=== PATIENT | female | born 1960 | race Caucasian/White ===

== ENCOUNTER 2024-02-09 10:17 | Outpatient (OUT) | payer MEDICARE, MEDICAID, SELFPAY ==
--- NOTE | 2024-02-09 | XR_ITS ---
The [place] [address] Patient Name: BILLY SEXTON MRN: [id number] date: 1960 Sex: F Assigned Patient Location: Current Patient Location: Accession/Order Number: [id number] Exam Date: 02/09/2024 11:00 Report Date: 02/10/2024 07:03 At the request of: BROOKS GONZALES Procedure: XR ankle FRANCESCO min 3V EXAMINATION: XR ankle FRANCESCO min 3V, XR foot FRANCESCO min 3V HISTORY: BILATERAL ANKLE PAIN COMPARISON: No relevant comparison available. FINDINGS: RIGHT FINDINGS: BONES: Prior ankle fusion utilizing a retrograde intramedullary nail extending through the calcaneus talus and tibia. Lucency surrounding the distal portion suggest loosening. Severe degenerative changes of the midfoot and hindfoot with marked bony remodeling and sclerosis consistent with neuropathic osteoarthropathy. Evidence of now removed hardware with multiple screw fragments throughout the midfoot and hindfoot. Fracture of 2 posterior screws extending through the calcaneus. Plantar plate. Single screw transfixing the first interphalangeal joint. Pes planus with plantar rotation of the hindfoot in relation to the midfoot SOFT TISSUES: Diffuse marked soft tissue swelling OTHER: Joint effusion LEFT FINDINGS: BONES: No acute fracture or dislocation. Moderate to severe degenerative changes of the midfoot with bony remodeling. Pes planus. Plantar rotation of the hindfoot in relation to the midfoot. Foreshortening of the first digit with likely removal of the first proximal phalanx. Resection of the fifth toe at the metatarsal phalangeal joint SOFT TISSUES: Negative. No visible soft tissue swelling. OTHER: Negative. 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
--- NOTE | 2024-02-09 | XR_ITS ---
The [place] [id number] Patient Name: BILLY SEXTON MRN: [id number] date: 1960 Sex: F Assigned Patient Location: Current Patient Location: Accession/Order Number: [id number] Exam Date: 02/09/2024 11:00 Report Date: 02/10/2024 07:03 At the request of: BROOKS GONZALES Procedure: XR foot FRANCESCO min 3V EXAMINATION: XR ankle FRANCESCO min 3V, XR foot FRANCESCO min 3V HISTORY: BILATERAL ANKLE PAIN COMPARISON: No relevant comparison available. FINDINGS: RIGHT FINDINGS: BONES: Prior ankle fusion utilizing a retrograde intramedullary nail extending through the calcaneus talus and tibia. Lucency surrounding the distal portion suggest loosening. Severe degenerative changes of the midfoot and hindfoot with marked bony remodeling and sclerosis consistent with neuropathic osteoarthropathy. Evidence of now removed hardware with multiple screw fragments throughout the midfoot and hindfoot. Fracture of 2 posterior screws extending through the calcaneus. Plantar plate. Single screw transfixing the first interphalangeal joint. Pes planus with plantar rotation of the hindfoot in relation to the midfoot SOFT TISSUES: Diffuse marked soft tissue swelling OTHER: Joint effusion LEFT FINDINGS: BONES: No acute fracture or dislocation. Moderate to severe degenerative changes of the midfoot with bony remodeling. Pes planus. Plantar rotation of the hindfoot in relation to the midfoot. Foreshortening of the first digit with likely removal of the first proximal phalanx. Resection of the fifth toe at the metatarsal phalangeal joint SOFT TISSUES: Negative. No visible soft tissue swelling. OTHER: Negative. 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
== END 2024-02-09 10:18 | disposition home or self-care (01) ==
LOC: EC 10:19
PROVIDERS: Visit Provider Podiatrist Foot & Ankle Surgery
DX: M79.672 Pain in left foot (principal); M25.572 Pain in left ankle and joints of left foot; M79.671 Pain in right foot; M25.571 Pain in right ankle and joints of right foot; Z98.890 Other specified postprocedural states
CPT/HCPCS: 73610; 73630

== ENCOUNTER 2024-03-01 08:32 | Outpatient (OUT) | payer MEDICARE, MEDICAID, SELFPAY ==
--- NOTE | 2024-03-01 08:34 | CT_ITS ---
[address] [address] Patient Name: BILLY SEXTON MRN: [facility]:[id number] date: 1960 Sex: F Assigned Patient Location: CT Current Patient Location: CT Accession/Order Number: [id number] Exam Date: 03/01/2024 08:45 Report Date: 03/01/2024 10:18 At the request of: BROOKS GONZALES Procedure: CT ankle RT wo con EXAMINATION: CT ankle RT wo con HISTORY: Charcot, Ankle Fusion Nonunion COMPARISON: 02/09/2024, CT exams 10/14/2023 TECHNIQUE: Multi-planar CT images were created without IV contrast. Dose reduction techniques were achieved by using automated exposure control and/or adjustment of mA and/or kV according to patient size and/or use of iterative reconstruction technique. FINDINGS: BONES: Stable posterior calcaneal osteotomy with bony fusion. Ankle fusion utilizing a retrograde intramedullary jennifer and proximally and distally. Lucency surrounds the jennifer, grossly stable from the prior exam. There is been interval fracture of 2 posterior fixation screws extending from the posterior calcaneus through the distal intramedullary jennifer. Stable remote resection of the fibula. Bone graft material evidenced by heterotopic calcifications. There remains a stable inferior fixation plate extending from the medial inferior talus along the inferior midfoot. There is been interval resection of the dorsal plate and partial removal of the screws. Marked degenerative changes of the midfoot and hindfoot consistent with known neuropathic osteoarthropathy SOFT TISSUES: Diffuse soft tissue swelling EFFUSION: Large ankle effusion OTHER: Negative. CT/CT ankle RT wo con IMPRESSION: Interval fracture of the 2 distal posterior ankle fusion screws fixing the distal intramedullary jennifer Interval removal of the dorsal fixation plate Stable degenerative changes consistent with known neuropathic osteoarthropathy Electronically authenticated by: MAYELA AGUILAR Date: 03/01/2024 10:18
--- NOTE | 2024-03-01 09:30 | CA_ITS ---
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 (right DAYNA 1.08, left DAYNA 1.04) Electronically Signed On 03-01-2024 23:24:31 EDT by VIVEK CALDERA
== END 2024-03-01 08:33 | disposition home or self-care (01) ==
LOC: CT 08:32
PROVIDERS: Visit Provider Podiatrist Foot & Ankle Surgery
DX: R09.89 Other specified symptoms and signs involving the circulatory and respiratory systems (principal); A52.16 Charcot's arthropathy (tabetic); M24.671 Ankylosis, right ankle
CPT/HCPCS: 73700; 93923

== ENCOUNTER 2024-03-03 12:49 | Outpatient (OUT) | payer MEDICARE, MEDICAID, SELFPAY | END 2024-03-03 12:50 | disposition home or self-care (01) | LOC: PST 12:49 | PROVIDERS: Visit Provider Podiatrist Foot & Ankle Surgery | DX: Z01.818 Encounter for other preprocedural examination (principal); E11.610 Type 2 diabetes mellitus with diabetic neuropathic arthropathy ==

== ENCOUNTER 2024-03-09 07:05 | Day surgery (SDC) | payer MEDICARE, MEDICAID, SELFPAY ==
[2024-03-09] VITALS (12 sets, daily range): BP systolic 124–161; BP diastolic 64–75; PULSE 63–91; TEMP 36.3–36.5; O2SAT 89–98; BMI 26.2
--- NOTE | 2024-03-09 | FL_ITS ---
[address] [address] Patient Name: BILLY SEXTON MRN: [id number] date: 1960 Sex: F Assigned Patient Location: [facility] Current Patient Location: [facility] Accession/Order Number: [id number] Exam Date: 03/09/2024 09:50 Report Date: 03/14/2024 07:55 At the request of: BROOKS GONZALES Procedure: FL fluoroscopy <1hr NON-READ EXAM: FL fluoroscopy <1hr NON-READ HISTORY: TECHNIQUE: FINDINGS: Please see Operative Report. Electronically authenticated by: RADIOLOGIST NO Date: 03/14/2024 07:55
[2024-03-09 07:30] LABS: Anion Gap 13.5; BUN Creatinine Ratio 28.3; Calcium 9.8 mg/dL (8.5-10.1); Carbon Dioxide 29.3 mmol/L (21.0-32.0); Chloride 102 mmol/L (98-107); Estimated GFR (African America 51 (>=60); Estimated GFR (Non-African Ame 42 (>=60); Glucose 143 mg/dL (74-106); Potassium 3.8 mmol/L (3.5-5.1); Sodium 141 mmol/L (136-145)
--- NOTE | 2024-03-09 07:30 | ECG_ITS ---
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
--- NOTE | 2024-03-09 08:16 | PC.NURSE ---
Non-weight bearing
[2024-03-09] MEDS: LACTATED RINGER'S SOLUTION 1,000 ML 50 ML IV ×2 (08:17→11:09)
[2024-03-09] MEDS: CLINDAMYCIN PHOSPHATE/D5W 900 MG/50 ML PIGGYBACK 100 MG IV (09:20)
--- NOTE | 2024-03-09 10:19 | P.ORON_ITS ---
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 [place] [facility] [place] [facility] complicated by infection which required removal of hardware from the midfoot, nonunion and need for operative debridement. She has not been on antibiotics for months and has not had wound, redness, swelling or evidence of infection. She was referred to me for possible revision. I related to the patient that she has a very complicated limb threatening issue in with a history of infection and nonunion is concern for chronic osteomyelitis therefore recommended bone biopsy prior to revision planning. I reviewed risks and benefits and all questions were answered to the patient's satisfaction Intraoperative findings: bone of the tibia was of normal color and cortex somewhat sclerotic. Likewise the talus and calcaneus were also healthy appearing and of normal color and quality but not sclerotic or as hard as the tibia. No purulence or evidence of acute infection PROCEDURES IN DETAIL: Patient was identified in pre op and consent was reviewed. Correct side and site were identified and marked. Pre-op antibiotics were started. Patient was brought to OR suite and place on table in a supine position. General anesthesia was administered. Tourniquet applied. Operative extremity was prepped and draped in usual sterile fashion. Formal time-out was performed and the foot/ankle were exsanguinated and tourniquet inflated. utilizing fluoroscopy a 1 cm incision was placed over the distal tibia and a combination sharp and blunt dissection gained access to the distal tibia and periosteum was reflected. A rongeur was used to remove a small portion of the cortical bone allowing a curet to access the medullary portion of the distal tibia metaphysis. Cancellus bone was obtained with curettes which was passed back table as specimen to be sent to microbiology and pathology. Utilizing fluoroscopy a 1 cm incision was placed over the lateral talus and a combination sharp and blunt dissection gained access to the distal tibia and periosteum was reflected. A rongeur was used to remove a small portion of the cortical bone allowing a curet to access the medullary portion of the distal tibia metaphysis. Cancellus bone was obtained with curettes which was passed back table as specimen to be sent to microbiology and pathology. Utilizing fluoroscopy a 1 cm incision was placed over the lateral calcaneus and a combination sharp and blunt dissection gained access to the distal tibia and periosteum was reflected. A rongeur was used to remove a small portion of the cortical bone allowing a curet to access the medullary portion of the distal tibia metaphysis. Cancellus bone was obtained with curettes which was passed back table as specimen to be sent to microbiology and pathology. all surgical sites were irrigated with copious saline then skin was closed with nonabsorbable suture. Tourniquet was deflated with a prompt hyperemic response A dry sterile dressing consisting of Xeroform on the incisions followed by 4 x 4 gauze, ABDs, Kerlix and Yuan wraps were applied. POSTOPERATIVE PLAN: Discharge home under family's care Post op instructions provided verbally and written prescription(s) were placed in chart WBAT operative foot/ankle in [facility] boot I will call the patient once microbiology and pathology results have returned for further planning Anesthesia: General-LMA Surgeon: Zuhair Grubbs Biochemistry Teacher: Mahesh Lozada Estimated blood loss (mL): 10 Pathology: other (bone from tibia, talus and calcaneus) Condition: stable Disposition: PACU
[2024-03-09] MEDS: MICROFIBRILLAR COLLAGEN 1 GM POWDER TOPICAL (10:57)
[2024-03-09] MEDS: BUPIVACAINE HCL 0.5% PF 50 MG/10 ML VIAL 20 ML INJ (11:07)
--- NOTE | 2024-03-09 11:15 | XR_ITS ---
The [address] [address] Patient Name: BILLY SEXTON MRN: [id number] date: 1960 Sex: F Assigned Patient Location: [facility] Current Patient Location: Accession/Order Number: [id number] Exam Date: 03/09/2024 13:28 Report Date: 03/10/2024 06:35 At the request of: JOJO LARA Procedure: XR foot RT min 3V PROCEDURE: XR ankle RT min 3V, XR foot RT min 3V HISTORY: postop xr pacu COMPARISON: XR bilateral ankle and foot 02/09/2024 FINDINGS: BONES:Mechanical fusion of the ankle joint and hindfoot via intramedullary jennifer and locking screws. Prior fracture of the calcaneal screws and multiple screw fragments within mid foot. Stable plate along the plantar medial aspect of the midfoot with prior fracture of the distal screw. Partially large ossification lung dorsal aspect of mid foot. Prior screw placement for fusion of the first toe interphalangeal joint. SOFT TISSUES:Soft tissue swelling anterior to the ankle and trace amount of subcutaneous air. EFFUSION:None visible. OTHER: Negative. XR/XR foot RT min 3V IMPRESSION: 1. Stable surgical changes and advanced degenerative changes. Multiple points of current and prior hardware failure; no new findings. 2. Anterior soft tissue swelling and trace amount subcutaneous air consistent with recent surgery. Electronically authenticated by: JOHN RAUSCH Date: 03/10/2024 06:35
--- NOTE | 2024-03-09 11:15 | XR_ITS ---
The [address] [address] Patient Name: BILLY SEXTON MRN: [id number] date: 1960 Sex: F Assigned Patient Location: [facility] Current Patient Location: Accession/Order Number: [id number] Exam Date: 03/09/2024 13:28 Report Date: 03/10/2024 06:35 At the request of: JOJO LARA Procedure: XR ankle RT min 3V PROCEDURE: XR ankle RT min 3V, XR foot RT min 3V HISTORY: postop xr pacu COMPARISON: XR bilateral ankle and foot 02/09/2024 FINDINGS: BONES:Mechanical fusion of the ankle joint and hindfoot via intramedullary jennifer and locking screws. Prior fracture of the calcaneal screws and multiple screw fragments within mid foot. Stable plate along the plantar medial aspect of the midfoot with prior fracture of the distal screw. Partially large ossification lung dorsal aspect of mid foot. Prior screw placement for fusion of the first toe interphalangeal joint. SOFT TISSUES:Soft tissue swelling anterior to the ankle and trace amount of subcutaneous air. EFFUSION:None visible. OTHER: Negative. XR/XR ankle RT min 3V IMPRESSION: 1. Stable surgical changes and advanced degenerative changes. Multiple points of current and prior hardware failure; no new findings. 2. Anterior soft tissue swelling and trace amount subcutaneous air consistent with recent surgery. Electronically authenticated by: JOHN RAUSCH Date: 03/10/2024 06:35
== END 2024-03-09 13:30 | disposition home or self-care (01) ==
PROVIDERS: Anesthesiology; Visit Provider Podiatrist Foot & Ankle Surgery
PROC: (CPT 01480; principal; 2024-03-09 08:30)
DX: E11.610 Type 2 diabetes mellitus with diabetic neuropathic arthropathy (principal); Z79.4 Long term (current) use of insulin; Z79.84 Long term (current) use of 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 drugs; Z79.899 Other long term (current) drug therapy; J45.909 Unspecified asthma, uncomplicated; M19.90 Unspecified osteoarthritis, unspecified site; Z87.891 Personal history of nicotine dependence; M21.071 Valgus deformity, not elsewhere classified, right ankle; M96.0 Pseudarthrosis after fusion or arthrodesis; T85.848A Pain due to other internal prosthetic devices, implants and grafts, initial encounter; T84.213A Breakdown (mechanical) of internal fixation device of bones of foot and toes, initial encounter
CPT/HCPCS: 01480; 20240 ×2; 20245; 36415; 73610; 73630; 76000; 80048; 87070; 87075; 87102; 87116; 87205; 87206; 88305; 88311; 93005; 99999; J1094; J2704

== ENCOUNTER 2024-03-29 07:21 | Outpatient (OUT) | payer MEDICARE, MEDICAID, SELFPAY ==
--- OUTSIDE RECORDS SUMMARY | 2024-03-29 07:25 | XMS_ITS | CCD ---
Author Organization [facility] Care Team Providers Care Product Manager Medical Device Name Role Phone Janette Collins Unavailable Unavailable Saridakis, Collins Unavailable Unavailable Kira Bennett Unavailable Unavailable Saridakis, Collins E Unavailable Unavailable Saridakis, Collins E Unavailable Unavailable Saridakis, Collins Unavailable Unavailable Dustin, [place] Unavailable Unavailable Saridakis, Collins Anoop Unavailable Unava ilable Saridaalbers, Collins E Primary Care Provider [phone] Jennifer, Dr. Fang Santos Attending U navailable Razzante, Dr. Fang Santos Referring U navailable Debs, Dr. Collins Orellana Primary Care Unavaila ble Razzantsahara, Dr. Fang Santos Admitting U navailable Razzante, Dr. Fang Santos Attending U navailable Richardzante, Dr. Fang Santos Referring U navailable Debs, Dr. Collins Orellana Primary Care Unavaila ble Razzantsahara, Dr. aFng Santos Admitting U navailable Razzante, Dr. Fang Santos Attending U navailable Debs, Dr. Collins Orellana Primary Care Unavaila ble Razzante, Dr. Fang Santos Attending U navailable Debs, Dr. Collins Orellana Primary Care Unavaila ble Razzantsahara, Dr. Fang Santos Attending U navailable Debs, Dr. Collins Orellana Primary Care Unavaila ble Richardzaalphonse, Dr. Fang Santos Attending U navailable Debs, Dr. Collins Orellana Primary Care Unavaila ble Razzantsahara, Dr. Fang Santos Attending U navailable Richardzante, Dr. Fang Santos Referring U navailable Debs, Dr. Collins Orellana Primary Care Unavaila ble Razzaalphonse, Dr. Fang Santos Admitting U navailable Razzante, Dr. Fang Santos Attending U navailable Razzante, Dr. Fang Santos Referring U navailable Debs, Dr. Collins Orellana Primary Care Unavaila ble Razzante, Dr. Fang Santos Admitting U navailable Razzante, Dr. Fang Santos Attending U navailable Razzante, Dr. Fang Santos Referring U navailable Debs, Dr. Collins Orellana Primary Care Unavaila ble Razzante, Dr. Fang Santos Admitting U navailable Janette El, DO, Collins Fernandez Primary Care Provid er Collins Andrews MD Primary Care Provider Collins Andrews MD Primary Care Provider MACARIO SANTOS Attending Unava ilable COLLINS SAVAGE JR E Primary Care Unavaila ble JENNIFER, FANG SANTOS Referring Unava ilable TOM, MACARIO ZUNIGA Referring Unava ilable COLLINS SAVAGE JR Primary Care Unavaila ble DANA GOYAL Attending Unavailable DEBS, COLLINS E Primary Care Unavailable TOM, MACARIO VENCESR Referring Unava ilable DEBS, COLLINS E Primary Care Unavailable MACARIO SANTOS Referring Unava ilable DEBS, COLLINS E Primary Care Unavailable TOM, MACARIO VENCESR Referring Unava ilable DEBS, COLLINS E Primary Care Unavailable MACARIO SANTOSR Referring Unava ilable COLLINS SAVAGE JR E Primary Care Unavaila ble MACARIO SANTOS Referring Unava ilable DEBS, COLLINS E Primary Care Unavailable WILIAM DANIELS Referring Unavailable DEBS, COLLINS E Primary Care Unavailable CLOCARLY, MACARIO VENCESR Referring Unava ilable DEBS, COLLINS E Primary Care Unavailable MACARIO SANTOSR Referring Unava ilable MACARIO SANTOSR Attending Unava ilable LAURIES, COLLINS E Primary Care Unavailable MACARIO SANTOSR Referring Unava ilable DEBS, COLLINS E Primary Care Unavailable MACARIO SANTOSR Referring Unava ilable MACARIO SANTOSR Attending Unava ilable DEBS, COLLINS E Primary Care Unavailable GOYAL, DANA Referring Unavailable DEBS, COLLINS E Primary Care Unavailable GOYAL, DANA Referring Unavailable DEBS, COLLINS E Primary Care Unavailable CLOUGHERTY, MACARIO VENCESR Attending Unava ilable CLOUGHERTY, MACARIO VENCESR Referring Unava ilable DEBS, COLLINS E Primary Care Unavailable GOYAL, DANA Referring Unavailable DEBS, COLLINS E Primary Care Unavailable GOYAL, DANA Referring Unavailable DEBS, COLLINS E Primary Care Unavailable CLOUGHERTY, WATSON ODELL Attending Unava ilable CLOUGHERTY, WATSON ODELL Referring Unava ilable DEBS, COLLINS E Primary Care Unavailable CLOUGHERTY, WATSON ODELL Referring Unava ilable DEBS, COLLINS E Primary Care Unavailable CLOUGHERTY, WATSON ODELL Referring Unava ilable DEBS, COLLINS E Primary Care Unavailable CLOUGHERTY, WATSON ODELL Attending Unava ilable LAURIES, COLLINS E Primary Care Unavailable Lauries Collins CRUMP Primary Care Provider [phone] MACARIO SANTOS Attending Unava ilable CLOUGHERTY, WATSON ODELL Admitting Unava ilable COLLINS SAVAGE JR Primary Care Unavaila ble [employer] Unavailable DEBS, COLLINS E Primary Care Unavailable CLOUGHERTY, WATSON ODELL Referring Unava ilable CLOUGHERTY, WATSON ODELL Attending Unava ilable LEXY, COLLINS E Primary Care Unavailable DEBS, COLLINS E Primary Care Unavailable CLOUGHERTY, WATSON ODELL Attending Unava ilable RAFIAERTY, WATSON ODELL Referring Unava ilable COLLINS SAVAGE JR Primary Care Unavaila ble CLOUGHERTY, WATSON ODELL Referring Unava ilable CLOUGHERTY, WATSON ODELL Attending Unava ilable DEBS, COLLINS E Primary Care Unavailable DEBS, COLLINS E Primary Care Unavailable CLOUGHERTY, WATSON ODELL Referring Unava ilable CLOUGHERTY, WATSON ODELL Attending Unava ilable LEXY, COLLINS E Primary Care Unavailable CLOUGHERTY, WATSON ODELL Admitting Unava ilable CLOUGHERTY, WATSON ODELL Attending Unava ilFLASH Walters Attending Provider [phone] COLLINS ANDREWS Primary Care Unavailable LEXY, COLLINS E Primary Care Unavailable Zuhair Grubbs Admitting Unavailable Zuhair Grubbs Attending Unavailable Allergies Allergy Classification Reported Allergen(s) Allergy Type Date of Onset Reaction(s) Facility (20 sources) Codeine Drug Allergy 8 GI Upset [facility] 1057 Work Phone: (9 sources) Meperidine Drug Allergy [facility] 1057 Work Phone: (20 sources) Meperidine; Translations: [MEPERIDINE (PF)] Drug Allergy 8 Other: See Comments [facility] (20 sources) Morphine; Translations: [MORPHINE] Drug Allergy 1 Itching [facility] (13 sources) Amoxicillin / Clavulanate; Translations: [AMOXICILLIN-PO T CLAVULANATE] Drug Allergy 3 GI Upset [facility] (13 sources) Doxycycline; Translations: [DOXYCYCLINE] Drug Allergy 3 GI [facility] (2 sources) Codeine; Translations: [CODEINE] Drug Allergy 8 [facility] (1 source) ALLERGIES NOT ON FILE; Translations: [ALLERGIES NOT ON FILE] Propensity to adverse reactions (disorder) [facility] Medications Current Medications Medication Drug Class(es) Dates Sig (Normalized) Sig (Original) acetaminophen 325 mg / oxyCODONE hydrochloride 5 mg oral tablet (20 sources) Opioid Agonist Start: 02-29-2024 End: 03-07-2024 take 1 tablet by mouth four times daily as needed for pain oxyCODONE-acetami nophen (PERCOCET) 5-325 mg tablet Indications: Charcot ankle, right Take 1 tablet by mouth four times a day as needed for pain for up to 7 days. 28 tablet 0 02/29/2024 03/07/2024 Active Start: 01-26-2024 End: 02-02-2024 take 1 tablet by mouth four times daily as needed for pain oxyCODONE-acetaminophen (PERCOCET) 5-325 mg tablet Indications: Charcot ankle, right Take 1 tablet by mouth four times a day as needed for pain for up to 7 days. 28 tablet 0 01/26/2024 02/02/2024 Active Start: 01-11-2024 End: 01-18-2024 take 1 tablet by mouth four times daily as needed for pain oxyCODONE-acetaminophen (PERCOCET) 5-325 mg tablet Indications: Charcot ankle, right Take 1 tablet by mouth four times a day as needed for pain for up to 7 days. 28 tablet 0 01/11/2024 01/18/2024 Active Start: 12-29-2023 End: 01-05-2024 take 1 tablet by mouth four times daily as needed for pain oxyCODONE-acetaminophen (PERCOCET) 5-325 mg tablet Indications: Charcot ankle, right Take 1 tablet by mouth four times a day as needed for pain for up to 7 days. 28 tablet 0 12/29/2023 01/05/2024 Active Start: 12-16-2023 End: 12-23-2023 take 1 tablet by mouth four times daily as needed for pain oxyCODONE-acetaminophen (PERCOCET) 5-325 mg tablet Indications: Charcot ankle, right Take 1 tablet by mouth four times a day as needed for pain for up to 7 days. 28 tablet 0 12/16/2023 12/23/2023 Active Start: 06-21-2023 End: 07-21-2023 take 1 tablet by mouth every six hours as needed for pain oxyCODONE-acetaminophen (PERCOCET) 5-325 mg tablet Indications: Charcot ankle, right Take 1 tablet by mouth every 6 hours as needed for pain. 30 tablet 0 07/07/2023 07/21/2023 Discontinued Start: 06-03-2023 End: 06-17-2023 take 1 tablet by mouth every six hours as needed for pain oxyCODONE-acetaminophen (PERCOCET) 5-325 mg tablet Indications: Charcot ankle, right Take 1 tablet by mouth every 6 hours as needed for pain. 30 tablet 0 06/03/2023 06/17/2023 Discontinued Start: 05-25-2023 End: 06-03-2023 take 1 tablet by mouth every six hours as needed for arthritis and arthritis oxyCODONE-acetaminophen (PERCOCET) 5-325 mg tablet Indications: Arthritis Take 1 tablet by mouth four times daily as needed for pain. 40 tablet 0 05/25/2023 06/03/2023 Discontinued Start: 05-17-2023 take 1 tablet by destiney th every six hours as needed for arthritis and arthritis oxyCODONE-acetaminophen (PERCOCET) 5-325 mg tablet Indications: Arthritis Take 1 tablet by mouth four times daily as needed for pain. 40 tablet 0 05/17/2023 Active Comment on above: Take 1 tablet by destiney th four times daily as needed for pain. Take 1 tablet by destiney every 6 hours as needed for pain. Take 1 tablet by destiney th four times a day as needed for pain for up to 7 days. Completed/Discontinued Medications Medication Drug Class(es) Dates Sig (Normalized) Sig (Original) acetaminophen 300 mg / HYDROcodone bitartrate 7.5 mg oral tablet (10 sources) Opioid Agonist Start: 04-24-2014 HYDROCODONE-ACETA MINOPHEN 7.5-300 mg tab [id number] 200 actuat albuterol 0.09 mg/actuat metered dose inhaler (20 sources) beta2-Adrenergic Agonist Start: 09-13-2023 take 1-2 puff(s) by mouth every four hours as needed albuterol HFA (PROVENTIL HFA, VENTOLIN HFA) 90 mcg/actuation inhaler inhale 1 to 2 puffs by mouth every 4 hours as needed 0 09/13/2023 Active Start: 02-22-2015 take 2 puff(s) by mo [facility] four times daily as needed Ventolin HFA 108 (90 Base) MCG/ACT Inhalation Aerosol Solution INHALE TWO PUFF BY MOUTH FOUR TIMES A DAY NEEDED Quantity: 1 Refills: 6 Collins Savage DO Start : 22-Feb-2015 Active 18 GM Inhaler albuterol HFA (P ROVENTIL HFA, VENTOLIN HFA) 90 mcg/actuation inhaler Inhale 2 Puffs as instructed as needed. 0 Active Comment on above: Inhale 2 Puffs as in structed as needed. inhale 1 to 2 puffs by mouth every 4 hours as needed albuterol HFA (VENTOLIN HFA) 90 mcg/Actuation INHALATION inhaler (1 source) albuterol HFA (VENTOLIN HFA) 90 mcg/Actuation INHALATION inhaler Inhale 2 Puffs as instructed as needed. 0 Active Comment on above: Inhale 2 Puffs as in structed as needed. Ascorbic Acid (5 sources) Vitamin C ascorbic acid (VITAMIN C ORAL) Take by mouth. 0 Active Comment on above: Take by mouth. aspirin 81 mg delayed release oral tablet (15 sources) Platelet Aggregation Inhibitor, Nonsteroidal Anti-inflammatory Drug Start: 05-17-20 End: 06-16-20 23 take 1 tablet by mouth once daily aspirin, enteric coated (ADULT LOW DOSE ASPIRIN) 81 mg EC tablet Take 1 tablet by mouth once daily. 30 tablet 0 05/17/2023 Active Comment on above: Take 1 tablet by destiney once daily. azithromycin 250 mg oral tablet (4 sources) Macrolide Antimicrobial Start: 11-20-19 Azithromycin 250 MG Oral Tablet Take 2 tablets today, then 1 tablet daily for 4 days Quantity: 1 Refills: 0 Collins Savage DO Start : 20-Nov-2019 Active 6 Tablet Pack biotin 10 mg oral capsule (20 sources) Biotin 10,000 mc g cap Take by mouth. 0 Active Biotin CAPS Refi lls: 0 DO Active Biotin CAPS Refi lls: 0 Active Comment on above: Take by mouth. 60 actuat budesonide 0.16 mg/actuat / formoterol fumarate 0.0045 mg/actuat metered dose inhaler (20 sources) Corticosteroid, beta2-Adrenergic Agonist Start: 02-22-2015 take 2 puff(s) by mouth twice daily Symbicort 160-4.5 MCG/ACT Inhalation Aerosol INHALE 2 PUFFS TWICE DAILY. RINSE MOUTH AFTER USE. Quantity: 1 Refills: 3 Collins Savage DO Start : 22-Feb-2015 Active 10.2 GM Inhaler take 2 puff(s) by in halation twice daily as needed budesonide-formoterol (SYMBICORT) 160-4. 5 mcg/actuation inhaler Inhale 2 Puffs as instructed two times a day. Only uses PRN 0 Active budesonide-formo terol (SYMBICORT) 160-4.5 mcg/actuation inhaler Inhale 2 Puffs as instructed as needed. 0 Active budesonide-formo terol (SYMBICORT) 160-4.5 mcg/Actuation INHALATION inhaler Inhale 2 Puffs as instructed as needed. 0 Active Comment on above: Inhale 2 Puffs as in structed as needed. Inhale 2 Puffs as in structed two times a day. Only uses PRN cephalexin 500 mg oral capsule (14 sources) Cephalosporin Antibacterial Start: 04-24-20 End: 05-12-20 take 1 capsule by mouth three times daily cephALEXin 500 mg capsule Take 1 capsule by mouth three times daily. 21 capsule 0 04/24/2014 05/12/2023 Discontinued Comment on above: Take 1 capsule by mo [facility] three times daily. cholecalciferol 0.025 mg oral capsule (20 sources) Vitamin D take 1 capsule by mouth once daily Cholecalciferol, Vitamin D3, 25 mcg (1,000 unit) cap Take 1,000 Units by mouth once daily. 0 Active Cholecalciferol, Vitamin D3, (VITAMIN D) 25 mcg (1,000 unit) cap Take 1,000 Units by mouth once daily. 0 Active Comment on above: Take 1,000 Units by mouth once daily. cinnamon bark 500 mg oral capsule (1 source) take 1 capsule by mouth four times daily Cinnamon 500 MG Oral Capsule TAKE 1 CAPSULE 4 TIMES DAILY Refills: 0 Active CINNAMON BARK-CHROMIUM PICOLIN ORAL (20 sources) take 2000 mg by mouth twice daily CINNAMON BARK-CHROMIUM PICOLIN ORAL Take 2,000 mg by mouth twice daily. 0 Active Comment on above: Take 2,000 mg by [facility] twice daily. cyclobenzaprine hydrochloride 10 mg oral tablet (14 sources) Muscle Relaxant Start: 06-21-20 End: 08-05-20 take 0.5 tablet by mouth three times daily cyclobenzaprine (FLEXERIL) 10 mg tablet Take 0.5 tablets by mouth three times daily. 40 tablet 0 06/21/2023 08/05/2023 Discontinued Start: 05-17-2023 End: 06-17-2023 take 0.5 tablet by mouth three times daily cyclobenzaprine (FLEXERIL) 10 mg tablet Take 0.5 tablets by mouth three times daily. 40 tablet 0 05/17/2023 06/17/2023 Discontinued Comment on above: Take 0.5 tablets by mouth three times daily. Disability Placard (9 sources) Start: 03-21-20 15 Disability Placard Disability Placard 5 year term Quantity: 1 Refills: 0 Collins Savage DO Start : 21-Mar-2015 Active fenofibrate 145 mg oral tablet (5 sources) Peroxisome Proliferator Receptor alpha Agonist Start: 10-26-20 23 take 1 tablet by mouth once fenofibrate nanocrystallized (TRICOR) 145 mg tablet Take 1 tablet by mouth every afternoon. 0 10/26/2023 Active Comment on above: Take 1 tablet by destiney th every afternoon. FLUoxetine 10 mg oral capsule (20 sources) Serotonin Reuptake Inhibitor Start: 07-05-20 17 take 1 capsule by mouth once daily FLUoxetine (PROZAC) 10 mg capsule Take 10 mg by mouth once daily. 0 07/05/2017 Active Start: 07-05-2017 FLUoxetine (SD OZAC) 40 mg capsule Take by mouth. 0 07/05/2017 Active Comment on above: Take by mouth. Take 10 mg by mouth once daily. 30 actuat fluticasone furoate 0.2 mg/actuat / vilanterol 0.025 mg/actuat dry powder inhaler (3 sources) Corticosteroid, beta2-Adrenergic Agonist Start: 0 take 1 puff(s) by inhalation once daily Breo Ellipta 200-25 MCG/INH Inhalation Aerosol Powder Breath Activated INHALE 1 PUFFS Daily Quantity: 1 Refills: 9 Collins Savage DO Start : 12-Mar-2020 Active 60 Each Pack gabapentin 800 mg oral tablet (20 sources) Anti-epileptic Agent Start: 1 take 2 tablets by mouth at bedtime gabapentin (NEURONTIN) 800 mg tablet Indications: neuropathic pain Take 800 mg by mouth. 1 tablet in the morning, 1 tablet in the afternoon, and 2 tablets at bedtime 0 02/24/2021 Active Start: 02-24-2021 gabapentin 300 mg ORAL capsule Indications: neuropathic pain Take 800 mg by mouth once daily. PATIENT STATES SHE TAKES ONE TO FOUR TIMES A DAY 0 02/24/2021 Active Start: 01-31-2016 take 1 tablet by destiney th four times daily Gabapentin 800 MG Oral Tablet TAKE 1 TABLET BY MOUTH 4 TIMES DAILY Quantity: 120 Refills: 1 Collins Savage DO Start : 31-Jan-2016 Active Start: 04-12-2014 take 4 capsules by m outh twice daily in the evening gabapentin 300 mg ORAL capsule Indications: neuropathic pain Take 300 mg by mouth twice daily. PATIENT STATES SHE TAKES TWO IN AM AND FOUR IN THE EVENING Indications: NEUROPATHIC PAIN 0 04/12/2014 Active Comment on above: Take 300 mg by mouth twice daily. PATIENT STATES SHE TAKES TWO IN AM AND FOUR IN THE EVENING Indications: NEUROPATHIC PAIN Take 800 mg by mouth once daily. PATIENT STATES SHE TAKES ONE TO FOUR TIMES A DAY Take 800 mg by mouth . 1 tablet in the morning, 1 tablet in the afternoon, and 2 tablets at bedtime hydroCHLOROthiazide 25 mg oral tablet (20 sources) Thiazide Diuretic Star t: 05-15 14 take 1 tablet by mouth once daily hydroCHLOROthiazide 25 MG Oral Tablet take 1 tablet by mouth once daily Quantity: 30 Refills: 9 Collins Savage DO Start : 01-Jun-2014 Active Comment on above: Take 25 mg by mouth once daily. ibuprofen 200 mg oral tablet (1 source) Nonsteroidal Anti-inflammatory Drug take 2 tablets by mouth every six hours as needed ibuprofen (ADVIL) 200 mg ORAL tablet Take 400 mg by mouth every 6 hours as needed. 0 Active Comment on above: Take 400 mg by mouth every 6 hours as needed. insulin aspart protamine, human 70 unt/ml / insulin aspart, human 30 unt/ml injectable suspension (9 sources) Insulin Analog Star t: 04-16 21 insulin 70-30 aspart protamine-aspart (NOVOLOG MIX 70/30) 100 units/mL injection INJECT 26 UNITS TWICE DAILY SUBCUTANEOUSLY 0 05/08/2021 Active Comment on above: INJECT 26 UNITS TWIC E DAILY SUBCUTANEOUSLY insulin glargine 100 unt/ml injectable solution (20 sources) Insulin Analog Star t: 04-16 14 inject 70 [IU] by subcutaneous injection once daily Lantus 100 UNIT/ML Subcutaneous Solution INJECT 70 UNITS SUBCUTANEOUSLY DAILY Quantity: 3 Refills: 10 Collins Savage DO Start : 10-May-2014 Active 10 ML Vial Start: 11-20-2013 LANTUS 100 uni t/mL injection Indications: diabetes mellitus 55 Units daily at bedtime. 0 11/20/2013 Active Start: 11-20-2013 LANTUS 100 uni t/mL injection Indications: diabetes mellitus 70 Units daily at bedtime. Indications: DIABETES MELLITUS 0 11/20/2013 Active Comment on above: 70 Units daily at be dtime. Indications: DIABETES MELLITUS 55 Units daily at be dtime. insulin lispro protamin/lispro (HUMALOG MIX 75-25,U-100,INSULN SUBCUTANEOUS) (20 sources) insulin lispro protamin/lispro (HUMALOG MIX 75-25,U-100,INSULN SUBCUTANEOUS) Inject 20 Units subcutaneously three times daily with meals. 0 Active Comment on above: Inject 20 Units subc utaneously three times daily with meals. INSULIN REGULAR, HUMAN (HUMULIN R INJECTION) (10 sources) INSULIN REGULAR, HUMAN (HUMULIN R INJECTION) 20 Units by INJECTION(UNSPECIFIE D PARENTERAL ROUTES) route three times daily with meals. 0 Active Comment on above: 20 Units by INJECTIO N(UNSPECIFIED PARENTERAL ROUTES) route three times daily with meals. INSULIN SYRINGE-NEEDLE U-100 1 mL 29 x 1/2 syrg (20 sources) Start: 2012 INSULIN SYRINGE-NEEDLE U-100 1 mL 29 x 1/2 syrg insulin human, isophane 70 unt/ml / regular insulin, human 30 unt/ml injectable suspension (9 sources) Insulin Start: 2013 inject 20 [IU] by subcutaneous injection three times daily, then inject 100 [IU] by subcutaneous injection HumuLIN 70/30 (70-30) 100 UNIT/ML Subcutaneous Suspension Inject 20 units subcutaneously three times daily Quantity: 3 Refills: 10 Collins Savage DO Start : 05-Jul-2014 Active 10 ML Vial levothyroxine sodium 0.1 mg oral tablet (20 sources) l-Thyroxine Start: 2013 LEVOTHYROXINE 100 mcg tablet 100 mcg daily before breakfast. 0 12/11/2013 Active Comment on above: 100 mcg daily before breakfast. meloxicam 15 mg oral tablet (20 sources) Nonsteroidal Anti-inflammatory Drug Start: 2023 take 1 tablet by mouth once daily meloxicam (MOBIC) 15 mg tablet Take 1 tablet by mouth once daily 30 tablet 0 11/22/2023 Active Start: 08-05-2023 End: 10-26-2023 take 1 tablet by mouth once daily meloxicam (MOBIC) 15 mg tablet Take 1 tablet by mouth once daily 30 tablet 0 10/26/2023 Active Start: 05-13-2021 End: 05-07-2023 take 1 tablet by mouth once daily meloxicam (MOBIC) 15 mg tablet Indications: Greater trochanteric bursitis of right hip Take 1 tablet by mouth once daily. 28 tablet 0 05/13/2021 05/07/2023 Discontinued (Course of therapy completed) Start: 12-11-2013 MELOXICAM 15 m g tablet Comment on above: Take 1 tablet by destiney th once daily. Take 1 tablet by destiney th once daily metFORMIN hydrochloride 1000 mg oral tablet (20 sources) Biguanide Start: 03-28-2014 take 1 tablet by mouth every twelve hours metFORMIN HCl - 1000 MG Oral Tablet TAKE 1 TABLET EVERY 12 HOURS. Quantity: 60 Refills: 10 Collins Savage DO Start : 28-Mar-2014 Active take 1 tablet by destiney th twice daily at mealtime metFORMIN 1,000 mg ORAL tablet Take 1,00 0 mg by mouth twice daily with meals. 0 Active Comment on above: Take 1,000 mg by destiney th twice daily with meals. omega-3 acid ethyl esters (fdc) 1000 mg oral capsule (20 sources) omega-3 acid eth yl esters (LOVAZA) 1 gram capsule Take 1 g by mouth twice daily. 0 Active omega-3 acid eth yl esters (LOVAZA) 1 gram capsule Take by mouth. 0 Active Comment on above: Take by mouth. Take 1 g by mouth tw ice daily. QUEtiapine 50 mg oral tablet (9 sources) Atypical Antipsychotic Start: 03-21-20 15 take 2 tablets by mouth once daily QUEtiapine Fumarate 50 MG Oral Tablet TAKE 2 TABLET Daily Quantity: 60 Refills: 10 Collins Savage DO Start : 21-Mar-2015 Active traMADol hydrochloride 50 mg oral tablet (20 sources) Opioid Agonist Start: 09-06-20 End: 12-29-19 24 take 1 tablet by mouth every six hours as needed for pain traMADol (ULTRAM) 50 mg tablet Indications: Post-op pain Take 1 tablet by mouth every 6 hours as needed for pain. for pain. 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 for pain. 28 tablet 0 08/05/2023 09/06/2023 Discontinued Start: 07-21-2023 End: 08-05-2023 take 1 tablet by mouth every six hours as needed for pain traMADol (ULTRAM) 50 mg tablet Indications: Charcot ankle, right Take 1 tablet by mouth every 6 hours as needed for pain. for pain. 28 tablet 0 07/21/2023 08/05/2023 Discontinued Start: 03-21-2015 take 2 tablets by mo uth four times daily traMADol HCl - 50 MG Oral Tablet TAKE 2 TABLETS 4 TIMES DAILY. Quantity: 240 Refills: 1 Collins Savage DO Start : 21-Mar-2015 Active Comment on above: Take 1 tablet by destiney th every 6 hours as needed for pain. for pain. Take 1 tablet by destiney th every 4 hours as needed for pain. for pain. Take 1 tablet by destiney th every 6 hours as needed for pain. traZODone hydrochloride 50 mg oral tablet (10 sources) Serotonin Reuptake Inhibitor Start: take 1 tablet by mouth once daily at bedtime TRAZODONE 50 mg tablet Take 50 mg by mouth daily at bedtime. 0 12/14/2013 Active Comment on above: Take 50 mg by mouth daily at bedtime. turmeric extract 500 mg oral capsule (20 sources) TURMERIC ORAL Ta ke 500 mg by mouth. 0 Active turmeric ([facility]) Comment on above: Take 500 mg by mouth . vit B complex no.12/niacin,B3, (VITAMIN B COMPLEX NO.12-NIACIN ORAL) (20 sources) vit B complex no.12/niacin,B3, (VITAMIN B COMPLEX NO.12-NIACIN ORAL) Take 2,500 mg by mouth. 0 Active Comment on above: Take 2,500 mg by destiney th. VITAMIN A ORAL (5 sources) VITAMIN A ORAL T alberto by mouth. 0 Active Comment on above: Take by mouth. VITAMIN K2 ORAL (5 sources) VITAMIN K2 ORAL Take by mouth. 0 Active Comment on above: Take by mouth. zolpidem tartrate 5 mg oral tablet (20 sources) gamma-Aminobutyric Acid-ergic Agonist Start: 04-24-2014 take 1 tablet by mouth every twenty-four hours as needed zolpidem (AMBIEN) 5 mg tablet Take 1 tablet by mouth at bedtime as needed (for insomnia.). 7 tablet 0 04/24/2014 Active Start: 12-11-2013 take 1 tablet by destiney th once daily at bedtime ZOLPIDEM 10 mg tab Take 10 mg by mouth daily at bedtime. 0 12/11/2013 Active Comment on above: Take 10 mg by mouth daily at bedtime. Take 1 tablet by destiney th at bedtime as needed (for insomnia.). Problems Active Problems Problem Classification Problem Date Documented Da te Episodic/Chronic Acquired foot deformities (1 source) Other hammer toe(s) (acquired), right foot; Translations: [Other hammer toe(s) (acquired), right foot] Onset: 08-21-2022 Chronic Acquired foot deformities (20 sources) Acquired deformity of joint of big toe; Translations: [Valgus deformity, not elsewhere classified, right ankle] Onset: 06-05-2022 12-21-2013 Episodic Acute bronchitis (4 sources) Acute bronchitis; Translations: [Acute bronchitis] Episodic Anxiety disorders (20 sources) Anxiety; Translations: [Mixed anxiety and depressive disorder] Onset: 08-21-2022 05-17-2023 Chronic Asthma (20 sources) Unspecified asthma, uncomplicated; Translations: [Intermittent asthma] Onset: 03-22-2023 Chronic Blindness and vision defects (2 sources) Unspecified visual loss; Translations: [Visual impairment] Onset: 03-22-2023 03-29-2023 Chronic Chronic kidney disease (1 source) Chronic kidney disease, unspecified; Translations: [Chronic kidney disease, unspecified] Onset: 03-17-2023 Chronic Chronic obstructive pulmonary disease and bronchiectasis (3 sources) Chronic bronchitis; Translations: [Chronic bronchitis] Chronic Chronic ulcer of skin (12 sources) Ulcer of foot; Translations: [Non-pressure chronic ulcer of right heel and midfoot with fat layer exposed] Onset: 08-21-2022 Chronic Complication of device; implant or graft (7 sources) Breakdown (mechanical) of other internal orthopedic devices, implants and grafts, initial encounter; Translations: [Breakdown (mechanical) of internal fixation device of bones of foot and toes, initial encounter] Onset: 08-21-2022 Episodic Diabetes mellitus with complications (20 sources) Type II diabetes mellitus uncontrolled; Translations: [Diabetic foot ulcer] Onset: 12-21-2013 12-21-2013 Chronic Diabetes mellitus without complication (15 sources) Type 2 diabetes mellitus; Translations: [Type 2 diabetes mellitus without complications] Onset: 08-10-2022 11-03-2023 Chronic Diabetes or abnormal glucose tolerance complicating ; childbirth; or the puerperium (10 sources) Diabetes mellitus of mother, complicating , childbirth, or the puerperium, unspecified as to episode of care or not applicable; Translations: [Diabetes mellitus of mother, complicating , childbirth, or the puerperium, unspecified as to episode of care(648.00)] 12-21-2013 Chronic Disorders of lipid metabolism (18 sources) Hypercholesterolemia ; Translations: [Hyperlipidemia, unspecified] Onset: 03-22-2023 03-29-2023 Chronic Essential hypertension (20 sources) Hypertensive disorder; Translations: [Essential (primary) hypertension] Onset: 08-21-2022 12-21-2013 Chronic Fracture of lower limb (2 sources) Nondisplaced fracture of body of right calcaneus, sequela; Translations: [Unspecified fracture of right foot, subsequent encounter for fracture with nonunion] Onset: 01-05-2023 Episodic Hypertension with complications and secondary hypertension (1 source) Hypertensive chronic kidney disease with stage 1 through stage 4 chronic kidney disease, or unspecified chronic kidney disease; Translations: [Hypertensive chronic kidney disease w stg 1-4/unsp chr kdny] Onset: 03-17-2023 Chronic Joint disorders and dislocations; trauma-related (11 sources) Subluxation of right ankle joint, initial encounter; Translations: [Subluxation of right ankle joint, subsequent encounter] Onset: 08-10-2022 Episodic Joint disorders and dislocations; trauma-related (3 sources) Subluxation of left ankle joint, subsequent encounter; Translations: [Subluxation of ankle joint] Onset: 03-22-2023 03-29-2023 Episodic Menopausal disorders (9 sources) Atrophy of vagina; Translations: [Vaginal atrophy] Chronic Mood disorders (10 sources) Mood disorder; Translations: [Depressive disorder] 03-29-2023 Chronic Mood disorders (1 source) Mood disorders; Translations: [Depression, unspecified] Onset: 03-22-2023 Nutritional deficiencies (2 sources) Vitamin D deficiency, unspecified; Translations: [Vitamin D deficiency, unspecified] Onset: 11-26-2023 Chronic Osteoarthritis (20 sources) Arthritis; Translations: [Unspecified osteoarthritis, unspecified site] Onset: 05-06-2021 12-21-2013 Chronic Other acquired deformities (3 sources) Contracture, right ankle; Translations: [Contracture, right ankle] Onset: 01-05-2023 Chronic Other acquired deformities (1 source) Ankle joint deformity; Translations: [Unspecified acquired deformity of right lower leg] Episodic Other aftercare (1 source) senior living (current) use of 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 drugs; Translations: [senior living (current) use of 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 drugs] Onset: 03-22-2023 Episodic Other aftercare (2 sources) senior living (current) use of insulin; Translations: [runner out (current) use of insulin] Onset: 03-17-2023 Episodic Other aftercare (1 source) Other alf (current) drug therapy; Translations: [Other alf (current) drug therapy] Onset: 03-17-2023 Episodic Other aftercare (1 source) Long-term current use of 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 medication; Translations: [runner out (current) use of 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 drugs] 03-29-2023 Episodic Other bone disease and musculoskeletal deformities (6 sources) Bone necrosis; Translations: [Osteonecrosis, unspecified] Onset: 11-25-2023 Chronic Other bone disease and musculoskeletal deformities (1 source) Osteonecrosis, unspecified; Translations: [Osteonecrosis (HCC)] Onset: 11-25-2023 Chronic Other bone disease and musculoskeletal deformities (3 sources) Avascular necrosis of bone; Translations: [Osteonecrosis, unspecified] Onset: 11-25-2023 11-25-2023 Chronic Other bone disease and musculoskeletal deformities (2 sources) Disorder of bone; Translations: [Disorder of bone, unspecified] 07-02-2023 Episodic Other circulatory disease (9 sources) H/O: hypertension; Translations: [History of hypertension] Episodic Other connective tissue disease (9 sources) Foot pain; Translations: [Neuropathic pain of both feet] Episodic Other ear and sense organ disorders (1 source) Unspecified hearing loss, unspecified ear; Translations: [Unspecified hearing loss, unspecified ear] Onset: 03-22-2023 Chronic Other ear and sense organ disorders (1 source) Hearing loss; Translations: [Unspecified hearing loss, unspecified ear] 03-29-2023 Chronic Other gastrointestinal disorders (20 sources) Irritable bowel syndrome; Translations: [Irritable bowel syndrome without diarrhea] 12-21-2013 Chronic Other gastrointestinal disorders (1 source) Irritable bowel syndrome without diarrhea; Translations: [Irritable bowel syndrome without diarrhea] Onset: 03-22-2023 Chronic Other nervous system disorders (9 sources) Peripheral nerve disease ; Translations: [Peripheral neuropathy] Chronic Other nervous system disorders (20 sources) Neuropathy; Translations: [Polyneuropathy, unspecified] 12-21-2013 Chronic Other nervous system disorders (1 source) Polyneuropathy, unspecified; Translations: [Polyneuropathy, unspecified] Onset: 08-10-2022 Chronic Other nervous system disorders (9 sources) Difficulty walking; Translations: [Difficulty in walking, not elsewhere classified] Onset: 05-06-2021 05-06-2021 Chronic Other nervous system disorders (3 sources) Postoperative pain ; Translations: [Other acute postprocedural pain] 09-06-2023 Episodic Other non-traumatic joint disorders (6 sources) Charcot's joint, right ankle and foot; Translations: [Charcot's joint, right ankle and foot] Onset: 01-05-2023 Chronic Other non-traumatic joint disorders (20 sources) Charcot's arthropathy; Translations: [Charcot's joint, right ankle and foot] Onset: 05-17-2023 Chronic Other non-traumatic joint disorders (1 source) Osteophyte, right foot; Translations: [Osteophyte, right foot] Onset: 01-08-2023 Episodic Other nutritional; endocrine; and metabolic disorders (9 sources) H/O: diabetes mellitus; Translations: [History of diabetes mellitus] Episodic Other nutritional; endocrine; and metabolic disorders (9 sources) H/O: raised blood lipids; Translations: [History of hyperlipidemia] Episodic Other screening for suspected conditions (not mental disorders or infectious disease) (16 sources) Thyroid function tests abnormal; Translations: [Cancer cervix - screening done] Episodic Other skin disorders (1 source) Hypertrophic scar; Translations: [Hypertrophic scar] Onset: 01-08-2023 Episodic Peripheral and visceral atherosclerosis (8 sources) Peripheral vascular disease, unspecified; Translations: [Peripheral vascular disease, unspecified] Onset: 01-08-2023 Chronic Residual codes; unclassified (2 sources) Orthopedic hardware in situ; Translations: [Presence of functional implant, unspecified] Chronic Residual codes; unclassified (20 sources) Insomnia; Translations: [Other insomnia] Onset: 05-17-2023 05-17-2023 Chronic Residual codes; unclassified (1 source) Presence of functional implant, unspecified; Translations: [Retained orthopedic hardware] Onset: 11-10-2023 Chronic Residual codes; unclassified (9 sources) Reduced libido; Translations: [Decreased libido] Episodic Residual codes; unclassified (18 sources) Insomnia; Translations: [Insomnia] Episodic Residual codes; unclassified (9 sources) Postmenopausal state; Translations: [Post-menopausal] Episodic Residual codes; unclassified (4 sources) Edema of lower extremity; Translations: [Lower extremity edema] Episodic Residual codes; unclassified (1 source) Pain; Translations: [Pain] Episodic Residual codes; unclassified (4 sources) Presence of other specified devices; Translations: [Other postprocedural status] Onset: 03-17-2023 Episodic Superficial injury; contusion (4 sources) Insect bite of lower limb; Translations: [Insect bite of left lower leg, initial encounter] Episodic Thyroid disorders (20 sources) Hypothyroidism; Translations: [Hypothyroidism, unspecified] Onset: 03-22-2023 05-17-2023 Chronic Unclassified (1 source) Established Patient Onset: 05-03-2023 Past or Other Problems Problem Classification Problem Date Documented Da te Episodic/Chronic Allergic reactions (10 sources) Eczema; Translations: [Allergy status to penicillin] Onset: 08-21-2022 Episodic Other acquired deformities (20 sources) Deformity of lower limb; Translations: [Other specified acquired deformities of right lower leg] Onset: 05-06-2021 05-06-2021 Episodic Other acquired deformities (1 source) Unspecified acquired deformity of right lower leg; Translations: [Deformity of metatarsal bone of right foot] Onset: 09-06-2023 Episodic Other bone disease and musculoskeletal deformities (2 sources) Disorder of bone, unspecified; Translations: [Disease of bone] Onset: 07-02-2023 Episodic Other connective tissue disease (2 sources) Spontaneous rupture of extensor tendons, right lower leg; Translations: [Spontaneous rupture of extensor tendons, right lower leg] Onset: 08-21-2022 Episodic Other connective tissue disease (1 source) Posterior tibial tendinitis, right leg; Translations: [Posterior tibial tendinitis, right leg] Onset: 08-13-2022 Episodic Other connective tissue disease (20 sources) Dysfunction of posterior tibial tendon; Translations: [Posterior tibial tendinitis, unspecified leg] Onset: 05-06-2021 05-06-2021 Episodic Other non-traumatic joint disorders (3 sources) Pain in right ankle and joints of right foot; Translations: [Pain in right ankle] Onset: 06-05-2022 Episodic Other upper respiratory infections (14 sources) Acute sinusitis; Translations: [H/O: infectious disease] Onset: 11-03-2023 11-03-2023 Episodic Screening and history of mental health and substance abuse codes (20 sources) Personal history of nicotine dependence; Translations: [Ex-smoker] Onset: 03-22-2023 Episodic Skin and subcutaneous tissue infections (20 sources) Paronychia; Translations: [Cellulitis] Onset: 04-22-2023 Episodic Spondylosis; intervertebral disc disorders; other back problems (10 sources) Lumbosacral neuritis; Translations: [Sciatica, unspecified side] Onset: 08-21-2022 Episodic Sprains and strains (12 sources) Lumbosacral strain; Translations: [Strain of muscle(s) and tendon(s) of anterior muscle group at lower leg level, right leg, initial encounter] Onset: 06-05-2022 Episodic Unclassified (18 sources) Drug therapy finding; Translations: [High risk medication use] Unclassified (20 sources) Patient encounter status; Translations: [Osteoporosis screening] NEGATED: Highlighted row has not occurred!Residual codes; unclassified (20 sources) Disease Episodic Results Test Name Value Interpretation Reference Range Facility Comprehensive metabolic 2000 panelon 03-13-2024 Albumin BCP dye [Mass/Vol] 4.7 g/dL Normal 3.4-5.0 [facility] Comment on above: Performed By: #### 2 4323-8 #### ADAM CALDERON ([id number]) [facility] ([facility]) [place] [address] ALP [Catalytic activity/Vol] 59 U/L Normal 33-136 [facility] Comment on above: Performed By: #### 2 4323-8 #### ADAM CALDERON ([id number]) [facility] ([facility]) [place] [address] ALT With P-5'-P [Catalytic activity/Vol] 23 U/L Normal 7-45 [facility] Comment on above: Result Comment: Shaista ents treated with Sulfasalazine may generate falsely decreased results for ALT. Performed By: #### 2 4323-8 #### ADAM CALDERON ([id number]) [facility] ([facility]) [address] [place] [address] Anion gap [Moles/Vol] 17 mmol/L Normal 10-20 [facility] Comment on above: Performed By: #### 2 4323-8 #### ADAM CALDERON ([id number]) [facility] ([facility]) [address] [place] [address] AST With P-5'-P [Catalytic activity/Vol] 16 U/L Normal 9-39 [facility] Comment on above: Performed By: #### 2 4323-8 #### ADAM CALDERON ([id number]) [facility] ([facility]) [address] [place] [address] Bilirubin [Mass/Vol] 0.3 mg/dL Normal 0.0-1.2 [facility] Comment on above: Performed By: #### 2 4323-8 #### ADAM CALDERON ([id number]) [facility] ([facility]) [address] [place] [address] Calcium [Mass/Vol] 10.8 mg/dL High 8.6-10.3 [facility] Comment on above: Performed By: #### 2 4323-8 #### ADAM CALDERON ([id number]) [facility]) [address] [place] [address] Chloride [Moles/Vol] 101 mmol/L Normal 98-107 [facility] Comment on above: Performed By: #### 2 4323-8 #### ADAM CALDERON ([id number]) [facility]) [address] [place] [address] CO2 [Moles/Vol] 25 mmol/L Normal 21-32 [facility] Comment on above: Performed By: #### 2 4323-8 #### ADAM CALDERON ([id number]) [facility]) [address] [place] [address] Creatinine [Mass/Vol] 1.09 mg/dL High 0.50-1.05 [facility] Comment on above: Performed By: #### 2 4323-8 #### ADAM CALDERON ([id number]) [facility]) [address] [place] [address] Glomerular filtration rate/1.73 sq M.predicted 57 mL/min/1.73m*2 Low >60 [facility] Comment on above: Result Comment: Calc ulations of estimated GFR are performed using the 2020 CKD-EPI Study Refit equation without the race variable for the IDMS-Traceable creatinine methods. https://jasn.asnjournals.org/content/early//ASN.4750374 988 Performed By: #### 2 4323-8 #### ADAM CALDERON ([id number]) [facility]) [address] [place] [address] Glucose [Mass/Vol] 178 mg/dL High 74-99 [facility] Comment on above: Performed By: #### 2 4323-8 #### ADAM CALDERON ([id number]) [facility] [address] [place] [address] Potassium [Moles/Vol] 4.7 mmol/L Normal 3.5-5.3 [facility] Comment on above: Performed By: #### 2 4323-8 #### ADAM CALDERON ([id number]) [facility]) [address] [place] [address] Protein [Mass/Vol] 7.4 g/dL Normal 6.4-8.2 [facility] Comment on above: Performed By: #### 2 4323-8 #### ADAM CALDERON ([id number]) [facility] [address] [place] [address] Sodium [Moles/Vol] 138 mmol/L Normal 136-145 [facility] Comment on above: Performed By: #### 2 4323-8 #### ADAM CALDERON ([id number]) [facility] ([facility]) [address] [place] [address] Urea nitrogen [Mass/Vol] 21 mg/dL Normal 6-23 [facility] Comment on above: Performed By: #### 2 4323-8 #### ADAM CALDERON ([id number]) [facility] ([facility]) [address] [place] [address] HbA1c (Bld) [Mass fraction]o n 03-13-2024 Average glucose Estimated from glycated hemoglobin (Bld) [Mass/Vol] 148 mg/dL Normal Not Established [facility] Comment on above: Order Comment: Diagn osis of Diabetes-Adults Non-Diabetic: < or = 5.6% Increased risk for developing diabetes: 5.7-6.4% Diagnostic of diabetes: > or = 6.5% Monitoring of Diabetes Age (y)....................... Therapeutic Goal (%) Adults: >18.........................<7.0 Pediatrics: 13-18...................<7.5 Pediatrics: 7-12....................<8.0 Pediatrics: 0-6..................... 7.5-8.5 [place] [employer]. Diabetes Care 33(S1), Nov 2009 Performed By: #### 4 548-4 #### ADAM CALDERON ([id number]) [facility] ([facility]) [address] [place] [address] Hemoglobin A1c/Hemoglobin.to milan 03-13-2024 HbA1c (Bld) [Mass fraction] 6.8 % High see below [facility] Comment on above: Order Comment: Diagn osis of Diabetes-Adults Non-Diabetic: < or = 5.6% Increased risk for developing diabetes: 5.7-6.4% Diagnostic of diabetes: > or = 6.5% Monitoring of Diabetes Age (y)....................... Therapeutic Goal (%) Adults: >18.........................<7.0 Pediatrics: 13-18...................<7.5 Pediatrics: 7-12....................<8.0 Pediatrics: 0-6..................... 7.5-8.5 [place] [employer]. Diabetes Care 33(S1), Nov 2009 Performed By: #### 4 548-4 #### ADAM CALDERON ([id number]) [facility] ([facility]) [address] [place] [address] Thyrotropinon 03-13-2024 TSH Qn 0.79 m[IU]/L Normal 0.44-3.98 [facility] Comment on above: Order Comment: TSH t esting is performed using different testing methodology at [facility] than at other [facility]. Direct result comparisons should only be made within the same method. Performed By: #### 3 016-3 #### ADAM CALDERON ([id number]) [facility] ([facility]) [address] [place] [address] Edwin 03-09-2024 L Specimen: [id number] Received: 03/09/24 Status: [facility] Num: [id number] Spec Type: Surgical Subm Dr: Zuhair Grubbs DPM, MS Tissues: A Bone Biopsy/Currettings (BX RT TIBIA BONE) B Bone Biopsy/Currettings (RT TALUS BONE BX) C Bone Biopsy/Currettings (BX RT CALCANEOUS BONE) Procedures: HE/6, Gross/Micro L5/3, Decalcification/3 Age/ Patient Sex Location Account Attending Physician Darshan,April LABELL [id number] Zuhair Grubbs DPM, MS SPEC NUM: [id number] RECD: 03/09/24 STATUS: KADIE LEESaulo NUM: [id number] TATIANNA: 03/09/[address] [facility] [address]: Zuhair Grubbs DPM, MS ENTERED: 03/09/[address] [facility] [address]: Orestes,Lab SPEC TYPE: Surgical DEPT: ATA FISHER ORDERED: HE/6, Gross/Micro L5/3, Decalcification/3 ORDERED: HE/6, Gross/Micro L5/3, Decalcification/3 Pathological Diagnosis A. Right tibial bone, biopsy: - Fragmented pieces of viable?appearing bone with fatty marrow. - Osteomyelitis not identified. B. Right talus bone, biopsy: - Histologically viable cortical and cancellous bone with focal intramedullary fibrosis and bone remodeling. - Accompanying fibrous tissue featuring foci of mild, chronic inflammation with and focal black tattoo pigment deposition. - Osteomyelitis not identified. C. Right calcaneus bone, biopsy: - Histologically viable chondro-osseous tissue with focal periosteal fibrosis and black tattoo pigment deposition. - Osteomyelitis not identified. Gross Description Received are 3 formalin filled containers each labeled with the patient's name and specific specimen site. A. Further labeled biopsy of right tibia bone are multiple minute fragments of bone measuring in aggregate 0.7 x 0.3 x 0.2 cm, entirely submitted in A1 following Specimen: [id number] Received: 03/09/24 Status: KADIE Kiley Num: [id number] Spec Type: Surgical Subm Dr: Zuhair Grubbs DPM, MS Tissues: A Bone Biopsy/Currettings (BX RT TIBIA BONE) B Bone Biopsy/Currettings (RT TALUS BONE BX) C Bone Biopsy/Currettings (BX RT CALCANEOUS BONE) Procedures: HE/6, Gross/Micro L5/3, Decalcification/3 Patient: DarshanMarie [id number] (Continued) Specimen: [id number] Received: 03/09/24 (Continued) Gross Description (Continued) Signed (signature on file) Darci Castro MD 03/13/24 1653 Specimen: [id number] Received: 03/09/24 Status: KADIE Cao Num: [id number] Spec Type: Surgical Subm Dr: Zuhair Grubbs,DPM, MS Tissues: A Bone Biopsy/Currettings (BX RT TIBIA BONE) B Bone Biopsy/Currettings (RT TALUS BONE BX) C Bone Biopsy/Currettings (BX RT CALCANEOUS BONE) Procedures: HE/6, Gross/Micro L5/3, Decalcification/3 Patient: DarshanApril [id number] (Continued) Specimen: [id number] Received: 03/09/24 (Continued) Gross Description (Continued) decalcification. B. Further labeled biopsy of right talus bone is a 0.8 x 0.5 x 0.5 cm irregularly-shaped fragment of bone. The specimen is bisected and entirely submitted in B1 following decalcification. C. Further labeled biopsy of right calcaneus bone are 3 fragments of bone measuring in aggregate 1.1 x 0.3 x 0.2 cm, entirely submitted in C1 following decalcification. Clinical history: Charcot joint right ankle and foot CPT Codes 90852x0, 30955h7 Specimen: [id number] Received: 03/09/24 Status: KADIE Cao Num: [id number] Spec Type: Surgical Subm Dr: Zuhair Grubbs,DPM, MS Tissues: A Bone Biopsy/Currettings (BX RT TIBIA BONE) B Bone Biopsy/Currettings (RT TALUS BONE BX) C Bone Biopsy/Currettings (BX RT CALCANEOUS BONE) Procedures: HE/6, Gross/Micro L5/3, Decalcification/3 Patient: DarshanMarie [id number] (Continued) Signed (signature on file) Darci Castro MD 03/13/24 1653 Normal [facility] Comprehensive metabolic 2000 panelon 11-26-2023 Albumin BCP dye [Mass/Vol] 4.6 g/dL Normal 3.4-5.0 [facility] Comment on above: Performed By: #### 2 4323-8 #### ADAM CALDERON ([id number]) [facility] ([facility]) [address] [place] [address] ALP [Catalytic activity/Vol] 52 U/L Normal 33-136 [facility] Comment on above: Performed By: #### 2 4323-8 #### ADAM CALDERON ([id number]) [facility] ([facility]) [address] [place] [address] ALT With P-5'-P [Catalytic activity/Vol] 17 U/L Normal 7-45 [facility] Comment on above: Result Comment: Shaista ents treated with Sulfasalazine may generate falsely decreased results for ALT. Performed By: #### 2 4323-8 #### ADAM CALDERON ([id number]) [facility]) [address] [place] [address] Anion gap [Moles/Vol] 14 mmol/L Normal 10-20 [facility] Comment on above: Performed By: #### 2 4323-8 #### ADAM CALDERON ([id number]) [facility] [address] [place] [address] AST With P-5'-P [Catalytic activity/Vol] 16 U/L Normal 9-39 [facility] Comment on above: Performed By: #### 2 432-8 #### ADAM CALDERON ([id number]) [facility] ([facility]) [address] [place] [address] Bilirubin [Mass/Vol] 0.6 mg/dL Normal 0.0-1.2 [facility] Comment on above: Performed By: #### 2 4323-8 #### ADAM CALDERON ([id number]) [facility] ([facility]) [address] [place] [address] Calcium [Mass/Vol] 10.0 mg/dL Normal 8.6-10.3 [facility] Comment on above: Performed By: #### 2 4323-8 #### ADAM CALDERON ([id number]) [facility] ([facility]) [address] [place] [address] Chloride [Moles/Vol] 99 mmol/L Normal 98-107 [facility] Comment on above: Performed By: #### 2 4323-8 #### ADAM CALDERON ([id number]) [facility] ([facility]) [address] [place] [address] CO2 [Moles/Vol] 28 mmol/L Normal 21-32 [facility] Comment on above: Performed By: #### 2 4323-8 #### ADAM CALDERON ([id number]) [facility] ([facility]) [address] [place] [address] Creatinine [Mass/Vol] 1.07 mg/dL High 0.50-1.05 [facility] Comment on above: Performed By: #### 2 4323-8 #### ADAM CALDERON ([id number]) [facility] ([facility]) [address] [place] [address] Glomerular filtration rate/1.73 sq M.predicted 59 mL/min/1.73m*2 Low >60 [facility] Comment on above: Result Comment: Calc ulations of estimated GFR are performed using the 2020 CKD-EPI Study Refit equation without the race variable for the IDMS-Traceable creatinine methods. https://jasn.asnjournals.org/content/early//ASN.2702176 988 Performed By: #### 2 4323-8 #### ADAM CALDERON ([id number]) [facility] ([facility]) [address] [place] [address] Glucose [Mass/Vol] 92 mg/dL Normal 74-99 [facility] Comment on above: Performed By: #### 2 4323-8 #### ADAM CALDERON ([id number]) [facility] ([facility]) [address] [place] [address] Potassium [Moles/Vol] 4.2 mmol/L Normal 3.5-5.3 [facility] Comment on above: Performed By: #### 2 4323-8 #### ADAM CALDERON ([id number]) [facility] ([facility]) [address] [place] [address] Protein [Mass/Vol] 7.1 g/dL Normal 6.4-8.2 [facility] Comment on above: Performed By: #### 2 4323-8 #### ADAM CALDERON ([id number]) [facility] ([facility]) [address] [place] [address] Sodium [Moles/Vol] 137 mmol/L Normal 136-145 [facility] Comment on above: Performed By: #### 2 4323-8 #### ADAM CALDERON ([id number]) [facility] ([facility]) [address] [place] [address] Urea nitrogen [Mass/Vol] 20 mg/dL Normal 6-23 [facility] Comment on above: Performed By: #### 2 4323-8 #### ADAM CALDERON ([id number]) [facility] ([facility]) [address] [place] [address] HbA1c (Bld) [Mass fraction]o n 11-26-2023 Average glucose Estimated from glycated hemoglobin (Bld) [Mass/Vol] 163 mg/dL Normal Not Established [facility] Comment on above: Order Comment: Diagn osis of Diabetes-Adults Non-Diabetic: < or = 5.6% Increased risk for developing diabetes: 5.7-6.4% Diagnostic of diabetes: > or = 6.5% Monitoring of Diabetes Age (y)....................... Therapeutic Goal (%) Adults: >18.........................<7.0 Pediatrics: 13-18...................<7.5 Pediatrics: 7-12....................<8.0 Pediatrics: 0-6..................... 7.5-8.5 [place] [employer]. Diabetes Care 33(S1), Nov 2009 Performed By: #### 4 548-4 #### ADAM CALDERON ([id number]) [facility] ([facility]) [address] [place] [address] Hemoglobin A1c/Hemoglobin.to milan 11-26-2023 HbA1c (Bld) [Mass fraction] 7.3 % High see below [facility] Comment on above: Order Comment: Diagn osis of Diabetes-Adults Non-Diabetic: < or = 5.6% Increased risk for developing diabetes: 5.7-6.4% Diagnostic of diabetes: > or = 6.5% Monitoring of Diabetes Age (y)....................... Therapeutic Goal (%) Adults: >18.........................<7.0 Pediatrics: 13-18...................<7.5 Pediatrics: 7-12....................<8.0 Pediatrics: 0-6..................... 7.5-8.5 [place] [employer]. Diabetes Care 33(S1)Nov 2009 Performed By: #### 4 548-4 #### ADAM CALDERON ([id number]) [facility] ([facility]) [place] [address] Lipid 1996 panelon 4 Cholesterol [Mass/Vol] 185 mg/dL Normal 0-199 [facility] Comment on above: Result Comment: Age Desirable Borderline High High 0-19 Y 0 - 169 170 - 199 >/= 200 20-24 Y 0 - 189 190 - 224 >/= 225 >24 Y 0 - 199 200 - 239 >/= 240 All ranges are based on fasting samples. Specific therapeutic targets will vary based on patient-specific cardiac risk. Pediatric guidelines reference:Pediatrics 2011, 128(S5).Adult guidelines reference: NCEP ATPIII Guidelines,EMELI 2001, 258:2486-97 Venipuncture immediately after or during the administration of Metamizole may lead to falsely low results. Testing should be performed immediately prior to Metamizole dosing. Performed By: #### 2 4331-1 #### ADAM CALDERON ([id number]) [facility] ([facility]) [address] [place] [address] Cholesterol in HDL [Mass/Vol] 34.5 mg/dL Normal [facility] Comment on above: Result Comment: Age Very Low Low Normal High 0-19 Y < 35 < 40 40-45 ---- 20-24 Y ---- < 40 >45 ---- >24 Y ---- < 40 40-60 >60 Performed By: #### 2 4331-1 #### ADAM CALDERON ([id number]) [facility] ([facility]) [address] [place] [address] Cholesterol in LDL [Mass/Vol] 95 mg/dL Normal <=99 [facility] Comment on above: Result Comment: Near Borderline AGE Desirable Optimal High High Very High 0-19 Y 0 - 109 --- 110-129 >/= 130 ---- 20-24 Y 0 - 119 --- 120-159 >/= 160 ---- >24 Y 0 - 99 100-129 130-159 160-189 >/=190 Performed By: #### 2 4331-1 #### ADAM CALDERON ([id number]) [facility] ([facility]) [address] [facility] [place] [address] Cholesterol in VLDL [Mass/Vol] 55 mg/dL High 0-40 [facility] Comment on above: Performed By: #### 2 4331-1 #### ADAM CALDERON ([id number]) [facility] ([facility]) [address] [place] [address] CHOLESTEROL/HDL RATIO 5.4 Normal [facility] Comment on above: Result Comment: Ref Values Desirable < 3.4 High Risk > 5.0 Performed By: #### 2 4331-1 #### ADAM CALDERON ([id number]) [facility] ([facility]) [address] [place] [address] NON HDL CHOLESTEROL 151 mg/dL High 0-149 [facility] Comment on above: Result Comment: Age Desirable Borderline High High Very High 0-19 Y 0 - 119 120 - 144 >/= 145 >/= 160 20-24 Y 0 - 149 150 - 189 >/= 190 ---- >24 Y 30 mg/dL above LDL Cholesterol goal Performed By: #### 2 4331-1 #### ADAM CALDERON ([id number]) [facility]) [address] [place] [address] Triglyceride [Mass/Vol] 277 mg/dL High 0-149 [facility] Comment on above: Result Comment: Age Desirable Borderline High High Very High 0 D-90 D 19 - 174 ---- ---- ---- 91 D- 9 Y 0 - 74 75 - 99 >/= 100 ---- 10-19 Y 0 - 89 90 - 129 >/= 130 ---- 20-24 Y 0 - 114 115 - 149 >/= 150 ---- >24 Y 0 - 149 150 - 199 200- 499 >/= 500 Venipuncture immediately after or during the administration of Metamizole may lead to falsely low results. Testing should be performed immediately prior to Metamizole dosing. Performed By: #### 2 4331-1 #### ADAM CALDERON ([id number]) [facility] ([facility]) [address] [place] [address] Thyrotropinon 11-26-2023 TSH Qn 0.72 m[IU]/L Normal 0.44-3.98 [facility] Comment on above: Order Comment: TSH t esting is performed using different testing methodology at [facility] than at [facility]. Direct result comparisons should only be made within the same method. Performed By: #### 3 016-3 #### ADAM CALDERON ([id number]) [facility] ([facility]) [address] [place], [place] [address] Thyroxine.freeon 11-26-2023 Free T4 [Mass/Vol] 1.24 ng/dL High 0.61-1.12 [facility] Comment on above: Order Comment: Thyro xine Free testing is performed using different testing methodology at [facility] than at [facility]. Direct result comparisons should only be made within the same method. Biotin can cause falsely elevated free T4 results. Patients taking a Biotin dose of up to 10 mg/day should refrain from taking Biotin for 24 hours before sample collection. Patient taking a Biotin dose of >10 mg/day should consult with their physician or the laboratory before the blood draw. 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 Patient has been weightbearing without any assistance and she feels clicking in her midfoot. 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 Patient denies any constitutional symptoms. Patient denies any calf or thigh pain. 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 numbness and tingling hands Snores Ulcer bilateral feet/ had for 2 years left foot and right foot for about 4 months / uses ointment to feet once a day. / ulcers are draining blood or no yellow or green draininage. Varicose veins Weakness arms and legs PAST SURGICAL HISTORY Procedure Laterality Date LIG/TRNSXJ FLP TUBE ABDL/VAG APPR UNI/BI Tubal ligation PAST SURGICAL HISTORY OF surgery to left foot x 5 PAST SURGICAL HISTORY OF right foot surgery x4-5 No current facility-administered medications for this visit. ALLERGIES Allergen Reactions Augmentin [Amoxicil* GI Upset Vomiting Codeine GI Upset Demerol [Meperidine* Other: See Comments patient unsure Doxycycline GI Upset Vomiting GI upset Morphine Itching FAMILY HISTORY Problem Relation Age of Onset Anesthesia Problems No Family History Social History Tobacco Use Smoking status: Former Packs/day: 1.50 Years: 10.00 Additional pack years: 0.00 Total pack years: 15.00 Types: Cigarettes Quit date: 04/24/2009 Years since quittin.5 Vaping Use Vaping Use: Never used Substance Use Topics Alcohol use: Yes Comment: not on a weekly basis Drug use: No --------- Current Opioids Analgesic Opioid Agonists Start End traMADol (ULTRAM) 50 mg tablet 10/26/2023 -- Sig - Route: Take 1 tablet by mouth every 6 hours as needed for pain. for pain. - ORAL Analgesic Opioid Oxycodone Combinations Start End oxyCODONE-acetaminophen (PERCOCET) 5-325 mg tablet 11/22/2023 11/29/2023 Sig - Route: Take 1 tablet by mouth four times a day as needed for pain for up to 7 days. - ORAL Earliest Fill Date: 11/22/2023 Analgesic Opioid Oxycodone and Non-Salicylate Combinations Start End oxyCODONE-acetaminophen (PERCOCET) 5-325 mg tablet 11/22/2023 11/29/2023 Sig - Route: Take 1 tablet by mouth four times a day as needed for pain for up to 7 days. - ORAL Earliest Fill Date: 11/22/2023 CHAYITO Modifiable Risk Factors (MoRF) Obesity Unknown Risk High: BMI > 40 Moderate: BMI 30-40 Normal: BMI < 30 Diabetes Moderate Risk High: A1C > 8 Moderate: A1C 7-8 Normal: A1C < 7 Smoking normal High: Current smoker Normal: Non smoker Anemia normal High: Hgb < 11.5 (women) N/A: Hgb >= 11.5 (women) Nutritional Status normal High: Alb<3.4, or prealb<15, or serum transferrin<200, or total lymphocyte count<1500 Normal: normal labs Narcotics Use High Risk High:NarxCare >=300 Moderate: 100-299 Normal: 0-99 Obesity: height and/or weight are out of date (There is no height and/or weight reading in the past 365 days, so the below BMI readings may be inaccurate) BMI Readings from Last 3 Encounters: 11/03/23 : 26.32 kg/m? 05/18/23 : 28.56 kg/m? 05/12/23 : 26.52 kg/m? Diabetes: Well controlled - Marie has been diagnosed with Type 2 Diabetes. Her last Hemoglobin A1C was 6 (11/03/2023). NarxCare score NARX Narcotics: 401 (11/24/2023 1:49 PM) ------- REVIEW OF SYSTEMS: CONSTITUTIONAL: No fevers, chills, nightsweats, unintended weight loss HEENT: Denies frequent or severe headaches, nasal congestion/sinus symptoms, problematic allergy problems. EYES: No di (more content not included)... Normal [facility] ANES POSTPROC EVALon 023 ANES POSTPROC EVAL HNO ID: [id number] Author: Luc Lopez MD Service: Anesthesiology Author Type: Anesthesiologist Type: Anesthesia Postprocedure Evaluation Filed: 11/10/2023 2:34 PM Note Text: POST ANESTHESIA EVALUATION NOTE : 1960 Procedure Summary Date: 11/10/23 Room / Location: OR / OR Anesthesia Start: 1257 Anesthesia Stop: 1432 Procedures: REMOVAL HARDWARE FOOT (Right: Foot) BIOPSY BONE EXTREMITY LOWER (Right) Diagnosis: Retained orthopedic hardware Nonunion of foot fracture, right (Retained orthopedic hardware [Z96.9]) (Nonunion of foot fracture, right [S92.191K]) Surgeons: Macario Santos DPM Responsible Provider: Luc Lopez MD Anesthesia Type: general ASA Status: 3 Anesthesia Type: general Airway Type: ETT Last Vitals Vitals Value Taken Time BP 155/63 11/10/23 1430 Temp 11/10/23 1434 Pulse 79 11/10/23 1433 Resp 17 11/10/23 1433 SpO2 95 % 11/10/23 1433 Vitals shown include unfiled device data. Post Anesthesia Patient Status Patient Evaluation: PACU. PACU/ICU Patient Condition: stable. Anticipated Disposition: phase 2 then home. Neurological Status: aware and responsive. Pulmonary Status: breathing comfortably on supplemental oxygen Airway Control: returned to baseline unsupported. Cardiovascular Status: stable. Pain Management: clinically adequate - multimodal analgesia pain management approach Postoperative Hydration: acceptable. Intraoperative Events: no significant anesthesia events Post Operative Nausea/Vomiting Status: no significant post operative nausea or vomiting Recommendation: continue current plan of care. Anesthesia Observations No Documentation SIGNATURE: Luc Lopez MD PATIENT NAME: Marie Sexton DATE: November 10, 2023 TIME: 2:34 PM CSN: [id number] [facility] ANES PRE-OPon 11-10-2023 ANES PRE-OP HNO ID: [id number] Author: Serafin Partida MD Service: Anesthesiology Author Type: Anesthesiologist Type: Anesthesia Preprocedure Evaluation Filed: 11/10/2023 12:54 PM Note Text: ANESTHESIOLOGY DAY OF SURGERY NOTE : 1960 Procedure Information Date/Time: 11/10/23 1325 Procedures: REMOVAL HARDWARE FOOT (Right: Foot) - POPLITEAL BLOCK Adrian serrano aware of case - kf have available [employer] TV extraction set 1 and 2 ARTHRODESIS MIDTARSAL OR TARSOMETATARSAL, MULTIPLE OR TRANSVERSE (Right: Foot) ARTHRODESIS FOOT (Right: Foot) Location: OR12 / OR Surgeons: Macario Santos DPM Estimated body mass index is 26.32 kg/m? as calculated from the following: Height as of 11/03/23: 183.2 cm (6' 0.13 ). Weight as of 11/03/23: 88.3 kg (194 lb 12.4 oz). Most recent hematocrit and potassium results: Hematocrit 40.9 11/03/2023 Potassium 4.9 11/03/2023 Relevant Problems CARDIO (+) HTN (hypertension) ENDO (+) Acquired hypothyroidism (+) Diabetes mellitus type 2, insulin dependent (HCC) NEURO-PSYCH (+) Recent URI PULMONARY (+) Asthma (+) Recent URI Other (+) Arthritis of right subtalar joint I - PHYSICAL EVALUATION AIRWAY Patient intubated: No. Tracheostomy tube not present Mallampati: II. TM distance: >3 FB. Neck ROM: full ROM without neurological symptoms. Mouth opening: adequate. Short neck: no. Thick neck: no Velez present: no Microretrognathia/Micro nagthia/Recessed Chin: No DENTAL Dentures, upper: complete. Dentures, lower: partial. Additional exam findings: yes. CARDIOVASCULAR Normal cardiovascular observations. Rhythm: regular Rate: normal PULMONARY Normal pulmonary observations. Breath sounds clear to auscultation. II - ANESTHESIA PLAN ASA Score: 3 Anesthetic Plan: general Airway type: ETT The patient is not a current smoker. NPO Status: adequate Anesthetic plan additional comments: Currently denies HTN and is not on meds for this. Previously had fentanyl without problems. Beta Vita Administration of chronic beta vita medication planned. Monitoring Plan Monitoring plan: standard ASA. Post Procedure Analgesic Plan Postoperative analgesic plan: multimodal analgesia and parenteral or oral opioids (block done in holding area by Dr. stanley). Informed Consent Anesthetic risks, benefits, alternatives, personnel and consent discussed: yes. Patient / Responsible Constitution Party agrees to proceed: yes Patient / Surrogate agrees to blood products: Yes DNR status not reviewed with patient and/or family prior to surgery. Significant changes in the patient condition since the History and Physical, not otherwise documented in primary service progress note: no. Potential Anesthesia issues that may suggest increased risk of complications or contraindication to planned procedure: none. Discussed the possibility of lip / dental damage: yes Vitals Value Taken Time BP 139/65 11/10/23 1245 Pulse 68 11/10/23 1251 Resp 12 11/10/23 1251 Temp 36.3 ?C (97.3 ?F) 11/10/23 1214 SpO2 90 % 11/10/23 1252 Vitals shown include unfiled device data. Facility-Administered Medications as of 11/10/2023 Medication Dose Route Frequency - [COMPLETED] midazolam (PF) 1-2 mg injection (VERSED) 1-2 mg INTRAVENOUS ONCE - lactated ringers iv infusion 5-30 mL/hr INTRAVENOUS CONTINUOUS - [COMPLETED] acetaminophen 1,000 mg tab(s) (TYLENOL) 1,000 mg ORAL Pre-Op Once - [COMPLETED] promethazine 12.5 mg tab(s) (PHENERGAN) 12.5 mg ORAL Pre-Op Once Outpatient Medications as of 11/10/2023 Medication Sig - fenofibrate nanocrystallized (TRICOR) 145 mg tablet Take 1 tablet by mouth every afternoon. - traMADol (ULTRAM) 50 mg tablet Take 1 tablet by mouth every 6 hours as needed for pain. for pain. - insulin lispro protamin/lispro (HUMALOG MIX 75-25,U-100,INSULN SUBCUTANEOUS) Inject 20 Units subcutaneously three times daily with meals. - FLUoxetine (PROZAC) 10 mg capsule Take 10 mg by mouth once daily. - omega-3 acid ethyl esters (LOVAZA) 1 gram capsule Take 1 g by mouth twice daily. - vit B complex no.12/niacin,B3, (VITAMIN B COMPLEX NO.12-NIACIN ORAL) Take 2,500 mg by mouth. - Biotin 10,000 mcg cap Take by mouth. - Cholecalciferol, Vitamin D3, 25 mcg (1,000 unit) cap Take 1,000 Units by mouth once daily. - TURMERIC ORAL Take 500 mg by mouth. - CINNAMON BARK-CHROMIUM PICOLIN ORAL Take 2,000 mg by mouth twice daily. - LANTUS 100 unit/mL injection 55 Units daily at bedtime. - LEVOTHYROXINE 100 mcg tablet 100 mcg daily before breakfast. - metFORMIN 1,000 mg ORAL tablet Take 1,000 mg by mouth twice daily with meals. - hydrochlorothiazide 25 mg ORAL tablet Take 25 mg by mouth once daily. - gabapentin (NEURONTIN) 800 mg tablet Take 800 mg by mouth. 1 tablet in the morning, 1 tablet in the afternoon, and 2 tablets at bedtime - albuterol HFA (PROVENTIL HFA, VENTOLIN HFA) 90 mcg/actuation inhaler inhale 1 to 2 puffs by (more content not included)... Normal [facility] BRIEF OP NOTon 11-10-2023 BRIEF OP NOT HNO ID: [id number] Author: Macario Santos DPM Service: Podiatry Author Type: Physician Type: Brief Op Note Filed: 11/10/2023 2:08 PM Note Text: PODIATRIC SURGERY BRIEF OPERATIVE NOTE LOG ID: [id number] Surgery/Procedure Date: 11/10/2023 Incision/Procedure Start Time: 1:25 PM Incision Close/Procedure End Time: Surgeon(s)/Proceduralis t(s) and Career Technical Education Teacher(s): Surgeon(s) and Role: * Macario Santos DPM - Primary * Alek Mclaughlin DPM - Resident - Assisting Physician Career Technical Education Teacher: Rhoda Weston PA-C Procedure(s): Right removal of hardware Biopsy of bone talus right Implant of antibiotic cement right Application of posterior splint right leg Anesthesia: General Findings: Necrotic bone of navicular and talus Estimated Blood Loss: 5 mls Specimens: Talus path and micro Complications: NONE Pre-Op/Pre-Procedure Diagnosis: Right foot painful hardware Right foot AVN talus Post-Op/Post-Procedure Diagnosis: SAME SIGNATURE: Macario Santos DPM PATIENT NAME: Marie Sexton DATE: November 10, 2023 TIME: 2:06 PM PAGER/CONTACT #: [phone] (Pager/Cell) Normal [facility] Bacteria Spec Anaerobe Culto n 11-10-2023 Bacteria identified Anaer cx Nom (Unsp spec) Negative Normal [facility] Comment on above: Performed By: #### 6 35-3, 51161-2, 32099-0 ####[facility] [id number] [place] [address] [place] Bacteria Tiss Culton 023 Bacteria identified Cx Nom (Tiss) CULTURE, TISSUE: No growth GRAM STAIN: No organisms seen No Polymorphonuclear Leukocytes Normal [facility] Comment on above: Performed By: #### 6 35-3, 30305-5, 18799-6 ####[facility] [id number] [place] [address] [place] Microorganism Spec Culton Microorganism identified Cx Nom (Unsp spec) CULTURE, FUNGAL: No Fungus isolated after 28 days FUNGAL SMEAR: No fungus seen [facility] Comment on above: Performed By: #### 6 35-3, 64602-2, 83983-5 ####[facility] [id number] [address] [place] Microorganism identified Cx Nom (Unsp spec) CULTURE, AFB: No Acid Fast Bacilli isolated after 42 days AFB STAIN: No acid fast bacilli seen by flurochrome stain [facility] Comment on above: Performed By: #### 6 35-3, 27649-4, 19279-7 ####[facility] [id number] [place] [address] [place] NURSING PROGon 11-10-2023 NURSING PROG HNO ID: [id number] Author: Blanca Tomas RN Service: ? Author Type: Registered Nurse Type: Nursing Progress Note Filed: 11/10/2023 3:59 PM Note Text: PATIENT EDUCATION TOPIC: PROCEDURE / SURGERY: Post-op Teaching: Med Administration, Symptom Management, and Wound Care PATIENT NAME: Marie Sexton PATIENT LOCATION: [facility] OR POOL/[facility] OR POOL READINESS TO LEARN COGNITIVE ABILITY: Alert and oriented MOTIVATION TO LEARN: Eager Interested FAMILY SUPPORT: None - Unavailable/disinterest ed INSTRUCTION PROVIDED TO: Patient PATIENT LEARNS BEST BY: Written Instruction - Hand-outs FACTORS AFFECTING LEARNING: None PHYSICAL LIMITATIONS AFFECTING LEARNING: None LEARNING RESPONSE DIAGNOSIS: ADULT: Well Adult PATIENT/FAMILY RESPONSE: Verbalizes understanding of: POST-OPERATIVE INSTRUCTIONS-Correct actions to take to reduce postoperative complications METHOD OF INSTRUCTION: Written instruction - handouts FOLLOW-UP PLAN: Patient instructed to call with any further issues INSTRUCTIONAL AIDS USED: NA SUPPLEMENTAL MATERIAL PROVIDED TO PATIENT: None REFERRAL (RECOMMENDATION): None Electronically Signed By: Blanca Tomas [facility] NURSING PROG HNO ID: [id number] Author: Brigette Stallworth RN Service: Pain Management Author Type: Registered Nurse Type: Nursing Progress Note Filed: 11/10/2023 12:39 PM Note Text: RIGHT popliteal single shot nerve block and RIGHT adductor canal single shot nerve block Dr. Stanley and Dr. Rodrigues Patient verbalized understanding of nerve block procedure. Patient tolerated procedure very well; report given to primary nurse. [facility] NURSING PROG HNO ID: [id number] Author: Jenni Zarco RN Service: ? Author Type: Registered Nurse Type: Nursing Progress Note Filed: 11/10/2023 11:53 AM Note Text: PATIENT EDUCATION TOPIC: PROCEDURE / SURGERY: Pre-op Teaching: Surgical Safety Principles PATIENT NAME: Marie Sexton PATIENT LOCATION: [facility] OR POOL/[facility] OR POOL READINESS TO LEARN COGNITIVE ABILITY: Alert and oriented MOTIVATION TO LEARN: Eager FAMILY SUPPORT: Unable to assess - Family not present INSTRUCTION PROVIDED TO: Patient PATIENT LEARNS BEST BY: Individual Instruction Verbal Instruction FACTORS AFFECTING LEARNING: None PHYSICAL LIMITATIONS AFFECTING LEARNING: None LEARNING RESPONSE DIAGNOSIS: ADULT: See HANDP PATIENT/FAMILY RESPONSE: Verbalizes understanding of: PRE-OPERATIVE INSTRUCTIONS-Correct action to take to follow pre-operative instructions PRE-PROCEDURE INSTRUCTIONS-Correct action to take to follow pre-procedure instructions METHOD OF INSTRUCTION: Individual instruction Verbal instruction FOLLOW-UP PLAN: Complete - No need for follow-up INSTRUCTIONAL AIDS USED: NA SUPPLEMENTAL MATERIAL PROVIDED TO PATIENT: None REFERRAL (RECOMMENDATION): None Electronically Signed By: Jenni Zarco [facility] OPERATIVE NOon 11-10-2023 OPERATIVE NO HNO ID: [id number] Author: Macario Santos DPM Service: Podiatry Author Type: Physician Type: Operative Report Filed: 11/12/2023 8:42 AM Note Text: SURGERY OPERATIVE NOTE LOG ID: [id number] Surgery/Procedure Date: 11/10/2023 Incision/Procedure Start Time: 1:25 PM Incision Close/Procedure End Time: 2:17 PM Surgeon(s)/Proceduralis t(s) and Career Technical Education Teacher(s): Surgeon(s) and Role: * Macario Santos DPM - Primary * Alek Mclaughlin DPM - Resident - Assisting Physician Career Technical Education Teacher: Rhoda Weston PA-C PRE-OP/PRE-PROCEDURE DIAGNOSIS: Right foot painful hardware Right foot AVN talus POST-OP/POST-PROCEDURE DIAGNOSIS: Same as Pre-Op SURGERY/PROCEDURE(S): Right removal of hardware Biopsy of bone talus right Implant of antibiotic cement right Application of posterior splint right leg ANESTHESIA: General HEMOSTASIS: Maintained on the field ESTIMATED BLOOD LOSS: 5 mls MATERIALS: None INDICATIONS: This 63 year old female presents to the operating room today for the above said procedures. The nature of their condition, post operative recovery, risks and complications including but not limited to numbness, tingling, burning, over and under correction, problems of healing soft tissue or bone, chronic pain and disability, need for further surgery or revision, amputation, loss of limb or life, have all been discussed with the patient in detail. All questions have been answered to the patient's satisfaction, and no promises or guarantees given. SURGERY/PROCEDURE DETAILS: Under mild sedation the patient was brought into the operating room, placed on the operating room table in the supine position. Anesthesia was induced. The patient's leg was confirmed to be the correct limb, was then scrubbed, prepped, and draped in the usual, aseptic manner. Attention was was directed to the operative leg. Using a 15 blade a linear incision was made overlying the talonavicular joint hardware. The incision was further down using sharp dissection layer of the failing hardware. As much of the hardware was removed as possible, multiple screws were broken but the screw heads and plate were removed in total. After this removal the talus and navicular were examined in detail. When beginning to dissect out for the joint the talus began to crumble as it appeared to be completely necrotic. Once this was identified to the planned procedure was aborted. Next biopsy of the talus for both path and micro were sent. Debridement of all the necrotic bone was performed and removed in total from the talus and navicular which was confirmed on C arm. This bone was extremely soft and the joint completely mobile. There were multiple broken screw fragments within the talar neck and head which were removed as well. Due to the chance of a septic nonunion the cultures were obtained. Next an implant of antibiotic impregnated cement was then prepared per the supervisor bindery's recommended technique and then placed into the large void that was debrided out. This will be evaluated after the cultures and pathology results come back to determine next steps. The incision was then flushed with copious amounts of normal sterile saline and closed in a layered fashion using Vicryl and nylon. The operative area was then dressed with dry, sterile dressings followed by a posterior splint. The patient tolerated the procedure and anesthesia well in apparent satisfactory condition and was transported to the PACU with vital signs stable and vascular status intact to the leg for further monitoring prior to returning the patient to the floor. SPECIMENS: Culture and pathology biopsy of the talus VASCULAR ASSESSMENT: Healthy and controlled bleeding to the surgical site FINDINGS: Necrotic talar head and neck DRAINS: None COMPLICATIONS: None PARTICIPATION IN SURGERY/PROCEDURE: I was present and performed the procedure with assistance. The PA and resident assisted with positioning, retraction; and visualization of the operative field and moreover helped to complete the procedures in a technically safe and efficient manner. - Dr. Macario Santos DPM SIGNATURE: Macario Santos DPM PATIENT NAME: Marie Sexton DATE: November 12, 2023 TIME: 8:37 AM PAGER/CONTACT #: [phone] (Pager/Cell) Normal [facility] SURGICAL PATHOLOGYon 023 CASE REPORT [facility] Comment on above: Order Comment: Speci men Type: SPECIMEN FROM BONEOrdering Facility: [facility] Address: [address] [place] [address] Result Comment: Surg ical Pathology Report Case: [id number] Authorizing Provider: Macario Santos Collected: 11/10/2023 01:43 PM FLASH Zuniga Ordering Location: [facility] Received: 11/10/2023 02:35 PM Operating Room Pathologist: Laina Álvarez MD Specimen: BONE RESECTION, right non union talus Performed By: #### S ####[facility] LABCLIA [id number] [place] [address] [place] [facility] LABORATORYCLIA [id number] [place] [address] [place] CLINICAL HISTORY POPLITEAL BLOCK Normal [facility] Comment on above: Order Comment: Speci men Type: SPECIMEN FROM BONEOrdering Facility: [facility] Address: [address] [place] [address] Result Comment: Pre-op diagnosis: Retained orthopedic hardware [Z96.9] Nonunion of foot fracture, 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 B one and soft tissue, right, nonunion talus bone, resection: - Soft tissue with reactive changes, chronic inflammation and foreign body-type giant cell reaction. - Fragments of necrotic bone. Performed By: #### S ####[facility] LABCLIA [id number] [address] LABORATORYCLIA [id number] [address] FINAL PERFORMING LAB Normal [facility] Comment on above: Order Comment: Speci men Type: SPECIMEN FROM BONEOrdering Facility: [facility] Address: [address] [place] [address] Result Comment: Diag nostic interpretation performed at [facility], [address] [address] CLIA# [id number] Magazine Grinder Loader: Sarwat Enamorado M.D. Performed By: #### S ####[facility] LABCLIA [id number] [address] LABORATORYCLIA [id number] [address] GROSS DESCRIPTION Normal [facility] Comment on above: Order Comment: Speci men Type: SPECIMEN FROM BONEOrdering Facility: [facility] Address: [address] [place] [address] Result Comment: A. 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 Totally submitted in 1 cassette following decalcification. MLG November 11, 2023 9:03 AM Gross examination performed at [facility], [address] [place] [address] Performed By: #### S ####[facility] LABCLIA [id number] [address] LABORATORYCLIA [id number] [address] XR FOOT 2V AP/LAT RTon 11-10 XR FOOT 2V AP/LAT RT * * *Final Report* * * DATE OF EXAM: Nov 10 2023 1:59PM FVO 5609 - XR FOOT 2V AP/LAT RT / PROCEDURE REASON: INTRA OP HARDWARE REMOVAL- RIGHT * * * * Physician Interpretation * * * * EXAMINATION: XR FOOT 2V AP/LAT RT CLINICAL HISTORY: Intraoperative hardware removal, right-sided Technique: Intraoperative fluoroscopic images. Comparison: X-ray 05/17/2023 RESULT: Intraoperative fluoroscopic images. Please see operative note for details. Fluoroscopic Radiation Summary: Plane A, Air Kerma: 0.7 mGy Dose Area Product (DAP): Fluoro time: 0:19 min:sec IMPRESSION: Please see operative note for details First Aid Nurse: PSCB Transcribe Date/Time: Nov 10 2023 3:22P Dictated by : ARLIN CRUZ MD This examination was interpreted and the report reviewed and electronically signed by: ARLIN CRUZ MD on Nov 10 2023 3:24PM EST [id number] Normal [facility] CBC W Auto Differential pane l (Bld)on 11-03-2023 Basophils (Bld) [#/Vol] 0.05 10*3/uL Normal <0.11 [facility] Comment on above: Order Comment: Speci men Type: BLOOD SPECIMENOrdering Facility: [facility] Address: [address] [place] [address] Performed By: #### 5 7021-8 ####[facility] LABCLIA [id number] [place] [address] [place] Basophils/100 WBC (Bld) 0.6 % Normal [facility] Comment on above: Order Comment: Speci men Type: BLOOD SPECIMENOrdering Facility: [facility] Address: [address] [place] [address] Performed By: #### 5 7021-8 ####[facility] LABCLIA [id number] [place] [address] [place] Differential cell count method Nom (Bld) Auto Normal [facility] Comment on above: Order Comment: Speci men Type: BLOOD SPECIMENOrdering Facility: [facility] Address: [address] [place] [address] Performed By: #### 5 7021-8 ####[facility] LABCLIA [id number] [place] [address] [place] Eosinophils (Bld) [#/Vol] 0.41 10*3/uL Normal <0.46 [facility] Comment on above: Order Comment: Speci men Type: BLOOD SPECIMENOrdering Facility: [facility] Address: [address] [place] [address] Performed By: #### 5 7021-8 ####[facility] LABCLIA [id number] [place] [address] [place] Eosinophils/100 WBC (Bld) 4.9 % Normal [facility] Comment on above: Order Comment: Speci men Type: BLOOD SPECIMENOrdering Facility: [facility] Address: [address] [place] [address] Performed By: #### 5 7021-8 ####[facility] LABCLIA [id number] [place] [address] [place] Erythrocyte distribution width (RBC) [Ratio] 12.8 % Normal 11.5-15.0 [facility] Comment on above: Order Comment: Speci men Type: BLOOD SPECIMENOrdering Facility: [facility] Address: [address] [place] [address] Performed By: #### 5 7021-8 ####[facility] LABCLIA [id number] [place] [address] [place] Hematocrit (Bld) [Volume fraction] 40.9 % Normal 36.0-46.0 [facility] Comment on above: Order Comment: Speci men Type: BLOOD SPECIMENOrdering Facility: [facility] Address: [address] [place] [address] Performed By: #### 5 7021-8 ####[facility] LABCLIA [id number] [place] [address] [place] Hemoglobin (Bld) [Mass/Vol] 12.9 g/dL Normal 11.5-15.5 [facility] Comment on above: Order Comment: Speci men Type: BLOOD SPECIMENOrdering Facility: [facility] Address: [address] [place] [address] Performed By: #### 5 7021-8 ####[facility] LABCLIA [id number] [place] [address] [place] Immature granulocytes (Bld) [#/Vol] 0.05 10*3/uL Normal <0.10 [facility] Comment on above: Order Comment: Speci men Type: BLOOD SPECIMENOrdering Facility: [facility] Address: [address] [place] [address] Performed By: #### 5 7021-8 ####[facility] LABCLIA [id number] [place] [address] [place] Immature granulocytes/100 WBC (Bld) 0.6 % Normal [facility] Comment on above: Order Comment: Speci men Type: BLOOD SPECIMENOrdering Facility: [facility] Address: [address] [place] [address] Performed By: #### 5 7021-8 ####[facility] LABCLIA [id number] [place] [address] [place] Lymphocytes (Bld) [#/Vol] 2.95 10*3/uL Normal 1.00-4.00 [facility] Comment on above: Order Comment: Speci men Type: BLOOD SPECIMENOrdering Facility: [facility] Address: [address] [place] [address] Performed By: #### 5 7021-8 ####[facility] LABCLIA [id number] [place] [address] [place] Lymphocytes/100 WBC (Bld) 35.2 % Normal [facility] Comment on above: Order Comment: Speci men Type: BLOOD SPECIMENOrdering Facility: [facility] Address: [address] [place] [address] Performed By: #### 5 7021-8 ####[facility] LABCLIA [id number] [place] [address] [place] MCH (RBC) [Entitic mass] 28.6 pg Normal 26.0-34.0 [facility] Comment on above: Order Comment: Speci men Type: BLOOD SPECIMENOrdering Facility: [facility] Address: [address] [place] [address] Performed By: #### 5 7021-8 ####[facility] LABCLIA [id number] [place] [address] [place] MCHC (RBC) [Mass/Vol] 31.5 g/dL Normal 30.5-36.0 [facility] Comment on above: Order Comment: Speci men Type: BLOOD SPECIMENOrdering Facility: [facility] Address: [address] [place] [address] Performed By: #### 5 7021-8 ####[facility] LABCLIA [id number] [place] [address] [place] MCV (RBC) [Entitic vol] 90.7 fL Normal 80.0-100.0 [facility] Comment on above: Order Comment: Speci men Type: BLOOD SPECIMENOrdering Facility: [facility] Address: [address] [place] [address] Performed By: #### 5 7021-8 ####[facility] LABCLIA [id number] [place] [address] [place] Monocytes (Bld) [#/Vol] 0.63 10*3/uL Normal <0.87 [facility] Comment on above: Order Comment: Speci men Type: BLOOD SPECIMENOrdering Facility: [facility] Address: [address] [place] [address] Performed By: #### 5 7021-8 ####[facility] LABCLIA [id number] [place] [address] [place] Monocytes/100 WBC (Bld) 7.5 % Normal [facility] Comment on above: Order Comment: Speci men Type: BLOOD SPECIMENOrdering Facility: [facility] Address: [address] [place] [address] Performed By: #### 5 7021-8 ####[facility] LABCLIA [id number] [place] [address] [place] Neutrophils (Bld) [#/Vol] 4.30 10*3/uL Normal 1.45-7.50 [facility] Comment on above: Order Comment: Speci men Type: BLOOD SPECIMENOrdering Facility: [facility] Address: [address] [place] [address] Performed By: #### 5 7021-8 ####[facility] LABCLIA [id number] [place] [address] [place] Neutrophils/100 WBC (Bld) 51.2 % Normal [facility] Comment on above: Order Comment: Speci men Type: BLOOD SPECIMENOrdering Facility: [facility] Address: [address] [place] [address] Performed By: #### 5 7021-8 ####[facility] LABCLIA [id number] [place] [address] [place] Nucleated RBC (Bld) [#/Vol] 10*3/uL Normal <0.01 [facility] Comment on above: Order Comment: Speci men Type: BLOOD SPECIMENOrdering Facility: [facility] Address: [address] [place] [address] Performed By: #### 5 7021-8 ####[facility] LABCLIA [id number] [place] [address] [place] Nucleated RBC/100 WBC (Bld) [Ratio] 0.0 /100 WBC Normal [facility] Comment on above: Order Comment: Speci men Type: BLOOD SPECIMENOrdering Facility: [facility] Address: [address] [place] [address] Performed By: #### 5 7021-8 ####[facility] LABCLIA [id number] [place] [address] [place] Platelet mean volume (Bld) [Entitic vol] 10.2 fL Normal 9.0-12.7 [facility] Comment on above: Order Comment: Speci men Type: BLOOD SPECIMENOrdering Facility: [facility] Address: [address] [place] [address] Performed By: #### 5 7021-8 ####[facility] LABCLIA [id number] [place] [address] [place] Platelets (Bld) [#/Vol] 315 10*3/uL Normal 150-400 [facility] Comment on above: Order Comment: Speci men Type: BLOOD SPECIMENOrdering Facility: [facility] Address: [address] [place] [address] Performed By: #### 5 7021-8 ####[facility] LABCLIA [id number] [place] [address] [place] RBC (Bld) [#/Vol] 4.51 10*6/uL Normal 3.90-5.20 [facility] Comment on above: Order Comment: Speci men Type: BLOOD SPECIMENOrdering Facility: [facility] Address: [address] [place] [address] Performed By: #### 5 7021-8 ####[facility] LABCLIA [id number] [address] [address] [place] WBC (Bld) [#/Vol] 8.39 10*3/uL Normal 3.70-11.00 [facility] Comment on above: Order Comment: Speci men Type: BLOOD SPECIMENOrdering Facility: [facility] Address: [address] [place] [address] Performed By: #### 5 7021-8 ####[facility] LABCLIA [id number] [place] [address] [place] Comprehensive metabolic 2000 panelon 11-03-2023 Albumin [Mass/Vol] 4.8 g/dL Normal 3.9-4.9 [facility] Comment on above: Order Comment: Speci men Type: BLOOD SPECIMENOrdering Facility: [facility] Address: [address] [place] [address] Performed By: #### 2 4323-8 ####[facility] LABIA [id number] [place] [address] [place] ALP [Catalytic activity/Vol] 73 U/L Normal 34-123 [facility] Comment on above: Order Comment: Speci men Type: BLOOD SPECIMENOrdering Facility: [facility] Address: [address] [place] [address] Performed By: #### 2 4323-8 ####[facility] LABCLIA [id number] [place] [address] [place] ALT [Catalytic activity/Vol] 14 U/L Normal 7-38 [facility] Comment on above: Order Comment: Speci men Type: BLOOD SPECIMENOrdering Facility: [facility] Address: [address] [place] [address] Performed By: #### 2 4323-8 ####[facility] LABCLIA [id number] [place] [address] [place] Anion gap [Moles/Vol] 13 mmol/L Normal 9-18 [facility] Comment on above: Order Comment: Speci men Type: BLOOD SPECIMENOrdering Facility: [facility] Address: [address] [place] [address] Performed By: #### 2 4323-8 ####[facility] LABCLIA [id number] [place] [address] [place] AST [Catalytic activity/Vol] 17 U/L Normal 13-35 [facility] Comment on above: Order Comment: Speci men Type: BLOOD SPECIMENOrdering Facility: [facility] Address: [address] [place] [address] Performed By: #### 2 4323-8 ####[facility] LABCLIA [id number] [place] [address] [place] Bilirubin [Mass/Vol] 0.2 mg/dL Normal 0.2-1.3 [facility] Comment on above: Order Comment: Speci men Type: BLOOD SPECIMENOrdering Facility: [facility] Address: [address] [place] [address] Performed By: #### 2 4323-8 ####[facility] LABCLIA [id number] [place] [address] [place] Calcium [Mass/Vol] 10.7 mg/dL High 8.5-10.2 [facility] Comment on above: Order Comment: Speci men Type: BLOOD SPECIMENOrdering Facility: [facility] Address: [address] [place] [address] Performed By: #### 2 4323-8 ####[facility] LABCLIA [id number] [place] [id number] [place] Chloride [Moles/Vol] 101 mmol/L Normal 97-105 [facility] Comment on above: Order Comment: Speci men Type: BLOOD SPECIMENOrdering Facility: [facility] Address: [address] [place] [address] Performed By: #### 2 4323-8 ####[facility] LABCLIA [id number] [address] [place] CO2 [Moles/Vol] 28 mmol/L Normal 22-30 [facility] Comment on above: Order Comment: Speci men Type: BLOOD SPECIMENOrdering Facility: [facility] Address: [address] [place] [address] Performed By: #### 2 4323-8 ####[facility] LABCLIA [id number] [address] Creatinine [Mass/Vol] 0.92 mg/dL Normal 0.58-0.96 [facility] Comment on above: Order Comment: Speci men Type: BLOOD SPECIMENOrdering Facility: [facility] Address: [address] [place] [address] Performed By: #### 2 4323-8 ####[facility] LABCLIA [id number] [address] Creatinine and Glomerular filtration rate.predicted panel (S/P/Bld) 71 mL/min/1.73m??? Normal >=60 [facility] Comment on above: Order Comment: Speci men Type: BLOOD SPECIMENOrdering Facility: [facility] Address: [address] [place] [address] Result Comment: Luis mated Glomerular Filtration Rate (eGFR) is calculated using the 2020 CKD-EPI creatinine equation. This equation utilizes serum creatinine, sex, and age as parameters. The creatinine assay has traceable calibration to isotope dilution-mass spectrometry. Refer to KDIGO guidelines for clinical interpretation. In patients with unstable renal function, e.g. those with acute kidney injury, the eGFR may not accurately reflect actual GFR. Performed By: #### 2 4323-8 ####[facility] LABCLIA [id number] [address] [id number] [address] [place] Glucose [Mass/Vol] 125 mg/dL High 74-99 [facility] Comment on above: Order Comment: Speci men Type: BLOOD SPECIMENOrdering Facility: [facility] Address: [address] [place] [address] Result Comment: The [place] Diabetes [employer] (ADA) provides guidance for cutoff values for fasting glucose and random glucose. The ADA defines fasting as no caloric intake for at least 8 hours. Fasting plasma glucose results between 100 to 125 mg/dL indicate increased risk for diabetes (prediabetes). Fasting plasma glucose results greater than or equal to 126 mg/dL meet the criteria for diagnosis of diabetes. In the absence of unequivocal hyperglycemia, results should be confirmed by repeat testing. In a patient with classic symptoms of hyperglycemia or hyperglycemic crisis, random plasma glucose results greater than or equal to 200 mg/dL meet the criteria for diagnosis of diabetes. Reference: Standards of Medical Care in Diabetes 2016, [place] [employer]. Diabetes Care. 2016.39(Suppl 1). Performed By: #### 2 4323-8 ####[facility] LABCLIA [id number] [place] [address] [place] Potassium [Moles/Vol] 4.9 mmol/L Normal 3.7-5.1 [facility] Comment on above: Order Comment: Shlomo ghosh Type: BLOOD SPECIMENOrdering Facility: [facility] Address: [address] [place] [address] Performed By: #### 2 4323-8 ####[facility] LABIA [id number] [place] [address] [place] Protein [Mass/Vol] 7.8 g/dL Normal 6.3-8.0 [facility] Comment on above: Order Comment: Samiri men Type: BLOOD SPECIMENOrdering Facility: [facility] Address: [address] [place] [address] Performed By: #### 2 4323-8 ####[facility] LABCLIA [id number] [place] [address] [place] Sodium [Moles/Vol] 142 mmol/L Normal 136-144 [facility] Comment on above: Order Comment: Speci men Type: BLOOD SPECIMENOrdering Facility: [facility] Address: [address] [place] [address] Performed By: #### 2 4323-8 ####[facility] LABCLIA [id number] [address] [place] Urea nitrogen [Mass/Vol] 25 mg/dL High 7-21 [facility] Comment on above: Order Comment: Speci men Type: BLOOD SPECIMENOrdering Facility: [facility] Address: [place] [address] Performed By: #### 2 4323-8 ####[facility] LABCLIA [id number] [address] [place] [facility] HISTORY PHYSICALon HISTORY PHYSICAL HNO ID: [id number] Author: Wiliam Daniels APRN.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 Service: ? Author Type: Nurse Practitioner Type: HANDP Filed: 11/03/2023 1:01 PM Note Text: HISTORY AND PHYSICAL EXAMINATION SERVICE DATE: 11/03/2023 SERVICE TIME: 11:24 AM PRIMARY CARE PHYSICIAN: Collins Andrews MD Assessment Patient has the following medical conditions which may affect ruby-operative course: Neuropathy Assessment: BLE- treated with gabapentin Recent URI Assessment: Sinus symptoms started 2 weeks ago. Currently on day 3-4 of abx that she had left over from prior illness. Symptoms are overall improving. Symptoms include sinus drainage, green nasal drainage in the morning but clear throughout the day, and coughs a couple times a day. Denies fever, chills, SOB, or CP. Advised to call surgeon on 11/09 (due to holiday) if she has lingering symptoms. 100% on RA and lungs CTA. Anxiety Assessment: Patient denies dx Acquired hypothyroidism Assessment: on rx Asthma Assessment: Last use of albuterol and symbicort in the summer. She only uses inhalers PRN and summer is the worst. HTN (hypertension) Assessment: on rx, denies sob/cp Last 3 Encounter BP Readings: Date: BP: 11/03/2023 133/83 05/17/2023 155/71 05/12/2023 136/79 HLD (hyperlipidemia) Assessment: on rx Diabetes mellitus type 2, insulin dependent (HCC) Assessment: On rx, doesn't check home glucose readings, last A1C 07/27/23 6.1%. Will repeat today. Cardona Activity Status Index: METS: Climb a flight of stairs or walk up a hill (5.50 METs) DASI Score: 5.5 Patient denies any chest pain or undue shortness of breath with the above physical activity. Clinical Frailty Scale: 4. Apparently vulnerable STOP-Bang Score: Has or is being treated for high blood pressure Patient over 50 years old Denies snoring loudly Denies feeling tired, fatigued, or sleepy during the daytime Has not been observed to stop breathing or choking/gasping during sleep BMI less than or equal to 35 kg/m2 Does not have a large neck Non-male patient STOP-Bang Score: 2 [id number] Score: Age: <65 Sex: Female CHF history: No Hypertension history: Yes Stroke/TIA/thromboembol ism history: No Diabetes history: Yes [id number] Score: 3 ANESTHESIA FINDINGS: Intubation History: No history of difficult intubation. No abnormal airway history Significant Anesthesia Considerations: none Airway History: No history of difficult airway No abnormal airway history I - PHYSICAL EVALUATION AIRWAY Patient intubated: No. Tracheostomy tube not present Mallampati: II. TM distance: >3 FB. Neck ROM: full ROM without neurological symptoms. Mouth opening: adequate. Short neck: no. Thick neck: no Velez present: no Lip Bite Test: II Microretrognathia/Micro nagthia/Recessed Chin: No DENTAL Dentures, upper: complete. Additional exam findings: no CARDIOVASCULAR Carotid bruit not present. PULMONARY Normal pulmonary observations. ABDOMINAL Abdomen: soft. II - ANESTHESIA PLAN Anesthetic Plan: other Beta Vita Monitoring Plan Post Procedure Analgesic Plan REASON FOR VISIT: Marie Sexton is a 63 year old female who is scheduled for Procedure(s) with comments: REMOVAL HARDWARE FOOT (Right) - POPLITEAL BLOCK ARTHRODESIS MIDTARSAL OR TARSOMETATARSAL, MULTIPLE OR TRANSVERSE (Right) ARTHRODESIS FOOT (Right) at the request of Dr. Macario Santos for consultation. My final recommendation will be communicated back to the requesting physician by way of shared medical record or letter. 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 CHIEF COMPLAINT: Pre-op evaluation HPI: 63 year old female here for pre-op evaluation. Patient complains of right foot symptoms for years. Treated with 4-5 prior foot surgeries last in May 2023. Symptoms include constant pain, currently rated 7/10, and described as sharp/stabbing/burning. +BLE neuropathy. Hardware has started to work it's way out. Recommended for above surgery. REVIEW OF SYSTEMS: General: No weight loss, malaise or fevers. Neurological: Positive for: peripheral neuropathy. Negative for: headaches, multiple sclerosis, seizures and strokes. Respiratory: Positive for: asthma and current cough. Negative for: COPD, dyspnea, pratik (more content not included)... Normal [facility] HbA1c (Bld)on 11-03-2023 Average glucose Estimated from glycated hemoglobin (Bld) [Mass/Vol] 126 mg/dL Normal [facility] Comment on above: Order Comment: Shlomo ghosh Type: BLOOD SPECIMENOrdering Facility: [facility] Address: [address] [place] [address] Result Comment: eAG: (Estimated average glucose) is a calculated value from HgbA1c and is loss prevention representative of the average blood glucose level in the last 2-3 month period. Performed By: #### 5 5454-3 ####[facility] LABCLIA [id number] [facility] [id number] [place] [address] [place] HbA1c (Bld) [Mass fraction] 6.0 % High 4.3-5.6 [facility] Comment on above: Order Comment: Shlomo ghosh Type: BLOOD SPECIMENOrdering Facility: [facility] Address: [address] [place] [address] Result Comment: Amer [place] Diabetes Association guidelines indicate that patients with HgbA1c in the range 5.7-6.4% are at increased risk for development of diabetes, and intervention by lifestyle modification may be beneficial. HgbA1c greater or equal to 6.5% is considered diagnostic of diabetes. Performed By: #### 5 5454-3 ####[facility] LABCLIA [id number] [address] OF [facility] CT ANKLE WO IVCON RTon 10-14 CT ANKLE WO IVCON RT * * *Final Report* * * DATE OF EXAM: Oct 14 2023 12:19PM [facility] [place]LE [place] IVCON [place] / PROCEDURE REASON: Osteonecrosis (HCC) * * * * Physician Interpretation * * * * History: Osteonecrosis (HCC) Technique: CT ANKLE WO IVCON RT -- CT imaging was performed without administration of contrast: Dose-Length Product (DLP): 152 mGy*cm. CT Dose Reduction Employed: Automated exposure control (AEC) Comparison: Radiographs dated 09/06/2023 Result: Postoperative changes of tibiotalar calcaneal fusion with intramedullary jennifer and additional fixation hardware in the hindfoot and midfoot with dorsal and plantar plate and screws. The superior aspect of the intramedullary jennifer is not completely visualized on this examination. There is fracture of multiple screws at the plate and screw fixations with one of the dorsal screws partially backed out and extending into the soft tissues by approximately 6 mm. These findings are best appreciated on the 3-D reconstructions.. There is fragmentation and fracture of the talus adjacent to the jennifer. There is also fracture of the anterior tibial plafond and medial to the jennifer. There is no significant bony fusion seen across the tibiotalar or subtalar joints. No significant bony fusion is seen at the talonavicular articulation. Partial bony fusion is seen across the navicular cuneiform articulations. Bony fusion is noted across the calcaneal osteotomy. There is collapse of the normal midfoot arch better seen on the radiographs. The forefoot is normal except for mild degenerative changes at the first MTP joint with partially visualized hardware in the first toe proximal phalanx. Impression: 1. POSTOPERATIVE CHANGES WITH FRAGMENTATION AND FRACTURE OF THE TIBIAL PLAFOND AND TALUS DESCRIBED. NO BONY FUSION IS NOTED ACROSS THE TIBIOTALAR OR SUBTALAR JOINTS. COLLAPSE OF THE MIDFOOT ARCH. 2. MIDFOOT FUSION WITH HARDWARE WITH FRACTURE AND DISPLACEMENT OF MULTIPLE SCREWS IN THE MIDFOOT DESCRIBED. First Aid Nurse: SUBHASH Transcribe Date/Time: Oct 14 2023 12:22P Dictated by : LATRICIA LIN MD This examination was interpreted and the report reviewed and electronically signed by: LATRICIA LIN MD on Oct 14 2023 1:12PM EST [id number] Normal [facility] CNOVon 10-11-2023 CNOV Office Visit (ORTHLD ) MARIE SEXTON ([id number]) 1960 F Date Time Provider Department 10/11/23 1:15 PM MACARIO SANTOS During your visit today, we recorded the following information about you: Macario Santos DPM 10/12/2023 1:49 PM Signed PODIATRIC MEDICINE AND SURGERY OFFICE NOTE Complaint: Right Charcot surgical referral HPI: This 63 year old female presents to the clinic today status post right TTC fusion. Patient has been weightbearing without any assistance and she feels clicking in her midfoot. Patient denies any constitutional symptoms. Patient denies any calf or thigh pain. 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 numbness and tingling hands Snores Ulcer bilateral feet/ had for 2 years left foot and right foot for about 4 months / uses ointment to feet once a day. / ulcers are draining blood or no yellow or green draininage. Varicose veins Weakness arms and legs PAST SURGICAL HISTORY Procedure Laterality Date LIG/TRNSXJ FLP TUBE ABDL/VAG APPR UNI/BI Tubal ligation PAST SURGICAL HISTORY OF surgery to left foot x 5 PAST SURGICAL HISTORY OF right foot surgery x2 No current facility-administered medications for this visit. ALLERGIES Allergen Reactions Augmentin [Amoxicil* GI Upset Vomiting Codeine GI Upset Demerol [Meperidine* Other: See Comments patient unsure Doxycycline GI Upset Vomiting GI upset Morphine Itching FAMILY HISTORY Problem Relation Age of Onset Anesthesia Problems No Family History Social History Tobacco Use Smoking status: Former Packs/day: 1.50 Years: 10.00 Additional pack years: 0.00 Total pack years: 15.00 Types: Cigarettes Quit date: 04/24/2009 Years since quittin.4 Substance Use Topics Alcohol use: Yes Comment: occasional Drug use: No --------- Current Opioids Analgesic Opioid Agonists Start End traMADol (ULTRAM) 50 mg tablet 10/11/2023 -- Sig - Route: Take 1 tablet by mouth every 6 hours as needed for pain. for pain. - ORAL CHAYITO Modifiable Risk Factors (MoRF) Obesity Unknown Risk High: BMI > 40 Moderate: BMI 30-40 Normal: BMI < 30 Diabetes Moderate Risk High: A1C > 8 Moderate: A1C 7-8 Normal: A1C < 7 Smoking normal High: Current smoker Normal: Non smoker Anemia normal High: Hgb < 11.5 (women) N/A: Hgb >= 11.5 (women) Nutritional Status normal High: Alb<3.4, or prealb<15, or serum transferrin<200, or total lymphocyte count<1500 Normal: normal labs Narcotics Use High Risk High:NarxCare >=300 Moderate: 100-299 Normal: 0-99 Obesity: height and/or weight are out of date (There is no height and/or weight reading in the past 365 days, so the below BMI readings may be inaccurate) BMI Readings from Last 3 Encounters: 05/18/23 : 28.56 kg/m? 05/12/23 : 26.52 kg/m? 02/24/21 : 29.03 kg/m? Diabetes: Well controlled - Marie has been diagnosed with Type 2 Diabetes. Her last Hemoglobin A1C was 5.7 (04/12/2014). NarxCare score NARX Narcotics: 380 (10/11/2023 12:11 PM) ------- REVIEW OF SYSTEMS: CONSTITUTIONAL: No fevers, chills, nightsweats, unintended weight loss HEENT: Denies frequent or severe headaches, nasal congestion/sinus symptoms, problematic allergy problems. EYES: No diplopia or blurry vision. CARDIOVASCULAR: No chest pain, dyspnea, palpitations, orthopnea, PND. PULM: No dyspnea, unexplained cough. GI: No dysphagia/odynophagia, problematic reflux, constipation, diarrhea, changes in stool habits, hematochezia, melena. : No new urinary complaints, including dysuria, gross hematuria or pyuria. NEURO: No new balance problems, peripheral weakness/paresthesias or numbness of concern. MUSC-SKEL: No new joint pain, swelling, or erythema. PSY: No concerns regarding depression, anxiety or panic. INTEGUMENTARY: Skin changes as noted below. I have confirmed and edited as necessary, the PFSH and ROS obtained by others. OBJECTIVE: Patient (more content not included)... Normal [facility] XR FOOT 3V AP/LAT/OBL BILon 10-11-2023 XR FOOT 3V AP/LAT/OBL FRANCESCO * * *Final Report* * * DATE OF EXAM: Oct 11 2023 12:28PM LFX [id number] - XR FOOT 3V AP/LAT/OBL FRANCESCO / PROCEDURE REASON: multiple diagnoses * * * * Physician Interpretation * * * * EXAMINATION: XR FOOT 3V AP/LAT/OBL FRANCESCO CLINICAL HISTORY: Bilateral foot pain Technique: XR FOOT 3V AP/LAT/OBL FRANCESCO -- BILATERAL with 5 views on 5 images Comparison: X-ray bilateral feet 02/24/2021 and x-ray right ankle 09/06/2023 RESULT: Right foot: Again noted are postoperative changes from tibiotalar, talocalcaneal and medial midfoot arthrodesis. Hardware is intact. Remote fusion of the interphalangeal joint of the right first toe. Hardware is intact. No acute fracture or dislocation. Remote healed fracture of the right fifth metatarsal. Right first metatarsophalangeal joint space narrowing with marginal osteophytes. Flattening of the arch of the right foot. Left foot: Left first metatarsophalangeal arthrodesis with a plate and screws. Amputation of the left fifth toe. Ankylosis of the PIP joint of the left second toe. Flattening of the arch of the left foot. Narrowing of multiple joints of the left midfoot with hypertrophic changes IMPRESSION: 1. No acute fracture or dislocation 2. Postoperative changes as described above 3. Collapse of the arch of the left foot, possibly due to Charcot arthropathy First Aid Nurse: PSCB Transcribe Date/Time: Oct 14 2023 9:07A Dictated by : REGI WOODS MD This examination was interpreted and the report reviewed and electronically signed by: REGI WOODS MD on Oct 14 2023 9:15AM EST [id number] Normal [facility] CNOVon 09-06-2023 CNOV Office Visit (ORTHKRISTEN ) MARIE SEXTON ([id number]) 1960 F Date Time Provider Department 09/06/23 1:45 PM MACARIO SANTOS During your visit today, we recorded the following information about you: Macario Santos FLASH Zuniga 09/07/2023 2:25 PM Addendum PODIATRIC MEDICINE AND SURGERY OFFICE NOTE Complaint: Right Charcot surgical referral HPI: This 63 year old female presents to the clinic today status post right TTC fusion. Patient has been weightbearing without any assistance and she is doing well with this on the right side however states that she feels clicking in her midfoot. Reviewing her x-rays it appears that the plate has loosened that was previously placed by another surgeon. The patient also states that she had a cyst on her left tibia that had a piece of bone come out of it. She brought this to show me. Patient denies any constitutional symptoms. Patient denies any calf or thigh pain. 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 numbness and tingling hands Snores Ulcer bilateral feet/ had for 2 years left foot and right foot for about 4 months / uses ointment to feet once a day. / ulcers are draining blood or no yellow or green draininage. Varicose veins Weakness arms and legs PAST SURGICAL HISTORY Procedure Laterality Date LIG/TRNSXJ FLP TUBE ABDL/VAG APPR UNI/BI Tubal ligation PAST SURGICAL HISTORY OF surgery to left foot x 5 PAST SURGICAL HISTORY OF right foot surgery x2 No current facility-administered medications for this visit. ALLERGIES Allergen Reactions Augmentin [Amoxicil* GI Upset Vomiting Codeine GI Upset Demerol [Meperidine* Other: See Comments patient unsure Doxycycline GI Upset Vomiting GI upset Morphine Itching FAMILY HISTORY Problem Relation Age of Onset Anesthesia Problems No Family History Social History Tobacco Use Smoking status: Former Packs/day: 1.50 Years: 10.00 Additional pack years: 0.00 Total pack years: 15.00 Types: Cigarettes Quit date: 04/24/2009 Years since quittin.3 Substance Use Topics Alcohol use: Yes Comment: occasional Drug use: No --------- Current Opioids Analgesic Opioid Agonists Start End traMADol (ULTRAM) 50 mg tablet 09/06/2023 -- Sig - Route: Take 1 tablet by mouth every 6 hours as needed for pain. - ORAL CHAYITO Modifiable Risk Factors (MoRF) Obesity Unknown Risk High: BMI > 40 Moderate: BMI 30-40 Normal: BMI < 30 Diabetes Moderate Risk High: A1C > 8 Moderate: A1C 7-8 Normal: A1C < 7 Smoking normal High: Current smoker Normal: Non smoker Anemia normal High: Hgb < 11.5 (women) N/A: Hgb >= 11.5 (women) Nutritional Status normal High: Alb<3.4, or prealb<15, or serum transferrin<200, or total lymphocyte count<1500 Normal: normal labs Narcotics Use High Risk High:NarxCare >=300 Moderate: 100-299 Normal: 0-99 Obesity: height and/or weight are out of date (There is no height and/or weight reading in the past 365 days, so the below BMI readings may be inaccurate) BMI Readings from Last 3 Encounters: 05/18/23 : 28.56 kg/m? 05/12/23 : 26.52 kg/m? 02/24/21 : 29.03 kg/m? Diabetes: Well controlled - Marie has been diagnosed with Type 2 Diabetes. Her last Hemoglobin A1C was 5.7 (04/12/2014). NarxCare score NARX Narcotics: 390 (09/06/2023 1:00 PM) ------- REVIEW OF SYSTEMS: CONSTITUTIONAL: No fevers, chills, nightsweats, unintended weight loss HEENT: Denies frequent or severe headaches, nasal congestion/sinus symptoms, problematic allergy problems. EYES: No diplopia or blurry vision. CARDIOVASCULAR: No chest pain, dyspnea, palpitations, orthopnea, PND. PULM: No dyspnea, unexplained cough. GI: No dysphagia/odynophagia, problematic reflux, constipation, diarrhea, changes in stool habits, hematochezia, melena. : No new urinary complaints, including dysuria, gross hematuria or pyuria. NEURO: No new balance problems, peripheral weakness/ (more content not included)... Normal [facility] XR ANKLE 3V AP/LAT/OBL LTon 09-06-2023 XR ANKLE 3V AP/LAT/OBL LT * * *Final Report* * * DATE OF EXAM: Sep 06 2023 1:28PM LFX [id number] - XR ANKLE 3V AP/LAT/OBL LT / PROCEDURE REASON: Deformity of metatarsal bone of right foot * * * * Physician Interpretation * * * * EXAM TITLE: XR ANKLE 3V AP/LAT/OBL RT, XR ANKLE 3V AP/LAT/OBL LT EXAM DATE/TIME: 09/06/2023 1:28 PM COMPARISON: X-ray ankle on 08/05/2023 CLINICAL INDICATION/HISTORY: Diabetes. TECHNIQUE: AP, mortise and lateral views of both ankles are presented. FINDINGS: Right ankle: There are postoperative changes from tibiotalar and talocalcaneal arthrosis, with stable hardware. An intramedullary jennifer in the tibia with multiple surgical screws. There is hardware transfixing multiple joints of the midfoot, with a fractured surgical screw along the anterior aspect of the midfoot. Some degenerative changes noted. There appears be loss of the foot arch. Resection of the distal fibula is again demonstrated. There is no significant soft tissue swelling. Left ankle: No acute fractures or subluxations are noted. Ghost tracts visualized in the distal tibia and calcaneus. There are degenerative changes and probably some debris in the midfoot. There appears to be rocker-bottom foot with collapse of the foot arch, seen on lateral view. Probably small ankle joint effusion. The mineralization of the bones is normal. There is no significant soft tissue swelling. IMPRESSION: Postoperative changes in the right ankle and foot as described above. Appearance of rocker-bottom left foot with collapse of the foot arch and degenerative changes/debris in the midfoot, raising concern for Charcot foot. Please clinically correlate. First Aid Nurse: SUBHASH Transcribe Date/Time: Sep 09 2023 8:54A Dictated by : AGAPITO PINZON MD This examination was interpreted and the report reviewed and electronically signed by: AGAPITO PINZON MD on Sep 09 2023 9:15AM EST [id number] Normal [facility] XR ANKLE 3V AP/LAT/OBL RTon 09-06-2023 XR ANKLE 3V AP/LAT/OBL RT * * *Final Report* * * DATE OF EXAM: Sep 06 2023 1:28PM LFX [id number] - XR ANKLE 3V AP/LAT/OBL RT / PROCEDURE REASON: multiple diagnoses * * * * Physician Interpretation * * * * EXAM TITLE: XR ANKLE 3V AP/LAT/OBL RT, XR ANKLE 3V AP/LAT/OBL LT EXAM DATE/TIME: 09/06/2023 1:28 PM COMPARISON: X-ray ankle on 08/05/2023 CLINICAL INDICATION/HISTORY: Diabetes. TECHNIQUE: AP, mortise and lateral views of both ankles are presented. FINDINGS: Right ankle: There are postoperative changes from tibiotalar and talocalcaneal arthrosis, with stable hardware. An intramedullary jennifer in the tibia with multiple surgical screws. There is hardware transfixing multiple joints of the midfoot, with a fractured surgical screw along the anterior aspect of the midfoot. Some degenerative changes noted. There appears be loss of the foot arch. Resection of the distal fibula is again demonstrated. There is no significant soft tissue swelling. Left ankle: No acute fractures or subluxations are noted. Ghost tracts visualized in the distal tibia and calcaneus. There are degenerative changes and probably some debris in the midfoot. There appears to be rocker-bottom foot with collapse of the foot arch, seen on lateral view. Probably small ankle joint effusion. The mineralization of the bones is normal. There is no significant soft tissue swelling. IMPRESSION: Postoperative changes in the right ankle and foot as described above. Appearance of rocker-bottom left foot with collapse of the foot arch and degenerative changes/debris in the midfoot, raising concern for Charcot foot. Please clinically correlate. First Aid Nurse: SUBHASH Transcribe Date/Time: Sep 09 2023 8:54A Dictated by : AGAPITO PINZON MD This examination was interpreted and the report reviewed and electronically signed by: AGAPTIO PINZON MD on Sep 09 2023 9:15AM EST [id number] Normal [facility] CNOVon 08-05-2023 CNOV Office Visit (ORTHLD ) MARIE SEXTON ([id number]) 1960 F Date Time Provider Department 08/05/23 3:00 PM MACARIO SANTOS During your visit today, we recorded the following information about you: Macario Santos DPM 08/17/2023 11:59 AM Addendum PODIATRIC MEDICINE AND SURGERY OFFICE NOTE Complaint: Right Charcot surgical referral HPI: This 63 year old female presents to the clinic today status post right TTC fusion. The patient has been doing very well and is in a boot. She states she has been compliant with her weightbearing status. Patient is looking to start weightbearing out of the boot. We will get her a brace for this. Patient denies any constitutional symptoms. Patient denies any calf or thigh pain. 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 numbness and tingling hands Snores Ulcer bilateral feet/ had for 2 years left foot and right foot for about 4 months / uses ointment to feet once a day. / ulcers are draining blood or no yellow or green draininage. Varicose veins Weakness arms and legs PAST SURGICAL HISTORY Procedure Laterality Date LIG/TRNSXJ FLP TUBE ABDL/VAG APPR UNI/BI Tubal ligation PAST SURGICAL HISTORY OF surgery to left foot x 5 PAST SURGICAL HISTORY OF right foot surgery x2 No current facility-administered medications for this visit. ALLERGIES Allergen Reactions Codeine GI Upset Demerol [Meperidine* Other: See Comments patient unsure Morphine Itching FAMILY HISTORY Problem Relation Age of Onset Anesthesia Problems No Family History Social History Tobacco Use Smoking status: Former Packs/day: 1.50 Years: 10.00 Additional pack years: 0.00 Total pack years: 15.00 Types: Cigarettes Quit date: 04/24/2009 Years since quittin.3 Substance Use Topics Alcohol use: Yes Comment: occasional Drug use: No --------- Current Opioids Analgesic Opioid Agonists Start End traMADol (ULTRAM) 50 mg tablet 08/05/2023 -- Sig - Route: Take 1 tablet by mouth every 4 hours as needed for pain. for pain. - ORAL CHAYITO Modifiable Risk Factors (MoRF) Obesity Unknown Risk High: BMI > 40 Moderate: BMI 30-40 Normal: BMI < 30 Diabetes Moderate Risk High: A1C > 8 Moderate: A1C 7-8 Normal: A1C < 7 Smoking normal High: Current smoker Normal: Non smoker Anemia normal High: Hgb < 11.5 (women) N/A: Hgb >= 11.5 (women) Nutritional Status normal High: Alb<3.4, or prealb<15, or serum transferrin<200, or total lymphocyte count<1500 Normal: normal labs Narcotics Use High Risk High:NarxCare >=300 Moderate: 100-299 Normal: 0-99 Obesity: height and/or weight are out of date (There is no height and/or weight reading in the past 365 days, so the below BMI readings may be inaccurate) BMI Readings from Last 3 Encounters: 07/04/23 : 28.56 kg/m? 05/12/23 : 26.52 kg/m? 02/24/21 : 29.03 kg/m? Diabetes: Well controlled - Marie has been diagnosed with Type 2 Diabetes. Her last Hemoglobin A1C was 5.7 (04/12/2014). NarxCare score NARX Narcotics: 380 (08/05/2023 1:57 PM) ------- REVIEW OF SYSTEMS: CONSTITUTIONAL: No fevers, chills, nightsweats, unintended weight loss HEENT: Denies frequent or severe headaches, nasal congestion/sinus symptoms, problematic allergy problems. EYES: No diplopia or blurry vision. CARDIOVASCULAR: No chest pain, dyspnea, palpitations, orthopnea, PND. PULM: No dyspnea, unexplained cough. GI: No dysphagia/odynophagia, problematic reflux, constipation, diarrhea, changes in stool habits, hematochezia, melena. : No new urinary complaints, including dysuria, gross hematuria or pyuria. NEURO: No new balance problems, peripheral weakness/paresthesias or numbness of concern. MUSC-SKEL: No new joint pain, swelling, or erythema. PSY: No concerns regarding depression, anxiety or panic. INTEGUMENTARY: Skin changes as noted below. I have confirmed and edited as necessary, the PFSH and ROS obtain (more content not included)... Normal [facility] XR ANKLE 3V AP/LAT/OBL RTon 08-05-2023 XR ANKLE 3V AP/LAT/OBL RT * * *Final Report* * * DATE OF EXAM: Aug 05 2023 2:14PM LFX [id number] - XR ANKLE 3V AP/LAT/OBL RT / PROCEDURE REASON: Disease of bone * * * * Physician Interpretation * * * * EXAMINATION: XR ANKLE 3V AP/LAT/OBL RT CLINICAL HISTORY: Charcot ankle Technique: XR ANKLE 3V AP/LAT/OBL RT -- RIGHT with 3 views on 3 images Comparison: X-ray right ankle 07/02/2023 RESULT: Again noted are postoperative changes from tibiotalar and talocalcaneal arthrodesis. Hardware is intact. Alignment is unchanged. Hardware transfixing multiple joints of the midfoot is visualized in the lateral projection. Screw overlying the tarsometatarsal joints in the lateral projection is broken. There has been resection of the distal fibula. No acute fracture or dislocation. Plantar calcaneal spur. IMPRESSION: Postoperative changes as described above. There is a broken screw overlying the tarsometatarsal joints visible in the lateral projection only. First Aid Nurse: PSCB Transcribe Date/Time: Aug 09 2023 12:30P Dictated by : REGI WOODS MD This examination was interpreted and the report reviewed and electronically signed by: REGI WOODS MD on Aug 09 2023 12:34PM EST [id number] Normal [facility] ALBUMIN, URINE SPOTon 2022 ALBUMIN,URINE <7.0 Normal Not Established [facility] Comment on above: Performed By: #### A LBSP #### [address] [address] ALBUMIN/CREAT RATIO SEE COMMENT Normal 0.0 - 30.0 [facility] Comment on above: Result Comment: One or more analytes used in this calculation is outside of the analytical measurement range. Calculation cannot be performed. Performed By: #### A LBSP #### [address] [address] CREATININE,URINE 147.0 mg/dL Normal 20.0 - 320.0 [facility] Comment on above: Performed By: #### A LBSP #### [address] [address] CBC AND DIFFERENTIALon 07-27 % AUTOMATED IMMATURE GRAN 0.3 % Normal 0.0 - 0.9 [facility] Comment on above: Result Comment: Coni ture Granulocyte Count (IG) includes promyelocytes, myelocytes and metamyelocytes but does not include bands. Percent differential counts (%) should be interpreted in the context of the absolute cell counts (cells/L). Performed By: #### C BCDF #### [address] [address] Basophils (Bld) [#/Vol] 0.06 10*3/uL Normal 0.00 - 0.10 [facility] Comment on above: Performed By: #### C BCDF #### [address] [address] Basophils/100 WBC (Bld) 0.9 % Normal 0.0 - 2.0 [facility] Comment on above: Performed By: #### C BCDF #### [address] [address] Eosinophils (Bld) [#/Vol] 0.28 10*3/uL Normal 0.00 - 0.70 [facility] Comment on above: Performed By: #### C BCDF #### [address] [address] Eosinophils/100 WBC (Bld) 4.1 % Normal 0.0 - 6.0 [facility] Comment on above: Performed By: #### C BCDF #### [address] [address] Erythrocyte distribution width (RBC) [Ratio] 12.6 % Normal 11.5 - 14.5 [facility] Comment on above: Performed By: #### C BCDF #### [address] [address] Hematocrit (Bld) [Volume fraction] 40.3 % Normal 36.0 - 46.0 [facility] Comment on above: Performed By: #### C BCDF #### [address] [address] Hemoglobin (Bld) [Mass/Vol] 13.0 g/dL Normal 12.0 - 16.0 [facility] Comment on above: Performed By: #### C BCDF #### [address] [address] Lymphocytes (Bld) [#/Vol] 2.95 10*3/uL Normal 1.20 - 4.80 [facility] Comment on above: Performed By: #### C BCDF #### [address] [address] Lymphocytes/100 WBC (Bld) 42.8 % Normal 13.0 - 44.0 [facility] Comment on above: Performed By: #### C BCDF #### [address] [address] MCHC (RBC) [Mass/Vol] 32.3 g/dL Normal 32.0 - 36.0 [facility] Comment on above: Performed By: #### C BCDF #### [address] [address] MCV (RBC) [Entitic vol] 91 fL Normal 80 - 100 [facility] Comment on above: Performed By: #### C BCDF #### [address] [address] Monocytes (Bld) [#/Vol] 0.54 10*3/uL Normal 0.10 - 1.00 [facility] Comment on above: Performed By: #### C BCDF #### [address] [address] Monocytes/100 WBC (Bld) 7.8 % Normal 2.0 - 10.0 [facility] Comment on above: Performed By: #### C BCDF #### [address] [address] Neutrophils (Bld) [#/Vol] 3.05 10*3/uL Normal 1.20 - 7.70 [facility] Comment on above: Performed By: #### C BCDF #### [address] [address] Neutrophils/100 WBC (Bld) 44.1 % Normal 40.0 - 80.0 [facility] Comment on above: Performed By: #### C BCDF #### [address] [address] NUCLEATED RBC 0.0 /100 WBC Normal 0.0 - 0.0 [facility] Comment on above: Performed By: #### C BCDF #### [address] [address] Platelets (Bld) [#/Vol] 358 10*3/uL Normal 150 - 450 [facility] Comment on above: Performed By: #### C BCDF #### [facility] [address] [place] [address] RBC 4.42 x10E12/L Normal 4.00 - 5.20 [facility] Comment on above: Performed By: #### C BCDF #### [facility] [address] [place] [address] WBC (Bld) [#/Vol] 6.9 10*3/uL Normal 4.4 - 11.3 [facility] Comment on above: Performed By: #### C BCDF #### [facility] [address] [place] [address] COMPREHENSIVE PANELon 2022 Albumin [Mass/Vol] 4.5 g/dL Normal 3.4 - 5.0 [facility] Comment on above: Performed By: #### C OVSC #### [facility] [address] [place] [address] ALP [Catalytic activity/Vol] 85 U/L Normal 33 - 136 [facility] Comment on above: Performed By: #### C OVSC #### [facility] [address] [place] [address] ALT [Catalytic activity/Vol] 14 U/L Normal 7 - 45 [facility] Comment on above: Result Comment: Shaista ents treated with Sulfasalazine may generate falsely decreased results for ALT. Performed By: #### C OVSC #### [facility] [address] [place] [address] Anion gap [Moles/Vol] 11 mmol/L Normal 10 - 20 [facility] Comment on above: Performed By: #### C OVSC #### [facility] [address] [place] [address] AST [Catalytic activity/Vol] 14 U/L Normal 9 - 39 [facility] Comment on above: Performed By: #### C OVSC #### [facility] [address] [place] [address] Bilirubin [Mass/Vol] 0.4 mg/dL Normal 0.0 - 1.2 [facility] Comment on above: Performed By: #### C OVSC #### [facility] [address] [place] [address] Calcium [Mass/Vol] 9.7 mg/dL Normal 8.6 - 10.3 [facility] Comment on above: Performed By: #### C OVSC #### [facility] [address] [place] [address] Chloride [Moles/Vol] 105 mmol/L Normal 98 - 107 [facility] Comment on above: Performed By: #### C OVSC #### [place] [address] [place] [address] Creatinine [Mass/Vol] 1.06 mg/dL High 0.50 - 1.05 [facility] Comment on above: Performed By: #### C OVSC #### [facility] [address] [place] [address] GFR/1.73 sq M.predicted among non-blacks MDRD (S/P/Bld) [Vol rate/Area] 59 mL/min/{1.73_m2} Abnormal >90 [facility] Comment on above: Result Comment: CALC ULATIONS OF ESTIMATED GFR ARE PERFORMED USING THE 2020 CKD-EPI STUDY REFIT EQUATION WITHOUT THE RACE VARIABLE FOR THE IDMS-TRACEABLE CREATININE METHODS. https://jasn.asnjournals.org/content/early/ASN.9298727 988 Performed By: #### C OVSC #### [facility] [address] [place] [address] Glucose [Mass/Vol] 109 mg/dL High 74 - 99 [facility] Comment on above: Performed By: #### C OVSC #### [facility] [address] [place] [address] HCO3 (Bld) [Moles/Vol] 28 mmol/L Normal 21 - 32 [facility] Comment on above: Performed By: #### C OVSC #### [facility] [address] [place] [address] Potassium [Moles/Vol] 4.2 mmol/L Normal 3.5 - 5.3 [facility] Comment on above: Performed By: #### C OVSC #### [facility] [address] [place] [address] Protein [Mass/Vol] 7.7 g/dL Normal 6.4 - 8.2 [facility] Comment on above: Performed By: #### C OVSC #### [facility] [address] [place] [address] Sodium [Moles/Vol] 140 mmol/L Normal 136 - 145 [facility] Comment on above: Performed By: #### C OVSC #### [facility] [address] [place] [address] Urea nitrogen [Mass/Vol] 23 mg/dL Normal 6 - 23 [facility] Comment on above: Performed By: #### C OVSC #### [facility] [address] [place] [address] HEMOGLOBIN A1Con 07-27-2023 Glucose [Mass/Vol] 128 mg/dL Normal [facility] Comment on above: Performed By: #### A LBSP #### [facility] [address] [place] [address] HbA1c (Bld) [Mass fraction] 6.1 % Abnormal [facility] Comment on above: Result Comment: Diag nosis of Diabetes-Adults Non-Diabetic: < or = 5.6% Increased risk for developing diabetes: 5.7-6.4% Diagnostic of diabetes: > or = 6.5% . Monitoring of Diabetes Age (y) Therapeutic Goal (%) Adults: >18 <7.0 Pediatrics: 13-18 <7.5 7-12 <8.0 0- 6 7.5-8.5 [place] [employer]. Diabetes Care 33(S1), Nov 2009. Performed By: #### A LBSP #### [facility] [address] [place] [address] LDL, DIRECTon 07-27-2023 Cholesterol in LDL [Mass/Vol] 106 mg/dL Normal 0 - 129 [facility] Comment on above: Result Comment: Elev ated levels of LDL cholesterol are recognized as a fisher factor in the development of atherosclerosis and CHD. The direct LDL cholesterol test can be used to assess cardiovascular risk and monitor therapy as a follow up to a lipid profile when triglycerides are significantly elevated. Performed By: #### A LBSP #### [facility] [address] [place] [address] LIPID PANEL (CORONARY RISK 2 )on 07-27-2023 Cholesterol [Mass/Vol] 183 mg/dL Normal 0 - 199 [facility] Comment on above: Result Comment: . AGE DESIRABLE BORDERLINE HIGH HIGH 0-19 Y 0 - 169 170 - 199 >/= 200 20-24 Y 0 - 189 190 - 224 >/= 225 >24 Y 0 - 199 200 - 239 >/= 240 All ranges are based on fasting samples. Specific therapeutic targets will vary based on patient-specific cardiac risk. . Pediatric guidelines reference:Pediatrics 2011, 128(S5). Adult guidelines reference: NCEP ATPIII Guidelines, EMELI 2001, 258:2486-97 . Venipuncture immediately after or during the administration of Metamizole may lead to falsely low results. Testing should be performed immediately prior to Metamizole dosing. Performed By: #### C OVSC #### [facility] [address] [place] [address] Cholesterol in HDL [Mass/Vol] 33.1 mg/dL Abnormal [facility] Comment on above: Result Comment: . AGE VERY LOW LOW NORMAL HIGH 0-19 Y < 35 < 40 40-45 ---- 20-24 Y ---- < 40 >45 ---- >24 Y ---- < 40 40-60 >60 . Performed By: #### C OVSC #### [facility] [address] [place] [address] Cholesterol in LDL [Mass/Vol] 92 mg/dL Normal 0 - 99 [facility] Comment on above: Result Comment: . NEAR BORD AGE DESIRABLE OPTIMAL HIGH HIGH VERY HIGH 0-19 Y 0 - 109 --- 110-129 >/= 130 ---- 20-24 Y 0 - 119 --- 120-159 >/= 160 ---- >24 Y 0 - 99 100-129 130-159 160-189 >/=190 . Performed By: #### C OVSC #### [facility] [address] [place] [address] Cholesterol in VLDL [Mass/Vol] 58 mg/dL High 0 - 40 [facility] Comment on above: Performed By: #### C OVSC #### [facility] [address] [place] [address] Cholesterol.total/Ch olesterol in HDL [Mass ratio] 5.5 {ratio} Abnormal [facility] Comment on above: Result Comment: REF VALUES DESIRABLE < 3.4 HIGH RISK > 5.0 Performed By: #### C OVSC #### [facility] [address] [place] [address] NON-HDL CHOLESTEROL 150 mg/dL Normal [facility] Comment on above: Result Comment: AGE DESIRABLE BORDERLINE HIGH HIGH VERY HIGH 0-19 Y 0 - 119 120 - 144 >/= 145 >/= 160 20-24 Y 0 - 149 150 - 189 >/= 190 ---- >24 Y 30 MG/DL ABOVE LDL CHOLESTEROL GOAL . Performed By: #### C OVSC #### [facility] [address] [place] [address] Triglyceride [Mass/Vol] 288 mg/dL High 0 - 149 [facility] Comment on above: Result Comment: . AGE DESIRABLE BORDERLINE HIGH HIGH VERY HIGH 0 D-90 D 19 - 174 ---- ---- ---- 91 D- 9 Y 0 - 74 75 - 99 >/= 100 ---- 10-19 Y 0 - 89 90 - 129 >/= 130 ---- 20-24 Y 0 - 114 115 - 149 >/= 150 ---- >24 Y 0 - 149 150 - 199 200- 499 >/= 500 . Venipuncture immediately after or during the administration of Metamizole may lead to falsely low results. Testing should be performed immediately prior to Metamizole dosing. Performed By: #### C OVSC #### [facility] [address] [place] [address] TSHon 07-27-2023 TSH Qn 0.61 m[IU]/L Normal 0.44 - 3.98 [facility] Comment on above: Result Comment: TSH testing is performed using different testing methodology at [facility] than at other [facility]. Direct result comparisons should only be made within the same method. Performed By: #### A LBSP #### [facility] [address] [place] [address] VITAMIN B12on 07-27-2023 Cobalamin (Vitamin B12) [Mass/Vol] 1408 pg/mL High 211 - 911 [facility] Comment on above: Performed By: #### V TB12 #### [facility] [address] [place] [address] VITAMIN D, 25-HYDROXYon 07-16 VITAMIN D, 25-HYDROXY 50 ng/mL Normal [facility] Comment on above: Result Comment: . DEFICIENCY: < 20 NG/ML INSUFFICIENCY: 20-29 NG/ML SUFFICIENCY: 30-100 NG/ML THIS ASSAY ACCURATELY QUANTIFIES THE SUM OF VITAMIN D3, 25-HYDROXY AND VIT D2,25-HYDROXY. Performed By: #### V TDOH #### [facility] [address] [place] [address] ALLIED HEALTHon 07-02-2023 [facility] HNO ID: [id number] Author: Francesca Kaur Service: Radiology Author Type: ? Type: Allied Health Filed: 07/02/2023 10:12 AM Note Text: RADIOLOGY SERVICE PROGRESS NOTE DATE OF SERVICE: July 02, 2023 TIME OF SERVICE: 10:03AM EVENT: ARRIVED IN WHEELCHAIR ADDITIONAL EVENT DETAILS: NA SIGNATURE: Francesca Kaur PATIENT NAME: Marie Sexton DATE: July 02, 2023 TIME: 10:12 AM PAGER/CONTACT #: [facility] CNOVon 07-02-2023 CNOV Office Visit (ORFWHP ) MARIE SEXTON ([id number]) 1960 F Date Time Provider Department 07/02/23 10:45 AM MACARIO SANTOS ORFP During your visit today, we recorded the following information about you: Macario Santos DPM 07/05/2023 12:24 PM Signed PODIATRIC MEDICINE AND SURGERY OFFICE NOTE Complaint: Right Charcot surgical referral HPI: This 63 year old female presents to the clinic today status post right TTC fusion. The patient has been doing very well and is in a boot. She states she has been compliant with her nonweightbearing status. Patient denies any constitutional symptoms. Patient denies any calf or thigh pain. 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 numbness and tingling hands Snores Ulcer bilateral feet/ had for 2 years left foot and right foot for about 4 months / uses ointment to feet once a day. / ulcers are draining blood or no yellow or green draininage. Varicose veins Weakness arms and legs PAST SURGICAL HISTORY Procedure Laterality Date LIG/TRNSXJ FLP TUBE ABDL/VAG APPR UNI/BI Tubal ligation PAST SURGICAL HISTORY OF surgery to left foot x 5 PAST SURGICAL HISTORY OF right foot surgery x2 No current facility-administered medications for this visit. ALLERGIES Allergen Reactions Codeine GI Upset Demerol [Meperidine* Other: See Comments patient unsure Morphine Itching FAMILY HISTORY Problem Relation Age of Onset Anesthesia Problems No Family History Social History Tobacco Use Smoking status: Former Packs/day: 1.50 Years: 10.00 Additional pack years: 0.00 Total pack years: 15.00 Types: Cigarettes Quit date: 04/24/2009 Years since quittin.2 Substance Use Topics Alcohol use: Yes Comment: occasional Drug use: No --------- Current Opioids Analgesic Opioid Oxycodone Combinations Start End oxyCODONE-acetaminophen (PERCOCET) 5-325 mg tablet 06/21/2023 Sig - Route: Take 1 tablet by mouth every 6 hours as needed for pain. - ORAL Earliest Fill Date: 06/21/2023 Analgesic Opioid Oxycodone and Non-Salicylate Combinations Start End oxyCODONE-acetaminophen (PERCOCET) 5-325 mg tablet 06/21/2023 Sig - Route: Take 1 tablet by mouth every 6 hours as needed for pain. - ORAL Earliest Fill Date: 06/21/2023 [facility] Modifiable Risk Factors (MoRF) Obesity Unknown Risk High: BMI > 40 Moderate: BMI 30-40 Normal: BMI < 30 Diabetes Moderate Risk High: A1C > 8 Moderate: A1C 7-8 Normal: A1C < 7 Smoking normal High: Current smoker Normal: Non smoker Anemia normal High: Hgb < 11.5 (women) N/A: Hgb >= 11.5 (women) Nutritional Status normal High: Alb<3.4, or prealb<15, or serum transferrin<200, or total lymphocyte count<1500 Normal: normal labs Narcotics Use High Risk High:NarxCare >=300 Moderate: 100-299 Normal: 0-99 Obesity: height and/or weight are out of date (There is no height and/or weight reading in the past 365 days, so the below BMI readings may be inaccurate) BMI Readings from Last 3 Encounters: 05/18/23 : 28.56 kg/m? 05/12/23 : 26.52 kg/m? 02/24/21 : 29.03 kg/m? Diabetes: Well controlled - Marie has been diagnosed with Type 2 Diabetes. Her last Hemoglobin A1C was 5.7 (04/12/2014). NarxCare score NARX Narcotics: 390 (07/02/2023 9:52 AM) ------- REVIEW OF SYSTEMS: CONSTITUTIONAL: No fevers, chills, nightsweats, unintended weight loss HEENT: Denies frequent or severe headaches, nasal congestion/sinus symptoms, problematic allergy problems. EYES: No diplopia or blurry vision. CARDIOVASCULAR: No chest pain, dyspnea, palpitations, orthopnea, PND. PULM: No dyspnea, unexplained cough. GI: No dysphagia/odynophagia, problematic reflux, constipation, diarrhea, changes in stool habits, hematochezia, melena. : No new urinary complaints, including dysuria, gross hematuria or pyuria. NEURO: No new balance problems, peripheral weakness/paresthesias or numbness of concern. MUSC-SKEL: No new joint (more content not included)... [facility] XR ANKLE 3V AP/LAT/OBL RTon 07-02-2023 XR ANKLE 3V AP/LAT/OBL RT * * *Final Report* * * DATE OF EXAM: Jul 02 2023 10:35AM FVX [id number] - XR ANKLE 3V AP/LAT/OBL RT / PROCEDURE REASON: Charcot ankle, right * * * * Physician Interpretation * * * * RIGHT ANKLE RADIOGRAPHS: CLINICAL HISTORY: Charcot ankle, right . TECHNIQUE: Three views of the right ankle were obtained. COMPARISON: 04/22/2023 RESULT: Postsurgical changes of tibial talocalcaneal arthrodesis with resection of the distal fibula. Partially visualized postsurgical changes of hindfoot fusion. Hardware appears intact. Pes planus. IMPRESSION: Postsurgical changes. First Aid Nurse: SUBHASH Transcribe Date/Time: Jul 07 2023 7:59A Dictated by : SREE BUTTS MD This examination was interpreted and the report reviewed and electronically signed by: SREE BUTTS MD on Jul 07 2023 8:02AM EST [id number] [facility] CNOVon 06-07-2023 CNOV Office Visit (ORTHLD ) MARIE SEXTON ([id number]) 1960 F Date Time Provider Department 06/07/23 1:15 PM MACARIO SANTOS During your visit today, we recorded the following information about you: Macario Santos DPM 06/07/2023 1:32 PM Signed Continue Non-weight bearing right leg. Macario Santos DPM 06/07/2023 1:59 PM Signed PODIATRIC MEDICINE AND SURGERY OFFICE NOTE Complaint: Right Charcot surgical referral HPI: This 63 year old female presents to the clinic today status post right TTC fusion. The patient has been doing very well and had a cast change 2 weeks ago due to getting it wet. However beside that she has had no issues. Patient states she has been nonweightbearing to the right lower extremity and continues to be as compliant as possible. Patient denies any constitutional symptoms. Patient denies any calf or thigh pain. 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 numbness and tingling hands Snores Ulcer bilateral feet/ had for 2 years left foot and right foot for about 4 months / uses ointment to feet once a day. / ulcers are draining blood or no yellow or green draininage. Varicose veins Weakness arms and legs PAST SURGICAL HISTORY Procedure Laterality Date LIG/TRNSXJ FLP TUBE ABDL/VAG APPR UNI/BI Tubal ligation PAST SURGICAL HISTORY OF surgery to left foot x 5 PAST SURGICAL HISTORY OF right foot surgery x2 No current facility-administered medications for this visit. ALLERGIES Allergen Reactions Codeine GI Upset Demerol [Meperidine* Other: See Comments patient unsure Morphine Itching FAMILY HISTORY Problem Relation Age of Onset Anesthesia Problems No Family History Social History Tobacco Use Smoking status: Former Packs/day: 1.50 Years: 10.00 Total pack years: 15.00 Types: Cigarettes Quit date: 04/24/2009 Years since quittin.1 Substance Use Topics Alcohol use: Yes Comment: occasional Drug use: No --------- Current Opioids Analgesic Opioid Oxycodone Combinations Start End oxyCODONE-acetaminophen (PERCOCET) 5-325 mg tablet 06/03/2023 Sig - Route: Take 1 tablet by mouth every 6 hours as needed for pain. - ORAL Earliest Fill Date: 06/03/2023 Analgesic Opioid Oxycodone and Non-Salicylate Combinations Start End oxyCODONE-acetaminophen (PERCOCET) 5-325 mg tablet 06/03/2023 Sig - Route: Take 1 tablet by mouth every 6 hours as needed for pain. - ORAL Earliest Fill Date: 06/03/2023 CHAYITO Modifiable Risk Factors (MoRF) Obesity Unknown Risk High: BMI > 40 Moderate: BMI 30-40 Normal: BMI < 30 Diabetes Moderate Risk High: A1C > 8 Moderate: A1C 7-8 Normal: A1C < 7 Smoking normal High: Current smoker Normal: Non smoker Anemia normal High: Hgb < 11.5 (women) N/A: Hgb >= 11.5 (women) Nutritional Status normal High: Alb<3.4, or prealb<15, or serum transferrin<200, or total lymphocyte count<1500 Normal: normal labs Narcotics Use High Risk High:NarxCare >=300 Moderate: 100-299 Normal: 0-99 Obesity: height and/or weight are out of date (There is no height and/or weight reading in the past 365 days, so the below BMI readings may be inaccurate) BMI Readings from Last 3 Encounters: 05/18/23 : 28.56 kg/m? 05/12/23 : 26.52 kg/m? 02/24/21 : 29.03 kg/m? Diabetes: Well controlled - Marie has been diagnosed with Type 2 Diabetes. Her last Hemoglobin A1C was 5.7 (04/12/2014). NarxCare score NARX Narcotics: 401 (06/07/2023 11:38 AM) ------- REVIEW OF SYSTEMS: CONSTITUTIONAL: No fevers, chills, nightsweats, unintended weight loss HEENT: Denies frequent or severe headaches, nasal congestion/sinus symptoms, problematic allergy problems. EYES: No diplopia or blurry vision. CARDIOVASCULAR: No chest pain, dyspnea, palpitations, orthopnea, PND. PULM: No dyspnea, unexplained cough. GI: No dysphagia/odynophagia, problematic reflux, constipation, diarrhea, changes in stool habits, hematoche (more content not included)... [facility] MARIE [facility]EXT[facility] ([id number]) 1960 F Date Time Provider Department 06/07/23 11:30 AM [facility] During your visit today, we recorded the following information about you: Mahendra Prajapati MA 06/07/2023 2:52 PM Signed Marie presents today for splint removal. Marie's splint was removed and skin cleansed. Marie tolerated this procedure well. Directed Marie and daughter to xray prior to appt w/ Dr. Santos. Mahendra Prajapati MA Splint was removed by Lorraine Yancey RN Referring Provider: MACARIO SANTOS [[id number]] Allergies As of Date: 06/07/2023 Noted Allergy Reaction CODEINE 05/01/2008 8 - GI Upset DEMEROL (MEPERIDINE (PF)) 05/01/2008 14 - Other: See Comments Comments: patient unsure MORPHINE 06/11/2011 9 - Itching Date Reviewed: 06/07/2023 Reviewed by: Mahendra Prajapati MA - Fully Assessed Primary Visit Diagnosis:Charcot ankle, right [M14.671] Prescriptions as of 06/07/2023 - oxyCODONE-acetaminophen (PERCOCET) 5-325 mg tablet Take 1 tablet by mouth every 6 hours as needed for pain. - aspirin, enteric coated (ADULT LOW DOSE ASPIRIN) 81 mg EC tablet Take 1 tablet by mouth once daily. - cyclobenzaprine (FLEXERIL) 10 mg tablet Take 0.5 tablets by mouth three times daily. - insulin lispro protamin/lispro (HUMALOG MIX 75-25,U-100,INSULN SUBCUTANEOUS) Inject 20 Units subcutaneously three times daily with meals. - FLUoxetine (PROZAC) 10 mg capsule Take 10 mg by mouth once daily. - omega-3 acid ethyl esters (LOVAZA) 1 gram capsule Take 1 g by mouth twice daily. - vit B complex no.12/niacin,B3, (VITAMIN B COMPLEX NO.12-NIACIN ORAL) Take 2,500 mg by mouth. - Biotin 10,000 mcg cap Take by mouth. - Cholecalciferol, Vitamin D3, 25 mcg (1,000 unit) cap Take 1,000 Units by mouth once daily. - TURMERIC ORAL Take 500 mg by mouth. - zolpidem (AMBIEN) 5 mg tablet Take 1 tablet by mouth at bedtime as needed (for insomnia.). - CINNAMON BARK-CHROMIUM PICOLIN ORAL Take 2,000 mg by mouth twice daily. - LANTUS 100 unit/mL injection 55 Units daily at bedtime. - LEVOTHYROXINE 100 mcg tablet 100 mcg daily before breakfast. - INSULIN SYRINGE-NEEDLE U-100 1 mL 29 x 1/2 syrg - ZOLPIDEM 10 mg tab Take 10 mg by mouth daily at bedtime. - metFORMIN 1,000 mg ORAL tablet Take 1,000 mg by mouth twice daily with meals. - hydrochlorothiazide 25 mg ORAL tablet Take 25 mg by mouth once daily. - gabapentin (NEURONTIN) 800 mg tablet Take 800 mg by mouth. 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] 05/06/2021 PTTD (posterior tibial tendon dysfunction) [M76*05/06/2021 Diabetes mellitus type 2 with neurological shon*05/06/2021 Gastrocnemius equinus of right lower extremity *05/06/2021 Difficulty walking [R26.2] 05/06/2021 05/17/2023 Former smoker [Z87.891] 05/07/2023 Asthma [J45.909] 05/12/2023 Charcot ankle, right [M14.671] 05/17/2023 Acquired hypothyroidism [E03.9] 05/17/2023 Anxiety [F41.9] 05/17/2023 Other insomnia [G47.09] 05/17/2023 Encounter Status:Closed by MAHENDRA PRAJAPATI on 06/07/23 [facility] XR ANKLE 3V AP/LAT/OBL RTon 06-07-2023 XR ANKLE 3V AP/LAT/OBL RT * * *Final Report* * * DATE OF EXAM: Jun 07 2023 12:06PM LFX [id number] - XR ANKLE 3V AP/LAT/OBL RT / PROCEDURE REASON: Charcot ankle, right * * * * Physician Interpretation * * * * Right ankle HISTORY: 63 years old Clinical information: Charcot ankle, right charcot ankle, right post op TECHNIQUE: Images: XR ANKLE 3V AP/LAT/OBL RT Comparison: None. RESULT: Findings: Interval tibiotalar and subtalar arthrodesis with metallic jennifer along the length of the imaged portions of the mid and distal tibia across the talus into the calcaneus. There are proximal and distal fixation screws. Resection distal fibula. Hardware from previous midfoot and hindfoot surgery is unchanged. There is partial healing of calcaneal osteotomy. There is pes planus. Stable sclerosis distal fibular diaphysis. Scattered heterotopic ossification posterior lateral to the tibiotalar joint and along the plantar aspect of calcaneus. IMPRESSION: Postoperative findings as given the results. First Aid Nurse: SUBHASH Transcribe Date/Time: Jun 10 2023 11:03A Dictated by : FANG HOLLOWAY MD This examination was interpreted and the report reviewed and electronically signed by: FANG HOLLOWAY MD on Jun 10 2023 11:06AM EST [id number] Normal [facility] CNOVon 05-27-2023 CNOV Office Visit (ORFWHP ) MARIE SEXTON ([id number]) 1960 F Date Time Provider Department 05/27/23 1:30 PM [facility] During your visit today, we recorded the following information about you: Regi Cherry Ma 05/27/2023 2:49 PM Signed Patient presents to clinic for splint change. Patient had surgery 05/17/2023. Initial post op splint removed. Incisions dressed in xeroform and wrapped in kerlix. Patient placed in a posterior ortho glass splint, applied to the lower right extremity. Patient neurovascularly intact and tolerated application. Patient instructed on cast care and to follow up as scheduled. Patient expressed thanks and understanding. Regi Cherry Ma Allergies As of Date: 05/27/2023 Noted Allergy Reaction CODEINE 05/01/2008 8 - GI Upset DEMEROL (MEPERIDINE (PF)) 05/01/2008 14 - Other: See Comments Comments: patient unsure MORPHINE 06/11/2011 9 - Itching Date Reviewed: 05/18/2023 Reviewed by: Barbara Gil RN - Fully Assessed Reason for Visit: Post Op [174] Cmt: Sx: 05/17/2023 Primary Visit Diagnosis:Charcot ankle, right [M14.671] Prescriptions as of 05/27/2023 - oxyCODONE-acetaminophen (PERCOCET) 5-325 mg tablet Take 1 tablet by mouth four times daily as needed for pain. - aspirin, enteric coated (ADULT LOW DOSE ASPIRIN) 81 mg EC tablet Take 1 tablet by mouth once daily. - cyclobenzaprine (FLEXERIL) 10 mg tablet Take 0.5 tablets by mouth three times daily. - insulin lispro protamin/lispro (HUMALOG MIX 75-25,U-100,INSULN SUBCUTANEOUS) Inject 20 Units subcutaneously three times daily with meals. - oxyCODONE-acetaminophen (PERCOCET) 5-325 mg tablet Take 1 tablet by mouth every 6 hours as needed for pain. - FLUoxetine (PROZAC) 10 mg capsule Take 10 mg by mouth once daily. - omega-3 acid ethyl esters (LOVAZA) 1 gram capsule Take 1 g by mouth twice daily. - vit B complex no.12/niacin,B3, (VITAMIN B COMPLEX NO.12-NIACIN ORAL) Take 2,500 mg by mouth. - Biotin 10,000 mcg cap Take by mouth. - Cholecalciferol, Vitamin D3, 25 mcg (1,000 unit) cap Take 1,000 Units by mouth once daily. - TURMERIC ORAL Take 500 mg by mouth. - zolpidem (AMBIEN) 5 mg tablet Take 1 tablet by mouth at bedtime as needed (for insomnia.). - CINNAMON BARK-CHROMIUM PICOLIN ORAL Take 2,000 mg by mouth twice daily. - LANTUS 100 unit/mL injection 55 Units daily at bedtime. - LEVOTHYROXINE 100 mcg tablet 100 mcg daily before breakfast. - INSULIN SYRINGE-NEEDLE U-100 1 mL 29 x 1/2 syrg - ZOLPIDEM 10 mg tab Take 10 mg by mouth daily at bedtime. - metFORMIN 1,000 mg ORAL tablet Take 1,000 mg by mouth twice daily with meals. - hydrochlorothiazide 25 mg ORAL tablet Take 25 mg by mouth once daily. - gabapentin (NEURONTIN) 800 mg tablet Take 800 mg by mouth. 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*05/06/2021 Gastrocnemius equinus of right lower extremity *05/06/2021 Difficulty walking [R26.2] 05/06/2021 05/17/2023 Former smoker [Z87.891] 05/07/2023 Asthma [J45.909] 05/12/2023 Charcot ankle, right [M14.671] 05/17/2023 Acquired hypothyroidism [E03.9] 05/17/2023 Anxiety [F41.9] 05/17/2023 Other insomnia [G47.09] 05/17/2023 Encounter Status:Closed by REGI CHERRY MA on 05/27/23 [facility] 05-24-2023 CNPN Telephone (FVFOPR) MARIE SEXTON ([id number]) 1960 F Date Time Provider Department 05/24/23 BRIGETTE STALLWORTH During your visit today, we recorded the following information about you: Brigette Stallworth RN 05/24/2023 12:56 PM Signed Patient called regarding home going CADD pumps and PNC. Per patient both catheters have successfully been removed and her daughter is mailing them back to the company. All questions answered. Mara Stallworth RN Acute Pain Management Service [facility] Allergies As of Date: 05/24/2023 Noted Allergy Reaction CODEINE 05/01/2008 8 - GI Upset DEMEROL (MEPERIDINE (PF)) 05/01/2008 14 - Other: See Comments Comments: patient unsure MORPHINE 06/11/2011 9 - Itching Date Reviewed: 05/18/2023 Reviewed by: Barbara Gil RN - Fully Assessed Reason for Visit: Follow Up [171] Prescriptions as of 05/24/2023 - aspirin, enteric coated (ADULT LOW DOSE ASPIRIN) 81 mg EC tablet Take 1 tablet by mouth once daily. - cyclobenzaprine (FLEXERIL) 10 mg tablet Take 0.5 tablets by mouth three times daily. - oxyCODONE-acetaminophen (PERCOCET) 5-325 mg tablet Take 1 tablet by mouth four times daily as needed for pain. - insulin lispro protamin/lispro (HUMALOG MIX 75-25,U-100,INSULN SUBCUTANEOUS) Inject 20 Units subcutaneously three times daily with meals. - oxyCODONE-acetaminophen (PERCOCET) 5-325 mg tablet Take 1 tablet by mouth every 6 hours as needed for pain. - FLUoxetine (PROZAC) 10 mg capsule Take 10 mg by mouth once daily. - omega-3 acid ethyl esters (LOVAZA) 1 gram capsule Take 1 g by mouth twice daily. - vit B complex no.12/niacin,B3, (VITAMIN B COMPLEX NO.12-NIACIN ORAL) Take 2,500 mg by mouth. - Biotin 10,000 mcg cap Take by mouth. - Cholecalciferol, Vitamin D3, 25 mcg (1,000 unit) cap Take 1,000 Units by mouth once daily. - TURMERIC ORAL Take 500 mg by mouth. - zolpidem (AMBIEN) 5 mg tablet Take 1 tablet by mouth at bedtime as needed (for insomnia.). - CINNAMON BARK-CHROMIUM PICOLIN ORAL Take 2,000 mg by mouth twice daily. - LANTUS 100 unit/mL injection 55 Units daily at bedtime. - LEVOTHYROXINE 100 mcg tablet 100 mcg daily before breakfast. - INSULIN SYRINGE-NEEDLE U-100 1 mL 29 x 1/2 syrg - ZOLPIDEM 10 mg tab Take 10 mg by mouth daily at bedtime. - metFORMIN 1,000 mg ORAL tablet Take 1,000 mg by mouth twice daily with meals. - hydrochlorothiazide 25 mg ORAL tablet Take 25 mg by mouth once daily. - gabapentin (NEURONTIN) 800 mg tablet Take 800 mg by mouth. 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*05/06/2021 Gastrocnemius equinus of right lower extremity *05/06/2021 Difficulty walking [R26.2] 05/06/2021 05/17/2023 Former smoker [Z87.891] 05/07/2023 Asthma [J45.909] 05/12/2023 Charcot ankle, right [M14.671] 05/17/2023 Acquired hypothyroidism [E03.9] 05/17/2023 Anxiety [F41.9] 05/17/2023 Other insomnia [G47.09] 05/17/2023 Encounter Status:Closed by BRIGETTE STALLWORTH on 05/24/23 [facility] 05-23-2023 JOSE ALBERTO Telephone (FVPRAD) MARIE SEXTON ([id number]) 1960 F Date Time Provider Department 05/23/23 KAYLYN LONDON During your visit today, we recorded the following information about you: Kaylyn London APRN.[facility] 05/23/2023 9:41 AM Signed Attempted to call pt to check on status of CADD pump. No answer, left detailed VM. Kaylyn London APRN.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 Allergies As of Date: 05/23/2023 Noted Allergy Reaction CODEINE 05/01/2008 8 - GI Upset DEMEROL (MEPERIDINE (PF)) 05/01/2008 14 - Other: See Comments Comments: patient unsure MORPHINE 06/11/2011 9 - Itching Date Reviewed: 05/18/2023 Reviewed by: Barbara Gil RN - Fully Assessed Reason for Visit: Follow Up [171] Prescriptions as of 05/23/2023 - aspirin, enteric coated (ADULT LOW DOSE ASPIRIN) 81 mg EC tablet Take 1 tablet by mouth once daily. - cyclobenzaprine (FLEXERIL) 10 mg tablet Take 0.5 tablets by mouth three times daily. - oxyCODONE-acetaminophen (PERCOCET) 5-325 mg tablet Take 1 tablet by mouth four times daily as needed for pain. - insulin lispro protamin/lispro (HUMALOG MIX 75-25,U-100,INSULN SUBCUTANEOUS) Inject 20 Units subcutaneously three times daily with meals. - oxyCODONE-acetaminophen (PERCOCET) 5-325 mg tablet Take 1 tablet by mouth every 6 hours as needed for pain. - FLUoxetine (PROZAC) 10 mg capsule Take 10 mg by mouth once daily. - omega-3 acid ethyl esters (LOVAZA) 1 gram capsule Take 1 g by mouth twice daily. - vit B complex no.12/niacin,B3, (VITAMIN B COMPLEX NO.12-NIACIN ORAL) Take 2,500 mg by mouth. - Biotin 10,000 mcg cap Take by mouth. - Cholecalciferol, Vitamin D3, 25 mcg (1,000 unit) cap Take 1,000 Units by mouth once daily. - TURMERIC ORAL Take 500 mg by mouth. - zolpidem (AMBIEN) 5 mg tablet Take 1 tablet by mouth at bedtime as needed (for insomnia.). - CINNAMON BARK-CHROMIUM PICOLIN ORAL Take 2,000 mg by mouth twice daily. - LANTUS 100 unit/mL injection 55 Units daily at bedtime. - LEVOTHYROXINE 100 mcg tablet 100 mcg daily before breakfast. - INSULIN SYRINGE-NEEDLE U-100 1 mL 29 x 1/2 syrg - ZOLPIDEM 10 mg tab Take 10 mg by mouth daily at bedtime. - metFORMIN 1,000 mg ORAL tablet Take 1,000 mg by mouth twice daily with meals. - hydrochlorothiazide 25 mg ORAL tablet Take 25 mg by mouth once daily. - gabapentin (NEURONTIN) 800 mg tablet Take 800 mg by mouth. 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*05/06/2021 Gastrocnemius equinus of right lower extremity *05/06/2021 Difficulty walking [R26.2] 05/06/2021 05/17/2023 Former smoker [Z87.891] 05/07/2023 Asthma [J45.909] 05/12/2023 Charcot ankle, right [M14.671] 05/17/2023 Acquired hypothyroidism [E03.9] 05/17/2023 Anxiety [F41.9] 05/17/2023 Other insomnia [G47.09] 05/17/2023 Encounter Status:Closed by KAYLYN LONDON on 05/23/23 [facility] ([id number]) 1960 F Date Time Provider Department 05/19/23 BRIGETTE STALLWORTH FVFOPR During your visit today, we recorded the following information about you: Brigette Stallworth RN 05/19/2023 3:16 PM Signed Pt is POD# 2. S/P Right Leg removal of deep hardware Right Ankle fusion Right subtalar joint fusion Fibular osteotomy right ankle [place] of bone marrow autograft right leg with PNC infusing Ropivacaine 0.2% at 6/4/30/2 ml/hr Called and talked to patient, states pain level is : 2 Patient states the catheter dressing is intact, denies :redness, fever, draining, edema, pain Denies c/o metallic taste in mouth, ringing in ears, dizziness, etc. Patient is able to move Comments: Patient called after multiple missed calls from home going PNC CADD pump company. Patient states pain is tolerable. Patient educated on using the dose (bolus) button. All questions answered. Mara Stallworth RN Acute Pain Management Service [facility] Allergies As of Date: 05/19/2023 Noted Allergy Reaction CODEINE 05/01/2008 8 - GI Upset DEMEROL (MEPERIDINE (PF)) 05/01/2008 14 - Other: See Comments Comments: patient unsure MORPHINE 06/11/2011 9 - Itching Date Reviewed: 05/18/2023 Reviewed by: Barbara Gil RN - Fully Assessed Reason for Visit: Follow Up [171] Prescriptions as of 05/19/2023 - aspirin, enteric coated (ADULT LOW DOSE ASPIRIN) 81 mg EC tablet Take 1 tablet by mouth once daily. - cyclobenzaprine (FLEXERIL) 10 mg tablet Take 0.5 tablets by mouth three times daily. - oxyCODONE-acetaminophen (PERCOCET) 5-325 mg tablet Take 1 tablet by mouth four times daily as needed for pain. - insulin lispro protamin/lispro (HUMALOG MIX 75-25,U-100,INSULN SUBCUTANEOUS) Inject 20 Units subcutaneously three times daily with meals. - oxyCODONE-acetaminophen (PERCOCET) 5-325 mg tablet Take 1 tablet by mouth every 6 hours as needed for pain. - FLUoxetine (PROZAC) 10 mg capsule Take 10 mg by mouth once daily. - omega-3 acid ethyl esters (LOVAZA) 1 gram capsule Take 1 g by mouth twice daily. - vit B complex no.12/niacin,B3, (VITAMIN B COMPLEX NO.12-NIACIN ORAL) Take 2,500 mg by mouth. - Biotin 10,000 mcg cap Take by mouth. - Cholecalciferol, Vitamin D3, 25 mcg (1,000 unit) cap Take 1,000 Units by mouth once daily. - TURMERIC ORAL Take 500 mg by mouth. - zolpidem (AMBIEN) 5 mg tablet Take 1 tablet by mouth at bedtime as needed (for insomnia.). - CINNAMON BARK-CHROMIUM PICOLIN ORAL Take 2,000 mg by mouth twice daily. - LANTUS 100 unit/mL injection 55 Units daily at bedtime. - LEVOTHYROXINE 100 mcg tablet 100 mcg daily before breakfast. - INSULIN SYRINGE-NEEDLE U-100 1 mL 29 x 1/2 syrg - ZOLPIDEM 10 mg tab Take 10 mg by mouth daily at bedtime. - metFORMIN 1,000 mg ORAL tablet Take 1,000 mg by mouth twice daily with meals. - hydrochlorothiazide 25 mg ORAL tablet Take 25 mg by mouth once daily. - gabapentin (NEURONTIN) 800 mg tablet Take 800 mg by mouth. 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*05/06/2021 Gastrocnemius equinus of right lower extremity *05/06/2021 Difficulty walking [R26.2] 05/06/2021 05/17/2023 Former smoker [Z87.891] 05/07/2023 Asthma [J45.909] 05/12/2023 Charcot ankle, right [M14.671] 05/17/2023 Acquired hypothyroidism [E03.9] 05/17/2023 Anxiety [F41.9] 05/17/2023 Other insomnia [G47.09] 05/17/2023 Encounter Status:Closed by BRIGETTE STALLWORTH on 05/19/23 [facility] CONSULT PROGon 05-18-2023 CONSULT PROG HNO ID: [id number] Author: Donell Khoury PA-C Service: Pain Management Author Type: Physician Career Technical Education Teacher Type: Consult Progress Note Filed: 05/18/2023 8:35 AM Note Text: PERIPHERAL NERVE CATHETER PROGRESS NOTE PATIENT NAME: Marie Sexton SERVICE DATE: 05/18/2023 SERVICE TIME: 7:28 AM ASSESSMENT Marie Sexton is a 63 year old female who is POD# 1 Right Leg removal of deep hardware Right Ankle fusion Right subtalar joint fusion Fibular osteotomy right ankle [place] of bone marrow autograft right leg Patient reports good pain control 6/[address]. Adductor canal and Popliteal PNC running per CADD 0.2% @ 04/18/30. Dilaudid PRN and Roxicodone on board minimal usage with PNC in place. PLAN Continue current pain regimen, will follow. Patient with CADD pumps in place patient may go home with PNC in place and [employer] will call patient daily. SUBJECTIVE CHIEF COMPLAINT: Marie Sexton is a 63 year old female who is POD# 1 Right Leg removal of deep hardware Right Ankle fusion Right subtalar joint fusion Fibular osteotomy right ankle [place] of bone marrow autograft right leg PRIMARY SERVICE: Podiatry Pain level is 0 at rest 6 with ambulation on a scale of 0-10. Is the patient tolerating Physical Therapy?: not yet Pain at surgical site? Min to mod Character: ache Duration: intermittent Radiation: No Relieved: Yes Is patient satisfied with pain control: Yes Overnight Events: None Overnight Pain Interventions: no Allergy: ALLERGIES Allergen Reactions Codeine GI Upset Demerol [Meperidine* Other: See Comments patient unsure Morphine Itching MEDICATIONS: I have interrogated the PNC pump for the correct settings and solution: Yes. Adductor canal and Popliteal PNC running per CADD 0.2% @ 04/18/30 Current Facility-Administered Medications Medication Dose Route Frequency ropivacaine 0.2% in 750 mL reservoir 750 mL PERIPHERAL NERVE CATHETER CONTINUOUS ropivacaine 0.2% in 750 mL reservoir 750 mL PERIPHERAL NERVE CATHETER CONTINUOUS metFORMIN 1,000 mg tab(s) (GLUCOPHAGE) 1,000 mg ORAL BID w MEALS hydroCHLOROthiazide 25 mg tab(s) 25 mg ORAL DAILY gabapentin 800 mg tab(s) (NEURONTIN) 800 mg ORAL DAILY levothyroxine 100 mcg tab(s) (SYNTHROID) 100 mcg ORAL DAILY (6 AM) insulin glargine 55 Units pen (long acting) 55 Units SUBCUTANEOUS AT BEDTIME zolpidem 5 mg tab(s) (AMBIEN) 5 mg ORAL AT BEDTIME PRN cholecalciferol 1,000 Units tab(s) (VITAMIN D3) 1,000 Units ORAL DAILY FLUoxetine 10 mg cap(s) (PROzac) 10 mg ORAL DAILY oxyCODONE IR 5-10 mg tab(s) (ROXICODONE) 5-10 mg ORAL q 3 H PRN HYDROmorphone 0.5 mg injection (DILAUDID) 0.5 mg INTRAVENOUS q 2 H PRN ondansetron 4 mg tab(s) (ZOFRAN) 4 mg ORAL q 6 H PRN Or ondansetron (PF) 4 mg injection (ZOFRAN) 4 mg INTRAVENOUS q 6 H PRN metoclopramide HCl 10 mg injection (REGLAN) 10 mg INTRAVENOUS q 6 H PRN dextrose 40 % 15 g 15 g ORAL PRN Or glucagon 1 mg injection 1 mg INTRAMUSCULAR PRN Or dextrose 10% iv bolus 12.5 g INTRAVENOUS PRN gabapentin 800 mg tab(s) (NEURONTIN) 800 mg ORAL DAILY (1 PM) gabapentin 1,600 mg tab(s) (NEURONTIN) 1,600 mg ORAL AT BEDTIME insulin 70/30 NPH-regular units/mL 20 Units injection (mixed intermediate and short acting) 20 Units SUBCUTANEOUS TID w MEALS icosapent ethyl 2 g cap(s) (VASCEPA) 2 g ORAL BID w MEALS OBJECTIVE: PHYSICAL EXAM: No data found. Affect: awake General Impression: appears comfortable Catheter site is clean, non-tender, and dressing intact. Sensory exam: Surgical limb: Right Lower Extremity: diminished at distribution of nerve block Other limb: intact Motor Exam: Surgical limb: Right Lower Extremity: diminished at distribution of nerve block Other limb: intact Respiratory Exam: Respirations: Breathing appears normal Thoracostomy tube?: No Gastrointestinal Exam: Abdomen: Yes NG?: No DATA: Lab Results Hemoglobin 13.7 04/12/2014 Hematocrit 39.6 04/12/2014 Platelet Count 215 04/12/2014 I spent a total of 20 minutes on the date of the service which included preparing to see the patient, [id number] patient care, completing clinical documentation, obtaining and/or reviewing separately obtained history, performing a medically appropriate examination, counseling and educating the patient/family/caregive r, and communicating results to the patient/family/caregive r. SIGNATURE: Donell Khoury PA-C PATIENT NAME: Marie Sexton DATE: May 18, 2023 TIME: 7:28 AM PAGER/CONTACT #: [facility] [phone] [facility] HISTORY PHYSICALon HISTORY PHYSICAL HNO ID: [id number] Author: Alannah Whiteside MD Service: Hospital Medicine Author Type: Physician Type: HANDP Filed: 05/17/2023 10:51 PM Note Text: Hospital Medicine Consult History and Physical PRIMARY SERVICE: HOSPITAL MEDICINE Days: Page hospital medicine team pager Evenings: [facility] hospital medicine pager [phone] PATIENT NAME: Marie Sexton DATE of SERVICE: May 17, 2023 TIME of SERVICE: 10:22 PM PCP: Collins Andrews CODE STATUS: Full code by default ASSESSMENT/PLAN SUMMARY: Marie Sexton is a 63 year old female with PMH asthma, HTN, T2DM, arthritis, neuropathy, right charcot ankle, tendon dysfunctions (peroneal, posterior tibial) who was admitted to the hospital for podiatric surgery. Medicine consulted for management of chronic conditions Hospital Problems: 1-s/p right ankle fusion 2-s/p right subtalar joint fusion 3-s/p right leg removal of deep hardware 4-s/p fibular osteotomy of right ankle 5-s/p harvest of bone marrow autograft right leg -pain and post op management per primary team -patient notes she is feeling well currently, pain is well controlled and she understands plan of care 5-T2DM 6-Neuropathy Controlled, a1c of 6.4 on 02/02/23 () -Continue AC + QHS glucose monitoring -Continue home metformin, humalog substitute 20u with meals. Continue 55u lantus at bedtime -Hypoglycemia protocol -Continue neurontin 7-HTN -continue HCTZ (she states more for swelling than BP) -BP overall stable 8-Asthma(mild, intermittent) -respiratory status stable 9-Hypothyroidism -continue synthroid 10-anxiety 11-insomnia -Continue prozac -Continue home ambien DISPO: pending LINES: pIV DIET: Carb Controlled BOWERS: Not Indicated DVT PROPHYLAXIS: post op TELEMETRY: Continuous SUBJECTIVE CHIEF COMPLAINT: consult for chronic disease management HPI: Marie Sexton is a 63 year old female with PMH asthma, HTN, T2DM, arthritis, neuropathy, right charcot ankle, tendon dysfunctions (peroneal, posterior tibial) who was admitted to the hospital for podiatric surgery. Medicine consulted for management of chronic conditions, pt is expected to be d/c'd tomorrow per primary team. 05/17 surgery included: Right Leg removal of deep hardware Right Ankle fusion Right subtalar joint fusion Fibular osteotomy right ankle [place]field of bone marrow autograft right leg SOCIAL HISTORY: - Smoking: former - 15 pack year smoking history - Alcohol: Occasional, social use - Drugs: No use - Home: lives alone COMPLETE REVIEW OF SYSTEMS: All other ROS reviewed and negative aside from that mentioned in HPI. OBJECTIVE 05/17/23 1600 05/17/23 1700 05/17/23 1758 05/17/23 1920 BP: 140/65 138/68 157/63 (!) 139/49 Pulse: 80 81 84 94 Resp: 12 12 7 Temp: 37.4 ?C (99.3 ?F) 37.2 ?C (99 ?F) 36.8 ?C (98.2 ?F) TempSrc: Temporal Oral SpO2: 98% 97% 100% 96% PHYSICAL EXAM: General appearance: Alert. Cooperative. In no distress. pleasant. Skin: Warm and dry. Post op dressings c/d/i. Head: Normocephalic. Atraumatic. Eyes: EOMI. Sclera anicteric. Ears: External ears normal. Nose: Mucosa without erythema or lesions. Oropharynx: Moist. No oral/pharyngeal lesions or exudate. Neck: Supple. Heart: Regular rate and rhythm. Lungs: normal effort and breathing comfortably on room air. Neuro: Awake, alert, and oriented x3. No involuntary motions. DATA: Previous Labs: Reviewed Previous Imaging: Reviewed SIGNATURE: Alannah Whiteside MD PATIENT NAME: Marie Sexton DATE: May 17, 2023 TIME: 10:50 PM Discussed with: Patient Normal [facility] ANES POSTPROC EVALon 023 ANES POSTPROC EVAL HNO ID: [id number] Author: Amelia Camara MD Service: Critical Care Author Type: Anesthesiologist Type: Anesthesia Postprocedure Evaluation Filed: 05/17/2023 3:32 PM Note Text: POST ANESTHESIA EVALUATION NOTE : 1960 Procedure Summary Date: 05/17/23 Room / Location: OR / [facility] OR Anesthesia Start: 0756 Anesthesia Stop: 1142 Procedures: ARTHRODESIS ANKLE (Right: Ankle) ARTHRODESIS SUBTALAR (Right: Ankle) REMOVAL HARDWARE ANKLE (Right: Ankle) DIAGNOSTIC BONE MARROW ASPIRATION(S) (Right: Ankle) Diagnosis: Osteonecrosis (HCC) Charcot ankle, right Retained orthopedic hardware Deformity of ankle joint, right (Osteonecrosis (HCC) [M87.9]) (Charcot ankle, right [M14.671]) (Retained orthopedic hardware [Z96.9]) (Deformity of ankle joint, right [M21.961]) Surgeons: Macario Santos DPM Responsible Provider: Amelia Camara MD Anesthesia Type: general ASA Status: 3 Anesthesia Type: general Airway Type: LMA Last Vitals Vitals Value Taken Time BP 142/67 05/17/23 1500 Temp 36.2 ?C (97.2 ?F) 05/17/23 1230 Pulse 81 05/17/23 1531 Resp 15 05/17/23 1531 SpO2 98 % 05/17/23 1522 Vitals shown include unvalidated device data. Post Anesthesia Patient Status Patient Evaluation: PACU. PACU/ICU Patient Condition: stable. Anticipated Disposition: inpatient floor planned admission. Neurological Status: aware and responsive. Pulmonary Status: breathing comfortably on room air Airway Control: returned to baseline unsupported. Cardiovascular Status: stable. Pain Management: clinically adequate Postoperative Hydration: acceptable. Intraoperative Events: no significant anesthesia events Post Operative Nausea/Vomiting Status: no significant post operative nausea or vomiting Recommendation: continue current plan of care. Anesthesia Observations No Documentation SIGNATURE: Amelia Camara MD PATIENT NAME: Marie Sexton DATE: May 17, 2023 TIME: 3:32 PM CSN: [id number] [facility] ANES PRE-OPon 05-17-2023 ANES PRE-OP HNO ID: [id number] Author: SÁNCHEZ Junior Service: Critical Care Author Type: Clinical Trial Educator Type: Anesthesia Preprocedure Evaluation Filed: 05/17/2023 8:12 AM Note Text: Attestation signed by Amelia Camara MD at 05/17/2023 8:25 AM I attest the above information is accurate including: Chronic Beta Vita medication administered within 24 hours: N/A Adequate NPO status: Yes Anesthetic risks, benefits, alternatives, personnel and consent discussed. Yes Patient agrees to proceed. Yes Pain Management Plan: Parenteral or Oral and Peripheral Nerve Block ASA Class: 3 Anesthetic Plan: General; Standard ASA Monitors Additional comments: Nerve block for postop pain Amelia Camara MD May 17, 2023 ANESTHESIOLOGY DAY OF SURGERY NOTE : 1960 Procedure Information Anesthesia Start Date/Time: 05/17/23 0756 Procedures: ARTHRODESIS ANKLE (Right: Ankle) - POPLITEAL BLOCK Isto Bone graft; Fayette TTC Nail and headless 6.5 and 5.5 screws; Floyd Large screw removal (5.0, 6.5) Isto confirmed by José Miguel Bridges - kf 05/11 Fayette confirmed with Og Trevino - kf 05/11 Synthes specialty screw removal set ARTHRODESIS SUBTALAR (Right: Ankle) REMOVAL HARDWARE ANKLE (Right: Ankle) DIAGNOSTIC BONE MARROW ASPIRATION(S) (Right: Ankle) REPAIR DISLOCATING PERONEAL TENDONS/FIBULAR OSTEOTOMY (Right: Ankle) Location: [facility] OR08 / [facility] OR Surgeons: Macario Santos DPM Estimated body mass index is 26.52 kg/m? as calculated from the following: Height as of 05/12/23: 185.4 cm (6' 1 ). Weight as of 05/12/23: 91.2 kg (201 lb). Most recent hematocrit and potassium results: Hematocrit 39.6 04/12/2014 Potassium 3.3 04/12/2014 Relevant Problems CARDIO (+) HTN (hypertension) PULMONARY (+) Asthma Other (+) Arthritis (+) Arthritis of right subtalar joint I - PHYSICAL EVALUATION AIRWAY Patient intubated: No. Tracheostomy tube not present Mallampati: III. TM distance: >3 FB. Neck ROM: full ROM without neurological symptoms. Mouth opening: adequate. Short neck: no. Thick neck: no Velez present: no DENTAL Dentures, upper: complete. Additional exam findings: yes. CARDIOVASCULAR Normal cardiovascular observations. PULMONARY Normal pulmonary observations. ABDOMINAL Normal abdominal observations. BACK Normal back observations. II - ANESTHESIA PLAN ASA Score: 3 Anesthetic Plan: general Airway type: LMA The patient is not a current smoker. NPO Status: adequate Beta Vita Monitoring Plan Monitoring plan: standard ASA. Post Procedure Analgesic Plan Postoperative analgesic plan: parenteral or oral opioids, multimodal analgesia and peripheral nerve block. Informed Consent Anesthetic risks, benefits, alternatives, personnel and consent discussed: yes. Patient / Responsible Constitution Party agrees to proceed: yes Patient / Surrogate agrees to blood products: Yes DNR status not reviewed with patient and/or family prior to surgery. Significant changes in the patient condition since the History and Physical, not otherwise documented in primary service progress note: no. Potential Anesthesia issues that may suggest increased risk of complications or contraindication to planned procedure: none. Vitals Value Taken Time BP 158/69 05/17/23 0745 Pulse 60 05/17/23 0752 Resp 13 05/17/23 0752 Temp 36.3 ?C (97.3 ?F) 05/17/23 0706 SpO2 94 % 05/17/23 0752 Vitals shown include unvalidated device data. Facility-Administered Medications as of 05/17/2023 Medication Dose Route Frequency - [COMPLETED] midazolam (PF) 1-2 mg injection (VERSED) 1-2 mg INTRAVENOUS ONCE Outpatient Medications as of 05/17/2023 Medication Sig - FLUoxetine (PROZAC) 40 mg capsule Take by mouth. - insulin 70-30 aspart protamine-aspart (NOVOLOG MIX 70/30) 100 units/mL injection INJECT 26 UNITS TWICE DAILY SUBCUTANEOUSLY - omega-3 acid ethyl esters (LOVAZA) 1 gram capsule Take by mouth. - vit B complex no.12/niacin,B3, (VITAMIN B COMPLEX NO.12-NIACIN ORAL) Take 2,500 mg by mouth. - Biotin 10,000 mcg cap Take by mouth. - Cholecalciferol, Vitamin D3, 25 mcg (1,000 unit) cap Take 1,000 Units by mouth once daily. - TURMERIC ORAL Take 500 mg by mouth. - turmeric (CURCUMIN MISC) - zolpidem (AMBIEN) 5 mg tablet Take 1 tablet by mouth at bedtime as needed (for insomnia.). - CINNAMON BARK-CHROMIUM PICOLIN ORAL Take 2,000 mg by mouth twice daily. - LANTUS 100 unit/mL injection 70 Units daily at bedtime. Indications: DIABETES MELLITUS - LEVOTHYROXINE 100 mcg tablet - INSULIN SYRINGE-NEEDLE U-100 1 mL 29 x 1/2 syrg - TRAZODONE 50 mg tablet Take 50 mg by mouth daily at bedtime. - ZOLPIDEM 10 mg tab Take 10 mg by mouth daily at bedtime. - INSULIN REGULAR, HUMAN (HUMULIN R INJECTION) 20 Units by INJECTION(UNSPECIFI (more content not included)... Normal [facility] BRIEF OP NOTon 05-17-2023 BRIEF OP NOT HNO ID: [id number] Author: Macario Santos DPM Service: Podiatry Author Type: Physician Type: Brief Op Note Filed: 05/17/2023 10:59 AM Note Text: PODIATRIC SURGERY BRIEF OPERATIVE NOTE LOG ID: [id number] Surgery/Procedure Date: 05/17/2023 Incision/Procedure Start Time: 8:25 AM Incision Close/Procedure End Time: Surgeon(s)/Proceduralis t(s) and Career Technical Education Teacher(s): Surgeon(s) and Role: * Macario Santos DPM - Primary Physician Career Technical Education Teacher: Leslie Teresa PA-C Procedure(s): Right Leg removal of deep hardware Right Ankle fusion Right subtalar joint fusion Fibular osteotomy right ankle [place] of bone marrow autograft right leg Anesthesia: General Findings: Well aligned rearfoot Estimated Blood Loss: 100 mls Specimens: None Complications: NONE Pre-Op/Pre-Procedure Diagnosis: Right foot hardware failure Right ankle instability Right rearfoot arthritis Post-Op/Post-Procedure Diagnosis: SAME SIGNATURE: Macario Santos DPM PATIENT NAME: Marie Sexton DATE: May 17, 2023 TIME: 10:57 AM PAGER/CONTACT #: [phone] (Pager/Cell) [facility] NURSING PROGon 05-17-2023 NURSING PROG HNO ID: [id number] Author: Francesca Young RN Service: Nursing Author Type: Registered Nurse Type: Nursing Progress Note Filed: 05/17/2023 3:34 PM Note Text: This nurse helped patient to restroom. Took bed close to the bathroom and with assistance helped her to the bathroom with a walker (2 person assist). [facility] NURSING PROG HNO ID: [id number] Author: Francesca Young RN Service: Nursing Author Type: Registered Nurse Type: Nursing Progress Note Filed: 05/17/2023 1:30 PM Note Text: Patient now is stating that she needs to stay because she lives alone and she is afraid to go home and doesn't think she will be okay or safe at home. Dr. Santos at bedside talking to patient and he would like the patient to stay overnight. He is putting orders in now. [facility] NURSING PROG HNO ID: [id number] Author: Melodie Lorenzo RN Service: Nursing Author Type: Registered Nurse Type: Nursing Progress Note Filed: 05/17/2023 12:58 PM Note Text: Patient expressing concerns about going home since she lives alone. I spoke with her daughter Jennifer and she stated that between her, her sister Brigette and sister they are available to help her. Jennifer also stated that Marie becomes very emotional after anesthesia and she is certain she will be okay at home. [facility] NURSING PROG HNO ID: [id number] Author: Brigette Stallworth RN Service: Pain Management Author Type: Registered Nurse Type: Nursing Progress Note Filed: 05/17/2023 7:24 AM Note Text: RIGHT popliteal nerve block with catheter RIGHT adductor nerve block with catheter Dr. Smith and Dr. Barbour Patient verbalized understanding of nerve block procedure. [facility] NURSING PROG HNO ID: [id number] Author: Gracie Abraham RN Service: Nursing Author Type: Registered Nurse Type: Nursing Progress Note Filed: 05/17/2023 6:24 AM Note Text: PATIENT EDUCATION TOPIC: PROCEDURE / SURGERY: Pre-op Teaching: Logistics Protocols PATIENT NAME: Marie Sexton PATIENT LOCATION: Room/bed info not found READINESS TO LEARN COGNITIVE ABILITY: Alert and oriented MOTIVATION TO LEARN: Eager Interested FAMILY SUPPORT: High - Very involved in pt care INSTRUCTION PROVIDED TO: Patient PATIENT LEARNS BEST BY: Individual Instruction FACTORS AFFECTING LEARNING: None PHYSICAL LIMITATIONS AFFECTING LEARNING: Pain LEARNING RESPONSE DIAGNOSIS: ADULT: Well Adult PATIENT/FAMILY RESPONSE: Verbalizes understanding of: PRE-PROCEDURE INSTRUCTIONS-Correct action to take to follow pre-procedure instructions METHOD OF INSTRUCTION: Individual instruction FOLLOW-UP PLAN: Patient instructed to call with any further issues INSTRUCTIONAL AIDS USED: NA SUPPLEMENTAL MATERIAL PROVIDED TO PATIENT: None REFERRAL (RECOMMENDATION): None Electronically Signed By: Gracie Abraham [facility] OPERATIVE NOon 05-17-2023 OPERATIVE NO HNO ID: [id number] Author: Macario Santos DPM Service: Podiatry Author Type: Physician Type: Operative Report Filed: 05/17/2023 1:58 PM Note Text: SURGERY OPERATIVE NOTE LOG ID: [id number] Surgery/Procedure Date: 05/17/2023 Incision/Procedure Start Time: 8:25 AM Incision Close/Procedure End Time: 11:33 AM Surgeon(s)/Proceduralis t(s) and Career Technical Education Teacher(s): Surgeon(s) and Role: * Macario Santos DPM - Primary Physician Career Technical Education Teacher: Leslie Teresa PA-C PRE-OP/PRE-PROCEDURE DIAGNOSIS: Right foot hardware failure Right ankle instability Right rearfoot arthritis POST-OP/POST-PROCEDURE DIAGNOSIS: Same as Pre-Op SURGERY/PROCEDURE(S): Right Leg removal of deep hardware Right Ankle fusion Right subtalar joint fusion Fibular osteotomy right ankle Whitefield of bone marrow autograft right leg Application of posterior splint right leg ANESTHESIA: General HEMOSTASIS: Thigh tourniquet set at 300 mmHg ESTIMATED BLOOD LOSS: 150 mls MATERIALS: Fayette tibial nail INDICATIONS: This 63 year old female presents to the operating room today for the above said procedures. The nature of their condition, post operative recovery, risks and complications including but not limited to numbness, tingling, burning, over and under correction, problems of healing soft tissue or bone, chronic pain and disability, need for further surgery or revision, amputation, loss of limb or life, have all been discussed with the patient in detail. All questions have been answered to the patient's satisfaction, and no promises or guarantees given. SURGERY/PROCEDURE DETAILS: Under mild sedation the patient was brought into the operating room, placed on the operating room table in the supine position. Anesthesia was induced. The patient's leg was confirmed to be the correct limb, was then scrubbed, prepped, and draped in the usual, aseptic manner. Attention was was directed to the operative leg. Using a #15 blade a stab incision was made to the proximal tibial tuberosity where bone marrow aspirate was done for an autograft for the fusion and passed off the field to be processed by [employer] per their manufactures recommended technique. This marrow was spun down and concentrated and mixed with the autograft bone chips. Next a 15 blade was utilized to make a stab incision to the 3 screws that were identified under C arm on the heel and anterior ankle and the 3 screws were removed in total. These were deep to subcutaneous tissue and buried within the bone. Next using #15 blade a lateral incision was made overlying the fibula and ankle joint and subtalar joint. The incisions were further down using both blunt and sharp dissection to the layer of the bone of the fibula. The fibula was then exposed and a an oscillating saw was utilized to make an osteotomy into the fibula and the distal portion of the fibula was removed in total. This was cut in half and the cancellous bone was harvested and mixed with the marrow autograft for the fusion and placed into the ankle joint once it was prepped. Next using curettes and rongeur the ankle joint and subtalar joint were prepared. All cartilage was removed from the areas. Once the cartilage was removed the joint surfaces were subchondral drilled. The area was then flushed of all debris. Next the intramedullary nail was prepared. The wire was placed as a guidewire from the calcaneus into the talus and into the tibia and checked under multiple views of C arm. Then using the manufactures recommended technique the drilling and reaming was then performed. Once this was completed the Fayette nail was placed into the leg and using the jig the crossing screws were then placed into the leg and confirmed Abhilash C arm to be within the nail itself. The fusion was then complete after the compression screw was removed from the nail. The incisions were then flushed with copious amounts of normal sterile saline and closed in a layered fashion using Vicryl and francine for the skin. The operative area was then dressed with dry, sterile dressings and a posterior splint. The patient tolerated the procedure and anesthesia well in apparent satisfactory condition and was transported to the PACU with vital signs stable and vascular status intact to the leg for further monitoring prior to returning the patient to the floor. SPECIMENS: None VASCULAR ASSESSMENT: Healthy and controlled bleeding to the surgical site FINDINGS: Good alignment of the leg confirmed clinically and radiographically DRAINS: None COMPLICATIONS: None PARTICIPATION IN SURGERY/PROCEDURE: I was present and performed the procedure with assistance. The PA assisted with positioning, retraction; and visualization of the operative field and moreover helped to complete the procedures in a technically safe and efficient manner. There were no qualified residents available to assist. (more content not included)... [facility] XR ANKLE 2V AP/LAT RTon XR ANKLE 2V AP/LAT RT * * *Final Report* * * DATE OF EXAM: May 17 2023 10:49AM [facility] [id number] - XR ANKLE 2V AP/LAT RT / PROCEDURE REASON: ARTHRODESIS ANKLE - Right * * * * Physician Interpretation * * * * EXAMINATION: XR ANKLE 2V AP/LAT RT HISTORY: INTRA OP RIGHT ANKLE ARTHRODESIS ANKLE - Right. TECHNIQUE: XR ANKLE 2V AP/LAT RT Laterality: Number of different views (projections): M: XB_1 COMPARISON: Ankle radiograph 04/22/2023 RESULT: Intraoperative fluoroscopy was provided for right ankle arthrodesis performed by Dr. MACARIO SANTOS. 2:55 minutes:seconds of fluoroscopy time was utilized. 6 images were obtained. Images demonstrate ankle and hindfoot arthrodesis in progress including talocalcaneal screw exchange, distal fibular resection, retrograde tibial-calcaneal locked medullary nail placement Please see procedure report for complete details. First Aid Nurse: SUBHASH Transcribe Date/Time: May 17 2023 2:29P Dictated by : MIGUEL HERNANDEZ MD This examination was interpreted and the report reviewed and electronically signed by: MIGUEL HERNANDEZ MD on May 17 2023 2:33PM EST [id number] [facility] NM CARDIAC PERF STRESS/PHARM on 05-14-2023 NM CARDIAC PERF STRESS/PHARM * * *Final Report* * * DATE OF EXAM: May 14 2023 2:02PM [facility] 0006 - NM CARDIAC PERF STRESS/PHARM / PROCEDURE REASON: Preoperative cardiovascular examination * * * * Physician Interpretation * * * * Stress Senior C Developer Report: [place] [id number] Date of service: 05/14/2023 12:27:48 PM Supervising physician: Patrice Dalton MD PATIENT: Name: MARIE SEXTON Age: 63 years Gender: F The supervising physician was in the department and immediately available. * * * Final * * * ---- PATIENT: Name: MARIE SEXTON Age: 63 years Gender: F CONCLUSIONS: 1. SPECT Perfusion Study: Normal. 2. There is no scintigraphic evidence for inducible ischemia. 3. No evidence of scarred myocardium. 4. Left ventricle is normal in size. The left ventricle systolic function is normal. 5. Right ventricle is normal in size. The right ventricle systolic function is normal. 6. This is a low risk scan. Gated Stress FBP Gated Rest FBP LVEF % 89 81 Prior Study Comparison No prior nuclear cardiology exam available for comparison. Nuclear Med Report:1-Day Gated SPECT Myocardial Perfusion with Regadenoson Stress: Myocardial perfusion imaging was performed at rest 30 minutes following the IV injection of the radiotracer. The patient received 0.4 mg of regadenoson, via rapid IV push, immediately followed by radiotracer IV. Gated post stress tomographic imaging was performed 30 to 60 minutes later. See administered radiotracer and doses below. [facility] [place] Date of service: 05/14/2023 12:27:48 PM Ordering Physician: DANA GOYAL. Requesting Physician: DANA GOYAL Indication: Preop eval for noncard surg with intermediate risk and poor exercise tolerance Fellow: Annabelle Samano MD Interpreting physician: Patrice Dalton MD Height: 185.40 cm BSA: 2.17 m? Weight: 91.17 kg BMI: 26.5 kg/m? Imaging Protocol Limitation Reason Patient motion and G.I. uptake. CT Dose-Length Product(DLP): 17.0 mGy * cm. CT Dose Reduction Employed: Yes. Exam Type: Rest Stress Radiopharm: Tc-99m Tetrofosmin Tc-99m Tetrofosmin Dosage(mCi): 13.1 33.3 Atten Correction: not performed performed Stress Agent: Regadenoson 0.4mg Supply provided from [facility] Resting Blood Press: 128/72 mmHg Image Quality The overall study imaging quality was deemed to be poor. The following technical issues were noted: Patient motion and G.I. uptake. FINDINGS: Left Ventricle Wall Motion: Stress IR:3D - All segments are normal. Rest IR:3D - Gated Stress FBP - Reversibility - Gated Rest FBP - Stress IR:3D Stress IR:3D Gated Stress FBP Gated Rest FBP LVEF: 89 % 81 % ED Volume: 74 ml 67 ml ES Volume: 8 ml 13 ml TID: 1.02 Perfusion Findings Stress IR:3D - Summed Score=0 All segments demonstrate normal perfusion. Rest IR:3D - Summed Score=0 All segments demonstrate normal perfusion. Stress IR:3D Rest IR:3D Summed Score=0 Summed Score=0 LEFT VENTRICLE The left ventricle is normal in size. Left ventricular systolic function is normal. Right Ventricle The right ventricle is normal in size. Right ventricle systolic function is normal. Stress Test Findings: There is no scintigraphic evidence for inducible ischemia. There is no evidence of scarring. The left ventricular cavity size is unchanged with stress. * * * Final * * * ---- NM CTAC Report: [facility] Date of service: 05/14/2023 12:27:48 PM CTAC interpreting physician: Patrice Dalton MD PATIENT: Name: MARIE SEXTON Age: 63 years Gender: F 1. Incidental Findings from limited non-diagnostic CTAC: - Coronary calcifications visualized. * * * Final * * * ---- Stress ECG Report: [facility] Date of service: 05/14/2023 12:27:48 PM Ordering physician: DANA GOYAL retail support specialist: Rosina Gonzalez Career Technical Education Teacher: Prem Shields Fellow: Annabelle Woodard MD and Darci Samano MD Interpreting physician: Patrice Dalton MD Patient name: MARIE SEXTON Age: 63 years Gender: F Height: 185.40 cm BSA: 2.17 m? Weight: 91.17 kg BMI: 26.5 kg/m? Indication: Encounter for pre-procedural cardiovascular examination for non-cardiac surgery Stress ECG Conclusion: Conclusion: Normal Stress ECG Summary: The patient's resting heart rate was 60 bpm and blood pressure was 128/72 mmHg. The test was terminated due to end of protocol. No symptoms provoked during stress. The maximum heart rate was 80 bpm, which is 51% of (more content not included)... Normal [facility] PVR ANK/VILCHIS/TOE FRANCESCO VAS LAB on 05-14-2023 PVR ANK/VILCHIS/TOE FRANCESCO VAS LAB Non-Invasive Vascular Laboratory [facility] F30 Lower Extremity Arterial Physiology Study Bilateral/Complete Date of service/time: 05/14/2023 8:16:31 AM Name: MARIE SEXTON Date of : 1960 Age: 63 years Gender: F Clinical Indication Pre-operative right ankle surgery. TECHNIQUE -------- An arterial physiological examination was performed, including measurement of blood pressures using continuous wave Doppler and recording of plethysmographic with or without Doppler waveforms at the below-mentioned limb segments. FINDINGS -------- RIGHT SIDE AT REST Right Pressures Brachial: 156 mmHg Ankle dorsalis pedis: 150 mmHg DAYNA: 0.96 Ankle posterior tibial: 165 mmHg DAYNA: 1.06 Digit: 102 mmHg Right PVR Waveforms Ankle: Normal. Transmetatarsal: Normal. Digit: Mildly dampened. LEFT SIDE AT REST Left Pressures Brachial: 153 mmHg Ankle dorsalis pedis: 150 mmHg DAYNA: 0.96 Ankle posterior tibial: 166 mmHg DAYNA: 1.06 Digit: 121 mmHg Left PVR Waveforms Ankle: Normal. Transmetatarsal: Normal. Digit: Normal. IMPRESSION Technically difficult exam due to edema. RIGHT SIDE Resting right ankle brachial index: 1.06 Right toe brachial index: 0.65 Normal ankle brachial index at rest in the right leg. Abnormal toe brachial index at rest is evidence of peripheral artery disease. Right ankle: Normal at rest. Right small vessel disease versus vasoconstriction. LEFT SIDE Resting left ankle brachial index: 1.06 Left toe brachial index: 0.78 Normal ankle brachial index at rest in the left leg. Normal toe brachial index at rest in the left leg. Left ankle: Normal at rest. Technologist: Mai Khanna RVT Ordering physician: DANA GOYAL Interpreting physician: Casie Moore MD, CYNTHIA Final CC [employer] [facility] Image : [id number] oDynamicsSISUID See Link below for Image Normal [facility] LEG ARTERIAL PERIPH FRANCESCO V LABon 05-14-2023 LEG ARTERIAL PERIPH FRANCESCO VAS LAB Non-Invasive Vascular Laboratory [facility] F30 Lower Extremity Arterial Duplex Bilateral/Complete Date of service/time: 05/14/2023 8:17:47 AM Name: MARIE SEXTON Date of : 1960 Age: 63 years Gender: F Medical History Diabetes: Yes Clinical Indication Pre-operative right ankle surgery, peripheral artery disease. TECHNIQUE -------- An arterial duplex ultrasound examination was performed, including grayscale imaging and color Doppler and spectral Doppler examination of the below mentioned arteries. FINDINGS -------- RIGHT ARTERIES External iliac distal: PSV: 165 cm/s. EDV: 0 cm/s. Multiphasic waveform. Common femoral proximal: PSV: 131 cm/s. EDV: 0 cm/s. Multiphasic waveform. Common femoral mid: PSV: 132 cm/s. EDV: 0 cm/s. Multiphasic waveform. Common femoral distal: PSV: 94 cm/s. EDV: 0 cm/s. Multiphasic waveform. Profunda femoral proximal: PSV: 70 cm/s. EDV: 0 cm/s. Multiphasic waveform. Superficial femoral origin: PSV: 116 cm/s. EDV: 0 cm/s. Multiphasic waveform. Superficial femoral proximal: PSV: 112 cm/s. EDV: 0 cm/s. Multiphasic waveform. Superficial femoral mid: PSV: 111 cm/s. EDV: 0 cm/s. Multiphasic waveform. Superficial femoral distal: PSV: 144 cm/s. EDV: 0 cm/s. Multiphasic waveform. Popliteal proximal: PSV: 101 cm/s. EDV: 0 cm/s. Multiphasic waveform. Popliteal mid: PSV: 124 cm/s. EDV: 0 cm/s. Multiphasic waveform. Popliteal distal: PSV: 98 cm/s. EDV: 0 cm/s. Multiphasic waveform. Posterior tibial proximal: PSV: 93 cm/s. EDV: 11 cm/s. Monophasic, intermediate resistive waveform. Posterior tibial mid: PSV: 111 cm/s. EDV: 12 cm/s. Monophasic, intermediate resistive waveform. Posterior tibial distal: PSV: 141 cm/s. EDV: 13 cm/s. Monophasic, intermediate resistive waveform. Peroneal proximal: PSV: 43 cm/s. EDV: 0 cm/s. Multiphasic waveform. Peroneal mid: PSV: 41 cm/s. EDV: 0 cm/s. Multiphasic waveform. Anterior tibial proximal: PSV: 81 cm/s. EDV: 0 cm/s. Multiphasic waveform. Anterior tibial mid: PSV: 89 cm/s. EDV: 0 cm/s. Multiphasic waveform. Anterior tibial distal: PSV: 132 cm/s. EDV: 0 cm/s. Multiphasic waveform. LEFT ARTERIES External iliac distal: PSV: 145 cm/s. EDV: 0 cm/s. Multiphasic waveform. Common femoral proximal: PSV: 165 cm/s. EDV: 0 cm/s. Multiphasic waveform. Common femoral mid: PSV: 134 cm/s. EDV: 0 cm/s. Multiphasic waveform. Common femoral distal: PSV: 117 cm/s. EDV: 0 cm/s. Multiphasic waveform. Profunda femoral proximal: PSV: 70 cm/s. EDV: 0 cm/s. Multiphasic waveform. Superficial femoral origin: PSV: 122 cm/s. EDV: 0 cm/s. Multiphasic waveform. Superficial femoral proximal: PSV: 96 cm/s. EDV: 0 cm/s. Multiphasic waveform. Superficial femoral mid: PSV: 95 cm/s. EDV: 0 cm/s. Multiphasic waveform. Superficial femoral distal: PSV: 73 cm/s. EDV: 0 cm/s. Multiphasic waveform. Popliteal proximal: PSV: 106 cm/s. EDV: 0 cm/s. Multiphasic waveform. Popliteal mid: PSV: 83 cm/s. EDV: 0 cm/s. Multiphasic waveform. Popliteal distal: PSV: 92 cm/s. EDV: 0 cm/s. Multiphasic waveform. Posterior tibial proximal: PSV: 80 cm/s. EDV: 0 cm/s. Multiphasic waveform. Posterior tibial mid: PSV: 114 cm/s. EDV: 0 cm/s. Multiphasic waveform. Posterior tibial distal: PSV: 100 cm/s. EDV: 0 cm/s. Multiphasic waveform. Peroneal proximal: PSV: 31 cm/s. EDV: 0 cm/s. Multiphasic waveform. Peroneal mid: PSV: 34 cm/s. EDV: 0 cm/s. Multiphasic waveform. Peroneal distal: PSV: 37 cm/s. EDV: 0 cm/s. Multiphasic waveform. Anterior tibial proximal: PSV: 54 cm/s. EDV: 0 cm/s. Multiphasic waveform. Anterior tibial mid: PSV: 89 cm/s. EDV: 0 cm/s. Multiphasic waveform. Anterior tibial distal: PSV: 72 cm/s. EDV: 0 cm/s. Multiphasic waveform. IMPRESSION Technically difficult exam due to edema. RIGHT SIDE External iliac artery, Common femoral artery, Superficial femoral artery and Popliteal artery distal: plaque noted without evidence of hemodynamically significant stenosis . Profunda femoral artery proximal: patent . Posterior tibial artery and Anterior tibial artery : patent . Peroneal artery proximal to mid: patent . Not visualized at distal. LEFT SIDE External iliac artery and Common femoral artery distal: plaque noted without evidence of hemodynamically significant stenosis . Profunda femoral artery proximal: patent . Superficial femoral artery : patent . Popliteal artery distal: plaque noted without evidence of hemodynamically significant stenosis . Posterior tibial artery, Peroneal artery and Anterior tibial artery : patent . Visualized in segments. Technologist: Mai Khanna T Ordering physician: DANA GOYAL Interpreting physician: Casie Moore MD, RPVI Final CC [employer] [facility] Image : [id number]. (more content not included)... Normal [facility] HISTORY PHYSICALon HISTORY PHYSICAL HNO ID: [id number] Author: Indiana Clemens PA-C Service: ? Author Type: Physician Career Technical Education Teacher Type: HANDP Filed: 05/14/2023 4:12 PM Note Text: HISTORY AND PHYSICAL EXAMINATION SERVICE DATE: 05/12/2023 SERVICE TIME: 9:20 AM PRIMARY CARE PHYSICIAN: Collins Andrews MD REASON FOR VISIT: Marie Sexton is a 63 year old female who is scheduled for ARTHRODESIS ANKLE - Right ARTHRODESIS SUBTALAR - Right REMOVAL HARDWARE ANKLE - Right DIAGNOSTIC BONE MARROW ASPIRATION(S) - Right REPAIR DISLOCATING PERONEAL TENDONS/FIBULAR OSTEOTOMY - Right at the request of Dr. Macario Santos for consultation. My final recommendation will be communicated back to the requesting physician by way of shared medical record or letter. The patient has the following: ACTIVE PROBLEM LIST diabetes Neuropathy Hallux Extensus, Acquired Htn (Hypertension) Ibs (Irritable Bowel Syndrome) Arthritis Diabetic Foot Ulcer (Hcc) Arthritis of Right Subtalar Joint Pttd (Posterior Tibial Tendon Dysfunction) Diabetes Mellitus Type 2 With Neurological Manifestations (Hcc) Gastrocnemius Equinus of Right Lower Extremity Difficulty Walking Former Smoker Asthma Subjective CHIEF COMPLAINT: Charcot Ankle HPI: 63 year old female presents with charcot ankle - right. Hx of diabetic foot ulcer and multiple lower extremity surgeries. Recommended for above surgery and elected to proceed. 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 numbness and tingling hands Snores Ulcer bilateral feet/ had for 2 years left foot and right foot for about 4 months / uses ointment to feet once a day. / ulcers are draining blood or no yellow or green draininage. Varicose veins Weakness arms and legs PAST SURGICAL HISTORY Procedure Laterality Date LIG/TRNSXJ FLP TUBE ABDL/VAG APPR UNI/BI Tubal ligation PAST SURGICAL HISTORY OF surgery to left foot x 5 PAST SURGICAL HISTORY OF right foot surgery x2 FAMILY HISTORY Problem Relation Age of Onset Anesthesia Problems No Family History SOCIAL HISTORY: Social History Tobacco Use Smoking status: Former Packs/day: 1.50 Years: 10.00 Pack years: 15.00 Types: Cigarettes Quit date: 04/24/2009 Years since quittin.0 Substance Use Topics Alcohol use: Yes Comment: occasional Drug use: No Prior to Admission medications as of 05/12/23 0924 Medication Sig Last Dose Taking FLUoxetine (PROZAC) 40 mg capsule Take by mouth. Yes insulin 70-30 aspart protamine-aspart (NOVOLOG MIX 70/30) 100 units/mL injection INJECT 26 UNITS TWICE DAILY SUBCUTANEOUSLY Taking Yes omega-3 acid ethyl esters (LOVAZA) 1 gram capsule Take by mouth. Taking Yes vit B complex no.12/niacin,B3, (VITAMIN B COMPLEX NO.12-NIACIN ORAL) Take 2,500 mg by mouth. Taking Yes Biotin 10,000 mcg cap Take by mouth. Taking Yes Cholecalciferol, Vitamin D3, 25 mcg (1,000 unit) cap Take 1,000 Units by mouth once daily. Taking Yes TURMERIC ORAL Take 500 mg by mouth. Taking Yes turmeric (CURCUMIN MISC) Taking Yes HYDROCODONE-ACETAMINOPH EN 7.5-300 mg tab Taking Yes zolpidem (AMBIEN) 5 mg tablet Take 1 tablet by mouth at bedtime as needed (for insomnia.). Taking Yes CINNAMON BARK-CHROMIUM PICOLIN ORAL Take 2,000 mg by mouth twice daily. Taking Yes LANTUS 100 unit/mL injection 70 Units daily at bedtime. Indications: DIABETES MELLITUS Taking Yes LEVOTHYROXINE 100 mcg tablet Taking Yes INSULIN SYRINGE-NEEDLE U-100 1 mL 29 x 1/2 syrg Taking Yes TRAZODONE 50 mg tablet Take 50 mg by mouth daily at bedtime. Taking Yes ZOLPIDEM 10 mg tab Take 10 mg by mouth daily at bedtime. Taking Yes INSULIN REGULAR, HUMAN (HUMULIN R INJECTION) 20 Units by INJECTION(UNSPECIFIED PARENTERAL ROUTES) route three times daily with meals. Taking Yes metFORMIN 1,000 mg ORAL tablet Take 1,000 mg by mouth twice daily with meals. Taking Yes hydrochlorothiazide 25 mg ORAL tablet Take 25 mg by mouth once daily. Taking Yes gabapentin 300 mg ORAL capsule Take 800 mg by mouth once daily. PATIENT STATES SHE TAKES ONE TO FOUR TIMES A DAY Taking Yes budesonide-formoterol (SYMBICORT) 160-4.5 mcg/actuati (more content not included)... Normal [facility] CNOVon 05-07-2023 CNOV Office Visit (CARINF ) MARIE SEXTON Kasey ([id number]) 1960 F Date Time Provider Department 05/07/23 2:00 PM DANA GOYALINF During your visit today, we recorded the following information about you: Pulse Blood pressure 68/minute 120/66 Dana Goyal MD 05/07/2023 3:11 PM Signed [facility] [place] Natalia Shrestha Department of Cardiovascular Medicine SECTION OF INTERVENTIONAL CARDIOLOGY OUTPATIENT VISIT DATE 05/07/2023 OUTPATIENT VISIT TYPE New PRIMARY CARE PHYSICIAN: Collins Andrews ([facility]) [address] [place] [address] REFERRING PHYSICIAN: No referring provider defined for this encounter. CHIEF COMPLAINT: Patient presents with: New Patient HISTORY OF PRESENT ILLNESS: Ms. Sexton is a 63 year old female who presents today for preoperative cardiovascular examination prior to right ankle surgery. Patient has a history of diabetic foot ulcer and multiple bilateral lower extremity surgeries. She is not able to walk 4 blocks or climb 2 flights of stairs given her multiple surgeries and diabetic foot ulcer. She denies any ongoing chest pain, shortness of breath, dyspnea on exertion, orthopnea, PND, lightheadedness, dizziness, loss of consciousness. Risk factors for coronary artery disease hyperlipidemia, history of smoking, diabetes She denies chest pain, shortness of breath, dyspnea on exertion, orthopnea, PND, palpitations, lightheadedness, syncope, leg swelling, cough, and wheezing. Diet / Nutrition: Is working on her diet to control her diabetes last A1c is 6.2 Weight: no change since last visit Exercise: As above. 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 numbness and tingling hands Snores Ulcer bilateral feet/ had for 2 years left foot and right foot for about 4 months / uses ointment to feet once a day. / ulcers are draining blood or no yellow or green draininage. Varicose veins Weakness arms and legs PAST SURGICAL HISTORY Procedure Laterality Date LIG/TRNSXJ FLP TUBE ABDL/VAG APPR UNI/BI Tubal ligation PAST SURGICAL HISTORY OF surgery to left foot x 5 PAST SURGICAL HISTORY OF right foot surgery x2 SOCIAL HISTORY Social History Tobacco Use Smoking status: Former Packs/day: 1.50 Years: 10.00 Pack years: 15.00 Types: Cigarettes Quit date: 04/24/2009 Years since quittin.0 Substance Use Topics Alcohol use: Yes Comment: occasional Drug use: No No family history on file. ALLERGIES: ALLERGIES Allergen Reactions Codeine GI Upset Demerol [Meperidine* Other: See Comments patient unsure Morphine Itching MEDICATIONS: insulin 70-30 aspart protamine-aspart (NOVOLOG MIX 70/30) 100 units/mL injection INJECT 26 UNITS TWICE DAILY SUBCUTANEOUSLY omega-3 acid ethyl esters (LOVAZA) 1 gram capsule Take by mouth. meloxicam (MOBIC) 15 mg tablet Take 1 tablet by mouth once daily. vit B complex no.12/niacin,B3, (VITAMIN B COMPLEX NO.12-NIACIN ORAL) Take 2,500 mg by mouth. Biotin 10,000 mcg cap Take by mouth. Cholecalciferol, Vitamin D3, 25 mcg (1,000 unit) cap Take 1,000 Units by mouth once daily. TURMERIC ORAL Take 500 mg by mouth. turmeric (CURCUMIN MISC) HYDROCODONE-ACETAMINOPH EN 7.5-300 mg tab cephALEXin 500 mg capsule Take 1 capsule by mouth three times daily. zolpidem (AMBIEN) 5 mg tablet Take 1 tablet by mouth at bedtime as needed (for insomnia.). CINNAMON BARK-CHROMIUM PICOLIN ORAL Take 2,000 mg by mouth twice daily. LANTUS 100 unit/mL injection 70 Units daily at bedtime. Indications: DIABETES MELLITUS LEVOTHYROXINE 100 mcg tablet INSULIN SYRINGE-NEEDLE U-100 1 mL 29 x 1/2 syrg TRAZODONE 50 mg tablet Take 50 mg by mouth daily at bedtime. ZOLPIDEM 10 mg tab Take 10 mg by mouth daily at bedtime. INSULIN REGULAR, HUMAN (HUMULIN R INJECTION) 20 Units by INJECTION(UNSPECIFIED PARENTERAL ROUTES) route three times daily with meals. metFORMIN 1,000 mg ORAL tablet Take 1,000 mg by mouth twice daily with meals. hydrochlorothiazide (more content not included)... Normal [facility] [id number] 05-07-2023 ECG01 Ventricular Rate : 6 8 BPM Atrial Rate : 68 BPM P-R Interval : 156 ms QRS Duration : 74 ms Q-T Interval : 394 ms QTC Calculation(Bazett) : 418 ms Calculated P [place] : 55 degrees Calculated R [place] : 52 degrees Calculated T [place] : 64 degrees NORMAL SINUS RHYTHM NORMAL ECG Confirmed by MOIZ MAHER MD ([id number]) on 05/17/2023 10:36:53 AM NAME : MARIE SEXTON PID : [id number] : 1960 Gender : Female Race : ORD : Procedure Date : May 07 2023 14:19:56 Edit Date : May 17 2023 10:36:56 Diagnosis: NORMAL SINUS RHYTHM NORMAL ECG Confirmed by MOIZ MAHER MD ([id number]) on 05/17/2023 10:36:53 AM Test Reason : Location : 192 : AVCRD Overread By : MOIZ MAHER MD Edited By : MOIZ MAHER MD Referred By : , Acquired by : , Eusebio [facility] Bimal 05-05-2023 CNPN Telephone (ORFWHP) DARSHANMARIE ([id number]) 1960 F Date Time Provider Department 05/05/23 [facility] During your visit today, we recorded the following information about you: Pennie Quezada Pss 05/05/2023 1:47 PM Signed planner scheduler spoke to patient with her daughter(Jennifer) regarding 05/17/23 surgery with . Will also review on MyChart. Allergies As of Date: 05/05/2023 Noted Allergy Reaction CODEINE 05/01/2008 8 - GI Upset DEMEROL (MEPERIDINE (PF)) 05/01/2008 14 - Other: See Comments Comments: patient unsure MORPHINE 06/11/2011 9 - Itching Date Reviewed: 05/03/2023 Reviewed by: Regi Cherry Ma - Fully Assessed Reason for Visit: Surgical Follow Up [176] Prescriptions as of 05/05/2023 - insulin 70-30 aspart protamine-aspart (NOVOLOG MIX 70/30) 100 units/mL injection INJECT 26 UNITS TWICE DAILY SUBCUTANEOUSLY - omega-3 acid ethyl esters (LOVAZA) 1 gram capsule Take by mouth. - meloxicam (MOBIC) 15 mg tablet Take 1 tablet by mouth once daily. - vit B complex no.12/niacin,B3, (VITAMIN B COMPLEX NO.12-NIACIN ORAL) Take 2,500 mg by mouth. - Biotin 10,000 mcg cap Take by mouth. - Cholecalciferol, Vitamin D3, 25 mcg (1,000 unit) cap Take 1,000 Units by mouth once daily. - TURMERIC ORAL Take 500 mg by mouth. - turmeric (CURCUMIN MISC) - HYDROCODONE-ACETAMINOPH EN 7.5-300 mg tab - cephALEXin 500 mg capsule Take 1 capsule by mouth three times daily. - zolpidem (AMBIEN) 5 mg tablet Take 1 tablet by mouth at bedtime as needed (for insomnia.). - CINNAMON BARK-CHROMIUM PICOLIN ORAL Take 2,000 mg by mouth twice daily. - LANTUS 100 unit/mL injection 70 Units daily at bedtime. Indications: DIABETES MELLITUS - LEVOTHYROXINE 100 mcg tablet - INSULIN SYRINGE-NEEDLE U-100 1 mL 29 x 1/2 syrg - TRAZODONE 50 mg tablet Take 50 mg by mouth daily at bedtime. - ZOLPIDEM 10 mg tab Take 10 mg by mouth daily at bedtime. - INSULIN REGULAR, HUMAN (HUMULIN R INJECTION) 20 Units by INJECTION(UNSPECIFIED PARENTERAL ROUTES) route three times daily with meals. - metFORMIN 1,000 mg ORAL tablet Take 1,000 mg by mouth twice daily with meals. - hydrochlorothiazide 25 mg ORAL tablet Take 25 mg by mouth once daily. - gabapentin 300 mg ORAL capsule Take 800 mg by mouth once daily. PATIENT STATES SHE TAKES ONE TO FOUR TIMES A DAY - budesonide-formoterol (SYMBICORT) 160-4.5 mcg/actuation inhaler Inhale 2 Puffs as instructed as needed. - albuterol HFA (PROVENTIL HFA, VENTOLIN HFA) 90 mcg/actuation inhaler Inhale 2 Puffs as instructed as needed. Problem List As Of Date 05/05/2023 Noted Resolved diabetes [GCE8617] Neuropathy [G62.9] Hallux extensus, acquired [M20.5X9] HTN (hypertension) [I10] IBS (irritable bowel syndrome) [K58.9] Arthritis [M19.90] Diabetic foot ulcer [E11.621, L97.509] 12/21/2013 Arthritis of right subtalar joint [M19.071] 05/06/2021 PTTD (posterior tibial tendon dysfunction) [M76*05/06/2021 Diabetes mellitus type 2 with neurological shon*05/06/2021 Gastrocnemius equinus of right lower extremity *05/06/2021 Difficulty walking [R26.2] 05/06/2021 Encounter Status:Closed by PENNIE BOLAND on 05/05/23 [facility] CNOVon 05-03-2023 CNOV Office Visit (ORFWHP ) DARSHANMARIE ([id number]) 1960 F Date Time Provider Department 05/03/23 3:00 PM MACARIO SANTOS ORFWHP During your visit today, we recorded the following information about you: Macario Santos DPM 05/10/2023 2:05 PM Addendum PODIATRIC MEDICINE AND SURGERY OFFICE NOTE Complaint: Right Charcot surgical referral HPI: This 63 year old female presents to the clinic today to discuss the surgical options and to review her CT scan. Patient was reluctant to go forward with a fusion but after a long discussion with the patient and her daughter today, she understands that definitive fixation for her Charcot and collapsing ankle is more appropriate than multiple other surgeries. She is here to discuss her right ankle fusion. 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 numbness and tingling hands Snores Ulcer bilateral feet/ had for 2 years left foot and right foot for about 4 months / uses ointment to feet once a day. / ulcers are draining blood or no yellow or green draininage. Varicose veins Weakness arms and legs PAST SURGICAL HISTORY Procedure Laterality Date LIG/TRNSXJ FLP TUBE ABDL/VAG APPR UNI/BI Tubal ligation PAST SURGICAL HISTORY OF surgery to left foot x 5 PAST SURGICAL HISTORY OF right foot surgery x2 No current facility-administered medications for this visit. ALLERGIES Allergen Reactions Codeine GI Upset Demerol [Meperidine* Other: See Comments patient unsure Morphine Itching No family history on file. Social History Tobacco Use Smoking status: Former Packs/day: 1.50 Years: 10.00 Pack years: 15.00 Types: Cigarettes Quit date: 04/24/2009 Years since quittin.0 Substance Use Topics Alcohol use: Yes Comment: occasional Drug use: No --------- Current Opioids Analgesic Opioid Hydrocodone Combinations Start End HYDROCODONE-ACETAMINOPH EN 7.5-300 mg tab 04/24/2014 Class: Historical Med Analgesic Opioid Hydrocodone and Non-Salicylate Combinations Start End HYDROCODONE-ACETAMINOPH EN 7.5-300 mg tab 04/24/2014 Class: Historical Med CHAYITO Modifiable Risk Factors (MoRF) Obesity Unknown Risk High: BMI > 40 Moderate: BMI 30-40 Normal: BMI < 30 Diabetes Moderate Risk High: A1C > 8 Moderate: A1C 7-8 Normal: A1C < 7 Smoking normal High: Current smoker Normal: Non smoker Anemia normal High: Hgb < 11.5 (women) N/A: Hgb >= 11.5 (women) Nutritional Status normal High: Alb<3.4, or prealb<15, or serum transferrin<200, or total lymphocyte count<1500 Normal: normal labs Narcotics Use High Risk High:NarxCare >=300 Moderate: 100-299 Normal: 0-99 Obesity: height and/or weight are out of date (There is no height and/or weight reading in the past 365 days, so the below BMI readings may be inaccurate) BMI Readings from Last 3 Encounters: 02/24/21 : 29.03 kg/m? 06/27/14 : 28.50 kg/m? 05/30/14 : 28.50 kg/m? Diabetes: Well controlled - Mraie has been diagnosed with Type 2 Diabetes. Her last Hemoglobin A1C was 5.7 (04/12/2014). NarxCare score NARX Narcotics: 390 (05/03/2023 3:15 PM) ------- REVIEW OF SYSTEMS: CONSTITUTIONAL: No fevers, chills, nightsweats, unintended weight loss HEENT: Denies frequent or severe headaches, nasal congestion/sinus symptoms, problematic allergy problems. EYES: No diplopia or blurry vision. CARDIOVASCULAR: No chest pain, dyspnea, palpitations, orthopnea, PND. PULM: No dyspnea, unexplained cough. GI: No dysphagia/odynophagia, problematic reflux, constipation, diarrhea, changes in stool habits, hematochezia, melena. : No new urinary complaints, including dysuria, gross hematuria or pyuria. NEURO: No new balance problems, peripheral weakness/paresthesias or numbness of concern. MUSC-SKEL: No new joint pain, swelling, or erythema. PSY: No concerns regarding depression, anxiety or panic. INTEGUMENTARY: Skin changes as noted below. I have confirmed and edited as nec (more content not included)... [facility] 04-22-2023 [facility] Office Visit (JAE ) MARIE SEXTON ([id number]) 1960 F Date Time Provider Department 04/22/23 2:15 PM MACARIO SANTOS During your visit today, we recorded the following information about you: Macario Santos DPM 05/03/2023 9:00 AM Signed PODIATRIC MEDICINE AND SURGERY OFFICE NOTE Complaint: Right Charcot surgical referral HPI: This 63 year old female presents to the clinic today as a surgical referral from . The patient has had most recent surgery on 03/22/2023 where she had a failed attempt at a deltoid repair. The patient has had 5-6 surgeries on this right lower extremity hoping to avoid a fusion but unfortunately it appears that the failed attempts is now pointing toward an ankle fusion. The patient states her hemoglobin A1c is 6.2% and she is trying her best to control her type 2 diabetes. Patient states that this collapse of her foot started about 5 years ago and has only gotten worse despite multiple surgical interventions. 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 numbness and tingling hands Snores Ulcer (HCC) bilateral feet/ had for 2 years left foot and right foot for about 4 months / uses ointment to feet once a day. / ulcers are draining blood or no yellow or green draininage. Varicose veins Weakness arms and legs PAST SURGICAL HISTORY Procedure Laterality Date LIGATE FALLOPIAN TUBE Tubal ligation PAST SURGICAL HISTORY OF surgery to left foot x 5 PAST SURGICAL HISTORY OF right foot surgery x2 No current facility-administered medications for this visit. ALLERGIES Allergen Reactions Codeine GI Upset Demerol [Meperidine* Other: See Comments patient unsure Morphine Itching No family history on file. Social History Tobacco Use Smoking status: Former Packs/day: 1.50 Years: 10.00 Pack years: 15.00 Types: Cigarettes Quit date: 04/24/2009 Years since quittin.0 Substance Use Topics Alcohol use: Yes Comment: occasional Drug use: No --------- Current Opioids Analgesic Opioid Hydrocodone Combinations Start End HYDROCODONE-ACETAMINOPH EN 7.5-300 mg tab 04/24/2014 Class: Historical Med Analgesic Opioid Hydrocodone and Non-Salicylate Combinations Start End HYDROCODONE-ACETAMINOPH EN 7.5-300 mg tab 04/24/2014 Class: Historical Med CHAYITO Modifiable Risk Factors (MoRF) Obesity Unknown Risk High: BMI > 40 Moderate: BMI 30-40 Normal: BMI < 30 Diabetes Moderate Risk High: A1C > 8 Moderate: A1C 7-8 Normal: A1C < 7 Smoking normal High: Current smoker Normal: Non smoker Anemia normal High: Hgb < 11.5 (women) N/A: Hgb >= 11.5 (women) Nutritional Status normal High: Alb<3.4, or prealb<15, or serum transferrin<200, or total lymphocyte count<1500 Normal: normal labs Narcotics Use High Risk High:NarxCare >=300 Moderate: 100-299 Normal: 0-99 Obesity: height and/or weight are out of date (There is no height and/or weight reading in the past 365 days, so the below BMI readings may be inaccurate) BMI Readings from Last 3 Encounters: 02/24/21 : 29.03 kg/m? 06/27/14 : 28.50 kg/m? 05/30/14 : 28.50 kg/m? Diabetes: Well controlled - Marie has been diagnosed with Type 2 Diabetes. Her last Hemoglobin A1C was 5.7 (04/12/2014). NarxCare score NARX Narcotics: 391 (04/22/2023 1:46 PM) ------- REVIEW OF SYSTEMS: CONSTITUTIONAL: No fevers, chills, nightsweats, unintended weight loss HEENT: Denies frequent or severe headaches, nasal congestion/sinus symptoms, problematic allergy problems. EYES: No diplopia or blurry vision. CARDIOVASCULAR: No chest pain, dyspnea, palpitations, orthopnea, PND. PULM: No dyspnea, unexplained cough. GI: No dysphagia/odynophagia, problematic reflux, constipation, diarrhea, changes in stool habits, hematochezia, melena. : No new urinary complaints, including dysuria, gross hematuria or pyuria. NEURO: No new balance problems, peripheral weakness/paresthesias or numbness o (more content not included)... Normal [facility] CT ANKLE WO IVCON RIGHTon [facility] CT ANKLE WO IVCON RTon 04-22 CT ANKLE WO IVCON RT * * *Final Report* * * DATE OF EXAM: Apr 22 2023 3:55PM [facility] 0061 - CT ANKLE WO IVCON RT / PROCEDURE REASON: Osteonecrosis (HCC) * * * * Physician Interpretation * * * * EXAMINATION: CT ANKLE WO IVCON RT HISTORY: Aseptic necrosis, ankle Osteonecrosis (HCC) . TECHNIQUE: CT ANKLE WO IVCON RT CONTRAST: None CT Radiation dose: Integrated Dose-length product (DLP) for this visit = 199 mGy*cm. CT Dose Reduction Employed: Automated exposure control(AEC) and iterative recon COMPARISON: RESULT: No loculated collection or mass seen within the limitation of noncontrast technique. There is atrophy of the intrinsic musculature of the foot with fatty replacement. Postoperative changes of calcaneal osteotomy with screw fixation and medial midfoot plate and screw arthrodesis. The surgical hardware appears to be intact. Minimal callus formation across the calcaneal osteotomy. Mild callus formation around the midfoot fusion without substantial regions of bony bridging. Mild degenerative change of the ankle. No acute fracture or dislocation. IMPRESSION: Intact postoperative changes of the right foot and ankle as described. First Aid Nurse: PSCB Transcribe Date/Time: Apr 22 2023 4:18P Dictated by : COLLINS BENJAMIN MD This examination was interpreted and the report reviewed and electronically signed by: COLLINS BENJAMIN MD on Apr 22 2023 4:22PM EST [id number] Normal [facility] XR ANKLE 3V AP/LAT/OBL RTon 04-22-2023 XR ANKLE 3V AP/LAT/OBL RT * * *Final Report* * * DATE OF EXAM: Apr 22 2023 2:26PM [facility] [id number] - XR ANKLE 3V AP/LAT/OBL RT / PROCEDURE REASON: Charcot's joint of right ankle * * * * Physician Interpretation * * * * ANKLE RADIOGRAPHS - RIGHT HISTORY: Charcot's joint of right ankle TECHNOLOGIST PROVIDED HISTORY (if applicable): chronic right ankle joint pain; Charcot's foot TECHNIQUE: XR ANKLE 3V AP/LAT/OBL RT COMPARISON: Radiographs 02/24/[address] ankle 04/22/2023 RESULT: Right ankle: Stents of surgical hardware of subtalar are through intercuneiform fusion calcaneal osteotomy. Hardware appears grossly intact. No acute or focal bony abnormality identified. IMPRESSION: 1. Extensive postoperative changes at the hindfoot and midfoot without complication identified. First Aid Nurse: [facility] Transcribe Date/Time: Apr 23 2023 4:47P Dictated by : RAMIRO PAEZ MD This examination was interpreted and the report reviewed and electronically signed by: RAMIRO PAEZ MD on Apr 23 2023 6:26PM EST [id number] Normal [facility] XR TIBIA FIBULA 2V AP/LAT LT on 04-22-2023 XR TIBIA FIBULA 2V AP/LAT LT * * *Final Report* * * DATE OF EXAM: Apr 22 2023 2:26PM [facility] [id number] - XR TIBIA FIBULA 2V AP/LAT LT / PROCEDURE REASON: Leg abscess * * * * Physician Interpretation * * * * TIBIA AND FIBULA RADIOGRAPHS - LEFT HISTORY: Leg abscess TECHNOLOGIST PROVIDED HISTORY (if applicable): left lower leg abscess near distal portion at site of previously removed surgical hardware TECHNIQUE: XR TIBIA FIBULA 2V AP/LAT LT COMPARISON: None available RESULT: Previous hardware tract at the distal medial tibia with chronic appearing cortical thickening with subcortical lucency and mild overlying soft tissue swelling. Remaining bony appearance is within normal limits. IMPRESSION: 1. Mild soft tissue swelling overlying the distal medial tibia in the area of described previous surgical changes. Chronic cortical thickening and nonspecific subcortical/intramedull sedrick lucency persisting. Cross-sectional imaging can be performed for for the characterization as clinically determined. . First Aid Nurse: [facility] Transcribe Date/Time: Apr 23 2023 4:49P Dictated by : RAMIRO PAEZ MD This examination was interpreted and the report reviewed and electronically signed by: RAMIRO PAEZ MD on Apr 23 2023 6:29PM EST [id number] Normal [facility] GLUCOSE-POCTon 03-22-2023 Glucose [Mass/Vol] 100 mg/dL High 74 - 99 [facility] Comment on above: Performed By: #### G JONATHAN #### [facility] [address] [place] [address] Glucose Test strip manual (B ld) [Mass/Vol]on 03-22-2023 Glucose [Mass/Vol] 100 mg/dL High 74 - 99 mg/dL [facility] Interpretation and review of laboratory results [facility] Order Reconciliationon 03-22 Order Reconciliation Page 1 Discharge Reconciliation Document Reconciliation Type: Discharge requested on behalf of Fang Rodriguez (Physician) done by Fang Rodriguez (DPM) Discharge - Partial Reconciliation: 22-Mar-2023 13:12 by: Fang Rodriguez (DPPawan) Discharge - Reconciliation: 22-Mar-2023 13:30 by: Fang Rodriguez (DPPawan) Home Medications EnteredHOME MEDICATIONS AT DISCHARGE DateReconciliation Comment/ Additional Information albuterol 90 mcg/inh inhalation aerosol 1 katie inhalation prn 04-Dec-2021 09:23 albuterol 90 mcg/inh inhalation aerosol 1 katie inhalation prn 04-Dec-2021 09:23 albuterol 90 mcg/inh inhalation aerosol is continued as albuterol 90 mcg/inh inhalation aerosol biotin 5000 mcg oral tablet, disintegrating 1 cap(s) oral twice a day 01-Jun-2022 11:18 biotin 5000 mcg oral tablet, disintegrating 1 cap(s) oral twice a day 01-Jun-2022 11:18 biotin 5000 mcg oral tablet, disintegrating is continued as biotin 5000 mcg oral tablet, disintegrating cinnamon 500 mg oral capsule 2 cap(s) oral twice a day 01-Jun-2022 11:18 cinnamon 500 mg oral capsule 2 cap(s) oral twice a day 01-Jun-2022 11:18 cinnamon 500 mg oral capsule is continued as cinnamon 500 mg oral capsule fenofibrate 48 mg oral tablet 1 cap(s) oral once a day 04-Dec-2021 09:19 fenofibrate 48 mg oral tablet 1 cap(s) oral once a day 04-Dec-2021 09:19 fenofibrate 48 mg oral tablet is continued as fenofibrate 48 mg oral tablet FLUoxetine 10 mg oral capsule 1 tab(s) oral once a day 01-Jun-2022 12:00 FLUoxetine 10 mg oral capsule 1 tab(s) oral once a day 01-Jun-2022 12:00 FLUoxetine 10 mg oral capsule is continued as FLUoxetine 10 mg oral capsule gabapentin 800 mg oral tablet 1 cap(s) oral 4 times a day 04-Dec-2021 09:16 gabapentin 800 mg oral tablet 1 cap(s) oral 4 times a day 04-Dec-2021 09:16 gabapentin 800 mg oral tablet is continued as gabapentin 800 mg oral tablet garlic - oral tablet 1 tab(s) oral once a day 01-Jun-2022 11:22 garlic - oral tablet 1 tab(s) oral once a day 01-Jun-2022 11:22 garlic - oral tablet is continued as garlic - oral tablet HumaLOG 100 units/mL subcutaneous solution 20 intl units subcutaneous 3 times a day (with meals) 01-Jun-2022 11:20 HumaLOG 100 units/mL subcutaneous solution 20 intl units subcutaneous 3 times a day (with meals) 01-Jun-2022 11:20 HumaLOG 100 units/mL subcutaneous solution is continued as HumaLOG 100 units/mL subcutaneous solution hydroCHLOROthiazide 25 mg oral tablet 1 cap(s) oral once a day 04-Dec-2021 09:17 hydroCHLOROthiazide 25 mg oral tablet 1 cap(s) oral once a day 04-Dec-2021 09:17 hydroCHLOROthiazide 25 mg oral tablet is continued as hydroCHLOROthiazide 25 mg oral tablet Lantus Solostar Pen 60 units subcutaneous once a day at bedtime 01-Jun-2022 11:20 Lantus Solostar Pen 60 units subcutaneous once a day at bedtime 01-Jun-2022 11:20 Lantus Solostar Pen is continued as Lantus Solostar Pen levothyroxine 100 mcg (0.1 mg) oral tablet 1 cap(s) oral once a day 04-Dec-2021 09:18 levothyroxine 100 mcg (0.1 mg) oral tablet 1 cap(s) oral once a day 04-Dec-2021 09:18 levothyroxine 100 mcg (0.1 mg) oral tablet is continued as levothyroxine 100 mcg (0.1 mg) oral tablet metFORMIN 1000 mg oral tablet 1 cap(s) oral twice a day 17-Mar-2023 10:53 metFORMIN 1000 mg oral tablet 1 cap(s) oral twice a day 17-Mar-2023 10:53 metFORMIN 1000 mg oral tablet is continued as metFORMIN 1000 mg oral tablet multivitamin Multiple Vitamins oral tablet 1 tab(s) oral once a day 01-Jun-2022 11:22 multivitamin Multiple Vitamins oral tablet 1 tab(s) oral once a day 01-Jun-2022 11:22 multivitamin Multiple Vitamins oral tablet is continued as multivitamin Multiple Vitamins oral tablet Belgrade-3 1000 mg oral capsule 1 cap(s) oral twice a day 01-Jun-2022 11:21 Belgrade-3 1000 mg oral capsule 1 cap(s) oral twice a day 01-Jun-2022 11:21 Belgrade-3 1000 mg oral capsule is continued as Belgrade-3 1000 mg oral capsule turmeric 500 mg oral capsule 1 tab(s) oral twice a day 01-Jun-2022 11:22 turmeric 500 mg oral capsule 1 tab(s) oral twice a day 01-Jun-2022 11:22 turmeric 500 mg oral capsule is continued as turmeric 500 mg oral capsule Vitamin B12 250 mcg oral tablet 1 cap(s) oral once a day 04-Dec-2021 09:20 Vitamin B12 250 mcg oral tablet 1 cap(s) oral once a day 04-Dec-2021 09:20 Vitamin B12 250 mcg oral tablet is continued as Vitamin B12 250 mcg oral tablet Vitamin B6 100 mg oral tablet 1 tab(s) oral once a day 01-Jun-2022 11:23 Vitamin B6 100 mg oral tablet 1 tab(s) oral once a day 01-Jun-2022 11:23 Vitamin B6 100 mg oral tablet is continued as Vitamin B6 100 mg oral tablet zolpidem 10 mg oral tablet 1 cap(s) oral once a day at bedtime 17-Mar-2023 10:53 zolpidem 10 mg oral tablet 1 cap(s) oral once a day at bedtime 17-Mar-2023 10:53 zolpidem 10 mg oral tablet is continued as zolpidem 10 mg oral tablet Current OrdersDateHOME MEDICATIONS AT DISCHARGE DateReconciliation Comment/ Additional Information ceFAZolin 2 gram/ D (more content not included)... Normal [facility] RF Unspecified body region L ess than 1 hour Views during surgeryon 03-22-2023 RIS LEGACY CONVERSIONS Conversion, Ge Radiology - 05/21/2023 [facility] Work Phone: Radiology Study observation (narrative) [facility] Work Phone: RF Unspecified body region L ess than 1 hour Views during surgeryOrdered By: Ge Conversion on 03-22-2023 [facility] Patient Profile - Preop v3on 03-19-2023 Patient Profile - Preop v3 Patient Profile - Preop: Initial Info: Patient DemographicsName: MARIE SEXTON Date: 1960 Address: [address] [place] [address] Date/Time [id number] 13:05 Primary Phone [phone] Instructions Givenappropriate clothing, 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 (procedure may be cancelled if no local owner operator truck driver), center location, remove jewerly/piercings, time to arrive, arrival time of 1130 for 1300 procedure Prep Instructions Reviewedyes Prep Typeper office Instructed to Have No Fluids Aftermidnight How to be AddressedJUNE Spoken Language PreferredEnglish Source of Informationpatient Stated Reason for AdmissionRIGHT ANKLE SUBLUXATION REPAIR/ HARDWARE REMOVAL/ CALCANEAL OSTEOTOMY/ SKIN FLAP CLOSURE WITH C-ARM Primary Contact Name and NumberDAUGHTER JENNIFER Limitations on Visitors/Phone Callsnone Medications Brought to Hospitalno General Health: Patient or Family Member Reaction to Anesthesiano previous reaction Blood Avoidance/Restrictionsn one Previous Transfusion Reactionnot applicable Health Mgmt: [facility] Barriers to Managing Healthnone Relationship/Environ: Lives Withalone Living Arrangementshouse Resource/Environmental Concernsnone Anticipated Transition [place] [facility] Anticipated at Transitionnone Tobacco Use: Tobacco Useno Pre-op Checklist: Arrival [id number] Arrival Time11:24 Procedure TypeRIGHT ANKLE SUBLUXATION REPAIR/ HARDWARE REMOVAL/ CALCANEAL OSTEOTOMY/ SKIN FLAP CLOSURE WITH C-ARM NPOyes Last Food [id number] 21:00 Last Clear Fluid [id number] 10:00 ID Band On Patientpatient ID (name), allergy, falls risk Consent Signedyes H&P Completeyes Anesthesia Assessment Completedyes EKG Performedsee results tab Chest X-Ray Performednot ordered Preop Antibioticssent to OR [facility] CommentN/A COVID 19 Results in Last 7 daysN/A Type and Screen Resultedn/a Chlorhexadine Bath Givennot applicable Nasal Antiseptic Appliednot applicable Hair Washed with Shampooyes Bowel Prepno Surgical Site Infection Preventionyes Pain Scales and Managementyes Additional Information: Information Review: Allergies, Home Meds and Significant Events have been Reviewed and Verified with Patient/Familyyes Allergy, Intolerance, Adverse Event: Allergies: Demerol HCl: Drug, Psychosis (Moderate), Active codeine: Drug, Psychosis (Moderate), Active morphine: Drug, Psychosis, Active Doxycycline Hyclate: Drug, Unknown, Active Augmentin: Drug, Unknown, Active Electronic Signatures: Christopher Caceres (DEMI) (Signed 22-Mar-2023 11:50) Authored: Initial Info, General Health, Health Mgmt, Relationship/Environ, Tobacco Use, Pre-op Checklist, Additional Information Garland Rivas) (Signed 19-Mar-2023 13:07) Authored: Initial Info, Additional Information Last Updated: 22-Mar-2023 11:50 by Christopher Caceres) Normal [facility] CBC AND DIFFERENTIALon 03-17 % AUTOMATED IMMATURE GRAN 0.4 % Normal 0.0 - 0.9 [facility] Comment on above: Result Comment: Coni ture Granulocyte Count (IG) includes promyelocytes, myelocytes and metamyelocytes but does not include bands. Percent differential counts (%) should be interpreted in the context of the absolute cell counts (cells/L). Performed By: #### C BCDF ####[id number] [place] [address] Basophils (Bld) [#/Vol] 0.05 10*3/uL Normal 0.00 - 0.10 [facility] Comment on above: Performed By: #### C BCDF ####[facility] [place] [address] Basophils/100 WBC (Bld) 0.6 % Normal 0.0 - 2.0 [facility] Comment on above: Performed By: #### C BCDF ####[address] [address] Eosinophils (Bld) [#/Vol] 0.23 10*3/uL Normal 0.00 - 0.70 [facility] Comment on above: Performed By: #### C BCDF ####[address] [address] Eosinophils/100 WBC (Bld) 2.9 % Normal 0.0 - 6.0 [facility] Comment on above: Performed By: #### C BCDF ####[address] [address] Erythrocyte distribution width (RBC) [Ratio] 12.3 % Normal 11.5 - 14.5 [facility] Comment on above: Performed By: #### C BCDF ####[address] [address] Hematocrit (Bld) [Volume fraction] 40.1 % Normal 36.0 - 46.0 [facility] Comment on above: Performed By: #### C BCDF ####[address] [address] Hemoglobin (Bld) [Mass/Vol] 13.5 g/dL Normal 12.0 - 16.0 [facility] Comment on above: Performed By: #### C BCDF ####[address] [address] Lymphocytes (Bld) [#/Vol] 3.98 10*3/uL Normal 1.20 - 4.80 [facility] Comment on above: Performed By: #### C BCDF ####[address] [address] Lymphocytes/100 WBC (Bld) 50.5 % Normal 13.0 - 44.0 [facility] Comment on above: Performed By: #### C BCDF ####[address] [address] MCHC (RBC) [Mass/Vol] 33.7 g/dL Normal 32.0 - 36.0 [facility] Comment on above: Performed By: #### C BCDF ####[facility] [place] [address], [place] [address] MCV (RBC) [Entitic vol] 92 fL Normal 80 - 100 [facility] Comment on above: Performed By: #### C BCDF ####[facility] [place], [place] [address], [place] [address] Monocytes (Bld) [#/Vol] 0.53 10*3/uL Normal 0.10 - 1.00 [facility] Comment on above: Performed By: #### C BCDF ####[address] [place] [address] Monocytes/100 WBC (Bld) 6.7 % Normal 2.0 - 10.0 [facility] Comment on above: Performed By: #### C BCDF ####[address] [place] [address] Neutrophils (Bld) [#/Vol] 3.06 10*3/uL Normal 1.20 - 7.70 [facility] Comment on above: Performed By: #### C BCDF ####[address] [place] [address] Neutrophils/100 WBC (Bld) 38.9 % Normal 40.0 - 80.0 [facility] Comment on above: Performed By: #### C BCDF ####[address] [place] [address] NUCLEATED RBC 0.0 /100 WBC Normal 0.0 - 0.0 [facility] Comment on above: Performed By: #### C BCDF ####[address] [place] [address] Platelets (Bld) [#/Vol] 297 10*3/uL Normal 150 - 450 [facility] Comment on above: Performed By: #### C BCDF ####[address] [place] [address] RBC 4.36 x10E12/L Normal 4.00 - 5.20 [facility] Comment on above: Performed By: #### C BCDF ####[address] [place] [address] WBC (Bld) [#/Vol] 7.9 10*3/uL Normal 4.4 - 11.3 [facility] Comment on above: Performed By: #### C BCDF ####[facility] [place] [address] ALBUMIN, URINE SPOTon 2022 ALBUMIN,URINE <7.0 Normal Not Established [facility] Comment on above: Performed By: #### C OVSC #### [facility] [address] [place] [address] ALBUMIN/CREAT RATIO SEE COMMENT Normal 0.0 - 30.0 [facility] Comment on above: Result Comment: One or more analytes used in this calculation is outside of the analytical measurement range. Calculation cannot be performed. Performed By: #### C OVSC #### [facility] [address] [place] [address] CREATININE,URINE 56.3 mg/dL Normal 20.0 - 320.0 [facility] Comment on above: Performed By: #### C OVSC #### [facility] [address] [place] [address] ALBUMIN, URINE SPOTon 2022 ALBUMIN,URINE Canceled Normal [facility] Comment on above: Order Comment: TEST ALBUMIN, URINE SPOT WAS CANCELLED, 02/02/2023 10:27 not collected. Performed By: #### A LBSP #### [facility] [address] [place] [address] ALBUMIN/CREAT RATIO Canceled Normal [facility] Comment on above: Order Comment: TEST ALBUMIN, URINE SPOT WAS CANCELLED, 02/02/2023 10:27 not collected. Performed By: #### A LBSP #### [facility] [address] [place] [address] CREATININE,URINE Canceled Normal [facility] Comment on above: Order Comment: TEST ALBUMIN, URINE SPOT WAS CANCELLED, 02/02/2023 10:27 not collected. Performed By: #### A LBSP #### [facility] [address] [place] [address] COMPREHENSIVE PANELon 2022 Albumin [Mass/Vol] 4.6 g/dL Normal 3.4 - 5.0 [facility] Comment on above: Performed By: #### C MP #### [address] [place] [address] ALP [Catalytic activity/Vol] 42 U/L Normal 33 - 136 [facility] Comment on above: Performed By: #### C MP #### [address] [place] [address] ALT [Catalytic activity/Vol] 28 U/L Normal 7 - 45 [facility] Comment on above: Result Comment: Shaista ents treated with Sulfasalazine may generate falsely decreased results for ALT. Performed By: #### C MP #### [address] [place] [address] Anion gap [Moles/Vol] 13 mmol/L Normal 10 - 20 [facility] Comment on above: Performed By: #### C MP #### [address] [place] [address] AST [Catalytic activity/Vol] 20 U/L Normal 9 - 39 [facility] Comment on above: Performed By: #### C MP #### [address] [place] [address] Bilirubin [Mass/Vol] 0.3 mg/dL Normal 0.0 - 1.2 [facility] Comment on above: Performed By: #### C MP #### [address] [place] [address] Calcium [Mass/Vol] 10.0 mg/dL Normal 8.6 - 10.3 [facility] Comment on above: Performed By: #### C MP #### [address] [place] [address] Chloride [Moles/Vol] 103 mmol/L Normal 98 - 107 [facility] Comment on above: Performed By: #### C MP #### [address] [place] [address] Creatinine [Mass/Vol] 1.25 mg/dL High 0.50 - 1.05 [facility] Comment on above: Performed By: #### C MP #### [address] [address] GFR/1.73 sq M.predicted among non-blacks MDRD (S/P/Bld) [Vol rate/Area] 49 mL/min/{1.73_m2} Abnormal >90 [facility] Comment on above: Result Comment: CALC ULATIONS OF ESTIMATED GFR ARE PERFORMED USING THE 2020 CKD-EPI STUDY REFIT EQUATION WITHOUT THE RACE VARIABLE FOR THE IDMS-TRACEABLE CREATININE METHODS. https://jasn.asnjournals.org/content/early//ASN.3458533 988 Performed By: #### C MP #### [address] [place] [address] Glucose [Mass/Vol] 76 mg/dL Normal 74 - 99 [facility] Comment on above: Performed By: #### C MP #### [address] [place] [address] HCO3 (Bld) [Moles/Vol] 28 mmol/L Normal 21 - 32 [facility] Comment on above: Performed By: #### C MP #### [address] [place] [address] Potassium [Moles/Vol] 3.9 mmol/L Normal 3.5 - 5.3 [facility] Comment on above: Performed By: #### C MP #### [address] [place] [address] Protein [Mass/Vol] 7.4 g/dL Normal 6.4 - 8.2 [facility] Comment on above: Performed By: #### C MP #### [address] [place] [address] Sodium [Moles/Vol] 140 mmol/L Normal 136 - 145 [facility] Comment on above: Performed By: #### C MP #### [address] [place] [address] Urea nitrogen [Mass/Vol] 24 mg/dL High 6 - 23 [facility] Comment on above: Performed By: #### C MP #### [address] [place] [address] HEMOGLOBIN A1Con 02-02-2023 Glucose [Mass/Vol] 137 mg/dL Normal [facility] Comment on above: Performed By: #### H BA1E #### [facility] [address] [place] [address] HbA1c (Bld) [Mass fraction] 6.4 % Abnormal [facility] Comment on above: Result Comment: Diag nosis of Diabetes-Adults Non-Diabetic: < or = 5.6% Increased risk for developing diabetes: 5.7-6.4% Diagnostic of diabetes: > or = 6.5% . Monitoring of Diabetes Age (y) Therapeutic Goal (%) Adults: >18 <7.0 Pediatrics: 13-18 <7.5 7-12 <8.0 0- 6 7.5-8.5 [place] [employer]. Diabetes Care 33(S1), Nov 2009. Performed By: #### H BA1E #### [facility] [address] [place] [address] TSHon 02-02-2023 TSH Qn 1.56 m[IU]/L Normal 0.44 - 3.98 [facility] Comment on above: Result Comment: TSH testing is performed using different testing methodology at [facility] than at other [facility]. Direct result comparisons should only be made within the same method. Performed By: #### T SH2 #### [facility] [address] [place] [address] VITAMIN D, 25-HYDROXYon 01-14 VITAMIN D, 25-HYDROXY 49 ng/mL Normal [facility] Comment on above: Result Comment: . DEFICIENCY: < 20 NG/ML INSUFFICIENCY: 20-29 NG/ML SUFFICIENCY: 30-100 NG/ML THIS ASSAY ACCURATELY QUANTIFIES THE SUM OF VITAMIN D3, 25-HYDROXY AND VIT D2,25-HYDROXY. Performed By: #### C OVSC #### [facility] [address] [place] [address] GLUCOSE-POCTon 01-08-2023 Glucose [Mass/Vol] 92 mg/dL Normal 74 - 99 [facility] Comment on above: Performed By: #### G JONATHAN ####[facility] [place] [address] Operative Reports - Rickreallon 01-08-2023 Operative Reports - Rickreall SURGEON: Fang Rodriguez DPM SURGERY SCHEDULER: Buzz Dexter, PGY-3. PREOPERATIVE DIAGNOSES: 1. Hardware failure, right foot. 2. Equinus, right foot. 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 5. Ankle arthritis with tibial osteophyte. POSTOPERATIVE DIAGNOSES: 1. Hardware failure, right foot. 2. Equinus, right foot. 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 5. Ankle arthritis with tibial osteophyte. PROCEDURES: 1. Hardware removal, right foot in 2 locations. 2. Gastroc recession, right. 3. Subtalar joint arthrodesis. 4. Midfoot arthrodesis. 5. Partial excision of the tibia. ANESTHESIA: General with 20 mL 0.5% Marcaine plain ankle block. HEMOSTASIS: Maintained on field for portion of procedure. TOURNIQUET: Utilized for a total of 2 hours at 250 mmHg. ESTIMATED BLOOD LOSS: Less than 100 mL. MATERIALS USED: [place] Vitoss and BIO4 bone graft substitute augment Floyd dorsal 3.5 locking plate. 7-0 and 5-0 cannulated headless compression screws. TissueMend and Kerecis powder graft, nylon suture. INDICATIONS: This 62-year-old female, who had Charcot of the right foot. She also has nonunions at multiple locations and hardware complications. She is developing ankle stiffness with anterior tibial osteophyte as well. She has failed conservative treatment thus far. Her Charcot has calmed down to the point where she has no more erythema or edema of the foot or ankle. At this time she wished to undergo surgical intervention for the correction of deformities. All the risks and complications associated with the procedure as well as postop course have been explained to the patient in full detail with no further questions or concerns at this time. No guarantees given to the outcome of procedure. PROCEDURE IN DETAIL: The patient was brought into the operating room, placed on table in supine position. The right lower extremity was the scrubbed, prepped, and draped in usual aseptic manner. Procedure #1 hardware removal: The subtalar joint's nail was accessed through a calcaneal incision at the apex as well as laterally to remove the cross screw. After the cross screw was removed, a subtalar incision was made as well to gain access to this nail and it was backed out in its entirety. This bone void was flushed and filled with augment bone graft substitute. For the dorsal midfoot, prior incision was utilized to access the dorsal midfoot locking plate. There were multiple broken screws present. The plate was intact and removed in its entirety. The screws that were hole removed entirely. The broken ones were left in place to the distal aspect was not cored out. There was significant amount of scar tissue with dissection of all areas. Procedure #2 gastroc recession: Medial approach was taken access to the gastroc aponeurosis. Standard incision location was made. A tissue protector was inserted and the blade was utilized to transect the aponeurosis. She had approximately 90 degrees dorsiflexion preop and had approximately 10 degrees past 90 postop. Incision was flushed and closed with nylon suture. Procedure #3 subtalar joint fusion: Lateral approach was taken to access subtalar joint. Utilizing a combination of subchondral drilling and fish scaling, the joint was prepped after dissection through the scar tissue from the prior incision location. There was good healthy bleeding bone noted. The incision was flushed with sterile saline and packed with multiple bone graft substitute as stated above including the augment BIO4 and Vitoss. This was fixated with a 7-0 headless compression screw. From dorsal to plantar approach, a 5.0 headless compression screw was utilized as well. Good place was confirmed clinically and fluoroscopically with multiple views. There was no movement upon stressing. Incision was flushed and closed with nylon suture. Procedure #4 midfoot fusion: Dorsal approach was taken to access the midfoot from prior procedure location. After dissection throughout the scar tissue, the anterior tibial tendon was identified, which was previously graft and this was intact. The talonavicular joint was well fused, but navicular cuneiform joint was not fused. There was motion at this location. Unhealthy bone was excised. The joint was then re-prepped utilizing subchondral drilling and fish scaling. The joint was flushed and packed with bone graft substitute as stated above. It was fixated with a dorsal locking plate and confirmed clinically and fluoroscopically to be stable with adequate alignment. Incision was flushed copiously with normal sterile saline. TissueMend was placed over this to help with the tissue closure as well as Kerecis graft substitute. She had a lot of hypertrophic scar tissue from the surgeries as well as her Charcot neuroarthropat (more content not included)... Normal [facility] Order Reconciliationon 01-08 Order Reconciliation Page 1 Discharge Reconciliation Document Reconciliation Type: Discharge requested on behalf of Fang Rodriguez (Physician) done by Fang Rodriguez (DPM) Discharge - Reconciliation: 08-Jan-2023 12:56 by: Fang Rodriguez (DPPawan) Home Medications EnteredHOME MEDICATIONS AT DISCHARGE DateReconciliation Comment/ Additional Information albuterol 90 mcg/inh inhalation aerosol 1 katie inhalation prn 04-Dec-2021 09:23 albuterol 90 mcg/inh inhalation aerosol 1 katie inhalation prn 04-Dec-2021 09:23 albuterol 90 mcg/inh inhalation aerosol is continued as albuterol 90 mcg/inh inhalation aerosol biotin 5000 mcg oral tablet, disintegrating 1 cap(s) oral twice a day 01-Jun-2022 11:18 biotin 5000 mcg oral tablet, disintegrating 1 cap(s) oral twice a day 01-Jun-2022 11:18 biotin 5000 mcg oral tablet, disintegrating is continued as biotin 5000 mcg oral tablet, disintegrating cinnamon 500 mg oral capsule 2 cap(s) oral twice a day 01-Jun-2022 11:18 cinnamon 500 mg oral capsule 2 cap(s) oral twice a day 01-Jun-2022 11:18 cinnamon 500 mg oral capsule is continued as cinnamon 500 mg oral capsule fenofibrate 48 mg oral tablet 1 cap(s) oral once a day 04-Dec-2021 09:19 fenofibrate 48 mg oral tablet 1 cap(s) oral once a day 04-Dec-2021 09:19 fenofibrate 48 mg oral tablet is continued as fenofibrate 48 mg oral tablet FLUoxetine 10 mg oral capsule 1 tab(s) oral once a day 01-Jun-2022 12:00 FLUoxetine 10 mg oral capsule 1 tab(s) oral once a day 01-Jun-2022 12:00 FLUoxetine 10 mg oral capsule is continued as FLUoxetine 10 mg oral capsule gabapentin 800 mg oral tablet 1 cap(s) oral 4 times a day 04-Dec-2021 09:16 gabapentin 800 mg oral tablet 1 cap(s) oral 4 times a day 04-Dec-2021 09:16 gabapentin 800 mg oral tablet is continued as gabapentin 800 mg oral tablet garlic - oral tablet 1 tab(s) oral once a day 01-Jun-2022 11:22 garlic - oral tablet 1 tab(s) oral once a day 01-Jun-2022 11:22 garlic - oral tablet is continued as garlic - oral tablet HumaLOG 100 units/mL subcutaneous solution 20 intl units subcutaneous 3 times a day (with meals) 01-Jun-2022 11:20 HumaLOG 100 units/mL subcutaneous solution 20 intl units subcutaneous 3 times a day (with meals) 01-Jun-2022 11:20 HumaLOG 100 units/mL subcutaneous solution is continued as HumaLOG 100 units/mL subcutaneous solution hydroCHLOROthiazide 25 mg oral tablet 1 cap(s) oral once a day 04-Dec-2021 09:17 hydroCHLOROthiazide 25 mg oral tablet 1 cap(s) oral once a day 04-Dec-2021 09:17 hydroCHLOROthiazide 25 mg oral tablet is continued as hydroCHLOROthiazide 25 mg oral tablet Lantus Solostar Pen 60 units subcutaneous once a day at bedtime 01-Jun-2022 11:20 Lantus Solostar Pen 60 units subcutaneous once a day at bedtime 01-Jun-2022 11:20 Lantus Solostar Pen is continued as Lantus Solostar Pen levothyroxine 100 mcg (0.1 mg) oral tablet 1 cap(s) oral once a day 04-Dec-2021 09:18 levothyroxine 100 mcg (0.1 mg) oral tablet 1 cap(s) oral once a day 04-Dec-2021 09:18 levothyroxine 100 mcg (0.1 mg) oral tablet is continued as levothyroxine 100 mcg (0.1 mg) oral tablet metFORMIN 1000 mg oral tablet 1 cap(s) oral twice a day 10-Aug-2022 14:21 metFORMIN 1000 mg oral tablet 1 cap(s) oral twice a day 10-Aug-2022 14:21 metFORMIN 1000 mg oral tablet is continued as metFORMIN 1000 mg oral tablet multivitamin Multiple Vitamins oral tablet 1 tab(s) oral once a day 01-Jun-2022 11:22 multivitamin Multiple Vitamins oral tablet 1 tab(s) oral once a day 01-Jun-2022 11:22 multivitamin Multiple Vitamins oral tablet is continued as multivitamin Multiple Vitamins oral tablet Belgrade-3 1000 mg oral capsule 1 cap(s) oral twice a day 01-Jun-2022 11:21 Belgrade-3 1000 mg oral capsule 1 cap(s) oral twice a day 01-Jun-2022 11:21 Belgrade-3 1000 mg oral capsule is continued as Belgrade-3 1000 mg oral capsule turmeric 500 mg oral capsule 1 tab(s) oral twice a day 01-Jun-2022 11:22 turmeric 500 mg oral capsule 1 tab(s) oral twice a day 01-Jun-2022 11:22 turmeric 500 mg oral capsule is continued as turmeric 500 mg oral capsule Ventolin HFA 90 mcg/inh inhalation aerosol 1 katie inhalation prn 04-Dec-2021 09:23 Ventolin HFA 90 mcg/inh inhalation aerosol 1 katie inhalation prn 04-Dec-2021 09:23 Ventolin HFA 90 mcg/inh inhalation aerosol is continued as Ventolin HFA 90 mcg/inh inhalation aerosol Vitamin B12 250 mcg oral tablet 1 cap(s) oral once a day 04-Dec-2021 09:20 Vitamin B12 250 mcg oral tablet 1 cap(s) oral once a day 04-Dec-2021 09:20 Vitamin B12 250 mcg oral tablet is continued as Vitamin B12 250 mcg oral tablet Vitamin B6 100 mg oral tablet 1 tab(s) oral once a day 01-Jun-2022 11:23 Vitamin B6 100 mg oral tablet 1 tab(s) oral once a day 01-Jun-2022 11:23 Vitamin B6 100 mg oral tablet is continued as Vitamin B6 100 mg oral tablet zolpidem 10 mg oral tablet 1 cap(s) oral once a day 04-Dec-2021 09:18 zolpidem 10 mg oral tablet 1 cap(s) oral once a day 04-Dec-2021 09:18 zolpidem 10 mg oral tablet is (more content not included)... Normal [facility] Surgical Pathology Depar tmenton 01-08-2023 [facility] Surgical Pathology Department Name MARIE SEXTON Pathologist: NAKUL CAMILO MD Date of Procedure: 01/08/2023 Date Received: 01/08/2023 Date Reported 01/11/2023 Submitting Physician: FANG RODRIGUEZ DPM Location: [facility] Other External # FINAL DIAGNOSIS A. ORTHOPEDIC HARDWARE, RIGHT FOOT, REMOVAL: --ORTHOPEDIC HARDWARE (METALLIC PLATE, RODS, AND SCREWS; GROSS DIAGNOSIS) Electronically Signed Out By NAKUL CAMILO MD/STS By the signature on this report, the individual or group listed as making the Final Interpretation/Diagnosi s certifies that they have reviewed this case. Diagnostic interpretation performed at [place] [address] Clinical History: Contracture of joint of both ankles; Charcot's joint of right ankle or foot Specimens Submitted As: A: RIGHT FOOT EXPLANTED HARDWARE Gross Description: Received in formalin, labeled with the patient's name and hospital number and removed hardware right foot , are multiple cylindrical canales metal threaded screws ranging in size from 1.0-7.5 cm in greatest dimension. The largest piece is inscribed with popexpertAPE REF [id number] LOT [id number] 07MM X 80M. Additionally received is a blue-canales metal U-shaped piece of hardware with the inscription of [id number]. Soft tissue is not received the specimen. A photograph is been taken. The specimen is for gross examination only. MJR mjr/01/09/2023 [facility] Department of Pathology [address] [place] [address] Normal [facility] Comment on above: Performed By: #### C OVSC #### [address] [place] [address] Patient Profile - Preop v3on 01-07-2023 Patient Profile - Preop v3 Patient Profile - Preop: Initial Info: Patient DemographicsName: DARSHAN April Date: 1960 Address: [address] [place] [address] Date/Time [id number] 12:31 Primary Phone [phone] Call Attemptedattempt 1 Instructions Giventime to arrive Prep Instructions Reviewedyes Pt is instructed to arrive at 8:45 for 10:00 surgery. Encouraged to review pre-op instruction sheet and remain NPO at midnight. Understanding is verbalized. Prep Typepre-op Instructed to Have No Fluids Aftermidnight How to be AddressedJUNE Spoken Language PreferredEnglish Source of Informationpatient Stated Reason for AdmissionRIGHT GASTROCNEMIUS RECESSION/ SUBTALAR JOINT MIDFOOT FUSION/ TIBIA PARTIAL EXCISION RIGHT FOOT DJO HARDWARE REMOVAL Primary Contact Name and NumberDAUGHTER JENNIFER Limitations on Visitors/Phone Callsnone Medications Brought to Hospitalno General Health: Patient or Family Member Reaction to Anesthesiano previous reaction Blood Avoidance/Restrictionsn one Previous Transfusion Reactionnot applicable Health Mgmt: [facility] Barriers to Managing Healthnone Relationship/Environ: Lives Withalone Living Arrangementshouse Resource/Environmental Concernsnone Anticipated Transition [place] [facility] Anticipated at Transitionnone Tobacco Use: Tobacco Useno Pre-op Checklist: Arrival [id number] Arrival Time08:58 Procedure TypeRIGHT GASTROCNEMIUS RECESSION/ SUBTALAR JOINT & MIDFOOT FUSION/ TIBIA PARTIAL EXCISION WITH C-ARM RIGHT FOOT DJO HARDWARE REMOVAL NPOyes Last Food [id number] 20:30 Last Clear Fluid [id number] 07:45 ID Band On Patientpatient ID (name), allergy, falls risk Consent Signedyes Anesthesia Assessment Completedyes EKG Performedsee results tab Chest X-Ray Performednot ordered Preop Antibioticssent to OR Beta-vita CommentN/A COVID 19 Results in Last 7 daysN/A Glucose Svjoyr24 Type and Screen Resultedn/a HCG Urine TestN/A Chlorhexadine Bath Givencompleted at home Nasal Antiseptic Appliednot applicable Soap and Water Bath the Night Before Surgeryyes Hair Washed with Shampooyes Bowel Prepno Surgical Site Infection Preventionyes Pain Scales and Managementyes Additional Information: Information Review: Allergies, Home Meds and Significant Events have been Reviewed and Verified with Patient/Familyyes Allergy, Intolerance, Adverse Event: Allergies: Demerol HCl: Drug, Psychosis (Moderate), Active codeine: Drug, Psychosis (Moderate), Active morphine: Drug, Psychosis, Active Doxycycline Hyclate: Drug, Unknown, Active Augmentin: Drug, Unknown, Active Electronic Signatures: Christopher Caceres) (Signed 08-Jan-2023 09:18) Authored: Initial Info, General Health, Health Mgmt, Relationship/Environ, Tobacco Use, Pre-op Checklist, Additional Information Britt Ryder (RN) (Signed 07-Jan-2023 12:32) Authored: Initial Info, Additional Information Last Updated: 08-Jan-2023 09:18 by Christopher Caceres (RN) Normal [facility] BASIC METABOLIC PANELon 02-2 Anion gap [Moles/Vol] 11 mmol/L Normal 10 - 20 [facility] Comment on above: Performed By: #### B MP #### [facility] [address] [place] [address] Calcium [Mass/Vol] 9.9 mg/dL Normal 8.6 - 10.3 [facility] Comment on above: Performed By: #### B MP #### [address] [address] Chloride [Moles/Vol] 103 mmol/L Normal 98 - 107 [facility] Comment on above: Performed By: #### B MP #### [address] [address] Creatinine [Mass/Vol] 1.01 mg/dL Normal 0.50 - 1.05 [facility] Comment on above: Performed By: #### B MP #### [facility] [address] [place] [address] GFR/1.73 sq M.predicted among non-blacks MDRD (S/P/Bld) [Vol rate/Area] 63 mL/min/{1.73_m2} Normal >90 [facility] Comment on above: Result Comment: CALC ULATIONS OF ESTIMATED GFR ARE PERFORMED USING THE 2020 CKD-EPI STUDY REFIT EQUATION WITHOUT THE RACE VARIABLE FOR THE IDMS-TRACEABLE CREATININE METHODS. https://jasn.asnjournals.org/content/early/ASN.7112601 988 Performed By: #### B MP #### [facility] [address] [facility] [place] [address] Glucose [Mass/Vol] 120 mg/dL High 74 - 99 [facility] Comment on above: Performed By: #### B MP #### [facility] [address] [place] [address] HCO3 (Bld) [Moles/Vol] 30 mmol/L Normal 21 - 32 [facility] Comment on above: Performed By: #### B MP #### [facility] [address] [place] [address] Potassium [Moles/Vol] 4.7 mmol/L Normal 3.5 - 5.3 [facility] Comment on above: Performed By: #### B MP #### [facility] [address] [place] [address] Sodium [Moles/Vol] 139 mmol/L Normal 136 - 145 [facility] Comment on above: Performed By: #### B MP #### [address] [address] Urea nitrogen [Mass/Vol] 23 mg/dL Normal 6 - 23 [facility] Comment on above: Performed By: #### B MP #### [address] [address] CBC AND DIFFERENTIALon 01-05 % AUTOMATED IMMATURE GRAN 0.2 % Normal 0.0 - 0.9 [facility] Comment on above: Result Comment: Coni ture Granulocyte Count (IG) includes promyelocytes, myelocytes and metamyelocytes but does not include bands. Percent differential counts (%) should be interpreted in the context of the absolute cell counts (cells/L). Performed By: #### C BCDF ####[facility] [place] [address] Basophils (Bld) [#/Vol] 0.05 10*3/uL Normal 0.00 - 0.10 [facility] Comment on above: Performed By: #### C BCDF ####[facility] [place] [address] Basophils/100 WBC (Bld) 0.6 % Normal 0.0 - 2.0 [facility] Comment on above: Performed By: #### C BCDF ####[facility] [place] [address] Eosinophils (Bld) [#/Vol] 0.24 10*3/uL Normal 0.00 - 0.70 [facility] Comment on above: Performed By: #### C BCDF ####[address] [address] Eosinophils/100 WBC (Bld) 2.8 % Normal 0.0 - 6.0 [facility] Comment on above: Performed By: #### C BCDF ####[address] [address] Erythrocyte distribution width (RBC) [Ratio] 12.8 % Normal 11.5 - 14.5 [facility] Comment on above: Performed By: #### C BCDF ####[address] [address] Hematocrit (Bld) [Volume fraction] 41.1 % Normal 36.0 - 46.0 [facility] Comment on above: Performed By: #### C BCDF ####[address] [address] Hemoglobin (Bld) [Mass/Vol] 13.8 g/dL Normal 12.0 - 16.0 [facility] Comment on above: Performed By: #### C BCDF ####[address] [address] Lymphocytes (Bld) [#/Vol] 3.56 10*3/uL Normal 1.20 - 4.80 [facility] Comment on above: Performed By: #### C BCDF ####[address] [address] Lymphocytes/100 WBC (Bld) 41.4 % Normal 13.0 - 44.0 [facility] Comment on above: Performed By: #### C BCDF ####[address] [address] MCHC (RBC) [Mass/Vol] 33.6 g/dL Normal 32.0 - 36.0 [facility] Comment on above: Performed By: #### C BCDF ####[address] [address] MCV (RBC) [Entitic vol] 90 fL Normal 80 - 100 [facility] Comment on above: Performed By: #### C BCDF ####[address] [address] Monocytes (Bld) [#/Vol] 0.61 10*3/uL Normal 0.10 - 1.00 [facility] Comment on above: Performed By: #### C BCDF ####[address] [address] Monocytes/100 WBC (Bld) 7.1 % Normal 2.0 - 10.0 [facility] Comment on above: Performed By: #### C BCDF ####[address] [address] Neutrophils (Bld) [#/Vol] 4.11 10*3/uL Normal 1.20 - 7.70 [facility] Comment on above: Performed By: #### C BCDF ####[address] [address] Neutrophils/100 WBC (Bld) 47.9 % Normal 40.0 - 80.0 [facility] Comment on above: Performed By: #### C BCDF ####[address] [address] NUCLEATED RBC 0.0 /100 WBC Normal 0.0 - 0.0 [facility] Comment on above: Performed By: #### C BCDF ####[address] [address] Platelets (Bld) [#/Vol] 287 10*3/uL Normal 150 - 450 [facility] Comment on above: Performed By: #### C BCDF ####[address] [address] RBC 4.58 x10E12/L Normal 4.00 - 5.20 [facility] Comment on above: Performed By: #### C BCDF ####[address] [address] WBC (Bld) [#/Vol] 8.6 10*3/uL Normal 4.4 - 11.3 [facility] Comment on above: Performed By: #### C BCDF ####[address] [address] Electrocardiogram 12 Leadon 01-05-2023 Electrocardiogram 12 Lead Ventricular Rate 69 Atrial Rate 69 P-R Interval 144 QRS Duration 70 Q-T Interval 396 QTC Calculation(Bazett) 424 P [place] 60 R [place] 41 T [place] 64 QRS Count 12 Q Onset 220 P Onset 148 P Offset 201 T Offset 418 QTC Fredericia 415 Diagnosis Class Normal Diagnosis Normal sinus rhythm Normal ECG When compared with ECG of 01-JUN-2022 11:38, No significant change was found Confirmed by Javed Bravo ([id number]) on 01/08/2023 3:39:12 PM Normal [facility] GLUCOSE-POCTon 08-21-2022 Glucose [Mass/Vol] 82 mg/dL Normal 74 - 99 [facility] Comment on above: Performed By: #### G JONATHAN #### [facility] [address] [place] [address] Operative Reports - [facility] 08-21-2022 Operative Reports - [place] SURGEON: Fang Rodriguez DPM SURGERY SCHEDULER: Darin Dawn, PGY-2. SECOND WINK CUTTER OPERATOR: Sirena Oconnor, PGY-3. PREOPERATIVE DIAGNOSES: 1. Anterior tibial tendon rupture from prior repair. 2. Hardware malfunction, right foot. 3. Right 5th hammertoe. 4. Wound, left foot. POSTOPERATIVE DIAGNOSES: 1. Anterior tibial tendon rupture from prior repair. 2. Hardware malfunction, right foot. 3. Right 5th hammertoe. 4. Wound, left foot. PROCEDURE: 1. Hardware removal, right foot. 2. Anterior tibial tendon repair, right foot. 3. Tenotomy and PIPJ capsulotomy, right 5th toe. 4. Wound debridement with graft application, left foot. ANESTHESIA: General with 20 mL 0.5% Marcaine plain and 1% lidocaine plain local field blocks. HEMOSTASIS: A thigh tourniquet was utilized at 300 mmHg for the majority of procedure on the right, none on the left. ESTIMATED BLOOD LOSS: Less than 100 mL. MATERIALS USED: Cadaveric tendon, FiberWire, FiberLoop, prolene suture, Steri Shield and Stravix graft on the left foot. INDICATIONS: This is a 62-year-old female who has had multiple surgeries recently. She fell on Wednesday after her most recent procedure and she pulled the anterior tibial tendon and anchor out of the cuneiform. The tendon ruptured and retracted proximally and she is here for revision. She also wished to have her 5th hammertoe corrected as well as the wound debridement or graft application on her left side at this time. All the risks and complications associated with the procedure as well as postop course have been explained to the patient in full detail with no further questions or concerns at this time. No guarantees have been given to the outcome of procedure. PROCEDURE IN DETAIL: The patient was brought into the operating room, placed on table in supine position. Bilateral lower extremities were then scrubbed, prepped, and draped in usual aseptic manner. 1. Hardware removal: Dorsal approach was taken to access the failed anchor which follow the bone. The anchor was identified and still attached to the Achilles tendon, however, was fully out of the bone with more vacated hole on the bone. This was cut and excised from the field and all the fiber wire was removed from the tendon to that location. 2. Anterior tibial tendon repair: The distal 3-4 cm of the anterior tibial tendon was shredded hypertrophic and diseased was not adequate tissue, suture would not hold. The tendon was followed more proximally and freed from underneath the retinaculum until there was healthy tendon visible. A Krackow type suture was then placed after resecting the diseased distal portion. This suture was then hand tied to Krackow type suture through the cadaveric tendon. The cataract tendon was then whipstitched and carried through the medial cuneiform and anchored with clips tenodesis anchor. There was good stability noted upon stressing the tendon. The foot was held in dorsiflexion, everted position while placed. The incision was flushed with copious amounts of sterile saline. The tendon was wrapped in Steri Shield amniotic graft and the incisions closed with Prolene suture. 3. Fifth toe tenotomy capsulotomy. A 62 blade was utilized for plantar incision. The FDL tendon was tenotomized. There was still contracture of the toe in the joint at this time. Upon stressing the PIPJ capsule was then cut as well and then the toe was stressed now sat more rectus. This incision was dressed with Betadine-soaked gauze. 4. Left foot graft application: There is a full-thickness ulceration of the left foot which has been present over 4 weeks and has failed conservative care with local wound care at this time. The preop measurements were 3 x 4 x 1 mm after excisional debridement down to including the level of subcutaneous tissue. The post debridements were 4 x 6 x 2 mm. The graft was then applied stated above. This was secured with Adaptic and Steri-Strips, covered with gauze, Kerlix, and Yuan wrap. 5. The right foot was dressed with Betadine-soaked Adaptic, gauze, and a slightly compressive short-leg [id number] cast was then applied. The foot was held in dorsiflexed position at this time. The patient was then transferred to the PACU with vital signs stable and vascular status intact. COMPLICATIONS: Significant disease with tendon requiring cadaveric tendon to be used. SPECIMEN: None. Fang Rodriguez DPM EST EST DICTATION NUMBER: [id number] INTERNAL JOB NUMBER: [id number] Electronic Signatures: Fang Rodriguez) (Signed on 28-Aug-2022 08:37) Authored Unsigned, Draft (SYS GENERATED) (Entered on 22-Aug-2022 21:23) Entered Last Updated: 28-Aug-2022 08:37 by Fang Rodriguez) [facility] Order Reconciliationon 08-21 Order Reconciliation Page 1 Discharge Reconciliation Document Reconciliation Type: Discharge requested on behalf of Fang Rodriguez (Physician) done by Fang Rodriguez (FLASH) Discharge - Partial Reconciliation: 21-Aug-2022 11:23 by: Fang Rodriguez (FLASH) Discharge - Reconciliation: 21-Aug-2022 15:13 by: Fang Rodriguez) Home Medications EnteredHOME MEDICATIONS AT DISCHARGE DateReconciliation Comment/ Additional Information albuterol 90 mcg/inh inhalation aerosol 1 katie inhalation prn 04-Dec-2021 09:23 albuterol 90 mcg/inh inhalation aerosol 1 katie inhalation prn 04-Dec-2021 09:23 albuterol 90 mcg/inh inhalation aerosol is continued as albuterol 90 mcg/inh inhalation aerosol biotin 5000 mcg oral tablet, disintegrating 1 cap(s) oral twice a day 01-Jun-2022 11:18 biotin 5000 mcg oral tablet, disintegrating 1 cap(s) oral twice a day 01-Jun-2022 11:18 biotin 5000 mcg oral tablet, disintegrating is continued as biotin 5000 mcg oral tablet, disintegrating cinnamon 500 mg oral capsule 2 cap(s) oral twice a day 01-Jun-2022 11:18 cinnamon 500 mg oral capsule 2 cap(s) oral twice a day 01-Jun-2022 11:18 cinnamon 500 mg oral capsule is continued as cinnamon 500 mg oral capsule fenofibrate 48 mg oral tablet 1 cap(s) oral once a day 04-Dec-2021 09:19 fenofibrate 48 mg oral tablet 1 cap(s) oral once a day 04-Dec-2021 09:19 fenofibrate 48 mg oral tablet is continued as fenofibrate 48 mg oral tablet FLUoxetine 10 mg oral capsule 1 tab(s) oral once a day 01-Jun-2022 12:00 FLUoxetine 10 mg oral capsule 1 tab(s) oral once a day 01-Jun-2022 12:00 FLUoxetine 10 mg oral capsule is continued as FLUoxetine 10 mg oral capsule gabapentin 800 mg oral tablet 1 cap(s) oral 4 times a day 04-Dec-2021 09:16 gabapentin 800 mg oral tablet 1 cap(s) oral 4 times a day 04-Dec-2021 09:16 gabapentin 800 mg oral tablet is continued as gabapentin 800 mg oral tablet garlic - oral tablet 1 tab(s) oral once a day 01-Jun-2022 11:22 garlic - oral tablet 1 tab(s) oral once a day 01-Jun-2022 11:22 garlic - oral tablet is continued as garlic - oral tablet HumaLOG 100 units/mL subcutaneous solution 20 intl units subcutaneous 3 times a day (with meals) 01-Jun-2022 11:20 HumaLOG 100 units/mL subcutaneous solution 20 intl units subcutaneous 3 times a day (with meals) 01-Jun-2022 11:20 HumaLOG 100 units/mL subcutaneous solution is continued as HumaLOG 100 units/mL subcutaneous solution hydroCHLOROthiazide 25 mg oral tablet 1 cap(s) oral once a day 04-Dec-2021 09:17 hydroCHLOROthiazide 25 mg oral tablet 1 cap(s) oral once a day 04-Dec-2021 09:17 hydroCHLOROthiazide 25 mg oral tablet is continued as hydroCHLOROthiazide 25 mg oral tablet Lantus Solostar Pen 60 units subcutaneous once a day at bedtime 01-Jun-2022 11:20 Lantus Solostar Pen 60 units subcutaneous once a day at bedtime 01-Jun-2022 11:20 Lantus Solostar Pen is continued as Lantus Solostar Pen levothyroxine 100 mcg (0.1 mg) oral tablet 1 cap(s) oral once a day 04-Dec-2021 09:18 levothyroxine 100 mcg (0.1 mg) oral tablet 1 cap(s) oral once a day 04-Dec-2021 09:18 levothyroxine 100 mcg (0.1 mg) oral tablet is continued as levothyroxine 100 mcg (0.1 mg) oral tablet metFORMIN 1000 mg oral tablet 1 cap(s) oral twice a day 10-Aug-2022 14:21 metFORMIN 1000 mg oral tablet 1 cap(s) oral twice a day 10-Aug-2022 14:21 metFORMIN 1000 mg oral tablet is continued as metFORMIN 1000 mg oral tablet multivitamin Multiple Vitamins oral tablet 1 tab(s) oral once a day 01-Jun-2022 11:22 multivitamin Multiple Vitamins oral tablet 1 tab(s) oral once a day 01-Jun-2022 11:22 multivitamin Multiple Vitamins oral tablet is continued as multivitamin Multiple Vitamins oral tablet Belgrade-3 1000 mg oral capsule 1 cap(s) oral twice a day 01-Jun-2022 11:21 Belgrade-3 1000 mg oral capsule 1 cap(s) oral twice a day 01-Jun-2022 11:21 Belgrade-3 1000 mg oral capsule is continued as Belgrade-3 1000 mg oral capsule turmeric 500 mg oral capsule 1 tab(s) oral twice a day 01-Jun-2022 11:22 turmeric 500 mg oral capsule 1 tab(s) oral twice a day 01-Jun-2022 11:22 turmeric 500 mg oral capsule is continued as turmeric 500 mg oral capsule Ventolin HFA 90 mcg/inh inhalation aerosol 1 katie inhalation prn 04-Dec-2021 09:23 Ventolin HFA 90 mcg/inh inhalation aerosol 1 katie inhalation prn 04-Dec-2021 09:23 Ventolin HFA 90 mcg/inh inhalation aerosol is continued as Ventolin HFA 90 mcg/inh inhalation aerosol Vitamin B12 250 mcg oral tablet 1 cap(s) oral once a day 04-Dec-2021 09:20 Vitamin B12 250 mcg oral tablet 1 cap(s) oral once a day 04-Dec-2021 09:20 Vitamin B12 250 mcg oral tablet is continued as Vitamin B12 250 mcg oral tablet Vitamin B6 100 mg oral tablet 1 tab(s) oral once a day 01-Jun-2022 11:23 Vitamin B6 100 mg oral tablet 1 tab(s) oral once a day 01-Jun-2022 11:23 Vitamin B6 100 mg oral tablet is continued as Vitamin B6 100 mg oral tablet zolpidem 10 mg oral tablet 1 cap(s) oral once a day 04-Dec-2021 09:18 zolpidem 10 mg oral (more content not included)... Normal [facility] Patient Profile - Preop v3on 08-20-2022 Patient Profile - Preop v3 Patient Profile - Preop: Initial Info: Patient DemographicsName: DARSHAN April Date: 1960 Address: [address] [place] [address] [place] [address] Date/Time [id number] 11:43 Primary Phone [phone] Call Attemptedattempt 1 Instructions Giventime to arrive, insurance information, center location, 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 (procedure may be cancelled if no local owner operator truck driver), remove jewerly/piercings, appropriate clothing Prep Instructions Reviewedyes Pt instructed to arrive at 10:30 for 12:00 surgery. Reviewed medications and pt is aware to remain NPO at midnight except medications discussed. Understanding is verbalized. Prep Typepre-op Instructed to Have No Fluids Aftermidnight How to be AddressedJune Spoken Language PreferredEnglish Source of Informationpatient Stated Reason for Admissionright ankle tendon lengthening Primary Contact Name and Numbersee face sheet Medications Brought to Hospitalno General Health: Weight in kg88 kilogram(s) Weight in xmj286 pound(s) Weight Methodstated Height in feet6 feet Height in inches0.95 inch(es) Height in cm185.2 centimeter(s) Height Methodstated BMI (kg/m2)25.656 square meter Patient or Family Member Reaction to Anesthesiano previous reaction Blood Avoidance/Restrictionsn one Previous Transfusion Reactionnot applicable Health Mgmt: Symptoms/Conditions Managed at [facility] H&P Barriers to Managing Healthnone Relationship/Environ: Lives Withalone Living Arrangementshouse Resource/Environmental Concernsnone Anticipated Transition [place] [facility] Anticipated at Transitionnone Tobacco Use: Tobacco Useno Additional Information: Information Review: Allergies, Home Meds and Significant Events have been Reviewed and Verified with Patient/Familyyes Allergy, Intolerance, Adverse Event: Allergies: Demerol HCl: Drug, Psychosis (Moderate), Active codeine: Drug, Psychosis (Moderate), Active morphine: Drug, Psychosis, Active Doxycycline Hyclate: Drug, Unknown, Active Augmentin: Drug, Unknown, Active Electronic Signatures: Sabrina Hopkins (RN) (Signed 21-Aug-2022 10:45) Authored: Initial Info, Health Mgmt, Relationship/Environ, Additional Information Britt Ryder (DEMI) (Signed 20-Aug-2022 11:52) Authored: Initial Info, General Health, Tobacco Use, Additional Information Last Updated: 21-Aug-2022 10:45 by Sabrina Hopkins (RN) Normal [facility] CORONAVIRUS 2019, SCREEN ASY MPTOMATICon 08-13-2022 SARS-CoV-2 (COVID-19) RNA KING+probe Ql (Unsp spec) Not detected Normal Not Detected [facility] Comment on above: Result Comment: . This assay is designed to detect the N, ORF1ab and/or S genes of SARS-CoV-2 via nucleic acid amplification. A Negative (NOT DETECTED) result does not preclude 2019-nCoV infection since the adequacy of sample collection and/or low viral burden may result in presence of viral nucleic acids below the clinical sensitivity of this test method. Negative (NOT DETECTED) result should not be used as the sole basis for treatment or other patient management decisions. Rather negative results should be combined with clinical observations, patient history, and epidemiological information to make patient management decisions. Fact sheet for providers: https://www.fda.gov/media/486897/download Fact sheet for patients: https://www.fda.gov/media/642117/download This test has received FDA Emergency Use Authorization (EUA) and has been verified by [facility] ([facility]). This test is only authorized for the duration of time that circumstances exist to justify the authorization of the emergency use of in vitro diagnostic tests for the detection of SARS-CoV-2 virus and/or diagnosis of COVID-19 infection under section 564(b)(1) of the Act, 21 U.S.C. 360bbb-3(b)(1), unless the authorization is terminated or revoked sooner. [facility] is certified under CLIA-88 as qualified to perform high complexity testing. Testing is performed in the [facility] laboratories located at [id number] [place] [address]. Performed By: #### C OVSC #### [facility] [address] [place] [address] Covid 19 Resultson 2 SARS-CoV-2 (COVID-19) RNA KING+probe Ql (Unsp spec) NEGATIVE COVID-19 Test Coronaviruses are common world-wide and are the cause of many common colds. SARS-COV2 is a new coronavirus that began circulating worldwide in 2019 so we are calling it COVID-19. It has been estimated that four out of five patients with COVID-19 will recover at home without the need for medical attention. Symptoms of COVID-19 may include cough, fever, shortness of breath, loss of taste or smell and other flu-like symptoms including chills, sore muscles, sore throat, and headache. Severe illness is more common in older people and people with other health problems such as high blood pressure, obesity, and immune system problems. If the test is positive, you have COVID-19. You will be contacted by the ordering physicians office and instructed to remain on home isolation, in accordance with CDC guidelines. You may also be contacted by the [facility] to see if any of your close contacts may have been exposed to the virus and need to quarantine. If the test is negative, you likely do not have COVID-19 at this time, but you still may have a different illness that can spread to other people (like Influenza, or the Flu) and could still be at risk for getting COVID-19. We recommend that you stay away from other people to limit the spread of illness until your symptoms are improving and you are fever-free for 24 hours without the use of fever lowering medications such as acetaminophen or ibuprofen. No test is 100% accurate so if you are still concerned you may have COVID-19, talk to your doctor about the need to continue to stay away from others. Medicines Unless your provider told you not to use the following: Acetaminophen (Tylenol and others) is generally safe. Anti-inflammatory medications, such as Ibuprofen (Advil or Motrin) or Naproxen (Aleve) can also be used. Sgji-ojc-dzkvxjp cough and cold medicines can be used according to the instructions on the package. Some nsyk-ujn-lgudxcl medicines also contain acetaminophen. Make sure you are not taking more than your recommended dose. For those not hospitalized, there is no specific treatment available for this illness. Antibiotics do not treat Coronaviruses. Follow-Up Follow up with your doctor by scheduling a virtual visit or consider follow-up at one of our urgent care fever clinics. If you are having difficulty breathing, or are very weak and having difficulty standing, this is a medical emergency. Call 911 or have someone take you to the nearest emergency room immediately. If possible, wear a facemask. Additional guidance from the CDC for patients who tested POSITIVE for COVID-19 How to isolate: Isolate yourself in a specific room at home and limit your contact with others. Use a separate bathroom from other members of the household, when possible. Leave home only to get essential medical care. Do not go to work, school or public areas. Avoid using public transportation, ride-sharing, or taxis. Restrict contact with pets and other animals. If you must care for your pet or be around animals while you are sick, wash your hands before and after your interaction and wear a facemask. Make sure that shared spaces in the home have good airflow, such as by an air conditioner or an opened window, weather permitting. Personal Hygiene Procedures: Wear a face mask when in the same room as other people or pets. If a face mask interferes with your breathing, others should wear a mask when sharing space with you. Frequent hand-washing: wash your hands with soap and water for at least 20 seconds. If soap and water are not available, use alcohol-based hand waitstaff captain. Avoid touching your eyes, nose, and mouth with unwashed hands. Household Hygiene Procedures: Avoid sharing personal household items such as dishes, glassware, cups, eating utensils, towels or bedding with other people or pets in your home. After use, these items should be washed with soap and hot water. Disinfect all high-touch surfaces every day with antibacterial cleaning solutions such as Lysol wipes, bleach, cleansers, etc. High-touch surfaces include tabletops, doorknobs, bathroom fixtures, toilets, phones, keyboards, tablets and bedside tables. Immediately clean any surfaces that may have blood, poop or body fluids on them, using antibacterial cleaning solutions such as Lysol wipes, bleach, cleansers, etc. If clothing or bedding come into contact with blood, poop or body fluids, they should be washed immediately. Follow the directions on the laundry detergent and clothing labels but hot water is recommended when possible. Stopping home isolation precautions: If possible, consult your doctor before stopping home isolation precautions. According to the CDC, you can discontinue home isolation precautions when you have met both of these criteria: Your fever and respiratory symptoms have been gone for 24 chevy (more content not included)... Normal [facility] GLUCOSE-POCTon 08-13-2022 Glucose [Mass/Vol] 160 mg/dL High 74 - 99 [facility] Comment on above: Performed By: #### G JONATHAN #### [facility] [address] [place] [address] Operative Reports - [facility] 08-13-2022 Operative Reports - [place] SURGEON: Fang Rodriguez DPM WINK CUTTER OPERATOR: Sirena Oconnor, PGY-3 PREOPERATIVE DIAGNOSES: 1. Broken hardware, right foot. 2. Arthritis, right foot. 3. Subluxation, right midfoot. 4. Charcot neuroarthropathy, right foot. POSTOPERATIVE DIAGNOSES: 1. Broken hardware, right foot. 2. Arthritis, right foot. 3. Subluxation, right midfoot. 4. Charcot neuroarthropathy, right foot. 5. Posterior tibial tendinitis. 6. Anterior tibial tendon rupture. PROCEDURE: 1. Hardware removal right foot 2. Midfoot fusion right 3. Repair subluxed TN joint right 4. Posterior tibial tendon repair/transfer 5. Anterior tibial tendon repair/transfer 6. Application posterior splint ANESTHESIA: General with 20 mL of 0.5% Marcaine plain ankle block. HEMOSTASIS: Maintained on field at beginning of procedure and the tourniquet was inflated for 120 minutes, thigh tourniquet at 350 mmHg. ESTIMATED BLOOD LOSS: Less than 200 mL. MATERIALS USED: DJO plantar and dorsal locking plates, Viabahn 5 cc bone graft substitute, cancellous chips and DBM putty, amniotic Steri-Shield graft and TissueMend collagen graft and ReelX anchor, FiberWire, Ethibond, Vicryl, and Prolene suture. INDICATIONS: This is a 62-year-old female, who had previous surgery and after traumatic event at home had broken hardware and increased swelling throughout the foot and ankle as well as developing Charcot neuroarthropathy over the last 2 weeks. She has been much more pain now and at this time, she wished to proceed with surgical intervention for the correction of these deformities. All the risks and complications associated with procedure as well as postoperative course have been explained to the patient in full detail with no further questions or concerns at this time. No guarantees have been given as to the outcome of the procedure. PROCEDURE IN DETAIL: Patient was brought to the operative room, placed on table in supine position. The right lower extremity then scrubbed, prepped, and draped in the usual aseptic manner. Procedure #1: Hardware removal, dorsal approach taken to access the midfoot joints. There were 4 francine and total broken. They were removed in their entirety with the exception of a couple of broken legs that were deep into the bone. Those were left in place and stable. Procedure #2: Tarsal bone fusion: A plantar medial approach was taken to access the medial column. The medial cuneiform navicular joint was identified. Multiple bones in the midfoot were fragmented, sclerotic, and arthritic with the recent Charcot changes. The joints were prepped utilizing a rongeur, curette, and subchondral drilling. They were flushed and packed with bone graft, and fixated with biplanar locking plates after pinning in rectus position. Procedure #3: Repair of subluxation of the talonavicular joint. The navicular was dorsally subluxed on the talus. It was freed from surrounding tissue with curettages, rongeur, subchondral drilling after winding subluxed navicular to the talar head in a more rectus position. A pin was driven from 1st ray down to the talus with an arch established at that point. The plantar aspect of the talonavicular joint was fixated with a locking plate. There was good rectus position noted at this time. Procedure #4: The posterior tibial tendon was identified from medial dissection. It was significantly hypertrophic with significant scarring to tendon. Now the diseased portion of the tendon was excised and the tendon was transferred to the FDL tendon adjacent to it with ethibond due to the poor quality of the tendon. Procedure #5: Anterior tibial tendon repair: The anterior approach taken to access anterior tibial tendon. Upon dissection of the hardware removal it was identified that the tendon had ruptured off the insertion site and was torn with significant hypertrophy and thickening at the distal end. The tendon was debrided, whip stitched and inserted into the tendon was remodeled and whipstitched and then inserted into the medial cuneiform under physiologic tension using a Reel X anchor. There was good attachment noted upon stressing. Before bones were fused, multiple rounds of flushing was performed and joints were packed with bone graft substitute. There was good stability on stressing of all the joints upon completion. All incisions were flushed multiple times throughout the case and upon closure later with Steri-Shield amniotic tissue and the tendon was covered with TissueMend. The tissues were closed with layers of Vicryl and Prolene suture. All wounds were dressed with Betadine-soaked Adaptic, 4 x 4s, and a compressive posterior sugar-tong splint then applied. The patient was then transferred to PACU with vital signs stable and vascular status intact. COMPLICATIONS: Anterior tibial tendon rupture identified and (more content not included)... Normal [facility] Order Reconciliationon 08-13 Order Reconciliation Page 1 Discharge Reconciliation Document Reconciliation Type: Discharge requested on behalf of Fang Rodriguez (Physician) done by Fang Rodriguez (FLASH) Discharge - Partial Reconciliation: 13-Aug-2022 07:45 by: Fang Rodriguez (FLASH) Discharge - Reconciliation: 13-Aug-2022 10:29 by: Fang Rodriguez (FLASH) Home Medications EnteredHOME MEDICATIONS AT DISCHARGE DateReconciliation Comment/ Additional Information albuterol 90 mcg/inh inhalation aerosol 1 katie inhalation prn 04-Dec-2021 09:23 albuterol 90 mcg/inh inhalation aerosol 1 katie inhalation prn 04-Dec-2021 09:23 albuterol 90 mcg/inh inhalation aerosol is continued as albuterol 90 mcg/inh inhalation aerosol biotin 5000 mcg oral tablet, disintegrating 1 cap(s) oral twice a day 01-Jun-2022 11:18 biotin 5000 mcg oral tablet, disintegrating 1 cap(s) oral twice a day 01-Jun-2022 11:18 biotin 5000 mcg oral tablet, disintegrating is continued as biotin 5000 mcg oral tablet, disintegrating cinnamon 500 mg oral capsule 2 cap(s) oral twice a day 01-Jun-2022 11:18 cinnamon 500 mg oral capsule 2 cap(s) oral twice a day 01-Jun-2022 11:18 cinnamon 500 mg oral capsule is continued as cinnamon 500 mg oral capsule fenofibrate 48 mg oral tablet 1 cap(s) oral once a day 04-Dec-2021 09:19 fenofibrate 48 mg oral tablet 1 cap(s) oral once a day 04-Dec-2021 09:19 fenofibrate 48 mg oral tablet is continued as fenofibrate 48 mg oral tablet FLUoxetine 10 mg oral capsule 1 tab(s) oral once a day 01-Jun-2022 12:00 FLUoxetine 10 mg oral capsule 1 tab(s) oral once a day 01-Jun-2022 12:00 FLUoxetine 10 mg oral capsule is continued as FLUoxetine 10 mg oral capsule gabapentin 800 mg oral tablet 1 cap(s) oral 4 times a day 04-Dec-2021 09:16 gabapentin 800 mg oral tablet 1 cap(s) oral 4 times a day 04-Dec-2021 09:16 gabapentin 800 mg oral tablet is continued as gabapentin 800 mg oral tablet garlic - oral tablet 1 tab(s) oral once a day 01-Jun-2022 11:22 garlic - oral tablet 1 tab(s) oral once a day 01-Jun-2022 11:22 garlic - oral tablet is continued as garlic - oral tablet HumaLOG 100 units/mL subcutaneous solution 20 intl units subcutaneous 3 times a day (with meals) 01-Jun-2022 11:20 HumaLOG 100 units/mL subcutaneous solution 20 intl units subcutaneous 3 times a day (with meals) 01-Jun-2022 11:20 HumaLOG 100 units/mL subcutaneous solution is continued as HumaLOG 100 units/mL subcutaneous solution hydroCHLOROthiazide 25 mg oral tablet 1 cap(s) oral once a day 04-Dec-2021 09:17 hydroCHLOROthiazide 25 mg oral tablet 1 cap(s) oral once a day 04-Dec-2021 09:17 hydroCHLOROthiazide 25 mg oral tablet is continued as hydroCHLOROthiazide 25 mg oral tablet Lantus Solostar Pen 60 units subcutaneous once a day at bedtime 01-Jun-2022 11:20 Lantus Solostar Pen 60 units subcutaneous once a day at bedtime 01-Jun-2022 11:20 Lantus Solostar Pen is continued as Lantus Solostar Pen levothyroxine 100 mcg (0.1 mg) oral tablet 1 cap(s) oral once a day 04-Dec-2021 09:18 levothyroxine 100 mcg (0.1 mg) oral tablet 1 cap(s) oral once a day 04-Dec-2021 09:18 levothyroxine 100 mcg (0.1 mg) oral tablet is continued as levothyroxine 100 mcg (0.1 mg) oral tablet metFORMIN 1000 mg oral tablet 1 cap(s) oral twice a day 10-Aug-2022 14:21 metFORMIN 1000 mg oral tablet 1 cap(s) oral twice a day 10-Aug-2022 14:21 metFORMIN 1000 mg oral tablet is continued as metFORMIN 1000 mg oral tablet multivitamin Multiple Vitamins oral tablet 1 tab(s) oral once a day 01-Jun-2022 11:22 multivitamin Multiple Vitamins oral tablet 1 tab(s) oral once a day 01-Jun-2022 11:22 multivitamin Multiple Vitamins oral tablet is continued as multivitamin Multiple Vitamins oral tablet Belgrade-3 1000 mg oral capsule 1 cap(s) oral twice a day 01-Jun-2022 11:21 Belgrade-3 1000 mg oral capsule 1 cap(s) oral twice a day 01-Jun-2022 11:21 Belgrade-3 1000 mg oral capsule is continued as Belgrade-3 1000 mg oral capsule turmeric 500 mg oral capsule 1 tab(s) oral twice a day 01-Jun-2022 11:22 turmeric 500 mg oral capsule 1 tab(s) oral twice a day 01-Jun-2022 11:22 turmeric 500 mg oral capsule is continued as turmeric 500 mg oral capsule Ventolin HFA 90 mcg/inh inhalation aerosol 1 katie inhalation prn 04-Dec-2021 09:23 Ventolin HFA 90 mcg/inh inhalation aerosol 1 katie inhalation prn 04-Dec-2021 09:23 Ventolin HFA 90 mcg/inh inhalation aerosol is continued as Ventolin HFA 90 mcg/inh inhalation aerosol Ventolin HFA 90 mcg/inh inhalation aerosol 1 INHL inhalation prn 10-Aug-2022 14:24 Ventolin HFA 90 mcg/inh inhalation aerosol 1 INHL inhalation prn 10-Aug-2022 14:24 Ventolin HFA 90 mcg/inh inhalation aerosol is continued as Ventolin HFA 90 mcg/inh inhalation aerosol Vitamin B12 250 mcg oral tablet 1 cap(s) oral once a day 04-Dec-2021 09:20 Vitamin B12 250 mcg oral tablet 1 cap(s) oral once a day 04-Dec-2021 09:20 Vitamin B12 250 mcg oral tablet is continued as Vitamin B12 250 mcg oral tablet Vitamin B6 100 mg oral tablet 1 tab(s) oral (more content not included)... Normal [facility] CORONAVIRUS 2019, SCREEN ASY MPTOMATICon 08-12-2022 Lab Specimen Source Nasal, Nasopharyngeal Normal [facility] Comment on above: Performed By: #### C OVSC #### [facility] [address] [place] [id number] Patient Profile - Preop v3on 08-12-2022 Patient Profile - Preop v3 Patient Profile - Preop: Initial Info: Patient DemographicsName: MARIE SEXTON Date: 1960 Address: [address] [place] [address] Date/Time [id number] 11:51 Primary Phone [phone] Call Attemptedattempt 1 Instructions Giventime to arrive Prep Instructions Reviewedyes Pt instructed to arrive at 6:15 for 7:30 surgery. Pt encouraged to review pre-op instruction sheet and remain NPO at midnight. Understanding is verbalized. Prep Typepre-op Instructed to Have No Fluids Aftermidnight How to be AddressedJUNE Spoken Language PreferredEnglish Source of Informationpatient Stated Reason for AdmissionREDO RIGHT FOOT SURGERY Primary Contact Name and NumberDAUGHTER JENNIFER Limitations on Visitors/Phone Callsnone Medications Brought to Hospitalno General Health: Patient or Family Member Reaction to Anesthesiano previous reaction Blood Avoidance/Restrictionsn one Previous Transfusion Reactionnot applicable Health Mgmt: [facility] Barriers to Managing Healthnone Relationship/Environ: Lives Withspouse Living Arrangementshouse Resource/Environmental Concernsnone Anticipated Transition [place] [facility] Anticipated at Transitionnone Tobacco Use: Tobacco Useno Pre-op Checklist: Arrival [id number] Arrival Time06:30 Procedure TypeRIGHT MIDFOOT FUSION/ REPAIR SUBLUXED TARSAL JOINT WITH C-ARM RIGHT FOOT HARDWARE REMOVAL NPOyes Last Food [id number] 22:30 Last Clear Fluid [id number] 22:30 ID Band On Patientpatient ID (name), allergy, falls risk Consent Signedyes H&P Completeyes Anesthesia Assessment Completedyes EKG Performedsee results tab Chest X-Ray Performedsee results tab Preop Antibioticssent to OR Beta-vita CommentN/A COVID 19 Results in Last 7 daysNOT DETECTED Type and Screen Resultedn/a Chlorhexadine Bath Givencompleted at home Nasal Antiseptic Appliednot applicable Soap and Water Bath the Night Before Surgeryyes Hair Washed with Shampooyes Bowel Prepno Surgical Site Infection Preventionyes Pain Scales and Managementyes Additional Information: Information Review: Allergies, Home Meds and Significant Events have been Reviewed and Verified with Patient/Familyyes Allergy, Intolerance, Adverse Event: Allergies: Demerol HCl: Drug, Psychosis (Moderate), Active codeine: Drug, Psychosis (Moderate), Active morphine: Drug, Psychosis, Active Doxycycline Hyclate: Drug, Unknown, Active Augmentin: Drug, Unknown, Active Electronic Signatures: Christopher Caceres (DEMI) (Signed 13-Aug-2022 06:56) Authored: Initial Info, General Health, Health Mgmt, Relationship/Environ, Tobacco Use, Pre-op Checklist, Additional Information Britt Ryder) (Signed 12-Aug-2022 11:51) Authored: Initial Info, Additional Information Last Updated: 13-Aug-2022 06:56 by Christopher Caceres (DEMI) Normal [facility] CBC AND DIFFERENTIALon 08-10 % AUTOMATED IMMATURE GRAN 0.4 % Normal 0.0 - 0.9 [facility] Comment on above: Result Comment: Coni ture Granulocyte Count (IG) includes promyelocytes, myelocytes and metamyelocytes but does not include bands. Percent differential counts (%) should be interpreted in the context of the absolute cell counts (cells/L). Performed By: #### C BCDF #### [facility] [address] [place] [address] Basophils (Bld) [#/Vol] 0.05 10*3/uL Normal 0.00 - 0.10 [facility] Comment on above: Performed By: #### C BCDF #### [address] [address] Basophils/100 WBC (Bld) 0.7 % Normal 0.0 - 2.0 [facility] Comment on above: Performed By: #### C BCDF #### [address] [address] Eosinophils (Bld) [#/Vol] 0.20 10*3/uL Normal 0.00 - 0.70 [facility] Comment on above: Performed By: #### C BCDF #### [address] [address] Eosinophils/100 WBC (Bld) 2.6 % Normal 0.0 - 6.0 [facility] Comment on above: Performed By: #### C BCDF #### [address] [address] Erythrocyte distribution width (RBC) [Ratio] 12.9 % Normal 11.5 - 14.5 [facility] Comment on above: Performed By: #### C BCDF #### [address] [address] Hematocrit (Bld) [Volume fraction] 38.5 % Normal 36.0 - 46.0 [facility] Comment on above: Performed By: #### C BCDF #### [address] [address] Hemoglobin (Bld) [Mass/Vol] 12.6 g/dL Normal 12.0 - 16.0 [facility] Comment on above: Performed By: #### C BCDF #### [address] [address] Lymphocytes (Bld) [#/Vol] 2.69 10*3/uL Normal 1.20 - 4.80 [facility] Comment on above: Performed By: #### C BCDF #### [address] [address] Lymphocytes/100 WBC (Bld) 35.6 % Normal 13.0 - 44.0 [facility] Comment on above: Performed By: #### C BCDF #### [facility] [address] [place] [address], [place] [address] MCHC (RBC) [Mass/Vol] 32.7 g/dL Normal 32.0 - 36.0 [facility] Comment on above: Performed By: #### C BCDF #### [address] [place] [address] MCV (RBC) [Entitic vol] 90 fL Normal 80 - 100 [facility] Comment on above: Performed By: #### C BCDF #### [address] [place] [address] Monocytes (Bld) [#/Vol] 0.56 10*3/uL Normal 0.10 - 1.00 [facility] Comment on above: Performed By: #### C BCDF #### [address] [place] [address] Monocytes/100 WBC (Bld) 7.4 % Normal 2.0 - 10.0 [facility] Comment on above: Performed By: #### C BCDF #### [address] [place] [address] Neutrophils (Bld) [#/Vol] 4.02 10*3/uL Normal 1.20 - 7.70 [facility] Comment on above: Performed By: #### C BCDF #### [address] [place] [address] Neutrophils/100 WBC (Bld) 53.3 % Normal 40.0 - 80.0 [facility] Comment on above: Performed By: #### C BCDF #### [facility] [address] [place] [address], [place] [address] NUCLEATED RBC 0.0 /100 WBC Normal 0.0 - 0.0 [facility] Comment on above: Performed By: #### C BCDF #### [address] [place] [address] Platelets (Bld) [#/Vol] 360 10*3/uL Normal 150 - 450 [facility] Comment on above: Performed By: #### C BCDF #### [facility] [address] [place] [address] RBC 4.27 x10E12/L Normal 4.00 - 5.20 [facility] Comment on above: Performed By: #### C BCDF #### [facility] [address] [place] [address] WBC (Bld) [#/Vol] 7.6 10*3/uL Normal 4.4 - 11.3 [facility] Comment on above: Performed By: #### C BCDF #### [facility] [address] [place] [address] COMPREHENSIVE PANELon 2021 Albumin [Mass/Vol] 4.2 g/dL Normal 3.4 - 5.0 [facility] Comment on above: Performed By: #### C MP #### [facility] [address] [place] [address] ALP [Catalytic activity/Vol] 77 U/L Normal 33 - 136 [facility] Comment on above: Performed By: #### C MP #### [facility] [address] [place] [address] ALT [Catalytic activity/Vol] 14 U/L Normal 7 - 45 [facility] Comment on above: Result Comment: Shaista ents treated with Sulfasalazine may generate falsely decreased results for ALT. Performed By: #### C MP #### [facility] [address] [place] [address] Anion gap [Moles/Vol] 13 mmol/L Normal 10 - 20 [facility] Comment on above: Performed By: #### C MP #### [facility] [address] [place] [address] AST [Catalytic activity/Vol] 18 U/L Normal 9 - 39 [facility] Comment on above: Performed By: #### C MP #### [facility] [address] [place] [address] Bilirubin [Mass/Vol] 0.3 mg/dL Normal 0.0 - 1.2 [facility] Comment on above: Performed By: #### C MP #### [facility] [address] [place] [address] Calcium [Mass/Vol] 10.0 mg/dL Normal 8.6 - 10.6 [facility] Comment on above: Performed By: #### C MP #### [facility] [address] [place] [address] Chloride [Moles/Vol] 105 mmol/L Normal 98 - 107 [facility] Comment on above: Performed By: #### C MP #### [facility] [address] [place] [address] Creatinine [Mass/Vol] 1.14 mg/dL High 0.50 - 1.05 [facility] Comment on above: Performed By: #### C MP #### [facility] [address] [place] [address] GFR/1.73 sq M.predicted among non-blacks MDRD (S/P/Bld) [Vol rate/Area] 55 mL/min/{1.73_m2} Abnormal >90 [facility] Comment on above: Result Comment: CALC ULATIONS OF ESTIMATED GFR ARE PERFORMED USING THE 2020 CKD-EPI STUDY REFIT EQUATION WITHOUT THE RACE VARIABLE FOR THE IDMS-TRACEABLE CREATININE METHODS. https://jasn.asnjournals.org/content//ASN.9351400 988 Performed By: #### C MP #### [facility] [address] [place] [address] Glucose [Mass/Vol] 87 mg/dL Normal 74 - 99 [facility] Comment on above: Performed By: #### C MP #### [facility] [address] [place] [address] HCO3 (Bld) [Moles/Vol] 28 mmol/L Normal 21 - 32 [facility] Comment on above: Performed By: #### C MP #### [facility] [address] [place] [address] Potassium [Moles/Vol] 4.0 mmol/L Normal 3.5 - 5.3 [facility] Comment on above: Performed By: #### C MP #### [facility] [address] [place] [address] Protein [Mass/Vol] 7.5 g/dL Normal 6.4 - 8.2 [facility] Comment on above: Performed By: #### C MP #### [facility] [address] [place] [address] Sodium [Moles/Vol] 142 mmol/L Normal 136 - 145 [facility] Comment on above: Performed By: #### C MP #### [facility] [address] [place] [address] Urea nitrogen [Mass/Vol] 21 mg/dL Normal 6 - 23 [facility] Comment on above: Performed By: #### C MP #### [facility] [address] [place] [address] HEMOGLOBIN A1Con 07-31-2022 Glucose [Mass/Vol] 105 mg/dL Normal [facility] Comment on above: Performed By: #### C OVSC #### [facility] [address] [place] [address] HbA1c (Bld) [Mass fraction] 5.3 % Normal [facility] Comment on above: Result Comment: Diag nosis of Diabetes-Adults Non-Diabetic: < or = 5.6% Increased risk for developing diabetes: 5.7-6.4% Diagnostic of diabetes: > or = 6.5% . Monitoring of Diabetes Age (y) Therapeutic Goal (%) Adults: >18 <7.0 Pediatrics: 13-18 <7.5 7-12 <8.0 0- 6 7.5-8.5 [place] [employer]. Diabetes Care 33(S1), Nov 2009. Performed By: #### C OVSC #### [facility] [address] [place] [address] LDL, DIRECTon 07-31-2022 Cholesterol in LDL [Mass/Vol] 95 mg/dL Normal 0 - 129 [facility] Comment on above: Result Comment: Elev ated levels of LDL cholesterol are recognized as a fisher factor in the development of atherosclerosis and CHD. The direct LDL cholesterol test can be used to assess cardiovascular risk and monitor therapy as a follow up to a lipid profile when triglycerides are significantly elevated. Performed By: #### C OVSC #### [facility] [address] [place] [address] LIPID PANEL (CORONARY RISK 2 )on 07-31-2022 Cholesterol [Mass/Vol] 152 mg/dL Normal 0 - 199 [facility] Comment on above: Result Comment: . AGE DESIRABLE BORDERLINE HIGH HIGH 0-19 Y 0 - 169 170 - 199 >/= 200 20-24 Y 0 - 189 190 - 224 >/= 225 >24 Y 0 - 199 200 - 239 >/= 240 All ranges are based on fasting samples. Specific therapeutic targets will vary based on patient-specific cardiac risk. . Pediatric guidelines reference:Pediatrics 2011, 128(S5). Adult guidelines reference: NCEP ATPIII Guidelines, EMELI 2001, 258:2486-97 . Venipuncture immediately after or during the administration of Metamizole may lead to falsely low results. Testing should be performed immediately prior to Metamizole dosing. Performed By: #### C OVSC #### [facility] [address] [place] [address] Cholesterol in HDL [Mass/Vol] 36.6 mg/dL Abnormal [facility] Comment on above: Result Comment: . AGE VERY LOW LOW NORMAL HIGH 0-19 Y < 35 < 40 40-45 ---- 20-24 Y ---- < 40 >45 ---- >24 Y ---- < 40 40-60 >60 . Performed By: #### C OVSC #### [facility] [address] [place] [address] Cholesterol in LDL [Mass/Vol] 79 mg/dL Normal 0 - 99 [facility] Comment on above: Result Comment: . NEAR BORD AGE DESIRABLE OPTIMAL HIGH HIGH VERY HIGH 0-19 Y 0 - 109 --- 110-129 >/= 130 ---- 20-24 Y 0 - 119 --- 120-159 >/= 160 ---- >24 Y 0 - 99 100-129 130-159 160-189 >/=190 . Performed By: #### C OVSC #### [facility] [address] [place] [address] Cholesterol in VLDL [Mass/Vol] 37 mg/dL Normal 0 - 40 [facility] Comment on above: Performed By: #### C OVSC #### [facility] [address] [place] [address] Cholesterol.total/Ch olesterol in HDL [Mass ratio] 4.2 {ratio} Normal [facility] Comment on above: Result Comment: REF VALUES DESIRABLE < 3.4 HIGH RISK > 5.0 Performed By: #### C OVSC #### [facility] [address] [place] [address] Triglyceride [Mass/Vol] 183 mg/dL High 0 - 149 [facility] Comment on above: Result Comment: . AGE DESIRABLE BORDERLINE HIGH HIGH VERY HIGH 0 D-90 D 19 - 174 ---- ---- ---- 91 D- 9 Y 0 - 74 75 - 99 >/= 100 ---- 10-19 Y 0 - 89 90 - 129 >/= 130 ---- 20-24 Y 0 - 114 115 - 149 >/= 150 ---- >24 Y 0 - 149 150 - 199 200- 499 >/= 500 . Venipuncture immediately after or during the administration of Metamizole may lead to falsely low results. Testing should be performed immediately prior to Metamizole dosing. Performed By: #### C OVSC #### [facility] [address] [place] [address] TSHon 07-31-2022 TSH Qn 1.32 m[IU]/L Normal 0.44 - 3.98 [facility] Comment on above: Result Comment: TSH testing is performed using different testing methodology at [facility] than at other [facility]. Direct result comparisons should only be made within the same method. Performed By: #### A LBSP #### [facility] [address] [place] [address] GLUCOSE-POCTon 06-05-2022 Glucose [Mass/Vol] 128 mg/dL High 74 - 99 [facility] Comment on above: Performed By: #### G JONATHAN #### [address] [address] Operative Reports - Rickreallon 06-05-2022 Operative Reports - Rickreall SURGEON: Fang Rodriguez, DPM 1ST WINK CUTTER OPERATOR: Josias Oliveros, PGY-3. 2ND WINK CUTTER OPERATOR: Ly Sheikh, PGY-2. PREOPERATIVE DIAGNOSES: 1. Right pes planus. 2. Right foot arthritis. 3. Right equinus. 4. Right deltoid sprain. POSTOPERATIVE DIAGNOSES: 1. Right pes planus. 2. Right foot arthritis. 3. Right equinus. 4. Right deltoid sprain. PROCEDURES: 1. Gastroc recession, right. 2. Subtalar joint fusion, right. 3. Midfoot fusion, right. 4. Deltoid repair, right. ANESTHESIA: General with 20 cc of 0.5% Marcaine plain and 2% lidocaine plain ankle block. Hemostasis maintained on field for the beginning portion of procedure and then thigh tourniquet was then inflated for approximately 90 minutes. ESTIMATED BLOOD LOSS: Less than 100 cc. MATERIALS USED: Floyd Iconix and ReelX anchor, [place] TissueMend, DJO SteriShield, DJO subtalar nail, MedShape staple x4, platelet rich and platelet poor plasma and thrombin, InQu bone graft substitute 15 cc, and ViBone bone graft substitute 5 cc, Vicryl and Prolene suture. INDICATIONS: This is a 62-year-old female, who has a significantly deformed right foot and ankle. She has failed bracing shoe gear modifications and she has been ready for surgery for awhile. However, her prior contralateral tendon tear immediately taking care first. The pain and the deformity are getting to the point where she is developing wounds as well. We did discuss having midfoot and forefoot procedures in the future to help further balance her foot into a more rectus position. However, we will attempt to achieve as much correction as possible today. All the risks and complications associated with the procedure as well as postoperative course had been explained to the patient in full detail. No further questions or concerns at this time. No guarantees have been given to the outcome of procedure. PROCEDURE IN DETAIL: The patient was brought to the operating room, placed on table in supine position. The right lower extremity was then scrubbed, prepped, and draped in the usual aseptic manner. 1. Gastroc recession standard medial approach was taken to access the gastroc aponeurosis. After dissection, a tissue protector was inserted and a Belanit saber blade was utilized to transect the aponeurosis of the minimally invasive approach. She led from approximately 0 degrees dorsiflexion past 90 preop to approximately 15 degrees dorsiflexion past 90 after the procedure. Incision was flushed and closed with Prolene suture. 2. Subtalar joint arthrodesis. A standard lateral approach was taken access the sinus tarsi. Soft tissue was then excised from the sinus tarsi. The subtalar joint was then distracted with a lamina car distributor and the joint was prepared utilizing a combination of rongeur, osteotome, curette, subchondral drilling and fish scaling was performed until there was healthy bleeding bone. The incision was flushed. It was packed with bone graft substitute mixed with PRP and the joint was then closed in layers with Vicryl and Prolene suture. The subtalar joint nail was then inserted per supervisor bindery's recommended technique an 80 mm nail along with the lateral stabilizing screw in the calcaneus. There was excellent stability noted, good compression upon placement of the nail. This was confirmed with multiple fluoroscopic views throughout the entire procedure. The foot was held in a more rectus position upon fusion. 3. Midfoot fusion. A dorsal approach taken access the talonavicular and NC joint. The talonavicular joint was prepped utilizing a combination of rongeur, osteotome, curette, subchondral drilling and fish scaling was performed to healthy bleeding bone. The joint was packed with bone graft substitute and fixated with med shaped nails held in a more rectus position. There was excellent compression and stability noted upon final placement and stressing. The remaining midfoot fault was then addressed at this time. A dorsal approach taken to access the NC joint and the medial cuneiform and navicular were then prepped utilizing a combination of rongeur, osteotome, curette, subchondral drilling and fish scaling was performed down to bleeding bone. After flushing of the joint, the incision was packed with bone graft substitute and fixated with 2 wedge-shaped francine, confirmed clinically and fluoroscopically to have good positioning and compression as well as stability. Adding the NC fusion did help elevate that medial columm the foot was held in a more rectus position. These incisions were closed in layers with Vicryl and Prolene suture after wrapping TissueMend around the anterior tibial tendon, which was exposed. DJO SteriShield was added on top of the tendon as well between the tendon and skin for later closure. 4. Deltoid repair. After rearfoot and midfoot fusions were performed, the ankle was stressed under (more content not included)... Normal [facility] Order Reconciliationon 06-05 Order Reconciliation Page 1 Discharge Reconciliation Document Reconciliation Type: Discharge requested on behalf of Fang Rodriguez (Physician) done by Fang Rodriguez (DPM) Discharge - Partial Reconciliation: 05-Jun-2022 09:34 by: Fang Rodriguez (DPM) Discharge - Reconciliation: 05-Jun-2022 13:34 by: Fang Rodriguez (DPM) Home Medications EnteredHOME MEDICATIONS AT DISCHARGE DateReconciliation Comment/ Additional Information albuterol 90 mcg/inh inhalation aerosol 1 katie inhalation prn 04-Dec-2021 09:23 albuterol 90 mcg/inh inhalation aerosol 1 katie inhalation prn 04-Dec-2021 09:23 albuterol 90 mcg/inh inhalation aerosol is continued as albuterol 90 mcg/inh inhalation aerosol biotin 5000 mcg oral tablet, disintegrating 1 cap(s) oral twice a day 01-Jun-2022 11:18 biotin 5000 mcg oral tablet, disintegrating 1 cap(s) oral twice a day 01-Jun-2022 11:18 biotin 5000 mcg oral tablet, disintegrating is continued as biotin 5000 mcg oral tablet, disintegrating cinnamon 500 mg oral capsule 2 cap(s) oral twice a day 01-Jun-2022 11:18 cinnamon 500 mg oral capsule 2 cap(s) oral twice a day 01-Jun-2022 11:18 cinnamon 500 mg oral capsule is continued as cinnamon 500 mg oral capsule fenofibrate 48 mg oral tablet 1 cap(s) oral once a day 04-Dec-2021 09:19 fenofibrate 48 mg oral tablet 1 cap(s) oral once a day 04-Dec-2021 09:19 fenofibrate 48 mg oral tablet is continued as fenofibrate 48 mg oral tablet FLUoxetine 10 mg oral capsule 1 tab(s) oral once a day 01-Jun-2022 12:00 FLUoxetine 10 mg oral capsule 1 tab(s) oral once a day 01-Jun-2022 12:00 FLUoxetine 10 mg oral capsule is continued as FLUoxetine 10 mg oral capsule gabapentin 800 mg oral tablet 1 cap(s) oral 4 times a day 04-Dec-2021 09:16 gabapentin 800 mg oral tablet 1 cap(s) oral 4 times a day 04-Dec-2021 09:16 gabapentin 800 mg oral tablet is continued as gabapentin 800 mg oral tablet garlic - oral tablet 1 tab(s) oral once a day 01-Jun-2022 11:22 garlic - oral tablet 1 tab(s) oral once a day 01-Jun-2022 11:22 garlic - oral tablet is continued as garlic - oral tablet HumaLOG 100 units/mL subcutaneous solution 20 intl units subcutaneous 3 times a day (with meals) 01-Jun-2022 11:20 HumaLOG 100 units/mL subcutaneous solution 20 intl units subcutaneous 3 times a day (with meals) 01-Jun-2022 11:20 HumaLOG 100 units/mL subcutaneous solution is continued as HumaLOG 100 units/mL subcutaneous solution hydroCHLOROthiazide 25 mg oral tablet 1 cap(s) oral once a day 04-Dec-2021 09:17 hydroCHLOROthiazide 25 mg oral tablet 1 cap(s) oral once a day 04-Dec-2021 09:17 hydroCHLOROthiazide 25 mg oral tablet is continued as hydroCHLOROthiazide 25 mg oral tablet Lantus Solostar Pen 60 units subcutaneous once a day at bedtime 01-Jun-2022 11:20 Lantus Solostar Pen 60 units subcutaneous once a day at bedtime 01-Jun-2022 11:20 Lantus Solostar Pen is continued as Lantus Solostar Pen levothyroxine 100 mcg (0.1 mg) oral tablet 1 cap(s) oral once a day 04-Dec-2021 09:18 levothyroxine 100 mcg (0.1 mg) oral tablet 1 cap(s) oral once a day 04-Dec-2021 09:18 levothyroxine 100 mcg (0.1 mg) oral tablet is continued as levothyroxine 100 mcg (0.1 mg) oral tablet metFORMIN 1000 mg oral tablet 1 cap(s) oral twice a day 01-Jun-2022 11:19 metFORMIN 1000 mg oral tablet 1 cap(s) oral twice a day 01-Jun-2022 11:19 metFORMIN 1000 mg oral tablet is continued as metFORMIN 1000 mg oral tablet multivitamin Multiple Vitamins oral tablet 1 tab(s) oral once a day 01-Jun-2022 11:22 multivitamin Multiple Vitamins oral tablet 1 tab(s) oral once a day 01-Jun-2022 11:22 multivitamin Multiple Vitamins oral tablet is continued as multivitamin Multiple Vitamins oral tablet Belgrade-3 1000 mg oral capsule 1 cap(s) oral twice a day 01-Jun-2022 11:21 Belgrade-3 1000 mg oral capsule 1 cap(s) oral twice a day 01-Jun-2022 11:21 Belgrade-3 1000 mg oral capsule is continued as Belgrade-3 1000 mg oral capsule turmeric 500 mg oral capsule 1 tab(s) oral twice a day 01-Jun-2022 11:22 turmeric 500 mg oral capsule 1 tab(s) oral twice a day 01-Jun-2022 11:22 turmeric 500 mg oral capsule is continued as turmeric 500 mg oral capsule Ventolin HFA 90 mcg/inh inhalation aerosol 1 katie inhalation prn 04-Dec-2021 09:23 Ventolin HFA 90 mcg/inh inhalation aerosol 1 katie inhalation prn 04-Dec-2021 09:23 Ventolin HFA 90 mcg/inh inhalation aerosol is continued as Ventolin HFA 90 mcg/inh inhalation aerosol Vitamin B12 250 mcg oral tablet 1 cap(s) oral once a day 04-Dec-2021 09:20 Vitamin B12 250 mcg oral tablet 1 cap(s) oral once a day 04-Dec-2021 09:20 Vitamin B12 250 mcg oral tablet is continued as Vitamin B12 250 mcg oral tablet Vitamin B6 100 mg oral tablet 1 tab(s) oral once a day 01-Jun-2022 11:23 Vitamin B6 100 mg oral tablet 1 tab(s) oral once a day 01-Jun-2022 11:23 Vitamin B6 100 mg oral tablet is continued as Vitamin B6 100 mg oral tablet zolpidem 10 mg oral tablet 1 cap(s) oral once a day 04-Dec-2021 09:18 zolpidem 10 mg oral (more content not included)... 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 (procedure may be cancelled if no local owner operator truck driver), center location, remove jewerly/piercings, time to arrive, arrival time of 0800 for 0930 surgery Prep Instructions Reviewedyes Prep Typeper office Instructed to Have No Fluids Aftermidnight How to be Addresseddtr Spoken Language PreferredEnglish Source of Informationpatient Stated Reason for Admissionright foot Primary Contact Name and Numberfamily Limitations on Visitors/Phone Callsnone Medications Brought to Hospitalno General Health: Weight in kg89.3 kilogram(s) Weight in tvx067.8 pound(s) Weight Methodactual (measured) Scale Typestanding Height in feet6 feet Height in inches0.95 inch(es) Height in cm185.2 centimeter(s) Height Methodheight measured BMI (kg/m2)26.035 square meter Patient or Family Member Reaction to Anesthesiano previous reaction Blood Avoidance/Restrictionsn one Previous Transfusion Reactionno Health Mgmt: Symptoms/Conditions Managed at Homeendocrine Endocrine Symptoms/Conditionsthyr oid disease; diabetes Endocrine Management Strategiesmedication therapy; insulin therapy Barriers to Managing Healthnone Relationship/Environ: Lives Withadult child(mehul) Living Arrangementshouse Resource/Environmental Concernsnone Anticipated Transition [place] Services Anticipated at Transitionnone Tobacco Use: Tobacco Useyes Last Tobacco [id number] Number of Packs per Day1 Pre-op Checklist: Procedure Typeright foot NPOyes Last Food [id number] 19:00 Last Clear Fluid [id number] 07:00 ID Band On Patientpatient ID (name), allergy Consent Signedyes H&P Completeyes Anesthesia Assessment Completedyes EKG Performedsee results tab Chest X-Ray Performednot ordered Preop Antibioticssent to OR Chlorhexadine Bath Givengiven night before surgery Nasal Antiseptic Appliednot applicable Soap and Water Bath the Night Before Surgeryyes Hair Washed with Shampooyes Surgical Site Infection Preventionyes Pain Scales and Managementyes Additional Information: Information Review: Allergies, Home Meds and Significant Events have been Reviewed and Verified with Patient/Familyyes Allergy, Intolerance, Adverse Event: Allergies: Demerol HCl: Drug, Psychosis (Moderate), Active codeine: Drug, Psychosis (Moderate), Active Augmentin: Drug, Unknown, Active morphine: Drug, Unknown, Active Doxycycline Hyclate: Drug, Unknown, Active Electronic Signatures: Torrie Landaverde (RN) (Signed 05-Jun-2022 08:36) Authored: Initial Info, General Health, Health Mgmt, Relationship/Environ, Tobacco Use, Pre-op Checklist, Additional Information Garland Rivas) (Signed 04-Jun-2022 12:23) Authored: Initial Info, Additional Information Last Updated: 05-Jun-2022 08:36 by Torrie Landaverde (RN) Normal [facility] BASIC METABOLIC PANELon 07- Anion gap [Moles/Vol] 12 mmol/L Normal 10 - 20 [facility] Comment on above: Performed By: #### B MP #### [address] [address] Calcium [Mass/Vol] 9.8 mg/dL Normal 8.6 - 10.3 [facility] Comment on above: Performed By: #### B MP #### [address] [address] Chloride [Moles/Vol] 103 mmol/L Normal 98 - 107 [facility] Comment on above: Performed By: #### B MP #### [address] [address] Creatinine [Mass/Vol] 0.94 mg/dL Normal 0.50 - 1.05 [facility] Comment on above: Performed By: #### B MP #### [address] [address] GFR/1.73 sq M.predicted among non-blacks MDRD (S/P/Bld) [Vol rate/Area] 69 mL/min/{1.73_m2} Normal >90 [facility] Comment on above: Result Comment: CALC ULATIONS OF ESTIMATED GFR ARE PERFORMED USING THE 2020 CKD-EPI STUDY REFIT EQUATION WITHOUT THE RACE VARIABLE FOR THE IDMS-TRACEABLE CREATININE METHODS. https://jasn.asnjournals.org/content//ASN.8903409 988 Performed By: #### B MP #### [address] [address] Glucose [Mass/Vol] 129 mg/dL High 74 - 99 [facility] Comment on above: Performed By: #### B MP #### [address] [address] HCO3 (Bld) [Moles/Vol] 28 mmol/L Normal 21 - 32 [facility] Comment on above: Performed By: #### B MP #### [address] [address] Potassium [Moles/Vol] 4.2 mmol/L Normal 3.5 - 5.3 [facility] Comment on above: Performed By: #### B MP #### [address] [address] Sodium [Moles/Vol] 139 mmol/L Normal 136 - 145 [facility] Comment on above: Performed By: #### B MP #### [address] [address] Urea nitrogen [Mass/Vol] 22 mg/dL Normal 6 - 23 [facility] Comment on above: Performed By: #### B MP #### [address] [address] CBC AND DIFFERENTIALon 06-01 % AUTOMATED IMMATURE GRAN 0.4 % Normal 0.0 - 0.9 [facility] Comment on above: Result Comment: Coni ture Granulocyte Count (IG) includes promyelocytes, myelocytes and metamyelocytes but does not include bands. Percent differential counts (%) should be interpreted in the context of the absolute cell counts (cells/L). Performed By: #### C BCDF #### [address] [address] Basophils (Bld) [#/Vol] 0.05 10*3/uL Normal 0.00 - 0.10 [facility] Comment on above: Performed By: #### C BCDF #### [address] [address] Basophils/100 WBC (Bld) 0.7 % Normal 0.0 - 2.0 [facility] Comment on above: Performed By: #### C BCDF #### [address] [address] Eosinophils (Bld) [#/Vol] 0.21 10*3/uL Normal 0.00 - 0.70 [facility] Comment on above: Performed By: #### C BCDF #### [address] [address] Eosinophils/100 WBC (Bld) 2.9 % Normal 0.0 - 6.0 [facility] Comment on above: Performed By: #### C BCDF #### [address] [address] Erythrocyte distribution width (RBC) [Ratio] 12.7 % Normal 11.5 - 14.5 [facility] Comment on above: Performed By: #### C BCDF #### [address] [address] Hematocrit (Bld) [Volume fraction] 39.5 % Normal 36.0 - 46.0 [facility] Comment on above: Performed By: #### C BCDF #### [address] [address] Hemoglobin (Bld) [Mass/Vol] 13.4 g/dL Normal 12.0 - 16.0 [facility] Comment on above: Performed By: #### C BCDF #### [address] [address] Lymphocytes (Bld) [#/Vol] 3.00 10*3/uL Normal 1.20 - 4.80 [facility] Comment on above: Performed By: #### C BCDF #### [address] [address] Lymphocytes/100 WBC (Bld) 41.3 % Normal 13.0 - 44.0 [facility] Comment on above: Performed By: #### C BCDF #### [address] [address] MCHC (RBC) [Mass/Vol] 33.9 g/dL Normal 32.0 - 36.0 [facility] Comment on above: Performed By: #### C BCDF #### [address] [address] MCV (RBC) [Entitic vol] 88 fL Normal 80 - 100 [facility] Comment on above: Performed By: #### C BCDF #### [address] [address] Monocytes (Bld) [#/Vol] 0.52 10*3/uL Normal 0.10 - 1.00 [facility] Comment on above: Performed By: #### C BCDF #### [address] [address] Monocytes/100 WBC (Bld) 7.2 % Normal 2.0 - 10.0 [facility] Comment on above: Performed By: #### C BCDF #### [address] [address] Neutrophils (Bld) [#/Vol] 3.46 10*3/uL Normal 1.20 - 7.70 [facility] Comment on above: Performed By: #### C BCDF #### [address] [address] Neutrophils/100 WBC (Bld) 47.5 % Normal 40.0 - 80.0 [facility] Comment on above: Performed By: #### C BCDF #### [address] [address] NUCLEATED RBC 0.0 /100 WBC Normal 0.0 - 0.0 [facility] Comment on above: Performed By: #### C BCDF #### [address] [address] Platelets (Bld) [#/Vol] 266 10*3/uL Normal 150 - 450 [facility] Comment on above: Performed By: #### C BCDF #### [address] [address] RBC 4.49 x10E12/L Normal 4.00 - 5.20 [facility] Comment on above: Performed By: #### C BCDF #### [address] [place] [address] WBC (Bld) [#/Vol] 7.3 10*3/uL Normal 4.4 - 11.3 [facility] Comment on above: Performed By: #### C BCDF #### [facility] [address] [place] [address] MAMM DIGITAL SCRN BILATERALo n 02-10-2021 MAMM DIGITAL SCRN BILATERAL SCREENING BILATERAL DIGITAL MAMMOGRAM Clinical Data: Screening. Remote left breast benign excisional biopsy. Comparison: None available. Mammographic findings: The breasts are heterogeneously dense, which may obscure small masses. No suspicious masses or suspicious calcifications are identified in either breast. This examination was reviewed with the aid of CAD (computer assisted detection). IMPRESSION AND RECOMMENDATION: No mammographic evidence of malignancy. Recommend annual screening mammography in one year or sooner if clinically indicated. BI-RADS Category 1: Negative YOUR MAMMOGRAM DEMONSTRATES THAT YOU HAVE DENSE BREAST TISSUE, WHICH COULD HIDE ABNORMALITIES. DENSE BREAST TISSUE, IN AND OF ITSELF, IS A RELATIVELY COMMON CONDITION. THEREFORE, THIS INFORMATION IS NOT PROVIDED TO CAUSE UNDUE CONCERN; RATHER, IT IS TO RAISE YOUR AWARENESS AND PROMOTE DISCUSSION WITH YOUR HEALTHCARE PROVIDER REGARDING THE PRESENCE OF DENSE BREAST TISSUE IN ADDITION TO OTHER RISK FACTORS. Electronically signed by: Ashwin Armijo MD 02/10/2021 8:55 AM CDT Technologist: CD Dictated By: ASHWIN ARMIJO MD Signed By: ASHWIN ARMIJO MD Signed Out: 02/10/21 18:21:51 Normal [facility] Hematologyon 03-20-2019 Hematocrit Volume Fraction (Bld) 40.5 % See Below [facility] Work Phone: Comment on above: Reference Range: 36. 0 - 46.0 Hemoglobin mass conc (Bld) 13.3 g/dL See Below [facility] Work Phone: Comment on above: Reference Range: 12. 0 - 16.0 MCV Entitic volume (RBC) 94 fL 80 - 100 [facility] Work Phone: Platelets #/vol (Bld) 252 {x10E9/L} 150 - 450 [facility] Work Phone: RBC #/vol (Bld) 4.33 {x10E12/L} See Below [facility] [employer]St[employer]w Work Phone: Comment on above: Reference Range: 4.0 0 - 5.20 WBC #/vol (Bld) 0.0 {/100_WBC} 0.0-0.0 [facility] [employer] Work Phone: WBC #/vol (Bld) 6.6 {x10E9/L} 4.4 - 11.3 [facility] [employer] Work Phone: IO Hgb A1Con 03-20-2019 HbA1c (Bld) [Mass fraction] 7.1 % 4.4-6.4% [facility] [address] 1056 Work Phone: Lipid Panelon 03-20-2019 Cholesterol in HDL mass conc 35.3 mg/dL Abnormal [facility] [address] Work Phone: Comment on above: . AGE VERY LOW LOW N ORMAL HIGH 0-19 Y < 35 < 40 40-45 ---- 20- 24 Y ---- < 40 >45 ---- >24 Y ---- < 40 40-60 >60. Cholesterol in LDL mass conc 86 mg/dL 0 - 99 [facility] [address] Work Phone: Comment on above: . NEAR BORD AGE JOHNATHON RABLE OPTIMAL HIGH HIGH VERY HIGH 0-19 Y 0 - 109 --- 110-129 >/= 130 ---- 20-24 Y 0 - 119 --- 120-159 >/= 160 ---- >24 Y 0 - 99 100-129 130-159 160-189 >/=190. Cholesterol mass conc 173 mg/dL 0 - 199 [facility] [address] 105 Work Phone: Comment on above: . AGE DESIRABLE BORD ALAYNA HIGH HIGH 0-19 Y 0 - 169 170 - 199 >/= 200 20-24 Y 0 - 189 190 - 224 >/= 225 >24 Y 0 - 199 200 - 239 >/= 240 All ranges are based on fasting samples. Specific therapeutic targets will vary based on patient-specific cardiac risk.. Pediatric guidelines reference:Pediatrics 2011, 128(S5). Adult guidelines reference: NCEP ATPIII Guidelines, EMELI 2001, 258:2486-97. Venipuncture immediately after or during the administration of Metamizole may lead to falsely low results. Testing should be performed immediately prior to Metamizole dosing. Cholesterol non HDL mass conc 138 mg/dL [facility] [address] Work Phone: Comment on above: AGE DESIRABLE BORDER LINE HIGH HIGH VERY HIGH 0-19 Y 0 - 119 120 - 144 >/= 145 >/= 160 20-24 Y 0 - 149 150 - 189 >/= 190 ---- >24 Y 30 MG/DL ABOVE LDL CHOLESTEROL GOAL. Cholesterol.total/Ch olesterol in HDL mass ratio 4.9 {ratio} [facility] [address] Work Phone: Comment on above: REF VALUESDESIRABLE < 3.4HIGH RISK > 5.0 Triglyceride mass conc 261 mg/dL above high threshold 0 - 149 [facility] [address] Work Phone: Comment on above: . AGE DESIRABLE BORD ALAYNA HIGH HIGH VERY HIGH 0 D-90 D 19 - 174 ---- ---- ----91 D- 9 Y 0 - 74 75 - 99 >/= 100 ---- 10-19 Y 0 - 89 90 - 129 >/= 130 ---- 20-24 Y 0 - 114 115 - 149 >/= 150 ---- >24 Y 0 - 149 150 - 199 200- 499 >/= 500. Venipuncture immediately after or during the administration of Metamizole may lead to falsely low results. Testing should be performed immediately prior to Metamizole dosing. Lipid Panel 52 mg/dL above high threshold 0 - 40 [facility] [address] Work Phone: Metabolic Panelon 03-20-2019 ALP enzyme act/vol 63 U/L 33 - 110 [facility] [address] Work Phone: Anion gap molar conc 13 mmol/L 10 - 20 [facility] 1057 Work Phone: Bilirubin mass conc 0.4 mg/dL 0.0 - 1.2 [facility] 10[address] Work Phone: Calcium mass conc 9.8 mg/dL 8.6 - 10.6 [facility] 10[address] Work Phone: Chloride molar conc 99 mmol/L 98 - 107 [facility] [address] Work Phone: CO2 molar conc 34 mmol/L above high threshold 21 - 32 [facility] [address] Work Phone: Creatinine mass conc 0.87 mg/dL See Below -[facility] a 1057 Work Phone: Comment on above: Reference Range: 0.5 0 - 1.05 Glucose mass conc 152 mg/dL above high threshold 74 - 99 [facility] a 1057 Work Phone: Potassium molar conc 3.7 mmol/L 3.5 - 5.3 MP[facility] 1057 Work Phone: Protein mass conc 7.2 g/dL 6.4 - 8.2 [facility] a 1057 Work Phone: Sodium molar conc 142 mmol/L 136 - 145 [facility] a 1057 Work Phone: Urea nitrogen mass conc 18 mg/dL 6 - 23 [facility] a 1057 Work Phone: Otheron 03-20-2019 Albumin Bromocresol purple (BCP) dye binding method mass conc 4.3 g/dL 3.4 - 5.0 [facility] a 1057 Work Phone: ALT With P-5'-P enzyme act/vol 46 U/L above high threshold 7 - 45 [facility] a 1057 Work Phone: Comment on above: Patients treated wit h Sulfasalazine may generate falsely decreased results for ALT. AST With P-5'-P enzyme act/vol 32 U/L 9 - 39 [facility] a 1057 Work Phone: Erythrocyte distribution width Ratio (RBC) 13.2 % See Below [facility] Janette [facility] dview Work Phone: Comment on above: Reference Range: 11. 5 - 14.5 MCHC mass conc (RBC) 32.8 g/dL See Below -[facility] Work Phone: Comment on above: Reference Range: 32. 0 - 36.0 >60 >60 [facility] a 1057 Work Phone: Comment on above: CALCULATIONS OF LUIS MATED GFR ARE PERFORMED USING THE MDRD STUDY EQUATION FOR THE IDMS-TRACEABLE CREATININE METHODS. CLIN CHEM 2007;[id number] T4 - Free Thyroxine, Serumon 03-20-2019 T4 free mass conc 1.08 ng/dL See Below [facility] a 3396 Work Phone: Comment on above: Reference Range: 0.7 8 - 1.48 Thyroxine Free testing is performed using different testing methodology at [facility] than at other [facility]. Direct result comparisons should only be made within the same method.. Patients receiving more than 5 mg/day of biotin may have interference in test results. A sample should be taken no sooner than eight hours after previous dose. Contact [phone] for additional information. TSH - Thyroid Stimulating Ho rmone, Serumon 03-20-2019 Thyrotropin Qn 3.22 {mIU/L} See Below [facility] a 2372 Work Phone: Comment on above: Reference Range: 0.4 4 - 3.98 TSH testing is performed using different testing methodology at [facility] than at other [facility]. Direct result comparisons should only be made within the same method.. Patients receiving more than 5 mg/day of biotin may have interference in test results. A sample should be taken no sooner than eight hours after previous dose. Contact [phone] for additional information. Vital Signs Date Time Vital Sign Value Performing Clinician Jorge duong 05-12-2023 09:24-0400 Body height 185.4 cm Pacc 1 Work Phone: [facility] 05-12-2023 09:24-0400 Body temperature 98.2 [degF] Pacc 1 Work Phone: [facility] 05-12-2023 09:24-0400 Body weight 91.17 kg Pacc 1 Work Phone: [facility] 05-12-2023 09:24-0400 Diastolic blood pressure 79 mm[Hg] Pac 1 Work Phone: [facility] 05-12-2023 09:24-0400 Heart rate 75 /min Pacc 1 Work Phone: [facility] 05-12-2023 09:24-0400 Respiratory rate 18 /min Pacc 1 Work Phone: [facility] 05-12-2023 09:24-0400 SaO2% (BldA) [Mass fraction] 95 % Pacc 1 Work Phone: [facility] 05-12-2023 09:24-0400 Systolic blood pressure 136 mm[Hg] Pacc 1 Work Phone: [facility] 05-07-2023 14:25-0400 Diastolic blood pressure 66 mm[Hg] Dana Goyal MD Work Phone: [facility] 05-07-2023 14:25-0400 Heart rate 68 /min Dana Goyal MD Work Phone: [facility] 05-07-2023 14:25-0400 Systolic blood pressure 120 mm[Hg] Dana Goyal MD Work Phone: [facility] 03-20-2019 11:15-0400 BMI (Body Mass Index) 25.46 kg/m2 Collins Savage [facility] Sa tony & rafaele [facility] 1057 Work Phone: 03-20-2019 11:15-0400 Body Temperature 98.7 [degF] Collins Savage [facility] Ely is [facility] 1057 Work Phone: 03-20-2019 11:15-0400 Body weight 87.54 kg Collins Savage [facility] Sarporsha s [facility] 1057 Work Phone: 03-20-2019 11:15-0400 BP Diastolic 84 mm[Hg] Collins Savage [facility] Bulmaro s & [facility] 1057 Work Phone: 03-20-2019 11:15-0400 BP Systolic 126 mm[Hg] Collins Savage [facility] Saridaki s [facility] 1057 Work Phone: 03-20-2019 11:15-0400 BSA (Body Surface Area) 2.12 m2 Collins Chamberlainlake [facility] Saridakis [facility] 1057 Work Phone: 03-20-2019 11:15-0400 Height 185.42 cm Collins Monaejessicaalberlake [facility] Saridaki s [facility] 1057 Work Phone: 03-20-2019 11:15-0400 Pulse (Heart Rate) 71 /min Collins Monaenavin [facility] Escobar akis [facility] 1057 Work Phone: 03-20-2019 11:15-0400 Pulse Oximetry 96 % Collins Monaenavin [facility] Saridaki s [facility] 1057 Work Phone: 03-20-2019 11:15-0400 Respiratory Rate 14 /min Collisn Chamberlain[place] [facility] Saridak is [facility] 1057 Work Phone: 03-20-2019 11:15-0400 Weight 87.54 kg Collins Chamberlainlake [facility] Saridaki s [facility] 1057 Work Phone: Encounters Encounter Date Encounter Type Care Provider Facility Start: 03-13-2024 End: 03-14-2024 ambulatory COLLINS ANDREWS [facility] Start: 03-09-2024 End: 03-09-2024 ambulatory Zuhair Grubbs Facility:[facility] Start: 03-09-2024 End: 03-09-2024 ambulatory DPM Zhuair Grubbs Work Phone: [facility] Work Phone: Start: 03-09-2024 End: 03-09-2024 Departed Referred DPM Zuhair Grubbs Work Phone: [facility] Start: 02-28-2024 Refill Macario Santos DPM Work Phone: Orthopedics Comment on above: Refill Request Start: 01-25-2024 Refill Macario Armstrongerty DPM Work Phone: Orthopedics Comment on above: Refill Request Start: 01-17-2024 End: 01-17-2024 ambulatory MACARIO SANTOS Facility:[facility] Start: 01-10-2024 Refill Macario Armstrongerty DPM Work Phone: Orthopedics Comment on above: Refill Request Start: 12-29-2023 Refill Macario Armstrongerty DPM Work Phone: Medical Records Comment on above: Refill Request Start: 12-08-2023 Refill Macario Armstrongerty DPM Work Phone: Medical Records Comment on above: Refill Request Start: 11-26-2023 End: 11-27-2023 ambulatory [facility] Start: 11-25-2023 End: 11-25-2023 ambulatory MACARIO SANTOS Facility:[facility] Start: 11-10-2023 End: 11-10-2023 ambulatory [facility] Facility:[facility] Start: 11-03-2023 Encounter for other preprocedural examination [facility]ATSON TOM [facility] Start: 11-03-2023 End: 11-03-2023 ambulatory MACARIO SANTOS Facility:[facility] Start: 10-25-2023 Refill Macario Armstrongerty DPM Work Phone: Orthopedics Comment on above: Refill Request Start: 10-25-2023 Refill Macario Armstrongerty DPM Work Phone: Orthopedics Comment on above: Refill Request Start: 10-18-2023 End: 10-19-2023 ambulatory [facility] Facility:[facility] Start: 10-14-2023 End: 10-14-2023 ambulatory WATSONIRENE SANTOS Facility:[facility] Start: 10-11-2023 End: 10-11-2023 ambulatory Nikki Kearney RT(R) Radiology Comment on above: Radiology XR Start: 10-11-2023 Patient encounter procedure Nikki Christel RT(R) [facility] Start: 09-29-2023 Refill Macario Santos DPM Work Phone: Orthopedics Comment on above: Refill Request Start: 09-27-2023 ambulatory Macario Santos DPM Work Phone: Orthopedics Comment on above: Updated X-rays Start: 09-27-2023 E-mail encounter fro m caregiver Macario Santos DPM Work Phone: [facility] Start: 09-06-2023 End: 09-06-2023 ambulatory Gia Kilgore RT(R) Radiology Comment on above: Radiology XR Start: 09-06-2023 End: 09-06-2023 Patient encounter procedure Gia Kilgore RT(R) [facility] Comment on above: Diabetes mellitus du e to underlying condition with diabetic autonomic neuropathy, with long-term current use of insulin (HCC) (Primary Dx); Post-op pain; Charcot ankle, right; Osteonecrosis (HCC) Start: 08-05-2023 End: 08-05-2023 ambulatory Rosie Elizondo RT(R) Radiology Comment on above: Radiology XR Start: 08-05-2023 Patient encounter procedure Rosie Elizondo RT(R) [facility] Start: 07-28-2023 Orders Only Macario Santos DPM Work Phone: [facility] [place] Comment on above: Disease of bone (Rima teena Dx) Start: 07-21-2023 Refill Macario Santos DPM Work Phone: [facility] Adult Comment on above: Refill Request Start: 07-07-2023 Refill Macario Santos DPM Work Phone: Orthopedics Start: 07-02-2023 End: 07-02-2023 ambulatory MACARIO SANTOS Facility:[facility] Start: 07-02-2023 End: 07-02-2023 Patient encounter procedure Macario Santos DPM Work Phone: [facility] Comment on above: Disorder of bone (Pr imary Dx); Charcot ankle, right Start: 07-02-2023 End: 07-02-2023 Subsequent hospital visit by physician X[facility] Comment on above: Charcot ankle, right [M14.671] Start: 06-17-2023 Refill Macario Santos DPM Work Phone: Medical Records Comment on above: Refill Request Start: 06-07-2023 End: 06-07-2023 ambulatory MACARIO SANTOS Facility:[facility] Start: 06-07-2023 End: 06-07-2023 ambulatory MACARIO SANTOS Facility:[facility] Start: 06-04-2023 Refill Macario Santos DPM Work Phone: Orthopedics Start: 06-02-2023 Refill Macario Santos DPM Work Phone: Medical Records Comment on above: Refill Request Start: 05-27-2023 End: 05-27-2023 ambulatory COLLINS ANDREWS Facility:[facility] Start: 05-27-2023 End: 05-27-2023 Patient encounter procedure Cast Tech Fairivew Work Phone: [facility] Comment on above: Charcot ankle, right (Primary Dx) Start: 05-26-2023 ambulatory Macario Santos DPM Work Phone: [facility] Comment on above: Cast is wet Start: 05-23-2023 Telephone encounter Kaylyn amin CRIMINALIST.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 Work Phone: [facility] Adult Comment on above: Follow Up Start: 05-19-2023 Telephone encounter Brigette mcdaniel RN [facility] Operating Room Comment on above: Follow Up Start: 05-17-2023 End: 05-18-2023 Evaluation and management of inpatient MACARIO SANTOS Facility:[facility] Start: 05-14-2023 Encounter for preprocedural cardiovascular examination MACARIO SANTOS [facility] Start: 05-14-2023 End: 05-14-2023 ambulatory DANATILA GOYAL Facility:[facility] Start: 05-14-2023 End: 05-14-2023 Patient encounter status Card Injection Molecular Imagi ng Start: 05-14-2023 End: 05-14-2023 Subsequent hospital visit by physician Card Injection Molecular Imaging Comment on above: Preoperative cardiov ascular examination [Z01.810] Start: 05-14-2023 End: 05-14-2023 ambulatory DANA JYOTSNA Facility:[facility] Start: 05-12-2023 End: 05-12-2023 Evaluation and management of inpatient MACARIO ODELL SANTOS Facility:[facility] Start: 05-12-2023 End: 05-12-2023 Admission to [facility] Pacc [place] 1 Work Phone: [facility] Start: 05-12-2023 End: 05-12-2023 [facility] Pacc [place] 1 Work Phone: Pre Anesthesia Comment on above: Pre-op exam (Primary Dx); Diabetes mellitus type 2 with neurological manifestations (HCC); Former smoker; Intermittent asthma without complication, unspecified asthma severity Start: 05-12-2023 End: 05-12-2023 Preprocedural examination done Pacc [place] 1 Work Phone: Pre Anesthesia Start: 05-07-2023 End: 05-07-2023 ambulatory DANATILA GOYAL Facility:[facility] Start: 05-07-2023 End: 05-07-2023 Office outpatient new 45 minutes Dana Goyal MD Work Phone: Cardiology Comment on above: PAD (peripheral charity ry disease) (HCC) (Primary Dx); Preoperative cardiovascular examination; Diabetes mellitus type 2 with neurological manifestations (HCC); Former smoker Start: 05-07-2023 End: 05-07-2023 Patient encounter status Dana Goyal MD Work Phone: Cardiology Start: 05-05-2023 Orders Only Macario Zuniga Tom DPM Work Phone: [facility] Comment on above: Osteonecrosis (HCC) (Primary Dx); Charcot ankle, right; Retained orthopedic hardware; Deformity of ankle joint, right Surgical Follow Up Refill Request Start: 05-03-2023 End: 05-03-2023 ambulatory MACARIO SANTOS Facility:[facility] Start: 05-03-2023 End: 05-03-2023 Patient encounter procedure Macario Santos DPM Work Phone: [facility] Comment on above: Osteonecrosis (HCC) (Primary Dx); Charcot ankle, right; Retained orthopedic hardware Start: 04-22-2023 End: 04-22-2023 ambulatory MACARIO SANTOS Facility:[facility] Start: 04-22-2023 End: 04-22-2023 ambulatory MACARIO SANTOS Facility:[facility] Start: 04-22-2023 End: 04-22-2023 Patient encounter procedure Macario Santos DPM Work Phone: Orthopedics Comment on above: Osteonecrosis (HCC) (Primary Dx); Charcot ankle, right Start: 04-20-2023 Orders Only Macario Santos DPM Work Phone: [facility] Comment on above: Charcot's joint of r ight ankle (Primary Dx); Leg abscess Start: 03-22-2023 End: 03-22-[address] Fang Rodriguez Facility:[id number] Start: 03-22-2023 End: 03-22-2023 Subsequent hospital visit by physician Fang Rodriguez DPM Work Phone: [facility] Comment on above: Subluxation of right ankle joint, initial encounter; Presence of other specified devices; Valgus deformity, not elsewhere classified, right ankle; Subluxation of right ankle joint, subsequent encounter; Subluxation of left ankle joint, subsequent encounter; Hyperlipidemia, unspecified; Type 2 diabetes mellitus with diabetic peripheral angiopathy without gangrene (CMS/HCC); Unspecified asthma, uncomplicated; Type 2 diabetes mellitus with diabetic polyneuropathy (CMS/HCC); Depression, unspecified; Irritable bowel syndrome without diarrhea; Hypothyroidism, unspecified; Unspecified osteoarthritis, unspecified site; Unspecified visual loss; Unspecified hearing loss, unspecified ear; Personal history of nicotine dependence; senior living (current) use of 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 drugs Start: 03-17-[address] Fang Rodriguez Facility:[id number] Start: 03-17-2023 Encounter for preprocedural laboratory examination Dr. Fang Rodriguez [facility] Start: 01-08-2023 End: 01-08-[address] Fang Rodriguez Facility:[id number] Start: 01-05-[address] Fang Rodriguez Facility:[id number] Start: 01-05-2023 Encounter for preprocedural cardiovascular examination Dr. Fang Rodriguez [facility] Start: 08-21-2022 End: 08-21-[address] Fang Rodriguez Facility:[id number] Start: 08-13-2022 End: 08-13-[address] Fang Rodriguez Facility:[id number] Start: 08-10-[address] Fang Rodriguez Facility:[id number] Start: 06-05-2022 End: 06-05-[address] Fang Rodriguez Facility:[id number] Start: 06-01-[address] Fang Rodriguez Facility:[id number] Start: 02-04-2021 End: 02-04-2021 Orders Only Fang Fan Work Phone: [facility] [place] Comment on above: Pain (Primary Dx) Start: 02-23-2020 Patient encounter procedure Collins Savage [facility] Janette & [facility] 105 Work Phone: Start: 11-20-2019 Patient encounter procedure Collins Savage [facility] Jan[facility] & [facility] 3887 Work Phone: Start: 08-16-2019 Patient encounter procedure Collins Savage [facility] Work Phone: Start: 06-22-2019 Patient encounter procedure Collins Savage [facility] 1057 Work Phone: Start: 03-20-2019 Patient encounter procedure Collins Savage & [facility] 1057 Work Phone: Start: 01-26-2019 Nursing evaluation o f patient and report Collins Savage [facility] Jan[facility] 1057 Work Phone: Start: 11-04-2018 Patient encounter procedure [facility] 1057 Work Phone: Start: 03-03-2018 Patient encounter procedure Collins Monaenavin [facility] 1057 Work Phone: Start: 03-03-2018 Ambulatory Collins Savage [facility] ity:PCG Start: 07-05-2017 Patient encounter procedure Collins Savage [facility] Jan[facility] 1057 Work Phone: Start: 03-25-2017 Patient encounter procedure Collins Chamber[place]lake [facility] Jan[facility] 1057 Work Phone: Encounter for gynecological examination (general) (routine) without abnormal findings Collins Chamberlainlake [facility] 1057 Work Phone: Procedures Date Procedure Procedure Detail Performing Clinician Start: 03-13-2024 Comprehensive metabo lic 2000 panel - Serum or Plasma COLLINS ANDREWS Start: 03-13-2024 Hemoglobin A1c/Hemoglobin.total in Blood COLLINS ANDREWS Start: 03-13-2024 Thyrotropin [Units/v olume] in Serum or Plasma COLLINS ANDREWS Start: 11-26-2023 Comprehensive metabo lic 2000 panel - Serum or Plasma COLLINS ANDREWS Start: 11-26-2023 Hemoglobin A1c/Hemoglobin.total in Blood COLLINS ANDREWS Start: 11-26-2023 Lipid panel COLLINS ROWELL Start: 11-26-2023 Thyrotropin [Units/v olume] in Serum or Plasma COLLINS ANDREWS Start: 11-26-2023 THYROXINE, FREE COLLINS ANDREWS Start: 07-27-2023 Lipid 1996 panel - [place] or Plasma Fang Jennifer DPM Work Phone: Start: 07-27-2023 Thyrotropin [Units/v olume] in Serum or Plasma Fang Jennifer DPM Work Phone: Start: 05-14-2023 Myocardial spect mul tiple studies Dana Goyal MD Work Phone: Start: 03-22-2023 Fluoroscopy up to 1 hour physician/qhp time Fang Garza Jennifer DPM Work Phone: Start: 03-22-2023 Glucose [Mass/volume ] in Serum or Plasma Fang Garza Jennifer DPM Work Phone: Start: 02-23-2020 Follow-up visit Start: 02-23-2020 CBC W Auto Different ial panel - Blood Collins Savage Start: 02-23-2020 Comprehensive metabo lic 2000 panel Collins Savage Start: 02-23-2020 Lipid panel Collins tony Start: 02-23-2020 TR HGBA1C Collins tony Start: 02-23-2020 TR Micro Albumin, Ur ine Quantitative Collins Savage Start: 02-23-2020 TR UA Collins tony Start: 11-21-2019 Follow-up visit Start: 08-16-2019 Follow-up visit Start: 06-22-2019 Follow-up visit Start: 03-20-2019 Follow-up visit Start: 03-20-2019 Assay of free thyroxine Collins Savage Start: 03-20-2019 Assay of thyroid stimulating hormone tsh Collins Savage Start: 03-20-2019 CBC W Auto Different ial panel - Blood Collins Savage Start: 03-20-2019 Collection venous bl ood venipuncture Collins Savage Start: 03-20-2019 Comprehensive metabo lic 2000 panel Collins Savage Start: 03-20-2019 Hemoglobin glycosylated a1c Collins Savage Start: 03-20-2019 Lipid panel Collins tony Start: 03-20-2019 MG Breast screening Keenan roberta Janette Start: 03-20-2019 Urine albumin quantitative Collins Savage Start: 03-20-2019 Urnls dip stick/tabl et rgnt auto w/o microscopy Collins Savage Start: 03-20-2019 Xray Bone Density, D exa 1 or More Sites Collins Savage Start: 03-25-2017 Microscopic observat ion [Identifier] in Cervix by Cyto stain Fang Rodriguez DPM Work Phone: History of Foot Surgery Khoa Savage Plan of Treatment Date Care Activity Detail Author Start: 03-19-2025 Screening for malignant neoplasm of colon [facility] Start: 11-26-2024 Hepatitis B surface antibody level LDL Cholesterol [facility] Start: 07-27-2024 Hepatitis B surface antibody level LDL Cholesterol [facility] Start: 07-27-2024 Lipid panel Lipid Panel [facility] Start: 07-27-2024 Thyroid stimulating hormone measurement TSH Level [facility] Start: 07-16-2024 Influenza vaccination Influenz a Vaccine (Season Ended) [facility] Start: 05-26-2024 Hemoglobin A1c measurement HbA1C [facility] Start: 05-07-2024 BP CONTROLLED (<130/80) BP CONTROLLED (<130/80) [facility] Start: 05-04-2024 Hemoglobin A1c measurement HbA1C [facility] Start: 01-25-2024 Hemoglobin A1c measurement HbA1C [facility] Start: 11-15-2023 Behavioral Health Screening Behavioral Health Screening [facility] Start: 11-15-2023 Depression Assessment Depression Ass essment [facility] Start: 10-26-2023 Hemoglobin A1c measurement Diabetes: Hemoglobin A1C [facility] Start: 07-16-2023 Covid-19 Vaccine ( season) Covid-19 Vaccine () [facility] Start: 07-16-2023 [facility] Start: 05-07-2023 End: 06-05-2024 NM CARDIAC PERF STRESS/PHARM NM CARDIAC PERF STRESS/PHARM Radiology Routine Preoperative cardiovascular examination Expected: 05/07/2023, Expires: 06/05/2024 [facility] Work Phone: Comment on above: Expected: 05/07/2023 , Expires: 06/05/2024 Start: 05-07-2023 End: 05-07-2024 PVR LEG [facility] PVR LEG [facility] Vascular Lab Routine PAD (peripheral artery disease) (HCC) Expected: 05/07/2023, Expires: 05/07/2024 [facility] Work Phone: Comment on above: Expected: 05/07/2023 , Expires: 05/07/2024 Start: 05-07-2023 End: 05-07-2024 US LEG ARTERIAL PERIPH [facility] US LEG ARTERIAL PERIPH [facility] Vascular Lab Routine PAD (peripheral artery disease) (HCC) Expected: 05/07/2023, Expires: 05/07/2024 [facility] Work Phone: Comment on above: Expected: 05/07/2023 , Expires: 05/07/2024 Start: 11-15-2022 DEPRESSION ASSESSMENT DEPRESSION ASS ESSMENT [facility] Start: 2021 Hepatitis B Vaccine (1 of 3 - Risk 3-dose series) Hepatitis B Vaccine (1 of 3 - Risk 3-dose series) [facility] Start: 2021 RSV Vaccine (1 - 1-dose 60+ series) RSV Vaccine (1 - 1-dose 60+ series) [facility] Start: 07-16-2020 Influenza vaccination INFLUENZA (#1) [facility] Start: 03-25-2020 Screening for malignant neoplasm of [facility] Start: 02-23-2020 [facility] Ilana tavares [facility] 1058 Work Phone: Start: 09-20-2019 Hemoglobin A1c/Hemoglobin.total in Blood HBA1C [facility] Start: 03-20-2019 MG Breast screening Mamm - Scr eening Mammogram w/ Tomosynthesis [facility] 105 Work Phone: Start: 03-20-2019 Xray Bone Dens ity, Dexa 1 or More Sites [facility] 1974 Work Phone: Start: 10-13-2014 HbA1c (Bld) [Mass fraction] HBA1C [facility] Start: 2011 Screening for malignant neoplasm of colon [facility] Start: 2011 SHINGRIX VACCINE (1 of 2) SHINGRIX VACCINE (1 of 2) [facility] Start: 2011 Zoster Vaccines (1 o f 2) Zoster Vaccines (1 of 2) [facility] Start: 2006 COLOGUARD (FIT-DNA) COLOGUARD (FIT-D NA) [facility] Start: 2006 Colonoscopy COLONOSCOPY [facility] Start: 2006 COLORECTAL CANCER SCREENING COLORECTAL CANCER SCREENING [facility] Start: [address] COLONOGRAPHY [facility] Start: 2006 FECAL OCCULT BLOOD FECAL OCCULT BLOO D [facility] Start: 2006 Screening for malignant neoplasm of colon [facility] Start: 2006 SIGMOIDOSCOPY SIGMOIDOSCOPY [facility] Start: 2003 PAP TESTING PAP TESTING [facility] Start: 2001 Mammography [facility] Start: 2001 Screening for malignant neoplasm of breast [facility] Start: 1991 HPV TESTING HPV TESTING [facility] Start: 1991 Screening for malignant neoplasm of cervix HPV Testing [facility] Start: 1983 DTaP/Tdap/Td Vaccine s (1 - Tdap) DTaP/Tdap/Td Vaccines (1 - Tdap) [facility] Start: 1982 PAP TESTING PAP TESTING [facility] Start: 1982 Screening for malignant neoplasm of cervix [facility] Start: 02-08-1980 Urine microalbumin profile [facility] Start: 1979 ANNUAL PCP TEAM CHRONIC DISEASE VISIT ANNUAL PCP TEAM CHRONIC DISEASE VISIT [facility] Start: 1979 BP CONTROLLED (<130/80) BP CONTROLLED (<130/80) [facility] Start: 1979 Hepatitis B surface antibody level LDL CHOLESTEROL [facility] Start: 1979 HEPATITIS C SCREENING HEPATITIS C [facility] Start: 1979 Hepatitis C screening Hepatitis C [facility] Start: 1979 HIV SCREENING HIV SCREENING [facility] Start: 1979 HIV screening HIV Screening [facility] Start: 1979 SPIROMETRY SPIROMETRY [facility] Start: 1977 ONE PNEUMOVAX PRIOR TO AGE 65 ONE PNEUMOVAX PRIOR TO AGE 65 [facility] Start: 1973 Adult depression screening assessment DEPRESSION SCREENING [facility] Start: 1971 [object Object] DIABETIC FOOT EXAM C [facility] Start: 1971 Diabetic foot examination [facility] Start: 1971 Glaucoma screening [facility] Start: 1971 Hepatitis B screening URINE ALBUMIN:CREATININE RATIO [facility] Start: 1971 Hepatitis C antibody , confirmatory test DILATED RETINAL EXAM [facility] Start: 1967 PNEUMOCOCCAL (1 - PCV) PNEUMOCOCCAL (1 - PCV) [facility] Start: 1967 Pneumococcal vaccination [facility] Start: 1967 Pneumococcal Vaccine : Pediatrics (0 to 5 Years) and At-Risk Patients (6 to 64 Years) (1 - PCV) Pneumococcal Vaccine: Pediatrics (0 to 5 Years) and At-Risk Patients (6 to 64 Years) (1 - PCV) [facility] Start: 1962 MMR Vaccines (1 of 1 - Standard series) MMR Vaccines (1 of 1 - Standard series) [facility] Start: 1961 COVID-19 VACCINE (#1) COVID-19 VACCI NE (#1) [facility] Start: 1961 HIV screening HIV Screening [facility] Start: 1961 Screening for malignant neoplasm of colon [facility] Start: 1961 Yearly Adult Physical Yearly Adult P hysical [facility] End: 07-31-2024 MRI ANKLE WO IVCON LEFT MRI ANKLE WO IVCON LEFT Radiology Routine Disorder of bone 1 Occurrences starting 07/02/2023 until 07/31/2024 [facility] Work Phone: Comment on above: 1 Occurrences starti ng 07/02/2023 until 07/31/2024 End: 03-06-2022 Radex ankle complete minimum 3 views XR ANKLE GENERAL 3V AP/LAT/OBL BILAT Radiology Routine Pain 1 Occurrences starting 02/05/2021 until 03/06/2022 [facility] Comment on above: 1 Occurrences starti ng 02/05/2021 until 03/06/2022 End: 03-06-2022 Radex foot complete minimum 3 views XR FOOT GENERAL 3V AP/LAT/OBL RT Radiology Routine Pain 1 Occurrences starting 02/05/2021 until 03/06/2022 [facility] Comment on above: 1 Occurrences starti ng 02/05/2021 until 03/06/2022 End: 07-31-2024 XR ANKLE GENERAL 3V AP/LAT/OBL LEFT XR ANKLE GENERAL 3V AP/LAT/OBL LEFT Radiology Routine Disorder of bone 1 Occurrences starting 07/02/2023 until 07/31/2024 [facility] Work Phone: Comment on above: 1 Occurrences starti ng 07/02/2023 until 07/31/2024 End: 05-19-2024 XR ANKLE GENERAL 3V AP/LAT/OBL RIGHT XR ANKLE GENERAL 3V AP/LAT/OBL RIGHT Radiology Routine Charcot's joint of right ankle 1 Occurrences starting 04/20/2023 until 05/19/2024 [facility] Work Phone: Comment on above: 1 Occurrences starti ng 04/20/2023 until 05/19/2024 End: 07-03-2024 XR ANKLE GENERAL 3V AP/LAT/OBL RIGHT XR ANKLE GENERAL 3V AP/LAT/OBL RIGHT Radiology Routine Charcot ankle, right 1 Occurrences starting 06/04/2023 until 07/03/2024 [facility] Work Phone: Comment on above: 1 Occurrences starti ng 06/04/2023 until 07/03/2024 XR ANKLE GENERAL 3V AP/LAT/OBL RIGHT XR ANKLE GENERAL 3V AP/LAT/OBL RIGHT Radiology Routine Charcot ankle, right 07/02/2023 10:35 AM EDT [facility] Work Phone: End: 08-26-2024 XR ANKLE GENERAL 3V AP/LAT/OBL RIGHT XR ANKLE GENERAL 3V AP/LAT/OBL RIGHT Radiology Routine Disease of bone 1 Occurrences starting 07/28/2023 until 08/26/2024 [facility] Work Phone: Comment on above: 1 Occurrences starti ng 07/28/2023 until 08/26/2024 End: 09-28-2024 XR ANKLE GENERAL 3V AP/LAT/OBL RIGHT XR ANKLE GENERAL 3V AP/LAT/OBL RIGHT Radiology Routine Diabetes mellitus due to underlying condition with diabetic autonomic neuropathy, with long-term current use of insulin (HCC) 1 Occurrences starting 08/30/2023 until 09/28/2024 [facility] Work Phone: Comment on above: 1 Occurrences starti ng 08/30/2023 until 09/28/2024 XR ANKLE GENERAL 3V AP/LAT/OBL RIGHT XR ANKLE GENERAL 3V AP/LAT/OBL RIGHT Radiology Routine Diabetes mellitus due to underlying condition with diabetic autonomic neuropathy, with long-term current use of insulin (HCC) 09/06/2023 1:28 PM EDT [facility] Work Phone: End: 10-05-2024 XR FOOT GENERAL 3V AP/LAT/OBL BILATERAL XR FOOT GENERAL 3V AP/LAT/OBL BILATERAL Radiology Routine Diabetes mellitus due to underlying condition with diabetic autonomic neuropathy, with long-term current use of insulin (HCC) 1 Occurrences starting 09/06/2023 until 10/05/2024 [facility] Work Phone: Comment on above: 1 Occurrences starti ng 09/06/2023 until 10/05/2024 End: 05-19-2024 XR TIBIA FIBULA 2V AP/LAT LEFT XR TIBIA FIBULA 2V AP/LAT LEFT Radiology Routine Leg abscess 1 Occurrences starting 04/20/2023 until 05/19/2024 [facility] Work Phone: Comment on above: 1 Occurrences starti ng 04/20/2023 until 05/19/2024 [facility] Janette Roberto [facility] [address] Work Phone: [facility] NEGATED: Highlighted row has been ruled out! Planned Goals not documented [facility] V[facility] Work Phone: Payers Date Payer Category Payer Self-pay 2021 Unknown 2021 Unknown [id number] 2020 Medicaid MEDICAID [facility] MEDICAID [id number] 2020-Present Medicaid [id number] 2020 Medicaid MEDICAID [facility] MEDICAID [id number] 2020-Present [phone] [address] [place] [address] Medicaid [id number] 2020 Medicaid [id number] 2016 Medicare MEDICARE MEDICAR E A AND B [id number] 2016-Present [place] Medicare [id number] 2016 Medicare MEDICARE MEDICAR E A AND B [id number] 2016-Present [phone] [address] [address] [place] [address] Medicare [id number] 1961 Unknown [id number] 1961 Unknown [id number] 1961 Unknown [id number] 1961 Unknown [id number] 1961 Unknown [id number] 1961 Unknown [id number] 1961 Unknown [id number] 1961 Unknown [id number] 1961 Unknown [id number] 1961 Unknown [id number] 1961 Unknown [id number] Social History Date Type Detail Facility Start: 06-27-2014 End: 05-12-2023 Tobacco smoking status NJIS Former smoker [facility] End: 04-24-2009 History of tobacco use Current smoker [facility] End: 04-24-2009 History of tobacco use Cigarette Smoker [facility] Start: 06-27-2014 End: 05-07-2023 Cigarettes smoked current (pack per day) - Reported [facility] Start: 06-27-2014 End: 11-25-2023 Alcohol intake Current drinker of alcohol (finding) [facility] Start: 1960 Sex Assigned At Not on file [facility] Exposure to SARS-CoV-2 (event) Not sure [facility] Start: 1960 Sex Assigned At Female [facility] Start: 05-07-2023 End: 05-17-2023 Tobacco use panel [facility] National Score (1-100), lower number is lower risk 81 [facility] Start: 04-20-2023 Gender identity Identifies as female gender (finding) [facility] Tobacco smoking status NJIS Tobacco smoking consumption unknown [facility] Work Phone: Start: 12-20-2023 Alcohol Comment not on a weekly basi s [facility] NEGATED: Highlighted row - Former smoker MP- ChristaalberАлександр [facility] Work Phone: Medical Equipment Procedure Code Equipment Code Equipment Origin al Text Equipment Identifier Dates BD Insulin Syrin ge Ultrafine 29G X 1/2 1 ML FOUR TIMES DAILY. Quantity: 3 Refills: Cynthia Collins Savage DO Active 200 Miscellaneous Box FreeStyle Lancet s test 3 times daily as instructed Quantity: 1 Refills: Cynthia Collins Savage DO Start : 20-Mar-2019 Active 100 Unit Box Start: 03-20-2019 FreeStyle Lite T est In Vitro Strip TESTS 3 TIMES PER WEEK. Quantity: 1 Refills: Cynthia Collins Savage DO Start : 20-Mar-2019 Active 100 Strip Box Start: 03-20-2019 ReliOn Insulin Syringe 29G X 1/2 1 ML FOUR TIMES DAILY. Quantity: 2 Refills: Cynthia Collins Savage DO Start : 08-Mar-2014 Active 100 Unit Box Start: 03-08-2014 BD Insulin Syrin ge Ultrafine 29G X 1/2 1 ML FOUR TIMES DAILY. Quantity: 3 Refills: Cynthia Collins Savage DO Active 200 Miscellaneous Box FreeStyle Lancet s test 3 times daily as instructed Quantity: 1 Refills: Cynthia Collins Savage DO Start : 20-Mar-2019 Active 100 Unit Box Start: 03-20-2019 FreeStyle Lite T est In Vitro Strip TESTS 3 TIMES PER WEEK. Quantity: 1 Refills: Cynthia Collins Savage DO Start : 20-Mar-2019 Active 100 Strip Box Start: 03-20-2019 ReliOn Insulin Syringe 29G X 1/2 1 ML FOUR TIMES DAILY. Quantity: 2 Refills: Cynthia Collins Savage DO Start : 08-Mar-2014 Active 100 Unit Box Start: 03-08-2014 BD Insulin Syrin ge Ultrafine 29G X 1/2 1 ML FOUR TIMES DAILY. Quantity: 3 Refills: Collins Ruelas DO Active 200 Miscellaneous Box FreeStyle Lancet s test 3 times daily as instructed Quantity: 1 Refills: Cynthia Collins Savage DO Start : 20-Mar-2019 Active 100 Unit Box Start: 03-20-2019 FreeStyle Lite T est In Vitro Strip TESTS 3 TIMES PER WEEK. Quantity: 1 Refills: Cynthia Collins Savage DO Start : 20-Mar-2019 Active 100 Strip Box Start: 03-20-2019 ReliOn Insulin Syringe 29G X 1/2 1 ML FOUR TIMES DAILY. Quantity: 2 Refills: Cynthia Collins Savage DO Start : 08-Mar-2014 Active 100 Unit Box Start: 03-08-2014 BD Insulin Syrin ge Ultrafine 29G X 1/2 1 ML FOUR TIMES DAILY. Quantity: 3 Refills: Cynthia Collins Savage DO Active 200 Miscellaneous Box FreeStyle Lancet s test 3 times daily as instructed Quantity: 1 Refills: Cynthia Collins Savage DO Start : 20-Mar-2019 Active 100 Unit Box Start: 03-20-2019 FreeStyle Lite T est In Vitro Strip TESTS 3 TIMES PER WEEK. Quantity: 1 Refills: Cynthia Collins Savage DO Start : 20-Mar-2019 Active 100 Strip Box Start: 03-20-2019 ReliOn Insulin Syringe 29G X 1/2 1 ML FOUR TIMES DAILY. Quantity: 2 Refills: Cynthia Collins Savage DO Start : 08-Mar-2014 Active 100 Unit Box Start: 03-08-2014 BD Insulin Syrin ge Ultrafine 29G X 1/2 1 ML FOUR TIMES DAILY. Quantity: 3 Refills: Cynthia Collins Savage DO Active 200 Miscellaneous Box FreeStyle Lancet s test 3 times daily as instructed Quantity: 1 Refills: Cynthia Collins Savage DO Start : 20-Mar-2019 Active 100 Unit Box Start: 03-20-2019 FreeStyle Lite T est In Vitro Strip TESTS 3 TIMES PER WEEK. Quantity: 1 Refills: Cynthia Collins Savage DO Start : 20-Mar-2019 Active 100 Strip Box Start: 03-20-2019 ReliOn Insulin Syringe 29G X 1/2 1 ML FOUR TIMES DAILY. Quantity: 2 Refills: Cynthia Collins Savage DO Start : 08-Mar-2014 Active 100 Unit Box Start: 03-08-2014 BD Insulin Syrin ge Ultrafine 29G X 1/2 1 ML FOUR TIMES DAILY. Quantity: 3 Refills: Cynthia Collins Savage DO Active 200 Miscellaneous Box FreeStyle Lancet s test 3 times daily as instructed Quantity: 1 Refills: Cynthia Collins Savage DO Start : 20-Mar-2019 Active 100 Unit Box Start: 03-20-2019 FreeStyle Lite T est In Vitro Strip TESTS 3 TIMES PER WEEK. Quantity: 1 Refills: Cynthia Collins Savage DO Start : 20-Mar-2019 Active 100 Strip Box Start: 03-20-2019 ReliOn Insulin Syringe 29G X 1/2 1 ML FOUR TIMES DAILY. Quantity: 2 Refills: Cynthia Collins Savage DO Start : 08-Mar-2014 Active 100 Unit Box Start: 03-08-2014 ReliOn Insulin Syringe 31G X 5/16 1 ML use 4 times daily Quantity: 100 Refills: Cynthia Collins Savage DO Start : 20-Jun-2020 Active Start: 06-20-2020 BD Insulin Syrin ge Ultrafine 29G X 1/2 1 ML FOUR TIMES DAILY. Quantity: 3 Refills: Cynthia Collins Savage DO Active 200 Miscellaneous Box OneTouch Ultra B lue In Vitro Strip TEST TWICE DAILY. Refills: 0 Start : 10-Jul-2014 Active Start: 07-10-2014 BD Insulin Syrin ge Ultrafine 29G X 1/2 1 ML FOUR TIMES DAILY. Quantity: 3 Refills: Cynthia Collins Savage DO Active 200 Miscellaneous Box FreeStyle Lancet s test 3 times daily as instructed Quantity: 1 Refills: Cynthia Collins Savage DO Start : 20-Mar-2019 Active 100 Unit Box Start: 03-20-2019 FreeStyle Lite T est In Vitro Strip TESTS 3 TIMES PER WEEK. Quantity: 1 Refills: Cynthia Collins Savage DO Start : 20-Mar-2019 Active 100 Strip Box Start: 03-20-2019 ReliOn Insulin Syringe 29G X 1/2 1 ML FOUR TIMES DAILY. Quantity: 2 Refills: Cynthia Collins Savage DO Start : 08-Mar-2014 Active 100 Unit Box Start: 03-08-2014 BD Insulin Syrin ge Ultrafine 29G X 1/2 1 ML FOUR TIMES DAILY. Quantity: 3 Refills: Cynthia Collins Savage DO Active 200 Miscellaneous Box FreeStyle Lancet s test 3 times daily as instructed Quantity: 1 Refills: Cynthia Collins Savage DO Start : 20-Mar-2019 Active 100 Unit Box Start: 03-20-2019 FreeStyle Lite T est In Vitro Strip TESTS 3 TIMES PER WEEK. Quantity: 1 Refills: Collins Ruelas DO Start : 20-Mar-2019 Active 100 Strip Box Start: 03-20-2019 ReliOn Insulin Syringe 29G X 1/2 1 ML FOUR TIMES DAILY. Quantity: 2 Refills: Collins Ruelas DO Start : 08-Mar-2014 Active 100 Unit Box Start: 03-08-2014 Nxz-Og-J-Kind Implant - [id number] Start: 06-29-2011 Comment on above: Description: K-WIRE Sxu-Mq-L-Kind Implant - [id number] Start: 04-24-2014 Comment on above: Description: THREADE D GUIDE WIRE Screw Bn 2.4mm 3 0mm Ti Cmf Lag - [id number] Start: 06-29-2011 Comment on above: Description: OSTEOME D CANNULATED SCREW Screw Bn 4mm 44m m Lcp Ti St - [id number] Start: 04-24-2014 Phantom 2.0 Acti vcor Nil [id number] Start: 05-17-2023 Phantom Nail Crossing Screw 5.0mm X 26mm Length Headed [id number] Start: 05-17-2023 Graft, Flexigraf t, Hamstring, Smi Tendinosus, Frozen Case [id number] Start: 12-09-2021 Comment on above: Description: Convert ed from [facility]. Please see archived information for full log information. Paste Mix Plus, 5cc Case [id number] Start: 06-05-2022 Comment on above: Description: Convert ed from [facility]. Please see archived information for full log information. Bone, Cancellous , Crushed, .1-4mm 15cc, Freeze Dried Case [id number] Start: 08-13-2022 Comment on above: Description: Convert ed from [facility]. Please see archived information for full log information. Graft, Flexigraf t, Hamstring, Smi Tendinosus, Frozen Case [id number] Start: 08-21-2022 Comment on above: Description: Convert ed from [facility]. Please see archived information for full log information. 22 Mm Concave Re amer Case [id number] Start: 12-09-2021 Comment on above: Description: Convert ed from [facility]. Please see archived information for full log information. Dynaclip Procedu re Pack Case [id number] Start: 06-05-2022 Comment on above: Description: Convert ed from [facility]. Please see archived information for full log information. 2.7 Overdrill Ca se [id number] Start: 08-13-2022 Comment on above: Description: Convert ed from [facility]. Please see archived information for full log information. Quick Whip Stitc h Case [id number] Start: 08-21-2022 Comment on above: Description: Convert ed from [facility]. Please see archived information for full log information. Cement Simplex Gentamicin Bone High Viscosity 20ml Sterile 40gm - [id number] Start: 11-10-2023 Phantom Nail Crossing Screw 5.0mm X 32mm [id number] Start: 05-17-2023 Phantom Nail Calcaneus Screw Headless 7.2mm X 80mm [id number] Start: 05-17-2023 Phantom Nail Calcaneus Screw 7.2mm 85mm [id number] Start: 05-17-2023 Phantom Nail Crossing Screw Headed 5.0mm X 34mm Ns [id number] Start: 05-17-2023 Functional Status Date Assessment Result Facility NEGATED: Highlighted row Functional performance Functional status health issues are not documented [facility] [address] Work Phone: Mental Status Date Assessment Result Facility NEGATED: Highlighted row Cognitive function [Interpretation] Cognitive status health issues are not documented [facility] [address] Work Phone: Clinical Notes 05-06-2021 to 11-25-2023 Nikki Kearney, RT(R) - 10/11/2023 12:28 PM Macario Sykes DPM - 09/06/2023 2:17 PM Gia Pinzon, RT(R) - 09/06/2023 1:31 PM EDAugustineRosie, RT(R) - 08/05/2023 2:15 PM EDT Note Date & Type Note Facility 11-25-2023 Note HNO ID: [id number] Author: MACARIO SANTOS DPM Service: ? Author Type: Physician Type: Progress Notes Filed: 12/06/2023 12:47 Note Text: PODIATRIC MEDICINE AND SURGERY OFFICE NOTE Complaint: Right Charcot surgical referral HPI: This 63 year old female presents to the clinic today status post right TTC fusion. Patient has been weightbearing without any assistance and she feels clicking in her midfoot. 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 Patient denies any constitutional symptoms. Patient denies any calf or thigh pain. 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 numbness and tingling hands Snores Ulcer bilateral feet/ had for 2 years left foot and right foot for about 4 months / uses ointment to feet once a day. / ulcers are draining blood or no yellow or green draininage. Varicose veins Weakness arms and legs PAST SURGICAL HISTORY Procedure Laterality Date LIG/TRNSXJ FLP TUBE ABDL/VAG APPR UNI/BI Tubal ligation PAST SURGICAL HISTORY OF surgery to left foot x 5 PAST SURGICAL HISTORY OF right foot surgery x4-5 No current facility-administered medications for this visit. ALLERGIES Allergen Reactions Augmentin [Amoxicil* GI Upset Vomiting Codeine GI Upset Demerol [Meperidine* Other: See Comments patient unsure Doxycycline GI Upset Vomiting GI upset Morphine Itching FAMILY HISTORY Problem Relation Age of Onset Anesthesia Problems No Family History Social History Tobacco Use Smoking status: Former Packs/day: 1.50 Years: 10.00 Additional pack years: 0.00 Total pack years: 15.00 Types: Cigarettes Quit date: 04/24/2009 Years since quittin.5 Vaping Use Vaping Use: Never used Substance Use Topics Alcohol use: Yes Comment: not on a weekly basis Drug use: No Current Opioids Analgesic Opioid Agonists Start End traMADol (ULTRAM) 50 mg tablet 10/26/2023 -- Sig - Route: Take 1 tablet by mouth every 6 hours as needed for pain. for pain. - ORAL Analgesic Opioid Oxycodone Combinations Start End oxyCODONE-acetaminophen (PERCOCET) 5-325 mg tablet 11/22/2023 11/29/2023 Sig - Route: Take 1 tablet by mouth four times a day as needed for pain for up to 7 days. - ORAL Earliest Fill Date: 11/22/2023 Analgesic Opioid Oxycodone and Non-Salicylate Combinations Start End oxyCODONE-acetaminophen (PERCOCET) 5-325 mg tablet 11/22/2023 11/29/2023 Sig - Route: Take 1 tablet by mouth four times a day as needed for pain for up to 7 days. - ORAL Earliest Fill Date: 11/22/2023 CHAYITO Modifiable Risk Factors (MoRF) Obesity Unknown Risk High: BMI > 40 Moderate: BMI 30-40 Normal: BMI < 30 Diabetes Moderate Risk High: A1C > 8 Moderate: A1C 7-8 Normal: A1C < 7 Smoking normal High: Current smoker Normal: Non smoker Anemia normal High: Hgb < 11.5 (women) N/A: Hgb >= 11.5 (women) Nutritional Status normal High: Alb<3.4, or prealb<15, or serum transferrin<200, or total lymphocyte count<1500 Normal: normal labs Narcotics Use High Risk High:NarxCare >=300 Moderate: 100-299 Normal: 0-99 Obesity: height and/or weight are out of date (There is no height and/or weight reading in the past 365 days, so the below BMI readings may be inaccurate) BMI Readings from Last 3 Encounters: 11/03/23 : 26.32 kg/m? 05/18/23 : 28.56 kg/m? 05/12/23 : 26.52 kg/m? Diabetes: Well controlled - Marie has been diagnosed with Type 2 Diabetes. Her last Hemoglobin A1C was 6 (11/03/2023). NarxCare score NARX Narcotics: 401 (11/24/2023 1:49 PM) ------ REVIEW OF SYSTEMS: CONSTITUTIONAL: No fevers, chills, nightsweats, unintended weight loss HEENT: Denies frequent or severe headaches, nasal congestion/sinus symptoms, problematic allergy problems. EYES: No diplopia or blurry vision. CARDIOVASCULAR: No chest pain, dyspnea, palpitations, orthopnea, PND. PULM: No dyspnea, unexplained cough. GI: No dysphagia/odynophagia, problematic reflux, constipation, diarrhea, (more content not included)... [facility] 11-10-2023 Note HNO ID: [id number] Author: Donell Boateng Service: Pharmacy Author Type: ? Type: Plan of Care Filed: 11/11/2023 10:18 AM Note Text: PHARMACY BEDSIDE DELIVERY SERVICE Patient Name: Marie Sexton The marked outpatient medications were filled at [facility] pharmacy and picked up at the pharmacy by the pt daughter Brigette Medication List START taking these medications oxyCODONE-acetaminophen 5-325 mg tablet Commonly known as: PERCOCET Take 1 tablet by mouth four times a day as needed for pain for up to 7 days. CONTINUE taking these medications albuterol HFA 90 mcg/actuation inhaler Commonly known as: PROVENTIL HFA, VENTOLIN HFA Biotin 10,000 mcg Cap Cholecalciferol (Vitamin D3) 25 mcg (1,000 unit) Cap CINNAMON BARK-CHROMIUM PICOLIN ORAL fenofibrate nanocrystallized 145 mg tablet Commonly known as: TRICOR FLUoxetine 10 mg capsule Commonly known as: PROzac gabapentin 800 mg tablet Commonly known as: NEURONTIN HUMALOG MIX 75-25(U-100)INSULN SUBCUTANEOUS hydroCHLOROthiazide 25 mg tablet Insulin Syringe-Needle U-100 1 mL 29 gauge x 1/2 LANTUS U-100 INSULIN 100 unit/mL injection Generic drug: insulin glargine levothyroxine 100 mcg tablet Commonly known as: SYNTHROID meloxicam 15 mg tablet Commonly known as: MOBIC Take 1 tablet by mouth once daily metFORMIN 1,000 mg tablet Commonly known as: GLUCOPHAGE omega-3 acid ethyl esters 1 gram capsule Commonly known as: LOVAZA SYMBICORT 160-4.5 mcg/actuation inhaler Generic drug: budesonide-formoterol traMADol 50 mg tablet Commonly known as: ULTRAM Take 1 tablet by mouth every 6 hours as needed for pain. for pain. TURMERIC ORAL VITAMIN A ORAL VITAMIN B COMPLEX NO.12-NIACIN ORAL VITAMIN C ORAL VITAMIN K2 ORAL zolpidem 5 mg tablet Commonly known as: AMBIEN Take 1 tablet by mouth at bedtime as needed (for insomnia.). You might also be taking other medications not listed above. If you have questions about any of your other medications, talk to the person who prescribed them or your Primary Care Provider. Donell Boateng PAGER: [phone] November 11, 2023 10:18 AM [facility] 11-10-2023 Note HNO ID: [id number] Author: Olivia Faulkner APRN.MOLDING MACHINE TENDER Service: Anesthesiology Author Type: Nurse Account Financial Manager Type: Anesthesia Procedure Notes Filed: 11/10/2023 1:12 PM Note Text: ANESTHESIOLOGY PROCEDURE NOTE Airway General Information Procedure Start Time/Medication Administration: 11/10/2023 1:06 PM Patient location during procedure: OR Patient identity confirmed: arm band and patient Staffing MOLDING MACHINE TENDER: Olivia Faulkner APRN.MOLDING MACHINE TENDER Performed by: LYDIA Indications and Patient Condition Indications for airway management: anesthesia Preoxygenated: yes anesthesia circuit Patient position: sniffing Method: sleep Cricoid Pressure: No Manual In-Line Stabilization: No Difficult Mask: No Final Airway Details Final airway type: endotracheal airway Final Endotracheal Airway: ETT Cuffed: yes Successful intubation technique: direct laryngoscopy Devices used: intubating stylet Endotracheal tube insertion site: oral Blade: Karla Blade size: #4 ETT size (mm): 7.0 Measured from: gums Measurement (cm): 21 Placement verified by: chest auscultation and capnometry Cormack-Lehane Classification: grade I - full view of glottis Number of attempts at approach: 1 Failed airway: no Unrecognized esophageal intubation: no Airway not difficult SIGNATURE: Olivia Faulkner APRN.CRNA PATIENT NAME: Marie Sexton DATE: November 10, 2023 TIME: 1:11 PM CSN: [id number] [facility] 11-10-2023 Note HNO ID: [id number] Author: Dheeraj Rodrigues DO Service: Pain Management Author Type: Resident Type: Anesthesia Procedure Notes Filed: 11/10/2023 1:01 PM Note Text: Attestation signed by Ramiro Stanley DO at 11/10/2023 1:16 PM Attending Note TEACHING PHYSICIAN NOTE OF PERSONAL INVOLVEMENT IN CARE: I have personally seen and examined the patient and performed the medical decision-making components. I have reviewed the resident's documentation and verified the findings in the note as written. Any additions or changes have been made by myself. Signature: Ramiro Stanley DO Date: 11/10/2023 Time: 1:16 PM ANESTHESIOLOGY PROCEDURE NOTE Peripheral Nerve Block General Information Procedure Start Time/Medication Administration: 11/10/2023 12:34 PM Procedure End time: 11/10/2023 12:38 PM Patient location during procedure: pre-op Timeout Performed Pre-procedure: timeout performed Consent Obtained: Yes Patient identity confirmed: arm band and patient Reason for block: post-op pain management/at surgeon's request Staffing Anesthesiologist: Ramiro Stanley DO Resident: Dheeraj Rodrigues DO Performed by: anesthesiologist and resident Preparation Sterility Preparation: hand hygiene performed prior to procedure, surgical cap used, mask used, sterile drape used during line insertion, skin prep agent completely dried prior to procedure Site Prep: Chloraprep Pre-Procedure Neuro Exam Location: RLE Sensory: intact Motor: intact Procedure Details Patient Position: supine Monitoring: Pulse OX, EKG and NIBP Block Type Lower Extremity: popliteal Laterality: right Injection Technique: single-shot Ultrasound Guided: Yes Image in Chart: yes Local Infiltration: Yes Needle Needle Type: stimulating Needle Gauge: 22 G Needle Length: 100 mm Needle Localization: ultrasound Assessment Injection assessment: negative aspiration, no paresthesia on injection, incremental injection and local visualized surrounding nerve on ultrasound Post-Procedure Neuro Exam Expected Regional Anesthesia: Yes Medications Administered Ropivacaine (PF) 5 mg/mL (0.5 %) injection (NAROPIN), 20 mL Comments 4 mg decadron SIGNATURE: Dheeraj Rodrigues DO PATIENT NAME: April DATE: November 10, 2023 TIME: 1:00 PM CSN: [id number] [facility] 11-10-2023 Note HNO ID: [id number] Author: Dheeraj Rodrigues DO Service: Pain Management Author Type: Resident Type: Anesthesia Procedure Notes Filed: 11/10/2023 1:00 PM Note Text: Attestation signed by Ramiro Stanley DO at 11/10/2023 1:16 PM Attending Note TEACHING PHYSICIAN NOTE OF PERSONAL INVOLVEMENT IN CARE: I have personally seen and examined the patient and performed the medical decision-making components. I have reviewed the resident's documentation and verified the findings in the note as written. Any additions or changes have been made by myself. Signature: Ramiro Stanley DO Date: 11/10/2023 Time: 1:16 PM ANESTHESIOLOGY PROCEDURE NOTE Peripheral Nerve Block General Information Procedure Start Time/Medication Administration: 11/10/2023 12:34 PM Procedure End time: 11/10/2023 12:38 PM Patient location during procedure: OR Timeout Performed Pre-procedure: timeout performed Consent Obtained: Yes Patient identity confirmed: arm band and patient Reason for block: post-op pain management/at surgeon's request Staffing Anesthesiologist: Ramiro Stanley DO Resident: Dheeraj Rodrigues DO Performed by: anesthesiologist and resident Preparation Sterility Preparation: hand hygiene performed prior to procedure, surgical cap used, mask used, sterile drape used during line insertion, skin prep agent completely dried prior to procedure Site Prep: Chloraprep Pre-Procedure Neuro Exam Location: RLE Sensory: intact Motor: intact Procedure Details Patient Position: supine Monitoring: Pulse OX, EKG and NIBP Block Type Lower Extremity: distal femoral (adductor canal) Laterality: right Injection Technique: single-shot Ultrasound Guided: Yes Image in Chart: yes Local Infiltration: Yes Needle Needle Type: stimulating Needle Gauge: 22 G Needle Length: 100 mm Needle Localization: ultrasound Assessment Injection assessment: negative aspiration, no paresthesia on injection, incremental injection and local visualized surrounding nerve on ultrasound Post-Procedure Neuro Exam Expected Regional Anesthesia: Yes Medications Administered Ropivacaine (PF) 5 mg/mL (0.5 %) injection (NAROPIN), 20 mL Comments 4 mg decadron SIGNATURE: Dheeraj Rodrigues DO PATIENT NAME: Marie Sexton DATE: November 10, 2023 TIME: 12:57 PM CSN: [id number] [facility] 10-14-2023 Note HNO ID: [id number] Author: Cleo Aragon RT(R) Service: ? Author Type: Regulatory Affairs Intern Type: Progress Notes Filed: 10/14/2023 11:46 AM Note Text: Radiology Service Progress Note PATIENT NAME: Marie Sexton DATE OF SERVICE: October 14, 2023 TIME: 11:44 AM PATIENT IDENTITY VERIFICATION COMPLETED USING TWO (2) IDENTIFIERS: Name and Date of confirmed by patient verbally. FALL SCREENING: Has the patient had 2 falls in the last year or 1 fall with injury or currently using an Ambulatory Assistive Device (Walker, Cane, Wheelchair, Crutches, etc.)? No PATIENT GENDER DATA: Female. status: : No status: NO. PATIENT RELEVANT IMPLANT DATA REVIEWED: Not Applicable RADIOLOGY DEPARTMENT: CT; Exam(s) Completed: Right Ankle PERIPHERAL IV DATA: Not applicable SIGNED BY: RT Dev(R) October 14, 2023 11:44 AM [facility] 10-11-2023 Note HNO ID: [id number] Author: Macario Santos DPM Service: ? Author Type: Physician Type: Progress Notes Filed: 10/12/2023 1:49 PM Note Text: PODIATRIC MEDICINE AND SURGERY OFFICE NOTE Complaint: Right Charcot surgical referral HPI: This 63 year old female presents to the clinic today status post right TTC fusion. Patient has been weightbearing without any assistance and she feels clicking in her midfoot. Patient denies any constitutional symptoms. Patient denies any calf or thigh pain. 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 numbness and tingling hands Snores Ulcer bilateral feet/ had for 2 years left foot and right foot for about 4 months / uses ointment to feet once a day. / ulcers are draining blood or no yellow or green draininage. Varicose veins Weakness arms and legs PAST SURGICAL HISTORY Procedure Laterality Date LIG/TRNSXJ FLP TUBE ABDL/VAG APPR UNI/BI Tubal ligation PAST SURGICAL HISTORY OF surgery to left foot x 5 PAST SURGICAL HISTORY OF right foot surgery x2 No current facility-administered medications for this visit. ALLERGIES Allergen Reactions Augmentin [Amoxicil* GI Upset Vomiting Codeine GI Upset Demerol [Meperidine* Other: See Comments patient unsure Doxycycline GI Upset Vomiting GI upset Morphine Itching FAMILY HISTORY Problem Relation Age of Onset Anesthesia Problems No Family History Social History Tobacco Use Smoking status: Former Packs/day: 1.50 Years: 10.00 Additional pack years: 0.00 Total pack years: 15.00 Types: Cigarettes Quit date: 04/24/2009 Years since quittin.4 Substance Use Topics Alcohol use: Yes Comment: occasional Drug use: No Current Opioids Analgesic Opioid Agonists Start End traMADol (ULTRAM) 50 mg tablet 10/11/2023 -- Sig - Route: Take 1 tablet by mouth every 6 hours as needed for pain. for pain. - ORAL CHAYITO Modifiable Risk Factors (MoRF) Obesity Unknown Risk High: BMI > 40 Moderate: BMI 30-40 Normal: BMI < 30 Diabetes Moderate Risk High: A1C > 8 Moderate: A1C 7-8 Normal: A1C < 7 Smoking normal High: Current smoker Normal: Non smoker Anemia normal High: Hgb < 11.5 (women) N/A: Hgb >= 11.5 (women) Nutritional Status normal High: Alb<3.4, or prealb<15, or serum transferrin<200, or total lymphocyte count<1500 Normal: normal labs Narcotics Use High Risk High:NarxCare >=300 Moderate: 100-299 Normal: 0-99 Obesity: height and/or weight are out of date (There is no height and/or weight reading in the past 365 days, so the below BMI readings may be inaccurate) BMI Readings from Last 3 Encounters: 05/18/23 : 28.56 kg/m? 05/12/23 : 26.52 kg/m? 02/24/21 : 29.03 kg/m? Diabetes: Well controlled - April has been diagnosed with Type 2 Diabetes. Her last Hemoglobin A1C was 5.7 (04/12/2014). NarxCare score NARX Narcotics: 380 (10/11/2023 12:11 PM) --------- REVIEW OF SYSTEMS: CONSTITUTIONAL: No fevers, chills, nightsweats, unintended weight loss HEENT: Denies frequent or severe headaches, nasal congestion/sinus symptoms, problematic allergy problems. EYES: No diplopia or blurry vision. CARDIOVASCULAR: No chest pain, dyspnea, palpitations, orthopnea, PND. PULM: No dyspnea, unexplained cough. GI: No dysphagia/odynophagia, problematic reflux, constipation, diarrhea, changes in stool habits, hematochezia, melena. : No new urinary complaints, including dysuria, gross hematuria or pyuria. NEURO: No new balance problems, peripheral weakness/paresthesias or numbness of concern. MUSC-SKEL: No new joint pain, swelling, or erythema. PSY: No concerns regarding depression, anxiety or panic. INTEGUMENTARY: Skin changes as noted below. I have confirmed and edited as necessary, the PFSH and ROS obtained by others. OBJECTIVE: Patient is oriented to person, place, and time and is in no acute distress. Vascular Exam: Dorsalis Pedis pulses are palpable bilateral. Posterior Tibial pulses are palpable bilateral. Capillary r (more content not included)... [facility] 10-11-2023 Note HNO ID: [id number] Author: Nikki Kearney RT(R) Service: ? Author Type: Technologist Type: Progress Notes Filed: 10/11/2023 12:28 PM Note Text: Radiology Service Progress Note PATIENT NAME: Marie Sexton DATE OF SERVICE: October 11, 2023 TIME: 12:28 PM PATIENT IDENTITY VERIFICATION COMPLETED USING TWO (2) IDENTIFIERS: Name and Date of confirmed by patient verbally. FALL SCREENING: Has the patient had 2 falls in the last year or 1 fall with injury or currently using an Ambulatory Assistive Device (Walker, Cane, Wheelchair, Crutches, etc.)? No PATIENT GENDER DATA: Female. status: : No status: N/A PATIENT RELEVANT IMPLANT DATA REVIEWED: Not Applicable RADIOLOGY DEPARTMENT: General X-ray: Exam(s) Completed: Lower Extremity X-Ray(s): Feet, Bilateral and Wt. Bearing PERIPHERAL IV DATA: Not applicable SIGNED BY: RT Amelia(R) October 11, 2023 12:28 PM [facility] 10-11-2023 History of Present illness Narrative Radiology Service Progress Note PATIENT NAME: Marie Sexton DATE OF SERVICE: October 11, 2023 TIME: 12:28 PM PATIENT IDENTITY VERIFICATION COMPLETED USING TWO (2) IDENTIFIERS: Name and Date of confirmed by patient verbally. FALL SCREENING: Has the patient had 2 falls in the last year or 1 fall with injury or currently using an Ambulatory Assistive Device (Walker, Cane, Wheelchair, Crutches, etc.)? No PATIENT GENDER DATA: Female. status: : No status: N/A PATIENT RELEVANT IMPLANT DATA REVIEWED: Not Applicable RADIOLOGY DEPARTMENT: General X-ray: Exam(s) Completed: Lower Extremity X-Ray(s): Feet, Bilateral and Wt. Bearing PERIPHERAL IV DATA: Not applicable SIGNED BY: RT Amelia(R) October 11, 2023 12:28 PM documented in this encounter [facility] 09-06-2023 Note HNO ID: [id number] Author: Macario Santos DPM Service: ? Author Type: Physician Type: Progress Notes Filed: 09/07/2023 2:25 PM Note Text: PODIATRIC MEDICINE AND SURGERY OFFICE NOTE Complaint: Right Charcot surgical referral HPI: This 63 year old female presents to the clinic today status post right TTC fusion. Patient has been weightbearing without any assistance and she is doing well with this on the right side however states that she feels clicking in her midfoot. Reviewing her x-rays it appears that the plate has loosened that was previously placed by another surgeon. The patient also states that she had a cyst on her left tibia that had a piece of bone come out of it. She brought this to show me. Patient denies any constitutional symptoms. Patient denies any calf or thigh pain. 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 numbness and tingling hands Snores Ulcer bilateral feet/ had for 2 years left foot and right foot for about 4 months / uses ointment to feet once a day. / ulcers are draining blood or no yellow or green draininage. Varicose veins Weakness arms and legs PAST SURGICAL HISTORY Procedure Laterality Date LIG/TRNSXJ FLP TUBE ABDL/VAG APPR UNI/BI Tubal ligation PAST SURGICAL HISTORY OF surgery to left foot x 5 PAST SURGICAL HISTORY OF right foot surgery x2 No current facility-administered medications for this visit. ALLERGIES Allergen Reactions Augmentin [Amoxicil* GI Upset Vomiting Codeine GI Upset Demerol [Meperidine* Other: See Comments patient unsure Doxycycline GI Upset Vomiting GI upset Morphine Itching FAMILY HISTORY Problem Relation Age of Onset Anesthesia Problems No Family History Social History Tobacco Use Smoking status: Former Packs/day: 1.50 Years: 10.00 Additional pack years: 0.00 Total pack years: 15.00 Types: Cigarettes Quit date: 04/24/2009 Years since quittin.3 Substance Use Topics Alcohol use: Yes Comment: occasional Drug use: No Current Opioids Analgesic Opioid Agonists Start End traMADol (ULTRAM) 50 mg tablet 09/06/2023 -- Sig - Route: Take 1 tablet by mouth every 6 hours as needed for pain. - ORAL CHAYITO Modifiable Risk Factors (MoRF) Obesity Unknown Risk High: BMI > 40 Moderate: BMI 30-40 Normal: BMI < 30 Diabetes Moderate Risk High: A1C > 8 Moderate: A1C 7-8 Normal: A1C < 7 Smoking normal High: Current smoker Normal: Non smoker Anemia normal High: Hgb < 11.5 (women) N/A: Hgb >= 11.5 (women) Nutritional Status normal High: Alb<3.4, or prealb<15, or serum transferrin<200, or total lymphocyte count<1500 Normal: normal labs Narcotics Use High Risk High:NarxCare >=300 Moderate: 100-299 Normal: 0-99 Obesity: height and/or weight are out of date (There is no height and/or weight reading in the past 365 days, so the below BMI readings may be inaccurate) BMI Readings from Last 3 Encounters: 05/18/23 : 28.56 kg/m? 05/12/23 : 26.52 kg/m? 02/24/21 : 29.03 kg/m? Diabetes: Well controlled - Marie has been diagnosed with Type 2 Diabetes. Her last Hemoglobin A1C was 5.7 (04/12/2014). NarxCare score NARX Narcotics: 390 (09/06/2023 1:00 PM) --------- REVIEW OF SYSTEMS: CONSTITUTIONAL: No fevers, chills, nightsweats, unintended weight loss HEENT: Denies frequent or severe headaches, nasal congestion/sinus symptoms, problematic allergy problems. EYES: No diplopia or blurry vision. CARDIOVASCULAR: No chest pain, dyspnea, palpitations, orthopnea, PND. PULM: No dyspnea, unexplained cough. GI: No dysphagia/odynophagia, problematic reflux, constipation, diarrhea, changes in stool habits, hematochezia, melena. : No new urinary complaints, including dysuria, gross hematuria or pyuria. NEURO: No new balance problems, peripheral weakness/paresthesias or numbness of concern. MUSC-SKEL: No new joint pain, swelling, or erythema. PSY: No concerns regarding depression, anxiety or panic. INTEGUMENTARY: Skin changes as noted below. (more content not included)... [facility] 09-06-2023 Note HNO ID: [id number] Author: Gia Kilgore RT(R) Service: ? Author Type: Technologist Type: Progress Notes Filed: 09/06/2023 1:31 PM Note Text: Radiology Service Progress Note PATIENT NAME: Marie Sexton DATE OF SERVICE: September 06, 2023 TIME: 1:31 PM PATIENT IDENTITY VERIFICATION COMPLETED USING TWO (2) IDENTIFIERS: Name and Date of confirmed by patient verbally. FALL SCREENING: Has the patient had 2 falls in the last year or 1 fall with injury or currently using an Ambulatory Assistive Device (Walker, Cane, Wheelchair, Crutches, etc.)? No PATIENT GENDER DATA: Female. status: : No status: NO. PATIENT RELEVANT IMPLANT DATA REVIEWED: Not Applicable RADIOLOGY DEPARTMENT: General X-ray: Exam(s) Completed: Lower Extremity X-Ray(s): Ankle, Bilateral and Wt. Bearing PERIPHERAL IV DATA: Not applicable SIGNED BY: RT Marivel(R) September 06, 2023 1:31 PM [facility] 09-06-2023 History of Present illness Narrative Images from the original note were not included. PODIATRIC MEDICINE & SURGERY OFFICE NOTE Complaint: Right Charcot surgical referral HPI: This 63 year old female presents to the clinic today status post right TTC fusion. Patient has been weightbearing without any assistance and she is doing well with this on the right side however states that she feels clicking in her midfoot. Reviewing her x-rays it appears that the plate has loosened that was previously placed by another surgeon. The patient also states that she had a cyst on her left tibia that had a piece of bone come out of it. She brought this to show me. Patient denies any constitutional symptoms. Patient denies any calf or thigh pain. 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 numbness and tingling hands Snores Ulcer bilateral feet/ had for 2 years left foot and right foot for about 4 months / uses ointment to feet once a day. / ulcers are draining blood or no yellow or green draininage. Varicose veins Weakness arms and legs PAST SURGICAL HISTORY Procedure Laterality Date LIG/TRNSXJ FLP TUBE ABDL/VAG APPR UNI/BI Tubal ligation PAST SURGICAL HISTORY OF surgery to left foot x 5 PAST SURGICAL HISTORY OF right foot surgery x2 No current facility-administered medications for this visit. ALLERGIES Allergen Reactions Augmentin [Amoxicil* GI Upset Vomiting Codeine GI Upset Demerol [Meperidine* Other: See Comments patient unsure Doxycycline GI Upset Vomiting GI upset Morphine Itching FAMILY HISTORY Problem Relation Age of Onset Anesthesia Problems No Family History Social History Tobacco Use Smoking status: Former Packs/day: 1.50 Years: 10.00 Additional pack years: 0.00 Total pack years: 15.00 Types: Cigarettes Quit date: 04/24/2009 Years since quittin.3 Substance Use Topics Alcohol use: Yes Comment: occasional Drug use: No Current Opioids Analgesic Opioid Agonists Start End traMADol (ULTRAM) 50 mg tablet 09/06/2023 -- Sig - Route: Take 1 tablet by mouth every 6 hours as needed for pain. - ORAL CHAYITO Modifiable Risk Factors (MoRF) Obesity Unknown Risk High: BMI > 40 Moderate: BMI 30-40 Normal: BMI < 30 Diabetes Moderate Risk High: A1C > 8 Moderate: A1C 7-8 Normal: A1C < 7 Smoking normal High: Current smoker Normal: Non smoker Anemia normal High: Hgb < 11.5 (women) N/A: Hgb >= 11.5 (women) Nutritional Status normal High: Alb<3.4, or prealb<15, or serum transferrin<200, or total lymphocyte count<1500 Normal: normal labs Narcotics Use High Risk High:NarxCare >=300 Moderate: 100-299 Normal: 0-99 Obesity: height and/or weight are out of date (There is no height and/or weight reading in the past 365 days, so the below BMI readings may be inaccurate) BMI Readings from Last 3 Encounters: 05/18/23 : 28.56 kg/m 05/12/23 : 26.52 kg/m 02/24/21 : 29.03 kg/m Diabetes: Well controlled - Marie has been diagnosed with Type 2 Diabetes. Her last Hemoglobin A1C was 5.7 (04/12/2014). NarxCare score NARX Narcotics: 390 (09/06/2023 1:00 PM) REVIEW OF SYSTEMS: CONSTITUTIONAL: No fevers, chills, nightsweats, unintended weight loss HEENT: Denies frequent or severe headaches, nasal congestion/sinus symptoms, problematic allergy problems. EYES: No diplopia or blurry vision. CARDIOVASCULAR: No chest pain, dyspnea, palpitations, orthopnea, PND. PULM: No dyspnea, unexplained cough. GI: No dysphagia/odynophagia, problematic reflux, constipation, diarrhea, changes in stool habits, hematochezia, melena. : No new urinary complaints, including dysuria, gross hematuria or pyuria. NEURO: No new balance problems, peripheral weakness/paresthesias or numbness of concern. MUSC-SKEL: No new joint pain, swelling, or erythema. PSY: No concerns regarding depression, anxiety or panic. INTEGUMENTARY: Skin changes as noted below. I have confirmed and edited as necessary, the PFSH and ROS obtained by others. OBJECTIVE: Patient is oriented to person, place, and time and is in no acute distress. Vascular Exam: Dorsalis Pedis pulses are palpable bilateral. Posterior Tibial pulses are palpable bilateral. Capillary refill time brisk. Skin temperature of the bilateral lower extremity is warm to cool, proximal to distal. Varicosities are NOT observed bilaterally. Edema NOT noted. No palpable lymph nodes noted. Dermatological: Skin appears well hydrated and is without notable erythema or ecchymosis. Webspaces are clean, dry, and intact bilateral. No open lesions. Incisions to the right lower extremity are healed. No signs of dehiscence or infection. Neurological: Light touch sensation intact bilaterally. Gross sensation intact bilaterally. Protective sensation ABSENT at 5/5 non-callused sites randomly selected and tested bilaterally using a 5.07 SWMF. Musculoskelatal: Right leg rectus Right foot rectus IMAGING: Last XR Foot - Impression Only XR FOOT GENERAL 3V AP/LAT/OBL BILAT Exam End: 02/24/2021 3:05 PM (Final result) Impression: IMPRESSION: Pes planus with mild degenerative change midfoot bilaterally. Remote postsurgical changes bilateral feet. No acute osseous abnormality. Unremarkable exam bilateral ankles. ... Last XR Ankle - Impression Only XR ANKLE GENERAL 3V AP/LAT/OBL LEFT Exam End: 09/06/2023 1:28 PM (In process) Last CT Foot - Impression Only No resulted procedures found. Last CT Ankle - Impression Only CT ANKLE WO IVCON RIGHT Exam End: 04/22/2023 3:55 PM (Final result) Impression: IMPRESSION: Intact postoperative changes of the right foot and ankle as described. First Aid Nurse: SUBHASH Transcribe Date/Time: Apr 22 2023 4:18P... Last MRI Ankle - Impression Only MRI ANKLE WO IVCON RT Exam End: 04/29/2021 11:40 AM (Final result) Impression: IMPRESSION: POSTERIOR TIBIALIS TENOSYNOVITIS. 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 ABNORMAL APPEARANCES OF THE SPRING LIGAMENT AND CALCANEOFIBULAR LIGAMENT. FINDINGS SUGGESTIVE OF MILD PLANTAR FASCIITIS. DIABETIC MUSCLE ATROPHY. First Aid Nurse: SUBHASH ... Last MRI Foot - Impression Only No resulted procedures found. ASSESSMENT & PLAN: Discussion with the patient today including questions and answers regarding the etiology and treatment options for the current problems. Right ankle Charcot with failed deltoid repair attempts -Status post TTC fusion - Patient was written for tramadol. - X-rays were reviewed with the patient and I explained to her that the plate appears to be loosening since I did surgery on her ankle. The midfoot plate needs to be watched carefully as it appears that it is backing out significantly since her initial visit. We will plan on discussion in 4 weeks whether or not we have to remove this and revise it. Diabetes mellitus - Patient being monitored by her primary care physician. All questions answered to the patient's apparent satisfaction. No further questions at this time. Patient to be seen in clinic in 1 month for new x-rays, to return to clinic earlier if any problems arise. Dr. Macario Santos DPM I spent a total of 25 minutes on the date of the service which included preparing to see the patient, [id number] patient care, completing clinical documentation, obtaining and/or reviewing separately obtained history, performing a medically appropriate examination, counseling and educating the patient/family/caregiver, and ordering medications, tests, or procedures. documented in this encounter [facility] 09-06-2023 History of Present illness Narrative Radiology Service Progress Note PATIENT NAME: Marie Sexton DATE OF SERVICE: September 06, 2023 TIME: 1:31 PM PATIENT IDENTITY VERIFICATION COMPLETED USING TWO (2) IDENTIFIERS: Name and Date of confirmed by patient verbally. FALL SCREENING: Has the patient had 2 falls in the last year or 1 fall with injury or currently using an Ambulatory Assistive Device (Walker, Cane, Wheelchair, Crutches, etc.)? No PATIENT GENDER DATA: Female. status: : No status: NO. PATIENT RELEVANT IMPLANT DATA REVIEWED: Not Applicable RADIOLOGY DEPARTMENT: General X-ray: Exam(s) Completed: Lower Extremity X-Ray(s): Ankle, Bilateral and Wt. Bearing PERIPHERAL IV DATA: Not applicable SIGNED BY: RT Marivel(R) September 06, 2023 1:31 PM documented in this encounter [facility] 08-05-2023 Note HNO ID: [id number] Author: Macario Santos DPM Service: ? Author Type: Physician Type: Progress Notes Filed: 08/17/2023 11:59 AM Note Text: PODIATRIC MEDICINE AND SURGERY OFFICE NOTE Complaint: Right Charcot surgical referral HPI: This 63 year old female presents to the clinic today status post right TTC fusion. The patient has been doing very well and is in a boot. She states she has been compliant with her weightbearing status. Patient is looking to start weightbearing out of the boot. We will get her a brace for this. Patient denies any constitutional symptoms. Patient denies any calf or thigh pain. 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 numbness and tingling hands Snores Ulcer bilateral feet/ had for 2 years left foot and right foot for about 4 months / uses ointment to feet once a day. / ulcers are draining blood or no yellow or green draininage. Varicose veins Weakness arms and legs PAST SURGICAL HISTORY Procedure Laterality Date LIG/TRNSXJ FLP TUBE ABDL/VAG APPR UNI/BI Tubal ligation PAST SURGICAL HISTORY OF surgery to left foot x 5 PAST SURGICAL HISTORY OF right foot surgery x2 No current facility-administered medications for this visit. ALLERGIES Allergen Reactions Codeine GI Upset Demerol [Meperidine* Other: See Comments patient unsure Morphine Itching FAMILY HISTORY Problem Relation Age of Onset Anesthesia Problems No Family History Social History Tobacco Use Smoking status: Former Packs/day: 1.50 Years: 10.00 Additional pack years: 0.00 Total pack years: 15.00 Types: Cigarettes Quit date: 04/24/2009 Years since quittin.3 Substance Use Topics Alcohol use: Yes Comment: occasional Drug use: No Current Opioids Analgesic Opioid Agonists Start End traMADol (ULTRAM) 50 mg tablet 08/05/2023 -- Sig - Route: Take 1 tablet by mouth every 4 hours as needed for pain. for pain. - ORAL CHAYITO Modifiable Risk Factors (MoRF) Obesity Unknown Risk High: BMI > 40 Moderate: BMI 30-40 Normal: BMI < 30 Diabetes Moderate Risk High: A1C > 8 Moderate: A1C 7-8 Normal: A1C < 7 Smoking normal High: Current smoker Normal: Non smoker Anemia normal High: Hgb < 11.5 (women) N/A: Hgb >= 11.5 (women) Nutritional Status normal High: Alb<3.4, or prealb<15, or serum transferrin<200, or total lymphocyte count<1500 Normal: normal labs Narcotics Use High Risk High:NarxCare >=300 Moderate: 100-299 Normal: 0-99 Obesity: height and/or weight are out of date (There is no height and/or weight reading in the past 365 days, so the below BMI readings may be inaccurate) BMI Readings from Last 3 Encounters: 05/18/23 : 28.56 kg/m? 05/12/23 : 26.52 kg/m? 02/24/21 : 29.03 kg/m? Diabetes: Well controlled - Marie has been diagnosed with Type 2 Diabetes. Her last Hemoglobin A1C was 5.7 (04/12/2014). NarxCare score NARX Narcotics: 380 (08/05/2023 1:57 PM) --------- REVIEW OF SYSTEMS: CONSTITUTIONAL: No fevers, chills, nightsweats, unintended weight loss HEENT: Denies frequent or severe headaches, nasal congestion/sinus symptoms, problematic allergy problems. EYES: No diplopia or blurry vision. CARDIOVASCULAR: No chest pain, dyspnea, palpitations, orthopnea, PND. PULM: No dyspnea, unexplained cough. GI: No dysphagia/odynophagia, problematic reflux, constipation, diarrhea, changes in stool habits, hematochezia, melena. : No new urinary complaints, including dysuria, gross hematuria or pyuria. NEURO: No new balance problems, peripheral weakness/paresthesias or numbness of concern. MUSC-SKEL: No new joint pain, swelling, or erythema. PSY: No concerns regarding depression, anxiety or panic. INTEGUMENTARY: Skin changes as noted below. I have confirmed and edited as necessary, the PFSH and ROS obtained by others. OBJECTIVE: Patient is oriented to person, place, and time and is in no acute distress. Vascular Exam: Dorsalis Pedis pulses are palpable bilateral. Posterior Tibial pulses ar (more content not included)... [facility] 08-05-2023 Note HNO ID: [id number] Author: Rosie Elizondo RT(R) Service: ? Author Type: Technologist Type: Progress Notes Filed: 08/05/2023 2:16 PM Note Text: Radiology Service Progress Note PATIENT NAME: Marie Sexton DATE OF SERVICE: August 05, 2023 TIME: 2:15 PM PATIENT IDENTITY VERIFICATION COMPLETED USING TWO (2) IDENTIFIERS: Name and Date of confirmed by patient verbally. FALL SCREENING: Has the patient had 2 falls in the last year or 1 fall with injury or currently using an Ambulatory Assistive Device (Walker, Cane, Wheelchair, Crutches, etc.)? No PATIENT GENDER DATA: Female. status: : No status: NO. PATIENT RELEVANT IMPLANT DATA REVIEWED: Yes RADIOLOGY DEPARTMENT: General X-ray: Exam(s) Completed: Lower Extremity X-Ray(s): Ankle, Right and Wt. Bearing PERIPHERAL IV DATA: Not applicable SIGNED BY: RT Anup(R) August 05, 2023 2:15 PM [facility] 08-05-2023 History of Present illness Narrative Radiology Service Progress Note PATIENT NAME: Marie Sexton DATE OF SERVICE: August 05, 2023 TIME: 2:15 PM PATIENT IDENTITY VERIFICATION COMPLETED USING TWO (2) IDENTIFIERS: Name and Date of confirmed by patient verbally. FALL SCREENING: Has the patient had 2 falls in the last year or 1 fall with injury or currently using an Ambulatory Assistive Device (Walker, Cane, Wheelchair, Crutches, etc.)? No PATIENT GENDER DATA: Female. status: : No status: NO. PATIENT RELEVANT IMPLANT DATA REVIEWED: Yes RADIOLOGY DEPARTMENT: General X-ray: Exam(s) Completed: Lower Extremity X-Ray(s): Ankle, Right and Wt. Bearing PERIPHERAL IV DATA: Not applicable SIGNED BY: RT Anup(R) August 05, 2023 2:15 PM documented in this encounter [facility] 07-02-2023 Note HNO ID: [id number] Author: Macario Santos DPM Service: ? Author Type: Physician Type: Progress Notes Filed: 07/05/2023 12:24 PM Note Text: PODIATRIC MEDICINE AND SURGERY OFFICE NOTE Complaint: Right Charcot surgical referral HPI: This 63 year old female presents to the clinic today status post right TTC fusion. The patient has been doing very well and is in a boot. She states she has been compliant with her nonweightbearing status. Patient denies any constitutional symptoms. Patient denies any calf or thigh pain. 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 numbness and tingling hands Snores Ulcer bilateral feet/ had for 2 years left foot and right foot for about 4 months / uses ointment to feet once a day. / ulcers are draining blood or no yellow or green draininage. Varicose veins Weakness arms and legs PAST SURGICAL HISTORY Procedure Laterality Date LIG/TRNSXJ FLP TUBE ABDL/VAG APPR UNI/BI Tubal ligation PAST SURGICAL HISTORY OF surgery to left foot x 5 PAST SURGICAL HISTORY OF right foot surgery x2 No current facility-administered medications for this visit. ALLERGIES Allergen Reactions Codeine GI Upset Demerol [Meperidine* Other: See Comments patient unsure Morphine Itching FAMILY HISTORY Problem Relation Age of Onset Anesthesia Problems No Family History Social History Tobacco Use Smoking status: Former Packs/day: 1.50 Years: 10.00 Additional pack years: 0.00 Total pack years: 15.00 Types: Cigarettes Quit date: 04/24/2009 Years since quittin.2 Substance Use Topics Alcohol use: Yes Comment: occasional Drug use: No Current Opioids Analgesic Opioid Oxycodone Combinations Start End oxyCODONE-acetaminophen (PERCOCET) 5-325 mg tablet 06/21/2023 Sig - Route: Take 1 tablet by mouth every 6 hours as needed for pain. - ORAL Earliest Fill Date: 06/21/2023 Analgesic Opioid Oxycodone and Non-Salicylate Combinations Start End oxyCODONE-acetaminophen (PERCOCET) 5-325 mg tablet 06/21/2023 Sig - Route: Take 1 tablet by mouth every 6 hours as needed for pain. - ORAL Earliest Fill Date: 06/21/2023 CHAYITO Modifiable Risk Factors (MoRF) Obesity Unknown Risk High: BMI > 40 Moderate: BMI 30-40 Normal: BMI < 30 Diabetes Moderate Risk High: A1C > 8 Moderate: A1C 7-8 Normal: A1C < 7 Smoking normal High: Current smoker Normal: Non smoker Anemia normal High: Hgb < 11.5 (women) N/A: Hgb >= 11.5 (women) Nutritional Status normal High: Alb<3.4, or prealb<15, or serum transferrin<200, or total lymphocyte count<1500 Normal: normal labs Narcotics Use High Risk High:NarxCare >=300 Moderate: 100-299 Normal: 0-99 Obesity: height and/or weight are out of date (There is no height and/or weight reading in the past 365 days, so the below BMI readings may be inaccurate) BMI Readings from Last 3 Encounters: 05/18/23 : 28.56 kg/m? 05/12/23 : 26.52 kg/m? 02/24/21 : 29.03 kg/m? Diabetes: Well controlled - April has been diagnosed with Type 2 Diabetes. Her last Hemoglobin A1C was 5.7 (04/12/2014). NarxCare score NARX Narcotics: 390 (07/02/2023 9:52 AM) --------- REVIEW OF SYSTEMS: CONSTITUTIONAL: No fevers, chills, nightsweats, unintended weight loss HEENT: Denies frequent or severe headaches, nasal congestion/sinus symptoms, problematic allergy problems. EYES: No diplopia or blurry vision. CARDIOVASCULAR: No chest pain, dyspnea, palpitations, orthopnea, PND. PULM: No dyspnea, unexplained cough. GI: No dysphagia/odynophagia, problematic reflux, constipation, diarrhea, changes in stool habits, hematochezia, melena. : No new urinary complaints, including dysuria, gross hematuria or pyuria. NEURO: No new balance problems, peripheral weakness/paresthesias or numbness of concern. MUSC-SKEL: No new joint pain, swelling, or erythema. PSY: No concerns regarding depression, anxiety or panic. INTEGUMENTARY: Skin changes as noted below. I have confirmed and edited as necessary, the PFSH and ROS ob (more content not included)... [facility] 07-02-2023 Note HNO ID: [id number] Author: Omayra Padgett RT(R) Service: ? Author Type: Technologist Type: Progress Notes Filed: 07/02/2023 10:42 AM Note Text: Radiology Service Progress Note PATIENT NAME: Marie Sexton DATE OF SERVICE: July 02, 2023 TIME: 10:42 AM PATIENT IDENTITY VERIFICATION COMPLETED USING TWO (2) IDENTIFIERS: Name and Date of confirmed by patient verbally and Name and Date of confirmed by identification band. FALL SCREENING: Has the patient had 2 falls in the last year or 1 fall with injury or currently using an Ambulatory Assistive Device (Walker, Cane, Wheelchair, Crutches, etc.)? No PATIENT GENDER DATA: Female. status: : No status: NO. PATIENT RELEVANT IMPLANT DATA REVIEWED: Not Applicable RADIOLOGY DEPARTMENT: General X-ray: Exam(s) Completed: Lower Extremity X-Ray(s): Ankle, Right PERIPHERAL IV DATA: Not applicable SIGNED BY: RT Radhames(R) July 02, 2023 10:42 AM [facility] 07-02-2023 History of Present illness Narrative Images from the original note were not included. PODIATRIC MEDICINE & SURGERY OFFICE NOTE Complaint: Right Charcot surgical referral HPI: This 63 year old female presents to the clinic today status post right TTC fusion. The patient has been doing very well and is in a boot. She states she has been compliant with her nonweightbearing status. Patient denies any constitutional symptoms. Patient denies any calf or thigh pain. 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 numbness and tingling hands Snores Ulcer bilateral feet/ had for 2 years left foot and right foot for about 4 months / uses ointment to feet once a day. / ulcers are draining blood or no yellow or green draininage. Varicose veins Weakness arms and legs PAST SURGICAL HISTORY Procedure Laterality Date LIG/TRNSXJ FLP TUBE ABDL/VAG APPR UNI/BI Tubal ligation PAST SURGICAL HISTORY OF surgery to left foot x 5 PAST SURGICAL HISTORY OF right foot surgery x2 No current facility-administered medications for this visit. ALLERGIES Allergen Reactions Codeine GI Upset Demerol [Meperidine* Other: See Comments patient unsure Morphine Itching FAMILY HISTORY Problem Relation Age of Onset Anesthesia Problems No Family History Social History Tobacco Use Smoking status: Former Packs/day: 1.50 Years: 10.00 Additional pack years: 0.00 Total pack years: 15.00 Types: Cigarettes Quit date: 04/24/2009 Years since quittin.2 Substance Use Topics Alcohol use: Yes Comment: occasional Drug use: No Current Opioids Analgesic Opioid Oxycodone Combinations Start End oxyCODONE-acetaminophen (PERCOCET) 5-325 mg tablet 06/21/2023 Sig - Route: Take 1 tablet by mouth every 6 hours as needed for pain. - ORAL Earliest Fill Date: 06/21/2023 Analgesic Opioid Oxycodone and Non-Salicylate Combinations Start End oxyCODONE-acetaminophen (PERCOCET) 5-325 mg tablet 06/21/2023 Sig - Route: Take 1 tablet by mouth every 6 hours as needed for pain. - ORAL Earliest Fill Date: 06/21/2023 CHAYITO Modifiable Risk Factors (MoRF) Obesity Unknown Risk High: BMI > 40 Moderate: BMI 30-40 Normal: BMI < 30 Diabetes Moderate Risk High: A1C > 8 Moderate: A1C 7-8 Normal: A1C < 7 Smoking normal High: Current smoker Normal: Non smoker Anemia normal High: Hgb < 11.5 (women) N/A: Hgb >= 11.5 (women) Nutritional Status normal High: Alb<3.4, or prealb<15, or serum transferrin<200, or total lymphocyte count<1500 Normal: normal labs Narcotics Use High Risk High:NarxCare >=300 Moderate: 100-299 Normal: 0-99 Obesity: height and/or weight are out of date (There is no height and/or weight reading in the past 365 days, so the below BMI readings may be inaccurate) BMI Readings from Last 3 Encounters: 05/18/23 : 28.56 kg/m 05/12/23 : 26.52 kg/m 02/24/21 : 29.03 kg/m Diabetes: Well controlled - Marie has been diagnosed with Type 2 Diabetes. Her last Hemoglobin A1C was 5.7 (04/12/2014). NarxCare score NARX Narcotics: 390 (07/02/2023 9:52 AM) REVIEW OF SYSTEMS: CONSTITUTIONAL: No fevers, chills, nightsweats, unintended weight loss HEENT: Denies frequent or severe headaches, nasal congestion/sinus symptoms, problematic allergy problems. EYES: No diplopia or blurry vision. CARDIOVASCULAR: No chest pain, dyspnea, palpitations, orthopnea, PND. PULM: No dyspnea, unexplained cough. GI: No dysphagia/odynophagia, problematic reflux, constipation, diarrhea, changes in stool habits, hematochezia, melena. : No new urinary complaints, including dysuria, gross hematuria or pyuria. NEURO: No new balance problems, peripheral weakness/paresthesias or numbness of concern. MUSC-SKEL: No new joint pain, swelling, or erythema. PSY: No concerns regarding depression, anxiety or panic. INTEGUMENTARY: Skin changes as noted below. I have confirmed and edited as necessary, the PFSH and ROS obtained by others. OBJECTIVE: Patient is oriented to person, place, and time and is in no acute distress. Vascular Exam: Dorsalis Pedis pulses are palpable bilateral. Posterior Tibial pulses are palpable bilateral. Capillary refill time brisk. Skin temperature of the bilateral lower extremity is warm to cool, proximal to distal. Varicosities are NOT observed bilaterally. Edema NOT noted. No palpable lymph nodes noted. Dermatological: Skin appears well hydrated and is without notable erythema or ecchymosis. Webspaces are clean, dry, and intact bilateral. No open lesions. Incisions to the right lower extremity are healed. No signs of dehiscence or infection. Neurological: Light touch sensation intact bilaterally. Gross sensation intact bilaterally. Protective sensation ABSENT at 5/5 non-callused sites randomly selected and tested bilaterally using a 5.07 SWMF. Musculoskelatal: Right leg rectus Right foot rectus IMAGING: Last XR Foot - Impression Only XR FOOT GENERAL 3V AP/LAT/OBL BILAT Exam End: 02/24/2021 3:05 PM (Final result) Impression: IMPRESSION: Pes planus with mild degenerative change midfoot bilaterally. Remote postsurgical changes bilateral feet. No acute osseous abnormality. Unremarkable exam bilateral ankles. ... Last XR Ankle - Impression Only XR ANKLE GENERAL 3V AP/LAT/OBL RIGHT Exam End: 07/02/2023 10:35 AM (In process) Last CT Foot - Impression Only No resulted procedures found. Last CT Ankle - Impression Only CT ANKLE WO IVCON RIGHT Exam End: 04/22/2023 3:55 PM (Final result) Impression: IMPRESSION: Intact postoperative changes of the right foot and ankle as described. First Aid Nurse: SUBHASH Transcribe Date/Time: Apr 22 2023 4:18P... Last MRI Ankle - Impression Only MRI ANKLE WO IVCON RT Exam End: 04/29/2021 11:40 AM (Final result) Impression: IMPRESSION: POSTERIOR TIBIALIS TENOSYNOVITIS. 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 ABNORMAL APPEARANCES OF THE SPRING LIGAMENT AND CALCANEOFIBULAR LIGAMENT. FINDINGS SUGGESTIVE OF MILD PLANTAR FASCIITIS. DIABETIC MUSCLE ATROPHY. First Aid Nurse: SUBHASH ... Last MRI Foot - Impression Only No resulted procedures found. ASSESSMENT & PLAN: Discussion with the patient today including questions and answers regarding the etiology and treatment options for the current problems. Right ankle Charcot with failed deltoid repair attempts -Status post TTC fusion - Patient is continue nonweightbearing to the right lower extremity for the next 2 weeks and then can start putting pressure on it in the boot. - X-rays were reviewed with the patient and we will see the patient back in 4 weeks for new x-rays. All questions answered to the patient's apparent satisfaction. No further questions at this time. Patient to be seen in clinic in 1 month for new x-rays, to return to clinic earlier if any problems arise. Dr. Macario Santos DPM I spent a total of 25 minutes on the date of the service which included preparing to see the patient, [id number] patient care, completing clinical documentation, obtaining and/or reviewing separately obtained history, performing a medically appropriate examination, counseling and educating the patient/family/caregiver, and ordering medications, tests, or procedures. documented in this encounter [facility] 07-02-2023 History of Present illness Narrative Radiology Service Progress Note PATIENT NAME: Marie Sexton DATE OF SERVICE: July 02, 2023 TIME: 10:42 AM PATIENT IDENTITY VERIFICATION COMPLETED USING TWO (2) IDENTIFIERS: Name and Date of confirmed by patient verbally and Name and Date of confirmed by identification band. FALL SCREENING: Has the patient had 2 falls in the last year or 1 fall with injury or currently using an Ambulatory Assistive Device (Walker, Cane, Wheelchair, Crutches, etc.)? No PATIENT GENDER DATA: Female. status: : No status: NO. PATIENT RELEVANT IMPLANT DATA REVIEWED: Not Applicable RADIOLOGY DEPARTMENT: General X-ray: Exam(s) Completed: Lower Extremity X-Ray(s): Ankle, Right PERIPHERAL IV DATA: Not applicable SIGNED BY: RT Radhames(R) July 02, 2023 10:42 AM documented in this encounter [facility] 07-02-2023 Miscellaneous Notes RADIOLOGY SERVICE PROGRESS NOTE DATE OF SERVICE: July 02, 2023 TIME OF SERVICE: 10:03AM EVENT: ARRIVED IN WHEELCHAIR ADDITIONAL EVENT DETAILS: NA SIGNATURE: Francesca Kaur PATIENT NAME: Marie Sexton DATE: July 02, 2023 TIME: 10:12 AM PAGER/CONTACT #: documented in this encounter [facility] 06-07-2023 Note HNO ID: [id number] Author: Mahendra Prajapati MA Service: ? Author Type: Cotton Weigher Type: Progress Notes Filed: 06/07/2023 2:52 PM Note Text: Marie presents today for splint removal. Marie's splint was removed and skin cleansed. Marie tolerated this procedure well. Directed Marie and daughter to xray prior to appt w/ Dr. Santos. Mahendra Prajapati MA Splint was removed by Lorraine Yancey RN [facility] 06-07-2023 Note HNO ID: [id number] Author: Macario Santos DPM Service: ? Author Type: Physician Type: Progress Notes Filed: 06/07/2023 1:59 PM Note Text: PODIATRIC MEDICINE AND SURGERY OFFICE NOTE Complaint: Right Charcot surgical referral HPI: This 63 year old female presents to the clinic today status post right TTC fusion. The patient has been doing very well and had a cast change 2 weeks ago due to getting it wet. However beside that she has had no issues. Patient states she has been nonweightbearing to the right lower extremity and continues to be as compliant as possible. Patient denies any constitutional symptoms. Patient denies any calf or thigh pain. 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 numbness and tingling hands Snores Ulcer bilateral feet/ had for 2 years left foot and right foot for about 4 months / uses ointment to feet once a day. / ulcers are draining blood or no yellow or green draininage. Varicose veins Weakness arms and legs PAST SURGICAL HISTORY Procedure Laterality Date LIG/TRNSXJ FLP TUBE ABDL/VAG APPR UNI/BI Tubal ligation PAST SURGICAL HISTORY OF surgery to left foot x 5 PAST SURGICAL HISTORY OF right foot surgery x2 No current facility-administered medications for this visit. ALLERGIES Allergen Reactions Codeine GI Upset Demerol [Meperidine* Other: See Comments patient unsure Morphine Itching FAMILY HISTORY Problem Relation Age of Onset Anesthesia Problems No Family History Social History Tobacco Use Smoking status: Former Packs/day: 1.50 Years: 10.00 Total pack years: 15.00 Types: Cigarettes Quit date: 04/24/2009 Years since quittin.1 Substance Use Topics Alcohol use: Yes Comment: occasional Drug use: No Current Opioids Analgesic Opioid Oxycodone Combinations Start End oxyCODONE-acetaminophen (PERCOCET) 5-325 mg tablet 06/03/2023 Sig - Route: Take 1 tablet by mouth every 6 hours as needed for pain. - ORAL Earliest Fill Date: 06/03/2023 Analgesic Opioid Oxycodone and Non-Salicylate Combinations Start End oxyCODONE-acetaminophen (PERCOCET) 5-325 mg tablet 06/03/2023 Sig - Route: Take 1 tablet by mouth every 6 hours as needed for pain. - ORAL Earliest Fill Date: 06/03/2023 CHAYITO Modifiable Risk Factors (MoRF) Obesity Unknown Risk High: BMI > 40 Moderate: BMI 30-40 Normal: BMI < 30 Diabetes Moderate Risk High: A1C > 8 Moderate: A1C 7-8 Normal: A1C < 7 Smoking normal High: Current smoker Normal: Non smoker Anemia normal High: Hgb < 11.5 (women) N/A: Hgb >= 11.5 (women) Nutritional Status normal High: Alb<3.4, or prealb<15, or serum transferrin<200, or total lymphocyte count<1500 Normal: normal labs Narcotics Use High Risk High:NarxCare >=300 Moderate: 100-299 Normal: 0-99 Obesity: height and/or weight are out of date (There is no height and/or weight reading in the past 365 days, so the below BMI readings may be inaccurate) BMI Readings from Last 3 Encounters: 05/18/23 : 28.56 kg/m? 05/12/23 : 26.52 kg/m? 02/24/21 : 29.03 kg/m? Diabetes: Well controlled - Marie has been diagnosed with Type 2 Diabetes. Her last Hemoglobin A1C was 5.7 (04/12/2014). NarxCare score NARX Narcotics: 401 (06/07/2023 11:38 AM) --------- REVIEW OF SYSTEMS: CONSTITUTIONAL: No fevers, chills, nightsweats, unintended weight loss HEENT: Denies frequent or severe headaches, nasal congestion/sinus symptoms, problematic allergy problems. EYES: No diplopia or blurry vision. CARDIOVASCULAR: No chest pain, dyspnea, palpitations, orthopnea, PND. PULM: No dyspnea, unexplained cough. GI: No dysphagia/odynophagia, problematic reflux, constipation, diarrhea, changes in stool habits, hematochezia, melena. : No new urinary complaints, including dysuria, gross hematuria or pyuria. NEURO: No new balance problems, peripheral weakness/paresthesias or numbness of concern. MUSC-SKEL: No new joint pain, swelling, or erythema. PSY: No concerns regarding depression, anxiety or eula (more content not included)... [facility] 06-07-2023 Note HNO ID: [id number] Author: Sudha Wadsworth RT(R) Service: ? Author Type: Technologist Type: Progress Notes Filed: 06/07/2023 12:08 PM Note Text: Radiology Service Progress Note PATIENT NAME: Marie Sexton DATE OF SERVICE: June 07, 2023 TIME: 12:07 PM PATIENT IDENTITY VERIFICATION COMPLETED USING TWO (2) IDENTIFIERS: Name and Date of confirmed by patient verbally. FALL SCREENING: Has the patient had 2 falls in the last year or 1 fall with injury or currently using an Ambulatory Assistive Device (Walker, Cane, Wheelchair, Crutches, etc.)? No PATIENT GENDER DATA: Female. status: : No status: NO. PATIENT RELEVANT IMPLANT DATA REVIEWED: Not Applicable RADIOLOGY DEPARTMENT: General X-ray: Exam(s) Completed: Lower Extremity X-Ray(s): Ankle, Right PERIPHERAL IV DATA: Not applicable SIGNED BY: RT Rod(R) June 07, 2023 12:07 PM [facility] 06-03-2023 Miscellaneous Notes Message from [employer]: Refills have been requested for the following medications: oxyCODONE-acetaminophen (PERCOCET) 5-325 mg tablet [Dr. Greg Santos] Preferred pharmacy: [facility] [address] [place], [place] [id number] [id number] Delivery method: Pickup documented in this encounter [facility] 05-27-2023 Note HNO ID: [id number] Author: Regi Cherry Ma Service: ? Author Type: ? Type: Progress Notes Filed: 05/27/2023 2:49 PM Note Text: Patient presents to clinic for splint change. Patient had surgery 05/17/2023. Initial post op splint removed. Incisions dressed in xeroform and wrapped in kerlix. Patient placed in a posterior ortho glass splint, applied to the lower right extremity. Patient neurovascularly intact and tolerated application. Patient instructed on cast care and to follow up as scheduled. Patient expressed thanks and understanding. Regi Cherry Ma [facility] 05-27-2023 History of Present illness Narrative Patient presents to clinic for splint change. Patient had surgery 05/17/2023. Initial post op splint removed. Incisions dressed in xeroform and wrapped in kerlix. Patient placed in a posterior ortho glass splint, applied to the lower right extremity. Patient neurovascularly intact and tolerated application. Patient instructed on cast care and to follow up as scheduled. Patient expressed thanks and understanding. Regi Cherry Ma documented in this encounter [facility] 05-26-2023 Miscellaneous Notes Contacted patient and scheduled a Cast room appointment on 05/27/2023. Patient calling in stating that her cast is wet and she is trying to dry it with a blow mccann. She is asking what should she do? Please call patient can be reached at [phone] Thank you documented in this encounter [facility] 05-23-2023 Miscellaneous Notes Attempted to call pt to check on status of CADD pump. No answer, left detailed VM. Kaylyn London APRN.GERALDO documented in this encounter [facility] 05-19-2023 Miscellaneous Notes Pt is POD# 2. S/P Right Leg removal of deep hardware Right Ankle fusion Right subtalar joint fusion Fibular osteotomy right ankle [place] of bone marrow autograft right leg with PNC infusing Ropivacaine 0.2% at 6/4/30/2 ml/hr Called and talked to patient, states pain level is : 2 Patient states the catheter dressing is intact, denies :redness, fever, draining, edema, pain Denies c/o metallic taste in mouth, ringing in ears, dizziness, etc. Patient is able to move Comments: Patient called after multiple missed calls from home going PNC CADD pump company. Patient states pain is tolerable. Patient educated on using the dose (bolus) button. All questions answered. Mara Stallworth RN Acute Pain Management Service [facility] documented in this encounter [facility] 05-18-2023 Note HNO ID: [id number] Author: Giselle Nguyen RN Service: Care Management Author Type: Registered Nurse Type: Care Mgt Progress Note Filed: 05/18/2023 10:03 AM Note Text: CARE MANAGEMENT DISCHARGE NOTE SERVICE DATE: May 18, 2023 SERVICE TIME: 10:00 AM Admission Date: 05/17/2023 LOS: 1 day Discharge Arrangement Discharge Arrangement: Home with Self Care Services Arranged Medical Services: Other: See Comment (None) Caregiver Assessment Caregiver is ready, willing and able to meet the patient's needs as recommended by the inter-professional team: No Caregiver needed (patient declined) Transportation Arrangements Transportation Arrangements: Car Destination: Home Handoff Communication: Handoff to: Primary Care Physician Primary Care Physician Name/Phone: Collins Andrews MD Additional Information: Met with patient at bedside regarding consult for home care, she is post op with podiatry. Patient states she has had 6 surgeries on ankle and she does not need home care. She is familiar with this. She has follow up already planned with podiatry. She is aware if she decides she needs home care she can call her PCP or Podiatry and request assistance having it set up. Not sure if the current discharge order is intentional or if it is part of he order set, post operative from podiatry. Clinical RN to follow up with medical for final clearance. SIGNATURE: Giselle Nguyen RN PATIENT NAME: Marie Sexton DATE: May 18, 2023 TIME: 10:00 AM CONTACT #: [phone] [facility] 05-17-2023 Note HNO ID: [id number] Author: Simin Cervantes RPh Service: Pharmacy Author Type: Pharmacist Type: Plan of Care Filed: 05/17/2023 6:43 PM Note Text: PHARMACY MEDICATION REVIEW Patient Name: Marie Sexton : 1960 The following medications were updated within the FREIGHT SEPARATOR medication list: Medications ADDED to FREIGHT SEPARATOR medication list Oxycodone-acetaminophen Humalog mix 75-25 Medications CHANGED on FREIGHT SEPARATOR medication list Gabapentin Fluoxetine Lantus Levothyroxine Medications REMOVED from FREIGHT SEPARATOR medication list Trazodone Hydrocodone-acetaminophen Turmeric (duplicate) Symbicort Albuterol inhaler Additional comments: N/A The below information represents the best possible medication history: Yes Medication history completed by: Pharmacist: Simin Cervantes RPh Source of history: Patient: Reliability of source: Appears reliable, clearly identified: Medication name, Medication dose, Medication frequency, Timing of last dose, and Indications and Pharmacy records: [facility] records Medication nonadherence identified: No barriers noted Reconciliation completed: Yes Completed by: Simin Cervantes PharmD All FREIGHT SEPARATOR medications addressed by LIP Patient interested in Bedside Delivery Services or using OP Pharmacy at discharge? Unable to assess Preferred outpatient pharmacy: [facility] [address] [place] [id number] [facility] [phone] Allergies: Codeine GI Upset Demerol [Meperidine* Other: See Comments Comment:patient unsure Morphine Itching Prior to Admission Medications Prescriptions Last Dose Informant Patient Reported? Taking? Biotin 10,000 mcg cap Past Week Yes Yes Sig: Take by mouth. CINNAMON BARK-CHROMIUM PICOLIN ORAL Past Week Yes Yes Sig: Take 2,000 mg by mouth twice daily. Cholecalciferol, Vitamin D3, 25 mcg (1,000 unit) cap Past Week Yes Yes Sig: Take 1,000 Units by mouth once daily. FLUoxetine (PROZAC) 10 mg capsule 05/16/2023 Yes Yes Sig: Take 10 mg by mouth once daily. INSULIN SYRINGE-NEEDLE U-100 1 mL 29 x 1/2 syrg 05/16/2023 Yes Yes LANTUS 100 unit/mL injection 05/16/2023 Yes Yes Si Units daily at bedtime. LEVOTHYROXINE 100 mcg tablet 05/16/2023 Yes Yes TURMERIC ORAL Past Week Yes Yes Sig: Take 500 mg by mouth. ZOLPIDEM 10 mg tab 05/16/2023 Yes Yes Sig: Take 10 mg by mouth daily at bedtime. gabapentin (NEURONTIN) 800 mg tablet 05/17/2023 Patient Yes Yes Sig: Take 800 mg by mouth. 1 tablet in the morning, 1 tablet in the afternoon, and 2 tablets at bedtime hydrochlorothiazide 25 mg ORAL tablet 05/16/2023 Patient Yes Yes Sig: Take 25 mg by mouth once daily. insulin lispro protamin/lispro (HUMALOG MIX 75-25,U-100,INSULN SUBCUTANEOUS) Yes Yes Sig: Inject 20 Units subcutaneously three times daily with meals. metFORMIN 1,000 mg ORAL tablet 05/16/2023 Patient Yes Yes Sig: Take 1,000 mg by mouth twice daily with meals. omega-3 acid ethyl esters (LOVAZA) 1 gram capsule Past Week Yes Yes Sig: Take 1 g by mouth twice daily. oxyCODONE-acetaminophen (PERCOCET) 5-325 mg tablet Yes Yes Sig: Take 1 tablet by mouth every 6 hours as needed for pain. vit B complex no.12/niacin,B3, (VITAMIN B COMPLEX NO.12-NIACIN ORAL) Past Week Yes Yes Sig: Take 2,500 mg by mouth. zolpidem (AMBIEN) 5 mg tablet 05/16/2023 No Yes Sig: Take 1 tablet by mouth at bedtime as needed (for insomnia.). Facility-Administered Medications: None Simin Cervantes RPh 05/17/2023 [facility] 05-17-2023 Note HNO ID: [id number] Author: Francesca Young RN Service: Nursing Author Type: Registered Nurse Type: Nursing Progress Note Filed: 05/17/2023 3:54 PM Note Text: Report to DEMI Jaffe resuming care of patient. [facility] 05-17-2023 Note HNO ID: [id number] Author: Carlos Barbour MD Service: Anesthesiology Author Type: Resident Type: Anesthesia Procedure Notes Filed: 05/17/2023 1:52 PM Note Text: Attestation signed by Ramiro Smith MD at 05/18/2023 11:26 AM Attending Note TEACHING PHYSICIAN NOTE OF PERSONAL INVOLVEMENT IN CARE: I have personally seen and examined the patient and performed the medical decision-making components. I have reviewed the resident's documentation and verified the findings in the note as written. Any additions or changes have been made by myself. Signature: Ramiro Smith MD Date: 05/18/2023 Time: 11:26 AM ANESTHESIOLOGY PROCEDURE NOTE Peripheral Nerve Block General Information Procedure Start Time/Medication Administration: 05/17/2023 7:20 AM Procedure End time: 05/17/2023 7:37 AM Patient location during procedure: induction room Timeout Performed Pre-procedure: timeout performed Consent Obtained: Yes Patient identity confirmed: arm band and patient Reason for block: post-op pain management/at surgeon's request Staffing Anesthesiologist: Ramiro Smith MD Resident: Collins Daniels MD Performed by: resident and anesthesiologist Preparation Sterility Preparation: hand hygiene performed prior to procedure, sterile gloves, drapes, and procedure tray, surgical cap used, mask used, sterile drape used during line insertion, skin prep agent completely dried prior to procedure Sterility Technique Not Completely Performed Due to Extreme Emergency: No Site Prep: Chloraprep Pre-Procedure Neuro Exam Location: RLE Procedure Details Patient Position: supine Monitoring: Pulse OX, EKG and NIBP Block Type Lower Extremity: popliteal Approach: anterior Laterality: right Injection Technique: catheter Ultrasound Guided: Yes Image in Chart: yes Local Infiltration: Yes Needle Needle Type: Tuohy Needle Gauge: 17 G Needle Length: 10 cm Needle Localization: ultrasound and anatomical landmarks Catheter Type: open end Catheter Size: 19 GNo Assessment Injection assessment: negative aspiration, no paresthesia on injection, incremental injection and local visualized surrounding nerve on ultrasound Post-Procedure Neuro Exam Expected Regional Anesthesia: Yes Comments Patient is confirmed by two identifiers, the Risks, benefits and alternatives of the regional anesthesia procedure were explained and confirmed with the patient who agrees to proceed. Standard ASA monitors were applied according to the procedure protocol. Vital signs were stable throughout the procedure, and the patient was communicating. No pain on injection and the procedure was well tolerated. The post- procedure diagnosis is the same as pre- procedure. No significant findings. No Complications unless noted above. No specimen collected. Minimal or no blood loss Discharge/transfer criteria are met upon discharge. SIGNATURE: Carlos Barbour MD PATIENT NAME: Marie Sexton DATE: May 17, 2023 TIME: 1:51 PM CSN: [id number] [facility] 05-17-2023 Note HNO ID: [id number] Author: Carlos Barbour MD Service: Anesthesiology Author Type: Resident Type: Anesthesia Procedure Notes Filed: 05/17/2023 1:51 PM Note Text: Attestation signed by Ramiro Smith MD at 05/18/2023 11:27 AM Attending Note TEACHING PHYSICIAN NOTE OF PERSONAL INVOLVEMENT IN CARE: I have personally seen and examined the patient and performed the medical decision-making components. I have reviewed the resident's documentation and verified the findings in the note as written. Any additions or changes have been made by myself. Signature: Ramiro Smith MD Date: 05/18/2023 Time: 11:27 AM ANESTHESIOLOGY PROCEDURE NOTE Peripheral Nerve Block General Information Procedure Start Time/Medication Administration: 05/17/2023 7:20 AM Procedure End time: 05/17/2023 7:37 AM Patient location during procedure: induction room Timeout Performed Pre-procedure: timeout performed Consent Obtained: Yes Patient identity confirmed: arm band and patient Reason for block: post-op pain management/at surgeon's request Staffing Anesthesiologist: Ramiro Smith MD Resident: Carlos Barbour MD Performed by: anesthesiologist and resident Preparation Sterility Preparation: hand hygiene performed prior to procedure, sterile gloves, drapes, and procedure tray, surgical cap used, mask used, sterile drape used during line insertion, skin prep agent completely dried prior to procedure Sterility Technique Not Completely Performed Due to Extreme Emergency: No Site Prep: Chloraprep Pre-Procedure Neuro Exam Location: RLE Sensory: intact Motor: intact Procedure Details Patient Position: supine Block Type Lower Extremity: distal femoral (adductor canal) Approach: anterior Laterality: right Injection Technique: catheter Ultrasound Guided: Yes Image in Chart: yes Local Infiltration: Yes Needle Needle Type: Tuohy Needle Gauge: 17 G Needle Length: 10 cm Needle Localization: ultrasound and anatomical landmarks Catheter Type: open end Catheter Size: 19 GNo Assessment Injection assessment: negative aspiration, no paresthesia on injection, incremental injection and local visualized surrounding nerve on ultrasound Post-Procedure Neuro Exam Expected Regional Anesthesia: Yes Comments Patient is confirmed by two identifiers, the Risks, benefits and alternatives of the regional anesthesia procedure were explained and confirmed with the patient who agrees to proceed. Standard ASA monitors wee applied according to the procedure protocol. Vital signs were stable throughout the procedure, and the patient was communicating. No pain on injection and the procedure was well tolerated. The post- procedure diagnosis is the same as pre- procedure. No significant findings. No Complications unless noted above. No specimen collected. Minimal or no blood loss Rvsonctc8h/transfer criteria are met upon discharge. SIGNATURE: Carlos Barbour MD PATIENT NAME: Marie Sexton DATE: May 17, 2023 TIME: 1:50 PM CSN: [id number] [facility] 05-17-2023 Note HNO ID: [id number] Author: Ramiro Smith MD Service: Anesthesiology Author Type: Anesthesiologist Type: Anesthesia Procedure Notes Filed: 05/17/2023 8:20 AM Note Text: ANESTHESIOLOGY PROCEDURE NOTE Peripheral Nerve Block General Information Patient location during procedure: pre-op Timeout Performed Pre-procedure: timeout performed Consent Obtained: Yes Patient identity confirmed: arm band and patient Reason for block: post-op pain management/at surgeon's request Staffing Anesthesiologist: Ramiro Smith MD Performed by: anesthesiologist Preparation Sterility Preparation: hand hygiene performed prior to procedure, sterile gloves, drapes, and procedure tray, surgical cap used, mask used, sterile drape used during line insertion, skin prep agent completely dried prior to procedure Sterility Technique Not Completely Performed Due to Extreme Emergency: No Site Prep: Chloraprep Pre-Procedure Neuro Exam Location: RLE Sensory: intact Motor: intact Procedure Details Patient Position: supine Monitoring: Pulse OX, EKG and NIBP Block Type Lower Extremity: distal femoral (adductor canal) Laterality: right Injection Technique: catheter Ultrasound Guided: Yes Image in Chart: yes Local Infiltration: Yes Needle Needle Type: Tuohy Needle Gauge: 18 G Needle Length: 10 cm Needle Localization: anatomical landmarks and ultrasound Needle Insertion Depth: 6 cm Catheter Type: closed end Catheter Size: 20 G Catheter at Skin Depth: 12 cm Test Dose Response: negative test dose Assessment Injection assessment: negative aspiration, no paresthesia on injection and incremental injection Paresthesia: none Post-Procedure Neuro Exam Expected Regional Anesthesia: Yes Medications Administered Ropivacaine (PF) 2 mg/mL (0.2 %) injection (NAROPIN), 20 mL Comments See nursing for vitals. SIGNATURE: Ramiro Smith MD PATIENT NAME: Marie Sexton DATE: May 17, 2023 TIME: 8:19 AM CSN: [id number] [facility] 05-17-2023 Note HNO ID: [id number] Author: Ramiro Smith MD Service: Anesthesiology Author Type: Anesthesiologist Type: Anesthesia Procedure Notes Filed: 05/17/2023 8:19 AM Note Text: ANESTHESIOLOGY PROCEDURE NOTE Peripheral Nerve Block General Information Procedure Start Time/Medication Administration: 05/17/2023 7:19 AM Procedure End time: 05/17/2023 7:37 AM Patient location during procedure: pre-op Timeout Performed Pre-procedure: timeout performed Consent Obtained: Yes Patient identity confirmed: arm band and patient Reason for block: post-op pain management/at surgeon's request Staffing Anesthesiologist: Ramiro Smith MD Performed by: anesthesiologist Preparation Sterility Preparation: hand hygiene performed prior to procedure, sterile gloves, drapes, and procedure tray, surgical cap used, mask used, sterile drape used during line insertion, skin prep agent completely dried prior to procedure Sterility Technique Not Completely Performed Due to Extreme Emergency: No Site Prep: Chloraprep Pre-Procedure Neuro Exam Location: RLE Sensory: intact Motor: intact Procedure Details Patient Position: left lateral decubitus Monitoring: Pulse OX, EKG and NIBP Block Type Lower Extremity: sciatic Approach: popliteal fossa Laterality: right Injection Technique: catheter Ultrasound Guided: Yes Image in Chart: yes Local Infiltration: Yes Needle Needle Type: Tuohy Needle Gauge: 18 G Needle Length: 10 cm Needle Localization: anatomical landmarks and ultrasound Needle Insertion Depth: 5 cm Catheter Type: catheter through needle and closed end Catheter Size: 20 G Catheter at Skin Depth: 10 cm Test Dose Response: negative test dose Assessment Injection assessment: negative aspiration, local visualized surrounding nerve on ultrasound, no paresthesia on injection and incremental injection Paresthesia: none Post-Procedure Neuro Exam Expected Regional Anesthesia: Yes Medications Administered Ropivacaine (PF) 2 mg/mL (0.2 %) injection (NAROPIN), 20 mL Comments See nursing for vitals. SIGNATURE: Ramiro Smith MD PATIENT NAME: April DATE: May 17, 2023 TIME: 8:17 AM CSN: [id number] [facility] 05-17-2023 Note HNO ID: [id number] Author: SÁNCHEZ Junior Service: ? Author Type: Clinical Trial Educator Type: Anesthesia Procedure Notes Filed: 05/17/2023 8:16 AM Note Text: ANESTHESIOLOGY PROCEDURE NOTE Airway General Information Procedure Start Time/Medication Administration: 05/17/2023 8:03 AM Patient location during procedure: OR Staffing Anesthesiologist: Amelia Camara MD CAA: SÁNCHEZ Junior Performed by: NATACHA student Indications and Patient Condition Indications for airway management: anesthesia Preoxygenated: yes anesthesia circuit Patient position: sniffing Method: asleep Difficult Mask: No Final Airway Details Final airway type: supraglottic airway Number of attempts at approach: 1 Final Supraglottic Airway: IGEL Size 5 Seal Adequate: yes Airway not difficult Comments LMA inserted by RITA 2 Chris Foy SIGNATURE: SÁNCHEZ Junior PATIENT NAME: April Darshan DATE: May 17, 2023 TIME: 8:15 AM CSN: [id number] [facility] 05-17-2023 Note HNO ID: [id number] Author: Brigette Stallworth RN Service: Pain Management Author Type: Registered Nurse Type: Nursing Progress Note Filed: 05/17/2023 7:40 AM Note Text: Patient tolerated procedure very well. Report to primary nurse. [facility] 05-14-2023 Note HNO ID: [id number] Author: RT Myesha(R) Service: Nuclear Medicine Author Type: Technologist Type: Progress Notes Filed: 05/14/2023 1:13 PM Note Text: RADIOLOGY SERVICE PROGRESS NOTE SERVICE DATE: 05/14/2023 SERVICE TIME: 11:48 AM PATIENT IDENTITY VERIFICATION COMPLETED USING TWO (2) STANDARD IDENTIFIERS: Name and Date of confirmed by patient verbally FALL SCREENING: Has the patient had 2 falls in the last year or 1 fall with injury or currently using an Ambulatory Assistive Device (Walker, Cane, Wheelchair, Crutches, etc.)? Yes, Patient High Risk for Falls What interventions were put in place to prevent falls during this visit? Wheel chair. We will assist. PATIENT GENDER DATA: .female : No ALLERGIES: Reviewed and unchanged MEDICATIONS REVIEWED: Yes PATIENT RELEVANT IMPLANT DATA REVIEWED: Not Applicable CREATININE: Creatinine Date Value Ref Range Status 04/12/2014 0.79 0.7 - 1.4 mg/dL Final 06/11/2011 0.75 0.7 - 1.4 mg/dL Final 09/04/2009 0.77 0.7 - 1.4 mg/dL Final eGFR-All Other Races Date Value Ref Range Status 04/12/2014 >60 . Final Comment: eGFR (Estimated GFR) Units of measure: mL/min/1.73 meters squared eGFR is derived from the reexpressed MDRD Study equation using the following parameters: serum creatinine, age, gender and race. The creatinine assay has been calibrated to be traceable to IDMS. An eGFR <60 mL/min/1.73m2 for >3 months is consistent with chronic kidney disease. Refer to KDOQI guidelines for clinical interpretation. eGFR- Date Value Ref Range Status 04/12/2014 >60 Final P.O.C.T. RESULTS: N/A May 14, [address] PERFORMED: No IV SITE: Ambulatory: A peripheral IV was started in the Left antecubital site with a Angio cath: 22 gauge. POST EXAM PIV STATUS: Discontinued PROCEDURE TYPE: NM Stress: 13.1mCi [id number] was administered IV for Rest Imaging at 1145 by Juana BUTLERRT(N). 33.3 mCi [id number] was administered IV for Stress Imaging at 1311 by RT Myesha(R). PATIENT DISCHARGED TO: Ambulatory patient, left NM department area. A Diagnostic radioactive procedure has taken place, with no further precautions necessary other than routine body substance precautions. More information regarding radiation safety can be found using this link: [email or web address] rotection %[email or web address]-%20Diagnostic%20Nuclear%20Med icine%20Procedures.pdf SIGNATURE: RT Genet(R) PATIENT NAME: April DATE: May 14, 2023 TIME: 11:48 AM PAGER/CONTACT #: [facility] 05-14-2023 Note HNO ID: [id number] Author: Mai Valencia RN Service: Radiology Author Type: Registered Nurse Type: Progress Notes Filed: 05/14/2023 1:12 PM Note Text: RADIOLOGY SERVICE PROGRESS NOTE SERVICE DATE: 05/14/2023 SERVICE TIME: 1:04 PM PATIENT IDENTITY VERIFICATION COMPLETED USING TWO (2) STANDARD IDENTIFIERS: Name and Date of confirmed by patient verbally and Name and Date of confirmed by identification band PATIENT GENDER DATA: female ALLERGIES: Reviewed and unchanged MEDICATIONS REVIEWED BY: Inker Machine PROCEDURE TYPE: NM STRESS: 0.4 mg of Lexiscan was administered IV at 1311 by Mai Valencia RN. Reversal agent used: None. IV SITE: Ambulatory: A Saline lock was inserted per protocol POST EXAM PIV STATUS: Discontinued PATIENT DISCHARGED TO: Ambulatory patient, left NM department area. A Diagnostic radioactive procedure has taken place, with no further precautions necessary other than routine body substance precautions. More information regarding radiation safety can be found using this link: [email or web address] rotection %[email or web address]-%20Diagnostic%20Nuclear%20Med icine%20Procedures.pdf SIGNATURE: Mai Valencia RN PATIENT NAME: April DATE: May 14, 2023 TIME: 1:04 PM PAGER/CONTACT #:[phone] [facility] 05-14-2023 History of Present illness Narrative RADIOLOGY SERVICE PROGRESS NOTE SERVICE DATE: 05/14/2023 SERVICE TIME: 11:48 AM PATIENT IDENTITY VERIFICATION COMPLETED USING TWO (2) STANDARD IDENTIFIERS: Name and Date of confirmed by patient verbally FALL SCREENING: Has the patient had 2 falls in the last year or 1 fall with injury or currently using an Ambulatory Assistive Device (Walker, Cane, Wheelchair, Crutches, etc.)? Yes, Patient High Risk for Falls What interventions were put in place to prevent falls during this visit? Wheel chair. We will assist. PATIENT GENDER DATA: .female : No ALLERGIES: Reviewed and unchanged MEDICATIONS REVIEWED: Yes PATIENT RELEVANT IMPLANT DATA REVIEWED: Not Applicable CREATININE: Creatinine Date Value Ref Range Status 04/12/2014 0.79 0.7 - 1.4 mg/dL Final 06/11/2011 0.75 0.7 - 1.4 mg/dL Final 09/04/2009 0.77 0.7 - 1.4 mg/dL Final eGFR-All Other Races Date Value Ref Range Status 04/12/2014 >60 . Final Comment: eGFR (Estimated GFR) Units of measure: mL/min/1.73 meters squared eGFR is derived from the reexpressed MDRD Study equation using the following parameters: serum creatinine, age, gender and race. The creatinine assay has been calibrated to be traceable to IDMS. An eGFR <60 mL/min/1.73m2 for >3 months is consistent with chronic kidney disease. Refer to KDOQI guidelines for clinical interpretation. eGFR- Date Value Ref Range Status 04/12/2014 >60 Final P.O.C.T. RESULTS: N/A May 14, [address] PERFORMED: No IV SITE: Ambulatory: A peripheral IV was started in the Left antecubital site with a Angio cath: 22 gauge. POST EXAM PIV STATUS: Discontinued PROCEDURE TYPE: NM Stress: 13.1mCi [id number]-[id number] was administered IV for Rest Imaging at 1145 by Juana BUTLER,RT(N). 33.3 mCi [id number]-[id number] was administered IV for Stress Imaging at 1311 by RT Myesha(R). PATIENT DISCHARGED TO: Ambulatory patient, left NM department area. A Diagnostic radioactive procedure has taken place, with no further precautions necessary other than routine body substance precautions. More information regarding radiation safety can be found using this link: [email or web address] [email or web address]-%20Diagnostic%20Nucl ear%20Medicine%20Procedures.pdf SIGNATURE: Lucero RT Nancy(R) PATIENT NAME: Marie Kasey Sexton DATE: May 14, 2023 TIME: 11:48 AM PAGER/CONTACT #: RADIOLOGY SERVICE PROGRESS NOTE SERVICE DATE: 05/14/2023 SERVICE TIME: 1:04 PM PATIENT IDENTITY VERIFICATION COMPLETED USING TWO (2) STANDARD IDENTIFIERS: Name and Date of confirmed by patient verbally and Name and Date of confirmed by identification band PATIENT GENDER DATA: female ALLERGIES: Reviewed and unchanged MEDICATIONS REVIEWED BY: Inker Machine PROCEDURE TYPE: NM STRESS: 0.4 mg of Lexiscan was administered IV at 1311 by Mai Valencia RN. Reversal agent used: None. IV SITE: Ambulatory: A Saline lock was inserted per protocol POST EXAM PIV STATUS: Discontinued PATIENT DISCHARGED TO: Ambulatory patient, left NM department area. A Diagnostic radioactive procedure has taken place, with no further precautions necessary other than routine body substance precautions. More information regarding radiation safety can be found using this link: [email or web address] [email or web address]-%20Diagnostic%20Nucl ear%20Medicine%20Procedures.pdf SIGNATURE: Mai Valencia RN PATIENT NAME: Marie Kasey Sexton DATE: May 14, 2023 TIME: 1:04 PM PAGER/CONTACT #:[phone] documented in this encounter [facility] 05-12-2023 Instructions Indiana Clemens PA-C - 05/12/2023 9:32 AM EDT PATIENT PREOPERATIVE INSTRUCTIONS Macario Santos* has scheduled you for your procedure at this surgery center: [facility]: [phone] --[id number] [address]. Please check in on the 1st floor at registration desk 6. Please read below carefully for your personalized instructions. Dietary Restrictions: - No solid food after midnight. - You may have 12 ounces of clear liquids (water, clear juices such as apple juice or gatorade, carbonated beverages, clear tea, black coffee, jello) until 2 hours before scheduled arrival at facility. - NO milk / coffee creamer - NO pulp juices (ex. [place] juice) Is Patient Diabetic:Yes Preoperative Instructions for Patient's with Diabetes Mellitus Diabetic Medication Instructions: Please take the following meds (Metformin) at your usual dose the day before surgery. DO NOT TAKE THE MORNING OF SURGERY; Trajenta, Metformin, Actos/Pioglitazone and Amaryl/Glimepiride. Insulin Medication Instructions: Please take the following medications at your usual dose the day before surgery (Humalog or Novolog). DO NOT TAKE THE MORNING OF SURGERY: Afrezza, Novolog, Regular Insulin, Apidra and Humalog For the following medication (LANTUS), take 75% of your usual dose the evening before surgery. If not possible to take 75% of your usual dose then take your full dose. DO NOT TAKE ON THE MORNING OF SURGERY: Basaglar, Lantus, Levemir, Rougeo and Tresiba Medications: Unless instructed differently below, stay on all of your medications until your surgery. Approved medications to take the morning of surgery with a sip of water: Synthroid, Inhalers, Gabapentin, and Fluoxetine (Prozac) Do NOT take Hydrochlorothiazide the morning of surgery If you take any medications for erectile dysfunction-Cialis (Tadalafil), Levitra, Staxyn (Vardenafil) Viagra (Sildenenafil please do not take these for 48 hours before surgery. If you start any new medications after today's visit, please contact the surgeon's office. Blood Thinning Medications: - Stop NSAIDS (Ibuprofen, Advil, Aleve, Motrin, Celebrex, Mobic, etc.) 7 days before surgery, as directed by your surgeon. - Stop Aspirin 7 days before surgery, as directed by your surgeon. - Stop Vitamin E, ALL multi-vitamins, herbals and dietary supplements 7 days before surgery. - You may take Tylenol (Acetaminophen) or any of your pain medications that do not contain aspirin or NSAIDS as needed. Important Reminders: - If you use CPAP/BIPAP, bring the machine with you to the surgery center. - If you are prescribed inhalers for breathing, continue using them. - Candy, mints, and tobacco products are NOT permitted the morning of surgery. - Hearing aids, dentures and glasses may be worn the morning of surgery. - NO jewelry, body piercings, makeup, hairpins or contacts are to be worn the day of surgery. If you develop symptoms such as a fever, cold, or flu, or have other changes to your health within TWO DAYS of scheduled surgery or the morning of surgery, please contact the surgery center above. Personal Belongings: -Please have photo ID and insurance cards. -If you do not have a copy of advance directives on file with us, please bring a copy with you on the day of surgery. - Leave ALL valuables and money at home or with family members. For Outpatient Procedures: - YOU MUST HAVE A RESPONSIBLE SDE TAKE YOU HOME. A DIESEL LOCOMOTIVE ENGINEER OR PHARMACY AIDE CANNOT BE MADE A RESPONSIBLE SDE. - We recommend that a responsible person stays with you overnight to take care of you. - You cannot stay in a hotel alone after outpatient surgery. You will not be permitted to have your surgery, if you do not have someone to take care of you. Arrival Time for Surgery: - The Surgery Center or hospital where you are having surgery will call the afternoon before surgery (or Wednesday for Wednesday surgery) with a scheduled arrival time. - If you have not heard by 4 pm, please contact the surgery center above. Please be aware that emergency situations arise, which may delay or change your surgical time. If this happens, we will notify you as soon as possible and regret any inconvenience. If you already have an Advance Directive, please fax a copy to [phone] or email to for it to be added to your chart. If you do not have an Advance Directive, you can find the appropriate form and more information at [email or web address]. We recommend that you complete the Advance Directive form found on the website and bring it with you the day of your surgery. It can be witnessed and scanned into your chart that day. Indiana Clemens PA-C documented in this encounter [facility] 05-12-2023 History and physical note HISTORY AND PHYSICAL EXAMINATION SERVICE DATE: 05/12/2023 SERVICE TIME: 9:20 AM PRIMARY CARE PHYSICIAN: Collins Andrews MD REASON FOR VISIT: Marie Sexton is a 63 year old female who is scheduled for ARTHRODESIS ANKLE - Right ARTHRODESIS SUBTALAR - Right REMOVAL HARDWARE ANKLE - Right DIAGNOSTIC BONE MARROW ASPIRATION(S) - Right REPAIR DISLOCATING PERONEAL TENDONS/FIBULAR OSTEOTOMY - Right at the request of Dr. Macario Santos for consultation. My final recommendation will be communicated back to the requesting physician by way of shared medical record or letter. 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 Hx of diabetic foot ulcer and multiple lower extremity surgeries. Recommended for above surgery and elected to proceed. 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 numbness and tingling hands Snores Ulcer bilateral feet/ had for 2 years left foot and right foot for about 4 months / uses ointment to feet once a day. / ulcers are draining blood or no yellow or green draininage. Varicose veins Weakness arms and legs PAST SURGICAL HISTORY Procedure Laterality Date LIG/TRNSXJ FLP TUBE ABDL/VAG APPR UNI/BI Tubal ligation PAST SURGICAL HISTORY OF surgery to left foot x 5 PAST SURGICAL HISTORY OF right foot surgery x2 FAMILY HISTORY Problem Relation Age of Onset Anesthesia Problems No Family History SOCIAL HISTORY: Social History Tobacco Use Smoking status: Former Packs/day: 1.50 Years: 10.00 Pack years: 15.00 Types: Cigarettes Quit date: 04/24/2009 Years since quittin.0 Substance Use Topics Alcohol use: Yes Comment: occasional Drug use: No Prior to Admission medications as of 05/12/23 09 Medication Sig Last Dose Taking FLUoxetine (PROZAC) 40 mg capsule Take by mouth. Yes insulin 70-30 aspart protamine-aspart (NOVOLOG MIX 70/30) 100 units/mL injection INJECT 26 UNITS TWICE DAILY SUBCUTANEOUSLY Taking Yes omega-3 acid ethyl esters (LOVAZA) 1 gram capsule Take by mouth. Taking Yes vit B complex no.12/niacin,B3, (VITAMIN B COMPLEX NO.12-NIACIN ORAL) Take 2,500 mg by mouth. Taking Yes Biotin 10,000 mcg cap Take by mouth. Taking Yes Cholecalciferol, Vitamin D3, 25 mcg (1,000 unit) cap Take 1,000 Units by mouth once daily. Taking Yes TURMERIC ORAL Take 500 mg by mouth. Taking Yes turmeric (CURCUMIN MISC) Taking Yes HYDROCODONE-ACETAMINOPHEN 7.5-300 mg tab Taking Yes zolpidem (AMBIEN) 5 mg tablet Take 1 tablet by mouth at bedtime as needed (for insomnia.). Taking Yes CINNAMON BARK-CHROMIUM PICOLIN ORAL Take 2,000 mg by mouth twice daily. Taking Yes LANTUS 100 unit/mL injection 70 Units daily at bedtime. Indications: DIABETES MELLITUS Taking Yes LEVOTHYROXINE 100 mcg tablet Taking Yes INSULIN SYRINGE-NEEDLE U-100 1 mL 29 x 1/2 syrg Taking Yes TRAZODONE 50 mg tablet Take 50 mg by mouth daily at bedtime. Taking Yes ZOLPIDEM 10 mg tab Take 10 mg by mouth daily at bedtime. Taking Yes INSULIN REGULAR, HUMAN (HUMULIN R INJECTION) 20 Units by INJECTION(UNSPECIFIED PARENTERAL ROUTES) route three times daily with meals. Taking Yes metFORMIN 1,000 mg ORAL tablet Take 1,000 mg by mouth twice daily with meals. Taking Yes hydrochlorothiazide 25 mg ORAL tablet Take 25 mg by mouth once daily. Taking Yes gabapentin 300 mg ORAL capsule Take 800 mg by mouth once daily. PATIENT STATES SHE TAKES ONE TO FOUR TIMES A DAY Taking Yes budesonide-formoterol (SYMBICORT) 160-4.5 mcg/actuation inhaler Inhale 2 Puffs as instructed as needed. Taking Yes albuterol HFA (PROVENTIL HFA, VENTOLIN HFA) 90 mcg/actuation inhaler Inhale 2 Puffs as instructed as needed. Taking Yes No medication comments found. ALLERGIES Allergen Reactions Codeine GI Upset Demerol [Meperidine* Other: See Comments patient unsure Morphine Itching COVID VACCINATION STATUS: Fully vaccinated REVIEW OF SYSTEMS: PAIN ASSESSMENT: Pain Pain Level: 7 Pain Location: Ankle-Right Description: Burning, Shooting, Throbbing Duration Units: Years Frequency: Continuous General: No weight loss, malaise or fevers. Neuro: No history of TIA's, stroke, TRANSIT DEPARTMENT CLERK tumor, impaired sensorium, hemiplegia, paraplegia or quadraplegia. No neurological symptoms or problems. + peripheral neuropathy Respiratory: No history of current cough or dyspnea, or pneumonia in the past 6 weeks. No history of respiratory/pulmonary symptoms or problems. + former smoker + asthma uses inhalers PRN Cardiovascular: No history of HTN requiring medication, no history of angina, CHF, DE, cardiac surgery or stents. Denies rest pain, gangrene or revascularization/amputation for PVD. No history of cardiovascular symptoms or problems. + swelling foot on HCTZ GI: No history of GI symptoms or problems. No history of esophageal varices, recent ascites, or ETOH greater than 2 drinks per day. 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 : Denies, No LMP recorded. Endocrine: Diabetes Mellitus on insulin, Diabetes Mellitus on oral agent + DM II on insulin and Metformin last A1C 6.4 Hematology: No history of bleeding or clotting disorder. Pt is not taking anti-coagulation or platelet medications. No history of hematological symptoms or problems. Oncology: No history of CA metastasis, chemo within 30 days, or radiotherapy within 90 days. Has not lost 10% of body wt in 6 months. No history of oncological symptoms or problems. Psych: No history of psychiatric symptoms or problems. Musculoskeletal: Joint pain Skin: Negative for lesions, rash and itching. Objective PHYSICAL EXAM: VITALS: BP 136/79 Pulse 75 Temp (Src) 98.2 (Oral) Resp 18 Ht 6' 1 (1.85m) Wt 201 lb (91.2kg) SpO2 95% BMI 26.52 kg/(m^2). General: Alert and oriented, No acute distress, Healthy appearance Skin: Normal color, no rash, no lesions. HEENT: EOM, pupils equal, round and reactive. Cardiovascular: Normal S1 & S2, no rubs, murmurs or gallops. No JVD. Pulse regular. Lungs: Normal breath sounds, no wheezes or crackles. Extremities: boot to RLE Neurological: Normal cognition and motor skills. Pulses: Carotid and radial pulses normal +2. Diagnostic tests reviewed for today's visit: Lab Value Units Date High Low HB No results within date range. HCT No results within date range. WBC No results within date range. PLT No results within date range. NA No results within date range. K No results within date range. GLUC No results within date range. BUN No results within date range. CREAT No results within date range. PTSEC No results within date range. INR No results within date range. APTT No results within date range. ALT No results within date range. AST No results within date range. TBILI No results within date range. TSH No results within date range. Lab Value Units Date High Low HCGQT No results within date range. UHCG No results within date range. HCG, BODY* No results within date range. Lab Value Units Date High Low ABORHD No results within date range. ABSCREEN No results within date range. Hemoglobin A1C (%) Date Value 04/12/2014 5.7 All in Epic Assessment/Plan Diabetes mellitus type 2 with neurological manifestations (HCC) Assessment: DM II with neuropathy. On insulin and metformin. Last A1C 6.4. Follows w/ PCP and compliant with medications. Does not check fasting glucose often. HTN (hypertension) Assessment: BP 136/79 - reports that she is taking HCTZ for foot swelling not hypertension Former smoker Assessment: former smoker, 15 pack years Asthma Assessment: uses inhalers PRN typically when it is hot outside METS: Patient denies any chest pain or undue shortness of breath with the above physical activity. Limited most or all of the time (uses scooter, mobility device) Uses crutches and wheelchair - completely nonweightbearing on the right ASA Class: 3 ANESTHESIA FINDINGS: Intubation History: No history of difficult intubation Significant Anesthesia Considerations: None Airway Exam: General: Normal appearance Mallampati Score is CLASS III ULBT: Class I - Lower incisors can bite the upper lip above the herrera line Neck: Normal appearance and function, Distance from hyoid to mentum during neck extension is at least 3 finger breaths Mouth: Normal tongue size and Mouth opening greater than 2 finger breaths Dentition: Upper denture Airway History: No abnormal airway history Sleep Apnea Probability Snores loudly: No Tired, fatigued or sleepy in daytime: No Stops breathing or choking/gasping during sleep: No High blood pressure: No Sleep Apnea Probability Score 05/05/2023 Sleep Apnea Screen V2 18 (Sleep study not recommended) PLAN This patient is optimally prepared for surgery PENDING stress test / cardiac work up scheduled 05/14 CONSULTS: The following consults have been initiated at this time: seen by Cardiology 05/07 The Following Tests/Procedures Have Been Initiated: Labs not indicated per [facility] protocol, EKG not indicated per [facility] protocol Planned Anesthetic: General Instructions Given to Patient: Instructions located in the after visit summary. Patient given verbal and written preop instructions and voices comprehension and compliance. SIGNATURE: Indiana Clemens PA-C PATIENT NAME: Marie Sexton DATE: May 12, 2023 TIME: 9:19 AM documented in this encounter [facility] 05-07-2023 Note HNO ID: [id number] Author: Dana Goyal MD Service: ? Author Type: Physician Type: Progress Notes Filed: 05/07/2023 3:11 PM Note Text: [facility] [place] Natalia Shrestha Department of Cardiovascular Medicine SECTION OF INTERVENTIONAL CARDIOLOGY OUTPATIENT VISIT DATE 05/07/2023 OUTPATIENT VISIT TYPE New PRIMARY CARE PHYSICIAN: Collins Andrews ([facility]) [address] [place], [place] [id number] REFERRING PHYSICIAN: No referring provider defined for this encounter. CHIEF COMPLAINT: Patient presents with: New Patient HISTORY OF PRESENT ILLNESS: Ms. Sexton is a 63 year old female who presents today for preoperative cardiovascular examination prior to right ankle surgery. Patient has a history of diabetic foot ulcer and multiple bilateral lower extremity surgeries. She is not able to walk 4 blocks or climb 2 flights of stairs given her multiple surgeries and diabetic foot ulcer. She denies any ongoing chest pain, shortness of breath, dyspnea on exertion, orthopnea, PND, lightheadedness, dizziness, loss of consciousness. Risk factors for coronary artery disease hyperlipidemia, history of smoking, diabetes She denies chest pain, shortness of breath, dyspnea on exertion, orthopnea, PND, palpitations, lightheadedness, syncope, leg swelling, cough, and wheezing. Diet / Nutrition: Is working on her diet to control her diabetes last A1c is 6.2 Weight: no change since last visit Exercise: As above. 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 numbness and tingling hands Snores Ulcer bilateral feet/ had for 2 years left foot and right foot for about 4 months / uses ointment to feet once a day. / ulcers are draining blood or no yellow or green draininage. Varicose veins Weakness arms and legs PAST SURGICAL HISTORY Procedure Laterality Date LIG/TRNSXJ FLP TUBE ABDL/VAG APPR UNI/BI Tubal ligation PAST SURGICAL HISTORY OF surgery to left foot x 5 PAST SURGICAL HISTORY OF right foot surgery x2 SOCIAL HISTORY Social History Tobacco Use Smoking status: Former Packs/day: 1.50 Years: 10.00 Pack years: 15.00 Types: Cigarettes Quit date: 04/24/2009 Years since quittin.0 Substance Use Topics Alcohol use: Yes Comment: occasional Drug use: No No family history on file. ALLERGIES: ALLERGIES Allergen Reactions Codeine GI Upset Demerol [Meperidine* Other: See Comments patient unsure Morphine Itching MEDICATIONS: insulin 70-30 aspart protamine-aspart (NOVOLOG MIX 70/30) 100 units/mL injection INJECT 26 UNITS TWICE DAILY SUBCUTANEOUSLY omega-3 acid ethyl esters (LOVAZA) 1 gram capsule Take by mouth. meloxicam (MOBIC) 15 mg tablet Take 1 tablet by mouth once daily. vit B complex no.12/niacin,B3, (VITAMIN B COMPLEX NO.12-NIACIN ORAL) Take 2,500 mg by mouth. Biotin 10,000 mcg cap Take by mouth. Cholecalciferol, Vitamin D3, 25 mcg (1,000 unit) cap Take 1,000 Units by mouth once daily. TURMERIC ORAL Take 500 mg by mouth. turmeric (CURCUMIN MISC) HYDROCODONE-ACETAMINOPHEN 7.5-300 mg tab cephALEXin 500 mg capsule Take 1 capsule by mouth three times daily. zolpidem (AMBIEN) 5 mg tablet Take 1 tablet by mouth at bedtime as needed (for insomnia.). CINNAMON BARK-CHROMIUM PICOLIN ORAL Take 2,000 mg by mouth twice daily. LANTUS 100 unit/mL injection 70 Units daily at bedtime. Indications: DIABETES MELLITUS LEVOTHYROXINE 100 mcg tablet INSULIN SYRINGE-NEEDLE U-100 1 mL 29 x 1/2 syrg TRAZODONE 50 mg tablet Take 50 mg by mouth daily at bedtime. ZOLPIDEM 10 mg tab Take 10 mg by mouth daily at bedtime. INSULIN REGULAR, HUMAN (HUMULIN R INJECTION) 20 Units by INJECTION(UNSPECIFIED PARENTERAL ROUTES) route three times daily with meals. metFORMIN 1,000 mg ORAL tablet Take 1,000 mg by mouth twice daily with meals. hydrochlorothiazide 25 mg ORAL tablet Take 25 mg by mouth once daily. gabapentin 300 mg ORAL capsule Take 800 mg by mouth once daily. PATIENT STATES SHE TAKES ONE TO FOUR TIMES A DAY budesonide-formoterol (SYMBICORT) 160-4.5 mcg/actuatio (more content not included)... [facility] 05-07-2023 History of Present illness Narrative Images from the original note were not included. [facility] [place] Natalia Shrestha Department of Cardiovascular Medicine SECTION OF INTERVENTIONAL CARDIOLOGY OUTPATIENT VISIT DATE 05/07/2023 OUTPATIENT VISIT TYPE New PRIMARY CARE PHYSICIAN: Collins Andrews ([facility]) [id number] [phone] REFERRING PHYSICIAN: No referring provider defined for this encounter. CHIEF COMPLAINT: Patient presents with: New Patient HISTORY OF PRESENT ILLNESS: Ms. Sexton is a 63 year old female who presents today for preoperative cardiovascular examination prior to right ankle surgery. Patient has a history of diabetic foot ulcer and multiple bilateral lower extremity surgeries. She is not able to walk 4 blocks or climb 2 flights of stairs given her multiple surgeries and diabetic foot ulcer. She denies any ongoing chest pain, shortness of breath, dyspnea on exertion, orthopnea, PND, lightheadedness, dizziness, loss of consciousness. Risk factors for coronary artery disease hyperlipidemia, history of smoking, diabetes She denies chest pain, shortness of breath, dyspnea on exertion, orthopnea, PND, palpitations, lightheadedness, syncope, leg swelling, cough, and wheezing. Diet / Nutrition: Is working on her diet to control her diabetes last A1c is 6.2 Weight: no change since last visit Exercise: As above. 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 numbness and tingling hands Snores Ulcer bilateral feet/ had for 2 years left foot and right foot for about 4 months / uses ointment to feet once a day. / ulcers are draining blood or no yellow or green draininage. Varicose veins Weakness arms and legs PAST SURGICAL HISTORY Procedure Laterality Date LIG/TRNSXJ FLP TUBE ABDL/VAG APPR UNI/BI Tubal ligation PAST SURGICAL HISTORY OF surgery to left foot x 5 PAST SURGICAL HISTORY OF right foot surgery x2 SOCIAL HISTORY Social History Tobacco Use Smoking status: Former Packs/day: 1.50 Years: 10.00 Pack years: 15.00 Types: Cigarettes Quit date: 04/24/2009 Years since quittin.0 Substance Use Topics Alcohol use: Yes Comment: occasional Drug use: No No family history on file. ALLERGIES: ALLERGIES Allergen Reactions Codeine GI Upset Demerol [Meperidine* Other: See Comments patient unsure Morphine Itching MEDICATIONS: insulin 70-30 aspart protamine-aspart (NOVOLOG MIX 70/30) 100 units/mL injection INJECT 26 UNITS TWICE DAILY SUBCUTANEOUSLY omega-3 acid ethyl esters (LOVAZA) 1 gram capsule Take by mouth. meloxicam (MOBIC) 15 mg tablet Take 1 tablet by mouth once daily. vit B complex no.12/niacin,B3, (VITAMIN B COMPLEX NO.12-NIACIN ORAL) Take 2,500 mg by mouth. Biotin 10,000 mcg cap Take by mouth. Cholecalciferol, Vitamin D3, 25 mcg (1,000 unit) cap Take 1,000 Units by mouth once daily. TURMERIC ORAL Take 500 mg by mouth. turmeric (CURCUMIN MISC) HYDROCODONE-ACETAMINOPHEN 7.5-300 mg tab cephALEXin 500 mg capsule Take 1 capsule by mouth three times daily. zolpidem (AMBIEN) 5 mg tablet Take 1 tablet by mouth at bedtime as needed (for insomnia.). CINNAMON BARK-CHROMIUM PICOLIN ORAL Take 2,000 mg by mouth twice daily. LANTUS 100 unit/mL injection 70 Units daily at bedtime. Indications: DIABETES MELLITUS LEVOTHYROXINE 100 mcg tablet INSULIN SYRINGE-NEEDLE U-100 1 mL 29 x 1/2 syrg TRAZODONE 50 mg tablet Take 50 mg by mouth daily at bedtime. ZOLPIDEM 10 mg tab Take 10 mg by mouth daily at bedtime. INSULIN REGULAR, HUMAN (HUMULIN R INJECTION) 20 Units by INJECTION(UNSPECIFIED PARENTERAL ROUTES) route three times daily with meals. metFORMIN 1,000 mg ORAL tablet Take 1,000 mg by mouth twice daily with meals. hydrochlorothiazide 25 mg ORAL tablet Take 25 mg by mouth once daily. gabapentin 300 mg ORAL capsule Take 800 mg by mouth once daily. PATIENT STATES SHE TAKES ONE TO FOUR TIMES A DAY budesonide-formoterol (SYMBICORT) 160-4.5 mcg/actuation inhaler Inhale 2 Puffs as instructed as needed. albuterol HFA (PROVENTIL HFA, VENTOLIN HFA) 90 mcg/actuation inhaler Inhale 2 Puffs as instructed as needed. REVIEW OF SYSTEMS: GENERAL: negative for: fevers, chills, and change in weight HEENT: negative for: headaches, hearing loss, difficulty swallowing, visual changes, nose bleeds, dentures, own teeth SKIN: rashes, lesions, and ulcers RESPIRATORY: SEE HPI CARDIOVASCULAR: See HPI GASTROINTESTINAL: negative for: abdominal pain, nausea, vomiting, difficulty or painful swallowing, and melanotic stools GENITOURINARY: negative for: dysuria, frequency, nocturia, and male potency MUSCULOSKELETAL: negative for: joint pain, joint swelling, muscle pain or myalgias, and pain with walking NEUROLOGIC: negative for: numbness, tingling, and sensation of pins and needles HEMATOLOGY: negative for: bruising easily, prolonged bleeding, anemia, and cancer ENDOCRINE: negative for: cold or heat intolerance, polyuria, polydipsia, goiter, diabetes, and thyroid disease PSYCH: negative for: sleep disturbance, mood disorders, and recent psychosocial stressors PHYSICAL EXAMINATION: BP 120/66 Pulse 68 General: Well appearing, in no acute distress, speaking in complete sentences. Skin: No clubbing, no cyanosis. Head/Eyes: Extra ocular movements intact Mouth: Teeth in good repair. Neck: No jugular venous distention, no carotid bruits, carotids have a normal upstroke, no palpable thyromegaly. Lungs: Clear to auscultation and no rales Heart: Regular rhythm, PMI not displaced, S1, S2 normal, no S3, no S4, no heaves, no rub and no murmur. PV Pulses:Pulses intact Abdomen: Soft, nontender, bowel sounds normal, no palpable organomegaly, no bruits. Extremities: No peripheral edema . Grade 2/4 distal pulses bilaterally. Edema Scale: No Musculoskeletal: Normal gait and ambulation Neuro: Oriented to time, place and person CARDIOVASCULAR MEDICINE TESTING: Electrocardiogram: Normal sinus rhythm without any acute signs of ischemia I have personally reviewed the Electrocardiogram. IMPRESSION: Ms. Sexton is a 63 year old female who presents for preoperative cardiovascular examination prior to repeat right ankle surgery for fixation of the joint given her Charcot joint. She is not able to perform 4 METS of exercise and therefore should be evaluated for ischemia given her risk factors prior to proceeding with surgery. We will obtain a nuclear stress test and lower extremity noninvasive testing to assess for peripheral arterial disease as well given the history of amputations. Pad (peripheral artery disease) (hcc) (primary encounter diagnosis) Preoperative cardiovascular examination Diabetes mellitus type 2 with neurological manifestations (hcc) PLAN AND RECOMMENDATIONS: -Nuclear stress test - DAYNA/PVR and lower extremity ultrasounds -Heart healthy diet counseling performed -age and risk appropriate malignancy screening per PCP -smoking abstinence reinforced 3-10 minutes -if patient has recurrent or worsening symptoms, patient is instructed to come to the ED or call 911 -patient understands and agrees with the plan - Return to clinic in 3 months CONTACT INFORMATION: Dana Goyal M.D. Section of Interventional Cardiology & Endovascular Interventions Natalia Shrestha Department of Cardiovascular Medicine Heart, [facility] [place] [facility] Office Office Pager [phone] documented in this encounter [facility] 05-05-2023 Miscellaneous Notes planner scheduler spoke to patient with her daughter(Jennifer) regarding 05/17/23 surgery with . [facility] documented in this encounter [facility] 05-03-2023 Note HNO ID: [id number] Author: Macario Santos DPM Service: ? Author Type: Physician Type: Progress Notes Filed: 05/10/2023 2:05 PM Note Text: PODIATRIC MEDICINE AND SURGERY OFFICE NOTE Complaint: Right Charcot surgical referral HPI: This 63 year old female presents to the clinic today to discuss the surgical options and to review her CT scan. Patient was reluctant to go forward with a fusion but after a long discussion with the patient and her daughter today, she understands that definitive fixation for her Charcot and collapsing ankle is more appropriate than multiple other surgeries. She is here to discuss her right ankle fusion. 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 numbness and tingling hands Snores Ulcer bilateral feet/ had for 2 years left foot and right foot for about 4 months / uses ointment to feet once a day. / ulcers are draining blood or no yellow or green draininage. Varicose veins Weakness arms and legs PAST SURGICAL HISTORY Procedure Laterality Date LIG/TRNSXJ FLP TUBE ABDL/VAG APPR UNI/BI Tubal ligation PAST SURGICAL HISTORY OF surgery to left foot x 5 PAST SURGICAL HISTORY OF right foot surgery x2 No current facility-administered medications for this visit. ALLERGIES Allergen Reactions Codeine GI Upset Demerol [Meperidine* Other: See Comments patient unsure Morphine Itching No family history on file. Social History Tobacco Use Smoking status: Former Packs/day: 1.50 Years: 10.00 Pack years: 15.00 Types: Cigarettes Quit date: 04/24/2009 Years since quittin.0 Substance Use Topics Alcohol use: Yes Comment: occasional Drug use: No Current Opioids Analgesic Opioid Hydrocodone Combinations Start End HYDROCODONE-ACETAMINOPHEN 7.5-300 mg tab 04/24/2014 Class: Historical Med Analgesic Opioid Hydrocodone and Non-Salicylate Combinations Start End HYDROCODONE-ACETAMINOPHEN 7.5-300 mg tab 04/24/2014 Class: Historical Med CHAYITO Modifiable Risk Factors (MoRF) Obesity Unknown Risk High: BMI > 40 Moderate: BMI 30-40 Normal: BMI < 30 Diabetes Moderate Risk High: A1C > 8 Moderate: A1C 7-8 Normal: A1C < 7 Smoking normal High: Current smoker Normal: Non smoker Anemia normal High: Hgb < 11.5 (women) N/A: Hgb >= 11.5 (women) Nutritional Status normal High: Alb<3.4, or prealb<15, or serum transferrin<200, or total lymphocyte count<1500 Normal: normal labs Narcotics Use High Risk High:NarxCare >=300 Moderate: 100-299 Normal: 0-99 Obesity: height and/or weight are out of date (There is no height and/or weight reading in the past 365 days, so the below BMI readings may be inaccurate) BMI Readings from Last 3 Encounters: 02/24/21 : 29.03 kg/m? 06/27/14 : 28.50 kg/m? 05/30/14 : 28.50 kg/m? Diabetes: Well controlled - Marie has been diagnosed with Type 2 Diabetes. Her last Hemoglobin A1C was 5.7 (04/12/2014). NarxCare score NARX Narcotics: 390 (05/03/2023 3:15 PM) --------- REVIEW OF SYSTEMS: CONSTITUTIONAL: No fevers, chills, nightsweats, unintended weight loss HEENT: Denies frequent or severe headaches, nasal congestion/sinus symptoms, problematic allergy problems. EYES: No diplopia or blurry vision. CARDIOVASCULAR: No chest pain, dyspnea, palpitations, orthopnea, PND. PULM: No dyspnea, unexplained cough. GI: No dysphagia/odynophagia, problematic reflux, constipation, diarrhea, changes in stool habits, hematochezia, melena. : No new urinary complaints, including dysuria, gross hematuria or pyuria. NEURO: No new balance problems, peripheral weakness/paresthesias or numbness of concern. MUSC-SKEL: No new joint pain, swelling, or erythema. PSY: No concerns regarding depression, anxiety or panic. INTEGUMENTARY: Skin changes as noted below. I have confirmed and edited as necessary, the PFSH and ROS obtained by others. OBJECTIVE: Patient is oriented to person, place, and time and is in no acute distress. Vascular Exam: Dorsalis Pedis pulses are palpable b (more content not included)... [facility] 05-03-2023 History of Present illness Narrative Images from the original note were not included. PODIATRIC MEDICINE & SURGERY OFFICE NOTE Complaint: Right Charcot surgical referral HPI: This 63 year old female presents to the clinic today to discuss the surgical options and to review her CT scan. Patient was reluctant to go forward with a fusion but after a long discussion with the patient and her daughter today, she understands that definitive fixation for her Charcot and collapsing ankle is more appropriate than multiple other surgeries. She is here to discuss her right ankle fusion. 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 numbness and tingling hands Snores Ulcer bilateral feet/ had for 2 years left foot and right foot for about 4 months / uses ointment to feet once a day. / ulcers are draining blood or no yellow or green draininage. Varicose veins Weakness arms and legs PAST SURGICAL HISTORY Procedure Laterality Date LIG/TRNSXJ FLP TUBE ABDL/VAG APPR UNI/BI Tubal ligation PAST SURGICAL HISTORY OF surgery to left foot x 5 PAST SURGICAL HISTORY OF right foot surgery x2 No current facility-administered medications for this visit. ALLERGIES Allergen Reactions Codeine GI Upset Demerol [Meperidine* Other: See Comments patient unsure Morphine Itching No family history on file. Social History Tobacco Use Smoking status: Former Packs/day: 1.50 Years: 10.00 Pack years: 15.00 Types: Cigarettes Quit date: 04/24/2009 Years since quittin.0 Substance Use Topics Alcohol use: Yes Comment: occasional Drug use: No Current Opioids Analgesic Opioid Hydrocodone Combinations Start End HYDROCODONE-ACETAMINOPHEN 7.5-300 mg tab 04/24/2014 Class: Historical Med Analgesic Opioid Hydrocodone and Non-Salicylate Combinations Start End HYDROCODONE-ACETAMINOPHEN 7.5-300 mg tab 04/24/2014 Class: Historical Med CHAYITO Modifiable Risk Factors (MoRF) Obesity Unknown Risk High: BMI > 40 Moderate: BMI 30-40 Normal: BMI < 30 Diabetes Moderate Risk High: A1C > 8 Moderate: A1C 7-8 Normal: A1C < 7 Smoking normal High: Current smoker Normal: Non smoker Anemia normal High: Hgb < 11.5 (women) N/A: Hgb >= 11.5 (women) Nutritional Status normal High: Alb<3.4, or prealb<15, or serum transferrin<200, or total lymphocyte count<1500 Normal: normal labs Narcotics Use High Risk High:NarxCare >=300 Moderate: 100-299 Normal: 0-99 Obesity: height and/or weight are out of date (There is no height and/or weight reading in the past 365 days, so the below BMI readings may be inaccurate) BMI Readings from Last 3 Encounters: 02/24/21 : 29.03 kg/m 06/27/14 : 28.50 kg/m 05/30/14 : 28.50 kg/m Diabetes: Well controlled - April has been diagnosed with Type 2 Diabetes. Her last Hemoglobin A1C was 5.7 (04/12/2014). NarxCare score NARX Narcotics: 390 (05/03/2023 3:15 PM) REVIEW OF SYSTEMS: CONSTITUTIONAL: No fevers, chills, nightsweats, unintended weight loss HEENT: Denies frequent or severe headaches, nasal congestion/sinus symptoms, problematic allergy problems. EYES: No diplopia or blurry vision. CARDIOVASCULAR: No chest pain, dyspnea, palpitations, orthopnea, PND. PULM: No dyspnea, unexplained cough. GI: No dysphagia/odynophagia, problematic reflux, constipation, diarrhea, changes in stool habits, hematochezia, melena. : No new urinary complaints, including dysuria, gross hematuria or pyuria. NEURO: No new balance problems, peripheral weakness/paresthesias or numbness of concern. MUSC-SKEL: No new joint pain, swelling, or erythema. PSY: No concerns regarding depression, anxiety or panic. INTEGUMENTARY: Skin changes as noted below. I have confirmed and edited as necessary, the PFSH and ROS obtained by others. OBJECTIVE: Patient is oriented to person, place, and time and is in no acute distress. Vascular Exam: Dorsalis Pedis pulses are palpable bilateral. Posterior Tibial pulses are palpable bilateral. Capillary refill time brisk. Skin temperature of the bilateral lower extremity is warm to cool, proximal to distal. Varicosities are NOT observed bilaterally. Edema NOT noted. No palpable lymph nodes noted. Dermatological: Skin appears well hydrated and is without notable erythema or ecchymosis. Webspaces are clean, dry, and intact bilateral. No open lesions Neurological: Light touch sensation intact bilaterally. Gross sensation intact bilaterally. Protective sensation ABSENT at 5/5 non-callused sites randomly selected and tested bilaterally using a 5.07 SWMF. Musculoskelatal: Muscle strength +5/5 for all pedal muscle groups bilaterally. Right ankle unstable and mobile medial ankle joint in the coronal plane. Medial collapse of the right foot noted IMAGING: Last XR Foot - Impression Only XR FOOT GENERAL 3V AP/LAT/OBL BILAT Exam End: 02/24/2021 3:05 PM (Final result) Impression: IMPRESSION: Pes planus with mild degenerative change midfoot bilaterally. Remote postsurgical changes bilateral feet. No acute osseous abnormality. Unremarkable exam bilateral ankles. ... Last XR Ankle - Impression Only XR ANKLE GENERAL 3V AP/LAT/OBL RIGHT Exam End: 04/22/2023 2:26 PM (Final result) Impression: IMPRESSION: 1. Extensive postoperative changes at the hindfoot and midfoot without complication identified. First Aid Nurse: SUBHASH Transcribe Date/Time: Apr 23 2023 4:47P... Last CT Foot - Impression Only No resulted procedures found. Last CT Ankle - Impression Only CT ANKLE WO IVCON RIGHT Exam End: 04/22/2023 3:55 PM (Final result) Impression: IMPRESSION: Intact postoperative changes of the right foot and ankle as described. First Aid Nurse: SUBHASH Transcribe Date/Time: Apr 22 2023 4:18P... Last MRI Ankle - Impression Only MRI ANKLE WO IVCON RT Exam End: 04/29/2021 11:40 AM (Final result) Impression: IMPRESSION: POSTERIOR TIBIALIS TENOSYNOVITIS. 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 ABNORMAL APPEARANCES OF THE SPRING LIGAMENT AND CALCANEOFIBULAR LIGAMENT. FINDINGS SUGGESTIVE OF MILD PLANTAR FASCIITIS. DIABETIC MUSCLE ATROPHY. First Aid Nurse: SUBHASH ... Last MRI Foot - Impression Only No resulted procedures found. ASSESSMENT & PLAN: Discussion with the patient today including questions and answers regarding the etiology and treatment options for the current problems. Right ankle Charcot with failed deltoid repair attempts -CT scan reviewed with the patient and her daughter today. - Had a long discussion with the patient today regarding the previously discussed ankle fusion and she is now amenable to this. She wants to have this done as soon as possible. - All risks, benefits, complications and alternatives have been explained in detail to the patient, including but not limited to numbness, tingling, burning, over or under correction, problems or healing soft tissue or bone, nonunion, malunion, delayed union, chronic pain or disability, need for further surgery, infection, need for removal of hardware, loss of limb or life, and given these complications, the patient wishes to continue with surgical correction. All questions answered to the patient's satisfaction. No promises or guarantees given as to the outcome of the procedure. The patient was consented for the proposed procedure. Postoperative pain medications were discussed with the patient today. If they need further prescriptions, they will receive a pain management referral at that time. We will plan on a right foot hardware removal and a TTC fusion. All questions answered to the patient's apparent satisfaction. No further questions at this time. Patient to be seen in clinic postoperatively, to return to clinic earlier if any problems arise. Dr. Macario Santos DPM I spent a total of 40 minutes on the date of the service which included preparing to see the patient, [id number] patient care, completing clinical documentation, obtaining and/or reviewing separately obtained history, performing a medically appropriate examination, counseling and educating the patient/family/caregiver, and ordering medications, tests, or procedures. documented in this encounter [facility] 04-22-2023 Note HNO ID: [id number] Author: RT Moisés(Aristides) Service: ? Author Type: Technologist Type: Progress Notes Filed: 04/22/2023 3:56 PM Note Text: Radiology Service Progress Note PATIENT NAME: Marie Sexton DATE OF SERVICE: April 22, 2023 TIME: 3:56 PM PATIENT IDENTITY VERIFICATION COMPLETED USING TWO (2) IDENTIFIERS: Name and Date of confirmed by patient verbally. FALL SCREENING: Has the patient had 2 falls in the last year or 1 fall with injury or currently using an Ambulatory Assistive Device (Walker, Cane, Wheelchair, Crutches, etc.)? No PATIENT GENDER DATA: Female. status: : No status: NO. PATIENT RELEVANT IMPLANT DATA REVIEWED: Yes RADIOLOGY DEPARTMENT: CT; Exam(s) Completed: rt ankle PERIPHERAL IV DATA: Not applicable SIGNED BY: BARRIE Curiel) April 22, 2023 3:56 PM [facility] 04-22-2023 Note HNO ID: [id number] Author: ERIBERTO HebertR) Service: ? Author Type: Technologist Type: Progress Notes Filed: 04/22/2023 2:28 PM Note Text: Radiology Service Progress Note PATIENT NAME: Marie Sexton DATE OF SERVICE: April 22, 2023 TIME: 2:27 PM PATIENT IDENTITY VERIFICATION COMPLETED USING TWO (2) IDENTIFIERS: Name and Date of confirmed by patient verbally. FALL SCREENING: Has the patient had 2 falls in the last year or 1 fall with injury or currently using an Ambulatory Assistive Device (Walker, Cane, Wheelchair, Crutches, etc.)? Yes, Patient High Risk for Falls What interventions were put in place to prevent falls during this visit? Offered Assistance with Transfers/Clothing and Increased Observations by Caregivers PATIENT GENDER DATA: Female. status: : No status: NO. PATIENT RELEVANT IMPLANT DATA REVIEWED: Yes RADIOLOGY DEPARTMENT: General X-ray: Exam(s) Completed: Lower Extremity X-Ray(s): Tibia Fibula, Left and Ankle, Right PERIPHERAL IV DATA: Not applicable SIGNED BY: RT Anup(R) April 22, 2023 2:27 PM [facility] 04-22-2023 Note HNO ID: [id number] Author: Macario Santos DPM Service: ? Author Type: Physician Type: Progress Notes Filed: 05/03/2023 9:00 AM Note Text: PODIATRIC MEDICINE AND SURGERY OFFICE NOTE Complaint: Right Charcot surgical referral HPI: This 63 year old female presents to the clinic today as a surgical referral from . The patient has had most recent surgery on 03/22/2023 where she had a failed attempt at a deltoid repair. The patient has had 5-6 surgeries on this right lower extremity hoping to avoid a fusion but unfortunately it appears that the failed attempts is now pointing toward an ankle fusion. The patient states her hemoglobin A1c is 6.2% and she is trying her best to control her type 2 diabetes. Patient states that this collapse of her foot started about 5 years ago and has only gotten worse despite multiple surgical interventions. 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 numbness and tingling hands Snores Ulcer (HCC) bilateral feet/ had for 2 years left foot and right foot for about 4 months / uses ointment to feet once a day. / ulcers are draining blood or no yellow or green draininage. Varicose veins Weakness arms and legs PAST SURGICAL HISTORY Procedure Laterality Date LIGATE FALLOPIAN TUBE Tubal ligation PAST SURGICAL HISTORY OF surgery to left foot x 5 PAST SURGICAL HISTORY OF right foot surgery x2 No current facility-administered medications for this visit. ALLERGIES Allergen Reactions Codeine GI Upset Demerol [Meperidine* Other: See Comments patient unsure Morphine Itching No family history on file. Social History Tobacco Use Smoking status: Former Packs/day: 1.50 Years: 10.00 Pack years: 15.00 Types: Cigarettes Quit date: 04/24/2009 Years since quittin.0 Substance Use Topics Alcohol use: Yes Comment: occasional Drug use: No Current Opioids Analgesic Opioid Hydrocodone Combinations Start End HYDROCODONE-ACETAMINOPHEN 7.5-300 mg tab 04/24/2014 Class: Historical Med Analgesic Opioid Hydrocodone and Non-Salicylate Combinations Start End HYDROCODONE-ACETAMINOPHEN 7.5-300 mg tab 04/24/2014 Class: Historical Med CHAYITO Modifiable Risk Factors (MoRF) Obesity Unknown Risk High: BMI > 40 Moderate: BMI 30-40 Normal: BMI < 30 Diabetes Moderate Risk High: A1C > 8 Moderate: A1C 7-8 Normal: A1C < 7 Smoking normal High: Current smoker Normal: Non smoker Anemia normal High: Hgb < 11.5 (women) N/A: Hgb >= 11.5 (women) Nutritional Status normal High: Alb<3.4, or prealb<15, or serum transferrin<200, or total lymphocyte count<1500 Normal: normal labs Narcotics Use High Risk High:NarxCare >=300 Moderate: 100-299 Normal: 0-99 Obesity: height and/or weight are out of date (There is no height and/or weight reading in the past 365 days, so the below BMI readings may be inaccurate) BMI Readings from Last 3 Encounters: 02/24/21 : 29.03 kg/m? 06/27/14 : 28.50 kg/m? 05/30/14 : 28.50 kg/m? Diabetes: Well controlled - Marie has been diagnosed with Type 2 Diabetes. Her last Hemoglobin A1C was 5.7 (04/12/2014). NarxCare score NARX Narcotics: 391 (04/22/2023 1:46 PM) --------- REVIEW OF SYSTEMS: CONSTITUTIONAL: No fevers, chills, nightsweats, unintended weight loss HEENT: Denies frequent or severe headaches, nasal congestion/sinus symptoms, problematic allergy problems. EYES: No diplopia or blurry vision. CARDIOVASCULAR: No chest pain, dyspnea, palpitations, orthopnea, PND. PULM: No dyspnea, unexplained cough. GI: No dysphagia/odynophagia, problematic reflux, constipation, diarrhea, changes in stool habits, hematochezia, melena. : No new urinary complaints, including dysuria, gross hematuria or pyuria. NEURO: No new balance problems, peripheral weakness/paresthesias or numbness of concern. MUSC-SKEL: No new joint pain, swelling, or erythema. PSY: No concerns regarding depression, anxiety or panic. INTEGUMENTARY: Skin changes as noted below. I have confirmed an (more content not included)... [facility] 04-22-2023 History of Present illness Narrative Images from the original note were not included. PODIATRIC MEDICINE & SURGERY OFFICE NOTE Complaint: Right Charcot surgical referral HPI: This 63 year old female presents to the clinic today as a surgical referral from . The patient has had most recent surgery on 03/22/2023 where she had a failed attempt at a deltoid repair. The patient has had 5-6 surgeries on this right lower extremity hoping to avoid a fusion but unfortunately it appears that the failed attempts is now pointing toward an ankle fusion. The patient states her hemoglobin A1c is 6.2% and she is trying her best to control her type 2 diabetes. Patient states that this collapse of her foot started about 5 years ago and has only gotten worse despite multiple surgical interventions. 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 numbness and tingling hands Snores Ulcer (HCC) bilateral feet/ had for 2 years left foot and right foot for about 4 months / uses ointment to feet once a day. / ulcers are draining blood or no yellow or green draininage. Varicose veins Weakness arms and legs PAST SURGICAL HISTORY Procedure Laterality Date LIGATE FALLOPIAN TUBE Tubal ligation PAST SURGICAL HISTORY OF surgery to left foot x 5 PAST SURGICAL HISTORY OF right foot surgery x2 No current facility-administered medications for this visit. ALLERGIES Allergen Reactions Codeine GI Upset Demerol [Meperidine* Other: See Comments patient unsure Morphine Itching No family history on file. Social History Tobacco Use Smoking status: Former Packs/day: 1.50 Years: 10.00 Pack years: 15.00 Types: Cigarettes Quit date: 04/24/2009 Years since quittin.0 Substance Use Topics Alcohol use: Yes Comment: occasional Drug use: No Current Opioids Analgesic Opioid Hydrocodone Combinations Start End HYDROCODONE-ACETAMINOPHEN 7.5-300 mg tab 04/24/2014 Class: Historical Med Analgesic Opioid Hydrocodone and Non-Salicylate Combinations Start End HYDROCODONE-ACETAMINOPHEN 7.5-300 mg tab 04/24/2014 Class: Historical Med CHAYITO Modifiable Risk Factors (MoRF) Obesity Unknown Risk High: BMI > 40 Moderate: BMI 30-40 Normal: BMI < 30 Diabetes Moderate Risk High: A1C > 8 Moderate: A1C 7-8 Normal: A1C < 7 Smoking normal High: Current smoker Normal: Non smoker Anemia normal High: Hgb < 11.5 (women) N/A: Hgb >= 11.5 (women) Nutritional Status normal High: Alb<3.4, or prealb<15, or serum transferrin<200, or total lymphocyte count<1500 Normal: normal labs Narcotics Use High Risk High:NarxCare >=300 Moderate: 100-299 Normal: 0-99 Obesity: height and/or weight are out of date (There is no height and/or weight reading in the past 365 days, so the below BMI readings may be inaccurate) BMI Readings from Last 3 Encounters: 02/24/21 : 29.03 kg/m 06/27/14 : 28.50 kg/m 05/30/14 : 28.50 kg/m Diabetes: Well controlled - Marie has been diagnosed with Type 2 Diabetes. Her last Hemoglobin A1C was 5.7 (04/12/2014). NarxCare score NARX Narcotics: 391 (04/22/2023 1:46 PM) REVIEW OF SYSTEMS: CONSTITUTIONAL: No fevers, chills, nightsweats, unintended weight loss HEENT: Denies frequent or severe headaches, nasal congestion/sinus symptoms, problematic allergy problems. EYES: No diplopia or blurry vision. CARDIOVASCULAR: No chest pain, dyspnea, palpitations, orthopnea, PND. PULM: No dyspnea, unexplained cough. GI: No dysphagia/odynophagia, problematic reflux, constipation, diarrhea, changes in stool habits, hematochezia, melena. : No new urinary complaints, including dysuria, gross hematuria or pyuria. NEURO: No new balance problems, peripheral weakness/paresthesias or numbness of concern. MUSC-SKEL: No new joint pain, swelling, or erythema. PSY: No concerns regarding depression, anxiety or panic. INTEGUMENTARY: Skin changes as noted below. I have confirmed and edited as necessary, the PFSH and ROS obtained by others. OBJECTIVE: Patient is oriented to person, place, and time and is in no acute distress. Vascular Exam: Dorsalis Pedis pulses are palpable bilateral. Posterior Tibial pulses are palpable bilateral. Capillary refill time brisk. Skin temperature of the bilateral lower extremity is warm to cool, proximal to distal. Varicosities are NOT observed bilaterally. Edema NOT noted. No palpable lymph nodes noted. Dermatological: Skin appears well hydrated and is without notable erythema or ecchymosis. Webspaces are clean, dry, and intact bilateral. No open lesions Neurological: Light touch sensation intact bilaterally. Gross sensation intact bilaterally. Protective sensation ABSENT at 5/5 non-callused sites randomly selected and tested bilaterally using a 5.07 SWMF. Musculoskelatal: Muscle strength +5/5 for all pedal muscle groups bilaterally. Right ankle unstable and mobile medial ankle joint in the coronal plane. Medial collapse of the right foot noted IMAGING: Last XR Foot - Impression Only XR FOOT GENERAL 3V AP/LAT/OBL BILAT Exam End: 02/24/2021 3:05 PM (Final result) Impression: IMPRESSION: Pes planus with mild degenerative change midfoot bilaterally. Remote postsurgical changes bilateral feet. No acute osseous abnormality. Unremarkable exam bilateral ankles. ... Last XR Ankle - Impression Only XR ANKLE GENERAL 3V AP/LAT/OBL RIGHT Exam End: 04/22/2023 2:26 PM (Final result) Impression: IMPRESSION: 1. Extensive postoperative changes at the hindfoot and midfoot without complication identified. First Aid Nurse: SUBHASH Transcribe Date/Time: Apr 23 2023 4:47P... Last CT Foot - Impression Only No resulted procedures found. Last CT Ankle - Impression Only CT ANKLE WO IVCON RIGHT Exam End: 04/22/2023 3:55 PM (Final result) Impression: IMPRESSION: Intact postoperative changes of the right foot and ankle as described. First Aid Nurse: PSCB Transcribe Date/Time: Apr 22 2023 4:18P... Last MRI Ankle - Impression Only MRI ANKLE WO IVCON RT Exam End: 04/29/2021 11:40 AM (Final result) Impression: IMPRESSION: POSTERIOR TIBIALIS TENOSYNOVITIS. 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 ABNORMAL APPEARANCES OF THE SPRING LIGAMENT AND CALCANEOFIBULAR LIGAMENT. FINDINGS SUGGESTIVE OF MILD PLANTAR FASCIITIS. DIABETIC MUSCLE ATROPHY. First Aid Nurse: SUBHASH ... Last MRI Foot - Impression Only No resulted procedures found. ASSESSMENT & PLAN: Discussion with the patient today including questions and answers regarding the etiology and treatment options for the current problems. Right ankle Charcot with failed deltoid repair attempts - Had a long discussion with the patient today regarding the likelihood of an ankle fusion which she was told by her previous surgeon that this was a possibility. - The patient is not thrilled about the chances of having a fusion but understands that. - The patient will get her CT scan performed so we at her next visit we can have an informed discussion about what is most appropriate for her moving forward long-term. All questions answered to the patient's apparent satisfaction. No further questions at this time. Patient to be seen in clinic after her CT scan to discuss surgery, to return to clinic earlier if any problems arise. Dr. Macario Santos DPM I spent a total of 30 minutes on the date of the service which included preparing to see the patient, [id number] patient care, completing clinical documentation, obtaining and/or reviewing separately obtained history, performing a medically appropriate examination, counseling and educating the patient/family/caregiver, and ordering medications, tests, or procedures. documented in this encounter [facility] 03-22-2023 Note History & Physical R eviewed: I have reviewed the History and Physical dated: 17-Mar-2023 History and Physical reviewed and relevant findings noted. Patient examined to review pertinent physical findings.: No significant changes Home Medications Reviewed: no changes noted Allergies Reviewed: no changes noted ERAS (Enhanced Recovery After Surgery): ERAS Patient: no Consent: COVID-19 Consent: COVID-19 Risk ConsentSurgeon has reviewed fisher risks related to the risk of justa COVID-19 and if they contract COVID-19 what the risks are. Attestation: Note Completion: I am a: Resident/Fellow Attending AttestationI saw and evaluated the patient. I personally obtained the fisher and critical portions of the history and physical exam or was physically present for fisher and critical portions performed by the resident/fellow. I reviewed the resident/fellows documentation and discussed the patient with the resident/fellow. I agree with the resident/fellows medical decision making as documented in the note. I personally evaluated the patient [id number] Electronic Signatures: Sirena Oconnor (DPM (Resident)) (Signed 22-Mar-2023 12:37) Authored: History & Physical Reviewed, ERAS, Consent, Note Completion Fang Rodriguez (DPPawan) (Signed 22-Mar-2023 13:06) Authored: Note Completion Co-Signer: History & Physical Reviewed, ERAS, Consent, Note Completion Last Updated: 22-Mar-2023 13:06 by Fang Rodriguez (FLASH) [facility] 03-22-2023 History and physical note History & Physical Reviewed: I have reviewed the History and Physical dated: 17-Mar-2023 History and Physical reviewed and relevant findings noted. Patient examined to review pertinent physical findings.: No significant changes Home Medications Reviewed: no changes noted Allergies Reviewed: no changes noted ERAS (Enhanced Recovery After Surgery): ERAS Patient: no Consent: COVID-19 Consent: COVID-19 Risk Consent Surgeon has reviewed fisher risks related to the risk of justa COVID-19 and if they contract COVID-19 what the risks are. Attestation: Note Completion: I am a: Resident/Fellow Attending Attestation I saw and evaluated the patient. I personally obtained the fisher and critical portions of the history and physical exam or was physically present for fisher and critical portions performed by the resident/fellow. I reviewed the resident/fellow?s documentation and discussed the patient with the resident/fellow. I agree with the resident/fellow?s medical decision making as documented in the note. I personally evaluated the patient on 22-Mar-2023 Electronic Signatures: Sirena Oconnor (DPM (Resident)) (Signed 22-Mar-2023 12:37) Authored: History & Physical Reviewed, ERAS, Consent, Note Completion Fang Rodriguez) (Signed 22-Mar-2023 13:06) Authored: Note Completion Co-Signer: History & Physical Reviewed, ERAS, Consent, Note Completion Last Updated: 22-Mar-2023 13:06 by Fang Rodriguez) [facility] 03-22-2023 History and physical note History & Physical Reviewed: I have reviewed the History and Physical dated: 17-Mar-2023 History and Physical reviewed and relevant findings noted. Patient examined to review pertinent physical findings.: No significant changes Home Medications Reviewed: no changes noted Allergies Reviewed: no changes noted ERAS (Enhanced Recovery After Surgery): ERAS Patient: no Consent: COVID-19 Consent: COVID-19 Risk Consent Surgeon has reviewed fisher risks related to the risk of justa COVID-19 and if they contract COVID-19 what the risks are. Attestation: Note Completion: I am a: Resident/Fellow Attending Attestation I saw and evaluated the patient. I personally obtained the fisher and critical portions of the history and physical exam or was physically present for fisher and critical portions performed by the resident/fellow. I reviewed the resident/fellow?s documentation and discussed the patient with the resident/fellow. I agree with the resident/fellow?s medical decision making as documented in the note. I personally evaluated the patient on 22-Mar-2023 Electronic Signatures: Sirena Oconnor (DPM (Resident)) (Signed 22-Mar-2023 12:37) Authored: History & Physical Reviewed, ERAS, Consent, Note Completion Fang Rodriguez) (Signed 22-Mar-2023 13:06) Authored: Note Completion Co-Signer: History & Physical Reviewed, ERAS, Consent, Note Completion Last Updated: 22-Mar-2023 13:06 by Fang Rodriguez) documented in this encounter [facility] Work Phone: 08-21-2022 Note History & Physical R eviewed: I have reviewed the History and Physical dated: 10-Aug-2022 History and Physical reviewed and relevant findings noted. Patient examined to review pertinent physical findings.: No significant changes Home Medications Reviewed: no changes noted Allergies Reviewed: no changes noted ERAS (Enhanced Recovery After Surgery): ERAS Patient: no Consent: COVID-19 Consent: COVID-19 Risk ConsentSurgeon has reviewed fisher risks related to the risk of justa COVID-19 and if they contract COVID-19 what the risks are. Attestation: Note Completion: I am a: Resident/Fellow Attending AttestationI saw and evaluated the patient. I personally obtained the fisher and critical portions of the history and physical exam or was physically present for fisher and critical portions performed by the resident/fellow. I reviewed the resident/fellows documentation and discussed the patient with the resident/fellow. I agree with the resident/fellows medical decision making as documented in the note. I personally evaluated the patient [id number] Electronic Signatures: Darin Myers (FLASH (Resident)) (Signed 21-Aug-2022 11:22) Authored: History & Physical Reviewed, ERAS, Consent, Note Completion Fang Rodriguez) (Signed 21-Aug-2022 12:39) Authored: Note Completion Co-Signer: History & Physical Reviewed, ERAS, Consent, Note Completion Last Updated: 21-Aug-2022 12:39 by Fang Rodriguez) [facility] 08-13-2022 Note History & Physical R eviewed: I have reviewed the History and Physical dated: 10-Aug-2022 History and Physical reviewed and relevant findings noted. Patient examined to review pertinent physical findings.: No significant changes Home Medications Reviewed: no changes noted Allergies Reviewed: no changes noted ERAS (Enhanced Recovery After Surgery): ERAS Patient: no Consent: COVID-19 Consent: COVID-19 Risk ConsentSurgeon has reviewed fisher risks related to the risk of justa COVID-19 and if they contract COVID-19 what the risks are. Attestation: Note Completion: I am a: Resident/Fellow Attending AttestationI saw and evaluated the patient. I personally obtained the fisher and critical portions of the history and physical exam or was physically present for fisher and critical portions performed by the resident/fellow. I reviewed the resident/fellows documentation and discussed the patient with the resident/fellow. I agree with the resident/fellows medical decision making as documented in the note. I personally evaluated the patient [id number] Electronic Signatures: Sirena Oconnor (DPM (Resident)) (Signed 13-Aug-2022 06:59) Authored: History & Physical Reviewed, ERAS, Consent, Note Completion Fang Rodriguez (FLASH) (Signed 13-Aug-2022 07:41) Authored: Note Completion Co-Signer: History & Physical Reviewed, ERAS, Consent, Note Completion Last Updated: 13-Aug-2022 07:41 by Fang Rodriguez (ALYSA) [facility] 06-05-2022 Note History & Physical R eviewed: I have reviewed the History and Physical dated: 01-Jun-2022 History and Physical reviewed and relevant findings noted. Patient examined to review pertinent physical findings.: No significant changes Home Medications Reviewed: no changes noted Allergies Reviewed: no changes noted ERAS (Enhanced Recovery After Surgery): ERAS Patient: no Consent: COVID-19 Consent: COVID-19 Risk ConsentSurgeon has reviewed fisher risks related to the risk of justa COVID-19 and if they contract COVID-19 what the risks are. Attestation: Note Completion: I am a: Resident/Fellow Attending AttestationI saw and evaluated the patient. I personally obtained the fisher and critical portions of the history and physical exam or was physically present for fisher and critical portions performed by the resident/fellow. I reviewed the resident/fellows documentation and discussed the patient with the resident/fellow. I agree with the resident/fellows medical decision making as documented in the note. I personally evaluated the patient [id number] Electronic Signatures: Ly Sheikh (DPM (Resident)) (Signed 05-Jun-2022 06:50) Authored: History & Physical Reviewed, ERAS, Consent, Note Completion Fang Rodriguez (FLASH) (Signed 05-Jun-2022 09:32) Authored: Note Completion Co-Signer: History & Physical Reviewed, ERAS, Consent, Note Completion Last Updated: 05-Jun-2022 09:32 by Fang Rodriguez (FLASH) [facility] 05-06-2021 History of Past i llness Narrative Problem Noted Date Resolved Date Difficulty walking 05/06/2021 05/17/2023 diabetes 05/17/2023 Arthritis 05/17/2023 documented as of this encounter (statuses as of 05/20/2023) [facility]2021 History of Past illness Narrative* Problem Noted Date Diagnosed Date Resolved Date Difficulty walking 05/06/2021 3 diabetes 05/17/2023 Arthritis 05/17/2023 documented as of this encounter (statuses as of 05/23/2023) [facility] History of Past illness Narrative* Problem Noted Date Diagnosed Date Resolved Date Difficulty walking 05/06/2021 3 diabetes 05/17/2023 Arthritis 05/17/2023 documented as of this encounter (statuses as of 05/27/2023) [facility] History of Past illness Narrative* Problem Noted Date Diagnosed Date Resolved Date Difficulty walking 05/06/2021 3 diabetes 05/17/2023 Arthritis 05/17/2023 documented as of this encounter (statuses as of 05/28/2023) [facility] History of Past illness Narrative* Problem Noted Date Diagnosed Date Resolved Date Difficulty walking 05/06/2021 3 diabetes 05/17/2023 Arthritis 05/17/2023 documented as of this encounter (statuses as of 06/03/2023) [facility] History of Past illness Narrative* Problem Noted Date Diagnosed Date Resolved Date Difficulty walking 05/06/2021 3 diabetes 05/17/2023 Arthritis 05/17/2023 documented as of this encounter (statuses as of 06/04/2023) [facility] History of Past illness Narrative* Problem Noted Date Diagnosed Date Resolved Date Difficulty walking 05/06/2021 3 diabetes 05/17/2023 Arthritis 05/17/2023 documented as of this encounter (statuses as of 06/21/2023) [facility] History of Past illness Narrative* Problem Noted Date Diagnosed Date Resolved Date Difficulty walking 05/06/2021 3 diabetes 05/17/2023 Arthritis 05/17/2023 documented as of this encounter (statuses as of 07/03/2023) [facility] History of Past illness Narrative* Problem Noted Date Diagnosed Date Resolved Date Difficulty walking 05/06/2021 3 diabetes 05/17/2023 Arthritis 05/17/2023 documented as of this encounter (statuses as of 07/05/2023) [facility] History of Past illness Narrative* Problem Noted Date Diagnosed Date Resolved Date Difficulty walking 05/06/2021 3 diabetes 05/17/2023 Arthritis 05/17/2023 documented as of this encounter (statuses as of 07/08/2023) [facility] History of Past illness Narrative* Problem Noted Date Diagnosed Date Resolved Date Difficulty walking 05/06/2021 3 diabetes 05/17/2023 Arthritis 05/17/2023 documented as of this encounter (statuses as of 07/21/2023) [facility] History of Past illness Narrative* Problem Noted Date Diagnosed Date Resolved Date Difficulty walking 05/06/2021 3 diabetes 05/17/2023 Arthritis 05/17/2023 documented as of this encounter (statuses as of 07/28/2023) [facility] History of Past illness Narrative* Problem Noted Date Diagnosed Date Resolved Date Difficulty walking 05/06/2021 3 diabetes 05/17/2023 Arthritis 05/17/2023 documented as of this encounter (statuses as of 08/06/2023) [facility] History of Past illness Narrative* Problem Noted Date Diagnosed Date Resolved Date Difficulty walking 05/06/2021 3 diabetes 05/17/2023 Arthritis 05/17/2023 documented as of this encounter (statuses as of 09/06/2023) [facility] History of Past illness Narrative* Problem Noted Date Diagnosed Date Resolved Date Difficulty walking 05/06/2021 3 diabetes 05/17/2023 Arthritis 05/17/2023 documented as of this encounter (statuses as of 09/07/2023) [facility] History of Past illness Narrative* Problem Noted Date Diagnosed Date Resolved Date Difficulty walking 05/06/2021 3 diabetes 05/17/2023 Arthritis 05/17/2023 documented as of this encounter (statuses as of 09/28/2023) [facility] History of Past illness Narrative* Problem Noted Date Diagnosed Date Resolved Date Difficulty walking 05/06/2021 3 diabetes 05/17/2023 Arthritis 05/17/2023 documented as of this encounter (statuses as of 09/30/2023) [facility] History of Past illness Narrative* Problem Noted Date Diagnosed Date Resolved Date Difficulty walking 05/06/2021 3 diabetes 05/17/2023 Arthritis 05/17/2023 documented as of this encounter (statuses as of 10/11/2023) [facility] History of Past illness Narrative* Problem Noted Date Diagnosed Date Resolved Date Difficulty walking 05/06/2021 3 diabetes 05/17/2023 Arthritis 05/17/2023 documented as of this encounter (statuses as of 10/27/2023) [facility] History of Past illness Narrative* Problem Noted Date Diagnosed Date Resolved Date Difficulty walking 05/06/2021 3 diabetes 05/17/2023 Arthritis 05/17/2023 documented as of this encounter (statuses as of 10/27/2023) [facility] History of Past illness Narrative* Problem Noted Date Diagnosed Date Resolved Date Difficulty walking 05/06/2021 3 Diabetic foot ulcer 12/21/2013 11/03/20 23 diabetes 05/17/2023 Arthritis 05/17/2023 documented as of this encounter (statuses as of 12/17/2023) [facility] History of Past illness Narrative* Problem Noted Date Diagnosed Date Resolved Date Difficulty walking 05/06/2021 3 Diabetic foot ulcer 12/21/2013 11/03/20 23 diabetes 05/17/2023 Arthritis 05/17/2023 documented as of this encounter (statuses as of 12/29/2023) [facility] History of Past illness Narrative* Problem Noted Date Diagnosed Date Resolved Date Difficulty walking 05/06/2021 3 Diabetic foot ulcer 12/21/2013 11/03/20 23 diabetes 05/17/2023 Arthritis 05/17/2023 documented as of this encounter (statuses as of 01/11/2024) [facility] History of Past illness Narrative* Problem Noted Date Diagnosed Date Resolved Date Difficulty walking 05/06/2021 3 Diabetic foot ulcer 12/21/2013 11/03/20 23 diabetes 05/17/2023 Arthritis 05/17/2023 documented as of this encounter (statuses as of 01/27/2024) [facility] History of Past illness Narrative* Problem Noted Date Diagnosed Date Resolved Date Difficulty walking 05/06/2021 3 Diabetic foot ulcer 12/21/2013 11/03/20 23 diabetes 05/17/2023 Arthritis 05/17/2023 documented as of this encounter (statuses as of 03/01/2024) [facility] Charcot's joint of right ankle- Primary Leg abscess Cellulitis and abscess of leg, except foot [facility] Diagnosis Osteonecrosis (HCC)- Primary Aseptic necrosis of bone, site unspecified Charcot ankle, right [facility] Diagnosis Osteonecrosis (HCC)- Primary Aseptic necrosis of bone, site unspecified Charcot ankle, right Retained orthopedic hardware Other postprocedural status [facility]* Diagnosis Osteonecrosis (HCC)- Primary Aseptic necrosis of bone, site unspecified Charcot ankle, right Retained orthopedic hardware Other postprocedural status Deformity of ankle joint, right Osteonecrosis (HCC) Aseptic necrosis of bone, site unspecified Charcot ankle, right Retained orthopedic hardware Other postprocedural status Deformity of ankle joint, right [facility]* Diagnosis Charcot ankle, right- Primary Osteonecrosis (HCC) Aseptic necrosis of bone, site unspecified Charcot ankle, right Retained orthopedic hardware Other postprocedural status Deformity of ankle joint, right [facility]* Diagnosis PAD (peripheral artery disease) (HCC)- Primary Peripheral vascular disease, unspecified Preoperative cardiovascular examination Pre-operative cardiovascular examination Diabetes mellitus type 2 with neurological manifestations (HCC) Type II or unspecified type diabetes mellitus with neurological manifestations, not stated as uncontrolled Former smoker Personal history of tobacco use, presenting hazards to health Osteonecrosis (HCC) Aseptic necrosis of bone, site unspecified Charcot ankle, right Retained orthopedic hardware Other postprocedural status Deformity of ankle joint, right [facility]* Diagnosis Pre-op exam- Primary Preoperative examination, unspecified Diabetes mellitus type 2 with neurological manifestations (HCC) Type II or unspecified type diabetes mellitus with neurological manifestations, not stated as uncontrolled Former smoker Personal history of tobacco use, presenting hazards to health Intermittent asthma without complication, unspecified asthma severity Osteonecrosis (HCC) Aseptic necrosis of bone, site unspecified Charcot ankle, right Retained orthopedic hardware Other postprocedural status Deformity of ankle joint, right [facility]* Diagnosis Preoperative cardiovascular examination Pre-operative cardiovascular examination Osteonecrosis (HCC) Aseptic necrosis of bone, site unspecified Charcot ankle, right Retained orthopedic hardware Other postprocedural status Deformity of ankle joint, right [facility]* Diagnosis Charcot ankle, right- Primary [facility]* Diagnosis Charcot ankle, right- Primary Arthritis Arthropathy, unspecified, site unspecified [facility]* Diagnosis Charcot ankle, right- Primary [facility]* Diagnosis Charcot ankle, right [facility] Diagnosis Charcot ankle, right [facility]* Diagnosis Disorder of bone- Primary Disorder of bone and cartilage, unspecified Charcot ankle, right [facility] Diagnosis Charcot ankle, right documented in this encounter [facility] note* Diagnosis Disease of bone- Primary Disorder of bone and cartilage, unspecified documented in this encounter [facility] note* Diagnosis Diabetes mellitus due to underlying condition with diabetic autonomic neuropathy, with long-term current use of insulin ([facility])- Primary Post-op pain Other acute postoperative pain Charcot ankle, right Osteonecrosis ([facility]) Aseptic necrosis of bone, site unspecified documented in this encounter [facility] note* Diagnosis Post-op pain Other acute postoperative pain documented in this encounter [facility] note* Diagnosis Subluxation of right ankle joint, initial encounter Presence of other specified devices Valgus deformity, not elsewhere classified, right ankle Subluxation of right ankle joint, subsequent encounter Subluxation of left ankle joint, subsequent encounter Hyperlipidemia, unspecified Type 2 diabetes mellitus with diabetic peripheral angiopathy without gangrene ([facility]) Unspecified asthma, uncomplicated Type 2 diabetes mellitus with diabetic polyneuropathy ([facility]) Depression, unspecified Irritable bowel syndrome without diarrhea Hypothyroidism, unspecified Unspecified osteoarthritis, unspecified site Unspecified visual loss Unspecified hearing loss, unspecified ear Personal history of nicotine dependence senior living (current) use of 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 drugs documented in this encounter [facility] Work Phone: Evaluation note* Diagnosis Post-op pain Other acute postoperative pain documented in this encounter [facility] note* Diagnosis Charcot ankle, right documented in this encounter [facility] note* Diagnosis Charcot ankle, right documented in this encounter [facility] note* Diagnosis Charcot ankle, right documented in this encounter [facility] noteNo assessment information [facility] Work Phone: Reason for referral (narrative)* Diagnostic Procedure Only (Routine) - Authorized Specialty Diagnoses / Procedures Referred By Perla lyon Referred To Contact XR IMAGING Diagnoses Leg abscess Procedures XR TIBIA FIBULA 2V AP/LAT LEFT RADIOLOGIC EXAMINATION TIBIA & FIBULA 2 VIEWS Macario Santos DPM [address] [place] [address] Xr Imaging Referral ID Status Reason Start Date Expiration Date Visits Requested Visits Authorized [id number] Authorized Auto-Generat ed Referral 04/20/2023 05/19/2024 1 1 * Diagnostic Procedure Only (Routine) - Authorized Specialty Diagnoses / Procedures Referred By Contac t Referred To Contact XR IMAGING Diagnoses Charcot's joint of right ankle Procedures XR ANKLE GENERAL 3V AP/LAT/OBL RIGHT RADEX ANKLE COMPLETE MINIMUM 3 VIEWS Macario Santos DPM [address] [place] [address] Xr Imaging Referral ID Status Reason Start Date Expiration Date Visits Requested Visits Authorized [id number] Authorized Auto-Generat ed Referral 04/20/2023 05/19/2024 1 1 [facility] for referral (narrative)* Diagnostic Procedure Only (Routine) - Authorized Specialty Diagnoses / Procedures Referred By Contac t Referred To Contact MOLECULAR & FUNCTIONAL IMAGING Diagnoses Preoperative cardiovascular examination Procedures NM CARDIAC PERF STRESS/PHARM MYOCARDIAL SPECT MULTIPLE STUDIES Dana Goyal [place] [id number] [place] [address] [facility] [address] [place] [address] Referral ID Status Reason Start Date Expiration Date Visits Requested Visits Authorized [id number] Authorized Auto-Generat ed Referral 05/07/2023 06/05/2024 1 1 * Outpatient Procedure (Routine) - Authorized Specialty Diagnoses / Procedures Referred By Contac t Referred To Contact [facility] Diagnoses PAD (peripheral artery disease) (HCC) Procedures US LEG ARTERIAL PERIPH [facility] DUP-SCAN LXTR ART/ARTL [place] [address] [place] [address] [facility] [address] [place] [address] Referral ID Status Reason Start Date Expiration Date Visits Requested Visits Authorized [id number] Authorized Auto-Generat ed Referral 05/07/2023 05/06/2024 1 1 * Outpatient Procedure (Routine) - Authorized Specialty Diagnoses / Procedures Referred By Contac t Referred To Contact [facility] [place] Diagnoses PAD (peripheral artery disease) (HCC) Procedures PVR LEG [facility] NON-INVASIVE PHYSIOLOGIC STUDY EXTREMITY [address] [place] [id number] [place] [address] [facility] [place] [address] [place] [address] Referral ID Status Reason Start Date Expiration Date Visits Requested Visits Authorized [id number] Authorized Auto-Generat ed Referral 05/07/2023 05/06/2024 1 1 [facility] for referral (narrative)* Diagnostic Procedure Only (Routine) - Closed Specialty Diagnoses / Procedures Referred By Contac t Referred To Contact MOLECULAR & FUNCTIONAL IMAGING Diagnoses Preoperative cardiovascular examination Procedures NM CARDIAC PERF STRESS/PHARM MYOCARDIAL [place] [id number] [place] [address] Molecular [facility] [address] [place] [address] Referral ID Status Reason Start Date Expiration Date V isits Requested Visits Authorized [id number] Closed Auto-Generate d Referral 05/07/2023 06/05/2024 1 1 [facility] for referral (narrative)* Diagnostic Procedure Only (Routine) - Authorized Specialty Diagnoses / Procedures Referred By Contac t Referred To Contact XR IMAGING Diagnoses Charcot ankle, right Procedures XR ANKLE GENERAL 3V AP/LAT/OBL RIGHT RADEX ANKLE COMPLETE MINIMUM 3 VIEWS Macario Santos DPM [address] [place] [address] Xr Imaging Referral ID Status Reason Start Date Expiration Date Visits Requested Visits Authorized [id number] Authorized Auto-Generat ed Referral 06/04/2023 07/03/2024 1 1 [facility] for referral (narrative)* Diagnostic Procedure Only (Routine) - Authorized Specialty Diagnoses / Procedures Referred By Contac t Referred To Contact XR IMAGING Diagnoses Disease of bone Procedures XR ANKLE GENERAL 3V AP/LAT/OBL RIGHT RADEX ANKLE COMPLETE MINIMUM 3 VIEWS Macario Santos DPM [address] [place] [address] [place] [address] Referral ID Status Reason Start Date Expiration Date Visits Requested Visits Authorized [id number] Authorized Auto-Generat ed Referral 07/28/2023 08/26/2024 1 1 [facility] for referral (narrative)* Diagnostic Procedure Only (Routine) - Pending Review Specialty Diagnoses / Procedures Referred By Contac t Referred To Contact XR IMAGING Diagnoses Diabetes mellitus due to underlying condition with diabetic autonomic neuropathy, with long-term current use of insulin (HCC) Procedures XR FOOT GENERAL 3V AP/LAT/OBL BILATERAL RADEX FOOT COMPLETE MINIMUM 3 VIEWS Macario Santos DPM [address] [place] [address] [place] [address] Referral ID Status Reason Start Date Expiration Date Visits Requested Visits Authorized [id number] Pending Review Auto-Generat ed Referral 10/05/2024 1 1 * Diagnostic Procedure Only (Routine) - Closed Specialty Diagnoses / Procedures Referred By Contac t Referred To Contact XR IMAGING Diagnoses Diabetes mellitus due to underlying condition with diabetic autonomic neuropathy, with long-term current use of insulin (HCC) Procedures XR ANKLE GENERAL 3V AP/LAT/OBL RIGHT RADEX ANKLE COMPLETE MINIMUM 3 VIEWS Macario Santos DPM [address] [place] [address] [place] [address] Referral ID Status Reason Start Date Expiration Date V isits Requested Visits Authorized [id number] Closed Auto-Generate d Referral 08/30/2023 09/28/2024 1 1 [facility] for visit Narrative* Diagnostic Procedure Only (Routine) - Closed Specialty Diagnoses / Procedures Referred By Perla lyon Referred To Contact XR IMAGING Diagnoses Charcot ankle, right Procedures XR ANKLE GENERAL 3V AP/LAT/OBL RIGHT RADEX ANKLE COMPLETE MINIMUM 3 VIEWS Macario Santos DPM [address] [place] [id number] [facility] [place] [address] Referral ID Status Reason Start Date Expiration Date V isits Requested Visits Authorized [id number] Closed Auto-Generate d Referral 07/08/2023 07/06/2024 1 1 [facility] Summary Purpose Family History No Family History Records Found Mother Name Dates Details Family history of malignant neoplasm(V16.9, Z80.9) Status:Active Family history of hypertensi on(V17.49, Z82.49) Status:Active Family history of arthritis( V17.7, Z82.61) Status:Active Father Name Dates Details Family history of hypertensi on(V17.49, Z82.49) Status:Active Family history of diabetes m ellitus(V18.0, Z83.3) Status:Active Mother Name Dates Details Family history of malignant neoplasm(V16.9, Z80.9) Status:Active Family history of hypertensi on(V17.49, Z82.49) Status:Active Family history of arthritis( V17.7, Z82.61) Status:Active Father Name Dates Details Family history of hypertensi on(V17.49, Z82.49) Status:Active Family history of diabetes m ellitus(V18.0, Z83.3) Status:Active Mother Name Dates Details Family history of malignant neoplasm(V16.9, Z80.9) Status:Active Family history of hypertensi on(V17.49, Z82.49) Status:Active Family history of arthritis( V17.7, Z82.61) Status:Active Father Name Dates Details Family history of hypertensi on(V17.49, Z82.49) Status:Active Family history of diabetes m ellitus(V18.0, Z83.3) Status:Active Mother Name Dates Details Family history of malignant neoplasm(V16.9, Z80.9) Status:Active Family history of hypertensi on(V17.49, Z82.49) Status:Active Family history of arthritis( V17.7, Z82.61) Status:Active Father Name Dates Details Family history of hypertensi on(V17.49, Z82.49) Status:Active Family history of diabetes m ellitus(V18.0, Z83.3) Status:Active Mother Name Dates Details Family history of malignant neoplasm(V16.9, Z80.9) Status:Active Family history of hypertensi on(V17.49, Z82.49) Status:Active Family history of arthritis( V17.7, Z82.61) Status:Active Father Name Dates Details Family history of hypertensi on(V17.49, Z82.49) Status:Active Family history of diabetes m ellitus(V18.0, Z83.3) Status:Active Mother Name Dates Details Family history of malignant neoplasm(V16.9, Z80.9) Status:Active Family history of hypertensi on(V17.49, Z82.49) Status:Active Family history of arthritis( V17.7, Z82.61) Status:Active Father Name Dates Details Family history of hypertensi on(V17.49, Z82.49) Status:Active Family history of diabetes m ellitus(V18.0, Z83.3) Status:Active Mother Name Dates Details Family history of malignant neoplasm(V16.9, Z80.9) Status:Active Family history of hypertensi on(V17.49, Z82.49) Status:Active Family history of arthritis( V17.7, Z82.61) Status:Active Father Name Dates Details Family history of hypertensi on(V17.49, Z82.49) Status:Active Family history of diabetes m ellitus(V18.0, Z83.3) Status:Active Mother Name Dates Details Family history of malignant neoplasm(V16.9, Z80.9) Status:Active Family history of hypertensi on(V17.49, Z82.49) Status:Active Family history of arthritis( V17.7, Z82.61) Status:Active Father Name Dates Details Family history of hypertensi on(V17.49, Z82.49) Status:Active Family history of diabetes m amado(V18.0, Z83.3) Status:Active Mother Name Dates Details Family history of malignant neoplasm(V16.9, Z80.9) Status:Active Family history of hypertensi on(V17.49, Z82.49) Status:Active Family history of arthritis( V17.7, Z82.61) Status:Active Father Name Dates Details Family history of hypertensi on(V17.49, Z82.49) Status:Active Family history of diabetes pawan fischer(V18.0, Z83.3) Status:Active Advance Directives No Advanced Directives Records FoundNo Advanced Directives Records FoundNo Advanced Directives Records FoundNo Advanced Directives Records FoundNo Advanced Directives Records FoundNo Advanced Directives Records FoundNo Advanced Directives Records FoundNo Advanced Directives Records FoundNo Advanced Directives Records Found Assessments Diagnosis Pain- Primary Generalized pain Reason for Referral Specialty Diagnoses / Procedures Referred By Perla lyon Referred To Contact CT IMAGING Diagnoses Osteonecrosis (HCC) Procedures CT ANKLE WO IVCON RIGHT CT LOWER EXTREMITY W/O CONTRAST MATERIAL Macario Santos DPM [phone] Imaging Referral ID Status Reason Start Date Expiration Date V isits Requested Visits Authorized [id number] Closed Auto-Generate d Referral 04/22/2023 05/21/2024 1 1 Specialty Diagnoses / Procedures Referred By Perla lyon Referred To Contact Cardiology Diagnoses Charcot ankle, right Procedures CONSULT TO CARDIOLOGY Macario Santos DPM [address] [place] [address] [place] [address] [place] [address] Referral ID Status Reason Start Date Expiration Date Visits Requested Visits Authorized [id number] Ref Not Required PCP Requested Referral 05/05/2023 05/04/2024 1 1 Specialty Diagnoses / Procedures Referred By Contac t Referred To Contact MR IMAGING Diagnoses Disorder of bone Procedures MRI ANKLE WO IVCON LEFT MRI ANY JT LOWER EXTREM W/O CONTRAST MATRL Macario Santos DPM [phone] Mr Imaging [place] [address] Referral ID Status Reason Start Date Expiration Date Visits Requested Visits Authorized [id number] Authorized Auto-Generat ed Referral 07/02/2023 07/31/2024 1 1 Specialty Diagnoses / Procedures Referred By Contac t Referred To Contact XR IMAGING Diagnoses Disorder of bone Procedures XR ANKLE GENERAL 3V AP/LAT/OBL LEFT RADEX ANKLE COMPLETE MINIMUM 3 VIEWS Macario Santos DPM [address] [place] [address] Xr Imaging [place] [address] Referral ID Status Reason Start Date Expiration Date Visits Requested Visits Authorized [id number] Pending Review Auto-Generat ed Referral 07/02/2023 07/31/2024 1 1 Additional Source Comments INFORMATION SOURCE (unrecogn ized section and content) DATE CREATED AUTHOR 05/05/2018 [facility] DATE CREATED AUTHOR AUTHOR'S ORGANIZ ATION 02/23/2020 [employer] DATE CREATED AUTHOR AUTHOR'S ORGANIZ ATION 02/11/2021 [facility] DATE CREATED AUTHOR AUTHOR'S ORGANIZ ATION 03/29/2023 [facility] DATE CREATED AUTHOR AUTHOR'S ORGANIZ ATION 07/28/2023 [facility] DATE CREATED AUTHOR AUTHOR'S ORGANIZ ATION 12/07/2023 [facility] DATE CREATED AUTHOR AUTHOR'S ORGANIZ ATION 01/18/2024 [facility] DATE CREATED AUTHOR AUTHOR'S ORGANIZ ATION 03/18/2024 [facility] DATE CREATED AUTHOR AUTHOR'S ORGANIZ ATION 03/18/[address] [facility] Source Comments (unrecognize d section and content) In the event this informatio n is protected by the Federal Confidentiality of Alcohol and Drug Abuse Patient Records regulations: The Federal rules restrict any use of the information to criminally investigate or prosecute any alcohol or drug abuse patient.[facility] the event this information is protected by the Federal Confidentiality of Alcohol and Drug Abuse Patient Records regulations: The Federal rules restrict any use of the information to criminally investigate or prosecute any alcohol or drug abuse patient.[facility] DaytonIn the event this information is protected by the Federal Confidentiality of Alcohol and Drug Abuse Patient Records regulations: The Federal rules restrict any use of the information to criminally investigate or prosecute any alcohol or drug abuse patient.[facility] DaytonIn the event this information is protected by the Federal Confidentiality of Alcohol and Drug Abuse Patient Records regulations: The Federal rules restrict any use of the information to criminally investigate or prosecute any alcohol or drug abuse patient.[facility] DaytonIn the event this information is protected by the Federal Confidentiality of Alcohol and Drug Abuse Patient Records regulations: The Federal rules restrict any use of the information to criminally investigate or prosecute any alcohol or drug abuse patient.[facility] DaytonIn the event this information is protected by the Federal Confidentiality of Alcohol and Drug Abuse Patient Records regulations: The Federal rules restrict any use of the information to criminally investigate or prosecute any alcohol or drug abuse patient.[facility] DaytonIn the event this information is protected by the Federal Confidentiality of Alcohol and Drug Abuse Patient Records regulations: The Federal rules restrict any use of the information to criminally investigate or prosecute any alcohol or drug abuse patient.[facility] DaytonIn the event this information is protected by the Federal Confidentiality of Alcohol and Drug Abuse Patient Records regulations: The Federal rules restrict any use of the information to criminally investigate or prosecute any alcohol or drug abuse patient.[facility] DaytonIn the event this information is protected by the Federal Confidentiality of Alcohol and Drug Abuse Patient Records regulations: The Federal rules restrict any use of the information to criminally investigate or prosecute any alcohol or drug abuse patient.[facility] DaytonIn the event this information is protected by the Federal Confidentiality of Alcohol and Drug Abuse Patient Records regulations: The Federal rules restrict any use of the information to criminally investigate or prosecute any alcohol or drug abuse patient.[facility] DaytonIn the event this information is protected by the Federal Confidentiality of Alcohol and Drug Abuse Patient Records regulations: The Federal rules restrict any use of the information to criminally investigate or prosecute any alcohol or drug abuse patient.[facility] DaytonIn the event this information is protected by the Federal Confidentiality of Alcohol and Drug Abuse Patient Records regulations: The Federal rules restrict any use of the information to criminally investigate or prosecute any alcohol or drug abuse patient.[facility] DaytonIn the event this information is protected by the Federal Confidentiality of Alcohol and Drug Abuse Patient Records regulations: The Federal rules restrict any use of the information to criminally investigate or prosecute any alcohol or drug abuse patient.[facility] DaytonIn the event this information is protected by the Federal Confidentiality of Alcohol and Drug Abuse Patient Records regulations: The Federal rules restrict any use of the information to criminally investigate or prosecute any alcohol or drug abuse patient.[facility] DaytonIn the event this information is protected by the Federal Confidentiality of Alcohol and Drug Abuse Patient Records regulations: The Federal rules restrict any use of the information to criminally investigate or prosecute any alcohol or drug abuse patient.[facility] DaytonIn the event this information is protected by the Federal Confidentiality of Alcohol and Drug Abuse Patient Records regulations: The Federal rules restrict any use of the information to criminally investigate or prosecute any alcohol or drug abuse patient.[facility] DaytonIn the event this information is protected by the Federal Confidentiality of Alcohol and Drug Abuse Patient Records regulations: The Federal rules restrict any use of the information to criminally investigate or prosecute any alcohol or drug abuse patient.[facility] DaytonIn the event this information is protected by the Federal Confidentiality of Alcohol and Drug Abuse Patient Records regulations: The Federal rules restrict any use of the information to criminally investigate or prosecute any alcohol or drug abuse patient.[facility] DaytonIn the event this information is protected by the Federal Confidentiality of Alcohol and Drug Abuse Patient Records regulations: The Federal rules restrict any use of the information to criminally investigate or prosecute any alcohol or drug abuse patient.[facility] DaytonIn the event this information is protected by the Federal Confidentiality of Alcohol and Drug Abuse Patient Records regulations: The Federal rules restrict any use of the information to criminally investigate or prosecute any alcohol or drug abuse patient.[facility] DaytonIn the event this information is protected by the Federal Confidentiality of Alcohol and Drug Abuse Patient Records regulations: The Federal rules restrict any use of the information to criminally investigate or prosecute any alcohol or drug abuse patient.[facility] DaytonIn the event this information is protected by the Federal Confidentiality of Alcohol and Drug Abuse Patient Records regulations: The Federal rules restrict any use of the information to criminally investigate or prosecute any alcohol or drug abuse patient.[facility] DaytonIn the event this information is protected by the Federal Confidentiality of Alcohol and Drug Abuse Patient Records regulations: The Federal rules restrict any use of the information to criminally investigate or prosecute any alcohol or drug abuse patient.[facility] DaytonIn the event this information is protected by the Federal Confidentiality of Alcohol and Drug Abuse Patient Records regulations: The Federal rules restrict any use of the information to criminally investigate or prosecute any alcohol or drug abuse patient.[facility] DaytonIn the event this information is protected by the Federal Confidentiality of Alcohol and Drug Abuse Patient Records regulations: The Federal rules restrict any use of the information to criminally investigate or prosecute any alcohol or drug abuse patient.[facility] DaytonIn the event this information is protected by the Federal Confidentiality of Alcohol and Drug Abuse Patient Records regulations: The Federal rules restrict any use of the information to criminally investigate or prosecute any alcohol or drug abuse patient.[facility] DaytonIn the event this information is protected by the Federal Confidentiality of Alcohol and Drug Abuse Patient Records regulations: The Federal rules restrict any use of the information to criminally investigate or prosecute any alcohol or drug abuse patient.[facility] DaytonIn the event this information is protected by the Federal Confidentiality of Alcohol and Drug Abuse Patient Records regulations: The Federal rules restrict any use of the information to criminally investigate or prosecute any alcohol or drug abuse patient.[facility] DaytonIn the event this information is protected by the Federal Confidentiality of Alcohol and Drug Abuse Patient Records regulations: The Federal rules restrict any use of the information to criminally investigate or prosecute any alcohol or drug abuse patient.[facility] DaytonIn the event this information is protected by the Federal Confidentiality of Alcohol and Drug Abuse Patient Records regulations: The Federal rules restrict any use of the information to criminally investigate or prosecute any alcohol or drug abuse patient.[facility] DaytonIn the event this information is protected by the Federal Confidentiality of Alcohol and Drug Abuse Patient Records regulations: The Federal rules restrict any use of the information to criminally investigate or prosecute any alcohol or drug abuse patient.[facility] DaytonIn the event this information is protected by the Federal Confidentiality of Alcohol and Drug Abuse Patient Records regulations: The Federal rules restrict any use of the information to criminally investigate or prosecute any alcohol or drug abuse patient.[facility] DaytonIn the event this information is protected by the Federal Confidentiality of Alcohol and Drug Abuse Patient Records regulations: The Federal rules restrict any use of the information to criminally investigate or prosecute any alcohol or drug abuse patient.[facility] DaytonIn the event this information is protected by the Federal Confidentiality of Alcohol and Drug Abuse Patient Records regulations: The Federal rules restrict any use of the information to criminally investigate or prosecute any alcohol or drug abuse patient.[facility] DaytonIn the event this information is protected by the Federal Confidentiality of Alcohol and Drug Abuse Patient Records regulations: The Federal rules restrict any use of the information to criminally investigate or prosecute any alcohol or drug abuse patient.[facility] Care Teams (unrecognized sec tion and content) Product Manager Medical Device Relationship Specialty Start Date End Date Collins Savage Jr., DO PCP - General Family Medicine 12/21/13 Product Manager Medical Device Relationship Specialty Start Date End Date Collins Savage Jr., DO PCP - General Family Medicine 12/21/13 Product Manager Medical Device Relationship Specialty Start Date End Date Collins Savage Jr., DO PCP - General Family Medicine 12/21/13 Product Manager Medical Device Relationship Specialty Start Date End Date Collins Savage Jr., DO PCP - General Family Medicine 12/21/13 Product Manager Medical Device Relationship Specialty Start Date End Date Collins Savage Jr., DO PCP - General Family Medicine 12/21/13 Product Manager Medical Device Relationship Specialty Start Date End Date Collins Savage Jr., DO PCP - General Family Medicine 12/21/13 Product Manager Medical Device Relationship Specialty Start Date End Date Collins Andrews MD [address] [place] [phone] PCP - General Internal Medicine 05/06/23 Product Manager Medical Device Relationship Specialty Start Date End Date Collins Andrews MD [address] [place] [id number] PCP - General Internal Medicine 05/06/23 Product Manager Medical Device Relationship Specialty Start Date End Date Collins Andrews MD [address] [place] [phone] PCP - General Internal Medicine 05/06/23 Product Manager Medical Device Relationship Specialty Start Date End Date Collins Andrews MD [address] [place] [address] PCP - General Internal Medicine 05/06/23 Product Manager Medical Device Relationship Specialty Start Date End Date Collins Andrews MD [address] [place] [id number] PCP - General Internal Medicine 05/06/23 Product Manager Medical Device Relationship Specialty Start Date End Date Collins Andrews MD [address] [place] [address] PCP - General Internal Medicine 05/06/23 Product Manager Medical Device Relationship Specialty Start Date End Date Collins Andrews MD [address] [place] [phone] PCP - General Internal Medicine 05/06/23 Product Manager Medical Device Relationship Specialty Start Date End Date Collins Andrews MD [address] [place] [phone] PCP - General Internal Medicine 05/06/23 Product Manager Medical Device Relationship Specialty Start Date End Date Collins Andrews MD [address] [place] [address] [phone] PCP - General Internal Medicine 05/06/23 Product Manager Medical Device Relationship Specialty Start Date End Date Collins Andrews MD [address] [place] [address] [phone] PCP - General Internal Medicine 05/06/23 Product Manager Medical Device Relationship Specialty Start Date End Date Collins Andrews MD [address] [place] [address] [phone] PCP - General Internal Medicine 05/06/23 Product Manager Medical Device Relationship Specialty Start Date End Date Collins Andrews MD [address] [place] [address] [phone] PCP - General Internal Medicine 05/06/23 Product Manager Medical Device Relationship Specialty Start Date End Date Collins Andrews MD [id number] [place] [id number] PCP - General Internal Medicine 05/06/23 Product Manager Medical Device Relationship Specialty Start Date End Date Collins Andrews MD [id number] [place] [id number] PCP - General Internal Medicine 05/06/23 Product Manager Medical Device Relationship Specialty Start Date End Date Collins Andrews MD [address] [place] [address] PCP - General 02/13/21 Product Manager Medical Device Relationship Specialty Start Date End Date Collins Andrews MD PCP - General Internal Medicine 05/06/23 Product Manager Medical Device Relationship Specialty Start Date End Date Collins Andrews MD PCP - General Internal Medicine 05/06/23 Product Manager Medical Device Relationship Specialty Start Date End Date Collins Andrews MD PCP - General Internal Medicine 05/06/23 Team Status: Inactive Member Role Status Dates Zuhair Grubbs DPM [place] Attending Provider Active Start: March 09, 2024 End: March 09, 2024 Reason for Visit (unrecogniz ed section and content) Reason Comments Pain New Reason Comments Established Patient Follow Up Reason Comments Surgical Follow Up Reason Onset Date Comments Refill Request 05/05/2023 Reason Comments New Patient Reason Comments Anesthesia Consult Reason Comments Radiology NM Specialty Diagnoses / Procedures Referred By Contnaheed t Referred To Contact MOLECULAR & FUNCTIONAL IMAGING Diagnoses Preoperative cardiovascular examination Procedures NM CARDIAC PERF STRESS/PHARM MYOCARDIAL [place] [address] [facility] [address] Molecular & Functional Imaging [address] [phone] Referral ID Status Reason Start Date Expiration Date V isits Requested Visits Authorized [id number] Closed Auto-Generate d Referral 05/07/2023 06/05/2024 1 1 Reason Comments Follow Up Reason Onset Date Comments Follow Up 05/23/2023 Reason Comments Post Op Sx: 05/17/2023 Reason Onset Date Comments Refill Request 06/02/2023 Reason Onset Date Comments Refill Request 06/17/2023 Reason Comments Established Patient Follow Up Reason Onset Date Comments Refill Request 07/21/2023 Reason Comments Radiology XR Reason Comments Follow Up Pain Reason Onset Date Comments Refill Request 09/29/2023 Reason Comments Other S93.01, Z97.8, M21.0 71 Reason Comments Refill Request Reason Onset Date Comments Refill Request 10/25/2023 Reason Onset Date Comments Refill Request 12/08/2023 Reason Onset Date Comments Refill Request 12/29/2023 Reason Onset Date Comments Refill Request 01/10/2024 Reason Onset Date Comments Refill Request 01/25/2024 Reason Onset Date Comments Refill Request 02/28/2024 Goals (unrecognized section and content) Goals may be documented in a n alternate section FOR RECORDS PERTAINING TO PATIENTS WHO ARE OR HAVE BEEN ENROLLED IN A CHEMICAL DEPENDENCY/SUBSTANCEABUSE PROGRAM, SOME INFORMATION MAY BE OMITTED. This clinical summary was aggregated from multiple sources. Caution should be exercised in using it in the provision of clinical care. This summary normalizes information from multiple sources, and as a consequence, information in this document may materially change the coding, format and clinical context of patient data. In addition, data may be omitted in some cases. CLINICAL DECISIONS SHOULD BE BASED ON THE PRIMARY CLINICAL RECORDS. [facility]. provides no warranty or guarantee of the accuracy or completeness of information in this document.
== END 2024-03-29 07:22 | disposition home or self-care (01) ==
LOC: PST 07:21
PROVIDERS: Visit Provider Podiatrist Foot & Ankle Surgery
DX: Z01.818 Encounter for other preprocedural examination (principal); M96.0 Pseudarthrosis after fusion or arthrodesis; E11.610 Type 2 diabetes mellitus with diabetic neuropathic arthropathy

== ENCOUNTER 2024-04-03 13:22 | Observation (INO) | payer MEDICARE, MEDICAID, SELFPAY ==
[2024-04-03] VITALS (19 sets, daily range): BP systolic 99–153; BP diastolic 46–76; PULSE 65–93; TEMP 36.3–37.1; O2SAT 91–98; BMI 27.3; BMI 28.4
--- NOTE | 2024-04-03 | FL_ITS ---
[address] [address] Patient Name: BILLY SEXTON MRN: [id number] date: 1960 Sex: F Assigned Patient Location: [facility] Current Patient Location: [place] Accession/Order Number: [id number] Exam Date: 04/03/2024 07:40 Report Date: 04/04/2024 11:37 At the request of: BROOKS GONZALES Procedure: FL fluoroscopy <1hr NON-READ EXAM: FL fluoroscopy <1hr NON-READ HISTORY: TECHNIQUE: FINDINGS: Please see Operative Report. Electronically authenticated by: RADIOLOGIST NO Date: 04/04/2024 11:37
--- OUTSIDE RECORDS SUMMARY | 2024-04-03 06:27 | XMS_ITS | CCD ---
Author Organization [facility] Care Team Providers Care Facilities Engineer Name Role Phone Janette Collins Unavailable Unavailable Saridakis, Collins Unavailable Unavailable Kira Bennett Unavailable Unavailable Saridakis, Collins E Unavailable Unavailable Saridakis, Collins E Unavailable Unavailable Saridakis, Collins Unavailable Unavailable Dustin, [place] Unavailable Unavailable Saridakis, Collins Anoop Unavailable Unava ilable Saridaalbers, Collins E Primary Care Provider Jennifer, Dr. Fang Santos Attending U navailable Razzante, Dr. Fang Santos Referring U navailable Debs, Dr. Collins Orellana Primary Care Unavaila ble Razzantsahara, Dr. Fang Santos Admitting U navailable Razzante, Dr. Fang Santos Attending U navailable Richardzantsahara, Dr. Fang Santos Referring U navailable Debs, [...] CLOCARLY, MACARIO VENCESR Referring Unava ilable DEBS, COLLISN E Primary Care Unavailable MACARIO SANTOSR Referring [...] Unavailable Lauries Collins CRUMP Primary Care Provider MACARIO SANTOS Attending Unava ilable CLOUGHERTY, WATSON ODELL Admitting Unava ilable COLLINS SAVAGE JR Primary Care Unavaila ble MANAS RINCON Consulting Unavailable DEBS, COLLINS E Primary Care Unavailable CLOUGHERTY, WATSON ODELL Referring Unava ilable CLOUGHERTY, WATSON ODELL Attending Unava ilable ELXY, COLLINS E Primary Care Unavailable DEBS, COLLINS [...] ODELL Attending Unava ilFLASH Walters Attending Provider COLLINS ANDREWS Primary Care Unavailable LEXY, COLLINS E Primary Care Unavailable Zuhair Grubbs Admitting Unavailable Zuhair Grubbs Attending Unavailable Allergies Allergy Classification Reported Allergen(s) Allergy Type Date of Onset Reaction(s) Facility (20 sources) Codeine Drug Allergy 8 GI Upset [facility] 1057 Work Phone: (9 sources) Meperidine Drug Allergy [facility] 1057 Work Phone: (20 sources) Meperidine; Translations: [MEPERIDINE (PF)] Drug Allergy 8 Other: See Comments [facility] (20 sources) Morphine; Translations: [MORPHINE] Drug Allergy 1 Itching [facility] (13 sources) Amoxicillin / Clavulanate; Translations: [AMOXICILLIN-PO T CLAVULANATE] Drug Allergy 3 GI Upset [facility] (13 sources) Doxycycline; Translations: [DOXYCYCLINE] Drug Allergy 3 GI [facility] (2 sources) Codeine; Translations: [CODEINE] Drug Allergy 8 [facility] (1 source) ALLERGIES NOT ON FILE; Translations: [ALLERGIES NOT ON FILE] Propensity to adverse reactions (disorder) [facility] Medications Current Medications Medication Drug Class(es) [...] Start: 04-24-2014 HYDROCODONE-ACETA MINOPHEN 7.5-300 mg tab [id number] 200 actuat albuterol 0.09 mg/actuat metered dose inhaler (20 sources) beta2-Adrenergic Agonist Start: 09-13-2023 take 1-2 puff(s) by mouth every four hours as needed albuterol HFA (PROVENTIL HFA, VENTOLIN HFA) 90 mcg/actuation inhaler inhale 1 to 2 puffs by mouth every 4 hours as needed 0 09/13/2023 Active Start: 02-22-2015 take 2 puff(s) by mo [facility] four times daily as needed Ventolin HFA [...] on above: Take 1 capsule by mo [facility] three times daily. cholecalciferol 0.025 mg oral [...] Comment on above: Take 2,000 mg by [facility] twice daily. cyclobenzaprine hydrochloride 10 mg [...] daily. 0 07/05/2017 Active Start: 07-05-2017 FLUoxetine (ME OZAC) 40 mg capsule Take by mouth. [...] daily with meals. omega-3 acid ethyl esters ([facility]) 1000 mg oral capsule (20 sources) omega-3 [...] by mouth. 0 Active turmeric ([place] [facility] Comment on above: Take 500 mg by [...] lower leg] Episodic Other aftercare (1 source) skilled nursing (current) use of 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 drugs; Translations: [skilled nursing (current) use of 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 drugs] Onset: 03-22-2023 Episodic Other aftercare (2 sources) skilled nursing (current) use of insulin; Translations: [long term care social worker (current) use of insulin] Onset: 03-17-2023 Episodic Other aftercare (1 source) Other fci (current) drug therapy; Translations: [Other fci (current) drug therapy] Onset: 03-17-2023 Episodic Other aftercare (1 source) Long-term current use of 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 medication; Translations: [long term care social worker (current) use of 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 drugs] 03-29-2023 [...] BCP dye [Mass/Vol] 4.7 g/dL Normal 3.4-5.0 [facility] Comment on above: Performed By: #### 2 4323-8 #### ADAM CALDERON ([id number]) [facility] ([facility]) [place] [address] ALP [Catalytic activity/Vol] 59 U/L Normal 33-136 [facility] Comment on above: Performed By: #### 2 4323-8 #### ADAM CALDERON ([id number]) [facility] ([facility]) [place] [address] ALT With P-5'-P [Catalytic activity/Vol] 23 U/L Normal 7-45 [facility] Comment on above: Result Comment: Shaista ents treated with Sulfasalazine may generate falsely decreased results for ALT. Performed By: #### 2 4323-8 #### ADAM CALDERON ([id number]) [facility] ([facility]) [address] [place] [address] Anion gap [Moles/Vol] 17 mmol/L Normal 10-20 [facility] Comment on above: Performed By: #### 2 4323-8 #### ADAM CALDERON ([id number]) [facility] ([facility]) [address] [place] [address] AST With P-5'-P [Catalytic activity/Vol] 16 U/L Normal 9-39 [facility] Comment on above: Performed By: #### 2 4323-8 #### ADAM CALDERON ([id number]) [facility] ([facility]) [address] [place] [address] Bilirubin [Mass/Vol] 0.3 mg/dL Normal 0.0-1.2 [facility] Comment on above: Performed By: #### 2 4323-8 #### ADAM CALDERON ([id number]) [facility] ([facility]) [address] [place] [address] Calcium [Mass/Vol] 10.8 mg/dL High 8.6-10.3 [facility] Comment on above: Performed By: #### 2 4323-8 #### ADAM CALDERON ([id number]) [facility] ([facility]) [address] [place] [address] Chloride [Moles/Vol] 101 mmol/L Normal 98-107 [facility] Comment on above: Performed By: #### 2 4323-8 #### ADAM CALDERON ([id number]) [facility] ([facility]) [address] [place] [address] CO2 [Moles/Vol] 25 mmol/L Normal 21-32 [facility] Comment on above: Performed By: #### 2 4323-8 #### ADAM CALDERON ([id number]) [facility] ([facility]) [address] [place] [address] Creatinine [Mass/Vol] 1.09 mg/dL High 0.50-1.05 [facility] Comment on above: Performed By: #### 2 4323-8 #### ADAM CALDERON ([id number]) [facility] ([facility]) [address] [place] [address] Glomerular filtration rate/1.73 sq M.predicted 57 mL/min/1.73m*2 Low >60 [facility] Comment on above: Result Comment: Calc ulations of estimated GFR are performed using the 2020 CKD-EPI Study Refit equation without the race variable for the IDMS-Traceable creatinine methods. https://jasn.asnjournals.org/content/early//ASN.8093943 988 Performed By: #### 2 4323-8 #### ADAM CALDERON ([id number]) [facility] ([facility]) [address] [place] [address] Glucose [Mass/Vol] 178 mg/dL High 74-99 [facility] Comment on above: Performed By: #### 2 4323-8 #### ADAM CALDERON ([id number]) [facility] ([facility]) [address] [place] [address] Potassium [Moles/Vol] 4.7 mmol/L Normal 3.5-5.3 [facility] Comment on above: Performed By: #### 2 4323-8 #### ADAM CALDERON ([id number]) [facility] ([facility]) [address] [place] [address] Protein [Mass/Vol] 7.4 g/dL Normal 6.4-8.2 [facility] Comment on above: Performed By: #### 2 4323-8 #### ADAM CALDERON ([id number]) [facility] ([facility]) [address] [place] [address] Sodium [Moles/Vol] 138 mmol/L Normal 136-145 [facility] Comment on above: Performed By: #### 2 4323-8 #### ADAM CALDERON ([id number]) [facility] ([facility]) [address] [place] [address] Urea nitrogen [Mass/Vol] 21 mg/dL Normal 6-23 [facility] Comment on above: Performed By: #### 2 4323-8 #### ADAM CALDERON ([id number]) [facility] ([facility]) [address] [place] [address] HbA1c (Bld) [Mass fraction]o n 03-13-2024 Average glucose Estimated from glycated hemoglobin (Bld) [Mass/Vol] 148 mg/dL Normal Not Established [facility] Comment on above: Order Comment: Diagn osis of Diabetes-Adults Non-Diabetic: < or = 5.6% Increased risk for developing diabetes: 5.7-6.4% Diagnostic of diabetes: > or = 6.5% Monitoring of Diabetes Age (y)....................... Therapeutic Goal (%) Adults: >18.........................<7.0 Pediatrics: 13-18...................<7.5 Pediatrics: 7-12....................<8.0 Pediatrics: 0-6..................... 7.5-8.5 [employer]. Diabetes Care 33(S1), Nov 2009 Performed By: #### 4 548-4 #### ADAM CALDERON ([id number]) [facility] ([facility]) [address] [place] [address] Hemoglobin A1c/Hemoglobin.to milan 03-13-2024 HbA1c (Bld) [Mass fraction] 6.8 % High see below [facility] Comment on above: Order Comment: Diagn osis of Diabetes-Adults Non-Diabetic: < or = 5.6% Increased risk for developing diabetes: 5.7-6.4% Diagnostic of diabetes: > or = 6.5% Monitoring of Diabetes Age (y)....................... Therapeutic Goal (%) Adults: >18.........................<7.0 Pediatrics: 13-18...................<7.5 Pediatrics: 7-12....................<8.0 Pediatrics: 0-6..................... 7.5-8.5 [employer]. Diabetes Care 33(S1), Nov 2009 Performed By: #### 4 548-4 #### ADAM CALDERON ([id number]) [facility] ([facility]) [address] [place] [address] Thyrotropinon 03-13-2024 TSH Qn 0.79 m[IU]/L Normal 0.44-3.98 [facility] Comment on above: Order Comment: TSH t esting is performed using different testing methodology at [facility] than at other [facility]. Direct result comparisons should only be made within the same method. Performed By: #### 3 016-3 #### ADAM CALDERON ([id number]) [facility] ([facility]) [address] [place] [address] Edwin 03-09-2024 L Specimen: [id number] Received: 03/09/24 Status: [facility] Num: [id number] Spec Type: Surgical Subm Dr: Zuhair Grubbs DPM, MS Tissues: A Bone Biopsy/Currettings (BX RT TIBIA BONE) B Bone Biopsy/Currettings (RT TALUS BONE BX) C Bone Biopsy/Currettings (BX RT CALCANEOUS BONE) Procedures: HE/6, Gross/Micro L5/3, Decalcification/3 Age/ Patient Sex Location Account Attending Physician Darshan,April LABELL [id number] Zuhair Grubbs DPM, MS SPEC NUM: [id number] RECD: 03/09/24 STATUS: KADIE LEESaulo NUM: [id number] TATIANNA: 03/09/24 [facility] DR: Zuhair Grubbs DPM, MS ENTERED: 03/09/[address] [facility] [address]: Orestes,Lab SPEC TYPE: Surgical DEPT: ATA [...] cm, entirely submitted in A1 following Specimen: [id number] Received: 03/09/24 Status: KADIE Kiley Num: [id number] Spec Type: Surgical Subm Dr: Zuhair Grubbs DPM, MS Tissues: A Bone Biopsy/Currettings (BX RT TIBIA BONE) B Bone Biopsy/Currettings (RT TALUS BONE BX) C Bone Biopsy/Currettings (BX RT CALCANEOUS BONE) Procedures: HE/6, Gross/Micro L5/3, Decalcification/3 Patient: DarshanMarie [id number] (Continued) Specimen: [id number] Received: 03/09/24 (Continued) Gross Description (Continued) Signed (signature on file) Darci Castro MD 03/13/24 1653 Specimen: [id number] Received: 03/09/24 Status: KADIE Cao Num: [id number] Spec Type: Surgical Subm Dr: Zuhair Grubbs,DPM, MS Tissues: A Bone Biopsy/Currettings (BX RT TIBIA BONE) B Bone Biopsy/Currettings (RT TALUS BONE BX) C Bone Biopsy/Currettings (BX RT CALCANEOUS BONE) Procedures: HE/6, Gross/Micro L5/3, Decalcification/3 Patient: DarshanApril [id number] (Continued) Specimen: [id number] Received: 03/09/24 (Continued) Gross Description (Continued) decalcification. [...] joint right ankle and foot CPT Codes 86879p4, 79039r3 Specimen: [id number] Received: 03/09/24 Status: KADIE Cao Num: [id number] Spec Type: Surgical Subm Dr: Zuhair Grubbs,DPM, MS Tissues: A Bone Biopsy/Currettings (BX RT TIBIA BONE) B Bone Biopsy/Currettings (RT TALUS BONE BX) C Bone Biopsy/Currettings (BX RT CALCANEOUS BONE) Procedures: HE/6, Gross/Micro L5/3, Decalcification/3 Patient: DarshanMarie [id number] (Continued) Signed (signature on file) Darci Castro MD 03/13/24 1653 Normal [facility] Comprehensive metabolic 2000 panelon 11-26-2023 Albumin BCP dye [Mass/Vol] 4.6 g/dL Normal 3.4-5.0 [facility] Comment on above: Performed By: #### 2 4323-8 #### ADAM CALDERON ([id number]) [facility] ([facility]) [address] [place] [address] ALP [Catalytic activity/Vol] 52 U/L Normal 33-136 [facility] Comment on above: Performed By: #### 2 4323-8 #### ADAM CALDERON ([id number]) [facility] ([facility]) [address] [place] [address] ALT With P-5'-P [Catalytic activity/Vol] 17 U/L Normal 7-45 [facility] Comment on above: Result Comment: Shaista ents treated with Sulfasalazine may generate falsely decreased results for ALT. Performed By: #### 2 4323-8 #### ADAM CALDERON ([id number]) [facility] ([facility]) [address] [place] [address] Anion gap [Moles/Vol] 14 mmol/L Normal 10-20 [facility] Comment on above: Performed By: #### 2 4323-8 #### ADAM CALDERON ([id number]) [facility] ([facility]) [address] [place] [address] AST With P-5'-P [Catalytic activity/Vol] 16 U/L Normal 9-39 [facility] Comment on above: Performed By: #### 2 432-8 #### ADAM CALDERON ([id number]) [facility] ([facility]) [address] [place] [address] Bilirubin [Mass/Vol] 0.6 mg/dL Normal 0.0-1.2 [facility] Comment on above: Performed By: #### 2 4323-8 #### ADAM CALDERON ([id number]) [facility] ([facility]) [address] [place] [address] Calcium [Mass/Vol] 10.0 mg/dL Normal 8.6-10.3 [facility] Comment on above: Performed By: #### 2 4323-8 #### ADAM CALDERON ([id number]) [facility] ([facility]) [address] [place] [address] Chloride [Moles/Vol] 99 mmol/L Normal 98-107 [facility] Comment on above: Performed By: #### 2 4323-8 #### ADAM CALDERON ([id number]) [facility] ([facility]) [address] [place] [address] CO2 [Moles/Vol] 28 mmol/L Normal 21-32 [facility] Comment on above: Performed By: #### 2 4323-8 #### ADAM CALDERON ([id number]) [facility] ([facility]) [address] [place] [address] Creatinine [Mass/Vol] 1.07 mg/dL High 0.50-1.05 [facility] Comment on above: Performed By: #### 2 4323-8 #### ADAM CALDERON ([id number]) [facility] ([facility]) [address] [place] [address] Glomerular filtration rate/1.73 sq M.predicted 59 mL/min/1.73m*2 Low >60 [facility] Comment on above: Result Comment: Calc ulations of estimated GFR are performed using the 2020 CKD-EPI Study Refit equation without the race variable for the IDMS-Traceable creatinine methods. https://jasn.asnjournals.org/content/early//ASN.6963874 988 Performed By: #### 2 4323-8 #### ADAM CALDERON ([id number]) [facility] ([facility]) [address] [place] [address] Glucose [Mass/Vol] 92 mg/dL Normal 74-99 [facility] Comment on above: Performed By: #### 2 4323-8 #### ADAM CALDERON ([id number]) [facility] ([facility]) [address] [place] [address] Potassium [Moles/Vol] 4.2 mmol/L Normal 3.5-5.3 [facility] Comment on above: Performed By: #### 2 4323-8 #### ADAM CALDERON ([id number]) [facility] ([facility]) [address] [place] [address] Protein [Mass/Vol] 7.1 g/dL Normal 6.4-8.2 [facility] Comment on above: Performed By: #### 2 4323-8 #### ADAM CALDERON ([id number]) [facility] ([facility]) [address] [place] [address] Sodium [Moles/Vol] 137 mmol/L Normal 136-145 [facility] Comment on above: Performed By: #### 2 4323-8 #### ADAM CALDERON ([id number]) [facility] ([facility]) [address] [place] [address] Urea nitrogen [Mass/Vol] 20 mg/dL Normal 6-23 [facility] Comment on above: Performed By: #### 2 4323-8 #### ADAM CALDERON ([id number]) [facility] ([facility]) [address] [place] [address] HbA1c (Bld) [Mass fraction]o n 11-26-2023 Average glucose Estimated from glycated hemoglobin (Bld) [Mass/Vol] 163 mg/dL Normal Not Established [facility] Comment on above: Order Comment: Diagn osis of Diabetes-Adults Non-Diabetic: < or = 5.6% Increased risk for developing diabetes: 5.7-6.4% Diagnostic of diabetes: > or = 6.5% Monitoring of Diabetes Age (y)....................... Therapeutic Goal (%) Adults: >18.........................<7.0 Pediatrics: 13-18...................<7.5 Pediatrics: 7-12....................<8.0 Pediatrics: 0-6..................... 7.5-8.5 [employer]. Diabetes Care 33(S1), Nov 2009 Performed By: #### 4 548-4 #### ADAM CALDERON ([id number]) [facility] ([facility]) [address] [place] [address] Hemoglobin A1c/Hemoglobin.to milan 11-26-2023 HbA1c (Bld) [Mass fraction] 7.3 % High see below [facility] Comment on above: Order Comment: Diagn osis of Diabetes-Adults Non-Diabetic: < or = 5.6% Increased risk for developing diabetes: 5.7-6.4% Diagnostic of diabetes: > or = 6.5% Monitoring of Diabetes Age (y)....................... Therapeutic Goal (%) Adults: >18.........................<7.0 Pediatrics: 13-18...................<7.5 Pediatrics: 7-12....................<8.0 Pediatrics: 0-6..................... 7.5-8.5 [employer]. Diabetes Care 33(S1)Nov 2009 Performed By: #### 4 548-4 #### ADAM CALDERON ([id number]) [facility] ([facility]) [place] [address] Lipid 1996 panelon 4 Cholesterol [Mass/Vol] 185 mg/dL Normal 0-199 [facility] Comment on above: Result Comment: Age [...] By: #### 2 4331-1 #### ADAM CALDERON ([id number]) [facility] ([facility]) [address] [place] [address] Cholesterol in HDL [Mass/Vol] 34.5 mg/dL Normal [facility] Comment on above: Result Comment: Age Very Low Low Normal High 0-19 Y < 35 < 40 40-45 ---- 20-24 Y ---- < 40 >45 ---- >24 Y ---- < 40 40-60 >60 Performed By: #### 2 4331-1 #### ADAM CALDERON ([id number]) [facility] ([facility]) [address] [place] [address] Cholesterol in LDL [Mass/Vol] 95 mg/dL Normal <=99 [facility] Comment on above: Result Comment: Near Borderline AGE Desirable Optimal High High Very High 0-19 Y 0 - 109 --- 110-129 >/= 130 ---- 20-24 Y 0 - 119 --- 120-159 >/= 160 ---- >24 Y 0 - 99 100-129 130-159 160-189 >/=190 Performed By: #### 2 4331-1 #### ADAM CALDERON ([id number]) [facility] ([facility]) [address] [place] [address] Cholesterol in VLDL [Mass/Vol] 55 mg/dL High 0-40 [facility] Comment on above: Performed By: #### 2 4331-1 #### ADAM CALDERON ([id number]) [facility] ([facility]) [address] [place] [address] CHOLESTEROL/HDL RATIO 5.4 Normal [facility] Comment on above: Result Comment: Ref Values Desirable < 3.4 High Risk > 5.0 Performed By: #### 2 4331-1 #### ADAM CALDERON ([id number]) [facility] ([facility]) [address] [place] [address] NON HDL CHOLESTEROL 151 mg/dL High 0-149 [facility] Comment on above: Result Comment: Age Desirable Borderline High High Very High 0-19 Y 0 - 119 120 - 144 >/= 145 >/= 160 20-24 Y 0 - 149 150 - 189 >/= 190 ---- >24 Y 30 mg/dL above LDL Cholesterol goal Performed By: #### 2 4331-1 #### ADAM CALDERON ([id number]) [facility] ([facility]) [address] [place] [address] Triglyceride [Mass/Vol] 277 mg/dL High 0-149 [facility] Comment on above: Result Comment: Age [...] By: #### 2 4331-1 #### ADAM CALDERON ([id number]) [facility] ([facility]) [address] [place] [address] Thyrotropinon 11-26-2023 TSH Qn 0.72 m[IU]/L Normal 0.44-3.98 [facility] Comment on above: Order Comment: TSH t esting is performed using different testing methodology at [facility] than at [facility]. Direct result comparisons should only be made within the same method. Performed By: #### 3 016-3 #### ADAM CALDERON ([id number]) [facility] ([facility]) [address] [place], [place] [address] Thyroxine.freeon 11-26-2023 Free T4 [Mass/Vol] 1.24 ng/dL High 0.61-1.12 [facility] Comment on above: Order Comment: Thyro xine Free testing is performed using different testing methodology at [facility] than at [facility]. Direct result comparisons should only [...] By: #### 3 024-7 #### ADAM CALDERON ([id number]) [facility] ([facility]) [address] [place] [address] CNOVon 11-25-2023 CNOV Office Visit (ORTHLD ) DARSHANMARIE TRINIDAD ([id number]) 1960 F Date Time Provider Department 11/25/23 [...] No di (more content not included)... 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]) Surgeons: Macario Santos DPM Responsible Provider: Luc [...] November 10, 2023 TIME: 2:34 PM CSN: [id number] [facility] ANES PRE-OPon 11-10-2023 ANES PRE-OP HNO ID: [id number] Author: Serafin Partida MD Service: Anesthesiology Author Type: Anesthesiologist Type: Anesthesia Preprocedure Evaluation Filed: 11/10/2023 12:54 PM Note Text: ANESTHESIOLOGY DAY OF SURGERY NOTE : 1960 Procedure Information Date/Time: 11/10/23 1325 Procedures: REMOVAL HARDWARE FOOT (Right: Foot) - POPLITEAL BLOCK Adrian serrano aware of case - kf have available [employer] Math extraction set 1 and 2 ARTHRODESIS MIDTARSAL [...] and consent discussed: yes. Patient / Responsible Republican agrees to proceed: yes Patient / Surrogate [...] puffs by (more content not included)... Normal [facility] BRIEF OP NOTon 11-10-2023 BRIEF OP NOT HNO ID: [id number] Author: Macario Santos DPM Service: Podiatry Author Type: Physician Type: Brief Op Note Filed: 11/10/2023 2:08 PM Note Text: PODIATRIC SURGERY BRIEF OPERATIVE NOTE LOG ID: [id number] Surgery/Procedure Date: 11/10/2023 Incision/Procedure Start Time: 1:25 PM Incision Close/Procedure End Time: Surgeon(s)/Proceduralis t(s) and Fish Protector(s): Surgeon(s) and Role: * Macario Santos DPM - Primary * Alek Mclaughlin DPM - Resident - Assisting Physician Fish Protector: Rhoda Weston PA-C Procedure(s): Right removal of [...] 10, 2023 TIME: 2:06 PM PAGER/CONTACT #: [phone] (Pager/Cell) Normal [facility] Bacteria Spec Anaerobe Culto n 11-10-2023 Bacteria identified Anaer cx Nom (Unsp spec) Negative Normal [facility] Comment on above: Performed By: #### 6 35-3, 75145-1, 47209-3 ####[facility] LABCLIA [id number] [place] [address] [place] Bacteria Tiss Culton 023 Bacteria identified Cx Nom (Tiss) CULTURE, TISSUE: No growth GRAM STAIN: No organisms seen No Polymorphonuclear Leukocytes Normal [facility] Comment on above: Performed By: #### 6 35-3, 77795-2, 02149-2 ####[facility] LABCLIA [id number] [place] [address] [place] Microorganism Spec Culton Microorganism identified Cx Nom (Unsp spec) CULTURE, FUNGAL: No Fungus isolated after 28 days FUNGAL SMEAR: No fungus seen [facility] Comment on above: Performed By: #### 6 35-3, 50864-0, 47606-6 ####[facility] LABCLIA [id number] [address] [place] Microorganism identified Cx Nom (Unsp spec) CULTURE, AFB: No Acid Fast Bacilli isolated after 42 days AFB STAIN: No acid fast bacilli seen by flurochrome stain [facility] Comment on above: Performed By: #### 6 35-3, 94778-4, 05888-6 ####[facility] LABCLIA [id number] [place] [address] [place] NURSING PROGon 11-10-2023 NURSING PROG HNO ID: [id number] Author: Blanca Tomas RN Service: ? Author [...] (RECOMMENDATION): None Electronically Signed By: Blanca Tomas [facility] NURSING PROG HNO ID: [id number] Author: Brigette Stallworth RN Service: Pain Management Author Type: Registered Nurse Type: Nursing Progress Note Filed: 11/10/2023 12:39 PM Note Text: RIGHT popliteal single shot nerve block and RIGHT adductor canal single shot nerve block Dr. Stanley and Dr. Rodrigues Patient verbalized understanding of nerve block procedure. Patient tolerated procedure very well; report given to primary nurse. [facility] NURSING PROG HNO ID: [id number] Author: Jenni Zarco RN Service: ? Author [...] (RECOMMENDATION): None Electronically Signed By: Jenni Zarco [facility] OPERATIVE NOon 11-10-2023 OPERATIVE NO HNO ID: [id number] Author: Macario Santos DPM Service: Podiatry Author Type: Physician Type: Operative Report Filed: 11/12/2023 8:42 AM Note Text: SURGERY OPERATIVE NOTE LOG ID: [id number] Surgery/Procedure Date: 11/10/2023 Incision/Procedure Start Time: 1:25 PM Incision Close/Procedure End Time: 2:17 PM Surgeon(s)/Proceduralis t(s) and Fish Protector(s): Surgeon(s) and Role: * Macario Santos DPM - Primary * Alek Mclaughlin DPM - Resident - Assisting Physician Fish Protector: Rhoda Weston PA-C PRE-OP/PRE-PROCEDURE DIAGNOSIS: Right foot [...] impregnated cement was then prepared per the life scientist's recommended technique and then placed into the [...] 12, 2023 TIME: 8:37 AM PAGER/CONTACT #: [phone] (Pager/Cell) Normal [facility] SURGICAL PATHOLOGYon 023 CASE REPORT [facility] Comment on above: Order Comment: Speci men Type: SPECIMEN FROM BONEOrdering Facility: [facility] Address: [address] [place] [address] Result Comment: Surg ical Pathology Report Case: [id number] Authorizing Provider: Macario Santos Collected: 11/10/2023 01:43 PM FLASH Zuniga Ordering Location: [facility] Received: 11/10/2023 02:35 PM Operating Room Pathologist: Laina Álvarez MD Specimen: BONE RESECTION, right non union talus Performed By: #### S ####[facility] LABCLIA [id number] [place] [address] [place] [facility] LABORATORYCLIA [id number] [place] [address] [place] CLINICAL HISTORY POPLITEAL BLOCK Normal [facility] Comment on above: Order Comment: Speci men Type: SPECIMEN FROM BONEOrdering Facility: 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 Address: [address] [place] [address] Result Comment: A. B one and soft tissue, right, nonunion talus bone, resection: - Soft tissue with reactive changes, chronic inflammation and foreign body-type giant cell reaction. - Fragments of necrotic bone. Performed By: #### S ####[facility] LABCLIA [id number] [address] LABORATORYCLIA [id number] [address] FINAL PERFORMING LAB Normal [facility] Comment on above: Order Comment: Speci men Type: SPECIMEN FROM BONEOrdering Facility: [facility] Address: [address] [place] [address] Result Comment: Diag nostic interpretation performed at [facility], [address] [address] CLIA# [id number] Freezer Assistant: Sarwat Enamorado M.D. Performed By: #### S ####[facility] LABCLIA [id number] [address] LABORATORYCLIA [id number] [address] GROSS DESCRIPTION Normal [facility] Comment on above: Order Comment: Speci men Type: SPECIMEN FROM BONEOrdering Facility: [facility] Address: [address] [place] [address] Result Comment: A. 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 Totally submitted in 1 cassette following decalcification. MLG November 11, 2023 9:03 AM Gross examination performed at [facility], [address] [place] [address] Performed By: #### S ####[facility] LABCLIA [id number] [address] LABORATORYCLIA [id number] [address] XR FOOT 2V AP/LAT RTon 11-10 [...] IMPRESSION: Please see operative note for details Supervisor Chassis Assembly: PSCB Transcribe Date/Time: Nov 10 2023 3:22P Dictated by : ARLIN CRUZ MD This examination was interpreted and the report reviewed and electronically signed by: ARLIN CRUZ MD on Nov 10 2023 3:24PM EST [id number] Normal [facility] CBC W Auto Differential pane l (Bld)on 11-03-2023 Basophils (Bld) [#/Vol] 0.05 10*3/uL Normal <0.11 [facility] Comment on above: Order Comment: Speci men Type: BLOOD SPECIMENOrdering Facility: [facility] Address: [address] [place] [address] Performed By: #### 5 7021-8 ####[facility] LABCLIA [id number] [place] [address] [place] Basophils/100 WBC (Bld) 0.6 % Normal [facility] Comment on above: Order Comment: Speci men Type: BLOOD SPECIMENOrdering Facility: [facility] Address: [address] [place] [address] Performed By: #### 5 7021-8 ####[facility] LABCLIA [id number] [place] [address] [place] Differential cell count method Nom (Bld) Auto Normal [facility] Comment on above: Order Comment: Speci men Type: BLOOD SPECIMENOrdering Facility: [facility] Address: [address] [place] [address] Performed By: #### 5 7021-8 ####[facility] LABCLIA [id number] [place] [address] [place] Eosinophils (Bld) [#/Vol] 0.41 10*3/uL Normal <0.46 [facility] Comment on above: Order Comment: Speci men Type: BLOOD SPECIMENOrdering Facility: [facility] Address: [address] [place] [address] Performed By: #### 5 7021-8 ####[facility] LABCLIA [id number] [place] [address] [place] Eosinophils/100 WBC (Bld) 4.9 % Normal [facility] Comment on above: Order Comment: Speci men Type: BLOOD SPECIMENOrdering Facility: [facility] Address: [address] [place] [address] Performed By: #### 5 7021-8 ####[facility] LABCLIA [id number] [place] [address] [place] Erythrocyte distribution width (RBC) [Ratio] 12.8 % Normal 11.5-15.0 [facility] Comment on above: Order Comment: Speci men Type: BLOOD SPECIMENOrdering Facility: [facility] Address: [address] [place] [address] Performed By: #### 5 7021-8 ####[facility] LABCLIA [id number] [place] [address] [place] Hematocrit (Bld) [Volume fraction] 40.9 % Normal 36.0-46.0 [facility] Comment on above: Order Comment: Speci men Type: BLOOD SPECIMENOrdering Facility: [facility] Address: [address] [place] [address] Performed By: #### 5 7021-8 ####[facility] LABCLIA [id number] [place] [address] [place] Hemoglobin (Bld) [Mass/Vol] 12.9 g/dL Normal 11.5-15.5 [facility] Comment on above: Order Comment: Speci men Type: BLOOD SPECIMENOrdering Facility: [facility] Address: [address] [place] [address] Performed By: #### 5 7021-8 ####[facility] LABCLIA [id number] [place] [address] [place] Immature granulocytes (Bld) [#/Vol] 0.05 10*3/uL Normal <0.10 [facility] Comment on above: Order Comment: Speci men Type: BLOOD SPECIMENOrdering Facility: [facility] Address: [address] [place] [address] Performed By: #### 5 7021-8 ####[facility] LABCLIA [id number] [place] [address] [place] Immature granulocytes/100 WBC (Bld) 0.6 % Normal [facility] Comment on above: Order Comment: Speci men Type: BLOOD SPECIMENOrdering Facility: [facility] Address: [address] [place] [address] Performed By: #### 5 7021-8 ####[facility] LABCLIA [id number] [place] [address] [place] Lymphocytes (Bld) [#/Vol] 2.95 10*3/uL Normal 1.00-4.00 [facility] Comment on above: Order Comment: Speci men Type: BLOOD SPECIMENOrdering Facility: [facility] Address: [address] [place] [address] Performed By: #### 5 7021-8 ####[facility] LABCLIA [id number] [place] [address] [place] Lymphocytes/100 WBC (Bld) 35.2 % Normal [facility] Comment on above: Order Comment: Speci men Type: BLOOD SPECIMENOrdering Facility: [facility] Address: [address] [place] [address] Performed By: #### 5 7021-8 ####[facility] LABCLIA [id number] [place] [address] [place] MCH (RBC) [Entitic mass] 28.6 pg Normal 26.0-34.0 [facility] Comment on above: Order Comment: Speci men Type: BLOOD SPECIMENOrdering Facility: [facility] Address: [address] [place] [address] Performed By: #### 5 7021-8 ####[facility] LABCLIA [id number] [place] [address] [place] MCHC (RBC) [Mass/Vol] 31.5 g/dL Normal 30.5-36.0 [facility] Comment on above: Order Comment: Speci men Type: BLOOD SPECIMENOrdering Facility: [facility] Address: [address] [place] [address] Performed By: #### 5 7021-8 ####[facility] LABCLIA [id number] [place] [address] [place] MCV (RBC) [Entitic vol] 90.7 fL Normal 80.0-100.0 [facility] Comment on above: Order Comment: Speci men Type: BLOOD SPECIMENOrdering Facility: [facility] Address: [address] [place] [address] Performed By: #### 5 7021-8 ####[facility] LABCLIA [id number] [place] [address] [place] Monocytes (Bld) [#/Vol] 0.63 10*3/uL Normal <0.87 [facility] Comment on above: Order Comment: Speci men Type: BLOOD SPECIMENOrdering Facility: [facility] Address: [address] [place] [address] Performed By: #### 5 7021-8 ####[facility] LABCLIA [id number] [place] [address] [place] Monocytes/100 WBC (Bld) 7.5 % Normal [facility] Comment on above: Order Comment: Speci men Type: BLOOD SPECIMENOrdering Facility: [facility] Address: [address] [place] [address] Performed By: #### 5 7021-8 ####[facility] LABCLIA [id number] [place] [address] [place] Neutrophils (Bld) [#/Vol] 4.30 10*3/uL Normal 1.45-7.50 [facility] Comment on above: Order Comment: Speci men Type: BLOOD SPECIMENOrdering Facility: [facility] Address: [address] [place] [address] Performed By: #### 5 7021-8 ####[facility] LABCLIA [id number] [place] [address] [place] Neutrophils/100 WBC (Bld) 51.2 % Normal [facility] Comment on above: Order Comment: Speci men Type: BLOOD SPECIMENOrdering Facility: [facility] Address: [address] [place] [address] Performed By: #### 5 7021-8 ####[facility] LABCLIA [id number] [place] [address] [place] Nucleated RBC (Bld) [#/Vol] 10*3/uL Normal <0.01 [facility] Comment on above: Order Comment: Speci men Type: BLOOD SPECIMENOrdering Facility: [facility] Address: [address] [place] [address] Performed By: #### 5 7021-8 ####[facility] LABCLIA [id number] [place] [address] [place] Nucleated RBC/100 WBC (Bld) [Ratio] 0.0 /100 WBC Normal [facility] Comment on above: Order Comment: Speci men Type: BLOOD SPECIMENOrdering Facility: [facility] Address: [address] [place] [address] Performed By: #### 5 7021-8 ####[facility] LABCLIA [id number] [place] [address] [place] Platelet mean volume (Bld) [Entitic vol] 10.2 fL Normal 9.0-12.7 [facility] Comment on above: Order Comment: Speci men Type: BLOOD SPECIMENOrdering Facility: [facility] Address: [address] [place] [address] Performed By: #### 5 7021-8 ####[facility] LABCLIA [id number] [place] [address] [place] Platelets (Bld) [#/Vol] 315 10*3/uL Normal 150-400 [facility] Comment on above: Order Comment: Speci men Type: BLOOD SPECIMENOrdering Facility: [facility] Address: [address] [place] [address] Performed By: #### 5 7021-8 ####[facility] LABCLIA [id number] [place] [address] [place] RBC (Bld) [#/Vol] 4.51 10*6/uL Normal 3.90-5.20 [facility] Comment on above: Order Comment: Speci men Type: BLOOD SPECIMENOrdering Facility: [facility] Address: [address] [place] [address] Performed By: #### 5 7021-8 ####[facility] LABCLIA [id number] [address] [address] [place] WBC (Bld) [#/Vol] 8.39 10*3/uL Normal 3.70-11.00 [facility] Comment on above: Order Comment: Speci men Type: BLOOD SPECIMENOrdering Facility: [facility] Address: [address] [place] [address] Performed By: #### 5 7021-8 ####[facility] LABCLIA [id number] [place] [address] [place] Comprehensive metabolic 2000 panelon 11-03-2023 Albumin [Mass/Vol] 4.8 g/dL Normal 3.9-4.9 [facility] Comment on above: Order Comment: Speci men Type: BLOOD SPECIMENOrdering Facility: [facility] Address: [address] [place] [address] Performed By: #### 2 4323-8 ####[facility] LABIA [id number] [place] [address] [place] ALP [Catalytic activity/Vol] 73 U/L Normal 34-123 [facility] Comment on above: Order Comment: Speci men Type: BLOOD SPECIMENOrdering Facility: [facility] Address: [address] [place] [address] Performed By: #### 2 4323-8 ####[facility] LABCLIA [id number] [place] [address] [place] ALT [Catalytic activity/Vol] 14 U/L Normal 7-38 [facility] Comment on above: Order Comment: Speci men Type: BLOOD SPECIMENOrdering Facility: [facility] Address: [address] [place] [address] Performed By: #### 2 4323-8 ####[facility] LABCLIA [id number] [place] [address] [place] Anion gap [Moles/Vol] 13 mmol/L Normal 9-18 [facility] Comment on above: Order Comment: Speci men Type: BLOOD SPECIMENOrdering Facility: [facility] Address: [address] [place] [address] Performed By: #### 2 4323-8 ####[facility] LABCLIA [id number] [place] [address] [place] AST [Catalytic activity/Vol] 17 U/L Normal 13-35 [facility] Comment on above: Order Comment: Speci men Type: BLOOD SPECIMENOrdering Facility: [facility] Address: [address] [place] [address] Performed By: #### 2 4323-8 ####[facility] LABCLIA [id number] [place] [address] [place] Bilirubin [Mass/Vol] 0.2 mg/dL Normal 0.2-1.3 [facility] Comment on above: Order Comment: Speci men Type: BLOOD SPECIMENOrdering Facility: [facility] Address: [address] [place] [address] Performed By: #### 2 4323-8 ####[facility] LABCLIA [id number] [place] [address] [place] Calcium [Mass/Vol] 10.7 mg/dL High 8.5-10.2 [facility] Comment on above: Order Comment: Speci men Type: BLOOD SPECIMENOrdering Facility: [facility] Address: [address] [place] [address] Performed By: #### 2 4323-8 ####[facility] LABCLIA [id number] [place] [address] [place] Chloride [Moles/Vol] 101 mmol/L Normal 97-105 [facility] Comment on above: Order Comment: Speci men Type: BLOOD SPECIMENOrdering Facility: [facility] Address: [address] [place] [address] Performed By: #### 2 4323-8 ####[facility] LABCLIA [id number] [address] [place] CO2 [Moles/Vol] 28 mmol/L Normal 22-30 [facility] Comment on above: Order Comment: Speci men Type: BLOOD SPECIMENOrdering Facility: [facility] Address: [address] [place] [address] Performed By: #### 2 4323-8 ####[facility] LABCLIA [id number] [address] Creatinine [Mass/Vol] 0.92 mg/dL Normal 0.58-0.96 [facility] Comment on above: Order Comment: Speci men Type: BLOOD SPECIMENOrdering Facility: [facility] Address: [address] [place] [address] Performed By: #### 2 4323-8 ####[facility] LABCLIA [id number] [address] Creatinine and Glomerular filtration rate.predicted panel (S/P/Bld) 71 mL/min/1.73m??? Normal >=60 [facility] Comment on above: Order Comment: Speci men Type: BLOOD SPECIMENOrdering Facility: [facility] Address: [address] [place] [address] Result Comment: Luis mated Glomerular Filtration Rate [...] actual GFR. Performed By: #### 2 4323-8 ####[facility] LABCLIA [id number] [id number] [address] [place] Glucose [Mass/Vol] 125 mg/dL High 74-99 [facility] Comment on above: Order Comment: Speci men Type: BLOOD SPECIMENOrdering Facility: [facility] Address: [address] [place] [address] Result Comment: The [place] [employer] (ADA) provides guidance for cutoff [...] Standards of Medical Care in Diabetes 2016, [place] [employer]. Diabetes Care. 2016.39(Suppl 1). Performed By: #### 2 4323-8 ####[facility] LABCLIA [id number] [place] [address] [place] Potassium [Moles/Vol] 4.9 mmol/L Normal 3.7-5.1 [facility] Comment on above: Order Comment: Shlomo ghosh Type: BLOOD SPECIMENOrdering Facility: [facility] Address: [address] [place] [address] Performed By: #### 2 4323-8 ####[facility] LABIA [id number] [place] [address] [place] Protein [Mass/Vol] 7.8 g/dL Normal 6.3-8.0 [facility] Comment on above: Order Comment: Samiri men Type: BLOOD SPECIMENOrdering Facility: [facility] Address: [address] [place] [address] Performed By: #### 2 4323-8 ####[facility] LABCLIA [id number] [place] [address] [place] Sodium [Moles/Vol] 142 mmol/L Normal 136-144 [facility] Comment on above: Order Comment: Speci men Type: BLOOD SPECIMENOrdering Facility: [facility] Address: [address] [facility] [address] Performed By: #### 2 4323-8 ####[facility] LABCLIA [id number] [address] [place] Urea nitrogen [Mass/Vol] 25 mg/dL High 7-21 [facility] Comment on above: Order Comment: Speci men Type: BLOOD SPECIMENOrdering Facility: [facility] Address: [place] [address] Performed By: #### 2 4323-8 ####[facility] LABCLIA [id number] [address] [place] HISTORY PHYSICALon HISTORY PHYSICAL HNO ID: [id number] Author: Wiliam Daniels APRN.TOUR DIRECTOR Service: ? Author Type: Nurse Practitioner Type: [...] large neck Non-male patient STOP-Bang Score: 2 [id number] Score: Age: <65 Sex: Female CHF history: No Hypertension history: Yes Stroke/TIA/thromboembol ism history: No Diabetes history: Yes [id number] Score: 3 ANESTHESIA FINDINGS: Intubation History: No [...] dyspnea, pratik (more content not included)... Normal [facility] HbA1c (Bld)on 11-03-2023 Average glucose Estimated from glycated hemoglobin (Bld) [Mass/Vol] 126 mg/dL Normal [facility] Comment on above: Order Comment: Shlomo ghosh Type: BLOOD SPECIMENOrdering Facility: [facility] Address: [address] [place] [address] Result Comment: eAG: (Estimated average glucose) is a calculated value from HgbA1c and is account executive sales representative of the average blood glucose level in the last 2-3 month period. Performed By: #### 5 5454-3 ####[facility] LABCLIA [id number] [facility] [id number] [place] [address] [place] HbA1c (Bld) [Mass fraction] 6.0 % High 4.3-5.6 [facility] Comment on above: Order Comment: Shlomo ghosh Type: BLOOD SPECIMENOrdering Facility: [facility] Address: [address] [place] [address] Result Comment: Amer [place] Diabetes Association guidelines indicate that patients with HgbA1c in the range 5.7-6.4% are at increased risk for development of diabetes, and intervention by lifestyle modification may be beneficial. HgbA1c greater or equal to 6.5% is considered diagnostic of diabetes. Performed By: #### 5 5454-3 ####[facility] LABCLIA [id number] [address] [facility] CT ANKLE WO IVCON RTon 10-14 CT ANKLE WO IVCON RT * * *Final Report* * * DATE OF EXAM: Oct 14 2023 12:19PM [facility] [place] [address] [place] ANKLE WO IVCON RT [...] OF MULTIPLE SCREWS IN THE MIDFOOT DESCRIBED. Supervisor Chassis Assembly: SUBHASH Transcribe Date/Time: Oct 14 2023 12:22P Dictated by : LATRICIA LIN MD This examination was interpreted and the report reviewed and electronically signed by: LATRICIA LIN MD on Oct 14 2023 1:12PM EST [id number] Normal [facility] CNOVon 10-11-2023 CNOV Office Visit (ORTHLD ) MARIE SEXTON ([id number]) 1960 F Date Time Provider Department 10/11/23 [...] OBJECTIVE: Patient (more content not included)... Normal [facility] XR FOOT 3V AP/LAT/OBL BILon 10-11-2023 XR [...] left foot, possibly due to Charcot arthropathy Supervisor Chassis Assembly: PSCB Transcribe Date/Time: Oct 14 2023 9:07A Dictated by : REGI WOODS MD This examination was interpreted and the report reviewed and electronically signed by: REGI WOODS MD on Oct 14 2023 9:15AM EST [id number] Normal [facility] CNOVon 09-06-2023 CNOV Office Visit (ORTHKRISTEN ) MARIE SEXTON ([id number]) 1960 F Date Time Provider Department 09/06/23 [...] peripheral weakness/ (more content not included)... Normal [facility] XR ANKLE 3V AP/LAT/OBL LTon 09-06-2023 XR [...] concern for Charcot foot. Please clinically correlate. Supervisor Chassis Assembly: SUBHASH Transcribe Date/Time: Sep 09 2023 8:54A Dictated by : AGAPITO PINZON MD This examination was interpreted and the report reviewed and electronically signed by: AGAPITO PINZON MD on Sep 09 2023 9:15AM EST [id number] Normal [facility] XR ANKLE 3V AP/LAT/OBL RTon 09-06-2023 XR [...] concern for Charcot foot. Please clinically correlate. Supervisor Chassis Assembly: SUBHASH Transcribe Date/Time: Sep 09 2023 8:54A Dictated by : AGAPITO PINZON MD This examination was interpreted and the report reviewed and electronically signed by: AGAPITO PINZON MD on Sep 09 2023 9:15AM EST [id number] Normal [facility] CNOVon 08-05-2023 CNOV Office Visit (ORTHLD ) MARIE SEXTON ([id number]) 1960 F Date Time Provider Department 08/05/23 [...] ROS obtain (more content not included)... Normal [facility] XR ANKLE 3V AP/LAT/OBL RTon 08-05-2023 XR [...] joints visible in the lateral projection only. Supervisor Chassis Assembly: PSCB Transcribe Date/Time: Aug 09 2023 12:30P Dictated by : REGI WOODS MD This examination was interpreted and the report reviewed and electronically signed by: REGI WOODS MD on Aug 09 2023 12:34PM EST [id number] Normal [facility] ALBUMIN, URINE SPOTon 2022 ALBUMIN,URINE <7.0 Normal Not Established [facility] Comment on above: Performed By: #### A LBSP #### [address] [address] ALBUMIN/CREAT RATIO SEE COMMENT Normal 0.0 - 30.0 [facility] Comment on above: Result Comment: One or more analytes used in this calculation is outside of the analytical measurement range. Calculation cannot be performed. Performed By: #### A LBSP #### [address] [address] CREATININE,URINE 147.0 mg/dL Normal 20.0 - 320.0 [facility] Comment on above: Performed By: #### A LBSP #### [address] [address] CBC AND DIFFERENTIALon 07-27 % AUTOMATED IMMATURE GRAN 0.3 % Normal 0.0 - 0.9 [facility] Comment on above: Result Comment: Coni ture Granulocyte Count (IG) includes promyelocytes, myelocytes and metamyelocytes but does not include bands. Percent differential counts (%) should be interpreted in the context of the absolute cell counts (cells/L). Performed By: #### C BCDF #### [address] [address] Basophils (Bld) [#/Vol] 0.06 10*3/uL Normal 0.00 - 0.10 [facility] Comment on above: Performed By: #### C BCDF #### [address] [address] Basophils/100 WBC (Bld) 0.9 % Normal 0.0 - 2.0 [facility] Comment on above: Performed By: #### C BCDF #### [address] [address] Eosinophils (Bld) [#/Vol] 0.28 10*3/uL Normal 0.00 - 0.70 [facility] Comment on above: Performed By: #### C BCDF #### [address] [address] Eosinophils/100 WBC (Bld) 4.1 % Normal 0.0 - 6.0 [facility] Comment on above: Performed By: #### C BCDF #### [address] [address] Erythrocyte distribution width (RBC) [Ratio] 12.6 % Normal 11.5 - 14.5 [facility] Comment on above: Performed By: #### C BCDF #### [address] [address] Hematocrit (Bld) [Volume fraction] 40.3 % Normal 36.0 - 46.0 [facility] Comment on above: Performed By: #### C BCDF #### [address] [address] Hemoglobin (Bld) [Mass/Vol] 13.0 g/dL Normal 12.0 - 16.0 [facility] Comment on above: Performed By: #### C BCDF #### [address] [address] Lymphocytes (Bld) [#/Vol] 2.95 10*3/uL Normal 1.20 - 4.80 [facility] Comment on above: Performed By: #### C BCDF #### [address] [address] Lymphocytes/100 WBC (Bld) 42.8 % Normal 13.0 - 44.0 [facility] Comment on above: Performed By: #### C BCDF #### [address] [address] MCHC (RBC) [Mass/Vol] 32.3 g/dL Normal 32.0 - 36.0 [facility] Comment on above: Performed By: #### C BCDF #### [address] [address] MCV (RBC) [Entitic vol] 91 fL Normal 80 - 100 [facility] Comment on above: Performed By: #### C BCDF #### [address] [address] Monocytes (Bld) [#/Vol] 0.54 10*3/uL Normal 0.10 - 1.00 [facility] Comment on above: Performed By: #### C BCDF #### [address] [address] Monocytes/100 WBC (Bld) 7.8 % Normal 2.0 - 10.0 [facility] Comment on above: Performed By: #### C BCDF #### [address] [address] Neutrophils (Bld) [#/Vol] 3.05 10*3/uL Normal 1.20 - 7.70 [facility] Comment on above: Performed By: #### C BCDF #### [address] [address] Neutrophils/100 WBC (Bld) 44.1 % Normal 40.0 - 80.0 [facility] Comment on above: Performed By: #### C BCDF #### [address] [address] NUCLEATED RBC 0.0 /100 WBC Normal 0.0 - 0.0 [facility] Comment on above: Performed By: #### C BCDF #### [address] [address] Platelets (Bld) [#/Vol] 358 10*3/uL Normal 150 - 450 [facility] Comment on above: Performed By: #### C BCDF #### [facility] [address] [place] [address] RBC 4.42 x10E12/L Normal 4.00 - 5.20 [facility] Comment on above: Performed By: #### C BCDF #### [facility] [address] [place] [address] WBC (Bld) [#/Vol] 6.9 10*3/uL Normal 4.4 - 11.3 [facility] Comment on above: Performed By: #### C BCDF #### [facility] [address] [place] [address] COMPREHENSIVE PANELon 2022 Albumin [Mass/Vol] 4.5 g/dL Normal 3.4 - 5.0 [facility] Comment on above: Performed By: #### C OVSC #### [facility] [address] [place] [address] ALP [Catalytic activity/Vol] 85 U/L Normal 33 - 136 [facility] Comment on above: Performed By: #### C OVSC #### [facility] [address] [place] [address] ALT [Catalytic activity/Vol] 14 U/L Normal 7 - 45 [facility] Comment on above: Result Comment: Shaista ents treated with Sulfasalazine may generate falsely decreased results for ALT. Performed By: #### C OVSC #### [facility] [address] [place] [address] Anion gap [Moles/Vol] 11 mmol/L Normal 10 - 20 [facility] Comment on above: Performed By: #### C OVSC #### [facility] [address] [place] [address] AST [Catalytic activity/Vol] 14 U/L Normal 9 - 39 [facility] Comment on above: Performed By: #### C OVSC #### [facility] [address] [place] [address] Bilirubin [Mass/Vol] 0.4 mg/dL Normal 0.0 - 1.2 [facility] Comment on above: Performed By: #### C OVSC #### [facility] [address] [place] [address] Calcium [Mass/Vol] 9.7 mg/dL Normal 8.6 - 10.3 [facility] Comment on above: Performed By: #### C OVSC #### [facility] [address] [place] [address] Chloride [Moles/Vol] 105 mmol/L Normal 98 - 107 [facility] Comment on above: Performed By: #### C OVSC #### [place] [address] [place] [address] Creatinine [Mass/Vol] 1.06 mg/dL High 0.50 - 1.05 [facility] Comment on above: Performed By: #### C OVSC #### [facility] [address] [place] [address] GFR/1.73 sq M.predicted among non-blacks MDRD (S/P/Bld) [Vol rate/Area] 59 mL/min/{1.73_m2} Abnormal >90 [facility] Comment on above: Result Comment: CALC ULATIONS OF ESTIMATED GFR ARE PERFORMED USING THE 2020 CKD-EPI STUDY REFIT EQUATION WITHOUT THE RACE VARIABLE FOR THE IDMS-TRACEABLE CREATININE METHODS. https://jasn.asnjournals.org/content/early/ASN.7969961 988 Performed By: #### C OVSC #### [facility] [address] [place] [address] Glucose [Mass/Vol] 109 mg/dL High 74 - 99 [facility] Comment on above: Performed By: #### C OVSC #### [facility] [address] [place] [address] HCO3 (Bld) [Moles/Vol] 28 mmol/L Normal 21 - 32 [facility] Comment on above: Performed By: #### C OVSC #### [facility] [address] [place] [address] Potassium [Moles/Vol] 4.2 mmol/L Normal 3.5 - 5.3 [facility] Comment on above: Performed By: #### C OVSC #### [facility] [address] [place] [address] Protein [Mass/Vol] 7.7 g/dL Normal 6.4 - 8.2 [facility] Comment on above: Performed By: #### C OVSC #### [facility] [address] [place] [address] Sodium [Moles/Vol] 140 mmol/L Normal 136 - 145 [facility] Comment on above: Performed By: #### C OVSC #### [facility] [address] [place] [address] Urea nitrogen [Mass/Vol] 23 mg/dL Normal 6 - 23 [facility] Comment on above: Performed By: #### C OVSC #### [facility] [address] [place] [address] HEMOGLOBIN A1Con 07-27-2023 Glucose [Mass/Vol] 128 mg/dL Normal [facility] Comment on above: Performed By: #### A LBSP #### [facility] [address] [place] [address] HbA1c (Bld) [Mass fraction] 6.1 % Abnormal [facility] Comment on above: Result Comment: Diag nosis of Diabetes-Adults Non-Diabetic: < or = 5.6% Increased risk for developing diabetes: 5.7-6.4% Diagnostic of diabetes: > or = 6.5% . Monitoring of Diabetes Age (y) Therapeutic Goal (%) Adults: >18 <7.0 Pediatrics: 13-18 <7.5 7-12 <8.0 0- 6 7.5-8.5 [place] [employer]. Diabetes Care 33(S1), Nov 2009. Performed By: #### A LBSP #### [facility] [address] [place] [address] LDL, DIRECTon 07-27-2023 Cholesterol in LDL [Mass/Vol] 106 mg/dL Normal 0 - 129 [facility] Comment on above: Result Comment: Elev ated levels of LDL cholesterol are recognized as a fisher factor in the development of atherosclerosis and CHD. The direct LDL cholesterol test can be used to assess cardiovascular risk and monitor therapy as a follow up to a lipid profile when triglycerides are significantly elevated. Performed By: #### A LBSP #### [facility] [address] [place] [address] LIPID PANEL (CORONARY RISK 2 )on 07-27-2023 Cholesterol [Mass/Vol] 183 mg/dL Normal 0 - 199 [facility] Comment on above: Result Comment: . AGE [...] dosing. Performed By: #### C OVSC #### [facility] [address] [place] [address] Cholesterol in HDL [Mass/Vol] 33.1 mg/dL Abnormal [facility] Comment on above: Result Comment: . AGE VERY LOW LOW NORMAL HIGH 0-19 Y < 35 < 40 40-45 ---- 20-24 Y ---- < 40 >45 ---- >24 Y ---- < 40 40-60 >60 . Performed By: #### C OVSC #### [facility] [address] [place] [address] Cholesterol in LDL [Mass/Vol] 92 mg/dL Normal 0 - 99 [facility] Comment on above: Result Comment: . NEAR BORD AGE DESIRABLE OPTIMAL HIGH HIGH VERY HIGH 0-19 Y 0 - 109 --- 110-129 >/= 130 ---- 20-24 Y 0 - 119 --- 120-159 >/= 160 ---- >24 Y 0 - 99 100-129 130-159 160-189 >/=190 . Performed By: #### C OVSC #### [facility] [address] [place] [address] Cholesterol in VLDL [Mass/Vol] 58 mg/dL High 0 - 40 [facility] Comment on above: Performed By: #### C OVSC #### [facility] [address] [place] [address] Cholesterol.total/Ch olesterol in HDL [Mass ratio] 5.5 {ratio} Abnormal [facility] Comment on above: Result Comment: REF VALUES DESIRABLE < 3.4 HIGH RISK > 5.0 Performed By: #### C OVSC #### [facility] [address] [place] [address] NON-HDL CHOLESTEROL 150 mg/dL Normal [facility] Comment on above: Result Comment: AGE DESIRABLE BORDERLINE HIGH HIGH VERY HIGH 0-19 Y 0 - 119 120 - 144 >/= 145 >/= 160 20-24 Y 0 - 149 150 - 189 >/= 190 ---- >24 Y 30 MG/DL ABOVE LDL CHOLESTEROL GOAL . Performed By: #### C OVSC #### [facility] [address] [place] [address] Triglyceride [Mass/Vol] 288 mg/dL High 0 - 149 [facility] Comment on above: Result Comment: . AGE [...] dosing. Performed By: #### C OVSC #### [facility] [address] [place] [address] TSHon 07-27-2023 TSH Qn 0.61 m[IU]/L Normal 0.44 - 3.98 [facility] Comment on above: Result Comment: TSH testing is performed using different testing methodology at [facility] than at other [facility]. Direct result comparisons should only be made within the same method. Performed By: #### A LBSP #### [facility] [address] [place] [address] VITAMIN B12on 07-27-2023 Cobalamin (Vitamin B12) [Mass/Vol] 1408 pg/mL High 211 - 911 [facility] Comment on above: Performed By: #### V TB12 #### [facility] [address] [place] [address] VITAMIN D, 25-HYDROXYon 07-16 VITAMIN D, 25-HYDROXY 50 ng/mL Normal [facility] Comment on above: Result Comment: . DEFICIENCY: < 20 NG/ML INSUFFICIENCY: 20-29 NG/ML SUFFICIENCY: 30-100 NG/ML THIS ASSAY ACCURATELY QUANTIFIES THE SUM OF VITAMIN D3, 25-HYDROXY AND VIT D2,25-HYDROXY. Performed By: #### V TDOH #### [facility] [address] [place] [address] ALLIED HEALTHon 07-02-2023 ALLIED [facility] HNO ID: [id number] Author: Francesca Kaur Service: Radiology Author Type: ? Type: Allied Health Filed: 07/02/2023 10:12 AM Note Text: RADIOLOGY SERVICE PROGRESS NOTE DATE OF SERVICE: July 02, 2023 TIME OF SERVICE: 10:03AM EVENT: ARRIVED IN WHEELCHAIR ADDITIONAL EVENT DETAILS: NA SIGNATURE: Francesca Kaur PATIENT NAME: Marie Sexton DATE: July 02, 2023 TIME: 10:12 AM PAGER/CONTACT #: [facility] CNOVon 07-02-2023 CNOV Office Visit (ORFWHP ) MARIE SEXTON ([id number]) 1960 F Date Time Provider Department 07/02/23 [...] pain. - ORAL Earliest Fill Date: 06/21/2023 [facility] Modifiable Risk Factors (MoRF) Obesity Unknown [...] No new joint (more content not included)... [facility] XR ANKLE 3V AP/LAT/OBL RTon 07-02-2023 XR [...] appears intact. Pes planus. IMPRESSION: Postsurgical changes. Supervisor Chassis Assembly: SUBHASH Transcribe Date/Time: Jul 07 2023 7:59A Dictated by : SREE BUTTS MD This examination was interpreted and the report reviewed and electronically signed by: SREE BUTTS MD on Jul 07 2023 8:02AM EST [id number] [facility] CNOVon 06-07-2023 CNOV Office Visit (ORTHLD ) MARIE SEXTON ([id number]) 1960 F Date Time Provider Department 06/07/23 [...] habits, hematoche (more content not included)... [facility] MAR[facility] SEXT[facility] ([id number]) 1960 F Date Time Provider Department 06/07/23 11:30 AM [email or web address] [facility] ORTHLD During your visit today, we [...] Lorraine Yancey RN Referring Provider: MACARIO SANTOS [[id number]] Allergies As of Date: 06/07/2023 Noted Allergy [...] As Of Date 06/07/2023 Noted Resolved diabetes [[id number]] 05/17/2023 Neuropathy [G62.9] Hallux extensus, acquired [M20.5X9] [...] Encounter Status:Closed by MAHENDRA PRAJAPATI on 06/07/23 [facility] XR ANKLE 3V AP/LAT/OBL RTon 06-07-2023 XR [...] IMPRESSION: Postoperative findings as given the results. Supervisor Chassis Assembly: SUBHASH Transcribe Date/Time: Jun 10 2023 11:03A Dictated by : FANG HOLLOWAY MD This examination was interpreted and the report reviewed and electronically signed by: FANG HOLLOWAY MD on Jun 10 2023 11:06AM EST [id number] Normal [facility] CNOVon 05-27-2023 CNOV Office Visit (ORFWHP ) MARIE SEXTON ([id number]) 1960 F Date Time Provider Department 05/27/23 [...] As Of Date 05/27/2023 Noted Resolved diabetes [[id number]] 05/17/2023 Neuropathy [G62.9] Hallux extensus, acquired [M20.5X9] [...] Status:Closed by REGI CHERRY MA on 05/27/23 [facility] Bimal 05-24-2023 CNPN Telephone (FVFOPR) MARIE SEXTON ([id number]) 1960 F Date Time Provider Department 05/24/23 [...] Mara Stallworth RN Acute Pain Management Service [facility] Allergies As of Date: 05/24/2023 Noted Allergy [...] As Of Date 05/24/2023 Noted Resolved diabetes [[id number]] 05/17/2023 Neuropathy [G62.9] Hallux extensus, acquired [M20.5X9] [...] Encounter Status:Closed by BRIGETTE STALLWORTH on 05/24/23 [facility] 05-23-2023 JOSE ALBERTO Telephone (FVPRAD) MARIE SEXTON ([id number]) 1960 F Date Time Provider Department 05/23/23 KAYLYN LONDON During your visit today, we recorded the following information about you: Kaylyn London APRN.[facility] 05/23/2023 9:41 AM Signed Attempted to call pt to check on status of CADD pump. No answer, left detailed VM. Kaylyn London APRN.[employer] Allergies As of Date: 05/23/2023 Noted Allergy [...] As Of Date 05/23/2023 Noted Resolved diabetes [[id number]] 05/17/2023 Neuropathy [G62.9] Hallux extensus, acquired [M20.5X9] [...] Encounter Status:Closed by KAYLYN LONDON on 05/23/23 [facility] ([id number]) 1960 F Date Time Provider Department 05/19/23 BRIGETTE STALLWORTH FVFOPR During your visit today, we recorded the following information about you: Brigette Stallworth RN 05/19/2023 3:16 PM Signed Pt is POD# 2. S/P Right Leg removal of deep hardware Right Ankle fusion Right subtalar joint fusion Fibular osteotomy right ankle [place] of bone marrow autograft right leg with [...] Mara Stallworth RN Acute Pain Management Service [facility] Allergies As of Date: 05/19/2023 Noted Allergy [...] As Of Date 05/19/2023 Noted Resolved diabetes [[id number]] 05/17/2023 Neuropathy [G62.9] Hallux extensus, acquired [M20.5X9] [...] Encounter Status:Closed by BRIGETTE STALLWORTH on 05/19/23 [facility] CONSULT PROGon 05-18-2023 CONSULT PROG HNO ID: [id number] Author: Donell Khoury PA-C Service: Pain Management Author Type: Physician Fish Protector Type: Consult Progress Note Filed: 05/18/2023 8:35 AM Note Text: PERIPHERAL NERVE CATHETER PROGRESS NOTE PATIENT NAME: Marie Sexton SERVICE DATE: 05/18/2023 SERVICE TIME: 7:28 AM ASSESSMENT Marie Sexton is a 63 year old female who is POD# 1 Right Leg removal of deep hardware Right Ankle fusion Right subtalar joint fusion Fibular osteotomy right ankle [place] of bone marrow autograft right leg Patient reports good pain control 6/[address]. Adductor canal and Popliteal PNC running per CADD 0.2% @ 04/18/30. Dilaudid PRN and Roxicodone on board minimal usage with PNC in place. PLAN Continue current pain regimen, will follow. Patient with CADD pumps in place patient may go home with PNC in place and [employer] will call patient daily. SUBJECTIVE CHIEF COMPLAINT: Marie Sexton is a 63 year old female who is POD# 1 Right Leg removal of deep hardware Right Ankle fusion Right subtalar joint fusion Fibular osteotomy right ankle [place] of bone marrow autograft right leg PRIMARY [...] which included preparing to see the patient, [id number] patient care, completing clinical documentation, obtaining and/or reviewing separately obtained history, performing a medically appropriate examination, counseling and educating the patient/family/caregive r, and communicating results to the patient/family/caregive r. SIGNATURE: Donell Khoury PA-C PATIENT NAME: Marie Sexton DATE: May 18, 2023 TIME: 7:28 AM PAGER/CONTACT #: [facility] [phone] [facility] HISTORY PHYSICALon HISTORY PHYSICAL HNO ID: [id number] Author: Alannah Whiteside MD Service: Hospital Medicine Author Type: Physician Type: HANDP Filed: 05/17/2023 10:51 PM Note Text: Hospital Medicine Consult History and Physical PRIMARY SERVICE: HOSPITAL MEDICINE Days: [facility] hospital medicine team pager Evenings: [facility] hospital medicine pager [phone] PATIENT NAME: Marie Sexton DATE of SERVICE: [...] subtalar joint fusion Fibular osteotomy right ankle [place] of bone marrow autograft right leg SOCIAL [...] TIME: 10:50 PM Discussed with: Patient Normal [facility] ANES POSTPROC EVALon 023 ANES POSTPROC EVAL HNO ID: [id number] Author: Amelia Camara MD Service: Critical Care [...] May 17, 2023 TIME: 3:32 PM CSN: [id number] [facility] ANES PRE-OPon 05-17-2023 ANES PRE-OP HNO ID: [id number] Author: SÁNCHEZ Junior Service: Critical Care Author Type: Commissary Steward Type: Anesthesia Preprocedure Evaluation Filed: 05/17/2023 8:12 [...] Ankle) - POPLITEAL BLOCK Isto Bone graft; [place] TTC Nail and headless 6.5 and 5.5 screws; Floyd Large screw removal (5.0, 6.5) Isto confirmed by José Miguel Bridges - kf 05/11 [place] confirmed with Og Trevino - kf 05/11 [...] and consent discussed: yes. Patient / Responsible Republican agrees to proceed: yes Patient / Surrogate [...] by INJECTION(UNSPECIFI (more content not included)... Normal [facility] BRIEF OP NOTon 05-17-2023 BRIEF OP NOT HNO ID: [id number] Author: Macario Santos DPM Service: Podiatry Author Type: Physician Type: Brief Op Note Filed: 05/17/2023 10:59 AM Note Text: PODIATRIC SURGERY BRIEF OPERATIVE NOTE LOG ID: [id number] Surgery/Procedure Date: 05/17/2023 Incision/Procedure Start Time: 8:25 AM Incision Close/Procedure End Time: Surgeon(s)/Proceduralis t(s) and Fish Protector(s): Surgeon(s) and Role: * Macario Santos DPM - Primary Physician Fish Protector: Leslie Teresa PA-C Procedure(s): Right Leg removal of deep hardware Right Ankle fusion Right subtalar joint fusion Fibular osteotomy right ankle [place] of bone marrow autograft right leg Anesthesia: General Findings: Well aligned rearfoot Estimated Blood Loss: 100 mls Specimens: None Complications: NONE Pre-Op/Pre-Procedure Diagnosis: 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 Took bed close to the bathroom and with assistance helped her to the bathroom with a walker (2 person assist). [facility] NURSING PROG HNO ID: [id number] Author: Francesca Young RN Service: Nursing Author [...] overnight. He is putting orders in now. [facility] NURSING PROG HNO ID: [id number] Author: Melodie Lorenzo RN Service: Nursing Author [...] certain she will be okay at home. [facility] NURSING PROG HNO ID: [id number] Author: Brigette Stallworth RN Service: Pain Management Author Type: Registered Nurse Type: Nursing Progress Note Filed: 05/17/2023 7:24 AM Note Text: RIGHT popliteal nerve block with catheter RIGHT adductor nerve block with catheter Dr. Smith and Dr. Barbour Patient verbalized understanding of nerve block procedure. [facility] NURSING PROG HNO ID: [id number] Author: Gracie Abraham RN Service: Nursing Author [...] (RECOMMENDATION): None Electronically Signed By: Gracie Abraham [facility] OPERATIVE NOon 05-17-2023 OPERATIVE NO HNO ID: [id number] Author: Macario Santos DPM Service: Podiatry Author Type: Physician Type: Operative Report Filed: 05/17/2023 1:58 PM Note Text: SURGERY OPERATIVE NOTE LOG ID: [id number] Surgery/Procedure Date: 05/17/2023 Incision/Procedure Start Time: 8:25 AM Incision Close/Procedure End Time: 11:33 AM Surgeon(s)/Proceduralis t(s) and Fish Protector(s): Surgeon(s) and Role: * Macario Santos DPM - Primary Physician Fish Protector: Leslie Teresa PA-C PRE-OP/PRE-PROCEDURE DIAGNOSIS: 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 Once this was completed the [place] nail was placed into the leg and [...] available to assist. (more content not included)... [facility] XR ANKLE 2V AP/LAT RTon XR ANKLE 2V AP/LAT RT * * *Final Report* * * DATE OF EXAM: May 17 2023 10:49AM [facility] 5576 - XR ANKLE 2V AP/LAT [...] Please see procedure report for complete details. Supervisor Chassis Assembly: SUBHASH Transcribe Date/Time: May 17 2023 2:29P Dictated by : MIGUEL HERNANDEZ MD This examination was interpreted and the report reviewed and electronically signed by: MIGUEL HERNANDEZ MD on May 17 2023 2:33PM EST [id number] [facility] NM CARDIAC PERF STRESS/PHARM on 05-14-2023 NM CARDIAC PERF STRESS/PHARM * * *Final Report* * * DATE OF EXAM: May 14 2023 2:02PM [facility] 0006 - NM CARDIAC PERF STRESS/PHARM / PROCEDURE REASON: Preoperative cardiovascular examination * * * * Physician Interpretation * * * * Stress Field Naturalist Report: [place] [address] Date of service: 05/14/2023 12:27:48 PM Supervising [...] See administered radiotracer and doses below. Main [place] Date of service: 05/14/2023 12:27:48 PM Ordering [...] * * * ---- NM CTAC Report: [facility] Date of service: 05/14/2023 12:27:48 PM CTAC interpreting physician: Patrice Dalton MD PATIENT: Name: MARIE SEXTON Age: 63 years Gender: F 1. Incidental Findings from limited non-diagnostic CTAC: - Coronary calcifications visualized. * * * Final * * * ---- Stress ECG Report: [facility] Date of service: 05/14/2023 12:27:48 PM Ordering physician: DANA GOYAL exercise specialist: Rosina Gonzalez Fish Protector: Prem Shields Fellow: Annabelle Woodard MD and [...] 51% of (more content not included)... Normal [facility] PVR ANK/VILCHIS/TOE [place]ANCES[place] VAS LAB on 05-14-2023 PVR ANK/VILCHIS/TOE FRANCESCO VAS LAB Non-Invasive Vascular Laboratory [facility] F30 Lower Extremity Arterial Physiology Study [...] physician: Casie Moore MD, CYNTHIA Final [employer] [facility] : [id number] oDynamicsSISUID See Link below for Image Normal [facility] LEG ARTERIAL PERIPH FRANCESCO V LABon 05-14-2023 LEG ARTERIAL PERIPH FRANCESCO VAS LAB Non-Invasive Vascular Laboratory [facility] F30 Lower Extremity Arterial Duplex Bilateral/Complete [...] physician: Casie Moore MD, RPVI Final [employer] [facility] : [id number]. (more content not included)... Normal [facility] HISTORY PHYSICALon HISTORY PHYSICAL HNO ID: [id number] Author: Indiana Clemens PA-C Service: ? Author Type: Physician Fish Protector Type: HANDP Filed: 05/14/2023 4:12 PM Note [...] 160-4.5 mcg/actuati (more content not included)... Normal [facility] CNOVon 05-07-2023 CNOV Office Visit (CARINF ) MARIE SEXTON Kasey ([id number]) 1960 F Date Time Provider Department 05/07/23 2:00 PM DANA GOYALINF During your visit today, we recorded the following information about you: Pulse Blood pressure 68/minute 120/66 Dana Goyal MD 05/07/2023 3:11 PM Signed Heart[facility] V[facility] Thoracic [facility] Natalia Shrestha Department of Cardiovascular Medicine SECTION OF INTERVENTIONAL CARDIOLOGY OUTPATIENT VISIT DATE 05/07/2023 OUTPATIENT VISIT TYPE New PRIMARY CARE PHYSICIAN: Collins Andrews ([facility]) [address] [place] [address] REFERRING PHYSICIAN: No referring provider defined for [...] meals. hydrochlorothiazide (more content not included)... Normal [facility] COH99ht 05-07-2023 ECG01 Ventricular Rate : 6 8 BPM Atrial Rate : 68 BPM P-R Interval : 156 ms QRS Duration : 74 ms Q-T Interval : 394 ms QTC Calculation(Bazett) : 418 ms Calculated P Evarts : 55 degrees Calculated R Evarts : 52 degrees Calculated T Evarts : 64 degrees NORMAL SINUS RHYTHM NORMAL ECG Confirmed by MOIZ MAHER MD ([id number]) on 05/17/2023 10:36:53 AM NAME : MARIE SEXTON PID : [id number] : 1960 Gender : Female Race : [...] : , Acquired by : , Eusebio [facility] Bimal 05-05-2023 CNPN Telephone (ORFWHP) DARSHANMARIE ([id number]) 1960 F Date Time Provider Department 05/05/23 MACARIO SANTOS [facility] During your visit today, we recorded the following information about you: Pennie Quezada Pss 05/05/2023 1:47 PM Signed jewelry drill 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 spoke to patient with her daughter(Jennifer) regarding [...] As Of Date 05/05/2023 Noted Resolved diabetes [YOG6659] Neuropathy [G62.9] Hallux extensus, acquired [M20.5X9] HTN (hypertension) [I10] IBS (irritable bowel syndrome) [K58.9] Arthritis [M19.90] Diabetic foot ulcer [E11.621, L97.509] 12/21/2013 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 [facility] 04-22-2023 [facility] Office Visit (JAE ) MARIE SEXTON ([id number]) 1960 F Date Time Provider Department 04/22/23 [...] numbness o (more content not included)... Normal [facility] CT ANKLE WO IVCON RIGHTon [facility] CT ANKLE WO IVCON RTon 04-22 CT ANKLE WO IVCON RT * * *Final Report* * * DATE OF EXAM: Apr 22 2023 3:55PM [facility] 0061 - CT ANKLE WO IVCON RT [...] the right foot and ankle as described. Supervisor Chassis Assembly: PSCB Transcribe Date/Time: Apr 22 2023 4:18P Dictated by : COLLINS BENJAMIN MD This examination was interpreted and the report reviewed and electronically signed by: COLLINS BENJAMIN MD on Apr 22 2023 4:22PM EST [id number] Normal [facility] XR ANKLE 3V AP/LAT/OBL RTon 04-22-2023 XR [...] the hindfoot and midfoot without complication identified. Supervisor Chassis Assembly: [facility] Transcribe Date/Time: Apr 23 2023 4:47P Dictated by : RAMIRO PAEZ MD This examination was interpreted and the report reviewed and electronically signed by: RAMIRO PAEZ MD on Apr 23 2023 6:26PM EST [id number] Normal [facility] XR TIBIA FIBULA 2V AP/LAT LT on [...] for the characterization as clinically determined. . Supervisor Chassis Assembly: [facility] Transcribe Date/Time: Apr 23 2023 4:49P Dictated by : RAMIRO PAEZ MD This examination was interpreted and the report reviewed and electronically signed by: RAMIRO PAEZ MD on Apr 23 2023 6:29PM EST [id number] Normal [facility] GLUCOSE-POCTon 03-22-2023 Glucose [Mass/Vol] 100 mg/dL High 74 - 99 [facility] Comment on above: Performed By: #### G JONATHAN #### [facility] [address] [place] [address] Glucose Test strip manual (B ld) [Mass/Vol]on 03-22-2023 Glucose [Mass/Vol] 100 mg/dL High 74 - 99 mg/dL [facility] Interpretation and review of laboratory results [facility] Order Reconciliationon 03-22 Order Reconciliation Page 1 [...] continued as multivitamin Multiple Vitamins oral tablet Hancock-3 1000 mg oral capsule 1 cap(s) oral twice a day 01-Jun-2022 11:21 Hancock-3 1000 mg oral capsule 1 cap(s) oral twice a day 01-Jun-2022 11:21 Hancock-3 1000 mg oral capsule is continued as Hancock-3 1000 mg oral capsule turmeric 500 mg [...] gram/ D (more content not included)... Normal [facility] RF Unspecified body region L ess than 1 hour Views during surgeryon 03-22-2023 RIS LEGACY CONVERSIONS Conversion, Ge Radiology - 05/21/2023 [facility] Work Phone: Radiology Study observation (narrative) [facility] Work Phone: RF Unspecified body region L ess than 1 hour Views during surgeryOrdered By: Ge Conversion on 03-22-2023 [facility] Patient Profile - Preop v3on 03-19-2023 Patient Profile - Preop v3 Patient Profile - Preop: Initial Info: Patient DemographicsName: MARIE SEXTON Date: 1960 [address]: [address] [place] [address] Date/Time [id number]-7139 13:05 Primary Phone [phone] Instructions Givenappropriate clothing, bring responsible adult as the local city driver (procedure may be cancelled if no local city driver), center location, remove jewerly/piercings, time to [...] Reactionnot applicable Health Mgmt: [facility] Barriers to Managing Healthnone Relationship/Environ: Lives Withalone Living Arrangementshouse Resource/Environmental Concernsnone Anticipated Transition Toporter Services Anticipated at Transitionnone Tobacco Use: Tobacco Useno Pre-op Checklist: Arrival [id number] Arrival Time11:24 Procedure TypeRIGHT ANKLE SUBLUXATION REPAIR/ HARDWARE REMOVAL/ CALCANEAL OSTEOTOMY/ SKIN FLAP CLOSURE WITH C-ARM NPOyes Last Food [id number]-7052 21:00 Last Clear Fluid Ytzpis23-Sgj-3130 10:00 ID Band On Patientpatient ID (name), [...] Updated: 22-Mar-2023 11:50 by Christopher Caceres) Normal [facility] CBC AND DIFFERENTIALon 03-17 % AUTOMATED IMMATURE GRAN 0.4 % Normal 0.0 - 0.9 [facility] Comment on above: Result Comment: Coni ture Granulocyte Count (IG) includes promyelocytes, myelocytes and metamyelocytes but does not include bands. Percent differential counts (%) should be interpreted in the context of the absolute cell counts (cells/L). Performed By: #### C BCDF ####[facility] [place] [address] Basophils (Bld) [#/Vol] 0.05 10*3/uL Normal 0.00 - 0.10 [facility] Comment on above: Performed By: #### C BCDF ####[facility] [place] [address] Basophils/100 WBC (Bld) 0.6 % Normal 0.0 - 2.0 [facility] Comment on above: Performed By: #### C BCDF ####[address] [address] Eosinophils (Bld) [#/Vol] 0.23 10*3/uL Normal 0.00 - 0.70 [facility] Comment on above: Performed By: #### C BCDF ####[address] [address] Eosinophils/100 WBC (Bld) 2.9 % Normal 0.0 - 6.0 [facility] Comment on above: Performed By: #### C BCDF ####[address] [address] Erythrocyte distribution width (RBC) [Ratio] 12.3 % Normal 11.5 - 14.5 [facility] Comment on above: Performed By: #### C BCDF ####[address] [address] Hematocrit (Bld) [Volume fraction] 40.1 % Normal 36.0 - 46.0 [facility] Comment on above: Performed By: #### C BCDF ####[address] [address] Hemoglobin (Bld) [Mass/Vol] 13.5 g/dL Normal 12.0 - 16.0 [facility] Comment on above: Performed By: #### C BCDF ####[address] [address] Lymphocytes (Bld) [#/Vol] 3.98 10*3/uL Normal 1.20 - 4.80 [facility] Comment on above: Performed By: #### C BCDF ####[address] [address] Lymphocytes/100 WBC (Bld) 50.5 % Normal 13.0 - 44.0 [facility] Comment on above: Performed By: #### C BCDF ####[address] [address] MCHC (RBC) [Mass/Vol] 33.7 g/dL Normal 32.0 - 36.0 [facility] Comment on above: Performed By: #### C BCDF ####[facility] [place] [address], [place] [address] MCV (RBC) [Entitic vol] 92 fL Normal 80 - 100 [facility] Comment on above: Performed By: #### C BCDF ####[facility] [place] [address], [place] [address] Monocytes (Bld) [#/Vol] 0.53 10*3/uL Normal 0.10 - 1.00 [facility] Comment on above: Performed By: #### C BCDF ####[address] [place] [address] Monocytes/100 WBC (Bld) 6.7 % Normal 2.0 - 10.0 [facility] Comment on above: Performed By: #### C BCDF ####[address] [place] [address] Neutrophils (Bld) [#/Vol] 3.06 10*3/uL Normal 1.20 - 7.70 [facility] Comment on above: Performed By: #### C BCDF ####[address] [place] [address] Neutrophils/100 WBC (Bld) 38.9 % Normal 40.0 - 80.0 [facility] Comment on above: Performed By: #### C BCDF ####[address] [place] [address] NUCLEATED RBC 0.0 /100 WBC Normal 0.0 - 0.0 [facility] Comment on above: Performed By: #### C BCDF ####[address] [place] [address] Platelets (Bld) [#/Vol] 297 10*3/uL Normal 150 - 450 [facility] Comment on above: Performed By: #### C BCDF ####[address] [place] [address] RBC 4.36 x10E12/L Normal 4.00 - 5.20 [facility] Comment on above: Performed By: #### C BCDF ####[address] [place] [address] WBC (Bld) [#/Vol] 7.9 10*3/uL Normal 4.4 - 11.3 [facility] Comment on above: Performed By: #### C BCDF ####[facility] [place] [address] ALBUMIN, URINE SPOTon 2022 ALBUMIN,URINE <7.0 Normal Not Established [facility] Comment on above: Performed By: #### C OVSC #### [facility] [address] [place] [address] ALBUMIN/CREAT RATIO SEE COMMENT Normal 0.0 - 30.0 [facility] Comment on above: Result Comment: One or more analytes used in this calculation is outside of the analytical measurement range. Calculation cannot be performed. Performed By: #### C OVSC #### [facility] [address] [place] [address] CREATININE,URINE 56.3 mg/dL Normal 20.0 - 320.0 [facility] Comment on above: Performed By: #### C OVSC #### [facility] [address] [place] [address] ALBUMIN, URINE SPOTon 2022 ALBUMIN,URINE Canceled Normal [facility] Comment on above: Order Comment: TEST ALBUMIN, URINE SPOT WAS CANCELLED, 02/02/2023 10:27 not collected. Performed By: #### A LBSP #### [facility] [address] [place] [address] ALBUMIN/CREAT RATIO Canceled Normal [facility] Comment on above: Order Comment: TEST ALBUMIN, URINE SPOT WAS CANCELLED, 02/02/2023 10:27 not collected. Performed By: #### A LBSP #### [facility] [address] [place] [address] CREATININE,URINE Canceled Normal [facility] Comment on above: Order Comment: TEST ALBUMIN, URINE SPOT WAS CANCELLED, 02/02/2023 10:27 not collected. Performed By: #### A LBSP #### [facility] [address] [place] [address] COMPREHENSIVE PANELon 2022 Albumin [Mass/Vol] 4.6 g/dL Normal 3.4 - 5.0 [facility] Comment on above: Performed By: #### C MP #### [address] [place] [address] ALP [Catalytic activity/Vol] 42 U/L Normal 33 - 136 [facility] Comment on above: Performed By: #### C MP #### [address] [place] [address] ALT [Catalytic activity/Vol] 28 U/L Normal 7 - 45 [facility] Comment on above: Result Comment: Shaista ents treated with Sulfasalazine may generate falsely decreased results for ALT. Performed By: #### C MP #### [address] [place] [address] Anion gap [Moles/Vol] 13 mmol/L Normal 10 - 20 [facility] Comment on above: Performed By: #### C MP #### [address] [place] [address] AST [Catalytic activity/Vol] 20 U/L Normal 9 - 39 [facility] Comment on above: Performed By: #### C MP #### [address] [place] [address] Bilirubin [Mass/Vol] 0.3 mg/dL Normal 0.0 - 1.2 [facility] Comment on above: Performed By: #### C MP #### [address] [place] [address] Calcium [Mass/Vol] 10.0 mg/dL Normal 8.6 - 10.3 [facility] Comment on above: Performed By: #### C MP #### [address] [place] [address] Chloride [Moles/Vol] 103 mmol/L Normal 98 - 107 [facility] Comment on above: Performed By: #### C MP #### [address] [place] [address] Creatinine [Mass/Vol] 1.25 mg/dL High 0.50 - 1.05 [facility] Comment on above: Performed By: #### C MP #### [address] [address] GFR/1.73 sq M.predicted among non-blacks MDRD (S/P/Bld) [Vol rate/Area] 49 mL/min/{1.73_m2} Abnormal >90 [facility] Comment on above: Result Comment: CALC ULATIONS OF ESTIMATED GFR ARE PERFORMED USING THE 2020 CKD-EPI STUDY REFIT EQUATION WITHOUT THE RACE VARIABLE FOR THE IDMS-TRACEABLE CREATININE METHODS. https://jasn.asnjournals.org/content/early//ASN.1623474 988 Performed By: #### C MP #### [address] [place] [address] Glucose [Mass/Vol] 76 mg/dL Normal 74 - 99 [facility] Comment on above: Performed By: #### C MP #### [address] [place] [address] HCO3 (Bld) [Moles/Vol] 28 mmol/L Normal 21 - 32 [facility] Comment on above: Performed By: #### C MP #### [address] [place] [address] Potassium [Moles/Vol] 3.9 mmol/L Normal 3.5 - 5.3 [facility] Comment on above: Performed By: #### C MP #### [address] [place] [address] Protein [Mass/Vol] 7.4 g/dL Normal 6.4 - 8.2 [facility] Comment on above: Performed By: #### C MP #### [address] [place] [address] Sodium [Moles/Vol] 140 mmol/L Normal 136 - 145 [facility] Comment on above: Performed By: #### C MP #### [address] [place] [address] Urea nitrogen [Mass/Vol] 24 mg/dL High 6 - 23 [facility] Comment on above: Performed By: #### C MP #### [address] [place] [address] HEMOGLOBIN A1Con 02-02-2023 Glucose [Mass/Vol] 137 mg/dL Normal [facility] Comment on above: Performed By: #### H BA1E #### [facility] [address] [place] [address] HbA1c (Bld) [Mass fraction] 6.4 % Abnormal [facility] Comment on above: Result Comment: Diag nosis of Diabetes-Adults Non-Diabetic: < or = 5.6% Increased risk for developing diabetes: 5.7-6.4% Diagnostic of diabetes: > or = 6.5% . Monitoring of Diabetes Age (y) Therapeutic Goal (%) Adults: >18 <7.0 Pediatrics: 13-18 <7.5 7-12 <8.0 0- 6 7.5-8.5 [employer]. Diabetes Care 33(S1), Nov 2009. Performed By: #### H BA1E #### [facility] [address] [place] [address] TSHon 02-02-2023 TSH Qn 1.56 m[IU]/L Normal 0.44 - 3.98 [facility] Comment on above: Result Comment: TSH testing is performed using different testing methodology at [facility] than at other [facility]. Direct result comparisons should only be made within the same method. Performed By: #### T SH2 #### [facility] [address] [place] [address] VITAMIN D, 25-HYDROXYon 01-14 VITAMIN D, 25-HYDROXY 49 ng/mL Normal [facility] Comment on above: Result Comment: . DEFICIENCY: < 20 NG/ML INSUFFICIENCY: 20-29 NG/ML SUFFICIENCY: 30-100 NG/ML THIS ASSAY ACCURATELY QUANTIFIES THE SUM OF VITAMIN D3, 25-HYDROXY AND VIT D2,25-HYDROXY. Performed By: #### C OVSC #### [facility] [address] [place] [address] GLUCOSE-POCTon 01-08-2023 Glucose [Mass/Vol] 92 mg/dL Normal 74 - 99 [facility] Comment on above: Performed By: #### G JONATHAN ####[facility] [place] [address] Operative Reports - Nacheson 01-08-2023 Operative Reports - Naches SURGEON: Fang Rodriguez DPM DIGITAL ACCOUNT COORDINATOR: Buzz Dexter, PGY-3. PREOPERATIVE DIAGNOSES: 1. Hardware [...] LOSS: Less than 100 mL. MATERIALS USED: [place] Vitoss and BIO4 bone graft substitute augment [...] Charcot neuroarthropat (more content not included)... Normal [facility] Order Reconciliationon 01-08 Order Reconciliation Page 1 [...] continued as multivitamin Multiple Vitamins oral tablet Hancock-3 1000 mg oral capsule 1 cap(s) oral twice a day 01-Jun-2022 11:21 Hancock-3 1000 mg oral capsule 1 cap(s) oral twice a day 01-Jun-2022 11:21 Hancock-3 1000 mg oral capsule is continued as Hancock-3 1000 mg oral capsule turmeric 500 mg [...] tablet is (more content not included)... Normal [facility] Surgical Pathology Depar tmenton 01-08-2023 [facility] Surgical Pathology Department Name MARIE SEXTON Pathologist: [...] reviewed this case. Diagnostic interpretation performed at [place] [address] Clinical History: Contracture of joint of both [...] dimension. The largest piece is inscribed with Cross MediaworksAPE REF [id number] LOT [id number] 07MM X 80M. Additionally received is a blue-canales metal U-shaped piece of hardware with the inscription of [id number]. Soft tissue is not received the specimen. A photograph is been taken. The specimen is for gross examination only. MJR mjr/01/09/2023 [facility] Department of Pathology [address] [place] [address] Normal [facility] Comment on above: Performed By: #### C OVSC #### [address] [place] [address] Patient Profile - Preop v3on 01-07-2023 Patient Profile - Preop v3 Patient Profile - Preop: Initial Info: Patient DemographicsName: DARSHAN April Date: 1960 Address: [address] [place] [address] Date/Time Amswov09-Lcw-2096 12:31 Primary Phone [phone] Call Attemptedattempt 1 Instructions Giventime to arrive [...] Reactionnot applicable Health Mgmt: [facility] P Barriers to Managing Healthnone Relationship/Environ: Lives Withalone Living Arrangementshouse Resource/Environmental Concernsnone Anticipated Transition Toporter Services Anticipated at Transitionnone Tobacco Use: Tobacco Useno Pre-op Checklist: Arrival [id number] Arrival Time08:58 Procedure TypeRIGHT GASTROCNEMIUS RECESSION/ SUBTALAR JOINT & MIDFOOT FUSION/ TIBIA PARTIAL EXCISION WITH C-ARM RIGHT FOOT DJO HARDWARE REMOVAL NPOyes Last Food Wuvfmu69-Bnh-6628 20:30 Last Clear Fluid Wwrrrr55-Ovp-3202 07:45 ID Band On Patientpatient ID (name), allergy, falls risk Consent Signedyes Anesthesia Assessment Completedyes EKG Performedsee results tab Chest X-Ray Performednot ordered Preop Antibioticssent to OR Beta-vita CommentN/A COVID 19 Results in Last 7 daysN/A Glucose Yydyqd22 Type and Screen Resultedn/a HCG Urine TestN/A [...] 08-Jan-2023 09:18 by Christopher Caceres (RN) Normal [facility] BASIC METABOLIC PANELon 02-2 Anion gap [Moles/Vol] 11 mmol/L Normal 10 - 20 [facility] Comment on above: Performed By: #### B MP #### [facility] [address] [place] [address] Calcium [Mass/Vol] 9.9 mg/dL Normal 8.6 - 10.3 [facility] Comment on above: Performed By: #### B MP #### [address] [address] Chloride [Moles/Vol] 103 mmol/L Normal 98 - 107 [facility] Comment on above: Performed By: #### B MP #### [address] [address] Creatinine [Mass/Vol] 1.01 mg/dL Normal 0.50 - 1.05 [facility] Comment on above: Performed By: #### B MP #### [facility] [address] [place] [address] GFR/1.73 sq M.predicted among non-blacks MDRD (S/P/Bld) [Vol rate/Area] 63 mL/min/{1.73_m2} Normal >90 [facility] Comment on above: Result Comment: CALC ULATIONS OF ESTIMATED GFR ARE PERFORMED USING THE 2020 CKD-EPI STUDY REFIT EQUATION WITHOUT THE RACE VARIABLE FOR THE IDMS-TRACEABLE CREATININE METHODS. https://jasn.asnjournals.org/content/early/ASN.8848670 988 Performed By: #### B MP #### [facility] [address] [facility] [place] [address] Glucose [Mass/Vol] 120 mg/dL High 74 - 99 [facility] Comment on above: Performed By: #### B MP #### [facility] [address] [place] [address] HCO3 (Bld) [Moles/Vol] 30 mmol/L Normal 21 - 32 [facility] [facility] Comment on above: Performed By: #### B MP #### [facility] [address] [place] [address] Potassium [Moles/Vol] 4.7 mmol/L Normal 3.5 - 5.3 [facility] Comment on above: Performed By: #### B MP #### [facility] [address] [place] [address] Sodium [Moles/Vol] 139 mmol/L Normal 136 - 145 [facility] Comment on above: Performed By: #### B MP #### [address] [address] Urea nitrogen [Mass/Vol] 23 mg/dL Normal 6 - 23 [facility] Comment on above: Performed By: #### B MP #### [address] [address] CBC AND DIFFERENTIALon 01-05 % AUTOMATED IMMATURE GRAN 0.2 % Normal 0.0 - 0.9 [facility] Comment on above: Result Comment: Coni ture Granulocyte Count (IG) includes promyelocytes, myelocytes and metamyelocytes but does not include bands. Percent differential counts (%) should be interpreted in the context of the absolute cell counts (cells/L). Performed By: #### C BCDF ####[facility] [place] [address] Basophils (Bld) [#/Vol] 0.05 10*3/uL Normal 0.00 - 0.10 [facility] Comment on above: Performed By: #### C BCDF ####[facility] [place] [address] Basophils/100 WBC (Bld) 0.6 % Normal 0.0 - 2.0 [facility] Comment on above: Performed By: #### C BCDF ####[facility] [place] [address] Eosinophils (Bld) [#/Vol] 0.24 10*3/uL Normal 0.00 - 0.70 [facility] Comment on above: Performed By: #### C BCDF ####[address] [address] Eosinophils/100 WBC (Bld) 2.8 % Normal 0.0 - 6.0 [facility] Comment on above: Performed By: #### C BCDF ####[address] [address] Erythrocyte distribution width (RBC) [Ratio] 12.8 % Normal 11.5 - 14.5 [facility] Comment on above: Performed By: #### C BCDF ####[address] [address] Hematocrit (Bld) [Volume fraction] 41.1 % Normal 36.0 - 46.0 [facility] Comment on above: Performed By: #### C BCDF ####[address] [address] Hemoglobin (Bld) [Mass/Vol] 13.8 g/dL Normal 12.0 - 16.0 [facility] Comment on above: Performed By: #### C BCDF ####[address] [address] Lymphocytes (Bld) [#/Vol] 3.56 10*3/uL Normal 1.20 - 4.80 [facility] Comment on above: Performed By: #### C BCDF ####[address] [address] Lymphocytes/100 WBC (Bld) 41.4 % Normal 13.0 - 44.0 [facility] Comment on above: Performed By: #### C BCDF ####[address] [address] MCHC (RBC) [Mass/Vol] 33.6 g/dL Normal 32.0 - 36.0 [facility] Comment on above: Performed By: #### C BCDF ####[address] [address] MCV (RBC) [Entitic vol] 90 fL Normal 80 - 100 [facility] Comment on above: Performed By: #### C BCDF ####[address] [address] Monocytes (Bld) [#/Vol] 0.61 10*3/uL Normal 0.10 - 1.00 [facility] Comment on above: Performed By: #### C BCDF ####[address] [address] Monocytes/100 WBC (Bld) 7.1 % Normal 2.0 - 10.0 [facility] Comment on above: Performed By: #### C BCDF ####[address] [address] Neutrophils (Bld) [#/Vol] 4.11 10*3/uL Normal 1.20 - 7.70 [facility] Comment on above: Performed By: #### C BCDF ####[address] [address] Neutrophils/100 WBC (Bld) 47.9 % Normal 40.0 - 80.0 [facility] Comment on above: Performed By: #### C BCDF ####[address] [address] NUCLEATED RBC 0.0 /100 WBC Normal 0.0 - 0.0 [facility] Comment on above: Performed By: #### C BCDF ####[address] [address] Platelets (Bld) [#/Vol] 287 10*3/uL Normal 150 - 450 [facility] Comment on above: Performed By: #### C BCDF ####[address] [address] RBC 4.58 x10E12/L Normal 4.00 - 5.20 [facility] Comment on above: Performed By: #### C BCDF ####[address] [address] WBC (Bld) [#/Vol] 8.6 10*3/uL Normal 4.4 - 11.3 [facility] Comment on above: Performed By: #### C BCDF ####[address] [address] Electrocardiogram 12 Leadon 01-05-2023 Electrocardiogram 12 Lead Ventricular Rate 69 Atrial Rate 69 P-R Interval 144 QRS Duration 70 Q-T Interval 396 QTC Calculation(Bazett) 424 P Evarts 60 R Evarts 41 T Evarts 64 QRS Count 12 Q Onset 220 P Onset 148 P Offset 201 T Offset 418 QTC Fredericia 415 Diagnosis Class Normal Diagnosis Normal sinus rhythm Normal ECG When compared with ECG of 01-JUN-2022 11:38, No significant change was found Confirmed by Javed Bravo ([id number]) on 01/08/2023 3:39:12 PM Normal [facility] GLUCOSE-POCTon 08-21-2022 Glucose [Mass/Vol] 82 mg/dL Normal 74 - 99 [facility] Comment on above: Performed By: #### G JONATHAN #### [facility] [address] [place] [address] Operative Reports - Nachesmarcial 08-21-2022 Operative Reports - [place] SURGEON: Fang Rodriguez DPM DIGITAL ACCOUNT COORDINATOR: Darin Dawn, PGY-2. SECOND ENGINEERING AIDE: Sirena Oconnor, PGY-3. PREOPERATIVE DIAGNOSES: 1. Anterior [...] Adaptic, gauze, and a slightly compressive short-leg dibfk-otr-tjxs cast was then applied. The foot was held in dorsiflexed position at this time. The patient was then transferred to the PACU with vital signs stable and vascular status intact. COMPLICATIONS: Significant disease with tendon requiring cadaveric tendon to be used. SPECIMEN: None. Fang Rodriguez DPM EST EST DICTATION NUMBER: [id number] INTERNAL JOB NUMBER: [id number] Electronic Signatures: Fang Rodriguez) (Signed on 28-Aug-2022 08:37) Authored Unsigned, Draft (SYS GENERATED) (Entered on 22-Aug-2022 21:23) Entered Last Updated: 28-Aug-2022 08:37 by Fang Rodriguez) [facility] Order Reconciliationon 08-21 Order Reconciliation Page 1 [...] continued as multivitamin Multiple Vitamins oral tablet Hancock-3 1000 mg oral capsule 1 cap(s) oral twice a day 01-Jun-2022 11:21 Hancock-3 1000 mg oral capsule 1 cap(s) oral twice a day 01-Jun-2022 11:21 Hancock-3 1000 mg oral capsule is continued as Hancock-3 1000 mg oral capsule turmeric 500 mg [...] mg oral (more content not included)... Normal [facility] Patient Profile - Preop v3on 08-20-2022 Patient Profile - Preop v3 Patient Profile - Preop: Initial Info: Patient DemographicsName: DARSHAN April Date: 1960 Address: [address] [place] [address] [place] [address] Date/Time [id number] 11:43 Primary Phone [phone] Call Attemptedattempt 1 Instructions Giventime to arrive, insurance information, center location, bring responsible adult as the local city driver (procedure may be cancelled if no local city driver), remove jewerly/piercings, appropriate clothing Prep Instructions [...] Health: Weight in kg88 kilogram(s) Weight in tyk974 pound(s) Weight Methodstated Height in feet6 feet Height in inches0.95 inch(es) Height in cm185.2 centimeter(s) Height Methodstated BMI (kg/m2)25.656 square meter Patient or Family Member Reaction to Anesthesiano previous reaction Blood Avoidance/Restrictionsn one Previous Transfusion Reactionnot applicable Health Mgmt: [facility] H&P Barriers to Managing Healthnone Relationship/Environ: Lives Withalone Living Arrangementshouse Resource/Environmental Concernsnone Anticipated Transition Toporter Services Anticipated at Transitionnone Tobacco Use: Tobacco [...] 21-Aug-2022 10:45 by Sabrina Hopkins (RN) Normal [facility] CORONAVIRUS 2019, SCREEN ASY MPTOMATICon 08-13-2022 SARS-CoV-2 (COVID-19) RNA KING+probe Ql (Unsp spec) Not detected Normal Not Detected [facility] Comment on above: Result Comment: . This [...] patient management decisions. Fact sheet for providers: https://www.fda.gov/media/646992/download Fact sheet for patients: https://www.fda.gov/media/010907/download This test has received FDA Emergency Use Authorization (EUA) and has been verified by [facility] ([facility]). This test is only authorized for the duration of time that circumstances exist to justify the authorization of the emergency use of in vitro diagnostic tests for the detection of SARS-CoV-2 virus and/or diagnosis of COVID-19 infection under section 564(b)(1) of the Act, 21 U.S.C. 360bbb-3(b)(1), unless the authorization is terminated or revoked sooner. [facility] is certified under CLIA-88 as qualified to perform high complexity testing. Testing is performed in the [facility] laboratories located at [id number] [place] [address]. Performed By: #### C OVSC #### [facility] [address] [place] [address] Covid 19 Resultson 2 SARS-CoV-2 (COVID-19) RNA [...] You may also be contacted by the [facility] of Health to see if any of [...] or Naproxen (Aleve) can also be used. Lpnj-wqu-wukvlgg cough and cold medicines can be used according to the instructions on the package. Some mzwc-ssf-vxvfigk medicines also contain acetaminophen. Make sure you [...] water are not available, use alcohol-based hand bicycle fitter. Avoid touching your eyes, nose, and mouth [...] 24 chevy (more content not included)... Normal [facility] GLUCOSE-POCTon 08-13-2022 Glucose [Mass/Vol] 160 mg/dL High 74 - 99 [facility] Comment on above: Performed By: #### G JONATHAN #### [facility] [address] [place] [address] Operative Reports - [facility] [place] 08-13-2022 Operative Reports - [place] SURGEON: Fang Rodriguez DPM ENGINEERING AIDE: Sirena Oconnor, PGY-3 PREOPERATIVE DIAGNOSES: 1. Broken [...] identified and (more content not included)... Normal [facility] Order Reconciliationon 08-13 Order Reconciliation Page 1 [...] continued as multivitamin Multiple Vitamins oral tablet Hancock-3 1000 mg oral capsule 1 cap(s) oral twice a day 01-Jun-2022 11:21 Hancock-3 1000 mg oral capsule 1 cap(s) oral twice a day 01-Jun-2022 11:21 Hancock-3 1000 mg oral capsule is continued as Hancock-3 1000 mg oral capsule turmeric 500 mg [...] tab(s) oral (more content not included)... Normal [facility] CORONAVIRUS 2019, SCREEN ASY MPTOMATICon 08-12-2022 Lab Specimen Source Nasal, Nasopharyngeal Normal [facility] Comment on above: Performed By: #### C OVSC #### [facility] [address] [place] [id number] Patient Profile - Preop v3on 08-12-2022 Patient Profile - Preop v3 Patient Profile - Preop: Initial Info: Patient DemographicsName: MARIE SEXTON Date: 1960 Address: [address] [place] [address] Date/Time [id number] 11:51 Primary Phone [phone] Call Attemptedattempt 1 Instructions Giventime to arrive [...] Reactionnot applicable Health Mgmt: [facility] H+P Barriers to Managing Healthnone Relationship/Environ: Lives Withspouse Living Arrangementshouse Resource/Environmental Concernsnone Anticipated Transition Toporter Services Anticipated at Transitionnone Tobacco Use: Tobacco Useno Pre-op Checklist: Arrival [id number] Arrival Time06:30 Procedure TypeRIGHT MIDFOOT FUSION/ REPAIR SUBLUXED TARSAL JOINT WITH C-ARM RIGHT FOOT HARDWARE REMOVAL NPOyes Last Food [id number]-7243 22:30 Last Clear Fluid [id number]-2817 22:30 ID Band On Patientpatient ID (name), [...] 13-Aug-2022 06:56 by Christopher Caceres (DEMI) Normal [facility] CBC AND DIFFERENTIALon 08-10 % AUTOMATED IMMATURE GRAN 0.4 % Normal 0.0 - 0.9 [facility] Comment on above: Result Comment: Coni ture Granulocyte Count (IG) includes promyelocytes, myelocytes and metamyelocytes but does not include bands. Percent differential counts (%) should be interpreted in the context of the absolute cell counts (cells/L). Performed By: #### C BCDF #### [facility] [address] [place] [address] Basophils (Bld) [#/Vol] 0.05 10*3/uL Normal 0.00 - 0.10 [facility] Comment on above: Performed By: #### C BCDF #### [address] [address] Basophils/100 WBC (Bld) 0.7 % Normal 0.0 - 2.0 [facility] Comment on above: Performed By: #### C BCDF #### [address] [address] Eosinophils (Bld) [#/Vol] 0.20 10*3/uL Normal 0.00 - 0.70 [facility] Comment on above: Performed By: #### C BCDF #### [address] [address] Eosinophils/100 WBC (Bld) 2.6 % Normal 0.0 - 6.0 [facility] Comment on above: Performed By: #### C BCDF #### [address] [address] Erythrocyte distribution width (RBC) [Ratio] 12.9 % Normal 11.5 - 14.5 [facility] Comment on above: Performed By: #### C BCDF #### [address] [address] Hematocrit (Bld) [Volume fraction] 38.5 % Normal 36.0 - 46.0 [facility] Comment on above: Performed By: #### C BCDF #### [address] [address] Hemoglobin (Bld) [Mass/Vol] 12.6 g/dL Normal 12.0 - 16.0 [facility] Comment on above: Performed By: #### C BCDF #### [address] [address] Lymphocytes (Bld) [#/Vol] 2.69 10*3/uL Normal 1.20 - 4.80 [facility] Comment on above: Performed By: #### C BCDF #### [address] [address] Lymphocytes/100 WBC (Bld) 35.6 % Normal 13.0 - 44.0 [facility] Comment on above: Performed By: #### C BCDF #### [facility] [address] [place] [address], [place] [address] MCHC (RBC) [Mass/Vol] 32.7 g/dL Normal 32.0 - 36.0 [facility] Comment on above: Performed By: #### C BCDF #### [address] [place] [address] MCV (RBC) [Entitic vol] 90 fL Normal 80 - 100 [facility] Comment on above: Performed By: #### C BCDF #### [address] [place] [address] Monocytes (Bld) [#/Vol] 0.56 10*3/uL Normal 0.10 - 1.00 [facility] Comment on above: Performed By: #### C BCDF #### [address] [place] [address] Monocytes/100 WBC (Bld) 7.4 % Normal 2.0 - 10.0 [facility] Comment on above: Performed By: #### C BCDF #### [address] [place] [address] Neutrophils (Bld) [#/Vol] 4.02 10*3/uL Normal 1.20 - 7.70 [facility] Comment on above: Performed By: #### C BCDF #### [address] [place] [address] Neutrophils/100 WBC (Bld) 53.3 % Normal 40.0 - 80.0 [facility] Comment on above: Performed By: #### C BCDF #### [facility] [address] [place] [address], [place] [address] NUCLEATED RBC 0.0 /100 WBC Normal 0.0 - 0.0 [facility] Comment on above: Performed By: #### C BCDF #### [address] [place] [address] Platelets (Bld) [#/Vol] 360 10*3/uL Normal 150 - 450 [facility] Comment on above: Performed By: #### C BCDF #### [facility] [address] [place] [address] RBC 4.27 x10E12/L Normal 4.00 - 5.20 [facility] Comment on above: Performed By: #### C BCDF #### [facility] [address] [place] [address] WBC (Bld) [#/Vol] 7.6 10*3/uL Normal 4.4 - 11.3 [facility] Comment on above: Performed By: #### C BCDF #### [facility] [address] [place] [address] COMPREHENSIVE PANELon 2021 Albumin [Mass/Vol] 4.2 g/dL Normal 3.4 - 5.0 [facility] Comment on above: Performed By: #### C MP #### [facility] [address] [place] [address] ALP [Catalytic activity/Vol] 77 U/L Normal 33 - 136 [facility] Comment on above: Performed By: #### C MP #### [facility] [address] [place] [address] ALT [Catalytic activity/Vol] 14 U/L Normal 7 - 45 [facility] Comment on above: Result Comment: Shaista ents treated with Sulfasalazine may generate falsely decreased results for ALT. Performed By: #### C MP #### [facility] [address] [place] [address] Anion gap [Moles/Vol] 13 mmol/L Normal 10 - 20 [facility] Comment on above: Performed By: #### C MP #### [facility] [address] [place] [address] AST [Catalytic activity/Vol] 18 U/L Normal 9 - 39 [facility] Comment on above: Performed By: #### C MP #### [facility] [address] [place] [address] Bilirubin [Mass/Vol] 0.3 mg/dL Normal 0.0 - 1.2 [facility] Comment on above: Performed By: #### C MP #### [facility] [address] [place] [address] Calcium [Mass/Vol] 10.0 mg/dL Normal 8.6 - 10.6 [facility] Comment on above: Performed By: #### C MP #### [facility] [address] [place] [address] Chloride [Moles/Vol] 105 mmol/L Normal 98 - 107 [facility] Comment on above: Performed By: #### C MP #### [facility] [address] [place] [address] Creatinine [Mass/Vol] 1.14 mg/dL High 0.50 - 1.05 [facility] Comment on above: Performed By: #### C MP #### [facility] [address] [place] [address] GFR/1.73 sq M.predicted among non-blacks MDRD (S/P/Bld) [Vol rate/Area] 55 mL/min/{1.73_m2} Abnormal >90 [facility] Comment on above: Result Comment: CALC ULATIONS OF ESTIMATED GFR ARE PERFORMED USING THE 2020 CKD-EPI STUDY REFIT EQUATION WITHOUT THE RACE VARIABLE FOR THE IDMS-TRACEABLE CREATININE METHODS. https://jasn.asnjournals.org/content//ASN.8286195 988 Performed By: #### C MP #### [facility] [address] [place] [address] Glucose [Mass/Vol] 87 mg/dL Normal 74 - 99 [facility] Comment on above: Performed By: #### C MP #### [facility] [address] [place] [address] HCO3 (Bld) [Moles/Vol] 28 mmol/L Normal 21 - 32 [facility] Comment on above: Performed By: #### C MP #### [facility] [address] [place] [address] Potassium [Moles/Vol] 4.0 mmol/L Normal 3.5 - 5.3 [facility] Comment on above: Performed By: #### C MP #### [facility] [address] [place] [address] Protein [Mass/Vol] 7.5 g/dL Normal 6.4 - 8.2 [facility] Comment on above: Performed By: #### C MP #### [facility] [address] [place] [address] Sodium [Moles/Vol] 142 mmol/L Normal 136 - 145 [facility] Comment on above: Performed By: #### C MP #### [facility] [address] [place] [address] Urea nitrogen [Mass/Vol] 21 mg/dL Normal 6 - 23 [facility] Comment on above: Performed By: #### C MP #### [facility] [address] [place] [address] HEMOGLOBIN A1Con 07-31-2022 Glucose [Mass/Vol] 105 mg/dL Normal [facility] Comment on above: Performed By: #### C OVSC #### [facility] [address] [place] [address] HbA1c (Bld) [Mass fraction] 5.3 % Normal [facility] Comment on above: Result Comment: Diag nosis of Diabetes-Adults Non-Diabetic: < or = 5.6% Increased risk for developing diabetes: 5.7-6.4% Diagnostic of diabetes: > or = 6.5% . Monitoring of Diabetes Age (y) Therapeutic Goal (%) Adults: >18 <7.0 Pediatrics: 13-18 <7.5 7-12 <8.0 0- 6 7.5-8.5 [employer]. Diabetes Care 33(S1), Nov 2009. Performed By: #### C OVSC #### [facility] [address] [place] [address] LDL, DIRECTon 07-31-2022 Cholesterol in LDL [Mass/Vol] 95 mg/dL Normal 0 - 129 [facility] Comment on above: Result Comment: Elev ated levels of LDL cholesterol are recognized as a fisher factor in the development of atherosclerosis and CHD. The direct LDL cholesterol test can be used to assess cardiovascular risk and monitor therapy as a follow up to a lipid profile when triglycerides are significantly elevated. Performed By: #### C OVSC #### [facility] [address] [place] [address] LIPID PANEL (CORONARY RISK 2 )on 07-31-2022 Cholesterol [Mass/Vol] 152 mg/dL Normal 0 - 199 [facility] Comment on above: Result Comment: . AGE [...] dosing. Performed By: #### C OVSC #### [facility] [address] [place] [address] Cholesterol in HDL [Mass/Vol] 36.6 mg/dL Abnormal [facility] Comment on above: Result Comment: . AGE VERY LOW LOW NORMAL HIGH 0-19 Y < 35 < 40 40-45 ---- 20-24 Y ---- < 40 >45 ---- >24 Y ---- < 40 40-60 >60 . Performed By: #### C OVSC #### [facility] [address] [place] [address] Cholesterol in LDL [Mass/Vol] 79 mg/dL Normal 0 - 99 [facility] Comment on above: Result Comment: . NEAR BORD AGE DESIRABLE OPTIMAL HIGH HIGH VERY HIGH 0-19 Y 0 - 109 --- 110-129 >/= 130 ---- 20-24 Y 0 - 119 --- 120-159 >/= 160 ---- >24 Y 0 - 99 100-129 130-159 160-189 >/=190 . Performed By: #### C OVSC #### [facility] [address] [place] [address] Cholesterol in VLDL [Mass/Vol] 37 mg/dL Normal 0 - 40 [facility] Comment on above: Performed By: #### C OVSC #### [facility] [address] [place] [address] Cholesterol.total/Ch olesterol in HDL [Mass ratio] 4.2 {ratio} Normal [facility] Comment on above: Result Comment: REF VALUES DESIRABLE < 3.4 HIGH RISK > 5.0 Performed By: #### C OVSC #### [facility] [address] [place] [address] Triglyceride [Mass/Vol] 183 mg/dL High 0 - 149 [facility] Comment on above: Result Comment: . AGE [...] dosing. Performed By: #### C OVSC #### [facility] [address] [place] [address] TSHon 07-31-2022 TSH Qn 1.32 m[IU]/L Normal 0.44 - 3.98 [facility] Comment on above: Result Comment: TSH testing is performed using different testing methodology at [facility] than at other [facility]. Direct result comparisons should only be made within the same method. Performed By: #### A LBSP #### [facility] [address] [place] [address] GLUCOSE-POCTon 06-05-2022 Glucose [Mass/Vol] 128 mg/dL High 74 - 99 [facility] Comment on above: Performed By: #### G JONATHAN #### [address] [address] Operative Reports - Nacheson 06-05-2022 Operative Reports - [place] SURGEON: Fang Rodriguez, DPM 1ST ENGINEERING AIDE: Josias Oliveros, PGY-3. 2ND ENGINEERING AIDE: Ly Sheikh, PGY-2. PREOPERATIVE DIAGNOSES: 1. Right [...] MATERIALS USED: Floyd Iconix and ReelX anchor, [place] TissueMend, DJO SteriShield, DJO subtalar nail, MedShape [...] a tissue protector was inserted and a Zurff saber blade was utilized to transect the [...] joint was then distracted with a lamina corporate tax preparer and the joint was prepared utilizing a combination of rongeur, osteotome, curette, subchondral drilling and fish scaling was performed until there was healthy bleeding bone. The incision was flushed. It was packed with bone graft substitute mixed with PRP and the joint was then closed in layers with Vicryl and Prolene suture. The subtalar joint nail was then inserted per life scientist's recommended technique an 80 mm nail along [...] stressed under (more content not included)... Normal [facility] Order Reconciliationon 06-05 Order Reconciliation Page 1 [...] continued as multivitamin Multiple Vitamins oral tablet Hancock-3 1000 mg oral capsule 1 cap(s) oral twice a day 01-Jun-2022 11:21 Hancock-3 1000 mg oral capsule 1 cap(s) oral twice a day 01-Jun-2022 11:21 Hancock-3 1000 mg oral capsule is continued as Hancock-3 1000 mg oral capsule turmeric 500 mg [...] mg oral (more content not included)... Normal [facility] Patient Profile - Preop v3on 06-04-2022 Patient Profile - Preop v3 Patient Profile - Preop: Initial Info: Patient DemographicsName: MARIE SEXTON Date: 1960 Address: [address] [place] [address] Date/Time [id number] 12:21 Primary Phone [phone] Instructions Givenappropriate clothing, bring responsible adult as the local city driver (procedure may be cancelled if no local city driver), center location, remove jewerly/piercings, time to arrive, arrival time of 0800 for 0930 surgery Prep Instructions Reviewedyes Prep Typeper office Instructed to Have No Fluids Aftermidnight How to be Addresseddtr Spoken Language PreferredEnglish Source of Informationpatient Stated Reason for Admissionright foot Primary Contact Name and Numberfamily Limitations on Visitors/Phone Callsnone Medications Brought to Hospitalno General Health: Weight in kg89.3 kilogram(s) Weight in lez214.8 pound(s) Weight Methodactual (measured) Scale Typestanding Height [...] child(mehul) Living Arrangementshouse Resource/Environmental Concernsnone Anticipated Transition Toporter Services Anticipated at Transitionnone Tobacco Use: Tobacco Useyes Last Tobacco [id number] Number of Packs per Day1 Pre-op Checklist: Procedure Typeright foot NPOyes Last Food [id number]-[id number] 19:00 Last Clear Fluid Aujxre51-Gan-3471 07:00 ID Band On Patientpatient ID (name), [...] 05-Jun-2022 08:36 by Torrie Landaverde (RN) Normal [facility] BASIC METABOLIC PANELon 07- Anion gap [Moles/Vol] 12 mmol/L Normal 10 - 20 [facility] Comment on above: Performed By: #### B MP #### [address] [address] Calcium [Mass/Vol] 9.8 mg/dL Normal 8.6 - 10.3 [facility] [facility] Comment on above: Performed By: #### B MP #### [address] [address] Chloride [Moles/Vol] 103 mmol/L Normal 98 - 107 [facility] Comment on above: Performed By: #### B MP #### [address] [address] Creatinine [Mass/Vol] 0.94 mg/dL Normal 0.50 - 1.05 [facility] Comment on above: Performed By: #### B MP #### [address] [address] GFR/1.73 sq M.predicted among non-blacks MDRD (S/P/Bld) [Vol rate/Area] 69 mL/min/{1.73_m2} Normal >90 [facility] Comment on above: Result Comment: CALC ULATIONS OF ESTIMATED GFR ARE PERFORMED USING THE 2020 CKD-EPI STUDY REFIT EQUATION WITHOUT THE RACE VARIABLE FOR THE IDMS-TRACEABLE CREATININE METHODS. https://jasn.asnjournals.org/content//ASN.3882838 988 Performed By: #### B MP #### [address] [address] Glucose [Mass/Vol] 129 mg/dL High 74 - 99 [facility] Comment on above: Performed By: #### B MP #### [address] [address] HCO3 (Bld) [Moles/Vol] 28 mmol/L Normal 21 - 32 [facility] Comment on above: Performed By: #### B MP #### [address] [address] Potassium [Moles/Vol] 4.2 mmol/L Normal 3.5 - 5.3 [facility] Comment on above: Performed By: #### B MP #### [address] [address] Sodium [Moles/Vol] 139 mmol/L Normal 136 - 145 [facility] Comment on above: Performed By: #### B MP #### [address] [address] Urea nitrogen [Mass/Vol] 22 mg/dL Normal 6 - 23 [facility] Comment on above: Performed By: #### B MP #### [address] [address] CBC AND DIFFERENTIALon 06-01 % AUTOMATED IMMATURE GRAN 0.4 % Normal 0.0 - 0.9 [facility] Comment on above: Result Comment: Coni ture Granulocyte Count (IG) includes promyelocytes, myelocytes and metamyelocytes but does not include bands. Percent differential counts (%) should be interpreted in the context of the absolute cell counts (cells/L). Performed By: #### C BCDF #### [address] [address] Basophils (Bld) [#/Vol] 0.05 10*3/uL Normal 0.00 - 0.10 [facility] Comment on above: Performed By: #### C BCDF #### [address] [address] Basophils/100 WBC (Bld) 0.7 % Normal 0.0 - 2.0 [facility] Comment on above: Performed By: #### C BCDF #### [address] [address] Eosinophils (Bld) [#/Vol] 0.21 10*3/uL Normal 0.00 - 0.70 [facility] Comment on above: Performed By: #### C BCDF #### [address] [address] Eosinophils/100 WBC (Bld) 2.9 % Normal 0.0 - 6.0 [facility] Comment on above: Performed By: #### C BCDF #### [address] [address] Erythrocyte distribution width (RBC) [Ratio] 12.7 % Normal 11.5 - 14.5 [facility] Comment on above: Performed By: #### C BCDF #### [address] [address] Hematocrit (Bld) [Volume fraction] 39.5 % Normal 36.0 - 46.0 [facility] Comment on above: Performed By: #### C BCDF #### [address] [address] Hemoglobin (Bld) [Mass/Vol] 13.4 g/dL Normal 12.0 - 16.0 [facility] Comment on above: Performed By: #### C BCDF #### [address] [address] Lymphocytes (Bld) [#/Vol] 3.00 10*3/uL Normal 1.20 - 4.80 [facility] Comment on above: Performed By: #### C BCDF #### [address] [address] Lymphocytes/100 WBC (Bld) 41.3 % Normal 13.0 - 44.0 [facility] Comment on above: Performed By: #### C BCDF #### [address] [address] MCHC (RBC) [Mass/Vol] 33.9 g/dL Normal 32.0 - 36.0 [facility] Comment on above: Performed By: #### C BCDF #### [address] [address] MCV (RBC) [Entitic vol] 88 fL Normal 80 - 100 [facility] Comment on above: Performed By: #### C BCDF #### [address] [address] Monocytes (Bld) [#/Vol] 0.52 10*3/uL Normal 0.10 - 1.00 [facility] Comment on above: Performed By: #### C BCDF #### [address] [address] Monocytes/100 WBC (Bld) 7.2 % Normal 2.0 - 10.0 [facility] Comment on above: Performed By: #### C BCDF #### [address] [address] Neutrophils (Bld) [#/Vol] 3.46 10*3/uL Normal 1.20 - 7.70 [facility] Comment on above: Performed By: #### C BCDF #### [address] [address] Neutrophils/100 WBC (Bld) 47.5 % Normal 40.0 - 80.0 [facility] Comment on above: Performed By: #### C BCDF #### [address] [address] NUCLEATED RBC 0.0 /100 WBC Normal 0.0 - 0.0 [facility] Comment on above: Performed By: #### C BCDF #### [address] [address] Platelets (Bld) [#/Vol] 266 10*3/uL Normal 150 - 450 [facility] Comment on above: Performed By: #### C BCDF #### [address] [address] RBC 4.49 x10E12/L Normal 4.00 - 5.20 [facility] Comment on above: Performed By: #### C BCDF #### [address] [place] [address] WBC (Bld) [#/Vol] 7.3 10*3/uL Normal 4.4 - 11.3 [facility] Comment on above: Performed By: #### C BCDF #### [facility] [address] [place] [address] MAMM DIGITAL SCRN BILATERALo n 02-10-2021 MAMM [...] ARMIJO MD Signed Out: 02/10/21 18:21:51 Normal [facility] Hematologyon 03-20-2019 Hematocrit Volume Fraction (Bld) 40.5 % See Below [facility] HospitalGdeSlonB[facility] dview Work Phone: Comment on above: Reference Range: 36. 0 - 46.0 Hemoglobin mass conc (Bld) 13.3 g/dL See Below [facility]Figo Pet InsuranceB[facility] dview Work Phone: Comment on above: Reference Range: 12. 0 - 16.0 MCV Entitic volume (RBC) 94 fL 80 - 100 [facility]Fig[facility] Pet InsuranceB[facility] dview Work Phone: Platelets #/vol (Bld) 252 {x10E9/L} 150 - 450 [facility] HospitalGdeSlonB[facility] dview Work Phone: RBC #/vol (Bld) 4.33 {x10E12/L} See Below [facility] Laura [facility] CenterporshaBaylor Scott [facility] dvTimeshare Broker Salesw Work Phone: Comment on above: Reference Range: 4.0 0 - 5.20 WBC #/vol (Bld) 0.0 {/100_WBC} 0.0-0.0 [facility] dview Work Phone: WBC #/vol (Bld) 6.6 {x10E9/L} 4.4 - 11.3 [facility] PAYMILLw Work Phone: IO Hgb A1Con 03-20-2019 HbA1c (Bld) [Mass fraction] 7.1 % 4.4-6.4% [facility] a 1056 Work Phone: Lipid Panelon 03-20-2019 Cholesterol in HDL mass conc 35.3 mg/dL Abnormal [facility] a 1057 Work Phone: Comment on above: . AGE VERY LOW LOW N ORMAL HIGH 0-19 Y < 35 < 40 40-45 ---- 20- 24 Y ---- < 40 >45 ---- >24 Y ---- < 40 40-60 >60. Cholesterol in LDL mass conc 86 mg/dL 0 - 99 [facility] a 1057 Work Phone: Comment on above: . NEAR BORD AGE JOHNATHON RABLE OPTIMAL HIGH HIGH VERY HIGH 0-19 Y 0 - 109 --- 110-129 >/= 130 ---- 20-24 Y 0 - 119 --- 120-159 >/= 160 ---- >24 Y 0 - 99 100-129 130-159 160-189 >/=190. Cholesterol mass conc 173 mg/dL 0 - 199 [facility] a 105 Work Phone: Comment on above: [...] Cholesterol non HDL mass conc 138 mg/dL [facility] a 1059 Work Phone: Comment on above: AGE DESIRABLE BORDER LINE HIGH HIGH VERY HIGH 0-19 Y 0 - 119 120 - 144 >/= 145 >/= 160 20-24 Y 0 - 149 150 - 189 >/= 190 ---- >24 Y 30 MG/DL ABOVE LDL CHOLESTEROL GOAL. Cholesterol.total/Ch olesterol in HDL mass ratio 4.9 {ratio} [facility] a 1050 Work Phone: Comment on above: REF VALUESDESIRABLE < 3.4HIGH RISK > 5.0 Triglyceride mass conc 261 mg/dL above high threshold 0 - 149 [facility] a 1056 Work Phone: Comment on above: . AGE [...] mg/dL above high threshold 0 - 40 [facility] a 1057 Work Phone: Metabolic Panelon 03-20-2019 ALP enzyme act/vol 63 U/L 33 - 110 [facility] a 1057 Work Phone: Anion gap molar conc 13 mmol/L 10 - 20 MP-U [facility] a 1057 Work Phone: Bilirubin mass conc 0.4 mg/dL 0.0 - 1.2 [facility] a 1057 Work Phone: Calcium mass conc 9.8 mg/dL 8.6 - 10.6 [facility] a 1057 Work Phone: Chloride molar conc 99 mmol/L 98 - 107 [facility] a 1057 Work Phone: CO2 molar conc 34 mmol/L above high threshold 21 - 32 [facility] a 1057 Work Phone: Creatinine mass conc 0.87 mg/dL See Below -[facility] a 1057 Work Phone: Comment on above: Reference Range: 0.5 0 - 1.05 Glucose mass conc 152 mg/dL above high threshold 74 - 99 [facility] a 1057 Work Phone: Potassium molar conc 3.7 mmol/L 3.5 - 5.3 MP-U [facility]ida[facility] a 1057 Work Phone: Protein mass conc 7.2 g/dL 6.4 - 8.2 [facility] a 1057 Work Phone: Sodium molar conc 142 mmol/L 136 - 145 [facility] a 1057 Work Phone: Urea nitrogen mass conc 18 mg/dL 6 - 23 [facility] a 1057 Work Phone: Otheron 03-20-2019 Albumin Bromocresol purple (BCP) dye binding method mass conc 4.3 g/dL 3.4 - 5.0 [facility] a 1057 Work Phone: ALT With P-5'-P enzyme act/vol 46 U/L above high threshold 7 - 45 [facility] a 1057 Work Phone: Comment on above: Patients treated wit h Sulfasalazine may generate falsely decreased results for ALT. AST With P-5'-P enzyme act/vol 32 U/L 9 - 39 [facility] HospitaljessicaP[facility] a 1057 Work Phone: Erythrocyte distribution width Ratio (RBC) 13.2 % See Below [facility] Janette [facility] dview Work Phone: Comment on above: Reference Range: 11. 5 - 14.5 MCHC mass conc (RBC) 32.8 g/dL See Below -[facility] BulmaroB[facility] dview Work Phone: Comment on above: Reference Range: 32. 0 - 36.0 >60 >60 [facility] a 1057 Work Phone: Comment on above: CALCULATIONS OF LUIS MATED GFR ARE PERFORMED USING THE MDRD STUDY EQUATION FOR THE IDMS-TRACEABLE CREATININE METHODS. CLIN CHEM 2007;53:766-72 T4 - Free Thyroxine, Serumon 03-20-2019 T4 free mass conc 1.08 ng/dL See Below [facility] HospitalalberH[facility] a 7564 Work Phone: Comment on above: Reference Range: 0.7 8 - 1.48 Thyroxine Free testing is performed using different testing methodology at [facility] than at other [facility]. Direct result comparisons should only be made within the same method.. Patients receiving more than 5 mg/day of biotin may have interference in test results. A sample should be taken no sooner than eight hours after previous dose. Contact [phone] for additional information. TSH - Thyroid Stimulating Ho rmone, Serumon 03-20-2019 Thyrotropin Qn 3.22 {mIU/L} See Below [facility] a 7964 Work Phone: Comment on above: Reference Range: 0.4 4 - 3.98 TSH testing is performed using different testing methodology at [facility] than at other [facility]. Direct result comparisons should only be made within the same method.. Patients receiving more than 5 mg/day of biotin may have interference in test results. A sample should be taken no sooner than eight hours after previous dose. Contact [phone] for additional information. Vital Signs Date Time Vital Sign Value Performing Clinician Jorge duong 05-12-2023 09:24-0400 Body height 185.4 cm Pacc 1 Work Phone: [facility] 05-12-2023 09:24-0400 Body temperature 98.2 [degF] Pacc 1 Work Phone: [facility] 05-12-2023 09:24-0400 Body weight 91.17 kg Pacc 1 Work Phone: [facility] 05-12-2023 09:24-0400 Diastolic blood pressure 79 mm[Hg] Pac 1 Work Phone: [facility] 05-12-2023 09:24-0400 Heart rate 75 /min Pacc 1 Work Phone: [facility] 05-12-2023 09:24-0400 Respiratory rate 18 /min Pacc 1 Work Phone: [facility] 05-12-2023 09:24-0400 SaO2% (BldA) [Mass fraction] 95 % Pacc 1 Work Phone: [facility] 05-12-2023 09:24-0400 Systolic blood pressure 136 mm[Hg] Pacc 1 Work Phone: [facility] 05-07-2023 14:25-0400 Diastolic blood pressure 66 mm[Hg] Dana Goyal MD Work Phone: [facility] 05-07-2023 14:25-0400 Heart rate 68 /min Dana Goyal MD Work Phone: [facility] 05-07-2023 14:25-0400 Systolic blood pressure 120 mm[Hg] Dana Goyal MD Work Phone: [facility] 03-20-2019 11:15-0400 BMI (Body Mass Index) 25.46 kg/m2 Collins Savage [facility] Sa tony & rafaele [facility] 1057 Work Phone: 03-20-2019 11:15-0400 Body Temperature 98.7 [degF] Collins Savage [facility] Ely is [facility] 1057 Work Phone: 03-20-2019 11:15-0400 Body weight 87.54 kg Collins Savage [facility] Sarporsha s [facility] 1057 Work Phone: 03-20-2019 11:15-0400 BP Diastolic 84 mm[Hg] Collins Savage [facility] Bulmaro s [facility] Lov[facility] 1057 Work Phone: 03-20-2019 11:15-0400 BP Systolic 126 mm[Hg] Collins Savage [facility] Saridaki s [facility] 1057 Work Phone: 03-20-2019 11:15-0400 BSA (Body Surface Area) 2.12 m2 Collins Chamberlainlake [facility] Saridakis [facility] 1057 Work Phone: 03-20-2019 11:15-0400 Height 185.42 cm Collins Monaejessicaalberlake [facility] Saridaki s [facility] 1057 Work Phone: 03-20-2019 11:15-0400 Pulse (Heart Rate) 71 /min Collins Monaenavin [facility] Escobar akis [facility] 1057 Work Phone: 03-20-2019 11:15-0400 Pulse Oximetry 96 % Collins Monaenavin [facility] Saridaki s [facility] 1057 Work Phone: 03-20-2019 11:15-0400 Respiratory Rate 14 /min Collins Chamberlainlake [facility] Saridak is [facility] 1057 Work Phone: 03-20-2019 11:15-0400 Weight 87.54 kg Collins Chamberlainlake [facility] Saridaki s [facility] 1057 Work Phone: Encounters Encounter Date Encounter Type Care Provider Facility Start: 03-13-2024 End: 03-14-2024 ambulatory COLLINS ANDREWS [facility] Start: 03-09-2024 End: 03-09-2024 ambulatory Zuhair Grubbs Facility:[facility] Start: 03-09-2024 End: 03-09-2024 ambulatory DPM Zuhair Grubbs Work Phone: [facility] Work Phone: Start: 03-09-2024 End: 03-09-2024 Departed Referred DPM Zuhair Grubbs Work Phone: [facility] Start: 02-28-2024 Refill Macario Santos DPM Work Phone: Orthopedics Comment on above: Refill Request Start: 01-25-2024 Refill Macario Armstrongerty DPM Work Phone: Orthopedics Comment on above: Refill Request Start: 01-17-2024 End: 01-17-2024 ambulatory MACARIO SANTOS Facility:[facility] Start: 01-10-2024 Refill Macario Armstrongerty DPM Work Phone: Orthopedics Comment on above: Refill Request Start: 12-29-2023 Refill Macario Armstrongerty DPM Work Phone: Medical Records Comment on above: Refill Request Start: 12-08-2023 Refill Macario Armstrongerty DPM Work Phone: Medical Records Comment on above: Refill Request Start: 11-26-2023 End: 11-27-2023 ambulatory [facility] Start: 11-25-2023 End: 11-25-2023 ambulatory MACARIO SANTOS Facility:[facility] Start: 11-10-2023 End: 11-10-2023 ambulatory [facility] Facility:[facility] Start: 11-03-2023 Encounter for other preprocedural examination WATSON TOM [facility] Start: 11-03-2023 End: 11-03-2023 ambulatory MACARIO SANTOS Facility:[facility] Start: 10-25-2023 Refill Macario Armstrongerty DPM Work Phone: Orthopedics Comment on above: Refill Request Start: 10-25-2023 Refill Macario Armstrongerty DPM Work Phone: Orthopedics Comment on above: Refill Request Start: 10-18-2023 End: 10-19-2023 ambulatory [facility] Facility:[facility] Start: 10-14-2023 End: 10-14-2023 ambulatory WATSONIRENE SANTOS Facility:[facility] Start: 10-11-2023 End: 10-11-2023 ambulatory Nikki Kearney RT(R) Radiology Comment on above: Radiology XR Start: 10-11-2023 Patient encounter procedure Nikki Christel RT(R) [facility] Start: 09-29-2023 Refill Macario Santos DPM Work Phone: Orthopedics Comment on above: Refill Request Start: 09-27-2023 ambulatory Macario Santos DPM Work Phone: Orthopedics Comment on above: Updated X-rays Start: 09-27-2023 E-mail encounter fro m caregiver Macario Santos DPM Work Phone: [facility] Start: 09-06-2023 End: 09-06-2023 ambulatory Gia Kilgore RT(R) Radiology Comment on above: Radiology XR Start: 09-06-2023 End: 09-06-2023 Patient encounter procedure Gia Kilgore RT(R) [facility] Comment on above: Diabetes mellitus du e to underlying condition with diabetic autonomic neuropathy, with long-term current use of insulin (HCC) (Primary Dx); Post-op pain; Charcot ankle, right; Osteonecrosis (HCC) Start: 08-05-2023 End: 08-05-2023 ambulatory Rosie Elizondo RT(R) Radiology Comment on above: Radiology XR Start: 08-05-2023 Patient encounter procedure Rosie Elizondo RT(R) [facility] Start: 07-28-2023 Orders Only Macario Santos DPM Work Phone: [facility] [place] Comment on above: Disease of bone (Rima teena Dx) Start: 07-21-2023 Refill Macario Santos DPM Work Phone: [facility] Adult Comment on above: Refill Request Start: 07-07-2023 Refill Macario Santos DPM Work Phone: Orthopedics Start: 07-02-2023 End: 07-02-2023 ambulatory MACARIO SANTOS Facility:[facility] Start: 07-02-2023 End: 07-02-2023 Patient encounter procedure Macario Santos DPM Work Phone: [facility] Comment on above: Disorder of bone (Pr imary Dx); Charcot ankle, right Start: 07-02-2023 End: 07-02-2023 Subsequent hospital visit by physician Xr [facility] Radiology Comment on above: Charcot ankle, right [M14.671] Start: 06-17-2023 Refill Macario Santos DPM Work Phone: Medical Records Comment on above: Refill Request Start: 06-07-2023 End: 06-07-2023 ambulatory MACARIO SANTOS Facility:[facility] Start: 06-07-2023 End: 06-07-2023 ambulatory MACARIO SANTOS Facility:[facility] Start: 06-04-2023 Refill Macario Santos DPM Work Phone: Orthopedics Start: 06-02-2023 Refill Macario Santos DPM Work Phone: Medical Records Comment on above: Refill Request Start: 05-27-2023 End: 05-27-2023 ambulatory COLLINS ANDREWS Facility:[facility] Start: 05-27-2023 End: 05-27-2023 Patient encounter procedure Cast Tech Fairivew Work Phone: [facility] Comment on above: Charcot ankle, right (Primary Dx) Start: 05-26-2023 ambulatory Macario Santos DPM Work Phone: [facility] Comment on above: Cast is wet Start: 05-23-2023 Telephone encounter Kaylyn amin PRESENTATION TEAM MEMBER.TOUR DIRECTOR Work Phone: [facility] Adult Comment on above: Follow Up Start: 05-19-2023 Telephone encounter Brigette mcdaniel RN [facility] Operating Room Comment on above: Follow Up Start: 05-17-2023 End: 05-18-2023 Evaluation and management of inpatient MACARIO SANTOS Facility:[facility] Start: 05-14-2023 Encounter for preprocedural cardiovascular examination MACARIO SANTOS [facility] Start: 05-14-2023 End: 05-14-2023 ambulatory DANATILA GOYAL Facility:[facility] Start: 05-14-2023 End: 05-14-2023 Patient encounter status Card Injection Molecular Imagi ng Start: 05-14-2023 End: 05-14-2023 Subsequent hospital visit by physician Card Injection Molecular Imaging Comment on above: Preoperative cardiov ascular examination [Z01.810] Start: 05-14-2023 End: 05-14-2023 ambulatory DANA JYOTSNA Facility:[facility] Start: 05-12-2023 End: 05-12-2023 Evaluation and management of inpatient MACARIO ODELL SANTOS Facility:[facility] Start: 05-12-2023 End: 05-12-2023 Admission to [facility] Pacc Harvey 1 Work Phone: [facility] Start: 05-12-2023 End: 05-12-2023 [facility][1] Pacc Harvey 1 Work Phone: Pre Anesthesia Comment on above: Pre-op exam (Primary Dx); Diabetes mellitus type 2 with neurological manifestations (HCC); Former smoker; Intermittent asthma without complication, unspecified asthma severity Start: 05-12-2023 End: 05-12-2023 Preprocedural examination done Pacc Harvey 1 Work Phone: Pre Anesthesia Start: 05-07-2023 End: 05-07-2023 ambulatory DANATILA GOYAL Facility:[facility] Start: 05-07-2023 End: 05-07-2023 Office outpatient new 45 minutes Dana Goyal MD Work Phone: Cardiology Comment on above: PAD (peripheral charity ry disease) (HCC) (Primary Dx); Preoperative cardiovascular examination; Diabetes mellitus type 2 with neurological manifestations (HCC); Former smoker Start: 05-07-2023 End: 05-07-2023 Patient encounter status Dana Goyal MD Work Phone: Cardiology Start: 05-05-2023 Orders Only Macario Zuniga Tom DPM Work Phone: [facility] Comment on above: Osteonecrosis (HCC) (Primary Dx); Charcot ankle, right; Retained orthopedic hardware; Deformity of ankle joint, right Surgical Follow Up Refill Request Start: 05-03-2023 End: 05-03-2023 ambulatory MACARIO SANTOS Facility:[facility] Start: 05-03-2023 End: 05-03-2023 Patient encounter procedure Macario Santos DPM Work Phone: [facility] Comment on above: Osteonecrosis (HCC) (Primary Dx); Charcot ankle, right; Retained orthopedic hardware Start: 04-22-2023 End: 04-22-2023 ambulatory MACARIO SANTOS Facility:[facility] Start: 04-22-2023 End: 04-22-2023 ambulatory MACARIO SANTOS Facility:[facility] Start: 04-22-2023 End: 04-22-2023 Patient encounter procedure Macario Santos DPM Work Phone: Orthopedics Comment on above: Osteonecrosis (HCC) (Primary Dx); Charcot ankle, right Start: 04-20-2023 Orders Only Macario Santos DPM Work Phone: [facility] Comment on above: Charcot's joint of r [...] unspecified ear; Personal history of nicotine dependence; skilled nursing (current) use of 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 drugs Start: 03-17-[address] Fang Rodriguez Facility:[id number] Start: 03-17-2023 Encounter for preprocedural laboratory examination Dr. Fang Rodriguez [facility] Start: 01-08-2023 End: 01-08-[address] Fang Rodriguez Facility:[id number] Start: 01-05-[address] Fang Rodriguez Facility:[id number] Start: 01-05-2023 Encounter for preprocedural cardiovascular examination Dr. Fang Rodriguez [facility] Start: 08-21-2022 End: 08-21-[address] Fang Rodriguez Facility:[id number] Start: 08-13-2022 End: 08-13-[address] Fang Rodriguez Facility:[id number] Start: 08-10-[address] Fang Rodriguez Facility:[id number] Start: 06-05-2022 End: 06-05-[address] Fang Rodriguez Facility:[id number] Start: 06-01-[address] Fang Rodriguez Facility:[id number] Start: 02-04-2021 End: 02-04-2021 Orders Only Fang Fan Work Phone: [facility] [place] Comment on above: Pain (Primary Dx) Start: 02-23-2020 Patient encounter procedure Collins Savage [facility] Janette & [facility] 1059 Work Phone: Start: 11-20-2019 Patient encounter procedure Collins Savage [facility] Janette & [facility] 9154 Work Phone: Start: 08-16-2019 Patient encounter procedure Collins Savage [facility] Work Phone: Start: 06-22-2019 Patient encounter procedure Collins Savage [facility] 1057 Work Phone: Start: 03-20-2019 Patient encounter procedure Collins Savage & [facility] 1057 Work Phone: Start: 01-26-2019 Nursing evaluation o f patient and report Collins Savage [facility] C[facility] 1057 Work Phone: Start: 11-04-2018 Patient encounter procedure [facility] 10[facility] Work Phone: Start: 03-03-2018 Patient encounter procedure Collins [place] [facility] 10[facility] Work Phone: Start: 03-03-2018 Ambulatory Collins Savage [facility] ity:PCG Start: 07-05-2017 Patient encounter procedure Collins Savage [facility] 10[facility] Work Phone: Start: 03-25-2017 Patient encounter procedure [place] [facility] 1057 Work Phone: Encounter for gynecological examination (general) (routine) without abnormal findings Collins [place] [facility] 10[facility] Work [...] Start: 02-23-2020 Comprehensive metabo lic 2000 panel Collnis Savage Start: 02-23-2020 Lipid panel Collins tony [...] 03-19-2025 Screening for malignant neoplasm of colon [facility] Start: 11-26-2024 Hepatitis B surface antibody level LDL Cholesterol [facility] Start: 07-27-2024 Hepatitis B surface antibody level LDL Cholesterol [facility] Start: 07-27-2024 Lipid panel Lipid Panel [facility] Start: 07-27-2024 Thyroid stimulating hormone measurement TSH Level [facility] Start: 07-16-2024 Influenza vaccination Influenz a Vaccine (Season Ended) [facility] Start: 05-26-2024 Hemoglobin A1c measurement HbA1C [facility] Start: 05-07-2024 BP CONTROLLED (<130/80) BP CONTROLLED (<130/80) [facility] Start: 05-04-2024 Hemoglobin A1c measurement HbA1C [facility] Start: 01-25-2024 Hemoglobin A1c measurement HbA1C [facility] Start: 11-15-2023 Behavioral Health Screening Behavioral Health Screening [facility] Start: 11-15-2023 Depression Assessment Depression Ass essment [facility] Start: 10-26-2023 Hemoglobin A1c measurement Diabetes: Hemoglobin A1C [facility] Start: 07-16-2023 Covid-19 Vaccine ( season) Covid-19 Vaccine () [facility] Start: 07-16-2023 [facility] Start: 05-07-2023 End: 06-05-2024 NM CARDIAC PERF STRESS/PHARM NM CARDIAC PERF STRESS/PHARM Radiology Routine Preoperative cardiovascular examination Expected: 05/07/2023, Expires: 06/05/2024 [facility] Work Phone: Comment on above: Expected: 05/07/2023 , Expires: 06/05/2024 Start: 05-07-2023 End: 05-07-2024 [facility] Vascular Lab Routine PAD (peripheral artery disease) (HCC) Expected: 05/07/2023, Expires: 05/07/2024 [facility] Work Phone: Comment on above: Expected: 05/07/2023 , Expires: 05/07/2024 Start: 05-07-2023 End: 05-07-2024 US LEG ARTERIAL PERIPH [facility] US LEG ARTERIAL PERIPH [facility] Vascular Lab Routine PAD (peripheral artery disease) (HCC) Expected: 05/07/2023, Expires: 05/07/2024 [facility] Work Phone: Comment on above: Expected: 05/07/2023 , Expires: 05/07/2024 Start: 11-15-2022 DEPRESSION ASSESSMENT DEPRESSION ASS ESSMENT [facility] Start: 2021 Hepatitis B Vaccine (1 of 3 - Risk 3-dose series) Hepatitis B Vaccine (1 of 3 - Risk 3-dose series) [facility] Start: 2021 RSV Vaccine (1 - 1-dose 60+ series) RSV Vaccine (1 - 1-dose 60+ series) [facility] Start: 07-16-2020 Influenza vaccination INFLUENZA (#1) [facility] Start: 03-25-2020 Screening for malignant neoplasm of [facility] Start: 02-23-2020 [facility] Ilana tavares [facility] 1052 Work Phone: Start: 09-20-2019 Hemoglobin A1c/Hemoglobin.total in Blood HBA1C [facility] Start: 03-20-2019 MG Breast screening Mamm - Scr eening Mammogram w/ Tomosynthesis [facility] 105 Work Phone: Start: 03-20-2019 Xray Bone Dens ity, Dexa 1 or More Sites [facility] 0782 Work Phone: Start: 10-13-2014 HbA1c (Bld) [Mass fraction] HBA1C [facility] Start: 2011 Screening for malignant neoplasm of colon [facility] Start: 2011 SHINGRIX VACCINE (1 of 2) SHINGRIX VACCINE (1 of 2) [facility] Start: 2011 Zoster Vaccines (1 o f 2) Zoster Vaccines (1 of 2) [facility] Start: 2006 COLOGUARD (FIT-DNA) COLOGUARD (FIT-D NA) [facility] Start: 2006 Colonoscopy COLONOSCOPY [facility] Start: 2006 COLORECTAL CANCER SCREENING COLORECTAL CANCER SCREENING [facility] Start: [address] COLONOGRAPHY [facility] Start: 2006 FECAL OCCULT BLOOD FECAL OCCULT BLOO D [facility] Start: 2006 Screening for malignant neoplasm of colon [facility] Start: 2006 SIGMOIDOSCOPY SIGMOIDOSCOPY [facility] Start: 2003 PAP TESTING PAP TESTING [facility] Start: 2001 Mammography [facility] Start: 2001 Screening for malignant neoplasm of breast [facility] Start: 1991 HPV TESTING HPV TESTING [facility] Start: 1991 Screening for malignant neoplasm of cervix HPV Testing [facility] Start: 1983 DTaP/Tdap/Td Vaccine s (1 - Tdap) DTaP/Tdap/Td Vaccines (1 - Tdap) [facility] Start: 1982 PAP TESTING PAP TESTING [facility] Start: 1982 Screening for malignant neoplasm of cervix [facility] Start: 02-08-1980 Urine microalbumin profile [facility] Start: 1979 ANNUAL PCP TEAM CHRONIC DISEASE VISIT ANNUAL PCP TEAM CHRONIC DISEASE VISIT [facility] Start: 1979 BP CONTROLLED (<130/80) BP CONTROLLED (<130/80) [facility] Start: 1979 Hepatitis B surface antibody level LDL CHOLESTEROL [facility] Start: 1979 HEPATITIS C SCREENING HEPATITIS C [facility] Start: 1979 Hepatitis C screening Hepatitis C [facility] Start: 1979 HIV SCREENING HIV SCREENING [facility] Start: 1979 HIV screening HIV Screening [facility] Start: 1979 SPIROMETRY SPIROMETRY [facility] Start: 1977 ONE PNEUMOVAX PRIOR TO AGE 65 ONE PNEUMOVAX PRIOR TO AGE 65 [facility] Start: 1973 Adult depression screening assessment DEPRESSION SCREENING [facility] Start: 1971 [object Object] DIABETIC FOOT EXAM C [facility] Start: 1971 Diabetic foot examination [facility] Start: 1971 Glaucoma screening [facility] Start: 1971 Hepatitis B screening URINE ALBUMIN:CREATININE RATIO [facility] Start: 1971 Hepatitis C antibody , confirmatory test DILATED RETINAL EXAM [facility] Start: 1967 PNEUMOCOCCAL (1 - PCV) PNEUMOCOCCAL (1 - PCV) [facility] Start: 1967 Pneumococcal vaccination [facility] Start: 1967 Pneumococcal Vaccine : Pediatrics (0 to 5 Years) and At-Risk Patients (6 to 64 Years) (1 - PCV) Pneumococcal Vaccine: Pediatrics (0 to 5 Years) and At-Risk Patients (6 to 64 Years) (1 - PCV) [facility] Start: 1962 MMR Vaccines (1 of 1 - Standard series) MMR Vaccines (1 of 1 - Standard series) [facility] Start: 1961 COVID-19 VACCINE (#1) COVID-19 VACCI NE (#1) [facility] Start: 1961 HIV screening HIV Screening [facility] Start: 1961 Screening for malignant neoplasm of colon [facility] Start: 1961 Yearly Adult Physical Yearly Adult P hysical [facility] End: 07-31-2024 MRI ANKLE WO IVCON LEFT MRI ANKLE WO IVCON LEFT Radiology Routine Disorder of bone 1 Occurrences starting 07/02/2023 until 07/31/2024 [facility] Work Phone: Comment on above: 1 Occurrences starti ng 07/02/2023 until 07/31/2024 End: 03-06-2022 Radex ankle complete minimum 3 views XR ANKLE GENERAL 3V AP/LAT/OBL BILAT Radiology Routine Pain 1 Occurrences starting 02/05/2021 until 03/06/2022 [facility] Comment on above: 1 Occurrences starti ng 02/05/2021 until 03/06/2022 End: 03-06-2022 Radex foot complete minimum 3 views XR FOOT GENERAL 3V AP/LAT/OBL RT Radiology Routine Pain 1 Occurrences starting 02/05/2021 until 03/06/2022 [facility] Comment on above: 1 Occurrences starti ng 02/05/2021 until 03/06/2022 End: 07-31-2024 XR ANKLE GENERAL 3V AP/LAT/OBL LEFT XR ANKLE GENERAL 3V AP/LAT/OBL LEFT Radiology Routine Disorder of bone 1 Occurrences starting 07/02/2023 until 07/31/2024 [facility] Work Phone: Comment on above: 1 Occurrences starti ng 07/02/2023 until 07/31/2024 End: 05-19-2024 XR ANKLE GENERAL 3V AP/LAT/OBL RIGHT XR ANKLE GENERAL 3V AP/LAT/OBL RIGHT Radiology Routine Charcot's joint of right ankle 1 Occurrences starting 04/20/2023 until 05/19/2024 [facility] Work Phone: Comment on above: 1 Occurrences starti ng 04/20/2023 until 05/19/2024 End: 07-03-2024 XR ANKLE GENERAL 3V AP/LAT/OBL RIGHT XR ANKLE GENERAL 3V AP/LAT/OBL RIGHT Radiology Routine Charcot ankle, right 1 Occurrences starting 06/04/2023 until 07/03/2024 [facility] Work Phone: Comment on above: 1 Occurrences starti ng 06/04/2023 until 07/03/2024 XR ANKLE GENERAL 3V AP/LAT/OBL RIGHT XR ANKLE GENERAL 3V AP/LAT/OBL RIGHT Radiology Routine Charcot ankle, right 07/02/2023 10:35 AM EDT [facility] Work Phone: End: 08-26-2024 XR ANKLE GENERAL 3V AP/LAT/OBL RIGHT XR ANKLE GENERAL 3V AP/LAT/OBL RIGHT Radiology Routine Disease of bone 1 Occurrences starting 07/28/2023 until 08/26/2024 [facility] Work Phone: Comment on above: 1 Occurrences starti ng 07/28/2023 until 08/26/2024 End: 09-28-2024 XR ANKLE GENERAL 3V AP/LAT/OBL RIGHT XR ANKLE GENERAL 3V AP/LAT/OBL RIGHT Radiology Routine Diabetes mellitus due to underlying condition with diabetic autonomic neuropathy, with long-term current use of insulin (HCC) 1 Occurrences starting 08/30/2023 until 09/28/2024 [facility] Work Phone: Comment on above: 1 Occurrences starti ng 08/30/2023 until 09/28/2024 XR ANKLE GENERAL 3V AP/LAT/OBL RIGHT XR ANKLE GENERAL 3V AP/LAT/OBL RIGHT Radiology Routine Diabetes mellitus due to underlying condition with diabetic autonomic neuropathy, with long-term current use of insulin (HCC) 09/06/2023 1:28 PM EDT [facility] Work Phone: End: 10-05-2024 XR FOOT GENERAL 3V AP/LAT/OBL BILATERAL XR FOOT GENERAL 3V AP/LAT/OBL BILATERAL Radiology Routine Diabetes mellitus due to underlying condition with diabetic autonomic neuropathy, with long-term current use of insulin (HCC) 1 Occurrences starting 09/06/2023 until 10/05/2024 [facility] Work Phone: Comment on above: 1 Occurrences starti ng 09/06/2023 until 10/05/2024 End: 05-19-2024 XR TIBIA FIBULA 2V AP/LAT LEFT XR TIBIA FIBULA 2V AP/LAT LEFT Radiology Routine Leg abscess 1 Occurrences starting 04/20/2023 until 05/19/2024 [facility] Work Phone: Comment on above: 1 Occurrences starti ng 04/20/2023 until 05/19/2024 [facility] Janette [facility] 1057 Work Phone: [facility] NEGATED: Highlighted row has been ruled out! Planned Goals not documented [facility] Vip[facility] 1057 Work Phone: Payers Date Payer Category Payer Self-pay 2021 Unknown 2021 Unknown [id number] 2020 Medicaid MEDICAID [facility] MEDICAID [id number] 2020-Present Medicaid [id number] 2020 Medicaid MEDICAID [facility] MEDICAID [id number] 2020-Present [phone] [address] [place] [address] Medicaid [id number] 2020 Medicaid [id number] 2016 Medicare MEDICARE MEDICAR E A AND B [id number] 2016-Present [place], [place] Medicare [id number] 2016 Medicare MEDICARE MEDICAR E A AND B [id number] 2016-Present [phone] [address] [address] [place] [address] Medicare [id number] 1961 Unknown [id number] 1961 Unknown [id number] 1961 Unknown [id number] 1961 Unknown [id number] 1961 Unknown [id number] 1961 Unknown [id number] 1961 Unknown [id number] 1961 Unknown [id number] 1961 Unknown [id number] 1961 Unknown [id number] 1961 Unknown [id number] Social History Date Type Detail Facility Start: 06-27-2014 End: 05-12-2023 Tobacco smoking status TXIS Former smoker [facility] End: 04-24-2009 History of tobacco use Current smoker [facility] End: 04-24-2009 History of tobacco use Cigarette Smoker [facility] Start: 06-27-2014 End: 05-07-2023 Cigarettes smoked current (pack per day) - Reported [facility] Start: 06-27-2014 End: 11-25-2023 Alcohol intake Current drinker of alcohol (finding) [facility] Start: 1960 Sex Assigned At Not [facility] file [facility] Exposure to SARS-CoV-2 (event) Not sure [facility] Start: 1960 [facility] Assigned At [facility] Start: 05-07-2023 End: 05-17-2023 Tobacco use panel [facility] National Score (1-100), lower number is lower risk 81 [facility] Start: 04-20-2023 Gender identity Identifies as female gender (finding) [facility] Tobacco smoking status TXIS Tobacco smoking consumption unknown [facility] Work Phone: Start: 12-20-2023 Alcohol Comment not on a weekly basi s [facility] NEGATED: Highlighted row - Former smoker MP- ChristaalberАлександр [facility] 1057 Work Phone: Medical Equipment Procedure Code [...] 08-Mar-2014 Active 100 [address] Box Start: 03-08-2014 Pzg-Dn-O-Kind Implant - [id number] Start: 06-29-2011 Comment on above: Description: K-WIRE Mhy-Mq-G-Kind Implant - [id number] Start: 04-24-2014 Comment on above: Description: THREADE D GUIDE WIRE Screw Bn 2.4mm 3 0mm Ti Cmf Lag - [id number] Start: 06-29-2011 Comment on above: Description: OSTEOME D CANNULATED SCREW Screw Bn 4mm 44m m Lcp Ti St - [id number] Start: 04-24-2014 Phantom 2.0 Acti vcor Nil [id number] Start: 05-17-2023 Phantom Nail Crossing Screw 5.0mm X 26mm Length Headed [id number] Start: 05-17-2023 Graft, Flexigraf t, Hamstring, Smi Tendinosus, Frozen Case [id number] Start: 12-09-2021 Comment on above: Description: Convert ed from [facility]. Please see archived information for full log information. Paste Mix Plus, 5cc Case [id number] Start: 06-05-2022 Comment on above: Description: Convert ed from [facility]. Please see archived information for full log information. Bone, Cancellous , Crushed, .1-4mm 15cc, Freeze Dried Case [id number]_[facility] Start: 08-13-2022 Comment on above: Description: Convert ed from [facility]. Please see archived information for full log information. Graft, Flexigraf t, Hamstring, Smi Tendinosus, Frozen Case [id number]_[facility] Start: 08-21-2022 Comment on above: Description: Convert ed from [facility]. Please see archived information for full log information. 22 Mm Concave Re amer Case [id number] Start: 12-09-2021 Comment on above: Description: Convert ed from [facility]. Please see archived information for full log information. Dynaclip Procedu re Pack Case [id number] Start: 06-05-2022 Comment on above: Description: Convert ed from [facility]. Please see archived information for full log information. 2.7 Overdrill Ca se [id number] Start: 08-13-2022 Comment on above: Description: Convert ed from [facility]. Please see archived information for full log information. Quick Whip Stitc h Case [id number] Start: 08-21-2022 Comment on above: Description: Convert ed from [facility]. Please see archived information for full log information. Cement Simplex Gentamicin Bone High Viscosity 20ml Sterile 40gm - [id number] Start: 11-10-2023 Phantom Nail Crossing Screw [...] status health issues are not documented Disease [facility] 105 Work Phone: Mental Status Date Assessment Result Facility NEGATED: Highlighted row Cognitive function [Interpretation] Cognitive status health issues are not documented Disease [facility] 1057 Work Phone: Clinical Notes 05-06-2021 to 11-25-2023 Nikki Kearney, RT(R) - 10/11/2023 12:28 PM Macario Sykes DPM - 09/06/2023 2:17 PM Gia Pinzon, RT(R) - 09/06/2023 1:31 PM EDAugustineRosie, RT(R) - 08/05/2023 2:15 PM EDT Note Date & Type Note Facility 11-25-2023 Note HNO ID: [id number] Author: MACARIO SANTOS DPM Service: ? Author [...] reflux, constipation, diarrhea, (more content not included)... [facility] 11-10-2023 Note HNO ID: [id number] Author: Donell Boateng Service: Pharmacy Author Type: ? Type: Plan of Care Filed: 11/11/2023 10:18 AM Note Text: PHARMACY BEDSIDE DELIVERY SERVICE Patient Name: Marie Sexton The marked outpatient medications were filled at [facility] pharmacy and picked up at the [...] your Primary Care Provider. Donell Boateng PAGER: [phone] November 11, 2023 10:18 AM [facility] 11-10-2023 Note HNO ID: [id number] Author: Olivia Faulkner APRN.FLOOR MECHANIC Service: Anesthesiology Author Type: Nurse Senior Mortgage Loan Processor Type: Anesthesia Procedure Notes Filed: 11/10/2023 1:12 PM Note Text: ANESTHESIOLOGY PROCEDURE NOTE Airway General Information Procedure Start Time/Medication Administration: 11/10/2023 1:06 PM Patient location during procedure: OR Patient identity confirmed: arm band and patient Staffing FLOOR MECHANIC: Olivia Faulkner APRN.FLOOR MECHANIC Performed by: LYDIA Indications and Patient Condition [...] November 10, 2023 TIME: 1:11 PM CSN: [id number] [facility] 11-10-2023 Note HNO ID: [id number] Author: Dheeraj Rodrigues DO Service: Pain Management [...] November 10, 2023 TIME: 1:00 PM CSN: [id number] [facility] 11-10-2023 Note HNO ID: [id number] Author: Dheeraj Rodrigues DO Service: Pain Management [...] November 10, 2023 TIME: 12:57 PM CSN: [id number] [facility] 10-14-2023 Note HNO ID: [id number] Author: Cleo Aragon RT(R) Service: ? Author Type: Cracker Sprayer Type: Progress Notes Filed: 10/14/2023 11:46 AM [...] RT Dev(R) October 14, 2023 11:44 AM [facility] 10-11-2023 Note HNO ID: [id number] Author: Macario Santso DPM Service: ? Author Type: Physician Type: [...] bilateral. Capillary r (more content not included)... [facility] 10-11-2023 Note HNO ID: [id number] Author: Nikki Kearney RT(R) Service: ? Author [...] RT Amelia(R) October 11, 2023 12:28 PM [facility] 10-11-2023 History of Present illness Narrative Radiology [...] 2023 12:28 PM documented in this encounter [facility] 09-06-2023 Note HNO ID: [id number] Author: Macario Santos DPM Service: ? Author [...] as noted below. (more content not included)... [facility] 09-06-2023 Note HNO ID: [id number] Author: Gia Kilgore RT(R) Service: ? Author [...] RT Marivel(R) September 06, 2023 1:31 PM [facility] 09-06-2023 History of Present illness Narrative Images [...] the right foot and ankle as described. Supervisor Chassis Assembly: SUBHASH Transcribe Date/Time: Apr 22 2023 4:18P... Last MRI Ankle - Impression Only MRI ANKLE WO IVCON RT Exam End: 04/29/2021 11:40 AM (Final result) Impression: IMPRESSION: POSTERIOR TIBIALIS TENOSYNOVITIS. 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 ABNORMAL APPEARANCES OF THE SPRING LIGAMENT AND CALCANEOFIBULAR LIGAMENT. FINDINGS SUGGESTIVE OF MILD PLANTAR FASCIITIS. DIABETIC MUSCLE ATROPHY. Supervisor Chassis Assembly: SUBHASH ... Last MRI Foot - Impression [...] which included preparing to see the patient, [id number] patient care, completing clinical documentation, obtaining and/or reviewing separately obtained history, performing a medically appropriate examination, counseling and educating the patient/family/caregiver, and ordering medications, tests, or procedures. documented in this encounter [facility] 09-06-2023 History of Present illness Narrative Radiology [...] 2023 1:31 PM documented in this encounter [facility] 08-05-2023 Note HNO ID: [id number] Author: Macario Santos DPM Service: ? Author [...] Tibial pulses ar (more content not included)... [facility] 08-05-2023 Note HNO ID: [id number] Author: Rosie Elizondo RT(R) Service: ? Author [...] RT Anup(R) August 05, 2023 2:15 PM [facility] 08-05-2023 History of Present illness Narrative Radiology [...] 2023 2:15 PM documented in this encounter [facility] 07-02-2023 Note HNO ID: [id number] Author: Macario Santos DPM Service: ? Author [...] and ROS ob (more content not included)... [facility] 07-02-2023 Note HNO ID: [id number] Author: Omayra Padgett RT(R) Service: ? Author [...] RT Radhames(R) July 02, 2023 10:42 AM [facility] 07-02-2023 History of Present illness Narrative Images [...] the right foot and ankle as described. Supervisor Chassis Assembly: SUBHASH Transcribe Date/Time: Apr 22 2023 4:18P... Last MRI Ankle - Impression Only MRI ANKLE WO IVCON RT Exam End: 04/29/2021 11:40 AM (Final result) Impression: IMPRESSION: POSTERIOR TIBIALIS TENOSYNOVITIS. 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 ABNORMAL APPEARANCES OF THE SPRING LIGAMENT AND CALCANEOFIBULAR LIGAMENT. FINDINGS SUGGESTIVE OF MILD PLANTAR FASCIITIS. DIABETIC MUSCLE ATROPHY. Supervisor Chassis Assembly: SUBHASH ... Last MRI Foot - Impression [...] which included preparing to see the patient, [id number] patient care, completing clinical documentation, obtaining and/or reviewing separately obtained history, performing a medically appropriate examination, counseling and educating the patient/family/caregiver, and ordering medications, tests, or procedures. documented in this encounter [facility] 07-02-2023 History of Present illness Narrative Radiology [...] 2023 10:42 AM documented in this encounter [facility] 07-02-2023 Miscellaneous Notes RADIOLOGY SERVICE PROGRESS NOTE DATE OF SERVICE: July 02, 2023 TIME OF SERVICE: 10:03AM EVENT: ARRIVED IN WHEELCHAIR ADDITIONAL EVENT DETAILS: NA SIGNATURE: Francesca Kaur PATIENT NAME: Marie Sexton DATE: July 02, 2023 TIME: 10:12 AM PAGER/CONTACT #: documented in this encounter [facility] 06-07-2023 Note HNO ID: [id number] Author: Mahendra Prajapati MA Service: ? Author Type: Hospitality Recruiter Type: Progress Notes Filed: 06/07/2023 2:52 PM Note Text: Marie presents today for splint removal. Marie's splint was removed and skin cleansed. Marie tolerated this procedure well. Directed Marie and daughter to xray prior to appt w/ Dr. Santos. Mahendra Prajapati MA Splint was removed by Lorraine Yancey RN [facility] 06-07-2023 Note HNO ID: [id number] Author: Macario Santos DPM Service: ? Author [...] anxiety or eula (more content not included)... [facility] 06-07-2023 Note HNO ID: [id number] Author: Sudha Wadsworth RT(R) Service: ? Author [...] RT Rod(R) June 07, 2023 12:07 PM [facility] 06-03-2023 Miscellaneous Notes Message from [employer]: Refills have been requested for the following medications: oxyCODONE-acetaminophen (PERCOCET) 5-325 mg tablet [Dr. Greg Santos] Preferred pharmacy: [facility] [address] [place], [place] [id number] [id number] Delivery method: Pickup documented in this encounter [facility] 05-27-2023 Note HNO ID: [id number] Author: Regi Cherry Ma Service: ? Author [...] expressed thanks and understanding. Regi Cherry Ma [facility] 05-27-2023 History of Present illness Narrative Patient [...] Regi Cherry Ma documented in this encounter [facility] 05-26-2023 Miscellaneous Notes Contacted patient and scheduled a Cast room appointment on 05/27/2023. Patient calling in stating that her cast is wet and she is trying to dry it with a blow mccann. She is asking what should she do? Please call patient can be reached at [phone] Thank you documented in this encounter [facility] 05-23-2023 Miscellaneous Notes Attempted to call pt to check on status of CADD pump. No answer, left detailed VM. Kaylyn London APRN.GERALDO documented in this encounter [facility] 05-19-2023 Miscellaneous Notes Pt is POD# 2. S/P Right Leg removal of deep hardware Right Ankle fusion Right subtalar joint fusion Fibular osteotomy right ankle [place] of bone marrow autograft right leg with [...] Mara Stallworth RN Acute Pain Management Service [facility] documented in this encounter [facility] 05-18-2023 Note HNO ID: [id number] Author: Giselle Nguyen RN Service: Care Management [...] 18, 2023 TIME: 10:00 AM CONTACT #: [phone] [facility] 05-17-2023 Note HNO ID: [id number] Author: Simin Cervantes RPh Service: Pharmacy Author Type: Pharmacist Type: Plan of Care Filed: 05/17/2023 6:43 PM Note Text: PHARMACY MEDICATION REVIEW Patient Name: Marie Sexton : 1960 The following medications were updated within the FINAL CANOE INSPECTOR medication list: Medications ADDED to FINAL CANOE INSPECTOR medication list Oxycodone-acetaminophen Humalog mix 75-25 Medications CHANGED on FINAL CANOE INSPECTOR medication list Gabapentin Fluoxetine Lantus Levothyroxine Medications REMOVED from FINAL CANOE INSPECTOR medication list Trazodone Hydrocodone-acetaminophen Turmeric (duplicate) Symbicort [...] Yes Completed by: Simin Cervantes PharmD All FINAL CANOE INSPECTOR medications addressed by LIP Patient interested in Bedside Delivery Services or using OP Pharmacy at discharge? Unable to assess Preferred outpatient pharmacy: [facility] [address] [place] [phone] [facility] [phone] Allergies: Codeine GI Upset Demerol [Meperidine* [...] Facility-Administered Medications: None Simin Cervantes RPh 05/17/2023 [facility] 05-17-2023 Note HNO ID: [id number] Author: Francesca Young RN Service: Nursing Author Type: Registered Nurse Type: Nursing Progress Note Filed: 05/17/2023 3:54 PM Note Text: Report to DEMI Jaffe resuming care of patient. [facility] 05-17-2023 Note HNO ID: [id number] Author: Carlos Barbour MD Service: Anesthesiology Author [...] May 17, 2023 TIME: 1:51 PM CSN: [id number] [facility] 05-17-2023 Note HNO ID: [id number] Author: Carlos Barbour MD Service: Anesthesiology Author [...] specimen collected. Minimal or no blood loss Cschtjnu3m/transfer criteria are met upon discharge. SIGNATURE: Carlos Barbour MD PATIENT NAME: Marie Sexton DATE: May 17, 2023 TIME: 1:50 PM CSN: [id number] [facility] 05-17-2023 Note HNO ID: [id number] Author: Ramiro Smith MD Service: Anesthesiology Author [...] May 17, 2023 TIME: 8:19 AM CSN: [id number] [facility] 05-17-2023 Note HNO ID: [id number] Author: Ramiro Smith MD Service: Anesthesiology Author [...] May 17, 2023 TIME: 8:17 AM CSN: [id number] [facility] 05-17-2023 Note HNO ID: [id number] Author: SÁNCHEZ Junior Service: ? Author Type: Commissary Steward Type: Anesthesia Procedure Notes Filed: 05/17/2023 8:16 [...] May 17, 2023 TIME: 8:15 AM CSN: [id number] [facility] 05-17-2023 Note HNO ID: [id number] Author: Brigette Stallworth RN Service: Pain Management Author Type: Registered Nurse Type: Nursing Progress Note Filed: 05/17/2023 7:40 AM Note Text: Patient tolerated procedure very well. Report to primary nurse. [facility] 05-14-2023 Note HNO ID: [id number] Author: RT Myesha(R) Service: Nuclear Medicine Author [...] STATUS: Discontinued PROCEDURE TYPE: NM Stress: 13.1mCi Kj97v-Uctxlin was administered IV for Rest Imaging at 1145 by Juana BUTLERRT(N). 33.3 mCi Ub63v-Tqrxbsd was administered IV for Stress Imaging at 1311 by RT Myesha(R). PATIENT DISCHARGED TO: Ambulatory patient, left NM department area. A Diagnostic radioactive procedure has taken place, with no further precautions necessary other than routine body substance precautions. More information regarding radiation safety can be found using this link: [email or web address] rotection %20-%20Diagnostic%20Nuclear%20Med icine%20Procedures.pdf SIGNATURE: RT Genet(R) PATIENT NAME: April DATE: May 14, 2023 TIME: 11:48 AM PAGER/CONTACT #: [facility] 05-14-2023 Note HNO ID: [id number] Author: Mai Valencia RN Service: Radiology Author [...] ALLERGIES: Reviewed and unchanged MEDICATIONS REVIEWED BY: Product Development Manager PROCEDURE TYPE: NM STRESS: 0.4 mg of [...] safety can be found using this link: [email or web address] rotection %[email or web address]-%20Diagnostic%20Nuclear%20Med icine%20Procedures.pdf SIGNATURE: Mai Valencia RN PATIENT NAME: April DATE: May 14, 2023 TIME: 1:04 PM PAGER/CONTACT #:[phone] [facility] 05-14-2023 History of Present illness Narrative RADIOLOGY [...] STATUS: Discontinued PROCEDURE TYPE: NM Stress: 13.1mCi Yt10q-Crxvgyw was administered IV for Rest Imaging at 1145 by Juana BUTLER,RT(N). 33.3 mCi Aj01s-Emqtcez was administered IV for Stress Imaging at 1311 by RT Myesha(R). PATIENT DISCHARGED TO: Ambulatory patient, left NM department area. A Diagnostic radioactive procedure has taken place, with no further precautions necessary other than routine body substance precautions. More information regarding radiation safety can be found using this link: [email or web address]%20P rotection%20-%20Diagnostic%20Nucl ear%20Medicine%20Procedures.pdf SIGNATURE: Lucero RT Nancy(R) [...] ALLERGIES: Reviewed and unchanged MEDICATIONS REVIEWED BY: Product Development Manager PROCEDURE TYPE: NM STRESS: 0.4 mg of [...] safety can be found using this link: [email or web address]%20P rotection%20-%20Diagnostic%20Nucl ear%20Medicine%20Procedures.pdf SIGNATURE: Mai Valencia RN PATIENT NAME: Marie Kasey Sexton DATE: May 14, 2023 TIME: 1:04 PM PAGER/CONTACT #:[phone] documented in this encounter [facility] 05-12-2023 Instructions Indiana Clemens PA-C - 05/12/2023 9:32 AM EDT PATIENT PREOPERATIVE INSTRUCTIONS Macario Santos* has scheduled you for your procedure at this surgery center: [facility]: [phone] --[address] [address]. Please check in on the 1st floor [...] coffee creamer - NO pulp juices (ex. [place] juice) Is Patient Diabetic:Yes Preoperative Instructions for [...] Procedures: - YOU MUST HAVE A RESPONSIBLE PHARMACISTS TAKE YOU HOME. A VICE PRESIDENT FIXED INCOME OR CHIEF CUSTOMER OFFICER CANNOT BE MADE A RESPONSIBLE PHARMACISTS. - We recommend that a responsible person [...] Advance Directive, please fax a copy to [phone] or email to for it to be [...] Indiana Clemens PA-C documented in this encounter [facility] 05-12-2023 History and physical note HISTORY AND [...] fevers. Neuro: No history of TIA's, stroke, TECHNICAL PUBLICATIONS WRITER tumor, impaired sensorium, hemiplegia, paraplegia or quadraplegia. No neurological symptoms or problems. + peripheral neuropathy Respiratory: No history of current cough or dyspnea, or pneumonia in the past 6 weeks. No history of respiratory/pulmonary symptoms or problems. + former smoker + asthma uses inhalers PRN Cardiovascular: No history of HTN requiring medication, no history of angina, CHF, GA, cardiac surgery or stents. Denies rest pain, gangrene or revascularization/amputation for PVD. No history of cardiovascular symptoms or problems. + swelling foot on HCTZ GI: No history of GI symptoms or problems. No history of esophageal varices, recent ascites, or ETOH greater than 2 drinks per day. : No difficulty urinating, nocturia > 1 time per night or hematuria DISPLAY COORDINATOR: Negative for abnormal vaginal bleeding, abnormal vaginal [...] TIME: 9:19 AM documented in this encounter [facility] 05-07-2023 Note HNO ID: [id number] Author: Dana oGyal MD Service: ? Author Type: Physician Type: Progress Notes Filed: 05/07/2023 3:11 PM Note Text: Heart, Vascular and Thoracic [facility] Natalia Shrestha Department of Cardiovascular Medicine SECTION OF INTERVENTIONAL CARDIOLOGY OUTPATIENT VISIT DATE 05/07/2023 OUTPATIENT VISIT TYPE New PRIMARY CARE PHYSICIAN: Collins Andrews ([facility]) [address] [place], [place] [id number] REFERRING PHYSICIAN: No referring provider defined for [...] (SYMBICORT) 160-4.5 mcg/actuatio (more content not included)... [facility] 05-07-2023 History of Present illness Narrative Images from the original note were not included. Heart, Vascular and Thoracic [facility] Shrestha Department of Cardiovascular Medicine SECTION OF INTERVENTIONAL CARDIOLOGY OUTPATIENT VISIT DATE 05/07/2023 OUTPATIENT VISIT TYPE New PRIMARY CARE PHYSICIAN: Collins Andrews ([facility]) [address] [id number] REFERRING PHYSICIAN: No referring provider defined for [...] of Cardiovascular Medicine Heart, Vascular and Thoracic [facility] Office Office Pager [phone] documented in this encounter [facility] 05-05-2023 Miscellaneous Notes jewelry drill operator spoke to patient with her daughter(Jennifer) regarding 05/17/23 surgery with . [facility] documented in this encounter [facility] 05-03-2023 Note HNO ID: [id number] Author: Macario Santos DPM Service: ? Author [...] are palpable b (more content not included)... [facility] 05-03-2023 History of Present illness Narrative Images [...] the hindfoot and midfoot without complication identified. Supervisor Chassis Assembly: SUBHASH Transcribe Date/Time: Apr 23 2023 4:47P... Last CT Foot - Impression Only No resulted procedures found. Last CT Ankle - Impression Only CT ANKLE WO IVCON RIGHT Exam End: 04/22/2023 3:55 PM (Final result) Impression: IMPRESSION: Intact postoperative changes of the right foot and ankle as described. Supervisor Chassis Assembly: SUBHASH Transcribe Date/Time: Apr 22 2023 4:18P... Last MRI Ankle - Impression Only MRI ANKLE WO IVCON RT Exam End: 04/29/2021 11:40 AM (Final result) Impression: IMPRESSION: POSTERIOR TIBIALIS TENOSYNOVITIS. 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 ABNORMAL APPEARANCES OF THE SPRING LIGAMENT AND CALCANEOFIBULAR LIGAMENT. FINDINGS SUGGESTIVE OF MILD PLANTAR FASCIITIS. DIABETIC MUSCLE ATROPHY. Supervisor Chassis Assembly: SUBHASH ... Last MRI Foot - Impression [...] which included preparing to see the patient, [id number] patient care, completing clinical documentation, obtaining and/or reviewing separately obtained history, performing a medically appropriate examination, counseling and educating the patient/family/caregiver, and ordering medications, tests, or procedures. documented in this encounter [facility] 04-22-2023 Note HNO ID: [id number] Author: RT Moisés(Aristides) Service: ? Author Type: [...] BARRIE Curiel) April 22, 2023 3:56 PM [facility] 04-22-2023 Note HNO ID: [id number] Author: ERIBERTO HebertR) Service: ? Author Type: [...] RT Anup(R) April 22, 2023 2:27 PM [facility] 04-22-2023 Note HNO ID: [id number] Author: Macario Santos DPM Service: ? Author [...] have confirmed an (more content not included)... [facility] 04-22-2023 History of Present illness Narrative Images [...] the hindfoot and midfoot without complication identified. Supervisor Chassis Assembly: SUBHASH Transcribe Date/Time: Apr 23 2023 4:47P... Last CT Foot - Impression Only No resulted procedures found. Last CT Ankle - Impression Only CT ANKLE WO IVCON RIGHT Exam End: 04/22/2023 3:55 PM (Final result) Impression: IMPRESSION: Intact postoperative changes of the right foot and ankle as described. Supervisor Chassis Assembly: PSCB Transcribe Date/Time: Apr 22 2023 4:18P... Last MRI Ankle - Impression Only MRI ANKLE WO IVCON RT Exam End: 04/29/2021 11:40 AM (Final result) Impression: IMPRESSION: POSTERIOR TIBIALIS TENOSYNOVITIS. 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 ABNORMAL APPEARANCES OF THE SPRING LIGAMENT AND CALCANEOFIBULAR LIGAMENT. FINDINGS SUGGESTIVE OF MILD PLANTAR FASCIITIS. DIABETIC MUSCLE ATROPHY. Supervisor Chassis Assembly: SUBHASH ... Last MRI Foot - Impression [...] which included preparing to see the patient, [id number] patient care, completing clinical documentation, obtaining and/or reviewing separately obtained history, performing a medically appropriate examination, counseling and educating the patient/family/caregiver, and ordering medications, tests, or procedures. documented in this encounter [facility] 03-22-2023 Note History & Physical R eviewed: [...] evaluated the patient. I personally obtained the fishre and critical portions of the history and physical exam or was physically present for fisher and critical portions performed by the resident/fellow. I reviewed the resident/fellows documentation and discussed the patient with the resident/fellow. I agree with the resident/fellows medical decision making as documented in the note. I personally evaluated the patient [id number] Electronic Signatures: Sirena Oconnor (DPM (Resident)) (Signed 22-Mar-2023 12:37) Authored: History & Physical Reviewed, ERAS, Consent, Note Completion Fang Rodriguez (DPPawan) (Signed 22-Mar-2023 13:06) Authored: Note Completion Co-Signer: History & Physical Reviewed, ERAS, Consent, Note Completion Last Updated: 22-Mar-2023 13:06 by Fang Rodriguez (FLASH) [facility] 03-22-2023 History and physical note History & [...] Last Updated: 22-Mar-2023 13:06 by Fang Rodriguez) [facility] 03-22-2023 History and physical note History & [...] by Fang Rodriguez) documented in this encounter [facility] Work Phone: 08-21-2022 Note History & Physical [...] the note. I personally evaluated the patient [id number] Electronic Signatures: Darin Myers (FLASH (Resident)) (Signed 21-Aug-2022 11:22) Authored: History & Physical Reviewed, ERAS, Consent, Note Completion Fang Rodriguez) (Signed 21-Aug-2022 12:39) Authored: Note Completion Co-Signer: History & Physical Reviewed, ERAS, Consent, Note Completion Last Updated: 21-Aug-2022 12:39 by Fang Rodriguez) [facility] 08-13-2022 Note History & Physical R eviewed: [...] physical exam or was physically present for ifsher and critical portions performed by the resident/fellow. I reviewed the resident/fellows documentation and discussed the patient with the resident/fellow. I agree with the resident/fellows medical decision making as documented in the note. I personally evaluated the patient [id number] Electronic Signatures: Sirena Oconnor (DPM (Resident)) (Signed 13-Aug-2022 06:59) Authored: History & Physical Reviewed, ERAS, Consent, Note Completion Fang Rodriguez (FLASH) (Signed 13-Aug-2022 07:41) Authored: Note Completion Co-Signer: History & Physical Reviewed, ERAS, Consent, Note Completion Last Updated: 13-Aug-2022 07:41 by Fang Rodriguez (ALYSA) [facility] 06-05-2022 Note History & Physical R eviewed: [...] the note. I personally evaluated the patient [id number] Electronic Signatures: Ly Sheikh (DPM (Resident)) (Signed 05-Jun-2022 06:50) Authored: History & Physical Reviewed, ERAS, Consent, Note Completion Fang Rodriguez (FLASH) (Signed 05-Jun-2022 09:32) Authored: Note Completion Co-Signer: History & Physical Reviewed, ERAS, Consent, Note Completion Last Updated: 05-Jun-2022 09:32 by Fang Rodriguez (FLASH) [facility] 05-06-2021 History of Past i llness Narrative Problem Noted Date Resolved Date Difficulty walking 05/06/2021 05/17/2023 diabetes 05/17/2023 Arthritis 05/17/2023 documented as of this encounter (statuses as of 05/20/2023) [facility] History of Past illness Narrative* Problem Noted Date Diagnosed Date Resolved Date Difficulty walking 05/06/2021 3 diabetes 05/17/2023 Arthritis 05/17/2023 documented as of this encounter (statuses as of 05/23/2023) [facility] of Past illness Narrative* Problem Noted Date Diagnosed Date Resolved Date Difficulty walking 05/06/2021 3 diabetes 05/17/2023 Arthritis 05/17/2023 documented as of this encounter (statuses as of 05/27/2023) [facility] of Past illness Narrative* Problem Noted Date Diagnosed Date Resolved Date Difficulty walking 05/06/2021 3 diabetes 05/17/2023 Arthritis 05/17/2023 documented as of this encounter (statuses as of 05/28/2023) [facility] of Past illness Narrative* Problem Noted Date Diagnosed Date Resolved Date Difficulty walking 05/06/2021 3 diabetes 05/17/2023 Arthritis 05/17/2023 documented as of this encounter (statuses as of 06/03/2023) [facility] of Past illness Narrative* Problem Noted Date Diagnosed Date Resolved Date Difficulty walking 05/06/2021 3 diabetes 05/17/2023 Arthritis 05/17/2023 documented as of this encounter (statuses as of 06/04/2023) [facility] of Past illness Narrative* Problem Noted Date Diagnosed Date Resolved Date Difficulty walking 05/06/2021 3 diabetes 05/17/2023 Arthritis 05/17/2023 documented as of this encounter (statuses as of 06/21/2023) [facility] of [facility] Narrative* Problem Noted Date Diagnosed Date Resolved Date Difficulty walking 05/06/2021 3 diabetes 05/17/2023 Arthritis 05/17/2023 documented as of this encounter (statuses as of 07/03/2023) [facility] of [facility] Narrative* Problem Noted Date Diagnosed Date Resolved Date Difficulty walking 05/06/2021 3 diabetes 05/17/2023 Arthritis 05/17/2023 documented as of this encounter (statuses as of 07/05/2023) [facility] of [facility] Narrative* Problem Noted Date Diagnosed Date Resolved Date Difficulty walking 05/06/2021 3 diabetes 05/17/2023 Arthritis 05/17/2023 documented as of this encounter (statuses as of 07/08/2023) [facility] Narrative* Problem Noted Date Diagnosed Date Resolved Date Difficulty walking 05/06/2021 3 diabetes 05/17/2023 Arthritis 05/17/2023 documented as of this encounter (statuses as of 07/21/2023) [facility] Narrative* Problem Noted Date Diagnosed Date Resolved Date Difficulty walking 05/06/2021 3 diabetes 05/17/2023 Arthritis 05/17/2023 documented as of this encounter (statuses as of 07/28/2023) [facility] Narrative* Problem Noted Date Diagnosed Date Resolved Date Difficulty walking 05/06/2021 3 diabetes 05/17/2023 Arthritis 05/17/2023 documented as of this encounter (statuses as of 08/06/2023) [facility] Narrative* Problem Noted Date Diagnosed Date Resolved Date Difficulty walking 05/06/2021 3 diabetes 05/17/2023 Arthritis 05/17/2023 documented as of this encounter (statuses as of 09/06/2023) [facility] Narrative* Problem Noted Date Diagnosed Date Resolved Date Difficulty walking 05/06/2021 3 diabetes 05/17/2023 Arthritis 05/17/2023 documented as of this encounter (statuses as of 09/07/2023) [facility] Narrative* Problem Noted Date Diagnosed Date Resolved Date Difficulty walking 05/06/2021 3 diabetes 05/17/2023 Arthritis 05/17/2023 documented as of this encounter (statuses as of 09/28/2023) [facility] Narrative* Problem Noted Date Diagnosed Date Resolved Date Difficulty walking 05/06/2021 3 diabetes 05/17/2023 Arthritis 05/17/2023 documented as of this encounter (statuses as of 09/30/2023) [facility] Narrative* Problem Noted Date Diagnosed Date Resolved Date Difficulty walking 05/06/2021 3 diabetes 05/17/2023 Arthritis 05/17/2023 documented as of this encounter (statuses as of 10/11/2023) [facility]* Problem Noted Date Diagnosed Date Resolved Date Difficulty walking 05/06/2021 3 diabetes 05/17/2023 Arthritis 05/17/2023 documented as of this encounter (statuses as of 10/27/2023) [facility]* Problem Noted Date Diagnosed Date Resolved Date Difficulty walking 05/06/2021 3 diabetes 05/17/2023 Arthritis 05/17/2023 documented as of this encounter (statuses as of 10/27/2023) [facility]* Problem Noted Date Diagnosed Date Resolved Date Difficulty walking 05/06/2021 3 Diabetic foot ulcer 12/21/2013 11/03/20 23 diabetes 05/17/2023 Arthritis 05/17/2023 documented as of this encounter (statuses as of 12/17/2023) [facility] Narrative* Problem Noted Date Diagnosed Date Resolved Date Difficulty walking 05/06/2021 3 Diabetic foot ulcer 12/21/2013 11/03/20 23 diabetes 05/17/2023 Arthritis 05/17/2023 documented as of this encounter (statuses as of 12/29/2023) [facility] Narrative* Problem Noted Date Diagnosed Date Resolved Date Difficulty walking 05/06/2021 3 Diabetic foot ulcer 12/21/2013 11/03/20 23 diabetes 05/17/2023 Arthritis 05/17/2023 documented as of this encounter (statuses as of 01/11/2024) [facility] Narrative* Problem Noted Date Diagnosed Date Resolved Date Difficulty walking 05/06/2021 3 Diabetic foot ulcer 12/21/2013 11/03/20 23 diabetes 05/17/2023 Arthritis 05/17/2023 documented as of this encounter (statuses as of 01/27/2024) [facility] Narrative* Problem Noted Date Diagnosed Date Resolved Date Difficulty walking 05/06/2021 3 Diabetic foot ulcer 12/21/2013 11/03/20 23 diabetes 05/17/2023 Arthritis 05/17/2023 documented as of this encounter (statuses as of 03/01/2024) [facility] Charcot's joint of right ankle- [...] ankle joint, right [facility]* Diagnosis Charcot ankle, right- Primary Osteonecrosis (HCC) Aseptic necrosis of bone, site unspecified Charcot ankle, right Retained orthopedic hardware Other postprocedural status Deformity of ankle joint, right [facility]* Diagnosis PAD (peripheral artery disease) (HCC)- [...] ankle joint, right [facility]* Diagnosis Pre-op exam- Primary Preoperative examination, [...] ankle joint, right [facility]* Diagnosis Preoperative cardiovascular examination Pre-operative cardiovascular examination Osteonecrosis (HCC) Aseptic necrosis of bone, site unspecified Charcot ankle, right Retained orthopedic hardware Other postprocedural status Deformity of ankle joint, right [facility]* Diagnosis Charcot ankle, right- Primary [facility] Diagnosis Charcot ankle, right- Primary Arthritis Arthropathy, unspecified, site unspecified [facility]* Diagnosis Charcot ankle, right- Primary [facility]* Diagnosis Charcot ankle, right [facility] Diagnosis Charcot ankle, right [facility]* Diagnosis Disorder of bone- Primary Disorder of bone and cartilage, unspecified Charcot ankle, right [facility] Diagnosis Charcot ankle, right documented in this encounter [facility]* Diagnosis Disease of bone- Primary Disorder of bone and cartilage, unspecified documented in this encounter [facility] note* Diagnosis Diabetes mellitus due to underlying condition with diabetic autonomic neuropathy, with long-term current use of insulin ([facility])- Primary Post-op pain Other acute postoperative pain Charcot ankle, right Osteonecrosis ([facility]) Aseptic necrosis of bone, site unspecified documented in this encounter [facility] note* Diagnosis Post-op pain Other acute postoperative pain documented in this encounter [facility] note* Diagnosis Subluxation of right ankle joint, initial encounter Presence of other specified devices Valgus deformity, not elsewhere classified, right ankle Subluxation of right ankle joint, subsequent encounter Subluxation of left ankle joint, subsequent encounter Hyperlipidemia, unspecified Type 2 diabetes mellitus with diabetic peripheral angiopathy without gangrene ([facility]) Unspecified asthma, uncomplicated Type 2 diabetes mellitus with diabetic polyneuropathy ([facility]) Depression, unspecified Irritable bowel syndrome without diarrhea Hypothyroidism, unspecified Unspecified osteoarthritis, unspecified site Unspecified visual loss Unspecified hearing loss, unspecified ear Personal history of nicotine dependence skilled 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 (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) use of 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 drugs documented in this encounter [facility] Work Phone: Evaluation note* Diagnosis Post-op pain Other acute postoperative pain documented in this encounter [facility] note* Diagnosis Charcot ankle, right documented in this encounter [facility] note* Diagnosis Charcot ankle, right documented in this encounter [facility] note* Diagnosis Charcot ankle, right documented in this encounter [facility] noteNo assessment information [facility] Work Phone: Reason for referral (narrative)* Diagnostic Procedure Only (Routine) - Authorized Specialty Diagnoses / Procedures Referred By Perla lyon Referred To Contact XR IMAGING Diagnoses Leg abscess Procedures XR TIBIA FIBULA 2V AP/LAT LEFT RADIOLOGIC EXAMINATION TIBIA & FIBULA 2 VIEWS Macario Santos DPM [address] [place] [address] Xr Imaging Referral ID Status Reason Start Date Expiration Date Visits Requested Visits Authorized [id number] Authorized Auto-Generat ed Referral 04/20/2023 05/19/2024 1 1 * Diagnostic Procedure Only (Routine) - Authorized Specialty Diagnoses / Procedures Referred By Contac t Referred To Contact XR IMAGING Diagnoses Charcot's joint of right ankle Procedures XR ANKLE GENERAL 3V AP/LAT/OBL RIGHT RADEX ANKLE COMPLETE MINIMUM 3 VIEWS Macario Santos DPM [address] [place] [address] Xr Imaging Referral ID Status Reason Start Date Expiration Date Visits Requested Visits Authorized [id number] Authorized Auto-Generat ed Referral 04/20/2023 05/19/2024 1 1 [place] for referral (narrative)* Diagnostic Procedure Only (Routine) - Authorized Specialty Diagnoses / Procedures Referred By Contac t Referred To Contact MOLECULAR & FUNCTIONAL IMAGING Diagnoses Preoperative cardiovascular examination Procedures NM CARDIAC PERF STRESS/PHARM MYOCARDIAL SPECT MULTIPLE STUDIES Dana Goyal [place] [id number] [place] [id number] [facility] [address] [place] [address] Referral ID Status Reason Start Date Expiration Date Visits Requested Visits Authorized [id number] Authorized Auto-Generat ed Referral 05/07/2023 06/05/2024 1 1 * Outpatient Procedure (Routine) - Authorized Specialty Diagnoses / Procedures Referred By Contac t Referred To Contact [facility] Diagnoses PAD (peripheral artery disease) (HCC) Procedures US LEG ARTERIAL PERIPH [facility] DUP-SCAN LXTR ART/ARTL [place] [address] [place] [address] [facility] [place] [address] [place] [address] Referral ID Status Reason Start Date Expiration Date Visits Requested Visits Authorized [id number] Authorized Auto-Generat ed Referral 05/07/2023 05/06/2024 1 1 * Outpatient Procedure (Routine) - Authorized Specialty Diagnoses / Procedures Referred By Contac t Referred To Contact [facility]ART [facility] [place] Diagnoses PAD (peripheral artery disease) (HCC) Procedures PVR LEG [facility] NON-INVASIVE PHYSIOLOGIC STUDY EXTREMITY 3 [place] [address] [place] [address] [facility] [place] [id number] [place] [address] Referral ID Status Reason Start Date Expiration Date Visits Requested Visits Authorized [id number] Authorized Auto-Generat ed Referral 05/07/2023 05/06/2024 1 1 [place] for referral (narrative)* Diagnostic Procedure Only (Routine) - Closed Specialty Diagnoses / Procedures Referred By Contac t Referred To Contact MOLECULAR & FUNCTIONAL IMAGING Diagnoses Preoperative cardiovascular examination Procedures NM CARDIAC PERF STRESS/PHARM MYOCARDIAL [place] [address] [place] [address] [facility] [address] [place] [address] Referral ID Status Reason Start Date Expiration Date V isits Requested Visits Authorized [id number] Closed Auto-Generate d Referral 05/07/2023 06/05/2024 1 1 [place] for referral (narrative)* Diagnostic Procedure Only (Routine) - Authorized Specialty Diagnoses / Procedures Referred By Contac t Referred To Contact XR IMAGING Diagnoses Charcot ankle, right Procedures XR ANKLE GENERAL 3V AP/LAT/OBL RIGHT RADEX ANKLE COMPLETE MINIMUM 3 VIEWS Macario Santos DPM [address] [place] [address] Xr Imaging Referral ID Status Reason Start Date Expiration Date Visits Requested Visits Authorized [id number] Authorized Auto-Generat ed Referral 06/04/2023 07/03/2024 1 1 [place] for referral (narrative)* Diagnostic Procedure Only (Routine) - Authorized Specialty Diagnoses / Procedures Referred By Contac t Referred To Contact XR IMAGING Diagnoses Disease of bone Procedures XR ANKLE GENERAL 3V AP/LAT/OBL RIGHT RADEX ANKLE COMPLETE MINIMUM 3 VIEWS Macario Santos DPM [address] [place] [address] [place] [address] Referral ID Status Reason Start Date Expiration Date Visits Requested Visits Authorized [id number] Authorized Auto-Generat ed Referral 07/28/2023 08/26/2024 1 1 [place] for referral (narrative)* Diagnostic Procedure Only (Routine) - Pending Review Specialty Diagnoses / Procedures Referred By Contac t Referred To Contact XR IMAGING Diagnoses Diabetes mellitus due to underlying condition with diabetic autonomic neuropathy, with long-term current use of insulin (HCC) Procedures XR FOOT GENERAL 3V AP/LAT/OBL BILATERAL RADEX FOOT COMPLETE MINIMUM 3 VIEWS Macario Santos DPM [address] [place] [address] [place] [address] Referral ID Status Reason Start Date Expiration Date Visits Requested Visits Authorized [id number] Pending Review Auto-Generat ed Referral 10/05/2024 1 1 * Diagnostic Procedure Only (Routine) - Closed Specialty Diagnoses / Procedures Referred By Contac t Referred To Contact XR IMAGING Diagnoses Diabetes mellitus due to underlying condition with diabetic autonomic neuropathy, with long-term current use of insulin (HCC) Procedures XR ANKLE GENERAL 3V AP/LAT/OBL RIGHT RADEX ANKLE COMPLETE MINIMUM 3 VIEWS Macario Santos DPM [address] [place] [address] [place] [address] Referral ID Status Reason Start Date Expiration Date V isits Requested Visits Authorized [id number] Closed Auto-Generate d Referral 08/30/2023 09/28/2024 1 1 [place] for visit Narrative* Diagnostic Procedure Only (Routine) - Closed Specialty Diagnoses / Procedures Referred By Perla lyon Referred To Contact XR IMAGING Diagnoses Charcot ankle, right Procedures XR ANKLE GENERAL 3V AP/LAT/OBL RIGHT RADEX ANKLE COMPLETE MINIMUM 3 VIEWS Macario Santos DPM [address] [place] [id number] Xr Imaging [place] [address] Referral ID Status Reason Start Date Expiration Date V isits Requested Visits Authorized [id number] Closed Auto-Generate d Referral 07/08/2023 07/06/2024 1 1 [facility] Summary Purpose Family History No Family History [...] EXTREMITY W/O CONTRAST MATERIAL Macario Santos DPM [phone] Referral ID Status Reason Start Date Expiration Date V isits Requested Visits Authorized [id number] Closed Auto-Generate d Referral 04/22/2023 05/21/2024 1 1 Specialty Diagnoses / Procedures Referred By Perla lyon Referred To Contact Cardiology Diagnoses Charcot ankle, right Procedures CONSULT TO CARDIOLOGY Macario Santos DPM [address] [place] [address] [place] [address] [place] [address] Referral ID Status Reason Start Date Expiration Date Visits Requested Visits Authorized [id number] Ref Not Required PCP Requested Referral 05/05/2023 05/04/2024 1 1 Specialty Diagnoses / Procedures Referred By Contac t Referred To Contact MR IMAGING Diagnoses Disorder of bone Procedures MRI ANKLE WO IVCON LEFT MRI ANY JT LOWER EXTREM W/O CONTRAST MATRL Macario Santos DPM [address] [place] [phone] Mr Imaging [place] [address] Referral ID Status Reason Start Date Expiration Date Visits Requested Visits Authorized [id number] Authorized Auto-Generat ed Referral 07/02/2023 07/31/2024 1 1 Specialty Diagnoses / Procedures Referred By Contac t Referred To Contact XR IMAGING Diagnoses Disorder of bone Procedures XR ANKLE GENERAL 3V AP/LAT/OBL LEFT RADEX ANKLE COMPLETE MINIMUM 3 VIEWS Macario Santos DPM [address] [place] [address] Xr Imaging [place] [address] Referral ID Status Reason Start Date Expiration Date Visits Requested Visits Authorized [id number] Pending Review Auto-Generat ed Referral 07/02/2023 07/31/2024 1 1 Additional Source Comments INFORMATION SOURCE (unrecogn ized section and content) DATE CREATED AUTHOR 05/05/2018 [facility] DATE CREATED AUTHOR AUTHOR'S ORGANIZ ATION 02/23/2020 [facility] DATE CREATED AUTHOR AUTHOR'S ORGANIZ ATION 02/11/2021 [facility] DATE CREATED AUTHOR AUTHOR'S ORGANIZ ATION 03/29/2023 [facility] DATE CREATED AUTHOR AUTHOR'S ORGANIZ ATION 07/28/2023 [facility] DATE CREATED AUTHOR AUTHOR'S ORGANIZ ATION 12/07/2023 [facility] DATE CREATED AUTHOR AUTHOR'S ORGANIZ ATION 01/18/2024 [facility] DATE CREATED AUTHOR AUTHOR'S ORGANIZ ATION 03/18/2024 [facility] DATE CREATED AUTHOR AUTHOR'S ORGANIZ ATION 03/18/2024 [facility] Source Comments (unrecognize d section and content) In the event this informatio n is protected by the Federal Confidentiality of Alcohol and Drug Abuse Patient Records regulations: The Federal rules restrict any use of the information to criminally investigate or prosecute any alcohol or drug abuse patient.[facility] the event this information is protected by the Federal Confidentiality of Alcohol and Drug Abuse Patient Records regulations: The Federal rules restrict any use of the information to criminally investigate or prosecute any alcohol or drug abuse patient.[facility] the event this information is protected by the Federal Confidentiality of Alcohol and Drug Abuse Patient Records regulations: The Federal rules restrict any use of the information to criminally investigate or prosecute any alcohol or drug abuse patient.[facility] the event this information is protected by the Federal Confidentiality of Alcohol and Drug Abuse Patient Records regulations: The Federal rules restrict any use of the information to criminally investigate or prosecute any alcohol or drug abuse patient.[facility] the event this information is protected by the Federal Confidentiality of Alcohol and Drug Abuse Patient Records regulations: The Federal rules restrict any use of the information to criminally investigate or prosecute any alcohol or drug abuse patient.[facility] the event this information is protected by the Federal Confidentiality of Alcohol and Drug Abuse Patient Records regulations: The Federal rules restrict any use of the information to criminally investigate or prosecute any alcohol or drug abuse patient.[facility] the event this information is protected by the Federal Confidentiality of Alcohol and Drug Abuse Patient Records regulations: The Federal rules restrict any use of the information to criminally investigate or prosecute any alcohol or drug abuse patient.[facility] the event this information is protected by the Federal Confidentiality of Alcohol and Drug Abuse Patient Records regulations: The Federal rules restrict any use of the information to criminally investigate or prosecute any alcohol or drug abuse patient.[facility] the event this information is protected by the Federal Confidentiality of Alcohol and Drug Abuse Patient Records regulations: The Federal rules restrict any use of the information to criminally investigate or prosecute any alcohol or drug abuse patient.[facility] the event this information is protected by the Federal Confidentiality of Alcohol and Drug Abuse Patient Records regulations: The Federal rules restrict any use of the information to criminally investigate or prosecute any alcohol or drug abuse patient.[facility] the event this information is protected by the Federal Confidentiality of Alcohol and Drug Abuse Patient Records regulations: The Federal rules restrict any use of the information to criminally investigate or prosecute any alcohol or drug abuse patient.[facility] the event this information is protected by the Federal Confidentiality of Alcohol and Drug Abuse Patient Records regulations: The Federal rules restrict any use of the information to criminally investigate or prosecute any alcohol or drug abuse patient.[facility] the event this information is protected by the Federal Confidentiality of Alcohol and Drug Abuse Patient Records regulations: The Federal rules restrict any use of the information to criminally investigate or prosecute any alcohol or drug abuse patient.[facility] the event this information is protected by the Federal Confidentiality of Alcohol and Drug Abuse Patient Records regulations: The Federal rules restrict any use of the information to criminally investigate or prosecute any alcohol or drug abuse patient.[facility] Hospital[facility] the event this information is protected by the Federal Confidentiality of Alcohol and Drug Abuse Patient Records regulations: The Federal rules restrict any use of the information to criminally investigate or prosecute any alcohol or drug abuse patient.[facility] the event this information is protected by the Federal Confidentiality of Alcohol and Drug Abuse Patient Records regulations: The Federal rules restrict any use of the information to criminally investigate or prosecute any alcohol or drug abuse patient.[facility] HospitalIn the event this information is protected by the Federal Confidentiality of Alcohol and Drug Abuse Patient Records regulations: The Federal rules restrict any use of the information to criminally investigate or prosecute any alcohol or drug abuse patient.[facility] HospitalIn the event this information is protected by the Federal Confidentiality of Alcohol and Drug Abuse Patient Records regulations: The Federal rules restrict any use of the information to criminally investigate or prosecute any alcohol or drug abuse patient.[facility] HospitalIn the event this information is protected by the Federal Confidentiality of Alcohol and Drug Abuse Patient Records regulations: The Federal rules restrict any use of the information to criminally investigate or prosecute any alcohol or drug abuse patient.[facility] HospitalIn the event this information is protected by the Federal Confidentiality of Alcohol and Drug Abuse Patient Records regulations: The Federal rules restrict any use of the information to criminally investigate or prosecute any alcohol or drug abuse patient.[facility] HospitalIn the event this information is protected by the Federal Confidentiality of Alcohol and Drug Abuse Patient Records regulations: The Federal rules restrict any use of the information to criminally investigate or prosecute any alcohol or drug abuse patient.[facility] HospitalIn the event this information is protected by the Federal Confidentiality of Alcohol and Drug Abuse Patient Records regulations: The Federal rules restrict any use of the information to criminally investigate or prosecute any alcohol or drug abuse patient.[facility] HospitalIn the event this information is protected by the Federal Confidentiality of Alcohol and Drug Abuse Patient Records regulations: The Federal rules restrict any use of the information to criminally investigate or prosecute any alcohol or drug abuse patient.[facility] the event this information is protected by the Federal Confidentiality of Alcohol and Drug Abuse Patient Records regulations: The Federal rules restrict any use of the information to criminally investigate or prosecute any alcohol or drug abuse patient.[facility] HospitalIn the event this information is protected by the Federal Confidentiality of Alcohol and Drug Abuse Patient Records regulations: The Federal rules restrict any use of the information to criminally investigate or prosecute any alcohol or drug abuse patient.[facility] HospitalIn the event this information is protected by the Federal Confidentiality of Alcohol and Drug Abuse Patient Records regulations: The Federal rules restrict any use of the information to criminally investigate or prosecute any alcohol or drug abuse patient.[facility] HospitalIn the event this information is protected by the Federal Confidentiality of Alcohol and Drug Abuse Patient Records regulations: The Federal rules restrict any use of the information to criminally investigate or prosecute any alcohol or drug abuse patient.[facility] HospitalIn the event this information is protected by the Federal Confidentiality of Alcohol and Drug Abuse Patient Records regulations: The Federal rules restrict any use of the information to criminally investigate or prosecute any alcohol or drug abuse patient.[facility] HospitalIn the event this information is protected by the Federal Confidentiality of Alcohol and Drug Abuse Patient Records regulations: The Federal rules restrict any use of the information to criminally investigate or prosecute any alcohol or drug abuse patient.[facility] HospitalIn the event this information is protected by the Federal Confidentiality of Alcohol and Drug Abuse Patient Records regulations: The Federal rules restrict any use of the information to criminally investigate or prosecute any alcohol or drug abuse patient.[facility] HospitalIn the event this information is protected by the Federal Confidentiality of Alcohol and Drug Abuse Patient Records regulations: The Federal rules restrict any use of the information to criminally investigate or prosecute any alcohol or drug abuse patient.[facility] HospitalIn the event this information is protected by the Federal Confidentiality of Alcohol and Drug Abuse Patient Records regulations: The Federal rules restrict any use of the information to criminally investigate or prosecute any alcohol or drug abuse patient.[facility] HospitalIn the event this information is protected by the Federal Confidentiality of Alcohol and Drug Abuse Patient Records regulations: The Federal rules restrict any use of the information to criminally investigate or prosecute any alcohol or drug abuse patient.[facility] HospitalIn the event this information is protected by the Federal Confidentiality of Alcohol and Drug Abuse Patient Records regulations: The Federal rules restrict any use of the information to criminally investigate or prosecute any alcohol or drug abuse patient.[facility] HospitalIn the event this information is protected by the Federal Confidentiality of Alcohol and Drug Abuse Patient Records regulations: The Federal rules restrict any use of the information to criminally investigate or prosecute any alcohol or drug abuse patient.[facility] Care Teams (unrecognized sec tion and content) Facilities Engineer Relationship Specialty Start Date End Date Collins Savage Jr., DO PCP - General Family Medicine 12/21/13 Facilities Engineer Relationship Specialty Start Date End Date Collins Savage Jr., DO PCP - General Family Medicine 12/21/13 Facilities Engineer Relationship Specialty Start Date End Date Collins Savage Jr., DO PCP - General Family Medicine 12/21/13 Facilities Engineer Relationship Specialty Start Date End Date Collins Savage Jr., DO PCP - General Family Medicine 12/21/13 Facilities Engineer Relationship Specialty Start Date End Date Collins Savage Jr., DO PCP - General Family Medicine 12/21/13 Facilities Engineer Relationship Specialty Start Date End Date Collins Savage Jr., DO PCP - General Family Medicine 12/21/13 Facilities Engineer Relationship Specialty Start Date End Date Collins Andrews MD [address] [place] [id number] PCP - General Internal Medicine 05/06/23 Facilities Engineer Relationship Specialty Start Date End Date Collins Andrews MD [address] [place] [id number] PCP - General Internal Medicine 05/06/23 Facilities Engineer Relationship Specialty Start Date End Date Collins Andrews MD [address] [place] [id number] PCP - General Internal Medicine 05/06/23 Facilities Engineer Relationship Specialty Start Date End Date Collins Andrews MD [address] [place] [id number] PCP - General Internal Medicine 05/06/23 Facilities Engineer Relationship Specialty Start Date End Date Collins Andrews MD [address] [place] [address] [id number] PCP - General Internal Medicine 05/06/23 Facilities Engineer Relationship Specialty Start Date End Date Collins Andrews MD [address] [place] [id number] PCP - General Internal Medicine 05/06/23 Facilities Engineer Relationship Specialty Start Date End Date Collins Andrews MD [address] [place] [id number] PCP - General Internal Medicine 05/06/23 Facilities Engineer Relationship Specialty Start Date End Date Collins Andrews MD [address] [place] [address] [id number] PCP - General Internal Medicine 05/06/23 Facilities Engineer Relationship Specialty Start Date End Date Collins Andrews MD [address] [place] [address] [id number] PCP - General Internal Medicine 05/06/23 Facilities Engineer Relationship Specialty Start Date End Date Collins Andrews MD [address] [place] [id number] PCP - General Internal Medicine 05/06/23 Facilities Engineer Relationship Specialty Start Date End Date Collins Andrews MD [address] [place] [id number] PCP - General Internal Medicine 05/06/23 Facilities Engineer Relationship Specialty Start Date End Date Collins Andrews MD [address] [place] [id number] PCP - General Internal Medicine 05/06/23 Facilities Engineer Relationship Specialty Start Date End Date Collins Andrews MD [id number] [place] [id number] PCP - General Internal Medicine 05/06/23 Facilities Engineer Relationship Specialty Start Date End Date Collins Andrews MD [id number] [place] [id number] PCP - General Internal Medicine 05/06/23 Facilities Engineer Relationship Specialty Start Date End Date Collins Andrews MD [address] [place] [id number] PCP - General 02/13/21 Facilities Engineer Relationship Specialty Start Date End Date Collins Andrews MD PCP - General Internal Medicine 05/06/23 Facilities Engineer Relationship Specialty Start Date End Date Collins Andrews MD PCP - General Internal Medicine 05/06/23 Facilities Engineer Relationship Specialty Start Date End Date Collins [...] MYOCARDIAL [place]PECT [place] [id number] [place] [address] Molecular & Functional Imaging [phone] [id number] Referral ID Status Reason Start Date Expiration Date V isits Requested Visits Authorized [id number] Closed Auto-Generate d Referral 05/07/2023 06/05/2024 1 [...] BE BASED ON THE PRIMARY CLINICAL RECORDS. [facility]. provides no warranty or guarantee of the accuracy or completeness of information in this document.
[2024-04-03 06:33] LABS: Basophils Absolute Auto 0.1 10^3/uL (0.0-0.1); Basophils Percent Auto 0.7 % (0.2-2.0); Eosinophils Absolute Auto 0.3 10^3/uL (0.0-0.7); Eosinophils Percent Auto 3.5 % (0.9-7.0); Hemoglobin 13.1 g/dL (12.0-16.0); Immature Granulocytes Abs Auto 0.05 10^3/uL (0.00-0.03); Immature Granulocytes Pct Auto 0.6 % (0.0-0.5); Lymphocytes Absolute Auto 3.2 10^3/uL (1.2-3.8); Lymphocytes Percent Auto 39.6 % (20.5-60.0); Mean Corpuscular HGB Conc 33.6 g/dL (29.9-35.2); Mean Corpuscular Hemoglobin 29.8 pg (26.7-34.0); Mean Corpuscular Volume 88.6 fL (81.0-99.0); Mean Platelet Volume 9.6 fL (9.5-13.5); Monocytes Absolute Auto 0.7 10^3/uL (0.3-0.8); Monocytes Percent Auto 8.5 % (1.7-12.0); Neutrophils Absolute Auto 3.8 10^3/uL (1.4-6.5); Neutrophils Percent Auto 47.1 % (43.0-75.0); Platelet Count 260 10^3/uL (150-450); Red Cell Distribution Width 12.9 % (11.0-15.0)
[2024-04-03] MEDS: LACTATED RINGER'S SOLUTION 1,000 ML 50 ML IV (07:13)
--- NOTE | 2024-04-03 07:37 | PC.NURSE ---
7:18 TIME OUT PERFORMED 722 LOOKING WITH ULTRASOUND AND PICTURE TAKEN, 724 COMLETED POPLITEAL BLOCK 2ND BLOCK WAS STARTED 728 2ND BLOCK PICTURE TAKEN PROCEDURE COMPLETED AT 729
[2024-04-03] MEDS: CEFAZOLIN SODIUM/DEXTROSE,ISO 2 GM/50 ML PIGGYBACK IV ×3 (07:39→23:29)
--- NOTE | 2024-04-03 07:48 | PC.NURSE ---
PRE BLOCK VITALS 146/66, POST BLOCK 134/68 PULSE OX ON 2 LITERS WAS 98%
[2024-04-03] MEDS: CEFAZOLIN SODIUM 1,000 MG VIAL 2000 MG IV (11:28)
--- NOTE | 2024-04-03 11:49 | P.ORON_ITS ---
Brief Operative Note Date of procedure: 04/03/24 Pre-op diagnosis general: Right ankle Charcot, nonunion ankle, retained orthop edic hardware Post-op diagnosis: same as pre-op Procedure: Procedure performed: Excision of right ankle joint nonunion, revision of ankle j oint fusion and removal of retained orthopedic hardware Indications for procedure: Patient underwent ankle and subtalar joint fusion for nonunion at an outside facility which resulted in nonunion and broken hardware. Patient was referred to me for surgical consultation and potential revision. Recent CT scan confirmed nonunion of her ankle joint and Charcot changes of her ankle, hindfoot and midfoot. Clinically she had a rigid valgus deformity. Due to the nonunion I recommended bone biopsy as initial stage which was performed on 03/09/24 which resulted in no evidence of osteomyelitis. I explained to the patient that the biggest concern I have with revision is being able to remove the intramedullary device due to cortical bone growing over the coil on the proximal aspect of the nail as well as the broken calcaneal screws. If we could successfully remove the nail then an alternative nail would replace it however if I am unable to remove the existing nail then we would bone graft the nonunion and place supplemental fixation. I explained that the patient has a limb threatening deformity but fortunately she does not have an existing wound. The goals of the above surgery is to obtain fusion thereby reducing pain and improving function thus salvaging her limb. I explained that even with surgical revision she remains at a high risk for needing additional surgery including major amputation. I explained that due to her medical history including diabetes with peripheral neuropathy as well as history of numerous previous surgery on her feet that she is at high risk for perioperative complication including but not limited to infection, wound healing issues, pain and bleeding, nonunion, delayed union or malunion. I discussed all of these things both in the office as well as in the preoperative holding area. Patient requested that she be discharged home today so she could take care of her 3 dogs however I do not recommend this given the complexity of surgery and that the procedure will likely be lengthy therefore I recommended that she be admitted to the hospitalist after surgery. In addition I would like her to be evaluated by physical therapy for gait training in hopes of preventing a fall postoperatively. She reluctantly agreed and I explained that on average patient's with this sort of procedure required 2-3 nights of hospital stay however we would reevaluate her tomorrow and consider discharge depending on how she does medically as well as with physical therapy and that her pain is controlled prior to discharge. Intraoperative findings: Screws transfixing the intramedullary device and the tibia were well-seated without loosening however the 2 calcaneal screws which were broken or somewhat loose. The nail was unable to be removed due to the retained hardware and likely bone formation around the proximal coil of the nail. Removing the retained calcaneal hardware would require extensive bone removal of the calcaneus which could prevent ability to achieve stable fixation once removed. 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 Clinically there was bony fusion of the subtalar joint and was stable therefore this bone was not debrided. There was also collapse of the talus likely secondary to Charcot. Bone quality was adequate and bled appropriately. Hindfoot valgus did remain as I was unable to correct this due to inability to remove the nail. Procedure in detail: Patient was identified in preoperative holding and correct side and site were marked and consent was obtained. Regional anesthesia was performed by the anesthesia team and once completed the patient was brought back to the operating theater placed on table in supine position and general anesthesia was administered. The operative lower extremity was prepped and draped in the usual sterile fashion. Formal timeout was performed. Utilizing intraoperative fluoroscopy the screws in the calcaneus and tibia were marked as well as the distal aspect of the nail on the plantar heel. Incision was placed on the plantar aspect of the heel and a combination of sharp and blunt dissection gained access to the distal aspect of the nail. There is no end cap on the nail and curettes and osteotomes were used to remove any bony overgrowth from the distal aspect of the nail to allow the nail extraction device to be threaded into the distal aspect of the nail. Then attention was drawn to the tibial cross lock screws and incisions were placed over the heads of the screws. Combination of sharp and blunt dissection gained access to each of the tibial prosthetic screws which were removed with appropriate screwdriver. The screw holes were then curetted until healthy bleeding bone was noted. Then utilizing nail extraction instrumentation the nail was attempted to be removed but was unsuccessful therefore decision was made to remove the calcaneal screws prior to aggressively attempting to remove the nail. A linear posterior heel incision was made sharply and a combination of sharp and blunt dissection gained access to the anterior to posterior calcaneal screws. The distal aspects of the screws remained as noted on intraoperative fluoroscopy. Osteotomes and rongeurs were used to remove a portion of the plantar calcaneus and attempt to retrieve the distal calcaneal sutures which was ultimately unsuccessful. Further attempt to remove the nail was performed for over an hour and was ultimately unsuccessful. Therefore decision was made to leave the intramedullary nail in place, excised the nonunion followed by grafting and supplement existing fixation. The operative foot and ankle were exsanguinated and the tourniquet was then inflated. Incision was placed over the lateral ankle from the distal tib ia/fibula and coursing anteriorly to the calcaneocuboid joint. Combination of sharp and blunt dissection gained access to the ankle joint. Fibrous nonunion was encountered which was excised using osteotomes, curettes and a paddled joint preparation high-speed bur while using copious irrigation to prevent overheating. Fluoroscopy was used to ensure all aspects of the ankle joint were prepared including the posterior and medial aspects. The joint was then aggressively curetted until healthy bleeding bone was noted. Inspection of the field on the subtalar joint demonstrated osseous fusion of the subtalar joint therefore this joint was not debrided. The surgical site was then irrigated with 3 L normal saline on pulse lavage then further joint preparation with osteotomes and mallet were performed using a fish scaling technique. The joint was irrigated again. Due to the retained intramedullary nail I was unable to reduce the patient's valgus however patient did demonstrate a braceable foot & ankle. All surgical sites were irrigated with copious sterile saline then cerament bone void filler was placed into the screw holes left by the previously removed hardware as well as on the plantar calcaneus where a portion of the plantar calcaneus was excised in attempt to remove the distal calcaneal screw. While this was being performed a bone graft mixture was being prepared on the back table which included 5 cc of concelltrate, 5 cc of sparc and Proteios. Once the bone graft mixture was prepared it was packed into the ankle joint and around the visible intramedullary device then additional cerament bone void filler was placed and allowed to harden. Then multiple attempts were made in attempt to place guidewires across the ankle joint which was difficult given the existing/retained hardware. Ultimately, a stab incision was placed over the distal anterior?medial tibia under fluoroscopic guidance and a guidewire was placed under fluoroscopic guidance from the tibia and into the talus and calcaneus. An additional guidewire was placed from the posterior medial tibia utilizing the previously placed incision to remove the tibial cross lock screws. This guidewire also spanned the ankle joint and was placed divergent to the previously placed guidewire. Appropriate length was determined and the guidewires were advanced distally and brought through the skin distally through a percutaneous incision which prevented the guidewires from being removed during the drilling process. While holding the guidewire with a hemostat a cannulated drill was used over each of the guidewires and 6.5 mm partially-threaded Vilex Redemption beams were placed accordingly. A portion of cerament in the plantar heal was removed to prevent any prominence. Surgical sites were irrigated with copious saline then incisions were closed in layers and the tourniquet was deflated with a prompt hyperemic response. A dry sterile dressing consisting of Xeroform, 4 x 4's, ABDs, Kerlix were then applied over the incisions. Cast padding was placed from the forefoot to the popliteal fossa followed by a layer of Yuan wrap's then additional layers of cast padding and a posterior plaster spl int was held in place with Yuan wraps. The foot and ankle were held in a neutral position until splint was dry. Capillary refill was brisk to the toes. Patient tolerated the procedure and anesthesia well was transported to the recovery room with vital signs stable and brisk capillary refill to all digits. Postoperative plan: Patient will be admitted under the hospitalist care Estimated length of stay 1-3 nights Consultation to physical therapy and social work Multimodal pain management, DVT prophylaxis and perioperative antibiotics were ordered Strict nonweightbearing to right lower extremity Elevation above the level of the heart Will follow Implants: Vilex 6.5 mm redemption beams x2 Cerament bone void filler 15 cc in total Bone allograft Sparc, Proteios & ConCelltrate Anesthesia: regional and General-ET Surgeon: Zuhair Grubbs Product Support Specialist: Mahesh Lozada Estimated blood loss (mL): 25 Condition: stable Disposition: PACU
[2024-04-03 12:46] LABS: Glucometer 248 mg/dL (74-106)
--- NOTE | 2024-04-03 12:50 | PC.NURSE ---
1237: toes pink and warm,pt unable to move them had block prior to OR.
--- NOTE | 2024-04-03 12:54 | PC.NURSE ---
1252: pts toes pink and warm.unable to wiggle,had block preop.
--- NOTE | 2024-04-03 12:58 | XR_ITS ---
The [address] [address] Patient Name: BILLY SEXTON MRN: [id number] date: 1960 Sex: F Assigned Patient Location: [facility] Current Patient Location: Accession/Order Number: [id number] Exam Date: 04/03/2024 13:15 Report Date: 04/04/2024 07:58 At the request of: JOJO LARA Procedure: XR ankle RT min 3V PROCEDURE: XR ankle RT min 3V, XR foot RT min 3V HISTORY: Postop x-ray COMPARISON: XR right foot and ankle 03/09/2024 FINDINGS: BONES:Interval removal of 2 calcaneal screws except for the fractured tips. Interval placement of 2 screws fixing the tfavax-flstr-jsbzkaxgm joints. Prior medullary jennifer placement for fusion of the ankle joint and hindfoot; no appreciable fracture or change in alignment. Plate and screws along the plantar surface of arch with chronic fracture of the most distal screw. Prior single screw fusion of the interphalangeal joint of the first toe. Degenerative changes the first metatarsophalangeal joints and suspected prior bunionectomy. Remote fracture and healing of 5th metatarsal. Chronic advanced degenerative changes the midfoot and stable large separate ossification along dorsal margin of the midfoot likely fractured navicular bone. SOFT TISSUES:Mild soft tissue swelling surrounding the foot and ankle. Images were obtained to cast material. EFFUSION:None visible. OTHER: Negative. XR/XR ankle RT min 3V IMPRESSION: 1. Interval surgical changes as detailed above. Electronically authenticated by: JOHN RAUSCH Date: 04/04/2024 07:58
--- NOTE | 2024-04-03 12:58 | XR_ITS ---
The [address] [address] Patient Name: BILLY SEXTON MRN: [id number] date: 1960 Sex: F Assigned Patient Location: [facility] Current Patient Location: Accession/Order Number: [id number] Exam Date: 04/03/2024 13:15 Report Date: 04/04/2024 07:58 At the request of: JOJO LARA Procedure: XR foot RT min 3V PROCEDURE: XR ankle RT min 3V, XR foot RT min 3V HISTORY: Postop x-ray COMPARISON: XR right foot and ankle 03/09/2024 FINDINGS: BONES:Interval removal of 2 calcaneal screws except for the fractured tips. Interval placement of 2 screws fixing the wgwmmg-gtbqa-qgrjahoei joints. Prior medullary jennifer placement for fusion of the ankle joint and hindfoot; no appreciable fracture or change in alignment. Plate and screws along the plantar surface of arch with chronic fracture of the most distal screw. Prior single screw fusion of the interphalangeal joint of the first toe. Degenerative changes the first metatarsophalangeal joints and suspected prior bunionectomy. Remote fracture and healing of 5th metatarsal. Chronic advanced degenerative changes the midfoot and stable large separate ossification along dorsal margin of the midfoot likely fractured navicular bone. SOFT TISSUES:Mild soft tissue swelling surrounding the foot and ankle. Images were obtained to cast material. EFFUSION:None visible. OTHER: Negative. XR/XR foot RT min 3V IMPRESSION: 1. Interval surgical changes as detailed above. Electronically authenticated by: JOHN RAUSCH Date: 04/04/2024 07:58
--- NOTE | 2024-04-03 14:33 | SWNOTE1 ---
SW spoke with physical therapy prior to going in to see pt. Pt did well with crutches for therapy, has had several surgeries and had to be NWB in past. SW met with pt to discuss dc needs. Pt lives at home alone. She has a few steps to get in. Pt has her own crutches and she plans on using them to maintain NWB status. Pt's daughter and grandson live around the corner. They check on her often and assist as needed. Her grandson is 11. Pt has everything on the first floor that she needs. At this time pt has no concerns or needs at discharge. SW to follow as needed. Medicare Outpatient Observation Notice reviewed and discussed with patient. Pt. verbalized understanding and signed the form. Original given to patient and copy placed in patient?s chart.
--- NOTE | 2024-04-03 14:56 | P.PN_ITS ---
Progress Note: Subjective Subjective Interval history: Patient status postsurgical intervention for her podiatric elements. Admitted overnight for hospitalization for pain control I saw patient up on the medical surgical floor, she was resting in bed comfortably, does have some numbness to her thigh which she had not had in the past but otherwise she has no pain currently. Discussed her home sugars and they have been well-controlled with a recent glycohemoglobin of 6.5 Exam Constitutional Vital Signs, click to edit/add: Last Vital Signs Temp 97.7 F 04/03/24 14:33 Pulse 93 H 04/03/24 14:33 Resp 18 04/03/24 14:33 BP 113/67 04/03/24 14:33 Pulse Ox 94 L 04/03/24 14:33 O2 Del Method Nasal Cannula 04/03/24 14:33 O2 Flow Rate 2 04/03/24 14:33 Documenting provider has reviewed patient's vital signs: yes Common normals: no apparent distress Chest Common normals: inspection of chest normal Respiratory Common normals: normal respiratory effort and no retractions Cardio Common normals: regular rate and regular rhythm GI Common normals: Normal to inspection, nondistended, normoactive bowel sounds pre sent Extremity Common normals: abnormal to inspection (large Padded splint on foot) Progress Note: Objective Labs Labs: Short CBC 04/03/24 Range/Units 06:31 WBC 8.0 (4.0-11.0) 10^3/uL Hgb 13.1 (12.0-16.0) g/dL Hct 39.0 (36.0-48.0) % Plt Count 260 (150-450) 10^3/uL Progress Note: A&P Assessment and Plan (1) 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 This is been surgery #8 according to the patient. Patient admitted overnight for pain control. Currently nerve block in place. Likely to be worn off in AM. NIDDM-continue with home medications. She has excellent sugar control at home. Accu-Cheks with insulin sliding scale while here. Admission status: Patient completed surgery today. She is highly motivated for returning home tomorrow. Medically necessary treatment will only span [address] patient in observation bed. If her medically necessary treatment requires a 2 midnight stay, we will change her to inpatient status Urinary Catheter Management Urinary Catheter Management Urethral: Cath placed during this visit: no : Cath placed during this visit: no
[2024-04-03] MEDS: 0.9 % SODIUM CHLORIDE 250 ML 10 ML IV (15:48)
[2024-04-03] MEDS: INSULIN ASPART 300 UNIT/3 ML PEN SUBQ ×2 (15:57→22:31)
[2024-04-03] MEDS: ENOXAPARIN SODIUM 40 MG/0.4 ML SYRINGE SUBQ (16:28)
[2024-04-03] MEDS: OXYCODONE HCL/ACETAMINOPHEN 5MG/325MG 1 TAB PO (22:31)
[2024-04-03] MEDS: PREGABALIN 75 MG CAPSULE PO (22:31)
[2024-04-03] MEDS: KETOROLAC TROMETHAMINE 30 MG/ML VIAL 15 MG IVP (23:47)
[2024-04-04] VITALS (10 sets, daily range): BP systolic 128–145; BP diastolic 57–85; PULSE 63–89; TEMP 36.6–37; O2SAT 93–97
[2024-04-04] MEDS: HYDROMORPHONE HCL 0.5 MG/0.5 ML SYRINGE IV (02:14)
[2024-04-04 05:00] LABS: Basophils Percent Auto 0.2 % (0.2-2.0); Eosinophils Percent Auto 0.1 % (0.9-7.0); Hematocrit 33.9 % (36.0-48.0); Hemoglobin 11.7 g/dL (12.0-16.0); Immature Granulocytes Abs Auto 0.07 10^3/uL (0.00-0.03); Immature Granulocytes Pct Auto 0.7 % (0.0-0.5); Lymphocytes Absolute Auto 1.3 10^3/uL (1.2-3.8); Lymphocytes Percent Auto 12.1 % (20.5-60.0); Mean Corpuscular HGB Conc 34.5 g/dL (29.9-35.2); Mean Corpuscular Hemoglobin 30.2 pg (26.7-34.0); Mean Corpuscular Volume 87.4 fL (81.0-99.0); Mean Platelet Volume 10.2 fL (9.5-13.5); Monocytes Absolute Auto 1.1 10^3/uL (0.3-0.8); Monocytes Percent Auto 10.4 % (1.7-12.0); Neutrophils Percent Auto 76.5 % (43.0-75.0); Platelet Count 240 10^3/uL (150-450); Red Blood Count 3.88 10^6/uL (4.20-5.40); Red Cell Distribution Width 12.8 % (11.0-15.0); White Blood Count 10.4 10^3/uL (4.0-11.0)
[2024-04-04 05:07] LABS: Anion Gap 11.4; BUN Creatinine Ratio 25.5; Calcium 9.5 mg/dL (8.5-10.1); Carbon Dioxide 27.6 mmol/L (21.0-32.0); Chloride 103 mmol/L (98-107); Estimated GFR (African America >60 (>=60); Estimated GFR (Non-African Ame 55 (>=60); Glucose 194 mg/dL (74-106); Sodium 138 mmol/L (136-145)
--- OUTSIDE RECORDS SUMMARY | 2024-04-04 06:22 | XMS_ITS | CCD ---
Author Organization [facility] CliniSyin Care Team Providers Care Boss Miner Name Role Phone Collins Savage Unavailable Unavailable Janette, Collins Unavailable Unavailable Kira Bennett Unavailable Unavailable SarCollins holden Unavailable Unavailable SarCollins holden E Unavailable Unavailable Janette, Collins Unavailable Unavailable Aron Chan Unavailable Unavailable SarCollins holdenuel Unavailable Unava ilable Janette Collins E Primary Care Provider Jennifer, Dr. Fang Santos Attending U navailable Razzante, Dr. Fang Santos Referring U navailable Debs, Dr. Collins Orellana Primary Care Unavaila ble Razzante, Dr. Fang Santos Admitting U navailable Razzante, Dr. Fang Santos Attending U navailable Jennifer, Dr. Fang Santos Referring U navailable Debs, [...] Razzantsahara, Dr. Fang Santos Attending U navailable Jennifer, Dr. Fang Snatos Referring U navailable Debs, Dr. Collins Orellana [...] DO, Collins Fernandez Primary Care Provid er Juliana CRUMP, Collins Fernandez Primary Care Provider Juliana CRUMP, Collins Fernandez Primary Care Provider MACARIO SANTOS Attending Unava ilCOLLINS Strong JR E Primary Care Unavaila ble RAZZARUDY, FANG SANTOS Referring Unava ilable CLODONG, MACARIO ZUNIGA Referring Unava ilable COLLINS SAVAGE JR Primary Care Unavaila ble DANA GOYAL Attending Unavailable DEBS, COLLINS E Primary Care Unavailable CLOJEANNAERTY, MACARIO MARIAR Referring Unava ilable DEBS, COLLINS E Primary Care Unavailable CLOJEANNAERTY, MACARIO ZUNIGA Referring Unava ilable DEBS, COLLINS E Primary Care Unavailable ANA LILIA, MACARIO MARIAR Referring Unava ilable DEBS, COLLINS E Primary Care Unavailable CLOEJANNAERTY, MACARIO ZUNIGA Referring Unava ilable COLLINS SAVAGE JR E Primary Care Unavaila ble MACARIO SANTOSR Referring Unava ilable DEBS, COLLINS E Primary Care Unavailable WILIAM DANIELS Referring Unavailable DEBS, COLLINS E Primary Care Unavailable CLOUGHERTY, MACARIO MARIAR Referring Unava ilable DEBS, COLLINS E Primary Care Unavailable ANA LILIA, MACARIO MARIAR Referring Unava ilable CLOUGHERTY, MACARIO MARIAR Attending Unava ilable LAURIES, COLLINS E Primary Care Unavailable CLOMACARIO CARROLLR Referring Unava ilable DEBS, COLLINS E Primary Care Unavailable CLODONG, MACARIO MARIAR Referring Unava ilable CLOMACARIO CARROLL Attending Unava ilable DEBS, COLLINS E Primary Care Unavailable GYOAL, DANA Referring Unavailable DEBS, COLLINS E Primary Care Unavailable GOYAL, DANA Referring Unavailable DEBS, COLLINS E Primary Care Unavailable CLOUGHERTYMACARIOR Attending Unava ilable CLOMACARIO CARROLLR Referring Unava ilable DEBS, COLLINS E Primary Care Unavailable GOYAL, DANA Referring Unavailable DEBS, COLLINS E Primary Care Unavailable GOYAL, DANA Referring Unavailable DEBS, COLLINS E Primary Care Unavailable CLOJEANNAERTY, MACARIO MARIAR Attending Unava ilable MACARIO SANTOSR Referring Unava ilable DEBS, COLLINS E Primary Care Unavailable CLOUGHERTY, MACARIO MARIAR Referring Unava ilable DEBS, COLLINS E Primary Care Unavailable CLOUGHERTY, MACARIO MARIAR Referring Unava ilable DEBS, COLLINS E Primary Care Unavailable CLOJEANNAERTY, MACARIO MARIAR Attending Unava ilable DEBLake, COLLINS E Primary Care Unavailable Lauries Collins CRUMP Primary Care Provider [phone] MACARIO SANTOS Attending Unava ilable CLOJEANNAERTYMACARIOR Admitting Unava ilable COLLINS SAVAGE JR Primary Care Unavaila ble MANAS [employer] Unavailable DEBS, COLLINS E Primary Care Unavailable CLOUGHERTY, MACARIO MARIAR Referring Unava ilable CLOUGHERTY, MACARIO MARIAR Attending Unava ilable JULIANA, COLLINS E Primary Care Unavailable DEBS, COLLINS E Primary Care Unavailable CLOMACARIO CARROLL Attending Unava ilable MACARIO SANTOSR Referring Unava ilable COLLINS SAVAGE JR E Primary Care Unavaila ble CLOMACARIO CARROLLR Referring Unava ilable CLOUGHERTY, MACARIO MARIAR Attending Unava ilable JULIANA, COLLINS E Primary Care Unavailable DEBS, COLLINS E Primary Care Unavailable CLOUGHERTY, MACARIO MARIAR Referring Unava ilable ANA LILIA, MACARIO MAIRAR Attending Unava ilable LAURIES, COLLINS E Primary Care Unavailable CLOUGHERTY, MACARIO MARIAR Admitting Unava ilable SAFIAUGHERTY, SORTO EFRAIN Attending Unava ilFLASH Walters Attending Provider COLLINS ANDREWS E Primary Care Unavailable LAURIES, COLLINS E Primary Care Unavailable Zuhair Grubbs Admitting Unavailable Zuhair Grubbs Attending Unavailable Allergies Allergy Classification Reported Allergen(s) Allergy Type Date of Onset Reaction(s) Facility (20 sources) Codeine Drug Allergy 8 GI Upset [facility] 1057 Work Phone: (9 sources) Meperidine Drug Allergy [facility] 1057 Work Phone: (20 sources) Meperidine; Translations: [MEPERIDINE (PF)] Drug Allergy 8 Other: See Comments [facility] (20 sources) Morphine; Translations: [MORPHINE] Drug Allergy 1 Itching [facility] (13 sources) Amoxicillin / Clavulanate; Translations: [AMOXICILLIN-PO T CLAVULANATE] Drug Allergy 3 GI Upset [facility] (13 sources) Doxycycline; Translations: [DOXYCYCLINE] Drug Allergy 3 GI Upset [facility] (2 sources) Codeine; Translations: [CODEINE] Drug Allergy 8 [facility] Repository (1 source) ALLERGIES NOT ON FILE; Translations: [ALLERGIES NOT ON FILE] Propensity to adverse reactions (disorder) [facility] Medications Current Medications Medication Drug Class(es) [...] Start: 04-24-2014 HYDROCODONE-ACETA MINOPHEN 7.5-300 mg tab [id number] 200 actuat albuterol 0.09 mg/actuat metered dose inhaler (20 sources) beta2-Adrenergic Agonist Start: 09-13-2023 take 1-2 puff(s) by mouth every four hours as needed albuterol HFA (PROVENTIL HFA, VENTOLIN HFA) 90 mcg/actuation inhaler inhale 1 to 2 puffs by mouth every 4 hours as needed 0 09/13/2023 Active Start: 02-22-2015 take 2 puff(s) by mo [facility] four times daily as needed Ventolin HFA [...] capsule (14 sources) Cephalosporin Antibacterial Start: 04-24-20 14 End: 05-12-20 take 1 capsule by mouth three times daily cephALEXin 500 mg capsule Take 1 capsule by mouth three times daily. 21 capsule 0 04/24/2014 05/12/2023 Discontinued Comment on above: Take 1 capsule by mo [facility] three times daily. cholecalciferol 0.025 mg oral [...] Comment on above: Take 2,000 mg by [facility] twice daily. cyclobenzaprine hydrochloride 10 mg [...] daily. 0 07/05/2017 Active Start: 07-05-2017 FLUoxetine (NC OZAC) 40 mg capsule Take by mouth. [...] 05/07/2023 Discontinued (Course of therapy completed) Start: 10-25-2013 MELOXICAM 15 m g tablet Comment on [...] daily with meals. omega-3 acid ethyl esters (alf) 1000 mg oral capsule (20 sources) omega-3 [...] tablet (10 sources) Serotonin Reuptake Inhibitor Start: 4 take 1 tablet by mouth once daily at bedtime TRAZODONE 50 mg tablet Take 50 mg by mouth daily at bedtime. 0 12/14/2013 Active Comment on above: Take 50 mg by mouth daily at bedtime. turmeric extract 500 mg oral capsule (20 sources) TURMERIC ORAL Ta ke 500 mg by mouth. 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 drugs; Translations: [[facility] (current) use of 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 drugs] Onset: 03-22-2023 Episodic Other aftercare (2 sources) [facility] (current) use of insulin; Translations: [[facility] (current) use of insulin] Onset: 03-17-2023 Episodic Other aftercare (1 source) Other [facility] (current) drug therapy; Translations: [Other director long term care (current) drug therapy] Onset: 03-17-2023 Episodic Other aftercare (1 source) Long-term current use of 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 medication; Translations: [[facility] (current) use of 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 drugs] 03-29-2023 [...] BCP dye [Mass/Vol] 4.7 g/dL Normal 3.4-5.0 [facility] Comment on above: Performed By: #### 2 4323-8 #### ADAM CALDERON ([id number]) [facility] ([facility]) [employer] [place] [address] ALP [Catalytic activity/Vol] 59 U/L Normal 33-136 [facility] Comment on above: Performed By: #### 2 4323-8 #### ADAM CALDERON ([id number]) [facility] ([facility]) [address] [place] [address] ALT With P-5'-P [Catalytic activity/Vol] 23 U/L Normal 7-45 [facility] Comment on above: Result Comment: Shaista ents treated with Sulfasalazine may generate falsely decreased results for ALT. Performed By: #### 2 4323-8 #### ADAM CALDERON ([id number]) [facility] ([facility]) [address] [place] [address] Anion gap [Moles/Vol] 17 mmol/L Normal 10-20 [facility] Comment on above: Performed By: #### 2 4323-8 #### ADAM CALDERON ([id number]) [facility] ([facility]) [address] [place] [address] AST With P-5'-P [Catalytic activity/Vol] 16 U/L Normal 9-39 [facility] Comment on above: Performed By: #### 2 4323-8 #### ADAM CALDERON ([id number]) [facility] ([facility]) [address] [place] [address] Bilirubin [Mass/Vol] 0.3 mg/dL Normal 0.0-1.2 [facility] Comment on above: Performed By: #### 2 4323-8 #### ADAM CALDERON ([id number]) [facility] ([facility]) [address] [place] [address] Calcium [Mass/Vol] 10.8 mg/dL High 8.6-10.3 [facility] Comment on above: Performed By: #### 2 4323-8 #### ADAM CALDERON ([id number]) [facility]) [address] [place] [address] Chloride [Moles/Vol] 101 mmol/L Normal 98-107 [facility] Comment on above: Performed By: #### 2 4323-8 #### ADAM CALDERON ([id number]) [facility]) [address] [place] [address] CO2 [Moles/Vol] 25 mmol/L Normal 21-32 [facility] Comment on above: Performed By: #### 2 4323-8 #### ADAM CALDERON ([id number]) [facility] ([facility]) [address] [place] [address] Creatinine [Mass/Vol] 1.09 mg/dL High 0.50-1.05 [facility] Comment on above: Performed By: #### 2 4323-8 #### ADAM CALDERON ([id number]) [facility]) [address] [place] [address] Glomerular filtration rate/1.73 sq M.predicted 57 mL/min/1.73m*2 Low >60 [facility] Comment on above: Result Comment: Calc ulations of estimated GFR are performed using the 2020 CKD-EPI Study Refit equation without the race variable for the IDMS-Traceable creatinine methods. https://jasn.asnjournals.org/content/early/ASN.1531040 988 Performed By: #### 2 4323-8 #### ADAM CALDERON ([id number]) [facility] ([facility]) [address] [place] [address] Glucose [Mass/Vol] 178 mg/dL High 74-99 [facility] Comment on above: Performed By: #### 2 4323-8 #### ADAM CALDERON ([id number]) [facility] ([facility]) [address] [place] [address] Potassium [Moles/Vol] 4.7 mmol/L Normal 3.5-5.3 [facility] Comment on above: Performed By: #### 2 4323-8 #### ADAM CALDERON ([id number]) [facility]) [address] [place] [address] Protein [Mass/Vol] 7.4 g/dL Normal 6.4-8.2 [facility] Comment on above: Performed By: #### 2 4323-8 #### ADAM CALDERON ([id number]) [facility] ([facility]) [address] [place] [address] Sodium [Moles/Vol] 138 mmol/L Normal 136-145 [facility] Comment on above: Performed By: #### 2 4323-8 #### ADAM CALDERON ([id number]) [facility] ([facility]) [address] [place] [address] Urea nitrogen [Mass/Vol] 21 mg/dL Normal 6-23 [facility] Comment on above: Performed By: #### 2 4323-8 #### ADAM CALDERON ([id number]) [facility] ([facility]) [address] [place] [address] HbA1c (Bld) [Mass fraction]o n 03-13-2024 Average glucose Estimated from glycated hemoglobin (Bld) [Mass/Vol] 148 mg/dL Normal Not Established [facility] Comment on above: Order Comment: Diagn osis of Diabetes-Adults Non-Diabetic: < or = 5.6% Increased risk for developing diabetes: 5.7-6.4% Diagnostic of diabetes: > or = 6.5% Monitoring of Diabetes Age (y)....................... Therapeutic Goal (%) Adults: >18.........................<7.0 Pediatrics: 13-18...................<7.5 Pediatrics: 7-12....................<8.0 Pediatrics: 0-6..................... 7.5-8.5 [employer]. Diabetes Care 33(S1)Nov 2009 Performed By: #### 4 548-4 #### ADAM CALDERON ([id number]) [facility] ([facility]) [address] [place] [address] Hemoglobin A1c/Hemoglobin.to milan 03-13-2024 HbA1c (Bld) [Mass fraction] 6.8 % High see below [facility] Comment on above: Order Comment: Diagn osis of Diabetes-Adults Non-Diabetic: < or = 5.6% Increased risk for developing diabetes: 5.7-6.4% Diagnostic of diabetes: > or = 6.5% Monitoring of Diabetes Age (y)....................... Therapeutic Goal (%) Adults: >18.........................<7.0 Pediatrics: 13-18...................<7.5 Pediatrics: 7-12....................<8.0 Pediatrics: 0-6..................... 7.5-8.5 [employer]. Diabetes Care 33(S1), Nov 2009 Performed By: #### 4 548-4 #### ADAM CALDERON ([id number]) [facility] ([facility]) [address] [place] [address] Thyrotropinon 03-13-2024 TSH Qn 0.79 m[IU]/L Normal 0.44-3.98 [facility] Comment on above: Order Comment: TSH t esting is performed using different testing methodology at [facility] than at other [facility]. Direct result comparisons should only be made within the same method. Performed By: #### 3 016-3 #### ADAM CALDERON ([id number]) [facility] ([facility]) [address] [place] [address] Edwin 03-09-2024 L Specimen: [id number] Received: 03/09/24 Status: [facility] Num: [id number] Spec Type: Surgical Subm Dr: Zuhair Grubbs,DPM, MS Tissues: A Bone Biopsy/Currettings (BX RT TIBIA BONE) B Bone Biopsy/Currettings (RT TALUS BONE BX) C Bone Biopsy/Currettings (BX RT CALCANEOUS BONE) Procedures: HE/6, Gross/Micro L5/3, Decalcification/3 Age/ Patient Sex Location Account Attending Physician Darshan LABELL [id number] Zuhair Grubbs DPM, MS SPEC NUM: [id number] RECD: 03/09/24 STATUS: KADIE LEESaulo NUM: [id number] TATIANNA: 03/09/[address] [facility] [address]: Zuhair Grubbs DPM, MS ENTERED: 03/09/24 [facility] DR: Orestes,Lab SPEC TYPE: Surgical DEPT: ATA [...] cm, entirely submitted in A1 following Specimen: [id number] Received: 03/09/24 Status: KADIE Leesaulo Num: [id number] Spec Type: Surgical Subm Dr: Zuhair Grubbs DPM, MS Tissues: A Bone Biopsy/Currettings (BX RT TIBIA BONE) B Bone Biopsy/Currettings (RT TALUS BONE BX) C Bone Biopsy/Currettings (BX RT CALCANEOUS BONE) Procedures: HE/6, Gross/Micro L5/3, Decalcification/3 Patient: Darshan,Marie [id number] (Continued) Specimen: [id number] Received: 03/09/24 (Continued) Gross Description (Continued) Signed (signature on file) Darci Castro MD 03/13/24 1653 Specimen: [id number] Received: 03/09/24 Status: KADIE Cao Num: [id number] Spec Type: Surgical Subm Dr: Zuhair Grubbs,FLASH, MS Tissues: A Bone Biopsy/Currettings (BX RT TIBIA BONE) B Bone Biopsy/Currettings (RT TALUS BONE BX) C Bone Biopsy/Currettings (BX RT CALCANEOUS BONE) Procedures: HE/6, Gross/Micro L5/3, Decalcification/3 Patient: DarshanMarie [id number] (Continued) Specimen: [id number] Received: 03/09/24 (Continued) Gross Description (Continued) decalcification. [...] joint right ankle and foot CPT Codes 41480b4, 40548b2 Specimen: [id number] Received: 03/09/24 Status: SOUT Req Num: [id number] Spec Type: Surgical Subm Dr: Zuhair Grubbs,FLASH, MS Tissues: A Bone Biopsy/Currettings (BX RT TIBIA BONE) B Bone Biopsy/Currettings (RT TALUS BONE BX) C Bone Biopsy/Currettings (BX RT CALCANEOUS BONE) Procedures: HE/6, Gross/Micro L5/3, Decalcification/3 Patient: Darshan,April [id number] (Continued) Signed (signature on file) Darci Castro MD 03/13/24 1653 Normal [facility] Comprehensive metabolic 2000 panelon 11-26-2023 Albumin BCP dye [Mass/Vol] 4.6 g/dL Normal 3.4-5.0 [facility] Comment on above: Performed By: #### 2 4323-8 #### ADAM CALDERON ([id number]) [facility] ([facility]) [address] [place] [address] ALP [Catalytic activity/Vol] 52 U/L Normal 33-136 [facility] Comment on above: Performed By: #### 2 4323-8 #### ADAM CALDERON ([id number]) [facility] ([facility]) [address] [place] [address] ALT With P-5'-P [Catalytic activity/Vol] 17 U/L Normal 7-45 [facility] Comment on above: Result Comment: Shaista ents treated with Sulfasalazine may generate falsely decreased results for ALT. Performed By: #### 2 4323-8 #### ADAM CALDERON ([id number]) [facility] ([facility]) [address] [place] [address] Anion gap [Moles/Vol] 14 mmol/L Normal 10-20 [facility] Comment on above: Performed By: #### 2 4323-8 #### ADAM CALDERON ([id number]) [facility] ([facility]) [address] [place] [address] AST With P-5'-P [Catalytic activity/Vol] 16 U/L Normal 9-39 [facility] Comment on above: Performed By: #### 2 4323-8 #### ADAM CALDERON ([id number]) [facility] ([facility]) [address] [place] [address] Bilirubin [Mass/Vol] 0.6 mg/dL Normal 0.0-1.2 [facility] Comment on above: Performed By: #### 2 4323-8 #### ADAM CALDERON ([id number]) [facility] ([facility]) [address] [place] [address] Calcium [Mass/Vol] 10.0 mg/dL Normal 8.6-10.3 [facility] Comment on above: Performed By: #### 2 4323-8 #### ADAM CALDERON ([id number]) [facility]) [address] [place] [address] Chloride [Moles/Vol] 99 mmol/L Normal 98-107 [facility] Comment on above: Performed By: #### 2 4323-8 #### ADAM CALDERON ([id number]) [facility]) [address] [place] [address] CO2 [Moles/Vol] 28 mmol/L Normal 21-32 [facility] Comment on above: Performed By: #### 2 4323-8 #### ADAM CALDERON ([id number]) [facility] [address] [place] [address] Creatinine [Mass/Vol] 1.07 mg/dL High 0.50-1.05 [facility] Comment on above: Performed By: #### 2 4323-8 #### ADAM CALDERON ([id number]) [facility] [address] [place] [address] Glomerular filtration rate/1.73 sq M.predicted 59 mL/min/1.73m*2 Low >60 [facility] Comment on above: Result Comment: Calc ulations of estimated GFR are performed using the 2020 CKD-EPI Study Refit equation without the race variable for the IDMS-Traceable creatinine methods. https://jasn.asnjournals.org/content/early//ASN.1953380 988 Performed By: #### 2 4323-8 #### ADAM CALDERON ([id number]) [facility]) [address] [place] [address] Glucose [Mass/Vol] 92 mg/dL Normal 74-99 [facility] Comment on above: Performed By: #### 2 4323-8 #### ADAM CALDERON ([id number]) [facility] [address] [place] [address] Potassium [Moles/Vol] 4.2 mmol/L Normal 3.5-5.3 [facility] Comment on above: Performed By: #### 2 4323-8 #### ADMA CALDERON ([id number]) [facility]) [address] [place] [address] Protein [Mass/Vol] 7.1 g/dL Normal 6.4-8.2 [facility] Comment on above: Performed By: #### 2 4323-8 #### ADAM CALDERON ([id number]) [facility]) [address] [place] [address] Sodium [Moles/Vol] 137 mmol/L Normal 136-145 [facility] Comment on above: Performed By: #### 2 4323-8 #### ADAM CALDERON ([id number]) [facility] ([facility]) [address] [place] [address] Urea nitrogen [Mass/Vol] 20 mg/dL Normal 6-23 [facility] Comment on above: Performed By: #### 2 4323-8 #### ADAM CALDERON ([id number]) [facility]) [address] [place] [address] HbA1c (Bld) [Mass fraction]o n 11-26-2023 Average glucose Estimated from glycated hemoglobin (Bld) [Mass/Vol] 163 mg/dL Normal Not Established [facility] Comment on above: Order Comment: Diagn osis of Diabetes-Adults Non-Diabetic: < or = 5.6% Increased risk for developing diabetes: 5.7-6.4% Diagnostic of diabetes: > or = 6.5% Monitoring of Diabetes Age (y)....................... Therapeutic Goal (%) Adults: >18.........................<7.0 Pediatrics: 13-18...................<7.5 Pediatrics: 7-12....................<8.0 Pediatrics: 0-6..................... 7.5-8.5 [employer]. Diabetes Care 33(S1), Nov 2009 Performed By: #### 4 548-4 #### ADAM CALDERON ([id number]) [facility]) [address] [place] [address] Hemoglobin A1c/Hemoglobin.to milan 11-26-2023 HbA1c (Bld) [Mass fraction] 7.3 % High see below [facility] Comment on above: Order Comment: Diagn osis of Diabetes-Adults Non-Diabetic: < or = 5.6% Increased risk for developing diabetes: 5.7-6.4% Diagnostic of diabetes: > or = 6.5% Monitoring of Diabetes Age (y)....................... Therapeutic Goal (%) Adults: >18.........................<7.0 Pediatrics: 13-18...................<7.5 Pediatrics: 7-12....................<8.0 Pediatrics: 0-6..................... 7.5-8.5 [employer]. Diabetes Care 33(S1), Nov 2009 Performed By: #### 4 548-4 #### ADAM CALDERON ([id number]) [facility]) [address] [place] [address] Lipid 1996 panelon 4 Cholesterol [Mass/Vol] 185 mg/dL Normal 0-199 [facility] Comment on above: Result Comment: Age [...] By: #### 2 4331-1 #### ADAM CALDERON ([id number]) [facility] [address] [place] [address] Cholesterol in HDL [Mass/Vol] 34.5 mg/dL Normal [facility] Comment on above: Result Comment: Age Very Low Low Normal High 0-19 Y < 35 < 40 40-45 ---- 20-24 Y ---- < 40 >45 ---- >24 Y ---- < 40 40-60 >60 Performed By: #### 2 4331-1 #### ADAM CALDERON ([id number]) [facility]) [address] [place] [address] Cholesterol in LDL [Mass/Vol] 95 mg/dL Normal <=99 [facility] Comment on above: Result Comment: Near Borderline AGE Desirable Optimal High High Very High 0-19 Y 0 - 109 --- 110-129 >/= 130 ---- 20-24 Y 0 - 119 --- 120-159 >/= 160 ---- >24 Y 0 - 99 100-129 130-159 160-189 >/=190 Performed By: #### 2 4331-1 #### ADAM CALDERON ([id number]) [facility]) [address] [place] [address] Cholesterol in VLDL [Mass/Vol] 55 mg/dL High 0-40 [facility] Comment on above: Performed By: #### 2 4331-1 #### ADAM CALDERON ([id number]) [facility]) [address] [place] [address] CHOLESTEROL/HDL RATIO 5.4 Normal [facility] Comment on above: Result Comment: Ref Values Desirable < 3.4 High Risk > 5.0 Performed By: #### 2 4331-1 #### ADAM CALDERON ([id number]) [facility] [address] [place] [address] NON HDL CHOLESTEROL 151 mg/dL High 0-149 [facility] Comment on above: Result Comment: Age Desirable Borderline High High Very High 0-19 Y 0 - 119 120 - 144 >/= 145 >/= 160 20-24 Y 0 - 149 150 - 189 >/= 190 ---- >24 Y 30 mg/dL above LDL Cholesterol goal Performed By: #### 2 4331-1 #### ADAM CALDERON ([id number]) [facility]) [address] [place] [address] Triglyceride [Mass/Vol] 277 mg/dL High 0-149 [facility] Comment on above: Result Comment: Age [...] By: #### 2 4331-1 #### ADAM CALDERON ([id number]) [facility] ([facility]) [address] [place] [address] Thyrotropinon 11-26-2023 TSH Qn 0.72 m[IU]/L Normal 0.44-3.98 [facility] Comment on above: Order Comment: TSH t esting is performed using different testing methodology at [facility] than at other [facility]. Direct result comparisons should only be made within the same method. Performed By: #### 3 016-3 #### ADAM CALDERON ([id number]) [facility] ([facility]) [address] [place] [address] Thyroxine.freeon 11-26-2023 Free T4 [Mass/Vol] 1.24 ng/dL High 0.61-1.12 [facility] Comment on above: Order Comment: Thyro xine Free testing is performed using different testing methodology at [facility] than at other [facility]. Direct result comparisons should only be made [...] By: #### 3 024-7 #### ADAM CALDERON ([id number]) [facility] ([facility]) [address] [place], [place] [id number] Shanon 11-25-2023 CNOV Office Visit (ORTHLD ) DARSHANMARIE TRINIDAD ([id number]) 1960 F Date Time Provider Department 11/25/23 [...] : 26.52 kg/m? Diabetes: Well controlled - April has been diagnosed with Type 2 Diabetes. Her last Hemoglobin A1C was 6 (11/03/2023). [facility] score NARX Narcotics: 401 (11/24/2023 1:49 PM) ------- REVIEW OF SYSTEMS: CONSTITUTIONAL: No fevers, chills, nightsweats, unintended weight loss HEENT: Denies frequent or severe headaches, nasal congestion/sinus symptoms, problematic allergy problems. EYES: No di (more content not included)... 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, 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]) Surgeons: Macario Santos DPM Responsible Provider: Luc [...] November 10, 2023 TIME: 2:34 PM CSN: [id number] [facility] ANES PRE-OPon 11-10-2023 ANES PRE-OP HNO ID: [id number] Author: Serafin Partida MD Service: Anesthesiology Author Type: Anesthesiologist Type: Anesthesia Preprocedure Evaluation Filed: 11/10/2023 12:54 PM Note Text: ANESTHESIOLOGY DAY OF SURGERY NOTE : 1960 Procedure Information Date/Time: 11/10/23 1325 Procedures: REMOVAL HARDWARE FOOT (Right: Foot) - POPLITEAL BLOCK Adrian serrano aware of case - kf have available [employer] extraction set 1 and 2 ARTHRODESIS MIDTARSAL OR TARSOMETATARSAL, MULTIPLE OR TRANSVERSE (Right: Foot) ARTHRODESIS FOOT (Right: Foot) Location: OR12 / [facility] OR Surgeons: Macario Santos DPM [...] and consent discussed: yes. Patient / Responsible Libertarian agrees to proceed: yes Patient / Surrogate [...] puffs by (more content not included)... Normal [facility] BRIEF OP NOTon 11-10-2023 BRIEF OP NOT HNO ID: [id number] Author: Macario Santos DPM Service: Podiatry Author Type: Physician Type: Brief Op Note Filed: 11/10/2023 2:08 PM Note Text: PODIATRIC SURGERY BRIEF OPERATIVE NOTE LOG ID: [id number] Surgery/Procedure Date: 11/10/2023 Incision/Procedure Start Time: 1:25 PM Incision Close/Procedure End Time: Surgeon(s)/Proceduralis t(s) and Procurement Services Manager(s): Surgeon(s) and Role: * Macario Santos DPM - Primary * Alek Mclaughlin DPM - Resident - Assisting Physician Procurement Services Manager: Rhoda Weston PA-C Procedure(s): Right removal of [...] 10, 2023 TIME: 2:06 PM PAGER/CONTACT #: [phone] (Pager/Cell) Normal [facility] Bacteria Spec Anaerobe Culto n 11-10-2023 Bacteria identified Anaer cx Nom (Unsp spec) Negative Normal [facility] Comment on above: Performed By: #### 6 35-3, 43679-8, 61953-2 ####[facility] LABCLIA [id number] [place] [address] [place] Bacteria Tiss Culton 023 Bacteria identified Cx Nom (Tiss) CULTURE, TISSUE: No growth GRAM STAIN: No organisms seen No Polymorphonuclear Leukocytes Normal [facility] Comment on above: Performed By: #### 6 35-3, 57893-0, 85618-3 ####[facility] LABCLIA [id number] [place] [address] [place] Microorganism Spec Culton Microorganism identified Cx Nom (Unsp spec) CULTURE, FUNGAL: No Fungus isolated after 28 days FUNGAL SMEAR: No fungus seen [facility] Comment on above: Performed By: #### 6 35-3, 70068-8, 37683-0 ####[facility] LABCLIA [id number] [address] [address] [place] Microorganism identified Cx Nom (Unsp spec) CULTURE, AFB: No Acid Fast Bacilli isolated after 42 days AFB STAIN: No acid fast bacilli seen by flurochrome stain [facility] Comment on above: Performed By: #### 6 35-3, 20354-2, 08696-8 ####[facility] LABCLIA [id number] [place] [address] [place] NURSING PROGon 11-10-2023 NURSING PROG HNO ID: [id number] Author: Blanca Tomas RN Service: ? Author [...] (RECOMMENDATION): None Electronically Signed By: Blanca Tomas [facility] NURSING PROG HNO ID: [id number] Author: Brigette Stallworth RN Service: Pain Management Author Type: Registered Nurse Type: Nursing Progress Note Filed: 11/10/2023 12:39 PM Note Text: RIGHT popliteal single shot nerve block and RIGHT adductor canal single shot nerve block Dr. Stanley and Dr. Rodrigues Patient verbalized understanding of nerve block procedure. Patient tolerated procedure very well; report given to primary nurse. [facility] NURSING PROG HNO ID: [id number] Author: Jenni Zarco RN Service: ? Author [...] (RECOMMENDATION): None Electronically Signed By: Jenni Zarco [facility] OPERATIVE NOon 11-10-2023 OPERATIVE NO HNO ID: [id number] Author: Macario Santos DPM Service: Podiatry Author Type: Physician Type: Operative Report Filed: 11/12/2023 8:42 AM Note Text: SURGERY OPERATIVE NOTE LOG ID: [id number] Surgery/Procedure Date: 11/10/2023 Incision/Procedure Start Time: 1:25 PM Incision Close/Procedure End Time: 2:17 PM Surgeon(s)/Proceduralis t(s) and Procurement Services Manager(s): Surgeon(s) and Role: * Macario Santos DPM - Primary * Alek Mclaughlin DPM - Resident - Assisting Physician Procurement Services Manager: Rhoda Weston PA-C PRE-OP/PRE-PROCEDURE DIAGNOSIS: Right foot [...] impregnated cement was then prepared per the assessment expert's recommended technique and then placed into the [...] 12, 2023 TIME: 8:37 AM PAGER/CONTACT #: [phone] (Pager/Cell) Normal [facility] SURGICAL PATHOLOGYon 023 CASE REPORT Normal [facility] Comment on above: Order Comment: Speci men Type: SPECIMEN FROM BONEOrdering Facility: [facility] Address: [address] [place] [address] Result Comment: Surg ical Pathology Report Case: [id number] Authorizing Provider: Macario Santos Collected: 11/10/2023 01:43 PM FLASH Zuniga Ordering Location: [facility] Received: 11/10/2023 02:35 PM Operating Room Pathologist: Laina Álvarez MD Specimen: BONE RESECTION, right non union talus Performed By: #### S ####[facility] LABCLIA [id number] [place] [id number] [place] [facility] LABORATORYCLIA [id number] [place] [address] [place] CLINICAL HISTORY POPLITEAL BLOCK Normal [facility] Comment on above: Order Comment: Speci men Type: SPECIMEN FROM BONEOrdering Facility: [facility] Address: [address] [place] [address] Result Comment: Pre-op diagnosis: Retained orthopedic hardware [Z96.9] Nonunion of foot fracture, 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 B one and soft tissue, right, nonunion talus bone, resection: - Soft tissue with reactive changes, chronic inflammation and foreign body-type giant cell reaction. - Fragments of necrotic bone. Performed By: #### S ####[facility] LABCLIA [id number] [address] LABORATORYCLIA [id number] [address] OF [facility] FINAL PERFORMING LAB Normal [facility] Comment on above: Order Comment: Speci men Type: SPECIMEN FROM BONEOrdering Facility: [facility] Address: [address] [place] [address] Result Comment: Diag nostic interpretation performed at [facility], [address] [address] CLIA# [id number] Certified Ophthalmic Technician: Sarwat Enamorado M.D. Performed By: #### S ####[facility] LABCLIA [id number] [address] LABORATORYCLIA [id number] [address] OF [facility] GROSS DESCRIPTION Normal [facility] Comment on above: Order Comment: Speci men Type: SPECIMEN FROM BONEOrdering Facility: [facility] Address: [address] [place] [address] Result Comment: A. 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 Totally submitted in 1 cassette following decalcification. MLG November 11, 2023 9:03 AM Gross examination performed at [facility], [address] [place] [address] Performed By: #### S ####[facility] LABCLIA [id number] [address] LABORATORYCLIA [id number] [address] XR FOOT 2V AP/LAT RTon 11-10 [...] IMPRESSION: Please see operative note for details Milk Receiver: PSCB Transcribe Date/Time: Nov 10 2023 3:22P Dictated by : ARLIN CRUZ MD This examination was interpreted and the report reviewed and electronically signed by: ARLIN CRUZ MD on Nov 10 2023 3:24PM EST [id number] Normal [facility] CBC W Auto Differential pane l (Bld)on 11-03-2023 Basophils (Bld) [#/Vol] 0.05 10*3/uL Normal <0.11 [facility] Comment on above: Order Comment: Speci men Type: BLOOD SPECIMENOrdering Facility: [facility] Address: [address] [place] [address] Performed By: #### 5 7021-8 ####[facility] LABCLIA [id number] [place] [address] [place] Basophils/100 WBC (Bld) 0.6 % Normal [facility] Comment on above: Order Comment: Speci men Type: BLOOD SPECIMENOrdering Facility: [facility] Address: [address] [place] [address] Performed By: #### 5 7021-8 ####[facility] LABCLIA [id number] [place] [address] [place] Differential cell count method Nom (Bld) Auto Normal [facility] Comment on above: Order Comment: Speci men Type: BLOOD SPECIMENOrdering Facility: [facility] Address: [address] [place] [address] Performed By: #### 5 7021-8 ####[facility] LABCLIA [id number] [place] [address] [place] Eosinophils (Bld) [#/Vol] 0.41 10*3/uL Normal <0.46 [facility] Comment on above: Order Comment: Speci men Type: BLOOD SPECIMENOrdering Facility: [facility] Address: [address] [place] [address] Performed By: #### 5 7021-8 ####[facility] LABCLIA [id number] [place] [address] [place] Eosinophils/100 WBC (Bld) 4.9 % Normal [facility] Comment on above: Order Comment: Speci men Type: BLOOD SPECIMENOrdering Facility: [facility] Address: [address] [place] [address] Performed By: #### 5 7021-8 ####[facility] LABCLIA [id number] [place] [address] [place] Erythrocyte distribution width (RBC) [Ratio] 12.8 % Normal 11.5-15.0 [facility] Comment on above: Order Comment: Speci men Type: BLOOD SPECIMENOrdering Facility: [facility] Address: [address] [place] [address] Performed By: #### 5 7021-8 ####[facility] LABCLIA [id number] [place] [address] [place] Hematocrit (Bld) [Volume fraction] 40.9 % Normal 36.0-46.0 [facility] Comment on above: Order Comment: Speci men Type: BLOOD SPECIMENOrdering Facility: [facility] Address: [address] [place] [address] Performed By: #### 5 7021-8 ####[facility] LABIA [id number] [place] [address] [place] Hemoglobin (Bld) [Mass/Vol] 12.9 g/dL Normal 11.5-15.5 [facility] Comment on above: Order Comment: Speci men Type: BLOOD SPECIMENOrdering Facility: [facility] Address: [address] [place] [address] Performed By: #### 5 7021-8 ####[facility] LABCLIA [id number] [place] [address] [place] Immature granulocytes (Bld) [#/Vol] 0.05 10*3/uL Normal <0.10 [facility] Comment on above: Order Comment: Speci men Type: BLOOD SPECIMENOrdering Facility: [facility] Address: [address] [place] [address] Performed By: #### 5 7021-8 ####[facility] LABCLIA [id number] [place] [address] [place] Immature granulocytes/100 WBC (Bld) 0.6 % Normal [facility] Comment on above: Order Comment: Speci men Type: BLOOD SPECIMENOrdering Facility: [facility] Address: [address] [place] [address] Performed By: #### 5 7021-8 ####[facility] LABCLIA [id number] [place] [address] [place] Lymphocytes (Bld) [#/Vol] 2.95 10*3/uL Normal 1.00-4.00 [facility] Comment on above: Order Comment: Speci men Type: BLOOD SPECIMENOrdering Facility: [facility] Address: [address] [place] [address] Performed By: #### 5 7021-8 ####[facility] LABCLIA [id number] [place] [address] [place] Lymphocytes/100 WBC (Bld) 35.2 % Normal [facility] Comment on above: Order Comment: Speci men Type: BLOOD SPECIMENOrdering Facility: [facility] Address: [address] [place] [address] Performed By: #### 5 7021-8 ####[facility] LABIA [id number] [place] [address] [place] MCH (RBC) [Entitic mass] 28.6 pg Normal 26.0-34.0 [facility] Comment on above: Order Comment: Speci men Type: BLOOD SPECIMENOrdering Facility: [facility] Address: [address] [place] [address] Performed By: #### 5 7021-8 ####[facility] LABIA [id number] [place] [address] [place] MCHC (RBC) [Mass/Vol] 31.5 g/dL Normal 30.5-36.0 [facility] Comment on above: Order Comment: Speci men Type: BLOOD SPECIMENOrdering Facility: [facility] Address: [address] [place] [address] Performed By: #### 5 7021-8 ####[facility] LABCLIA [id number] [place] [address] [place] MCV (RBC) [Entitic vol] 90.7 fL Normal 80.0-100.0 [facility] Comment on above: Order Comment: Speci men Type: BLOOD SPECIMENOrdering Facility: [facility] Address: [address] [place] [address] Performed By: #### 5 7021-8 ####[facility] LABCLIA [id number] [place] [address] [place] Monocytes (Bld) [#/Vol] 0.63 10*3/uL Normal <0.87 [facility] Comment on above: Order Comment: Speci men Type: BLOOD SPECIMENOrdering Facility: [facility] Address: [address] [place] [address] Performed By: #### 5 7021-8 ####[facility] LABCLIA [id number] [place] [address] [place] Monocytes/100 WBC (Bld) 7.5 % Normal [facility] Comment on above: Order Comment: Speci men Type: BLOOD SPECIMENOrdering Facility: [facility] Address: [address] [place] [address] Performed By: #### 5 7021-8 ####[facility] LABCLIA [id number] [place] [address] [place] Neutrophils (Bld) [#/Vol] 4.30 10*3/uL Normal 1.45-7.50 [facility] Comment on above: Order Comment: Speci men Type: BLOOD SPECIMENOrdering Facility: [facility] Address: [address] [place] [address] Performed By: #### 5 7021-8 ####[facility] LABCLIA [id number] [place] [address] [place] Neutrophils/100 WBC (Bld) 51.2 % Normal [facility] Comment on above: Order Comment: Speci men Type: BLOOD SPECIMENOrdering Facility: [facility] Address: [address] [place] [address] Performed By: #### 5 7021-8 ####[facility] LABCLIA [id number] [place] [address] [place] Nucleated RBC (Bld) [#/Vol] 10*3/uL Normal <0.01 [facility] Comment on above: Order Comment: Speci men Type: BLOOD SPECIMENOrdering Facility: [facility] Address: [address] [place] [address] Performed By: #### 5 7021-8 ####[facility] LABCLIA [id number] [place] [address] [place] Nucleated RBC/100 WBC (Bld) [Ratio] 0.0 /100 WBC Normal [facility] Comment on above: Order Comment: Speci men Type: BLOOD SPECIMENOrdering Facility: [facility] Address: [address] [place] [address] Performed By: #### 5 7021-8 ####[facility] LABIA [id number] [place] [address] [place] Platelet mean volume (Bld) [Entitic vol] 10.2 fL Normal 9.0-12.7 [facility] Comment on above: Order Comment: Speci men Type: BLOOD SPECIMENOrdering Facility: [facility] Address: [address] [place] [address] Performed By: #### 5 7021-8 ####[facility] LABIA [id number] [place] [address] [place] Platelets (Bld) [#/Vol] 315 10*3/uL Normal 150-400 [facility] Comment on above: Order Comment: Speci men Type: BLOOD SPECIMENOrdering Facility: [facility] Address: [address] [place] [address] Performed By: #### 5 7021-8 ####[facility] LABCLIA [id number] [place] [address] [place] RBC (Bld) [#/Vol] 4.51 10*6/uL Normal 3.90-5.20 [facility] Comment on above: Order Comment: Speci men Type: BLOOD SPECIMENOrdering Facility: [facility] Address: [address] [place] [address] Performed By: #### 5 7021-8 ####[facility] LABCLIA [id number] [address] [address] [place] WBC (Bld) [#/Vol] 8.39 10*3/uL Normal 3.70-11.00 [facility] Comment on above: Order Comment: Speci men Type: BLOOD SPECIMENOrdering Facility: [facility] Address: [address] [place] [address] Performed By: #### 5 7021-8 ####[facility] LABCLIA [id number] [place] [address] [place] Comprehensive metabolic 2000 panelon 11-03-2023 Albumin [Mass/Vol] 4.8 g/dL Normal 3.9-4.9 [facility] Comment on above: Order Comment: Speci men Type: BLOOD SPECIMENOrdering Facility: [facility] Address: [address] [place] [address] Performed By: #### 2 4323-8 ####[facility] LABCLIA [id number] [place] [address] [place] ALP [Catalytic activity/Vol] 73 U/L Normal 34-123 [facility] Comment on above: Order Comment: Speci men Type: BLOOD SPECIMENOrdering Facility: [facility] Address: [address] [place] [address] Performed By: #### 2 4323-8 ####[facility] LABCLIA [id number] [place] [address] [place] ALT [Catalytic activity/Vol] 14 U/L Normal 7-38 [facility] Comment on above: Order Comment: Speci men Type: BLOOD SPECIMENOrdering Facility: [facility] Address: [address] [place] [address] Performed By: #### 2 4323-8 ####[facility] LABCLIA [id number] [place] [address] [place] Anion gap [Moles/Vol] 13 mmol/L Normal 9-18 [facility] Comment on above: Order Comment: Speci men Type: BLOOD SPECIMENOrdering Facility: [facility] Address: [address] [place] [address] Performed By: #### 2 4323-8 ####[facility] LABCLIA [id number] [place] [address] [place] AST [Catalytic activity/Vol] 17 U/L Normal 13-35 [facility] Comment on above: Order Comment: Speci men Type: BLOOD SPECIMENOrdering Facility: [facility] Address: [address] [place] [address] Performed By: #### 2 4323-8 ####[facility] LABCLIA [id number] [place] [address] [place] Bilirubin [Mass/Vol] 0.2 mg/dL Normal 0.2-1.3 [facility] Comment on above: Order Comment: Speci men Type: BLOOD SPECIMENOrdering Facility: [facility] Address: [address] [place] [address] Performed By: #### 2 4323-8 ####[facility] LABCLIA [id number] [place] [address] [place] Calcium [Mass/Vol] 10.7 mg/dL High 8.5-10.2 [facility] Comment on above: Order Comment: Speci men Type: BLOOD SPECIMENOrdering Facility: [facility] Address: [address] [place] [address] Performed By: #### 2 4323-8 ####[facility] LABCLIA [id number] [place] [address] [place] Chloride [Moles/Vol] 101 mmol/L Normal 97-105 [facility] Comment on above: Order Comment: Speci men Type: BLOOD SPECIMENOrdering Facility: [facility] Address: [address] [place] [address] Performed By: #### 2 4323-8 ####[facility] LABCLIA [id number] [place] [address] [place] CO2 [Moles/Vol] 28 mmol/L Normal 22-30 [facility] Comment on above: Order Comment: Speci men Type: BLOOD SPECIMENOrdering Facility: [facility] Address: [address] [place] [address] Performed By: #### 2 4323-8 ####[facility] LABIA [id number] [address] [place] Creatinine [Mass/Vol] 0.92 mg/dL Normal 0.58-0.96 [facility] Comment on above: Order Comment: Speci men Type: BLOOD SPECIMENOrdering Facility: [facility] Address: [address] [place] [address] Performed By: #### 2 4323-8 ####[facility] LABIA [id number] [address] OF [facility] Creatinine and Glomerular filtration rate.predicted panel (S/P/Bld) 71 mL/min/1.73m??? Normal >=60 [facility] Comment on above: Order Comment: Speci men Type: BLOOD SPECIMENOrdering Facility: [facility] Address: [address] [place] [address] Result Comment: Luis mated Glomerular Filtration Rate [...] actual GFR. Performed By: #### 2 4323-8 ####[facility] LABCLIA [id number] [place] [address] [place] Glucose [Mass/Vol] 125 mg/dL High 74-99 [facility] Comment on above: Order Comment: Speci men Type: BLOOD SPECIMENOrdering Facility: [facility] Address: [address] [place] [address] Result Comment: The [place] [employer] (ADA) provides guidance for cutoff [...] Standards of Medical Care in Diabetes 2016, [place] [employer]. Diabetes Care. 2016.39(Suppl 1). Performed By: #### 2 4323-8 ####[facility] LABCLIA [id number] [place] [address] [place] Potassium [Moles/Vol] 4.9 mmol/L Normal 3.7-5.1 [facility] Comment on above: Order Comment: Samiri men Type: BLOOD SPECIMENOrdering Facility: [facility] Address: [address] [place] [address] Performed By: #### 2 4323-8 ####[facility] LABCLIA [id number] [place] [address] [place] Protein [Mass/Vol] 7.8 g/dL Normal 6.3-8.0 [facility] Comment on above: Order Comment: Speci men Type: BLOOD SPECIMENOrdering Facility: [facility] Address: [address] [place] [address] Performed By: #### 2 4323-8 ####[facility] [facility] LABCLIA [id number] [place] [address] [place] Sodium [Moles/Vol] 142 mmol/L Normal 136-144 [facility] Comment on above: Order Comment: Speci men Type: BLOOD SPECIMENOrdering Facility: [facility] Address: [address] [place] [address] Performed By: #### 2 4323-8 ####[facility] LABCLIA [id number] [place] [address] [place] Urea nitrogen [Mass/Vol] 25 mg/dL High 7-21 [facility] Comment on above: Order Comment: Speci men Type: BLOOD SPECIMENOrdering Facility: [facility] Address: [address] [place] [address] Performed By: #### 2 4323-8 ####[facility] LABCLIA [id number] [address] [place] HISTORY PHYSICALon HISTORY PHYSICAL HNO ID: [id number] Author: Wiliam Daniels APRN.DECORATING SUPERVISOR Service: ? Author Type: Nurse Practitioner Type: [...] large neck Non-male patient STOP-Bang Score: 2 [id number] Score: Age: <65 Sex: Female CHF history: No Hypertension history: Yes Stroke/TIA/thromboembol ism history: No Diabetes history: Yes [id number] Score: 3 ANESTHESIA FINDINGS: Intubation History: No [...] dyspnea, pratik (more content not included)... Normal [facility] HbA1c (Bld)on 11-03-2023 Average glucose Estimated from glycated hemoglobin (Bld) [Mass/Vol] 126 mg/dL Normal [facility] Comment on above: Order Comment: Shlomo ghosh Type: BLOOD SPECIMENOrdering Facility: [facility] Address: [address] [place] [address] Result Comment: eAG: (Estimated average glucose) is a calculated value from HgbA1c and is service center representative of the average blood glucose level in the last 2-3 month period. Performed By: #### 5 5454-3 ####[facility] LABCLIA [id number] [facility] [id number] [place] [address] [place] HbA1c (Bld) [Mass fraction] 6.0 % High 4.3-5.6 [facility] Comment on above: Order Comment: Speci men Type: BLOOD SPECIMENOrdering Facility: [facility] Address: [address] [facility] [place] [address] Result Comment: [place] Diabetes Association guidelines indicate that patients with HgbA1c in the range 5.7-6.4% are at increased risk for development of diabetes, and intervention by lifestyle modification may be beneficial. HgbA1c greater or equal to 6.5% is considered diagnostic of diabetes. Performed By: #### 5 5454-3 ####[facility] LABCLIA [id number] [facility] [id number] [id number] [facility] OF [place] CT ANKLE WO IVCON RTon 10-14 CT ANKLE WO IVCON RT * * *Final Report* * * DATE OF EXAM: Oct 14 2023 12:19PM [facility] [place] ANKLE [place] IVCON RT [...] OF MULTIPLE SCREWS IN THE MIDFOOT DESCRIBED. Milk Receiver: SUBHASH Transcribe Date/Time: Oct 14 2023 12:22P Dictated by : LATRICIA LIN MD This examination was interpreted and the report reviewed and electronically signed by: LATRICIA LIN MD on Oct 14 2023 1:12PM EST [id number] Normal [facility] CNOVon 10-11-2023 CNOV Office Visit (ORTHLD ) MARIE SEXTON ([id number]) 1960 F Date Time Provider Department 10/11/23 [...] OBJECTIVE: Patient (more content not included)... Normal [facility] XR FOOT 3V AP/LAT/OBL BILon 10-11-2023 XR [...] left foot, possibly due to Charcot arthropathy Milk Receiver: SUBHASH Transcribe Date/Time: Oct 14 2023 9:07A Dictated by : REGI WOODS MD This examination was interpreted and the report reviewed and electronically signed by: REGI WOODS MD on Oct 14 2023 9:15AM EST [id number] Normal [facility] CNOVon 09-06-2023 CNOV Office Visit (JAE ) MARIE SEXTON ([id number]) 1960 F Date Time Provider Department 09/06/23 1:45 PM [place], SORTO EFRAIN ORTHLD During your visit today, we recorded the following information about you: SafiajeannaMacario horton FLASH Zuniga 09/07/2023 2:25 PM Addendum PODIATRIC [...] peripheral weakness/ (more content not included)... Normal [facility] XR ANKLE 3V AP/LAT/OBL LTon 09-06-2023 XR [...] concern for Charcot foot. Please clinically correlate. Milk Receiver: SUBHASH Transcribe Date/Time: Sep 09 2023 8:54A Dictated by : AGAPITO PINZON MD This examination was interpreted and the report reviewed and electronically signed by: AGAPITO PINZON MD on Sep 09 2023 9:15AM EST [id number] Normal [facility] XR ANKLE 3V AP/LAT/OBL RTon 09-06-2023 XR [...] concern for Charcot foot. Please clinically correlate. Milk Receiver: SUBHASH Transcribe Date/Time: Sep 09 2023 8:54A Dictated by : AGAPITO PINZON MD This examination was interpreted and the report reviewed and electronically signed by: AGAPITO PINZON MD on Sep 09 2023 9:15AM EST [id number] Normal [facility] CNOVon 08-05-2023 CNOV Office Visit (ORTHLD ) DARSHANMARIE TRINIDAD ([id number]) 1960 F Date Time Provider Department 08/05/23 [...] ROS obtain (more content not included)... Normal [facility] XR ANKLE 3V AP/LAT/OBL RTon 08-05-2023 XR [...] joints visible in the lateral projection only. Milk Receiver: PSCB Transcribe Date/Time: Aug 09 2023 12:30P Dictated by : REGI WOODS MD This examination was interpreted and the report reviewed and electronically signed by: REGI WOODS MD on Aug 09 2023 12:34PM EST [id number] Normal [facility] ALBUMIN, URINE SPOTon 2022 ALBUMIN,URINE <7.0 Normal Not Established [facility] Comment on above: Performed By: #### A LBSP #### [address] [address] ALBUMIN/CREAT RATIO SEE COMMENT Normal 0.0 - 30.0 [facility] Comment on above: Result Comment: One or more analytes used in this calculation is outside of the analytical measurement range. Calculation cannot be performed. Performed By: #### A LBSP #### [facility] [address] [place] [address] CREATININE,URINE 147.0 mg/dL Normal 20.0 - 320.0 [facility] Comment on above: Performed By: #### A LBSP #### [facility] [address] [place] [address] CBC AND DIFFERENTIALon 07-27 % AUTOMATED IMMATURE GRAN 0.3 % Normal 0.0 - 0.9 [facility] Comment on above: Result Comment: Coni ture Granulocyte Count (IG) includes promyelocytes, myelocytes and metamyelocytes but does not include bands. Percent differential counts (%) should be interpreted in the context of the absolute cell counts (cells/L). Performed By: #### C BCDF #### [address] [address] Basophils (Bld) [#/Vol] 0.06 10*3/uL Normal 0.00 - 0.10 [facility] Comment on above: Performed By: #### C BCDF #### [address] [address] Basophils/100 WBC (Bld) 0.9 % Normal 0.0 - 2.0 [facility] Comment on above: Performed By: #### C BCDF #### [address] [address] Eosinophils (Bld) [#/Vol] 0.28 10*3/uL Normal 0.00 - 0.70 [facility] Comment on above: Performed By: #### C BCDF #### [address] [address] Eosinophils/100 WBC (Bld) 4.1 % Normal 0.0 - 6.0 [facility] Comment on above: Performed By: #### C BCDF #### [address] [address] Erythrocyte distribution width (RBC) [Ratio] 12.6 % Normal 11.5 - 14.5 [facility] Comment on above: Performed By: #### C BCDF #### [address] [address] Hematocrit (Bld) [Volume fraction] 40.3 % Normal 36.0 - 46.0 [facility] Comment on above: Performed By: #### C BCDF #### [address] [address] Hemoglobin (Bld) [Mass/Vol] 13.0 g/dL Normal 12.0 - 16.0 [facility] Comment on above: Performed By: #### C BCDF #### [address] [address] Lymphocytes (Bld) [#/Vol] 2.95 10*3/uL Normal 1.20 - 4.80 [facility] Comment on above: Performed By: #### C BCDF #### [address] [address] Lymphocytes/100 WBC (Bld) 42.8 % Normal 13.0 - 44.0 [facility] Comment on above: Performed By: #### C BCDF #### [address] [address] MCHC (RBC) [Mass/Vol] 32.3 g/dL Normal 32.0 - 36.0 [facility] Comment on above: Performed By: #### C BCDF #### [address] [address] MCV (RBC) [Entitic vol] 91 fL Normal 80 - 100 [facility] Comment on above: Performed By: #### C BCDF #### [address] [address] Monocytes (Bld) [#/Vol] 0.54 10*3/uL Normal 0.10 - 1.00 [facility] Comment on above: Performed By: #### C BCDF #### [address] [address] Monocytes/100 WBC (Bld) 7.8 % Normal 2.0 - 10.0 [facility] Comment on above: Performed By: #### C BCDF #### [address] [address] Neutrophils (Bld) [#/Vol] 3.05 10*3/uL Normal 1.20 - 7.70 [facility] Comment on above: Performed By: #### C BCDF #### [address] [address] Neutrophils/100 WBC (Bld) 44.1 % Normal 40.0 - 80.0 [facility] Comment on above: Performed By: #### C BCDF #### [address] [address] NUCLEATED RBC 0.0 /100 WBC Normal 0.0 - 0.0 [facility] Comment on above: Performed By: #### C BCDF #### [address] [address] Platelets (Bld) [#/Vol] 358 10*3/uL Normal 150 - 450 [facility] Comment on above: Performed By: #### C BCDF #### [facility] [address] [place] [address] RBC 4.42 x10E12/L Normal 4.00 - 5.20 [facility] Comment on above: Performed By: #### C BCDF #### [facility] [address] [place] [address] WBC (Bld) [#/Vol] 6.9 10*3/uL Normal 4.4 - 11.3 [facility] Comment on above: Performed By: #### C BCDF #### [facility] [address] [place] [address] COMPREHENSIVE PANELon 2022 Albumin [Mass/Vol] 4.5 g/dL Normal 3.4 - 5.0 [facility] Comment on above: Performed By: #### C OVSC #### [facility] [address] [place] [address] ALP [Catalytic activity/Vol] 85 U/L Normal 33 - 136 [facility] Comment on above: Performed By: #### C OVSC #### [facility] [address] [place] [address] ALT [Catalytic activity/Vol] 14 U/L Normal 7 - 45 [facility] Comment on above: Result Comment: Shaista ents treated with Sulfasalazine may generate falsely decreased results for ALT. Performed By: #### C OVSC #### [facility] [address] [place] [address] Anion gap [Moles/Vol] 11 mmol/L Normal 10 - 20 [facility] Comment on above: Performed By: #### C OVSC #### [facility] [address] [place] [address] AST [Catalytic activity/Vol] 14 U/L Normal 9 - 39 [facility] Comment on above: Performed By: #### C OVSC #### [facility] [address] [place] [address] Bilirubin [Mass/Vol] 0.4 mg/dL Normal 0.0 - 1.2 [facility] Comment on above: Performed By: #### C OVSC #### [facility] [address] [place] [address] Calcium [Mass/Vol] 9.7 mg/dL Normal 8.6 - 10.3 [facility] Comment on above: Performed By: #### C OVSC #### [facility] [address] [place] [address] Chloride [Moles/Vol] 105 mmol/L Normal 98 - 107 [facility] Comment on above: Performed By: #### C OVSC #### [facility] [address] [place] [address] Creatinine [Mass/Vol] 1.06 mg/dL High 0.50 - 1.05 [facility] Comment on above: Performed By: #### C OVSC #### [facility] [address] [place] [address] GFR/1.73 sq M.predicted among non-blacks MDRD (S/P/Bld) [Vol rate/Area] 59 mL/min/{1.73_m2} Abnormal >90 [facility] Comment on above: Result Comment: CALC ULATIONS OF ESTIMATED GFR ARE PERFORMED USING THE 2020 CKD-EPI STUDY REFIT EQUATION WITHOUT THE RACE VARIABLE FOR THE IDMS-TRACEABLE CREATININE METHODS. https://jasn.asnjournals.org/content//ASN.7172155 988 Performed By: #### C OVSC #### [facility] [address] [place] [address] Glucose [Mass/Vol] 109 mg/dL High 74 - 99 [facility] Comment on above: Performed By: #### C OVSC #### [facility] [address] [place] [address] HCO3 (Bld) [Moles/Vol] 28 mmol/L Normal 21 - 32 [facility] Comment on above: Performed By: #### C OVSC #### [facility] [address] [place] [address] Potassium [Moles/Vol] 4.2 mmol/L Normal 3.5 - 5.3 [facility] Comment on above: Performed By: #### C OVSC #### [facility] [address] [place] [address] Protein [Mass/Vol] 7.7 g/dL Normal 6.4 - 8.2 [facility] Comment on above: Performed By: #### C OVSC #### [facility] [address] [place] [address] Sodium [Moles/Vol] 140 mmol/L Normal 136 - 145 [facility] Comment on above: Performed By: #### C OVSC #### [facility] [address] [place] [address] Urea nitrogen [Mass/Vol] 23 mg/dL Normal 6 - 23 [facility] Comment on above: Performed By: #### C OVSC #### [facility] [address] [place] [address] HEMOGLOBIN A1Con 07-27-2023 Glucose [Mass/Vol] 128 mg/dL Normal [facility] Comment on above: Performed By: #### A LBSP #### [facility] [address] [place] [address] HbA1c (Bld) [Mass fraction] 6.1 % Abnormal [facility] Comment on above: Result Comment: Diag nosis of Diabetes-Adults Non-Diabetic: < or = 5.6% Increased risk for developing diabetes: 5.7-6.4% Diagnostic of diabetes: > or = 6.5% . Monitoring of Diabetes Age (y) Therapeutic Goal (%) Adults: >18 <7.0 Pediatrics: 13-18 <7.5 7-12 <8.0 0- 6 7.5-8.5 [place] [employer]. Diabetes Care 33(S1), Nov 2009. Performed By: #### A LBSP #### [facility] [address] [place] [address] LDL, DIRECTon 07-27-2023 Cholesterol in LDL [Mass/Vol] 106 mg/dL Normal 0 - 129 [facility] Comment on above: Result Comment: Elev ated levels of LDL cholesterol are recognized as a fisher factor in the development of atherosclerosis and CHD. The direct LDL cholesterol test can be used to assess cardiovascular risk and monitor therapy as a follow up to a lipid profile when triglycerides are significantly elevated. Performed By: #### A LBSP #### [facility] [address] [place] [address] LIPID PANEL (CORONARY RISK 2 )on 07-27-2023 Cholesterol [Mass/Vol] 183 mg/dL Normal 0 - 199 [facility] Comment on above: Result Comment: . AGE [...] dosing. Performed By: #### C OVSC #### [facility] [address] [place] [address] Cholesterol in HDL [Mass/Vol] 33.1 mg/dL Abnormal [facility] Comment on above: Result Comment: . AGE VERY LOW LOW NORMAL HIGH 0-19 Y < 35 < 40 40-45 ---- 20-24 Y ---- < 40 >45 ---- >24 Y ---- < 40 40-60 >60 . Performed By: #### C OVSC #### [facility] [address] [place] [address] Cholesterol in LDL [Mass/Vol] 92 mg/dL Normal 0 - 99 [facility] Comment on above: Result Comment: . NEAR BORD AGE DESIRABLE OPTIMAL HIGH HIGH VERY HIGH 0-19 Y 0 - 109 --- 110-129 >/= 130 ---- 20-24 Y 0 - 119 --- 120-159 >/= 160 ---- >24 Y 0 - 99 100-129 130-159 160-189 >/=190 . Performed By: #### C OVSC #### [facility] [address] [place] [address] Cholesterol in VLDL [Mass/Vol] 58 mg/dL High 0 - 40 [facility] Comment on above: Performed By: #### C OVSC #### [facility] [address] [place] [address] Cholesterol.total/Ch olesterol in HDL [Mass ratio] 5.5 {ratio} Abnormal [facility] Comment on above: Result Comment: REF VALUES DESIRABLE < 3.4 HIGH RISK > 5.0 Performed By: #### C OVSC #### [facility] [address] [place] [address] NON-HDL CHOLESTEROL 150 mg/dL Normal [facility] Comment on above: Result Comment: AGE DESIRABLE BORDERLINE HIGH HIGH VERY HIGH 0-19 Y 0 - 119 120 - 144 >/= 145 >/= 160 20-24 Y 0 - 149 150 - 189 >/= 190 ---- >24 Y 30 MG/DL ABOVE LDL CHOLESTEROL GOAL . Performed By: #### C OVSC #### [facility] [address] [place] [address] Triglyceride [Mass/Vol] 288 mg/dL High 0 - 149 [facility] Comment on above: Result Comment: . AGE [...] dosing. Performed By: #### C OVSC #### [facility] [address] [place] [address] TSHon 07-27-2023 TSH Qn 0.61 m[IU]/L Normal 0.44 - 3.98 [facility] Comment on above: Result Comment: TSH testing is performed using different testing methodology at [facility] than at other [facility]. Direct result comparisons should only be made within the same method. Performed By: #### A LBSP #### [facility] [address] [place] [address] VITAMIN B12on 07-27-2023 Cobalamin (Vitamin B12) [Mass/Vol] 1408 pg/mL High 211 - 911 [facility] Comment on above: Performed By: #### V TB12 #### [facility] [address] [place] [address] VITAMIN D, 25-HYDROXYon 07-16 VITAMIN D, 25-HYDROXY 50 ng/mL Normal [facility] Comment on above: Result Comment: . DEFICIENCY: < 20 NG/ML INSUFFICIENCY: 20-29 NG/ML SUFFICIENCY: 30-100 NG/ML THIS ASSAY ACCURATELY QUANTIFIES THE SUM OF VITAMIN D3, 25-HYDROXY AND VIT D2,25-HYDROXY. Performed By: #### V TDOH #### [facility] [address] [place] [address] ALLIED HEALTHon 07-02-2023 [facility]IED [facility]ALTH HNO ID: [id number] Author: Francesca Kaur Service: Radiology Author Type: ? Type: Allied Health Filed: 07/02/2023 10:12 AM Note Text: RADIOLOGY SERVICE PROGRESS NOTE DATE OF SERVICE: July 02, 2023 TIME OF SERVICE: 10:03AM EVENT: ARRIVED IN WHEELCHAIR ADDITIONAL EVENT DETAILS: NA SIGNATURE: Francesca Kaur PATIENT NAME: Marie Sexton DATE: July 02, 2023 TIME: 10:12 AM [facility]ORFWHP ) MARIE SEXTON ([id number]) 1960 F Date Time Provider Department 07/02/23 [...] No new joint (more content not included)... [facility] XR ANKLE 3V AP/LAT/OBL RTon 07-02-2023 [...] appears intact. Pes planus. IMPRESSION: Postsurgical changes. Milk Receiver: SUBHASH Transcribe Date/Time: Jul 07 2023 7:59A Dictated by : SREE BUTTS MD This examination was interpreted and the report reviewed and electronically signed by: SREE BUTTS MD on Jul 07 2023 8:02AM EST [id number] [facility] CNOVon 06-07-2023 CNOV Office Visit (ORTHLD ) MARIE [id number]) 1960 F Date Time Provider Department 06/07/23 [...] habits, hematoche (more content not included)... Normal [facility] Office Visit (ORTHLD ) MARIE SEXTON ([id number]) 1960 F Date Time Provider Department 06/07/23 11:30 AM CAST [employer] ORTHKRISTEN During your visit today, we recorded the following information about you: Mahendra Prajapati MA 06/07/2023 2:52 PM Signed Marie presents today for splint removal. Marie's splint was removed and skin cleansed. Marie tolerated this procedure well. Directed Marie and daughter to xray prior to appt w/ Dr. Santos. Mahendra Prajapati MA Splint was removed by Lorraine Yancey RN Referring Provider: MACARIO SANTOS [[id number]] Allergies As of Date: 06/07/2023 Noted Allergy [...] As Of Date 06/07/2023 Noted Resolved diabetes [[id number]] 05/17/2023 Neuropathy [G62.9] Hallux extensus, acquired [M20.5X9] [...] Encounter Status:Closed by MAHENDRA PRAJAPATI on 06/07/23 Normal [facility] XR ANKLE 3V AP/LAT/OBL RTon 06-07-2023 [...] IMPRESSION: Postoperative findings as given the results. Milk Receiver: SUBHASH Transcribe Date/Time: Jun 10 2023 11:03A Dictated by : FANG HOLLOWAY MD This examination was interpreted and the report reviewed and electronically signed by: FANG HOLLOWAY MD on Jun 10 2023 11:06AM EST [id number] Normal [facility] CNOVon 05-27-2023 CNOV Office Visit (ORFWHP ) MARIE SEXTON ([id number]) 1960 F Date Time Provider Department 05/27/23 [...] As Of Date 05/27/2023 Noted Resolved diabetes [PTR0979] 05/17/2023 Neuropathy [G62.9] Hallux extensus, acquired [M20.5X9] [...] Status:Closed by REGI CHERRY MA on 05/27/23 [facility] Bimal 05-24-2023 CNPN Telephone (FVFOPR) MARIE SEXTON ([id number]) 1960 F Date Time Provider Department 05/24/23 [...] Mara Stallworth RN Acute Pain Management Service [facility] Allergies As of Date: 05/24/2023 Noted [...] As Of Date 05/24/2023 Noted Resolved diabetes [[id number]] 05/17/2023 Neuropathy [G62.9] Hallux extensus, acquired [M20.5X9] [...] Encounter Status:Closed by BRIGETTE STALLWORTH on 05/24/23 [facility] 05-23-2023 JOSE ALBERTO Telephone (FVJENNI) MARIE SEXTON ([id number]) 1960 F Date Time Provider Department 05/23/23 KAYLYN LONDON During your visit today, we recorded the following information about you: Kaylyn London APRN.DECORATING SUPERVISOR 05/23/2023 9:41 AM Signed Attempted to call pt to check on status of CADD pump. No answer, left detailed VM. Kaylyn London APRN.DECORATING SUPERVISOR Allergies As of Date: 05/23/2023 Noted Allergy [...] As Of Date 05/23/2023 Noted Resolved diabetes [[id number]] 05/17/2023 Neuropathy [G62.9] Hallux extensus, acquired [M20.5X9] [...] Encounter Status:Closed by KAYLYN LONDON [facility]23[facility] Telephone (FVFOPR) MARIE SEXTON ([id number]) 1960 F Date Time Provider Department 05/19/23 BRIGETTE STALLWORTH FVFOPR During your visit today, we recorded the following information about you: Brigette Stallworth RN 05/19/2023 3:16 PM Signed Pt is POD# 2. S/P Right Leg removal of deep hardware Right Ankle fusion Right subtalar joint fusion Fibular osteotomy right ankle Lyman of bone marrow autograft right leg with [...] Mara Stallworth RN Acute Pain Management Service [facility] Allergies As of Date: 05/19/2023 Noted [...] As Of Date 05/19/2023 Noted Resolved diabetes [[id number]] 05/17/2023 Neuropathy [G62.9] Hallux extensus, acquired [M20.5X9] [...] Encounter Status:Closed by BRIGETTE STALLWORTH on 05/19/23 [facility] CONSULT PROGon 05-18-2023 CONSULT PROG HNO ID: [id number] Author: Donell Khoury PA-C Service: Pain Management Author Type: Physician Procurement Services Manager Type: Consult Progress Note Filed: 05/18/2023 8:35 AM Note Text: PERIPHERAL NERVE CATHETER PROGRESS NOTE PATIENT NAME: Marie Sexton SERVICE DATE: 05/18/2023 SERVICE TIME: 7:28 AM ASSESSMENT Marie Sxeton is a 63 year old female who is POD# 1 Right Leg removal of deep hardware Right Ankle fusion Right subtalar joint fusion Fibular osteotomy right ankle Lyman of bone marrow autograft right leg Patient reports good pain control [address]. Adductor canal and Popliteal PNC running per CADD 0.2% @ 04/18/30. Dilaudid PRN and Roxicodone on board minimal usage with PNC in place. PLAN Continue current pain regimen, will follow. Patient with CADD pumps in place patient may go home with PNC in place and [employer] will call patient daily. SUBJECTIVE CHIEF COMPLAINT: Marie Sexton is a 63 year old female who is POD# 1 Right Leg removal of deep hardware Right Ankle fusion Right subtalar joint fusion Fibular osteotomy right ankle Lyman of bone marrow autograft right leg PRIMARY [...] which included preparing to see the patient, [id number] patient care, completing clinical documentation, obtaining and/or reviewing separately obtained history, performing a medically appropriate examination, counseling and educating the patient/family/caregive r, and communicating results to the patient/family/caregive r. SIGNATURE: Donell Khoury PA-C PATIENT NAME: Marie Sexton DATE: May 18, 2023 TIME: 7:28 AM PAGER/CONTACT #: [facility] [phone] HISTORY PHYSICALon HISTORY PHYSICAL HNO ID: [id number] Author: Alannah Whiteside MD Service: Hospital Medicine Author Type: Physician Type: HANDP Filed: 05/17/2023 10:51 PM Note Text: Hospital Medicine Consult History and Physical PRIMARY SERVICE: HOSPITAL MEDICINE Days: [facility] hospital medicine team pager Evenings: [facility] hospital medicine pager [phone] PATIENT NAME: Marie Sexton DATE of SERVICE: [...] subtalar joint fusion Fibular osteotomy right ankle Lyman of bone marrow autograft right leg SOCIAL [...] TIME: 10:50 PM Discussed with: Patient Normal [facility] ANES POSTPROC EVALon 023 ANES POSTPROC EVAL HNO ID: [id number] Author: Amelia Camara MD Service: Critical Care [...] May 17, 2023 TIME: 3:32 PM CSN: [id number] [facility] ANES PRE-OPon 05-17-2023 ANES PRE-OP HNO ID: [id number] Author: SÁNCHEZ Junior Service: Critical Care Author Type: Sales Development Manager Type: Anesthesia Preprocedure Evaluation Filed: 05/17/2023 8:12 [...] Ankle) - POPLITEAL BLOCK Isto Bone graft; [place] TTC Nail and headless 6.5 and 5.5 screws; [place] Large screw removal (5.0, 6.5) Isto confirmed by José Miguel Bridges - kf 05/11 [place] confirmed with Og Trevino - milena 05/11 Synthes specialty screw removal set ARTHRODESIS [...] and consent discussed: yes. Patient / Responsible Libertarian agrees to proceed: yes Patient / Surrogate [...] Units by INJECTION(UNSPECIFI (more content not included)... [facility] BRIEF OP NOTon 05-17-2023 BRIEF OP NOT HNO ID: [id number] Author: Macario Santos DPM Service: Podiatry Author Type: Physician Type: Brief Op Note Filed: 05/17/2023 10:59 AM Note Text: PODIATRIC SURGERY BRIEF OPERATIVE NOTE LOG ID: [id number] Surgery/Procedure Date: 05/17/2023 Incision/Procedure Start Time: 8:25 AM Incision Close/Procedure End Time: Surgeon(s)/Proceduralis t(s) and Procurement Services Manager(s): Surgeon(s) and Role: * Macario Santos DPM - Primary Physician Procurement Services Manager: Leslie Malick, PA-C Procedure(s): Right Leg removal of deep hardware Right Ankle fusion Right subtalar joint fusion Fibular osteotomy right ankle Lyman of bone marrow autograft right leg Anesthesia: General Findings: Well aligned rearfoot Estimated Blood Loss: 100 mls Specimens: None Complications: NONE Pre-Op/Pre-Procedure Diagnosis: 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 Took bed close to the bathroom and with assistance helped her to the bathroom with a walker (2 person assist). [facility] NURSING PROG HNO ID: [id number] Author: Francesca Young RN Service: Nursing Author [...] overnight. He is putting orders in now. [facility] NURSING PROG HNO ID: [id number] Author: Melodie Lorenzo RN Service: Nursing Author [...] certain she will be okay at home. [facility] NURSING PROG HNO ID: [id number] Author: Brigette E Blatnica, RN Service: Pain Management Author Type: Registered Nurse Type: Nursing Progress Note Filed: 05/17/2023 7:24 AM Note Text: RIGHT popliteal nerve block with catheter RIGHT adductor nerve block with catheter Dr. Smith and Dr. Barbour Patient verbalized understanding of nerve block procedure. [facility] NURSING PROG HNO ID: [id number] Author: Gracie Abraham RN Service: Nursing Author [...] (RECOMMENDATION): None Electronically Signed By: Gracie Abraham [facility] OPERATIVE NOon 05-17-2023 OPERATIVE NO HNO ID: [id number] Author: Macario Santos DPM Service: Podiatry Author Type: Physician Type: Operative Report Filed: 05/17/2023 1:58 PM Note Text: SURGERY OPERATIVE NOTE LOG ID: [id number] Surgery/Procedure Date: 05/17/2023 Incision/Procedure Start Time: 8:25 AM Incision Close/Procedure End Time: 11:33 AM Surgeon(s)/Proceduralis t(s) and Procurement Services Manager(s): Surgeon(s) and Role: * Macario Santos DPM - Primary Physician Procurement Services Manager: Leslie Teresa PA-C PRE-OP/PRE-PROCEDURE DIAGNOSIS: 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 Once this was completed the [place] nail was placed into the leg and [...] available to assist. (more content not included)... [facility] XR ANKLE 2V AP/LAT RTon XR ANKLE 2V AP/LAT RT * * *Final Report* * * DATE OF EXAM: May 17 2023 10:49AM [facility] 5576 - XR ANKLE 2V AP/LAT RT [...] Please see procedure report for complete details. Milk Receiver: SUBHASH Transcribe Date/Time: May 17 2023 2:29P Dictated by : MIGUEL HERNANDEZ MD This examination was interpreted and the report reviewed and electronically signed by: MIGUEL HERNANDEZ MD on May 17 2023 2:33PM EST [id number] [facility] NM CARDIAC PERF STRESS/PHARM on 05-14-2023 NM CARDIAC PERF STRESS/PHARM * * *Final Report* * * DATE OF EXAM: May 14 2023 2:02PM [facility] 0006 - NM CARDIAC PERF STRESS/PHARM / PROCEDURE REASON: Preoperative cardiovascular examination * * * * Physician Interpretation * * * * Stress Commercial Credit Portfolio Manager Report: [facility] Date of service: 05/14/2023 12:27:48 PM Supervising [...] See administered radiotracer and doses below. [facility] [place] Date of service: 05/14/2023 12:27:48 PM Ordering [...] * * * ---- NM CTAC Report: [facility] Date of service: 05/14/2023 12:27:48 PM CTAC interpreting physician: Patrice Dalton MD PATIENT: Name: MARIE SEXTON Age: 63 years Gender: F 1. Incidental Findings from limited non-diagnostic CTAC: - Coronary calcifications visualized. * * * Final * * * ---- Stress ECG Report: [facility] FELIX-2 Date of service: 05/14/2023 12:27:48 PM Ordering physician: DANA GOYAL realty specialist: Rosina Gonzalez Procurement Services Manager: Prem Shields Fellow: Annabelle Woodard MD and [...] 51% of (more content not included)... Normal [facility] PVR ANK/VILCHIS/TOE FRANCESCO VAS LAB on 05-14-2023 PVR ANK/VILCHIS/TOE FRANCESCO VAS LAB Non-Invasive Vascular Laboratory [facility] F30 Lower Extremity Arterial Physiology Study [...] ankle: Normal at rest. Technologist: Mai Khanna T Ordering physician: DANA GOYAL Interpreting physician: Casie Moore MD, CYNTHIA Final CC [employer] [facility] Image : [id number] oDynamicsSISUID See Link below for Image Normal [facility] LEG ARTERIAL PERIPH FRANCESCO V LABon 05-14-2023 LEG ARTERIAL PERIPH FRANCESCO VAS LAB Non-Invasive Vascular Laboratory [facility] F30 Lower Extremity Arterial Duplex Bilateral/Complete [...] DANA GOYAL Interpreting physician: Casie Moore MD, ALEXSANDERVI Final CC [employer] [facility] Image : [id number]. (more content not included)... Normal [facility] HISTORY PHYSICALon HISTORY PHYSICAL HNO ID: [id number] Author: Indiana Clemens PA-C Service: ? Author Type: Physician Procurement Services Manager Type: HANDP Filed: 05/14/2023 4:12 PM Note [...] 160-4.5 mcg/actuati (more content not included)... Normal [facility] CNOVon 05-07-2023 CNOV Office Visit (CARINF ) DARSHANMARIE Pakrs ([id number]) 1960 F Date Time Provider Department 05/07/23 2:00 PM DANA GOYAL During your visit today, we recorded the following information about you: Pulse Blood pressure 68/minute 120/66 Dana Goyal MD 05/07/2023 3:11 PM Signed [facility] V[facility] Thoracic [place] Natalia Shrestha Department of Cardiovascular Medicine SECTION OF INTERVENTIONAL CARDIOLOGY OUTPATIENT VISIT DATE 05/07/2023 OUTPATIENT VISIT TYPE New PRIMARY CARE PHYSICIAN: Collins Andrews ([facility]) [address] [place] [address] REFERRING PHYSICIAN: No referring provider defined for [...] meals. hydrochlorothiazide (more content not included)... Normal [facility] EXN37rb 05-07-2023 ECG01 Ventricular Rate : 6 8 BPM Atrial Rate : 68 BPM P-R Interval : 156 ms QRS Duration : 74 ms Q-T Interval : 394 ms QTC Calculation(Bazett) : 418 ms Calculated P [place] : 55 degrees Calculated R [place] : 52 degrees Calculated T [place] : 64 degrees NORMAL SINUS RHYTHM NORMAL ECG Confirmed by MOIZ MAHER MD ([id number]) on 05/17/2023 10:36:53 AM NAME : MARIE SEXTON PID : [id number] : 1960 Gender : Female Race : [...] : , Acquired by : , Eusebio [facility] Bimal 05-05-2023 CNPN Telephone (ORFWHP) DARSHANMARIE TRINIDAD ([id number]) 1960 F Date Time Provider Department 05/05/23 MACARIO SANTOS [facility] During your visit today, we recorded the following information about you: Pennie Damien Pss 05/05/2023 1:47 PM Signed optical engineering technician spoke to patient with her daughter(Jennifer) regarding [...] As Of Date 05/05/2023 Noted Resolved diabetes [PSE7808] Neuropathy [G62.9] Hallux extensus, acquired [M20.5X9] HTN (hypertension) [I10] IBS (irritable bowel syndrome) [K58.9] Arthritis [M19.90] Diabetic foot ulcer [E11.621, L97.509] 12/21/2013 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 [facility] 04-22-2023 [facility] Office Visit (JAE ) MARIE SEXTON ([id number]) 1960 F Date Time Provider Department 04/22/23 [...] numbness o (more content not included)... Normal [facility] CT ANKLE WO IVCON RIGHTon [facility] CT ANKLE WO IVCON RTon 04-22 CT ANKLE WO IVCON RT * * *Final Report* * * DATE OF EXAM: Apr 22 2023 3:55PM [facility] 0061 - CT ANKLE WO IVCON [...] the right foot and ankle as described. Milk Receiver: PSCB Transcribe Date/Time: Apr 22 2023 4:18P Dictated by : COLLINS BENJAMIN MD This examination was interpreted and the report reviewed and electronically signed by: COLLINS BENJAMIN MD on Apr 22 2023 4:22PM EST [id number] Normal [facility] XR ANKLE 3V AP/LAT/OBL RTon 04-22-2023 XR [...] the hindfoot and midfoot without complication identified. Milk Receiver: SUBHASH Transcribe Date/Time: Apr 23 2023 4:47P Dictated by : RAMIRO PAEZ MD This examination was interpreted and the report reviewed and electronically signed by: RAMIRO PAEZ MD on Apr 23 2023 6:26PM EST [id number] Normal [facility] XR TIBIA FIBULA 2V AP/LAT LT on [...] for the characterization as clinically determined. . Milk Receiver: SUBHASH Transcribe Date/Time: Apr 23 2023 4:49P Dictated by : RAMIRO PAEZ MD This examination was interpreted and the report reviewed and electronically signed by: RAMIRO PAEZ MD on Apr 23 2023 6:29PM EST [id number] Normal [facility] GLUCOSE-POCTon 03-22-2023 Glucose [Mass/Vol] 100 mg/dL High 74 - 99 [facility] Comment on above: Performed By: #### G JONATHAN #### [facility] [address] [place] [address] Glucose Test strip manual (B ld) [Mass/Vol]on 03-22-2023 Glucose [Mass/Vol] 100 mg/dL High 74 - 99 mg/dL [facility] Interpretation and review of laboratory results [facility] Order Reconciliationon 03-22 Order Reconciliation Page 1 Discharge Reconciliation Document Reconciliation Type: Discharge requested on behalf of Fang Rodriguez (Physician) done by Fang Rodriguez (DPM) Discharge - Partial Reconciliation: 22-Mar-2023 13:12 by: Fang Rodriguez (DPM) Discharge - Reconciliation: 22-Mar-2023 13:30 by: Fang Rodriguez (DPM) Home Medications EnteredHOME [...] continued as multivitamin Multiple Vitamins oral tablet Ironside-3 1000 mg oral capsule 1 cap(s) oral twice a day 01-Jun-2022 11:21 Ironside-3 1000 mg oral capsule 1 cap(s) oral twice a day 01-Jun-2022 11:21 Ironside-3 1000 mg oral capsule is continued as Ironside-3 1000 mg oral capsule turmeric 500 mg [...] gram/ D (more content not included)... Normal [facility] RF Unspecified body region L ess than 1 hour Views during surgeryon 03-22-2023 RIS LEGACY CONVERSIONS Conversion, Ge Radiology - 05/21/2023 [facility] Work Phone: Radiology Study observation (narrative) [facility] Work Phone: RF Unspecified body region L ess than 1 hour Views during surgeryOrdered By: Ge Conversion on 03-22-2023 [facility] Patient Profile - Preop v3on 03-19-2023 Patient Profile - Preop v3 Patient Profile - Preop: Initial Info: Patient DemographicsName: MARIE SEXTON Date: 1960 Address: [address] [place] [address] Date/Time [id number] 13:05 Primary Phone [phone] Instructions Givenappropriate clothing, bring responsible adult as the local company intermodal truck driver (procedure may be cancelled if no local company intermodal truck driver), center location, remove jewerly/piercings, time [...] Reactionnot applicable Health Mgmt: [facility] Barriers to Managing Healthnone Relationship/Environ: Lives Withalone Living Arrangementshouse Resource/Environmental Concernsnone Anticipated Transition [place] Services Anticipated at Transitionnone Tobacco Use: Tobacco Useno Pre-op Checklist: Arrival [id number] Arrival Time11:24 Procedure TypeRIGHT ANKLE SUBLUXATION REPAIR/ HARDWARE REMOVAL/ CALCANEAL OSTEOTOMY/ SKIN FLAP CLOSURE WITH C-ARM NPOyes Last Food [id number] 21:00 Last Clear Fluid [id number] 10:00 ID Band On Patientpatient ID (name), [...] Updated: 22-Mar-2023 11:50 by Christopher Caceres) Normal [facility] CBC AND DIFFERENTIALon 03-17 % AUTOMATED IMMATURE GRAN 0.4 % Normal 0.0 - 0.9 [facility] Comment on above: Result Comment: Coni ture Granulocyte Count (IG) includes promyelocytes, myelocytes and metamyelocytes but does not include bands. Percent differential counts (%) should be interpreted in the context of the absolute cell counts (cells/L). Performed By: #### C BCDF ####[facility] [place] [address] Basophils (Bld) [#/Vol] 0.05 10*3/uL Normal 0.00 - 0.10 [facility] Comment on above: Performed By: #### C BCDF ####[facility] [place] [address] Basophils/100 WBC (Bld) 0.6 % Normal 0.0 - 2.0 [facility] Comment on above: Performed By: #### C BCDF ####[address] [address] Eosinophils (Bld) [#/Vol] 0.23 10*3/uL Normal 0.00 - 0.70 [facility] Comment on above: Performed By: #### C BCDF ####[address] [address] Eosinophils/100 WBC (Bld) 2.9 % Normal 0.0 - 6.0 [facility] Comment on above: Performed By: #### C BCDF ####[address] [address] Erythrocyte distribution width (RBC) [Ratio] 12.3 % Normal 11.5 - 14.5 [facility] Comment on above: Performed By: #### C BCDF ####[address] [address] Hematocrit (Bld) [Volume fraction] 40.1 % Normal 36.0 - 46.0 [facility] Comment on above: Performed By: #### C BCDF ####[address] [address] Hemoglobin (Bld) [Mass/Vol] 13.5 g/dL Normal 12.0 - 16.0 [facility] Comment on above: Performed By: #### C BCDF ####[address] [address] Lymphocytes (Bld) [#/Vol] 3.98 10*3/uL Normal 1.20 - 4.80 [facility] Comment on above: Performed By: #### C BCDF ####[address] [address] Lymphocytes/100 WBC (Bld) 50.5 % Normal 13.0 - 44.0 [facility] Comment on above: Performed By: #### C BCDF ####[address] [address] MCHC (RBC) [Mass/Vol] 33.7 g/dL Normal 32.0 - 36.0 [facility] Comment on above: Performed By: #### C BCDF ####[address] [place] [address] MCV (RBC) [Entitic vol] 92 fL Normal 80 - 100 [facility] Comment on above: Performed By: #### C BCDF ####[address] [place] [address] Monocytes (Bld) [#/Vol] 0.53 10*3/uL Normal 0.10 - 1.00 [facility] Comment on above: Performed By: #### C BCDF ####[address] [place] [address] Monocytes/100 WBC (Bld) 6.7 % Normal 2.0 - 10.0 [facility] Comment on above: Performed By: #### C BCDF ####[address] [place] [address] Neutrophils (Bld) [#/Vol] 3.06 10*3/uL Normal 1.20 - 7.70 [facility] Comment on above: Performed By: #### C BCDF ####[address] [place] [address] Neutrophils/100 WBC (Bld) 38.9 % Normal 40.0 - 80.0 [facility] Comment on above: Performed By: #### C BCDF ####[address] [place] [address] NUCLEATED RBC 0.0 /100 WBC Normal 0.0 - 0.0 [facility] Comment on above: Performed By: #### C BCDF ####[address] [place] [address] Platelets (Bld) [#/Vol] 297 10*3/uL Normal 150 - 450 [facility] Comment on above: Performed By: #### C BCDF ####[address] [place] [address] RBC 4.36 x10E12/L Normal 4.00 - 5.20 [facility] Comment on above: Performed By: #### C BCDF ####[address] [place] [address] WBC (Bld) [#/Vol] 7.9 10*3/uL Normal 4.4 - 11.3 [facility] Comment on above: Performed By: #### C BCDF ####[facility] [place] [address] ALBUMIN, URINE SPOTon 2022 ALBUMIN,URINE <7.0 Normal Not Established [facility] Comment on above: Performed By: #### C OVSC #### [facility] [address] [place] [address] ALBUMIN/CREAT RATIO SEE COMMENT Normal 0.0 - 30.0 [facility] Comment on above: Result Comment: One or more analytes used in this calculation is outside of the analytical measurement range. Calculation cannot be performed. Performed By: #### C OVSC #### [facility] [address] [place] [address] CREATININE,URINE 56.3 mg/dL Normal 20.0 - 320.0 [facility] Comment on above: Performed By: #### C OVSC #### [facility] [address] [place] [address] ALBUMIN, URINE SPOTon 2022 ALBUMIN,URINE Canceled Normal [facility] Comment on above: Order Comment: TEST ALBUMIN, URINE SPOT WAS CANCELLED, 02/02/2023 10:27 not collected. Performed By: #### A LBSP #### [facility] [address] [place] [address] ALBUMIN/CREAT RATIO Canceled Normal [facility] Comment on above: Order Comment: TEST ALBUMIN, URINE SPOT WAS CANCELLED, 02/02/2023 10:27 not collected. Performed By: #### A LBSP #### [facility] [address] [place] [address] CREATININE,URINE Canceled Normal [facility] Comment on above: Order Comment: TEST ALBUMIN, URINE SPOT WAS CANCELLED, 02/02/2023 10:27 not collected. Performed By: #### A LBSP #### [address] [address] COMPREHENSIVE PANELon 2022 Albumin [Mass/Vol] 4.6 g/dL Normal 3.4 - 5.0 [facility] Comment on above: Performed By: #### C MP #### [address] [place] [address] ALP [Catalytic activity/Vol] 42 U/L Normal 33 - 136 [facility] Comment on above: Performed By: #### C MP #### [address] [place] [address] ALT [Catalytic activity/Vol] 28 U/L Normal 7 - 45 [facility] Comment on above: Result Comment: Shaista ents treated with Sulfasalazine may generate falsely decreased results for ALT. Performed By: #### C MP #### [address] [place] [address] Anion gap [Moles/Vol] 13 mmol/L Normal 10 - 20 [facility] Comment on above: Performed By: #### C MP #### [address] [place] [address] AST [Catalytic activity/Vol] 20 U/L Normal 9 - 39 [facility] Comment on above: Performed By: #### C MP #### [address] [place] [address] Bilirubin [Mass/Vol] 0.3 mg/dL Normal 0.0 - 1.2 [facility] Comment on above: Performed By: #### C MP #### [address] [place] [address] Calcium [Mass/Vol] 10.0 mg/dL Normal 8.6 - 10.3 [facility] Comment on above: Performed By: #### C MP #### [address] [place] [address] Chloride [Moles/Vol] 103 mmol/L Normal 98 - 107 [facility] Comment on above: Performed By: #### C MP #### [address] [place] [address] Creatinine [Mass/Vol] 1.25 mg/dL High 0.50 - 1.05 [facility] Comment on above: Performed By: #### C MP #### [address] [place] [address] GFR/1.73 sq M.predicted among non-blacks MDRD (S/P/Bld) [Vol rate/Area] 49 mL/min/{1.73_m2} Abnormal >90 [facility] Comment on above: Result Comment: CALC ULATIONS OF ESTIMATED GFR ARE PERFORMED USING THE 2020 CKD-EPI STUDY REFIT EQUATION WITHOUT THE RACE VARIABLE FOR THE IDMS-TRACEABLE CREATININE METHODS. https://jasn.asnjournals.org/content/early//ASN.4887370 988 Performed By: #### C MP #### [address] [place] [address] Glucose [Mass/Vol] 76 mg/dL Normal 74 - 99 [facility] Comment on above: Performed By: #### C MP #### [address] [place] [address] HCO3 (Bld) [Moles/Vol] 28 mmol/L Normal 21 - 32 [facility] Comment on above: Performed By: #### C MP #### [address] [place] [address] Potassium [Moles/Vol] 3.9 mmol/L Normal 3.5 - 5.3 [facility] Comment on above: Performed By: #### C MP #### [address] [place] [address] Protein [Mass/Vol] 7.4 g/dL Normal 6.4 - 8.2 [facility] Comment on above: Performed By: #### C MP #### [address] [place] [address] Sodium [Moles/Vol] 140 mmol/L Normal 136 - 145 [facility] Comment on above: Performed By: #### C MP #### [address] [place] [address] Urea nitrogen [Mass/Vol] 24 mg/dL High 6 - 23 [facility] Comment on above: Performed By: #### C MP #### [address] [place] [address] HEMOGLOBIN A1Con 02-02-2023 Glucose [Mass/Vol] 137 mg/dL Normal [facility] Comment on above: Performed By: #### H BA1E #### [facility] [address] [place] [address] HbA1c (Bld) [Mass fraction] 6.4 % Abnormal [facility] Comment on above: Result Comment: Diag nosis of Diabetes-Adults Non-Diabetic: < or = 5.6% Increased risk for developing diabetes: 5.7-6.4% Diagnostic of diabetes: > or = 6.5% . Monitoring of Diabetes Age (y) Therapeutic Goal (%) Adults: >18 <7.0 Pediatrics: 13-18 <7.5 7-12 <8.0 0- 6 7.5-8.5 [employer]. Diabetes Care 33(S1), Nov 2009. Performed By: #### H BA1E #### [facility] [address] [place] [address] TSHon 02-02-2023 TSH Qn 1.56 m[IU]/L Normal 0.44 - 3.98 [facility] Comment on above: Result Comment: TSH testing is performed using different testing methodology at [facility] than at other [facility]. Direct result comparisons should only be made within the same method. Performed By: #### T SH2 #### [facility] [address] [place] [address] VITAMIN D, 25-HYDROXYon 01-14 VITAMIN D, 25-HYDROXY 49 ng/mL Normal [facility] Comment on above: Result Comment: . DEFICIENCY: < 20 NG/ML INSUFFICIENCY: 20-29 NG/ML SUFFICIENCY: 30-100 NG/ML THIS ASSAY ACCURATELY QUANTIFIES THE SUM OF VITAMIN D3, 25-HYDROXY AND VIT D2,25-HYDROXY. Performed By: #### C OVSC #### [facility] [address] [place] [address] GLUCOSE-POCTon 01-08-2023 Glucose [Mass/Vol] 92 mg/dL Normal 74 - 99 [facility] Comment on above: Performed By: #### G JONATHAN ####[facility] [place] [address] Operative Reports - Jing 01-08-2023 Operative Reports - [employer] SURGEON: Fang Rodriguez DPM MEDICAL BILLING AND CODING INSTRUCTOR: Buzz Dexter, PGY-3. PREOPERATIVE DIAGNOSES: 1. Hardware [...] LOSS: Less than 100 mL. MATERIALS USED: [place] Vitoss and BIO4 bone graft substitute augment [place] dorsal 3.5 locking plate. 7-0 and 5-0 [...] Charcot neuroarthropat (more content not included)... Normal [facility] Order Reconciliationon 01-08 Order Reconciliation Page 1 Discharge Reconciliation Document Reconciliation Type: Discharge requested on behalf of Fang Rodriguez (Physician) done by Fang Rodriguez (DPM) Discharge - Reconciliation: 08-Jan-2023 12:56 by: Fang Rodriguez (FLASH) Home Medications EnteredHOME [...] continued as multivitamin Multiple Vitamins oral tablet Ironside-3 1000 mg oral capsule 1 cap(s) oral twice a day 01-Jun-2022 11:21 Ironside-3 1000 mg oral capsule 1 cap(s) oral twice a day 01-Jun-2022 11:21 Ironside-3 1000 mg oral capsule is continued as Ironside-3 1000 mg oral capsule turmeric 500 mg [...] tablet is (more content not included)... Normal [facility] Surgical Pathology Depar tmenton 01-08-[address] [facility] Surgical Pathology Department Name MARIE SEXTON. Pathologist: NAKUL CAMILO MD Date of Procedure: [...] reviewed this case. Diagnostic interpretation performed at [place] [address] Clinical History: Contracture of joint of both [...] dimension. The largest piece is inscribed with Applied MicroStructuresSHAPE REF [id number] LOT [id number] 07MM X 80M. Additionally received is a blue-canales metal U-shaped piece of hardware with the inscription of [id number]. Soft tissue is not received the specimen. A photograph is been taken. The specimen is for gross examination only. MJR mjr/01/09/2023 [facility] Department of Pathology [address] [place] [address] Normal [facility] Comment on above: Performed By: #### C OVSC #### [address] [place] [address] Patient Profile - Preop v3on 01-07-2023 Patient Profile - Preop v3 Patient Profile - Preop: Initial Info: Patient DemographicsName: DARSHAN April Date: 1960 Address: [address] [place] [address] [place] [address] Date/Time [id number] 12:31 Primary Phone [phone] Call Attemptedattempt 1 Instructions Giventime to arrive [...] Reactionnot applicable Health Mgmt: [facility] Barriers to Managing Healthnone Relationship/Environ: Lives Withalone Living Arrangementshouse Resource/Environmental Concernsnone [facility] An[facility] at [facility] Tobacco Use: Tobacco Useno Pre-op Checklist: Arrival [id number] Arrival Time08:58 Procedure TypeRIGHT GASTROCNEMIUS RECESSION/ SUBTALAR JOINT & MIDFOOT FUSION/ TIBIA PARTIAL EXCISION WITH C-ARM RIGHT FOOT DJO HARDWARE REMOVAL NPOyes Last Food [id number]-0924 20:30 Last Clear Fluid Nprgly22-Kmy-5000 07:45 ID Band On Patientpatient ID (name), allergy, falls risk Consent Signedyes Anesthesia Assessment Completedyes EKG Performedsee results tab Chest X-Ray Performednot ordered Preop Antibioticssent to OR Beta-vita CommentN/A COVID 19 Results in Last 7 daysN/A Glucose Fhxrzs30 Type and Screen Resultedn/a HCG Urine TestN/A [...] 08-Jan-2023 09:18 by Christopher Caceres (RN) Normal [facility] BASIC METABOLIC PANELon 02-2 Anion gap [Moles/Vol] 11 mmol/L Normal 10 - 20 [facility] Comment on above: Performed By: #### B MP #### [facility] [address] [place] [address] Calcium [Mass/Vol] 9.9 mg/dL Normal 8.6 - 10.3 [facility] Comment on above: Performed By: #### B MP #### [address] [address] Chloride [Moles/Vol] 103 mmol/L Normal 98 - 107 [place] [facility] [facility] Comment on above: Performed By: #### B MP #### [address] [address] Creatinine [Mass/Vol] 1.01 mg/dL Normal 0.50 - 1.05 [facility] Comment on above: Performed By: #### B MP #### [address] [address] GFR/1.73 sq M.predicted among non-blacks MDRD (S/P/Bld) [Vol rate/Area] 63 mL/min/{1.73_m2} Normal >90 [facility] Comment on above: Result Comment: CALC ULATIONS OF ESTIMATED GFR ARE PERFORMED USING THE 2020 CKD-EPI STUDY REFIT EQUATION WITHOUT THE RACE VARIABLE FOR THE IDMS-TRACEABLE CREATININE METHODS. https://jasn.asnjournals.org/content//ASN.1196774 988 Performed By: #### B MP #### [facility] [address] [place] [address] Glucose [Mass/Vol] 120 mg/dL High 74 - 99 [facility] Comment on above: Performed By: #### B MP #### [address] [address] HCO3 (Bld) [Moles/Vol] 30 mmol/L Normal 21 - 32 [facility] Comment on above: Performed By: #### B MP #### [facility] [address] [place] [address] Potassium [Moles/Vol] 4.7 mmol/L Normal 3.5 - 5.3 [facility] Comment on above: Performed By: #### B MP #### [address] [address] Sodium [Moles/Vol] 139 mmol/L Normal 136 - 145 [facility] Comment on above: Performed By: #### B MP #### [address] [address] Urea nitrogen [Mass/Vol] 23 mg/dL Normal 6 - 23 [facility] Comment on above: Performed By: #### B MP #### [address] [address] CBC AND DIFFERENTIALon 01-05 % AUTOMATED IMMATURE GRAN 0.2 % Normal 0.0 - 0.9 [facility] Comment on above: Result Comment: Coni ture Granulocyte Count (IG) includes promyelocytes, myelocytes and metamyelocytes but does not include bands. Percent differential counts (%) should be interpreted in the context of the absolute cell counts (cells/L). Performed By: #### C BCDF ####[facility] [place] [address] Basophils (Bld) [#/Vol] 0.05 10*3/uL Normal 0.00 - 0.10 [facility] Comment on above: Performed By: #### C BCDF ####[address] [address] Basophils/100 WBC (Bld) 0.6 % Normal 0.0 - 2.0 [facility] Comment on above: Performed By: #### C BCDF ####[address] [address] Eosinophils (Bld) [#/Vol] 0.24 10*3/uL Normal 0.00 - 0.70 [facility] Comment on above: Performed By: #### C BCDF ####[address] [place] [address] Eosinophils/100 WBC (Bld) 2.8 % Normal 0.0 - 6.0 [facility] Comment on above: Performed By: #### C BCDF ####[address] [place] [address] Erythrocyte distribution width (RBC) [Ratio] 12.8 % Normal 11.5 - 14.5 [facility] Comment on above: Performed By: #### C BCDF ####[address] [place] [address] Hematocrit (Bld) [Volume fraction] 41.1 % Normal 36.0 - 46.0 [facility] Comment on above: Performed By: #### C BCDF ####[address] [address] Hemoglobin (Bld) [Mass/Vol] 13.8 g/dL Normal 12.0 - 16.0 [facility] Comment on above: Performed By: #### C BCDF ####[address] [address] Lymphocytes (Bld) [#/Vol] 3.56 10*3/uL Normal 1.20 - 4.80 [facility] Comment on above: Performed By: #### C BCDF ####[address] [address] Lymphocytes/100 WBC (Bld) 41.4 % Normal 13.0 - 44.0 [facility] Comment on above: Performed By: #### C BCDF ####[address] [address] MCHC (RBC) [Mass/Vol] 33.6 g/dL Normal 32.0 - 36.0 [facility] Comment on above: Performed By: #### C BCDF ####[address] [place] [address] MCV (RBC) [Entitic vol] 90 fL Normal 80 - 100 [facility] Comment on above: Performed By: #### C BCDF ####[address] [address] Monocytes (Bld) [#/Vol] 0.61 10*3/uL Normal 0.10 - 1.00 [facility] Comment on above: Performed By: #### C BCDF ####[address] [address] Monocytes/100 WBC (Bld) 7.1 % Normal 2.0 - 10.0 [facility] Comment on above: Performed By: #### C BCDF ####[address] [address] Neutrophils (Bld) [#/Vol] 4.11 10*3/uL Normal 1.20 - 7.70 [facility] Comment on above: Performed By: #### C BCDF ####[address] [address] Neutrophils/100 WBC (Bld) 47.9 % Normal 40.0 - 80.0 [facility] Comment on above: Performed By: #### C BCDF ####[address] [address] NUCLEATED RBC 0.0 /100 WBC Normal 0.0 - 0.0 [facility] Comment on above: Performed By: #### C BCDF ####[address] [address] Platelets (Bld) [#/Vol] 287 10*3/uL Normal 150 - 450 [facility] Comment on above: Performed By: #### C BCDF ####[address] [address] RBC 4.58 x10E12/L Normal 4.00 - 5.20 [facility] Comment on above: Performed By: #### C BCDF ####[address] [place] [address] WBC (Bld) [#/Vol] 8.6 10*3/uL Normal 4.4 - 11.3 [facility] Comment on above: Performed By: #### C BCDF ####[address] [address] Electrocardiogram 12 Leadon 01-05-2023 Electrocardiogram 12 Lead Ventricular Rate 69 Atrial Rate 69 P-R Interval 144 QRS Duration 70 Q-T Interval 396 QTC Calculation(Bazett) 424 P [place] 60 R [place] 41 T [place] 64 QRS Count 12 Q Onset 220 P Onset 148 P Offset 201 T Offset 418 QTC Fredericia 415 Diagnosis Class Normal Diagnosis Normal sinus rhythm Normal ECG When compared with ECG of 01-JUN-2022 11:38, No significant change was found Confirmed by Javed Bravo ([id number]) on 01/08/2023 3:39:12 PM Normal [facility] GLUCOSE-POCTon 08-21-2022 Glucose [Mass/Vol] 82 mg/dL Normal 74 - 99 [facility] Comment on above: Performed By: #### G JONATHAN #### [facility] [address] [place] [address] Operative [facility] 08-21-2022 Operative Reports - [facility] SURGEON: Fang Rodriguez DPM MEDICAL BILLING AND CODING INSTRUCTOR: Darin Dawn, PGY-2. SECOND LABOR RELATIONS OFFICER: Sirena Oconnor, PGY-3. PREOPERATIVE DIAGNOSES: 1. Anterior [...] Adaptic, gauze, and a slightly compressive short-leg dvfmm-iaw-trvi cast was then applied. The foot was held in dorsiflexed position at this time. The patient was then transferred to the PACU with vital signs stable and vascular status intact. COMPLICATIONS: Significant disease with tendon requiring cadaveric tendon to be used. SPECIMEN: None. Fang Rodriguez DPM EST EST DICTATION NUMBER: [id number] INTERNAL JOB NUMBER: [id number] Electronic Signatures: Fang Rodriguez) (Signed on 28-Aug-2022 08:37) Authored Unsigned, Draft (SYS GENERATED) (Entered on 22-Aug-2022 21:23) Entered Last Updated: 28-Aug-2022 08:37 by Fang Rodriguez) [facility] Order Reconciliationon 08-21 Order Reconciliation [...] continued as multivitamin Multiple Vitamins oral tablet Ironside-3 1000 mg oral capsule 1 cap(s) oral twice a day 01-Jun-2022 11:21 Ironside-3 1000 mg oral capsule 1 cap(s) oral twice a day 01-Jun-2022 11:21 Ironside-3 1000 mg oral capsule is continued as Ironside-3 1000 mg oral capsule turmeric 500 mg [...] mg oral (more content not included)... Normal [facility] Patient Profile - Preop v3on 08-20-2022 Patient Profile - Preop v3 Patient Profile - Preop: Initial Info: Patient DemographicsName: DARSHAN April Date: 1960 Address: [address] [place] [address] [place] [address] Date/Time [id number] 11:43 Primary Phone [phone] Call Attemptedattempt 1 Instructions Giventime to arrive, insurance information, center location, bring responsible adult as the local company intermodal truck driver (procedure may be cancelled if no local company intermodal truck driver), remove jewerly/piercings, appropriate clothing Prep [...] Health: Weight in kg88 kilogram(s) Weight in xnk763 pound(s) Weight Methodstated Height in feet6 feet Height in inches0.95 inch(es) Height in cm185.2 centimeter(s) Height Methodstated BMI (kg/m2)25.656 square meter Patient or Family Member Reaction to Anesthesiano previous reaction Blood Avoidance/Restrictionsn one Previous Transfusion Reactionnot applicable Health Mgmt: [facility] H&P Barriers to Managing Healthnone Relationship/Environ: Lives Withalone Living Arrangementshouse Resource/Environmental Concernsnone Anticipated [facility] Anticipated at Transitionnone Tobacco Use: Tobacco [...] Info, Health Mgmt, Relationship/Environ, Additional Information Britt Ryder) (Signed 20-Aug-2022 11:52) Authored: Initial Info, General Health, Tobacco Use, Additional Information Last Updated: 21-Aug-2022 10:45 by Sabrina Hopkins (RN) Normal [facility] CORONAVIRUS 2019, SCREEN ASY MPTOMATICon 08-13-2022 SARS-CoV-2 (COVID-19) RNA KING+probe Ql (Unsp spec) Not detected Normal Not Detected [facility] Comment on above: Result Comment: . This [...] patient management decisions. Fact sheet for providers: https://www.fda.gov/media/920779/download Fact sheet for patients: https://www.fda.gov/media/817882/download This test has received FDA Emergency Use Authorization (EUA) and has been verified by [facility] ([facility]). This test is only authorized for the duration of time that circumstances exist to justify the authorization of the emergency use of in vitro diagnostic tests for the detection of SARS-CoV-2 virus and/or diagnosis of COVID-19 infection under section 564(b)(1) of the Act, 21 U.S.C. 360bbb-3(b)(1), unless the authorization is terminated or revoked sooner. [facility] is certified under CLIA-88 as qualified to perform high complexity testing. Testing is performed in the [facility] laboratories located at [id number] [place] [address]. Performed By: #### C OVSC #### [facility] [id number] [place] [address]. [place] [address] Covid 19 Resultson 2 SARS-CoV-2 (COVID-19) RNA [...] or Naproxen (Aleve) can also be used. Gevm-ezp-zqojaca cough and cold medicines can be used according to the instructions on the package. Some sbim-aeb-xqwnuls medicines also contain acetaminophen. Make sure you [...] water are not available, use alcohol-based hand magnetic resonance imaging coordinator. Avoid touching your eyes, nose, and mouth [...] 24 chevy (more content not included)... Normal [facility] GLUCOSE-POCTon 08-13-2022 Glucose [Mass/Vol] 160 mg/dL High 74 - 99 [facility] Comment on above: Performed By: #### G JONATHAN #### [facility] [address] [place] [address] Operative Reports - [facility] 08-13-2022 Operative Reports - [employer] SURGEON: Fang Rodriguez DPM LABOR RELATIONS OFFICER: Sirena Oconnor, PGY-3 PREOPERATIVE DIAGNOSES: 1. Broken [...] identified and (more content not included)... Normal [facility] Order Reconciliationon 08-13 Order Reconciliation [...] continued as multivitamin Multiple Vitamins oral tablet Ironside-3 1000 mg oral capsule 1 cap(s) oral twice a day 01-Jun-2022 11:21 Ironside-3 1000 mg oral capsule 1 cap(s) oral twice a day 01-Jun-2022 11:21 Ironside-3 1000 mg oral capsule is continued as Ironside-3 1000 mg oral capsule turmeric 500 mg [...] tab(s) oral (more content not included)... Normal [facility] CORONAVIRUS 2019, SCREEN ASY MPTOMATICon 08-12-2022 Lab Specimen Source Nasal, Nasopharyngeal Normal [facility] Comment on above: Performed By: #### C OVSC #### [facility] [address] [address] [place] [id number] Patient Profile - Preop v3on 08-12-2022 Patient Profile - Preop v3 Patient Profile - Preop: Initial Info: Patient DemographicsName: MAREI SEXTON Date: 1960 Address: [address] [place] [address] [place] [address] Date/Time [id number] 11:51 Primary Phone [phone] Call Attemptedattempt 1 Instructions Giventime to arrive [...] Reactionnot applicable Health Mgmt: Symptoms/Conditions Managed at [facility] H+P Barriers to Managing Healthnone Relationship/Environ: Lives Withspouse Living Arrangementshouse Resource/Environmental Concernsnone Anticipated [facility] Anticipated at [facility] Tobacco Use: Tobacco Useno Pre-op Checklist: Arrival [id number] Arrival Time06:30 Procedure TypeRIGHT MIDFOOT FUSION/ REPAIR SUBLUXED TARSAL JOINT WITH C-ARM RIGHT FOOT HARDWARE REMOVAL NPOyes Last Food [id number] 22:30 Last Clear Fluid [id number]-Rhm-1080 22:30 ID Band On Patientpatient ID (name), [...] Unknown, Active Electronic Signatures: Christopher Caceres) (Signed 13-Aug-2022 06:56) Authored: Initial Info, General Health, Health Mgmt, Relationship/Environ, Tobacco Use, Pre-op Checklist, Additional Information Britt Ryder) (Signed 12-Aug-2022 11:51) Authored: Initial Info, Additional Information Last Updated: 13-Aug-2022 06:56 by Christopher Caceres) Normal [facility] CBC AND DIFFERENTIALon 08-10 % AUTOMATED IMMATURE GRAN 0.4 % Normal 0.0 - 0.9 [facility] Comment on above: Result Comment: Coni ture Granulocyte Count (IG) includes promyelocytes, myelocytes and metamyelocytes but does not include bands. Percent differential counts (%) should be interpreted in the context of the absolute cell counts (cells/L). Performed By: #### C BCDF #### [facility] [address] [place] [address] Basophils (Bld) [#/Vol] 0.05 10*3/uL Normal 0.00 - 0.10 [facility] Comment on above: Performed By: #### C BCDF #### [address] [address] Basophils/100 WBC (Bld) 0.7 % Normal 0.0 - 2.0 [facility] Comment on above: Performed By: #### C BCDF #### [address] [address] Eosinophils (Bld) [#/Vol] 0.20 10*3/uL Normal 0.00 - 0.70 [facility] Comment on above: Performed By: #### C BCDF #### [address] [address] Eosinophils/100 WBC (Bld) 2.6 % Normal 0.0 - 6.0 [facility] Comment on above: Performed By: #### C BCDF #### [address] [address] Erythrocyte distribution width (RBC) [Ratio] 12.9 % Normal 11.5 - 14.5 [facility] Comment on above: Performed By: #### C BCDF #### [address] [address] Hematocrit (Bld) [Volume fraction] 38.5 % Normal 36.0 - 46.0 [facility] Comment on above: Performed By: #### C BCDF #### [address] [address] Hemoglobin (Bld) [Mass/Vol] 12.6 g/dL Normal 12.0 - 16.0 [facility] Comment on above: Performed By: #### C BCDF #### [address] [address] Lymphocytes (Bld) [#/Vol] 2.69 10*3/uL Normal 1.20 - 4.80 [facility] Comment on above: Performed By: #### C BCDF #### [address] [address] Lymphocytes/100 WBC (Bld) 35.6 % Normal 13.0 - 44.0 [facility] Comment on above: Performed By: #### C BCDF #### [address] [address] MCHC (RBC) [Mass/Vol] 32.7 g/dL Normal 32.0 - 36.0 [facility] Comment on above: Performed By: #### C BCDF #### [address] [address] MCV (RBC) [Entitic vol] 90 fL Normal 80 - 100 [facility] Comment on above: Performed By: #### C BCDF #### [address] [address] Monocytes (Bld) [#/Vol] 0.56 10*3/uL Normal 0.10 - 1.00 [facility] Comment on above: Performed By: #### C BCDF #### [address] [address] Monocytes/100 WBC (Bld) 7.4 % Normal 2.0 - 10.0 [facility] Comment on above: Performed By: #### C BCDF #### [address] [address] Neutrophils (Bld) [#/Vol] 4.02 10*3/uL Normal 1.20 - 7.70 [facility] Comment on above: Performed By: #### C BCDF #### [address] [address] Neutrophils/100 WBC (Bld) 53.3 % Normal 40.0 - 80.0 [facility] Comment on above: Performed By: #### C BCDF #### [address] [address] NUCLEATED RBC 0.0 /100 WBC Normal 0.0 - 0.0 [facility] Comment on above: Performed By: #### C BCDF #### [address] [address] Platelets (Bld) [#/Vol] 360 10*3/uL Normal 150 - 450 [facility] Comment on above: Performed By: #### C BCDF #### [facility] [address] [place] [address] RBC 4.27 x10E12/L Normal 4.00 - 5.20 [facility] Comment on above: Performed By: #### C BCDF #### [facility] [address] [place] [address] WBC (Bld) [#/Vol] 7.6 10*3/uL Normal 4.4 - 11.3 [facility] Comment on above: Performed By: #### C BCDF #### [facility] [address] [place] [address] COMPREHENSIVE PANELon 2021 Albumin [Mass/Vol] 4.2 g/dL Normal 3.4 - 5.0 [facility] Comment on above: Performed By: #### C MP #### [facility] [address] [place] [address] ALP [Catalytic activity/Vol] 77 U/L Normal 33 - 136 [facility] Comment on above: Performed By: #### C MP #### [facility] [address] [place] [address] ALT [Catalytic activity/Vol] 14 U/L Normal 7 - 45 [facility] Comment on above: Result Comment: Shaista ents treated with Sulfasalazine may generate falsely decreased results for ALT. Performed By: #### C MP #### [facility] [address] [place] [address] Anion gap [Moles/Vol] 13 mmol/L Normal 10 - 20 [facility] Comment on above: Performed By: #### C MP #### [facility] [address] [place] [address] AST [Catalytic activity/Vol] 18 U/L Normal 9 - 39 [facility] Comment on above: Performed By: #### C MP #### [facility] [address] [place] [address] Bilirubin [Mass/Vol] 0.3 mg/dL Normal 0.0 - 1.2 [facility] Comment on above: Performed By: #### C MP #### [facility] [address] [place] [address] Calcium [Mass/Vol] 10.0 mg/dL Normal 8.6 - 10.6 [facility] Comment on above: Performed By: #### C MP #### [facility] [address] [place] [address] Chloride [Moles/Vol] 105 mmol/L Normal 98 - 107 [facility] Comment on above: Performed By: #### C MP #### [facility] [address] [place] [address] Creatinine [Mass/Vol] 1.14 mg/dL High 0.50 - 1.05 [facility] Comment on above: Performed By: #### C MP #### [facility] [address] [place] [address] GFR/1.73 sq M.predicted among non-blacks MDRD (S/P/Bld) [Vol rate/Area] 55 mL/min/{1.73_m2} Abnormal >90 [facility] Comment on above: Result Comment: CALC ULATIONS OF ESTIMATED GFR ARE PERFORMED USING THE 2020 CKD-EPI STUDY REFIT EQUATION WITHOUT THE RACE VARIABLE FOR THE IDMS-TRACEABLE CREATININE METHODS. https://jasn.asnjournals.org/content//ASN.7154988 988 Performed By: #### C MP #### [facility] [address] [place] [address] Glucose [Mass/Vol] 87 mg/dL Normal 74 - 99 [facility] Comment on above: Performed By: #### C MP #### [facility] [address] [place] [address] HCO3 (Bld) [Moles/Vol] 28 mmol/L Normal 21 - 32 [facility] Comment on above: Performed By: #### C MP #### [facility] [address] [place] [address] Potassium [Moles/Vol] 4.0 mmol/L Normal 3.5 - 5.3 [facility] Comment on above: Performed By: #### C MP #### [facility] [address] [place] [address] Protein [Mass/Vol] 7.5 g/dL Normal 6.4 - 8.2 [facility] Comment on above: Performed By: #### C MP #### [facility] [address] [place] [address] Sodium [Moles/Vol] 142 mmol/L Normal 136 - 145 [facility] Comment on above: Performed By: #### C MP #### [facility] [address] [place] [address] Urea nitrogen [Mass/Vol] 21 mg/dL Normal 6 - 23 [facility] Comment on above: Performed By: #### C MP #### [facility] [address] [place] [address] HEMOGLOBIN A1Con 07-31-2022 Glucose [Mass/Vol] 105 mg/dL Normal [facility] Comment on above: Performed By: #### C OVSC #### [facility] [address] [place] [address] HbA1c (Bld) [Mass fraction] 5.3 % Normal [facility] Comment on above: Result Comment: Diag nosis of Diabetes-Adults Non-Diabetic: < or = 5.6% Increased risk for developing diabetes: 5.7-6.4% Diagnostic of diabetes: > or = 6.5% . Monitoring of Diabetes Age (y) Therapeutic Goal (%) Adults: >18 <7.0 Pediatrics: 13-18 <7.5 7-12 <8.0 0- 6 7.5-8.5 [employer]. Diabetes Care 33(S1), Nov 2009. Performed By: #### C OVSC #### [facility] [address] [place] [address] LDL, DIRECTon 07-31-2022 Cholesterol in LDL [Mass/Vol] 95 mg/dL Normal 0 - 129 [facility] Comment on above: Result Comment: Elev ated levels of LDL cholesterol are recognized as a fisher factor in the development of atherosclerosis and CHD. The direct LDL cholesterol test can be used to assess cardiovascular risk and monitor therapy as a follow up to a lipid profile when triglycerides are significantly elevated. Performed By: #### C OVSC #### [place] [address] [place] [address] LIPID PANEL (CORONARY RISK 2 )on 07-31-2022 Cholesterol [Mass/Vol] 152 mg/dL Normal 0 - 199 [facility] Comment on above: Result Comment: . AGE [...] dosing. Performed By: #### C OVSC #### [facility] [address] [place] [address] Cholesterol in HDL [Mass/Vol] 36.6 mg/dL Abnormal [facility] Comment on above: Result Comment: . AGE VERY LOW LOW NORMAL HIGH 0-19 Y < 35 < 40 40-45 ---- 20-24 Y ---- < 40 >45 ---- >24 Y ---- < 40 40-60 >60 . Performed By: #### C OVSC #### [facility] [address] [place] [address] Cholesterol in LDL [Mass/Vol] 79 mg/dL Normal 0 - 99 [facility] Comment on above: Result Comment: . NEAR BORD AGE DESIRABLE OPTIMAL HIGH HIGH VERY HIGH 0-19 Y 0 - 109 --- 110-129 >/= 130 ---- 20-24 Y 0 - 119 --- 120-159 >/= 160 ---- >24 Y 0 - 99 100-129 130-159 160-189 >/=190 . Performed By: #### C OVSC #### [facility] [address] [place] [address] Cholesterol in VLDL [Mass/Vol] 37 mg/dL Normal 0 - 40 [facility] Comment on above: Performed By: #### C OVSC #### [facility] [address] [place] [address] Cholesterol.total/Ch olesterol in HDL [Mass ratio] 4.2 {ratio} Normal [facility] Comment on above: Result Comment: REF VALUES DESIRABLE < 3.4 HIGH RISK > 5.0 Performed By: #### C OVSC #### [facility] [address] [place] [address] Triglyceride [Mass/Vol] 183 mg/dL High 0 - 149 [facility] Comment on above: Result Comment: . AGE [...] dosing. Performed By: #### C OVSC #### [facility] [address] [place] [address] TSHon 07-31-2022 TSH Qn 1.32 m[IU]/L Normal 0.44 - 3.98 [facility] Comment on above: Result Comment: TSH testing is performed using different testing methodology at [facility] than at other [facility]. Direct result comparisons should only be made within the same method. Performed By: #### A LBSP #### [facility] [address] [place] [address] GLUCOSE-POCTon 06-05-2022 Glucose [Mass/Vol] 128 mg/dL High 74 - 99 [facility] Comment on above: Performed By: #### G JONATHAN #### [facility] [address] [place] [address] Operative Reports [facility] 06[facility]2022 Operative Reports - [employer] SURGEON: Fang Rodriguez, DPM 1ST LABOR RELATIONS OFFICER: Josias Oliverso, PGY-3. 2ND LABOR RELATIONS OFFICER: Ly Sheikh, PGY-2. PREOPERATIVE DIAGNOSES: 1. Right [...] MATERIALS USED: Floyd Iconix and ReelX anchor, [place] TissueMend, DJO SteriShield, DJO subtalar nail, MedShape [...] a tissue protector was inserted and a AdEspresso saber blade was utilized to transect the [...] joint was then distracted with a lamina weaver hand loom and the joint was prepared utilizing a combination of rongeur, osteotome, curette, subchondral drilling and fish scaling was performed until there was healthy bleeding bone. The incision was flushed. It was packed with bone graft substitute mixed with PRP and the joint was then closed in layers with Vicryl and Prolene suture. The subtalar joint nail was then inserted per assessment expert's recommended technique an 80 mm nail along [...] stressed under (more content not included)... Normal [facility] Order Reconciliationon 06-05 Order Reconciliation [...] continued as multivitamin Multiple Vitamins oral tablet Ironside-3 1000 mg oral capsule 1 cap(s) oral twice a day 01-Jun-2022 11:21 Ironside-3 1000 mg oral capsule 1 cap(s) oral twice a day 01-Jun-2022 11:21 Ironside-3 1000 mg oral capsule is continued as Ironside-3 1000 mg oral capsule turmeric 500 mg [...] mg oral (more content not included)... 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 (procedure may be cancelled if no local company intermodal truck driver), center location, remove jewerly/piercings, time to arrive, arrival time of 0800 for 09 surgery Prep Instructions Reviewedyes Prep Typeper office Instructed to Have No Fluids Aftermidnight How to be Addresseddtr Spoken Language PreferredEnglish Source of Informationpatient Stated Reason for Admissionright foot Primary Contact Name and Numberfamily Limitations on Visitors/Phone Callsnone Medications Brought to Hospitalno General Health: Weight in kg89.3 kilogram(s) Weight in phu996.8 pound(s) Weight Methodactual (measured) Scale Typestanding Height [...] child(mehul) Living Arrangementshouse Resource/Environmental Concernsnone Anticipated Transition [facility] Services Anticipated at Transitionnone Tobacco Use: Tobacco Useyes Last Tobacco [id number] Number of Packs per Day1 Pre-op Checklist: Procedure Typeright foot NPOyes Last Food [id number] 19:00 Last Clear Fluid [id number] 07:00 ID Band On Patientpatient ID (name), [...] Tobacco Use, Pre-op Checklist, Additional Information Garland Rivas (RN) (Signed 04-Jun-2022 12:23) Authored: Initial Info, Additional Information Last Updated: 05-Jun-2022 08:36 by Torrie Landaverde (RN) Normal [facility] BASIC METABOLIC PANELon 07-1 Anion gap [Moles/Vol] 12 mmol/L Normal 10 - 20 [facility] Comment on above: Performed By: #### B MP #### [address] [address] Calcium [Mass/Vol] 9.8 mg/dL Normal 8.6 - 10.3 [facility] Comment on above: Performed By: #### B MP #### [address] [address] Chloride [Moles/Vol] 103 mmol/L Normal 98 - 107 [facility] Comment on above: Performed By: #### B MP #### [address] [address] Creatinine [Mass/Vol] 0.94 mg/dL Normal 0.50 - 1.05 [facility] Comment on above: Performed By: #### B MP #### [address] [address] GFR/1.73 sq M.predicted among non-blacks MDRD (S/P/Bld) [Vol rate/Area] 69 mL/min/{1.73_m2} Normal >90 [facility] Comment on above: Result Comment: CALC ULATIONS OF ESTIMATED GFR ARE PERFORMED USING THE 2020 CKD-EPI STUDY REFIT EQUATION WITHOUT THE RACE VARIABLE FOR THE IDMS-TRACEABLE CREATININE METHODS. https://jasn.asnjournals.org/content//ASN.5827901 988 Performed By: #### B MP #### [address] [address] Glucose [Mass/Vol] 129 mg/dL High 74 - 99 [facility] Comment on above: Performed By: #### B MP #### [address] [address] HCO3 (Bld) [Moles/Vol] 28 mmol/L Normal 21 - 32 [facility] Comment on above: Performed By: #### B MP #### [address] [address] Potassium [Moles/Vol] 4.2 mmol/L Normal 3.5 - 5.3 [facility] Comment on above: Performed By: #### B MP #### [address] [address] Sodium [Moles/Vol] 139 mmol/L Normal 136 - 145 [facility] Comment on above: Performed By: #### B MP #### [address] [address] Urea nitrogen [Mass/Vol] 22 mg/dL Normal 6 - 23 [facility] Comment on above: Performed By: #### B MP #### [address] [address] CBC AND DIFFERENTIALon 06-01 % AUTOMATED IMMATURE GRAN 0.4 % Normal 0.0 - 0.9 [facility] Comment on above: Result Comment: Coni ture Granulocyte Count (IG) includes promyelocytes, myelocytes and metamyelocytes but does not include bands. Percent differential counts (%) should be interpreted in the context of the absolute cell counts (cells/L). Performed By: #### C BCDF #### [address] [address] Basophils (Bld) [#/Vol] 0.05 10*3/uL Normal 0.00 - 0.10 [facility] Comment on above: Performed By: #### C BCDF #### [address] [place] [address] Basophils/100 WBC (Bld) 0.7 % Normal 0.0 - 2.0 [facility] Comment on above: Performed By: #### C BCDF #### [facility] [address] [place] [address] Eosinophils (Bld) [#/Vol] 0.21 10*3/uL Normal 0.00 - 0.70 [facility] Comment on above: Performed By: #### C BCDF #### [facility] [address] [place] [address] Eosinophils/100 WBC (Bld) 2.9 % Normal 0.0 - 6.0 [facility] Comment on above: Performed By: #### C BCDF #### [address] [place] [address] Erythrocyte distribution width (RBC) [Ratio] 12.7 % Normal 11.5 - 14.5 [facility] Comment on above: Performed By: #### C BCDF #### [address] [place] [address] Hematocrit (Bld) [Volume fraction] 39.5 % Normal 36.0 - 46.0 [facility] Comment on above: Performed By: #### C BCDF #### [address] [place] [address] Hemoglobin (Bld) [Mass/Vol] 13.4 g/dL Normal 12.0 - 16.0 [facility] Comment on above: Performed By: #### C BCDF #### [address] [place] [address] Lymphocytes (Bld) [#/Vol] 3.00 10*3/uL Normal 1.20 - 4.80 [facility] Comment on above: Performed By: #### C BCDF #### [place] [address] [place] [address] Lymphocytes/100 WBC (Bld) 41.3 % Normal 13.0 - 44.0 [facility] Comment on above: Performed By: #### C BCDF #### [facility] [address] [place] [address] MCHC (RBC) [Mass/Vol] 33.9 g/dL Normal 32.0 - 36.0 [facility] Comment on above: Performed By: #### C BCDF #### [address] [place] [address] MCV (RBC) [Entitic vol] 88 fL Normal 80 - 100 [facility] Comment on above: Performed By: #### C BCDF #### [address] [address] Monocytes (Bld) [#/Vol] 0.52 10*3/uL Normal 0.10 - 1.00 [facility] Comment on above: Performed By: #### C BCDF #### [address] [address] Monocytes/100 WBC (Bld) 7.2 % Normal 2.0 - 10.0 [facility] Comment on above: Performed By: #### C BCDF #### [address] [address] Neutrophils (Bld) [#/Vol] 3.46 10*3/uL Normal 1.20 - 7.70 [facility] Comment on above: Performed By: #### C BCDF #### [address] [address] Neutrophils/100 WBC (Bld) 47.5 % Normal 40.0 - 80.0 [facility] Comment on above: Performed By: #### C BCDF #### [address] [address] NUCLEATED RBC 0.0 /100 WBC Normal 0.0 - 0.0 [facility] Comment on above: Performed By: #### C BCDF #### [address] [address] Platelets (Bld) [#/Vol] 266 10*3/uL Normal 150 - 450 [facility] Comment on above: Performed By: #### C BCDF #### [address] [address] RBC 4.49 x10E12/L Normal 4.00 - 5.20 [facility] Comment on above: Performed By: #### C BCDF #### [address] [address] WBC (Bld) [#/Vol] 7.3 10*3/uL Normal 4.4 - 11.3 [facility] Comment on above: Performed By: #### C BCDF #### [facility] [address] [place] [address] MAMM DIGITAL SCRN BILATERALo n 02-10-2021 MAMM [...] ARMIJO MD Signed Out: 02/10/21 18:21:51 Normal [facility] Hematologyon 03-20-2019 Hematocrit Volume Fraction (Bld) 40.5 % See Below [facility] [employer] Work Phone: Comment on above: Reference Range: 36. 0 - 46.0 Hemoglobin mass conc (Bld) 13.3 g/dL See Below [facility] Work Phone: Comment on above: Reference Range: 12. 0 - 16.0 MCV Entitic volume (RBC) 94 fL 80 - 100 [facility] Work Phone: Platelets #/vol (Bld) 252 {x10E9/L} 150 - 450 [facility] Work Phone: RBC #/vol (Bld) 4.33 {x10E12/L} See Below [facility] Work Phone: Comment on above: Reference Range: 4.0 0 - 5.20 WBC #/vol (Bld) 0.0 {/100_WBC} 0.0-0.0 [facility] Work Phone: WBC #/vol (Bld) 6.6 {x10E9/L} 4.4 - 11.3 [facility] Work Phone: IO Hgb A1Con 03-20-2019 HbA1c (Bld) [Mass fraction] 7.1 % 4.4-6.4% [facility] Work Phone: Lipid Panelon 03-20-2019 Cholesterol in HDL mass conc 35.3 mg/dL Abnormal [facility] Work Phone: Comment on above: . AGE VERY LOW LOW N ORMAL HIGH 0-19 Y < 35 < 40 40-45 ---- 20- 24 Y ---- < 40 >45 ---- >24 Y ---- < 40 40-60 >60. Cholesterol in LDL mass conc 86 mg/dL 0 - 99 [facility] Work Phone: Comment on above: . NEAR BORD AGE JOHNATHON RABLE OPTIMAL HIGH HIGH VERY HIGH 0-19 Y 0 - 109 --- 110-129 >/= 130 ---- 20-24 Y 0 - 119 --- 120-159 >/= 160 ---- >24 Y 0 - 99 100-129 130-159 160-189 >/=190. Cholesterol mass conc 173 mg/dL 0 - 199 [facility] Work Phone: Comment on above: . AGE [...] Cholesterol non HDL mass conc 138 mg/dL [facility] [address] Work Phone: Comment on above: AGE DESIRABLE BORDER LINE HIGH HIGH VERY HIGH 0-19 Y 0 - 119 120 - 144 >/= 145 >/= 160 20-24 Y 0 - 149 150 - 189 >/= 190 ---- >24 Y 30 MG/DL ABOVE LDL CHOLESTEROL GOAL. Cholesterol.total/Ch olesterol in HDL mass ratio 4.9 {ratio} [facility] Work Phone: Comment on above: REF VALUESDESIRABLE < 3.4HIGH RISK > 5.0 Triglyceride mass conc 261 mg/dL above high threshold 0 - 149 [facility] Work Phone: Comment on above: . AGE [...] mg/dL above high threshold 0 - 40 [facility] [address] Work Phone: Metabolic Panelon 03-20-2019 ALP enzyme act/vol 63 U/L 33 - 110 [facility] Work Phone: Anion gap molar conc 13 mmol/L 10 - 20 MP-U [facility] 10[address] Work Phone: Bilirubin mass conc 0.4 mg/dL 0.0 - 1.2 [facility] Work Phone: Calcium mass conc 9.8 mg/dL 8.6 - 10.6 [facility] Work Phone: Chloride molar conc 99 mmol/L 98 - 107 [facility] Work Phone: CO2 molar conc 34 mmol/L above high threshold 21 - 32 [facility] Work Phone: Creatinine mass conc 0.87 mg/dL See Below -[facility] [address] Work Phone: Comment on above: Reference Range: 0.5 0 - 1.05 Glucose mass conc 152 mg/dL above high threshold 74 - 99 [facility] Work Phone: Potassium molar conc 3.7 mmol/L 3.5 - 5.3 MP-U [facility] 1057 Work Phone: Protein mass conc 7.2 g/dL 6.4 - 8.2 [facility] Work Phone: Sodium molar conc 142 mmol/L 136 - 145 [facility] Work Phone: Urea nitrogen mass conc 18 mg/dL 6 - 23 [facility] Work Phone: Otheron 03-20-2019 Albumin Bromocresol purple (BCP) dye binding method mass conc 4.3 g/dL 3.4 - 5.0 [facility] Work Phone: ALT With P-5'-P enzyme act/vol 46 U/L above high threshold 7 - 45 [facility] Work Phone: Comment on above: Patients treated wit h Sulfasalazine may generate falsely decreased results for ALT. AST With P-5'-P enzyme act/vol 32 U/L 9 - 39 [facility] [address] Work Phone: Erythrocyte distribution width Ratio (RBC) 13.2 % See Below [facility] Work Phone: Comment on above: Reference Range: 11. 5 - 14.5 MCHC mass conc (RBC) 32.8 g/dL See Below [facility] Work Phone: Comment on above: Reference Range: 32. 0 - 36.0 >60 >60 [facility] [address] Work Phone: Comment on above: CALCULATIONS OF LUIS MATED GFR ARE PERFORMED USING THE MDRD STUDY EQUATION FOR THE IDMS-TRACEABLE CREATININE METHODS. CLIN CHEM 2007;53:766-72 T4 - Free Thyroxine, Serumon 03-20-2019 T4 free mass conc 1.08 ng/dL See Below [facility] [address] 47[address] Work Phone: Comment on above: Reference Range: 0.7 8 - 1.48 Thyroxine Free testing is performed using different testing methodology at [facility] than at other [facility]. Direct result comparisons should only be made within the same method.. Patients receiving more than 5 mg/day of biotin may have interference in test results. A sample should be taken no sooner than eight hours after previous dose. Contact [phone] for additional information. TSH - Thyroid Stimulating Ho rmone, Serumon 03-20-2019 Thyrotropin Qn 3.22 {mIU/L} See Below [facility] [address] Work Phone: Comment on above: Reference Range: 0.4 4 - 3.98 TSH testing is performed using different testing methodology at [facility] than at other [facility]. Direct result comparisons should only be made within the same method.. Patients receiving more than 5 mg/day of biotin may have interference in test results. A sample should be taken no sooner than eight hours after previous dose. Contact [phone] for additional information. Vital Signs Date Time Vital Sign Value Performing Clinician Jorge duong 05-12-2023 09:24-0400 Body height 185.4 cm Pac 1 Work Phone: [facility] 05-12-2023 09:24-0400 Body temperature 98.2 [degF] Pac 1 Work Phone: [facility] 05-12-2023 09:24-0400 Body weight 91.17 kg Pac 1 Work Phone: [facility] 05-12-2023 09:24-0400 Diastolic blood pressure 79 mm[Hg] Pac 1 Work Phone: [facility] 05-12-2023 09:24-0400 Heart rate 75 /min Pacc 1 Work Phone: [facility] 05-12-2023 09:24-0400 Respiratory rate 18 /min Pacc 1 Work Phone: [facility] 05-12-2023 09:24-0400 SaO2% (BldA) [Mass fraction] 95 % Pacc 1 Work Phone: [facility] 05-12-2023 09:24-0400 Systolic blood pressure 136 mm[Hg] Pacc 1 Work Phone: [facility] 05-07-2023 14:25-0400 Diastolic blood pressure 66 mm[Hg] Dana Goyal MD Work Phone: [facility] 05-07-2023 14:25-0400 Heart rate 68 /min Dana Goyal MD Work Phone: [facility] 05-07-2023 14:25-0400 Systolic blood pressure 120 mm[Hg] Dana Goyal MD Work Phone: [facility] 03-20-2019 11:15-0400 BMI (Body Mass Index) 25.46 kg/m2 Collins Savage [facility] Sa tony & rafaele [facility] [employer] [employer] [facility] Work Phone: 03-20-2019 11:15-0400 Body Temperature 98.7 [degF] Collins Savage [facility] Ely is & [facility] [employer] [facility] Work Phone: 03-20-2019 11:15-0400 Body weight 87.54 kg Collins Savage [facility] Bulmaro s [facility] 1057 Work Phone: 03-20-2019 11:15-0400 BP Diastolic 84 mm[Hg] Collins Savage [facility] Bulmaro s & Roberto [facility] [facility] [address] Work Phone: 03-20-2019 11:15-0400 BP Systolic 126 mm[Hg] Collins [place] [facility] Sarjessicaki s & [facility] [address] Work Phone: 03-20-2019 11:15-0400 BSA (Body Surface Area) 2.12 m2 Collins [place] WANG Bulmaros [facility] Work Phone: 03-20-2019 11:15-0400 Height 185.42 cm Collins [place] WANG Sarjessicaki s [facility] [address] Work Phone: 03-20-2019 11:15-0400 Pulse (Heart Rate) 71 /min Collins Monaenavin WANG Escobar akis & [facility] [address] Work Phone: 03-20-2019 11:15-0400 Pulse Oximetry 96 % Collins Monaenavin [facility] Sarjessicaki s & [facility] [address] Work Phone: 03-20-2019 11:15-0400 Respiratory Rate 14 /min Collins [place] [facility] Saridak is & [facility] [address]57 Work Phone: 03-20-2019 11:15-0400 Weight 87.54 kg Collins [place] WANG Christaki s [facility] [employer] [facility] Work Phone: Encounters Encounter Date Encounter Type Care Provider Facility Start: 03-13-2024 End: 03-14-2024 ambulatory COLLINS ANDREWS [facility] Start: 03-09-2024 End: 03-09-2024 ambulatory Zuhair Grubbs Facility:[facility] Start: 03-09-2024 End: 03-09-2024 ambulatory DPM Zuhair Grubbs Work Phone: [facility] Work Phone: Start: 03-09-2024 End: 03-09-2024 Departed Referred DPM Zuhair Grubbs Work Phone: [facility] Start: 02-28-2024 Refill Macario Mariar Nathanielerty DPM Work Phone: Orthopedics Comment on above: Refill Request Start: 01-25-2024 Refill Sortochandu Mariar Safiaugherty DPM Work Phone: Orthopedics Comment on above: Refill Request Start: 01-17-2024 End: 01-17-2024 ambulatory MACARIO MARIAR ANA LILIA Facility:[facility] Start: 01-10-2024 Refill Sortochandu Mariar Nathanielerty DPM Work Phone: Orthopedics Comment on above: Refill Request Start: 12-29-2023 Refill Sortochandu Mariar Clougherty DPM Work Phone: Medical Records Comment on above: Refill Request Start: 12-08-2023 Refill Sortochandu Mariar Safiaugherty DPM Work Phone: Medical Records Comment on above: Refill Request Start: 11-26-2023 End: 11-27-2023 ambulatory [facility] Start: 11-25-2023 End: 11-25-2023 ambulatory MACARIO MARIAR ANA LILIA Facility:[facility] Start: 11-10-2023 End: 11-10-2023 ambulatory [facility] Facility:[facility] Start: 11-03-2023 Encounter for other preprocedural examination MACARIO SANTOS [facility] Start: 11-03-2023 End: 11-03-2023 ambulatory SORTOCHANDU MARIAR ANA LILIA Facility:[facility] Start: 10-25-2023 Refill Sortochandu Mariar Safiaugherty DPM Work Phone: Orthopedics Comment on above: Refill Request Start: 10-25-2023 Refill Sortochandu Mariar Clougherty DPM Work Phone: Orthopedics Comment on above: Refill Request Start: 10-18-2023 End: 10-19-2023 ambulatory [facility] Facility:[facility] Start: 10-14-2023 End: 11-30-2023 ambulatory MACARIO SANTOS Facility:[facility] Start: 10-11-2023 End: 10-11-2023 ambulatory Nikki Christel RT(R) Radiology Comment on above: Radiology XR Start: 10-11-2023 Patient encounter procedure Nikki Kearney RT(R) [facility] Start: 09-29-2023 Refill Macario Santos DPM Work Phone: Orthopedics Comment on above: Refill Request Start: 09-27-2023 ambulatory Macario Santos DPM Work Phone: Orthopedics Comment on above: Updated X-rays Start: 09-27-2023 E-mail encounter fro m caregiver Macario Santos DPM Work Phone: [facility] Start: 09-06-2023 End: 09-06-2023 ambulatory Gia Kilgore RT(R) Radiology Comment on above: Radiology XR Start: 09-06-2023 End: 09-06-2023 Patient encounter procedure Gia Pawan Kilgore RT(R) [facility] Comment on above: Diabetes mellitus du e to underlying condition with diabetic autonomic neuropathy, with long-term current use of insulin (HCC) (Primary Dx); Post-op pain; Charcot ankle, right; Osteonecrosis (HCC) Start: 08-05-2023 End: 08-05-2023 ambulatory Rosie Elizondo RT(R) Radiology Comment on above: Radiology XR Start: 08-05-2023 Patient encounter procedure Rosie Elizondo RT(R) [facility] Start: 07-28-2023 Orders Only Macario Santos DPM Work Phone: Orthopaedics [place] Comment on above: Disease of bone (Rima teena Dx) Start: 07-21-2023 Refill Macario Santos DPM Work Phone: [facility] Adult Comment on above: Refill Request Start: 07-07-2023 Refill Macario Santos DPM Work Phone: Orthopedics Start: 07-02-2023 End: 07-02-2023 ambulatory MACARIO SANTOS Facility:[facility] Start: 07-02-2023 End: 07-02-2023 Patient encounter procedure Macario Santos DPM Work Phone: [facility] Comment on above: Disorder of bone (Pr imary Dx); Charcot ankle, right Start: 07-02-2023 End: 07-02-2023 Subsequent hospital visit by physician Xr [facility] Radiology Comment on above: Charcot ankle, right [M14.671] Start: 06-17-2023 Refill Macario Santos DPM Work Phone: Medical Records Comment on above: Refill Request Start: 06-07-2023 End: 06-07-2023 ambulatory MACARIO SANTOS Facility:[facility] Start: 06-07-2023 End: 06-07-2023 ambulatory MACARIO SANTOS Facility:[facility] Start: 06-04-2023 Refill Macario Santos DPM Work Phone: Orthopedics Start: 06-02-2023 Refill Macario Santos DPM Work Phone: Medical Records Comment on above: Refill Request Start: 05-27-2023 End: 05-27-2023 ambulatory COLLINS ANDREWS Facility:[facility] Start: 05-27-2023 End: 05-27-2023 Patient encounter procedure Cast Tech Fairivew Work Phone: [facility] Comment on above: Charcot ankle, right (Primary Dx) Start: 05-26-2023 ambulatory Macario Santos DPM Work Phone: [facility] Comment on above: Cast is wet Start: 05-23-2023 Telephone encounter Kaylyn amin ARCHITECTURAL INTERN.DECORATING SUPERVISOR Work Phone: [facility] Adult Comment on above: Follow Up Start: 05-19-2023 Telephone encounter Brigette parks RN [facility] Operating Room Comment on above: Follow Up Start: 05-17-2023 End: 05-18-2023 Evaluation and management of inpatient MACARIO SANTOS Facility:[facility] Start: 05-14-2023 Encounter for preprocedural cardiovascular examination MACARIO SANTOS [facility] Start: 05-14-2023 End: 05-14-2023 ambulatory DANA GOYAL Facility:[facility] Start: 05-14-2023 End: 05-14-2023 Patient encounter status Card Injection Molecular Imagi ng Start: 05-14-2023 End: 05-14-2023 Subsequent hospital visit by physician Card Injection Molecular Imaging Comment on above: Preoperative cardiov ascular examination [Z01.810] Start: 05-14-2023 End: 05-14-2023 ambulatory DANA GOYAL Facility:[facility] Start: 05-12-2023 End: 05-12-2023 Evaluation and management of inpatient MACARIO SANTOS Facility:[facility] Start: 05-12-2023 End: 05-12-2023 Admission to [facility] Pacc Aiken 1 Work Phone: [facility] Start: 05-12-2023 End: 05-12-2023 [facility] Pacc Aiken 1 Work Phone: Pre Anesthesia Comment on above: Pre-op exam (Primary Dx); Diabetes mellitus type 2 with neurological manifestations (HCC); Former smoker; Intermittent asthma without complication, unspecified asthma severity Start: 05-12-2023 End: 05-12-2023 Preprocedural examination done Pacc Aiken 1 Work Phone: Pre Anesthesia Start: 05-07-2023 End: 05-07-2023 ambulatory DANA GOYAL Facility:[facility] Start: 05-07-2023 End: 05-07-2023 Office outpatient new 45 minutes Dana Goyal MD Work Phone: Cardiology Comment on above: PAD (peripheral charity ry disease) (HCC) (Primary Dx); Preoperative cardiovascular examination; Diabetes mellitus type 2 with neurological manifestations (HCC); Former smoker Start: 05-07-2023 End: 05-07-2023 Patient encounter status Dnaa Goyal MD Work Phone: Cardiology Start: 05-05-2023 Orders Only Macario Santos DPM Work Phone: [facility] Comment on above: Osteonecrosis (HCC) (Primary Dx); Charcot ankle, right; Retained orthopedic hardware; Deformity of ankle joint, right Surgical Follow Up Refill Request Start: 05-03-2023 End: 05-03-2023 ambulatory SORTO EFRAIN SANTOS Facility:[facility] Start: 05-03-2023 End: 05-03-2023 Patient encounter procedure Macario Monaedong DPM Work Phone: [facility] Comment on above: Osteonecrosis (HCC) (Primary Dx); Charcot ankle, right; Retained orthopedic hardware Start: 04-22-2023 End: 04-22-2023 ambulatory MACARIO SANTOS Facility:[facility] Start: 04-22-2023 End: 04-22-2023 ambulatory MACARIO SANTOS Facility:[facility] Start: 04-22-2023 End: 04-22-2023 Patient encounter procedure Sortochandu Mariar Safiadong DPM Work Phone: Orthopedics Comment on above: Osteonecrosis (HCC) (Primary Dx); Charcot ankle, right Start: 04-20-2023 Orders Only Sorto Efrain Santos DPM Work Phone: [facility] Comment on above: Charcot's joint of r [...] unspecified ear; Personal history of nicotine dependence; [facility] (current) use of 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 drugs Start: 03-17-[address] Fang Rodriguez Facility:[id number] Start: 03-17-2023 Encounter for preprocedural laboratory examination Dr. Fang Rodriguez [facility] Start: 01-08-2023 End: 01-08-[address] Fang Rodriguez Facility:[id number] Start: 01-05-[address] Fang Rodriguez Facility:[id number] Start: 01-05-2023 Encounter for preprocedural cardiovascular examination Dr. Fang Rodriguez [facility] Start: 08-21-2022 End: 08-21-[address] Fang Rodriguez Facility:[id number] Start: 08-13-2022 End: 08-13-[address] Fang Rodriguez Facility:[id number] Start: 08-10-[address] Fang Rodriguez Facility:[id number] Start: 06-05-2022 End: 06-05-[address] Fang Rodriguez Facility:[id number] Start: 06-01-[address] Fang Rodriguez Facility:[id number] Start: 02-04-2021 End: 02-04-2021 Orders Only Fang Fan Work Phone: [facility] [place] Comment on above: Pain (Primary Dx) Start: 02-23-2020 Patient encounter procedure Collins Savage [facility] Janette & Roberto [facility] 1053 Work Phone: Start: 11-20-2019 Patient encounter procedure Collins Savage [facility] Janette & Roberto [facility] 1054 Work Phone: Start: 08-16-2019 Patient encounter procedure Collins Savage [facility] Janette & [facility] 1057 Work Phone: Start: 06-22-2019 Patient encounter procedure Collins Savage [facility] Work Phone: Start: 03-20-2019 Patient encounter procedure Collins Savage [facility] Janette & Roberto [facility] 1057 Work Phone: Start: 01-26-2019 Nursing evaluation o f patient and report Collins Savage [facility] Janette & Roberto [facility] 1057 Work Phone: Start: 11-04-2018 Patient encounter procedure Collins Savage [facility] Janette & Roberto [facility] 1057 Work Phone: Start: 03-03-2018 Patient encounter procedure Collins Chamberlainlake [facility] Janette & Alisonsahara [facility] 1057 Work Phone: Start: 03-03-2018 Ambulatory Collins Savage [facility] ity:[facility] Start: 07-05-2017 Patient encounter procedure Collins Savage [facility] 10[facility] Work Phone: Start: 03-25-2017 Patient encounter procedure Collins Savage [facility] Janette & Alisonsahara [facility] 1057 Work Phone: Encounter for gynecological examination (general) (routine) without abnormal findings Collins Savage [facility] Janette & Alisonsahara [facility] 1057 Work Phone: Procedures Date Procedure Procedure [...] panel - [place] or Plasma Fang Lanierjesse DPM Work Phone: Start: 07-27-2023 Thyrotropin [Units/v olume] in Serum or Plasma Fang Lanierjesssahara DPM Work Phone: Start: 05-14-2023 Myocardial spect mul tiple studies Dana Goyal MD Work Phone: Start: 03-22-2023 Fluoroscopy up to 1 hour physician/qhp time Fang Lanierjesse DPM Work Phone: Start: 03-22-2023 Glucose [Mass/volume ] in Serum or Plasma Fang Garza Moisee DPM Work Phone: Start: 02-23-2020 Follow-up visit Start: 02-23-2020 CBC W Auto Different ial panel - Blood Collins Savage Start: 02-23-2020 Comprehensive metabo lic 1999 panel Collins Savage Start: 02-23-2020 Lipid panel [...] Work Phone: History of Foot Surgery Khoa cherie Savage Plan of Treatment Date Care Activity Detail Author Start: 03-19-2025 Screening for malignant neoplasm of colon [facility] Start: 11-26-2024 Hepatitis B surface antibody level LDL Cholesterol [facility] Start: 07-27-2024 Hepatitis B surface antibody level LDL Cholesterol [facility] Start: 07-27-2024 Lipid panel Lipid Panel [facility] Start: 07-27-2024 Thyroid stimulating hormone measurement TSH Level [facility] Start: 07-16-2024 Influenza vaccination Influenz a Vaccine (Season Ended) [facility] Start: 05-26-2024 Hemoglobin A1c measurement HbA1C [facility] Start: 05-07-2024 BP CONTROLLED (<130/80) BP CONTROLLED (<130/80) [facility] Start: 05-04-2024 Hemoglobin A1c measurement HbA1C [facility] Start: 01-25-2024 Hemoglobin A1c measurement HbA1C [facility] Start: 11-15-2023 Behavioral Health Screening Behavioral Health Screening [facility] Start: 11-15-2023 Depression Assessment Depression Ass essment [facility] Start: 10-26-2023 Hemoglobin A1c measurement Diabetes: Hemoglobin A1C [facility] Start: 07-16-2023 Covid-19 Vaccine ( season) Covid-19 Vaccine () [facility] Start: 07-16-2023 [facility] Start: 05-07-2023 End: 06-05-2024 NM CARDIAC PERF STRESS/PHARM NM CARDIAC PERF STRESS/PHARM Radiology Routine Preoperative cardiovascular examination Expected: 05/07/2023, Expires: 06/05/2024 [facility] Work Phone: Comment on above: Expected: 05/07/2023 , Expires: 06/05/2024 Start: 05-07-2023 End: 05-07-2024 [facility] Vascular Lab Routine PAD (peripheral artery disease) (HCC) Expected: 05/07/2023, Expires: 05/07/2024 [facility] Work Phone: Comment on above: Expected: 05/07/2023 , Expires: 05/07/2024 Start: 05-07-2023 End: 05-07-2024 US LEG ARTERIAL [facility]IPH [facility] US LEG ARTERIAL PERIPH [facility] Vascular Lab Routine PAD (peripheral artery disease) (HCC) Expected: 05/07/2023, Expires: 05/07/2024 [facility] Work Phone: Comment on above: Expected: 05/07/2023 , Expires: 05/07/2024 Start: 11-15-2022 DEPRESSION ASSESSMENT DEPRESSION ASS ESSMENT [facility] Start: 2021 Hepatitis B Vaccine (1 of 3 - Risk 3-dose series) Hepatitis B Vaccine (1 of 3 - Risk 3-dose series) [facility] Start: 2021 RSV Vaccine (1 - 1-dose 60+ series) RSV Vaccine (1 - 1-dose 60+ series) [facility] Start: 07-16-2020 Influenza vaccination INFLUENZA (#1) [facility] Start: 03-25-2020 Screening for malignant neoplasm of [facility] Start: 02-23-2020 [facility] Ilana tavares [facility] 1058 Work Phone: Start: 09-20-2019 Hemoglobin A1c/Hemoglobin.total in Blood HBA1C [facility] Start: 03-20-2019 MG Breast screening Mamm - Scr eening Mammogram w/ Tomosynthesis [facility] 1054 Work Phone: Start: 03-20-2019 Xray Bone Dens ity, Dexa 1 or More Sites [facility] 1058 Work Phone: Start: 10-13-2014 HbA1c (Bld) [Mass fraction] HBA1C [facility] Start: 2011 Screening for malignant neoplasm of colon [facility] Start: 2011 SHINGRIX VACCINE (1 of 2) SHINGRIX VACCINE (1 of 2) [facility] Start: 2011 Zoster Vaccines (1 o f 2) Zoster Vaccines (1 of 2) [facility] Start: 2006 COLOGUARD (FIT-DNA) COLOGUARD (FIT-D NA) [facility] Start: 2006 Colonoscopy COLONOSCOPY [facility] Start: 2006 COLORECTAL CANCER SCREENING COLORECTAL CANCER SCREENING [facility] Start: [address] COLONOGRAPHY [facility] Start: 2006 FECAL OCCULT BLOOD FECAL OCCULT BLOO D [facility] Start: 2006 Screening for malignant neoplasm of colon [facility] Start: 2006 SIGMOIDOSCOPY SIGMOIDOSCOPY [facility] Start: 2003 PAP TESTING PAP TESTING [facility] Start: 2001 Mammography [facility] Start: 2001 Screening for malignant neoplasm of breast [facility] Start: 1991 HPV TESTING HPV TESTING [facility] Start: 1991 Screening for malignant neoplasm of cervix HPV Testing [facility] Start: 1983 DTaP/Tdap/Td Vaccine s (1 - Tdap) DTaP/Tdap/Td Vaccines (1 - Tdap) [facility] Start: 1982 PAP TESTING PAP TESTING [facility] Start: 1982 Screening for malignant neoplasm of cervix [facility] Start: 02-08-1980 Urine microalbumin profile [facility] Start: 1979 ANNUAL PCP TEAM CHRONIC DISEASE VISIT ANNUAL PCP TEAM CHRONIC DISEASE VISIT [facility] Start: 1979 BP CONTROLLED (<130/80) BP CONTROLLED (<130/80) [facility] Start: 1979 Hepatitis B surface antibody level LDL CHOLESTEROL [facility] Start: 1979 HEPATITIS C SCREENING HEPATITIS C [facility] Start: 1979 Hepatitis C screening Hepatitis C [facility] Start: 1979 HIV SCREENING HIV SCREENING [facility] Start: 1979 HIV screening HIV Screening [facility] Start: 1979 SPIROMETRY SPIROMETRY [facility] Start: 1977 ONE PNEUMOVAX PRIOR TO AGE 65 ONE PNEUMOVAX PRIOR TO AGE 65 [facility] Start: 1973 Adult depression screening assessment DEPRESSION SCREENING [facility] Start: 1971 [object Object] DIABETIC FOOT EXAM C [facility] Start: 1971 Diabetic foot examination [facility] Start: 1971 Glaucoma screening [facility] Start: 1971 Hepatitis B screening URINE ALBUMIN:CREATININE RATIO [facility] Start: 1971 Hepatitis C antibody , confirmatory test DILATED RETINAL EXAM [facility] Start: 1967 PNEUMOCOCCAL (1 - PCV) PNEUMOCOCCAL (1 - PCV) [facility] Start: 1967 Pneumococcal vaccination [facility] Start: 1967 Pneumococcal Vaccine : Pediatrics (0 to 5 Years) and At-Risk Patients (6 to 64 Years) (1 - PCV) Pneumococcal Vaccine: Pediatrics (0 to 5 Years) and At-Risk Patients (6 to 64 Years) (1 - PCV) [facility] Start: 1962 MMR Vaccines (1 of 1 - Standard series) MMR Vaccines (1 of 1 - Standard series) [facility] Start: 1961 COVID-19 VACCINE (#1) COVID-19 VACCI NE (#1) [facility] Start: 1961 HIV screening HIV Screening [facility] Start: 1961 Screening for malignant neoplasm of colon [facility] Start: 1961 Yearly Adult Physical Yearly Adult P hysical [facility] End: 07-31-2024 MRI ANKLE WO IVCON LEFT MRI ANKLE WO IVCON LEFT Radiology Routine Disorder of bone 1 Occurrences starting 07/02/2023 until 07/31/2024 [facility] Work Phone: Comment on above: 1 Occurrences starti ng 07/02/2023 until 07/31/2024 End: 03-06-2022 Radex ankle complete minimum 3 views XR ANKLE GENERAL 3V AP/LAT/OBL BILAT Radiology Routine Pain 1 Occurrences starting 02/05/2021 until 03/06/2022 [facility] Comment on above: 1 Occurrences starti ng 02/05/2021 until 03/06/2022 End: 03-06-2022 Radex foot complete minimum 3 views XR FOOT GENERAL 3V AP/LAT/OBL RT Radiology Routine Pain 1 Occurrences starting 02/05/2021 until 03/06/2022 [facility] Comment on above: 1 Occurrences starti ng 02/05/2021 until 03/06/2022 End: 07-31-2024 XR ANKLE GENERAL 3V AP/LAT/OBL LEFT XR ANKLE GENERAL 3V AP/LAT/OBL LEFT Radiology Routine Disorder of bone 1 Occurrences starting 07/02/2023 until 07/31/2024 [facility] Work Phone: Comment on above: 1 Occurrences starti ng 07/02/2023 until 07/31/2024 End: 05-19-2024 XR ANKLE GENERAL 3V AP/LAT/OBL RIGHT XR ANKLE GENERAL 3V AP/LAT/OBL RIGHT Radiology Routine Charcot's joint of right ankle 1 Occurrences starting 04/20/2023 until 05/19/2024 [facility] Work Phone: Comment on above: 1 Occurrences starti ng 04/20/2023 until 05/19/2024 End: 07-03-2024 XR ANKLE GENERAL 3V AP/LAT/OBL RIGHT XR ANKLE GENERAL 3V AP/LAT/OBL RIGHT Radiology Routine Charcot ankle, right 1 Occurrences starting 06/04/2023 until 07/03/2024 [facility] Work Phone: Comment on above: 1 Occurrences starti ng 06/04/2023 until 07/03/2024 XR ANKLE GENERAL 3V AP/LAT/OBL RIGHT XR ANKLE GENERAL 3V AP/LAT/OBL RIGHT Radiology Routine Charcot ankle, right 07/02/2023 10:35 AM EDT [facility] Work Phone: End: 08-26-2024 XR ANKLE GENERAL 3V AP/LAT/OBL RIGHT XR ANKLE GENERAL 3V AP/LAT/OBL RIGHT Radiology Routine Disease of bone 1 Occurrences starting 07/28/2023 until 08/26/2024 [facility] Work Phone: Comment on above: 1 Occurrences starti ng 07/28/2023 until 08/26/2024 End: 09-28-2024 XR ANKLE GENERAL 3V AP/LAT/OBL RIGHT XR ANKLE GENERAL 3V AP/LAT/OBL RIGHT Radiology Routine Diabetes mellitus due to underlying condition with diabetic autonomic neuropathy, with long-term current use of insulin (HCC) 1 Occurrences starting 08/30/2023 until 09/28/2024 [facility] Work Phone: Comment on above: 1 Occurrences starti ng 08/30/2023 until 09/28/2024 XR ANKLE GENERAL 3V AP/LAT/OBL RIGHT XR ANKLE GENERAL 3V AP/LAT/OBL RIGHT Radiology Routine Diabetes mellitus due to underlying condition with diabetic autonomic neuropathy, with long-term current use of insulin (HCC) 09/06/2023 1:28 PM EDT [facility] Work Phone: End: 10-05-2024 XR FOOT GENERAL 3V AP/LAT/OBL BILATERAL XR FOOT GENERAL 3V AP/LAT/OBL BILATERAL Radiology Routine Diabetes mellitus due to underlying condition with diabetic autonomic neuropathy, with long-term current use of insulin ([facility]) 1 Occurrences starting 09/06/2023 until 10/05/2024 [facility] Work Phone: Comment on above: 1 Occurrences starti ng 09/06/2023 until 10/05/2024 End: 05-19-2024 XR TIBIA FIBULA 2V AP/LAT LEFT XR TIBIA FIBULA 2V AP/LAT LEFT Radiology Routine Leg abscess 1 Occurrences starting 04/20/2023 until 05/19/2024 [facility] Work Phone: Comment on above: 1 Occurrences starti ng 04/20/2023 until 05/19/2024 [facility] [employer] [address] Work Phone: [facility] NEGATED: Highlighted row has been ruled out! Planned Goals not documented [facility] [employer] Work Phone: Payers Date Payer Category Payer Self-pay 2021 Unknown 2021 Unknown [id number] 2020 Medicaid MEDICAID [facility] MEDICAID [id number] 2020-Present Medicaid [id number] 2020 Medicaid MEDICAID [facility] MEDICAID [id number] 2020-Present [phone] [address] [place] [address] Medicaid [id number] 2020 Medicaid [id number] 2016 Medicare MEDICARE MEDICAR E A AND B [id number] 2016-Present [place] Medicare [id number] 2016 Medicare MEDICARE MEDICAR E A AND B [id number] 2016-Present [phone] [address] [address] [place] [address] Medicare [id number] 1961 Unknown [id number] 1961 Unknown [id number] 1961 Unknown [id number] 1961 Unknown [id number] 1961 Unknown [id number] 1961 Unknown [id number] 1961 Unknown [id number] 1961 Unknown [id number] 1961 Unknown [id number] 1961 Unknown [id number] 1961 Unknown [id number] Social History Date Type Detail Facility Start: 06-27-2014 End: 05-12-2023 Tobacco smoking status WAIS Former smoker [facility] End: 04-24-2009 History of tobacco use Current smoker [facility] End: 04-24-2009 History of tobacco use Cigarette Smoker [facility] Start: 06-27-2014 End: 05-07-2023 Cigarettes smoked current (pack per day) - Reported [facility] Start: 06-27-2014 End: 11-25-2023 Alcohol intake Current drinker of alcohol (finding) [facility] Start: 1960 Sex Assigned At Not on file [facility] Exposure to SARS-CoV-2 (event) Not sure [facility] Start: 1960 Sex Assigned At Female [facility] Start: 05-07-2023 End: 05-17-2023 Tobacco use panel [facility] National Score (1-100), lower number is lower risk 81 [facility] Start: 04-20-2023 Gender identity Identifies as female gender (finding) [facility] Tobacco smoking status WAIS Tobacco smoking consumption unknown [facility] Work Phone: Start: 11-03-2023 Alcohol Comment not on a weekly basi s [facility] NEGATED: Highlighted row - Former smoker - [facility] [employer] Work Phone: Medical Equipment Procedure Code [...] PER WEEK. Quantity: 1 Refills: Cynthia Collins Svaage DO Start : 20-Mar-2019 Active 100 Strip [...] 08-Mar-2014 Active 100 Unit Box Start: 03-08-2014 Aqg-Cs-C-Kind Implant - [id number] Start: 06-29-2011 Comment on above: Description: K-WIRE Hin-Jv-Y-Kind Implant - [id number] Start: 04-24-2014 Comment on above: Description: THREADE D GUIDE WIRE Screw Bn 2.4mm 3 0mm Ti Cmf Lag - [id number] Start: 06-29-2011 Comment on above: Description: OSTEOME D CANNULATED SCREW Screw Bn 4mm 44m m Lcp Ti St - [id number] Start: 04-24-2014 Phantom 2.0 Acti vcor Nil [id number] Start: 05-17-2023 Phantom Nail Crossing Screw 5.0mm X 26mm Length Headed [id number] Start: 05-17-2023 Graft, Flexigraf t, Hamstring, Smi Tendinosus, Frozen Case [id number] Start: 12-09-2021 Comment on above: Description: Convert ed from [facility]. Please see archived information for full log information. Paste Mix Plus, 5cc Case [id number] Start: 06-05-2022 Comment on above: Description: Convert ed from [facility] Acute. Please see archived information for full log information. Bone, Cancellous , Crushed, .1-4mm 15cc, Freeze Dried Case [id number] Start: 08-13-2022 Comment on above: Description: Convert ed from [facility]. Please see archived information for full log information. Graft, Flexigraf t, Hamstring, Smi Tendinosus, Frozen Case [id number] Start: 08-21-2022 Comment on above: Description: Convert ed from [facility]. Please see archived information for full log information. 22 Mm Concave Re amer Case [id number] Start: 12-09-2021 Comment on above: Description: Convert ed from [facility]. Please see archived information for full log information. Dynaclip Procedu re Pack Case [id number] Start: 06-05-2022 Comment on above: Description: Convert ed from [facility]. Please see archived information for full log information. 2.7 Overdrill Ca se [id number] Start: 08-13-2022 Comment on above: Description: Convert ed from [facility]. Please see archived information for full log information. Quick Whip Stitc h Case [id number] Start: 08-21-2022 Comment on above: Description: Convert ed from [facility]. Please see archived information for full log information. Cement Simplex Gentamicin Bone High Viscosity 20ml Sterile 40gm - [id number] Start: 11-10-2023 Phantom Nail Crossing Screw [...] status health issues are not documented Disease [facility] 105 Work Phone: Mental Status Date Assessment Result Facility NEGATED: Highlighted row Cognitive function [Interpretation] Cognitive status health issues are not documented Disease [facility] 105 Work Phone: Clinical Notes 05-06-2021 to 11-25-2023 Nikki Kearney RT(Aristides) - 10/11/2023 12:28 PM Macario Sykes DPM - 09/06/2023 2:17 PM EDGia Sanchez, RT(R) - 09/06/2023 1:31 PM Katiuska Rosie Pawan, RT(R) - 08/05/2023 2:15 PM EDT Note Date & Type Note Facility 11-25-2023 Note HNO ID: [id number] Author: MACARIO SANTOS DPM Service: ? Author [...] reflux, constipation, diarrhea, (more content not included)... [facility] 11-10-2023 Note HNO ID: [id number] Author: Donell Boateng Service: Pharmacy Author Type: ? Type: Plan of Care Filed: 11/11/2023 10:18 AM Note Text: PHARMACY BEDSIDE DELIVERY SERVICE Patient Name: Marie Sexton The marked outpatient medications were filled at [facility] and picked up at the pharmacy [...] your Primary Care Provider. Donell Boateng PAGER: [phone] November 11, 2023 10:18 AM [facility] 11-10-2023 Note HNO ID: [id number] Author: Olivia Faulkner APRN.DUMBWAITER OPERATOR Service: Anesthesiology Author Type: Nurse Anti Air Warfare Operations Officer Type: Anesthesia Procedure Notes Filed: 11/10/2023 1:12 PM Note Text: ANESTHESIOLOGY PROCEDURE NOTE Airway General Information Procedure Start Time/Medication Administration: 11/10/2023 1:06 PM Patient location during procedure: OR Patient identity confirmed: arm band and patient Staffing DUMBWAITER OPERATOR: Olivia Faulkner APRN.DUMBWAITER OPERATOR Performed by: LYDIA Indications and Patient Condition [...] November 10, 2023 TIME: 1:11 PM CSN: [id number] [facility] 11-10-2023 Note HNO ID: [id number] Author: Dheeraj Rodrigues DO Service: Pain Management Author Type: Resident Type: Anesthesia Procedure Notes Filed: 11/10/2023 1:01 PM Note Text: Attestation signed by Ramiro Stanely DO at 11/10/2023 1:16 PM Attending Note [...] November 10, 2023 TIME: 1:00 PM CSN: [id number] [facility] 11-10-2023 Note HNO ID: [id number] Author: Dheeraj Rodrigues DO Service: Pain Management [...] November 10, 2023 TIME: 12:57 PM CSN: [id number] [facility] 10-14-2023 Note HNO ID: [id number] Author: Cleo Aragon RT(R) Service: ? Author Type: Software Design Manager Type: Progress Notes Filed: 10/14/2023 11:46 AM [...] RT Dev(R) October 14, 2023 11:44 AM [facility] 10-11-2023 Note HNO ID: [id number] Author: Macario Santos DPM Service: ? Author [...] bilateral. Capillary r (more content not included)... [facility] 10-11-2023 Note HNO ID: [id number] Author: Nikki Kearney RT(R) Service: ? Author [...] RT Amelia(R) October 11, 2023 12:28 PM [facility] 10-11-2023 History of Present illness Narrative Radiology [...] 2023 12:28 PM documented in this encounter [facility] 09-06-2023 Note HNO ID: [id number] Author: Macario Santos DPM Service: ? Author [...] as noted below. (more content not included)... [facility] 09-06-2023 Note HNO ID: [id number] Author: Gia Kilgore RT(R) Service: ? Author [...] RT Marivel(R) September 06, 2023 1:31 PM [facility] 09-06-2023 History of Present illness Narrative Images [...] the right foot and ankle as described. Milk Receiver: SUBAHSH Transcribe Date/Time: Apr 22 2023 4:18P... Last MRI Ankle - Impression Only MRI ANKLE WO IVCON RT Exam End: 04/29/2021 11:40 AM (Final result) Impression: IMPRESSION: POSTERIOR TIBIALIS TENOSYNOVITIS. 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 ABNORMAL APPEARANCES OF THE SPRING LIGAMENT AND CALCANEOFIBULAR LIGAMENT. FINDINGS SUGGESTIVE OF MILD PLANTAR FASCIITIS. DIABETIC MUSCLE ATROPHY. 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 Last MRI Foot - Impression [...] which included preparing to see the patient, [id number] patient care, completing clinical documentation, obtaining and/or reviewing separately obtained history, performing a medically appropriate examination, counseling and educating the patient/family/caregiver, and ordering medications, tests, or procedures. documented in this encounter [facility] 09-06-2023 History of Present illness Narrative [...] 2023 1:31 PM documented in this encounter [facility] 08-05-2023 Note HNO ID: [id number] Author: Macario Santos DPM Service: ? Author [...] Tibial pulses ar (more content not included)... [facility] 08-05-2023 Note HNO ID: [id number] Author: Rosie Elizondo RT(R) Service: ? Author [...] RT Anup(R) August 05, 2023 2:15 PM [facility] 08-05-2023 History of Present illness Narrative Radiology [...] 2023 2:15 PM documented in this encounter [facility] 07-02-2023 Note HNO ID: [id number] Author: Macario Santos DPM Service: ? Author [...] and ROS ob (more content not included)... [facility] 07-02-2023 Note HNO ID: [id number] Author: Omayra Padgett RT(R) Service: ? Author [...] RT Radhames(R) July 02, 2023 10:42 AM [facility] 07-02-2023 History of Present illness Narrative [...] the right foot and ankle as described. Milk Receiver: SUBHASH Transcribe Date/Time: Apr 22 2023 4:18P... Last MRI Ankle - Impression Only MRI ANKLE WO IVCON RT Exam End: 04/29/2021 11:40 AM (Final result) Impression: IMPRESSION: POSTERIOR TIBIALIS TENOSYNOVITIS. 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 ABNORMAL APPEARANCES OF THE SPRING LIGAMENT AND CALCANEOFIBULAR LIGAMENT. FINDINGS SUGGESTIVE OF MILD PLANTAR FASCIITIS. DIABETIC MUSCLE ATROPHY. 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 Last MRI Foot - Impression [...] which included preparing to see the patient, [id number] patient care, completing clinical documentation, obtaining and/or reviewing separately obtained history, performing a medically appropriate examination, counseling and educating the patient/family/caregiver, and ordering medications, tests, or procedures. documented in this encounter [facility] 07-02-2023 History of Present illness Narrative [...] 2023 10:42 AM documented in this encounter [facility] 07-02-2023 Miscellaneous Notes RADIOLOGY SERVICE PROGRESS NOTE DATE OF SERVICE: July 02, 2023 TIME OF SERVICE: 10:03AM EVENT: ARRIVED IN WHEELCHAIR ADDITIONAL EVENT DETAILS: NA SIGNATURE: Francesca Kaur PATIENT NAME: Marie Sexton DATE: July 02, 2023 TIME: 10:12 AM PAGER/CONTACT #: documented in this encounter [facility] 06-07-2023 Note HNO ID: [id number] Author: Mahendra Prajapati MA Service: ? Author Type: Motor Vehicle Or Caravan Salesperson Type: Progress Notes Filed: 06/07/2023 2:52 PM Note Text: Marie presents today for splint removal. Marie's splint was removed and skin cleansed. Marie tolerated this procedure well. Directed Marie and daughter to xray prior to appt w/ Dr. Santos. Mahendra Prajapati MA Splint was removed by Lorraine Yancey RN [facility] 06-07-2023 Note HNO ID: [id number] Author: Macario Santos DPM Service: ? Author [...] anxiety or eula (more content not included)... [facility] 06-07-2023 Note HNO ID: [id number] Author: Sudha Wadsworth RT(R) Service: ? Author [...] RT Rod(R) June 07, 2023 12:07 PM [facility] 06-03-2023 Miscellaneous Notes Message from [employer]: Refills have been requested for the following medications: oxyCODONE-acetaminophen (PERCOCET) 5-325 mg tablet [Dr. Greg Santos] Preferred pharmacy: [facility] [address] [place], [place] [id number] [address] [address] Delivery method: Pickup documented in this encounter [facility] 05-27-2023 Note HNO ID: [id number] Author: Regi Cherry Ma Service: ? Author [...] expressed thanks and understanding. Regi Cherry Ma [facility] 05-27-2023 History of Present illness Narrative [...] Regi Cherry Ma documented in this encounter [facility] 05-26-2023 Miscellaneous Notes Contacted patient and scheduled a Cast room appointment on 05/27/2023. Patient calling in stating that her cast is wet and she is trying to dry it with a blow mccann. She is asking what should she do? Please call patient can be reached at [phone] Thank you documented in this encounter [facility] 05-23-2023 Miscellaneous Notes Attempted to call pt to check on status of CADD pump. No answer, left detailed VM. Kaylyn London APRN.GERALDO documented in this encounter [facility] 05-19-2023 Miscellaneous Notes Pt is POD# 2. S/P Right Leg removal of deep hardware Right Ankle fusion Right subtalar joint fusion Fibular osteotomy right ankle Lyman of bone marrow autograft right leg with [...] Mara Stallworth RN Acute Pain Management Service [facility] documented in this encounter [facility] 05-18-2023 Note HNO ID: [id number] Author: Giselle Nguyen RN Service: Care Management [...] 18, 2023 TIME: 10:00 AM CONTACT #: [phone] [facility] 05-17-2023 Note HNO ID: [id number] Author: Simin Cervantes RPh Service: Pharmacy Author Type: Pharmacist Type: Plan of Care Filed: 05/17/2023 6:43 PM Note Text: PHARMACY MEDICATION REVIEW Patient Name: Marie Sexton : 1960 The following medications were updated within the TRUST MANAGER medication list: Medications ADDED to TRUST MANAGER medication list Oxycodone-acetaminophen Humalog mix 75-25 Medications CHANGED on TRUST MANAGER medication list Gabapentin Fluoxetine Lantus Levothyroxine Medications REMOVED from TRUST MANAGER medication list Trazodone Hydrocodone-acetaminophen Turmeric (duplicate) Symbicort [...] Yes Completed by: Simin Cervantes PharmD All TRUST MANAGER medications addressed by LIP Patient interested in Bedside Delivery Services or using OP Pharmacy at discharge? Unable to assess Preferred outpatient pharmacy: [facility] [address] [place] [address] [facility] [phone] Allergies: Codeine GI Upset Demerol [Meperidine* [...] Facility-Administered Medications: None Simin Cervantes RPh 05/17/2023 [facility] 05-17-2023 Note HNO ID: [id number] Author: Francesca Young RN Service: Nursing Author Type: Registered Nurse Type: Nursing Progress Note Filed: 05/17/2023 3:54 PM Note Text: Report to DEMI Jaffe resuming care of patient. [facility] 05-17-2023 Note HNO ID: [id number] Author: Carlos Barbour MD Service: Anesthesiology Author [...] May 17, 2023 TIME: 1:51 PM CSN: [id number] [facility] 05-17-2023 Note HNO ID: [id number] Author: Carlos Barbour MD Service: Anesthesiology Author [...] specimen collected. Minimal or no blood loss Irinuqee9s/transfer criteria are met upon discharge. SIGNATURE: Carlos Barbour MD PATIENT NAME: Marie Sexton DATE: May 17, 2023 TIME: 1:50 PM CSN: [id number] [facility] 05-17-2023 Note HNO ID: [id number] Author: Ramiro Smith MD Service: Anesthesiology Author [...] May 17, 2023 TIME: 8:19 AM CSN: [id number] [facility] 05-17-2023 Note HNO ID: [id number] Author: Ramiro Smith MD Service: Anesthesiology Author [...] May 17, 2023 TIME: 8:17 AM CSN: [id number] [facility] 05-17-2023 Note HNO ID: [id number] Author: SÁNCHEZ Junior Service: ? Author Type: Sales Development Manager Type: Anesthesia Procedure Notes Filed: 05/17/2023 8:16 [...] not difficult Comments LMA inserted by RITA Foy SIGNATURE: SÁNCHEZ Junior PATIENT NAME: April DATE: May 17, 2023 TIME: 8:15 AM CSN: [id number] [facility] 05-17-2023 Note HNO ID: [id number] Author: Brigette Stallworth RN Service: Pain Management Author Type: Registered Nurse Type: Nursing Progress Note Filed: 05/17/2023 7:40 AM Note Text: Patient tolerated procedure very well. Report to primary nurse. [facility] 05-14-2023 Note HNO ID: [id number] Author: Asha Cueva RT(R) Service: Nuclear Medicine Author Type: Technologist Type: [...] STATUS: Discontinued PROCEDURE TYPE: NM Stress: 13.1mCi Ff89c-Hjxjztj was administered IV for Rest Imaging at 1145 by Juana BUTLER,RT(N). 33.3 mCi Jo54q-Mdflyka was administered IV for Stress Imaging at 1311 by RT Myesha(R). PATIENT DISCHARGED TO: Ambulatory patient, left NM department area. A Diagnostic radioactive procedure has taken place, with no further precautions necessary other than routine body substance precautions. More information regarding radiation safety can be found using this link: [email or web address] rotection %20-%20Diagnostic%20Nuclear%20Med icine%20Procedures.pdf SIGNATURE: RT Genet(R) PATIENT NAME: Aprilrad DATE: May 14, 2023 TIME: 11:48 AM PAGER/CONTACT #: [facility] 05-14-2023 Note HNO ID: [id number] Author: Mai Valencia RN Service: Radiology Author [...] ALLERGIES: Reviewed and unchanged MEDICATIONS REVIEWED BY: Software Sales Consultant PROCEDURE TYPE: NM STRESS: 0.4 mg of [...] safety can be found using this link: [email or web address]%20P rotection %20-%20Diagnostic%20Nuclear%20Med icine%20Procedures.pdf SIGNATURE: Mai Valencia RN PATIENT NAME: April DATE: May 14, 2023 TIME: 1:04 PM PAGER/CONTACT #:[phone] [facility] 05-14-2023 History of Present illness Narrative RADIOLOGY [...] STATUS: Discontinued PROCEDURE TYPE: NM Stress: 13.1mCi Yb88y-Ddbcrou was administered IV for Rest Imaging at 1145 by Juana BUTLER,RT(N). 33.3 mCi Zb18i-Qwkwxmg was administered IV for Stress Imaging at 1311 by RT Myesha(R). PATIENT DISCHARGED TO: Ambulatory patient, left NM department area. A Diagnostic radioactive procedure has taken place, with no further precautions necessary other than routine body substance precautions. More information regarding radiation safety can be found using this link: [email or web address]%20P rotection%20-%20Diagnostic%20Nucl ear%20Medicine%20Procedures.pdf SIGNATURE: Lucero Cruz RT(R) PATIENT NAME: April Darshan DATE: May 14, 2023 TIME: 11:48 AM PAGER/CONTACT #: RADIOLOGY SERVICE PROGRESS NOTE SERVICE DATE: 05/14/2023 SERVICE TIME: 1:04 PM PATIENT IDENTITY VERIFICATION COMPLETED USING TWO (2) STANDARD IDENTIFIERS: Name and Date of confirmed by patient verbally and Name and Date of confirmed by identification band PATIENT GENDER DATA: female ALLERGIES: Reviewed and unchanged MEDICATIONS REVIEWED BY: Software Sales Consultant PROCEDURE TYPE: NM STRESS: 0.4 mg of [...] safety can be found using this link: [email or web address]%20P rotection%20-%20Diagnostic%20Nucl ear%20Medicine%20Procedures.pdf SIGNATURE: Mai Valencia RN PATIENT NAME: April Darshan DATE: May 14, 2023 TIME: 1:04 PM PAGER/CONTACT #:[phone] documented in this encounter [facility] 05-12-2023 Instructions Indiana Clemens PA-C - 05/12/2023 9:32 AM EDT PATIENT PREOPERATIVE INSTRUCTIONS Macario Santos* has scheduled you for your procedure at this surgery center: [facility]: [phone] --[phone] [address]. Please check in on the 1st floor [...] coffee creamer - NO pulp juices (ex. Pendleton juice) Is Patient Diabetic:Yes Preoperative Instructions for [...] Procedures: - YOU MUST HAVE A RESPONSIBLE RIVET MACHINE OPERATOR TAKE YOU HOME. A TIRE SETTER OR SUPERVISOR PRESS ROOM CANNOT BE MADE A RESPONSIBLE RIVET MACHINE OPERATOR. - We recommend that a responsible person [...] Advance Directive, please fax a copy to [phone] or email to for it to be [...] Indiana Clemens PA-C documented in this encounter [facility] 05-12-2023 History and physical note HISTORY [...] fevers. Neuro: No history of TIA's, stroke, SENIOR ENERGY TRADER tumor, impaired sensorium, hemiplegia, paraplegia or quadraplegia. No neurological symptoms or problems. + peripheral neuropathy Respiratory: No history of current cough or dyspnea, or pneumonia in the past 6 weeks. No history of respiratory/pulmonary symptoms or problems. + former smoker + asthma uses inhalers PRN Cardiovascular: No history of HTN requiring medication, no history of angina, CHF, PA, cardiac surgery or stents. Denies rest pain, gangrene or revascularization/amputation for PVD. No history of cardiovascular symptoms or problems. + swelling foot on HCTZ GI: No history of GI symptoms or problems. No history of esophageal varices, recent ascites, or ETOH greater than 2 drinks per day. : No difficulty urinating, nocturia > 1 time per night or hematuria HISTORY DEPARTMENT CHAIR: Negative for abnormal vaginal bleeding, abnormal vaginal [...] TIME: 9:19 AM documented in this encounter [facility] 05-07-2023 Note HNO ID: [id number] Author: Dana Goyal MD Service: ? Author Type: Physician Type: Progress Notes Filed: 05/07/2023 3:11 PM Note Text: Heart, Vascular and Thoracic [place] Natalia Shrestha Department of Cardiovascular Medicine SECTION OF INTERVENTIONAL CARDIOLOGY OUTPATIENT VISIT DATE 05/07/2023 OUTPATIENT VISIT TYPE New PRIMARY CARE PHYSICIAN: Collins Andrews ([facility]) [address] [place] [address] REFERRING PHYSICIAN: No referring provider defined for [...] (SYMBICORT) 160-4.5 mcg/actuatio (more content not included)... [facility] 05-07-2023 History of Present illness Narrative Images from the original note were not included. Heart, Vascular and Thoracic [place] Natalia Shrestha Department of Cardiovascular Medicine SECTION OF INTERVENTIONAL CARDIOLOGY OUTPATIENT VISIT DATE 05/07/2023 OUTPATIENT VISIT TYPE New PRIMARY CARE PHYSICIAN: Collins Andrews ([facility]) [address] [place], [place] [id number] REFERRING PHYSICIAN: No referring provider defined for [...] of Cardiovascular Medicine Heart, Vascular and Thoracic [place] [facility] Office Office Pager [phone] documented in this encounter [facility] 05-05-2023 Miscellaneous Notes optical engineering technician spoke to patient with her daughter(Jennifer) regarding 05/17/23 surgery with . Will also review on 1Casthart. documented in this encounter [facility] 05-03-2023 Note HNO ID: [id number] Author: Macario Santos DPM Service: ? Author [...] are palpable b (more content not included)... [facility] 05-03-2023 History of Present illness Narrative [...] the hindfoot and midfoot without complication identified. Milk Receiver: SUBHASH Transcribe Date/Time: Apr 23 2023 4:47P... Last CT Foot - Impression Only No resulted procedures found. Last CT Ankle - Impression Only CT ANKLE WO IVCON RIGHT Exam End: 04/22/2023 3:55 PM (Final result) Impression: IMPRESSION: Intact postoperative changes of the right foot and ankle as described. Milk Receiver: SUBHASH Transcribe Date/Time: Apr 22 2023 4:18P... Last MRI Ankle - Impression Only MRI ANKLE WO IVCON RT Exam End: 04/29/2021 11:40 AM (Final result) Impression: IMPRESSION: POSTERIOR TIBIALIS TENOSYNOVITIS. 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 ABNORMAL APPEARANCES OF THE SPRING LIGAMENT AND CALCANEOFIBULAR LIGAMENT. FINDINGS SUGGESTIVE OF MILD PLANTAR FASCIITIS. DIABETIC MUSCLE ATROPHY. 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 Last MRI Foot - Impression [...] which included preparing to see the patient, fekq-tz-xuir patient care, completing clinical documentation, obtaining and/or reviewing separately obtained history, performing a medically appropriate examination, counseling and educating the patient/family/caregiver, and ordering medications, tests, or procedures. documented in this encounter [facility] 04-22-2023 Note HNO ID: [id number] Author: RT Moisés(Aristides) Service: ? Author Type: [...] IV DATA: Not applicable SIGNED BY: RT Moisés(R) April 22, 2023 3:56 PM [facility] 04-22-2023 Note HNO ID: [id number] Author: RT Anup(R) Service: ? Author Type: Technologist Type: Progress [...] RT Anup(R) April 22, 2023 2:27 PM [facility] 04-22-2023 Note HNO ID: [id number] Author: Macario Santos DPM Service: ? Author [...] : 28.50 kg/m? Diabetes: Well controlled - April has [...] have confirmed an (more content not included)... [facility] 04-22-2023 History of Present illness Narrative Images [...] the hindfoot and midfoot without complication identified. Milk Receiver: SUBHASH Transcribe Date/Time: Apr 23 2023 4:47P... Last CT Foot - Impression Only No resulted procedures found. Last CT Ankle - Impression Only CT ANKLE WO IVCON RIGHT Exam End: 04/22/2023 3:55 PM (Final result) Impression: IMPRESSION: Intact postoperative changes of the right foot and ankle as described. Milk Receiver: SUBHASH Transcribe Date/Time: Apr 22 2023 4:18P... Last MRI Ankle - Impression Only MRI ANKLE WO IVCON RT Exam End: 04/29/2021 11:40 AM (Final result) Impression: IMPRESSION: POSTERIOR TIBIALIS TENOSYNOVITIS. 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 ABNORMAL APPEARANCES OF THE SPRING LIGAMENT AND CALCANEOFIBULAR LIGAMENT. FINDINGS SUGGESTIVE OF MILD PLANTAR FASCIITIS. DIABETIC MUSCLE ATROPHY. 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 Last MRI Foot - Impression [...] which included preparing to see the patient, tdtm-cp-cnud patient care, completing clinical documentation, obtaining and/or reviewing separately obtained history, performing a medically appropriate examination, counseling and educating the patient/family/caregiver, and ordering medications, tests, or procedures. documented in this encounter [facility] 03-22-2023 Note History & Physical R [...] the note. I personally evaluated the patient [id number] Electronic Signatures: Sirena Oconnor (ALYSAM (Resident)) (Signed 22-Mar-2023 12:37) Authored: History & Physical Reviewed, ERAS, Consent, Note Completion Fang Rodriguez (DPPawan) (Signed 22-Mar-2023 13:06) Authored: Note Completion Co-Signer: History & Physical Reviewed, ERAS, Consent, Note Completion Last Updated: 22-Mar-2023 13:06 by Fang Rodriguez) [facility] 03-22-2023 History and physical note [...] Reviewed, ERAS, Consent, Note Completion Fang Rodriguez (DPM) (Signed 22-Mar-2023 13:06) Authored: Note Completion Co-Signer: History & Physical Reviewed, ERAS, Consent, Note Completion Last Updated: 22-Mar-2023 13:06 by Fang Rodriguez) [facility] 03-22-2023 History and physical note History [...] Physical Reviewed, ERAS, Consent, Note Completion Fang RodriguezDPM) (Signed 22-Mar-2023 13:06) Authored: Note Completion Co-Signer: History & Physical Reviewed, ERAS, Consent, Note Completion Last Updated: 22-Mar-2023 13:06 by Fang Rodriguez (FLASH) documented in this encounter [facility] Work Phone: 08-21-2022 Note History & Physical [...] the note. I personally evaluated the patient [id number] Electronic Signatures: Darin Myers (FLASH (Resident)) (Signed 21-Aug-2022 11:22) Authored: History & Physical Reviewed, ERAS, Consent, Note Completion Fang Rodriguez) (Signed 21-Aug-2022 12:39) Authored: Note Completion Co-Signer: History & Physical Reviewed, ERAS, Consent, Note Completion Last Updated: 21-Aug-2022 12:39 by Fang Rodriguez) [facility] 08-13-2022 Note History & Physical [...] the note. I personally evaluated the patient [id number] Electronic Signatures: Sirena Oconnor (DPM (Resident)) (Signed 13-Aug-2022 06:59) Authored: History & Physical Reviewed, ERAS, Consent, Note Completion Fang Rodriguez (FLASH) (Signed 13-Aug-2022 07:41) Authored: Note Completion Co-Signer: History & Physical Reviewed, ERAS, Consent, Note Completion Last Updated: 13-Aug-2022 07:41 by Fang Rodriguez (FLASH) [facility] 06-05-2022 Note History & Physical [...] the note. I personally evaluated the patient [id number] Electronic Signatures: Ly Sheikh (DPM (Resident)) (Signed 05-Jun-2022 06:50) Authored: History & Physical Reviewed, ERAS, Consent, Note Completion Fang Rodriguez (FLASH) (Signed 05-Jun-2022 09:32) Authored: Note Completion Co-Signer: History & Physical Reviewed, ERAS, Consent, Note Completion Last Updated: 05-Jun-2022 09:32 by Fang Rodriguez (FLASH) [facility] 05-06-2021 History of Past i llness Narrative Problem Noted Date Resolved Date Difficulty walking 05/06/2021 05/17/2023 diabetes 05/17/2023 Arthritis 05/17/2023 documented as of this encounter (statuses as of 05/20/2023) [facility] History of Past illness Narrative* Problem Noted Date Diagnosed Date Resolved Date Difficulty walking 05/06/2021 3 diabetes 05/17/2023 Arthritis 05/17/2023 documented as of this encounter (statuses as of 05/23/2023) [facility] History of Past illness Narrative* Problem Noted Date Diagnosed Date Resolved Date Difficulty walking 05/06/2021 3 diabetes 05/17/2023 Arthritis 05/17/2023 documented as of this encounter (statuses as of 05/27/2023) [facility] History of Past illness Narrative* Problem Noted Date Diagnosed Date Resolved Date Difficulty walking 05/06/2021 3 diabetes 05/17/2023 Arthritis 05/17/2023 documented as of this encounter (statuses as of 05/28/2023) [facility] History of Past illness Narrative* Problem Noted Date Diagnosed Date Resolved Date Difficulty walking 05/06/2021 3 diabetes 05/17/2023 Arthritis 05/17/2023 documented as of this encounter (statuses as of 06/03/2023) [facility] History of Past illness Narrative* Problem Noted Date Diagnosed Date Resolved Date Difficulty walking 05/06/2021 3 diabetes 05/17/2023 Arthritis 05/17/2023 documented as of this encounter (statuses as of 06/04/2023) [facility] of Past illness Narrative* Problem Noted Date Diagnosed Date Resolved Date Difficulty walking 05/06/2021 3 diabetes 05/17/2023 Arthritis 05/17/2023 documented as of this encounter (statuses as of 06/21/2023) [facility] of Past illness Narrative* Problem Noted Date Diagnosed Date Resolved Date Difficulty walking 05/06/2021 3 diabetes 05/17/2023 Arthritis 05/17/2023 documented as of this encounter (statuses as of 07/03/2023) [facility] of Past illness Narrative* Problem Noted Date Diagnosed Date Resolved Date Difficulty walking 05/06/2021 3 diabetes 05/17/2023 Arthritis 05/17/2023 documented as of this encounter (statuses as of 07/05/2023) [facility] of Past illness Narrative* Problem Noted Date Diagnosed Date Resolved Date Difficulty walking 05/06/2021 3 diabetes 05/17/2023 Arthritis 05/17/2023 documented as of this encounter (statuses as of 07/08/2023) [facility] of Past illness Narrative* Problem Noted Date Diagnosed Date Resolved Date Difficulty walking 05/06/2021 3 diabetes 05/17/2023 Arthritis 05/17/2023 documented as of this encounter (statuses as of 07/21/2023) [facility] of [facility] illness Narrative* Problem Noted Date Diagnosed Date Resolved Date Difficulty walking 05/06/2021 3 diabetes 05/17/2023 Arthritis 05/17/2023 documented as of this encounter (statuses as of 07/28/2023) [facility] of [facility] illness Narrative* Problem Noted Date Diagnosed Date Resolved Date Difficulty walking 05/06/2021 3 diabetes 05/17/2023 Arthritis 05/17/2023 documented as of this encounter (statuses as of 08/06/2023) [facility] Narrative* Problem Noted Date Diagnosed Date Resolved Date Difficulty walking 05/06/2021 3 diabetes 05/17/2023 Arthritis 05/17/2023 documented as of this encounter (statuses as of 09/06/2023) [facility] of [facility] Narrative* Problem Noted Date Diagnosed Date Resolved Date Difficulty walking 05/06/2021 3 diabetes 05/17/2023 Arthritis 05/17/2023 documented as of this encounter (statuses as of 09/07/2023) [facility] Narrative* Problem Noted Date Diagnosed Date Resolved Date Difficulty walking 05/06/2021 3 diabetes 05/17/2023 Arthritis 05/17/2023 documented as of this encounter (statuses as of 09/28/2023) [facility] Narrative* Problem Noted Date Diagnosed Date Resolved Date Difficulty walking 05/06/2021 3 diabetes 05/17/2023 Arthritis 05/17/2023 documented as of this encounter (statuses as of 09/30/2023) [facility] of [facility] Narrative* Problem Noted Date Diagnosed Date Resolved Date Difficulty walking 05/06/2021 3 diabetes 05/17/2023 Arthritis 05/17/2023 documented as of this encounter (statuses as of 10/11/2023) [facility] Narrative* Problem Noted Date Diagnosed Date Resolved Date Difficulty walking 05/06/2021 3 diabetes 05/17/2023 Arthritis 05/17/2023 documented as of this encounter (statuses as of 10/27/2023) [facility] of [facility] Narrative* Problem Noted Date Diagnosed Date Resolved Date Difficulty walking 05/06/2021 3 diabetes 05/17/2023 Arthritis 05/17/2023 documented as of this encounter (statuses as of 10/27/2023) [facility] of [facility] Narrative* Problem Noted Date Diagnosed Date Resolved Date Difficulty walking 05/06/2021 3 Diabetic foot ulcer 12/21/2013 11/03/20 23 diabetes 05/17/2023 Arthritis 05/17/2023 documented as of this encounter (statuses as of 12/17/2023) [facility] of Past [facility] Narrative* Problem Noted Date Diagnosed Date Resolved Date Difficulty walking 05/06/2021 3 Diabetic foot ulcer 12/21/2013 11/03/20 23 diabetes 05/17/2023 Arthritis 05/17/2023 documented as of this encounter (statuses as of 12/29/2023) [facility] of Past illness Narrative* Problem Noted Date Diagnosed Date Resolved Date Difficulty walking 05/06/2021 3 Diabetic foot ulcer 12/21/2013 11/03/20 23 diabetes 05/17/2023 Arthritis 05/17/2023 documented as of this encounter (statuses as of 01/11/2024) [facility] of Past illness Narrative* Problem Noted Date Diagnosed Date Resolved Date Difficulty walking 05/06/2021 3 Diabetic foot ulcer 12/21/2013 11/03/20 23 diabetes 05/17/2023 Arthritis 05/17/2023 documented as of this encounter (statuses as of 01/27/2024) [facility] of Past illness Narrative* Problem Noted Date Diagnosed Date Resolved Date Difficulty walking 05/06/2021 3 Diabetic foot ulcer 12/21/2013 11/03/20 23 diabetes 05/17/2023 Arthritis 05/17/2023 documented as of this encounter (statuses as of 03/01/2024) [facility] Charcot's joint of right ankle- Primary Leg abscess Cellulitis and abscess of leg, except foot [facility] Osteonecrosis (HCC)- Primary Aseptic [...] ankle joint, right [facility] Diagnosis Charcot ankle, right- Primary Osteonecrosis (HCC) Aseptic necrosis of bone, site unspecified Charcot ankle, right Retained orthopedic hardware Other postprocedural status Deformity of ankle joint, right [facility]* Diagnosis PAD (peripheral artery disease) (HCC)- [...] ankle joint, right documented [facility]* Diagnosis Pre-op exam- Primary Preoperative examination, [...] ankle joint, right [facility]* Diagnosis Preoperative cardiovascular examination Pre-operative cardiovascular examination Osteonecrosis (HCC) Aseptic necrosis of bone, site unspecified Charcot ankle, right Retained orthopedic hardware Other postprocedural status Deformity of ankle joint, right [facility] Diagnosis Charcot ankle, right- Primary [facility] Diagnosis Charcot ankle, right- Primary Arthritis Arthropathy, unspecified, site unspecified documented [facility]* Diagnosis Charcot ankle, right- Primary documented [facility]* Diagnosis Charcot ankle, right [facility] Diagnosis Charcot ankle, right [facility]* Diagnosis Disorder of bone- Primary Disorder of bone and cartilage, unspecified Charcot ankle, right documented in this encounter [facility] note* Diagnosis Charcot ankle, right documented in this encounter [facility] note* Diagnosis Disease of bone- Primary Disorder of bone and cartilage, unspecified documented in this encounter [facility] note* Diagnosis Diabetes mellitus due to underlying condition with diabetic autonomic neuropathy, with long-term current use of insulin ([facility])- Primary Post-op pain Other acute postoperative pain Charcot ankle, right Osteonecrosis ([facility]) Aseptic necrosis of bone, site unspecified documented in this encounter [facility] note* Diagnosis Post-op pain Other acute postoperative pain documented in this encounter [facility] note* Diagnosis Subluxation of right ankle joint, initial encounter Presence of other specified devices Valgus deformity, not elsewhere classified, right ankle Subluxation of right ankle joint, subsequent encounter Subluxation of left ankle joint, subsequent encounter Hyperlipidemia, unspecified Type 2 diabetes mellitus with diabetic peripheral angiopathy without gangrene ([facility]) Unspecified asthma, uncomplicated Type 2 diabetes mellitus with diabetic polyneuropathy ([facility]) Depression, unspecified Irritable bowel syndrome without diarrhea Hypothyroidism, unspecified Unspecified osteoarthritis, unspecified site Unspecified visual loss Unspecified hearing loss, unspecified ear 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 documented in this encounter [facility] Work Phone: Evaluation note* Diagnosis Post-op pain Other acute postoperative pain documented in this encounter [facility] note* Diagnosis Charcot ankle, right documented in this encounter [facility] note* Diagnosis Charcot ankle, right documented in this encounter [facility] note* Diagnosis Charcot ankle, right documented in this encounter [facility] noteNo assessment information availableBrecksville [facility] Work Phone: Reason for referral (narrative)* Diagnostic Procedure Only (Routine) - Authorized Specialty Diagnoses / Procedures Referred By Perla lyon Referred To Contact XR IMAGING Diagnoses Leg abscess Procedures XR TIBIA FIBULA 2V AP/LAT LEFT RADIOLOGIC EXAMINATION TIBIA & FIBULA 2 VIEWS Macario Santos DPM [address] [place] [address] Xr Imaging Referral ID Status Reason Start Date Expiration Date Visits Requested Visits Authorized [id number] Authorized Auto-Generat ed Referral 04/20/2023 05/19/2024 1 1 * Diagnostic Procedure Only (Routine) - Authorized Specialty Diagnoses / Procedures Referred By Contac t Referred To Contact XR IMAGING Diagnoses Charcot's joint of right ankle Procedures XR ANKLE GENERAL 3V AP/LAT/OBL RIGHT RADEX ANKLE COMPLETE MINIMUM 3 VIEWS Macario Santos DPM [address] [place] [address] Xr Imaging Referral ID Status Reason Start Date Expiration Date Visits Requested Visits Authorized [id number] Authorized Auto-Generat ed Referral 04/20/2023 05/19/2024 1 1 [facility] for referral (narrative)* Diagnostic Procedure Only (Routine) - Authorized Specialty Diagnoses / Procedures Referred By Contac t Referred To Contact MOLECULAR & FUNCTIONAL IMAGING Diagnoses Preoperative cardiovascular examination Procedures NM CARDIAC PERF STRESS/PHARM MYOCARDIAL [place] [address] [place] [address] Molecular [facility] Functional Imaging [address] [place] [address] Referral ID Status Reason Start Date Expiration Date Visits Requested Visits Authorized [id number] Authorized Auto-Generat ed Referral 05/07/2023 06/05/2024 1 1 * Outpatient Procedure (Routine) - Authorized Specialty Diagnoses / Procedures Referred By Contac t Referred To Contact [facility] Diagnoses PAD (peripheral artery disease) (HCC) Procedures US LEG ARTERIAL PERIPH [facility] DUP-SCAN LXTR ART/ARTL [place] [address] [place] [address] [facility] [place] [address] [place] [address] Referral ID Status Reason Start Date Expiration Date Visits Requested Visits Authorized [id number] Authorized Auto-Generat ed Referral 05/07/2023 05/06/2024 1 1 * Outpatient Procedure (Routine) - Authorized Specialty Diagnoses / Procedures Referred By Contac t Referred To Contact [facility] [place] Diagnoses PAD (peripheral artery disease) (HCC) Procedures PVR LEG [facility] LAB NON-INVASIVE PHYSIOLOGIC STUDY EXTREMITY 3 [place] [address] [place] [address] [facility] [address] [place] [address] Referral ID Status Reason Start Date Expiration Date Visits Requested Visits Authorized [id number] Authorized Auto-Generat ed Referral 05/07/2023 05/06/2024 1 1 [facility] for referral (narrative)* Diagnostic Procedure Only (Routine) - Closed Specialty Diagnoses / Procedures Referred By Contac t Referred To Contact MOLECULAR & FUNCTIONAL IMAGING Diagnoses Preoperative cardiovascular examination Procedures NM CARDIAC PERF STRESS/PHARM MYOCARDIAL [place] [address] [place] [address] Molecular [facility] Functional Imaging [address] [place] [address] Referral ID Status Reason Start Date Expiration Date V isits Requested Visits Authorized [id number] Closed Auto-Generate d Referral 05/07/2023 06/05/2024 1 1 [facility] for referral (narrative)* Diagnostic Procedure Only (Routine) - Authorized Specialty Diagnoses / Procedures Referred By Contac t Referred To Contact XR IMAGING Diagnoses Charcot ankle, right Procedures XR ANKLE GENERAL 3V AP/LAT/OBL RIGHT RADEX ANKLE COMPLETE MINIMUM 3 VIEWS Macario Santos DPM [address] [place] [address] Xr Imaging Referral ID Status Reason Start Date Expiration Date Visits Requested Visits Authorized [id number] Authorized Auto-Generat ed Referral 06/04/2023 07/03/2024 1 1 [facility] for referral (narrative)* Diagnostic Procedure Only (Routine) - Authorized Specialty Diagnoses / Procedures Referred By Contac t Referred To Contact XR IMAGING Diagnoses Disease of bone Procedures XR ANKLE GENERAL 3V AP/LAT/OBL RIGHT RADEX ANKLE COMPLETE MINIMUM 3 VIEWS Macario Santos DPM [address] [place] [phone] Xr Imaging [facility] Referral ID Status Reason Start Date Expiration Date Visits Requested Visits Authorized [id number] Authorized Auto-Generat ed Referral 07/28/2023 08/26/2024 1 1 [facility] for referral (narrative)* Diagnostic Procedure Only (Routine) - Pending Review Specialty Diagnoses / Procedures Referred By Contac t Referred To Contact XR IMAGING Diagnoses Diabetes mellitus due to underlying condition with diabetic autonomic neuropathy, with long-term current use of insulin (HCC) Procedures XR FOOT GENERAL 3V AP/LAT/OBL BILATERAL RADEX FOOT COMPLETE MINIMUM 3 VIEWS Macario Santos DPM [address] [place] [phone] [place] [address] Referral ID Status Reason Start Date Expiration Date Visits Requested Visits Authorized [id number] Pending Review Auto-Generat ed Referral 10/05/2024 1 1 * Diagnostic Procedure Only (Routine) - Closed Specialty Diagnoses / Procedures Referred By Contac t Referred To Contact XR IMAGING Diagnoses Diabetes mellitus due to underlying condition with diabetic autonomic neuropathy, with long-term current use of insulin (HCC) Procedures XR ANKLE GENERAL 3V AP/LAT/OBL RIGHT RADEX ANKLE COMPLETE MINIMUM 3 VIEWS Macario Santos DPM [address] [place] [address] [place] [address] Referral ID Status Reason Start Date Expiration Date V isits Requested Visits Authorized [id number] Closed Auto-Generate d Referral 08/30/2023 09/28/2024 1 1 [facility] for visit Narrative* Diagnostic Procedure Only (Routine) - Closed Specialty Diagnoses / Procedures Referred By Perla lyon Referred To Contact XR IMAGING Diagnoses Charcot ankle, right Procedures XR ANKLE GENERAL 3V AP/LAT/OBL RIGHT RADEX ANKLE COMPLETE MINIMUM 3 VIEWS Macario Santos DPM [address] [place] [phone] [place] [address] Referral ID Status Reason Start Date Expiration Date V isits Requested Visits Authorized [id number] Closed Auto-Generate d Referral 07/08/2023 07/06/2024 1 1 [facility] Summary Purpose Family History No Family [...] history of diabetes pawan fischer(V18.0, Z83.3) Status:Active Mother Name Dates Details Family [...] EXTREMITY W/O CONTRAST MATERIAL Macario Santos DPM [address] [place] [phone] Imaging Referral ID Status Reason Start Date Expiration Date V isits Requested Visits Authorized [id number] Closed Auto-Generate d Referral 04/22/2023 05/21/2024 1 1 Specialty Diagnoses / Procedures Referred By Perla lyon Referred To Contact Cardiology Diagnoses Charcot ankle, right Procedures CONSULT TO CARDIOLOGY Macario Santos DPM [address] [place] [address] [place] [address] [place] [id number] Referral ID Status Reason Start Date Expiration Date Visits Requested Visits Authorized [id number] Ref Not Required PCP Requested Referral 05/05/2023 05/04/2024 1 1 Specialty Diagnoses / Procedures Referred By Contac t Referred To Contact MR IMAGING Diagnoses Disorder of bone Procedures MRI ANKLE WO IVCON LEFT MRI ANY JT LOWER EXTREM W/O CONTRAST MATRL Macario Santos DPM [address] [place] [phone] Mr Imaging [place] [address] Referral ID Status Reason Start Date Expiration Date Visits Requested Visits Authorized [id number] Authorized Auto-Generat ed Referral 07/02/2023 07/31/2024 1 1 Specialty Diagnoses / Procedures Referred By Contac t Referred To Contact XR IMAGING Diagnoses Disorder of bone Procedures XR ANKLE GENERAL 3V AP/LAT/OBL LEFT RADEX ANKLE COMPLETE MINIMUM 3 VIEWS Macario [place] DPM [address] [place] [phone] Xr Imaging [place] [address] Referral ID Status Reason Start Date Expiration Date Visits Requested Visits Authorized [id number] Pending Review Auto-Generat ed Referral 07/02/2023 07/31/2024 1 1 Additional Source Comments INFORMATION SOURCE (unrecogn ized section and content) DATE CREATED AUTHOR 05/05/2018 [facility] DATE CREATED AUTHOR AUTHOR'S ORGANIZ ATION 02/23/2020 [place] DATE CREATED AUTHOR AUTHOR'S ORGANIZ ATION 02/11/2021 [facility] DATE CREATED AUTHOR AUTHOR'S ORGANIZ ATION 03/29/2023 [facility] DATE CREATED AUTHOR AUTHOR'S ORGANIZ ATION 07/28/2023 [facility] DATE CREATED AUTHOR AUTHOR'S ORGANIZ ATION 12/07/2023 [facility] DATE CREATED AUTHOR AUTHOR'S ORGANIZ ATION 01/18/2024 [facility] DATE CREATED AUTHOR AUTHOR'S ORGANIZ ATION 03/18/2024 [facility] DATE CREATED AUTHOR AUTHOR'S ORGANIZ ATION 03/18/2024 [facility] Source Comments (unrecognize d section and content) In the event this informatio n is protected by the Federal Confidentiality of Alcohol and Drug Abuse Patient Records regulations: The Federal rules restrict any use of the information to criminally investigate or prosecute any alcohol or drug abuse patient.[facility] event this information is protected by the Federal Confidentiality of Alcohol and Drug Abuse Patient Records regulations: The Federal rules restrict any use of the information to criminally investigate or prosecute any alcohol or drug abuse patient.[facility] the event this information is protected by the Federal Confidentiality of Alcohol and Drug Abuse Patient Records regulations: The Federal rules restrict any use of the information to criminally investigate or prosecute any alcohol or drug abuse patient.[facility] the event this information is protected by the Federal Confidentiality of Alcohol and Drug Abuse Patient Records regulations: The Federal rules restrict any use of the information to criminally investigate or prosecute any alcohol or drug abuse patient.[facility] the event this information is protected by the Federal Confidentiality of Alcohol and Drug Abuse Patient Records regulations: The Federal rules restrict any use of the information to criminally investigate or prosecute any alcohol or drug abuse patient.[facility] the event this information is protected by the Federal Confidentiality of Alcohol and Drug Abuse Patient Records regulations: The Federal rules restrict any use of the information to criminally investigate or prosecute any alcohol or drug abuse patient.[facility] the event this information is protected by the Federal Confidentiality of Alcohol and Drug Abuse Patient Records regulations: The Federal rules restrict any use of the information to criminally investigate or prosecute any alcohol or drug abuse patient.[facility] the event this information is protected by the Federal Confidentiality of Alcohol and Drug Abuse Patient Records regulations: The Federal rules restrict any use of the information to criminally investigate or prosecute any alcohol or drug abuse patient.[facility] the event this information is protected by the Federal Confidentiality of Alcohol and Drug Abuse Patient Records regulations: The Federal rules restrict any use of the information to criminally investigate or prosecute any alcohol or drug abuse patient.[facility] the event this information is protected by the Federal Confidentiality of Alcohol and Drug Abuse Patient Records regulations: The Federal rules restrict any use of the information to criminally investigate or prosecute any alcohol or drug abuse patient.[facility] HospitalIn the event this information is protected by the Federal Confidentiality of Alcohol and Drug Abuse Patient Records regulations: The Federal rules restrict any use of the information to criminally investigate or prosecute any alcohol or drug abuse patient.[facility] HospitalIn the event this information is protected by the Federal Confidentiality of Alcohol and Drug Abuse Patient Records regulations: The Federal rules restrict any use of the information to criminally investigate or prosecute any alcohol or drug abuse patient.[facility] HospitalIn the event this information is protected by the Federal Confidentiality of Alcohol and Drug Abuse Patient Records regulations: The Federal rules restrict any use of the information to criminally investigate or prosecute any alcohol or drug abuse patient.[facility] HospitalIn the event this information is protected by the Federal Confidentiality of Alcohol and Drug Abuse Patient Records regulations: The Federal rules restrict any use of the information to criminally investigate or prosecute any alcohol or drug abuse patient.[facility] HospitalIn the event this information is protected by the Federal Confidentiality of Alcohol and Drug Abuse Patient Records regulations: The Federal rules restrict any use of the information to criminally investigate or prosecute any alcohol or drug abuse patient.[facility] HospitalIn the event this information is protected by the Federal Confidentiality of Alcohol and Drug Abuse Patient Records regulations: The Federal rules restrict any use of the information to criminally investigate or prosecute any alcohol or drug abuse patient.[facility] HospitalIn the event this information is protected by the Federal Confidentiality of Alcohol and Drug Abuse Patient Records regulations: The Federal rules restrict any use of the information to criminally investigate or prosecute any alcohol or drug abuse patient.[facility] HospitalIn the event this information is protected by the Federal Confidentiality of Alcohol and Drug Abuse Patient Records regulations: The Federal rules restrict any use of the information to criminally investigate or prosecute any alcohol or drug abuse patient.[facility] HospitalIn the event this information is protected by the Federal Confidentiality of Alcohol and Drug Abuse Patient Records regulations: The Federal rules restrict any use of the information to criminally investigate or prosecute any alcohol or drug abuse patient.[facility] HospitalIn the event this information is protected by the Federal Confidentiality of Alcohol and Drug Abuse Patient Records regulations: The Federal rules restrict any use of the information to criminally investigate or prosecute any alcohol or drug abuse patient.[facility] HospitalIn the event this information is protected by the Federal Confidentiality of Alcohol and Drug Abuse Patient Records regulations: The Federal rules restrict any use of the information to criminally investigate or prosecute any alcohol or drug abuse patient.[facility] HospitalIn the event this information is protected by the Federal Confidentiality of Alcohol and Drug Abuse Patient Records regulations: The Federal rules restrict any use of the information to criminally investigate or prosecute any alcohol or drug abuse patient.[facility] HospitalIn the event this information is protected by the Federal Confidentiality of Alcohol and Drug Abuse Patient Records regulations: The Federal rules restrict any use of the information to criminally investigate or prosecute any alcohol or drug abuse patient.[facility] HospitalIn the event this information is protected by the Federal Confidentiality of Alcohol and Drug Abuse Patient Records regulations: The Federal rules restrict any use of the information to criminally investigate or prosecute any alcohol or drug abuse patient.[facility] HospitalIn the event this information is protected by the Federal Confidentiality of Alcohol and Drug Abuse Patient Records regulations: The Federal rules restrict any use of the information to criminally investigate or prosecute any alcohol or drug abuse patient.[facility] HospitalIn the event this information is protected by the Federal Confidentiality of Alcohol and Drug Abuse Patient Records regulations: The Federal rules restrict any use of the information to criminally investigate or prosecute any alcohol or drug abuse patient.[facility] HospitalIn the event this information is protected by the Federal Confidentiality of Alcohol and Drug Abuse Patient Records regulations: The Federal rules restrict any use of the information to criminally investigate or prosecute any alcohol or drug abuse patient.[facility]In the event this information is protected by the Federal Confidentiality of Alcohol and Drug Abuse Patient Records regulations: The Federal rules restrict any use of the information to criminally investigate or prosecute any alcohol or drug abuse patient.[facility] HospitalIn the event this information is protected by the Federal Confidentiality of Alcohol and Drug Abuse Patient Records regulations: The Federal rules restrict any use of the information to criminally investigate or prosecute any alcohol or drug abuse patient.[facility] HospitalIn the event this information is protected by the Federal Confidentiality of Alcohol and Drug Abuse Patient Records regulations: The Federal rules restrict any use of the information to criminally investigate or prosecute any alcohol or drug abuse patient.[facility] HospitalIn the event this information is protected by the Federal Confidentiality of Alcohol and Drug Abuse Patient Records regulations: The Federal rules restrict any use of the information to criminally investigate or prosecute any alcohol or drug abuse patient.[facility] HospitalIn the event this information is protected by the Federal Confidentiality of Alcohol and Drug Abuse Patient Records regulations: The Federal rules restrict any use of the information to criminally investigate or prosecute any alcohol or drug abuse patient.[facility] HospitalIn the event this information is protected by the Federal Confidentiality of Alcohol and Drug Abuse Patient Records regulations: The Federal rules restrict any use of the information to criminally investigate or prosecute any alcohol or drug abuse patient.[facility] HospitalIn the event this information is protected by the Federal Confidentiality of Alcohol and Drug Abuse Patient Records regulations: The Federal rules restrict any use of the information to criminally investigate or prosecute any alcohol or drug abuse patient.[facility] HospitalIn the event this information is protected by the Federal Confidentiality of Alcohol and Drug Abuse Patient Records regulations: The Federal rules restrict any use of the information to criminally investigate or prosecute any alcohol or drug abuse patient.[facility] Teams (unrecognized sec tion and content) Boss Miner Relationship Specialty Start Date End Date Collins Savage Jr., DO PCP - General Family Medicine 12/21/13 Boss Miner Relationship Specialty Start Date End Date Collins Savage Jr., DO PCP - General Family Medicine 12/21/13 Boss Miner Relationship Specialty Start Date End Date Collins Savage Jr., DO PCP - General Family Medicine 12/21/13 Boss Miner Relationship Specialty Start Date End Date Collins Savage Jr., DO PCP - General Family Medicine 12/21/13 Boss Miner Relationship Specialty Start Date End Date Collins Savage Jr., DO PCP - General Family Medicine 12/21/13 Boss Miner Relationship Specialty Start Date End Date Collins Savage Jr., DO PCP - General Family Medicine 12/21/13 Boss Miner Relationship Specialty Start Date End Date Collins Andrews MD [address] [place] [id number] PCP - General Internal Medicine 05/06/23 Boss Miner Relationship Specialty Start Date End Date Collins Andrews MD [address] [place] [address] [id number] PCP - General Internal Medicine 05/06/23 Boss Miner Relationship Specialty Start Date End Date Collins Andrews MD [address] [place] [address] [id number] PCP - General Internal Medicine 05/06/23 Boss Miner Relationship Specialty Start Date End Date Collins Andrews MD [address] [place] [address] [id number] PCP - General Internal Medicine 05/06/23 Boss Miner Relationship Specialty Start Date End Date Collins Andrews MD [address] [place] [address] [id number] PCP - General Internal Medicine 05/06/23 Boss Miner Relationship Specialty Start Date End Date Collins Andrews MD [address] [place] [address] [id number] PCP - General Internal Medicine 05/06/23 Boss Miner Relationship Specialty Start Date End Date Collins Andrews MD [address] [place] [address] [id number] PCP - General Internal Medicine 05/06/23 Boss Miner Relationship Specialty Start Date End Date Collins Andrews MD [address] [place] [address] [id number] PCP - General Internal Medicine 05/06/23 Boss Miner Relationship Specialty Start Date End Date Collins Andrews MD [address] [place] [address] [id number] PCP - General Internal Medicine 05/06/23 Boss Miner Relationship Specialty Start Date End Date Collins Andrews MD [address] [place] [address] [id number] PCP - General Internal Medicine 05/06/23 Boss Miner Relationship Specialty Start Date End Date Collins Andrews MD [address] [place] [address] [id number] PCP - General Internal Medicine 05/06/23 Boss Miner Relationship Specialty Start Date End Date Collins Andrews MD [address] [place] [address] [id number] PCP - General Internal Medicine 05/06/23 Boss Miner Relationship Specialty Start Date End Date Collins Andrews MD [address] [place] [address] [id number] PCP - General Internal Medicine 05/06/23 Boss Miner Relationship Specialty Start Date End Date Collins Andrews MD [address] [place] [address] [id number] PCP - General Internal Medicine 05/06/23 Boss Miner Relationship Specialty Start Date End Date Collins Andrews MD [address] [place] [id number] PCP - General 02/13/21 Boss Miner Relationship Specialty Start Date End Date Collins Andrews MD PCP - General Internal Medicine 05/06/23 Boss Miner Relationship Specialty Start Date End Date Collins Andrews MD PCP - General Internal Medicine 05/06/23 Boss Miner Relationship Specialty Start Date End Date Collins [...] NM Specialty Diagnoses / Procedures Referred By Contac t Referred To Contact MOLECULAR & FUNCTIONAL IMAGING Diagnoses Preoperative cardiovascular examination Procedures NM CARDIAC PERF STRESS/PHARM MYOCARDIAL [place] [address] [place] [address] Molecular & Functional Imaging [address] [place] [address] Referral ID Status Reason Start Date Expiration Date V isits Requested Visits Authorized [id number] Closed Auto-Generate d Referral 05/07/2023 06/05/2024 1 [...] BE BASED ON THE PRIMARY CLINICAL RECORDS. [employer] [facility]. provides no warranty or guarantee of the accuracy or completeness of information in this document.
[2024-04-04] MEDS: CEFAZOLIN SODIUM/DEXTROSE,ISO 2 GM/50 ML PIGGYBACK IV ×3 (07:46→23:14)
[2024-04-04] MEDS: OXYCODONE HCL 15 MG TABLET PO ×3 (07:46→21:47)
[2024-04-04] MEDS: INSULIN ASPART 300 UNIT/3 ML PEN SUBQ ×4 (07:51→21:51)
[2024-04-04] MEDS: PREGABALIN 75 MG CAPSULE PO (08:00)
--- NOTE | 2024-04-04 09:30 | P.PN_ITS ---
Progress Note: Subjective Subjective Interval history: Patient only concern at this point is the numbness she still feels in her upper thigh and pain in her hip. This is likely positional from the surgery. Exam Constitutional Vital Signs, click to edit/add: Last Vital Signs Temp 98.0 F 04/04/24 09:13 Pulse 67 04/04/24 09:13 Resp 18 04/04/24 09:13 BP 145/85 H 04/04/24 09:13 Pulse Ox 97 04/04/24 09:13 O2 Del Method Room Air 04/04/24 09:13 O2 Flow Rate 2 04/03/24 14:33 Documenting provider has reviewed patient's vital signs: yes Common normals: no apparent distress Chest Common normals: inspection of chest normal Respiratory Common normals: normal respiratory effort and no retractions Cardio Common normals: regular rate and regular rhythm GI Common normals: Normal to inspection, nondistended, normoactive bowel sounds present Extremity Common normals: abnormal to inspection (large Padded splint on foot) Progress Note: Objective Labs Labs: Short CBC 04/04/24 Range/Units 04:32 WBC 10.4 (4.0-11.0) 10^3/uL Hgb 11.7 L (12.0-16.0) g/dL Hct 33.9 L (36.0-48.0) % Plt Count 240 (150-450) 10^3/uL BMP 04/04/24 04:32 Sodium 138 Potassium 4.0 Chloride 103 Carbon Dioxide 27.6 BUN 26.0 H Creatinine 1.02 Glucose 194 H Calcium 9.5 Progress Note: A&P Assessment and Plan (1) 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 This is been surgery #8 according to the patient. Plan per podiatry NIDDM-continue with home medications. She has excellent sugar control at home. Restart home medications today. Acute blood loss anemia secondary to the surgery. Can monitor as an outpatient. No other signs of acute blood loss. Sinus tachycardia-resolved Admission status: Patient completed surgery today. She is highly motivated for returning home tomorrow. Discharge disposition and possible change to inpatient status depending on plan from podiatry. Her medically necessary treatment may span 2 midnights if patient not stable for discharge to home. Urinary Catheter Management Urinary Catheter Management Urethral: Cath placed during this visit: no : Cath placed during this visit: no
--- NOTE | 2024-04-04 09:46 | PM.PN ---
Progress Note: Subjective Subjective Interval history: Patient seen resting comfortably at bedside this a.m. Still feels the right foot and ankle are numb, beginning to have some tingling sensation in the block may be beginning to wear off. She is having some weakness in her quadriceps as well as some pain to the upper thigh which I believe may be related to the Combination of nerve block and tourniquet use. Denies any other acute lower extremity complaints. Denied any constitutional symptoms at time of visit. Exam Narrative Exam Narrative: RLE splint left CDI. No erythema edema or ecchymosis proximal or distal to dressing. CFT intact. Light touch to digits diminished, active range of motion absent. Compartment soft compressible, no pain with calf or thigh compression. Constitutional Vital Signs, click to edit/add: Last Vital Signs Temp 98.0 F 04/04/24 09:13 Pulse 67 04/04/24 09:13 Resp 18 04/04/24 09:13 BP 145/85 H 04/04/24 09:13 Pulse Ox 97 04/04/24 09:13 O2 Del Method Room Air 04/04/24 09:13 O2 Flow Rate 2 04/03/24 14:33 Progress Note: Objective Labs Labs: Short CBC 04/04/24 Range/Units 04:32 WBC 10.4 (4.0-11.0) 10^3/uL Hgb 11.7 L (12.0-16.0) g/dL Hct 33.9 L (36.0-48.0) % Plt Count 240 (150-450) 10^3/uL BMP 04/04/24 04:32 Sodium 138 Potassium 4.0 Chloride 103 Carbon Dioxide 27.6 BUN 26.0 H Creatinine 1.02 Glucose 194 H Calcium 9.5 Progress Note: A&P Assessment and Plan (1) Mechanical breakdown of internal fixation device of bones of foot: (2) Pain due to internal prosthetic device: (3) Diabetes: Plan Patient examined and evaluated. All findings discussed with patient all questions answered to patient's satisfaction. Pertinent labs and imaging reviewed. 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 Maintain strict nonweightbearing to right lower extremity. PT pending She is having some weakness and pain in the right thigh consistent with nerve block/tourniquet use. Will continue to monitor, however did provide encouragement that this is known side effect/complication and should improve with some time. Postop meds sent to patient's pharmacy on file. Anticipate DC home later today versus tomorrow depending on pain control as block wears off this a.m.. Rest per primary, please call with questions or concerns. Urinary Catheter Management Urinary Catheter Management Urethral: Cath placed during this visit: no : Cath placed during this visit: no
[2024-04-04] MEDS: CALCIUM CARBONATE 600 MG TABLET PO ×2 (10:13→21:44)
[2024-04-04] MEDS: HYDROCHLOROTHIAZIDE 25 MG TABLET PO (10:13)
[2024-04-04] MEDS: LEVOTHYROXINE SODIUM 100 MCG TABLET PO (10:13)
[2024-04-04] MEDS: FISH OIL 1,000 MG CAPSULE 1000 MG PO ×2 (10:13→21:46)
[2024-04-04] MEDS: PYRIDOXINE HCL (VITAMIN B6) 50 MG TABLET PO (10:14)
[2024-04-04] MEDS: FLUOXETINE HCL 10 MG CAPSULE PO (10:14)
[2024-04-04] MEDS: FENOFIBRATE 54 MG TABLET 162 MG PO (10:14)
--- NOTE | 2024-04-04 10:33 | CM.NOTE ---
Rounds made with Dr. Camejo, pt c/o nerve block not wore off yet. Pt states she is unable to lift leg, no feeling from knee down. Pt having increased pain to hip and groin area. Dr. Camejo will reach out to Dr. Grubbs for further recommendations. Pt requesting home medications, Dr. Camejo will reorder all home medications today.
[2024-04-04] MEDS: GABAPENTIN 400 MG CAPSULE 800 MG PO (14:02)
[2024-04-04] MEDS: ACETAMINOPHEN 500 MG TABLET 1000 MG PO (15:29)
[2024-04-04] MEDS: METFORMIN HCL 500 MG TABLET 1000 MG PO (16:33)
[2024-04-04] MEDS: ENOXAPARIN SODIUM 40 MG/0.4 ML SYRINGE SUBQ (16:33)
[2024-04-04] MEDS: INSULIN DETEMIR 300 UNIT/3 ML INSULN.PEN 55 UNIT SUBQ (21:43)
[2024-04-04] MEDS: ZOLPIDEM TARTRATE 10 MG TABLET PO (21:44)
[2024-04-04] MEDS: GABAPENTIN 400 MG CAPSULE 1600 MG PO (21:45)
[2024-04-05 03:37] VITALS: BP 117/69; PULSE 82; TEMP 37.2; O2SAT 92
[2024-04-05 05:28] LABS: Basophils Percent Auto 0.5 % (0.2-2.0); Eosinophils Absolute Auto 0.2 10^3/uL (0.0-0.7); Eosinophils Percent Auto 2.3 % (0.9-7.0); Hematocrit 33.3 % (36.0-48.0); Hemoglobin 11.2 g/dL (12.0-16.0); Immature Granulocytes Abs Auto 0.04 10^3/uL (0.00-0.03); Immature Granulocytes Pct Auto 0.5 % (0.0-0.5); Lymphocytes Absolute Auto 3.2 10^3/uL (1.2-3.8); Lymphocytes Percent Auto 37.4 % (20.5-60.0); Mean Corpuscular HGB Conc 33.6 g/dL (29.9-35.2); Mean Corpuscular Hemoglobin 29.8 pg (26.7-34.0); Mean Corpuscular Volume 88.6 fL (81.0-99.0); Mean Platelet Volume 10.3 fL (9.5-13.5); Monocytes Percent Auto 11.7 % (1.7-12.0); Neutrophils Absolute Auto 4.1 10^3/uL (1.4-6.5); Neutrophils Percent Auto 47.6 % (43.0-75.0); Platelet Count 211 10^3/uL (150-450); Red Blood Count 3.76 10^6/uL (4.20-5.40); Red Cell Distribution Width 12.9 % (11.0-15.0); White Blood Count 8.6 10^3/uL (4.0-11.0)
[2024-04-05 05:33] LABS: Anion Gap 13.1; BUN Creatinine Ratio 26.5; Calcium 9.7 mg/dL (8.5-10.1); Carbon Dioxide 27.8 mmol/L (21.0-32.0); Chloride 100 mmol/L (98-107); Estimated GFR (African America >60 (>=60); Estimated GFR (Non-African Ame 57 (>=60); Glucose 143 mg/dL (74-106); Potassium 3.9 mmol/L (3.5-5.1); Sodium 137 mmol/L (136-145)
[2024-04-05] MEDS: LEVOTHYROXINE SODIUM 100 MCG TABLET PO (05:55)
[2024-04-05] MEDS: GABAPENTIN 400 MG CAPSULE 800 MG PO (05:55)
[2024-04-05 07:32] VITALS: BP 142/65; PULSE 83; TEMP 37.3; O2SAT 94
--- NOTE | 2024-04-05 08:58 | PM.PN ---
Progress Note: Subjective Subjective Interval history: Patient seen resting comfortably at bedside this a.m. POD #2 s/p right revision ankle arthrodesis, excision of nonunion and hardware removal, DOS 04/03/2024. Still Feeling numbness in the right foot which is baseline for her, states she felt like the nerve block wore off yesterday and pain has been controlled with oral medication. States weakness in her quadriceps as well as pain to the upper thigh Has improved significantly from yesterday. Denies any other acute lower extremity complaints. Denied any constitutional symptoms at time of visit. She is eager to go home today. Exam Narrative Exam Narrative: RLE splint left CDI. No erythema edema or ecchymosis proximal or distal to dressing. CFT intact. Light touch to digits diminished, active range of motion absent. Compartment soft compressible, no pain with calf or thigh compression. Constitutional Vital Signs, click to edit/add: Last Vital Signs Temp 99.1 F 04/05/24 07:32 Pulse 83 04/05/24 07:32 Resp 18 04/05/24 07:32 BP 142/65 H 04/05/24 07:32 Pulse Ox 94 L 04/05/24 07:32 O2 Del Method Room Air 04/05/24 07:32 O2 Flow Rate 2 04/03/24 14:33 Progress Note: Objective Labs Labs: Short CBC 04/05/24 Range/Units 04:52 WBC 8.6 (4.0-11.0) 10^3/uL Hgb 11.2 L (12.0-16.0) g/dL Hct 33.3 L (36.0-48.0) % Plt Count 211 (150-450) 10^3/uL BMP 04/05/24 04:52 Sodium 137 Potassium 3.9 Chloride 100 Carbon Dioxide 27.8 BUN 26.0 H Creatinine 0.98 Glucose 143 H Calcium 9.7 Progress Note: A&P Assessment and Plan (1) Mechanical breakdown of internal fixation device of bones of foot: (2) Pain due to internal prosthetic device: (3) Diabetes: Plan Patient examined and evaluated. All findings discussed with patient all questions answered to patient's satisfaction. Pertinent labs and imaging reviewed. 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 Maintain strict nonweightbearing to right lower extremity. PT on board Weakness in the right thigh has improved significantly, muscle strength is full still some sensory numbness over the anterior thigh. Postop meds sent to patient's pharmacy on file. Stable to [place] from podiatry's perspective today. Follow-up with Dr. Grubbs's office next Wednesday or Wednesday. Rest per primary, please call with questions or concerns. Urinary Catheter Management Urinary Catheter Management Urethral: Cath placed during this visit: no : Cath placed during this visit: no
[2024-04-05] MEDS: PREGABALIN 75 MG CAPSULE PO (09:37)
[2024-04-05] MEDS: METFORMIN HCL 500 MG TABLET 1000 MG PO (09:37)
--- NOTE | 2024-04-05 09:37 | P.DS_ITS ---
DS: Providers Provider Date of admission: 04/03/24 13:22 Primary care physician: Non-Staff Physician, Consults: 04/03/24 12:58 Consult to [facility] Routine Reason for consult:: [facility] Other reason:: Possible SNF, anticipate DC home Physical Therapy Eval and Treat Routine Reason for consultation: postop gait eval/fall risk, radha gonzalez 04/03/24 13:53 Consult to Pharmacy Routine Consulting Provider: Reason for consultation: Please Adair me when Med Rec is Updated Has provider been notified: No Occupational Therapy Eval and Treat Routine Reason for consultation: Only if needed for Rehab Has provider been notified: No Physical Therapy Eval and Treat Routine Reason for consultation: Eval and Treat Has provider been notified: No 04/04/24 08:55 Consult to Pharmacy Routine Consulting Provider: Reason for consultation: Her gabapentin is 1 in am - one in afternoon and 2 at hs DS: Diagnosis Discharge Diagnosis (1) 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 Pain Stable NIDDM-continue with home medications. home management Acute blood loss anemia secondary to the surgery. Down somewhat opn day of dc Sinus tachycardia-resolved Admission status: Patient completed surgery today. DS: Summary Hospital Course Hospital Course: Pt admitted for podiatric procedure, completed that on day of admission. See OP report. Patient has some issues with pain control and the day after discharge was kept an additional day. Currently still has some numbness of her leg but that is improved. Strength is definitely improved. Pain controlled with oral medication. Her sugars were somewhat elevated at times throughout the hospitalization but returning to her home regimen should improve that. Will change her medication as is her pain medication. Follow-up with podiatry as an outpatient. Medication status. Patient stable for discharge. Status at Discharge Overall status at discharge: patient is not back to baseline Time Spent with Patient Time attestation: Total time spent providing and/or coordinating discharge services: Time spent: less than 30 minutes Exam Constitutional Vital Signs, click to edit/add: Last Vital Signs Temp 99.1 F 04/05/24 07:32 Pulse 83 04/05/24 07:32 Resp 18 04/05/24 07:32 BP 142/65 H 04/05/24 07:32 Pulse Ox 94 L 04/05/24 07:32 O2 Del Method Room Air 04/05/24 07:32 O2 Flow Rate 2 04/03/24 14:33 Documenting provider has reviewed patient's vital signs: yes Common normals: no apparent distress Chest Common normals: inspection of chest normal Respiratory Common normals: normal respiratory effort and no retractions Cardio Common normals: regular rate and regular rhythm GI Common normals: Normal to inspection, nondistended, normoactive bowel sounds present Extremity Common normals: abnormal to inspection (large Padded splint on foot) DS: Data Data Completed and Pending Labs on day of discharge: Labs from last 24 hours 04/05/24 04:52 WBC 8.6 RBC 3.76 L Hgb 11.2 L Hct 33.3 L MCV 88.6 MCH 29.8 MCHC 33.6 RDW 12.9 Plt Count 211 MPV 10.3 Neut % (Auto) 47.6 Lymph % (Auto) 37.4 Mcduffie % (Auto) 11.7 Eos % (Auto) 2.3 Baso % (Auto) 0.5 Neut # (Auto) 4.1 Lymph # (Auto) 3.2 Mcduffie # (Auto) 1.0 H Eos # (Auto) 0.2 Baso # (Auto) 0.0 Abs Immat Gran (auto) 0.04 H Imm/Tot Granulo (auto) 0.5 Sodium 137 Potassium 3.9 Chloride 100 Carbon Dioxide 27.8 Anion Gap 13.1 BUN 26.0 H Creatinine 0.98 Est GFR ( Amer) >60 Est GFR (Non-Af Amer) 57 L BUN/Creatinine Ratio 26.5 Glucose 143 H Calcium 9.7 Discharge Plan Discharge Disposition: Home, Self-Care Discharge Medications: New aspirin [Adult Low Dose Aspirin] 81 mg tablet,delayed release (DR/EC) 81 mg PO BID 30 Days Qty: 60 0RF cefadroxil 500 mg capsule 500 mg PO BID 14 Days Qty: 28 0RF oxycodone-acetaminophen [Percocet] 5-325 mg tablet 1 tab PO Q6H PRN (Reason: pain) 7 Days Qty: 28 0RF Rx Instructions: previously tolerated ondansetron 4 mg tablet,disintegrating 4 mg PO Q8H PRN (Reason: nausea and vomiting) 5 Days Qty: 15 0RF cholecalciferol (vitamin D3) 125 mcg (5,000 unit) capsule 125 mcg PO DAILY 90 Days Qty: 90 0RF sennosides [Senna Laxative] 8.6 mg tablet 8.6 mg PO DAILY PRN (Reason: constipation) 7 Days Qty: 7 0RF Continued albuterol sulfate 90 mcg/actuation HFA aerosol inhaler 2 inh INHALATION Q4H PRN (Reason: shortness of breath or wheezing) ergocalciferol (vitamin D2) 1,250 mcg (50,000 unit) capsule 1,250 mcg PO .wednesday fenofibrate nanocrystallized 145 mg tablet 145 mg PO DAILY fluoxetine 10 mg capsule 10 mg PO DAILY gabapentin 800 mg tablet 800 mg PO QID hydrochlorothiazide 25 mg tablet 25 mg PO DAILY insulin glargine [Lantus U-100 Insulin] 100 unit/mL solution 55 unit SUBCUT QPM Patient Comments: ONLY TOOK 1/2 DOSE LAST NIGHT Humalog Mix 75-25(U-100)Insuln 100 unit/mL (75-25) suspension 20 unit SUBCUT AC levothyroxine 100 mcg tablet 100 mcg PO DAILY metformin 1,000 mg tablet 1,000 mg PO BID omega-3 acid ethyl esters 1 gram capsule 1 cap PO BID zolpidem 10 mg tablet 10 mg PO QPM calcium 600 mg capsule 600 mg PO BID cinnamon bark [Cinnamon] 500 mg capsule 500 mg PO DAILY turmeric 400 mg capsule 400 mg PO .qd pyridoxine (vitamin B6) 50 mg capsule 50 mg PO DAILY aspirin [Adult Low Dose Aspirin] 81 mg tablet,delayed release (DR/EC) 81 mg PO BID 30 Days Qty: 60 0RF Activity: other Activity Detail: Ambulate with crutches. No weight bearing to right foot Diet: advance to your usual diet Print Language: Japanese Patient Instructions: Non Weight Bearing Activity (DC) Forms: Portal Instructions Follow Up Appointments: April 11 @ 1:45pm with Dr. Grubbs [facility] [place] [address] , [place] [phone]
[2024-04-05] MEDS: HYDROCHLOROTHIAZIDE 25 MG TABLET PO (09:38)
[2024-04-05] MEDS: CALCIUM CARBONATE 600 MG TABLET PO (09:38)
[2024-04-05] MEDS: CEFAZOLIN SODIUM/DEXTROSE,ISO 2 GM/50 ML PIGGYBACK IV (09:38)
[2024-04-05] MEDS: FISH OIL 1,000 MG CAPSULE 1000 MG PO (09:38)
[2024-04-05] MEDS: ACETAMINOPHEN 500 MG TABLET 1000 MG PO (09:38)
[2024-04-05] MEDS: FLUOXETINE HCL 10 MG CAPSULE PO (09:39)
[2024-04-05] MEDS: PYRIDOXINE HCL (VITAMIN B6) 50 MG TABLET PO (09:40)
[2024-04-05] MEDS: FENOFIBRATE 54 MG TABLET 162 MG PO (09:40)
--- NOTE | 2024-04-05 10:31 | CM.NOTE ---
Rounds made Dr. Camejo. Plan for discharge today. April in agreement.
[2024-04-05 10:54] VITALS: O2SAT 91
[2024-04-05] MEDS: OXYCODONE HCL 15 MG TABLET PO (11:07)
--- NOTE | 2024-04-11 15:58 | CM.DCFOLLOWU ---
1st attempt, 04/11/24 no answer
--- NOTE | 2024-04-12 14:56 | CM.DCFOLLOWU ---
2nd attempt 04/12/24, no answer
--- NOTE | 2024-04-13 12:01 | CM.DCFOLLOWU ---
3rd attempt 04/13/24, no answer 3 attempts made no answer each time
== END 2024-04-05 11:44 | disposition home or self-care (01) ==
LOC: MS 13:35 → SURGOUT 04-04 06:19 → MS 04-05 09:36
PROVIDERS: Anesthesiology; Podiatrist Foot & Ankle Surgery; Admitting Provider Family Medicine; Visit Provider Family Medicine
PROC: (CPT 1480; principal; 2024-04-03 07:30)
DX: E11.610 Type 2 diabetes mellitus with diabetic neuropathic arthropathy (principal); M96.0 Pseudarthrosis after fusion or arthrodesis; T84.213A Breakdown (mechanical) of internal fixation device of bones of foot and toes, initial encounter; T85.848A Pain due to other internal prosthetic devices, implants and grafts, initial encounter; R00.0 Tachycardia, unspecified; D62 Acute posthemorrhagic anemia; Z79.899 Other long term (current) drug therapy; Z79.84 Long term (current) use of 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 drugs; Z79.4 Long term (current) use of insulin; E78.00 Pure hypercholesterolemia, unspecified; J45.909 Unspecified asthma, uncomplicated; M19.90 Unspecified osteoarthritis, unspecified site; Z87.891 Personal history of nicotine dependence
CPT/HCPCS: 20680; 27720; 27870; 36415; 64445; 64447; 73610; 73630; 76000; 80048; 82948; 85025; 94761; 96365; 96366; 96372; 96375; 97161; C1713; G0378; J0131; J0690; J1100; J1170; J1650; J1885; J2250; J2704; J2795; J3010

== ENCOUNTER 2024-04-11 14:25 | Outpatient (OUT) | payer MEDICARE, MEDICAID, SELFPAY ==
--- NOTE | 2024-04-11 | XR_ITS ---
The [address] [address] Patient Name: BILLY SEXTON MRN: [id number] date: 1960 Sex: F Assigned Patient Location: Current Patient Location: Accession/Order Number: [id number] Exam Date: 04/11/2024 14:28 Report Date: 04/12/2024 07:28 At the request of: BROOKS GONZALES Procedure: XR ankle RT min 3V PROCEDURE: XR ankle RT min 3V, XR foot RT min 3V COMPARISON: 04/03/2024 HISTORY: RIGHT ANKLE PAIN FINDINGS: BONES:Again demonstrated is marked degenerative changes of the midfoot and hindfoot with bony remodeling consistent with known neuropathic osteoarthropathy. Multiple screw fragments are observed. Ankle fusion utilizing a retrograde intramedullary jennifer and multiple screws. There appears to be prior resection/collapse of the talus. Plantar plate and screws. Ectopic ossification likely represents bone graft material. Single screw across the first interphalangeal joint. Moderate degenerative changes of the first metatarsal-phalangeal joint. Contour deformity of the metacarpal, remote healed fracture SOFT TISSUES:Diffuse soft tissue swelling. Subcutaneous emphysema. EFFUSION:None visible. OTHER: Negative. XR/XR ankle RT min 3V IMPRESSION: Stable postsurgical and degenerative changes Soft tissue swelling and emphysema, postsurgical changes favored, clinically correlate Electronically authenticated by: MAYELA AGUILAR Date: 04/12/2024 07:28
--- NOTE | 2024-04-11 | XR_ITS ---
The [address] [address] Patient Name: BILLY SEXTON MRN: [id number] date: 1960 Sex: F Assigned Patient Location: Current Patient Location: Accession/Order Number: [id number] Exam Date: 04/11/2024 14:28 Report Date: 04/12/2024 07:28 At the request of: BROOKS GONZALES Procedure: XR foot RT min 3V PROCEDURE: XR ankle RT min 3V, XR foot RT min 3V COMPARISON: 04/03/2024 HISTORY: RIGHT ANKLE PAIN FINDINGS: BONES:Again demonstrated is marked degenerative changes of the midfoot and hindfoot with bony remodeling consistent with known neuropathic osteoarthropathy. Multiple screw fragments are observed. Ankle fusion utilizing a retrograde intramedullary jennifer and multiple screws. There appears to be prior resection/collapse of the talus. Plantar plate and screws. Ectopic ossification likely represents bone graft material. Single screw across the first interphalangeal joint. Moderate degenerative changes of the first metatarsal-phalangeal joint. Contour deformity of the metacarpal, remote healed fracture SOFT TISSUES:Diffuse soft tissue swelling. Subcutaneous emphysema. EFFUSION:None visible. OTHER: Negative. XR/XR foot RT min 3V IMPRESSION: Stable postsurgical and degenerative changes Soft tissue swelling and emphysema, postsurgical changes favored, clinically correlate Electronically authenticated by: MAYELA AGUILAR Date: 04/12/2024 07:28
== END 2024-04-11 14:26 | disposition home or self-care (01) ==
LOC: EC 14:26
PROVIDERS: Visit Provider Podiatrist Foot & Ankle Surgery
DX: M14.671 Charcot's joint, right ankle and foot (principal); Z98.890 Other specified postprocedural states; M25.471 Effusion, right ankle
CPT/HCPCS: 73610; 73630

== ENCOUNTER 2024-04-26 11:23 | Outpatient (OUT) | payer MEDICARE, MEDICAID, SELFPAY ==
--- NOTE | 2024-04-26 | XR_ITS ---
[address] [address] Patient Name: BILLY SEXTON MRN: [id number] date: 1960 Sex: F Assigned Patient Location: Current Patient Location: Accession/Order Number: [id number] Exam Date: 04/26/2024 11:23 Report Date: 04/26/2024 13:10 At the request of: BROOKS GONZALES Procedure: XR foot RT min 3V PROCEDURE: XR ankle RT min 3V, XR foot RT min 3V COMPARISON: 04/11/2024 HISTORY: RIGHT ANKLE PAIN FINDINGS: BONES:Stable ankle fusion utilizing a retrograde intramedullary nail multiple screws and plates. Remote distal fibular resection Marked degenerative change of the midfoot and hindfoot with extensive bony remodeling. Remote fixation of the first interphalangeal joint. Remote healed fracture fifth metatarsal. No mechanical failure. Stable lucency surrounding the intramedullary tibial jennifer SOFT TISSUES:Negative. No visible soft tissue swelling. EFFUSION:None visible. OTHER: Negative. XR/XR foot RT min 3V IMPRESSION: Stable postsurgical and degenerative changes from ankle fusion and underlying neuropathic osteoarthropathy Electronically authenticated by: MAYELA AGUILAR Date: 04/26/2024 13:10
--- NOTE | 2024-04-26 | XR_ITS ---
[address] [address] Patient Name: BILLY SEXTON MRN: [id number] date: 1960 Sex: F Assigned Patient Location: Current Patient Location: Accession/Order Number: [id number] Exam Date: 04/26/2024 11:23 Report Date: 04/26/2024 13:10 At the request of: BROOKS GONZALES Procedure: XR ankle RT min 3V PROCEDURE: XR ankle RT min 3V, XR foot RT min 3V COMPARISON: 04/11/2024 HISTORY: RIGHT ANKLE PAIN FINDINGS: BONES:Stable ankle fusion utilizing a retrograde intramedullary nail multiple screws and plates. Remote distal fibular resection Marked degenerative change of the midfoot and hindfoot with extensive bony remodeling. Remote fixation of the first interphalangeal joint. Remote healed fracture fifth metatarsal. No mechanical failure. Stable lucency surrounding the intramedullary tibial jennifer SOFT TISSUES:Negative. No visible soft tissue swelling. EFFUSION:None visible. OTHER: Negative. XR/XR ankle RT min 3V IMPRESSION: Stable postsurgical and degenerative changes from ankle fusion and underlying neuropathic osteoarthropathy Electronically authenticated by: MAYELA AGUILAR Date: 04/26/2024 13:10
== END 2024-04-26 11:24 | disposition home or self-care (01) ==
LOC: EC 11:23
PROVIDERS: Visit Provider Podiatrist Foot & Ankle Surgery
DX: M14.671 Charcot's joint, right ankle and foot (principal); Z98.890 Other specified postprocedural states
CPT/HCPCS: 73610; 73630

== ENCOUNTER 2024-05-10 11:26 | Outpatient (OUT) | payer MEDICARE, MEDICAID, SELFPAY ==
--- NOTE | 2024-05-10 | XR_ITS ---
The [address] [address] Patient Name: BILLY SEXTON MRN: [id number] date: 1960 Sex: F Assigned Patient Location: Current Patient Location: LAB Accession/Order Number: [id number] Exam Date: 05/10/2024 12:22 Report Date: 05/10/2024 15:36 At the request of: BROOKS GONZALES Procedure: XR foot RT min 3V PROCEDURE: XR foot RT min 3V, XR ankle RT min 3V COMPARISON: 04/26/2024 HISTORY: RIGHT FOOT PAIN FINDINGS: BONES:Stable marked degenerative changes of the midfoot and hindfoot with ankle fusion utilizing a retrograde intramedullary jennifer. Lucency surrounds the right, stable. Additional screws and plates with fracture and retention of multiple screw fragments. Stable fusion of the first interphalangeal joint SOFT TISSUES:Negative. No visible soft tissue swelling. EFFUSION:None visible. OTHER: Negative. XR/XR foot RT min 3V IMPRESSION: Stable postsurgical and degenerative changes Electronically authenticated by: MAYELA AGUILAR Date: 05/10/2024 15:36
--- NOTE | 2024-05-10 | XR_ITS ---
The [address] [address] Patient Name: BILLY SEXTON MRN: [id number] date: 1960 Sex: F Assigned Patient Location: Current Patient Location: LAB Accession/Order Number: [id number] Exam Date: 05/10/2024 12:22 Report Date: 05/10/2024 15:36 At the request of: BROOKS GONZALES Procedure: XR ankle RT min 3V PROCEDURE: XR foot RT min 3V, XR ankle RT min 3V COMPARISON: 04/26/2024 HISTORY: RIGHT FOOT PAIN FINDINGS: BONES:Stable marked degenerative changes of the midfoot and hindfoot with ankle fusion utilizing a retrograde intramedullary jennifer. Lucency surrounds the right, stable. Additional screws and plates with fracture and retention of multiple screw fragments. Stable fusion of the first interphalangeal joint SOFT TISSUES:Negative. No visible soft tissue swelling. EFFUSION:None visible. OTHER: Negative. XR/XR ankle RT min 3V IMPRESSION: Stable postsurgical and degenerative changes Electronically authenticated by: MAYELA AGUILAR Date: 05/10/2024 15:36
--- OUTSIDE RECORDS SUMMARY | 2024-05-10 11:41 | XMS_ITS | CCD ---
Author Organization [facility] CliniSymt Care Team Providers Care Handle Attacher Name Role Phone Collins Savage Unavailable Unavailable Sarnavin, Collins Unavailable Unavailable Kira Bennett Unavailable Unavailable SarjessicakisCollins E Unavailable Unavailable Sarporshas, Collins E Unavailable Unavailable Saridakilake, Collins Unavailable Unavailable Aron Chan Unavailable Unavailable Saridakis, Collins Rogersuel Unavailable Unava ilable Janette Collins E Primary Care Provider Jennifer, Dr. Fang Santos Attending U navailable Razzante, Dr. Fang Santos Referring U navailable Debs, Dr. Collins Orellana Primary Care Unavaila ble Razzante, Dr. Fang Santos Admitting U navailable Razzante, Dr. Fang Santos Attending U navailable Giulianazarudy, Dr. Fang Santos Referring U navailable Debs, [...] Strong JR E Primary Care Unavaila ble GIULIANAZARUDY, FANG SANTOS Referring Unava ilable CLOJALENERTY, MACARIO ZUNIGA Referring Unava ilable COLLINS SAVAGE JR E Primary Care Unavaila ble DANA GOYAL Attending Unavailable DEBS, COLLINS E Primary Care Unavailable CLOJALENERTY, MACARIO VENCESR Referring Unava ilable DEBS, COLLINS E Primary Care Unavailable CLOUGHERTY, MACARIO VENCESR Referring Unava ilable DEBS, COLLINS E Primary Care Unavailable ANA LILIA, MACARIO VENCESR Referring Unava ilable DEBS, COLLINS E Primary Care Unavailable CLOUGHERTY, MACARIO VENCESR Referring Unava ilable COLLINS SAVAGE JR E Primary Care Unavaila ble ANA LILIA, MACARIO VENCESR Referring Unava ilable DEBS, COLLINS E Primary Care Unavailable WILIAM DANIELS Referring Unavailable DEBS, COLLINS E Primary Care Unavailable CLOUGHERTY, MACARIO VENCESR Referring Unava ilable DEBS, COLLINS E Primary Care Unavailable SAFIAUGHFELA, MACARIO VENCESR Referring Unava ilable CLOUGHERTY, MACARIO VENCESR Attending Unava ilable DEBS, COLLINS E Primary Care Unavailable CLODONG, MACARIO VENCESR Referring Unava ilable DEBS, COLLINS E Primary Care Unavailable ANA LILIA, MACARIO VENCESR Referring Unava ilable CLOMACARIO CARROLLR Attending Unava ilable DEBSCOLLINS E Primary Care Unavailable GOYAL, DANA Referring Unavailable DEBS, COLLINS E Primary Care Unavailable GOYAL, DANA Referring Unavailable DEBS, COLLINS E Primary Care Unavailable CLOJALENERTYMACARIOR Attending Unava ilable CLOMACARIO CARROLLR Referring Unava ilable DEBS, COLLINS E Primary Care Unavailable GOYAL, DANA Referring Unavailable DEBS, COLLINS E Primary Care Unavailable GOYAL, DANA Referring Unavailable DEBS, COLLINS E Primary Care Unavailable CLOJALENERTY, MACARIO VENCESR Attending Unava ilable MACARIO SANTOSR Referring Unava ilable DEBS, COLLINS E Primary Care Unavailable CLOUGHERTY, MACARIO VENCESR Referring Unava ilable DEBS, COLLINS E Primary Care Unavailable CLOUGHERTY, MACARIO VENCESR Referring Unava ilable DEBS, COLLINS E Primary Care Unavailable CLOJALENERTY, MACARIO VENCESR Attending Unava ilable JULIANA, COLLINS E Primary Care Unavailable Lauries Collins CRUMP Primary Care Provider MACARIO SANTOS Attending Unava ilable CLOJALENERTYMACARIO Admitting Unava ilable COLLINS SAVAGE JR Primary Care Unavaila ble MANAS [employer] Unavailable DEBS, COLLINS E Primary Care Unavailable CLOUGHERTY, MACARIO VENCESR Referring Unava ilable CLOUGHERTY, MACARIO VENCESR Attending Unava ilable JULIANA, COLLINS E Primary Care Unavailable DEBS, COLLINS E Primary Care Unavailable CLOMACARIO CARROLL Attending Unava ilable MACARIO SANTOSR Referring Unava ilable COLLINS SAVAGE JR Primary Care Unavaila ble CLOMACARIO CARROLLR Referring Unava ilable CLOUGHERTY, MACARIO EVNCESR Attending Unava ilable JULIANA, COLLINS E Primary Care Unavailable DEBS, COLLINS E Primary Care Unavailable CLOUGHERTY, MACARIO VENCESR Referring Unava ilable ANA LILIA, MACARIO VENCESR Attending Unava ilable JULIANA, COLLINS E Primary Care Unavailable CLOUGHERTY, MACARIO VENCESR Admitting Unava ilable SAFIAUGHERTY, SORTO ODELL Attending Unava ilFLASH Walters Attending Provider COLLINS ANDREWS Primary Care Unavailable LAURIES, COLLINS E Primary Care Unavailable Zuhair Grubbs Admitting Unavailable Zuhair Grubbs Attending Unavailable Allergies Allergy Classification Reported Allergen(s) Allergy Type Date of Onset Reaction(s) Facility (20 sources) Codeine Drug Allergy 8 GI Upset [facility] 1057 Work Phone: (9 sources) Meperidine Drug Allergy [facility] 1057 Work Phone: (20 sources) Meperidine; Translations: [MEPERIDINE (PF)] Drug Allergy 8 Other: See Comments [facility] (20 sources) Morphine; Translations: [MORPHINE] Drug Allergy 1 Itching [facility] (13 sources) Amoxicillin / Clavulanate; Translations: [AMOXICILLIN-PO T CLAVULANATE] Drug Allergy 3 GI Upset [facility] (13 sources) Doxycycline; Translations: [DOXYCYCLINE] Drug Allergy 3 GI [facility] (2 sources) Codeine; Translations: [CODEINE] Drug Allergy 8 [facility] [place] [facility] (1 source) ALLERGIES NOT ON FILE; Translations: [ALLERGIES NOT ON FILE] Propensity to adverse reactions (disorder) [facility] Medications Current Medications Medication Drug Class(es) [...] Start: 04-24-2014 HYDROCODONE-ACETA MINOPHEN 7.5-300 mg tab [id number] actuat albuterol 0.09 mg/actuat metered dose inhaler (20 sources) beta2-Adrenergic Agonist Start: 09-13-2023 take 1-2 puff(s) by mouth every four hours as needed albuterol HFA (PROVENTIL HFA, VENTOLIN HFA) 90 mcg/actuation inhaler inhale 1 to 2 puffs by mouth every 4 hours as needed 0 09/13/2023 Active Start: 02-22-2015 take 2 puff(s) by mo [facility] four times daily as needed Ventolin HFA [...] on above: Take 1 capsule by mo [facility] three times daily. cholecalciferol 0.025 mg oral [...] Comment on above: Take 2,[address] [facility] twice daily. cyclobenzaprine hydrochloride 10 mg [...] daily. 0 07/05/2017 Active Start: 07-05-2017 FLUoxetine (NH OZAC) 40 mg capsule Take by mouth. [...] mouth once daily Quantity: 30 Refills: 9 Christaobie VILLELACollins Start : 01-Jun-2014 Active Comment on above: [...] SUBCUTANEOUSLY DAILY Quantity: 3 Refills: 10 Collins aSvage DO Start : 10-May-2014 Active 10 ML [...] daily with meals. omega-3 acid ethyl esters ([facility]) 1000 mg oral capsule (20 sources) omega-3 [...] Start: 03-21-2015 take 2 tablets by mo ut four times daily traMADol HCl - 50 [...] by mouth. 0 Active turmeric (CURCUM IN [facility]) Comment on above: Take 500 mg by [...] lower leg] Episodic Other aftercare (1 source) terminal operator (current) use of 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 drugs; Translations: [alf (current) use of 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 drugs] Onset: 03-22-2023 Episodic Other aftercare (2 sources) terminal operator (current) use of insulin; Translations: [terminal operator (current) use of insulin] Onset: 03-17-2023 Episodic Other aftercare (1 source) Other mcfp (current) drug therapy; Translations: [Other mcfp (current) drug therapy] Onset: 03-17-2023 Episodic Other aftercare (1 source) Long-term current use of 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 medication; Translations: [alf (current) use of 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 drugs] 03-29-2023 [...] BCP dye [Mass/Vol] 4.7 g/dL Normal 3.4-5.0 [facility] Comment on above: Performed By: #### 2 4323-8 #### ADAM CALDERON ([id number]) [facility] ([facility]) [employer] [place] [address] ALP [Catalytic activity/Vol] 59 U/L Normal 33-136 [facility] Comment on above: Performed By: #### 2 4323-8 #### ADAM CALDERON ([id number]) [facility] ([facility]) [address] [place] [address] ALT With P-5'-P [Catalytic activity/Vol] 23 U/L Normal 7-45 [facility] Comment on above: Result Comment: Shaista ents treated with Sulfasalazine may generate falsely decreased results for ALT. Performed By: #### 2 4323-8 #### ADAM CALDERON ([id number]) [facility] ([facility]) [address] [place] [address] Anion gap [Moles/Vol] 17 mmol/L Normal 10-20 [facility] Comment on above: Performed By: #### 2 4323-8 #### ADAM CALDERON ([id number]) [facility] ([facility]) [address] [place] [address] AST With P-5'-P [Catalytic activity/Vol] 16 U/L Normal 9-39 [facility] Comment on above: Performed By: #### 2 4323-8 #### ADAM CALDERON ([id number]) [facility] ([facility]) [address] [place] [address] Bilirubin [Mass/Vol] 0.3 mg/dL Normal 0.0-1.2 [facility] Comment on above: Performed By: #### 2 4323-8 #### ADAM CALDERON ([id number]) [facility] ([facility]) [address] [place] [address] Calcium [Mass/Vol] 10.8 mg/dL High 8.6-10.3 [facility] Comment on above: Performed By: #### 2 4323-8 #### ADAM CALDERON ([id number]) [facility] ([facility]) [address] [place] [address] Chloride [Moles/Vol] 101 mmol/L Normal 98-107 [facility] Comment on above: Performed By: #### 2 4323-8 #### ADAM CALDERON ([id number]) [facility] ([facility]) [address] [place] [address] CO2 [Moles/Vol] 25 mmol/L Normal 21-32 [facility] Comment on above: Performed By: #### 2 4323-8 #### ADAM CALDERON ([id number]) [facility] ([facility]) [address] [place] [address] Creatinine [Mass/Vol] 1.09 mg/dL High 0.50-1.05 [facility] Comment on above: Performed By: #### 2 4323-8 #### ADAM CALDERON ([id number]) [facility] ([facility]) [address] [place] [address] Glomerular filtration rate/1.73 sq M.predicted 57 mL/min/1.73m*2 Low >60 [facility] Comment on above: Result Comment: Calc ulations of estimated GFR are performed using the 2020 CKD-EPI Study Refit equation without the race variable for the IDMS-Traceable creatinine methods. https://jasn.asnjournals.org/content/early/ASN.6861627 988 Performed By: #### 2 4323-8 #### ADAM CALDERON ([id number]) [facility] ([facility]) [address] [place] [address] Glucose [Mass/Vol] 178 mg/dL High 74-99 [facility] Comment on above: Performed By: #### 2 4323-8 #### ADAM CALDERON ([id number]) [facility] ([facility]) [address] [place] [address] Potassium [Moles/Vol] 4.7 mmol/L Normal 3.5-5.3 [facility] Comment on above: Performed By: #### 2 4323-8 #### ADAM CALDERON ([id number]) [facility]) [address] [place] [address] Protein [Mass/Vol] 7.4 g/dL Normal 6.4-8.2 [facility] Comment on above: Performed By: #### 2 4323-8 #### ADAM CALDERON ([id number]) [facility] ([facility]) [address] [place] [address] Sodium [Moles/Vol] 138 mmol/L Normal 136-145 [facility] Comment on above: Performed By: #### 2 4323-8 #### ADAM CALDERON ([id number]) [facility] ([facility]) [address] [place] [address] Urea nitrogen [Mass/Vol] 21 mg/dL Normal 6-23 [facility] Comment on above: Performed By: #### 2 4323-8 #### ADAM CALDERON ([id number]) [facility] ([facility]) [address] [place] [address] HbA1c (Bld) [Mass fraction]o n 03-13-2024 Average glucose Estimated from glycated hemoglobin (Bld) [Mass/Vol] 148 mg/dL Normal Not Established [facility] Comment on above: Order Comment: Diagn osis of Diabetes-Adults Non-Diabetic: < or = 5.6% Increased risk for developing diabetes: 5.7-6.4% Diagnostic of diabetes: > or = 6.5% Monitoring of Diabetes Age (y)....................... Therapeutic Goal (%) Adults: >18.........................<7.0 Pediatrics: 13-18...................<7.5 Pediatrics: 7-12....................<8.0 Pediatrics: 0-6..................... 7.5-8.5 [place] [employer]. Diabetes Care 33(S1), Nov 2009 Performed By: #### 4 548-4 #### ADAM CALDERON ([id number]) [facility] ([facility]) [address] [place] [address] Hemoglobin A1c/Hemoglobin.to milan 03-13-2024 HbA1c (Bld) [Mass fraction] 6.8 % High see below [facility] Comment on above: Order Comment: Diagn osis of Diabetes-Adults Non-Diabetic: < or = 5.6% Increased risk for developing diabetes: 5.7-6.4% Diagnostic of diabetes: > or = 6.5% Monitoring of Diabetes Age (y)....................... Therapeutic Goal (%) Adults: >18.........................<7.0 Pediatrics: 13-18...................<7.5 Pediatrics: 7-12....................<8.0 Pediatrics: 0-6..................... 7.5-8.5 [place] [employer]. Diabetes Care 33(S1), Nov 2009 Performed By: #### 4 548-4 #### ADAM CALDERON ([id number]) [facility] ([facility]) [address] [place] [address] Thyrotropinon 03-13-2024 TSH Qn 0.79 m[IU]/L Normal 0.44-3.98 [facility] Comment on above: Order Comment: TSH t esting is performed using different testing methodology at [facility] than at other [facility]. Direct result comparisons should only be made within the same method. Performed By: #### 3 016-3 #### ADAM CALDERON ([id number]) [facility] ([facility]) [address] [place] [address] Edwin 03-09-2024 L Specimen: [id number] Received: 03/09/24 Status: [facility] Num: [id number] Spec Type: Surgical Subm Dr: Zuhair Grubbs,DPM, MS Tissues: A Bone Biopsy/Currettings (BX RT TIBIA BONE) B Bone Biopsy/Currettings (RT TALUS BONE BX) C Bone Biopsy/Currettings (BX RT CALCANEOUS BONE) Procedures: HE/6, Gross/Micro L5/3, Decalcification/3 Age/ Patient Sex Location Account Attending Physician Darshna LABELL [id number] Zuhair Grubbs DPM, MS SPEC NUM: [id number] RECD: 03/09/24 STATUS: KADIE LEESaulo NUM: [id number] TATIANNA: 03/09/24 [facility] [address]: Zuhair Grubbs DPM, MS ENTERED: 03/09/[address] [facility] [address]: Orestes,Lab SPEC TYPE: Surgical DEPT: [...] cm, entirely submitted in A1 following Specimen: [id number] Received: 03/09/24 Status: KADIE Kiley Num: [id number] Spec Type: Surgical Subm Dr: Zuhair Grubbs DPM, MS Tissues: A Bone Biopsy/Currettings (BX RT TIBIA BONE) B Bone Biopsy/Currettings (RT TALUS BONE BX) C Bone Biopsy/Currettings (BX RT CALCANEOUS BONE) Procedures: HE/6, Gross/Micro L5/3, Decalcification/3 Patient: Darshan,Marie [id number] (Continued) Specimen: [id number] Received: 03/09/24 (Continued) Gross Description (Continued) Signed (signature on file) Darci Castro MD 03/13/24 1653 Specimen: [id number] Received: 03/09/24 Status: KADIE Cao Num: [id number] Spec Type: Surgical Subm Dr: Zuhair Grubbs,FLASH, MS Tissues: A Bone Biopsy/Currettings (BX RT TIBIA BONE) B Bone Biopsy/Currettings (RT TALUS BONE BX) C Bone Biopsy/Currettings (BX RT CALCANEOUS BONE) Procedures: HE/6, Gross/Micro L5/3, Decalcification/3 Patient: DarshanMarie [id number] (Continued) Specimen: [id number] Received: 03/09/24 (Continued) Gross Description (Continued) decalcification. [...] joint right ankle and foot CPT Codes 32863t3, 58526x1 Specimen: [id number] Received: 03/09/24 Status: KADIE Cao Num: [id number] Spec Type: Surgical Subm Dr: Zuhair Grubbs,FLASH, MS Tissues: A Bone Biopsy/Currettings (BX RT TIBIA BONE) B Bone Biopsy/Currettings (RT TALUS BONE BX) C Bone Biopsy/Currettings (BX RT CALCANEOUS BONE) Procedures: HE/6, Gross/Micro L5/3, Decalcification/3 Patient: Darshan,Marie [id number] (Continued) Signed (signature on file) Darci Castro MD 03/13/24 1653 Normal [facility] Comprehensive metabolic 2000 panelon 11-26-2023 Albumin BCP dye [Mass/Vol] 4.6 g/dL Normal 3.4-5.0 [facility] Comment on above: Performed By: #### 2 4323-8 #### ADAM CALDERON ([id number]) [facility] ([facility]) [address] [place] [address] ALP [Catalytic activity/Vol] 52 U/L Normal 33-136 [facility] Comment on above: Performed By: #### 2 4323-8 #### ADAM CALDERON ([id number]) [facility] ([facility]) [address] [place] [address] ALT With P-5'-P [Catalytic activity/Vol] 17 U/L Normal 7-45 [facility] Comment on above: Result Comment: Shaista ents treated with Sulfasalazine may generate falsely decreased results for ALT. Performed By: #### 2 4323-8 #### ADAM CALDERON ([id number]) [facility] ([facility]) [address] [place] [address] Anion gap [Moles/Vol] 14 mmol/L Normal 10-20 [facility] Comment on above: Performed By: #### 2 432-8 #### ADAM CALDERON ([id number]) [facility]) [address] [place] [address] AST With P-5'-P [Catalytic activity/Vol] 16 U/L Normal 9-39 [facility] Comment on above: Performed By: #### 2 4323-8 #### ADAM CALDERON ([id number]) [facility] ([facility]) [address] [place] [address] Bilirubin [Mass/Vol] 0.6 mg/dL Normal 0.0-1.2 [facility] Comment on above: Performed By: #### 2 4323-8 #### ADAM CALDERON ([id number]) [facility] ([facility]) [address] [place] [address] Calcium [Mass/Vol] 10.0 mg/dL Normal 8.6-10.3 [facility] Comment on above: Performed By: #### 2 4323-8 #### ADAM CALDERON ([id number]) [facility] ([facility]) [address] [place] [address] Chloride [Moles/Vol] 99 mmol/L Normal 98-107 [facility] Comment on above: Performed By: #### 2 4323-8 #### ADAM CADLERON ([id number]) [facility] ([facility]) [address] [place] [address] CO2 [Moles/Vol] 28 mmol/L Normal 21-32 [facility] Comment on above: Performed By: #### 2 4323-8 #### ADAM CALDERON ([id number]) [facility] ([facility]) [address] [place] [address] Creatinine [Mass/Vol] 1.07 mg/dL High 0.50-1.05 [facility] Comment on above: Performed By: #### 2 4323-8 #### ADAM CALDERON ([id number]) [facility]) [address] [place] [address] Glomerular filtration rate/1.73 sq M.predicted 59 mL/min/1.73m*2 Low >60 [facility] Comment on above: Result Comment: Calc ulations of estimated GFR are performed using the 2020 CKD-EPI Study Refit equation without the race variable for the IDMS-Traceable creatinine methods. https://jasn.asnjournals.org/content/early/ASN.2279431 988 Performed By: #### 2 4323-8 #### ADAM CALDERON ([id number]) [facility] ([facility]) [address] [place] [address] Glucose [Mass/Vol] 92 mg/dL Normal 74-99 [facility] Comment on above: Performed By: #### 2 4323-8 #### ADMA CALDERON ([id number]) [facility] ([facility]) [address] [place] [address] Potassium [Moles/Vol] 4.2 mmol/L Normal 3.5-5.3 [facility] Comment on above: Performed By: #### 2 4323-8 #### ADAM CALDERNO ([id number]) [facility] ([facility]) [address] [place] [address] Protein [Mass/Vol] 7.1 g/dL Normal 6.4-8.2 [facility] Comment on above: Performed By: #### 2 4323-8 #### ADAM CALDERON ([id number]) [facility]) [address] [place] [address] Sodium [Moles/Vol] 137 mmol/L Normal 136-145 [facility] Comment on above: Performed By: #### 2 4323-8 #### ADAM CALDERON ([id number]) [facility] ([facility]) [address] [place] [address] Urea nitrogen [Mass/Vol] 20 mg/dL Normal 6-23 [facility] Comment on above: Performed By: #### 2 4323-8 #### ADAM CALDERON ([id number]) [facility] ([facility]) [address] [place] [address] HbA1c (Bld) [Mass fraction]o n 11-26-2023 Average glucose Estimated from glycated hemoglobin (Bld) [Mass/Vol] 163 mg/dL Normal Not Established [facility] Comment on above: Order Comment: Diagn osis of Diabetes-Adults Non-Diabetic: < or = 5.6% Increased risk for developing diabetes: 5.7-6.4% Diagnostic of diabetes: > or = 6.5% Monitoring of Diabetes Age (y)....................... Therapeutic Goal (%) Adults: >18.........................<7.0 Pediatrics: 13-18...................<7.5 Pediatrics: 7-12....................<8.0 Pediatrics: 0-6..................... 7.5-8.5 [place] [employer]. Diabetes Care 33(S1), Nov 2009 Performed By: #### 4 548-4 #### ADAM CALDERON ([id number]) [facility] ([facility]) [address] [place] [address] Hemoglobin A1c/Hemoglobin.to milan 11-26-2023 HbA1c (Bld) [Mass fraction] 7.3 % High see below [facility] Comment on above: Order Comment: Diagn osis of Diabetes-Adults Non-Diabetic: < or = 5.6% Increased risk for developing diabetes: 5.7-6.4% Diagnostic of diabetes: > or = 6.5% Monitoring of Diabetes Age (y)....................... Therapeutic Goal (%) Adults: >18.........................<7.0 Pediatrics: 13-18...................<7.5 Pediatrics: 7-12....................<8.0 Pediatrics: 0-6..................... 7.5-8.5 [place] [employer]. Diabetes Care 33(S1), Nov 2009 Performed By: #### 4 548-4 #### ADAM CALDERON ([id number]) [facility] ([facility]) [address] [place] [address] Lipid 1996 panelon 4 Cholesterol [Mass/Vol] 185 mg/dL Normal 0-199 [facility] Comment on above: Result Comment: Age [...] By: #### 2 4331-1 #### ADAM CALDERON ([id number]) [facility] ([facility]) [address] [place] [address] Cholesterol in HDL [Mass/Vol] 34.5 mg/dL Normal [facility] Comment on above: Result Comment: Age Very Low Low Normal High 0-19 Y < 35 < 40 40-45 ---- 20-24 Y ---- < 40 >45 ---- >24 Y ---- < 40 40-60 >60 Performed By: #### 2 4331-1 #### ADAM CALDERON ([id number]) [facility]) [address] [place] [address] Cholesterol in LDL [Mass/Vol] 95 mg/dL Normal <=99 [facility] Comment on above: Result Comment: Near Borderline AGE Desirable Optimal High High Very High 0-19 Y 0 - 109 --- 110-129 >/= 130 ---- 20-24 Y 0 - 119 --- 120-159 >/= 160 ---- >24 Y 0 - 99 100-129 130-159 160-189 >/=190 Performed By: #### 2 4331-1 #### ADAM CALDERON ([id number]) [facility] ([facility]) [address] [place] [address] Cholesterol in VLDL [Mass/Vol] 55 mg/dL High 0-40 [facility] Comment on above: Performed By: #### 2 4331-1 #### ADAM CALDERON ([id number]) [facility] ([facility]) [address] [place] [address] CHOLESTEROL/HDL RATIO 5.4 Normal [facility] Comment on above: Result Comment: Ref Values Desirable < 3.4 High Risk > 5.0 Performed By: #### 2 4331-1 #### ADAM CALDERON ([id number]) [facility]) [address] [place] [address] NON HDL CHOLESTEROL 151 mg/dL High 0-149 [facility] Comment on above: Result Comment: Age Desirable Borderline High High Very High 0-19 Y 0 - 119 120 - 144 >/= 145 >/= 160 20-24 Y 0 - 149 150 - 189 >/= 190 ---- >24 Y 30 mg/dL above LDL Cholesterol goal Performed By: #### 2 4331-1 #### ADAM CALDERON ([id number]) [facility] ([facility]) [address] [facility] [place] [address] Triglyceride [Mass/Vol] 277 mg/dL High 0-149 [facility] Comment on above: Result Comment: Age [...] By: #### 2 4331-1 #### ADAM CALDERON ([id number]) [facility] ([facility]) [address] [place] [address] Thyrotropinon 11-26-2023 TSH Qn 0.72 m[IU]/L Normal 0.44-3.98 [facility] Comment on above: Order Comment: TSH t esting is performed using different testing methodology at [facility] than at other [facility]. Direct result comparisons should only be made within the same method. Performed By: #### 3 016-3 #### ADAM CALDERON ([id number]) [facility] ([facility]) [address] [place] [address] Thyroxine.freeon 11-26-2023 Free T4 [Mass/Vol] 1.24 ng/dL High 0.61-1.12 [facility] Comment on above: Order Comment: Thyro xine Free testing is performed using different testing methodology at [facility] than at other [facility]. Direct result comparisons should only be [...] By: #### 3 024-7 #### ADAM CALDERON ([id number]) [facility] ([facility]) [address] [place] [address] Shanon 11-25-2023 CN Office Visit (ORTHLD ) DARSHANMARIE TRINIDAD ([id number]) 1960 F Date Time Provider Department 11/25/23 [...] No di (more content not included)... 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, 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]) Surgeons: Macario Santos DPM Responsible Provider: Luc [...] November 10, 2023 TIME: 2:34 PM CSN: [id number] [facility] ANES PRE-OPon 11-10-2023 ANES PRE-OP HNO ID: [id number] Author: Serafin Partida MD Service: Anesthesiology Author Type: Anesthesiologist Type: Anesthesia Preprocedure Evaluation Filed: 11/10/2023 12:54 PM Note Text: ANESTHESIOLOGY DAY OF SURGERY NOTE : 1960 Procedure Information Date/Time: 11/10/23 1325 Procedures: REMOVAL HARDWARE FOOT (Right: Foot) - POPLITEAL BLOCK Adrian serrano aware of case - kf have available [facility] extraction set 1 and 2 ARTHRODESIS MIDTARSAL OR TARSOMETATARSAL, MULTIPLE OR TRANSVERSE (Right: Foot) ARTHRODESIS FOOT (Right: Foot) Location: [facility] OR12 / [facility] OR Surgeons: Macario Santos [...] puffs by (more content not included)... Normal [facility] BRIEF OP NOTon 11-10-2023 BRIEF OP NOT HNO ID: [id number] Author: Macario Santos DPM Service: Podiatry Author Type: Physician Type: Brief Op Note Filed: 11/10/2023 2:08 PM Note Text: PODIATRIC SURGERY BRIEF OPERATIVE NOTE LOG ID: [id number] Surgery/Procedure Date: 11/10/2023 Incision/Procedure Start Time: 1:25 PM Incision Close/Procedure End Time: Surgeon(s)/Proceduralis t(s) and Emergency Services Director(s): Surgeon(s) and Role: * Macario Santos DPM - Primary * Alek Mclaughlin DPM - Resident - Assisting Physician Emergency Services Director: Rhoda Weston PA-C Procedure(s): Right removal of [...] 10, 2023 TIME: 2:06 PM PAGER/CONTACT #: [phone] (Pager/Cell) Normal [facility] Bacteria Spec Anaerobe Culto n 11-10-2023 Bacteria identified Anaer cx Nom (Unsp spec) Negative Normal [facility] Comment on above: Performed By: #### 6 35-3, 34607-8, 14303-5 ####[facility] [id number] [place] [address] [place] Bacteria Tiss Culton 023 Bacteria identified Cx Nom (Tiss) CULTURE, TISSUE: No growth GRAM STAIN: No organisms seen No Polymorphonuclear Leukocytes Normal [facility] Comment on above: Performed By: #### 6 35-3, 91803-8, 02464-5 ####[facility] [id number] [place] [address] [place] Microorganism Spec Culton Microorganism identified Cx Nom (Unsp spec) CULTURE, FUNGAL: No Fungus isolated after 28 days FUNGAL SMEAR: No fungus seen [facility] Comment on above: Performed By: #### 6 35-3, 89414-6, 18375-1 ####[facility] [id number] [address] [address] [place] Microorganism identified Cx Nom (Unsp spec) CULTURE, AFB: No Acid Fast Bacilli isolated after 42 days AFB STAIN: No acid fast bacilli seen by flurochrome stain [facility] Comment on above: Performed By: #### 6 35-3, 81355-9, 70737-4 ####[facility]CLIA [id number] [address] [address] [place] NURSING PROGon 11-10-2023 NURSING PROG HNO ID: [id number] Author: Blanca Tomas RN Service: ? Author [...] (RECOMMENDATION): None Electronically Signed By: Blanca Tomas [facility] NURSING PROG HNO ID: [id number] Author: Brigette Stallworth RN Service: Pain Management Author Type: Registered Nurse Type: Nursing Progress Note Filed: 11/10/2023 12:39 PM Note Text: RIGHT popliteal single shot nerve block and RIGHT adductor canal single shot nerve block Dr. Stanley and Dr. Rodrigues Patient verbalized understanding of nerve block procedure. Patient tolerated procedure very well; report given to primary nurse. [facility] NURSING PROG HNO ID: [id number] Author: Jenni Zarco RN Service: ? Author [...] (RECOMMENDATION): None Electronically Signed By: Jenni Zarco [facility] OPERATIVE NOon 11-10-2023 OPERATIVE NO HNO ID: [id number] Author: Macario Sanots DPM Service: Podiatry Author Type: Physician Type: Operative Report Filed: 11/12/2023 8:42 AM Note Text: SURGERY OPERATIVE NOTE LOG ID: [id number] Surgery/Procedure Date: 11/10/2023 Incision/Procedure Start Time: 1:25 PM Incision Close/Procedure End Time: 2:17 PM Surgeon(s)/Proceduralis t(s) and Emergency Services Director(s): Surgeon(s) and Role: * Macario Santos DPM - Primary * Alek Mclaughlin DPM - Resident - Assisting Physician Emergency Services Director: Rhoda Weston PA-C PRE-OP/PRE-PROCEDURE DIAGNOSIS: Right foot [...] impregnated cement was then prepared per the bacteriologist dairy's recommended technique and then placed into the [...] 12, 2023 TIME: 8:37 AM PAGER/CONTACT #: [phone] (Pager/Cell) Normal [facility] SURGICAL PATHOLOGYon 023 CASE REPORT Normal [facility] Comment on above: Order Comment: Speci men Type: SPECIMEN FROM BONEOrdering Facility: [facility] Address: [address] [place] [address] Result Comment: Surg ical Pathology Report Case: [id number] Authorizing Provider: Macario Santos Collected: 11/10/2023 01:43 PM FLASH Zuniga Ordering Location: [facility] Received: 11/10/2023 02:35 PM Operating Room Pathologist: Laina Álvarez MD Specimen: BONE RESECTION, right non union talus Performed By: #### S ####[facility]IA [id number] [address] STATES OF [facility] 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 B one and soft tissue, right, nonunion talus bone, resection: - Soft tissue with reactive changes, chronic inflammation and foreign body-type giant cell reaction. - Fragments of necrotic bone. Performed By: #### S ####[facility] [id number] [address] LABORATORYCLIA [id number] [address] OF [facility] FINAL PERFORMING LAB Normal [facility] Comment on above: Order Comment: Speci men Type: SPECIMEN FROM BONEOrdering Facility: [facility] Address: [address] [place] [address] Result Comment: Diag nostic interpretation performed at [facility], [address] [id number] CLIA# [id number] Customer Professional: Sarwat Enamorado M.D. Performed By: #### S ####[facility]CLIA [id number] [address] LABORATORYCLIA [id number] [address] OF [facility] GROSS DESCRIPTION Normal [facility] Comment on above: Order Comment: Speci men Type: SPECIMEN FROM BONEOrdering Facility: [facility] Address: [address], [place] [address] Result Comment: A. 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 Totally submitted in 1 cassette following decalcification. MLG November 11, 2023 9:03 AM Gross examination performed at [facility], [address] [place] [address] Performed By: #### S ####[facility] [id number] [address] LABORATORYCLIA [id number] [address] XR FOOT 2V AP/LAT RTon 11-10 [...] IMPRESSION: Please see operative note for details Director Critical Care: PSCB Transcribe Date/Time: Nov 10 2023 3:22P Dictated by : ARLIN CRUZ MD This examination was interpreted and the report reviewed and electronically signed by: ARLIN CRUZ MD on Nov 10 2023 3:24PM EST [id number] Normal [facility] CBC W Auto Differential pane l (Bld)on 11-03-2023 Basophils (Bld) [#/Vol] 0.05 10*3/uL Normal <0.11 [facility] Comment on above: Order Comment: Speci men Type: BLOOD SPECIMENOrdering Facility: [facility] Address: [address] [place] [address] Performed By: #### 5 7021-8 ####[facility]CLIA [id number] [place] [address] [place] Basophils/100 WBC (Bld) 0.6 % Normal [facility] Comment on above: Order Comment: Speci men Type: BLOOD SPECIMENOrdering Facility: [facility] Address: [address] [place] [address] Performed By: #### 5 7021-8 ####[facility]CLIA [id number] [place] [address] [place] Differential cell count method Nom (Bld) Auto Normal [facility] Comment on above: Order Comment: Speci men Type: BLOOD SPECIMENOrdering Facility: [facility] Address: [address] [place] [address] Performed By: #### 5 7021-8 ####[facility] LABCLIA [id number] [place] [address] [place] Eosinophils (Bld) [#/Vol] 0.41 10*3/uL Normal <0.46 [facility] Comment on above: Order Comment: Speci men Type: BLOOD SPECIMENOrdering Facility: [facility] Address: [address] [place] [address] Performed By: #### 5 7021-8 ####[facility]CLIA [id number] [place] [address] [place] Eosinophils/100 WBC (Bld) 4.9 % Normal [facility] Comment on above: Order Comment: Speci men Type: BLOOD SPECIMENOrdering Facility: [facility] Address: [address] [place] [address] Performed By: #### 5 7021-8 ####[facility]CLIA [id number] [place] [address] [place] Erythrocyte distribution width (RBC) [Ratio] 12.8 % Normal 11.5-15.0 [facility] Comment on above: Order Comment: Speci men Type: BLOOD SPECIMENOrdering Facility: [facility] Address: [address] [place] [address] Performed By: #### 5 7021-8 ####[facility]CLIA [id number] [place] [address] [place] Hematocrit (Bld) [Volume fraction] 40.9 % Normal 36.0-46.0 [facility] Comment on above: Order Comment: Speci men Type: BLOOD SPECIMENOrdering Facility: [facility] Address: [address] [place] [address] Performed By: #### 5 7021-8 ####[facility] LABIA [id number] [place] [address] [place] Hemoglobin (Bld) [Mass/Vol] 12.9 g/dL Normal 11.5-15.5 [facility] Comment on above: Order Comment: Speci men Type: BLOOD SPECIMENOrdering Facility: [facility] Address: [address] [place] [address] Performed By: #### 5 7021-8 ####[facility] LABIA [id number] [place] [address] [place] Immature granulocytes (Bld) [#/Vol] 0.05 10*3/uL Normal <0.10 [facility] Comment on above: Order Comment: Speci men Type: BLOOD SPECIMENOrdering Facility: [facility] Address: [address] [place] [address] Performed By: #### 5 7021-8 ####[facility]CLIA [id number] [place] [address] [place] Immature granulocytes/100 WBC (Bld) 0.6 % Normal [facility] Comment on above: Order Comment: Speci men Type: BLOOD SPECIMENOrdering Facility: [facility] Address: [address] [place] [address] Performed By: #### 5 7021-8 ####[facility] LABCLIA [id number] [place] [address] [place] Lymphocytes (Bld) [#/Vol] 2.95 10*3/uL Normal 1.00-4.00 [facility] Comment on above: Order Comment: Speci men Type: BLOOD SPECIMENOrdering Facility: [facility] Address: [address] [place] [address] Performed By: #### 5 7021-8 ####[facility]CLIA [id number] [place] [address] [place] Lymphocytes/100 WBC (Bld) 35.2 % Normal [facility] Comment on above: Order Comment: Speci men Type: BLOOD SPECIMENOrdering Facility: [facility] Address: [address] [place] [address] Performed By: #### 5 7021-8 ####[facility] LABIA [id number] [place] [address] [place] MCH (RBC) [Entitic mass] 28.6 pg Normal 26.0-34.0 [facility] Comment on above: Order Comment: Speci men Type: BLOOD SPECIMENOrdering Facility: [facility] Address: [address] [place] [address] Performed By: #### 5 7021-8 ####[facility]CLIA [id number] [place] [address] [place] MCHC (RBC) [Mass/Vol] 31.5 g/dL Normal 30.5-36.0 [facility] Comment on above: Order Comment: Speci men Type: BLOOD SPECIMENOrdering Facility: [facility] Address: [address] [place] [address] Performed By: #### 5 7021-8 ####[facility] LABCLIA [id number] [place] [address] [place] MCV (RBC) [Entitic vol] 90.7 fL Normal 80.0-100.0 [facility] Comment on above: Order Comment: Speci men Type: BLOOD SPECIMENOrdering Facility: [facility] Address: [address] [place] [address] Performed By: #### 5 7021-8 ####[facility]CLIA [id number] [place] [address] [place] Monocytes (Bld) [#/Vol] 0.63 10*3/uL Normal <0.87 [facility] Comment on above: Order Comment: Speci men Type: BLOOD SPECIMENOrdering Facility: [facility] Address: [address] [place] [address] Performed By: #### 5 7021-8 ####[facility]CLIA [id number] [place] [address] [place] Monocytes/100 WBC (Bld) 7.5 % Normal [facility] Comment on above: Order Comment: Speci men Type: BLOOD SPECIMENOrdering Facility: [facility] Address: [address] [place] [address] Performed By: #### 5 7021-8 ####[facility]CLIA [id number] [place] [address] [place] Neutrophils (Bld) [#/Vol] 4.30 10*3/uL Normal 1.45-7.50 [facility] Comment on above: Order Comment: Speci men Type: BLOOD SPECIMENOrdering Facility: [facility] Address: [address] [place] [address] Performed By: #### 5 7021-8 ####[facility]CLIA [id number] [place] [address] [place] Neutrophils/100 WBC (Bld) 51.2 % Normal [facility] Comment on above: Order Comment: Speci men Type: BLOOD SPECIMENOrdering Facility: [facility] Address: [address] [place] [address] Performed By: #### 5 7021-8 ####[facility] LABCLIA [id number] [place] [address] [place] Nucleated RBC (Bld) [#/Vol] 10*3/uL Normal <0.01 [facility] Comment on above: Order Comment: Speci men Type: BLOOD SPECIMENOrdering Facility: [facility] Address: [address] [place] [address] Performed By: #### 5 7021-8 ####[facility] LABIA [id number] [place] [address] [place] Nucleated RBC/100 WBC (Bld) [Ratio] 0.0 /100 WBC Normal [facility] Comment on above: Order Comment: Speci men Type: BLOOD SPECIMENOrdering Facility: [facility] Address: [address] [place] [address] Performed By: #### 5 7021-8 ####[facility] LABIA [id number] [place] [address] [place] Platelet mean volume (Bld) [Entitic vol] 10.2 fL Normal 9.0-12.7 [facility] Comment on above: Order Comment: Speci men Type: BLOOD SPECIMENOrdering Facility: [facility] Address: [address] [place] [address] Performed By: #### 5 7021-8 ####[facility] LABIA [id number] [place] [address] [place] Platelets (Bld) [#/Vol] 315 10*3/uL Normal 150-400 [facility] Comment on above: Order Comment: Speci men Type: BLOOD SPECIMENOrdering Facility: [facility] Address: [address] [place] [address] Performed By: #### 5 7021-8 ####[facility]CLIA [id number] [place] [address] [place] RBC (Bld) [#/Vol] 4.51 10*6/uL Normal 3.90-5.20 [facility] Comment on above: Order Comment: Speci men Type: BLOOD SPECIMENOrdering Facility: [facility] Address: [address] [place] [address] Performed By: #### 5 7021-8 ####[facility]CLIA [id number] [address] [address] [place] WBC (Bld) [#/Vol] 8.39 10*3/uL Normal 3.70-11.00 [facility] Comment on above: Order Comment: Speci men Type: BLOOD SPECIMENOrdering Facility: [facility] Address: [address] [place] [address] Performed By: #### 5 7021-8 ####[facility] LABCLIA [id number] [place] [address] [place] Comprehensive metabolic 2000 panelon 11-03-2023 Albumin [Mass/Vol] 4.8 g/dL Normal 3.9-4.9 [facility] Comment on above: Order Comment: Speci men Type: BLOOD SPECIMENOrdering Facility: [facility] Address: [address] [place] [address] Performed By: #### 2 4323-8 ####[facility] LABCLIA [id number] [place] [address] [place] ALP [Catalytic activity/Vol] 73 U/L Normal 34-123 [facility] Comment on above: Order Comment: Speci men Type: BLOOD SPECIMENOrdering Facility: [facility] Address: [address] [place] [address] Performed By: #### 2 4323-8 ####[facility] LABIA [id number] [place] [id number] [place] ALT [Catalytic activity/Vol] 14 U/L Normal 7-38 [facility] Comment on above: Order Comment: Speci men Type: BLOOD SPECIMENOrdering Facility: [facility] Address: [address] [place] [address] Performed By: #### 2 4323-8 ####[facility] LABCLIA [id number] [place] [address] [place] Anion gap [Moles/Vol] 13 mmol/L Normal 9-18 [facility] Comment on above: Order Comment: Speci men Type: BLOOD SPECIMENOrdering Facility: [facility] Address: [address] [place] [address] Performed By: #### 2 4323-8 ####[facility]CLIA [id number] [place] [address] [place] AST [Catalytic activity/Vol] 17 U/L Normal 13-35 [facility] Comment on above: Order Comment: Speci men Type: BLOOD SPECIMENOrdering Facility: [facility] Address: [address] [place] [address] Performed By: #### 2 4323-8 ####[facility]CLIA [id number] [place] [address] [place] Bilirubin [Mass/Vol] 0.2 mg/dL Normal 0.2-1.3 [facility] Comment on above: Order Comment: Speci men Type: BLOOD SPECIMENOrdering Facility: [facility] Address: [address] [place] [address] Performed By: #### 2 4323-8 ####[facility] LABCLIA [id number] [place] [address] [place] Calcium [Mass/Vol] 10.7 mg/dL High 8.5-10.2 [facility] Comment on above: Order Comment: Speci men Type: BLOOD SPECIMENOrdering Facility: [facility] Address: [address] [place] [address] Performed By: #### 2 4323-8 ####[facility] LABCLIA [id number] [place] [address] [place] Chloride [Moles/Vol] 101 mmol/L Normal 97-105 [facility] Comment on above: Order Comment: Speci men Type: BLOOD SPECIMENOrdering Facility: [facility] Address: [address] [place] [address] Performed By: #### 2 4323-8 ####[facility]CLIA [id number] [place] [address] [place] CO2 [Moles/Vol] 28 mmol/L Normal 22-30 [facility] Comment on above: Order Comment: Speci men Type: BLOOD SPECIMENOrdering Facility: [facility] Address: [address] [place] [address] Performed By: #### 2 4323-8 ####[facility] LABIA [id number] [address] [place] Creatinine [Mass/Vol] 0.92 mg/dL Normal 0.58-0.96 [facility] Comment on above: Order Comment: Speci men Type: BLOOD SPECIMENOrdering Facility: [facility] Address: [address] [place] [address] Performed By: #### 2 4323-8 ####[facility] LABIA [id number] [address] [place] Creatinine and Glomerular filtration rate.predicted panel (S/P/Bld) 71 mL/min/1.73m??? Normal >=60 [facility] Comment on above: Order Comment: Speci men Type: BLOOD SPECIMENOrdering Facility: [facility] Address: [address] [place] [address] Result Comment: Luis mated Glomerular Filtration Rate [...] Performed By: #### 2 4323-8 ####[facility] LABCLIA [id number] [place] [address] [place] Glucose [Mass/Vol] 125 mg/dL High 74-99 [facility] Comment on above: Order Comment: Speci men Type: BLOOD SPECIMENOrdering Facility: [facility] Address: [address] [place] [address] Result Comment: The [place] [employer] (ADA) provides guidance for cutoff [...] Standards of Medical Care in Diabetes 2016, [place] [employer]. Diabetes Care. 2016.39(Suppl 1). Performed By: #### 2 4323-8 ####[facility] LABCLIA [id number] [place] [address] [place] Potassium [Moles/Vol] 4.9 mmol/L Normal 3.7-5.1 [facility] Comment on above: Order Comment: Speci men Type: BLOOD SPECIMENOrdering Facility: [facility] Address: [address] [place] [address] Performed By: #### 2 4323-8 ####[facility] LABCLIA [id number] [place] [address] [place] Protein [Mass/Vol] 7.8 g/dL Normal 6.3-8.0 [facility] Comment on above: Order Comment: Speci men Type: BLOOD SPECIMENOrdering Facility: [facility] Address: [address] [place] [address] Performed By: #### 2 4323-8 ####[facility] LABCLIA [id number] [place] [address] [place] Sodium [Moles/Vol] 142 mmol/L Normal 136-144 [facility] Comment on above: Order Comment: Speci men Type: BLOOD SPECIMENOrdering Facility: [facility] Address: [place] [address] Performed By: #### 2 4323-8 ####[facility] LABCLIA [id number] [place] [address] [place] Urea nitrogen [Mass/Vol] 25 mg/dL High 7-21 [facility] Comment on above: Order Comment: Speci men Type: BLOOD SPECIMENOrdering Facility: [facility] Address: [place] [address] Performed By: #### 2 4323-8 ####[facility] LABCLIA [id number] [address] [place] HISTORY PHYSICALon HISTORY PHYSICAL HNO ID: [id number] Author: Wiliam Daniels APRN.TECHNICAL SUPPORT COORDINATOR Service: ? Author Type: Nurse Practitioner Type: [...] large neck Non-male patient STOP-Bang Score: 2 [id number] Score: Age: <65 Sex: Female CHF history: No Hypertension history: Yes Stroke/TIA/thromboembol ism history: No Diabetes history: Yes [id number] Score: 3 ANESTHESIA FINDINGS: Intubation History: No [...] dyspnea, pratik (more content not included)... Normal [facility] HbA1c (Bld)on 11-03-2023 Average glucose Estimated from glycated hemoglobin (Bld) [Mass/Vol] 126 mg/dL Normal [facility] Comment on above: Order Comment: Shlomo ghosh Type: BLOOD SPECIMENOrdering Facility: [facility] Address: [address] [place] [address] Result Comment: eAG: (Estimated average glucose) is a calculated value from HgbA1c and is eligibility services representative of the average blood glucose level in the last 2-3 month period. Performed By: #### 5 5454-3 ####[facility] LABCLIA [id number] [facility] [id number] [place] [address] [place] HbA1c (Bld) [Mass fraction] 6.0 % High 4.3-5.6 [facility] Comment on above: Order Comment: Speci men Type: BLOOD SPECIMENOrdering Facility: [facility] Address: [address] [place] [address] Result Comment: Amer [place] Diabetes Association guidelines indicate that patients with HgbA1c in the range 5.7-6.4% are at increased risk for development of diabetes, and intervention by lifestyle modification may be beneficial. HgbA1c greater or equal to 6.5% is considered diagnostic of diabetes. Performed By: #### 5 5454-3 ####[facility] LABCLIA [id number] [facility] [id number] [place], [place] [id number] [place] CT ANKLE WO IVCON RTon 10-14 CT ANKLE WO IVCON RT * * *Final Report* * * DATE OF EXAM: Oct 14 2023 12:19PM [facility] 0061 - CT ANKLE WO IVCON RT [...] OF MULTIPLE SCREWS IN THE MIDFOOT DESCRIBED. Director Critical Care: SUBHASH Transcribe Date/Time: Oct 14 2023 12:22P Dictated by : LATRICIA LIN MD This examination was interpreted and the report reviewed and electronically signed by: LATRICIA LIN MD on Oct 14 2023 1:12PM EST [id number] Normal [facility] CNOVon 10-11-2023 CNOV Office Visit (ORTHLD ) MARIE SEXTON ([id number]) 1960 F Date Time Provider Department 10/11/23 [...] OBJECTIVE: Patient (more content not included)... Normal [facility] XR FOOT 3V AP/LAT/OBL BILon 10-11-2023 [...] foot pain Technique: XR FOOT 3V AP/LAT/OBL FRANCESOC -- BILATERAL with 5 views on 5 [...] left foot, possibly due to Charcot arthropathy Director Critical Care: SUBHASH Transcribe Date/Time: Oct 14 2023 9:07A Dictated by : REGI WOODS MD This examination was interpreted and the report reviewed and electronically signed by: REGI WOODS MD on Oct 14 2023 9:15AM EST [id number] Normal [facility] CNOVon 09-06-2023 CNOV Office Visit (JAE ) MARIE SEXTON ([id number]) 1960 F Date Time Provider Department 09/06/23 [...] peripheral weakness/ (more content not included)... Normal [facility] XR ANKLE 3V AP/LAT/OBL LTon 09-06-2023 [...] concern for Charcot foot. Please clinically correlate. Director Critical Care: SUBHASH Transcribe Date/Time: Sep 09 2023 8:54A Dictated by : AGAPITO PINZON MD This examination was interpreted and the report reviewed and electronically signed by: AGAPITO PINZON MD on Sep 09 2023 9:15AM EST [id number] Normal [facility] XR ANKLE 3V AP/LAT/OBL RTon 09-06-2023 [...] concern for Charcot foot. Please clinically correlate. Director Critical Care: SUBHASH Transcribe Date/Time: Sep 09 2023 8:54A Dictated by : AGAPITO PINZON MD This examination was interpreted and the report reviewed and electronically signed by: AGAPITO PINZON MD on Sep 09 2023 9:15AM EST [id number] Normal [facility] CNOVon 08-05-2023 CNOV Office Visit (ORTHLD ) DARSHANMARIE TRINIDAD ([id number]) 1960 F Date Time Provider Department 08/05/23 [...] ROS obtain (more content not included)... Normal [facility] XR ANKLE 3V AP/LAT/OBL RTon 08-05-2023 [...] joints visible in the lateral projection only. Director Critical Care: PSCB Transcribe Date/Time: Aug 09 2023 12:30P Dictated by : REGI WOODS MD This examination was interpreted and the report reviewed and electronically signed by: REGI WOODS MD on Aug 09 2023 12:34PM EST [id number] Normal [facility] ALBUMIN, URINE SPOTon 2022 ALBUMIN,URINE <7.0 Normal Not Established [facility] Comment on above: Performed By: #### A LBSP #### [facility] [address] [place] [address] ALBUMIN/CREAT RATIO SEE COMMENT Normal 0.0 - 30.0 [facility] Comment on above: Result Comment: One or more analytes used in this calculation is outside of the analytical measurement range. Calculation cannot be performed. Performed By: #### A LBSP #### [facility] [address] [place] [address] CREATININE,URINE 147.0 mg/dL Normal 20.0 - 320.0 [facility] Comment on above: Performed By: #### A LBSP #### [facility] [address] [place] [address] CBC AND DIFFERENTIALon 07-27 % AUTOMATED IMMATURE GRAN 0.3 % Normal 0.0 - 0.9 [facility] Comment on above: Result Comment: Coni ture Granulocyte Count (IG) includes promyelocytes, myelocytes and metamyelocytes but does not include bands. Percent differential counts (%) should be interpreted in the context of the absolute cell counts (cells/L). Performed By: #### C BCDF #### [address] [address] Basophils (Bld) [#/Vol] 0.06 10*3/uL Normal 0.00 - 0.10 [facility] Comment on above: Performed By: #### C BCDF #### [address] [address] Basophils/100 WBC (Bld) 0.9 % Normal 0.0 - 2.0 [facility] Comment on above: Performed By: #### C BCDF #### [address] [address] Eosinophils (Bld) [#/Vol] 0.28 10*3/uL Normal 0.00 - 0.70 [facility] Comment on above: Performed By: #### C BCDF #### [address] [address] Eosinophils/100 WBC (Bld) 4.1 % Normal 0.0 - 6.0 [facility] Comment on above: Performed By: #### C BCDF #### [address] [address] Erythrocyte distribution width (RBC) [Ratio] 12.6 % Normal 11.5 - 14.5 [facility] Comment on above: Performed By: #### C BCDF #### [address] [address] Hematocrit (Bld) [Volume fraction] 40.3 % Normal 36.0 - 46.0 [facility] Comment on above: Performed By: #### C BCDF #### [address] [address] Hemoglobin (Bld) [Mass/Vol] 13.0 g/dL Normal 12.0 - 16.0 [facility] Comment on above: Performed By: #### C BCDF #### [address] [address] Lymphocytes (Bld) [#/Vol] 2.95 10*3/uL Normal 1.20 - 4.80 [facility] Comment on above: Performed By: #### C BCDF #### [address] [place] [address] Lymphocytes/100 WBC (Bld) 42.8 % Normal 13.0 - 44.0 [facility] Comment on above: Performed By: #### C BCDF #### [address] [address] MCHC (RBC) [Mass/Vol] 32.3 g/dL Normal 32.0 - 36.0 [facility] Comment on above: Performed By: #### C BCDF #### [address] [address] MCV (RBC) [Entitic vol] 91 fL Normal 80 - 100 [facility] Comment on above: Performed By: #### C BCDF #### [address] [address] Monocytes (Bld) [#/Vol] 0.54 10*3/uL Normal 0.10 - 1.00 [facility] Comment on above: Performed By: #### C BCDF #### [address] [address] Monocytes/100 WBC (Bld) 7.8 % Normal 2.0 - 10.0 [facility] Comment on above: Performed By: #### C BCDF #### [address] [address] Neutrophils (Bld) [#/Vol] 3.05 10*3/uL Normal 1.20 - 7.70 [facility] Comment on above: Performed By: #### C BCDF #### [address] [address] Neutrophils/100 WBC (Bld) 44.1 % Normal 40.0 - 80.0 [facility] Comment on above: Performed By: #### C BCDF #### [address] [address] NUCLEATED RBC 0.0 /100 WBC Normal 0.0 - 0.0 [facility] Comment on above: Performed By: #### C BCDF #### [address] [address] Platelets (Bld) [#/Vol] 358 10*3/uL Normal 150 - 450 [facility] Comment on above: Performed By: #### C BCDF #### [facility] [address] [place] [address] RBC 4.42 x10E12/L Normal 4.00 - 5.20 [facility] Comment on above: Performed By: #### C BCDF #### [facility] [address] [place] [address] WBC (Bld) [#/Vol] 6.9 10*3/uL Normal 4.4 - 11.3 [facility] Comment on above: Performed By: #### C BCDF #### [facility] [address] [place] [address] COMPREHENSIVE PANELon 2022 Albumin [Mass/Vol] 4.5 g/dL Normal 3.4 - 5.0 [facility] Comment on above: Performed By: #### C OVSC #### [facility] [address] [place] [address] ALP [Catalytic activity/Vol] 85 U/L Normal 33 - 136 [facility] Comment on above: Performed By: #### C OVSC #### [facility] [address] [place] [address] ALT [Catalytic activity/Vol] 14 U/L Normal 7 - 45 [facility] Comment on above: Result Comment: Shaista ents treated with Sulfasalazine may generate falsely decreased results for ALT. Performed By: #### C OVSC #### [facility] [address] [place] [address] Anion gap [Moles/Vol] 11 mmol/L Normal 10 - 20 [facility] Comment on above: Performed By: #### C OVSC #### [facility] [address] [place] [address] AST [Catalytic activity/Vol] 14 U/L Normal 9 - 39 [facility] Comment on above: Performed By: #### C OVSC #### [facility] [address] [place] [address] Bilirubin [Mass/Vol] 0.4 mg/dL Normal 0.0 - 1.2 [facility] Comment on above: Performed By: #### C OVSC #### [facility] [address] [place] [address] Calcium [Mass/Vol] 9.7 mg/dL Normal 8.6 - 10.3 [facility] Comment on above: Performed By: #### C OVSC #### [facility] [address] [place] [address] Chloride [Moles/Vol] 105 mmol/L Normal 98 - 107 [facility] Comment on above: Performed By: #### C OVSC #### [facility] [address] [place] [address] Creatinine [Mass/Vol] 1.06 mg/dL High 0.50 - 1.05 [facility] Comment on above: Performed By: #### C OVSC #### [facility] [address] [place] [address] GFR/1.73 sq M.predicted among non-blacks MDRD (S/P/Bld) [Vol rate/Area] 59 mL/min/{1.73_m2} Abnormal >90 [facility] Comment on above: Result Comment: CALC ULATIONS OF ESTIMATED GFR ARE PERFORMED USING THE 2020 CKD-EPI STUDY REFIT EQUATION WITHOUT THE RACE VARIABLE FOR THE IDMS-TRACEABLE CREATININE METHODS. https://jasn.asnjournals.org/content//ASN.5584965 988 Performed By: #### C OVSC #### [facility] [address] [place] [address] Glucose [Mass/Vol] 109 mg/dL High 74 - 99 [facility] Comment on above: Performed By: #### C OVSC #### [facility] [address] [place] [address] HCO3 (Bld) [Moles/Vol] 28 mmol/L Normal 21 - 32 [facility] Comment on above: Performed By: #### C OVSC #### [facility] [address] [place] [address] Potassium [Moles/Vol] 4.2 mmol/L Normal 3.5 - 5.3 [facility] Comment on above: Performed By: #### C OVSC #### [facility] [address] [place] [address] Protein [Mass/Vol] 7.7 g/dL Normal 6.4 - 8.2 [facility] Comment on above: Performed By: #### C OVSC #### [facility] [address] [place] [address] Sodium [Moles/Vol] 140 mmol/L Normal 136 - 145 [facility] Comment on above: Performed By: #### C OVSC #### [facility] [address] [place] [address] Urea nitrogen [Mass/Vol] 23 mg/dL Normal 6 - 23 [facility] Comment on above: Performed By: #### C OVSC #### [facility] [address] [place] [address] HEMOGLOBIN A1Con 07-27-2023 Glucose [Mass/Vol] 128 mg/dL Normal [facility] Comment on above: Performed By: #### A LBSP #### [facility] [address] [place] [address] HbA1c (Bld) [Mass fraction] 6.1 % Abnormal [facility] Comment on above: Result Comment: Diag nosis of Diabetes-Adults Non-Diabetic: < or = 5.6% Increased risk for developing diabetes: 5.7-6.4% Diagnostic of diabetes: > or = 6.5% . Monitoring of Diabetes Age (y) Therapeutic Goal (%) Adults: >18 <7.0 Pediatrics: 13-18 <7.5 7-12 <8.0 0- 6 7.5-8.5 [place] [employer]. Diabetes Care 33(S1), Nov 2009. Performed By: #### A LBSP #### [facility] [address] [place] [address] LDL, DIRECTon 07-27-2023 Cholesterol in LDL [Mass/Vol] 106 mg/dL Normal 0 - 129 [facility] Comment on above: Result Comment: Elev ated levels of LDL cholesterol are recognized as a fisher factor in the development of atherosclerosis and CHD. The direct LDL cholesterol test can be used to assess cardiovascular risk and monitor therapy as a follow up to a lipid profile when triglycerides are significantly elevated. Performed By: #### A LBSP #### [facility] [address] [place] [address] LIPID PANEL (CORONARY RISK 2 )on 07-27-2023 Cholesterol [Mass/Vol] 183 mg/dL Normal 0 - 199 [facility] Comment on above: Result Comment: . AGE [...] dosing. Performed By: #### C OVSC #### [facility] [address] [place] [address] Cholesterol in HDL [Mass/Vol] 33.1 mg/dL Abnormal [facility] Comment on above: Result Comment: . AGE VERY LOW LOW NORMAL HIGH 0-19 Y < 35 < 40 40-45 ---- 20-24 Y ---- < 40 >45 ---- >24 Y ---- < 40 40-60 >60 . Performed By: #### C OVSC #### [facility] [address] [place] [address] Cholesterol in LDL [Mass/Vol] 92 mg/dL Normal 0 - 99 [facility] Comment on above: Result Comment: . NEAR BORD AGE DESIRABLE OPTIMAL HIGH HIGH VERY HIGH 0-19 Y 0 - 109 --- 110-129 >/= 130 ---- 20-24 Y 0 - 119 --- 120-159 >/= 160 ---- >24 Y 0 - 99 100-129 130-159 160-189 >/=190 . Performed By: #### C OVSC #### [facility] [address] [place] [address] Cholesterol in VLDL [Mass/Vol] 58 mg/dL High 0 - 40 [facility] Comment on above: Performed By: #### C OVSC #### [facility] [address] [place] [address] Cholesterol.total/Ch olesterol in HDL [Mass ratio] 5.5 {ratio} Abnormal [facility] Comment on above: Result Comment: REF VALUES DESIRABLE < 3.4 HIGH RISK > 5.0 Performed By: #### C OVSC #### [facility] [address] [place] [address] NON-HDL CHOLESTEROL 150 mg/dL Normal [facility] Comment on above: Result Comment: AGE DESIRABLE BORDERLINE HIGH HIGH VERY HIGH 0-19 Y 0 - 119 120 - 144 >/= 145 >/= 160 20-24 Y 0 - 149 150 - 189 >/= 190 ---- >24 Y 30 MG/DL ABOVE LDL CHOLESTEROL GOAL . Performed By: #### C OVSC #### [facility] [address] [place] [address] Triglyceride [Mass/Vol] 288 mg/dL High 0 - 149 [facility] Comment on above: Result Comment: . AGE [...] dosing. Performed By: #### C OVSC #### [facility] [address] [place] [address] TSHon 07-27-2023 TSH Qn 0.61 m[IU]/L Normal 0.44 - 3.98 [facility] Comment on above: Result Comment: TSH testing is performed using different testing methodology at [facility] than at other [facility]. Direct result comparisons should only be made within the same method. Performed By: #### A LBSP #### [facility] [address] [place] [address] VITAMIN B12on 07-27-2023 Cobalamin (Vitamin B12) [Mass/Vol] 1408 pg/mL High 211 - 911 [facility] Comment on above: Performed By: #### V TB12 #### [facility] [address] [place] [address] VITAMIN D, 25-HYDROXYon 07-16 VITAMIN D, 25-HYDROXY 50 ng/mL Normal [facility] Comment on above: Result Comment: . DEFICIENCY: < 20 NG/ML INSUFFICIENCY: 20-29 NG/ML SUFFICIENCY: 30-100 NG/ML THIS ASSAY ACCURATELY QUANTIFIES THE SUM OF VITAMIN D3, 25-HYDROXY AND VIT D2,25-HYDROXY. Performed By: #### V TDOH #### [facility] [address] [place] [address] ALLIED HEALTHon 07-02-2023 ALLIED HEALTH HNO ID: [id number] Author: Francesca Kaur Service: Radiology Author Type: ? Type: Allied Health Filed: 07/02/2023 10:12 AM Note Text: RADIOLOGY SERVICE PROGRESS NOTE DATE OF SERVICE: July 02, 2023 TIME OF SERVICE: 10:03AM EVENT: ARRIVED IN WHEELCHAIR ADDITIONAL EVENT DETAILS: NA SIGNATURE: Francesca Kaur PATIENT NAME: Marie Sexton DATE: July 02, 2023 TIME: 10:12 AM PAGER/CONTACT #: [facility] CNOVon 07-02-2023 CNOV Office Visit (ORFWHP ) MARIE SEXTON ([id number]) 1960 F Date Time Provider Department 07/02/23 10:45 AM MACARIO SANTOS ORFWHP During your visit today, [...] No new joint (more content not included)... [facility] XR ANKLE 3V AP/LAT/OBL RTon 07-02-2023 [...] appears intact. Pes planus. IMPRESSION: Postsurgical changes. Director Critical Care: SUBHASH Transcribe Date/Time: Jul 07 2023 7:59A Dictated by : SREE BUTST MD This examination was interpreted and the report reviewed and electronically signed by: SREE BUTTS MD on Jul 07 2023 8:02AM EST [id number] [facility] CNOVon 06-07-2023 CNOV Office Visit (ORTHLD ) MARIE SEXTON ([id number]) 1960 F Date Time Provider Department 06/07/23 [...] habits, hematoche (more content not included)... Normal [facility] Office Visit (ORTHLD ) MARIE SEXTON ([id number]) 1960 F Date Time Provider Department 06/07/23 11:30 AM CAST [employer] [facility] ORTHKRISTEN During your visit today, we recorded the following information about you: Mahendra Prajapati MA 06/07/2023 2:52 PM Signed Marie presents today for splint removal. Marie's splint was removed and skin cleansed. Marie tolerated this procedure well. Directed Marie and daughter to xray prior to appt w/ Dr. Santos. Mahendra Prajapati MA Splint was removed by Lorraine Yancey, RN Referring Provider: MACARIO SANTOS [[id number]] Allergies As of Date: 06/07/2023 Noted Allergy [...] As Of Date 06/07/2023 Noted Resolved diabetes [[id number]] 05/17/2023 Neuropathy [G62.9] Hallux extensus, acquired [M20.5X9] [...] Status:Closed by MAHENDRA PRAJAPATI on 06/07/23 Normal [facility] XR ANKLE 3V AP/LAT/OBL RTon 06-07-2023 XR [...] IMPRESSION: Postoperative findings as given the results. Director Critical Care: SUBHASH Transcribe Date/Time: Jun 10 2023 11:03A Dictated by : FANG HOLLOWAY MD This examination was interpreted and the report reviewed and electronically signed by: FANG HOLLOWAY MD on Jun 10 2023 11:06AM EST [id number] Normal [facility] CNOVon 05-27-2023 CNOV Office Visit (ORFWHP ) MARIE SEXTON ([id number]) 1960 F Date Time Provider Department 05/27/23 [...] As Of Date 05/27/2023 Noted Resolved diabetes [[id number]] 05/17/2023 Neuropathy [G62.9] Hallux extensus, acquired [M20.5X9] [...] Status:Closed by REGI CHERRY MA on 05/27/23 [facility] Bimal 05-24-2023 CNPN Telephone (FVFOPR) MARIE SEXTON ([id number]) 1960 F Date Time Provider Department 05/24/23 [...] Mara Stallworth RN Acute Pain Management Service [facility] Allergies As of Date: 05/24/2023 Noted [...] As Of Date 05/24/2023 Noted Resolved diabetes [[id number]] 05/17/2023 Neuropathy [G62.9] Hallux extensus, acquired [M20.5X9] [...] Encounter Status:Closed by BRIGETTE STALLWORTH on 05/24/23 [facility] 05-23-2023 JOSE ALBERTO Telephone (MAHESH) MARIE SEXTON ([id number]) 1960 F Date Time Provider Department 05/23/23 KAYLYN LONDON During your visit today, we recorded the following information about you: Kaylyn London APRN.TECHNICAL SUPPORT COORDINATOR 05/23/2023 9:41 AM Signed Attempted to call pt to check on status of CADD pump. No answer, left detailed VM. Kaylyn London APRN.TECHNICAL SUPPORT COORDINATOR Allergies As of Date: 05/23/2023 Noted Allergy [...] As Of Date 05/23/2023 Noted Resolved diabetes [[id number]] 05/17/2023 Neuropathy [G62.9] Hallux extensus, acquired [M20.5X9] [...] Encounter Status:Closed by [facility]AYLYN LONDON [facility] MAR[facility] ([id number]) 1960 F Date Time Provider Department 05/19/23 BRIGETTE STALLWORTH FVFOPR During your visit today, we recorded the following information about you: Brigette Stallworth RN 05/19/2023 3:16 PM Signed Pt is POD# 2. S/P Right Leg removal of deep hardware Right Ankle fusion Right subtalar joint fusion Fibular osteotomy right ankle [place] of bone marrow autograft right leg with [...] Mara Stallworth RN Acute Pain Management Service [facility] Allergies As of Date: 05/19/2023 Noted [...] As Of Date 05/19/2023 Noted Resolved diabetes [[id number]] 05/17/2023 Neuropathy [G62.9] Hallux extensus, acquired [M20.5X9] [...] Encounter Status:Closed by BRIGETTE STALLWORTH on 05/19/23 [facility] CONSULT PROGon 05-18-2023 CONSULT PROG HNO ID: [id number] Author: Donell Khoury PA-C Service: Pain Management Author Type: Physician Emergency Services Director Type: Consult Progress Note Filed: 05/18/2023 8:35 AM Note Text: PERIPHERAL NERVE CATHETER PROGRESS NOTE PATIENT NAME: Marie Sexton SERVICE DATE: 05/18/2023 SERVICE TIME: 7:28 AM ASSESSMENT Marie Sexton is a 63 year old female who is POD# 1 Right Leg removal of deep hardware Right Ankle fusion Right subtalar joint fusion Fibular osteotomy right ankle [employer] [place] of bone marrow autograft right leg Patient reports good pain control [address]. Adductor canal and Popliteal PNC running per CADD 0.2% @ 04/18/30. Dilaudid PRN and Roxicodone on board minimal usage with PNC in place. PLAN Continue current pain regimen, will follow. Patient with CADD pumps in place patient may go home with PNC in place and [employer] will call patient daily. SUBJECTIVE CHIEF COMPLAINT: Marie Sexton is a 63 year old female who is POD# 1 Right Leg removal of deep hardware Right Ankle fusion Right subtalar joint fusion Fibular osteotomy right ankle [employer] [place] of bone marrow autograft right leg PRIMARY [...] which included preparing to see the patient, [id number] patient care, completing clinical documentation, obtaining and/or reviewing separately obtained history, performing a medically appropriate examination, counseling and educating the patient/family/caregive r, and communicating results to the patient/family/caregive r. SIGNATURE: Donell Khoury PA-C PATIENT NAME: Marie Sexton DATE: May 18, 2023 TIME: 7:28 AM PAGER/CONTACT #: [facility] [phone] [facility] HISTORY PHYSICALon HISTORY PHYSICAL HNO ID: [id number] Author: Alannah Whiteside MD Service: Hospital Medicine Author Type: Physician Type: HANDP Filed: 05/17/2023 10:51 PM Note Text: Hospital Medicine Consult History and Physical PRIMARY SERVICE: HOSPITAL MEDICINE Days: Page hospital medicine team pager Evenings: [facility] hospital medicine pager [phone] PATIENT NAME: Marie Sexton DATE of SERVICE: [...] subtalar joint fusion Fibular osteotomy right ankle [employer] [place] of bone marrow autograft right leg SOCIAL [...] TIME: 10:50 PM Discussed with: Patient Normal [facility] ANES POSTPROC EVALon 023 ANES POSTPROC EVAL HNO ID: [id number] Author: Amelia Camara MD Service: Critical Care [...] May 17, 2023 TIME: 3:32 PM CSN: [id number] [facility] ANES PRE-OPon 05-17-2023 ANES PRE-OP HNO ID: [id number] Author: SÁNCEHZ Junior Service: Critical Care Author Type: Mis Manager Type: Anesthesia Preprocedure Evaluation Filed: 05/17/2023 [...] Ankle) - POPLITEAL BLOCK Isto Bone graft; [facility] Nail and headless 6.5 and 5.5 screws; Floyd Large screw removal (5.0, 6.5) Isto confirmed by José Miguel Bridges - kf 05/11 [place] confirmed with Og Trevino - milena 05/11 [...] Units by INJECTION(UNSPECIFI (more content not included)... [facility] BRIEF OP NOTon 05-17-2023 BRIEF OP NOT HNO ID: [id number] Author: Macario Santos DPM Service: Podiatry Author Type: Physician Type: Brief Op Note Filed: 05/17/2023 10:59 AM Note Text: PODIATRIC SURGERY BRIEF OPERATIVE NOTE LOG ID: [id number] Surgery/Procedure Date: 05/17/2023 Incision/Procedure Start Time: 8:25 AM Incision Close/Procedure End Time: Surgeon(s)/Proceduralis t(s) and Emergency Services Director(s): Surgeon(s) and Role: * Macario Santos DPM - Primary Physician Emergency Services Director: Leslie Malick, PA-C Procedure(s): Right Leg removal of deep hardware Right Ankle fusion Right subtalar joint fusion Fibular osteotomy right ankle [place] of bone marrow autograft right leg Anesthesia: General Findings: Well aligned rearfoot Estimated Blood Loss: 100 mls Specimens: None Complications: NONE Pre-Op/Pre-Procedure Diagnosis: 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 Took bed close to the bathroom and with assistance helped her to the bathroom with a walker (2 person assist). [facility] NURSING PROG HNO ID: [id number] Author: Francesca Young RN Service: Nursing Author [...] overnight. He is putting orders in now. [facility] NURSING PROG HNO ID: [id number] Author: Melodie Lorenzo RN Service: Nursing Author Type: Registered Nurse Type: Nursing Progress Note Filed: 05/17/2023 12:58 PM Note Text: Patient expressing concerns about going home since she lives alone. I spoke with her daughter Jennifer and she stated that between her, her sister Brigette and Maries sister they are available to help her. Jennifer also stated that Marie becomes very emotional after anesthesia and she is certain she will be okay at home. [facility] NURSING PROG HNO ID: [id number] Author: Brigette Stallworth RN Service: Pain Management Author Type: Registered Nurse Type: Nursing Progress Note Filed: 05/17/2023 7:24 AM Note Text: RIGHT popliteal nerve block with catheter RIGHT adductor nerve block with catheter Dr. Smith and Dr. Barbour Patient verbalized understanding of nerve block procedure. [facility] NURSING PROG HNO ID: [id number] Author: Gracie Abraham RN Service: Nursing Author [...] (RECOMMENDATION): None Electronically Signed By: Gracie Abraham [facility] OPERATIVE NOon 05-17-2023 OPERATIVE NO HNO ID: [id number] Author: Macario Santos DPM Service: Podiatry Author Type: Physician Type: Operative Report Filed: 05/17/2023 1:58 PM Note Text: SURGERY OPERATIVE NOTE LOG ID: [id number] Surgery/Procedure Date: 05/17/2023 Incision/Procedure Start Time: 8:25 AM Incision Close/Procedure End Time: 11:33 AM Surgeon(s)/Proceduralis t(s) and Emergency Services Director(s): Surgeon(s) and Role: * Macario Santos DPM - Primary Physician Emergency Services Director: Leslie Teresa PA-C PRE-OP/PRE-PROCEDURE DIAGNOSIS: 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 Once this was completed the [place] nail was placed into the leg and [...] available to assist. (more content not included)... [facility] XR ANKLE 2V AP/LAT RTon XR ANKLE 2V AP/LAT RT * * *Final Report* * * DATE OF EXAM: May 17 2023 10:49AM [facility] 5576 - XR ANKLE 2V AP/LAT [...] Please see procedure report for complete details. Director Critical Care: SUBHASH Transcribe Date/Time: May 17 2023 2:29P Dictated by : MIGUEL HERNANDEZ MD This examination was interpreted and the report reviewed and electronically signed by: MIGUEL HERNANDEZ MD on May 17 2023 2:33PM EST [id number] [facility] NM CARDIAC PERF STRESS/PHARM on 05-14-2023 NM CARDIAC PERF STRESS/PHARM * * *Final Report* * * DATE OF EXAM: May 14 2023 2:02PM [facility] 0006 - NM CARDIAC PERF STRESS/PHARM / PROCEDURE REASON: Preoperative cardiovascular examination * * * * Physician Interpretation * * * * Stress Plastic Maker Report: [facility] Date of service: 05/14/2023 12:27:48 PM Supervising [...] later. See administered radiotracer and doses below. [facility] Date of service: 05/14/2023 12:27:48 PM Ordering [...] * * * ---- NM CTAC Report: [facility] Date of service: 05/14/2023 12:27:48 PM CTAC interpreting physician: Patrice Dalton MD PATIENT: Name: MARIE SEXTON Age: 63 years Gender: F 1. Incidental Findings from limited non-diagnostic CTAC: - Coronary calcifications visualized. * * * Final * * * ---- Stress ECG Report: [facility] FELIX-2 Date of service: 05/14/2023 12:27:48 PM Ordering physician: DANA GOYAL gas specialist: Rosina Gonzalez Emergency Services Director: Prem Shields Fellow: Annabelle Woodard MD and [...] 51% of (more content not included)... Normal [facility] PVR ANK/VILCHIS/TOE FRANCESCO VAS LAB on 05-14-2023 PVR ANK/VILCHIS/TOE FRANCESCO VAS LAB Non-Invasive Vascular Laboratory [facility] F30 Lower Extremity Arterial Physiology Study [...] physician: Casie Moore MD, CYNTHIA Final CC [employer] [facility] Image : [id number] oDynamicsSISUID See Link below for Image Normal [facility] LEG ARTERIAL PERIPH FRANCESCO V LABon 05-14-2023 LEG ARTERIAL PERIPH FRANCESCO VAS LAB Non-Invasive Vascular Laboratory [facility] F30 Lower Extremity Arterial Duplex Bilateral/Complete [...] physician: Casie Moore MD, RPVI Final CC [employer] [facility] Image : [id number]. (more content not included)... Normal [facility] HISTORY PHYSICALon HISTORY PHYSICAL HNO ID: [id number] Author: Indiana Clemens PA-C Service: ? Author Type: Physician Emergency Services Director Type: HANDP Filed: 05/14/2023 4:12 PM Note [...] 160-4.5 mcg/actuati (more content not included)... Normal [facility] CNOVon 05-07-2023 CNOV Office Visit (CARINF ) DARSHANMARIE Parks ([id number]) 1960 F Date Time Provider Department 05/07/23 2:00 PM DANA GOYAL During your visit today, we recorded the following information about you: Pulse Blood pressure 68/minute 120/66 Dana Goyal MD 05/07/2023 3:11 PM Signed [facility] V[facility] Thor[facility] [place] Natalia Shrestha Department of Cardiovascular Medicine SECTION OF INTERVENTIONAL CARDIOLOGY OUTPATIENT VISIT DATE 05/07/2023 OUTPATIENT VISIT TYPE New PRIMARY CARE PHYSICIAN: Collins Andrews ([facility]) [address] [place] [address] REFERRING PHYSICIAN: No referring provider defined for [...] meals. hydrochlorothiazide (more content not included)... Normal [facility] [id number] 05-07-2023 ECG01 Ventricular Rate : 6 8 BPM Atrial Rate : 68 BPM P-R Interval : 156 ms QRS Duration : 74 ms Q-T Interval : 394 ms QTC Calculation(Bazett) : 418 ms Calculated P [place] : 55 degrees Calculated R [place] : 52 degrees Calculated T [place] : 64 degrees NORMAL SINUS RHYTHM NORMAL ECG Confirmed by OMIZ MAHER MD ([id number]) on 05/17/2023 10:36:53 AM NAME : MARIE SEXTON PID : [id number] : 1960 Gender : Female Race : [...] : , Acquired by : , Eusebio [facility] Bimal 05-05-2023 CNPN Telephone (ORFWHP) DARSHANMARIE TRINIDAD ([id number]) 1960 F Date Time Provider Department 05/05/23 [facility] your visit today, we recorded the following information about you: Pennie Isbellyt Pss 05/05/2023 1:47 PM 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 daughter(Jennifer) regarding [...] As Of Date 05/05/2023 Noted Resolved diabetes [ZLP2107] Neuropathy [G62.9] Hallux extensus, acquired [M20.5X9] HTN (hypertension) [I10] IBS (irritable bowel syndrome) [K58.9] Arthritis [M19.90] Diabetic foot ulcer [E11.621, L97.509] 12/21/2013 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 [facility] 04-22-2023 [facility] Office Visit (JAE ) MARIE SEXTON ([id number]) 1960 F Date Time Provider Department 04/22/23 [...] numbness o (more content not included)... Normal [facility] CT ANKLE WO IVCON RIGHTon [facility] CT ANKLE WO IVCON RTon 04-22 CT ANKLE WO IVCON RT * * *Final Report* * * DATE OF EXAM: Apr 22 2023 3:55PM [facility] 0061 - CT ANKLE WO IVCON [...] the right foot and ankle as described. Director Critical Care: PSCB Transcribe Date/Time: Apr 22 2023 4:18P Dictated by : COLLINS BENJAMIN MD This examination was interpreted and the report reviewed and electronically signed by: COLLINS BENJAMIN MD on Apr 22 2023 4:22PM EST [id number] Normal [facility] XR ANKLE 3V AP/LAT/OBL RTon 04-22-2023 [...] the hindfoot and midfoot without complication identified. Director Critical Care: SUBHASH Transcribe Date/Time: Apr 23 2023 4:47P Dictated by : RAMIRO PAEZ MD This examination was interpreted and the report reviewed and electronically signed by: RAMIRO PAEZ MD on Apr 23 2023 6:26PM EST [id number] Normal [facility] XR TIBIA FIBULA 2V AP/LAT LT [...] for the characterization as clinically determined. . Director Critical Care: SUBHASH Transcribe Date/Time: Apr 23 2023 4:49P Dictated by : RAMIRO PAEZ MD This examination was interpreted and the report reviewed and electronically signed by: RAMIRO PAEZ MD on Apr 23 2023 6:29PM EST [id number] Normal [facility] GLUCOSE-POCTon 03-22-2023 Glucose [Mass/Vol] 100 mg/dL High 74 - 99 [facility] Comment on above: Performed By: #### G JONATHAN #### [facility] [address] [place] [address] Glucose Test strip manual (B ld) [Mass/Vol]on 03-22-2023 Glucose [Mass/Vol] 100 mg/dL High 74 - 99 mg/dL [facility] Interpretation and review of laboratory results [facility] Order Reconciliationon 03-22 Order Reconciliation Page [...] continued as multivitamin Multiple Vitamins oral tablet Berea-3 1000 mg oral capsule 1 cap(s) oral twice a day 01-Jun-2022 11:21 Berea-3 1000 mg oral capsule 1 cap(s) oral twice a day 01-Jun-2022 11:21 Berea-3 1000 mg oral capsule is continued as Berea-3 1000 mg oral capsule turmeric 500 mg [...] gram/ D (more content not included)... Normal [facility] RF Unspecified body region L ess than 1 hour Views during surgeryon 03-22-2023 RIS LEGACY CONVERSIONS Conversion, Ge Radiology - 05/21/2023 [facility] Work Phone: Radiology Study observation (narrative) [facility] Work Phone: RF Unspecified body region L ess than 1 hour Views during surgeryOrdered By: Ge Conversion on 03-22-2023 [facility] Patient Profile - Preop v3on 03-19-2023 Patient Profile - Preop v3 Patient Profile - Preop: Initial Info: Patient DemographicsName: MARIE SEXTON Date: 1960 Address: [address] [place] [address] Date/Time [id number] 13:05 Primary Phone [phone] Instructions Givenappropriate clothing, bring responsible adult as the garbage truck driver (procedure may be cancelled if no garbage truck driver), center location, remove jewerly/piercings, time [...] Reactionnot applicable Health Mgmt: [facility] Barriers to Managing Healthnone Relationship/Environ: Lives Withalone Living Arrangementshouse Resource/Environmental Concernsnone Anticipated Transition [place] Services Anticipated at Transitionnone Tobacco Use: Tobacco Useno Pre-op Checklist: Arrival [id number] Arrival Time11:24 Procedure TypeRIGHT ANKLE SUBLUXATION REPAIR/ HARDWARE REMOVAL/ CALCANEAL OSTEOTOMY/ SKIN FLAP CLOSURE WITH C-ARM NPOyes Last Food [id number] 21:00 Last Clear Fluid [id number] 10:00 ID Band On Patientpatient ID (name), [...] Updated: 22-Mar-2023 11:50 by Christopher Caceres) Normal [facility] CBC AND DIFFERENTIALon 03-17 % AUTOMATED IMMATURE GRAN 0.4 % Normal 0.0 - 0.[address] [facility] Comment on above: Result Comment: Coni ture Granulocyte Count (IG) includes promyelocytes, myelocytes and metamyelocytes but does not include bands. Percent differential counts (%) should be interpreted in the context of the absolute cell counts (cells/L). Performed By: #### C BCDF ####[facility] [place] [address] Basophils (Bld) [#/Vol] 0.05 10*3/uL Normal 0.00 - 0.[address] [facility] Comment on above: Performed By: #### C BCDF ####[facility] [place] [address] Basophils/100 WBC (Bld) 0.6 % Normal 0.0 - 2.[address] [facility] Comment on above: Performed By: #### C BCDF ####[address] [place] [address] Eosinophils (Bld) [#/Vol] 0.23 10*3/uL Normal 0.00 - 0.[address] [facility] Comment on above: Performed By: #### C BCDF ####[address] [place] [address] Eosinophils/100 WBC (Bld) 2.9 % Normal 0.0 - 6.[address] [facility] Comment on above: Performed By: #### C BCDF ####[address] [address] Erythrocyte distribution width (RBC) [Ratio] 12.3 % Normal 11.5 - 14.[address] [facility] Comment on above: Performed By: #### C BCDF ####[address] [address] Hematocrit (Bld) [Volume fraction] 40.1 % Normal 36.0 - 46.[address] [facility] Comment on above: Performed By: #### C BCDF ####[address] [address] Hemoglobin (Bld) [Mass/Vol] 13.5 g/dL Normal 12.0 - 16.[address] [facility] Comment on above: Performed By: #### C BCDF ####[address] [place] [address] Lymphocytes (Bld) [#/Vol] 3.98 10*3/uL Normal 1.20 - 4.[address] [facility] Comment on above: Performed By: #### C BCDF ####[address] [place] [address] Lymphocytes/100 WBC (Bld) 50.5 % Normal 13.0 - 44.[address] [facility] Comment on above: Performed By: #### C BCDF ####[address] [address] MCHC (RBC) [Mass/Vol] 33.7 g/dL Normal 32.0 - 36.[address] [facility] Comment on above: Performed By: #### C BCDF ####[address] [place] [address] MCV (RBC) [Entitic vol] 92 fL Normal 80 - [address] [facility] Comment on above: Performed By: #### C BCDF ####[address] [place] [address] Monocytes (Bld) [#/Vol] 0.53 10*3/uL Normal 0.10 - 1.[address] [facility] Comment on above: Performed By: #### C BCDF ####[address] [place] [address] Monocytes/100 WBC (Bld) 6.7 % Normal 2.0 - 10.[address] [facility] Comment on above: Performed By: #### C BCDF ####[address] [place] [address] Neutrophils (Bld) [#/Vol] 3.06 10*3/uL Normal 1.20 - 7.[address] [facility] Comment on above: Performed By: #### C BCDF ####[address] [place] [address] Neutrophils/100 WBC (Bld) 38.9 % Normal 40.0 - 80.[address] [facility] Comment on above: Performed By: #### C BCDF ####[address] [place] [address] NUCLEATED RBC 0.0 /100 WBC Normal 0.0 - 0.[address] [facility] Comment on above: Performed By: #### C BCDF ####[address] [place] [address] Platelets (Bld) [#/Vol] 297 10*3/uL Normal 150 - [address] [facility] Comment on above: Performed By: #### C BCDF ####[address] [place] [address] RBC 4.36 x10E12/L Normal 4.00 - 5.[address] [facility] Comment on above: Performed By: #### C BCDF ####[address] [place] [address] WBC (Bld) [#/Vol] 7.9 10*3/uL Normal 4.4 - 11.3 [facility] Comment on above: Performed By: #### C BCDF ####[facility] [place] [address] ALBUMIN, URINE SPOTon 2022 ALBUMIN,URINE <7.0 Normal Not Established [facility] Comment on above: Performed By: #### C OVSC #### [facility] [address] [place] [address] ALBUMIN/CREAT RATIO SEE COMMENT Normal 0.0 - 30.0 [facility] Comment on above: Result Comment: One or more analytes used in this calculation is outside of the analytical measurement range. Calculation cannot be performed. Performed By: #### C OVSC #### [facility] [address] [place] [address] CREATININE,URINE 56.3 mg/dL Normal 20.0 - 320.0 [facility] Comment on above: Performed By: #### C OVSC #### [facility] [address] [place] [address] ALBUMIN, URINE SPOTon 2022 ALBUMIN,URINE Canceled Normal [facility] Comment on above: Order Comment: TEST ALBUMIN, URINE SPOT WAS CANCELLED, 02/02/2023 10:27 not collected. Performed By: #### A LBSP #### [facility] [address] [place] [address] ALBUMIN/CREAT RATIO Canceled Normal [facility] Comment on above: Order Comment: TEST ALBUMIN, URINE SPOT WAS CANCELLED, 02/02/2023 10:27 not collected. Performed By: #### A LBSP #### [facility] [address] [place] [address] CREATININE,URINE Canceled Normal [facility] Comment on above: Order Comment: TEST ALBUMIN, URINE SPOT WAS CANCELLED, 02/02/2023 10:27 not collected. Performed By: #### A LBSP #### [facility] [address] [place] [address] COMPREHENSIVE PANELon 2022 Albumin [Mass/Vol] 4.6 g/dL Normal 3.4 - 5.0 [facility] Comment on above: Performed By: #### C MP #### [address] [place] [address] ALP [Catalytic activity/Vol] 42 U/L Normal 33 - 136 [facility] Comment on above: Performed By: #### C MP #### [address] [place] [address] ALT [Catalytic activity/Vol] 28 U/L Normal 7 - 45 [facility] Comment on above: Result Comment: Shaista ents treated with Sulfasalazine may generate falsely decreased results for ALT. Performed By: #### C MP #### [address] [place] [address] Anion gap [Moles/Vol] 13 mmol/L Normal 10 - 20 [facility] Comment on above: Performed By: #### C MP #### [address] [place] [address] AST [Catalytic activity/Vol] 20 U/L Normal 9 - 39 [facility] Comment on above: Performed By: #### C MP #### [address] [place] [address] Bilirubin [Mass/Vol] 0.3 mg/dL Normal 0.0 - 1.2 [facility] Comment on above: Performed By: #### C MP #### [address] [place] [address] Calcium [Mass/Vol] 10.0 mg/dL Normal 8.6 - 10.3 [facility] Comment on above: Performed By: #### C MP #### [address] [place] [address] Chloride [Moles/Vol] 103 mmol/L Normal 98 - 107 [facility] Comment on above: Performed By: #### C MP #### [address] [place] [address] Creatinine [Mass/Vol] 1.25 mg/dL High 0.50 - 1.05 [facility] Comment on above: Performed By: #### C MP #### [address] [place] [address] GFR/1.73 sq M.predicted among non-blacks MDRD (S/P/Bld) [Vol rate/Area] 49 mL/min/{1.73_m2} Abnormal >90 [facility] Comment on above: Result Comment: CALC ULATIONS OF ESTIMATED GFR ARE PERFORMED USING THE 2020 CKD-EPI STUDY REFIT EQUATION WITHOUT THE RACE VARIABLE FOR THE IDMS-TRACEABLE CREATININE METHODS. https://jasn.asnjournals.org/content/early//ASN.6042009 988 Performed By: #### C MP #### [address] [place] [address] Glucose [Mass/Vol] 76 mg/dL Normal 74 - 99 [facility] Comment on above: Performed By: #### C MP #### [address] [place] [address] HCO3 (Bld) [Moles/Vol] 28 mmol/L Normal 21 - 32 [facility] Comment on above: Performed By: #### C MP #### [address] [place] [address] Potassium [Moles/Vol] 3.9 mmol/L Normal 3.5 - 5.3 [facility] Comment on above: Performed By: #### C MP #### [address] [place] [address] Protein [Mass/Vol] 7.4 g/dL Normal 6.4 - 8.2 [facility] Comment on above: Performed By: #### C MP #### [address] [place] [address] Sodium [Moles/Vol] 140 mmol/L Normal 136 - 145 [facility] Comment on above: Performed By: #### C MP #### [address] [place] [address] Urea nitrogen [Mass/Vol] 24 mg/dL High 6 - 23 [facility] Comment on above: Performed By: #### C MP #### [address] [place] [address] HEMOGLOBIN A1Con 03--2023 Glucose [Mass/Vol] 137 mg/dL Normal [facility] Comment on above: Performed By: #### H BA1E #### [facility] [address] [place] [address] HbA1c (Bld) [Mass fraction] 6.4 % Abnormal [facility] Comment on above: Result Comment: Diag nosis of Diabetes-Adults Non-Diabetic: < or = 5.6% Increased risk for developing diabetes: 5.7-6.4% Diagnostic of diabetes: > or = 6.5% . Monitoring of Diabetes Age (y) Therapeutic Goal (%) Adults: >18 <7.0 Pediatrics: 13-18 <7.5 7-12 <8.0 0- 6 7.5-8.5 [place] [employer]. Diabetes Care 33(S1), Nov 2009. Performed By: #### H BA1E #### [facility] [address] [place] [address] TSHon 02-02-2023 TSH Qn 1.56 m[IU]/L Normal 0.44 - 3.98 [facility] Comment on above: Result Comment: TSH testing is performed using different testing methodology at [facility] than at other [facility]. Direct result comparisons should only be made within the same method. Performed By: #### T SH2 #### [facility] [address] [place] [address] VITAMIN D, 25-HYDROXYon 01-14 VITAMIN D, 25-HYDROXY 49 ng/mL Normal [facility] Comment on above: Result Comment: . DEFICIENCY: < 20 NG/ML INSUFFICIENCY: 20-29 NG/ML SUFFICIENCY: 30-100 NG/ML THIS ASSAY ACCURATELY QUANTIFIES THE SUM OF VITAMIN D3, 25-HYDROXY AND VIT D2,25-HYDROXY. Performed By: #### C OVSC #### [facility] [address] [place] [address] GLUCOSE-POCTon 01-08-2023 Glucose [Mass/Vol] 92 mg/dL Normal 74 - 99 [facility] Comment on above: Performed By: #### G JONATHAN ####[facility] [place] [address] Operative Reports - Jing 01-08-2023 Operative Reports - [place] SURGEON: Fang Rodriguez DPM SUPERVISOR GRIPS: Buzz Dexter, PGY-3. PREOPERATIVE DIAGNOSES: 1. Hardware [...] LOSS: Less than 100 mL. MATERIALS USED: Floyd Vitoss and BIO4 bone graft substitute augment [place] dorsal 3.5 locking plate. 7-0 and 5-0 [...] Charcot neuroarthropat (more content not included)... Normal [facility] Order Reconciliationon 01-08 Order Reconciliation Page 1 [...] continued as multivitamin Multiple Vitamins oral tablet Berea-3 1000 mg oral capsule 1 cap(s) oral twice a day 01-Jun-2022 11:21 Berea-3 1000 mg oral capsule 1 cap(s) oral twice a day 01-Jun-2022 11:21 Berea-3 1000 mg oral capsule is continued as Berea-3 1000 mg oral capsule turmeric 500 mg [...] tablet is (more content not included)... Normal [facility] Surgical Pathology Depar tmenton 01-08-2023 [facility] Surgical Pathology Department Name [...] reviewed this case. Diagnostic interpretation performed at [place] [address] Clinical History: Contracture of joint of both [...] dimension. The largest piece is inscribed with [employer] REF [id number] X 80M. Additionally received is a blue-canales metal U-shaped piece of hardware with the inscription of [phone] [id number]. Soft tissue is not received the specimen. A photograph is been taken. The specimen is for gross examination only. MJR mjr/01/09/2023 [facility] Department of Pathology [address] [place] [address] Normal [facility] Comment on above: Performed By: #### C OVSC #### [address] [place] [address] Patient Profile - Preop v3on 01-07-2023 Patient Profile - Preop v3 Patient Profile - Preop: Initial Info: Patient DemographicsName: DARSHAN April Date: 1960 [address]: [address] [place], [place] [address] [address] Date/Time [id number] 12:31 Primary Phone [phone] Call Attemptedattempt 1 Instructions Giventime to arrive [...] Reactionnot applicable Health Mgmt: [facility] Barriers to Managing Healthnone Relationship/Environ: Lives Withalone Living Arrangementshouse Resource/Environmental Concernsnone [facility] An[facility] at [facility] Tobacco Use: Tobacco Useno Pre-op Checklist: Arrival [id number] Arrival Time08:58 Procedure TypeRIGHT GASTROCNEMIUS RECESSION/ SUBTALAR JOINT & MIDFOOT FUSION/ TIBIA PARTIAL EXCISION WITH C-ARM RIGHT FOOT DJO HARDWARE REMOVAL NPOyes Last Food [id number] 20:30 Last Clear Fluid [id number]-[id number] 07:45 ID Band On Patientpatient ID (name), allergy, falls risk Consent Signedyes Anesthesia Assessment Completedyes EKG Performedsee results tab Chest X-Ray Performednot ordered Preop Antibioticssent to OR Beta-vita CommentN/A COVID 19 Results in Last 7 daysN/A Glucose Ffmmtg83 Type and Screen Resultedn/a HCG Urine TestN/A [...] 08-Jan-2023 09:18 by Christopher Caceres (RN) Normal [facility] BASIC METABOLIC PANELon 02-2 Anion gap [Moles/Vol] 11 mmol/L Normal 10 - [address] [facility] Comment on above: Performed By: #### B MP #### [facility] [address] [place] [address] Calcium [Mass/Vol] 9.9 mg/dL Normal 8.6 - 10.3 [facility] Comment on above: Performed By: #### B MP #### [address] [address] Chloride [Moles/Vol] 103 mmol/L Normal 98 - 107 [facility] Comment on above: Performed By: #### B MP #### [address] [address] Creatinine [Mass/Vol] 1.01 mg/dL Normal 0.50 - 1.[address] [facility] Comment on above: Performed By: #### B MP #### [address] [address] GFR/1.73 sq M.predicted among non-blacks MDRD (S/P/Bld) [Vol rate/Area] 63 mL/min/{1.73_m2} Normal >[address] [facility] Comment on above: Result Comment: CALC ULATIONS OF ESTIMATED GFR ARE PERFORMED USING THE 2020 CKD-EPI STUDY REFIT EQUATION WITHOUT THE RACE VARIABLE FOR THE IDMS-TRACEABLE CREATININE METHODS. https://jasn.asnjournals.org/content/early/ASN.2871836 988 Performed By: #### B MP #### [facility] [address] [place] [address] Glucose [Mass/Vol] 120 mg/dL High 74 - 99 [facility] Comment on above: Performed By: #### B MP #### [address] [address] HCO3 (Bld) [Moles/Vol] 30 mmol/L Normal 21 - [address] [facility] Comment on above: Performed By: #### B MP #### [facility] [address] [place] [address] Potassium [Moles/Vol] 4.7 mmol/L Normal 3.5 - 5.[address] [facility] Comment on above: Performed By: #### B MP #### [address] [address] Sodium [Moles/Vol] 139 mmol/L Normal 136 - 145 [facility] Comment on above: Performed By: #### B MP #### [address] [address] Urea nitrogen [Mass/Vol] 23 mg/dL Normal 6 - [address] [facility] Comment on above: Performed By: #### B MP #### [address] [address] CBC AND DIFFERENTIALon 01-05 % AUTOMATED IMMATURE GRAN 0.2 % Normal 0.0 - 0.[address] [facility] Comment on above: Result Comment: Coni ture Granulocyte Count (IG) includes promyelocytes, myelocytes and metamyelocytes but does not include bands. Percent differential counts (%) should be interpreted in the context of the absolute cell counts (cells/L). Performed By: #### C BCDF ####[address] [address] Basophils (Bld) [#/Vol] 0.05 10*3/uL Normal 0.00 - 0.[address] [facility] Comment on above: Performed By: #### C BCDF ####[facility] [place] [address] Basophils/100 WBC (Bld) 0.6 % Normal 0.0 - 2.[address] [facility] Comment on above: Performed By: #### C BCDF ####[address] [address] Eosinophils (Bld) [#/Vol] 0.24 10*3/uL Normal 0.00 - 0.[address] [facility] Comment on above: Performed By: #### C BCDF ####[address] [place] [address] Eosinophils/100 WBC (Bld) 2.8 % Normal 0.0 - 6.[address] [facility] Comment on above: Performed By: #### C BCDF ####[address] [place] [address] Erythrocyte distribution width (RBC) [Ratio] 12.8 % Normal 11.5 - 14.[address] [facility] Comment on above: Performed By: #### C BCDF ####[address] [place] [address] Hematocrit (Bld) [Volume fraction] 41.1 % Normal 36.0 - 46.[address] [facility] Comment on above: Performed By: #### C BCDF ####[address] [place] [address] Hemoglobin (Bld) [Mass/Vol] 13.8 g/dL Normal 12.0 - 16.[address] [facility] Comment on above: Performed By: #### C BCDF ####[address] [place] [address] Lymphocytes (Bld) [#/Vol] 3.56 10*3/uL Normal 1.20 - 4.[address] [facility] Comment on above: Performed By: #### C BCDF ####[address] [place] [address] Lymphocytes/100 WBC (Bld) 41.4 % Normal 13.0 - 44.[address] [facility] Comment on above: Performed By: #### C BCDF ####[address] [address] MCHC (RBC) [Mass/Vol] 33.6 g/dL Normal 32.0 - 36.[address] [facility] Comment on above: Performed By: #### C BCDF ####[address] [place] [address] MCV (RBC) [Entitic vol] 90 fL Normal 80 - [address] [facility] Comment on above: Performed By: #### C BCDF ####[address] [place] [address] Monocytes (Bld) [#/Vol] 0.61 10*3/uL Normal 0.10 - 1.[address] [facility] Comment on above: Performed By: #### C BCDF ####[address] [address] Monocytes/100 WBC (Bld) 7.1 % Normal 2.0 - 10.[address] [facility] Comment on above: Performed By: #### C BCDF ####[address] [address] Neutrophils (Bld) [#/Vol] 4.11 10*3/uL Normal 1.20 - 7.[address] [facility] Comment on above: Performed By: #### C BCDF ####[address] [address] Neutrophils/100 WBC (Bld) 47.9 % Normal 40.0 - 80.[address] [facility] Comment on above: Performed By: #### C BCDF ####[address] [address] NUCLEATED RBC 0.0 /100 WBC Normal 0.0 - 0.[address] [facility] Comment on above: Performed By: #### C BCDF ####[address] [address] Platelets (Bld) [#/Vol] 287 10*3/uL Normal 150 - [address] [facility] Comment on above: Performed By: #### C BCDF ####[address] [address] RBC 4.58 x10E12/L Normal 4.00 - 5.[address] [facility] Comment on above: Performed By: #### C BCDF ####[address] [address] WBC (Bld) [#/Vol] 8.6 10*3/uL Normal 4.4 - 11.3 [facility] Comment on above: Performed By: #### C BCDF ####[address] [address] Electrocardiogram 12 Leadon 01-05-2023 Electrocardiogram 12 Lead Ventricular Rate 69 Atrial Rate 69 P-R Interval 144 QRS Duration 70 Q-T Interval 396 QTC Calculation(Bazett) 424 P [place] 60 R [place] 41 T [place] 64 QRS Count 12 Q Onset 220 P Onset 148 P Offset 201 T Offset 418 QTC Fredericia 415 Diagnosis Class Normal Diagnosis Normal sinus rhythm Normal ECG When compared with ECG of 01-JUN-2022 11:38, No significant change was found Confirmed by Javed Bravo ([id number]) on 01/08/2023 3:39:12 PM Normal [facility] GLUCOSE-POCTon 08-21-2022 Glucose [Mass/Vol] 82 mg/dL Normal 74 - 99 [facility] Comment on above: Performed By: #### G JONATHAN #### [facility] [address] [place] [address] Operative Reports - [facility] 08-21-2022 Operative Reports - [place] SURGEON: Fang Rodriguez DPM SUPERVISOR GRIPS: Darin Dawn, PGY-2. SECOND KNEE BOLTER: Sirena Oconnor, PGY-3. PREOPERATIVE DIAGNOSES: 1. Anterior [...] Adaptic, gauze, and a slightly compressive short-leg wzgsq-akn-nify cast was then applied. The foot was held in dorsiflexed position at this time. The patient was then transferred to the PACU with vital signs stable and vascular status intact. COMPLICATIONS: Significant disease with tendon requiring cadaveric tendon to be used. SPECIMEN: None. Fang Rodriguez DPM EST EST DICTATION NUMBER: [id number] INTERNAL JOB NUMBER: [id number] Electronic Signatures: Fang Rodriguez) (Signed on 28-Aug-2022 08:37) Authored Unsigned, Draft (SYS GENERATED) (Entered on 22-Aug-2022 21:23) Entered Last Updated: 28-Aug-2022 08:37 by Fang Rodriguez) [facility] Order Reconciliationon 08-21 Order Reconciliation Page 1 [...] continued as multivitamin Multiple Vitamins oral tablet Berea-3 1000 mg oral capsule 1 cap(s) oral twice a day 01-Jun-2022 11:21 Berea-3 1000 mg oral capsule 1 cap(s) oral twice a day 01-Jun-2022 11:21 Berea-3 1000 mg oral capsule is continued as Berea-3 1000 mg oral capsule turmeric 500 mg [...] mg oral (more content not included)... Normal [facility] Patient Profile - Preop v3on 08-20-2022 Patient Profile - Preop v3 Patient Profile - Preop: Initial Info: Patient DemographicsName: DARSHAN April Date: 1960 Address: [address] [place] [address] [place] [address] Date/Time [id number] 11:43 Primary Phone [phone] Call Attemptedattempt 1 Instructions Giventime to arrive, insurance information, center location, bring responsible adult as the garbage truck driver (procedure may be cancelled if no garbage truck driver), remove jewerly/piercings, appropriate clothing Prep [...] Health: Weight in kg88 kilogram(s) Weight in ezl471 pound(s) Weight Methodstated Height in feet6 feet Height in inches0.95 inch(es) Height in cm185.2 centimeter(s) Height Methodstated BMI (kg/m2)25.656 square meter Patient or Family Member Reaction to Anesthesiano previous reaction Blood Avoidance/Restrictionsn one Previous Transfusion Reactionnot applicable Health Mgmt: [facility] H&P Barriers to Managing Healthnone Relationship/Environ: Lives Withalone Living Arrangementshouse Resource/Environmental Concernsnone Anticipated Transition [facility] Anticipated at Transition[facility] Tobacco Use: Tobacco [...] Last Updated: 21-Aug-2022 10:45 by Sabrina Hopkins (DEMI) Normal [facility] CORONAVIRUS 2019, SCREEN ASY MPTOMATICon 08-13-2022 SARS-CoV-2 (COVID-19) RNA KING+probe Ql (Unsp spec) Not detected Normal Not Detected [facility] Comment on above: Result Comment: . This [...] patient management decisions. Fact sheet for providers: https://www.fda.gov/media/973129/download Fact sheet for patients: https://www.fda.gov/media/508158/download This test has received FDA Emergency Use Authorization (EUA) and has been verified by [facility] ([facility]). This test is only authorized for the duration of time that circumstances exist to justify the authorization of the emergency use of in vitro diagnostic tests for the detection of SARS-CoV-2 virus and/or diagnosis of COVID-19 infection under section 564(b)(1) of the Act, 21 U.S.C. 360bbb-3(b)(1), unless the authorization is terminated or revoked sooner. [facility] is certified under CLIA-88 as qualified to perform high complexity testing. Testing is performed in the [facility] laboratories located at [id number] [place] [address]. Performed By: #### C OVSC #### [facility] [id number] [place] [address]. [place] [address] Covid 19 Resultson 2 SARS-CoV-2 (COVID-19) RNA [...] You may also be contacted by the [facility] to see if any of [...] or Naproxen (Aleve) can also be used. Glkg-yrh-zenqfsn cough and cold medicines can be used according to the instructions on the package. Some qlpz-bwn-npfaayx medicines also contain acetaminophen. Make sure you [...] water are not available, use alcohol-based hand stallion keeper. Avoid touching your eyes, nose, and mouth [...] 24 chevy (more content not included)... Normal [facility] GLUCOSE-POCTon 08-13-2022 Glucose [Mass/Vol] 160 mg/dL High 74 - 99 [facility] Comment on above: Performed By: #### G JONATHAN #### [facility] [address] [place] [address] Operative Reports - [facility] 08-13-2022 Operative Reports - [place] SURGEON: Fang Rodriguez DPM KNEE BOLTER: Sirena Oconnor, PGY-3 PREOPERATIVE DIAGNOSES: 1. Broken [...] identified and (more content not included)... Normal [facility] Order Reconciliationon 08-13 Order Reconciliation Page 1 [...] continued as multivitamin Multiple Vitamins oral tablet Berea-3 1000 mg oral capsule 1 cap(s) oral twice a day 01-Jun-2022 11:21 Berea-3 1000 mg oral capsule 1 cap(s) oral twice a day 01-Jun-2022 11:21 Berea-3 1000 mg oral capsule is continued as Berea-3 1000 mg oral capsule turmeric 500 mg [...] tab(s) oral (more content not included)... Normal [facility] CORONAVIRUS 2019, SCREEN ASY MPTOMATICon 08-12-2022 Lab Specimen Source Nasal, Nasopharyngeal Normal [facility] Comment on above: Performed By: #### C OVSC #### [facility] [address] [place] [id number] Patient Profile - Preop v3on 08-12-2022 Patient Profile - Preop v3 Patient Profile - Preop: Initial Info: Patient DemographicsName: MARIE SEXTON Date: 1960 Address: [address] [place] [address] [place] [address] Date/Time Kyolqz86-Aol-0891 11:51 Primary Phone [phone] Call Attemptedattempt 1 Instructions Giventime to arrive [...] Withspouse Living Arrangementshouse Resource/Environmental Concernsnone Anticipated Transition [facility] Anticipated at [facility] Tobacco Use: Tobacco Useno Pre-op Checklist: Arrival [id number] Arrival Time06:30 Procedure TypeRIGHT MIDFOOT FUSION/ REPAIR SUBLUXED TARSAL JOINT WITH C-ARM RIGHT FOOT HARDWARE REMOVAL NPOyes Last Food [id number] 22:30 Last Clear Fluid [id number] 22:30 ID Band On Patientpatient ID (name), [...] Updated: 13-Aug-2022 06:56 by Christopher Caceres) Normal [facility] CBC AND DIFFERENTIALon 08-10 % AUTOMATED IMMATURE GRAN 0.4 % Normal 0.0 - 0.[address] [facility] Comment on above: Result Comment: Coni ture Granulocyte Count (IG) includes promyelocytes, myelocytes and metamyelocytes but does not include bands. Percent differential counts (%) should be interpreted in the context of the absolute cell counts (cells/L). Performed By: #### C BCDF #### [facility] [address] [address] Basophils (Bld) [#/Vol] 0.05 10*3/uL Normal 0.00 - 0.[address] [facility] Comment on above: Performed By: #### C BCDF #### [address] [address] Basophils/100 WBC (Bld) 0.7 % Normal 0.0 - 2.[address] [facility] Comment on above: Performed By: #### C BCDF #### [address] [address] Eosinophils (Bld) [#/Vol] 0.20 10*3/uL Normal 0.00 - 0.[address] [facility] Comment on above: Performed By: #### C BCDF #### [address] [address] Eosinophils/100 WBC (Bld) 2.6 % Normal 0.0 - 6.[address] [facility] Comment on above: Performed By: #### C BCDF #### [address] [address] Erythrocyte distribution width (RBC) [Ratio] 12.9 % Normal 11.5 - 14.[address] [facility] Comment on above: Performed By: #### C BCDF #### [address] [address] Hematocrit (Bld) [Volume fraction] 38.5 % Normal 36.0 - 46.[address] [facility] Comment on above: Performed By: #### C BCDF #### [address] [address] Hemoglobin (Bld) [Mass/Vol] 12.6 g/dL Normal 12.0 - 16.[address] [facility] Comment on above: Performed By: #### C BCDF #### [address] [address] Lymphocytes (Bld) [#/Vol] 2.69 10*3/uL Normal 1.20 - 4.[address] [facility] Comment on above: Performed By: #### C BCDF #### [address] [address] Lymphocytes/100 WBC (Bld) 35.6 % Normal 13.0 - 44.[address] [facility] Comment on above: Performed By: #### C BCDF #### [address] [address] MCHC (RBC) [Mass/Vol] 32.7 g/dL Normal 32.0 - 36.[address] [facility] Comment on above: Performed By: #### C BCDF #### [address] [address] MCV (RBC) [Entitic vol] 90 fL Normal 80 - [address] [facility] Comment on above: Performed By: #### C BCDF #### [address] [address] Monocytes (Bld) [#/Vol] 0.56 10*3/uL Normal 0.10 - 1.[address] [facility] Comment on above: Performed By: #### C BCDF #### [address] [address] Monocytes/100 WBC (Bld) 7.4 % Normal 2.0 - 10.[address] [facility] Comment on above: Performed By: #### C BCDF #### [address] [address] Neutrophils (Bld) [#/Vol] 4.02 10*3/uL Normal 1.20 - 7.[address] [facility] Comment on above: Performed By: #### C BCDF #### [address] [address] Neutrophils/100 WBC (Bld) 53.3 % Normal 40.0 - 80.[address] [facility] Comment on above: Performed By: #### C BCDF #### [address] [address] NUCLEATED RBC 0.0 /100 WBC Normal 0.0 - 0.[address] [facility] Comment on above: Performed By: #### C BCDF #### [address] [address] Platelets (Bld) [#/Vol] 360 10*3/uL Normal 150 - [address] [facility] Comment on above: Performed By: #### C BCDF #### [facility] [address] [place] [address] RBC 4.27 x10E12/L Normal 4.00 - 5.[address] [facility] Comment on above: Performed By: #### C BCDF #### [facility] [address] [place] [address] WBC (Bld) [#/Vol] 7.6 10*3/uL Normal 4.4 - 11.3 [facility] Comment on above: Performed By: #### C BCDF #### [facility] [address] [place] [address] COMPREHENSIVE PANELon 2021 Albumin [Mass/Vol] 4.2 g/dL Normal 3.4 - 5.0 [facility] Comment on above: Performed By: #### C MP #### [facility] [address] [place] [address] ALP [Catalytic activity/Vol] 77 U/L Normal 33 - 136 [facility] Comment on above: Performed By: #### C MP #### [facility] [address] [place] [address] ALT [Catalytic activity/Vol] 14 U/L Normal 7 - 45 [facility] Comment on above: Result Comment: Shaista ents treated with Sulfasalazine may generate falsely decreased results for ALT. Performed By: #### C MP #### [facility] [address] [place] [address] Anion gap [Moles/Vol] 13 mmol/L Normal 10 - 20 [facility] Comment on above: Performed By: #### C MP #### [facility] [address] [place] [address] AST [Catalytic activity/Vol] 18 U/L Normal 9 - 39 [facility] Comment on above: Performed By: #### C MP #### [facility] [address] [place] [address] Bilirubin [Mass/Vol] 0.3 mg/dL Normal 0.0 - 1.2 [facility] Comment on above: Performed By: #### C MP #### [facility] [address] [place] [address] Calcium [Mass/Vol] 10.0 mg/dL Normal 8.6 - 10.6 [facility] Comment on above: Performed By: #### C MP #### [facility] [address] [place] [address] Chloride [Moles/Vol] 105 mmol/L Normal 98 - 107 [facility] Comment on above: Performed By: #### C MP #### [facility] [address] [place] [address] Creatinine [Mass/Vol] 1.14 mg/dL High 0.50 - 1.05 [facility] Comment on above: Performed By: #### C MP #### [facility] [address] [place] [address] GFR/1.73 sq M.predicted among non-blacks MDRD (S/P/Bld) [Vol rate/Area] 55 mL/min/{1.73_m2} Abnormal >90 [facility] Comment on above: Result Comment: CALC ULATIONS OF ESTIMATED GFR ARE PERFORMED USING THE 2020 CKD-EPI STUDY REFIT EQUATION WITHOUT THE RACE VARIABLE FOR THE IDMS-TRACEABLE CREATININE METHODS. https://jasn.asnjournals.org/content//ASN.7553721 988 Performed By: #### C MP #### [facility] [address] [place] [address] Glucose [Mass/Vol] 87 mg/dL Normal 74 - 99 [facility] Comment on above: Performed By: #### C MP #### [facility] [address] [place] [address] HCO3 (Bld) [Moles/Vol] 28 mmol/L Normal 21 - 32 [facility] Comment on above: Performed By: #### C MP #### [facility] [address] [place] [address] Potassium [Moles/Vol] 4.0 mmol/L Normal 3.5 - 5.3 [facility] Comment on above: Performed By: #### C MP #### [facility] [address] [place] [address] Protein [Mass/Vol] 7.5 g/dL Normal 6.4 - 8.2 [facility] Comment on above: Performed By: #### C MP #### [facility] [address] [place] [address] Sodium [Moles/Vol] 142 mmol/L Normal 136 - 145 [facility] Comment on above: Performed By: #### C MP #### [facility] [address] [place] [address] Urea nitrogen [Mass/Vol] 21 mg/dL Normal 6 - 23 [facility] Comment on above: Performed By: #### C MP #### [facility] [address] [place] [address] HEMOGLOBIN A1Con 07-31-2022 Glucose [Mass/Vol] 105 mg/dL Normal [facility] Comment on above: Performed By: #### C OVSC #### [facility] [address] [place] [address] HbA1c (Bld) [Mass fraction] 5.3 % Normal [facility] Comment on above: Result Comment: Diag nosis of Diabetes-Adults Non-Diabetic: < or = 5.6% Increased risk for developing diabetes: 5.7-6.4% Diagnostic of diabetes: > or = 6.5% . Monitoring of Diabetes Age (y) Therapeutic Goal (%) Adults: >18 <7.0 Pediatrics: 13-18 <7.5 7-12 <8.0 0- 6 7.5-8.5 [place] [employer]. Diabetes Care 33(S1), Nov 2009. Performed By: #### C OVSC #### [facility] [address] [place] [address] LDL, DIRECTon 07-31-2022 Cholesterol in LDL [Mass/Vol] 95 mg/dL Normal 0 - 129 [facility] Comment on above: Result Comment: Elev ated levels of LDL cholesterol are recognized as a fisher factor in the development of atherosclerosis and CHD. The direct LDL cholesterol test can be used to assess cardiovascular risk and monitor therapy as a follow up to a lipid profile when triglycerides are significantly elevated. Performed By: #### C OVSC #### [facility] [address] [place] [address] LIPID PANEL (CORONARY RISK 2 )on 07-31-2022 Cholesterol [Mass/Vol] 152 mg/dL Normal 0 - 199 [facility] Comment on above: Result Comment: . AGE [...] dosing. Performed By: #### C OVSC #### [facility] [address] [place] [address] Cholesterol in HDL [Mass/Vol] 36.6 mg/dL Abnormal [facility] Comment on above: Result Comment: . AGE VERY LOW LOW NORMAL HIGH 0-19 Y < 35 < 40 40-45 ---- 20-24 Y ---- < 40 >45 ---- >24 Y ---- < 40 40-60 >60 . Performed By: #### C OVSC #### [facility] [address] [place] [address] Cholesterol in LDL [Mass/Vol] 79 mg/dL Normal 0 - 99 [facility] Comment on above: Result Comment: . NEAR BORD AGE DESIRABLE OPTIMAL HIGH HIGH VERY HIGH 0-19 Y 0 - 109 --- 110-129 >/= 130 ---- 20-24 Y 0 - 119 --- 120-159 >/= 160 ---- >24 Y 0 - 99 100-129 130-159 160-189 >/=190 . Performed By: #### C OVSC #### [facility] [address] [place] [address] Cholesterol in VLDL [Mass/Vol] 37 mg/dL Normal 0 - 40 [facility] Comment on above: Performed By: #### C OVSC #### [facility] [address] [place] [address] Cholesterol.total/Ch olesterol in HDL [Mass ratio] 4.2 {ratio} Normal [facility] Comment on above: Result Comment: REF VALUES DESIRABLE < 3.4 HIGH RISK > 5.0 Performed By: #### C OVSC #### [facility] [address] [place] [address] Triglyceride [Mass/Vol] 183 mg/dL High 0 - 149 [facility] Comment on above: Result Comment: . AGE [...] dosing. Performed By: #### C OVSC #### [facility] [address] [place] [address] TSHon 07-31-2022 TSH Qn 1.32 m[IU]/L Normal 0.44 - 3.98 [facility] Comment on above: Result Comment: TSH testing is performed using different testing methodology at [facility] than at other [facility]. Direct result comparisons should only be made within the same method. Performed By: #### A LBSP #### [facility] [address] [place] [address] GLUCOSE-POCTon 06-05-2022 Glucose [Mass/Vol] 128 mg/dL High 74 - 99 [facility] Comment on above: Performed By: #### G JONATHAN #### [address] [place] [address] Operative Reports - [place] 06-05-2022 Operative Reports - [place] SURGEON: Fang Rodriguez, DPM 1ST KNEE BOLTER: Josias Oliveros, PGY-3. 2ND KNEE BOLTER: Ly Sheikh, PGY-2. PREOPERATIVE DIAGNOSES: 1. Right [...] MATERIALS USED: Floyd Iconix and ReelX anchor, Floyd TissueMend, DJO SteriShield, DJO subtalar nail, MedShape [...] a tissue protector was inserted and a Zhou Heiya saber blade was utilized to transect the [...] joint was then distracted with a lamina environmental laboratory technician and the joint was prepared utilizing a combination of rongeur, osteotome, curette, subchondral drilling and fish scaling was performed until there was healthy bleeding bone. The incision was flushed. It was packed with bone graft substitute mixed with PRP and the joint was then closed in layers with Vicryl and Prolene suture. The subtalar joint nail was then inserted per bacteriologist dairy's recommended technique an 80 mm nail along [...] stressed under (more content not included)... Normal [facility] Order Reconciliationon 06-05 Order Reconciliation Page 1 [...] continued as multivitamin Multiple Vitamins oral tablet Berea-3 1000 mg oral capsule 1 cap(s) oral twice a day 01-Jun-2022 11:21 Berea-3 1000 mg oral capsule 1 cap(s) oral twice a day 01-Jun-2022 11:21 Berea-3 1000 mg oral capsule is continued as Berea-3 1000 mg oral capsule turmeric 500 mg [...] mg oral (more content not included)... Normal [facility] Patient Profile - Preop v3on 06-04-2022 Patient Profile - Preop v3 Patient Profile - Preop: Initial Info: Patient DemographicsName: MARIE SEXTON Date: 1960 Address: [address] [place] [address] Date/Time [id number] 12:21 Primary Phone [phone] Instructions Givenappropriate clothing, bring responsible adult as the garbage truck driver (procedure may be cancelled if no garbage truck driver), center location, remove jewerly/piercings, time [...] Health: Weight in kg89.3 kilogram(s) Weight in dod121.8 pound(s) Weight Methodactual (measured) Scale Typestanding Height [...] child(mehul) Living Arrangementshouse Resource/Environmental Concernsnone Anticipated Transition [place] Services Anticipated at Transitionnone Tobacco Use: Tobacco Useyes Last Tobacco [id number] Number of Packs per Day1 Pre-op Checklist: Procedure Typeright foot NPOyes Last Food [id number] 19:00 Last Clear Fluid [id number] 07:00 ID Band On Patientpatient ID (name), [...] 05-Jun-2022 08:36 by Torrie Landaverde (RN) Normal [facility] BASIC METABOLIC PANELon 07- Anion gap [Moles/Vol] 12 mmol/L Normal 10 - [address] [facility] Comment on above: Performed By: #### B MP #### [address] [address] Calcium [Mass/Vol] 9.8 mg/dL Normal 8.6 - 10.3 [facility] Comment on above: Performed By: #### B MP #### [address] [address] Chloride [Moles/Vol] 103 mmol/L Normal 98 - 107 [facility] Comment on above: Performed By: #### B MP #### [address] [address] Creatinine [Mass/Vol] 0.94 mg/dL Normal 0.50 - 1.[address] [facility] Comment on above: Performed By: #### B MP #### [address] [address] GFR/1.73 sq M.predicted among non-blacks MDRD (S/P/Bld) [Vol rate/Area] 69 mL/min/{1.73_m2} Normal >[address] [facility] Comment on above: Result Comment: CALC ULATIONS OF ESTIMATED GFR ARE PERFORMED USING THE 2020 CKD-EPI STUDY REFIT EQUATION WITHOUT THE RACE VARIABLE FOR THE IDMS-TRACEABLE CREATININE METHODS. https://jasn.asnjournals.org/content//ASN.4787744 988 Performed By: #### B MP #### [address] [place] [address] Glucose [Mass/Vol] 129 mg/dL High 74 - 99 [facility] Comment on above: Performed By: #### B MP #### [facility] [address] [place] [address] HCO3 (Bld) [Moles/Vol] 28 mmol/L Normal 21 - [address] [facility] Comment on above: Performed By: #### B MP #### [address] [address] Potassium [Moles/Vol] 4.2 mmol/L Normal 3.5 - 5.[address] [facility] Comment on above: Performed By: #### B MP #### [address] [address] Sodium [Moles/Vol] 139 mmol/L Normal 136 - 145 [facility] Comment on above: Performed By: #### B MP #### [address] [address] Urea nitrogen [Mass/Vol] 22 mg/dL Normal 6 - [address] [facility] Comment on above: Performed By: #### B MP #### [address] [address] CBC AND DIFFERENTIALon 06-01 % AUTOMATED IMMATURE GRAN 0.4 % Normal 0.0 - 0.[address] [facility] Comment on above: Result Comment: Coni ture Granulocyte Count (IG) includes promyelocytes, myelocytes and metamyelocytes but does not include bands. Percent differential counts (%) should be interpreted in the context of the absolute cell counts (cells/L). Performed By: #### C BCDF #### [address] [address] Basophils (Bld) [#/Vol] 0.05 10*3/uL Normal 0.00 - 0.[address] [facility] Comment on above: Performed By: #### C BCDF #### [address] [place] [address] Basophils/100 WBC (Bld) 0.7 % Normal 0.0 - 2.[address] [facility] Comment on above: Performed By: #### C BCDF #### [facility] [address] [place] [address] Eosinophils (Bld) [#/Vol] 0.21 10*3/uL Normal 0.00 - 0.[address] [facility] Comment on above: Performed By: #### C BCDF #### [facility] [address] [place] [address] Eosinophils/100 WBC (Bld) 2.9 % Normal 0.0 - 6.[address] [facility] Comment on above: Performed By: #### C BCDF #### [address] [place] [address] Erythrocyte distribution width (RBC) [Ratio] 12.7 % Normal 11.5 - 14.[address] [facility] Comment on above: Performed By: #### C BCDF #### [address] [place] [address] Hematocrit (Bld) [Volume fraction] 39.5 % Normal 36.0 - 46.[address] [facility] Comment on above: Performed By: #### C BCDF #### [address] [place] [address] Hemoglobin (Bld) [Mass/Vol] 13.4 g/dL Normal 12.0 - 16.[address] [facility] Comment on above: Performed By: #### C BCDF #### [address] [place] [address] Lymphocytes (Bld) [#/Vol] 3.00 10*3/uL Normal 1.20 - 4.[address] [facility] Comment on above: Performed By: #### C BCDF #### [facility] [address] [place] [address] Lymphocytes/100 WBC (Bld) 41.3 % Normal 13.0 - 44.[address] [facility] Comment on above: Performed By: #### C BCDF #### [facility] [address] [place] [address] MCHC (RBC) [Mass/Vol] 33.9 g/dL Normal 32.0 - 36.[address] [facility] Comment on above: Performed By: #### C BCDF #### [place] [address] [address] MCV (RBC) [Entitic vol] 88 fL Normal 80 - [address] [facility] Comment on above: Performed By: #### C BCDF #### [address] [address] Monocytes (Bld) [#/Vol] 0.52 10*3/uL Normal 0.10 - 1.[address] [facility] Comment on above: Performed By: #### C BCDF #### [address] [address] Monocytes/100 WBC (Bld) 7.2 % Normal 2.0 - 10.[address] [facility] Comment on above: Performed By: #### C BCDF #### [address] [address] Neutrophils (Bld) [#/Vol] 3.46 10*3/uL Normal 1.20 - 7.[address] [facility] Comment on above: Performed By: #### C BCDF #### [address] [address] Neutrophils/100 WBC (Bld) 47.5 % Normal 40.0 - 80.[address] [facility] Comment on above: Performed By: #### C BCDF #### [address] [address] NUCLEATED RBC 0.0 /100 WBC Normal 0.0 - 0.[address] [facility] Comment on above: Performed By: #### C BCDF #### [address] [address] Platelets (Bld) [#/Vol] 266 10*3/uL Normal 150 - [address] [facility] Comment on above: Performed By: #### C BCDF #### [address] [address] RBC 4.49 x10E12/L Normal 4.00 - 5.[address] [facility] Comment on above: Performed By: #### C BCDF #### [address] [address] WBC (Bld) [#/Vol] 7.3 10*3/uL Normal 4.4 - 11.3 [facility] Comment on above: Performed By: #### C BCDF #### [facility] [address] [place] [address] MAMM DIGITAL SCRN BILATERALo n 02-10-2021 MAMM [...] ARMIJO MD Signed Out: 02/10/21 18:21:51 Normal [facility] Hematologyon 03-20-2019 Hematocrit Volume Fraction (Bld) 40.5 % See Below [facility] dview Work Phone: Comment on above: Reference Range: 36. 0 - 46.0 Hemoglobin mass conc (Bld) 13.3 g/dL See Below [facility] Work Phone: Comment on above: Reference Range: 12. 0 - 16.0 MCV Entitic volume (RBC) 94 fL 80 - 100 [facility]view Work Phone: Platelets #/vol (Bld) 252 {x10E9/L} 150 - 450 [facility] Work Phone: RBC #/vol (Bld) 4.33 {x10E12/L} See Below Gabby Laura [facility] Work Phone: Comment on above: Reference Range: 4.0 0 - 5.20 WBC #/vol (Bld) 0.0 {/100_WBC} 0.0-0.0 [facility] Work Phone: WBC #/vol (Bld) 6.6 {x10E9/L} 4.4 - 11.3 [facility]view Work Phone: IO Hgb A1Con 03-20-2019 HbA1c (Bld) [Mass fraction] 7.1 % 4.4-6.4% [facility]57 Work Phone: Lipid Panelon 03-20-2019 Cholesterol in HDL mass conc 35.3 mg/dL Abnormal [facility] Work Phone: Comment on above: . AGE VERY LOW LOW N ORMAL HIGH 0-19 Y < 35 < 40 40-45 ---- 20- 24 Y ---- < 40 >45 ---- >24 Y ---- < 40 40-60 >60. Cholesterol in LDL mass conc 86 mg/dL 0 - 99 [facility] Work Phone: Comment on above: . NEAR BORD AGE JOHNATHON RABLE OPTIMAL HIGH HIGH VERY HIGH 0-19 Y 0 - 109 --- 110-129 >/= 130 ---- 20-24 Y 0 - 119 --- 120-159 >/= 160 ---- >24 Y 0 - 99 100-129 130-159 160-189 >/=190. Cholesterol mass conc 173 mg/dL 0 - 199 [facility] Work Phone: Comment on above: . AGE [...] Cholesterol non HDL mass conc 138 mg/dL [facility] 6[facility] Work Phone: Comment on above: AGE DESIRABLE BORDER LINE HIGH HIGH VERY HIGH 0-19 Y 0 - 119 120 - 144 >/= 145 >/= 160 20-24 Y 0 - 149 150 - 189 >/= 190 ---- >24 Y 30 MG/DL ABOVE LDL CHOLESTEROL GOAL. Cholesterol.total/Ch olesterol in HDL mass ratio 4.9 {ratio} [facility] Work Phone: Comment on above: REF VALUESDESIRABLE < 3.4HIGH RISK > 5.0 Triglyceride mass conc 261 mg/dL above high threshold 0 - 149 [facility] Work Phone: Comment on above: . AGE [...] mg/dL above high threshold 0 - 40 [facility] Work Phone: Metabolic Panelon 03-20-2019 ALP enzyme act/vol 63 U/L 33 - 110 [facility] Work Phone: Anion gap molar conc 13 mmol/L 10 - 20 MP-U [facility]57 Work Phone: Bilirubin mass conc 0.4 mg/dL 0.0 - 1.2 [facility] Work Phone: Calcium mass conc 9.8 mg/dL 8.6 - 10.6 [facility] Work Phone: Chloride molar conc 99 mmol/L 98 - 107 [facility] Work Phone: CO2 molar conc 34 mmol/L above high threshold 21 - 32 [facility] Work Phone: Creatinine mass conc 0.87 mg/dL See Below [facility] 1055 Work Phone: Comment on above: Reference Range: 0.5 0 - 1.05 Glucose mass conc 152 mg/dL above high threshold 74 - 99 [facility] Work Phone: Potassium molar conc 3.7 mmol/L 3.5 - 5.3 MP[facility] Work Phone: Protein mass conc 7.2 g/dL 6.4 - 8.2 [facility] Work Phone: Sodium molar conc 142 mmol/L 136 - 145 [facility] Work Phone: Urea nitrogen mass conc 18 mg/dL 6 - 23 [facility] Work Phone: Otheron 03-20-2019 Albumin Bromocresol purple (BCP) dye binding method mass conc 4.3 g/dL 3.4 - 5.0 [facility] Work Phone: ALT With P-5'-P enzyme act/vol 46 U/L above high threshold 7 - 45 [facility] Work Phone: Comment on above: Patients treated wit h Sulfasalazine may generate falsely decreased results for ALT. AST With P-5'-P enzyme act/vol 32 U/L 9 - 39 [facility] Work Phone: Erythrocyte distribution width Ratio (RBC) 13.2 % See Below [facility] Janette [facility]view Work Phone: Comment on above: Reference Range: 11. 5 - 14.5 MCHC mass conc (RBC) 32.8 g/dL See Below MP-U Laura Chamberlains [facility] dview Work Phone: Comment on above: Reference Range: 32. 0 - 36.0 >60 >60 [facility] Work Phone: Comment on above: CALCULATIONS OF LUIS MATED GFR ARE PERFORMED USING THE MDRD STUDY EQUATION FOR THE IDMS-TRACEABLE CREATININE METHODS. CLIN CHEM 2007;53:766-72 T4 - Free Thyroxine, Serumon 03-20-2019 T4 free mass conc 1.08 ng/dL See Below [facility] & [facility] [address] Work Phone: Comment on above: Reference Range: 0.7 8 - 1.48 Thyroxine Free testing is performed using different testing methodology at [facility] than at other [facility]. Direct result comparisons should only be made within the same method.. Patients receiving more than 5 mg/day of biotin may have interference in test results. A sample should be taken no sooner than eight hours after previous dose. Contact [phone] for additional information. TSH - Thyroid Stimulating Ho rmone, Serumon 03-20-2019 Thyrotropin Qn 3.22 {mIU/L} See Below [facility] [address] Work Phone: Comment on above: Reference Range: 0.4 4 - 3.98 TSH testing is performed using different testing methodology at [facility] than at other [facility]. Direct result comparisons should only be made within the same method.. Patients receiving more than 5 mg/day of biotin may have interference in test results. A sample should be taken no sooner than eight hours after previous dose. Contact [phone] for additional information. Vital Signs Date Time Vital Sign Value Performing Clinician Jorge duong 05-12-2023 09:24-0400 Body height 185.4 cm Pac 1 Work Phone: [facility] 05-12-2023 09:24-0400 Body temperature 98.2 [degF] Pac 1 Work Phone: [facility] 05-12-2023 09:24-0400 Body weight 91.17 kg Pac 1 Work Phone: [facility] 05-12-2023 09:24-0400 Diastolic blood pressure 79 mm[Hg] Pac 1 Work Phone: [facility] 05-12-2023 09:24-0400 Heart rate 75 /min Pacc 1 Work Phone: [facility] 05-12-2023 09:24-0400 Respiratory rate 18 /min Pacc 1 Work Phone: [facility] 05-12-2023 09:24-0400 SaO2% (BldA) [Mass fraction] 95 % Pacc 1 Work Phone: [facility] 05-12-2023 09:24-0400 Systolic blood pressure 136 mm[Hg] Pacc 1 Work Phone: [facility] 05-07-2023 14:25-0400 Diastolic blood pressure 66 mm[Hg] Dana Goyal MD Work Phone: [facility] 05-07-2023 14:25-0400 Heart rate 68 /min Dana Goyal MD Work Phone: [facility] 05-07-2023 14:25-0400 Systolic blood pressure 120 mm[Hg] Dana Goyal MD Work Phone: [facility] 03-20-2019 11:15-0400 BMI (Body Mass Index) 25.46 kg/m2 Collins Savage [facility] Sa tony & [facility] 1057 Work Phone: 03-20-2019 11:15-0400 Body Temperature 98.7 [degF] Collins Savage [facility] Ely is & rafaele [facility] 1057 Work Phone: 03-20-2019 11:15-0400 Body weight 87.54 kg Collins Savage [facility] Bulmaro s & victor m [facility] 1057 Work Phone: 03-20-2019 11:15-0400 BP Diastolic 84 mm[Hg] Collins Savage [facility] Bulmaro s & [facility] Regions[facility] 1057 Work Phone: 03-20-2019 11:15-0400 BP Systolic 126 mm[Hg] Collins Chamberlainlake [facility] Saridaki s & [facility] 1057 Work Phone: 03-20-2019 11:15-0400 BSA (Body Surface Area) 2.12 m2 Collins Chamberlainlake WANG Sarporshas & [facility] 1057 Work Phone: 03-20-2019 11:15-0400 Height 185.42 cm Collins [place] [facility] Saridaki s & [facility] 1057 Work Phone: 03-20-2019 11:15-0400 Pulse (Heart Rate) 71 /min Collins Monaenavin WANG Escobar akis & [facility] 1057 Work Phone: 03-20-2019 11:15-0400 Pulse Oximetry 96 % Collins Monaenavin [facility] Saridaki s & [facility] 1057 Work Phone: 03-20-2019 11:15-0400 Respiratory Rate 14 /min Collins Chamberlainlake [facility] Saridak is & [facility] 1057 Work Phone: 03-20-2019 11:15-0400 Weight 87.54 kg Collins Chamberlainlake WANG Sarjessicaki s & [facility] 1057 Work Phone: Encounters Encounter Date Encounter Type Care Provider Facility Start: 03-13-2024 End: 03-14-2024 ambulatory COLLINS ANDREWS [facility] Start: 03-09-2024 End: 03-09-2024 ambulatory Zuhair Grubbs Facility:[facility] Start: 03-09-2024 End: 03-09-2024 ambulatory DPM Zuhair Grubbs Work Phone: [facility] Work Phone: Start: 03-09-2024 End: 03-09-2024 Departed Referred DPM Zuhair Grubbs Work Phone: [facility] Start: 02-28-2024 Refill Macario Armstrongerty DPM Work Phone: Orthopedics Comment on above: Refill Request Start: 01-25-2024 Refill Macario Monaeugherty DPM Work Phone: Orthopedics Comment on above: Refill Request Start: 01-17-2024 End: 01-17-2024 ambulatory MACARIO SANTOS Facility:[facility] Start: 01-10-2024 Refill Macario Armstrongerty DPM Work Phone: Orthopedics Comment on above: Refill Request Start: 12-29-2023 Refill Macario Armstrongerty DPM Work Phone: Medical Records Comment on above: Refill Request Start: 12-08-2023 Refill Macario Armstrongerty DPM Work Phone: Medical Records Comment on above: Refill Request Start: 11-26-2023 End: 11-27-2023 ambulatory [facility] Start: 11-25-2023 End: 11-25-2023 ambulatory MACARIO SANTOS Facility:[facility] Start: 11-10-2023 End: 11-10-2023 ambulatory [facility] Facility:[facility] Start: 11-03-2023 Encounter for other preprocedural examination MACARIO SANTOS [facility] Start: 11-03-2023 End: 11-03-2023 ambulatory MACARIO SANTOS Facility:[facility] Start: 10-25-2023 Refill Macario Armstrongerty DPM Work Phone: Orthopedics Comment on above: Refill Request Start: 10-25-2023 Refill Macario Armstrongerty DPM Work Phone: Orthopedics Comment on above: Refill Request Start: 10-18-2023 End: 10-19-2023 ambulatory [facility] Facility:[facility] Start: 10-14-2023 End: 10-14-2023 ambulatory MACARIO SANTOS Facility:[facility] Start: 10-11-2023 End: 10-11-2023 ambulatory Nikki Christel RT(R) Radiology Comment on above: Radiology XR Start: 10-11-2023 Patient encounter procedure Nikki Kearney RT(R) [facility] Start: 09-29-2023 Refill Macario Santos DPM Work Phone: Orthopedics Comment on above: Refill Request Start: 09-27-2023 ambulatory Macario Santos DPM Work Phone: Orthopedics Comment on above: Updated X-rays Start: 09-27-2023 E-mail encounter fro m caregiver Macario Santos DPM Work Phone: [facility] Start: 09-06-2023 End: 09-06-2023 ambulatory Gia Kilgore RT(R) Radiology Comment on above: Radiology XR Start: 09-06-2023 End: 09-06-2023 Patient encounter procedure Gia Pawan Kilgore RT(R) [facility] Comment on above: Diabetes mellitus du e to underlying condition with diabetic autonomic neuropathy, with long-term current use of insulin (HCC) (Primary Dx); Post-op pain; Charcot ankle, right; Osteonecrosis (HCC) Start: 08-05-2023 End: 08-05-2023 ambulatory Rosie Elizondo RT(R) Radiology Comment on above: Radiology XR Start: 08-05-2023 Patient encounter procedure Rosie Elizondo RT(R) [facility] Start: 07-28-2023 Orders Only Macario Santos DPM Work Phone: [facility] [place] Comment on above: Disease of bone (Rima tenea Dx) Start: 07-21-2023 Refill Macario Santos DPM Work Phone: [facility] Comment on above: Refill Request Start: 07-07-2023 Refill Macario Santos DPM Work Phone: Orthopedics Start: 07-02-2023 End: 07-02-2023 ambulatory MACARIO SANTOS Facility:[facility] Start: 07-02-2023 End: 07-02-2023 Patient encounter procedure Macario Santos DPM Work Phone: [facility] Comment on above: Disorder of bone (Pr imary Dx); Charcot ankle, right Start: 07-02-2023 End: 07-02-2023 Subsequent hospital visit by physician Xr [facility] Radiology Comment on above: Charcot ankle, right [M14.671] Start: 06-17-2023 Refill Macario Santos DPM Work Phone: Medical Records Comment on above: Refill Request Start: 06-07-2023 End: 06-07-2023 ambulatory MACARIO SANTOS Facility:[facility] Start: 06-07-2023 End: 06-07-2023 ambulatory MACARIO SANTOS Facility:[facility] Start: 06-04-2023 Refill Macario Santos DPM Work Phone: Orthopedics Start: 06-02-2023 Refill Macario Santos DPM Work Phone: Medical Records Comment on above: Refill Request Start: 05-27-2023 End: 05-27-2023 ambulatory OCLLINS ANDREWS Facility:[facility] Start: 05-27-2023 End: 05-27-2023 Patient encounter procedure Cast Tech Fair[employer]w Work Phone: [facility] Comment on above: Charcot ankle, right (Primary Dx) Start: 05-26-2023 ambulatory Macario Santos DPM Work Phone: [facility] Comment on above: Cast is wet Start: 05-23-2023 Telephone encounter Kaylyn amin BASKET HAND BRAIDER.TECHNICAL SUPPORT COORDINATOR Work Phone: [facility] Adult Comment on above: Follow Up Start: 05-19-2023 Telephone encounter Brigette parks RN [facility] Operating Room Comment on above: Follow Up Start: 05-17-2023 End: 05-18-2023 Evaluation and management of inpatient MACARIO SANTOS Facility:[facility] Start: 05-14-2023 Encounter for preprocedural cardiovascular examination MACARIO SANTOS [facility] Start: 05-14-2023 End: 05-14-2023 ambulatory DANA GOYAL Facility:[facility] Start: 05-14-2023 End: 05-14-2023 Patient encounter status Card Injection Molecular Imagi ng Start: 05-14-2023 End: 05-14-2023 Subsequent hospital visit by physician Card Injection Molecular Imaging Comment on above: Preoperative cardiov ascular examination [Z01.810] Start: 05-14-2023 End: 05-14-2023 ambulatory DANA GOYAL Facility:[facility] Start: 05-12-2023 End: 05-12-2023 Evaluation and management of inpatient MACARIO SANTOS Facility:[facility] Start: 05-12-2023 End: 05-12-2023 [facility] to [facility] Pacc [place] 1 Work Phone: [facility] Start: 05-12-2023 End: 05-12-2023 ambulatory Pacc [place] 1 Work Phone: Pre Anesthesia Comment on above: Pre-op exam (Primary Dx); Diabetes mellitus type 2 with neurological manifestations (HCC); Former smoker; Intermittent asthma without complication, unspecified asthma severity Start: 05-12-2023 End: 05-12-2023 Preprocedural examination done [facility] [place] 1 Work Phone: Pre Anesthesia Start: 05-07-2023 End: 05-07-2023 ambulatory DANA GOYAL Facility:[facility] Start: 05-07-2023 End: 05-07-2023 Office outpatient new 45 minutes Dana Goyal MD Work Phone: Cardiology Comment on above: PAD (peripheral charity ry disease) (HCC) (Primary Dx); Preoperative cardiovascular examination; Diabetes mellitus type 2 with neurological manifestations (HCC); Former smoker Start: 05-07-2023 End: 05-07-2023 Patient encounter status Dana Goyal MD Work Phone: Cardiology Start: 05-05-2023 Orders Only Macario Santos DPM Work Phone: [facility] Comment on above: Osteonecrosis (HCC) (Primary Dx); Charcot ankle, right; Retained orthopedic hardware; Deformity of ankle joint, right Surgical Follow Up Refill Request Start: 05-03-2023 End: 05-03-2023 ambulatory SORTO ODELL SANTOS Facility:[facility] Start: 05-03-2023 End: 05-03-2023 Patient encounter procedure Macario Santos DPM Work Phone: [facility] Comment on above: Osteonecrosis (HCC) (Primary Dx); Charcot ankle, right; Retained orthopedic hardware Start: 04-22-2023 End: 04-22-2023 ambulatory SORTO ODELL SANTOS Facility:[facility] Start: 04-22-2023 End: 04-22-2023 ambulatory SORTO ODELL SANTOS Facility:[facility] Start: 04-22-2023 End: 04-22-2023 Patient encounter procedure Macario Santos DPM Work Phone: Orthopedics Comment on above: Osteonecrosis (HCC) (Primary Dx); Charcot ankle, right Start: 04-20-2023 Orders Only Sortochandu Monaedong DPM Work Phone: [facility] Comment on above: Charcot's joint of [...] mellitus with diabetic peripheral angiopathy without gangrene ([facility]); Unspecified asthma, uncomplicated; Type 2 diabetes mellitus with diabetic polyneuropathy ([facility]); Depression, unspecified; Irritable bowel syndrome without diarrhea; Hypothyroidism, unspecified; Unspecified osteoarthritis, unspecified site; Unspecified visual loss; Unspecified hearing loss, unspecified ear; Personal history of nicotine dependence; alf (current) use of 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 drugs Start: 03-17-[address] Fang Rodriguez Facility:[id number] Start: 03-17-2023 Encounter for preprocedural laboratory examination Dr. Fang Rodriguez [facility] Start: 01-08-2023 End: 01-08-[address] Fang Rodriguez Facility:[id number] Start: 01-05-[address] Fang Rodriguez Facility:[id number] Start: 01-05-2023 Encounter for preprocedural cardiovascular examination Dr. Fang Rodriguez [facility] Start: 08-21-2022 End: 08-21-[address] Fang Rodriguez Facility:[id number] Start: 08-13-2022 End: 08-13-[address] Fang Rodriguez Facility:[id number] Start: 08-10-[address] Fang Rodriguez Facility:[id number] Start: 06-05-2022 End: 06-05-[address] Fang Rodriguez Facility:[id number] Start: 06-01-[address] Fang Rodriguez Facility:[id number] Start: 02-04-2021 End: 02-04-2021 Orders Only Fang Fan Work Phone: [facility] [place] Comment on above: Pain (Primary Dx) Start: 02-23-2020 Patient encounter procedure Collins Savage [facility] Janette & Roberto [facility] 1059 Work Phone: Start: 11-20-2019 Patient encounter procedure Collins Savage [facility] Janette & [facility] 1056 Work Phone: Start: 08-16-2019 Patient encounter procedure Collins Savage [facility] Janette & [facility] 1057 Work Phone: Start: 06-22-2019 Patient encounter procedure Collins Savage [facility] 1057 Work Phone: Start: 03-20-2019 Patient encounter procedure Collins Savage [facility] 1057 Work Phone: Start: 01-26-2019 Nursing evaluation o f patient and report Collins Savage [facility] Janette & [facility] 1057 Work Phone: Start: 11-04-2018 Patient encounter procedure Collins Chamberlainlake [facility] 1057 Work Phone: Start: 03-03-2018 Patient encounter procedure Collins Monaenavin [facility] 1057 Work Phone: Start: 03-03-2018 Ambulatory Collins Savage [facility] ity:[facility] Start: 07-05-2017 Patient encounter procedure Collins Savage [facility] 1057 Work Phone: Start: 03-25-2017 Patient encounter procedure Collins Chamberlainlake [facility] 1057 Work Phone: Encounter for gynecological examination (general) (routine) without abnormal findings Collins oMnaenavin [facility] 1057 Work Phone: Procedures Date Procedure [...] panel - [place] or Plasma Fang Ramoshunter DPM Work Phone: Start: 07-27-2023 Thyrotropin [Units/v olume] in Serum or Plasma Fang Lanierjesssahara DPM Work Phone: Start: 05-14-2023 Myocardial spect mul tiple studies Dana Goyal MD Work Phone: Start: 03-22-2023 Fluoroscopy up to 1 hour physician/qhp time Fang Lanierjesssahara DPM Work Phone: Start: 03-22-2023 Glucose [Mass/volume ] in Serum or Plasma Fang Garza Giulianateresajesssahara DPM Work Phone: Start: 02-23-2020 Follow-up visit [...] Work Phone: History of Foot Surgery Khoa ael Janette Plan of Treatment Date Care Activity Detail Author Start: 03-19-2025 Screening for malignant neoplasm of colon [facility] Start: 11-26-2024 Hepatitis B surface antibody level LDL Cholesterol [facility] Start: 07-27-2024 Hepatitis B surface antibody level LDL Cholesterol [facility] Start: 07-27-2024 Lipid panel Lipid Panel [facility] Start: 07-27-2024 Thyroid stimulating hormone measurement TSH Level [facility] Start: 07-16-2024 Influenza vaccination Influenz a Vaccine (Season Ended) [facility] Start: 05-26-2024 Hemoglobin A1c measurement HbA1C [facility] Start: 05-07-2024 BP CONTROLLED (<130/80) BP CONTROLLED (<130/80) [facility] Start: 05-04-2024 Hemoglobin A1c measurement HbA1C [facility] Start: 01-25-2024 Hemoglobin A1c measurement HbA1C [facility] Start: 11-15-2023 Behavioral Health Screening Behavioral Health Screening [facility] Start: 11-15-2023 Depression Assessment Depression Ass essment [facility] Start: 10-26-2023 Hemoglobin A1c measurement Diabetes: Hemoglobin A1C [facility] Start: 07-16-2023 Covid-19 Vaccine ( season) Covid-19 Vaccine ( season) [facility] Start: 07-16-2023 [facility] Start: 05-07-2023 End: 06-05-2024 NM CARDIAC PERF STRESS/PHARM NM CARDIAC PERF STRESS/PHARM Radiology Routine Preoperative cardiovascular examination Expected: 05/07/2023, Expires: 06/05/2024 [facility] Work Phone: Comment on above: Expected: 05/07/2023 , Expires: 06/05/2024 Start: 05-07-2023 End: 05-07-2024 [facility] Vascular Lab Routine PAD (peripheral artery disease) (HCC) Expected: 05/07/2023, Expires: 05/07/2024 [facility] Work Phone: Comment on above: Expected: 05/07/2023 , Expires: 05/07/2024 Start: 05-07-2023 End: 05-07-2024 US LEG ARTERIAL PERIPH [facility] US LEG ARTERIAL PERIPH [facility] Vascular Lab Routine PAD (peripheral artery disease) (HCC) Expected: 05/07/2023, Expires: 05/07/2024 [facility] Work Phone: Comment on above: Expected: 05/07/2023 , Expires: 05/07/2024 Start: 11-15-2022 DEPRESSION ASSESSMENT DEPRESSION ASS ESSMENT [facility] Start: 2021 Hepatitis B Vaccine (1 of 3 - Risk 3-dose series) Hepatitis B Vaccine (1 of 3 - Risk 3-dose series) [facility] Start: 2021 RSV Vaccine (1 - 1-dose 60+ series) RSV Vaccine (1 - 1-dose 60+ series) [facility] Start: 07-16-2020 Influenza vaccination INFLUENZA (#1) [facility] Start: 03-25-2020 Screening for malignant neoplasm of [facility] Start: 02-23-2020 [facility] Ilana tavares [facility] 1056 Work Phone: Start: 09-20-2019 Hemoglobin A1c/Hemoglobin.total in Blood HBA1C [facility] Start: 03-20-2019 MG Breast screening Mamm - Scr eening Mammogram w/ Tomosynthesis [facility] 1055 Work Phone: Start: 03-20-2019 Xray Bone Dens ity, Dexa 1 or More Sites [facility] 1055 Work Phone: Start: 10-13-2014 HbA1c (Bld) [Mass fraction] HBA1C [facility] Start: 2011 Screening for malignant neoplasm of colon [facility] Start: 2011 SHINGRIX VACCINE (1 of 2) SHINGRIX VACCINE (1 of 2) [facility] Start: 2011 Zoster Vaccines (1 o f 2) Zoster Vaccines (1 of 2) [facility] Start: 2006 COLOGUARD (FIT-DNA) COLOGUARD (FIT-D NA) [facility] Start: 2006 Colonoscopy COLONOSCOPY [facility] Start: 2006 COLORECTAL CANCER SCREENING COLORECTAL CANCER SCREENING [facility] Start: [address] COLONOGRAPHY [facility] Start: 2006 FECAL OCCULT BLOOD FECAL OCCULT BLOO D [facility] Start: 2006 Screening for malignant neoplasm of colon [facility] Start: 2006 SIGMOIDOSCOPY SIGMOIDOSCOPY [facility] Start: 2003 PAP TESTING PAP TESTING [facility] Start: 2001 Mammography [facility] Start: 2001 Screening for malignant neoplasm of breast [facility] Start: 1991 HPV TESTING HPV TESTING [facility] Start: 1991 Screening for malignant neoplasm of cervix HPV Testing [facility] Start: 1983 DTaP/Tdap/Td Vaccine s (1 - Tdap) DTaP/Tdap/Td Vaccines (1 - Tdap) [facility] Start: 1982 PAP TESTING PAP TESTING [facility] Start: 1982 Screening for malignant neoplasm of cervix [facility] Start: 02-08-1980 Urine microalbumin profile [facility] Start: 1979 ANNUAL PCP TEAM CHRONIC DISEASE VISIT ANNUAL PCP TEAM CHRONIC DISEASE VISIT [facility] Start: 1979 BP CONTROLLED (<130/80) BP CONTROLLED (<130/80) [facility] Start: 1979 Hepatitis B surface antibody level LDL CHOLESTEROL [facility] Start: 1979 HEPATITIS C SCREENING HEPATITIS C [facility] Start: 1979 Hepatitis C screening Hepatitis C [facility] Start: 1979 HIV SCREENING HIV SCREENING [facility] Start: 1979 HIV [facility] Start: 1979 SPIROMETRY SPIROMETRY [facility] Start: 1977 ONE PNEUMOVAX PRIOR TO AGE 65 ONE PNEUMOVAX PRIOR TO AGE 65 [facility] Start: 1973 Adult depression screening assessment DEPRESSION SCREENING [facility] Start: 1971 [object Object] DIABETIC FOOT EXAM [facility] Start: 1971 Diabetic foot examination [facility] Start: 1971 Glaucoma screening [facility] Start: 1971 Hepatitis B screening URINE ALBUMIN:CREATININE RATIO [facility] Start: 1971 Hepatitis C antibody , confirmatory test DILATED RETINAL EXAM [facility] Start: 1967 PNEUMOCOCCAL (1 - PCV) PNEUMOCOCCAL (1 - PCV) [facility] Start: 1967 Pneumococcal vaccination [facility] Start: 1967 Pneumococcal Vaccine : Pediatrics (0 to 5 Years) and At-Risk Patients (6 to 64 Years) (1 - PCV) Pneumococcal Vaccine: Pediatrics (0 to 5 Years) and At-Risk Patients (6 to 64 Years) (1 - PCV) [facility] Start: 1962 MMR Vaccines (1 of 1 - Standard series) MMR Vaccines (1 of 1 - Standard series) [facility] Start: 1961 COVID-19 VACCINE (#1) COVID-19 VACCI NE (#1) [facility] Start: 1961 HIV screening HIV Screening [facility] Start: 1961 Screening for malignant neoplasm of colon [facility] Start: 1961 Yearly Adult Physical Yearly Adult P hysical [facility] End: 07-31-2024 MRI ANKLE WO IVCON LEFT MRI ANKLE WO IVCON LEFT Radiology Routine Disorder of bone 1 Occurrences starting 07/02/2023 until 07/31/2024 [facility] Work Phone: Comment on above: 1 Occurrences starti ng 07/02/2023 until 07/31/2024 End: 03-06-2022 Radex ankle complete minimum 3 views XR ANKLE GENERAL 3V AP/LAT/OBL BILAT Radiology Routine Pain 1 Occurrences starting 02/05/2021 until 03/06/2022 [facility] Comment on above: 1 Occurrences starti ng 02/05/2021 until 03/06/2022 End: 03-06-2022 Radex foot complete minimum 3 views XR FOOT GENERAL 3V AP/LAT/OBL RT Radiology Routine Pain 1 Occurrences starting 02/05/2021 until 03/06/2022 [facility] Comment on above: 1 Occurrences starti ng 02/05/2021 until 03/06/2022 End: 07-31-2024 XR ANKLE GENERAL 3V AP/LAT/OBL LEFT XR ANKLE GENERAL 3V AP/LAT/OBL LEFT Radiology Routine Disorder of bone 1 Occurrences starting 07/02/2023 until 07/31/2024 [facility] Work Phone: Comment on above: 1 Occurrences starti ng 07/02/2023 until 07/31/2024 End: 05-19-2024 XR ANKLE GENERAL 3V AP/LAT/OBL RIGHT XR ANKLE GENERAL 3V AP/LAT/OBL RIGHT Radiology Routine Charcot's joint of right ankle 1 Occurrences starting 04/20/2023 until 05/19/2024 [facility] Work Phone: Comment on above: 1 Occurrences starti ng 04/20/2023 until 05/19/2024 End: 07-03-2024 XR ANKLE GENERAL 3V AP/LAT/OBL RIGHT XR ANKLE GENERAL 3V AP/LAT/OBL RIGHT Radiology Routine Charcot ankle, right 1 Occurrences starting 06/04/2023 until 07/03/2024 [facility] Work Phone: Comment on above: 1 Occurrences starti ng 06/04/2023 until 07/03/2024 XR ANKLE GENERAL 3V AP/LAT/OBL RIGHT XR ANKLE GENERAL 3V AP/LAT/OBL RIGHT Radiology Routine Charcot ankle, right 07/02/2023 10:35 AM EDT [facility] Work Phone: End: 08-26-2024 XR ANKLE GENERAL 3V AP/LAT/OBL RIGHT XR ANKLE GENERAL 3V AP/LAT/OBL RIGHT Radiology Routine Disease of bone 1 Occurrences starting 07/28/2023 until 08/26/2024 [facility] Work Phone: Comment on above: 1 Occurrences starti ng 07/28/2023 until 08/26/2024 End: 09-28-2024 XR ANKLE GENERAL 3V AP/LAT/OBL RIGHT XR ANKLE GENERAL 3V AP/LAT/OBL RIGHT Radiology Routine Diabetes mellitus due to underlying condition with diabetic autonomic neuropathy, with long-term current use of insulin (HCC) 1 Occurrences starting 08/30/2023 until 09/28/2024 [facility] Work Phone: Comment on above: 1 Occurrences starti ng 08/30/2023 until 09/28/2024 XR ANKLE GENERAL 3V AP/LAT/OBL RIGHT XR ANKLE GENERAL 3V AP/LAT/OBL RIGHT Radiology Routine Diabetes mellitus due to underlying condition with diabetic autonomic neuropathy, with long-term current use of insulin (HCC) 09/06/2023 1:28 PM EDT [facility] Work Phone: End: 10-05-2024 XR FOOT GENERAL 3V AP/LAT/OBL BILATERAL XR FOOT GENERAL 3V AP/LAT/OBL BILATERAL Radiology Routine Diabetes mellitus due to underlying condition with diabetic autonomic neuropathy, with long-term current use of insulin ([facility]) 1 Occurrences starting 09/06/2023 until 10/05/2024 [facility] Work Phone: Comment on above: 1 Occurrences starti ng 09/06/2023 until 10/05/2024 End: 05-19-2024 XR TIBIA FIBULA 2V AP/LAT LEFT XR TIBIA FIBULA 2V AP/LAT LEFT Radiology Routine Leg abscess 1 Occurrences starting 04/20/2023 until 05/19/2024 [facility] Work Phone: Comment on above: 1 Occurrences starti ng 04/20/2023 until 05/19/2024 [facility] Janette Roberto [facility] 1057 Work Phone: [facility] NEGATED: Highlighted row has been ruled out! Planned Goals not documented [facility] Laura7 Work Phone: Payers Date Payer Category Payer Self-pay 2021 Unknown 2021 Unknown [id number] 2020 Medicaid MEDICAID [facility] MEDICAID [id number] 2020-Present Medicaid [id number] 2020 Medicaid MEDICAID [facility] MEDICAID [id number] 2020-Present [phone] [address] [place] [address] Medicaid [id number] 2020 Medicaid [id number] 2016 Medicare MEDICARE MEDICAR E A AND B [id number] 2016-Present [place] Medicare [id number] 2016 Medicare MEDICARE MEDICAR E A AND B [id number] 2016-Present [phone] [address] [address] [place] [address] Medicare [id number] 1961 Unknown [id number] 1961 Unknown [id number] 1961 Unknown [id number] 1961 Unknown [id number] 1961 Unknown [id number] 1961 Unknown [id number] 1961 Unknown [id number] 1961 Unknown [id number] 1961 Unknown [id number] 1961 Unknown [id number] 1961 Unknown [id number] Social History Date Type Detail Facility Start: 06-27-2014 End: 05-12-2023 Tobacco smoking status WIIS Former smoker [facility] End: 04-24-2009 History of tobacco use Current smoker [facility] End: 04-24-2009 History of tobacco use Cigarette Smoker [facility] Start: 06-27-2014 End: 05-07-2023 Cigarettes smoked current (pack per day) - Reported [facility] Start: 06-27-2014 End: 11-25-2023 Alcohol intake Current drinker of alcohol (finding) [facility] Start: 1960 Sex Assigned At Not on file [facility] Exposure to SARS-CoV-2 (event) Not sure [facility] Start: 1960 Sex Assigned At Female [facility] Start: 05-07-2023 End: 05-17-2023 Tobacco use panel [facility] National Score (1-100), lower number is lower risk 81 [facility] Start: 04-20-2023 Gender identity Identifies as female gender (finding) [facility] Tobacco smoking status WIIS Tobacco smoking consumption unknown [facility] Work Phone: Start: 11-03-2023 Alcohol Comment not on a weekly basi s [facility] NEGATED: Highlighted row - Former smoker - V[facility] 1057 Work Phone: Medical Equipment Procedure Code [...] 08-Mar-2014 Active 100 Unit Box Start: 03-08-2014 Dor-Sa-N-Kind Implant - [id number] Start: 06-29-2011 Comment on above: Description: K-WIRE Zkw-Fm-E-Kind Implant - [id number] Start: 04-24-2014 Comment on above: Description: THREADE D GUIDE WIRE Screw Bn 2.4mm 3 0mm Ti Cmf Lag - [id number] Start: 06-29-2011 Comment on above: Description: OSTEOME D CANNULATED SCREW Screw Bn 4mm 44m m Lcp Ti St - [id number] Start: 04-24-2014 Phantom 2.0 Acti vcor Nil [id number] Start: 05-17-2023 Phantom Nail Crossing Screw 5.0mm X 26mm Length Headed [id number] Start: 05-17-2023 Graft, Flexigraf t, Hamstring, Smi Tendinosus, Frozen Case [id number] Start: 12-09-2021 Comment on above: Description: Convert ed from [facility]. Please see archived information for full log information. Paste Mix Plus, 5cc Case [id number] Start: 06-05-2022 Comment on above: Description: Convert ed from [facility]. Please see archived information for full log information. Bone, Cancellous , Crushed, .1-4mm 15cc, Freeze Dried Case [id number] Start: 08-13-2022 Comment on above: Description: Convert ed from [facility]. Please see archived information for full log information. Graft, Flexigraf t, Hamstring, Smi Tendinosus, Frozen Case [id number] Start: 10-07-2022 Comment on above: Description: Convert ed from [facility]. Please see archived information for full log information. 22 Mm Concave Re amer Case [id number] Start: 12-09-2021 Comment on above: Description: Convert ed from [facility]. Please see archived information for full log information. Dynaclip Procedu re Pack Case [id number] Start: 06-05-2022 Comment on above: Description: Convert ed from [facility]. Please see archived information for full log information. 2.7 Overdrill Ca se [id number] Start: 08-13-2022 Comment on above: Description: Convert ed from [facility]. Please see archived information for full log information. Quick Whip Stitc h Case [id number] Start: 08-21-2022 Comment on above: Description: Convert ed from [facility]. Please see archived information for full log information. Cement Simplex Gentamicin Bone High Viscosity 20ml Sterile 40gm - [id number] Start: 11-10-2023 Phantom Nail Crossing Screw [...] status health issues are not documented Disease [facility] 105 Work Phone: Mental Status Date Assessment Result Facility NEGATED: Highlighted row Cognitive function [Interpretation] Cognitive status health issues are not documented Disease [facility] 1051 Work Phone: Clinical Notes 05-06-2021 to 11-25-2023 Nikki Kearney, ([place]) - 10/11/2023 12:28 PM Macario Sykes DPM - 09/06/2023 2:17 PM EDTCarter, Gia Pawan, RT(R) - 09/06/2023 1:31 PM KatiuskaRosie Pawan, RT(R) - 08/05/2023 2:15 PM EDT Note Date & Type Note Facility 11-25-2023 Note HNO ID: [id number] Author: MACARIO SANTOS DPM Service: ? Author [...] reflux, constipation, diarrhea, (more content not included)... [facility] 11-10-2023 Note HNO ID: [id number] Author: Donell Boateng Service: Pharmacy Author Type: ? Type: Plan of Care Filed: 11/11/2023 10:18 AM Note Text: PHARMACY BEDSIDE DELIVERY SERVICE Patient Name: Marie Sexton The marked outpatient medications were filled at [facility] pharmacy and picked up at the pharmacy [...] your Primary Care Provider. Donell Boateng PAGER: [phone] November 11, 2023 10:18 AM [facility] 11-10-2023 Note HNO ID: [id number] Author: Olivia Faulkner APRN.CYTOGENETICS TECHNOLOGIST Service: Anesthesiology Author Type: Nurse Production Team Advisor Type: Anesthesia Procedure Notes Filed: 11/10/2023 1:12 PM Note Text: ANESTHESIOLOGY PROCEDURE NOTE Airway General Information Procedure Start Time/Medication Administration: 11/10/2023 1:06 PM Patient location during procedure: OR Patient identity confirmed: arm band and patient Staffing CYTOGENETICS TECHNOLOGIST: Olivia Faulkner APRN.CYTOGENETICS TECHNOLOGIST Performed by: LYDIA Indications and Patient Condition [...] November 10, 2023 TIME: 1:11 PM CSN: [id number] [facility] 11-10-2023 Note HNO ID: [id number] Author: Dheeraj Rodrigues DO Service: Pain Management [...] November 10, 2023 TIME: 1:00 PM CSN: [id number] [facility] 11-10-2023 Note HNO ID: [id number] Author: Dheeraj Rodrigues DO Service: Pain Management [...] November 10, 2023 TIME: 12:57 PM CSN: [id number] [facility] 10-14-2023 Note HNO ID: [id number] Author: Cleo Aragon RT(R) Service: ? Author Type: Tenterer Type: Progress Notes Filed: 10/14/2023 11:46 AM [...] RT Dev(R) October 14, 2023 11:44 AM [facility] 10-11-2023 Note HNO ID: [id number] Author: Macario Santos DPM Service: ? Author [...] bilateral. Capillary r (more content not included)... [facility] 10-11-2023 Note HNO ID: [id number] Author: Nikki Kearney RT(R) Service: ? Author [...] RT Amelia(R) October 11, 2023 12:28 PM [facility] 10-11-2023 History of Present illness Narrative [...] 2023 12:28 PM documented in this encounter [facility] 09-06-2023 Note HNO ID: [id number] Author: Macario Santos DPM Service: ? Author [...] as noted below. (more content not included)... [facility] 09-06-2023 Note HNO ID: [id number] Author: Gia Kilgore RT(R) Service: ? Author [...] RT Marivel(R) September 06, 2023 1:31 PM [facility] 09-06-2023 History of Present illness Narrative [...] the right foot and ankle as described. Director Critical Care: SUBHASH Transcribe Date/Time: Apr 22 2023 4:18P... Last MRI Ankle - Impression Only MRI ANKLE WO IVCON RT Exam End: 04/29/2021 11:40 AM (Final result) Impression: IMPRESSION: POSTERIOR TIBIALIS TENOSYNOVITIS. 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 ABNORMAL APPEARANCES OF THE SPRING LIGAMENT AND CALCANEOFIBULAR LIGAMENT. FINDINGS SUGGESTIVE OF MILD PLANTAR FASCIITIS. DIABETIC MUSCLE ATROPHY. Director Critical Care: SUBHASH ... Last MRI Foot - Impression [...] which included preparing to see the patient, [id number] patient care, completing clinical documentation, obtaining and/or reviewing separately obtained history, performing a medically appropriate examination, counseling and educating the patient/family/caregiver, and ordering medications, tests, or procedures. documented in this encounter [facility] 09-06-2023 History of Present illness Narrative [...] 2023 1:31 PM documented in this encounter [facility] 08-05-2023 Note HNO ID: [id number] Author: Macario Santos DPM Service: ? Author [...] Tibial pulses ar (more content not included)... [facility] 08-05-2023 Note HNO ID: [id number] Author: Rosie Elizondo RT(R) Service: ? Author [...] RT Anup(R) August 05, 2023 2:15 PM [facility] 08-05-2023 History of Present illness Narrative [...] 2023 2:15 PM documented in this encounter [facility] 07-02-2023 Note HNO ID: [id number] Author: Macario Santos DPM Service: ? Author [...] and ROS ob (more content not included)... [facility] 07-02-2023 Note HNO ID: [id number] Author: Omayra Padgett RT(R) Service: ? Author [...] RT Radhames(R) July 02, 2023 10:42 AM [facility] 07-02-2023 History of Present illness Narrative [...] the right foot and ankle as described. Director Critical Care: SUBHASH Transcribe Date/Time: Apr 22 2023 4:18P... Last MRI Ankle - Impression Only MRI ANKLE WO IVCON RT Exam End: 04/29/2021 11:40 AM (Final result) Impression: IMPRESSION: POSTERIOR TIBIALIS TENOSYNOVITIS. 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 ABNORMAL APPEARANCES OF THE SPRING LIGAMENT AND CALCANEOFIBULAR LIGAMENT. FINDINGS SUGGESTIVE OF MILD PLANTAR FASCIITIS. DIABETIC MUSCLE ATROPHY. Director Critical Care: SUBHASH ... Last MRI Foot - Impression [...] which included preparing to see the patient, [id number] patient care, completing clinical documentation, obtaining and/or reviewing separately obtained history, performing a medically appropriate examination, counseling and educating the patient/family/caregiver, and ordering medications, tests, or procedures. documented in this encounter [facility] 07-02-2023 History of Present illness Narrative [...] 2023 10:42 AM documented in this encounter [facility] 07-02-2023 Miscellaneous Notes RADIOLOGY SERVICE PROGRESS NOTE DATE OF SERVICE: July 02, 2023 TIME OF SERVICE: 10:03AM EVENT: ARRIVED IN WHEELCHAIR ADDITIONAL EVENT DETAILS: NA SIGNATURE: Francesca Kaur PATIENT NAME: Marie Sexton DATE: July 02, 2023 TIME: 10:12 AM PAGER/CONTACT #: documented in this encounter [facility] 06-07-2023 Note HNO ID: [id number] Author: Mahendra Prajapati MA Service: ? Author Type: Energy Trading Analyst Type: Progress Notes Filed: 06/07/2023 2:52 PM Note Text: Marie presents today for splint removal. Marie's splint was removed and skin cleansed. Marie tolerated this procedure well. Directed Marie and daughter to xray prior to appt w/ Dr. Santos. Mahendra Prajapati MA Splint was removed by Lorraine Yancey RN [facility] 06-07-2023 Note HNO ID: [id number] Author: Macario Santos DPM Service: ? Author [...] anxiety or eula (more content not included)... [facility] 06-07-2023 Note HNO ID: [id number] Author: Sudha Wadsworth RT(R) Service: ? Author [...] RT Rod(R) June 07, 2023 12:07 PM [facility] 06-03-2023 Miscellaneous Notes Message from [facility] Directions: Refills have been requested for the following medications: oxyCODONE-acetaminophen (PERCOCET) 5-325 mg tablet [Dr. Greg Santos] Preferred pharmacy: [facility] [address] [place], [place] [id number] [phone] [facility] Delivery method: Pickup documented in this encounter [facility] 05-27-2023 Note HNO ID: [id number] Author: Regi Cherry Ma Service: ? Author [...] expressed thanks and understanding. Regi Cherry Ma [facility] 05-27-2023 History of Present illness Narrative [...] Regi Cherry Ma documented in this encounter [facility] 05-26-2023 Miscellaneous Notes Contacted patient and scheduled a Cast room appointment on 05/27/2023. Patient calling in stating that her cast is wet and she is trying to dry it with a blow mccann. She is asking what should she do? Please call patient can be reached at [phone] Thank you documented in this encounter [facility] 05-23-2023 Miscellaneous Notes Attempted to call pt to check on status of CADD pump. No answer, left detailed VM. Kaylyn London APRN.GERALDO documented in this encounter [facility] 05-19-2023 Miscellaneous Notes Pt is POD# 2. S/P Right Leg removal of deep hardware Right Ankle fusion Right subtalar joint fusion Fibular osteotomy right ankle [place] of bone marrow autograft right leg with [...] Mara Stallworth RN Acute Pain Management Service [facility] documented in this encounter [facility] 05-18-2023 Note HNO ID: [id number] Author: Giselle Nguyen RN Service: Care Management [...] 18, 2023 TIME: 10:00 AM CONTACT #: [phone] [facility] 05-17-2023 Note HNO ID: [id number] Author: Simin Cervantes RPh Service: Pharmacy Author Type: Pharmacist Type: Plan of Care Filed: 05/17/2023 6:43 PM Note Text: PHARMACY MEDICATION REVIEW Patient Name: Marie Sexton : 1960 The following medications were updated within the INSURANCE VERIFIER medication list: Medications ADDED to INSURANCE VERIFIER medication list Oxycodone-acetaminophen Humalog mix 75-25 Medications CHANGED on INSURANCE VERIFIER medication list Gabapentin Fluoxetine Lantus Levothyroxine Medications REMOVED from INSURANCE VERIFIER medication list Trazodone Hydrocodone-acetaminophen Turmeric (duplicate) Symbicort [...] Yes Completed by: Simin Cervantes PharmD All INSURANCE VERIFIER medications addressed by LIP Patient interested in Bedside Delivery Services or using OP Pharmacy at discharge? Unable to assess Preferred outpatient pharmacy: [facility] [address] [place] [id number] [phone] [facility] [phone] Allergies: Codeine GI Upset Demerol [Meperidine* [...] Facility-Administered Medications: None Simin Cervantes RPh 05/17/2023 [facility] 05-17-2023 Note HNO ID: [id number] Author: Francesca Young RN Service: Nursing Author Type: Registered Nurse Type: Nursing Progress Note Filed: 05/17/2023 3:54 PM Note Text: Report to DEMI Jaffe resuming care of patient. [facility] 05-17-2023 Note HNO ID: [id number] Author: Carlos Barbour MD Service: Anesthesiology Author [...] May 17, 2023 TIME: 1:51 PM CSN: [id number] [facility] 05-17-2023 Note HNO ID: [id number] Author: Carlos Barbour MD Service: Anesthesiology Author [...] specimen collected. Minimal or no blood loss Gkhiuqff1n/transfer criteria are met upon discharge. SIGNATURE: Carlos Barbour MD PATIENT NAME: Marie Sexton DATE: May 17, 2023 TIME: 1:50 PM CSN: [id number] [facility] 05-17-2023 Note HNO ID: [id number] Author: Ramiro Smith MD Service: Anesthesiology Author [...] May 17, 2023 TIME: 8:19 AM CSN: [id number] [facility] 05-17-2023 Note HNO ID: [id number] Author: Ramiro Smith MD Service: Anesthesiology Author [...] May 17, 2023 TIME: 8:17 AM CSN: [id number] [facility] 05-17-2023 Note HNO ID: [id number] Author: SÁNCHEZ Junior Service: ? Author Type: Mis Manager Type: Anesthesia Procedure Notes Filed: 05/17/2023 [...] May 17, 2023 TIME: 8:15 AM CSN: [id number] [facility] 05-17-2023 Note HNO ID: [id number] Author: Brigette Stallworth RN Service: Pain Management Author Type: Registered Nurse Type: Nursing Progress Note Filed: 05/17/2023 7:40 AM Note Text: Patient tolerated procedure very well. Report to primary nurse. [facility] 05-14-2023 Note HNO ID: [id number] Author: RT Myesha(R) Service: Nuclear Medicine Author [...] STATUS: Discontinued PROCEDURE TYPE: NM Stress: 13.1mCi Ph50g-Cxuacfm was administered IV for Rest Imaging at 1145 by Juana BUTLER,RT(N). 33.3 mCi Tr58b-Fdlpwyk was administered IV for Stress Imaging at 1311 by RT Myesha(R). PATIENT DISCHARGED TO: Ambulatory patient, left NM department area. A Diagnostic radioactive procedure has taken place, with no further precautions necessary other than routine body substance precautions. More information regarding radiation safety can be found using this link: [email or web address] rotection %[email or web address]-%20Diagnostic%20Nuclear%20Med icine%20Procedures.pdf SIGNATURE: RT Genet(R) PATIENT NAME: Aprilrad DATE: May 14, 2023 TIME: 11:48 AM PAGER/CONTACT #: [facility] 05-14-2023 Note HNO ID: [id number] Author: Mai Valencia RN Service: Radiology Author [...] ALLERGIES: Reviewed and unchanged MEDICATIONS REVIEWED BY: Furnace Installer Helper PROCEDURE TYPE: NM STRESS: 0.4 mg of [...] safety can be found using this link: [email or web address] rotection %20-%20Diagnostic%20Nuclear%20Med icine%20Procedures.pdf SIGNATURE: Mai Valencia RN PATIENT NAME: April DATE: May 14, 2023 TIME: 1:04 PM PAGER/CONTACT #:[phone] [facility] 05-14-2023 History of Present illness Narrative [...] STATUS: Discontinued PROCEDURE TYPE: NM Stress: 13.1mCi Kw61g-Pqaquye was administered IV for Rest Imaging at 1145 by Juana BUTLER,RT(N). 33.3 mCi Eb95n-Ujumtxl was administered IV for Stress Imaging at 1311 by RT Myesha(R). PATIENT DISCHARGED TO: Ambulatory patient, left NM department area. A Diagnostic radioactive procedure has taken place, with no further precautions necessary other than routine body substance precautions. More information regarding radiation safety can be found using this link: [email or web address]%[email or web address] rotection%20-%20Diagnostic%20Nucl ear%20Medicine%20Procedures.pdf SIGNATURE: Lucero Cruz RT(R) [...] ALLERGIES: Reviewed and unchanged MEDICATIONS REVIEWED BY: Furnace Installer Helper PROCEDURE TYPE: NM STRESS: 0.4 mg of [...] safety can be found using this link: [email or web address] [email or web address]-%20Diagnostic%20Nucl ear%20Medicine%20Procedures.pdf SIGNATURE: Mai Valencia RN PATIENT NAME: April Darshan DATE: May 14, 2023 TIME: 1:04 PM PAGER/CONTACT #:[phone] documented in this encounter [facility] 05-12-2023 Instructions Indiana Clemens PA-C - 05/12/2023 9:32 AM EDT PATIENT PREOPERATIVE INSTRUCTIONS Macario Santos* has scheduled you for your procedure at this surgery center: [facility]: [phone] --[phone] [address]. Please check in on the 1st floor [...] coffee creamer - NO pulp juices (ex. [place] juice) Is Patient Diabetic:Yes Preoperative Instructions for [...] Procedures: - YOU MUST HAVE A RESPONSIBLE FOUNDRY HAND TAKE YOU HOME. A SALES ACTIVITY MANAGER OR BATTER OUT CANNOT BE MADE A RESPONSIBLE FOUNDRY HAND. - We recommend that a responsible person [...] Advance Directive, please fax a copy to [phone] or email to for it to be [...] Indiana Clemens PA-C documented in this encounter [facility] 05-12-2023 History and physical note HISTORY [...] fevers. Neuro: No history of TIA's, stroke, BICYCLE II ASSEMBLER tumor, impaired sensorium, hemiplegia, paraplegia or quadraplegia. No neurological symptoms or problems. + peripheral neuropathy Respiratory: No history of current cough or dyspnea, or pneumonia in the past 6 weeks. No history of respiratory/pulmonary symptoms or problems. + former smoker + asthma uses inhalers PRN Cardiovascular: No history of HTN requiring medication, no history of angina, CHF, ME, cardiac surgery or stents. Denies rest pain, gangrene or revascularization/amputation for PVD. No history of cardiovascular symptoms or problems. + swelling foot on HCTZ GI: No history of GI symptoms or problems. No history of esophageal varices, recent ascites, or ETOH greater than 2 drinks per day. 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 Author Type: Physician Type: Progress Notes Filed: 05/07/2023 3:11 PM Note Text: Heart, Vascular [facility] Thoracic [place] Natalia Shrestha Department of Cardiovascular Medicine SECTION OF INTERVENTIONAL CARDIOLOGY OUTPATIENT VISIT DATE 05/07/2023 OUTPATIENT VISIT TYPE New PRIMARY CARE PHYSICIAN: Collins Andrews ([facility]) [address] [place] [address] REFERRING PHYSICIAN: No referring provider defined for [...] (SYMBICORT) 160-4.5 mcg/actuatio (more content not included)... [facility] 05-07-2023 History of Present illness Narrative Images from the original note were not included. 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 Will also review on [employer]. documented in this encounter [facility] 05-03-2023 Note HNO ID: [id number] Author: Macario Santos DPM Service: ? Author [...] are palpable b (more content not included)... [facility] 05-03-2023 History of Present illness Narrative [...] the hindfoot and midfoot without complication identified. Director Critical Care: SUBHASH Transcribe Date/Time: Apr 23 2023 4:47P... Last CT Foot - Impression Only No resulted procedures found. Last CT Ankle - Impression Only CT ANKLE WO IVCON RIGHT Exam End: 04/22/2023 3:55 PM (Final result) Impression: IMPRESSION: Intact postoperative changes of the right foot and ankle as described. Director Critical Care: SUBHASH Transcribe Date/Time: Apr 22 2023 4:18P... Last MRI Ankle - Impression Only MRI ANKLE WO IVCON RT Exam End: 04/29/2021 11:40 AM (Final result) Impression: IMPRESSION: POSTERIOR TIBIALIS TENOSYNOVITIS. 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 ABNORMAL APPEARANCES OF THE SPRING LIGAMENT AND CALCANEOFIBULAR LIGAMENT. FINDINGS SUGGESTIVE OF MILD PLANTAR FASCIITIS. DIABETIC MUSCLE ATROPHY. Director Critical Care: SUBHASH ... Last MRI Foot - Impression [...] which included preparing to see the patient, [id number]-kk-afzp patient care, completing clinical documentation, obtaining and/or reviewing separately obtained history, performing a medically appropriate examination, counseling and educating the patient/family/caregiver, and ordering medications, tests, or procedures. documented in this encounter [facility] 04-22-2023 Note HNO ID: [id number] Author: RT Moisés(Aristides) Service: ? Author Type: [...] RT Moisés(R) April 22, 2023 3:56 PM [facility] 04-22-2023 Note HNO ID: [id number] Author: RT Anup(R) Service: ? Author Type: [...] RT Anup(R) April 22, 2023 2:27 PM [facility] 04-22-2023 Note HNO ID: [id number] Author: Macario Santos DPM Service: ? Author [...] have confirmed an (more content not included)... [facility] 04-22-2023 History of Present illness Narrative [...] the hindfoot and midfoot without complication identified. Director Critical Care: SUBHASH Transcribe Date/Time: Apr 23 2023 4:47P... Last CT Foot - Impression Only No resulted procedures found. Last CT Ankle - Impression Only CT ANKLE WO IVCON RIGHT Exam End: 04/22/2023 3:55 PM (Final result) Impression: IMPRESSION: Intact postoperative changes of the right foot and ankle as described. Director Critical Care: SUBHASH Transcribe Date/Time: Apr 22 2023 4:18P... Last MRI Ankle - Impression Only MRI ANKLE WO IVCON RT Exam End: 04/29/2021 11:40 AM (Final result) Impression: IMPRESSION: POSTERIOR TIBIALIS TENOSYNOVITIS. 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 ABNORMAL APPEARANCES OF THE SPRING LIGAMENT AND CALCANEOFIBULAR LIGAMENT. FINDINGS SUGGESTIVE OF MILD PLANTAR FASCIITIS. DIABETIC MUSCLE ATROPHY. Director Critical Care: SUBHASH ... Last MRI Foot - Impression [...] which included preparing to see the patient, [id number]-[id number] patient care, completing clinical documentation, obtaining and/or reviewing separately obtained history, performing a medically appropriate examination, counseling and educating the patient/family/caregiver, and ordering medications, tests, or procedures. documented in this encounter [facility] 03-22-2023 Note History & Physical R [...] the note. I personally evaluated the patient [id number] Electronic Signatures: Sirena Oconnor (FLASH (Resident)) (Signed 22-Mar-2023 12:37) Authored: History & Physical Reviewed, ERAS, Consent, Note Completion Fang Rodriguez) (Signed 22-Mar-2023 13:06) Authored: Note Completion Co-Signer: History & Physical Reviewed, ERAS, Consent, Note Completion Last Updated: 22-Mar-2023 13:06 by Fang Rodriguez) [facility] 03-22-2023 History and physical note History & [...] Last Updated: 22-Mar-2023 13:06 by Fang Rodriguez) [facility] 03-22-2023 History and physical note [...] Fang Rodriguez (FLASH) documented in this encounter [facility] Work Phone: 08-21-2022 Note History & Physical [...] the note. I personally evaluated the patient [id number] Electronic Signatures: Darin Myers (FLASH (Resident)) (Signed 21-Aug-2022 11:22) Authored: History & Physical Reviewed, ERAS, Consent, Note Completion Fang Rodriguez) (Signed 21-Aug-2022 12:39) Authored: Note Completion Co-Signer: History & Physical Reviewed, ERAS, Consent, Note Completion Last Updated: 21-Aug-2022 12:39 by Fang Rodriguez) [facility] 08-13-2022 Note History & Physical R eviewed: [...] the note. I personally evaluated the patient [id number] Electronic Signatures: Sirena Oconnor (DPM (Resident)) (Signed 13-Aug-2022 06:59) Authored: History & Physical Reviewed, ERAS, Consent, Note Completion Fang Rodriguez (FLASH) (Signed 13-Aug-2022 07:41) Authored: Note Completion Co-Signer: History & Physical Reviewed, ERAS, Consent, Note Completion Last Updated: 13-Aug-2022 07:41 by Fang Rodriguez (FLASH) [facility] 06-05-2022 Note History & Physical R eviewed: [...] the note. I personally evaluated the patient [id number] Electronic Signatures: Ly Sheikh (DPM (Resident)) (Signed 05-Jun-2022 06:50) Authored: History & Physical Reviewed, ERAS, Consent, Note Completion Fang Rodriguez (FLASH) (Signed 05-Jun-2022 09:32) Authored: Note Completion Co-Signer: History & Physical Reviewed, ERAS, Consent, Note Completion Last Updated: 05-Jun-2022 09:32 by Fang Rodriguez (FLASH) [facility] 05-06-2021 History of Past i llness Narrative Problem Noted Date Resolved Date Difficulty walking 05/06/2021 05/17/2023 diabetes 05/17/2023 Arthritis 05/17/2023 documented as of this encounter (statuses as of 05/20/2023) [facility] of Past illness Narrative* Problem Noted Date Diagnosed Date Resolved Date Difficulty walking 05/06/2021 3 diabetes 05/17/2023 Arthritis 05/17/2023 documented as of this encounter (statuses as of 05/23/2023) [facility] History of Past illness Narrative* Problem Noted Date Diagnosed Date Resolved Date Difficulty walking 05/06/2021 3 diabetes 05/17/2023 Arthritis 05/17/2023 documented as of this encounter (statuses as of 05/27/2023) [facility] of Past illness Narrative* Problem Noted Date Diagnosed Date Resolved Date Difficulty walking 05/06/2021 3 diabetes 05/17/2023 Arthritis 05/17/2023 documented as of this encounter (statuses as of 05/28/2023) [facility] of Past illness Narrative* Problem Noted Date Diagnosed Date Resolved Date Difficulty walking 05/06/2021 3 diabetes 05/17/2023 Arthritis 05/17/2023 documented as of this encounter (statuses as of 06/03/2023) [facility] of [facility] Narrative* Problem Noted Date Diagnosed Date Resolved Date Difficulty walking 05/06/2021 3 diabetes 05/17/2023 Arthritis 05/17/2023 documented as of this encounter (statuses as of 06/04/2023) [address]22-2021 History of Past illness Narrative* Problem Noted Date Diagnosed Date Resolved Date Difficulty walking 05/06/2021 3 diabetes 05/17/2023 Arthritis 05/17/2023 documented as of this encounter (statuses as of 06/21/2023) [facility] Narrative* Problem Noted Date Diagnosed Date Resolved Date Difficulty walking 05/06/2021 3 diabetes 05/17/2023 Arthritis 05/17/2023 documented as of this encounter (statuses as of 07/03/2023) [facility] of [facility] Narrative* Problem Noted Date Diagnosed Date Resolved Date Difficulty walking 05/06/2021 3 diabetes 05/17/2023 Arthritis 05/17/2023 documented as of this encounter (statuses as of 07/05/2023) [facility] Narrative* Problem Noted Date Diagnosed Date Resolved Date Difficulty walking 05/06/2021 3 diabetes 05/17/2023 Arthritis 05/17/2023 documented as of this encounter (statuses as of 07/08/2023) [facility] Narrative* Problem Noted Date Diagnosed Date Resolved Date Difficulty walking 05/06/2021 3 diabetes 05/17/2023 Arthritis 05/17/2023 documented as of this encounter (statuses as of 07/21/2023) [facility] Narrative* Problem Noted Date Diagnosed Date Resolved Date Difficulty walking 05/06/2021 3 diabetes 05/17/2023 Arthritis 05/17/2023 documented as of this encounter (statuses as of 07/28/2023) [facility] Narrative* Problem Noted Date Diagnosed Date Resolved Date Difficulty walking 05/06/2021 3 diabetes 05/17/2023 Arthritis 05/17/2023 documented as of this encounter (statuses as of 08/06/2023) [facility] Narrative* Problem Noted Date Diagnosed Date Resolved Date Difficulty walking 05/06/2021 3 diabetes 05/17/2023 Arthritis 05/17/2023 documented as of this encounter (statuses as of 09/06/2023) [facility] Narrative* Problem Noted Date Diagnosed Date Resolved Date Difficulty walking 05/06/2021 3 diabetes 05/17/2023 Arthritis 05/17/2023 documented as of this encounter (statuses as of 09/07/2023) [facility] Narrative* Problem Noted Date Diagnosed Date Resolved Date Difficulty walking 05/06/2021 3 diabetes 05/17/2023 Arthritis 05/17/2023 documented as of this encounter (statuses as of 09/28/2023) [facility] History of Past illness Narrative* Problem Noted Date Diagnosed Date Resolved Date Difficulty walking 05/06/2021 3 diabetes 05/17/2023 Arthritis 05/17/2023 documented as of this encounter (statuses as of 09/30/2023) [facility] History of Past illness Narrative* Problem Noted Date Diagnosed Date Resolved Date Difficulty walking 05/06/2021 3 diabetes 05/17/2023 Arthritis 05/17/2023 documented as of this encounter (statuses as of 10/11/2023) [facility] History of Past illness Narrative* Problem Noted Date Diagnosed Date Resolved Date Difficulty walking 05/06/2021 3 diabetes 05/17/2023 Arthritis 05/17/2023 documented as of this encounter (statuses as of 10/27/2023) [facility] History of Past illness Narrative* Problem Noted Date Diagnosed Date Resolved Date Difficulty walking 05/06/2021 3 diabetes 05/17/2023 Arthritis 05/17/2023 documented as of this encounter (statuses as of 10/27/2023) [facility] History of Past illness Narrative* Problem Noted Date Diagnosed Date Resolved Date Difficulty walking 05/06/2021 3 Diabetic foot ulcer 12/21/2013 11/03/20 23 diabetes 05/17/2023 Arthritis 05/17/2023 documented as of this encounter (statuses as of 12/17/2023) [facility] History of Past illness Narrative* Problem Noted Date Diagnosed Date Resolved Date Difficulty walking 05/06/2021 3 Diabetic foot ulcer 12/21/2013 11/03/20 23 diabetes 05/17/2023 Arthritis 05/17/2023 documented as of this encounter (statuses as of 12/29/2023) [facility] History of Past illness Narrative* Problem Noted Date Diagnosed Date Resolved Date Difficulty walking 05/06/2021 3 Diabetic foot ulcer 12/21/2013 11/03/20 23 diabetes 05/17/2023 Arthritis 05/17/2023 documented as of this encounter (statuses as of 01/11/2024) [facility] History of Past illness Narrative* Problem Noted Date Diagnosed Date Resolved Date Difficulty walking 05/06/2021 3 Diabetic foot ulcer 12/21/2013 11/03/20 23 diabetes 05/17/2023 Arthritis 05/17/2023 documented as of this encounter (statuses as of 01/27/2024) [facility] History of Past illness Narrative* Problem Noted Date Diagnosed Date Resolved Date Difficulty walking 05/06/2021 3 Diabetic foot ulcer 12/21/2013 11/03/20 23 diabetes 05/17/2023 Arthritis 05/17/2023 documented as of this encounter (statuses as of 03/01/2024) [facility] Charcot's joint of right [...] ankle joint, right [facility] Diagnosis Charcot ankle, right- Primary Osteonecrosis (HCC) Aseptic necrosis of bone, site unspecified Charcot ankle, right Retained orthopedic hardware Other postprocedural status Deformity of ankle joint, right [facility]* Diagnosis PAD (peripheral artery disease) (HCC)- [...] ankle joint, right [facility]* Diagnosis Pre-op exam- Primary Preoperative examination, [...] ankle joint, right [facility]* Diagnosis Preoperative cardiovascular examination Pre-operative cardiovascular examination Osteonecrosis (HCC) Aseptic necrosis of bone, site unspecified Charcot ankle, right Retained orthopedic hardware Other postprocedural status Deformity of ankle joint, right [facility]* Diagnosis Charcot ankle, right- Primary [facility]* Diagnosis Charcot ankle, right- Primary Arthritis Arthropathy, unspecified, site unspecified [facility]* Diagnosis Charcot ankle, right- Primary [facility]* Diagnosis Charcot ankle, right [facility] Diagnosis Charcot ankle, right [facility]* Diagnosis Disorder of bone- Primary Disorder of bone and cartilage, unspecified Charcot ankle, right documented in this encounter [facility] note* Diagnosis Charcot ankle, right documented in this encounter [facility] note* Diagnosis Disease of bone- Primary Disorder of bone and cartilage, unspecified documented in this encounter [facility] note* Diagnosis Diabetes mellitus due to underlying condition with diabetic autonomic neuropathy, with long-term current use of insulin ([facility])- Primary Post-op pain Other acute postoperative pain Charcot ankle, right Osteonecrosis ([facility]) Aseptic necrosis of bone, site unspecified documented in this encounter [facility] note* Diagnosis Post-op pain Other acute postoperative pain documented in this encounter [facility] note* Diagnosis Subluxation of right ankle joint, initial encounter Presence of other specified devices Valgus deformity, not elsewhere classified, right ankle Subluxation of right ankle joint, subsequent encounter Subluxation of left ankle joint, subsequent encounter Hyperlipidemia, unspecified Type 2 diabetes mellitus with diabetic peripheral angiopathy without gangrene ([facility]) Unspecified asthma, uncomplicated Type 2 diabetes mellitus with diabetic polyneuropathy ([facility]) Depression, unspecified Irritable bowel syndrome without diarrhea Hypothyroidism, unspecified Unspecified osteoarthritis, unspecified site Unspecified visual loss Unspecified hearing loss, unspecified ear Personal history of nicotine dependence alf (current) use of 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 drugs documented in this encounter [facility] Work Phone: Evaluation note* Diagnosis Post-op pain Other acute postoperative pain documented in this encounter [facility] note* Diagnosis Charcot ankle, right documented in this encounter [facility] note* Diagnosis Charcot ankle, right documented in this encounter [facility] note* Diagnosis Charcot ankle, right documented in this encounter [facility] noteNo assessment information availableMain [facility] Work Phone: Reason for referral (narrative)* Diagnostic Procedure Only (Routine) - Authorized Specialty Diagnoses / Procedures Referred By Perla lyon Referred To Contact XR IMAGING Diagnoses Leg abscess Procedures XR TIBIA FIBULA 2V AP/LAT LEFT RADIOLOGIC EXAMINATION TIBIA & FIBULA 2 VIEWS Macario Santos DPM [address] [place] [address] Xr Imaging Referral ID Status Reason Start Date Expiration Date Visits Requested Visits Authorized [id number] Authorized Auto-Generat ed Referral 04/20/2023 05/19/2024 1 1 * Diagnostic Procedure Only (Routine) - Authorized Specialty Diagnoses / Procedures Referred By Contac t Referred To Contact XR IMAGING Diagnoses Charcot's joint of right ankle Procedures XR ANKLE GENERAL 3V AP/LAT/OBL RIGHT RADEX ANKLE COMPLETE MINIMUM 3 VIEWS Macario Santos DPM [address] [place] [address] Xr Imaging Referral ID Status Reason Start Date Expiration Date Visits Requested Visits Authorized [id number] Authorized Auto-Generat ed Referral 04/20/2023 05/19/2024 1 1 [facility] for referral (narrative)* Diagnostic Procedure Only (Routine) - Authorized Specialty Diagnoses / Procedures Referred By Contac t Referred To Contact MOLECULAR & FUNCTIONAL IMAGING Diagnoses Preoperative cardiovascular examination Procedures NM CARDIAC PERF STRESS/PHARM MYOCARDIAL [place] [address] [place] [address] Molecular & Functional Imaging [address] [place] [address] Referral ID Status Reason Start Date Expiration Date Visits Requested Visits Authorized [id number] Authorized Auto-Generat ed Referral 05/07/2023 06/05/2024 1 1 * Outpatient Procedure (Routine) - Authorized Specialty Diagnoses / Procedures Referred By Contac t Referred To Contact [facility] Diagnoses PAD (peripheral artery disease) (HCC) Procedures US LEG ARTERIAL PERIPH [facility] DUP-SCAN LXTR ART/ARTL [place] [address] [place] [address] [facility] [place] [address] [place] [address] Referral ID Status Reason Start Date Expiration Date Visits Requested Visits Authorized [id number] Authorized Auto-Generat ed Referral 05/07/2023 05/06/2024 1 1 * Outpatient Procedure (Routine) - Authorized Specialty Diagnoses / Procedures Referred By Contac t Referred To Contact [facility] Diagnoses PAD (peripheral artery disease) (HCC) Procedures PVR LEG [facility] NON-INVASIVE PHYSIOLOGIC STUDY EXTREMITY 3 [facility] [place] [address] [facility] [place] [address] [facility] [address] [place] [address] Referral ID Status Reason Start Date Expiration Date Visits Requested Visits Authorized [id number] Authorized Auto-Generat ed Referral 05/07/2023 05/06/2024 1 1 [facility] for referral (narrative)* Diagnostic Procedure Only (Routine) - Closed Specialty Diagnoses / Procedures Referred By Contac t Referred To Contact MOLECULAR & FUNCTIONAL IMAGING Diagnoses Preoperative cardiovascular examination Procedures NM CARDIAC PERF STRESS/PHARM MYOCARDIAL [place] [address] [facility] [place] [address] Molecular [facility] Functional Imaging [address] [place] [address] Referral ID Status Reason Start Date Expiration Date V isits Requested Visits Authorized [id number] Closed Auto-Generate d Referral 05/07/2023 06/05/2024 1 1 [facility] for referral (narrative)* Diagnostic Procedure Only (Routine) - Authorized Specialty Diagnoses / Procedures Referred By Contac t Referred To Contact XR IMAGING Diagnoses Charcot ankle, right Procedures XR ANKLE GENERAL 3V AP/LAT/OBL RIGHT RADEX ANKLE COMPLETE MINIMUM 3 VIEWS Macario Santos DPM [address] [place] [address] Xr Imaging Referral ID Status Reason Start Date Expiration Date Visits Requested Visits Authorized [id number] Authorized Auto-Generat ed Referral 06/04/2023 07/03/2024 1 1 [facility] for referral (narrative)* Diagnostic Procedure Only (Routine) - Authorized Specialty Diagnoses / Procedures Referred By Contac t Referred To Contact XR IMAGING Diagnoses Disease of bone Procedures XR ANKLE GENERAL 3V AP/LAT/OBL RIGHT RADEX ANKLE COMPLETE MINIMUM 3 VIEWS Macario Santos DPM [address] [place] [phone] Xr Imaging [facility] Referral ID Status Reason Start Date Expiration Date Visits Requested Visits Authorized [id number] Authorized Auto-Generat ed Referral 07/28/2023 08/26/2024 1 1 [facility] for referral (narrative)* Diagnostic Procedure Only (Routine) - Pending Review Specialty Diagnoses / Procedures Referred By Contac t Referred To Contact XR IMAGING Diagnoses Diabetes mellitus due to underlying condition with diabetic autonomic neuropathy, with long-term current use of insulin (HCC) Procedures XR FOOT GENERAL 3V AP/LAT/OBL BILATERAL RADEX FOOT COMPLETE MINIMUM 3 VIEWS Macario Santos DPM [address] [place] [phone] [place] [address] Referral ID Status Reason Start Date Expiration Date Visits Requested Visits Authorized [id number] Pending Review Auto-Generat ed Referral 10/05/2024 1 1 * Diagnostic Procedure Only (Routine) - Closed Specialty Diagnoses / Procedures Referred By Contac t Referred To Contact XR IMAGING Diagnoses Diabetes mellitus due to underlying condition with diabetic autonomic neuropathy, with long-term current use of insulin (HCC) Procedures XR ANKLE GENERAL 3V AP/LAT/OBL RIGHT RADEX ANKLE COMPLETE MINIMUM 3 VIEWS Macario Santos DPM [address] [place] [address] [place] [address] Referral ID Status Reason Start Date Expiration Date V isits Requested Visits Authorized [id number] Closed Auto-Generate d Referral 08/30/2023 09/28/2024 1 1 [facility] for visit Narrative* Diagnostic Procedure Only (Routine) - Closed Specialty Diagnoses / Procedures Referred By Perla lyon Referred To Contact XR IMAGING Diagnoses Charcot ankle, right Procedures XR ANKLE GENERAL 3V AP/LAT/OBL RIGHT RADEX ANKLE COMPLETE MINIMUM 3 VIEWS Macario Santos DPM [address] [place] [phone] [place] [address] Referral ID Status Reason Start Date Expiration Date V isits Requested Visits Authorized [id number] Closed Auto-Generate d Referral 07/08/2023 07/06/2024 1 1 [facility] Summary Purpose Family History No Family [...] EXTREMITY W/O CONTRAST [place] [address] [place] [address] Ct Imaging Referral ID Status Reason Start Date Expiration Date V isits Requested Visits Authorized [id number] Closed Auto-Generate d Referral 04/22/2023 05/21/2024 1 1 Specialty Diagnoses / Procedures Referred By Perla lyon Referred To Contact Cardiology Diagnoses Charcot ankle, right Procedures CONSULT TO CARDIOLOGY Macario Santos DPM [address] [place] [address] [place] [address] [place] [id number] Referral ID Status Reason Start Date Expiration Date Visits Requested Visits Authorized [id number] Ref Not Required PCP Requested Referral 05/05/2023 05/04/2024 1 1 Specialty Diagnoses / Procedures Referred By Contac t Referred To Contact MR IMAGING Diagnoses Disorder of bone Procedures MRI ANKLE WO IVCON LEFT MRI ANY JT LOWER EXTREM W/O CONTRAST MATRL Macario Santos DPM [address] [place] [phone] [facility] [place] [address] Referral ID Status Reason Start Date Expiration Date Visits Requested Visits Authorized [id number] Authorized Auto-Generat ed Referral 07/02/2023 07/31/2024 1 1 Specialty Diagnoses / Procedures Referred By Contac t Referred To Contact XR IMAGING Diagnoses Disorder of bone Procedures XR ANKLE GENERAL 3V AP/LAT/OBL LEFT RADEX ANKLE COMPLETE MINIMUM 3 VIEWS Macario Santos DPM [address] [place] [phone] Xr Imaging [place] [address] Referral ID Status Reason Start Date Expiration Date Visits Requested Visits Authorized [id number] Pending Review Auto-Generat ed Referral 07/02/2023 07/31/2024 1 1 Additional Source Comments INFORMATION SOURCE (unrecogn ized section and content) DATE CREATED AUTHOR 05/05/2018 [facility] DATE CREATED AUTHOR AUTHOR'S ORGANIZ ATION 02/23/2020 [employer] DATE CREATED AUTHOR AUTHOR'S ORGANIZ ATION 02/11/2021 [facility] DATE CREATED AUTHOR AUTHOR'S ORGANIZ ATION 03/29/[address] [facility] DATE CREATED AUTHOR AUTHOR'S ORGANIZ ATION 07/28/2023 [facility] DATE CREATED AUTHOR AUTHOR'S ORGANIZ ATION 12/07/2023 [facility] DATE CREATED AUTHOR AUTHOR'S ORGANIZ ATION 01/18/2024 [facility] DATE CREATED AUTHOR AUTHOR'S ORGANIZ ATION 03/18/2024 [facility] DATE CREATED AUTHOR AUTHOR'S ORGANIZ ATION 03/18/2024 [facility] Source Comments (unrecognize d section and content) In the event this informatio n is protected by the Federal Confidentiality of Alcohol and Drug Abuse Patient Records regulations: The Federal rules restrict any use of the information to criminally investigate or prosecute any alcohol or drug abuse patient.[facility] event this information is protected by the Federal Confidentiality of Alcohol and Drug Abuse Patient Records regulations: The Federal rules restrict any use of the information to criminally investigate or prosecute any alcohol or drug abuse patient.[facility] the event this information is protected by the Federal Confidentiality of Alcohol and Drug Abuse Patient Records regulations: The Federal rules restrict any use of the information to criminally investigate or prosecute any alcohol or drug abuse patient.[facility] the event this information is protected by the Federal Confidentiality of Alcohol and Drug Abuse Patient Records regulations: The Federal rules restrict any use of the information to criminally investigate or prosecute any alcohol or drug abuse patient.[facility] the event this information is protected by the Federal Confidentiality of Alcohol and Drug Abuse Patient Records regulations: The Federal rules restrict any use of the information to criminally investigate or prosecute any alcohol or drug abuse patient.[facility] the event this information is protected by the Federal Confidentiality of Alcohol and Drug Abuse Patient Records regulations: The Federal rules restrict any use of the information to criminally investigate or prosecute any alcohol or drug abuse patient.[facility] the event this information is protected by the Federal Confidentiality of Alcohol and Drug Abuse Patient Records regulations: The Federal rules restrict any use of the information to criminally investigate or prosecute any alcohol or drug abuse patient.[facility] the event this information is protected by the Federal Confidentiality of Alcohol and Drug Abuse Patient Records regulations: The Federal rules restrict any use of the information to criminally investigate or prosecute any alcohol or drug abuse patient.[facility] the event this information is protected by the Federal Confidentiality of Alcohol and Drug Abuse Patient Records regulations: The Federal rules restrict any use of the information to criminally investigate or prosecute any alcohol or drug abuse patient.[facility] the event this information is protected by the Federal Confidentiality of Alcohol and Drug Abuse Patient Records regulations: The Federal rules restrict any use of the information to criminally investigate or prosecute any alcohol or drug abuse patient.[facility] the event this information is protected by the Federal Confidentiality of Alcohol and Drug Abuse Patient Records regulations: The Federal rules restrict any use of the information to criminally investigate or prosecute any alcohol or drug abuse patient.[facility] the event this information is protected by the Federal Confidentiality of Alcohol and Drug Abuse Patient Records regulations: The Federal rules restrict any use of the information to criminally investigate or prosecute any alcohol or drug abuse patient.[facility] the event this information is protected by the Federal Confidentiality of Alcohol and Drug Abuse Patient Records regulations: The Federal rules restrict any use of the information to criminally investigate or prosecute any alcohol or drug abuse patient.[facility] the event this information is protected by the Federal Confidentiality of Alcohol and Drug Abuse Patient Records regulations: The Federal rules restrict any use of the information to criminally investigate or prosecute any alcohol or drug abuse patient.[facility] the event this information is protected by the Federal Confidentiality of Alcohol and Drug Abuse Patient Records regulations: The Federal rules restrict any use of the information to criminally investigate or prosecute any alcohol or drug abuse patient.[facility] the event this information is protected by the Federal Confidentiality of Alcohol and Drug Abuse Patient Records regulations: The Federal rules restrict any use of the information to criminally investigate or prosecute any alcohol or drug abuse patient.[facility] the event this information is protected by the Federal Confidentiality of Alcohol and Drug Abuse Patient Records regulations: The Federal rules restrict any use of the information to criminally investigate or prosecute any alcohol or drug abuse patient.[facility] the event this information is protected by the Federal Confidentiality of Alcohol and Drug Abuse Patient Records regulations: The Federal rules restrict any use of the information to criminally investigate or prosecute any alcohol or drug abuse patient.[facility] the event this information is protected by the Federal Confidentiality of Alcohol and Drug Abuse Patient Records regulations: The Federal rules restrict any use of the information to criminally investigate or prosecute any alcohol or drug abuse patient.[facility] the event this information is protected by the Federal Confidentiality of Alcohol and Drug Abuse Patient Records regulations: The Federal rules restrict any use of the information to criminally investigate or prosecute any alcohol or drug abuse patient.[facility] the event this information is protected by the Federal Confidentiality of Alcohol and Drug Abuse Patient Records regulations: The Federal rules restrict any use of the information to criminally investigate or prosecute any alcohol or drug abuse patient.[facility] the event this information is protected by the Federal Confidentiality of Alcohol and Drug Abuse Patient Records regulations: The Federal rules restrict any use of the information to criminally investigate or prosecute any alcohol or drug abuse patient.[facility] the event this information is protected by the Federal Confidentiality of Alcohol and Drug Abuse Patient Records regulations: The Federal rules restrict any use of the information to criminally investigate or prosecute any alcohol or drug abuse patient.[facility] the event this information is protected by the Federal Confidentiality of Alcohol and Drug Abuse Patient Records regulations: The Federal rules restrict any use of the information to criminally investigate or prosecute any alcohol or drug abuse patient.[facility] the event this information is protected by the Federal Confidentiality of Alcohol and Drug Abuse Patient Records regulations: The Federal rules restrict any use of the information to criminally investigate or prosecute any alcohol or drug abuse patient.[facility] the event this information is protected by the Federal Confidentiality of Alcohol and Drug Abuse Patient Records regulations: The Federal rules restrict any use of the information to criminally investigate or prosecute any alcohol or drug abuse patient.[facility] the event this information is protected by the Federal Confidentiality of Alcohol and Drug Abuse Patient Records regulations: The Federal rules restrict any use of the information to criminally investigate or prosecute any alcohol or drug abuse patient.[facility] the event this information is protected by the Federal Confidentiality of Alcohol and Drug Abuse Patient Records regulations: The Federal rules restrict any use of the information to criminally investigate or prosecute any alcohol or drug abuse patient.[facility] the event this information is protected by the Federal Confidentiality of Alcohol and Drug Abuse Patient Records regulations: The Federal rules restrict any use of the information to criminally investigate or prosecute any alcohol or drug abuse patient.[facility] the event this information is protected by the Federal Confidentiality of Alcohol and Drug Abuse Patient Records regulations: The Federal rules restrict any use of the information to criminally investigate or prosecute any alcohol or drug abuse patient.[facility] the event this information is protected by the Federal Confidentiality of Alcohol and Drug Abuse Patient Records regulations: The Federal rules restrict any use of the information to criminally investigate or prosecute any alcohol or drug abuse patient.[facility] the event this information is protected by the Federal Confidentiality of Alcohol and Drug Abuse Patient Records regulations: The Federal rules restrict any use of the information to criminally investigate or prosecute any alcohol or drug abuse patient.[facility] the event this information is protected by the Federal Confidentiality of Alcohol and Drug Abuse Patient Records regulations: The Federal rules restrict any use of the information to criminally investigate or prosecute any alcohol or drug abuse patient.[facility] the event this information is protected by the Federal Confidentiality of Alcohol and Drug Abuse Patient Records regulations: The Federal rules restrict any use of the information to criminally investigate or prosecute any alcohol or drug abuse patient.[facility] the event this information is protected by the Federal Confidentiality of Alcohol and Drug Abuse Patient Records regulations: The Federal rules restrict any use of the information to criminally investigate or prosecute any alcohol or drug abuse patient.[facility] Teams (unrecognized sec tion and content) Handle Attacher Relationship Specialty Start Date End Date Collins Savage Jr., DO PCP - General Family Medicine 12/21/13 Handle Attacher Relationship Specialty Start Date End Date Collins Savage Jr., DO PCP - General Family Medicine 12/21/13 Handle Attacher Relationship Specialty Start Date End Date Collins Savage Jr., DO PCP - General Family Medicine 12/21/13 Handle Attacher Relationship Specialty Start Date End Date Collins Savage Jr., DO PCP - General Family Medicine 12/21/13 Handle Attacher Relationship Specialty Start Date End Date Collins Savage Jr., DO PCP - General Family Medicine 12/21/13 Handle Attacher Relationship Specialty Start Date End Date Collins Savage Jr., DO PCP - General Family Medicine 12/21/13 Handle Attacher Relationship Specialty Start Date End Date Collins Andrews MD [address] [place] [id number] PCP - General Internal Medicine 05/06/23 Handle Attacher Relationship Specialty Start Date End Date Collins Andrews MD [address] [place] [address] [id number] PCP - General Internal Medicine 05/06/23 Handle Attacher Relationship Specialty Start Date End Date Collins Andrews MD [address] [place] [address] [id number] PCP - General Internal Medicine 05/06/23 Handle Attacher Relationship Specialty Start Date End Date Collins Andrews MD [address] [place] [address] [id number] PCP - General Internal Medicine 05/06/23 Handle Attacher Relationship Specialty Start Date End Date Collins Andrews MD [address] [place] [address] [id number] PCP - General Internal Medicine 05/06/23 Handle Attacher Relationship Specialty Start Date End Date Collins Andrews MD [address] [place] [address] [id number] PCP - General Internal Medicine 05/06/23 Handle Attacher Relationship Specialty Start Date End Date Collins Andrews MD [address] [place] [address] [id number] PCP - General Internal Medicine 05/06/23 Handle Attacher Relationship Specialty Start Date End Date Collins Andrews MD [address] [place] [address] [id number] PCP - General Internal Medicine 05/06/23 Handle Attacher Relationship Specialty Start Date End Date Collins Andrews MD [address] [place] [address] [id number] PCP - General Internal Medicine 05/06/23 Handle Attacher Relationship Specialty Start Date End Date Collins Andrews MD [address] [place] [address] [id number] PCP - General Internal Medicine 05/06/23 Handle Attacher Relationship Specialty Start Date End Date Collins Andrews MD [address] [place] [address] [id number] PCP - General Internal Medicine 05/06/23 Handle Attacher Relationship Specialty Start Date End Date Collins Andrews MD [address] [place] [address] [id number] PCP - General Internal Medicine 05/06/23 Handle Attacher Relationship Specialty Start Date End Date Collins Andrews MD [address] [place] [address] [id number] PCP - General Internal Medicine 05/06/23 Handle Attacher Relationship Specialty Start Date End Date Collins Andrews MD [address] [place] [address] [id number] PCP - General Internal Medicine 05/06/23 Handle Attacher Relationship Specialty Start Date End Date Collins Andrews MD [address] [place] [id number] PCP - General 02/13/21 Handle Attacher Relationship Specialty Start Date End Date Collins Andrews MD PCP - General Internal Medicine 05/06/23 Handle Attacher Relationship Specialty Start Date End Date Collins Andrews MD PCP - General Internal Medicine 05/06/23 Handle Attacher Relationship Specialty Start Date End Date Collins [...] MYOCARDIAL [place] [address] [place] [address] [facility] [address] [place] [address] Referral ID Status Reason Start Date Expiration Date V isits Requested Visits Authorized [id number] Closed Auto-Generate d Referral 05/07/2023 06/05/2024 1 [...] BE BASED ON THE PRIMARY CLINICAL RECORDS. [employer] [facility]. provides no warranty or guarantee of the accuracy or completeness of information in this document.
== END 2024-05-10 11:27 | disposition home or self-care (01) ==
LOC: EC 11:26
PROVIDERS: Visit Provider Podiatrist Foot & Ankle Surgery
DX: M25.571 Pain in right ankle and joints of right foot (principal); M79.671 Pain in right foot; Z98.890 Other specified postprocedural states
CPT/HCPCS: 73610; 73630

== ENCOUNTER 2024-05-10 15:13 | Outpatient (REF) | payer MEDICARE, MEDICAID, SELFPAY ==
--- OUTSIDE RECORDS SUMMARY | 2024-05-10 15:40 | XMS_ITS | CCD ---
Author Organization [facility] CliniSymn Care Team Providers Care Chainstitch Felled Seam Operator Name Role Phone Collins Savage Unavailable Unavailable [...] Fang Santos Attending U navailable Razzante, Dr. aFng Santos Referring U navailable Debs, Dr. Collins [...] Unava ilable DEBSCOLLINS E Primary Care Unavailable GYOAL, DANA Referring [...] CLOMACARIO CARROLLR Referring Unava ilable CLOUGHERTY, MACARIO VENCESR Attending [...] sources) Codeine Drug Allergy 8 GI Upset [facility] 1057 Work Phone: (9 sources) Meperidine Drug Allergy [facility] 1057 Work Phone: (20 sources) Meperidine; Translations: [MEPERIDINE (PF)] Drug Allergy 8 Other: See Comments [facility] (20 sources) Morphine; Translations: [MORPHINE] Drug Allergy 1 Itching [facility] (13 sources) Amoxicillin / Clavulanate; Translations: [AMOXICILLIN-PO T CLAVULANATE] Drug Allergy 3 GI Upset [facility] (13 sources) Doxycycline; Translations: [DOXYCYCLINE] Drug Allergy 3 GI [facility] (2 sources) Codeine; Translations: [CODEINE] Drug Allergy 8 [facility] (1 source) ALLERGIES NOT ON FILE; Translations: [ALLERGIES NOT ON FILE] Propensity to adverse reactions (disorder) [facility] Medications Current Medications Medication Drug Class(es) [...] Start: 04-24-2014 HYDROCODONE-ACETA MINOPHEN 7.5-300 mg tab [id number] actuat albuterol 0.09 mg/actuat metered dose inhaler (20 sources) beta2-Adrenergic Agonist Start: 09-13-2023 take 1-2 puff(s) by mouth every four hours as needed albuterol HFA (PROVENTIL HFA, VENTOLIN HFA) 90 mcg/actuation inhaler inhale 1 to 2 puffs by mouth every 4 hours as needed 0 09/13/2023 Active Start: 02-22-2015 take 2 puff(s) by mo [facility] four times daily as needed Ventolin HFA [...] on above: Take 1 capsule by mo [facility] three times daily. cholecalciferol 0.025 mg oral [...] on above: Take 2,[address] [facility] twice daily. cyclobenzaprine hydrochloride 10 mg [...] daily with meals. 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; Translations: [retirement (current) use of 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 drugs] Onset: 03-22-2023 Episodic Other aftercare (2 sources) business risk analyst (current) use of insulin; Translations: [business risk analyst (current) use of insulin] Onset: 03-17-2023 Episodic Other aftercare (1 source) Other retirement (current) drug therapy; Translations: [Other retirement (current) drug therapy] Onset: 03-17-2023 Episodic Other aftercare (1 source) Long-term current use of 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 medication; Translations: [retirement (current) use of 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 drugs] 03-29-2023 [...] BCP dye [Mass/Vol] 4.7 g/dL Normal 3.4-5.0 [facility] Comment on above: Performed By: #### 2 4323-8 #### ADAM CALDERON ([id number]) [facility] ([facility]) [address] [place] [address] ALP [Catalytic activity/Vol] 59 U/L Normal 33-136 [facility] Comment on above: Performed By: #### 2 4323-8 #### ADAM CALDERON ([id number]) [facility] ([facility]) [address] [place] [address] ALT With P-5'-P [Catalytic activity/Vol] 23 U/L Normal 7-45 [facility] Comment on above: Result Comment: Shaista ents treated with Sulfasalazine may generate falsely decreased results for ALT. Performed By: #### 2 4323-8 #### ADAM CALDERON ([id number]) [facility] ([facility]) [address] [place] [address] Anion gap [Moles/Vol] 17 mmol/L Normal 10-20 [facility] Comment on above: Performed By: #### 2 4323-8 #### ADAM CALDERON ([id number]) [facility] ([facility]) [address] [place] [address] AST With P-5'-P [Catalytic activity/Vol] 16 U/L Normal 9-39 [facility] Comment on above: Performed By: #### 2 4323-8 #### ADAM CALDERON ([id number]) [facility] ([facility]) [address] [place] [address] Bilirubin [Mass/Vol] 0.3 mg/dL Normal 0.0-1.2 [facility] Comment on above: Performed By: #### 2 4323-8 #### ADAM CALDERON ([id number]) [facility] ([facility]) [address] [place] [address] Calcium [Mass/Vol] 10.8 mg/dL High 8.6-10.3 [facility] Comment on above: Performed By: #### 2 4323-8 #### ADAM CALDERON ([id number]) [facility] ([facility]) [address] [place] [address] Chloride [Moles/Vol] 101 mmol/L Normal 98-107 [facility] Comment on above: Performed By: #### 2 4323-8 #### ADAM CALDERON ([id number]) [facility] ([facility]) [address] [place] [address] CO2 [Moles/Vol] 25 mmol/L Normal 21-32 [facility] Comment on above: Performed By: #### 2 4323-8 #### ADAM CALDERON ([id number]) [facility] ([facility]) [address] [place] [address] Creatinine [Mass/Vol] 1.09 mg/dL High 0.50-1.05 [facility] Comment on above: Performed By: #### 2 4323-8 #### ADAM CALDERON ([id number]) [facility] ([facility]) [address] [place] [address] Glomerular filtration rate/1.73 sq M.predicted 57 mL/min/1.73m*2 Low >60 [facility] Comment on above: Result Comment: Calc ulations of estimated GFR are performed using the 2020 CKD-EPI Study Refit equation without the race variable for the IDMS-Traceable creatinine methods. https://jasn.asnjournals.org/content/early/ASN.5078095 988 Performed By: #### 2 4323-8 #### ADAM CALDERON ([id number]) [facility] ([facility]) [address] [place] [address] Glucose [Mass/Vol] 178 mg/dL High 74-99 [facility] Comment on above: Performed By: #### 2 4323-8 #### ADAM CALDERON ([id number]) [facility]) [address] [place] [address] Potassium [Moles/Vol] 4.7 mmol/L Normal 3.5-5.3 [facility] Comment on above: Performed By: #### 2 4323-8 #### ADAM CALDERON ([id number]) [facility] ([facility]) [address] [place] [address] Protein [Mass/Vol] 7.4 g/dL Normal 6.4-8.2 [facility] Comment on above: Performed By: #### 2 4323-8 #### ADAM CALDERON ([id number]) [facility]) [address] [place] [address] Sodium [Moles/Vol] 138 mmol/L Normal 136-145 [facility] Comment on above: Performed By: #### 2 4323-8 #### ADAM CALDERON ([id number]) [facility] ([facility]) [address] [place] [address] Urea nitrogen [Mass/Vol] 21 mg/dL Normal 6-23 [facility] Comment on above: Performed By: #### 2 4323-8 #### ADAM CALDERON ([id number]) [facility] ([facility]) [address] [place] [address] HbA1c (Bld) [Mass fraction]o n 03-13-2024 Average glucose Estimated from glycated hemoglobin (Bld) [Mass/Vol] 148 mg/dL Normal Not Established [facility] Comment on above: Order Comment: Diagn osis of Diabetes-Adults Non-Diabetic: < or = 5.6% Increased risk for developing diabetes: 5.7-6.4% Diagnostic of diabetes: > or = 6.5% Monitoring of Diabetes Age (y)....................... Therapeutic Goal (%) Adults: >18.........................<7.0 Pediatrics: 13-18...................<7.5 Pediatrics: 7-12....................<8.0 Pediatrics: 0-6..................... 7.5-8.5 [place] [employer]. Diabetes Care 33(S1), Nov 2009 Performed By: #### 4 548-4 #### ADAM CALDERON ([id number]) [facility] ([facility]) [address] [place] [address] Hemoglobin A1c/Hemoglobin.to milan 03-13-2024 HbA1c (Bld) [Mass fraction] 6.8 % High see below [facility] Comment on above: Order Comment: Diagn osis of Diabetes-Adults Non-Diabetic: < or = 5.6% Increased risk for developing diabetes: 5.7-6.4% Diagnostic of diabetes: > or = 6.5% Monitoring of Diabetes Age (y)....................... Therapeutic Goal (%) Adults: >18.........................<7.0 Pediatrics: 13-18...................<7.5 Pediatrics: 7-12....................<8.0 Pediatrics: 0-6..................... 7.5-8.5 [place] [employer]. Diabetes Care 33(S1), Nov 2009 Performed By: #### 4 548-4 #### ADAM CALDERON ([id number]) [facility] ([facility]) [address] [place] [address] Thyrotropinon 03-13-2024 TSH Qn 0.79 m[IU]/L Normal 0.44-3.98 [facility] Comment on above: Order Comment: TSH t esting is performed using different testing methodology at [facility] than at other [facility]. Direct result comparisons should only be made within the same method. Performed By: #### 3 016-3 #### ADAM CALDERON ([id number]) [facility] ([facility]) [address] [place] [address] Edwin 03-09-2024 L Specimen: [id number] Received: 03/09/24 Status: [facility] Num: [id number] Spec Type: Surgical Subm Dr: Zuhair Grubbs,DPM, MS Tissues: A Bone Biopsy/Currettings (BX RT TIBIA BONE) B Bone Biopsy/Currettings (RT TALUS BONE BX) C Bone Biopsy/Currettings (BX RT CALCANEOUS BONE) Procedures: HE/6, Gross/Micro L5/3, Decalcification/3 Age/ Patient Sex Location Account Attending Physician Darshan LABELL [id number] Zuhair Grubbs DPM, MS SPEC NUM: [id number] RECD: 03/09/24 STATUS: KADIE LEESaulo NUM: [id number] TATIANNA: 03/09/[address] [facility] [address]: Zuhair Grubbs DPM, MS ENTERED: 03/09/[address] [facility] [address]: Orestes,Lab SPEC TYPE: Surgical DEPT: ATA [...] cm, entirely submitted in A1 following Specimen: [id number] Received: 03/09/24 Status: KADIE Kiley Num: [id number] Spec Type: Surgical Subm Dr: Zuhair Grubbs DPM, MS Tissues: A Bone Biopsy/Currettings (BX RT TIBIA BONE) B Bone Biopsy/Currettings (RT TALUS BONE BX) C Bone Biopsy/Currettings (BX RT CALCANEOUS BONE) Procedures: HE/6, Gross/Micro L5/3, Decalcification/3 Patient: Darshan,Marie [id number] (Continued) Specimen: [id number] Received: 03/09/24 (Continued) Gross Description (Continued) Signed (signature on file) Darci Castro MD 03/13/24 1653 Specimen: [id number] Received: 03/09/24 Status: KADIE Cao Num: [id number] Spec Type: Surgical Subm Dr: Zuhair Grubbs,FLASH, MS Tissues: A Bone Biopsy/Currettings (BX RT TIBIA BONE) B Bone Biopsy/Currettings (RT TALUS BONE BX) C Bone Biopsy/Currettings (BX RT CALCANEOUS BONE) Procedures: HE/6, Gross/Micro L5/3, Decalcification/3 Patient: DarshanMarie [id number] (Continued) Specimen: [id number] Received: 03/09/24 (Continued) Gross Description (Continued) decalcification. [...] joint right ankle and foot CPT Codes 77237t7, 58534j7 Specimen: [id number] Received: 03/09/24 Status: KADIE Cao Num: [id number] Spec Type: Surgical Subm Dr: Zuhair Grubbs,FLASH, MS Tissues: A Bone Biopsy/Currettings (BX RT TIBIA BONE) B Bone Biopsy/Currettings (RT TALUS BONE BX) C Bone Biopsy/Currettings (BX RT CALCANEOUS BONE) Procedures: HE/6, Gross/Micro L5/3, Decalcification/3 Patient: Darshan,Marie [id number] (Continued) Signed (signature on file) Darci Castro MD 03/13/24 1653 Normal [facility] Comprehensive metabolic 2000 panelon 11-26-2023 Albumin BCP dye [Mass/Vol] 4.6 g/dL Normal 3.4-5.0 [facility] Comment on above: Performed By: #### 2 4323-8 #### ADAM CALDERON ([id number]) [facility] ([facility]) [address] [place] [address] ALP [Catalytic activity/Vol] 52 U/L Normal 33-136 [facility] Comment on above: Performed By: #### 2 4323-8 #### ADAM CALDERON ([id number]) [facility] ([facility]) [address] [place] [address] ALT With P-5'-P [Catalytic activity/Vol] 17 U/L Normal 7-45 [facility] Comment on above: Result Comment: Shaista ents treated with Sulfasalazine may generate falsely decreased results for ALT. Performed By: #### 2 4323-8 #### ADAM CALDERON ([id number]) [facility] ([facility]) [address] [place] [address] Anion gap [Moles/Vol] 14 mmol/L Normal 10-20 [facility] Comment on above: Performed By: #### 2 432-8 #### ADAM CALDERON ([id number]) [facility] ([facility]) [address] [place] [address] AST With P-5'-P [Catalytic activity/Vol] 16 U/L Normal 9-39 [facility] Comment on above: Performed By: #### 2 4323-8 #### ADAM CALDERON ([id number]) [facility] ([facility]) [address] [place] [address] Bilirubin [Mass/Vol] 0.6 mg/dL Normal 0.0-1.2 [facility] Comment on above: Performed By: #### 2 4323-8 #### ADAM CALDERON ([id number]) [facility] ([facility]) [address] [place] [address] Calcium [Mass/Vol] 10.0 mg/dL Normal 8.6-10.3 [facility] Comment on above: Performed By: #### 2 4323-8 #### ADAM CALDERON ([id number]) [facility] ([facility]) [address] [place] [address] Chloride [Moles/Vol] 99 mmol/L Normal 98-107 [facility] Comment on above: Performed By: #### 2 4323-8 #### ADAM CALDERON ([id number]) [facility] ([facility]) [address] [place] [address] CO2 [Moles/Vol] 28 mmol/L Normal 21-32 [facility] Comment on above: Performed By: #### 2 4323-8 #### ADAM CALDERON ([id number]) [facility]) [address] [place] [address] Creatinine [Mass/Vol] 1.07 mg/dL High 0.50-1.05 [facility] Comment on above: Performed By: #### 2 4323-8 #### ADAM CALDERON ([id number]) [facility]) [address] [place] [address] Glomerular filtration rate/1.73 sq M.predicted 59 mL/min/1.73m*2 Low >60 [facility] Comment on above: Result Comment: Calc ulations of estimated GFR are performed using the 2020 CKD-EPI Study Refit equation without the race variable for the IDMS-Traceable creatinine methods. https://jasn.asnjournals.org/content/early/ASN.9275280 988 Performed By: #### 2 4323-8 #### ADAM CALDERON ([id number]) [facility] ([facility]) [address] [place] [address] Glucose [Mass/Vol] 92 mg/dL Normal 74-99 [facility] Comment on above: Performed By: #### 2 4323-8 #### ADAM CALDERON ([id number]) [facility] [address] [place] [address] Potassium [Moles/Vol] 4.2 mmol/L Normal 3.5-5.3 [facility] Comment on above: Performed By: #### 2 4323-8 #### ADAM CALDERON ([id number]) [facility]) [address] [place] [address] Protein [Mass/Vol] 7.1 g/dL Normal 6.4-8.2 [facility] Comment on above: Performed By: #### 2 4323-8 #### ADAM CALDERON ([id number]) [facility]) [address] [place] [address] Sodium [Moles/Vol] 137 mmol/L Normal 136-145 [facility] Comment on above: Performed By: #### 2 4323-8 #### ADAM CALDERON ([id number]) [facility] ([facility]) [address] [place] [address] Urea nitrogen [Mass/Vol] 20 mg/dL Normal 6-23 [facility] Comment on above: Performed By: #### 2 4323-8 #### ADAM CALDERON ([id number]) [facility] ([facility]) [address] [place] [address] HbA1c (Bld) [Mass fraction]o n 11-26-2023 Average glucose Estimated from glycated hemoglobin (Bld) [Mass/Vol] 163 mg/dL Normal Not Established [facility] Comment on above: Order Comment: Diagn osis of Diabetes-Adults Non-Diabetic: < or = 5.6% Increased risk for developing diabetes: 5.7-6.4% Diagnostic of diabetes: > or = 6.5% Monitoring of Diabetes Age (y)....................... Therapeutic Goal (%) Adults: >18.........................<7.0 Pediatrics: 13-18...................<7.5 Pediatrics: 7-12....................<8.0 Pediatrics: 0-6..................... 7.5-8.5 [employer] [employer]. Diabetes Care 33(S1), Nov 2009 Performed By: #### 4 548-4 #### ADAM CALDERON ([id number]) [facility] ([facility]) [address] [place] [address] Hemoglobin A1c/Hemoglobin.to milan 11-26-2023 HbA1c (Bld) [Mass fraction] 7.3 % High see below [facility] Comment on above: Order Comment: Diagn osis of Diabetes-Adults Non-Diabetic: < or = 5.6% Increased risk for developing diabetes: 5.7-6.4% Diagnostic of diabetes: > or = 6.5% Monitoring of Diabetes Age (y)....................... Therapeutic Goal (%) Adults: >18.........................<7.0 Pediatrics: 13-18...................<7.5 Pediatrics: 7-12....................<8.0 Pediatrics: 0-6..................... 7.5-8.5 [employer] [employer]. Diabetes Care 33(S1), Nov 2009 Performed By: #### 4 548-4 #### ADAM CALDERON ([id number]) [facility] ([facility]) [address] [place] [address] Lipid 1996 panelon 4 Cholesterol [Mass/Vol] 185 mg/dL Normal 0-199 [facility] Comment on above: Result Comment: Age [...] By: #### 2 4331-1 #### ADAM CALDERON ([id number]) [facility] ([facility]) [address] [place] [address] Cholesterol in HDL [Mass/Vol] 34.5 mg/dL Normal [facility] Comment on above: Result Comment: Age Very Low Low Normal High 0-19 Y < 35 < 40 40-45 ---- 20-24 Y ---- < 40 >45 ---- >24 Y ---- < 40 40-60 >60 Performed By: #### 2 4331-1 #### ADAM CALDERON ([id number]) [facility]) [address] [place] [address] Cholesterol in LDL [Mass/Vol] 95 mg/dL Normal <=99 [facility] Comment on above: Result Comment: Near Borderline AGE Desirable Optimal High High Very High 0-19 Y 0 - 109 --- 110-129 >/= 130 ---- 20-24 Y 0 - 119 --- 120-159 >/= 160 ---- >24 Y 0 - 99 100-129 130-159 160-189 >/=190 Performed By: #### 2 4331-1 #### ADAM CALDERON ([id number]) [facility] ([facility]) [address] [place] [address] Cholesterol in VLDL [Mass/Vol] 55 mg/dL High 0-40 [facility] Comment on above: Performed By: #### 2 4331-1 #### ADAM CALDERON ([id number]) [facility] ([facility]) [address] [place] [address] CHOLESTEROL/HDL RATIO 5.4 Normal [facility] Comment on above: Result Comment: Ref Values Desirable < 3.4 High Risk > 5.0 Performed By: #### 2 4331-1 #### ADAM CALDERON ([id number]) [facility]) [address] [place] [address] NON HDL CHOLESTEROL 151 mg/dL High 0-149 [facility] Comment on above: Result Comment: Age Desirable Borderline High High Very High 0-19 Y 0 - 119 120 - 144 >/= 145 >/= 160 20-24 Y 0 - 149 150 - 189 >/= 190 ---- >24 Y 30 mg/dL above LDL Cholesterol goal Performed By: #### 2 4331-1 #### ADAM CALDERON ([id number]) [facility] [address] [place] [address] Triglyceride [Mass/Vol] 277 mg/dL High 0-149 [facility] Comment on above: Result Comment: Age [...] By: #### 2 4331-1 #### ADAM CALDERON ([id number]) [facility] ([facility]) [address] [place] [address] Thyrotropinon 11-26-2023 TSH Qn 0.72 m[IU]/L Normal 0.44-3.98 [facility] Comment on above: Order Comment: TSH t esting is performed using different testing methodology at [facility] than at other [facility]. Direct result comparisons should only be made within the same method. Performed By: #### 3 016-3 #### ADAM CALDERON ([id number]) [facility] ([facility]) [address] [place] [address] Thyroxine.freeon 11-26-2023 Free T4 [Mass/Vol] 1.24 ng/dL High 0.61-1.12 [facility] Comment on above: Order Comment: Thyro xine Free testing is performed using different testing methodology at [facility] than at other [facility]. Direct result comparisons should only [...] By: #### 3 024-7 #### ADAM CALDERON ([id number]) [facility] ([facility]) [address] [place] [address] Shanon 11-25-2023 CN Office Visit (ORTHLD ) DARSHANMARIE TRINIDAD ([id number]) 1960 F Date Time Provider Department 11/25/23 [...] No di (more content not included)... 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]) Surgeons: Macario Santos DPM Responsible Provider: Luc [...] November 10, 2023 TIME: 2:34 PM CSN: [id number] [facility] ANES PRE-OPon 11-10-2023 ANES PRE-OP HNO ID: [id number] Author: Serafin Partida MD Service: Anesthesiology Author Type: Anesthesiologist Type: Anesthesia Preprocedure Evaluation Filed: 11/10/2023 12:54 PM Note Text: ANESTHESIOLOGY DAY OF SURGERY NOTE : 1960 Procedure Information Date/Time: 11/10/23 1325 Procedures: REMOVAL HARDWARE FOOT (Right: Foot) - POPLITEAL BLOCK Adrian serrano aware of case - kf have available dax Asparna extraction set 1 and 2 ARTHRODESIS MIDTARSAL [...] this. Previously had fentanyl without problems. Beta Vtia Administration of chronic beta vita medication planned. Monitoring Plan Monitoring plan: standard ASA. Post Procedure Analgesic Plan Postoperative analgesic plan: multimodal analgesia and parenteral or oral opioids (block done in holding area by Dr. stanley). Informed Consent Anesthetic risks, benefits, alternatives, personnel and consent discussed: yes. Patient / Responsible Alliance Party agrees to proceed: yes Patient / [...] puffs by (more content not included)... Normal [facility] BRIEF OP NOTon 11-10-2023 BRIEF OP NOT HNO ID: [id number] Author: Macario Santos DPM Service: Podiatry Author Type: Physician Type: Brief Op Note Filed: 11/10/2023 2:08 PM Note Text: PODIATRIC SURGERY BRIEF OPERATIVE NOTE LOG ID: [id number] Surgery/Procedure Date: 11/10/2023 Incision/Procedure Start Time: 1:25 PM Incision Close/Procedure End Time: Surgeon(s)/Proceduralis t(s) and Rn Enterostomal(s): Surgeon(s) and Role: * Macario Santos DPM - Primary * Alek Mclaughlin DPM - Resident - Assisting Physician Rn Enterostomal: Rhoda Weston PA-C Procedure(s): Right removal of [...] 10, 2023 TIME: 2:06 PM PAGER/CONTACT #: [phone] (Pager/Cell) Normal [facility] Bacteria Spec Anaerobe Culto n 11-10-2023 Bacteria identified Anaer cx Nom (Unsp spec) Negative Normal [facility] Comment on above: Performed By: #### 6 35-3, 28428-0, 11645-2 ####[facility] [id number] [place] [address] [place] Bacteria Tiss Culton 023 Bacteria identified Cx Nom (Tiss) CULTURE, TISSUE: No growth GRAM STAIN: No organisms seen No Polymorphonuclear Leukocytes Normal [facility] Comment on above: Performed By: #### 6 35-3, 73386-8, 15652-9 ####[facility] LABCLIA [id number] [place] [address] [place] Microorganism Spec Culton Microorganism identified Cx Nom (Unsp spec) CULTURE, FUNGAL: No Fungus isolated after 28 days FUNGAL SMEAR: No fungus seen [facility] Comment on above: Performed By: #### 6 35-3, 10234-5, 01677-9 ####[facility] LABCLIA [id number] [address] [address] [place] Microorganism identified Cx Nom (Unsp spec) CULTURE, AFB: No Acid Fast Bacilli isolated after 42 days AFB STAIN: No acid fast bacilli seen by flurochrome stain [facility] Comment on above: Performed By: #### 6 35-3, 75625-1, 07202-4 ####[facility] LABCLIA [id number] [address] [address] [place] NURSING PROGon 11-10-2023 NURSING PROG HNO ID: [id number] Author: Blanca Tomas RN Service: ? Author [...] (RECOMMENDATION): None Electronically Signed By: Blanca Tomas [facility] NURSING PROG HNO ID: [id number] Author: Brigette Stallworth RN Service: Pain Management Author Type: Registered Nurse Type: Nursing Progress Note Filed: 11/10/2023 12:39 PM Note Text: RIGHT popliteal single shot nerve block and RIGHT adductor canal single shot nerve block Dr. Stanley and Dr. Rodrigues Patient verbalized understanding of nerve block procedure. Patient tolerated procedure very well; report given to primary nurse. [facility] NURSING PROG HNO ID: [id number] Author: Jenni Zarco RN Service: ? Author [...] (RECOMMENDATION): None Electronically Signed By: Jenni Zarco [facility] OPERATIVE NOon 11-10-2023 OPERATIVE NO HNO ID: [id number] Author: Macario Santos DPM Service: Podiatry Author Type: Physician Type: Operative Report Filed: 11/12/2023 8:42 AM Note Text: SURGERY OPERATIVE NOTE LOG ID: [id number] Surgery/Procedure Date: 11/10/2023 Incision/Procedure Start Time: 1:25 PM Incision Close/Procedure End Time: 2:17 PM Surgeon(s)/Proceduralis t(s) and Rn Enterostomal(s): Surgeon(s) and Role: * Macario Santos DPM - Primary * Alek Mclaughlin DPM - Resident - Assisting Physician Rn Enterostomal: Rhoda Weston PA-C PRE-OP/PRE-PROCEDURE DIAGNOSIS: Right foot [...] impregnated cement was then prepared per the resident care spec's recommended technique and then placed into the [...] 12, 2023 TIME: 8:37 AM PAGER/CONTACT #: [phone] (Pager/Cell) [facility] SURGICAL PATHOLOGYon 023 CASE REPORT [facility] Comment on above: Order Comment: Speci men Type: SPECIMEN FROM BONEOrdering Facility: [facility] Address: [address] [place] [address] Result Comment: Surg ical Pathology Report Case: [id number] Authorizing Provider: Macario Santos Collected: 11/10/2023 01:43 PM FLASH Zuniga Ordering Location: [facility] Received: 11/10/2023 02:35 PM Operating Room Pathologist: Laina Álvarez MD Specimen: BONE RESECTION, right non union talus Performed By: #### S ####[facility] LABCLIA [id number] [address] STATES OF [facility] LABORATORYCLIA [id number] [place] [address] [place] CLINICAL HISTORY POPLITEAL BLOCK Normal [facility] Comment on above: Order Comment: Speci men Type: SPECIMEN FROM BONEOrdering Facility: [facility] Address: [address] [place] [address] Result Comment: Pre-op diagnosis: Retained orthopedic hardware [Z96.9] Nonunion of foot fracture, 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 B one and soft tissue, right, nonunion talus bone, resection: - Soft tissue with reactive changes, chronic inflammation and foreign body-type giant cell reaction. - Fragments of necrotic bone. Performed By: #### S ####[facility] LABCLIA [id number] [address] LABORATORYCLIA [id number] [address] OF [facility] FINAL PERFORMING LAB Normal [facility] Comment on above: Order Comment: Speci men Type: SPECIMEN FROM BONEOrdering Facility: [facility] Address: [address] [place] [address] Result Comment: Diag nostic interpretation performed at [facility], [address] [id number] CLIA# [id number] [employer] Operator: Sarwat Enamorado M.D. Performed By: #### S ####[facility] LABCLIA [id number] [address] LABORATORYCLIA [id number] [address] OF [facility] GROSS DESCRIPTION Normal [facility] Comment on above: Order Comment: Speci men Type: SPECIMEN FROM BONEOrdering Facility: [facility] Address: [address], [place] [address] Result Comment: A. 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 Totally submitted in 1 cassette following decalcification. MLG November 11, 2023 9:03 AM Gross examination performed at [facility], [address] [place] [address] Performed By: #### S ####[facility] LABCLIA [id number] [address] LABORATORYCLIA [id number] [address] XR FOOT 2V AP/LAT RTon 11-10 [...] IMPRESSION: Please see operative note for details Educational Consultant: PSCB Transcribe Date/Time: Nov 10 2023 3:22P Dictated by : ARLIN CRUZ MD This examination was interpreted and the report reviewed and electronically signed by: ARLIN CRUZ MD on Nov 10 2023 3:24PM EST [id number] [facility] CBC W Auto Differential pane l (Bld)on 11-03-2023 Basophils (Bld) [#/Vol] 0.05 10*3/uL Normal <0.11 [facility] Comment on above: Order Comment: Speci men Type: BLOOD SPECIMENOrdering Facility: [facility] Address: [address] [place] [address] Performed By: #### 5 7021-8 ####[facility] LABCLIA [id number] [place] [address] [place] Basophils/100 WBC (Bld) 0.6 % Normal [facility] Comment on above: Order Comment: Speci men Type: BLOOD SPECIMENOrdering Facility: [facility] Address: [address] [place] [address] Performed By: #### 5 7021-8 ####[facility] LABCLIA [id number] [place] [address] [place] Differential cell count method Nom (Bld) Auto Normal [facility] Comment on above: Order Comment: Speci men Type: BLOOD SPECIMENOrdering Facility: [facility] Address: [address] [place] [address] Performed By: #### 5 7021-8 ####[facility] LABCLIA [id number] [place] [address] [place] Eosinophils (Bld) [#/Vol] 0.41 10*3/uL Normal <0.46 [facility] Comment on above: Order Comment: Speci men Type: BLOOD SPECIMENOrdering Facility: [facility] Address: [address] [place] [address] Performed By: #### 5 7021-8 ####[facility] LABCLIA [id number] [place] [address] [place] Eosinophils/100 WBC (Bld) 4.9 % Normal [facility] Comment on above: Order Comment: Speci men Type: BLOOD SPECIMENOrdering Facility: [facility] Address: [address] [place] [address] Performed By: #### 5 7021-8 ####[facility] LABCLIA [id number] [place] [address] [place] Erythrocyte distribution width (RBC) [Ratio] 12.8 % Normal 11.5-15.0 [facility] Comment on above: Order Comment: Speci men Type: BLOOD SPECIMENOrdering Facility: [facility] Address: [address] [place] [address] Performed By: #### 5 7021-8 ####[facility] LABCLIA [id number] [place] [address] [place] Hematocrit (Bld) [Volume fraction] 40.9 % Normal 36.0-46.0 [facility] Comment on above: Order Comment: Speci men Type: BLOOD SPECIMENOrdering Facility: [facility] Address: [address] [place] [address] Performed By: #### 5 7021-8 ####[facility] LABIA [id number] [place] [address] [place] Hemoglobin (Bld) [Mass/Vol] 12.9 g/dL Normal 11.5-15.5 [facility] Comment on above: Order Comment: Speci men Type: BLOOD SPECIMENOrdering Facility: [facility] Address: [address] [place] [address] Performed By: #### 5 7021-8 ####[facility] LABIA [id number] [place] [address] [place] Immature granulocytes (Bld) [#/Vol] 0.05 10*3/uL Normal <0.10 [facility] Comment on above: Order Comment: Speci men Type: BLOOD SPECIMENOrdering Facility: [facility] Address: [address] [place] [address] Performed By: #### 5 7021-8 ####[facility] LABCLIA [id number] [place] [address] [place] Immature granulocytes/100 WBC (Bld) 0.6 % Normal [facility] Comment on above: Order Comment: Speci men Type: BLOOD SPECIMENOrdering Facility: [facility] Address: [address] [place] [address] Performed By: #### 5 7021-8 ####[facility] LABCLIA [id number] [place] [address] [place] Lymphocytes (Bld) [#/Vol] 2.95 10*3/uL Normal 1.00-4.00 [facility] Comment on above: Order Comment: Speci men Type: BLOOD SPECIMENOrdering Facility: [facility] Address: [address] [place] [address] Performed By: #### 5 7021-8 ####[facility] LABCLIA [id number] [place] [address] [place] Lymphocytes/100 WBC (Bld) 35.2 % Normal [facility] Comment on above: Order Comment: Speci men Type: BLOOD SPECIMENOrdering Facility: [facility] Address: [address] [place] [address] Performed By: #### 5 7021-8 ####[facility] LABIA [id number] [place] [address] [place] MCH (RBC) [Entitic mass] 28.6 pg Normal 26.0-34.0 [facility] Comment on above: Order Comment: Speci men Type: BLOOD SPECIMENOrdering Facility: [facility] Address: [address] [place] [address] Performed By: #### 5 7021-8 ####[facility] LABCLIA [id number] [place] [address] [place] MCHC (RBC) [Mass/Vol] 31.5 g/dL Normal 30.5-36.0 [facility] Comment on above: Order Comment: Speci men Type: BLOOD SPECIMENOrdering Facility: [facility] Address: [address] [place] [address] Performed By: #### 5 7021-8 ####[facility] LABCLIA [id number] [place] [address] [place] MCV (RBC) [Entitic vol] 90.7 fL Normal 80.0-100.0 [facility] Comment on above: Order Comment: Speci men Type: BLOOD SPECIMENOrdering Facility: [facility] Address: [address] [place] [address] Performed By: #### 5 7021-8 ####[facility] LABCLIA [id number] [place] [address] [place] Monocytes (Bld) [#/Vol] 0.63 10*3/uL Normal <0.87 [facility] Comment on above: Order Comment: Speci men Type: BLOOD SPECIMENOrdering Facility: [facility] Address: [address] [place] [address] Performed By: #### 5 7021-8 ####[facility] LABCLIA [id number] [place] [address] [place] Monocytes/100 WBC (Bld) 7.5 % Normal [facility] Comment on above: Order Comment: Speci men Type: BLOOD SPECIMENOrdering Facility: [facility] Address: [address] [place] [address] Performed By: #### 5 7021-8 ####[facility] LABCLIA [id number] [place] [address] [place] Neutrophils (Bld) [#/Vol] 4.30 10*3/uL Normal 1.45-7.50 [facility] Comment on above: Order Comment: Speci men Type: BLOOD SPECIMENOrdering Facility: [facility] Address: [address] [place] [address] Performed By: #### 5 7021-8 ####[facility] LABCLIA [id number] [place] [address] [place] Neutrophils/100 WBC (Bld) 51.2 % Normal [facility] Comment on above: Order Comment: Speci men Type: BLOOD SPECIMENOrdering Facility: [facility] Address: [address] [place] [address] Performed By: #### 5 7021-8 ####[facility] LABCLIA [id number] [place] [address] [place] Nucleated RBC (Bld) [#/Vol] 10*3/uL Normal <0.01 [facility] Comment on above: Order Comment: Speci men Type: BLOOD SPECIMENOrdering Facility: [facility] Address: [address] [place] [address] Performed By: #### 5 7021-8 ####[facility] LABIA [id number] [place] [address] [place] Nucleated RBC/100 WBC (Bld) [Ratio] 0.0 /100 WBC Normal [facility] Comment on above: Order Comment: Speci men Type: BLOOD SPECIMENOrdering Facility: [facility] Address: [address] [place] [address] Performed By: #### 5 7021-8 ####[facility] LABIA [id number] [place] [address] [place] Platelet mean volume (Bld) [Entitic vol] 10.2 fL Normal 9.0-12.7 [facility] Comment on above: Order Comment: Speci men Type: BLOOD SPECIMENOrdering Facility: [facility] Address: [address] [place] [address] Performed By: #### 5 7021-8 ####[facility] LABIA [id number] [place] [address] [place] Platelets (Bld) [#/Vol] 315 10*3/uL Normal 150-400 [facility] Comment on above: Order Comment: Speci men Type: BLOOD SPECIMENOrdering Facility: [facility] Address: [address] [place] [address] Performed By: #### 5 7021-8 ####[facility] LABCLIA [id number] [place] [address] [place] RBC (Bld) [#/Vol] 4.51 10*6/uL Normal 3.90-5.20 [facility] Comment on above: Order Comment: Speci men Type: BLOOD SPECIMENOrdering Facility: [facility] Address: [address] [place] [address] Performed By: #### 5 7021-8 ####[facility] LABCLIA [id number] [address] [address] [place] WBC (Bld) [#/Vol] 8.39 10*3/uL Normal 3.70-11.00 [facility] Comment on above: Order Comment: Speci men Type: BLOOD SPECIMENOrdering Facility: [facility] Address: [address] [place] [address] Performed By: #### 5 7021-8 ####[facility] LABCLIA [id number] [place] [address] [place] Comprehensive metabolic 2000 panelon 11-03-2023 Albumin [Mass/Vol] 4.8 g/dL Normal 3.9-4.9 [facility] Comment on above: Order Comment: Speci men Type: BLOOD SPECIMENOrdering Facility: [facility] Address: [address] [place] [address] Performed By: #### 2 4323-8 ####[facility] LABCLIA [id number] [place] [address] [place] ALP [Catalytic activity/Vol] 73 U/L Normal 34-123 [facility] Comment on above: Order Comment: Speci men Type: BLOOD SPECIMENOrdering Facility: [facility] Address: [address] [place] [address] Performed By: #### 2 4323-8 ####[facility] LABIA [id number] [place] [id number] [place] ALT [Catalytic activity/Vol] 14 U/L Normal 7-38 [facility] Comment on above: Order Comment: Speci men Type: BLOOD SPECIMENOrdering Facility: [facility] Address: [address] [place] [address] Performed By: #### 2 4323-8 ####[facility] LABCLIA [id number] [place] [address] [place] Anion gap [Moles/Vol] 13 mmol/L Normal 9-18 [facility] Comment on above: Order Comment: Speci men Type: BLOOD SPECIMENOrdering Facility: [facility] Address: [address] [place] [address] Performed By: #### 2 4323-8 ####[facility] LABCLIA [id number] [place] [address] [place] AST [Catalytic activity/Vol] 17 U/L Normal 13-35 [facility] Comment on above: Order Comment: Speci men Type: BLOOD SPECIMENOrdering Facility: [facility] Address: [address] [place] [address] Performed By: #### 2 4323-8 ####[facility] LABCLIA [id number] [place] [address] [place] Bilirubin [Mass/Vol] 0.2 mg/dL Normal 0.2-1.3 [facility] Comment on above: Order Comment: Speci men Type: BLOOD SPECIMENOrdering Facility: [facility] Address: [address] [place] [address] Performed By: #### 2 4323-8 ####[facility] LABCLIA [id number] [place] [address] [place] Calcium [Mass/Vol] 10.7 mg/dL High 8.5-10.2 [facility] Comment on above: Order Comment: Speci men Type: BLOOD SPECIMENOrdering Facility: [facility] Address: [address] [place] [address] Performed By: #### 2 4323-8 ####[facility] LABCLIA [id number] [place] [address] [place] Chloride [Moles/Vol] 101 mmol/L Normal 97-105 [facility] Comment on above: Order Comment: Speci men Type: BLOOD SPECIMENOrdering Facility: [facility] Address: [address] [place] [address] Performed By: #### 2 4323-8 ####[facility] LABCLIA [id number] [place] [address] [place] CO2 [Moles/Vol] 28 mmol/L Normal 22-30 [facility] Comment on above: Order Comment: Speci men Type: BLOOD SPECIMENOrdering Facility: [facility] Address: [address] [place] [address] Performed By: #### 2 4323-8 ####[facility] LABIA [id number] [address] [place] Creatinine [Mass/Vol] 0.92 mg/dL Normal 0.58-0.96 [facility] Comment on above: Order Comment: Speci men Type: BLOOD SPECIMENOrdering Facility: [facility] Address: [address] [place] [address] Performed By: #### 2 4323-8 ####[facility] LABIA [id number] [address] [place] Creatinine and Glomerular filtration rate.predicted panel (S/P/Bld) 71 mL/min/1.73m??? Normal >=60 [facility] Comment on above: Order Comment: Speci men Type: BLOOD SPECIMENOrdering Facility: [facility] Address: [address] [place] [address] Result Comment: Luis mated Glomerular Filtration Rate [...] actual GFR. Performed By: #### 2 4323-8 ####[facility] LABCLIA [id number] [place] [address] [place] Glucose [Mass/Vol] 125 mg/dL High 74-99 [facility] Comment on above: Order Comment: Speci men Type: BLOOD SPECIMENOrdering Facility: [facility] Address: [address] [place] [address] Result Comment: The [place] Diabetes Association (ADA) provides guidance for cutoff [...] Standards of Medical Care in Diabetes 2016, [place] [employer]. Diabetes Care. 2016.39(Suppl 1). Performed By: #### 2 4323-8 ####[facility] LABCLIA [id number] [place] [address] [place] Potassium [Moles/Vol] 4.9 mmol/L Normal 3.7-5.1 [facility] Comment on above: Order Comment: Speci men Type: BLOOD SPECIMENOrdering Facility: [facility] Address: [address] [place] [address] Performed By: #### 2 4323-8 ####[facility] LABCLIA [id number] [place] [address] [place] Protein [Mass/Vol] 7.8 g/dL Normal 6.3-8.0 [facility] Comment on above: Order Comment: Speci men Type: BLOOD SPECIMENOrdering Facility: [facility] Address: [address] [place] [address] Performed By: #### 2 4323-8 ####[facility] LABCLIA [id number] [place] [address] [place] Sodium [Moles/Vol] 142 mmol/L Normal 136-144 [facility] Comment on above: Order Comment: Speci men Type: BLOOD SPECIMENOrdering Facility: [facility] Address: [place] [address] Performed By: #### 2 4323-8 ####[facility] LABCLIA [id number] [place] [address] [place] Urea nitrogen [Mass/Vol] 25 mg/dL High 7-21 [facility] Comment on above: Order Comment: Speci men Type: BLOOD SPECIMENOrdering Facility: [facility] Address: [place] [address] Performed By: #### 2 4323-8 ####[facility] LABCLIA [id number] [address] [place] HISTORY PHYSICALon HISTORY PHYSICAL HNO ID: [id number] Author: Wiliam Daniels APRN.TOE STRIPPER Service: ? Author Type: Nurse Practitioner Type: [...] large neck Non-male patient STOP-Bang Score: 2 [id number] Score: Age: <65 Sex: Female CHF history: No Hypertension history: Yes Stroke/TIA/thromboembol ism history: No Diabetes history: Yes [id number] Score: 3 ANESTHESIA FINDINGS: Intubation History: No [...] dyspnea, pratik (more content not included)... Normal [facility] HbA1c (Bld)on 11-03-2023 Average glucose Estimated from glycated hemoglobin (Bld) [Mass/Vol] 126 mg/dL Normal [facility] Comment on above: Order Comment: Shlomo ghosh Type: BLOOD SPECIMENOrdering Facility: [facility] Address: [address] [place] [address] Result Comment: eAG: (Estimated average glucose) is a calculated value from HgbA1c and is technical service representative of the average blood glucose level in the last 2-3 month period. Performed By: #### 5 5454-3 ####[facility] LABCLIA [id number] [facility] [id number] [place] [address] [place] HbA1c (Bld) [Mass fraction] 6.0 % High 4.3-5.6 [facility] Comment on above: Order Comment: Speci men Type: BLOOD SPECIMENOrdering Facility: [facility] Address: [address] [place] [address] Result Comment: [place] Diabetes Association guidelines indicate that patients with HgbA1c in the range 5.7-6.4% are at increased risk for development of diabetes, and intervention by lifestyle modification may be beneficial. HgbA1c greater or equal to 6.5% is considered diagnostic of diabetes. Performed By: #### 5 5454-3 ####[facility] LABCLIA [id number] [facility] [id number] [place], [place] [id number] [place] ANKLE WO IVCON RTon 10-14 CT ANKLE WO IVCON RT * * *Final Report* * * DATE OF EXAM: Oct 14 2023 12:19PM [facility] [place]KLE [place] IVCON RT [...] OF MULTIPLE SCREWS IN THE MIDFOOT DESCRIBED. Educational Consultant: SUBHASH Transcribe Date/Time: Oct 14 2023 12:22P Dictated by : LATRICIA LIN MD This examination was interpreted and the report reviewed and electronically signed by: LATRICIA LIN MD on Oct 14 2023 1:12PM EST [id number] Normal [facility] CNOVon 10-11-2023 CNOV Office Visit (ORTHLD ) MARIE SEXTON ([id number]) 1960 F Date Time Provider Department 10/11/23 [...] OBJECTIVE: Patient (more content not included)... Normal [facility] XR FOOT 3V AP/LAT/OBL BILon 10-11-2023 XR [...] left foot, possibly due to Charcot arthropathy Educational Consultant: SUBHASH Transcribe Date/Time: Oct 14 2023 9:07A Dictated by : REGI WOODS MD This examination was interpreted and the report reviewed and electronically signed by: REGI WOODS MD on Oct 14 2023 9:15AM EST [id number] Normal [facility] CNOVon 09-06-2023 CNOV Office Visit (JAE ) MARIE SEXTON ([id number]) 1960 F Date Time Provider Department 09/06/23 [...] peripheral weakness/ (more content not included)... Normal [facility] XR ANKLE 3V AP/LAT/OBL LTon 09-06-2023 XR [...] concern for Charcot foot. Please clinically correlate. Educational Consultant: SUBHASH Transcribe Date/Time: Sep 09 2023 8:54A Dictated by : AGAPITO PINZON MD This examination was interpreted and the report reviewed and electronically signed by: AGAPITO PINZON MD on Sep 09 2023 9:15AM EST [id number] Normal [facility] XR ANKLE 3V AP/LAT/OBL RTon 09-06-2023 XR [...] concern for Charcot foot. Please clinically correlate. Educational Consultant: SUBHASH Transcribe Date/Time: Sep 09 2023 8:54A Dictated by : AGAPITO PINZON MD This examination was interpreted and the report reviewed and electronically signed by: AGAPITO PINZON MD on Sep 09 2023 9:15AM EST [id number] Normal [facility] CNOVon 08-05-2023 CNOV Office Visit (ORTHLD ) DARSHANMARIE TRINIDAD ([id number]) 1960 F Date Time Provider Department 08/05/23 [...] ROS obtain (more content not included)... Normal [facility] XR ANKLE 3V AP/LAT/OBL RTon 08-05-2023 XR [...] joints visible in the lateral projection only. Educational Consultant: PSCB Transcribe Date/Time: Aug 09 2023 12:30P Dictated by : REGI WOODS MD This examination was interpreted and the report reviewed and electronically signed by: REGI WOODS MD on Aug 09 2023 12:34PM EST [id number] Normal [facility] ALBUMIN, URINE SPOTon 2022 ALBUMIN,URINE <7.0 Normal Not Established [facility] Comment on above: Performed By: #### A LBSP #### [facility] [address] [place] [id number] ALBUMIN/CREAT RATIO SEE COMMENT Normal 0.0 - 30.0 [facility] Comment on above: Result Comment: One or more analytes used in this calculation is outside of the analytical measurement range. Calculation cannot be performed. Performed By: #### A LBSP #### [facility] [address] [place] [address] CREATININE,URINE 147.0 mg/dL Normal 20.0 - 320.0 [facility] Comment on above: Performed By: #### A LBSP #### [facility] [address] [place] [address] CBC AND DIFFERENTIALon 07-27 % AUTOMATED IMMATURE GRAN 0.3 % Normal 0.0 - 0.9 [facility] Comment on above: Result Comment: Coni ture Granulocyte Count (IG) includes promyelocytes, myelocytes and metamyelocytes but does not include bands. Percent differential counts (%) should be interpreted in the context of the absolute cell counts (cells/L). Performed By: #### C BCDF #### [address] [address] Basophils (Bld) [#/Vol] 0.06 10*3/uL Normal 0.00 - 0.10 [facility] Comment on above: Performed By: #### C BCDF #### [address] [address] Basophils/100 WBC (Bld) 0.9 % Normal 0.0 - 2.0 [facility] Comment on above: Performed By: #### C BCDF #### [address] [address] Eosinophils (Bld) [#/Vol] 0.28 10*3/uL Normal 0.00 - 0.70 [facility] Comment on above: Performed By: #### C BCDF #### [address] [address] Eosinophils/100 WBC (Bld) 4.1 % Normal 0.0 - 6.0 [facility] Comment on above: Performed By: #### C BCDF #### [address] [address] Erythrocyte distribution width (RBC) [Ratio] 12.6 % Normal 11.5 - 14.5 [facility] Comment on above: Performed By: #### C BCDF #### [address] [address] Hematocrit (Bld) [Volume fraction] 40.3 % Normal 36.0 - 46.0 [facility] Comment on above: Performed By: #### C BCDF #### [address] [address] Hemoglobin (Bld) [Mass/Vol] 13.0 g/dL Normal 12.0 - 16.0 [facility] Comment on above: Performed By: #### C BCDF #### [address] [address] Lymphocytes (Bld) [#/Vol] 2.95 10*3/uL Normal 1.20 - 4.80 [facility] Comment on above: Performed By: #### C BCDF #### [address] [place] [address] Lymphocytes/100 WBC (Bld) 42.8 % Normal 13.0 - 44.0 [facility] Comment on above: Performed By: #### C BCDF #### [address] [address] MCHC (RBC) [Mass/Vol] 32.3 g/dL Normal 32.0 - 36.0 [facility] Comment on above: Performed By: #### C BCDF #### [address] [address] MCV (RBC) [Entitic vol] 91 fL Normal 80 - 100 [facility] Comment on above: Performed By: #### C BCDF #### [address] [address] Monocytes (Bld) [#/Vol] 0.54 10*3/uL Normal 0.10 - 1.00 [facility] Comment on above: Performed By: #### C BCDF #### [address] [address] Monocytes/100 WBC (Bld) 7.8 % Normal 2.0 - 10.0 [facility] Comment on above: Performed By: #### C BCDF #### [address] [address] Neutrophils (Bld) [#/Vol] 3.05 10*3/uL Normal 1.20 - 7.70 [facility] Comment on above: Performed By: #### C BCDF #### [address] [address] Neutrophils/100 WBC (Bld) 44.1 % Normal 40.0 - 80.0 [facility] Comment on above: Performed By: #### C BCDF #### [address] [address] NUCLEATED RBC 0.0 /100 WBC Normal 0.0 - 0.0 [facility] Comment on above: Performed By: #### C BCDF #### [address] [address] Platelets (Bld) [#/Vol] 358 10*3/uL Normal 150 - 450 [facility] Comment on above: Performed By: #### C BCDF #### [facility] [address] [place] [address] RBC 4.42 x10E12/L Normal 4.00 - 5.20 [facility] Comment on above: Performed By: #### C BCDF #### [facility] [address] [place] [address] WBC (Bld) [#/Vol] 6.9 10*3/uL Normal 4.4 - 11.3 [facility] Comment on above: Performed By: #### C BCDF #### [facility] [address] [place] [address] COMPREHENSIVE PANELon 2022 Albumin [Mass/Vol] 4.5 g/dL Normal 3.4 - 5.0 [facility] Comment on above: Performed By: #### C OVSC #### [facility] [address] [place] [address] ALP [Catalytic activity/Vol] 85 U/L Normal 33 - 136 [facility] Comment on above: Performed By: #### C OVSC #### [facility] [address] [place] [address] ALT [Catalytic activity/Vol] 14 U/L Normal 7 - 45 [facility] Comment on above: Result Comment: Shaista ents treated with Sulfasalazine may generate falsely decreased results for ALT. Performed By: #### C OVSC #### [facility] [address] [place] [address] Anion gap [Moles/Vol] 11 mmol/L Normal 10 - 20 [facility] Comment on above: Performed By: #### C OVSC #### [facility] [address] [place] [address] AST [Catalytic activity/Vol] 14 U/L Normal 9 - 39 [facility] Comment on above: Performed By: #### C OVSC #### [facility] [address] [place] [address] Bilirubin [Mass/Vol] 0.4 mg/dL Normal 0.0 - 1.2 [facility] Comment on above: Performed By: #### C OVSC #### [facility] [address] [place] [address] Calcium [Mass/Vol] 9.7 mg/dL Normal 8.6 - 10.3 [facility] Comment on above: Performed By: #### C OVSC #### [facility] [address] [place] [address] Chloride [Moles/Vol] 105 mmol/L Normal 98 - 107 [facility] Comment on above: Performed By: #### C OVSC #### [facility] [address] [place] [address] Creatinine [Mass/Vol] 1.06 mg/dL High 0.50 - 1.05 [facility] Comment on above: Performed By: #### C OVSC #### [facility] [address] [place] [address] GFR/1.73 sq M.predicted among non-blacks MDRD (S/P/Bld) [Vol rate/Area] 59 mL/min/{1.73_m2} Abnormal >90 [facility] Comment on above: Result Comment: CALC ULATIONS OF ESTIMATED GFR ARE PERFORMED USING THE 2020 CKD-EPI STUDY REFIT EQUATION WITHOUT THE RACE VARIABLE FOR THE IDMS-TRACEABLE CREATININE METHODS. https://jasn.asnjournals.org/content//ASN.7732848 988 Performed By: #### C OVSC #### [facility] [address] [place] [address] Glucose [Mass/Vol] 109 mg/dL High 74 - 99 [facility] Comment on above: Performed By: #### C OVSC #### [facility] [address] [place] [address] HCO3 (Bld) [Moles/Vol] 28 mmol/L Normal 21 - 32 [facility] Comment on above: Performed By: #### C OVSC #### [facility] [address] [place] [address] Potassium [Moles/Vol] 4.2 mmol/L Normal 3.5 - 5.3 [facility] Comment on above: Performed By: #### C OVSC #### [facility] [address] [place] [address] Protein [Mass/Vol] 7.7 g/dL Normal 6.4 - 8.2 [facility] Comment on above: Performed By: #### C OVSC #### [facility] [address] [place] [address] Sodium [Moles/Vol] 140 mmol/L Normal 136 - 145 [facility] Comment on above: Performed By: #### C OVSC #### [facility] [address] [place] [address] Urea nitrogen [Mass/Vol] 23 mg/dL Normal 6 - 23 [facility] Comment on above: Performed By: #### C OVSC #### [facility] [address] [place] [address] HEMOGLOBIN A1Con 07-27-2023 Glucose [Mass/Vol] 128 mg/dL Normal [facility] Comment on above: Performed By: #### A LBSP #### [facility] [address] [place] [address] HbA1c (Bld) [Mass fraction] 6.1 % Abnormal [facility] Comment on above: Result Comment: Diag nosis of Diabetes-Adults Non-Diabetic: < or = 5.6% Increased risk for developing diabetes: 5.7-6.4% Diagnostic of diabetes: > or = 6.5% . Monitoring of Diabetes Age (y) Therapeutic Goal (%) Adults: >18 <7.0 Pediatrics: 13-18 <7.5 7-12 <8.0 0- 6 7.5-8.5 [employer] [employer]. Diabetes Care 33(S1), Nov 2009. Performed By: #### A LBSP #### [facility] [address] [place] [address] LDL, DIRECTon 07-27-2023 Cholesterol in LDL [Mass/Vol] 106 mg/dL Normal 0 - 129 [facility] Comment on above: Result Comment: Elev ated levels of LDL cholesterol are recognized as a fisher factor in the development of atherosclerosis and CHD. The direct LDL cholesterol test can be used to assess cardiovascular risk and monitor therapy as a follow up to a lipid profile when triglycerides are significantly elevated. Performed By: #### A LBSP #### [facility] [address] [place] [address] LIPID PANEL (CORONARY RISK 2 )on 07-27-2023 Cholesterol [Mass/Vol] 183 mg/dL Normal 0 - 199 [facility] Comment on above: Result Comment: . AGE [...] Performed By: #### C OVSC #### [facility] [address] [place] [address] Cholesterol in HDL [Mass/Vol] 33.1 mg/dL Abnormal [facility] Comment on above: Result Comment: . AGE VERY LOW LOW NORMAL HIGH 0-19 Y < 35 < 40 40-45 ---- 20-24 Y ---- < 40 >45 ---- >24 Y ---- < 40 40-60 >60 . Performed By: #### C OVSC #### [facility] [address] [place] [address] Cholesterol in LDL [Mass/Vol] 92 mg/dL Normal 0 - 99 [facility] Comment on above: Result Comment: . NEAR BORD AGE DESIRABLE OPTIMAL HIGH HIGH VERY HIGH 0-19 Y 0 - 109 --- 110-129 >/= 130 ---- 20-24 Y 0 - 119 --- 120-159 >/= 160 ---- >24 Y 0 - 99 100-129 130-159 160-189 >/=190 . Performed By: #### C OVSC #### [facility] [address] [place] [address] Cholesterol in VLDL [Mass/Vol] 58 mg/dL High 0 - 40 [facility] Comment on above: Performed By: #### C OVSC #### [facility] [address] [place] [address] Cholesterol.total/Ch olesterol in HDL [Mass ratio] 5.5 {ratio} Abnormal [facility] Comment on above: Result Comment: REF VALUES DESIRABLE < 3.4 HIGH RISK > 5.0 Performed By: #### C OVSC #### [facility] [address] [place] [address] NON-HDL CHOLESTEROL 150 mg/dL Normal [facility] Comment on above: Result Comment: AGE DESIRABLE BORDERLINE HIGH HIGH VERY HIGH 0-19 Y 0 - 119 120 - 144 >/= 145 >/= 160 20-24 Y 0 - 149 150 - 189 >/= 190 ---- >24 Y 30 MG/DL ABOVE LDL CHOLESTEROL GOAL . Performed By: #### C OVSC #### [facility] [address] [place] [address] Triglyceride [Mass/Vol] 288 mg/dL High 0 - 149 [facility] Comment on above: Result Comment: . AGE [...] dosing. Performed By: #### C OVSC #### [facility] [address] [place] [address] TSHon 07-27-2023 TSH Qn 0.61 m[IU]/L Normal 0.44 - 3.98 [facility] Comment on above: Result Comment: TSH testing is performed using different testing methodology at [facility] than at other [facility]. Direct result comparisons should only be made within the same method. Performed By: #### A LBSP #### [facility] [address] [place] [address] VITAMIN B12on 07-27-2023 Cobalamin (Vitamin B12) [Mass/Vol] 1408 pg/mL High 211 - 911 [facility] Comment on above: Performed By: #### V TB12 #### [facility] [address] [place] [address] VITAMIN D, 25-HYDROXYon 07-16 VITAMIN D, 25-HYDROXY 50 ng/mL Normal [facility] Comment on above: Result Comment: . DEFICIENCY: < 20 NG/ML INSUFFICIENCY: 20-29 NG/ML SUFFICIENCY: 30-100 NG/ML THIS ASSAY ACCURATELY QUANTIFIES THE SUM OF VITAMIN D3, 25-HYDROXY AND VIT D2,25-HYDROXY. Performed By: #### V TDOH #### [facility] [address] [place] [address] ALLIED HEALTHon 07-02-2023 ALLIED HEALTH HNO ID: [id number] Author: Francesca Kaur Service: Radiology Author Type: ? Type: Allied Health Filed: 07/02/2023 10:12 AM Note Text: RADIOLOGY SERVICE PROGRESS NOTE DATE OF SERVICE: July 02, 2023 TIME OF SERVICE: 10:03AM EVENT: ARRIVED IN WHEELCHAIR ADDITIONAL EVENT DETAILS: NA SIGNATURE: Francesca Kaur PATIENT NAME: Marie Sexton DATE: July 02, 2023 TIME: 10:12 AM PAGER/CONTACT #: [facility] CNOVon 07-02-2023 CNOV Office Visit (ORFWHP ) MARIE SEXTON ([id number]) 1960 F Date Time Provider Department 07/02/23 [...] No new joint (more content not included)... [facility] XR ANKLE 3V AP/LAT/OBL RTon 07-02-2023 [...] appears intact. Pes planus. IMPRESSION: Postsurgical changes. Educational Consultant: SUBHASH Transcribe Date/Time: Jul 07 2023 7:59A Dictated by : SREE BUTTS MD This examination was interpreted and the report reviewed and electronically signed by: SREE BUTTS MD on Jul 07 2023 8:02AM EST [id number] [facility] CNOVon 06-07-2023 CNOV Office Visit (ORTHLD ) MARIE SEXTON ([id number]) 1960 F Date Time Provider Department 06/07/23 [...] habits, hematoche (more content not included)... Normal [facility] Office Visit (ORTHLD ) MARIE SEXTON ([id number]) 1960 F Date Time Provider Department 06/07/23 11:30 AM CAST [employer] [facility] During your visit today, we [...] Lorraine Yancey, RN Referring Provider: MACARIO SANTOS [[id number]] Allergies As of Date: 06/07/2023 Noted Allergy [...] As Of Date 06/07/2023 Noted Resolved diabetes [[id number]] 05/17/2023 Neuropathy [G62.9] Hallux extensus, acquired [M20.5X9] [...] Status:Closed by MAHENDRA PRAJAPATI on 06/07/23 Normal [facility] XR ANKLE 3V AP/LAT/OBL RTon 06-07-2023 [...] IMPRESSION: Postoperative findings as given the results. Educational Consultant: SUBHASH Transcribe Date/Time: Jun 10 2023 11:03A Dictated by : FANG HOLLOWAY MD This examination was interpreted and the report reviewed and electronically signed by: FANG HOLLOWAY MD on Jun 10 2023 11:06AM EST [id number] Normal [facility] CNOVon 05-27-2023 CNOV Office Visit (ORFWHP ) MARIE SEXTON ([id number]) 1960 F Date Time Provider Department 05/27/23 [...] As Of Date 05/27/2023 Noted Resolved diabetes [[id number]] 05/17/2023 Neuropathy [G62.9] Hallux extensus, acquired [M20.5X9] [...] Status:Closed by REGI CHERRY MA on 05/27/23 [facility] Bimal 05-24-2023 CNPN Telephone (FVFOPR) MARIE SEXTON ([id number]) 1960 F Date Time Provider Department 05/24/23 [...] Mara Stallworth RN Acute Pain Management Service [facility] Allergies As of Date: 05/24/2023 Noted [...] As Of Date 05/24/2023 Noted Resolved diabetes [[id number]] 05/17/2023 Neuropathy [G62.9] Hallux extensus, acquired [M20.5X9] [...] Encounter Status:Closed by BRIGETTE STALLWORTH on 05/24/23 [facility] 05-23-2023 JOSE ALBERTO Telephone (MAHESH) MARIE SEXTON ([id number]) 1960 F Date Time Provider Department 05/23/23 KAYLYN LONDON During your visit today, we recorded the following information about you: Kaylyn London APRN.TOE STRIPPER 05/23/2023 9:41 AM Signed Attempted to call pt to check on status of CADD pump. No answer, left detailed VM. Kaylyn London APRN.TOE STRIPPER Allergies As of Date: 05/23/2023 Noted Allergy [...] As Of Date 05/23/2023 Noted Resolved diabetes [[id number]] 05/17/2023 Neuropathy [G62.9] Hallux extensus, acquired [M20.5X9] [...] Encounter Status:Closed [facility]OND[facility] ([id number]) 1960 F Date Time Provider Department 05/19/23 BRIGETTE STALLWORTH FVFOPR During your visit today, we recorded the following information about you: Brigette Stallworth RN 05/19/2023 3:16 PM Signed Pt is POD# 2. S/P Right Leg removal of deep hardware Right Ankle fusion Right subtalar joint fusion Fibular osteotomy right ankle [place] of bone marrow autograft right leg with [...] Mara Stallworth RN Acute Pain Management Service [facility] Allergies As of Date: 05/19/2023 Noted [...] As Of Date 05/19/2023 Noted Resolved diabetes [[id number]] 05/17/2023 Neuropathy [G62.9] Hallux extensus, acquired [M20.5X9] [...] Encounter Status:Closed by BRIGETTE STALLWORTH on 05/19/23 [facility] CONSULT PROGon 05-18-2023 CONSULT PROG HNO ID: [id number] Author: Donell Khoury PA-C Service: Pain Management Author Type: Physician Rn Enterostomal Type: Consult Progress Note Filed: 05/18/2023 8:35 AM Note Text: PERIPHERAL NERVE CATHETER PROGRESS NOTE PATIENT NAME: Marie Sexton SERVICE DATE: 05/18/2023 SERVICE TIME: 7:28 AM ASSESSMENT Marie Sexton is a 63 year old female who is POD# 1 Right Leg removal of deep hardware Right Ankle fusion Right subtalar joint fusion Fibular osteotomy right ankle [place] of bone marrow autograft right leg Patient reports good pain control [address]. Adductor canal and Popliteal PNC running per CADD 0.2% @ 04/18/30. Dilaudid PRN and Roxicodone on board minimal usage with PNC in place. PLAN Continue current pain regimen, will follow. Patient with CADD pumps in place patient may go home with PNC in place and [employer] [facility] will call patient daily. SUBJECTIVE CHIEF COMPLAINT: Marie Sexton is a 63 year old female who is POD# 1 Right Leg removal of deep hardware Right Ankle fusion Right subtalar joint fusion Fibular osteotomy right ankle [place] of bone marrow autograft right leg PRIMARY [...] which included preparing to see the patient, [id number] patient care, completing clinical documentation, obtaining and/or reviewing separately obtained history, performing a medically appropriate examination, counseling and educating the patient/family/caregive r, and communicating results to the patient/family/caregive r. SIGNATURE: Donell Khoury PA-C PATIENT NAME: Marie Sexton DATE: May 18, 2023 TIME: 7:28 AM PAGER/CONTACT #: [facility] [phone] [facility] HISTORY PHYSICALon HISTORY PHYSICAL HNO ID: [id number] Author: Alannah Whiteside MD Service: Hospital Medicine Author Type: Physician Type: HANDP Filed: 05/17/2023 10:51 PM Note Text: Hospital Medicine Consult History and Physical PRIMARY SERVICE: HOSPITAL MEDICINE Days: [facility] hospital medicine team pager Evenings: [facility] hospital medicine pager [phone] PATIENT NAME: Marie Sexton DATE of SERVICE: [...] subtalar joint fusion Fibular osteotomy right ankle [place] of bone marrow autograft right leg SOCIAL [...] TIME: 10:50 PM Discussed with: Patient Normal [facility] ANES POSTPROC EVALon 023 ANES POSTPROC EVAL HNO ID: [id number] Author: Amelia Camara MD Service: Critical Care [...] May 17, 2023 TIME: 3:32 PM CSN: [id number] [facility] ANES PRE-OPon 05-17-2023 ANES PRE-OP HNO ID: [id number] Author: SÁNCHEZ Junior Service: Critical Care Author Type: Design Engineering Specialist Type: Anesthesia Preprocedure Evaluation Filed: 05/17/2023 8:12 [...] Ankle) - POPLITEAL BLOCK Isto Bone graft; [facility] TTC Nail and headless 6.5 and 5.5 screws; Floyd Large screw removal (5.0, 6.5) Isto confirmed by José Miguel Bridges - kf 05/11 [place] confirmed with Og Trevino - milena 05/11 [...] and consent discussed: yes. Patient / Responsible Alliance Party agrees to proceed: yes Patient / [...] Units by INJECTION(UNSPECIFI (more content not included)... [facility] BRIEF OP NOTon 05-17-2023 BRIEF OP NOT HNO ID: [id number] Author: Macario Santos DPM Service: Podiatry Author Type: Physician Type: Brief Op Note Filed: 05/17/2023 10:59 AM Note Text: PODIATRIC SURGERY BRIEF OPERATIVE NOTE LOG ID: [id number] Surgery/Procedure Date: 05/17/2023 Incision/Procedure Start Time: 8:25 AM Incision Close/Procedure End Time: Surgeon(s)/Proceduralis t(s) and Rn Enterostomal(s): Surgeon(s) and Role: * Macario Santos DPM - Primary Physician Rn Enterostomal: Leslie Malick, PA-C Procedure(s): Right Leg removal of deep hardware Right Ankle fusion Right subtalar joint fusion Fibular osteotomy right ankle [place] of bone marrow autograft right leg Anesthesia: General Findings: Well aligned rearfoot Estimated Blood Loss: 100 mls Specimens: None Complications: NONE Pre-Op/Pre-Procedure Diagnosis: 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 Took bed close to the bathroom and with assistance helped her to the bathroom with a walker (2 person assist). [facility] NURSING PROG HNO ID: [id number] Author: Francesca Young RN Service: Nursing Author [...] overnight. He is putting orders in now. [facility] NURSING PROG HNO ID: [id number] Author: Melodie Lorenzo RN Service: Nursing Author [...] certain she will be okay at home. [facility] NURSING PROG HNO ID: [id number] Author: Brigette Stallworth RN Service: Pain Management Author Type: Registered Nurse Type: Nursing Progress Note Filed: 05/17/2023 7:24 AM Note Text: RIGHT popliteal nerve block with catheter RIGHT adductor nerve block with catheter Dr. Smith and Dr. Barbour Patient verbalized understanding of nerve block procedure. [facility] NURSING PROG HNO ID: [id number] Author: Gracie Abraham RN Service: Nursing Author [...] (RECOMMENDATION): None Electronically Signed By: Gracie Abraham [facility] OPERATIVE NOon 05-17-2023 OPERATIVE NO HNO ID: [id number] Author: Macario Santos DPM Service: Podiatry Author Type: Physician Type: Operative Report Filed: 05/17/2023 1:58 PM Note Text: SURGERY OPERATIVE NOTE LOG ID: [id number] Surgery/Procedure Date: 05/17/2023 Incision/Procedure Start Time: 8:25 AM Incision Close/Procedure End Time: 11:33 AM Surgeon(s)/Proceduralis t(s) and Rn Enterostomal(s): Surgeon(s) and Role: * Macario Santos DPM - Primary Physician Rn Enterostomal: Leslie Teresa PA-C PRE-OP/PRE-PROCEDURE DIAGNOSIS: 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 Once this was completed the Huntington nail was placed into the leg and [...] available to assist. (more content not included)... [facility] XR ANKLE 2V AP/LAT RTon XR ANKLE 2V AP/LAT RT * * *Final Report* * * DATE OF EXAM: May 17 2023 10:49AM [facility] 5576 - XR ANKLE 2V AP/LAT RT [...] Please see procedure report for complete details. Educational Consultant: SUBHASH Transcribe Date/Time: May 17 2023 2:29P Dictated by : MIGUEL HERNANDEZ MD This examination was interpreted and the report reviewed and electronically signed by: MIGUEL HERNANDEZ MD on May 17 2023 2:33PM EST [id number] [facility] NM CARDIAC PERF STRESS/PHARM on 05-14-2023 NM CARDIAC PERF STRESS/PHARM * * *Final Report* * * DATE OF EXAM: May 14 2023 2:02PM [facility] 0006 - NM CARDIAC PERF STRESS/PHARM / PROCEDURE REASON: Preoperative cardiovascular examination * * * * Physician Interpretation * * * * Stress Yard Switcher Report: [facility] Date of service: 05/14/2023 12:27:48 PM Supervising [...] later. See administered radiotracer and doses below. [facility] Date of service: 05/14/2023 12:27:48 PM [...] * * * ---- NM CTAC Report: [facility] Date of service: 05/14/2023 12:27:48 PM CTAC interpreting physician: Patrice Dalton MD PATIENT: Name: MARIE SEXTON Age: 63 years Gender: F 1. Incidental Findings from limited non-diagnostic CTAC: - Coronary calcifications visualized. * * * Final * * * ---- Stress ECG Report: [facility] FELIX-2 Date of service: 05/14/2023 12:27:48 PM Ordering physician: DANA GOYAL music therapy specialist: Rosina Gonzalez Rn Enterostomal: Prem Shields Fellow: Annabelle Woodard MD and [...] 51% of (more content not included)... Normal [facility] PVR ANK/VILCHIS/TOE FRANCESCO VAS LAB on 05-14-2023 PVR ANK/VILCHIS/TOE FRANCESCO VAS LAB Non-Invasive Vascular Laboratory [facility] F30 Lower Extremity Arterial Physiology Study [...] physician: Casie Moore MD, CYNTHIA Final CC [employer] Image : [id number] See Link below for Image Normal [facility] LEG ARTERIAL PERIPH FRANCESCO V LABon 05-14-2023 LEG ARTERIAL PERIPH FRANCESCO VAS LAB Non-Invasive Vascular Laboratory [facility] F30 Lower Extremity Arterial Duplex Bilateral/Complete [...] Final CC [employer] Image : [id number]. (more content not included)... Normal [facility] HISTORY PHYSICALon HISTORY PHYSICAL HNO ID: [id number] Author: Indiana Clemens PA-C Service: ? Author Type: Physician Rn Enterostomal Type: HANDP Filed: 05/14/2023 4:12 PM Note [...] 160-4.5 mcg/actuati (more content not included)... Normal [facility] CNOVon 05-07-2023 CNOV Office Visit (CARINF ) DARSHANMARIE Parks ([id number]) 1960 F Date Time Provider Department 05/07/23 2:00 PM DANA GOYAL During your visit today, we recorded the following information about you: Pulse Blood pressure 68/minute 120/66 Dana Goyal MD 05/07/2023 3:11 PM Signed [facility] [place] Natalia Shrestha Department of Cardiovascular Medicine SECTION OF INTERVENTIONAL CARDIOLOGY OUTPATIENT VISIT DATE 05/07/2023 OUTPATIENT VISIT TYPE New PRIMARY CARE PHYSICIAN: Collins Andrews ([facility]) [address] [place] [address] REFERRING PHYSICIAN: No referring provider defined for [...] meals. hydrochlorothiazide (more content not included)... Normal [facility] QQL24nm 05-07-2023 ECG01 Ventricular Rate : 6 8 BPM Atrial Rate : 68 BPM P-R Interval : 156 ms QRS Duration : 74 ms Q-T Interval : 394 ms QTC Calculation(Bazett) : 418 ms Calculated P [place] : 55 degrees Calculated R [place] : 52 degrees Calculated T [place] : 64 degrees NORMAL SINUS RHYTHM NORMAL ECG Confirmed by MOIZ MAHER MD ([id number]) on 05/17/2023 10:36:53 AM NAME : MARIE SEXTON PID : [id number] : 1960 Gender : Female Race : [...] : , Acquired by : , Eusebio [facility] Bimal 05-05-2023 CNPN Telephone (ORFWHP) DARSHANMARIE TRINIDAD ([id number]) 1960 F Date Time Provider Department 05/05/23 [facility] During your visit today, we recorded the following information about you: Pennie Isbellyt Pss 05/05/2023 1:47 PM Signed pharmacy scheduler spoke to patient with her daughter(Jennifer) [...] As Of Date 05/05/2023 Noted Resolved diabetes [EXH6156] Neuropathy [G62.9] Hallux extensus, acquired [M20.5X9] HTN (hypertension) [I10] IBS (irritable bowel syndrome) [K58.9] Arthritis [M19.90] Diabetic foot ulcer [E11.621, L97.509] 12/21/2013 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 [facility] 04-22-2023 [facility] Office Visit (JAE ) MARIE SEXTON ([id number]) 1960 F Date Time Provider Department 04/22/23 [...] numbness o (more content not included)... Normal [facility] CT ANKLE WO IVCON RIGHTon [facility] CT ANKLE WO IVCON RTon 04-22 CT ANKLE WO IVCON RT * * *Final Report* * * DATE OF EXAM: Apr 22 2023 3:55PM [facility] 0061 - CT ANKLE WO IVCON [...] the right foot and ankle as described. Educational Consultant: PSCB Transcribe Date/Time: Apr 22 2023 4:18P Dictated by : COLLINS BENJAMIN MD This examination was interpreted and the report reviewed and electronically signed by: COLLINS BENJAMIN MD on Apr 22 2023 4:22PM EST [id number] Normal [facility] XR ANKLE 3V AP/LAT/OBL RTon 04-22-2023 XR [...] the hindfoot and midfoot without complication identified. Educational Consultant: SUBHASH Transcribe Date/Time: Apr 23 2023 4:47P Dictated by : RAMIRO PAEZ MD This examination was interpreted and the report reviewed and electronically signed by: RAMIRO PAEZ MD on Apr 23 2023 6:26PM EST [id number] Normal [facility] XR TIBIA FIBULA 2V AP/LAT LT on [...] for the characterization as clinically determined. . Educational Consultant: SUBHASH Transcribe Date/Time: Apr 23 2023 4:49P Dictated by : RAMIRO PAEZ MD This examination was interpreted and the report reviewed and electronically signed by: RAMIRO PAEZ MD on Apr 23 2023 6:29PM EST [id number] Normal [facility] GLUCOSE-POCTon 03-22-2023 Glucose [Mass/Vol] 100 mg/dL High 74 - 99 [facility] Comment on above: Performed By: #### G JONATHAN #### [facility] [address] [place] [address] Glucose Test strip manual (B ld) [Mass/Vol]on 03-22-2023 Glucose [Mass/Vol] 100 mg/dL High 74 - 99 mg/dL [facility] Interpretation and review of laboratory results [facility] Order Reconciliationon 03-22 Order Reconciliation Page [...] continued as multivitamin Multiple Vitamins oral tablet Mekoryuk-3 1000 mg oral capsule 1 cap(s) oral twice a day 01-Jun-2022 11:21 Mekoryuk-3 1000 mg oral capsule 1 cap(s) oral twice a day 01-Jun-2022 11:21 Mekoryuk-3 1000 mg oral capsule is continued as Mekoryuk-3 1000 mg oral capsule turmeric 500 mg [...] gram/ D (more content not included)... Normal [facility] RF Unspecified body region L ess than 1 hour Views during surgeryon 03-22-2023 RIS LEGACY CONVERSIONS Conversion, Ge Radiology - 05/21/2023 [facility] Work Phone: Radiology Study observation (narrative) [facility] Work Phone: RF Unspecified body region L ess than 1 hour Views during surgeryOrdered By: Ge Conversion on 03-22-2023 [facility] Patient Profile - Preop v3on 03-19-2023 Patient Profile - Preop v3 Patient Profile - Preop: Initial Info: Patient DemographicsName: MARIE SEXTON Date: 1960 Address: [address] [place] [address] Date/Time [id number] 13:05 Primary Phone [phone] Instructions Givenappropriate clothing, 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 (procedure may be cancelled if no otr tanker truck driver), center location, remove jewerly/piercings, time [...] Reactionnot applicable Health Mgmt: [facility] Barriers to Managing Healthnone Relationship/Environ: Lives Withalone Living Arrangementshouse Resource/Environmental Concernsnone Anticipated Transition [place] [facility] Anticipated at Transitionnone Tobacco Use: Tobacco Useno Pre-op Checklist: Arrival [id number] Arrival Time11:24 Procedure TypeRIGHT ANKLE SUBLUXATION REPAIR/ HARDWARE REMOVAL/ CALCANEAL OSTEOTOMY/ SKIN FLAP CLOSURE WITH C-ARM NPOyes Last Food [id number]-9392 21:00 Last Clear Fluid [id number]-Zrc-9150 10:00 ID Band On Patientpatient ID (name), [...] Updated: 22-Mar-2023 11:50 by Christopher Caceres) Normal [facility] CBC AND DIFFERENTIALon 03-17 % AUTOMATED IMMATURE GRAN 0.4 % Normal 0.0 - 0.9 [facility] Comment on above: Result Comment: Coni ture Granulocyte Count (IG) includes promyelocytes, myelocytes and metamyelocytes but does not include bands. Percent differential counts (%) should be interpreted in the context of the absolute cell counts (cells/L). Performed By: #### C BCDF ####[facility] [place] [address] Basophils (Bld) [#/Vol] 0.05 10*3/uL Normal 0.00 - 0.10 [facility] Comment on above: Performed By: #### C BCDF ####[facility] [place] [address] Basophils/100 WBC (Bld) 0.6 % Normal 0.0 - 2.0 [facility] Comment on above: Performed By: #### C BCDF ####[address] [place] [address] Eosinophils (Bld) [#/Vol] 0.23 10*3/uL Normal 0.00 - 0.70 [facility] Comment on above: Performed By: #### C BCDF ####[address] [place] [address] Eosinophils/100 WBC (Bld) 2.9 % Normal 0.0 - 6.0 [facility] Comment on above: Performed By: #### C BCDF ####[address] [address] Erythrocyte distribution width (RBC) [Ratio] 12.3 % Normal 11.5 - 14.5 [facility] Comment on above: Performed By: #### C BCDF ####[address] [address] Hematocrit (Bld) [Volume fraction] 40.1 % Normal 36.0 - 46.0 [facility] Comment on above: Performed By: #### C BCDF ####[address] [address] Hemoglobin (Bld) [Mass/Vol] 13.5 g/dL Normal 12.0 - 16.0 [facility] Comment on above: Performed By: #### C BCDF ####[address] [place] [address] Lymphocytes (Bld) [#/Vol] 3.98 10*3/uL Normal 1.20 - 4.80 [facility] Comment on above: Performed By: #### C BCDF ####[address] [place] [address] Lymphocytes/100 WBC (Bld) 50.5 % Normal 13.0 - 44.0 [facility] Comment on above: Performed By: #### C BCDF ####[address] [address] MCHC (RBC) [Mass/Vol] 33.7 g/dL Normal 32.0 - 36.0 [facility] Comment on above: Performed By: #### C BCDF ####[address] [place] [address] MCV (RBC) [Entitic vol] 92 fL Normal 80 - 100 [facility] Comment on above: Performed By: #### C BCDF ####[address] [place] [address] Monocytes (Bld) [#/Vol] 0.53 10*3/uL Normal 0.10 - 1.00 [facility] Comment on above: Performed By: #### C BCDF ####[address] [place] [address] Monocytes/100 WBC (Bld) 6.7 % Normal 2.0 - 10.0 [facility] Comment on above: Performed By: #### C BCDF ####[address] [place] [address] Neutrophils (Bld) [#/Vol] 3.06 10*3/uL Normal 1.20 - 7.70 [facility] Comment on above: Performed By: #### C BCDF ####[address] [place] [address] Neutrophils/100 WBC (Bld) 38.9 % Normal 40.0 - 80.0 [facility] Comment on above: Performed By: #### C BCDF ####[address] [place] [address] NUCLEATED RBC 0.0 /100 WBC Normal 0.0 - 0.0 [facility] Comment on above: Performed By: #### C BCDF ####[address] [place] [address] Platelets (Bld) [#/Vol] 297 10*3/uL Normal 150 - 450 [facility] Comment on above: Performed By: #### C BCDF ####[address] [place] [address] RBC 4.36 x10E12/L Normal 4.00 - 5.20 [facility] Comment on above: Performed By: #### C BCDF ####[address] [place] [address] WBC (Bld) [#/Vol] 7.9 10*3/uL Normal 4.4 - 11.3 [facility] Comment on above: Performed By: #### C BCDF ####[facility] [place] [address] ALBUMIN, URINE SPOTon 2022 ALBUMIN,URINE <7.0 Normal Not Established [facility] Comment on above: Performed By: #### C OVSC #### [facility] [address] [place] [address] ALBUMIN/CREAT RATIO SEE COMMENT Normal 0.0 - 30.0 [facility] Comment on above: Result Comment: One or more analytes used in this calculation is outside of the analytical measurement range. Calculation cannot be performed. Performed By: #### C OVSC #### [facility] [address] [place] [address] CREATININE,URINE 56.3 mg/dL Normal 20.0 - 320.0 [facility] Comment on above: Performed By: #### C OVSC #### [facility] [address] [place] [address] ALBUMIN, URINE SPOTon 2022 ALBUMIN,URINE Canceled Normal [facility] Comment on above: Order Comment: TEST ALBUMIN, URINE SPOT WAS CANCELLED, 02/02/2023 10:27 not collected. Performed By: #### A LBSP #### [facility] [address] [place] [address] ALBUMIN/CREAT RATIO Canceled Normal [facility] Comment on above: Order Comment: TEST ALBUMIN, URINE SPOT WAS CANCELLED, 02/02/2023 10:27 not collected. Performed By: #### A LBSP #### [facility] [address] [place] [address] CREATININE,URINE Canceled Normal [facility] Comment on above: Order Comment: TEST ALBUMIN, URINE SPOT WAS CANCELLED, 02/02/2023 10:27 not collected. Performed By: #### A LBSP #### [facility] [address] [place] [address] COMPREHENSIVE PANELon 2022 Albumin [Mass/Vol] 4.6 g/dL Normal 3.4 - 5.0 [facility] Comment on above: Performed By: #### C MP #### [address] [place] [address] ALP [Catalytic activity/Vol] 42 U/L Normal 33 - 136 [facility] Comment on above: Performed By: #### C MP #### [address] [place] [address] ALT [Catalytic activity/Vol] 28 U/L Normal 7 - 45 [facility] Comment on above: Result Comment: Shaista ents treated with Sulfasalazine may generate falsely decreased results for ALT. Performed By: #### C MP #### [address] [place] [address] Anion gap [Moles/Vol] 13 mmol/L Normal 10 - 20 [facility] Comment on above: Performed By: #### C MP #### [address] [place] [address] AST [Catalytic activity/Vol] 20 U/L Normal 9 - 39 [facility] Comment on above: Performed By: #### C MP #### [address] [place] [address] Bilirubin [Mass/Vol] 0.3 mg/dL Normal 0.0 - 1.2 [facility] Comment on above: Performed By: #### C MP #### [address] [place] [address] Calcium [Mass/Vol] 10.0 mg/dL Normal 8.6 - 10.3 [facility] Comment on above: Performed By: #### C MP #### [address] [place] [address] Chloride [Moles/Vol] 103 mmol/L Normal 98 - 107 [facility] Comment on above: Performed By: #### C MP #### [address] [place] [address] Creatinine [Mass/Vol] 1.25 mg/dL High 0.50 - 1.05 [facility] Comment on above: Performed By: #### C MP #### [address] [place] [address] GFR/1.73 sq M.predicted among non-blacks MDRD (S/P/Bld) [Vol rate/Area] 49 mL/min/{1.73_m2} Abnormal >90 [facility] Comment on above: Result Comment: CALC ULATIONS OF ESTIMATED GFR ARE PERFORMED USING THE 2020 CKD-EPI STUDY REFIT EQUATION WITHOUT THE RACE VARIABLE FOR THE IDMS-TRACEABLE CREATININE METHODS. https://jasn.asnjournals.org/content/early//ASN.8520374 988 Performed By: #### C MP #### [address] [place] [address] Glucose [Mass/Vol] 76 mg/dL Normal 74 - 99 [facility] Comment on above: Performed By: #### C MP #### [address] [place] [address] HCO3 (Bld) [Moles/Vol] 28 mmol/L Normal 21 - 32 [facility] Comment on above: Performed By: #### C MP #### [address] [place] [address] Potassium [Moles/Vol] 3.9 mmol/L Normal 3.5 - 5.3 [facility] Comment on above: Performed By: #### C MP #### [address] [place] [address] Protein [Mass/Vol] 7.4 g/dL Normal 6.4 - 8.2 [facility] Comment on above: Performed By: #### C MP #### [address] [place] [address] Sodium [Moles/Vol] 140 mmol/L Normal 136 - 145 [facility] Comment on above: Performed By: #### C MP #### [address] [place] [address] Urea nitrogen [Mass/Vol] 24 mg/dL High 6 - 23 [facility] Comment on above: Performed By: #### C MP #### [address] [place] [address] HEMOGLOBIN A1Con 03--2023 Glucose [Mass/Vol] 137 mg/dL Normal [facility] Comment on above: Performed By: #### H BA1E #### [facility] [address] [place] [address] HbA1c (Bld) [Mass fraction] 6.4 % Abnormal [facility] Comment on above: Result Comment: Diag nosis of Diabetes-Adults Non-Diabetic: < or = 5.6% Increased risk for developing diabetes: 5.7-6.4% Diagnostic of diabetes: > or = 6.5% . Monitoring of Diabetes Age (y) Therapeutic Goal (%) Adults: >18 <7.0 Pediatrics: 13-18 <7.5 7-12 <8.0 0- 6 7.5-8.5 [employer] [employer]. Diabetes Care 33(S1), Nov 2009. Performed By: #### H BA1E #### [facility] [address] [place] [address] TSHon 02-02-2023 TSH Qn 1.56 m[IU]/L Normal 0.44 - 3.98 [facility] Comment on above: Result Comment: TSH testing is performed using different testing methodology at [facility] than at other [facility]. Direct result comparisons should only be made within the same method. Performed By: #### T SH2 #### [facility] [address] [place] [address] VITAMIN D, 25-HYDROXYon 01-14 VITAMIN D, 25-HYDROXY 49 ng/mL Normal [facility] Comment on above: Result Comment: . DEFICIENCY: < 20 NG/ML INSUFFICIENCY: 20-29 NG/ML SUFFICIENCY: 30-100 NG/ML THIS ASSAY ACCURATELY QUANTIFIES THE SUM OF VITAMIN D3, 25-HYDROXY AND VIT D2,25-HYDROXY. Performed By: #### C OVSC #### [facility] [address] [place] [address] GLUCOSE-POCTon 01-08-2023 Glucose [Mass/Vol] 92 mg/dL Normal 74 - 99 [facility] Comment on above: Performed By: #### G JONATHAN ####[facility] [place] [address] Operative Reports - Jing 01-08-2023 Operative Reports - [place] SURGEON: Fang Rodriguez DPM DENTAL HYGIENE INSTRUCTOR: Buzz Dexter, PGY-3. PREOPERATIVE DIAGNOSES: 1. [...] Vitoss and BIO4 bone graft substitute augment [place] dorsal 3.5 locking plate. 7-0 and 5-0 [...] Charcot neuroarthropat (more content not included)... Normal [facility] Order Reconciliationon 01-08 Order Reconciliation [...] continued as multivitamin Multiple Vitamins oral tablet M[place]uk-3 1000 mg oral capsule 1 cap(s) oral twice a day 01-Jun-2022 11:21 M[place]-3 1000 mg oral capsule 1 cap(s) oral twice a day 01-Jun-2022 11:21 Mekoryuk-3 1000 mg oral capsule is continued as [place]-3 1000 mg oral capsule turmeric 500 mg [...] tablet is (more content not included)... Normal [facility] Surgical Pathology Depar tmenton 01-08-2023 [facility] Surgical Pathology Department Name MARIE SEXTON. Pathologist: [...] reviewed this case. Diagnostic interpretation performed at [place] [address] Clinical History: Contracture of joint of both [...] largest piece is inscribed with MEDSHAPE REF [id number] LOT [id number] 07MM X 80M. Additionally received is a blue-canales metal U-shaped piece of hardware with the inscription of [id number]. Soft tissue is not received the specimen. A photograph is been taken. The specimen is for gross examination only. MJR mjr/01/09/2023 [facility] Department of Pathology [address] [place] [address] Normal [facility] Comment on above: Performed By: #### C OVSC #### [address] [place] [address] Patient Profile - Preop v3on 01-07-2023 Patient Profile - Preop v3 Patient Profile - Preop: Initial Info: Patient DemographicsName: DARSHAN April Date: 1960 Address: [address] [place], [place] [address] [address] Date/Time [id number] 12:31 Primary Phone [phone] Call Attemptedattempt 1 Instructions Giventime to arrive [...] Reactionnot applicable Health Mgmt: [facility] Barriers to Managing Healthnone Relationship/Environ: Lives Withalone Living Arrangementshouse Resource/Environmental Concernsnone [facility] Tobacco Use: Tobacco Useno Pre-op Checklist: Arrival [id number] Arrival Time08:58 Procedure TypeRIGHT GASTROCNEMIUS RECESSION/ SUBTALAR JOINT & MIDFOOT FUSION/ TIBIA PARTIAL EXCISION WITH C-ARM RIGHT FOOT DJO HARDWARE REMOVAL NPOyes Last Food [id number]-7797 20:30 Last Clear Fluid Aeymyj03-Cvg-2290 07:45 ID Band On Patientpatient ID (name), allergy, falls risk Consent Signedyes Anesthesia Assessment Completedyes EKG Performedsee results tab Chest X-Ray Performednot ordered Preop Antibioticssent to OR [facility] CommentN/A COVID 19 Results in Last 7 daysN/A Glucose [id number] Type and Screen Resultedn/a HCG Urine TestN/A [...] 08-Jan-2023 09:18 by Christopher Caceres (RN) Normal [facility] BASIC METABOLIC PANELon 02-2 Anion gap [Moles/Vol] 11 mmol/L Normal 10 - 20 [facility] Comment on above: Performed By: #### B MP #### [facility] [address] [place] [address] Calcium [Mass/Vol] 9.9 mg/dL Normal 8.6 - 10.3 [facility] Comment on above: Performed By: #### B MP #### [address] [address] Chloride [Moles/Vol] 103 mmol/L Normal 98 - 107 [facility] Comment on above: Performed By: #### B MP #### [address] [address] Creatinine [Mass/Vol] 1.01 mg/dL Normal 0.50 - 1.05 [facility] Comment on above: Performed By: #### B MP #### [address] [address] GFR/1.73 sq M.predicted among non-blacks MDRD (S/P/Bld) [Vol rate/Area] 63 mL/min/{1.73_m2} Normal >90 [facility] Comment on above: Result Comment: CALC ULATIONS OF ESTIMATED GFR ARE PERFORMED USING THE 2020 CKD-EPI STUDY REFIT EQUATION WITHOUT THE RACE VARIABLE FOR THE IDMS-TRACEABLE CREATININE METHODS. https://jasn.asnjournals.org/content/early/ASN.9429795 988 Performed By: #### B MP #### [facility] [address] [place] [address] Glucose [Mass/Vol] 120 mg/dL High 74 - 99 [facility] Comment on above: Performed By: #### B MP #### [address] [address] HCO3 (Bld) [Moles/Vol] 30 mmol/L Normal 21 - 32 [facility] Comment on above: Performed By: #### B MP #### [facility] [address] [place] [address] Potassium [Moles/Vol] 4.7 mmol/L Normal 3.5 - 5.3 [facility] Comment on above: Performed By: #### B MP #### [address] [address] Sodium [Moles/Vol] 139 mmol/L Normal 136 - 145 [facility] Comment on above: Performed By: #### B MP #### [address] [address] Urea nitrogen [Mass/Vol] 23 mg/dL Normal 6 - 23 [facility] Comment on above: Performed By: #### B MP #### [address] [address] CBC AND DIFFERENTIALon 01-05 % AUTOMATED IMMATURE GRAN 0.2 % Normal 0.0 - 0.9 [facility] Comment on above: Result Comment: Coni ture Granulocyte Count (IG) includes promyelocytes, myelocytes and metamyelocytes but does not include bands. Percent differential counts (%) should be interpreted in the context of the absolute cell counts (cells/L). Performed By: #### C BCDF ####[address] [address] Basophils (Bld) [#/Vol] 0.05 10*3/uL Normal 0.00 - 0.10 [facility] Comment on above: Performed By: #### C BCDF ####[facility] [place] [address] Basophils/100 WBC (Bld) 0.6 % Normal 0.0 - 2.0 [facility] Comment on above: Performed By: #### C BCDF ####[address] [address] Eosinophils (Bld) [#/Vol] 0.24 10*3/uL Normal 0.00 - 0.70 [facility] Comment on above: Performed By: #### C BCDF ####[address] [place] [address] Eosinophils/100 WBC (Bld) 2.8 % Normal 0.0 - 6.0 [facility] Comment on above: Performed By: #### C BCDF ####[address] [place] [address] Erythrocyte distribution width (RBC) [Ratio] 12.8 % Normal 11.5 - 14.5 [facility] Comment on above: Performed By: #### C BCDF ####[address] [place] [address] Hematocrit (Bld) [Volume fraction] 41.1 % Normal 36.0 - 46.0 [facility] Comment on above: Performed By: #### C BCDF ####[address] [place] [address] Hemoglobin (Bld) [Mass/Vol] 13.8 g/dL Normal 12.0 - 16.0 [facility] Comment on above: Performed By: #### C BCDF ####[address] [place] [address] Lymphocytes (Bld) [#/Vol] 3.56 10*3/uL Normal 1.20 - 4.80 [facility] Comment on above: Performed By: #### C BCDF ####[address] [place] [address] Lymphocytes/100 WBC (Bld) 41.4 % Normal 13.0 - 44.0 [facility] Comment on above: Performed By: #### C BCDF ####[address] [address] MCHC (RBC) [Mass/Vol] 33.6 g/dL Normal 32.0 - 36.0 [facility] Comment on above: Performed By: #### C BCDF ####[address] [place] [address] MCV (RBC) [Entitic vol] 90 fL Normal 80 - 100 [facility] Comment on above: Performed By: #### C BCDF ####[address] [place] [address] Monocytes (Bld) [#/Vol] 0.61 10*3/uL Normal 0.10 - 1.00 [facility] Comment on above: Performed By: #### C BCDF ####[address] [address] Monocytes/100 WBC (Bld) 7.1 % Normal 2.0 - 10.0 [facility] Comment on above: Performed By: #### C BCDF ####[address] [address] Neutrophils (Bld) [#/Vol] 4.11 10*3/uL Normal 1.20 - 7.70 [facility] Comment on above: Performed By: #### C BCDF ####[address] [address] Neutrophils/100 WBC (Bld) 47.9 % Normal 40.0 - 80.0 [facility] Comment on above: Performed By: #### C BCDF ####[address] [address] NUCLEATED RBC 0.0 /100 WBC Normal 0.0 - 0.0 [facility] Comment on above: Performed By: #### C BCDF ####[address] [address] Platelets (Bld) [#/Vol] 287 10*3/uL Normal 150 - 450 [facility] Comment on above: Performed By: #### C BCDF ####[address] [address] RBC 4.58 x10E12/L Normal 4.00 - 5.20 [facility] Comment on above: Performed By: #### C BCDF ####[address] [address] WBC (Bld) [#/Vol] 8.6 10*3/uL Normal 4.4 - 11.3 [facility] Comment on above: Performed By: #### C BCDF ####[address] [address] Electrocardiogram 12 Leadon 01-05-2023 Electrocardiogram 12 Lead Ventricular Rate 69 Atrial Rate 69 P-R Interval 144 QRS Duration 70 Q-T Interval 396 QTC Calculation(Bazett) 424 P Roan[place] 60 R [place]an[place] 41 T [place] 64 QRS Count 12 Q Onset 220 P Onset 148 P Offset 201 T Offset 418 QTC Fredericia 415 Diagnosis Class Normal Diagnosis Normal sinus rhythm Normal ECG When compared with ECG of 01-JUN-2022 11:38, No significant change was found Confirmed by Javed Bravo ([id number]) on 01/08/2023 3:39:12 PM Normal [facility] GLUCOSE-POCTon 08-21-2022 Glucose [Mass/Vol] 82 mg/dL Normal 74 - 99 [facility] Comment on above: Performed By: #### G JONATHAN #### [facility] [address] [place] [address] Operative Reports - [facility] 08-21-2022 Operative Reports - [place] SURGEON: Fang Rodriguez DPM DENTAL HYGIENE INSTRUCTOR: Darin Dawn, PGY-2. SECOND MANAGER EXPORT: Sirena Oconnor, PGY-3. PREOPERATIVE DIAGNOSES: 1. Anterior [...] Adaptic, gauze, and a slightly compressive short-leg akuuv-hox-rhia cast was then applied. The foot was held in dorsiflexed position at this time. The patient was then transferred to the PACU with vital signs stable and vascular status intact. COMPLICATIONS: Significant disease with tendon requiring cadaveric tendon to be used. SPECIMEN: None. Fang Rodriguez DPM EST EST DICTATION NUMBER: [id number] INTERNAL JOB NUMBER: [id number] Electronic Signatures: Fang Rodriguez) (Signed on 28-Aug-2022 08:37) Authored Unsigned, Draft (SYS GENERATED) (Entered on 22-Aug-2022 21:23) Entered Last Updated: 28-Aug-2022 08:37 by Fang Rodriguez) [facility] Order Reconciliationon 08-21 Order Reconciliation Page [...] continued as multivitamin Multiple Vitamins oral tablet M[place]-3 1000 mg oral capsule 1 cap(s) oral twice a day 01-Jun-2022 11:21 M[place]ory[place]-3 1000 mg oral capsule 1 cap(s) oral twice a day 01-Jun-2022 11:21 Mekoryuk-3 1000 mg oral capsule is continued as M[place]-3 1000 mg oral capsule turmeric 500 mg [...] mg oral (more content not included)... 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 (procedure may be cancelled if no otr tanker truck driver), remove jewerly/piercings, appropriate clothing Prep [...] Health: Weight in kg88 kilogram(s) Weight in qyc325 pound(s) Weight Methodstated Height in feet6 feet Height in inches0.95 inch(es) Height in cm185.2 centimeter(s) Height Methodstated BMI (kg/m2)25.656 square meter Patient or Family Member Reaction to Anesthesiano previous reaction Blood Avoidance/Restrictionsn one Previous Transfusion Reactionnot applicable Health Mgmt: Symptoms/[facility]itions [facility]&P Barriers to Managing Healthnone Relationship/Environ: Lives Withalone Living Arrangementshouse Resource/Environmental Concernsnone Anticipated [facility] Anticipated at [facility] Tobacco Use: Tobacco [...] 21-Aug-2022 10:45 by Sabrina Hopkins (DEMI) Normal [facility] CORONAVIRUS 2019, SCREEN ASY MPTOMATICon 08-13-2022 SARS-CoV-2 (COVID-19) RNA KING+probe Ql (Unsp spec) Not detected Normal Not Detected [facility] Comment on above: Result Comment: . This [...] patient management decisions. Fact sheet for providers: https://www.fda.gov/media/975199/download Fact sheet for patients: https://www.fda.gov/media/980883/download This test has received FDA Emergency Use Authorization (EUA) and has been verified by [facility] ([facility]). This test is only authorized for the duration of time that circumstances exist to justify the authorization of the emergency use of in vitro diagnostic tests for the detection of SARS-CoV-2 virus and/or diagnosis of COVID-19 infection under section 564(b)(1) of the Act, 21 U.S.C. 360bbb-3(b)(1), unless the authorization is terminated or revoked sooner. [facility] is certified under CLIA-88 as qualified to perform high complexity testing. Testing is performed in the [facility] laboratories located at [id number] [place] [address]. Performed By: #### C OVSC #### [facility] [id number] [place] [address]. [place] [address] Covid 19 Resultson 2 SARS-CoV-2 (COVID-19) RNA [...] You may also be contacted by the [facility] to see if any of [...] or Naproxen (Aleve) can also be used. Taew-kin-zikfppl cough and cold medicines can be used according to the instructions on the package. Some qkbp-ajb-vnpookw medicines also contain acetaminophen. Make sure you [...] water are not available, use alcohol-based hand photolith operator. Avoid touching your eyes, nose, and mouth [...] 24 chevy (more content not included)... Normal [facility] GLUCOSE-POCTon 08-13-2022 Glucose [Mass/Vol] 160 mg/dL High 74 - 99 [facility] Comment on above: Performed By: #### G JONATHAN #### [facility] [address] [place] [address] Operative Reports - [facility] 08-13-2022 Operative Reports - [place] SURGEON: Fang Rodriguez DPM MANAGER EXPORT: Sirena Oconnor, PGY-3 PREOPERATIVE DIAGNOSES: 1. Broken [...] identified and (more content not included)... Normal [facility] Order Reconciliationon 08-13 Order Reconciliation [...] continued as multivitamin Multiple Vitamins oral tablet Mekoryuk-3 1000 mg oral capsule 1 cap(s) oral twice a day 01-Jun-2022 11:21 Mekoryuk-3 1000 mg oral capsule 1 cap(s) oral twice a day 01-Jun-2022 11:21 Mekoryuk-3 1000 mg oral capsule is continued as Mekoryuk-3 1000 mg oral capsule turmeric 500 mg [...] tab(s) oral (more content not included)... Normal [facility] CORONAVIRUS 2019, SCREEN ASY MPTOMATICon 08-12-2022 Lab Specimen Source Nasal, Nasopharyngeal Normal [facility] Comment on above: Performed By: #### C OVSC #### [facility] [address] [place] [id number] Patient Profile - Preop v3on 08-12-2022 Patient Profile - Preop v3 Patient Profile - Preop: Initial Info: Patient DemographicsName: MARIE SEXTON Date: 1960 Address: [address] [place] [address] [place] [address] Date/Time [id number] 11:51 Primary Phone [phone] Call Attemptedattempt 1 Instructions Giventime to arrive [...] Withspouse Living Arrangementshouse Resource/Environmental Concernsnone Anticipated [facility] Anticipated at [facility] Tobacco Use: Tobacco Useno Pre-op Checklist: Arrival [id number] Arrival Time06:30 Procedure TypeRIGHT MIDFOOT FUSION/ REPAIR SUBLUXED TARSAL JOINT WITH C-ARM RIGHT FOOT HARDWARE REMOVAL NPOyes Last Food [id number] 22:30 Last Clear Fluid [id number] 22:30 ID Band On Patientpatient ID (name), [...] Augmentin: Drug, Unknown, Active Electronic Signatures: Christopher Caecres (DEMI) (Signed 13-Aug-2022 06:56) Authored: Initial Info, General Health, Health Mgmt, Relationship/Environ, Tobacco Use, Pre-op Checklist, Additional Information Britt Ryder) (Signed 12-Aug-2022 11:51) Authored: Initial Info, Additional Information Last Updated: 13-Aug-2022 06:56 by Christopher Caceres) Normal [facility] CBC AND DIFFERENTIALon 08-10 % AUTOMATED IMMATURE GRAN 0.4 % Normal 0.0 - 0.9 [facility] Comment on above: Result Comment: Coni ture Granulocyte Count (IG) includes promyelocytes, myelocytes and metamyelocytes but does not include bands. Percent differential counts (%) should be interpreted in the context of the absolute cell counts (cells/L). Performed By: #### C BCDF #### [facility] [address] [address] Basophils (Bld) [#/Vol] 0.05 10*3/uL Normal 0.00 - 0.10 [facility] Comment on above: Performed By: #### C BCDF #### [address] [address] Basophils/100 WBC (Bld) 0.7 % Normal 0.0 - 2.0 [facility] Comment on above: Performed By: #### C BCDF #### [address] [address] Eosinophils (Bld) [#/Vol] 0.20 10*3/uL Normal 0.00 - 0.70 [facility] Comment on above: Performed By: #### C BCDF #### [address] [address] Eosinophils/100 WBC (Bld) 2.6 % Normal 0.0 - 6.0 [facility] Comment on above: Performed By: #### C BCDF #### [address] [address] Erythrocyte distribution width (RBC) [Ratio] 12.9 % Normal 11.5 - 14.5 [facility] Comment on above: Performed By: #### C BCDF #### [address] [address] Hematocrit (Bld) [Volume fraction] 38.5 % Normal 36.0 - 46.0 [facility] Comment on above: Performed By: #### C BCDF #### [address] [address] Hemoglobin (Bld) [Mass/Vol] 12.6 g/dL Normal 12.0 - 16.0 [facility] Comment on above: Performed By: #### C BCDF #### [address] [address] Lymphocytes (Bld) [#/Vol] 2.69 10*3/uL Normal 1.20 - 4.80 [facility] Comment on above: Performed By: #### C BCDF #### [address] [address] Lymphocytes/100 WBC (Bld) 35.6 % Normal 13.0 - 44.0 [facility] Comment on above: Performed By: #### C BCDF #### [address] [address] MCHC (RBC) [Mass/Vol] 32.7 g/dL Normal 32.0 - 36.0 [facility] Comment on above: Performed By: #### C BCDF #### [address] [address] MCV (RBC) [Entitic vol] 90 fL Normal 80 - 100 [facility] Comment on above: Performed By: #### C BCDF #### [address] [address] Monocytes (Bld) [#/Vol] 0.56 10*3/uL Normal 0.10 - 1.00 [facility] Comment on above: Performed By: #### C BCDF #### [address] [address] Monocytes/100 WBC (Bld) 7.4 % Normal 2.0 - 10.0 [facility] Comment on above: Performed By: #### C BCDF #### [address] [address] Neutrophils (Bld) [#/Vol] 4.02 10*3/uL Normal 1.20 - 7.70 [facility] Comment on above: Performed By: #### C BCDF #### [address] [address] Neutrophils/100 WBC (Bld) 53.3 % Normal 40.0 - 80.0 [facility] Comment on above: Performed By: #### C BCDF #### [address] [address] NUCLEATED RBC 0.0 /100 WBC Normal 0.0 - 0.0 [facility] Comment on above: Performed By: #### C BCDF #### [address] [address] Platelets (Bld) [#/Vol] 360 10*3/uL Normal 150 - 450 [facility] Comment on above: Performed By: #### C BCDF #### [facility] [address] [place] [address] RBC 4.27 x10E12/L Normal 4.00 - 5.20 [facility] Comment on above: Performed By: #### C BCDF #### [facility] [address] [place] [address] WBC (Bld) [#/Vol] 7.6 10*3/uL Normal 4.4 - 11.3 [facility] Comment on above: Performed By: #### C BCDF #### [facility] [address] [place] [address] COMPREHENSIVE PANELon 2021 Albumin [Mass/Vol] 4.2 g/dL Normal 3.4 - 5.0 [facility] Comment on above: Performed By: #### C MP #### [facility] [address] [place] [address] ALP [Catalytic activity/Vol] 77 U/L Normal 33 - 136 [facility] Comment on above: Performed By: #### C MP #### [facility] [address] [place] [address] ALT [Catalytic activity/Vol] 14 U/L Normal 7 - 45 [facility] Comment on above: Result Comment: Shaista ents treated with Sulfasalazine may generate falsely decreased results for ALT. Performed By: #### C MP #### [facility] [address] [place] [address] Anion gap [Moles/Vol] 13 mmol/L Normal 10 - 20 [facility] Comment on above: Performed By: #### C MP #### [facility] [address] [place] [address] AST [Catalytic activity/Vol] 18 U/L Normal 9 - 39 [facility] Comment on above: Performed By: #### C MP #### [facility] [address] [place] [address] Bilirubin [Mass/Vol] 0.3 mg/dL Normal 0.0 - 1.2 [facility] Comment on above: Performed By: #### C MP #### [facility] [address] [place] [address] Calcium [Mass/Vol] 10.0 mg/dL Normal 8.6 - 10.6 [facility] Comment on above: Performed By: #### C MP #### [facility] [address] [place] [address] Chloride [Moles/Vol] 105 mmol/L Normal 98 - 107 [facility] Comment on above: Performed By: #### C MP #### [facility] [address] [place] [address] Creatinine [Mass/Vol] 1.14 mg/dL High 0.50 - 1.05 [facility] Comment on above: Performed By: #### C MP #### [facility] [address] [place] [address] GFR/1.73 sq M.predicted among non-blacks MDRD (S/P/Bld) [Vol rate/Area] 55 mL/min/{1.73_m2} Abnormal >90 [facility] Comment on above: Result Comment: CALC ULATIONS OF ESTIMATED GFR ARE PERFORMED USING THE 2020 CKD-EPI STUDY REFIT EQUATION WITHOUT THE RACE VARIABLE FOR THE IDMS-TRACEABLE CREATININE METHODS. https://jasn.asnjournals.org/content//ASN.0349307 988 Performed By: #### C MP #### [facility] [address] [place] [address] Glucose [Mass/Vol] 87 mg/dL Normal 74 - 99 [facility] Comment on above: Performed By: #### C MP #### [facility] [address] [place] [address] HCO3 (Bld) [Moles/Vol] 28 mmol/L Normal 21 - 32 [facility] Comment on above: Performed By: #### C MP #### [facility] [address] [place] [address] Potassium [Moles/Vol] 4.0 mmol/L Normal 3.5 - 5.3 [facility] Comment on above: Performed By: #### C MP #### [facility] [address] [place] [address] Protein [Mass/Vol] 7.5 g/dL Normal 6.4 - 8.2 [facility] Comment on above: Performed By: #### C MP #### [facility] [address] [place] [address] Sodium [Moles/Vol] 142 mmol/L Normal 136 - 145 [facility] Comment on above: Performed By: #### C MP #### [facility] [address] [place] [address] Urea nitrogen [Mass/Vol] 21 mg/dL Normal 6 - 23 [facility] Comment on above: Performed By: #### C MP #### [facility] [address] [place] [address] HEMOGLOBIN A1Con 07-31-2022 Glucose [Mass/Vol] 105 mg/dL Normal [facility] Comment on above: Performed By: #### C OVSC #### [facility] [address] [place] [address] HbA1c (Bld) [Mass fraction] 5.3 % Normal [facility] Comment on above: Result Comment: Diag nosis of Diabetes-Adults Non-Diabetic: < or = 5.6% Increased risk for developing diabetes: 5.7-6.4% Diagnostic of diabetes: > or = 6.5% . Monitoring of Diabetes Age (y) Therapeutic Goal (%) Adults: >18 <7.0 Pediatrics: 13-18 <7.5 7-12 <8.0 0- 6 7.5-8.5 [place] [employer]. Diabetes Care 33(S1), Nov 2009. Performed By: #### C OVSC #### [place] [address] [place] [address] LDL, DIRECTon 07-31-2022 Cholesterol in LDL [Mass/Vol] 95 mg/dL Normal 0 - 129 [facility] Comment on above: Result Comment: Elev ated levels of LDL cholesterol are recognized as a fisher factor in the development of atherosclerosis and CHD. The direct LDL cholesterol test can be used to assess cardiovascular risk and monitor therapy as a follow up to a lipid profile when triglycerides are significantly elevated. Performed By: #### C OVSC #### [facility] [address] [place] [address] LIPID PANEL (CORONARY RISK 2 )on 07-31-2022 Cholesterol [Mass/Vol] 152 mg/dL Normal 0 - 199 [facility] Comment on above: Result Comment: . AGE [...] Performed By: #### C OVSC #### [facility] [address] [place] [address] Cholesterol in HDL [Mass/Vol] 36.6 mg/dL Abnormal [facility] Comment on above: Result Comment: . AGE VERY LOW LOW NORMAL HIGH 0-19 Y < 35 < 40 40-45 ---- 20-24 Y ---- < 40 >45 ---- >24 Y ---- < 40 40-60 >60 . Performed By: #### C OVSC #### [facility] [address] [place] [address] Cholesterol in LDL [Mass/Vol] 79 mg/dL Normal 0 - 99 [facility] Comment on above: Result Comment: . NEAR BORD AGE DESIRABLE OPTIMAL HIGH HIGH VERY HIGH 0-19 Y 0 - 109 --- 110-129 >/= 130 ---- 20-24 Y 0 - 119 --- 120-159 >/= 160 ---- >24 Y 0 - 99 100-129 130-159 160-189 >/=190 . Performed By: #### C OVSC #### [facility] [address] [place] [address] Cholesterol in VLDL [Mass/Vol] 37 mg/dL Normal 0 - 40 [facility] Comment on above: Performed By: #### C OVSC #### [facility] [address] [place] [address] Cholesterol.total/Ch olesterol in HDL [Mass ratio] 4.2 {ratio} Normal [facility] Comment on above: Result Comment: REF VALUES DESIRABLE < 3.4 HIGH RISK > 5.0 Performed By: #### C OVSC #### [facility] [address] [place] [address] Triglyceride [Mass/Vol] 183 mg/dL High 0 - 149 [facility] Comment on above: Result Comment: . AGE [...] dosing. Performed By: #### C OVSC #### [facility] [address] [place] [address] TSHon 07-31-2022 TSH Qn 1.32 m[IU]/L Normal 0.44 - 3.98 [facility] Comment on above: Result Comment: TSH testing is performed using different testing methodology at [facility] than at other [facility]. Direct result comparisons should only be made within the same method. Performed By: #### A LBSP #### [facility] [address] [place] [address] GLUCOSE-POCTon 06-05-2022 Glucose [Mass/Vol] 128 mg/dL High 74 - 99 [facility] Comment on above: Performed By: #### G JONATHAN #### [address] [place] [address] Operative Reports - [place] 06-05-2022 Operative Reports - [place] SURGEON: Fang Rodriguez, DPM 1ST MANAGER EXPORT: Josias Oliveros, PGY-3. 2ND MANAGER EXPORT: Ly Sheikh, PGY-2. PREOPERATIVE DIAGNOSES: 1. Right [...] a tissue protector was inserted and a [employer] saber blade was utilized to transect the [...] joint was then distracted with a lamina fitter mechanic and the joint was prepared utilizing a combination of rongeur, osteotome, curette, subchondral drilling and fish scaling was performed until there was healthy bleeding bone. The incision was flushed. It was packed with bone graft substitute mixed with PRP and the joint was then closed in layers with Vicryl and Prolene suture. The subtalar joint nail was then inserted per resident care spec's recommended technique an 80 mm nail along [...] stressed under (more content not included)... Normal [facility] Order Reconciliationon 06-05 Order Reconciliation [...] continued as multivitamin Multiple Vitamins oral tablet M[place]ory[place]-3 1000 mg oral capsule 1 cap(s) oral twice a day 01-Jun-2022 11:21 M[place]-3 1000 mg oral capsule 1 cap(s) oral twice a day 01-Jun-2022 11:21 M[place]uk-3 1000 mg oral capsule is continued as M[place]-3 1000 mg oral capsule turmeric 500 mg [...] mg oral (more content not included)... 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 (procedure may be cancelled if no otr tanker truck driver), center location, remove jewerly/piercings, time [...] Health: Weight in kg89.3 kilogram(s) Weight in xox452.8 pound(s) Weight Methodactual (measured) Scale Typestanding Height [...] child(mehul) Living Arrangementshouse Resource/Environmental Concernsnone Anticipated Transition [facility] Anticipated at Transitionnone Tobacco Use: Tobacco Useyes Last Tobacco [id number] Number of Packs per Day1 Pre-op Checklist: Procedure Typeright foot NPOyes Last Food [id number] 19:00 Last Clear Fluid [id number] 07:00 ID Band On Patientpatient ID (name), [...] 05-Jun-2022 08:36 by Torrie Landaverde (RN) Normal [facility] BASIC METABOLIC PANELon 07- Anion gap [Moles/Vol] 12 mmol/L Normal 10 - 20 [facility] Comment on above: Performed By: #### B MP #### [address] [address] Calcium [Mass/Vol] 9.8 mg/dL Normal 8.6 - 10.3 [facility] Comment on above: Performed By: #### B MP #### [address] [address] Chloride [Moles/Vol] 103 mmol/L Normal 98 - 107 [facility] Comment on above: Performed By: #### B MP #### [address] [address] Creatinine [Mass/Vol] 0.94 mg/dL Normal 0.50 - 1.05 [facility] Comment on above: Performed By: #### B MP #### [address] [address] GFR/1.73 sq M.predicted among non-blacks MDRD (S/P/Bld) [Vol rate/Area] 69 mL/min/{1.73_m2} Normal >90 [facility] Comment on above: Result Comment: CALC ULATIONS OF ESTIMATED GFR ARE PERFORMED USING THE 2020 CKD-EPI STUDY REFIT EQUATION WITHOUT THE RACE VARIABLE FOR THE IDMS-TRACEABLE CREATININE METHODS. https://jasn.asnjournals.org/content//ASN.0551463 988 Performed By: #### B MP #### [address] [place] [address] Glucose [Mass/Vol] 129 mg/dL High 74 - 99 [facility] Comment on above: Performed By: #### B MP #### [facility] [address] [place] [address] HCO3 (Bld) [Moles/Vol] 28 mmol/L Normal 21 - 32 [facility] Comment on above: Performed By: #### B MP #### [address] [address] Potassium [Moles/Vol] 4.2 mmol/L Normal 3.5 - 5.3 [facility] Comment on above: Performed By: #### B MP #### [address] [address] Sodium [Moles/Vol] 139 mmol/L Normal 136 - 145 [facility] Comment on above: Performed By: #### B MP #### [address] [address] Urea nitrogen [Mass/Vol] 22 mg/dL Normal 6 - 23 [facility] Comment on above: Performed By: #### B MP #### [address] [address] CBC AND DIFFERENTIALon 06-01 % AUTOMATED IMMATURE GRAN 0.4 % Normal 0.0 - 0.9 [facility] Comment on above: Result Comment: Coni ture Granulocyte Count (IG) includes promyelocytes, myelocytes and metamyelocytes but does not include bands. Percent differential counts (%) should be interpreted in the context of the absolute cell counts (cells/L). Performed By: #### C BCDF #### [address] [address] Basophils (Bld) [#/Vol] 0.05 10*3/uL Normal 0.00 - 0.10 [facility] Comment on above: Performed By: #### C BCDF #### [address] [place] [address] Basophils/100 WBC (Bld) 0.7 % Normal 0.0 - 2.0 [facility] Comment on above: Performed By: #### C BCDF #### [facility] [address] [place] [address] Eosinophils (Bld) [#/Vol] 0.21 10*3/uL Normal 0.00 - 0.70 [facility] Comment on above: Performed By: #### C BCDF #### [facility] [address] [place] [address] Eosinophils/100 WBC (Bld) 2.9 % Normal 0.0 - 6.0 [facility] Comment on above: Performed By: #### C BCDF #### [address] [place] [address] Erythrocyte distribution width (RBC) [Ratio] 12.7 % Normal 11.5 - 14.5 [facility] Comment on above: Performed By: #### C BCDF #### [address] [place] [address] Hematocrit (Bld) [Volume fraction] 39.5 % Normal 36.0 - 46.0 [facility] Comment on above: Performed By: #### C BCDF #### [address] [place] [address] Hemoglobin (Bld) [Mass/Vol] 13.4 g/dL Normal 12.0 - 16.0 [facility] Comment on above: Performed By: #### C BCDF #### [address] [place] [address] Lymphocytes (Bld) [#/Vol] 3.00 10*3/uL Normal 1.20 - 4.80 [facility] Comment on above: Performed By: #### C BCDF #### [facility] [address] [place] [address] Lymphocytes/100 WBC (Bld) 41.3 % Normal 13.0 - 44.0 [facility] Comment on above: Performed By: #### C BCDF #### [facility] [address] [place] [address] MCHC (RBC) [Mass/Vol] 33.9 g/dL Normal 32.0 - 36.0 [facility] Comment on above: Performed By: #### C BCDF #### [place] [address] [address] MCV (RBC) [Entitic vol] 88 fL Normal 80 - 100 [facility] Comment on above: Performed By: #### C BCDF #### [address] [address] Monocytes (Bld) [#/Vol] 0.52 10*3/uL Normal 0.10 - 1.00 [facility] Comment on above: Performed By: #### C BCDF #### [address] [address] Monocytes/100 WBC (Bld) 7.2 % Normal 2.0 - 10.0 [facility] Comment on above: Performed By: #### C BCDF #### [address] [address] Neutrophils (Bld) [#/Vol] 3.46 10*3/uL Normal 1.20 - 7.70 [facility] Comment on above: Performed By: #### C BCDF #### [address] [address] Neutrophils/100 WBC (Bld) 47.5 % Normal 40.0 - 80.0 [facility] Comment on above: Performed By: #### C BCDF #### [address] [address] NUCLEATED RBC 0.0 /100 WBC Normal 0.0 - 0.0 [facility] Comment on above: Performed By: #### C BCDF #### [address] [address] Platelets (Bld) [#/Vol] 266 10*3/uL Normal 150 - 450 [facility] Comment on above: Performed By: #### C BCDF #### [address] [address] RBC 4.49 x10E12/L Normal 4.00 - 5.20 [facility] Comment on above: Performed By: #### C BCDF #### [address] [address] WBC (Bld) [#/Vol] 7.3 10*3/uL Normal 4.4 - 11.3 [facility] Comment on above: Performed By: #### C BCDF #### [facility] [address] [place] [address] MAMM DIGITAL SCRN BILATERALo n 02-10-2021 MAMM [...] ARMIJO MD Signed Out: 02/10/21 18:21:51 Normal [facility] Hematologyon 03-20-2019 Hematocrit Volume Fraction (Bld) 40.5 % See Below [facility] [place] Work Phone: Comment on above: Reference Range: 36. 0 - 46.0 Hemoglobin mass conc (Bld) 13.3 g/dL See Below [facility] [place] Work Phone: Comment on above: Reference Range: 12. 0 - 16.0 MCV Entitic volume (RBC) 94 fL 80 - 100 [facility] [place]view Work Phone: Platelets #/vol (Bld) 252 {x10E9/L} 150 - 450 [facility] [place] Work Phone: RBC #/vol (Bld) 4.33 {x10E12/L} See Below Gabby [facility] dview Work Phone: Comment on above: Reference Range: 4.0 0 - 5.20 WBC #/vol (Bld) 0.0 {/100_WBC} 0.0-0.0 [facility] [place] Work Phone: WBC #/vol (Bld) 6.6 {x10E9/L} 4.4 - 11.3 [facility] [place]view Work Phone: IO Hgb A1Con 03-20-2019 HbA1c (Bld) [Mass fraction] 7.1 % 4.4-6.4% [facility] a 1057 Work Phone: Lipid Panelon 03-20-2019 Cholesterol in HDL mass conc 35.3 mg/dL Abnormal [facility] a 1057 Work Phone: Comment on above: . AGE VERY LOW LOW N ORMAL HIGH 0-19 Y < 35 < 40 40-45 ---- 20- 24 Y ---- < 40 >45 ---- >24 Y ---- < 40 40-60 >60. Cholesterol in LDL mass conc 86 mg/dL 0 - 99 [facility] a 1057 Work Phone: Comment on above: . NEAR BORD AGE JOHNATHON RABLE OPTIMAL HIGH HIGH VERY HIGH 0-19 Y 0 - 109 --- 110-129 >/= 130 ---- 20-24 Y 0 - 119 --- 120-159 >/= 160 ---- >24 Y 0 - 99 100-129 130-159 160-189 >/=190. Cholesterol mass conc 173 mg/dL 0 - 199 [facility] a 1051 Work Phone: Comment on above: [...] Cholesterol non HDL mass conc 138 mg/dL [facility] a 1795 Work Phone: Comment on above: AGE DESIRABLE BORDER LINE HIGH HIGH VERY HIGH 0-19 Y 0 - 119 120 - 144 >/= 145 >/= 160 20-24 Y 0 - 149 150 - 189 >/= 190 ---- >24 Y 30 MG/DL ABOVE LDL CHOLESTEROL GOAL. Cholesterol.total/Ch olesterol in HDL mass ratio 4.9 {ratio} [facility] a 1059 Work Phone: Comment on above: REF VALUESDESIRABLE < 3.4HIGH RISK > 5.0 Triglyceride mass conc 261 mg/dL above high threshold 0 - 149 [facility] a 1050 Work Phone: Comment on above: . AGE [...] mg/dL above high threshold 0 - 40 [facility] a 1057 Work Phone: Metabolic Panelon 03-20-2019 ALP enzyme act/vol 63 U/L 33 - 110 [facility] a 1057 Work Phone: Anion gap molar conc 13 mmol/L 10 - 20 MP-U [facility] a 1057 Work Phone: Bilirubin mass conc 0.4 mg/dL 0.0 - 1.2 [facility] a 1057 Work Phone: Calcium mass conc 9.8 mg/dL 8.6 - 10.6 [facility] a 1057 Work Phone: Chloride molar conc 99 mmol/L 98 - 107 [facility] a 1057 Work Phone: CO2 molar conc 34 mmol/L above high threshold 21 - 32 [facility] a 1055 Work Phone: Creatinine mass conc 0.87 mg/dL See Below -[facility] a 1056 Work Phone: Comment on above: Reference Range: 0.5 0 - 1.05 Glucose mass conc 152 mg/dL above high threshold 74 - 99 [facility] a 1057 Work Phone: Potassium molar conc 3.7 mmol/L 3.5 - 5.3 MP[facility]U [facility] a 1057 Work Phone: Protein mass conc 7.2 g/dL 6.4 - 8.2 [facility] a 1057 Work Phone: Sodium molar conc 142 mmol/L 136 - 145 [facility] a 1057 Work Phone: Urea nitrogen mass conc 18 mg/dL 6 - 23 [facility] a 1057 Work Phone: Otheron 03-20-2019 Albumin Bromocresol purple (BCP) dye binding method mass conc 4.3 g/dL 3.4 - 5.0 [facility] a 1057 Work Phone: ALT With P-5'-P enzyme act/vol 46 U/L above high threshold 7 - 45 [facility] a 1057 Work Phone: Comment on above: Patients treated wit h Sulfasalazine may generate falsely decreased results for ALT. AST With P-5'-P enzyme act/vol 32 U/L 9 - 39 [facility] a 1057 Work Phone: Erythrocyte distribution width Ratio (RBC) 13.2 % See Below [facility] Janette [facility] dview Work Phone: Comment on above: Reference Range: 11. 5 - 14.5 MCHC mass conc (RBC) 32.8 g/dL See Below MP-U [facility] dview Work Phone: Comment on above: Reference Range: 32. 0 - 36.0 >60 >60 [facility] a 1057 Work Phone: Comment on above: CALCULATIONS OF LUIS MATED GFR ARE PERFORMED USING THE MDRD STUDY EQUATION FOR THE IDMS-TRACEABLE CREATININE METHODS. CLIN CHEM 2007;53:766-72 T4 - Free Thyroxine, Serumon 03-20-2019 T4 free mass conc 1.08 ng/dL See Below [facility] & [facility] [address] Work Phone: Comment on above: Reference Range: 0.7 8 - 1.48 Thyroxine Free testing is performed using different testing methodology at [facility] than at other [facility]. Direct result comparisons should only be made within the same method.. Patients receiving more than 5 mg/day of biotin may have interference in test results. A sample should be taken no sooner than eight hours after previous dose. Contact [phone] for additional information. TSH - Thyroid Stimulating Ho rmone, Serumon 03-20-2019 Thyrotropin Qn 3.22 {mIU/L} See Below [facility] a 7004 Work Phone: Comment on above: Reference Range: 0.4 4 - 3.98 TSH testing is performed using different testing methodology at [facility] than at other [facility]. Direct result comparisons should only be made within the same method.. Patients receiving more than 5 mg/day of biotin may have interference in test results. A sample should be taken no sooner than eight hours after previous dose. Contact [phone] for additional information. Vital Signs Date Time Vital Sign Value Performing Clinician Jorge duong 05-12-2023 09:24-0400 Body height 185.4 cm Pac 1 Work Phone: [facility] 05-12-2023 09:24-0400 Body temperature 98.2 [degF] Pac 1 Work Phone: [facility] 05-12-2023 09:24-0400 Body weight 91.17 kg Pac 1 Work Phone: [facility] 05-12-2023 09:24-0400 Diastolic blood pressure 79 mm[Hg] Pac 1 Work Phone: [facility] 05-12-2023 09:24-0400 Heart rate 75 /min Pacc 1 Work Phone: [facility] 05-12-2023 09:24-0400 Respiratory rate 18 /min Pacc 1 Work Phone: [facility] 05-12-2023 09:24-0400 SaO2% (BldA) [Mass fraction] 95 % Pacc 1 Work Phone: [facility] 05-12-2023 09:24-0400 Systolic blood pressure 136 mm[Hg] Pacc 1 Work Phone: [facility] 05-07-2023 14:25-0400 Diastolic blood pressure 66 mm[Hg] Dana Goyal MD Work Phone: [facility] 05-07-2023 14:25-0400 Heart rate 68 /min Dana Goyal MD Work Phone: [facility] 05-07-2023 14:25-0400 Systolic blood pressure 120 mm[Hg] Dana Goyal MD Work Phone: [facility] 03-20-2019 11:15-0400 BMI (Body Mass Index) 25.46 kg/m2 Collins Savage [facility] Sa tony & Bronson [facility] 1057 Work Phone: 03-20-2019 11:15-0400 Body Temperature 98.7 [degF] Collins Savage [facility] Ely is & rafaele [facility] 1057 Work Phone: 03-20-2019 11:15-0400 Body weight 87.54 kg Collins Savage [facility] Bulmaro s & victor m [facility] 1057 Work Phone: 03-20-2019 11:15-0400 BP Diastolic 84 mm[Hg] Collins [facility] Bulmaro s & [facility] 1057 Work Phone: 03-20-2019 11:15-0400 BP Systolic 126 mm[Hg] Collins Chamberlainlake [facility] Saridaki s & [facility] 1057 Work Phone: 03-20-2019 11:15-0400 BSA (Body Surface Area) 2.12 m2 Collins Chamberlainlake WANG Sarporshas & [facility] 1057 Work Phone: 03-20-2019 11:15-0400 Height 185.42 cm Collins [facility] Saridaki s & [facility] 1057 Work Phone: 03-20-2019 11:15-0400 Pulse (Heart Rate) 71 /min Collins Monaenavin WANG Escobar akis & [facility] 1057 Work Phone: 03-20-2019 11:15-0400 Pulse Oximetry 96 % Collins Monaenavin [facility] Saridaki s & [facility] 1057 Work Phone: 03-20-2019 11:15-0400 Respiratory Rate 14 /min Collins Chamberlainlake [facility] Saridak is & [facility] 1057 Work Phone: 03-20-2019 11:15-0400 Weight 87.54 kg Collins Chamberlainlake WANG Sarjessicaki s & [facility] 1057 Work Phone: Encounters Encounter Date Encounter Type Care Provider Facility Start: 03-13-2024 End: 03-14-2024 ambulatory COLLINS ANDREWS [facility] Start: 03-09-2024 End: 03-09-2024 ambulatory Zuhair Grubbs Facility:[facility] Start: 03-09-2024 End: 03-09-2024 ambulatory DPM Zuhair Grubbs Work Phone: [facility] Work Phone: Start: 03-09-2024 End: 03-09-2024 Departed Referred DPM Zuhair Grubbs Work Phone: [facility] Start: 02-28-2024 Refill Macario Armstrongerty DPM Work Phone: Orthopedics Comment on above: Refill Request Start: 01-25-2024 Refill Macario Monaeugherty DPM Work Phone: Orthopedics Comment on above: Refill Request Start: 01-17-2024 End: 01-17-2024 ambulatory MACARIO SANTOS Facility:[facility] Start: 01-10-2024 Refill Macario Armstrongerty DPM Work Phone: Orthopedics Comment on above: Refill Request Start: 12-29-2023 Refill Macario Armstrongerty DPM Work Phone: Medical Records Comment on above: Refill Request Start: 12-08-2023 Refill Macario Armstrongerty DPM Work Phone: Medical Records Comment on above: Refill Request Start: 11-26-2023 End: 11-27-2023 ambulatory [facility] Start: 11-25-2023 End: 11-25-2023 ambulatory MACARIO SANTOS Facility:[facility] Start: 11-10-2023 End: 11-10-2023 ambulatory [facility] Facility:[facility] Start: 11-03-2023 Encounter for other preprocedural examination MACARIO SANTOS [facility] Start: 11-03-2023 End: 11-03-2023 ambulatory MACARIO SANTOS Facility:[facility] Start: 10-25-2023 Refill Macario Armstrongerty DPM Work Phone: Orthopedics Comment on above: Refill Request Start: 10-25-2023 Refill Macario Armstrongerty DPM Work Phone: Orthopedics Comment on above: Refill Request Start: 10-18-2023 End: 10-19-2023 ambulatory [facility] Facility:[facility] Start: 10-14-2023 End: 10-14-2023 ambulatory MACARIO SANTOS Facility:[facility] Start: 10-11-2023 End: 10-11-2023 ambulatory Nikki Chritsel RT(R) Radiology Comment on above: Radiology XR Start: 10-11-2023 Patient encounter procedure Nikki Kearney RT(R) [facility] Start: 09-29-2023 Refill Macario Santos DPM Work Phone: Orthopedics Comment on above: Refill Request Start: 09-27-2023 ambulatory Macario Santos DPM Work Phone: Orthopedics Comment on above: Updated X-rays Start: 09-27-2023 E-mail encounter fro m caregiver Macario Santos DPM Work Phone: [facility] Start: 09-06-2023 End: 09-06-2023 ambulatory Gia Kilgore RT(R) Radiology Comment on above: Radiology XR Start: 09-06-2023 End: 09-06-2023 Patient encounter procedure Gia Pawan Kilgore RT(R) [facility] Comment on above: Diabetes mellitus du e to underlying condition with diabetic autonomic neuropathy, with long-term current use of insulin (HCC) (Primary Dx); Post-op pain; Charcot ankle, right; Osteonecrosis (HCC) Start: 08-05-2023 End: 08-05-2023 ambulatory Rosie Elizondo RT(R) Radiology Comment on above: Radiology XR Start: 08-05-2023 Patient encounter procedure Rosie Elizondo RT(R) [facility] Start: 07-28-2023 Orders Only Macario Santos DPM Work Phone: [facility] [place] Comment on above: Disease of bone (Rima teena Dx) Start: 07-21-2023 Refill Macario Santos DPM Work Phone: [facility] Comment on above: Refill Request Start: 07-07-2023 Refill Macario Santos DPM Work Phone: Orthopedics Start: 07-02-2023 End: 07-02-2023 ambulatory MACARIO SANTOS Facility:[facility] Start: 07-02-2023 End: 07-02-2023 Patient encounter procedure Macario Santos DPM Work Phone: [facility] Comment on above: Disorder of bone (Pr imary Dx); Charcot ankle, right Start: 07-02-2023 End: 07-02-2023 Subsequent hospital visit by physician Xr [facility] Radiology Comment on above: Charcot ankle, right [M14.671] Start: 06-17-2023 Refill Macario Santos DPM Work Phone: Medical Records Comment on above: Refill Request Start: 06-07-2023 End: 06-07-2023 ambulatory MACARIO SANTOS Facility:[facility] Start: 06-07-2023 End: 06-07-2023 ambulatory MACARIO SANTOS Facility:[facility] Start: 06-04-2023 Refill Macario Santos DPM Work Phone: Orthopedics Start: 06-02-2023 Refill Macario Santos DPM Work Phone: Medical Records Comment on above: Refill Request Start: 05-27-2023 End: 05-27-2023 ambulatory COLLINS ANDREWS Facility:[facility] Start: 05-27-2023 End: 05-27-2023 Patient encounter procedure Cast Tech Fairivew Work Phone: [facility] Comment on above: Charcot ankle, right (Primary Dx) Start: 05-26-2023 ambulatory Macario Santos DPM Work Phone: [facility] Comment on above: Cast is wet Start: 05-23-2023 Telephone encounter Kaylyn amin PROP WORKER[employer]E STRIPPER Work Phone: [facility] Adult Comment on above: Follow Up Start: 05-19-2023 Telephone encounter Brigette parks RN [facility] Operating Room Comment on above: Follow Up Start: 05-17-2023 End: 05-18-2023 Evaluation and management of inpatient MACARIO SANTOS Facility:[facility] Start: 05-14-2023 Encounter for preprocedural cardiovascular examination MACARIO SANTOS [facility] Start: 05-14-2023 End: 05-14-2023 ambulatory DANA GOYAL Facility:[facility] Start: 05-14-2023 End: 05-14-2023 Patient encounter status Card Injection Molecular Imagi ng Start: 05-14-2023 End: 05-14-2023 Subsequent hospital visit by physician Card Injection Molecular Imaging Comment on above: Preoperative cardiov ascular examination [Z01.810] Start: 05-14-2023 End: 05-14-2023 ambulatory DANA GOYAL Facility:[facility] Start: 05-12-2023 End: 05-12-2023 Evaluation and management of inpatient MACARIO SANTOS Facility:[facility] Start: 05-12-2023 End: 05-12-2023 Admission to [facility] Pacc [place] 1 Work Phone: [facility] Start: 05-12-2023 End: 05-12-2023 ambulatory Pacc [place] 1 Work Phone: Pre Anesthesia Comment on above: Pre-op exam (Primary Dx); Diabetes mellitus type 2 with neurological manifestations (HCC); Former smoker; Intermittent asthma without complication, unspecified asthma severity Start: 05-12-2023 End: 05-12-2023 Preprocedural examination done Pacc [place] 1 Work Phone: Pre Anesthesia Start: 05-07-2023 End: 05-07-2023 ambulatory DANA GOYAL Facility:[facility] Start: 05-07-2023 End: 05-07-2023 Office outpatient new 45 minutes Dana Goyal MD Work Phone: Cardiology Comment on above: PAD (peripheral charity ry disease) (HCC) (Primary Dx); Preoperative cardiovascular examination; Diabetes mellitus type 2 with neurological manifestations (HCC); Former smoker Start: 05-07-2023 End: 05-07-2023 Patient encounter status Dana Goyal MD Work Phone: Cardiology Start: 05-05-2023 Orders Only Macario Santos DPM Work Phone: [facility] Comment on above: Osteonecrosis (HCC) (Primary Dx); Charcot ankle, right; Retained orthopedic hardware; Deformity of ankle joint, right Surgical Follow Up Refill Request Start: 05-03-2023 End: 05-03-2023 ambulatory SORTO ODELL SANTOS Facility:[facility] Start: 05-03-2023 End: 05-03-2023 Patient encounter procedure Macario Santos DPM Work Phone: [facility] Comment on above: Osteonecrosis (HCC) (Primary Dx); Charcot ankle, right; Retained orthopedic hardware Start: 04-22-2023 End: 04-22-2023 ambulatory SORTO ODELL SANTOS Facility:[facility] Start: 04-22-2023 End: 04-22-2023 ambulatory SORTO ODELL SANTOS Facility:[facility] Start: 04-22-2023 End: 04-22-2023 Patient encounter procedure Macario Santos DPM Work Phone: Orthopedics Comment on above: Osteonecrosis (HCC) (Primary Dx); Charcot ankle, right Start: 04-20-2023 Orders Only Sortochandu Monaedong DPM Work Phone: [facility] Comment on above: Charcot's joint of [...] mellitus with diabetic peripheral angiopathy without gangrene ([facility]); Unspecified asthma, uncomplicated; Type 2 diabetes mellitus with diabetic polyneuropathy ([facility]); Depression, unspecified; Irritable bowel syndrome without diarrhea; Hypothyroidism, unspecified; Unspecified osteoarthritis, unspecified site; Unspecified visual loss; Unspecified hearing loss, unspecified ear; Personal history of nicotine dependence; retirement (current) use of 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 drugs Start: 03-17-[address] Fang Rodriguez Facility:[id number] Start: 03-17-2023 Encounter for preprocedural laboratory examination Dr. Fang Rodriguez [facility] Start: 01-08-2023 End: 01-08-[address] Fang Rodriguez Facility:[id number] Start: 01-05-[address] Fang Rodriguez Facility:[id number] Start: 01-05-2023 Encounter for preprocedural cardiovascular examination Dr. Fang Rodriguez [facility] Start: 08-21-2022 End: 08-21-[address] Fang Rodriguez Facility:[id number] Start: 08-13-2022 End: 08-13-[address] Fang Rodriguez Facility:[id number] Start: 08-10-[address] Fang Rodriguez Facility:[id number] Start: 06-05-2022 End: 06-05-[address] Fang Rodriguez Facility:[id number] Start: 06-01-[address] Fang Rodriguez Facility:[id number] Start: 02-04-2021 End: 02-04-2021 Orders Only Fang Fan Work Phone: [facility] [place] Comment on above: Pain (Primary Dx) Start: 02-23-2020 Patient encounter procedure Collins Savage [facility] Janette & Roberto [facility] 1059 Work Phone: Start: 11-20-2019 Patient encounter procedure Collins Savage [facility] 1051 Work Phone: Start: 08-16-2019 Patient encounter procedure Collins Savage [facility] Janette & [facility] 1057 Work Phone: Start: 06-22-2019 Patient encounter procedure Collins Savage [facility] 1057 Work Phone: Start: 03-20-2019 Patient encounter procedure Collins Savage [facility] 1057 Work Phone: Start: 01-26-2019 Nursing evaluation o f patient and report Collins Savage [facility] Janette & [facility] 1057 Work Phone: Start: 11-04-2018 Patient encounter procedure Collins Chamebrlainlake [facility] 1057 Work Phone: Start: 03-03-2018 Patient encounter procedure Collins Monaenavin [facility] 1057 Work Phone: Start: 03-03-2018 Ambulatory Collins Savage [facility] ity:[facility] Start: 07-05-2017 Patient encounter procedure Collins Savage [facility] 1057 Work Phone: Start: 03-25-2017 Patient encounter procedure Collins Chamberlainlake [facility] 1057 Work Phone: Encounter for gynecological examination (general) (routine) without abnormal findings Collins Monaenavin [facility] 1057 Work Phone: Procedures [...] 03-19-2025 Screening for malignant neoplasm of colon [facility] Start: 11-26-2024 Hepatitis B surface antibody level LDL Cholesterol [facility] Start: 07-27-2024 Hepatitis B surface antibody level LDL Cholesterol [facility] Start: 07-27-2024 Lipid panel Lipid Panel [facility] Start: 07-27-2024 Thyroid stimulating hormone measurement TSH Level [facility] Start: 07-16-2024 Influenza vaccination Influenz a Vaccine (Season Ended) [facility] Start: 05-26-2024 Hemoglobin A1c measurement HbA1C [facility] Start: 05-07-2024 BP CONTROLLED (<130/80) BP CONTROLLED (<130/80) [facility] Start: 05-04-2024 Hemoglobin A1c measurement HbA1C [facility] Start: 01-25-2024 Hemoglobin A1c measurement HbA1C [facility] Start: 11-15-2023 Behavioral Health Screening Behavioral Health Screening [facility] Start: 11-15-2023 Depression Assessment Depression Ass essment [facility] Start: 10-26-2023 Hemoglobin A1c measurement Diabetes: Hemoglobin A1C [facility] Start: 07-16-2023 Covid-19 Vaccine ( season) Covid-19 Vaccine ( season) [facility] Start: 07-16-2023 [facility] Start: 05-07-2023 End: 06-05-2024 NM CARDIAC PERF STRESS/PHARM NM CARDIAC PERF STRESS/PHARM Radiology Routine Preoperative cardiovascular examination Expected: 05/07/2023, Expires: 06/05/2024 [facility] Work Phone: Comment on above: Expected: 05/07/2023 , Expires: 06/05/2024 Start: 05-07-2023 End: 05-07-2024 [facility] Vascular Lab Routine PAD (peripheral artery disease) (HCC) Expected: 05/07/2023, Expires: 05/07/2024 [facility] Work Phone: Comment on above: Expected: 05/07/2023 , Expires: 05/07/2024 Start: 05-07-2023 End: 05-07-2024 US LEG ARTERIAL PERIPH [facility] US LEG ARTERIAL PERIPH [facility] Vascular Lab Routine PAD (peripheral artery disease) (HCC) Expected: 05/07/2023, Expires: 05/07/2024 [facility] Work Phone: Comment on above: Expected: 05/07/2023 , Expires: 05/07/2024 Start: 11-15-2022 DEPRESSION ASSESSMENT DEPRESSION ASS ESSMENT [facility] Start: 2021 Hepatitis B Vaccine (1 of 3 - Risk 3-dose series) Hepatitis B Vaccine (1 of 3 - Risk 3-dose series) [facility] Start: 2021 RSV Vaccine (1 - 1-dose 60+ series) RSV Vaccine (1 - 1-dose 60+ series) [facility] Start: 07-16-2020 Influenza vaccination INFLUENZA (#1) [facility] Start: 03-25-2020 Screening for malignant neoplasm of [facility] Start: 02-23-2020 [facility] Ilana tavares [facility] 1055 Work Phone: Start: 09-20-2019 Hemoglobin A1c/Hemoglobin.total in Blood HBA1C [facility] Start: 03-20-2019 MG Breast screening Mamm - Scr eening Mammogram w/ Tomosynthesis [facility] 1052 Work Phone: Start: 03-20-2019 Xray Bone Dens ity, Dexa 1 or More Sites [facility] 1056 Work Phone: Start: 10-13-2014 HbA1c (Bld) [Mass fraction] HBA1C [facility] Start: 2011 Screening for malignant neoplasm of colon [facility] Start: 2011 SHINGRIX VACCINE (1 of 2) SHINGRIX VACCINE (1 of 2) [facility] Start: 2011 Zoster Vaccines (1 o f 2) Zoster Vaccines (1 of 2) [facility] Start: 2006 COLOGUARD (FIT-DNA) COLOGUARD (FIT-D NA) [facility] Start: 2006 Colonoscopy COLONOSCOPY [facility] Start: 2006 COLORECTAL CANCER SCREENING COLORECTAL CANCER SCREENING [facility] Start: [address] COLONOGRAPHY [facility] Start: 2006 FECAL OCCULT BLOOD FECAL OCCULT BLOO D [facility] Start: 2006 Screening for malignant neoplasm of colon [facility] Start: 2006 SIGMOIDOSCOPY SIGMOIDOSCOPY [facility] Start: 2003 PAP TESTING PAP TESTING [facility] Start: 2001 Mammography [facility] Start: 2001 Screening for malignant neoplasm of breast [facility] Start: 1991 HPV TESTING HPV TESTING [facility] Start: 1991 Screening for malignant neoplasm of cervix HPV Testing [facility] Start: 1983 DTaP/Tdap/Td Vaccine s (1 - Tdap) DTaP/Tdap/Td Vaccines (1 - Tdap) [facility] Start: 1982 PAP TESTING PAP TESTING [facility] Start: 1982 Screening for malignant neoplasm of cervix [facility] Start: 02-08-1980 Urine microalbumin profile [facility] Start: 1979 ANNUAL PCP TEAM CHRONIC DISEASE VISIT ANNUAL PCP TEAM CHRONIC DISEASE VISIT [facility] Start: 1979 BP CONTROLLED (<130/80) BP CONTROLLED (<130/80) [facility] Start: 1979 Hepatitis B surface antibody level LDL CHOLESTEROL [facility] Start: 1979 HEPATITIS C SCREENING HEPATITIS C [facility] Start: 1979 Hepatitis C screening Hepatitis C [facility] Start: 1979 HIV SCREENING HIV SCREENING [facility] Start: 1979 HIV screening [facility] Start: 1979 SPIROMETRY SPIROMETRY [facility] Start: 1977 ONE PNEUMOVAX PRIOR TO AGE 65 ONE PNEUMOVAX PRIOR TO AGE 65 [facility] Start: 1973 Adult depression screening assessment DEPRESSION SCREENING [facility] Start: 1971 [object Object] DIABETIC FOOT EXAM [facility] Start: 1971 Diabetic foot examination [facility] Start: 1971 Glaucoma screening [facility] Start: 1971 Hepatitis B screening URINE ALBUMIN:CREATININE RATIO [facility] Start: 1971 Hepatitis C antibody , confirmatory test DILATED RETINAL EXAM [facility] Start: 1967 PNEUMOCOCCAL (1 - PCV) PNEUMOCOCCAL (1 - PCV) [facility] Start: 1967 Pneumococcal vaccination [facility] Start: 1967 Pneumococcal Vaccine : Pediatrics (0 to 5 Years) and At-Risk Patients (6 to 64 Years) (1 - PCV) Pneumococcal Vaccine: Pediatrics (0 to 5 Years) and At-Risk Patients (6 to 64 Years) (1 - PCV) [facility] Start: 1962 MMR Vaccines (1 of 1 - Standard series) MMR Vaccines (1 of 1 - Standard series) [facility] Start: 1961 COVID-19 VACCINE (#1) COVID-19 VACCI NE (#1) [facility] Start: 1961 HIV screening HIV Screening [facility] Start: 1961 Screening for malignant neoplasm of colon [facility] Start: 1961 Yearly Adult Physical Yearly Adult P hysical [facility] End: 07-31-2024 MRI ANKLE WO IVCON LEFT MRI ANKLE WO IVCON LEFT Radiology Routine Disorder of bone 1 Occurrences starting 07/02/2023 until 07/31/2024 [facility] Work Phone: Comment on above: 1 Occurrences starti ng 07/02/2023 until 07/31/2024 End: 03-06-2022 Radex ankle complete minimum 3 views XR ANKLE GENERAL 3V AP/LAT/OBL BILAT Radiology Routine Pain 1 Occurrences starting 02/05/2021 until 03/06/2022 [facility] Comment on above: 1 Occurrences starti ng 02/05/2021 until 03/06/2022 End: 03-06-2022 Radex foot complete minimum 3 views XR FOOT GENERAL 3V AP/LAT/OBL RT Radiology Routine Pain 1 Occurrences starting 02/05/2021 until 03/06/2022 [facility] Comment on above: 1 Occurrences starti ng 02/05/2021 until 03/06/2022 End: 07-31-2024 XR ANKLE GENERAL 3V AP/LAT/OBL LEFT XR ANKLE GENERAL 3V AP/LAT/OBL LEFT Radiology Routine Disorder of bone 1 Occurrences starting 07/02/2023 until 07/31/2024 [facility] Work Phone: Comment on above: 1 Occurrences starti ng 07/02/2023 until 07/31/2024 End: 05-19-2024 XR ANKLE GENERAL 3V AP/LAT/OBL RIGHT XR ANKLE GENERAL 3V AP/LAT/OBL RIGHT Radiology Routine Charcot's joint of right ankle 1 Occurrences starting 04/20/2023 until 05/19/2024 [facility] Work Phone: Comment on above: 1 Occurrences starti ng 04/20/2023 until 05/19/2024 End: 07-03-2024 XR ANKLE GENERAL 3V AP/LAT/OBL RIGHT XR ANKLE GENERAL 3V AP/LAT/OBL RIGHT Radiology Routine Charcot ankle, right 1 Occurrences starting 06/04/2023 until 07/03/2024 [facility] Work Phone: Comment on above: 1 Occurrences starti ng 06/04/2023 until 07/03/2024 XR ANKLE GENERAL 3V AP/LAT/OBL RIGHT XR ANKLE GENERAL 3V AP/LAT/OBL RIGHT Radiology Routine Charcot ankle, right 07/02/2023 10:35 AM EDT [facility] Work Phone: End: 08-26-2024 XR ANKLE GENERAL 3V AP/LAT/OBL RIGHT XR ANKLE GENERAL 3V AP/LAT/OBL RIGHT Radiology Routine Disease of bone 1 Occurrences starting 07/28/2023 until 08/26/2024 [facility] Work Phone: Comment on above: 1 Occurrences starti ng 07/28/2023 until 08/26/2024 End: 09-28-2024 XR ANKLE GENERAL 3V AP/LAT/OBL RIGHT XR ANKLE GENERAL 3V AP/LAT/OBL RIGHT Radiology Routine Diabetes mellitus due to underlying condition with diabetic autonomic neuropathy, with long-term current use of insulin (HCC) 1 Occurrences starting 08/30/2023 until 09/28/2024 [facility] Work Phone: Comment on above: 1 Occurrences starti ng 08/30/2023 until 09/28/2024 XR ANKLE GENERAL 3V AP/LAT/OBL RIGHT XR ANKLE GENERAL 3V AP/LAT/OBL RIGHT Radiology Routine Diabetes mellitus due to underlying condition with diabetic autonomic neuropathy, with long-term current use of insulin (HCC) 09/06/2023 1:28 PM EDT [facility] Work Phone: End: 10-05-2024 XR FOOT GENERAL 3V AP/LAT/OBL BILATERAL XR FOOT GENERAL 3V AP/LAT/OBL BILATERAL Radiology Routine Diabetes mellitus due to underlying condition with diabetic autonomic neuropathy, with long-term current use of insulin ([facility]) 1 Occurrences starting 09/06/2023 until 10/05/2024 [facility] Work Phone: Comment on above: 1 Occurrences starti ng 09/06/2023 until 10/05/2024 End: 05-19-2024 XR TIBIA FIBULA 2V AP/LAT LEFT XR TIBIA FIBULA 2V AP/LAT LEFT Radiology Routine Leg abscess 1 Occurrences starting 04/20/2023 until 05/19/2024 [facility] Work Phone: Comment on above: 1 Occurrences starti ng 04/20/2023 until 05/19/2024 [facility] Janette Roberto [facility] 1057 Work Phone: [facility] NEGATED: Highlighted row has been ruled out! Planned Goals not documented [facility] Vipul [facility] Laura7 Work Phone: Payers Date Payer Category Payer Self-pay 2021 Unknown 2021 Unknown [id number] 2020 Medicaid MEDICAID [facility] MEDICAID [id number] 2020-Present Medicaid [id number] 2020 Medicaid MEDICAID [facility] MEDICAID [id number] 2020-Present [phone] [address] [place] [address] Medicaid [id number] 2020 Medicaid [id number] 2016 Medicare MEDICARE MEDICAR E A AND B [id number] 2016-Present [place], [place] Medicare [id number] 2016 Medicare MEDICARE MEDICAR E A AND B [id number] 2016-Present [phone] [address] [address] [place] [address] Medicare [id number] 1961 Unknown [id number] 1961 Unknown [id number] 1961 Unknown [id number] 1961 Unknown [id number] 1961 Unknown [id number] 1961 Unknown [id number] 1961 Unknown [id number] 1961 Unknown [id number] 1961 Unknown [id number] 1961 Unknown [id number] 1961 Unknown [id number] Social History Date Type Detail Facility Start: 06-27-2014 End: 05-12-2023 Tobacco smoking status RIIS Former smoker [facility] End: 04-24-2009 History of tobacco use Current smoker [facility] End: 04-24-2009 History of tobacco use Cigarette Smoker [facility] Start: 06-27-2014 End: 05-07-2023 Cigarettes smoked current (pack per day) - Reported [facility] Start: 06-27-2014 End: 11-25-2023 Alcohol intake Current drinker of alcohol (finding) [facility] Start: 1960 Sex Assigned At Not on file [facility] Exposure to SARS-CoV-2 (event) Not sure [facility] Start: 1960 [facility] Assigned At [facility] Start: 05-07-2023 End: 05-17-2023 Tobacco use panel [facility] National Score (1-100), lower number is lower risk 81 [facility] Start: 04-20-2023 Gender identity Identifies as female gender (finding) [facility] Tobacco smoking status RIIS Tobacco smoking consumption unknown [facility] Work Phone: Start: 11-03-2023 Alcohol Comment not on a weekly basi s [facility] NEGATED: Highlighted row - Former smoker - V[facility] 1057 Work Phone: Medical Equipment Procedure Code [...] 08-Mar-2014 Active 100 Unit Box Start: 03-08-2014 Zub-Pa-S-Kind Implant - [id number] Start: 06-29-2011 Comment on above: Description: K-WIRE Nir-Kl-W-Kind Implant - [id number] Start: 04-24-2014 Comment on above: Description: THREADE D GUIDE WIRE Screw Bn 2.4mm 3 0mm Ti Cmf Lag - [id number] Start: 06-29-2011 Comment on above: Description: OSTEOME D CANNULATED SCREW Screw Bn 4mm 44m m Lcp Ti St - [id number] Start: 04-24-2014 Phantom 2.0 Acti vcor Nil [id number] Start: 05-17-2023 Phantom Nail Crossing Screw 5.0mm X 26mm Length Headed [id number] Start: 05-17-2023 Graft, Flexigraf t, Hamstring, Smi Tendinosus, Frozen Case [id number] Start: 12-09-2021 Comment on above: Description: Convert ed from [facility]. Please see archived information for full log information. Paste Mix Plus, 5cc Case [id number] Start: 06-05-2022 Comment on above: Description: Convert ed from [facility]. Please see archived information for full log information. Bone, Cancellous , Crushed, .1-4mm 15cc, Freeze Dried Case [id number] Start: 08-13-2022 Comment on above: Description: Convert ed from [facility]. Please see archived information for full log information. Graft, Flexigraf t, Hamstring, Smi Tendinosus, Frozen Case [id number] Start: 10-07-2022 Comment on above: Description: Convert ed from [facility]. Please see archived information for full log information. 22 Mm Concave Re amer Case [id number] Start: 12-09-2021 Comment on above: Description: Convert ed from [facility]. Please see archived information for full log information. Dynaclip Procedu re Pack Case [id number] Start: 06-05-2022 Comment on above: Description: Convert ed from [facility]. Please see archived information for full log information. 2.7 Overdrill Ca se [id number] Start: 08-13-2022 Comment on above: Description: Convert ed from [facility]. Please see archived information for full log information. Quick Whip Stitc h Case [id number] Start: 08-21-2022 Comment on above: Description: Convert ed from [facility]. Please see archived information for full log information. Cement Simplex Gentamicin Bone High Viscosity 20ml Sterile 40gm - [id number] Start: 11-10-2023 Phantom Nail Crossing Screw [...] status health issues are not documented Disease [facility] 105 Work Phone: Mental Status Date Assessment Result Facility NEGATED: Highlighted row Cognitive function [Interpretation] Cognitive status health issues are not documented Disease [facility] 1058 Work Phone: Clinical Notes 05-06-2021 to 11-25-2023 Nikki Kearney, ([place]) - 10/11/2023 12:28 PM Macario Sykes DPM - 09/06/2023 2:17 PM EDTCarter, Gia Pawan, RT(R) - 09/06/2023 1:31 PM KatiuskaRosie Pawan, RT(R) - 08/05/2023 2:15 PM EDT Note Date & Type Note Facility 11-25-2023 Note HNO ID: [id number] Author: MACARIO SANTOS DPM Service: ? Author [...] reflux, constipation, diarrhea, (more content not included)... [facility] 11-10-2023 Note HNO ID: [id number] Author: Donell Boateng Service: Pharmacy Author Type: ? Type: Plan of Care Filed: 11/11/2023 10:18 AM Note Text: PHARMACY BEDSIDE DELIVERY SERVICE Patient Name: Marie Sexton The marked outpatient medications were filled at [facility] pharmacy and picked up at the [...] your Primary Care Provider. Donell Boateng PAGER: [phone] November 11, 2023 10:18 AM [facility] 11-10-2023 Note HNO ID: [id number] Author: Olivia Faulkner APRN.PSYCHIATRIC CNS Service: Anesthesiology Author Type: Nurse Engraver Jewelry Type: Anesthesia Procedure Notes Filed: 11/10/2023 1:12 PM Note Text: ANESTHESIOLOGY PROCEDURE NOTE Airway General Information Procedure Start Time/Medication Administration: 11/10/2023 1:06 PM Patient location during procedure: OR Patient identity confirmed: arm band and patient Staffing PSYCHIATRIC CNS: Olivia Faulkner APRN.PSYCHIATRIC CNS Performed by: LYDIA Indications and Patient Condition [...] November 10, 2023 TIME: 1:11 PM CSN: [id number] [facility] 11-10-2023 Note HNO ID: [id number] Author: Dheeraj Rodrigues DO Service: Pain Management [...] November 10, 2023 TIME: 1:00 PM CSN: [id number] [facility] 11-10-2023 Note HNO ID: [id number] Author: Dheeraj Rodrigues DO Service: Pain Management [...] November 10, 2023 TIME: 12:57 PM CSN: [id number] [facility] 10-14-2023 Note HNO ID: [id number] Author: Cleo Aragon RT(R) Service: ? Author Type: Hack Driver Type: Progress Notes Filed: 10/14/2023 11:46 AM [...] RT Dev(R) October 14, 2023 11:44 AM [facility] 10-11-2023 Note HNO ID: [id number] Author: Macario Santos DPM Service: ? Author [...] bilateral. Capillary r (more content not included)... [facility] 10-11-2023 Note HNO ID: [id number] Author: Nikki Kearney RT(R) Service: ? Author [...] RT Amelia(R) October 11, 2023 12:28 PM [facility] 10-11-2023 History of Present illness Narrative Radiology [...] 2023 12:28 PM documented in this encounter [facility] 09-06-2023 Note HNO ID: [id number] Author: Macario Santos DPM Service: ? Author [...] as noted below. (more content not included)... [facility] 09-06-2023 Note HNO ID: [id number] Author: Gia Kilgore RT(R) Service: ? Author [...] RT Marivel(R) September 06, 2023 1:31 PM [facility] 09-06-2023 History of Present illness Narrative Images [...] the right foot and ankle as described. Educational Consultant: SUBHASH Transcribe Date/Time: Apr 22 2023 4:18P... Last MRI Ankle - Impression Only MRI ANKLE WO IVCON RT Exam End: 04/29/2021 11:40 AM (Final result) Impression: IMPRESSION: POSTERIOR TIBIALIS TENOSYNOVITIS. 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 ABNORMAL APPEARANCES OF THE SPRING LIGAMENT AND CALCANEOFIBULAR LIGAMENT. FINDINGS SUGGESTIVE OF MILD PLANTAR FASCIITIS. DIABETIC MUSCLE ATROPHY. Educational Consultant: SUBHASH ... Last MRI Foot - Impression [...] which included preparing to see the patient, [id number] patient care, completing clinical documentation, obtaining and/or reviewing separately obtained history, performing a medically appropriate examination, counseling and educating the patient/family/caregiver, and ordering medications, tests, or procedures. documented in this encounter [facility] 09-06-2023 History of Present illness Narrative Radiology [...] 2023 1:31 PM documented in this encounter [facility] 08-05-2023 Note HNO ID: [id number] Author: Macario Santos DPM Service: ? Author [...] Tibial pulses ar (more content not included)... [facility] 08-05-2023 Note HNO ID: [id number] Author: Rosie Elizondo RT(R) Service: ? Author [...] RT Anup(R) August 05, 2023 2:15 PM [facility] 08-05-2023 History of Present illness Narrative Radiology [...] 2023 2:15 PM documented in this encounter [facility] 07-02-2023 Note HNO ID: [id number] Author: Macario Santos DPM Service: ? Author [...] and ROS ob (more content not included)... [facility] 07-02-2023 Note HNO ID: [id number] Author: Omayra Padgett RT(R) Service: ? Author [...] RT Radhames(R) July 02, 2023 10:42 AM [facility] 07-02-2023 History of Present illness Narrative [...] the right foot and ankle as described. Educational Consultant: SUBHASH Transcribe Date/Time: Apr 22 2023 4:18P... Last MRI Ankle - Impression Only MRI ANKLE WO IVCON RT Exam End: 04/29/2021 11:40 AM (Final result) Impression: IMPRESSION: POSTERIOR TIBIALIS TENOSYNOVITIS. 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 ABNORMAL APPEARANCES OF THE SPRING LIGAMENT AND CALCANEOFIBULAR LIGAMENT. FINDINGS SUGGESTIVE OF MILD PLANTAR FASCIITIS. DIABETIC MUSCLE ATROPHY. Educational Consultant: SUBHASH ... Last MRI Foot - Impression [...] which included preparing to see the patient, zmgr-[id number]-rbmh patient care, completing clinical documentation, obtaining and/or reviewing separately obtained history, performing a medically appropriate examination, counseling and educating the patient/family/caregiver, and ordering medications, tests, or procedures. documented in this encounter [facility] 07-02-2023 History of Present illness Narrative Radiology [...] 2023 10:42 AM documented in this encounter [facility] 07-02-2023 Miscellaneous Notes RADIOLOGY SERVICE PROGRESS NOTE DATE OF SERVICE: July 02, 2023 TIME OF SERVICE: 10:03AM EVENT: ARRIVED IN WHEELCHAIR ADDITIONAL EVENT DETAILS: NA SIGNATURE: Francesca Kaur PATIENT NAME: Marie Sexton DATE: July 02, 2023 TIME: 10:12 AM PAGER/CONTACT #: documented in this encounter [facility] 06-07-2023 Note HNO ID: [id number] Author: Mahendra Prajapati MA Service: ? Author Type: Substation Operator Transforming Type: Progress Notes Filed: 06/07/2023 2:52 PM Note Text: Marie presents today for splint removal. Marie's splint was removed and skin cleansed. Marie tolerated this procedure well. Directed Marie and daughter to xray prior to appt w/ Dr. Santos. Mahendra Prajapati MA Splint was removed by Lorranie Yancey RN [facility] 06-07-2023 Note HNO ID: [id number] Author: Macario Santos DPM Service: ? Author [...] anxiety or eula (more content not included)... [facility] 06-07-2023 Note HNO ID: [id number] Author: Sudha Wadsworth RT(R) Service: ? Author [...] RT Rod(R) June 07, 2023 12:07 PM [facility] 06-03-2023 Miscellaneous Notes Message from [employer]: Refills have been requested for the following medications: oxyCODONE-acetaminophen (PERCOCET) 5-325 mg tablet [Dr. Greg Santos] Preferred pharmacy: [facility] [address] [place], [place] [id number] - [id number] [facility] Delivery method: Pickup documented in this encounter [facility] 05-27-2023 Note HNO ID: [id number] Author: Regi Cherry Ma Service: ? Author [...] expressed thanks and understanding. Regi Cherry Ma [facility] 05-27-2023 History of Present illness Narrative [...] Regi Cherry Ma documented in this encounter [facility] 05-26-2023 Miscellaneous Notes Contacted patient and scheduled a Cast room appointment on 05/27/2023. Patient calling in stating that her cast is wet and she is trying to dry it with a blow mccann. She is asking what should she do? Please call patient can be reached at [phone] Thank you documented in this encounter [facility] 05-23-2023 Miscellaneous Notes Attempted to call pt to check on status of CADD pump. No answer, left detailed VM. Kaylyn London APRN.GERALDO documented in this encounter [facility] 05-19-2023 Miscellaneous Notes Pt is POD# 2. S/P Right Leg removal of deep hardware Right Ankle fusion Right subtalar joint fusion Fibular osteotomy right ankle [place] of bone marrow autograft right leg with [...] Mara Stallworth RN Acute Pain Management Service [facility] documented in this encounter [facility] 05-18-2023 Note HNO ID: [id number] Author: Giselle Nguyen RN Service: Care Management [...] 18, 2023 TIME: 10:00 AM CONTACT #: [phone] [facility] 05-17-2023 Note HNO ID: [id number] Author: Simin Cervantes RPh Service: Pharmacy Author Type: Pharmacist Type: Plan of Care Filed: 05/17/2023 6:43 PM Note Text: PHARMACY MEDICATION REVIEW Patient Name: Marie Sexton : 1960 The following medications were updated within the TRAUMA MANAGER medication list: Medications ADDED to TRAUMA MANAGER medication list Oxycodone-acetaminophen Humalog mix 75-25 Medications CHANGED on TRAUMA MANAGER medication list Gabapentin Fluoxetine Lantus Levothyroxine Medications REMOVED from TRAUMA MANAGER medication list Trazodone Hydrocodone-acetaminophen Turmeric (duplicate) [...] Yes Completed by: Simin Cervantes PharmD All TRAUMA MANAGER medications addressed by LIP Patient interested in Bedside Delivery Services or using OP Pharmacy at discharge? Unable to assess Preferred outpatient pharmacy: [facility] [address] [place] [address] [facility] [phone] Allergies: Codeine GI Upset Demerol [Meperidine* [...] as needed (for insomnia.). Facility-Administered Medications: None iSmin Cervantes RPh 05/17/2023 [facility] 05-17-2023 Note HNO ID: [id number] Author: Francesca Young RN Service: Nursing Author Type: Registered Nurse Type: Nursing Progress Note Filed: 05/17/2023 3:54 PM Note Text: Report to DEMI Jaffe resuming care of patient. [facility] 05-17-2023 Note HNO ID: [id number] Author: Carlos Barbour MD Service: Anesthesiology Author [...] May 17, 2023 TIME: 1:51 PM CSN: [id number] [facility] 05-17-2023 Note HNO ID: [id number] Author: Carlos Barbour MD Service: Anesthesiology Author [...] specimen collected. Minimal or no blood loss Larzaogb1h/transfer criteria are met upon discharge. SIGNATURE: Carlos Barbour MD PATIENT NAME: Marie Sexton DATE: May 17, 2023 TIME: 1:50 PM CSN: [id number] [facility] 05-17-2023 Note HNO ID: [id number] Author: Ramiro Smith MD Service: Anesthesiology Author [...] May 17, 2023 TIME: 8:19 AM CSN: [id number] [facility] 05-17-2023 Note HNO ID: [id number] Author: Ramiro Smith MD Service: Anesthesiology Author [...] May 17, 2023 TIME: 8:17 AM CSN: [id number] [facility] 05-17-2023 Note HNO ID: [id number] Author: SÁNCHEZ Junior Service: ? Author Type: Design Engineering Specialist Type: Anesthesia Procedure Notes Filed: 05/17/2023 8:16 [...] May 17, 2023 TIME: 8:15 AM CSN: [id number] [facility] 05-17-2023 Note HNO ID: [id number] Author: Brigette Stallworth RN Service: Pain Management Author Type: Registered Nurse Type: Nursing Progress Note Filed: 05/17/2023 7:40 AM Note Text: Patient tolerated procedure very well. Report to primary nurse. [facility] 05-14-2023 Note HNO ID: [id number] Author: RT Myesha(R) Service: Nuclear Medicine Author [...] STATUS: Discontinued PROCEDURE TYPE: NM Stress: 13.1mCi Vo87d-Degnlbu was administered IV for Rest Imaging at 1145 by Juana BUTLER,RT(N). 33.3 mCi Ak28t-Rzfmbvy was administered IV for Stress Imaging at 1311 by RT Myesha(R). PATIENT DISCHARGED TO: Ambulatory patient, left NM department area. A Diagnostic radioactive procedure has taken place, with no further precautions necessary other than routine body substance precautions. More information regarding radiation safety can be found using this link: [email or web address]/envi ronmental/[email or web address]/[email or web address]/Rad%20P rotection %20-%20Diagnostic%20Nuclear%20Med icine%20Procedures.pdf SIGNATURE: RT Genet(R) PATIENT NAME: Aprilrad DATE: May 14, 2023 TIME: 11:48 AM PAGER/CONTACT #: [facility] 05-14-2023 Note HNO ID: [id number] Author: Mai Valencia RN Service: Radiology Author [...] ALLERGIES: Reviewed and unchanged MEDICATIONS REVIEWED BY: Skoog Operator PROCEDURE TYPE: NM STRESS: 0.4 mg of [...] safety can be found using this link: [email or web address].i/envi ronmental/[email or web address]/files/Rad%20P rotection %20-%20Diagnostic%20Nuclear%20Med icine%20Procedures.pdf SIGNATURE: Mai Valencia RN PATIENT NAME: April DATE: May 14, 2023 TIME: 1:04 PM PAGER/CONTACT #:[phone] [facility] 05-14-2023 History of Present illness Narrative RADIOLOGY [...] STATUS: Discontinued PROCEDURE TYPE: NM Stress: 13.1mCi Wm74h-Lepiqfw was administered IV for Rest Imaging at 1145 by Juana BUTLER,RT(N). 33.3 mCi Gv01x-Vhmsvqx was administered IV for Stress Imaging at 1311 by RT Myesha(R). PATIENT DISCHARGED TO: Ambulatory patient, left NM department area. A Diagnostic radioactive procedure has taken place, with no further precautions necessary other than routine body substance precautions. More information regarding radiation safety can be found using this link: [email or web address] [email or web address]%20P rotection%20-%20Diagnostic%20Nucl ear%20Medicine%20Procedures.pdf SIGNATURE: Lucero Cruz RT(R) [...] ALLERGIES: Reviewed and unchanged MEDICATIONS REVIEWED BY: Skoog Operator PROCEDURE TYPE: NM STRESS: 0.4 mg of [...] safety can be found using this link: [email or web address] rotection%20-%20Diagnostic%20Nucl ear%20Medicine%20Procedures.pdf SIGNATURE: Mai Valencia RN PATIENT NAME: April Darshan DATE: May 14, 2023 TIME: 1:04 PM PAGER/CONTACT #:[phone] documented in this encounter [facility] 05-12-2023 Instructions Indiana Clemens PA-C - 05/12/2023 9:32 AM EDT PATIENT PREOPERATIVE INSTRUCTIONS Macario Santos* has scheduled you for your procedure at this surgery center: [facility]: [phone] --[id number] [address]. Please check in on the 1st floor [...] coffee creamer - NO pulp juices (ex. Friant juice) Is Patient Diabetic:Yes Preoperative Instructions for [...] Procedures: - YOU MUST HAVE A RESPONSIBLE BOOT LACE CUTTER MACHINE TAKE YOU HOME. A EQUAL OPPORTUNITY DIRECTOR OR MIRROR SILVERER CANNOT BE MADE A RESPONSIBLE BOOT LACE CUTTER MACHINE. - We recommend that a responsible person [...] Advance Directive, please fax a copy to [phone] or email to for it to be [...] Indiana Clemens PA-C documented in this encounter [facility] 05-12-2023 History and physical note HISTORY AND [...] fevers. Neuro: No history of TIA's, stroke, CREATIVE SERVICES MANAGER tumor, impaired sensorium, hemiplegia, paraplegia or quadraplegia. No neurological symptoms or problems. + peripheral neuropathy Respiratory: No history of current cough or dyspnea, or pneumonia in the past 6 weeks. No history of respiratory/pulmonary symptoms or problems. + former smoker + asthma uses inhalers PRN Cardiovascular: No history of HTN requiring medication, no history of angina, CHF, AL, cardiac surgery or stents. Denies rest pain, gangrene or revascularization/amputation for PVD. No history of cardiovascular symptoms or problems. + swelling foot on HCTZ GI: No history of GI symptoms or problems. No history of esophageal varices, recent ascites, or ETOH greater than 2 drinks per day. : No difficulty urinating, nocturia > 1 time per night or hematuria DICTATING MACHINE TYPIST: Negative for abnormal vaginal bleeding, abnormal vaginal [...] TIME: 9:19 AM documented in this encounter [facility] 05-07-2023 Note HNO ID: [id number] Author: Dana Goyal MD Service: ? Author Type: Physician Type: Progress Notes Filed: 05/07/2023 3:11 PM Note Text: [facility] [place] Natalia Shrestha Department of Cardiovascular Medicine SECTION OF INTERVENTIONAL CARDIOLOGY OUTPATIENT VISIT DATE 05/07/2023 OUTPATIENT VISIT TYPE New PRIMARY CARE PHYSICIAN: Collins Andrews ([facility]) [address] [place] [address] REFERRING PHYSICIAN: No referring provider defined for [...] were not included. [facility] [place] Natalia Shrestha Department of Cardiovascular Medicine SECTION OF INTERVENTIONAL CARDIOLOGY OUTPATIENT VISIT DATE 05/07/2023 OUTPATIENT VISIT TYPE New PRIMARY CARE PHYSICIAN: Collins Andrews ([facility]) [address] [place], [place] [id number] REFERRING PHYSICIAN: No referring provider defined for [...] of Cardiovascular Medicine [facility] [place] [facility] Office Office Pager [phone] documented in this encounter [facility] 05-05-2023 Miscellaneous Notes pharmacy scheduler spoke to patient with her daughter(Jennifer) regarding 05/17/23 surgery with . Will also review on [employer]. documented in this encounter [facility] 05-03-2023 Note HNO ID: [id number] Author: Macario Santos DPM Service: ? Author [...] are palpable b (more content not included)... [facility] 05-03-2023 History of Present illness Narrative [...] the hindfoot and midfoot without complication identified. Educational Consultant: SUBHASH Transcribe Date/Time: Apr 23 2023 4:47P... Last CT Foot - Impression Only No resulted procedures found. Last CT Ankle - Impression Only CT ANKLE WO IVCON RIGHT Exam End: 04/22/2023 3:55 PM (Final result) Impression: IMPRESSION: Intact postoperative changes of the right foot and ankle as described. Educational Consultant: SUBHASH Transcribe Date/Time: Apr 22 2023 4:18P... Last MRI Ankle - Impression Only MRI ANKLE WO IVCON RT Exam End: 04/29/2021 11:40 AM (Final result) Impression: IMPRESSION: POSTERIOR TIBIALIS TENOSYNOVITIS. 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 ABNORMAL APPEARANCES OF THE SPRING LIGAMENT AND CALCANEOFIBULAR LIGAMENT. FINDINGS SUGGESTIVE OF MILD PLANTAR FASCIITIS. DIABETIC MUSCLE ATROPHY. Educational Consultant: SUBHASH ... Last MRI Foot - Impression [...] which included preparing to see the patient, fqhv-du-tnql patient care, completing clinical documentation, obtaining and/or reviewing separately obtained history, performing a medically appropriate examination, counseling and educating the patient/family/caregiver, and ordering medications, tests, or procedures. documented in this encounter [facility] 04-22-2023 Note HNO ID: [id number] Author: RT Moisés(Aristides) Service: ? Author Type: [...] RT Moisés(R) April 22, 2023 3:56 PM [facility] 04-22-2023 Note HNO ID: [id number] Author: RT Anup(R) Service: ? Author Type: [...] RT Anup(R) April 22, 2023 2:27 PM [facility] 04-22-2023 Note HNO ID: [id number] Author: Macario Santos DPM Service: ? Author [...] have confirmed an (more content not included)... [facility] 04-22-2023 History of Present illness Narrative Images [...] the hindfoot and midfoot without complication identified. Educational Consultant: SUBHASH Transcribe Date/Time: Apr 23 2023 4:47P... Last CT Foot - Impression Only No resulted procedures found. Last CT Ankle - Impression Only CT ANKLE WO IVCON RIGHT Exam End: 04/22/2023 3:55 PM (Final result) Impression: IMPRESSION: Intact postoperative changes of the right foot and ankle as described. Educational Consultant: SUBHASH Transcribe Date/Time: Apr 22 2023 4:18P... Last MRI Ankle - Impression Only MRI ANKLE WO IVCON RT Exam End: 04/29/2021 11:40 AM (Final result) Impression: IMPRESSION: POSTERIOR TIBIALIS TENOSYNOVITIS. 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 ABNORMAL APPEARANCES OF THE SPRING LIGAMENT AND CALCANEOFIBULAR LIGAMENT. FINDINGS SUGGESTIVE OF MILD PLANTAR FASCIITIS. DIABETIC MUSCLE ATROPHY. Educational Consultant: SUBHASH ... Last MRI Foot - Impression [...] which included preparing to see the patient, mxns-co-fnbh patient care, completing clinical documentation, obtaining and/or reviewing separately obtained history, performing a medically appropriate examination, counseling and educating the patient/family/caregiver, and ordering medications, tests, or procedures. documented in this encounter [facility] 03-22-2023 Note History & Physical R eviewed: [...] the note. I personally evaluated the patient [id number] Electronic Signatures: Sirena Oconnor (FLASH (Resident)) (Signed 22-Mar-2023 12:37) Authored: History & Physical Reviewed, ERAS, Consent, Note Completion Fang Rodriguez) (Signed 22-Mar-2023 13:06) Authored: Note Completion Co-Signer: History & Physical Reviewed, ERAS, Consent, Note Completion Last Updated: 22-Mar-2023 13:06 by Fang Rodriguez) [facility] 03-22-2023 History and physical note [...] Fang Rodriguez (FLASH) documented in this encounter [facility] Work Phone: 08-21-2022 Note History & [...] the note. I personally evaluated the patient [id number] Electronic Signatures: Darin Myers (FLASH (Resident)) (Signed 21-Aug-2022 11:22) Authored: History & Physical Reviewed, ERAS, Consent, Note Completion Fang Rodriguez) (Signed 21-Aug-2022 12:39) Authored: Note Completion Co-Signer: History & Physical Reviewed, ERAS, Consent, Note Completion Last Updated: 21-Aug-2022 12:39 by Fang Rodriguez) [facility] 08-13-2022 Note History & Physical [...] the note. I personally evaluated the patient [id number] Electronic Signatures: Sirena Oconnor (DPM (Resident)) (Signed 13-Aug-2022 06:59) Authored: History & Physical Reviewed, ERAS, Consent, Note Completion Fang Rodriguez (FLASH) (Signed 13-Aug-2022 07:41) Authored: Note Completion Co-Signer: History & Physical Reviewed, ERAS, Consent, Note Completion Last Updated: 13-Aug-2022 07:41 by Fang Rodriguez (FLASH) [facility] 06-05-2022 Note History & Physical [...] the note. I personally evaluated the patient [id number] Electronic Signatures: Ly Sheikh (DPM (Resident)) (Signed 05-Jun-2022 06:50) Authored: History & Physical Reviewed, ERAS, Consent, Note Completion Fang Rodriguez (FLASH) (Signed 05-Jun-2022 09:32) Authored: Note Completion Co-Signer: History & Physical Reviewed, ERAS, Consent, Note Completion Last Updated: 05-Jun-2022 09:32 by Fang Rodriguez (FLASH) [facility] 05-06-2021 History of Past i llness Narrative Problem Noted Date Resolved Date Difficulty walking 05/06/2021 05/17/2023 diabetes 05/17/2023 Arthritis 05/17/2023 documented as of this encounter (statuses as of 05/20/2023) [facility] History of Past illness Narrative* Problem Noted Date Diagnosed Date Resolved Date Difficulty walking 05/06/2021 3 diabetes 05/17/2023 Arthritis 05/17/2023 documented as of this encounter (statuses as of 05/23/2023) [facility] History of Past illness Narrative* Problem Noted Date Diagnosed Date Resolved Date Difficulty walking 05/06/2021 3 diabetes 05/17/2023 Arthritis 05/17/2023 documented as of this encounter (statuses as of 05/27/2023) [facility] History of Past illness Narrative* Problem Noted Date Diagnosed Date Resolved Date Difficulty walking 05/06/2021 3 diabetes 05/17/2023 Arthritis 05/17/2023 documented as of this encounter (statuses as of 05/28/2023) [facility] History of Past illness Narrative* Problem Noted Date Diagnosed Date Resolved Date Difficulty walking 05/06/2021 3 diabetes 05/17/2023 Arthritis 05/17/2023 documented as of this encounter (statuses as of 06/03/2023) [facility] History of Past illness Narrative* Problem Noted Date Diagnosed Date Resolved Date Difficulty walking 05/06/2021 3 diabetes 05/17/2023 Arthritis 05/17/2023 documented as of this encounter (statuses as of 06/04/2023) [address]22-2021 History of Past illness Narrative* Problem Noted Date Diagnosed Date Resolved Date Difficulty walking 05/06/2021 3 diabetes 05/17/2023 Arthritis 05/17/2023 documented as of this encounter (statuses as of 06/21/2023) [facility] of Past illness Narrative* Problem Noted Date Diagnosed Date Resolved Date Difficulty walking 05/06/2021 3 diabetes 05/17/2023 Arthritis 05/17/2023 documented as of this encounter (statuses as of 07/03/2023) [facility] of Past illness Narrative* Problem Noted Date Diagnosed Date Resolved Date Difficulty walking 05/06/2021 3 diabetes 05/17/2023 Arthritis 05/17/2023 documented as of this encounter (statuses as of 07/05/2023) [facility] of Past illness Narrative* Problem Noted Date Diagnosed Date Resolved Date Difficulty walking 05/06/2021 3 diabetes 05/17/2023 Arthritis 05/17/2023 documented as of this encounter (statuses as of 07/08/2023) [facility] History of Past illness Narrative* Problem Noted Date Diagnosed Date Resolved Date Difficulty walking 05/06/2021 3 diabetes 05/17/2023 Arthritis 05/17/2023 documented as of this encounter (statuses as of 07/21/2023) [facility] of Past illness Narrative* Problem Noted Date Diagnosed Date Resolved Date Difficulty walking 05/06/2021 3 diabetes 05/17/2023 Arthritis 05/17/2023 documented as of this encounter (statuses as of 07/28/2023) [facility] of Past illness Narrative* Problem Noted Date Diagnosed Date Resolved Date Difficulty walking 05/06/2021 3 diabetes 05/17/2023 Arthritis 05/17/2023 documented as of this encounter (statuses as of 08/06/2023) [facility] History of Past illness Narrative* Problem Noted Date Diagnosed Date Resolved Date Difficulty walking 05/06/2021 3 diabetes 05/17/2023 Arthritis 05/17/2023 documented as of this encounter (statuses as of 09/06/2023) [facility] History of Past illness Narrative* Problem Noted Date Diagnosed Date Resolved Date Difficulty walking 05/06/2021 3 diabetes 05/17/2023 Arthritis 05/17/2023 documented as of this encounter (statuses as of 09/07/2023) [facility] History of Past illness Narrative* Problem Noted Date Diagnosed Date Resolved Date Difficulty walking 05/06/2021 3 diabetes 05/17/2023 Arthritis 05/17/2023 documented as of this encounter (statuses as of 09/28/2023) [facility] History of Past illness Narrative* Problem Noted Date Diagnosed Date Resolved Date Difficulty walking 05/06/2021 3 diabetes 05/17/2023 Arthritis 05/17/2023 documented as of this encounter (statuses as of 09/30/2023) [facility] History of Past illness Narrative* Problem Noted Date Diagnosed Date Resolved Date Difficulty walking 05/06/2021 3 diabetes 05/17/2023 Arthritis 05/17/2023 documented as of this encounter (statuses as of 10/11/2023) [facility] History of Past illness Narrative* Problem Noted Date Diagnosed Date Resolved Date Difficulty walking 05/06/2021 3 diabetes 05/17/2023 Arthritis 05/17/2023 documented as of this encounter (statuses as of 10/27/2023) [facility] History of Past illness Narrative* Problem Noted Date Diagnosed Date Resolved Date Difficulty walking 05/06/2021 3 diabetes 05/17/2023 Arthritis 05/17/2023 documented as of this encounter (statuses as of 10/27/2023) [facility] History of Past illness Narrative* Problem Noted Date Diagnosed Date Resolved Date Difficulty walking 05/06/2021 3 Diabetic foot ulcer 12/21/2013 11/03/20 23 diabetes 05/17/2023 Arthritis 05/17/2023 documented as of this encounter (statuses as of 12/17/2023) [facility] History of Past illness Narrative* Problem Noted Date Diagnosed Date Resolved Date Difficulty walking 05/06/2021 3 Diabetic foot ulcer 12/21/2013 11/03/20 23 diabetes 05/17/2023 Arthritis 05/17/2023 documented as of this encounter (statuses as of 12/29/2023) [facility] History of Past illness Narrative* Problem Noted Date Diagnosed Date Resolved Date Difficulty walking 05/06/2021 3 Diabetic foot ulcer 12/21/2013 11/03/20 23 diabetes 05/17/2023 Arthritis 05/17/2023 documented as of this encounter (statuses as of 01/11/2024) [facility] History of Past illness Narrative* Problem Noted Date Diagnosed Date Resolved Date Difficulty walking 05/06/2021 3 Diabetic foot ulcer 12/21/2013 11/03/20 23 diabetes 05/17/2023 Arthritis 05/17/2023 documented as of this encounter (statuses as of 01/27/2024) [facility] History of Past illness Narrative* Problem Noted Date Diagnosed Date Resolved Date Difficulty walking 05/06/2021 3 Diabetic foot ulcer 12/21/2013 11/03/20 23 diabetes 05/17/2023 Arthritis 05/17/2023 documented as of this encounter (statuses as of 03/01/2024) [facility] Charcot's joint of right ankle- [...] this encounter [facility] [place] [facility]* Diagnosis Charcot ankle, right- Primary Osteonecrosis (HCC) Aseptic necrosis of bone, site unspecified Charcot ankle, right Retained orthopedic hardware Other postprocedural status Deformity of ankle joint, right documented in this encounter [facility] [place] [facility]* Diagnosis PAD (peripheral artery disease) (HCC)- [...] this encounter [facility] [place] [facility]* Diagnosis Pre-op exam- Primary Preoperative examination, [...] this encounter [facility] [place] [facility]* Diagnosis Preoperative cardiovascular examination Pre-operative cardiovascular examination Osteonecrosis (HCC) Aseptic necrosis of bone, site unspecified Charcot ankle, right Retained orthopedic hardware Other postprocedural status Deformity of ankle joint, right documented in this encounter [facility] [place] [facility]* Diagnosis Charcot ankle, right- Primary documented in this encounter [facility] [place] [facility]* Diagnosis Charcot ankle, right- Primary Arthritis Arthropathy, unspecified, site unspecified documented in this encounter [facility] [place] [facility]* Diagnosis Charcot ankle, right- Primary documented in this encounter [facility] [place] [facility]* Diagnosis Charcot ankle, right [facility] [place] [facility]* Diagnosis Charcot ankle, right documented in this encounter [facility] [place] [facility]* Diagnosis Disorder of bone- Primary Disorder of bone and cartilage, unspecified Charcot ankle, right documented in this encounter [facility] note* Diagnosis Charcot ankle, right documented in this encounter [facility] note* Diagnosis Disease of bone- Primary Disorder of bone and cartilage, unspecified documented in this encounter [facility] note* Diagnosis Diabetes mellitus due to underlying condition with diabetic autonomic neuropathy, with long-term current use of insulin ([facility])- Primary Post-op pain Other acute postoperative pain Charcot ankle, right Osteonecrosis ([facility]) Aseptic necrosis of bone, site unspecified documented in this encounter [facility] note* Diagnosis Post-op pain Other acute postoperative pain documented in this encounter [facility] note* Diagnosis Subluxation of right ankle joint, initial encounter Presence of other specified devices Valgus deformity, not elsewhere classified, right ankle Subluxation of right ankle joint, subsequent encounter Subluxation of left ankle joint, subsequent encounter Hyperlipidemia, unspecified Type 2 diabetes mellitus with diabetic peripheral angiopathy without gangrene ([facility]) Unspecified asthma, uncomplicated Type 2 diabetes mellitus with diabetic polyneuropathy ([facility]) Depression, unspecified Irritable bowel syndrome without diarrhea Hypothyroidism, unspecified Unspecified osteoarthritis, unspecified site Unspecified visual loss Unspecified hearing loss, unspecified ear Personal history of nicotine dependence retirement (current) use of 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 drugs documented in this encounter [facility] Work Phone: Evaluation note* Diagnosis Post-op pain Other acute postoperative pain documented in this encounter [facility] note* Diagnosis Charcot ankle, right documented in this encounter [facility] note* Diagnosis Charcot ankle, right documented in this encounter [facility] note* Diagnosis Charcot ankle, right documented in this encounter [facility] noteNo assessment information availableC[facility] Work Phone: Reason for referral (narrative)* Diagnostic Procedure Only (Routine) - Authorized Specialty Diagnoses / Procedures Referred By Perla lyon Referred To Contact XR IMAGING Diagnoses Leg abscess Procedures XR TIBIA FIBULA 2V AP/LAT LEFT RADIOLOGIC EXAMINATION TIBIA & FIBULA 2 VIEWS Macario Santos DPM [address] [place] [address] Xr Imaging Referral ID Status Reason Start Date Expiration Date Visits Requested Visits Authorized [id number] Authorized Auto-Generat ed Referral 04/20/2023 05/19/2024 1 1 * Diagnostic Procedure Only (Routine) - Authorized Specialty Diagnoses / Procedures Referred By Contac t Referred To Contact XR IMAGING Diagnoses Charcot's joint of right ankle Procedures XR ANKLE GENERAL 3V AP/LAT/OBL RIGHT RADEX ANKLE COMPLETE MINIMUM 3 VIEWS Macario Santos DPM [address] [place] [address] Xr Imaging Referral ID Status Reason Start Date Expiration Date Visits Requested Visits Authorized [id number] Authorized Auto-Generat ed Referral 04/20/2023 05/19/2024 1 1 [facility] for referral (narrative)* Diagnostic Procedure Only (Routine) - Authorized Specialty Diagnoses / Procedures Referred By Contac t Referred To Contact MOLECULAR & FUNCTIONAL IMAGING Diagnoses Preoperative cardiovascular examination Procedures NM CARDIAC PERF STRESS/PHARM MYOCARDIAL [place] [address] [place] [address] Molecular [facility] Functional Imaging [address] [place] [address] Referral ID Status Reason Start Date Expiration Date Visits Requested Visits Authorized [id number] Authorized Auto-Generat ed Referral 05/07/2023 06/05/2024 1 1 * Outpatient Procedure (Routine) - Authorized Specialty Diagnoses / Procedures Referred By Contac t Referred To Contact [facility] Diagnoses PAD (peripheral artery disease) (HCC) Procedures US LEG ARTERIAL PERIPH [facility] DUP-SCAN LXTR ART/ARTL [place] [address] [place] [address] [facility] [place] [address] [place] [address] Referral ID Status Reason Start Date Expiration Date Visits Requested Visits Authorized [id number] Authorized Auto-Generat ed Referral 05/07/2023 05/06/2024 1 1 * Outpatient Procedure (Routine) - Authorized Specialty Diagnoses / Procedures Referred By Contac t Referred To Contact [facility] [place] Diagnoses PAD (peripheral artery disease) (HCC) Procedures PVR LEG [facility] VAS LAB NON-INVASIVE PHYSIOLOGIC STUDY EXTREMITY [address] [place] [address] [facility] [place] [address] [facility] [address] [place] [address] Referral ID Status Reason Start Date Expiration Date Visits Requested Visits Authorized [id number] Authorized Auto-Generat ed Referral 05/07/2023 05/06/2024 1 1 [facility] for referral (narrative)* Diagnostic Procedure Only (Routine) - Closed Specialty Diagnoses / Procedures Referred By Contac t Referred To Contact MOLECULAR & FUNCTIONAL IMAGING Diagnoses Preoperative cardiovascular examination Procedures NM CARDIAC PERF STRESS/PHARM MYOCARDIAL [place] [address] [facility] [place] [address] Molecular [facility] Functional [facility] [address] [place] [address] Referral ID Status Reason Start Date Expiration Date V isits Requested Visits Authorized [id number] Closed Auto-Generate d Referral 05/07/2023 06/05/2024 1 1 [facility] for referral (narrative)* Diagnostic Procedure Only (Routine) - Authorized Specialty Diagnoses / Procedures Referred By Contac t Referred To Contact XR IMAGING Diagnoses Charcot ankle, right Procedures XR ANKLE GENERAL 3V AP/LAT/OBL RIGHT RADEX ANKLE COMPLETE MINIMUM 3 [place]IE[place] DPM [address] [place] [address] Xr Imaging Referral ID Status Reason Start Date Expiration Date Visits Requested Visits Authorized [id number] Authorized Auto-Generat ed Referral 06/04/2023 07/03/2024 1 1 [facility] for referral (narrative)* Diagnostic Procedure Only (Routine) - Authorized Specialty Diagnoses / Procedures Referred By Contac t Referred To Contact XR IMAGING Diagnoses Disease of bone Procedures XR ANKLE GENERAL 3V AP/LAT/OBL RIGHT RADEX ANKLE COMPLETE MINIMUM 3 VIEWS Macario Santos DPM [address] [place] [id number] Xr Imaging [id number] Referral ID Status Reason Start Date Expiration Date Visits Requested Visits Authorized [id number] Authorized Auto-Generat ed Referral 07/28/2023 08/26/2024 1 1 [facility] for referral (narrative)* Diagnostic Procedure Only (Routine) - Pending Review Specialty Diagnoses / Procedures Referred By Contac t Referred To Contact XR IMAGING Diagnoses Diabetes mellitus due to underlying condition with diabetic autonomic neuropathy, with long-term current use of insulin (HCC) Procedures XR FOOT GENERAL 3V AP/LAT/OBL BILATERAL RADEX FOOT COMPLETE MINIMUM 3 VIEWS Macario Santos DPM [address] [place] [phone] [place] [address] Referral ID Status Reason Start Date Expiration Date Visits Requested Visits Authorized [id number] Pending Review Auto-Generat ed Referral 10/05/2024 1 1 * Diagnostic Procedure Only (Routine) - Closed Specialty Diagnoses / Procedures Referred By Contac t Referred To Contact XR IMAGING Diagnoses Diabetes mellitus due to underlying condition with diabetic autonomic neuropathy, with long-term current use of insulin (HCC) Procedures XR ANKLE GENERAL 3V AP/LAT/OBL RIGHT RADEX ANKLE COMPLETE MINIMUM 3 VIEWS Macario Santos DPM [address] [place] [address] [place] [address] Referral ID Status Reason Start Date Expiration Date V isits Requested Visits Authorized [id number] Closed Auto-Generate d Referral 08/30/2023 09/28/2024 1 1 [facility] for visit Narrative* Diagnostic Procedure Only (Routine) - Closed Specialty Diagnoses / Procedures Referred By Perla lyon Referred To Contact XR IMAGING Diagnoses Charcot ankle, right Procedures XR ANKLE GENERAL 3V AP/LAT/OBL RIGHT RADEX ANKLE COMPLETE MINIMUM 3 VIEWS Macario Santos DPM [address] [place] [phone] [place] [address] Referral ID Status Reason Start Date Expiration Date V isits Requested Visits Authorized [id number] Closed Auto-Generate d Referral 07/08/2023 07/06/2024 1 1 [facility] Summary Purpose Family History No Family History [...] EXTREMITY W/O CONTRAST MATERIAL Macario Santos DPM [address] [place] [address] Ct Imaging Referral ID Status Reason Start Date Expiration Date V isits Requested Visits Authorized [id number] Closed Auto-Generate d Referral 04/22/2023 05/21/2024 1 1 Specialty Diagnoses / Procedures Referred By Perla lyon Referred To Contact Cardiology Diagnoses Charcot ankle, right Procedures CONSULT TO CARDIOLOGY Macario Santos DPM [address] [place] [address] [place] [address] [place] [id number] Referral ID Status Reason Start Date Expiration Date Visits Requested Visits Authorized [id number] Ref Not Required PCP Requested Referral 05/05/2023 05/04/2024 1 1 Specialty Diagnoses / Procedures Referred By Contac t Referred To Contact MR IMAGING Diagnoses Disorder of bone Procedures MRI ANKLE WO IVCON LEFT MRI ANY JT LOWER EXTREM W/O CONTRAST MATRL Macario Santos DPM [address] [place] [phone] [facility] [place] [address] Referral ID Status Reason Start Date Expiration Date Visits Requested Visits Authorized [id number] Authorized Auto-Generat ed Referral 07/02/2023 07/31/2024 1 1 Specialty Diagnoses / Procedures Referred By Contac t Referred To Contact XR IMAGING Diagnoses Disorder of bone Procedures XR ANKLE GENERAL 3V AP/LAT/OBL LEFT RADEX ANKLE COMPLETE MINIMUM 3 VIEWS Macario Santos DPM [address] [place] [phone] Xr Imaging [place] [address] Referral ID Status Reason Start Date Expiration Date Visits Requested Visits Authorized [id number] Pending Review Auto-Generat ed Referral 07/02/2023 07/31/2024 1 1 Additional Source Comments INFORMATION SOURCE (unrecogn ized section and content) DATE CREATED AUTHOR 05/05/2018 [facility] DATE CREATED AUTHOR AUTHOR'S ORGANIZ ATION 02/23/2020 [facility] DATE CREATED AUTHOR AUTHOR'S ORGANIZ ATION 02/11/2021 [facility] DATE CREATED AUTHOR AUTHOR'S ORGANIZ ATION 03/29/2023 [facility] DATE CREATED AUTHOR AUTHOR'S ORGANIZ ATION 07/28/2023 [facility] DATE CREATED AUTHOR AUTHOR'S ORGANIZ ATION 12/07/2023 [facility] DATE CREATED AUTHOR AUTHOR'S ORGANIZ ATION 01/18/2024 [facility] DATE CREATED AUTHOR AUTHOR'S ORGANIZ ATION 03/18/2024 [facility] DATE CREATED AUTHOR AUTHOR'S ORGANIZ ATION 03/18/2024 [facility] Source Comments (unrecognize d section and content) In the event this informatio n is protected by the Federal Confidentiality of Alcohol and Drug Abuse Patient Records regulations: The Federal rules restrict any use of the information to criminally investigate or prosecute any alcohol or drug abuse patient.[facility] the event this information is protected by the Federal Confidentiality of Alcohol and Drug Abuse Patient Records regulations: The Federal rules restrict any use of the information to criminally investigate or prosecute any alcohol or drug abuse patient.[facility] the event this information is protected by the Federal Confidentiality of Alcohol and Drug Abuse Patient Records regulations: The Federal rules restrict any use of the information to criminally investigate or prosecute any alcohol or drug abuse patient.[facility] the event this information is protected by the Federal Confidentiality of Alcohol and Drug Abuse Patient Records regulations: The Federal rules restrict any use of the information to criminally investigate or prosecute any alcohol or drug abuse patient.[facility]In the event this information is protected by the Federal Confidentiality of Alcohol and Drug Abuse Patient Records regulations: The Federal rules restrict any use of the information to criminally investigate or prosecute any alcohol or drug abuse patient.[facility] CenterIn the event this information is protected by the Federal Confidentiality of Alcohol and Drug Abuse Patient Records regulations: The Federal rules restrict any use of the information to criminally investigate or prosecute any alcohol or drug abuse patient.[facility] CenterIn the event this information is protected by the Federal Confidentiality of Alcohol and Drug Abuse Patient Records regulations: The Federal rules restrict any use of the information to criminally investigate or prosecute any alcohol or drug abuse patient.[facility] CenterIn the event this information is protected by the Federal Confidentiality of Alcohol and Drug Abuse Patient Records regulations: The Federal rules restrict any use of the information to criminally investigate or prosecute any alcohol or drug abuse patient.[facility] Center[facility] the event this information is protected by the Federal Confidentiality of Alcohol and Drug Abuse Patient Records regulations: The Federal rules restrict any use of the information to criminally investigate or prosecute any alcohol or drug abuse patient.[facility] CenterIn the event this information is protected by the Federal Confidentiality of Alcohol and Drug Abuse Patient Records regulations: The Federal rules restrict any use of the information to criminally investigate or prosecute any alcohol or drug abuse patient.[facility] CenterIn the event this information is protected by the Federal Confidentiality of Alcohol and Drug Abuse Patient Records regulations: The Federal rules restrict any use of the information to criminally investigate or prosecute any alcohol or drug abuse patient.[facility] CenterIn the event this information is protected by the Federal Confidentiality of Alcohol and Drug Abuse Patient Records regulations: The Federal rules restrict any use of the information to criminally investigate or prosecute any alcohol or drug abuse patient.[facility] CenterIn the event this information is protected by the Federal Confidentiality of Alcohol and Drug Abuse Patient Records regulations: The Federal rules restrict any use of the information to criminally investigate or prosecute any alcohol or drug abuse patient.[facility] CenterIn the event this information is protected by the Federal Confidentiality of Alcohol and Drug Abuse Patient Records regulations: The Federal rules restrict any use of the information to criminally investigate or prosecute any alcohol or drug abuse patient.[facility] CenterIn the event this information is protected by the Federal Confidentiality of Alcohol and Drug Abuse Patient Records regulations: The Federal rules restrict any use of the information to criminally investigate or prosecute any alcohol or drug abuse patient.[facility] CenterIn the event this information is protected by the Federal Confidentiality of Alcohol and Drug Abuse Patient Records regulations: The Federal rules restrict any use of the information to criminally investigate or prosecute any alcohol or drug abuse patient.[facility] CenterIn the event this information is protected by the Federal Confidentiality of Alcohol and Drug Abuse Patient Records regulations: The Federal rules restrict any use of the information to criminally investigate or prosecute any alcohol or drug abuse patient.[facility] CenterIn the event this information is protected by the Federal Confidentiality of Alcohol and Drug Abuse Patient Records regulations: The Federal rules restrict any use of the information to criminally investigate or prosecute any alcohol or drug abuse patient.[facility] CenterIn the event this information is protected by the Federal Confidentiality of Alcohol and Drug Abuse Patient Records regulations: The Federal rules restrict any use of the information to criminally investigate or prosecute any alcohol or drug abuse patient.[facility] CenterIn the event this information is protected by the Federal Confidentiality of Alcohol and Drug Abuse Patient Records regulations: The Federal rules restrict any use of the information to criminally investigate or prosecute any alcohol or drug abuse patient.[facility] CenterIn the event this information is protected by the Federal Confidentiality of Alcohol and Drug Abuse Patient Records regulations: The Federal rules restrict any use of the information to criminally investigate or prosecute any alcohol or drug abuse patient.[facility] CenterIn the event this information is protected by the Federal Confidentiality of Alcohol and Drug Abuse Patient Records regulations: The Federal rules restrict any use of the information to criminally investigate or prosecute any alcohol or drug abuse patient.[facility] CenterIn the event this information is protected by the Federal Confidentiality of Alcohol and Drug Abuse Patient Records regulations: The Federal rules restrict any use of the information to criminally investigate or prosecute any alcohol or drug abuse patient.[facility] CenterIn the event this information is protected by the Federal Confidentiality of Alcohol and Drug Abuse Patient Records regulations: The Federal rules restrict any use of the information to criminally investigate or prosecute any alcohol or drug abuse patient.[facility] CenterIn the event this information is protected by the Federal Confidentiality of Alcohol and Drug Abuse Patient Records regulations: The Federal rules restrict any use of the information to criminally investigate or prosecute any alcohol or drug abuse patient.[facility] CenterIn the event this information is protected by the Federal Confidentiality of Alcohol and Drug Abuse Patient Records regulations: The Federal rules restrict any use of the information to criminally investigate or prosecute any alcohol or drug abuse patient.[facility] CenterIn the event this information is protected by the Federal Confidentiality of Alcohol and Drug Abuse Patient Records regulations: The Federal rules restrict any use of the information to criminally investigate or prosecute any alcohol or drug abuse patient.[facility] CenterIn the event this information is protected by the Federal Confidentiality of Alcohol and Drug Abuse Patient Records regulations: The Federal rules restrict any use of the information to criminally investigate or prosecute any alcohol or drug abuse patient.[facility] CenterIn the event this information is protected by the Federal Confidentiality of Alcohol and Drug Abuse Patient Records regulations: The Federal rules restrict any use of the information to criminally investigate or prosecute any alcohol or drug abuse patient.[facility] CenterIn the event this information is protected by the Federal Confidentiality of Alcohol and Drug Abuse Patient Records regulations: The Federal rules restrict any use of the information to criminally investigate or prosecute any alcohol or drug abuse patient.[facility] CenterIn the event this information is protected by the Federal Confidentiality of Alcohol and Drug Abuse Patient Records regulations: The Federal rules restrict any use of the information to criminally investigate or prosecute any alcohol or drug abuse patient.[facility] CenterIn the event this information is protected by the Federal Confidentiality of Alcohol and Drug Abuse Patient Records regulations: The Federal rules restrict any use of the information to criminally investigate or prosecute any alcohol or drug abuse patient.[facility] CenterIn the event this information is protected by the Federal Confidentiality of Alcohol and Drug Abuse Patient Records regulations: The Federal rules restrict any use of the information to criminally investigate or prosecute any alcohol or drug abuse patient.[facility] CenterIn the event this information is protected by the Federal Confidentiality of Alcohol and Drug Abuse Patient Records regulations: The Federal rules restrict any use of the information to criminally investigate or prosecute any alcohol or drug abuse patient.[facility] CenterIn the event this information is protected by the Federal Confidentiality of Alcohol and Drug Abuse Patient Records regulations: The Federal rules restrict any use of the information to criminally investigate or prosecute any alcohol or drug abuse patient.[facility] Teams (unrecognized sec tion and content) [employer] Seam Operator Relationship Specialty Start Date End Date Collins Savage Jr., DO PCP - General Family Medicine 12/21/13 [employer] Seam Operator Relationship Specialty Start Date End Date Collins Savage Jr., DO PCP - General Family Medicine 12/21/13 Chain[employer] Seam Operator Relationship Specialty Start Date End Date Collins Savage Jr., DO PCP - General Family Medicine 12/21/13 Chain[employer] Seam Operator Relationship Specialty Start Date End Date Collins Savage Jr., DO PCP - General Family Medicine 12/21/13 Chain[employer] F[employer] Seam Operator Relationship Specialty Start Date End Date Collins Savage Jr., DO PCP - General Family Medicine 12/21/13 Chain[employer] F[employer] Seam Operator Relationship Specialty Start Date End Date Collins Savage Jr., DO PCP - General Family Medicine 12/21/13 Chain[employer] F[employer] Seam Operator Relationship Specialty Start Date End Date Collins Andrews MD [address] [place] [id number] PCP - General Internal Medicine 05/06/23 Chain[employer] F[employer] Seam Operator Relationship Specialty Start Date End Date Collins Andrews MD [address] [place] [id number] PCP - General Internal Medicine 05/06/23 Chain[employer]ch Felled Seam Operator Relationship Specialty Start Date End Date Collins Andrews MD [address] [place] [address] [id number] PCP - General Internal Medicine 05/06/23 Chain[employer]ch Felled Seam Operator Relationship Specialty Start Date End Date Collins Andrews MD [address] [place] [address] [id number] PCP - General Internal Medicine 05/06/23 Chain[employer]ch Felled Seam Operator Relationship Specialty Start Date End Date Collins Andrews MD [address] [place] [address] [id number] PCP - General Internal Medicine 05/06/23 Chain[employer]ch Felled Seam Operator Relationship Specialty Start Date End Date Collins Andrews MD [address] [place] [address] [id number] PCP - General Internal Medicine 05/06/23 Chain[employer]ch Felled Seam Operator Relationship Specialty Start Date End Date Collins Andrews MD [address] [place] [address] [id number] PCP - General Internal Medicine 05/06/23 Chain[employer]ch Felled Seam Operator Relationship Specialty Start Date End Date Collins Andrews MD [address] [place] [address] [id number] PCP - General Internal Medicine 05/06/23 Chain[employer]ch Felled Seam Operator Relationship Specialty Start Date End Date Collins Andrews MD [address] [place] [address] [id number] PCP - General Internal Medicine 05/06/23 Chainstitch Felled Seam Operator Relationship Specialty Start Date End Date Collins Andrews MD [address] [place] [address] [id number] PCP - General Internal Medicine 05/06/23 Chain[employer]ch Felled Seam Operator Relationship Specialty Start Date End Date Collins Andrews MD [address] [place] [address] [id number] PCP - General Internal Medicine 05/06/23 Chain[employer]ch Felled Seam Operator Relationship Specialty Start Date End Date Collins Andrews MD [address] [place] [address] [id number] PCP - General Internal Medicine 05/06/23 Chain[employer]ch Felled Seam Operator Relationship Specialty Start Date End Date Collins Andrews MD [address] [place] [address] [id number] PCP - General Internal Medicine 05/06/23 Chain[employer]ch Felled Seam Operator Relationship Specialty Start Date End Date Collins Andrews MD [address] [place] [address] [id number] PCP - General Internal Medicine 05/06/23 Chain[employer]ch Felled Seam Operator Relationship Specialty Start Date End Date Collins Andrews MD [address] [place] [id number] PCP - General 02/13/21 Chain[employer]ch Felled Seam Operator Relationship Specialty Start Date End Date Collins Andrews MD PCP - General Internal Medicine 05/06/23 Chain[employer]ch Felled Seam Operator Relationship Specialty Start Date End Date Collins Andrews MD PCP - General Internal Medicine 05/06/23 Chain[employer]ch Felled Seam Operator Relationship Specialty Start Date End Date Collins [...] MYOCARDIAL [place] [address] [place] [address] [facility] [address] [place] [address] Referral ID Status Reason Start Date Expiration Date V isits Requested Visits Authorized [id number] Closed Auto-Generate d Referral 05/07/2023 06/05/2024 1 [...] BE BASED ON THE PRIMARY CLINICAL RECORDS. [facility]. provides no warranty or guarantee of the accuracy or completeness of information in this document.
== END 2024-05-10 15:14 | disposition home or self-care (01) ==
LOC: LAB 15:13
PROVIDERS: Visit Provider Internal Medicine
DX: L02.818 Cutaneous abscess of other sites (principal)
CPT/HCPCS: 87070; 87102; 87150; 87186; 87206

== ENCOUNTER 2024-05-23 10:01 | Outpatient (OUT) | payer MEDICARE, MEDICAID, SELFPAY ==
--- NOTE | 2024-05-23 | XR_ITS ---
The [address] [address] Patient Name: BILLY SEXTON MRN: [id number] date: 1960 Sex: F Assigned Patient Location: Current Patient Location: Accession/Order Number: [id number] Exam Date: 05/23/2024 10:13 Report Date: 05/24/2024 07:08 At the request of: BROOKS GONZALES Procedure: XR foot RT min 3V PROCEDURE: XR ankle RT min 3V, XR foot RT min 3V COMPARISON: HISTORY: RIGHT ANKLE PAIN FINDINGS: BONES:Ankle fusion utilizing a retrograde intramedullary nail. Severe degenerative changes of the midfoot and hindfoot with marked bony remodeling. Multiple plates and screws with fracture of numerous screws, grossly stable. Heterotopic ossification. These pathic spurring of the calcaneus with remote posterior calcaneal osteotomy. Fusion of the first interphalangeal joint with a single screw. Remote healed fracture distal diaphysis of the fifth metatarsal SOFT TISSUES:Diffuse soft tissue swelling EFFUSION:None visible. OTHER: Negative. XR/XR foot RT min 3V IMPRESSION: Stable postsurgical and degenerative changes Electronically authenticated by: MAYELA AGUILAR Date: 05/24/2024 07:08
--- NOTE | 2024-05-23 | XR_ITS ---
The [place] [id number] Patient Name: BILLY SEXTON MRN: [id number] date: 1960 Sex: F Assigned Patient Location: Current Patient Location: Accession/Order Number: [id number] Exam Date: 05/23/2024 10:13 Report Date: 05/24/2024 07:08 At the request of: BROOKS GONZALES Procedure: XR ankle RT min 3V PROCEDURE: XR ankle RT min 3V, XR foot RT min 3V COMPARISON: HISTORY: RIGHT ANKLE PAIN FINDINGS: BONES:Ankle fusion utilizing a retrograde intramedullary nail. Severe degenerative changes of the midfoot and hindfoot with marked bony remodeling. Multiple plates and screws with fracture of numerous screws, grossly stable. Heterotopic ossification. These pathic spurring of the calcaneus with remote posterior calcaneal osteotomy. Fusion of the first interphalangeal joint with a single screw. Remote healed fracture distal diaphysis of the fifth metatarsal SOFT TISSUES:Diffuse soft tissue swelling EFFUSION:None visible. OTHER: Negative. XR/XR ankle RT min 3V IMPRESSION: Stable postsurgical and degenerative changes Electronically authenticated by: MAYELA AGUILAR Date: 05/24/2024 07:08
== END 2024-05-23 10:02 | disposition home or self-care (01) ==
LOC: EC 10:01
PROVIDERS: Visit Provider Podiatrist Foot & Ankle Surgery
DX: M25.571 Pain in right ankle and joints of right foot (principal); M79.671 Pain in right foot; M24.671 Ankylosis, right ankle; Z98.890 Other specified postprocedural states
CPT/HCPCS: 73610; 73630

== ENCOUNTER 2024-06-21 11:06 | Outpatient (OUT) | payer MEDICARE, MEDICAID, SELFPAY ==
--- NOTE | 2024-06-21 | XR_ITS ---
The [address] [address] Patient Name: BILLY SEXTON MRN: [id number] date: 1960 Sex: F Assigned Patient Location: Current Patient Location: Accession/Order Number: [id number] Exam Date: 06/21/2024 11:07 Report Date: 06/26/2024 11:24 At the request of: BROOKS GONZALES Procedure: XR foot RT min 3V PROCEDURE: XR foot RT min 3V COMPARISON: 05/23/2024 HISTORY: RIGHT FOOT PAIN FINDINGS: BONES:Stable ankle fusion utilizing a retrograde intramedullary jennifer and multiple screws. Multiple screw fragments are again observed, stable. Internal fixation of the first interphalangeal joint with a single distal to proximal screw . Severe degenerative changes with marked bony remodeling of the midfoot and hindfoot. No significant bony bridging across the ankle SOFT TISSUES:Negative. No visible soft tissue swelling. EFFUSION:None visible. OTHER: Negative. XR/XR foot RT min 3V IMPRESSION: Stable exam with no significant bone formation Electronically authenticated by: MAYELA AGUILAR Date: 06/26/2024 11:24
== END 2024-06-21 11:07 | disposition home or self-care (01) ==
LOC: EC 11:06
PROVIDERS: Visit Provider Podiatrist Foot & Ankle Surgery
DX: M79.671 Pain in right foot (principal)
CPT/HCPCS: 73630

== ENCOUNTER 2024-06-21 12:17 | Outpatient (OUT) | payer MEDICARE, MEDICAID, SELFPAY ==
--- NOTE | 2024-06-21 | CT_ITS ---
The [address] [address] Patient Name: BILLY SEXTON MRN: [id number] date: 1960 Sex: F Assigned Patient Location: [facility] Current Patient Location: Accession/Order Number: [id number] Exam Date: 06/21/2024 12:40 Report Date: 06/22/2024 08:08 At the request of: BROOKS GONZALES Procedure: CT ankle RT wo con EXAMINATION: CT ankle RT wo con HISTORY: CHARCOT ANKLE COMPARISON: 03/01/2024 TECHNIQUE: Multi-planar CT images were created without IV contrast. Dose reduction techniques were achieved by using automated exposure control and/or adjustment of mA and/or kV according to patient size and/or use of iterative reconstruction technique. FINDINGS: BONES: Again demonstrated is ankle fusion utilizing a retrograde intramedullary jennifer, the jennifer displaced 1.4 cm towards the plantar foot, grossly stable. There is been interval removal of the 2 posterior calcaneal screw fragments with placement of a new screw across the medial distal tibia into the talus and calcaneus. Multiple additional screw fragments are observed. There is a fixation plate along the dorsal midfoot hindfoot which appears stable. Marked degenerative changes with talus and calcaneal collapse extensive bone remodeling. Increased lucency surrounding the intramedullary jennifer is consistent with loosening. No bone formation or bony bridging is observed . Remote resection of the distal fibula SOFT TISSUES: Negative. No visible soft tissue swelling. EFFUSION: None visible. OTHER: Negative. CT/CT ankle RT wo con IMPRESSION: Progression of lucency surrounding the intramedullary jennifer likely representing hardware loosening No evidence of bone formation or bony bridging Electronically authenticated by: MAYELA AGUILAR Date: 06/22/2024 08:08
--- OUTSIDE RECORDS SUMMARY | 2024-06-21 12:23 | XMS_ITS | CCD ---
Author Organization [facility] CliniSyva Care Team Providers Care Water Gas Operator Name Role Phone Collins Savage Unavailable Unavailable Saridaobie, Collins Unavailable Unavailable Kira Bennett Unavailable Unavailable SarjessicakisCollins E Unavailable Unavailable Sarjessicakis, Collins E Unavailable Unavailable [place], Collins Unavailable [...] sources) Codeine Drug Allergy 8 GI Upset [facility] 1057 Work Phone: (9 sources) Meperidine Drug Allergy [facility] 1057 Work Phone: (20 sources) Meperidine; Translations: [MEPERIDINE (PF)] Drug Allergy 8 Other: See Comments [facility] (20 sources) Morphine; Translations: [MORPHINE] Drug Allergy 1 Itching [facility] (13 sources) Amoxicillin / Clavulanate; Translations: [AMOXICILLIN-PO T CLAVULANATE] Drug Allergy 3 GI Upset [facility] (13 sources) Doxycycline; Translations: [DOXYCYCLINE] Drug Allergy 3 GI [facility] (2 sources) Codeine; Translations: [CODEINE] Drug Allergy 8 [facility] [place] [facility] (1 source) ALLERGIES NOT ON FILE; Translations: [ALLERGIES NOT ON FILE] Propensity to adverse reactions (disorder) [facility] Medications Current Medications Medication Drug Class(es) Dates [...] Start: 04-24-2014 HYDROCODONE-ACETA MINOPHEN 7.5-300 mg tab [id number] 200 actuat albuterol 0.09 mg/actuat metered dose inhaler (20 sources) beta2-Adrenergic Agonist Start: 09-13-2023 take 1-2 puff(s) by mouth every four hours as needed albuterol HFA (PROVENTIL HFA, VENTOLIN HFA) 90 mcg/actuation inhaler inhale 1 to 2 puffs by mouth every 4 hours as needed 0 09/13/2023 Active Start: 02-22-2015 take 2 puff(s) by mo [facility] four times daily as needed Ventolin HFA [...] on above: Take 1 capsule by mo [facility] three times daily. cholecalciferol 0.025 mg oral [...] daily with meals. omega-3 acid ethyl esters (fpc) 1000 mg oral capsule (20 sources) omega-3 [...] by mouth. 0 Active turmeric ([facility]UM [facility]) Comment on above: Take 500 mg by [...] lower leg] Episodic Other aftercare (1 source) medical terminologist (current) use of 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 drugs; Translations: [medical terminologist (current) use of 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 drugs] Onset: 03-22-2023 Episodic Other aftercare (2 sources) medical terminologist (current) use of insulin; Translations: [medical terminologist (current) use of insulin] Onset: 03-17-2023 Episodic Other aftercare (1 source) Other adjunct faculty for medical terminology (current) drug therapy; Translations: [Other adjunct faculty for medical terminology (current) drug therapy] Onset: 03-17-2023 Episodic Other aftercare (1 source) Long-term current use of 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 medication; Translations: [[facility] (current) use of 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 drugs] 03-29-2023 [...] BCP dye [Mass/Vol] 4.7 g/dL Normal 3.4-5.0 [facility] Comment on above: Performed By: #### 2 4323-8 #### ADAM CALDERON ([id number]) [facility] ([facility]) [employer] [place] [address] ALP [Catalytic activity/Vol] 59 U/L Normal 33-136 [facility] Comment on above: Performed By: #### 2 4323-8 #### ADAM CALDERON ([id number]) [facility] ([facility]) [address] [place] [address] ALT With P-5'-P [Catalytic activity/Vol] 23 U/L Normal 7-45 [facility] Comment on above: Result Comment: Shaista ents treated with Sulfasalazine may generate falsely decreased results for ALT. Performed By: #### 2 4323-8 #### ADAM CALDERON ([id number]) [facility] ([facility]) [address] [place] [address] Anion gap [Moles/Vol] 17 mmol/L Normal 10-20 [facility] Comment on above: Performed By: #### 2 4323-8 #### ADAM CALDERON ([id number]) [facility] ([facility]) [address] [place] [address] AST With P-5'-P [Catalytic activity/Vol] 16 U/L Normal 9-39 [facility] Comment on above: Performed By: #### 2 4323-8 #### ADAM CALDERON ([id number]) [facility] ([facility]) [address] [place] [address] Bilirubin [Mass/Vol] 0.3 mg/dL Normal 0.0-1.2 [facility] Comment on above: Performed By: #### 2 4323-8 #### ADAM CALDERON ([id number]) [facility] ([facility]) [address] [place] [address] Calcium [Mass/Vol] 10.8 mg/dL High 8.6-10.3 [facility] Comment on above: Performed By: #### 2 4323-8 #### ADAM CALDERON ([id number]) [facility] ([facility]) [address] [place] [address] Chloride [Moles/Vol] 101 mmol/L Normal 98-107 [facility] Comment on above: Performed By: #### 2 4323-8 #### ADAM CALDERON ([id number]) [facility] ([facility]) [address] [place] [address] CO2 [Moles/Vol] 25 mmol/L Normal 21-32 [facility] Comment on above: Performed By: #### 2 4323-8 #### ADAM CALDERON ([id number]) [facility] ([facility]) [address] [place] [address] Creatinine [Mass/Vol] 1.09 mg/dL High 0.50-1.05 [facility] Comment on above: Performed By: #### 2 4323-8 #### ADAM CALDERON ([id number]) [facility] ([facility]) [address] [place] [address] Glomerular filtration rate/1.73 sq M.predicted 57 mL/min/1.73m*2 Low >60 [facility] Comment on above: Result Comment: Calc ulations of estimated GFR are performed using the 2020 CKD-EPI Study Refit equation without the race variable for the IDMS-Traceable creatinine methods. https://jasn.asnjournals.org/content/early/ASN.0076899 988 Performed By: #### 2 4323-8 #### ADAM CALDERON ([id number]) [facility] ([facility]) [address] [place] [address] Glucose [Mass/Vol] 178 mg/dL High 74-99 [facility] Comment on above: Performed By: #### 2 4323-8 #### ADAM CALDERON ([id number]) [facility]) [address] [place] [address] Potassium [Moles/Vol] 4.7 mmol/L Normal 3.5-5.3 [facility] Comment on above: Performed By: #### 2 4323-8 #### ADAM CALDERON ([id number]) [facility] ([facility]) [address] [place] [address] Protein [Mass/Vol] 7.4 g/dL Normal 6.4-8.2 [facility] Comment on above: Performed By: #### 2 4323-8 #### ADAM CALDERON ([id number]) [facility] ([facility]) [address] [place] [address] Sodium [Moles/Vol] 138 mmol/L Normal 136-145 [facility] Comment on above: Performed By: #### 2 4323-8 #### ADAM CALDERON ([id number]) [facility] ([facility]) [address] [place] [address] Urea nitrogen [Mass/Vol] 21 mg/dL Normal 6-23 [facility] Comment on above: Performed By: #### 2 4323-8 #### ADAM CALDERON ([id number]) [facility] ([facility]) [address] [place] [address] HbA1c (Bld) [Mass fraction]o n 03-13-2024 Average glucose Estimated from glycated hemoglobin (Bld) [Mass/Vol] 148 mg/dL Normal Not Established [facility] Comment on above: Order Comment: Diagn osis of Diabetes-Adults Non-Diabetic: < or = 5.6% Increased risk for developing diabetes: 5.7-6.4% Diagnostic of diabetes: > or = 6.5% Monitoring of Diabetes Age (y)....................... Therapeutic Goal (%) Adults: >18.........................<7.0 Pediatrics: 13-18...................<7.5 Pediatrics: 7-12....................<8.0 Pediatrics: 0-6..................... 7.5-8.5 [place] [employer]. Diabetes Care 33(S1), Nov 2009 Performed By: #### 4 548-4 #### ADAM CALDERON ([id number]) [facility] ([facility]) [address] [place] [address] Hemoglobin A1c/Hemoglobin.to milan 03-13-2024 HbA1c (Bld) [Mass fraction] 6.8 % High see below [facility] Comment on above: Order Comment: Diagn osis of Diabetes-Adults Non-Diabetic: < or = 5.6% Increased risk for developing diabetes: 5.7-6.4% Diagnostic of diabetes: > or = 6.5% Monitoring of Diabetes Age (y)....................... Therapeutic Goal (%) Adults: >18.........................<7.0 Pediatrics: 13-18...................<7.5 Pediatrics: 7-12....................<8.0 Pediatrics: 0-6..................... 7.5-8.5 [employer] [place] [employer]. Diabetes Care 33(S1), Nov 2009 Performed By: #### 4 548-4 #### ADAM CALDERON ([id number]) [facility] ([facility]) [address] [place] [address] Thyrotropinon 03-13-2024 TSH Qn 0.79 m[IU]/L Normal 0.44-3.98 [facility] Comment on above: Order Comment: TSH t esting is performed using different testing methodology at [facility] than at other [facility]. Direct result comparisons should only be made within the same method. Performed By: #### 3 016-3 #### ADAM CALDERON ([id number]) [facility] ([facility]) [address] [place] [address] Edwin 03-09-2024 L Specimen: [id number] Received: 03/09/24 Status: [facility] Num: [id number] Spec Type: Surgical Subm Dr: Zuhair Grubbs,DPM, MS Tissues: A Bone Biopsy/Currettings (BX RT TIBIA BONE) B Bone Biopsy/Currettings (RT TALUS BONE BX) C Bone Biopsy/Currettings (BX RT CALCANEOUS BONE) Procedures: HE/6, Gross/Micro L5/3, Decalcification/3 Age/ Patient Sex Location Account Attending Physician Darshan LABELL [id number] Zuhair Grubbs DPM, MS SPEC NUM: [id number] RECD: 03/09/24 STATUS: KADIE LEESaulo NUM: [id number] TATIANNA: 03/09/24 [facility] DR: Zuhair Grubbs DPM, MS ENTERED: 03/09/24 [facility] [address]: Orestes,Lab SPEC TYPE: Surgical DEPT: [...] cm, entirely submitted in A1 following Specimen: [id number] Received: 03/09/24 Status: KADIE Kiley Num: [id number] Spec Type: Surgical Subm Dr: Zuhair Grubbs DPM, MS Tissues: A Bone Biopsy/Currettings (BX RT TIBIA BONE) B Bone Biopsy/Currettings (RT TALUS BONE BX) C Bone Biopsy/Currettings (BX RT CALCANEOUS BONE) Procedures: HE/6, Gross/Micro L5/3, Decalcification/3 Patient: Darshan,Marie [id number] (Continued) Specimen: [id number] Received: 03/09/24 (Continued) Gross Description (Continued) Signed (signature on file) Darci Castro MD 03/13/24 1653 Specimen: [id number] Received: 03/09/24 Status: KADIE Cao Num: [id number] Spec Type: Surgical Subm Dr: Zuhair Grubbs,FLASH, MS Tissues: A Bone Biopsy/Currettings (BX RT TIBIA BONE) B Bone Biopsy/Currettings (RT TALUS BONE BX) C Bone Biopsy/Currettings (BX RT CALCANEOUS BONE) Procedures: HE/6, Gross/Micro L5/3, Decalcification/3 Patient: DarshanMarie [id number] (Continued) Specimen: [id number] Received: 03/09/24 (Continued) Gross Description (Continued) decalcification. [...] joint right ankle and foot CPT Codes 66973f3, 98465s4 Specimen: [id number] Received: 03/09/24 Status: KADIE Cao Num: [id number] Spec Type: Surgical Subm Dr: Zuhair Grubbs,FLASH, MS Tissues: A Bone Biopsy/Currettings (BX RT TIBIA BONE) B Bone Biopsy/Currettings (RT TALUS BONE BX) C Bone Biopsy/Currettings (BX RT CALCANEOUS BONE) Procedures: HE/6, Gross/Micro L5/3, Decalcification/3 Patient: Darshan,Marie [id number] (Continued) Signed (signature on file) Darci Castro MD 03/13/24 1653 Normal [facility] Comprehensive metabolic 2000 panelon 11-26-2023 Albumin BCP dye [Mass/Vol] 4.6 g/dL Normal 3.4-5.0 [facility] Comment on above: Performed By: #### 2 4323-8 #### ADAM CALDERON ([id number]) [facility] ([facility]) [address] [place] [address] ALP [Catalytic activity/Vol] 52 U/L Normal 33-136 [facility] Comment on above: Performed By: #### 2 4323-8 #### ADAM CALDERON ([id number]) [facility] ([facility]) [address] [place] [address] ALT With P-5'-P [Catalytic activity/Vol] 17 U/L Normal 7-45 [facility] Comment on above: Result Comment: Shaista ents treated with Sulfasalazine may generate falsely decreased results for ALT. Performed By: #### 2 4323-8 #### ADAM CALDERON ([id number]) [facility] ([facility]) [address] [place] [address] Anion gap [Moles/Vol] 14 mmol/L Normal 10-20 [facility] Comment on above: Performed By: #### 2 432-8 #### ADAM CALDERON ([id number]) [facility] ([facility]) [address] [place] [address] AST With P-5'-P [Catalytic activity/Vol] 16 U/L Normal 9-39 [facility] Comment on above: Performed By: #### 2 4323-8 #### ADAM CALDERON ([id number]) [facility] ([facility]) [address] [place] [address] Bilirubin [Mass/Vol] 0.6 mg/dL Normal 0.0-1.2 [facility] Comment on above: Performed By: #### 2 4323-8 #### ADAM CALDERON ([id number]) [facility] ([facility]) [address] [place] [address] Calcium [Mass/Vol] 10.0 mg/dL Normal 8.6-10.3 [facility] Comment on above: Performed By: #### 2 4323-8 #### ADAM CALDERON ([id number]) [facility] ([facility]) [address] [place] [address] Chloride [Moles/Vol] 99 mmol/L Normal 98-107 [facility] Comment on above: Performed By: #### 2 4323-8 #### ADAM CALDERON ([id number]) [facility] ([facility]) [address] [place] [address] CO2 [Moles/Vol] 28 mmol/L Normal 21-32 [facility] Comment on above: Performed By: #### 2 4323-8 #### ADAM CALDERON ([id number]) [facility] ([facility]) [address] [place] [address] Creatinine [Mass/Vol] 1.07 mg/dL High 0.50-1.05 [facility] Comment on above: Performed By: #### 2 4323-8 #### ADAM CALDERON ([id number]) [facility] ([facility]) [address] [place] [address] Glomerular filtration rate/1.73 sq M.predicted 59 mL/min/1.73m*2 Low >60 [facility] Comment on above: Result Comment: Calc ulations of estimated GFR are performed using the 2020 CKD-EPI Study Refit equation without the race variable for the IDMS-Traceable creatinine methods. https://jasn.asnjournals.org/content/early/ASN.6552880 988 Performed By: #### 2 4323-8 #### ADAM CALDERON ([id number]) [facility] ([facility]) [address] [place] [address] Glucose [Mass/Vol] 92 mg/dL Normal 74-99 [facility] Comment on above: Performed By: #### 2 4323-8 #### ADAM CALDERON ([id number]) [facility] ([facility]) [address] [place] [address] Potassium [Moles/Vol] 4.2 mmol/L Normal 3.5-5.3 [facility] Comment on above: Performed By: #### 2 4323-8 #### ADAM CALDERON ([id number]) [facility] ([facility]) [address] [place] [address] Protein [Mass/Vol] 7.1 g/dL Normal 6.4-8.2 [facility] Comment on above: Performed By: #### 2 4323-8 #### ADAM CALDERON ([id number]) [facility] ([facility]) [address] [place] [address] Sodium [Moles/Vol] 137 mmol/L Normal 136-145 [facility] Comment on above: Performed By: #### 2 4323-8 #### ADAM CALDERON ([id number]) [facility] ([facility]) [address] [place] [address] Urea nitrogen [Mass/Vol] 20 mg/dL Normal 6-23 [facility] Comment on above: Performed By: #### 2 4323-8 #### ADAM CALDERON ([id number]) [facility] ([facility]) [address] [place] [address] HbA1c (Bld) [Mass fraction]o n 11-26-2023 Average glucose Estimated from glycated hemoglobin (Bld) [Mass/Vol] 163 mg/dL Normal Not Established [facility] Comment on above: Order Comment: Diagn osis of Diabetes-Adults Non-Diabetic: < or = 5.6% Increased risk for developing diabetes: 5.7-6.4% Diagnostic of diabetes: > or = 6.5% Monitoring of Diabetes Age (y)....................... Therapeutic Goal (%) Adults: >18.........................<7.0 Pediatrics: 13-18...................<7.5 Pediatrics: 7-12....................<8.0 Pediatrics: 0-6..................... 7.5-8.5 [employer] [place] [employer]. Diabetes Care 33(S1), Nov 2009 Performed By: #### 4 548-4 #### ADAM CALDERON ([id number]) [facility] ([facility]) [address] [place] [address] Hemoglobin A1c/Hemoglobin.to milan 11-26-2023 HbA1c (Bld) [Mass fraction] 7.3 % High see below [facility] Comment on above: Order Comment: Diagn osis of Diabetes-Adults Non-Diabetic: < or = 5.6% Increased risk for developing diabetes: 5.7-6.4% Diagnostic of diabetes: > or = 6.5% Monitoring of Diabetes Age (y)....................... Therapeutic Goal (%) Adults: >18.........................<7.0 Pediatrics: 13-18...................<7.5 Pediatrics: 7-12....................<8.0 Pediatrics: 0-6..................... 7.5-8.5 [employer] [place] [employer]. Diabetes Care 33(S1), Nov 2009 Performed By: #### 4 548-4 #### ADAM CALDERON ([id number]) [facility] ([facility]) [address] [place] [address] Lipid 1996 panelon 4 Cholesterol [Mass/Vol] 185 mg/dL Normal 0-199 [facility] Comment on above: Result Comment: [...] By: #### 2 4331-1 #### ADAM CALDERON ([id number]) [facility] ([facility]) [address] [place] [address] Cholesterol in HDL [Mass/Vol] 34.5 mg/dL Normal [facility] Comment on above: Result Comment: Age Very Low Low Normal High 0-19 Y < 35 < 40 40-45 ---- 20-24 Y ---- < 40 >45 ---- >24 Y ---- < 40 40-60 >60 Performed By: #### 2 4331-1 #### ADAM CALDERON ([id number]) [facility]) [address] [place] [address] Cholesterol in LDL [Mass/Vol] 95 mg/dL Normal <=99 [facility] Comment on above: Result Comment: Near Borderline AGE Desirable Optimal High High Very High 0-19 Y 0 - 109 --- 110-129 >/= 130 ---- 20-24 Y 0 - 119 --- 120-159 >/= 160 ---- >24 Y 0 - 99 100-129 130-159 160-189 >/=190 Performed By: #### 2 4331-1 #### ADAM CALDERON ([id number]) [facility] ([facility]) [address] [place] [address] Cholesterol in VLDL [Mass/Vol] 55 mg/dL High 0-40 [facility] Comment on above: Performed By: #### 2 4331-1 #### ADAM CALDERON ([id number]) [facility] ([facility]) [address] [place] [address] CHOLESTEROL/HDL RATIO 5.4 Normal [facility] Comment on above: Result Comment: Ref Values Desirable < 3.4 High Risk > 5.0 Performed By: #### 2 4331-1 #### ADAM CALDERON ([id number]) [facility] ([facility]) [address] [place] [address] NON HDL CHOLESTEROL 151 mg/dL High 0-149 [facility] [place] [facility] Comment on above: Result Comment: Age Desirable Borderline High High Very High 0-19 Y 0 - 119 120 - 144 >/= 145 >/= 160 20-24 Y 0 - 149 150 - 189 >/= 190 ---- >24 Y 30 mg/dL above LDL Cholesterol goal Performed By: #### 2 4331-1 #### ADAM CALDERON ([id number]) [facility]) [address] [place] [address] Triglyceride [Mass/Vol] 277 mg/dL High 0-149 [facility] Comment on above: Result Comment: [...] By: #### 2 4331-1 #### ADAM CALDERON ([id number]) [facility] ([facility]) [address] [place] [address] Thyrotropinon 11-26-2023 TSH Qn 0.72 m[IU]/L Normal 0.44-3.98 [facility] Comment on above: Order Comment: TSH t esting is performed using different testing methodology at [facility] than at other [facility]. Direct result comparisons should only be made within the same method. Performed By: #### 3 016-3 #### ADAM CALDERON ([id number]) [facility] ([facility]) [address] [place] [address] Thyroxine.freeon 11-26-2023 Free T4 [Mass/Vol] 1.24 ng/dL High 0.61-1.12 [facility] Comment on above: Order Comment: Thyro xine Free testing is performed using different testing methodology at [facility] than at other [facility]. Direct result comparisons should only be [...] By: #### 3 024-7 #### ADAM CALDERON ([id number]) [facility] ([facility]) [address] [place] [address] Shanon 11-25-2023 CN Office Visit (ORTHLD ) DARSHANMARIE TRINIDAD ([id number]) 1960 F Date Time Provider Department 11/25/23 [...] No di (more content not included)... 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]) Surgeons: Macario Santos DPM Responsible Provider: Luc [...] November 10, 2023 TIME: 2:34 PM CSN: [id number] [facility] ANES PRE-OPon 11-10-2023 ANES PRE-OP HNO ID: [id number] Author: Serafin Partida MD Service: Anesthesiology Author Type: Anesthesiologist Type: Anesthesia Preprocedure Evaluation Filed: 11/10/2023 12:54 PM Note Text: ANESTHESIOLOGY DAY OF SURGERY NOTE : 1960 Procedure Information Date/Time: 11/10/23 1325 Procedures: REMOVAL HARDWARE FOOT (Right: Foot) - POPLITEAL BLOCK Adrian serrano aware of case - kf have available Imaging3 extraction set 1 and 2 ARTHRODESIS MIDTARSAL [...] puffs by (more content not included)... Normal [facility] BRIEF OP NOTon 11-10-2023 BRIEF OP NOT HNO ID: [id number] Author: Macario Santos DPM Service: Podiatry Author Type: Physician Type: Brief Op Note Filed: 11/10/2023 2:08 PM Note Text: PODIATRIC SURGERY BRIEF OPERATIVE NOTE LOG ID: [id number] Surgery/Procedure Date: 11/10/2023 Incision/Procedure Start Time: 1:25 PM Incision Close/Procedure End Time: Surgeon(s)/Proceduralis t(s) and Access Control Specialist(s): Surgeon(s) and Role: * Macario Santos DPM - Primary * Alek Mclaughlin DPM - Resident - Assisting Physician Access Control Specialist: Rhoda Weston PA-C Procedure(s): Right removal of [...] 10, 2023 TIME: 2:06 PM PAGER/CONTACT #: [phone] (Pager/Cell) Normal [facility] Bacteria Spec Anaerobe Culto n 11-10-2023 Bacteria identified Anaer cx Nom (Unsp spec) Negative Normal [facility] Comment on above: Performed By: #### 6 35-3, 84965-5, 54913-9 ####[facility] [id number] [place] [address] [place] Bacteria Tiss Culton 023 Bacteria identified Cx Nom (Tiss) CULTURE, TISSUE: No growth GRAM STAIN: No organisms seen No Polymorphonuclear Leukocytes Normal [facility] Comment on above: Performed By: #### 6 35-3, 19336-0, 45985-2 ####[facility] [id number] [place] [address] [place] Microorganism Spec Culton Microorganism identified Cx Nom (Unsp spec) CULTURE, FUNGAL: No Fungus isolated after 28 days FUNGAL SMEAR: No fungus seen [facility] Comment on above: Performed By: #### 6 35-3, 06501-2, 45592-9 ####[facility] [id number] [address] [address] [place] Microorganism identified Cx Nom (Unsp spec) CULTURE, AFB: No Acid Fast Bacilli isolated after 42 days AFB STAIN: No acid fast bacilli seen by flurochrome stain [facility] Comment on above: Performed By: #### 6 35-3, 06800-6, 71630-0 ####[facility] [id number] [address] [address] [place] NURSING PROGon 11-10-2023 NURSING PROG HNO ID: [id number] Author: Blanca Tomas RN Service: ? Author [...] (RECOMMENDATION): None Electronically Signed By: Blanca Tomas [facility] NURSING PROG HNO ID: [id number] Author: Brigette Stallworth RN Service: Pain Management Author Type: Registered Nurse Type: Nursing Progress Note Filed: 11/10/2023 12:39 PM Note Text: RIGHT popliteal single shot nerve block and RIGHT adductor canal single shot nerve block Dr. Stanley and Dr. Rodrigues Patient verbalized understanding of nerve block procedure. Patient tolerated procedure very well; report given to primary nurse. [facility] NURSING PROG HNO ID: [id number] Author: Jenni Zarco RN Service: ? Author [...] (RECOMMENDATION): None Electronically Signed By: Jenni Zarco [facility] OPERATIVE NOon 11-10-2023 OPERATIVE NO HNO ID: [id number] Author: Macario Santos DPM Service: Podiatry Author Type: Physician Type: Operative Report Filed: 11/12/2023 8:42 AM Note Text: SURGERY OPERATIVE NOTE LOG ID: [id number] Surgery/Procedure Date: 11/10/2023 Incision/Procedure Start Time: 1:25 PM Incision Close/Procedure End Time: 2:17 PM Surgeon(s)/Proceduralis t(s) and Access Control Specialist(s): Surgeon(s) and Role: * Macario Santos DPM - Primary * Alek Mclaughlin DPM - Resident - Assisting Physician Access Control Specialist: Rhoda Weston PA-C PRE-OP/PRE-PROCEDURE DIAGNOSIS: Right foot [...] impregnated cement was then prepared per the supply chain director's recommended technique and then placed into the [...] 12, 2023 TIME: 8:37 AM PAGER/CONTACT #: [phone] (Pager/Cell) Normal [facility] SURGICAL PATHOLOGYon 023 CASE REPORT Normal [facility] Comment on above: Order Comment: Speci men Type: SPECIMEN FROM BONEOrdering Facility: [facility] Address: [address] [place] [address] Result Comment: Surg ical Pathology Report Case: [id number] Authorizing Provider: Macario Santos Collected: 11/10/2023 01:43 PM FLASH Zuniga Ordering Location: [facility] Received: 11/10/2023 02:35 PM Operating Room Pathologist: Laina Álvarez MD Specimen: BONE RESECTION, right non union talus Performed By: #### S ####[facility] LABCLIA [id number] [address] STATES OF [facility] LABORATORYCLIA [id number] [place] [address] [place] CLINICAL HISTORY POPLITEAL BLOCK Normal [facility] Comment on above: Order Comment: Speci men Type: SPECIMEN FROM BONEOrdering Facility: [facility] Address: [address] [place] [address] Result Comment: Pre-op diagnosis: Retained orthopedic hardware [Z96.9] Nonunion of foot fracture, 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 B one and soft tissue, right, nonunion talus bone, resection: - Soft tissue with reactive changes, chronic inflammation and foreign body-type giant cell reaction. - Fragments of necrotic bone. Performed By: #### S ####[facility] LABCLIA [id number] [address] LABORATORYCLIA [id number] [address] OF [facility] FINAL PERFORMING LAB Normal [facility] Comment on above: Order Comment: Speci men Type: SPECIMEN FROM BONEOrdering Facility: [facility] Address: [address] [place] [address] Result Comment: Diag nostic interpretation performed at [facility], [address] [id number] CLIA# [id number] Waist Cutter: Sarwat Enamorado M.D. Performed By: #### S ####[facility] LABCLIA [id number] [address] LABORATORYCLIA [id number] [address] OF [facility] GROSS DESCRIPTION Normal [facility] Comment on above: Order Comment: Speci men Type: SPECIMEN FROM BONEOrdering Facility: [facility] Address: [address], [place] [address] Result Comment: A. 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 Totally submitted in 1 cassette following decalcification. MLG November 11, 2023 9:03 AM Gross examination performed at [facility], [address] [place] [address] Performed By: #### S ####[facility] LABCLIA [id number] [address] LABORATORYCLIA [id number] [address] XR FOOT 2V AP/LAT RTon 11-10 [...] IMPRESSION: Please see operative note for details Intensive Care Unit Registered Nurse: PSCB Transcribe Date/Time: Nov 10 2023 3:22P Dictated by : ARLIN CRUZ MD This examination was interpreted and the report reviewed and electronically signed by: ARLIN CRUZ MD on Nov 10 2023 3:24PM EST [id number] Normal [facility] CBC W Auto Differential pane l (Bld)on 11-03-2023 Basophils (Bld) [#/Vol] 0.05 10*3/uL Normal <0.11 [facility] Comment on above: Order Comment: Speci men Type: BLOOD SPECIMENOrdering Facility: [facility] Address: [address] [place] [address] Performed By: #### 5 7021-8 ####[facility] LABCLIA [id number] [place] [address] [place] Basophils/100 WBC (Bld) 0.6 % Normal [facility] Comment on above: Order Comment: Speci men Type: BLOOD SPECIMENOrdering Facility: [facility] Address: [address] [place] [address] Performed By: #### 5 7021-8 ####[facility] LABCLIA [id number] [place] [address] [place] Differential cell count method Nom (Bld) Auto Normal [facility] Comment on above: Order Comment: Speci men Type: BLOOD SPECIMENOrdering Facility: [facility] Address: [address] [place] [address] Performed By: #### 5 7021-8 ####[facility] LABCLIA [id number] [place] [address] [place] Eosinophils (Bld) [#/Vol] 0.41 10*3/uL Normal <0.46 [facility] Comment on above: Order Comment: Speci men Type: BLOOD SPECIMENOrdering Facility: [facility] Address: [address] [place] [address] Performed By: #### 5 7021-8 ####[facility] LABCLIA [id number] [place] [address] [place] Eosinophils/100 WBC (Bld) 4.9 % Normal [facility] Comment on above: Order Comment: Speci men Type: BLOOD SPECIMENOrdering Facility: [facility] Address: [address] [place] [address] Performed By: #### 5 7021-8 ####[facility] LABCLIA [id number] [place] [address] [place] Erythrocyte distribution width (RBC) [Ratio] 12.8 % Normal 11.5-15.0 [facility] Comment on above: Order Comment: Speci men Type: BLOOD SPECIMENOrdering Facility: [facility] Address: [address] [place] [address] Performed By: #### 5 7021-8 ####[facility] LABCLIA [id number] [place] [address] [place] Hematocrit (Bld) [Volume fraction] 40.9 % Normal 36.0-46.0 [facility] Comment on above: Order Comment: Speci men Type: BLOOD SPECIMENOrdering Facility: [facility] Address: [address] [place] [address] Performed By: #### 5 7021-8 ####[facility] LABIA [id number] [place] [address] [place] Hemoglobin (Bld) [Mass/Vol] 12.9 g/dL Normal 11.5-15.5 [facility] Comment on above: Order Comment: Speci men Type: BLOOD SPECIMENOrdering Facility: [facility] Address: [address] [place] [address] Performed By: #### 5 7021-8 ####[facility] LABIA [id number] [place] [address] [place] Immature granulocytes (Bld) [#/Vol] 0.05 10*3/uL Normal <0.10 [facility] Comment on above: Order Comment: Speci men Type: BLOOD SPECIMENOrdering Facility: [facility] Address: [address] [place] [address] Performed By: #### 5 7021-8 ####[facility] LABCLIA [id number] [place] [address] [place] Immature granulocytes/100 WBC (Bld) 0.6 % Normal [facility] Comment on above: Order Comment: Speci men Type: BLOOD SPECIMENOrdering Facility: [facility] Address: [address] [place] [address] Performed By: #### 5 7021-8 ####[facility] LABCLIA [id number] [place] [address] [place] Lymphocytes (Bld) [#/Vol] 2.95 10*3/uL Normal 1.00-4.00 [facility] Comment on above: Order Comment: Speci men Type: BLOOD SPECIMENOrdering Facility: [facility] Address: [address] [place] [address] Performed By: #### 5 7021-8 ####[facility] LABCLIA [id number] [place] [address] [place] Lymphocytes/100 WBC (Bld) 35.2 % Normal [facility] Comment on above: Order Comment: Speci men Type: BLOOD SPECIMENOrdering Facility: [facility] Address: [address] [place] [address] Performed By: #### 5 7021-8 ####[facility] LABIA [id number] [place] [address] [place] MCH (RBC) [Entitic mass] 28.6 pg Normal 26.0-34.0 [facility] Comment on above: Order Comment: Speci men Type: BLOOD SPECIMENOrdering Facility: [facility] Address: [address] [place] [address] Performed By: #### 5 7021-8 ####[facility] LABCLIA [id number] [place] [address] [place] MCHC (RBC) [Mass/Vol] 31.5 g/dL Normal 30.5-36.0 [facility] Comment on above: Order Comment: Speci men Type: BLOOD SPECIMENOrdering Facility: [facility] Address: [address] [place] [address] Performed By: #### 5 7021-8 ####[facility] LABCLIA [id number] [place] [address] [place] MCV (RBC) [Entitic vol] 90.7 fL Normal 80.0-100.0 [facility] Comment on above: Order Comment: Speci men Type: BLOOD SPECIMENOrdering Facility: [facility] Address: [address] [place] [address] Performed By: #### 5 7021-8 ####[facility] LABCLIA [id number] [place] [address] [place] Monocytes (Bld) [#/Vol] 0.63 10*3/uL Normal <0.87 [facility] Comment on above: Order Comment: Speci men Type: BLOOD SPECIMENOrdering Facility: [facility] Address: [address] [place] [address] Performed By: #### 5 7021-8 ####[facility] LABCLIA [id number] [place] [address] [place] Monocytes/100 WBC (Bld) 7.5 % Normal [facility] Comment on above: Order Comment: Speci men Type: BLOOD SPECIMENOrdering Facility: [facility] Address: [address] [place] [address] Performed By: #### 5 7021-8 ####[facility] LABCLIA [id number] [place] [address] [place] Neutrophils (Bld) [#/Vol] 4.30 10*3/uL Normal 1.45-7.50 [facility] Comment on above: Order Comment: Speci men Type: BLOOD SPECIMENOrdering Facility: [facility] Address: [address] [place] [address] Performed By: #### 5 7021-8 ####[facility] LABCLIA [id number] [place] [address] [place] Neutrophils/100 WBC (Bld) 51.2 % Normal [facility] Comment on above: Order Comment: Speci men Type: BLOOD SPECIMENOrdering Facility: [facility] Address: [address] [place] [address] Performed By: #### 5 7021-8 ####[facility] LABCLIA [id number] [place] [address] [place] Nucleated RBC (Bld) [#/Vol] 10*3/uL Normal <0.01 [facility] Comment on above: Order Comment: Speci men Type: BLOOD SPECIMENOrdering Facility: [facility] Address: [address] [place] [address] Performed By: #### 5 7021-8 ####[facility] LABIA [id number] [place] [address] [place] Nucleated RBC/100 WBC (Bld) [Ratio] 0.0 /100 WBC Normal [facility] Comment on above: Order Comment: Speci men Type: BLOOD SPECIMENOrdering Facility: [facility] Address: [address] [place] [address] Performed By: #### 5 7021-8 ####[facility] LABIA [id number] [place] [address] [place] Platelet mean volume (Bld) [Entitic vol] 10.2 fL Normal 9.0-12.7 [facility] Comment on above: Order Comment: Speci men Type: BLOOD SPECIMENOrdering Facility: [facility] Address: [address] [place] [address] Performed By: #### 5 7021-8 ####[facility] LABIA [id number] [place] [address] [place] Platelets (Bld) [#/Vol] 315 10*3/uL Normal 150-400 [facility] Comment on above: Order Comment: Speci men Type: BLOOD SPECIMENOrdering Facility: [facility] Address: [address] [place] [address] Performed By: #### 5 7021-8 ####[facility] LABCLIA [id number] [place] [address] [place] RBC (Bld) [#/Vol] 4.51 10*6/uL Normal 3.90-5.20 [facility] Comment on above: Order Comment: Speci men Type: BLOOD SPECIMENOrdering Facility: [facility] Address: [address] [place] [address] Performed By: #### 5 7021-8 ####[facility] LABCLIA [id number] [address] [address] [place] WBC (Bld) [#/Vol] 8.39 10*3/uL Normal 3.70-11.00 [facility] Comment on above: Order Comment: Speci men Type: BLOOD SPECIMENOrdering Facility: [facility] Address: [address] [place] [address] Performed By: #### 5 7021-8 ####[facility] LABCLIA [id number] [place] [address] [place] Comprehensive metabolic 2000 panelon 11-03-2023 Albumin [Mass/Vol] 4.8 g/dL Normal 3.9-4.9 [facility] Comment on above: Order Comment: Speci men Type: BLOOD SPECIMENOrdering Facility: [facility] Address: [address] [place] [address] Performed By: #### 2 4323-8 ####[facility] LABCLIA [id number] [place] [address] [place] ALP [Catalytic activity/Vol] 73 U/L Normal 34-123 [facility] Comment on above: Order Comment: Speci men Type: BLOOD SPECIMENOrdering Facility: [facility] Address: [address] [place] [address] Performed By: #### 2 4323-8 ####[facility] LABIA [id number] [place] [id number] [place] ALT [Catalytic activity/Vol] 14 U/L Normal 7-38 [facility] Comment on above: Order Comment: Speci men Type: BLOOD SPECIMENOrdering Facility: [facility] Address: [address] [place] [address] Performed By: #### 2 4323-8 ####[facility] LABCLIA [id number] [place] [address] [place] Anion gap [Moles/Vol] 13 mmol/L Normal 9-18 [facility] Comment on above: Order Comment: Speci men Type: BLOOD SPECIMENOrdering Facility: [facility] Address: [address] [place] [address] Performed By: #### 2 4323-8 ####[facility] LABCLIA [id number] [place] [address] [place] AST [Catalytic activity/Vol] 17 U/L Normal 13-35 [facility] Comment on above: Order Comment: Speci men Type: BLOOD SPECIMENOrdering Facility: [facility] Address: [address] [place] [address] Performed By: #### 2 4323-8 ####[facility] LABCLIA [id number] [place] [address] [place] Bilirubin [Mass/Vol] 0.2 mg/dL Normal 0.2-1.3 [facility] Comment on above: Order Comment: Speci men Type: BLOOD SPECIMENOrdering Facility: [facility] Address: [address] [place] [address] Performed By: #### 2 4323-8 ####[facility] LABCLIA [id number] [place] [address] [place] Calcium [Mass/Vol] 10.7 mg/dL High 8.5-10.2 [facility] Comment on above: Order Comment: Speci men Type: BLOOD SPECIMENOrdering Facility: [facility] Address: [address] [place] [address] Performed By: #### 2 4323-8 ####[facility] LABCLIA [id number] [place] [address] [place] Chloride [Moles/Vol] 101 mmol/L Normal 97-105 [facility] Comment on above: Order Comment: Speci men Type: BLOOD SPECIMENOrdering Facility: [facility] Address: [address] [place] [address] Performed By: #### 2 4323-8 ####[facility] LABCLIA [id number] [place] [address] [place] CO2 [Moles/Vol] 28 mmol/L Normal 22-30 [facility] Comment on above: Order Comment: Speci men Type: BLOOD SPECIMENOrdering Facility: [facility] Address: [address] [place] [address] Performed By: #### 2 4323-8 ####[facility] LABIA [id number] [address] [place] Creatinine [Mass/Vol] 0.92 mg/dL Normal 0.58-0.96 [facility] Comment on above: Order Comment: Speci men Type: BLOOD SPECIMENOrdering Facility: [facility] Address: [address] [place] [address] Performed By: #### 2 4323-8 ####[facility] LABIA [id number] [address] [place] Creatinine and Glomerular filtration rate.predicted panel (S/P/Bld) 71 mL/min/1.73m??? Normal >=60 [facility] Comment on above: Order Comment: Speci men Type: BLOOD SPECIMENOrdering Facility: [facility] Address: [address] [place] [address] Result Comment: Luis mated Glomerular Filtration Rate [...] actual GFR. Performed By: #### 2 4323-8 ####[facility] LABCLIA [id number] [place] [address] [place] Glucose [Mass/Vol] 125 mg/dL High 74-99 [facility] Comment on above: Order Comment: Speci men Type: BLOOD SPECIMENOrdering Facility: [facility] Address: [address] [place] [address] Result Comment: The [place] Diabetes Association (ADA) provides guidance for cutoff [...] Standards of Medical Care in Diabetes 2016, [place] Diabetes Association. Diabetes Care. 2016.39(Suppl 1). Performed By: #### 2 4323-8 ####[facility] LABCLIA [id number] [place] [address] [place] Potassium [Moles/Vol] 4.9 mmol/L Normal 3.7-5.1 [facility] Comment on above: Order Comment: Speci men Type: BLOOD SPECIMENOrdering Facility: [facility] Address: [address] [place] [address] Performed By: #### 2 4323-8 ####[facility] LABCLIA [id number] [place] [address] [place] Protein [Mass/Vol] 7.8 g/dL Normal 6.3-8.0 [facility] Comment on above: Order Comment: Speci men Type: BLOOD SPECIMENOrdering Facility: [facility] Address: [address] [place] [address] Performed By: #### 2 4323-8 ####[facility] LABCLIA [id number] [place] [address] [place] Sodium [Moles/Vol] 142 mmol/L Normal 136-144 [facility] Comment on above: Order Comment: Speci men Type: BLOOD SPECIMENOrdering Facility: [facility] Address: [place] [address] Performed By: #### 2 4323-8 ####[facility] LABCLIA [id number] [place] [address] [place] Urea nitrogen [Mass/Vol] 25 mg/dL High 7-21 [facility] Comment on above: Order Comment: Speci men Type: BLOOD SPECIMENOrdering Facility: [facility] Address: [place] [address] Performed By: #### 2 4323-8 ####[facility] LABCLIA [id number] [address] [place] HISTORY PHYSICALon HISTORY PHYSICAL HNO ID: [id number] Author: Wiliam Daniels APRN.FREIGHT HANDLER Service: ? Author Type: Nurse Practitioner Type: [...] large neck Non-male patient STOP-Bang Score: 2 [id number] Score: Age: <65 Sex: Female CHF history: No Hypertension history: Yes Stroke/TIA/thromboembol ism history: No Diabetes history: Yes [id number] Score: 3 ANESTHESIA FINDINGS: Intubation History: No [...] dyspnea, pratik (more content not included)... Normal [facility] HbA1c (Bld)on 11-03-2023 Average glucose Estimated from glycated hemoglobin (Bld) [Mass/Vol] 126 mg/dL Normal [facility] Comment on above: Order Comment: Shlomo ghosh Type: BLOOD SPECIMENOrdering Facility: [facility] Address: [address] [place] [address] Result Comment: eAG: (Estimated average glucose) is a calculated value from HgbA1c and is key account representative of the average blood glucose level in the last 2-3 month period. Performed By: #### 5 5454-3 ####[facility] LABCLIA [id number] [facility] [id number] [place] [address] [place] HbA1c (Bld) [Mass fraction] 6.0 % High 4.3-5.6 [facility] Comment on above: Order Comment: Speci men Type: BLOOD SPECIMENOrdering Facility: [facility] Address: [address] [place] [address] Result Comment: [place] Diabetes Association guidelines indicate that patients with HgbA1c in the range 5.7-6.4% are at increased risk for development of diabetes, and intervention by lifestyle modification may be beneficial. HgbA1c greater or equal to 6.5% is considered diagnostic of diabetes. Performed By: #### 5 5454-3 ####[facility] LABCLIA [id number] [facility] [id number] [place], [place] [address] [place] CT ANKLE WO IVCON RTon 10-14 CT ANKLE WO IVCON RT * * *Final Report* * * DATE OF EXAM: Oct 14 2023 12:19PM [facility] 0061 - CT ANKLE WO [...] OF MULTIPLE SCREWS IN THE MIDFOOT DESCRIBED. Intensive Care Unit Registered Nurse: SUBHASH Transcribe Date/Time: Oct 14 2023 12:22P Dictated by : LATRICIA LIN MD This examination was interpreted and the report reviewed and electronically signed by: LATRICIA LIN MD on Oct 14 2023 1:12PM EST [id number] Normal [facility] CNOVon 10-11-2023 CNOV Office Visit (ORTHLD ) MARIE SEXTON ([id number]) 1960 F Date Time Provider Department 10/11/23 [...] OBJECTIVE: Patient (more content not included)... Normal [facility] XR FOOT 3V AP/LAT/OBL BILon 10-11-2023 [...] left foot, possibly due to Charcot arthropathy Intensive Care Unit Registered Nurse: SUBHASH Transcribe Date/Time: Oct 14 2023 9:07A Dictated by : REGI WOODS MD This examination was interpreted and the report reviewed and electronically signed by: REGI WOODS MD on Oct 14 2023 9:15AM EST [id number] Normal [facility] CNOVon 09-06-2023 CNOV Office Visit (JAE ) MARIE SEXTON ([id number]) 1960 F Date Time Provider Department 09/06/23 [...] peripheral weakness/ (more content not included)... Normal [facility] XR ANKLE 3V AP/LAT/OBL LTon 09-06-2023 [...] concern for Charcot foot. Please clinically correlate. Intensive Care Unit Registered Nurse: SUBHASH Transcribe Date/Time: Sep 09 2023 8:54A Dictated by : AGAPITO PINZON MD This examination was interpreted and the report reviewed and electronically signed by: AGAPITO PINZON MD on Sep 09 2023 9:15AM EST [id number] Normal [facility] XR ANKLE 3V AP/LAT/OBL RTon 09-06-2023 [...] concern for Charcot foot. Please clinically correlate. Intensive Care Unit Registered Nurse: SUBHASH Transcribe Date/Time: Sep 09 2023 8:54A Dictated by : AGAPITO PINZON MD This examination was interpreted and the report reviewed and electronically signed by: AGAPITO PINZON MD on Sep 09 2023 9:15AM EST [id number] Normal [facility] CNOVon 08-05-2023 CNOV Office Visit (ORTHLD ) DARSHANMARIE TRINIDAD ([id number]) 1960 F Date Time Provider Department 08/05/23 [...] ROS obtain (more content not included)... Normal [facility] XR ANKLE 3V AP/LAT/OBL RTon 08-05-2023 [...] joints visible in the lateral projection only. Intensive Care Unit Registered Nurse: PSCB Transcribe Date/Time: Aug 09 2023 12:30P Dictated by : REGI WOODS MD This examination was interpreted and the report reviewed and electronically signed by: REGI WOODS MD on Aug 09 2023 12:34PM EST [id number] Normal [facility] ALBUMIN, URINE SPOTon 2022 ALBUMIN,URINE <7.0 Normal Not Established [facility] Comment on above: Performed By: #### A LBSP #### [facility] [address] [place] [address] ALBUMIN/CREAT RATIO SEE COMMENT Normal 0.0 - 30.0 [facility] Comment on above: Result Comment: One or more analytes used in this calculation is outside of the analytical measurement range. Calculation cannot be performed. Performed By: #### A LBSP #### [facility] [address] [place] [address] CREATININE,URINE 147.0 mg/dL Normal 20.0 - 320.0 [facility] Comment on above: Performed By: #### A LBSP #### [facility] [address] [place] [address] CBC AND DIFFERENTIALon 07-27 % AUTOMATED IMMATURE GRAN 0.3 % Normal 0.0 - 0.9 [facility] Comment on above: Result Comment: Coni ture Granulocyte Count (IG) includes promyelocytes, myelocytes and metamyelocytes but does not include bands. Percent differential counts (%) should be interpreted in the context of the absolute cell counts (cells/L). Performed By: #### C BCDF #### [address] [address] Basophils (Bld) [#/Vol] 0.06 10*3/uL Normal 0.00 - 0.10 [facility] Comment on above: Performed By: #### C BCDF #### [address] [address] Basophils/100 WBC (Bld) 0.9 % Normal 0.0 - 2.0 [facility] Comment on above: Performed By: #### C BCDF #### [address] [address] Eosinophils (Bld) [#/Vol] 0.28 10*3/uL Normal 0.00 - 0.70 [facility] Comment on above: Performed By: #### C BCDF #### [address] [address] Eosinophils/100 WBC (Bld) 4.1 % Normal 0.0 - 6.0 [facility] Comment on above: Performed By: #### C BCDF #### [address] [address] Erythrocyte distribution width (RBC) [Ratio] 12.6 % Normal 11.5 - 14.5 [facility] Comment on above: Performed By: #### C BCDF #### [address] [address] Hematocrit (Bld) [Volume fraction] 40.3 % Normal 36.0 - 46.0 [facility] Comment on above: Performed By: #### C BCDF #### [address] [address] Hemoglobin (Bld) [Mass/Vol] 13.0 g/dL Normal 12.0 - 16.0 [facility] Comment on above: Performed By: #### C BCDF #### [address] [address] Lymphocytes (Bld) [#/Vol] 2.95 10*3/uL Normal 1.20 - 4.80 [facility] Comment on above: Performed By: #### C BCDF #### [address] [place] [address] Lymphocytes/100 WBC (Bld) 42.8 % Normal 13.0 - 44.0 [facility] Comment on above: Performed By: #### C BCDF #### [address] [address] MCHC (RBC) [Mass/Vol] 32.3 g/dL Normal 32.0 - 36.0 [facility] Comment on above: Performed By: #### C BCDF #### [address] [address] MCV (RBC) [Entitic vol] 91 fL Normal 80 - 100 [facility] Comment on above: Performed By: #### C BCDF #### [address] [address] Monocytes (Bld) [#/Vol] 0.54 10*3/uL Normal 0.10 - 1.00 [facility] Comment on above: Performed By: #### C BCDF #### [address] [address] Monocytes/100 WBC (Bld) 7.8 % Normal 2.0 - 10.0 [facility] Comment on above: Performed By: #### C BCDF #### [address] [address] Neutrophils (Bld) [#/Vol] 3.05 10*3/uL Normal 1.20 - 7.70 [facility] Comment on above: Performed By: #### C BCDF #### [address] [address] Neutrophils/100 WBC (Bld) 44.1 % Normal 40.0 - 80.0 [facility] Comment on above: Performed By: #### C BCDF #### [address] [address] NUCLEATED RBC 0.0 /100 WBC Normal 0.0 - 0.0 [facility] Comment on above: Performed By: #### C BCDF #### [address] [address] Platelets (Bld) [#/Vol] 358 10*3/uL Normal 150 - 450 [facility] Comment on above: Performed By: #### C BCDF #### [facility] [address] [place] [address] RBC 4.42 x10E12/L Normal 4.00 - 5.20 [facility] Comment on above: Performed By: #### C BCDF #### [facility] [address] [place] [address] WBC (Bld) [#/Vol] 6.9 10*3/uL Normal 4.4 - 11.3 [facility] Comment on above: Performed By: #### C BCDF #### [facility] [address] [place] [address] COMPREHENSIVE PANELon 2022 Albumin [Mass/Vol] 4.5 g/dL Normal 3.4 - 5.0 [facility] Comment on above: Performed By: #### C OVSC #### [facility] [address] [place] [address] ALP [Catalytic activity/Vol] 85 U/L Normal 33 - 136 [facility] Comment on above: Performed By: #### C OVSC #### [facility] [address] [place] [address] ALT [Catalytic activity/Vol] 14 U/L Normal 7 - 45 [facility] Comment on above: Result Comment: Shaista ents treated with Sulfasalazine may generate falsely decreased results for ALT. Performed By: #### C OVSC #### [facility] [address] [place] [address] Anion gap [Moles/Vol] 11 mmol/L Normal 10 - 20 [facility] Comment on above: Performed By: #### C OVSC #### [facility] [address] [place] [address] AST [Catalytic activity/Vol] 14 U/L Normal 9 - 39 [facility] Comment on above: Performed By: #### C OVSC #### [facility] [address] [place] [address] Bilirubin [Mass/Vol] 0.4 mg/dL Normal 0.0 - 1.2 [facility] Comment on above: Performed By: #### C OVSC #### [facility] [address] [place] [address] Calcium [Mass/Vol] 9.7 mg/dL Normal 8.6 - 10.3 [facility] Comment on above: Performed By: #### C OVSC #### [facility] [address] [place] [address] Chloride [Moles/Vol] 105 mmol/L Normal 98 - 107 [facility] Comment on above: Performed By: #### C OVSC #### [facility] [address] [place] [address] Creatinine [Mass/Vol] 1.06 mg/dL High 0.50 - 1.05 [facility] Comment on above: Performed By: #### C OVSC #### [facility] [address] [place] [address] GFR/1.73 sq M.predicted among non-blacks MDRD (S/P/Bld) [Vol rate/Area] 59 mL/min/{1.73_m2} Abnormal >90 [facility] Comment on above: Result Comment: CALC ULATIONS OF ESTIMATED GFR ARE PERFORMED USING THE 2020 CKD-EPI STUDY REFIT EQUATION WITHOUT THE RACE VARIABLE FOR THE IDMS-TRACEABLE CREATININE METHODS. https://jasn.asnjournals.org/content//ASN.1318326 988 Performed By: #### C OVSC #### [facility] [address] [place] [address] Glucose [Mass/Vol] 109 mg/dL High 74 - 99 [facility] Comment on above: Performed By: #### C OVSC #### [facility] [address] [place] [address] HCO3 (Bld) [Moles/Vol] 28 mmol/L Normal 21 - 32 [facility] Comment on above: Performed By: #### C OVSC #### [facility] [address] [place] [address] Potassium [Moles/Vol] 4.2 mmol/L Normal 3.5 - 5.3 [facility] Comment on above: Performed By: #### C OVSC #### [facility] [address] [place] [address] Protein [Mass/Vol] 7.7 g/dL Normal 6.4 - 8.2 [facility] Comment on above: Performed By: #### C OVSC #### [facility] [address] [place] [address] Sodium [Moles/Vol] 140 mmol/L Normal 136 - 145 [facility] Comment on above: Performed By: #### C OVSC #### [facility] [address] [place] [address] Urea nitrogen [Mass/Vol] 23 mg/dL Normal 6 - 23 [facility] Comment on above: Performed By: #### C OVSC #### [facility] [address] [place] [address] HEMOGLOBIN A1Con 07-27-2023 Glucose [Mass/Vol] 128 mg/dL Normal [facility] Comment on above: Performed By: #### A LBSP #### [facility] [address] [place] [address] HbA1c (Bld) [Mass fraction] 6.1 % Abnormal [facility] Comment on above: Result Comment: Diag nosis of Diabetes-Adults Non-Diabetic: < or = 5.6% Increased risk for developing diabetes: 5.7-6.4% Diagnostic of diabetes: > or = 6.5% . Monitoring of Diabetes Age (y) Therapeutic Goal (%) Adults: >18 <7.0 Pediatrics: 13-18 <7.5 7-12 <8.0 0- 6 7.5-8.5 [employer] [place] [employer]. Diabetes Care 33(S1), Nov 2009. Performed By: #### A LBSP #### [facility] [address] [place] [address] LDL, DIRECTon 07-27-2023 Cholesterol in LDL [Mass/Vol] 106 mg/dL Normal 0 - 129 [facility] Comment on above: Result Comment: Elev ated levels of LDL cholesterol are recognized as a fisher factor in the development of atherosclerosis and CHD. The direct LDL cholesterol test can be used to assess cardiovascular risk and monitor therapy as a follow up to a lipid profile when triglycerides are significantly elevated. Performed By: #### A LBSP #### [facility] [address] [place] [address] LIPID PANEL (CORONARY RISK 2 )on 07-27-2023 Cholesterol [Mass/Vol] 183 mg/dL Normal 0 - 199 [facility] Comment on above: Result Comment: [...] Performed By: #### C OVSC #### [facility] [address] [place] [address] Cholesterol in HDL [Mass/Vol] 33.1 mg/dL Abnormal [facility] Comment on above: Result Comment: . AGE VERY LOW LOW NORMAL HIGH 0-19 Y < 35 < 40 40-45 ---- 20-24 Y ---- < 40 >45 ---- >24 Y ---- < 40 40-60 >60 . Performed By: #### C OVSC #### [facility] [address] [place] [address] Cholesterol in LDL [Mass/Vol] 92 mg/dL Normal 0 - 99 [facility] Comment on above: Result Comment: . NEAR BORD AGE DESIRABLE OPTIMAL HIGH HIGH VERY HIGH 0-19 Y 0 - 109 --- 110-129 >/= 130 ---- 20-24 Y 0 - 119 --- 120-159 >/= 160 ---- >24 Y 0 - 99 100-129 130-159 160-189 >/=190 . Performed By: #### C OVSC #### [facility] [address] [place] [address] Cholesterol in VLDL [Mass/Vol] 58 mg/dL High 0 - 40 [facility] Comment on above: Performed By: #### C OVSC #### [facility] [address] [place] [address] Cholesterol.total/Ch olesterol in HDL [Mass ratio] 5.5 {ratio} Abnormal [facility] Comment on above: Result Comment: REF VALUES DESIRABLE < 3.4 HIGH RISK > 5.0 Performed By: #### C OVSC #### [facility] [address] [place] [address] NON-HDL CHOLESTEROL 150 mg/dL Normal [facility] Comment on above: Result Comment: AGE DESIRABLE BORDERLINE HIGH HIGH VERY HIGH 0-19 Y 0 - 119 120 - 144 >/= 145 >/= 160 20-24 Y 0 - 149 150 - 189 >/= 190 ---- >24 Y 30 MG/DL ABOVE LDL CHOLESTEROL GOAL . Performed By: #### C OVSC #### [facility] [address] [place] [address] Triglyceride [Mass/Vol] 288 mg/dL High 0 - 149 [facility] Comment on above: Result Comment: [...] dosing. Performed By: #### C OVSC #### [facility] [address] [place] [address] TSHon 07-27-2023 TSH Qn 0.61 m[IU]/L Normal 0.44 - 3.98 [facility] Comment on above: Result Comment: TSH testing is performed using different testing methodology at [facility] than at other [facility]. Direct result comparisons should only be made within the same method. Performed By: #### A LBSP #### [facility] [address] [place] [address] VITAMIN B12on 07-27-2023 Cobalamin (Vitamin B12) [Mass/Vol] 1408 pg/mL High 211 - 911 [facility] Comment on above: Performed By: #### V TB12 #### [facility] [address] [place] [address] VITAMIN D, 25-HYDROXYon 07-16 VITAMIN D, 25-HYDROXY 50 ng/mL Normal [facility] Comment on above: Result Comment: . DEFICIENCY: < 20 NG/ML INSUFFICIENCY: 20-29 NG/ML SUFFICIENCY: 30-100 NG/ML THIS ASSAY ACCURATELY QUANTIFIES THE SUM OF VITAMIN D3, 25-HYDROXY AND VIT D2,25-HYDROXY. Performed By: #### V TDOH #### [facility] [address] [place] [address] ALLIED HEALTHon 07-02-2023 ALLIED HEALTH HNO ID: [id number] Author: Francesca Kaur Service: Radiology Author Type: ? Type: Allied Health Filed: 07/02/2023 10:12 AM Note Text: RADIOLOGY SERVICE PROGRESS NOTE DATE OF SERVICE: July 02, 2023 TIME OF SERVICE: 10:03AM EVENT: ARRIVED IN WHEELCHAIR ADDITIONAL EVENT DETAILS: NA SIGNATURE: Francesca Kaur PATIENT NAME: Marie Sexton DATE: July 02, 2023 TIME: 10:12 AM PAGER/CONTACT #: [facility] CNOVon 07-02-2023 CNOV Office Visit (ORFWHP ) MARIE SEXTON ([id number]) 1960 F Date Time Provider Department 07/02/23 [...] No new joint (more content not included)... [facility] XR ANKLE 3V AP/LAT/OBL RTon 07-02-2023 [...] appears intact. Pes planus. IMPRESSION: Postsurgical changes. Intensive Care Unit Registered Nurse: SUBHASH Transcribe Date/Time: Jul 07 2023 7:59A Dictated by : SREE BUTTS MD This examination was interpreted and the report reviewed and electronically signed by: SREE BUTTS MD on Jul 07 2023 8:02AM EST [id number] [facility] CNOVon 06-07-2023 CNOV Office Visit (ORTHLD ) MARIE SEXTON ([id number]) 1960 F Date Time Provider Department 06/07/23 [...] habits, hematoche (more content not included)... Normal [facility] Office Visit (ORTHLD ) MARIE SEXTON ([id number]) 1960 F Date Time Provider Department 06/07/23 11:30 AM [facility] [employer] [facility] ORTHKRISTEN During your visit today, we recorded the following information about you: Mahendra Prajapati MA 06/07/2023 2:52 PM Signed Marie presents today for splint removal. Marie's splint was removed and skin cleansed. Marie tolerated this procedure well. Directed Marie and daughter to xray prior to appt w/ Dr. Santos. Mahendra Prajapati MA Splint was removed by Lorraine Yancey, RN Referring Provider: MACARIO SANTOS [[id number]] Allergies As of Date: 06/07/2023 Noted Allergy [...] As Of Date 06/07/2023 Noted Resolved diabetes [[id number]] 05/17/2023 Neuropathy [G62.9] Hallux extensus, acquired [M20.5X9] [...] Status:Closed by MAHENDRA PRAJAPATI on 06/07/23 Normal [facility] XR ANKLE 3V AP/LAT/OBL RTon 06-07-2023 [...] IMPRESSION: Postoperative findings as given the results. Intensive Care Unit Registered Nurse: SUBHASH Transcribe Date/Time: Jun 10 2023 11:03A Dictated by : FANG HOLLOWAY MD This examination was interpreted and the report reviewed and electronically signed by: FANG HOLLOWAY MD on Jun 10 2023 11:06AM EST [id number] Normal [facility] CNOVon 05-27-2023 CNOV Office Visit (ORFWHP ) MARIE SEXTON ([id number]) 1960 F Date Time Provider Department 05/27/23 [...] As Of Date 05/27/2023 Noted Resolved diabetes [[id number]] 05/17/2023 Neuropathy [G62.9] Hallux extensus, acquired [M20.5X9] [...] Status:Closed by REGI CHERRY MA on 05/27/23 [facility] Bimal 05-24-2023 CNPN Telephone (FVFOPR) MARIE SEXTON ([id number]) 1960 F Date Time Provider Department 05/24/23 [...] Mara Stallworth RN Acute Pain Management Service [facility] Allergies As of Date: 05/24/2023 Noted [...] As Of Date 05/24/2023 Noted Resolved diabetes [[id number]] 05/17/2023 Neuropathy [G62.9] Hallux extensus, acquired [M20.5X9] [...] Encounter Status:Closed by BRIGETTE STALLWORTH on 05/24/23 [facility] 05-23-2023 JOSE ALBERTO Telephone (MAHESH) MARIE SEXTON ([id number]) 1960 F Date Time Provider Department 05/23/23 KAYLYN LONDON During your visit today, we recorded the following information about you: Kaylyn London APRN.[employer] 05/23/2023 9:41 AM Signed Attempted to call pt to check on status of CADD pump. No answer, left detailed VM. Kaylyn London APRN.[employer] Allergies As of Date: 05/23/2023 Noted Allergy [...] As Of Date 05/23/2023 Noted Resolved diabetes [FMC7137] 05/17/2023 Neuropathy [G62.9] Hallux extensus, acquired [M20.5X9] [...] Encounter Status:[facility] MAR[facility]EXT[facility] ([id number]) 1960 F Date Time Provider Department 05/19/23 BRIGETTE STALLWORTH FVFOPR During your visit today, we recorded the following information about you: Brigette Stallworth RN 05/19/2023 3:16 PM Signed Pt is POD# 2. S/P Right Leg removal of deep hardware Right Ankle fusion Right subtalar joint fusion Fibular osteotomy right ankle Orrtanna of bone marrow autograft right leg with [...] Mara Stallworth RN Acute Pain Management Service [facility] Allergies As of Date: 05/19/2023 Noted [...] As Of Date 05/19/2023 Noted Resolved diabetes [[id number]] 05/17/2023 Neuropathy [G62.9] Hallux extensus, acquired [M20.5X9] [...] Encounter Status:Closed by BRIGETTE STALLWORTH on 05/19/23 [facility] CONSULT PROGon 05-18-2023 CONSULT PROG HNO ID: [id number] Author: Donell Khoury PA-C Service: Pain Management Author Type: Physician Access Control Specialist Type: Consult Progress Note Filed: 05/18/2023 8:35 AM Note Text: PERIPHERAL NERVE CATHETER PROGRESS NOTE PATIENT NAME: Marie Sexton SERVICE DATE: 05/18/2023 SERVICE TIME: 7:28 AM ASSESSMENT Marie Sexton is a 63 year old female who is POD# 1 Right Leg removal of deep hardware Right Ankle fusion Right subtalar joint fusion Fibular osteotomy right ankle Orrtanna of bone marrow autograft right leg Patient reports good pain control [address]. Adductor canal and Popliteal PNC running per CADD 0.2% @ 04/18/30. Dilaudid PRN and Roxicodone on board minimal usage with PNC in place. PLAN Continue current pain regimen, will follow. Patient with CADD pumps in place patient may go home with PNC in place and Prevacus will call patient daily. SUBJECTIVE CHIEF COMPLAINT: Marie Sexton is a 63 year old female who is POD# 1 Right Leg removal of deep hardware Right Ankle fusion Right subtalar joint fusion Fibular osteotomy right ankle Orrtanna of bone marrow autograft right leg PRIMARY [...] which included preparing to see the patient, [id number] patient care, completing clinical documentation, obtaining and/or reviewing separately obtained history, performing a medically appropriate examination, counseling and educating the patient/family/caregive r, and communicating results to the patient/family/caregive r. SIGNATURE: Donell Khoury PA-C PATIENT NAME: Marie Sexton DATE: May 18, 2023 TIME: 7:28 AM PAGER/CONTACT #: [facility] [phone] [facility] HISTORY PHYSICALon HISTORY PHYSICAL HNO ID: [id number] Author: Alannah Whiteside MD Service: Hospital Medicine Author Type: Physician Type: HANDP Filed: 05/17/2023 10:51 PM Note Text: Hospital Medicine Consult History and Physical PRIMARY SERVICE: HOSPITAL MEDICINE Days: [facility] hospital medicine team pager Evenings: [facility] hospital medicine pager [phone] PATIENT NAME: Marie Sexton DATE of SERVICE: [...] subtalar joint fusion Fibular osteotomy right ankle Orrtanna of bone marrow autograft right leg SOCIAL [...] TIME: 10:50 PM Discussed with: Patient Normal [facility] ANES POSTPROC EVALon 023 ANES POSTPROC EVAL HNO ID: [id number] Author: Amelia Camara MD Service: Critical Care [...] May 17, 2023 TIME: 3:32 PM CSN: [id number] [facility] ANES PRE-OPon 05-17-2023 ANES PRE-OP HNO ID: [id number] Author: SÁNCHEZ Junior Service: Critical Care Author Type: Manager Ent Type: Anesthesia Preprocedure Evaluation Filed: 05/17/2023 8:12 [...] Ankle) - POPLITEAL BLOCK Isto Bone graft; [place] TTC Nail and headless 6.5 and 5.5 screws; Floyd Large screw removal (5.0, 6.5) Isto confirmed by José Miguel Bridges - kf 05/11 [place] confirmed with Og Trevino - milena 05/11 [employer] specialty screw removal set ARTHRODESIS SUBTALAR (Right: Ankle) REMOVAL HARDWARE ANKLE (Right: Ankle) DIAGNOSTIC BONE MARROW ASPIRATION(S) (Right: Ankle) REPAIR DISLOCATING PERONEAL TENDONS/FIBULAR OSTEOTOMY (Right: Ankle) Location: [facility] OR08 / [facility] Surgeons: Macaroi Santos DPM Estimated body mass index is [...] Units by INJECTION(UNSPECIFI (more content not included)... [facility] BRIEF OP NOTon 05-17-2023 BRIEF OP NOT HNO ID: [id number] Author: Macario Santos DPM Service: Podiatry Author Type: Physician Type: Brief Op Note Filed: 05/17/2023 10:59 AM Note Text: PODIATRIC SURGERY BRIEF OPERATIVE NOTE LOG ID: [id number] Surgery/Procedure Date: 05/17/2023 Incision/Procedure Start Time: 8:25 AM Incision Close/Procedure End Time: Surgeon(s)/Proceduralis t(s) and Access Control Specialist(s): Surgeon(s) and Role: * Macario Santos DPM - Primary Physician Access Control Specialist: Leslie Malick, PA-C Procedure(s): Right Leg removal of deep hardware Right Ankle fusion Right subtalar joint fusion Fibular osteotomy right ankle Orrtanna of bone marrow autograft right leg Anesthesia: General Findings: Well aligned rearfoot Estimated Blood Loss: 100 mls Specimens: None Complications: NONE Pre-Op/Pre-Procedure Diagnosis: 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 Took bed close to the bathroom and with assistance helped her to the bathroom with a walker (2 person assist). [facility] NURSING PROG HNO ID: [id number] Author: Francesca Young RN Service: Nursing Author [...] overnight. He is putting orders in now. [facility] NURSING PROG HNO ID: [id number] Author: Melodie Lorenzo RN Service: Nursing Author [...] certain she will be okay at home. [facility] NURSING PROG HNO ID: [id number] Author: Brigette Stallworth RN Service: Pain Management Author Type: Registered Nurse Type: Nursing Progress Note Filed: 05/17/2023 7:24 AM Note Text: RIGHT popliteal nerve block with catheter RIGHT adductor nerve block with catheter Dr. Smith and Dr. Barbour Patient verbalized understanding of nerve block procedure. [facility] NURSING PROG HNO ID: [id number] Author: Gracie Abraham RN Service: Nursing Author [...] (RECOMMENDATION): None Electronically Signed By: Gracie Abraham [facility] OPERATIVE NOon 05-17-2023 OPERATIVE NO HNO ID: [id number] Author: Macario Santos DPM Service: Podiatry Author Type: Physician Type: Operative Report Filed: 05/17/2023 1:58 PM Note Text: SURGERY OPERATIVE NOTE LOG ID: [id number] Surgery/Procedure Date: 05/17/2023 Incision/Procedure Start Time: 8:25 AM Incision Close/Procedure End Time: 11:33 AM Surgeon(s)/Proceduralis t(s) and Access Control Specialist(s): Surgeon(s) and Role: * Macario Santos DPM - Primary Physician Access Control Specialist: Leslie Teresa PA-C PRE-OP/PRE-PROCEDURE DIAGNOSIS: 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 Once this was completed the [place] nail was placed into the leg and [...] available to assist. (more content not included)... [facility] XR ANKLE 2V AP/LAT RTon XR ANKLE 2V AP/LAT RT * * *Final Report* * * DATE OF EXAM: May 17 2023 10:49AM [facility] [id number] - XR ANKLE 2V AP/LAT [...] Please see procedure report for complete details. Intensive Care Unit Registered Nurse: SUBHASH Transcribe Date/Time: May 17 2023 2:29P Dictated by : MIGUEL HERNANDEZ MD This examination was interpreted and the report reviewed and electronically signed by: MIGUEL HERNANDEZ MD on May 17 2023 2:33PM EST [id number] [facility] NM CARDIAC PERF STRESS/PHARM on 05-14-2023 NM CARDIAC PERF STRESS/PHARM * * *Final Report* * * DATE OF EXAM: May 14 2023 2:02PM [facility] 0006 - [place] CARDIAC PERF STRESS/PHARM / PROCEDURE REASON: Preoperative cardiovascular examination * * * * Physician Interpretation * * * * Stress Panel Machine Tender Report: [facility] Date of service: 05/14/2023 12:27:48 [...] later. See administered radiotracer and doses below. [facility] Date of service: 05/14/2023 12:27:48 PM [...] * * * ---- NM CTAC Report: [facility] Date of service: 05/14/2023 12:27:48 PM CTAC interpreting physician: Patrice Dalton MD PATIENT: Name: MARIE SEXTON Age: 63 years Gender: F 1. Incidental Findings from limited non-diagnostic CTAC: - Coronary calcifications visualized. * * * Final * * * ---- Stress ECG Report: [facility] FELIX-2 Date of service: 05/14/2023 12:27:48 PM Ordering physician: DANA GOYAL logging specialist: Rosina Gonzalez Access Control Specialist: Prem Shields Fellow: Annabelle Woodard MD and [...] 51% of (more content not included)... Normal [facility] PVR ANK/VILCHIS/TOE FRANCESCO VAS LAB on 05-14-2023 PVR ANK/VILCHIS/TOE FRANCESCO VAS LAB Non-Invasive Vascular Laboratory [facility] F30 Lower Extremity Arterial Physiology Study [...] physician: Casie Moore MD, CYNTHIA Final CC [employer] Image : [id number] oDynamicsSISUID See Link below for Image Normal [facility] LEG ARTERIAL PERIPH FRANCESCO V LABon 05-14-2023 LEG ARTERIAL PERIPH FRANCESCO VAS LAB Non-Invasive Vascular Laboratory [facility] F30 Lower Extremity Arterial Duplex Bilateral/Complete [...] Final CC [employer] Image : [id number]. (more content not included)... Normal [facility] HISTORY PHYSICALon HISTORY PHYSICAL HNO ID: [id number] Author: Indiana Clemens PA-C Service: ? Author Type: Physician Access Control Specialist Type: HANDP Filed: 05/14/2023 4:12 PM Note [...] 160-4.5 mcg/actuati (more content not included)... Normal [facility] CNOVon 05-07-2023 CNOV Office Visit (CARINF ) DARSHANMARIE Parks ([id number]) 1960 F Date Time Provider Department 05/07/23 2:00 PM DANA GOYAL During your visit today, we recorded the following information about you: Pulse Blood pressure 68/minute 120/66 Dana Goyal MD 05/07/2023 3:11 PM Signed [facility] [place] Natalia Shrestha Department of Cardiovascular Medicine SECTION OF INTERVENTIONAL CARDIOLOGY OUTPATIENT VISIT DATE 05/07/2023 OUTPATIENT VISIT TYPE New PRIMARY CARE PHYSICIAN: Collins Andrews ([facility]) [address] [place] [address] REFERRING PHYSICIAN: No referring provider defined for [...] meals. hydrochlorothiazide (more content not included)... Normal [facility] FCD94id 05-07-2023 ECG01 Ventricular Rate : 6 8 BPM Atrial Rate : 68 BPM P-R Interval : 156 ms QRS Duration : 74 ms Q-T Interval : 394 ms QTC Calculation(Bazett) : 418 ms Calculated P Melfa : 55 degrees Calculated R Melfa : 52 degrees Calculated T Melfa : 64 degrees NORMAL SINUS RHYTHM NORMAL ECG Confirmed by MOIZ MAHER MD ([id number]) on 05/17/2023 10:36:53 AM NAME : MARIE SEXTON PID : [id number] : 1960 Gender : Female Race : [...] : , Acquired by : , Eusebio [facility] Bimal 05-05-2023 CNPN Telephone (ORFWHP) DARSHANMARIE TRINIDAD ([id number]) 1960 F Date Time Provider Department 05/05/23 MACARIO SANTOS [facility]IN [facility] During your visit today, we recorded the following information about you: Pennie Isbellyt Pss 05/05/2023 1:47 PM Signed interventional radiologist spoke to patient with her daughter(Jennifer) regarding [...] As Of Date 05/05/2023 Noted Resolved diabetes [MYQ5954] Neuropathy [G62.9] Hallux extensus, acquired [M20.5X9] HTN (hypertension) [I10] IBS (irritable bowel syndrome) [K58.9] Arthritis [M19.90] Diabetic foot ulcer [E11.621, L97.509] 12/21/2013 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 [facility] 04-22-2023 [facility] Office Visit (JAE ) MARIE SEXTON ([id number]) 1960 F Date Time Provider Department 04/22/23 [...] numbness o (more content not included)... Normal [facility] CT ANKLE WO IVCON RIGHTon [facility] CT ANKLE WO IVCON RTon 04-22 CT ANKLE WO IVCON RT * * *Final Report* * * DATE OF EXAM: Apr 22 2023 3:55PM [facility] 0061 - CT ANKLE WO IVCON RT [...] the right foot and ankle as described. Intensive Care Unit Registered Nurse: PSCB Transcribe Date/Time: Apr 22 2023 4:18P Dictated by : COLLINS BENJAMIN MD This examination was interpreted and the report reviewed and electronically signed by: COLLINS BENJAMIN MD on Apr 22 2023 4:22PM EST [id number] Normal [facility] XR ANKLE 3V AP/LAT/OBL RTon 04-22-2023 [...] the hindfoot and midfoot without complication identified. Intensive Care Unit Registered Nurse: SUBHASH Transcribe Date/Time: Apr 23 2023 4:47P Dictated by : RAMIRO PAEZ MD This examination was interpreted and the report reviewed and electronically signed by: RAMIRO PAEZ MD on Apr 23 2023 6:26PM EST [id number] Normal [facility] XR TIBIA FIBULA 2V AP/LAT LT [...] for the characterization as clinically determined. . Intensive Care Unit Registered Nurse: SUBHASH Transcribe Date/Time: Apr 23 2023 4:49P Dictated by : RAMIRO PAEZ MD This examination was interpreted and the report reviewed and electronically signed by: RAMIRO PAEZ MD on Apr 23 2023 6:29PM EST [id number] Normal [facility] GLUCOSE-POCTon 03-22-2023 Glucose [Mass/Vol] 100 mg/dL High 74 - 99 [facility] Comment on above: Performed By: #### G JONATHAN #### [facility] [address] [place] [address] Glucose Test strip manual (B ld) [Mass/Vol]on 03-22-2023 Glucose [Mass/Vol] 100 mg/dL High 74 - 99 mg/dL [facility] Interpretation and review of laboratory results [facility] Order Reconciliationon 03-22 Order Reconciliation Page 1 [...] continued as multivitamin Multiple Vitamins oral tablet [place]-3 1000 mg oral capsule 1 cap(s) oral twice a day 01-Jun-2022 11:21 [place]-3 1000 mg oral capsule 1 cap(s) oral twice a day 01-Jun-2022 11:21 [place]-3 1000 mg oral capsule is continued as [place]-3 1000 mg oral capsule turmeric 500 mg [...] gram/ D (more content not included)... Normal [facility] RF Unspecified body region L ess than 1 hour Views during surgeryon 03-22-2023 RIS LEGACY CONVERSIONS Conversion, Ge Radiology - 05/21/2023 [facility] Work Phone: Radiology Study observation (narrative) [facility] Work Phone: RF Unspecified body region L ess than 1 hour Views during surgeryOrdered By: Ge Conversion on 03-22-2023 [facility] Patient Profile - Preop v3on 03-19-2023 Patient Profile - Preop v3 Patient Profile - Preop: Initial Info: Patient DemographicsName: MARIE SEXTON Date: 1960 Address: [address] [place] [address] Date/Time [id number] 13:05 Primary Phone [phone] Instructions Givenappropriate clothing, bring responsible adult as the front end loader driver (procedure may be cancelled if no front end loader driver), center location, remove jewerly/piercings, time to [...] Reactionnot applicable Health Mgmt: [facility] Barriers to Managing Healthnone Relationship/Environ: Lives Withalone Living Arrangementshouse Resource/Environmental Concernsnone Anticipated Transition [place] Services Anticipated at Transitionnone Tobacco Use: Tobacco Useno Pre-op Checklist: Arrival [id number] Arrival Time11:24 Procedure TypeRIGHT ANKLE SUBLUXATION REPAIR/ HARDWARE REMOVAL/ CALCANEAL OSTEOTOMY/ SKIN FLAP CLOSURE WITH C-ARM NPOyes Last Food [id number]-Wza-9015 21:00 Last Clear Fluid [id number]-Kih-9097 10:00 ID Band On Patientpatient ID (name), [...] Updated: 22-Mar-2023 11:50 by Christopher Caceres) Normal [facility] CBC AND DIFFERENTIALon 03-17 % AUTOMATED IMMATURE GRAN 0.4 % Normal 0.0 - 0.9 [facility] Comment on above: Result Comment: Coni ture Granulocyte Count (IG) includes promyelocytes, myelocytes and metamyelocytes but does not include bands. Percent differential counts (%) should be interpreted in the context of the absolute cell counts (cells/L). Performed By: #### C BCDF ####[facility] [place] [address] Basophils (Bld) [#/Vol] 0.05 10*3/uL Normal 0.00 - 0.10 [facility] Comment on above: Performed By: #### C BCDF ####[facility] [place] [address] Basophils/100 WBC (Bld) 0.6 % Normal 0.0 - 2.0 [facility] Comment on above: Performed By: #### C BCDF ####[address] [place] [address] Eosinophils (Bld) [#/Vol] 0.23 10*3/uL Normal 0.00 - 0.70 [facility] Comment on above: Performed By: #### C BCDF ####[address] [place] [address] Eosinophils/100 WBC (Bld) 2.9 % Normal 0.0 - 6.0 [facility] Comment on above: Performed By: #### C BCDF ####[address] [address] Erythrocyte distribution width (RBC) [Ratio] 12.3 % Normal 11.5 - 14.5 [facility] Comment on above: Performed By: #### C BCDF ####[address] [address] Hematocrit (Bld) [Volume fraction] 40.1 % Normal 36.0 - 46.0 [facility] Comment on above: Performed By: #### C BCDF ####[address] [address] Hemoglobin (Bld) [Mass/Vol] 13.5 g/dL Normal 12.0 - 16.0 [facility] Comment on above: Performed By: #### C BCDF ####[address] [place] [address] Lymphocytes (Bld) [#/Vol] 3.98 10*3/uL Normal 1.20 - 4.80 [facility] Comment on above: Performed By: #### C BCDF ####[address] [place] [address] Lymphocytes/100 WBC (Bld) 50.5 % Normal 13.0 - 44.0 [facility] Comment on above: Performed By: #### C BCDF ####[address] [address] MCHC (RBC) [Mass/Vol] 33.7 g/dL Normal 32.0 - 36.0 [facility] Comment on above: Performed By: #### C BCDF ####[address] [place] [address] MCV (RBC) [Entitic vol] 92 fL Normal 80 - 100 [facility] Comment on above: Performed By: #### C BCDF ####[address] [place] [address] Monocytes (Bld) [#/Vol] 0.53 10*3/uL Normal 0.10 - 1.00 [facility] Comment on above: Performed By: #### C BCDF ####[address] [place] [address] Monocytes/100 WBC (Bld) 6.7 % Normal 2.0 - 10.0 [facility] Comment on above: Performed By: #### C BCDF ####[address] [place] [address] Neutrophils (Bld) [#/Vol] 3.06 10*3/uL Normal 1.20 - 7.70 [facility] Comment on above: Performed By: #### C BCDF ####[address] [place] [address] Neutrophils/100 WBC (Bld) 38.9 % Normal 40.0 - 80.0 [facility] Comment on above: Performed By: #### C BCDF ####[address] [place] [address] NUCLEATED RBC 0.0 /100 WBC Normal 0.0 - 0.0 [facility] Comment on above: Performed By: #### C BCDF ####[address] [place] [address] Platelets (Bld) [#/Vol] 297 10*3/uL Normal 150 - 450 [facility] Comment on above: Performed By: #### C BCDF ####[address] [place] [address] RBC 4.36 x10E12/L Normal 4.00 - 5.20 [facility] Comment on above: Performed By: #### C BCDF ####[address] [place] [address] WBC (Bld) [#/Vol] 7.9 10*3/uL Normal 4.4 - 11.3 [facility] Comment on above: Performed By: #### C BCDF ####[facility] [place] [address] ALBUMIN, URINE SPOTon 2022 ALBUMIN,URINE <7.0 Normal Not Established [facility] Comment on above: Performed By: #### C OVSC #### [facility] [address] [place] [address] ALBUMIN/CREAT RATIO SEE COMMENT Normal 0.0 - 30.0 [facility] Comment on above: Result Comment: One or more analytes used in this calculation is outside of the analytical measurement range. Calculation cannot be performed. Performed By: #### C OVSC #### [facility] [address] [place] [address] CREATININE,URINE 56.3 mg/dL Normal 20.0 - 320.0 [facility] Comment on above: Performed By: #### C OVSC #### [facility] [address] [place] [address] ALBUMIN, URINE SPOTon 2022 ALBUMIN,URINE Canceled Normal [facility] Comment on above: Order Comment: TEST ALBUMIN, URINE SPOT WAS CANCELLED, 02/02/2023 10:27 not collected. Performed By: #### A LBSP #### [facility] [address] [place] [address] ALBUMIN/CREAT RATIO Canceled Normal [facility] Comment on above: Order Comment: TEST ALBUMIN, URINE SPOT WAS CANCELLED, 02/02/2023 10:27 not collected. Performed By: #### A LBSP #### [facility] [address] [place] [address] CREATININE,URINE Canceled Normal [facility] Comment on above: Order Comment: TEST ALBUMIN, URINE SPOT WAS CANCELLED, 02/02/2023 10:27 not collected. Performed By: #### A LBSP #### [facility] [address] [place] [address] COMPREHENSIVE PANELon 2022 Albumin [Mass/Vol] 4.6 g/dL Normal 3.4 - 5.0 [facility] Comment on above: Performed By: #### C MP #### [address] [place] [address] ALP [Catalytic activity/Vol] 42 U/L Normal 33 - 136 [facility] Comment on above: Performed By: #### C MP #### [address] [place] [address] ALT [Catalytic activity/Vol] 28 U/L Normal 7 - 45 [facility] Comment on above: Result Comment: Shaista ents treated with Sulfasalazine may generate falsely decreased results for ALT. Performed By: #### C MP #### [address] [place] [address] Anion gap [Moles/Vol] 13 mmol/L Normal 10 - 20 [facility] Comment on above: Performed By: #### C MP #### [address] [place] [address] AST [Catalytic activity/Vol] 20 U/L Normal 9 - 39 [facility] Comment on above: Performed By: #### C MP #### [address] [place] [address] Bilirubin [Mass/Vol] 0.3 mg/dL Normal 0.0 - 1.2 [facility] Comment on above: Performed By: #### C MP #### [address] [place] [address] Calcium [Mass/Vol] 10.0 mg/dL Normal 8.6 - 10.3 [facility] Comment on above: Performed By: #### C MP #### [address] [place] [address] Chloride [Moles/Vol] 103 mmol/L Normal 98 - 107 [facility] Comment on above: Performed By: #### C MP #### [address] [place] [address] Creatinine [Mass/Vol] 1.25 mg/dL High 0.50 - 1.05 [facility] Comment on above: Performed By: #### C MP #### [address] [place] [address] GFR/1.73 sq M.predicted among non-blacks MDRD (S/P/Bld) [Vol rate/Area] 49 mL/min/{1.73_m2} Abnormal >90 [facility] Comment on above: Result Comment: CALC ULATIONS OF ESTIMATED GFR ARE PERFORMED USING THE 2020 CKD-EPI STUDY REFIT EQUATION WITHOUT THE RACE VARIABLE FOR THE IDMS-TRACEABLE CREATININE METHODS. https://jasn.asnjournals.org/content/early//ASN.1911262 988 Performed By: #### C MP #### [address] [place] [address] Glucose [Mass/Vol] 76 mg/dL Normal 74 - 99 [facility] Comment on above: Performed By: #### C MP #### [address] [place] [address] HCO3 (Bld) [Moles/Vol] 28 mmol/L Normal 21 - 32 [facility] Comment on above: Performed By: #### C MP #### [address] [place] [address] Potassium [Moles/Vol] 3.9 mmol/L Normal 3.5 - 5.3 [facility] Comment on above: Performed By: #### C MP #### [address] [place] [address] Protein [Mass/Vol] 7.4 g/dL Normal 6.4 - 8.2 [facility] Comment on above: Performed By: #### C MP #### [address] [place] [address] Sodium [Moles/Vol] 140 mmol/L Normal 136 - 145 [facility] Comment on above: Performed By: #### C MP #### [address] [place] [address] Urea nitrogen [Mass/Vol] 24 mg/dL High 6 - 23 [facility] Comment on above: Performed By: #### C MP #### [address] [place] [address] HEMOGLOBIN A1Con 03--2023 Glucose [Mass/Vol] 137 mg/dL Normal [facility] Comment on above: Performed By: #### H BA1E #### [facility] [address] [place] [address] HbA1c (Bld) [Mass fraction] 6.4 % Abnormal [facility] Comment on above: Result Comment: Diag nosis of Diabetes-Adults Non-Diabetic: < or = 5.6% Increased risk for developing diabetes: 5.7-6.4% Diagnostic of diabetes: > or = 6.5% . Monitoring of Diabetes Age (y) Therapeutic Goal (%) Adults: >18 <7.0 Pediatrics: 13-18 <7.5 7-12 <8.0 0- 6 7.5-8.5 [employer] [place] [employer]. Diabetes Care 33(S1), Nov 2009. Performed By: #### H BA1E #### [facility] [address] [place] [address] TSHon 02-02-2023 TSH Qn 1.56 m[IU]/L Normal 0.44 - 3.98 [facility] Comment on above: Result Comment: TSH testing is performed using different testing methodology at [facility] than at other [facility]. Direct result comparisons should only be made within the same method. Performed By: #### T SH2 #### [facility] [address] [place] [address] VITAMIN D, 25-HYDROXYon 01-14 VITAMIN D, 25-HYDROXY 49 ng/mL Normal [facility] Comment on above: Result Comment: . DEFICIENCY: < 20 NG/ML INSUFFICIENCY: 20-29 NG/ML SUFFICIENCY: 30-100 NG/ML THIS ASSAY ACCURATELY QUANTIFIES THE SUM OF VITAMIN D3, 25-HYDROXY AND VIT D2,25-HYDROXY. Performed By: #### C OVSC #### [facility] [address] [place] [address] GLUCOSE-POCTon 01-08-2023 Glucose [Mass/Vol] 92 mg/dL Normal 74 - 99 [facility] Comment on above: Performed By: #### G JONATHAN ####[facility] [place] [address] Operative Reports - Jing 01-08-2023 Operative Reports - [place] SURGEON: Fang Rodriguez DPM OCCUPATIONAL THERAPIST ASSISTANT: Buzz Dexter, PGY-3. PREOPERATIVE DIAGNOSES: 1. Hardware [...] Vitoss and BIO4 bone graft substitute augment Drewsey dorsal 3.5 locking plate. 7-0 and 5-0 [...] Charcot neuroarthropat (more content not included)... Normal [facility] Order Reconciliationon 01-08 Order Reconciliation [...] continued as multivitamin Multiple Vitamins oral tablet [place]-3 1000 mg oral capsule 1 cap(s) oral twice a day 01-Jun-2022 11:21 [employer]-3 1000 mg oral capsule 1 cap(s) oral twice a day 01-Jun-2022 11:21 [employer] [place]-3 1000 mg oral capsule is continued as [place] [place]-3 1000 mg oral capsule turmeric 500 mg [...] tablet is (more content not included)... Normal [facility] Surgical Pathology Depar tmenton 01-08-2023 [facility] Surgical Pathology Department Name MARIE SEXTON. Pathologist: [...] reviewed this case. Diagnostic interpretation performed at [place] [address] Clinical History: Contracture of joint of both [...] largest piece is inscribed with MEDSHAPE REF [id number] LOT [id number] 07MM X 80M. Additionally received is a blue-canales metal U-shaped piece of hardware with the inscription of [id number]. Soft tissue is not received the specimen. A photograph is been taken. The specimen is for gross examination only. MJR mjr/01/09/2023 [facility] Department of Pathology [address] [place] [address] Normal [facility] Comment on above: Performed By: #### C OVSC #### [address] [place] [address] Patient Profile - Preop v3on 01-07-2023 Patient Profile - Preop v3 Patient Profile - Preop: Initial Info: Patient DemographicsName: DARSHAN April Date: 1960 Address: [address] [place], [place] [address] [address] Date/Time [id number]-[id number]-5173 12:31 Primary Phone [phone] Call Attemptedattempt 1 Instructions Giventime to arrive [...] Reactionnot applicable Health Mgmt: [facility] Barriers to Managing Healthnone Relationship/Environ: Lives Withalone Living Arrangementshouse Resource/Environmental Concernsnone [facility] Tobacco Use: Tobacco Useno Pre-op Checklist: Arrival [id number] Arrival Time08:58 Procedure TypeRIGHT GASTROCNEMIUS RECESSION/ SUBTALAR JOINT & MIDFOOT FUSION/ TIBIA PARTIAL EXCISION WITH C-ARM RIGHT FOOT DJO HARDWARE REMOVAL NPOyes Last Food Dstppt78-Hjw-7308 20:30 Last Clear Fluid Tbmjkn51-Jig-8906 07:45 ID Band On Patientpatient ID (name), allergy, falls risk Consent Signedyes Anesthesia Assessment Completedyes EKG Performedsee results tab Chest X-Ray Performednot ordered Preop Antibioticssent to OR Beta-vita CommentN/A COVID 19 Results in Last 7 daysN/A Glucose Kmyjeq17 Type and Screen Resultedn/a HCG Urine TestN/A [...] 08-Jan-2023 09:18 by Christopher Caceres (RN) Normal [facility] BASIC METABOLIC PANELon 02-2 Anion gap [Moles/Vol] 11 mmol/L Normal 10 - 20 [facility] Comment on above: Performed By: #### B MP #### [facility] [address] [place] [address] Calcium [Mass/Vol] 9.9 mg/dL Normal 8.6 - 10.3 [facility] Comment on above: Performed By: #### B MP #### [address] [address] Chloride [Moles/Vol] 103 mmol/L Normal 98 - 107 [facility] Comment on above: Performed By: #### B MP #### [address] [address] Creatinine [Mass/Vol] 1.01 mg/dL Normal 0.50 - 1.05 [facility] Comment on above: Performed By: #### B MP #### [address] [address] GFR/1.73 sq M.predicted among non-blacks MDRD (S/P/Bld) [Vol rate/Area] 63 mL/min/{1.73_m2} Normal >90 [facility] Comment on above: Result Comment: CALC ULATIONS OF ESTIMATED GFR ARE PERFORMED USING THE 2020 CKD-EPI STUDY REFIT EQUATION WITHOUT THE RACE VARIABLE FOR THE IDMS-TRACEABLE CREATININE METHODS. https://jasn.asnjournals.org/content/early/ASN.7860988 988 Performed By: #### B MP #### [facility] [address] [place] [address] Glucose [Mass/Vol] 120 mg/dL High 74 - 99 [facility] Comment on above: Performed By: #### B MP #### [address] [address] HCO3 (Bld) [Moles/Vol] 30 mmol/L Normal 21 - 32 [facility] Comment on above: Performed By: #### B MP #### [facility] [address] [place] [address] Potassium [Moles/Vol] 4.7 mmol/L Normal 3.5 - 5.3 [facility] Comment on above: Performed By: #### B MP #### [address] [address] Sodium [Moles/Vol] 139 mmol/L Normal 136 - 145 [facility] Comment on above: Performed By: #### B MP #### [address] [address] Urea nitrogen [Mass/Vol] 23 mg/dL Normal 6 - 23 [facility] Comment on above: Performed By: #### B MP #### [address] [address] CBC AND DIFFERENTIALon 01-05 % AUTOMATED IMMATURE GRAN 0.2 % Normal 0.0 - 0.9 [facility] Comment on above: Result Comment: Coni ture Granulocyte Count (IG) includes promyelocytes, myelocytes and metamyelocytes but does not include bands. Percent differential counts (%) should be interpreted in the context of the absolute cell counts (cells/L). Performed By: #### C BCDF ####[address] [address] Basophils (Bld) [#/Vol] 0.05 10*3/uL Normal 0.00 - 0.10 [facility] Comment on above: Performed By: #### C BCDF ####[facility] [place] [address] Basophils/100 WBC (Bld) 0.6 % Normal 0.0 - 2.0 [facility] Comment on above: Performed By: #### C BCDF ####[address] [address] Eosinophils (Bld) [#/Vol] 0.24 10*3/uL Normal 0.00 - 0.70 [facility] Comment on above: Performed By: #### C BCDF ####[address] [place] [address] Eosinophils/100 WBC (Bld) 2.8 % Normal 0.0 - 6.0 [facility] Comment on above: Performed By: #### C BCDF ####[address] [place] [address] Erythrocyte distribution width (RBC) [Ratio] 12.8 % Normal 11.5 - 14.5 [facility] Comment on above: Performed By: #### C BCDF ####[address] [place] [address] Hematocrit (Bld) [Volume fraction] 41.1 % Normal 36.0 - 46.0 [facility] Comment on above: Performed By: #### C BCDF ####[address] [place] [address] Hemoglobin (Bld) [Mass/Vol] 13.8 g/dL Normal 12.0 - 16.0 [facility] Comment on above: Performed By: #### C BCDF ####[address] [place] [address] Lymphocytes (Bld) [#/Vol] 3.56 10*3/uL Normal 1.20 - 4.80 [facility] Comment on above: Performed By: #### C BCDF ####[address] [place] [address] Lymphocytes/100 WBC (Bld) 41.4 % Normal 13.0 - 44.0 [facility] Comment on above: Performed By: #### C BCDF ####[address] [address] MCHC (RBC) [Mass/Vol] 33.6 g/dL Normal 32.0 - 36.0 [facility] Comment on above: Performed By: #### C BCDF ####[address] [place] [address] MCV (RBC) [Entitic vol] 90 fL Normal 80 - 100 [facility] Comment on above: Performed By: #### C BCDF ####[address] [place] [address] Monocytes (Bld) [#/Vol] 0.61 10*3/uL Normal 0.10 - 1.00 [facility] Comment on above: Performed By: #### C BCDF ####[address] [address] Monocytes/100 WBC (Bld) 7.1 % Normal 2.0 - 10.0 [facility] Comment on above: Performed By: #### C BCDF ####[address] [address] Neutrophils (Bld) [#/Vol] 4.11 10*3/uL Normal 1.20 - 7.70 [facility] Comment on above: Performed By: #### C BCDF ####[address] [address] Neutrophils/100 WBC (Bld) 47.9 % Normal 40.0 - 80.0 [facility] Comment on above: Performed By: #### C BCDF ####[address] [address] NUCLEATED RBC 0.0 /100 WBC Normal 0.0 - 0.0 [facility] Comment on above: Performed By: #### C BCDF ####[address] [address] Platelets (Bld) [#/Vol] 287 10*3/uL Normal 150 - 450 [facility] Comment on above: Performed By: #### C BCDF ####[address] [address] RBC 4.58 x10E12/L Normal 4.00 - 5.20 [facility] Comment on above: Performed By: #### C BCDF ####[address] [address] WBC (Bld) [#/Vol] 8.6 10*3/uL Normal 4.4 - 11.3 [facility] Comment on above: Performed By: #### C BCDF ####[address] [address] Electrocardiogram 12 Leadon 01-05-2023 Electrocardiogram 12 Lead Ventricular Rate 69 Atrial Rate 69 P-R Interval 144 QRS Duration 70 Q-T Interval 396 QTC Calculation(Bazett) 424 P Melfa 60 R Melfa 41 T Melfa 64 QRS Count 12 Q Onset 220 P Onset 148 P Offset 201 T Offset 418 QTC Fredericia 415 Diagnosis Class Normal Diagnosis Normal sinus rhythm Normal ECG When compared with ECG of 01-JUN-2022 11:38, No significant change was found Confirmed by Javed Bravo ([id number]) on 01/08/2023 3:39:12 PM Normal [facility] GLUCOSE-POCTon 08-21-2022 Glucose [Mass/Vol] 82 mg/dL Normal 74 - 99 [facility] Comment on above: Performed By: #### G JONATHAN #### [facility] [address] [place] [address] Operative Reports - [facility] 08-21-2022 Operative Reports - [place] SURGEON: Fang Rodriguez DPM OCCUPATIONAL THERAPIST ASSISTANT: Darin Dawn, PGY-2. SECOND PHOTOGRAPHIC LABORATORY TECHNICIAN: Sirena Oconnor, PGY-3. PREOPERATIVE DIAGNOSES: 1. Anterior [...] Adaptic, gauze, and a slightly compressive short-leg crxjr-lcx-jguw cast was then applied. The foot was held in dorsiflexed position at this time. The patient was then transferred to the PACU with vital signs stable and vascular status intact. COMPLICATIONS: Significant disease with tendon requiring cadaveric tendon to be used. SPECIMEN: None. Fang Rodriguez DPM EST EST DICTATION NUMBER: [id number] INTERNAL JOB NUMBER: [id number] Electronic Signatures: Fang Rodriguez) (Signed on 28-Aug-2022 08:37) Authored Unsigned, Draft (SYS GENERATED) (Entered on 22-Aug-2022 21:23) Entered Last Updated: 28-Aug-2022 08:37 by Fang Rodriguez) [facility] Order Reconciliationon 08-21 Order Reconciliation [...] continued as multivitamin Multiple Vitamins oral tablet Gu[place] Mills-3 1000 mg oral capsule 1 cap(s) oral twice a day 01-Jun-2022 11:21 Gu[place] Mills-3 1000 mg oral capsule 1 cap(s) oral twice a day 01-Jun-2022 11:21 Guys Mills-3 1000 mg oral capsule is continued as Guys Mills-3 1000 mg oral capsule turmeric 500 mg [...] mg oral (more content not included)... Normal [facility] Patient Profile - Preop v3on 08-20-2022 Patient Profile - Preop v3 Patient Profile - Preop: Initial Info: Patient DemographicsName: DARSHAN April Date: 1960 Address: [address] [place] [address] [place] [address] Date/Time [id number] 11:43 Primary Phone [phone] Call Attemptedattempt 1 Instructions Giventime to arrive, insurance information, center location, bring responsible adult as the front end loader driver (procedure may be cancelled if no front end loader driver), remove jewerly/piercings, appropriate clothing Prep Instructions [...] Health: Weight in kg88 kilogram(s) Weight in pca414 pound(s) Weight Methodstated Height in feet6 feet Height in inches0.95 inch(es) Height in cm185.2 centimeter(s) Height Methodstated BMI (kg/m2)25.656 square meter Patient or Family Member Reaction to Anesthesiano previous reaction Blood Avoidance/Restrictionsn one Previous Transfusion Reactionnot applicable Health Mgmt: [facility] Barriers to Managing Healthnone Relationship/Environ: Lives Withalone Living Arrangementshouse Resource/Environmental Concernsnone [place]ticipated [place] Anticipated at Transitionnone Tobacco Use: Tobacco [...] 21-Aug-2022 10:45 by Sabrina Hopkins (DEMI) Normal [facility] CORONAVIRUS 2019, SCREEN ASY MPTOMATICon 08-13-2022 SARS-CoV-2 (COVID-19) RNA KING+probe Ql (Unsp spec) Not detected Normal Not Detected [facility] Comment on above: Result Comment: [...] patient management decisions. Fact sheet for providers: https://www.fda.gov/media/227594/download Fact sheet for patients: https://www.fda.gov/media/648490/download This test has received FDA Emergency Use Authorization (EUA) and has been verified by [facility] ([facility]). This test is only authorized for the duration of time that circumstances exist to justify the authorization of the emergency use of in vitro diagnostic tests for the detection of SARS-CoV-2 virus and/or diagnosis of COVID-19 infection under section 564(b)(1) of the Act, 21 U.S.C. 360bbb-3(b)(1), unless the authorization is terminated or revoked sooner. [facility] is certified under CLIA-88 as qualified to perform high complexity testing. Testing is performed in the [facility] laboratories located at [id number] [place] [address]. Performed By: #### C OVSC #### [facility] [id number] [place] [address]. [place] [address] Covid 19 Resultson 2 SARS-CoV-2 (COVID-19) RNA [...] or Naproxen (Aleve) can also be used. Ijpd-szn-lxssuow cough and cold medicines can be used according to the instructions on the package. Some ckuw-hdu-bqmyvjb medicines also contain acetaminophen. Make sure you [...] water are not available, use alcohol-based hand inshore undersea warfare officer. Avoid touching your eyes, nose, and mouth [...] 24 chevy (more content not included)... Normal [facility] GLUCOSE-POCTon 08-13-2022 Glucose [Mass/Vol] 160 mg/dL High 74 - 99 [facility] Comment on above: Performed By: #### G JONATHAN #### [facility] [address] [place] [address] Operative Reports - [facility] 08-13-2022 Operative Reports - [place] SURGEON: Fang Rodriguez DPM PHOTOGRAPHIC LABORATORY TECHNICIAN: Sirena Oconnor, PGY-3 PREOPERATIVE DIAGNOSES: 1. Broken [...] identified and (more content not included)... Normal [facility] Order Reconciliationon 08-13 Order Reconciliation [...] continued as multivitamin Multiple Vitamins oral tablet Guys Mills-3 1000 mg oral capsule 1 cap(s) oral twice a day 01-Jun-2022 11:21 Guys Mills-3 1000 mg oral capsule 1 cap(s) oral twice a day 01-Jun-2022 11:21 Guys Mills-3 1000 mg oral capsule is continued as Guys Mills-3 1000 mg oral capsule turmeric 500 mg [...] tab(s) oral (more content not included)... Normal [facility] CORONAVIRUS 2019, SCREEN ASY MPTOMATICon 08-12-2022 Lab Specimen Source Nasal, Nasopharyngeal Normal [facility] Comment on above: Performed By: #### C OVSC #### [facility] [address] [place] [id number] Patient Profile - Preop v3on 08-12-2022 Patient Profile - Preop v3 Patient Profile - Preop: Initial Info: Patient DemographicsName: MARIE SEXTON Date: 1960 Address: [address] [place] [address] [place] [address] Date/Time [id number] 11:51 Primary Phone [phone] Call Attemptedattempt 1 Instructions Giventime to arrive [...] Withspouse Living Arrangementshouse Resource/Environmental Concernsnone [place]ticipated [place] Anticipated at Transitionnone Tobacco Use: Tobacco Useno Pre-op Checklist: Arrival [id number] Arrival Time06:30 Procedure TypeRIGHT MIDFOOT FUSION/ REPAIR SUBLUXED TARSAL JOINT WITH C-ARM RIGHT FOOT HARDWARE REMOVAL NPOyes Last Food Vqvvml93-Ckl-7852 22:30 Last Clear Fluid Ccdety70-Dqh-8247 22:30 ID Band On Patientpatient ID (name), [...] Updated: 13-Aug-2022 06:56 by Christopher Caceres) Normal [facility] CBC AND DIFFERENTIALon 08-10 % AUTOMATED IMMATURE GRAN 0.4 % Normal 0.0 - 0.9 [facility] Comment on above: Result Comment: Coni ture Granulocyte Count (IG) includes promyelocytes, myelocytes and metamyelocytes but does not include bands. Percent differential counts (%) should be interpreted in the context of the absolute cell counts (cells/L). Performed By: #### C BCDF #### [facility] [address] [address] Basophils (Bld) [#/Vol] 0.05 10*3/uL Normal 0.00 - 0.10 [facility] Comment on above: Performed By: #### C BCDF #### [address] [address] Basophils/100 WBC (Bld) 0.7 % Normal 0.0 - 2.0 [facility] Comment on above: Performed By: #### C BCDF #### [address] [address] Eosinophils (Bld) [#/Vol] 0.20 10*3/uL Normal 0.00 - 0.70 [facility] Comment on above: Performed By: #### C BCDF #### [address] [address] Eosinophils/100 WBC (Bld) 2.6 % Normal 0.0 - 6.0 [facility] Comment on above: Performed By: #### C BCDF #### [address] [address] Erythrocyte distribution width (RBC) [Ratio] 12.9 % Normal 11.5 - 14.5 [facility] Comment on above: Performed By: #### C BCDF #### [address] [address] Hematocrit (Bld) [Volume fraction] 38.5 % Normal 36.0 - 46.0 [facility] Comment on above: Performed By: #### C BCDF #### [address] [address] Hemoglobin (Bld) [Mass/Vol] 12.6 g/dL Normal 12.0 - 16.0 [facility] Comment on above: Performed By: #### C BCDF #### [address] [address] Lymphocytes (Bld) [#/Vol] 2.69 10*3/uL Normal 1.20 - 4.80 [facility] Comment on above: Performed By: #### C BCDF #### [address] [address] Lymphocytes/100 WBC (Bld) 35.6 % Normal 13.0 - 44.0 [facility] Comment on above: Performed By: #### C BCDF #### [address] [address] MCHC (RBC) [Mass/Vol] 32.7 g/dL Normal 32.0 - 36.0 [facility] Comment on above: Performed By: #### C BCDF #### [address] [address] MCV (RBC) [Entitic vol] 90 fL Normal 80 - 100 [facility] Comment on above: Performed By: #### C BCDF #### [address] [address] Monocytes (Bld) [#/Vol] 0.56 10*3/uL Normal 0.10 - 1.00 [facility] Comment on above: Performed By: #### C BCDF #### [address] [address] Monocytes/100 WBC (Bld) 7.4 % Normal 2.0 - 10.0 [facility] Comment on above: Performed By: #### C BCDF #### [address] [address] Neutrophils (Bld) [#/Vol] 4.02 10*3/uL Normal 1.20 - 7.70 [facility] Comment on above: Performed By: #### C BCDF #### [address] [address] Neutrophils/100 WBC (Bld) 53.3 % Normal 40.0 - 80.0 [facility] Comment on above: Performed By: #### C BCDF #### [address] [address] NUCLEATED RBC 0.0 /100 WBC Normal 0.0 - 0.0 [facility] Comment on above: Performed By: #### C BCDF #### [address] [address] Platelets (Bld) [#/Vol] 360 10*3/uL Normal 150 - 450 [facility] Comment on above: Performed By: #### C BCDF #### [facility] [address] [place] [address] RBC 4.27 x10E12/L Normal 4.00 - 5.20 [facility] Comment on above: Performed By: #### C BCDF #### [facility] [address] [place] [address] WBC (Bld) [#/Vol] 7.6 10*3/uL Normal 4.4 - 11.3 [facility] Comment on above: Performed By: #### C BCDF #### [facility] [address] [place] [address] COMPREHENSIVE PANELon 2021 Albumin [Mass/Vol] 4.2 g/dL Normal 3.4 - 5.0 [facility] Comment on above: Performed By: #### C MP #### [facility] [address] [place] [address] ALP [Catalytic activity/Vol] 77 U/L Normal 33 - 136 [facility] Comment on above: Performed By: #### C MP #### [facility] [address] [place] [address] ALT [Catalytic activity/Vol] 14 U/L Normal 7 - 45 [facility] Comment on above: Result Comment: Shaista ents treated with Sulfasalazine may generate falsely decreased results for ALT. Performed By: #### C MP #### [facility] [address] [place] [address] Anion gap [Moles/Vol] 13 mmol/L Normal 10 - 20 [facility] Comment on above: Performed By: #### C MP #### [facility] [address] [place] [address] AST [Catalytic activity/Vol] 18 U/L Normal 9 - 39 [facility] Comment on above: Performed By: #### C MP #### [facility] [address] [place] [address] Bilirubin [Mass/Vol] 0.3 mg/dL Normal 0.0 - 1.2 [facility] Comment on above: Performed By: #### C MP #### [facility] [address] [place] [address] Calcium [Mass/Vol] 10.0 mg/dL Normal 8.6 - 10.6 [facility] Comment on above: Performed By: #### C MP #### [facility] [address] [place] [address] Chloride [Moles/Vol] 105 mmol/L Normal 98 - 107 [facility] Comment on above: Performed By: #### C MP #### [facility] [address] [place] [address] Creatinine [Mass/Vol] 1.14 mg/dL High 0.50 - 1.05 [facility] Comment on above: Performed By: #### C MP #### [facility] [address] [place] [address] GFR/1.73 sq M.predicted among non-blacks MDRD (S/P/Bld) [Vol rate/Area] 55 mL/min/{1.73_m2} Abnormal >90 [facility] Comment on above: Result Comment: CALC ULATIONS OF ESTIMATED GFR ARE PERFORMED USING THE 2020 CKD-EPI STUDY REFIT EQUATION WITHOUT THE RACE VARIABLE FOR THE IDMS-TRACEABLE CREATININE METHODS. https://jasn.asnjournals.org/content//ASN.1443304 988 Performed By: #### C MP #### [facility] [address] [place] [address] Glucose [Mass/Vol] 87 mg/dL Normal 74 - 99 [facility] Comment on above: Performed By: #### C MP #### [facility] [address] [place] [address] HCO3 (Bld) [Moles/Vol] 28 mmol/L Normal 21 - 32 [facility] Comment on above: Performed By: #### C MP #### [facility] [address] [place] [address] Potassium [Moles/Vol] 4.0 mmol/L Normal 3.5 - 5.3 [facility] Comment on above: Performed By: #### C MP #### [facility] [address] [place] [address] Protein [Mass/Vol] 7.5 g/dL Normal 6.4 - 8.2 [facility] Comment on above: Performed By: #### C MP #### [facility] [address] [place] [address] Sodium [Moles/Vol] 142 mmol/L Normal 136 - 145 [facility] Comment on above: Performed By: #### C MP #### [facility] [address] [place] [address] Urea nitrogen [Mass/Vol] 21 mg/dL Normal 6 - 23 [facility] Comment on above: Performed By: #### C MP #### [facility] [address] [place] [address] HEMOGLOBIN A1Con 07-31-2022 Glucose [Mass/Vol] 105 mg/dL Normal [facility] Comment on above: Performed By: #### C OVSC #### [facility] [address] [place] [address] HbA1c (Bld) [Mass fraction] 5.3 % Normal [facility] Comment on above: Result Comment: Diag nosis of Diabetes-Adults Non-Diabetic: < or = 5.6% Increased risk for developing diabetes: 5.7-6.4% Diagnostic of diabetes: > or = 6.5% . Monitoring of Diabetes Age (y) Therapeutic Goal (%) Adults: >18 <7.0 Pediatrics: 13-18 <7.5 7-12 <8.0 0- 6 7.5-8.5 [place] [employer]. Diabetes Care 33(S1), Nov 2009. Performed By: #### C OVSC #### [place] [address] [place] [address] LDL, DIRECTon 07-31-2022 Cholesterol in LDL [Mass/Vol] 95 mg/dL Normal 0 - 129 [facility] Comment on above: Result Comment: Elev ated levels of LDL cholesterol are recognized as a fisher factor in the development of atherosclerosis and CHD. The direct LDL cholesterol test can be used to assess cardiovascular risk and monitor therapy as a follow up to a lipid profile when triglycerides are significantly elevated. Performed By: #### C OVSC #### [facility] [address] [place] [address] LIPID PANEL (CORONARY RISK 2 )on 07-31-2022 Cholesterol [Mass/Vol] 152 mg/dL Normal 0 - 199 [facility] Comment on above: Result Comment: [...] Performed By: #### C OVSC #### [facility] [address] [place] [address] Cholesterol in HDL [Mass/Vol] 36.6 mg/dL Abnormal [facility] Comment on above: Result Comment: . AGE VERY LOW LOW NORMAL HIGH 0-19 Y < 35 < 40 40-45 ---- 20-24 Y ---- < 40 >45 ---- >24 Y ---- < 40 40-60 >60 . Performed By: #### C OVSC #### [facility] [address] [place] [address] Cholesterol in LDL [Mass/Vol] 79 mg/dL Normal 0 - 99 [facility] Comment on above: Result Comment: . NEAR BORD AGE DESIRABLE OPTIMAL HIGH HIGH VERY HIGH 0-19 Y 0 - 109 --- 110-129 >/= 130 ---- 20-24 Y 0 - 119 --- 120-159 >/= 160 ---- >24 Y 0 - 99 100-129 130-159 160-189 >/=190 . Performed By: #### C OVSC #### [facility] [address] [place] [address] Cholesterol in VLDL [Mass/Vol] 37 mg/dL Normal 0 - 40 [facility] Comment on above: Performed By: #### C OVSC #### [facility] [address] [place] [address] Cholesterol.total/Ch olesterol in HDL [Mass ratio] 4.2 {ratio} Normal [facility] Comment on above: Result Comment: REF VALUES DESIRABLE < 3.4 HIGH RISK > 5.0 Performed By: #### C OVSC #### [facility] [address] [place] [address] Triglyceride [Mass/Vol] 183 mg/dL High 0 - 149 [facility] Comment on above: Result Comment: [...] dosing. Performed By: #### C OVSC #### [facility] [address] [place] [address] TSHon 07-31-2022 TSH Qn 1.32 m[IU]/L Normal 0.44 - 3.98 [facility] Comment on above: Result Comment: TSH testing is performed using different testing methodology at [facility] than at other [facility]. Direct result comparisons should only be made within the same method. Performed By: #### A LBSP #### [facility] [address] [place] [address] GLUCOSE-POCTon 06-05-2022 Glucose [Mass/Vol] 128 mg/dL High 74 - 99 [facility] Comment on above: Performed By: #### G JONATHAN #### [place] [address] [place] [address] [place] 06[place] Operative Reports - [place] SURGEON: Fang Rodriguez, DPM 1ST PHOTOGRAPHIC LABORATORY TECHNICIAN: Josias Oliveros, PGY-3. 2ND PHOTOGRAPHIC LABORATORY TECHNICIAN: Ly Sheikh, PGY-2. PREOPERATIVE DIAGNOSES: 1. Right [...] LOSS: Less than 100 cc. MATERIALS USED: Drewsey Iconix and ReelX anchor, Drewsey TissueMend, DJO SteriShield, DJO subtalar nail, MedShape [...] a tissue protector was inserted and a INSOMENIA saber blade was utilized to transect the [...] joint was then distracted with a lamina honest john rocket crew member and the joint was prepared utilizing a combination of rongeur, osteotome, curette, subchondral drilling and fish scaling was performed until there was healthy bleeding bone. The incision was flushed. It was packed with bone graft substitute mixed with PRP and the joint was then closed in layers with Vicryl and Prolene suture. The subtalar joint nail was then inserted per supply chain director's recommended technique an 80 mm nail along [...] stressed under (more content not included)... Normal [facility] Order Reconciliationon 06-05 Order Reconciliation [...] continued as multivitamin Multiple Vitamins oral tablet Guys Mills-3 1000 mg oral capsule 1 cap(s) oral twice a day 01-Jun-2022 11:21 Gu[employer] Mills-3 1000 mg oral capsule 1 cap(s) oral twice a day 01-Jun-2022 11:21 Guys Mills-3 1000 mg oral capsule is continued as Guys Mills-3 1000 mg oral capsule turmeric 500 mg [...] mg oral (more content not included)... Normal [facility] Patient Profile - Preop v3on 06-04-2022 Patient Profile - Preop v3 Patient Profile - Preop: Initial Info: Patient DemographicsName: MARIE SEXTON Date: 1960 Address: [address] [place] [address] Date/Time [id number]-6112 12:21 Primary Phone [phone] Instructions Givenappropriate clothing, bring responsible adult as the front end loader driver (procedure may be cancelled if no front end loader driver), center location, remove jewerly/piercings, time to arrive, arrival time of 0800 for 0930 surgery Prep Instructions Reviewedyes Prep Typeper office Instructed to Have No Fluids Aftermidnight How to be Addresseddtr Spoken Language PreferredEnglish Source of Informationpatient Stated Reason for Admissionright foot Primary Contact Name and Numberfamily Limitations on Visitors/Phone Callsnone Medications Brought to Hospitalno General Health: Weight in kg89.3 kilogram(s) Weight in egc917.8 pound(s) Weight Methodactual (measured) Scale Typestanding Height [...] child(mehul) Living Arrangementshouse Resource/Environmental Concernsnone [place]ticipated [place] Anticipated at Transitionnone Tobacco Use: Tobacco Useyes Last Tobacco [id number]-6423 Number of Packs per Day1 Pre-op Checklist: Procedure Typeright foot NPOyes Last Food Jhcord64-Daa-8250 19:00 Last Clear Fluid [id number]-Kmh-2707 07:00 ID Band On Patientpatient ID (name), [...] 05-Jun-2022 08:36 by Torrie Landaverde (RN) Normal [facility] BASIC METABOLIC PANELon 07- Anion gap [Moles/Vol] 12 mmol/L Normal 10 - 20 [facility] Comment on above: Performed By: #### B MP #### [address] [address] Calcium [Mass/Vol] 9.8 mg/dL Normal 8.6 - 10.3 [facility] Comment on above: Performed By: #### B MP #### [address] [address] Chloride [Moles/Vol] 103 mmol/L Normal 98 - 107 [facility] Comment on above: Performed By: #### B MP #### [address] [address] Creatinine [Mass/Vol] 0.94 mg/dL Normal 0.50 - 1.05 [facility] Comment on above: Performed By: #### B MP #### [address] [address] GFR/1.73 sq M.predicted among non-blacks MDRD (S/P/Bld) [Vol rate/Area] 69 mL/min/{1.73_m2} Normal >90 [facility] Comment on above: Result Comment: CALC ULATIONS OF ESTIMATED GFR ARE PERFORMED USING THE 2020 CKD-EPI STUDY REFIT EQUATION WITHOUT THE RACE VARIABLE FOR THE IDMS-TRACEABLE CREATININE METHODS. https://jasn.asnjournals.org/content//ASN.5922666 988 Performed By: #### B MP #### [id number] [place] [address] Glucose [Mass/Vol] 129 mg/dL High 74 - 99 [facility] Comment on above: Performed By: #### B MP #### [facility] [address] [place] [address] HCO3 (Bld) [Moles/Vol] 28 mmol/L Normal 21 - 32 [facility] Comment on above: Performed By: #### B MP #### [address] [address] Potassium [Moles/Vol] 4.2 mmol/L Normal 3.5 - 5.3 [facility] Comment on above: Performed By: #### B MP #### [address] [address] Sodium [Moles/Vol] 139 mmol/L Normal 136 - 145 [facility] Comment on above: Performed By: #### B MP #### [address] [address] Urea nitrogen [Mass/Vol] 22 mg/dL Normal 6 - 23 [facility] Comment on above: Performed By: #### B MP #### [address] [address] CBC AND DIFFERENTIALon 06-01 % AUTOMATED IMMATURE GRAN 0.4 % Normal 0.0 - 0.9 [facility] Comment on above: Result Comment: Coni ture Granulocyte Count (IG) includes promyelocytes, myelocytes and metamyelocytes but does not include bands. Percent differential counts (%) should be interpreted in the context of the absolute cell counts (cells/L). Performed By: #### C BCDF #### [address] [address] Basophils (Bld) [#/Vol] 0.05 10*3/uL Normal 0.00 - 0.10 [facility] Comment on above: Performed By: #### C BCDF #### [address] [place] [address] Basophils/100 WBC (Bld) 0.7 % Normal 0.0 - 2.0 [facility] Comment on above: Performed By: #### C BCDF #### [facility] [address] [place] [address] Eosinophils (Bld) [#/Vol] 0.21 10*3/uL Normal 0.00 - 0.70 [facility] Comment on above: Performed By: #### C BCDF #### [facility] [address] [place] [address] Eosinophils/100 WBC (Bld) 2.9 % Normal 0.0 - 6.0 [facility] Comment on above: Performed By: #### C BCDF #### [address] [place] [address] Erythrocyte distribution width (RBC) [Ratio] 12.7 % Normal 11.5 - 14.5 [facility] Comment on above: Performed By: #### C BCDF #### [address] [place] [address] Hematocrit (Bld) [Volume fraction] 39.5 % Normal 36.0 - 46.0 [facility] Comment on above: Performed By: #### C BCDF #### [address] [place] [address] Hemoglobin (Bld) [Mass/Vol] 13.4 g/dL Normal 12.0 - 16.0 [facility] Comment on above: Performed By: #### C BCDF #### [address] [place] [address] Lymphocytes (Bld) [#/Vol] 3.00 10*3/uL Normal 1.20 - 4.80 [facility] Comment on above: Performed By: #### C BCDF #### [facility] [address] [place] [address] Lymphocytes/100 WBC (Bld) 41.3 % Normal 13.0 - 44.0 [facility] Comment on above: Performed By: #### C BCDF #### [facility] [address] [place] [address] MCHC (RBC) [Mass/Vol] 33.9 g/dL Normal 32.0 - 36.0 [facility] Comment on above: Performed By: #### C BCDF #### [place] [address] [address] MCV (RBC) [Entitic vol] 88 fL Normal 80 - 100 [facility] Comment on above: Performed By: #### C BCDF #### [address] [address] Monocytes (Bld) [#/Vol] 0.52 10*3/uL Normal 0.10 - 1.00 [facility] Comment on above: Performed By: #### C BCDF #### [address] [address] Monocytes/100 WBC (Bld) 7.2 % Normal 2.0 - 10.0 [facility] Comment on above: Performed By: #### C BCDF #### [address] [address] Neutrophils (Bld) [#/Vol] 3.46 10*3/uL Normal 1.20 - 7.70 [facility] Comment on above: Performed By: #### C BCDF #### [address] [address] Neutrophils/100 WBC (Bld) 47.5 % Normal 40.0 - 80.0 [facility] Comment on above: Performed By: #### C BCDF #### [address] [address] NUCLEATED RBC 0.0 /100 WBC Normal 0.0 - 0.0 [facility] Comment on above: Performed By: #### C BCDF #### [address] [address] Platelets (Bld) [#/Vol] 266 10*3/uL Normal 150 - 450 [facility] Comment on above: Performed By: #### C BCDF #### [address] [address] RBC 4.49 x10E12/L Normal 4.00 - 5.20 [facility] Comment on above: Performed By: #### C BCDF #### [address] [address] WBC (Bld) [#/Vol] 7.3 10*3/uL Normal 4.4 - 11.3 [facility] Comment on above: Performed By: #### C BCDF #### [facility] [address] [place] [address] MAMM DIGITAL SCRN BILATERALo n 02-10-2021 MAMM [...] ARMIJO MD Signed Out: 02/10/21 18:21:51 Normal [facility] Hematologyon 03-20-2019 Hematocrit Volume Fraction (Bld) 40.5 % See Below [facility] Work Phone: Comment on above: Reference Range: 36. 0 - 46.0 Hemoglobin mass conc (Bld) 13.3 g/dL See Below [facility] [place] Work Phone: Comment on above: Reference Range: 12. 0 - 16.0 MCV Entitic volume (RBC) 94 fL 80 - 100 [facility] dview Work Phone: Platelets #/vol (Bld) 252 {x10E9/L} 150 - 450 [facility] [place] Work Phone: RBC #/vol (Bld) 4.33 {x10E12/L} See Below Gabby Laura [facility] dview Work Phone: Comment on above: Reference Range: 4.0 0 - 5.20 WBC #/vol (Bld) 0.0 {/100_WBC} 0.0-0.0 [facility] [place] Work Phone: WBC #/vol (Bld) 6.6 {x10E9/L} 4.4 - 11.3 [facility] [place] Work Phone: IO Hgb A1Con 03-20-2019 HbA1c (Bld) [Mass fraction] 7.1 % 4.4-6.4% [facility] a 1057 Work Phone: Lipid Panelon 03-20-2019 Cholesterol in HDL mass conc 35.3 mg/dL Abnormal [facility] a 1057 Work Phone: Comment on above: . AGE VERY LOW LOW N ORMAL HIGH 0-19 Y < 35 < 40 40-45 ---- 20- 24 Y ---- < 40 >45 ---- >24 Y ---- < 40 40-60 >60. Cholesterol in LDL mass conc 86 mg/dL 0 - 99 [facility] a 1057 Work Phone: Comment on above: . NEAR BORD AGE JOHNATHON RABLE OPTIMAL HIGH HIGH VERY HIGH 0-19 Y 0 - 109 --- 110-129 >/= 130 ---- 20-24 Y 0 - 119 --- 120-159 >/= 160 ---- >24 Y 0 - 99 100-129 130-159 160-189 >/=190. Cholesterol mass conc 173 mg/dL 0 - 199 [facility] a 1059 Work Phone: Comment on above: [...] Cholesterol non HDL mass conc 138 mg/dL [facility] a 5424 Work Phone: Comment on above: AGE DESIRABLE BORDER LINE HIGH HIGH VERY HIGH 0-19 Y 0 - 119 120 - 144 >/= 145 >/= 160 20-24 Y 0 - 149 150 - 189 >/= 190 ---- >24 Y 30 MG/DL ABOVE LDL CHOLESTEROL GOAL. Cholesterol.total/Ch olesterol in HDL mass ratio 4.9 {ratio} [facility] a 1058 Work Phone: Comment on above: REF VALUESDESIRABLE < 3.4HIGH RISK > 5.0 Triglyceride mass conc 261 mg/dL above high threshold 0 - 149 [facility] a 105 Work Phone: Comment on above: [...] mg/dL above high threshold 0 - 40 [facility] a 1057 Work Phone: Metabolic Panelon 03-20-2019 ALP enzyme act/vol 63 U/L 33 - 110 [facility] a 1057 Work Phone: Anion gap molar conc 13 mmol/L 10 - 20 MP-U [facility] a 1057 Work Phone: Bilirubin mass conc 0.4 mg/dL 0.0 - 1.2 [facility] a 1057 Work Phone: Calcium mass conc 9.8 mg/dL 8.6 - 10.6 [facility] a 1057 Work Phone: Chloride molar conc 99 mmol/L 98 - 107 [facility] a 1057 Work Phone: CO2 molar conc 34 mmol/L above high threshold 21 - 32 [facility] a 1059 Work Phone: Creatinine mass conc 0.87 mg/dL See Below -[facility] a 1058 Work Phone: Comment on above: Reference Range: 0.5 0 - 1.05 Glucose mass conc 152 mg/dL above high threshold 74 - 99 [facility] a 1057 Work Phone: Potassium molar conc 3.7 mmol/L 3.5 - 5.3 [facility] a 1057 Work Phone: Protein mass conc 7.2 g/dL 6.4 - 8.2 [facility] a 1057 Work Phone: Sodium molar conc 142 mmol/L 136 - 145 [facility] a 1057 Work Phone: Urea nitrogen mass conc 18 mg/dL 6 - 23 [facility] a 1057 Work Phone: Otheron 03-20-2019 Albumin Bromocresol purple (BCP) dye binding method mass conc 4.3 g/dL 3.4 - 5.0 [facility] a 1057 Work Phone: ALT With P-5'-P enzyme act/vol 46 U/L above high threshold 7 - 45 [facility] a 1057 Work Phone: Comment on above: Patients treated wit h Sulfasalazine may generate falsely decreased results for ALT. AST With P-5'-P enzyme act/vol 32 U/L 9 - 39 [facility] a 1057 Work Phone: Erythrocyte distribution width Ratio (RBC) 13.2 % See Below [facility] dview Work Phone: Comment on above: Reference Range: 11. 5 - 14.5 MCHC mass conc (RBC) 32.8 g/dL See Below MP-U Laura Chamberlains [facility] dview Work Phone: Comment on above: Reference Range: 32. 0 - 36.0 >60 >60 [facility] a 1057 Work Phone: Comment on above: CALCULATIONS OF LUIS MATED GFR ARE PERFORMED USING THE MDRD STUDY EQUATION FOR THE IDMS-TRACEABLE CREATININE METHODS. CLIN CHEM 2007;53:766-72 T4 - Free Thyroxine, Serumon 03-20-2019 T4 free mass conc 1.08 ng/dL See Below [facility] a [address]57 Work Phone: Comment on above: Reference Range: 0.7 8 - 1.48 Thyroxine Free testing is performed using different testing methodology at [facility] than at other [facility]. Direct result comparisons should only be made within the same method.. Patients receiving more than 5 mg/day of biotin may have interference in test results. A sample should be taken no sooner than eight hours after previous dose. Contact [phone] for additional information. TSH - Thyroid Stimulating Ho rmone, Serumon 03-20-2019 Thyrotropin Qn 3.22 {mIU/L} See Below [facility] a 2288 Work Phone: Comment on above: Reference Range: 0.4 4 - 3.98 TSH testing is performed using different testing methodology at [facility] than at other [facility]. Direct result comparisons should only be made within the same method.. Patients receiving more than 5 mg/day of biotin may have interference in test results. A sample should be taken no sooner than eight hours after previous dose. Contact [phone] for additional information. Vital Signs Date Time Vital Sign Value Performing Clinician Jorge duong 05-12-2023 09:24-0400 Body height 185.4 cm Pac 1 Work Phone: [facility] 05-12-2023 09:24-0400 Body temperature 98.2 [degF] Pac 1 Work Phone: [facility] 05-12-2023 09:24-0400 Body weight 91.17 kg Pac 1 Work Phone: [facility] 05-12-2023 09:24-0400 Diastolic blood pressure 79 mm[Hg] Pac 1 Work Phone: [facility] 05-12-2023 09:24-0400 Heart rate 75 /min Pacc 1 Work Phone: [facility] 05-12-2023 09:24-0400 Respiratory rate 18 /min Pacc 1 Work Phone: [facility] 05-12-2023 09:24-0400 SaO2% (BldA) [Mass fraction] 95 % Pacc 1 Work Phone: [facility] 05-12-2023 09:24-0400 Systolic blood pressure 136 mm[Hg] Pacc 1 Work Phone: [facility] 05-07-2023 14:25-0400 Diastolic blood pressure 66 mm[Hg] Dana Goyal MD Work Phone: [facility] 05-07-2023 14:25-0400 Heart rate 68 /min Dana Goyal MD Work Phone: [facility] 05-07-2023 14:25-0400 Systolic blood pressure 120 mm[Hg] Dana Goyal MD Work Phone: [facility] 03-20-2019 11:15-0400 BMI (Body Mass Index) 25.46 kg/m2 Collins Savage [facility] 1057 Work Phone: 03-20-2019 11:15-0400 Body Temperature 98.7 [degF] Collins Savage [facility] Ely is & rafaele [facility] [place] 1057 Work Phone: 03-20-2019 11:15-0400 Body weight 87.54 kg Collins Savage [facility] Bulmaro s & victor m [facility] 1057 Work Phone: 03-20-2019 11:15-0400 BP Diastolic 84 mm[Hg] [facility] 1057 Work Phone: 03-20-2019 11:15-0400 BP Systolic 126 mm[Hg] Collins Chamberlainlake [facility] Saridaki s & [facility] 1057 Work Phone: 03-20-2019 11:15-0400 BSA (Body Surface Area) 2.12 m2 Collins Chamberlainlake WANG Sarporshas & [facility] 1057 Work Phone: 03-20-2019 11:15-0400 Height 185.42 cm Collins [facility] Saridaki s & [facility] 1057 Work Phone: 03-20-2019 11:15-0400 Pulse (Heart Rate) 71 /min Collins Monaenavin WANG Escobar akis & [facility] 1057 Work Phone: 03-20-2019 11:15-0400 Pulse Oximetry 96 % Collins Monaenavin [facility] Saridaki s & [facility] 1057 Work Phone: 03-20-2019 11:15-0400 Respiratory Rate 14 /min Collins Chamberlainlake [facility] Saridak is & [facility] 1057 Work Phone: 03-20-2019 11:15-0400 Weight 87.54 kg Collins Chamberlainlake WANG Sarjessicaki s & [facility] 1057 Work Phone: Encounters Encounter Date Encounter Type Care Provider Facility Start: 03-13-2024 End: 03-14-2024 ambulatory COLLINS ANDREWS [facility] Start: 03-09-2024 End: 03-09-2024 ambulatory Zuhair Grubbs Facility:[facility] Start: 03-09-2024 End: 03-09-2024 ambulatory DPM Zuhair Grubbs Work Phone: [facility] Work Phone: Start: 03-09-2024 End: 03-09-2024 Departed Referred DPM Zuhair Grubbs Work Phone: [facility] Start: 02-28-2024 Refill Macario Armstrongerty DPM Work Phone: Orthopedics Comment on above: Refill Request Start: 01-25-2024 Refill Macaroi Monaeugherty DPM Work Phone: Orthopedics Comment on above: Refill Request Start: 01-17-2024 End: 01-17-2024 ambulatory MACARIO SANTOS Facility:[facility] Start: 01-10-2024 Refill Macario Armstrongerty DPM Work Phone: Orthopedics Comment on above: Refill Request Start: 12-29-2023 Refill Macario Armstrongerty DPM Work Phone: Medical Records Comment on above: Refill Request Start: 12-08-2023 Refill Macario Armstrongerty DPM Work Phone: Medical Records Comment on above: Refill Request Start: 11-26-2023 End: 11-27-2023 ambulatory [facility] Start: 11-25-2023 End: 11-25-2023 ambulatory MACARIO SANTOS Facility:[facility] Start: 11-10-2023 End: 11-10-2023 ambulatory [facility] Facility:[facility] Start: 11-03-2023 Encounter for other preprocedural examination MACARIO SANTOS [facility] Start: 11-03-2023 End: 11-03-2023 ambulatory MACARIO SANTOS Facility:[facility] Start: 10-25-2023 Refill Macario Armstrongerty DPM Work Phone: Orthopedics Comment on above: Refill Request Start: 10-25-2023 Refill Macario Armstrongerty DPM Work Phone: Orthopedics Comment on above: Refill Request Start: 10-18-2023 End: 10-19-2023 ambulatory [facility] Facility:[facility] Start: 10-14-2023 End: 10-14-2023 ambulatory MACARIO SANTOS Facility:[facility] Start: 10-11-2023 End: 10-11-2023 ambulatory Nikki Christel RT(R) Radiology Comment on above: Radiology XR Start: 10-11-2023 Patient encounter procedure Nikki Kearney RT(R) [facility] Start: 09-29-2023 Refill Macario Santos DPM Work Phone: Orthopedics Comment on above: Refill Request Start: 09-27-2023 ambulatory Macario Santos DPM Work Phone: Orthopedics Comment on above: Updated X-rays Start: 09-27-2023 E-mail encounter fro m caregiver Macario Santos DPM Work Phone: [facility] Start: 09-06-2023 End: 09-06-2023 ambulatory Gia Kilgore RT(R) Radiology Comment on above: Radiology XR Start: 09-06-2023 End: 09-06-2023 Patient encounter procedure Gia Pawan Kilgore RT(R) [facility] Comment on above: Diabetes mellitus du e to underlying condition with diabetic autonomic neuropathy, with long-term current use of insulin (HCC) (Primary Dx); Post-op pain; Charcot ankle, right; Osteonecrosis (HCC) Start: 08-05-2023 End: 08-05-2023 ambulatory Rosie Elizondo RT(R) Radiology Comment on above: Radiology XR Start: 08-05-2023 Patient encounter procedure Rosie Elizondo RT(R) [facility] Start: 07-28-2023 Orders Only Macario Santos DPM Work Phone: Orthopaedics [place] Comment on above: Disease of bone (Rima teena Dx) Start: 07-21-2023 Refill Macario Santos DPM Work Phone: [facility] Adult Comment on above: Refill Request Start: 07-07-2023 Refill Macario Santos DPM Work Phone: Orthopedics Start: 07-02-2023 End: 07-02-2023 ambulatory MACARIO SANTOS Facility:[facility] Start: 07-02-2023 End: 07-02-2023 Patient encounter procedure Macario Santos DPM Work Phone: [facility] Comment on above: Disorder of bone (Pr imary Dx); Charcot ankle, right Start: 07-02-2023 End: 07-02-2023 Subsequent hospital visit by physician Xr [facility] Radiology Comment on above: Charcot ankle, right [M14.671] Start: 06-17-2023 Refill Macario Santos DPM Work Phone: Medical Records Comment on above: Refill Request Start: 06-07-2023 End: 06-07-2023 ambulatory MACARIO SANTOS Facility:[facility] Start: 06-07-2023 End: 06-07-2023 ambulatory MACARIO SANTOS Facility:[facility] Start: 06-04-2023 Refill Macario Santos DPM Work Phone: Orthopedics Start: 06-02-2023 Refill Macario Santos DPM Work Phone: Medical Records Comment on above: Refill Request Start: 05-27-2023 End: 05-27-2023 ambulatory COLLINS ANDREWS Facility:[facility] Start: 05-27-2023 End: 05-27-2023 Patient encounter procedure Cast Tech Fairivew Work Phone: [facility] Comment on above: Charcot ankle, right (Primary Dx) Start: 05-26-2023 ambulatory Macario Santos DPM Work Phone: [facility] Comment on above: Cast is wet Start: 05-23-2023 Telephone encounter Kaylyn amin [employer] 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.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 HANDLER Work Phone: [facility] Provider Adult Comment on above: Follow Up Start: 05-19-2023 Telephone encounter Brigette parks RN [facility] Operating Room Comment on above: Follow Up Start: 05-17-2023 End: 05-18-2023 Evaluation and management of inpatient MACARIO SANTOS Facility:[facility] Start: 05-14-2023 Encounter for preprocedural cardiovascular examination MACARIO SANTOS [facility] Start: 05-14-2023 End: 05-14-2023 ambulatory DANA GOYAL Facility:[facility] Start: 05-14-2023 End: 05-14-2023 Patient encounter status Card Injection Molecular Imagi ng Start: 05-14-2023 End: 05-14-2023 Subsequent hospital visit by physician Card Injection Molecular Imaging Comment on above: Preoperative cardiov ascular examination [Z01.810] Start: 05-14-2023 End: 05-14-2023 ambulatory DANA GOYAL Facility:[facility] Start: 05-12-2023 End: 05-12-2023 Evaluation and management of inpatient MACARIO SANTOS Facility:[facility] Start: 05-12-2023 End: 05-12-2023 Admission to [facility] Pacc Anson 1 Work Phone: [facility] Start: 05-12-2023 End: 05-12-2023 ambulatory Pacc Anson 1 Work Phone: Pre Anesthesia Comment on above: Pre-op exam (Primary Dx); Diabetes mellitus type 2 with neurological manifestations (HCC); Former smoker; Intermittent asthma without complication, unspecified asthma severity Start: 05-12-2023 End: 05-12-2023 Preprocedural examination done Pacc Anson 1 Work Phone: Pre Anesthesia Start: 05-07-2023 End: 05-07-2023 ambulatory DANA GOYAL Facility:[facility] Start: 05-07-2023 End: 05-07-2023 Office outpatient new 45 minutes Dana Goyal MD Work Phone: Cardiology Comment on above: PAD (peripheral charity ry disease) (HCC) (Primary Dx); Preoperative cardiovascular examination; Diabetes mellitus type 2 with neurological manifestations (HCC); Former smoker Start: 05-07-2023 End: 05-07-2023 Patient encounter status Dana Goyal MD Work Phone: Cardiology Start: 05-05-2023 Orders Only Macario Santos DPM Work Phone: [facility] Comment on above: Osteonecrosis (HCC) (Primary Dx); Charcot ankle, right; Retained orthopedic hardware; Deformity of ankle joint, right Surgical Follow Up Refill Request Start: 05-03-2023 End: 05-03-2023 ambulatory SORTO ODELL SANTOS Facility:[facility] Start: 05-03-2023 End: 05-03-2023 Patient encounter procedure Macario Santos DPM Work Phone: [facility] Comment on above: Osteonecrosis (HCC) (Primary Dx); Charcot ankle, right; Retained orthopedic hardware Start: 04-22-2023 End: 04-22-2023 ambulatory SORTO ODELL SANTOS Facility:[facility] Start: 04-22-2023 End: 04-22-2023 ambulatory SORTO ODELL SANTOS Facility:[facility] Start: 04-22-2023 End: 04-22-2023 Patient encounter procedure Macario Santos DPM Work Phone: Orthopedics Comment on above: Osteonecrosis (HCC) (Primary Dx); Charcot ankle, right Start: 04-20-2023 Orders Only Sortochandu Monaedong DPM Work Phone: [facility] Comment on above: Charcot's joint of [...] mellitus with diabetic peripheral angiopathy without gangrene ([facility]); Unspecified asthma, uncomplicated; Type 2 diabetes mellitus with diabetic polyneuropathy ([facility]); Depression, unspecified; Irritable bowel syndrome without diarrhea; Hypothyroidism, unspecified; Unspecified osteoarthritis, unspecified site; Unspecified visual loss; Unspecified hearing loss, unspecified ear; Personal history of nicotine dependence; 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 Fang Rodriguez Facility:[id number] Start: 03-17-2023 Encounter for preprocedural laboratory examination Dr. Fang Rodriguez [facility] Start: 01-08-2023 End: 01-08-[address] Fang Rodriguez Facility:[id number] Start: 01-05-[address] Fang Rodriguez Facility:[id number] Start: 01-05-2023 Encounter for preprocedural cardiovascular examination Dr. Fang Rodriguez [facility] Start: 08-21-2022 End: 08-21-[address] Fang Rodriguez Facility:[id number] Start: 08-13-2022 End: 08-13-[address] Fang Rodriguez Facility:[id number] Start: 08-10-[address] Fang Rodriguez Facility:[id number] Start: 06-05-2022 End: 06-05-[address] Fang Rodriguez Facility:[id number] Start: 06-01-[address] Fang Rodriguez Facility:[id number] Start: 02-04-2021 End: 02-04-2021 Orders Only Fang aFn Work Phone: [facility] [place] Comment on above: Pain (Primary Dx) Start: 02-23-2020 Patient encounter procedure Collins Savage [facility] Janette & Roberto [facility] 1051 Work Phone: Start: 11-20-2019 Patient encounter procedure Collins Savage [facility] Janette & [facility] 1059 Work Phone: Start: 08-16-2019 Patient encounter procedure Collins Savage [facility] Janette & [facility] 1057 Work Phone: Start: 06-22-2019 Patient encounter procedure Collins Savage [facility] 1057 Work Phone: Start: 03-20-2019 Patient encounter procedure Collins Savage [facility] [facility] Work Phone: Start: 01-26-2019 Nursing evaluation o f patient and report Collins Savage [facility] 1057 Work Phone: Start: 11-04-2018 Patient encounter procedure Collins Chamber[place]lake [facility] 10[facility] Work Phone: Start: 03-03-2018 Patient encounter procedure Collins Monaenavin [facility] 1057 Work Phone: Start: 03-03-[address] [facility] ity:PCG Start: 07-05-2017 Patient encounter procedure Collins Savage [facility] 10[facility] Work Phone: Start: 03-25-2017 Patient encounter procedure Collins [place]lake [facility] 10[facility] Work Phone: Encounter for gynecological examination (general) (routine) without abnormal findings Collins Monaenavin [facility] 10[facility] Work Phone: [...] 03-19-2025 Screening for malignant neoplasm of colon [facility] Start: 11-26-2024 Hepatitis B surface antibody level LDL Cholesterol [facility] Start: 07-27-2024 Hepatitis B surface antibody level LDL Cholesterol [facility] Start: 07-27-2024 Lipid panel Lipid Panel [facility] Start: 07-27-2024 Thyroid stimulating hormone measurement TSH Level [facility] Start: 07-16-2024 Influenza vaccination Influenz a Vaccine (Season Ended) [facility] Start: 05-26-2024 Hemoglobin A1c measurement HbA1C [facility] Start: 05-07-2024 BP CONTROLLED (<130/80) BP CONTROLLED (<130/80) [facility] Start: 05-04-2024 Hemoglobin A1c measurement HbA1C [facility] Start: 01-25-2024 Hemoglobin A1c measurement HbA1C [facility] Start: 11-15-2023 Behavioral Health Screening Behavioral Health Screening [facility] Start: 11-15-2023 Depression Assessment Depression Ass essment [facility] Start: 10-26-2023 Hemoglobin A1c measurement Diabetes: Hemoglobin A1C [facility] Start: 07-16-2023 Covid-19 Vaccine ( season) Covid-19 Vaccine ( season) [facility] Start: 07-16-2023 [facility] Start: 05-07-2023 End: 06-05-2024 NM CARDIAC PERF STRESS/PHARM NM CARDIAC PERF STRESS/PHARM Radiology Routine Preoperative cardiovascular examination Expected: 05/07/2023, Expires: 06/05/2024 [facility] Work Phone: Comment on above: Expected: 05/07/2023 , Expires: 06/05/2024 Start: 05-07-2023 End: 05-07-2024 PVR LEG [facility] PVR [facility]G [facility] Vascular Lab Routine PAD (peripheral artery disease) (HCC) Expected: 05/07/2023, Expires: 05/07/2024 [facility] Work Phone: Comment on above: Expected: 05/07/2023 , Expires: 05/07/2024 Start: 05-07-2023 End: 05-07-2024 US LEG ARTERIAL PERIPH [facility] US LEG ARTERIAL PERIPH [facility] Vascular Lab Routine PAD (peripheral artery disease) (HCC) Expected: 05/07/2023, Expires: 05/07/2024 [facility] Work Phone: Comment on above: Expected: 05/07/2023 , Expires: 05/07/2024 Start: 11-15-2022 DEPRESSION ASSESSMENT DEPRESSION ASS ESSMENT [facility] Start: 2021 Hepatitis B Vaccine (1 of 3 - Risk 3-dose series) Hepatitis B Vaccine (1 of 3 - Risk 3-dose series) [facility] Start: 2021 RSV Vaccine (1 - 1-dose 60+ series) RSV Vaccine (1 - 1-dose 60+ series) [facility] Start: 07-16-2020 Influenza vaccination INFLUENZA (#1) [facility] Start: 03-25-2020 Screening for malignant neoplasm of [facility] Start: 02-23-2020 [facility] Ilana tavares [facility] 1058 Work Phone: Start: 09-20-2019 Hemoglobin A1c/Hemoglobin.total in Blood HBA1C [facility] Start: 03-20-2019 MG Breast screening Mamm - Scr eening Mammogram w/ Tomosynthesis [facility] 1050 Work Phone: Start: 03-20-2019 Xray Bone Dens ity, Dexa 1 or More Sites [facility] 1050 Work Phone: Start: 10-13-2014 HbA1c (Bld) [Mass fraction] HBA1C [facility] Start: 2011 Screening for malignant neoplasm of colon [facility] Start: 2011 SHINGRIX VACCINE (1 of 2) SHINGRIX VACCINE (1 of 2) [facility] Start: 2011 Zoster Vaccines (1 o f 2) Zoster Vaccines (1 of 2) [facility] Start: 2006 COLOGUARD (FIT-DNA) COLOGUARD (FIT-D NA) [facility] Start: 2006 Colonoscopy COLONOSCOPY [facility] Start: 2006 COLORECTAL CANCER SCREENING COLORECTAL CANCER SCREENING [facility] Start: [address] COLONOGRAPHY [facility] Start: 2006 FECAL OCCULT BLOOD FECAL OCCULT BLOO D [facility] Start: 2006 Screening for malignant neoplasm of colon [facility] Start: 2006 SIGMOIDOSCOPY SIGMOIDOSCOPY [facility] Start: 2003 PAP TESTING PAP TESTING [facility] Start: 2001 Mammography [facility] Start: 2001 Screening for malignant neoplasm of breast [facility] Start: 1991 HPV TESTING HPV TESTING [facility] Start: 1991 Screening for malignant neoplasm of cervix HPV Testing [facility] Start: 1983 DTaP/Tdap/Td Vaccine s (1 - Tdap) DTaP/Tdap/Td Vaccines (1 - Tdap) [facility] Start: 1982 PAP TESTING PAP TESTING [facility] Start: 1982 Screening for malignant neoplasm of cervix [facility] Start: 02-08-1980 Urine microalbumin profile [facility] Start: 1979 ANNUAL PCP TEAM CHRONIC DISEASE VISIT ANNUAL PCP TEAM CHRONIC DISEASE VISIT [facility] Start: 1979 BP CONTROLLED (<130/80) BP CONTROLLED (<130/80) [facility] Start: 1979 Hepatitis B surface antibody level LDL CHOLESTEROL [facility] Start: 1979 HEPATITIS C SCREENING HEPATITIS C [facility] Start: 1979 Hepatitis C screening Hepatitis C [facility] Start: 1979 HIV SCREENING HIV SCREENING [facility] Start: 1979 [facility] Start: 1979 SPIROMETRY SPIROMETRY [facility] Start: 1977 ONE PNEUMOVAX PRIOR TO AGE 65 ONE PNEUMOVAX PRIOR TO AGE 65 [facility] Start: 1973 Adult depression screening assessment DEPRESSION SCREENING [facility] Start: 1971 [object Object] DIABETIC FOOT EXAM [facility] Start: 1971 Diabetic foot examination [facility] Start: 1971 Glaucoma screening [facility] Start: 1971 Hepatitis B screening URINE ALBUMIN:CREATININE RATIO [facility] Start: 1971 Hepatitis C antibody , confirmatory test DILATED RETINAL EXAM [facility] Start: 1967 PNEUMOCOCCAL (1 - PCV) PNEUMOCOCCAL (1 - PCV) [facility] Start: 1967 Pneumococcal vaccination [facility] Start: 1967 Pneumococcal Vaccine : Pediatrics (0 to 5 Years) and At-Risk Patients (6 to 64 Years) (1 - PCV) Pneumococcal Vaccine: Pediatrics (0 to 5 Years) and At-Risk Patients (6 to 64 Years) (1 - PCV) [facility] Start: 1962 MMR Vaccines (1 of 1 - Standard series) MMR Vaccines (1 of 1 - Standard series) [facility] Start: 1961 COVID-19 VACCINE (#1) COVID-19 VACCI NE (#1) [facility] Start: 1961 HIV screening HIV Screening [facility] Start: 1961 Screening for malignant neoplasm of colon [facility] Start: 1961 Yearly Adult Physical Yearly Adult P hysical [facility] End: 07-31-2024 MRI ANKLE WO IVCON LEFT MRI ANKLE WO IVCON LEFT Radiology Routine Disorder of bone 1 Occurrences starting 07/02/2023 until 07/31/2024 [facility] Work Phone: Comment on above: 1 Occurrences starti ng 07/02/2023 until 07/31/2024 End: 03-06-2022 Radex ankle complete minimum 3 views XR ANKLE GENERAL 3V AP/LAT/OBL BILAT Radiology Routine Pain 1 Occurrences starting 02/05/2021 until 03/06/2022 [facility] Comment on above: 1 Occurrences starti ng 02/05/2021 until 03/06/2022 End: 03-06-2022 Radex foot complete minimum 3 views XR FOOT GENERAL 3V AP/LAT/OBL RT Radiology Routine Pain 1 Occurrences starting 02/05/2021 until 03/06/2022 [facility] Comment on above: 1 Occurrences starti ng 02/05/2021 until 03/06/2022 End: 07-31-2024 XR ANKLE GENERAL 3V AP/LAT/OBL LEFT XR ANKLE GENERAL 3V AP/LAT/OBL LEFT Radiology Routine Disorder of bone 1 Occurrences starting 07/02/2023 until 07/31/2024 [facility] Work Phone: Comment on above: 1 Occurrences starti ng 07/02/2023 until 07/31/2024 End: 05-19-2024 XR ANKLE GENERAL 3V AP/LAT/OBL RIGHT XR ANKLE GENERAL 3V AP/LAT/OBL RIGHT Radiology Routine Charcot's joint of right ankle 1 Occurrences starting 04/20/2023 until 05/19/2024 [facility] Work Phone: Comment on above: 1 Occurrences starti ng 04/20/2023 until 05/19/2024 End: 07-03-2024 XR ANKLE GENERAL 3V AP/LAT/OBL RIGHT XR ANKLE GENERAL 3V AP/LAT/OBL RIGHT Radiology Routine Charcot ankle, right 1 Occurrences starting 06/04/2023 until 07/03/2024 [facility] Work Phone: Comment on above: 1 Occurrences starti ng 06/04/2023 until 07/03/2024 XR ANKLE GENERAL 3V AP/LAT/OBL RIGHT XR ANKLE GENERAL 3V AP/LAT/OBL RIGHT Radiology Routine Charcot ankle, right 07/02/2023 10:35 AM EDT [facility] Work Phone: End: 08-26-2024 XR ANKLE GENERAL 3V AP/LAT/OBL RIGHT XR ANKLE GENERAL 3V AP/LAT/OBL RIGHT Radiology Routine Disease of bone 1 Occurrences starting 07/28/2023 until 08/26/2024 [facility] Work Phone: Comment on above: 1 Occurrences starti ng 07/28/2023 until 08/26/2024 End: 09-28-2024 XR ANKLE GENERAL 3V AP/LAT/OBL RIGHT XR ANKLE GENERAL 3V AP/LAT/OBL RIGHT Radiology Routine Diabetes mellitus due to underlying condition with diabetic autonomic neuropathy, with long-term current use of insulin (HCC) 1 Occurrences starting 08/30/2023 until 09/28/2024 [facility] Work Phone: Comment on above: 1 Occurrences starti ng 08/30/2023 until 09/28/2024 XR ANKLE GENERAL 3V AP/LAT/OBL RIGHT XR ANKLE GENERAL 3V AP/LAT/OBL RIGHT Radiology Routine Diabetes mellitus due to underlying condition with diabetic autonomic neuropathy, with long-term current use of insulin (HCC) 09/06/2023 1:28 PM EDT [facility] Work Phone: End: 10-05-2024 XR FOOT GENERAL 3V AP/LAT/OBL BILATERAL XR FOOT GENERAL 3V AP/LAT/OBL BILATERAL Radiology Routine Diabetes mellitus due to underlying condition with diabetic autonomic neuropathy, with long-term current use of insulin ([facility]) 1 Occurrences starting 09/06/2023 until 10/05/2024 [facility] Work Phone: Comment on above: 1 Occurrences starti ng 09/06/2023 until 10/05/2024 End: 05-19-2024 XR TIBIA FIBULA 2V AP/LAT LEFT XR TIBIA FIBULA 2V AP/LAT LEFT Radiology Routine Leg abscess 1 Occurrences starting 04/20/2023 until 05/19/2024 [facility] Work Phone: Comment on above: 1 Occurrences starti ng 04/20/2023 until 05/19/2024 [facility] Janette Roberto [facility] 1057 Work Phone: [facility] NEGATED: Highlighted row has been ruled out! Planned Goals not documented [facility] Laura7 Work Phone: Payers Date Payer Category Payer Self-pay 2021 Unknown 2021 Unknown [id number] 2020 Medicaid MEDICAID [facility] MEDICAID [id number] 2020-Present Medicaid [id number] 2020 Medicaid MEDICAID [facility] MEDICAID [id number] 2020-Present [phone] [address] [place] [address] Medicaid [id number] 2020 Medicaid [id number] 2016 Medicare MEDICARE MEDICAR E A AND B [id number] 2016-Present [place], [place] Medicare [id number] 2016 Medicare MEDICARE MEDICAR E A AND B [id number] 2016-Present [phone] [address] [address] [place] [address] Medicare [id number] 1961 Unknown [id number] 1961 Unknown [id number] 1961 Unknown [id number] 1961 Unknown [id number] 1961 Unknown [id number] 1961 Unknown [id number] 1961 Unknown [id number] 1961 Unknown [id number] 1961 Unknown [id number] 1961 Unknown [id number] 1961 Unknown [id number] Social History Date Type Detail Facility Start: 06-27-2014 End: 05-12-2023 Tobacco smoking status NEIS Former smoker [facility] End: 04-24-2009 History of tobacco use Current smoker [facility] End: 04-24-2009 History of tobacco use Cigarette Smoker [facility] Start: 06-27-2014 End: 05-07-2023 Cigarettes smoked current (pack per day) - Reported [facility] Start: 06-27-2014 End: 11-25-2023 Alcohol intake Current drinker of alcohol (finding) [facility] Start: 1960 Sex Assigned At Not on file [facility] Exposure to SARS-CoV-2 (event) Not sure [facility] Start: 1960 Sex Assigned At [facility] Start: 05-07-2023 End: 05-17-2023 Tobacco use panel [facility] National Score (1-100), lower number is lower risk 81 [facility] Start: 04-20-2023 Gender identity Identifies as female gender (finding) [facility] Tobacco smoking status NEIS Tobacco smoking consumption unknown [facility] Work Phone: Start: 11-03-2023 Alcohol Comment not on a weekly basi s [facility] NEGATED: Highlighted row - Former smoker - [facility] 1057 Work Phone: Medical Equipment Procedure Code [...] daily as instructed Quantity: 1 Refills: Cynthia Collnis Savage DO Start : 20-Mar-2019 Active 100 [...] 08-Mar-2014 Active 100 Unit Box Start: 03-08-2014 Tkx-Tz-Y-Kind Implant - [id number] Start: 06-29-2011 Comment on above: Description: K-WIRE Gqx-Fe-T-Kind Implant - [id number] Start: 04-24-2014 Comment on above: Description: THREADE D GUIDE WIRE Screw Bn 2.4mm 3 0mm Ti Cmf Lag - [id number] Start: 06-29-2011 Comment on above: Description: OSTEOME D CANNULATED SCREW Screw Bn 4mm 44m m Lcp Ti St - [id number] Start: 04-24-2014 Phantom 2.0 Acti vcor Nil [id number] Start: 05-17-2023 Phantom Nail Crossing Screw 5.0mm X 26mm Length Headed [id number] Start: 05-17-2023 Graft, Flexigraf t, Hamstring, Smi Tendinosus, Frozen Case [id number] Start: 12-09-2021 Comment on above: Description: Convert ed from [facility]. Please see archived information for full log information. Paste Mix Plus, 5cc Case [id number] Start: 06-05-2022 Comment on above: Description: Convert ed from [facility]. Please see archived information for full log information. Bone, Cancellous , Crushed, .1-4mm 15cc, Freeze Dried Case [id number] Start: 08-13-2022 Comment on above: Description: Convert ed from [facility]. Please see archived information for full log information. Graft, Flexigraf t, Hamstring, Smi Tendinosus, Frozen Case [id number] Start: 10-07-2022 Comment on above: Description: Convert ed from [facility]. Please see archived information for full log information. 22 Mm Concave Re amer Case [id number] Start: 12-09-2021 Comment on above: Description: Convert ed from [facility]. Please see archived information for full log information. Dynaclip Procedu re Pack Case [id number] Start: 06-05-2022 Comment on above: Description: Convert ed from [facility]. Please see archived information for full log information. 2.7 Overdrill Ca se [id number] Start: 08-13-2022 Comment on above: Description: Convert ed from [facility]. Please see archived information for full log information. Quick Whip Stitc h Case [id number] Start: 08-21-2022 Comment on above: Description: Convert ed from [facility]. Please see archived information for full log information. Cement Simplex Gentamicin Bone High Viscosity 20ml Sterile 40gm - [id number] Start: 11-10-2023 Phantom Nail Crossing Screw [...] status health issues are not documented Disease [facility] 105 Work Phone: Mental Status Date Assessment Result Facility NEGATED: Highlighted row Cognitive function [Interpretation] Cognitive status health issues are not documented Disease [facility] 1056 Work Phone: Clinical Notes 05-06-2021 to 11-25-2023 Nikki Kearney, ([place]) - 10/11/2023 12:28 PM Macario Sykes DPM - 09/06/2023 2:17 PM EDTCarter, Gia Pawan, RT(R) - 09/06/2023 1:31 PM KatiuskaRosie Pawan, RT(R) - 08/05/2023 2:15 PM EDT Note Date & Type Note Facility 11-25-2023 Note HNO ID: [id number] Author: MACARIO SANTOS DPM Service: ? Author [...] reflux, constipation, diarrhea, (more content not included)... [facility] 11-10-2023 Note HNO ID: [id number] Author: Donell Boateng Service: Pharmacy Author Type: ? Type: Plan of Care Filed: 11/11/2023 10:18 AM Note Text: PHARMACY BEDSIDE DELIVERY SERVICE Patient Name: Marie Sexton The marked outpatient medications were filled at [facility] pharmacy and picked up at the [...] your Primary Care Provider. Donell Boateng PAGER: [phone] November 11, 2023 10:18 AM [facility] 11-10-2023 Note HNO ID: [id number] Author: Olivia Faulkner APRN.RN CARE TRANSITION Service: Anesthesiology Author Type: Nurse Nurseryman Assistant Type: Anesthesia Procedure Notes Filed: 11/10/2023 1:12 PM Note Text: ANESTHESIOLOGY PROCEDURE NOTE Airway General Information Procedure Start Time/Medication Administration: 11/10/2023 1:06 PM Patient location during procedure: OR Patient identity confirmed: arm band and patient Staffing RN CARE TRANSITION: Olivia Faulkner APRN.RN CARE TRANSITION Performed by: LYDIA Indications and Patient Condition [...] November 10, 2023 TIME: 1:11 PM CSN: [id number] [facility] 11-10-2023 Note HNO ID: [id number] Author: Dheeraj Rodrigues DO Service: Pain Management [...] November 10, 2023 TIME: 1:00 PM CSN: [id number] [facility] 11-10-2023 Note HNO ID: [id number] Author: Dheeraj Rodrigues DO Service: Pain Management [...] November 10, 2023 TIME: 12:57 PM CSN: [id number] [facility] 10-14-2023 Note HNO ID: [id number] Author: Cleo Aragon RT(R) Service: ? Author Type: Bath Design Sales Consultant Type: Progress Notes Filed: 10/14/2023 11:46 AM [...] RT Dev(R) October 14, 2023 11:44 AM [facility] 10-11-2023 Note HNO ID: [id number] Author: Macario Santos DPM Service: ? Author [...] bilateral. Capillary r (more content not included)... [facility] 10-11-2023 Note HNO ID: [id number] Author: Nikki Kearney RT(R) Service: ? Author [...] RT Amelia(R) October 11, 2023 12:28 PM [facility] 10-11-2023 History of Present illness Narrative [...] 2023 12:28 PM documented in this encounter [facility] 09-06-2023 Note HNO ID: [id number] Author: Macario Santos DPM Service: ? Author [...] as noted below. (more content not included)... [facility] 09-06-2023 Note HNO ID: [id number] Author: Gia Kilgore RT(R) Service: ? Author [...] RT Marivel(R) September 06, 2023 1:31 PM [facility] 09-06-2023 History of Present illness Narrative [...] the right foot and ankle as described. Intensive Care Unit Registered Nurse: SUBHASH Transcribe Date/Time: Apr 22 2023 4:18P... Last MRI Ankle - Impression Only MRI ANKLE WO IVCON RT Exam End: 04/29/2021 11:40 AM (Final result) Impression: IMPRESSION: POSTERIOR TIBIALIS TENOSYNOVITIS. 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 ABNORMAL APPEARANCES OF THE SPRING LIGAMENT AND CALCANEOFIBULAR LIGAMENT. FINDINGS SUGGESTIVE OF MILD PLANTAR FASCIITIS. DIABETIC MUSCLE ATROPHY. Intensive Care Unit Registered Nurse: SUBHASH ... Last MRI Foot - [...] which included preparing to see the patient, [id number] patient care, completing clinical documentation, obtaining and/or reviewing separately obtained history, performing a medically appropriate examination, counseling and educating the patient/family/caregiver, and ordering medications, tests, or procedures. documented in this encounter [facility] 09-06-2023 History of Present illness Narrative Radiology [...] 2023 1:31 PM documented in this encounter [facility] 08-05-2023 Note HNO ID: [id number] Author: Macario Santos DPM Service: ? Author [...] Tibial pulses ar (more content not included)... [facility] 08-05-2023 Note HNO ID: [id number] Author: Rosie Elizondo RT(R) Service: ? Author [...] RT Anup(R) August 05, 2023 2:15 PM [facility] 08-05-2023 History of Present illness Narrative [...] 2023 2:15 PM documented in this encounter [facility] 07-02-2023 Note HNO ID: [id number] Author: Macraio Santos DPM Service: ? Author Type: Physician [...] and ROS ob (more content not included)... [facility] 07-02-2023 Note HNO ID: [id number] Author: Omayra Pdagett RT(R) Service: ? Author Type: Technologist Type: [...] RT Radhames(R) July 02, 2023 10:42 AM [facility] 07-02-2023 History of Present illness Narrative [...] the right foot and ankle as described. Intensive Care Unit Registered Nurse: SUBHASH Transcribe Date/Time: Apr 22 2023 4:18P... Last MRI Ankle - Impression Only MRI ANKLE WO IVCON RT Exam End: 04/29/2021 11:40 AM (Final result) Impression: IMPRESSION: POSTERIOR TIBIALIS TENOSYNOVITIS. 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 ABNORMAL APPEARANCES OF THE SPRING LIGAMENT AND CALCANEOFIBULAR LIGAMENT. FINDINGS SUGGESTIVE OF MILD PLANTAR FASCIITIS. DIABETIC MUSCLE ATROPHY. Intensive Care Unit Registered Nurse: SUBHASH ... Last MRI Foot - [...] which included preparing to see the patient, [id number] patient care, completing clinical documentation, obtaining and/or reviewing separately obtained history, performing a medically appropriate examination, counseling and educating the patient/family/caregiver, and ordering medications, tests, or procedures. documented in this encounter [facility] 07-02-2023 History of Present illness Narrative Radiology [...] 2023 10:42 AM documented in this encounter [facility] 07-02-2023 Miscellaneous Notes RADIOLOGY SERVICE PROGRESS NOTE DATE OF SERVICE: July 02, 2023 TIME OF SERVICE: 10:03AM EVENT: ARRIVED IN WHEELCHAIR ADDITIONAL EVENT DETAILS: NA SIGNATURE: Francesca Kaur PATIENT NAME: Marie Sexton DATE: July 02, 2023 TIME: 10:12 AM PAGER/CONTACT #: documented in this encounter [facility] 06-07-2023 Note HNO ID: [id number] Author: Mahendra Prajapati MA Service: ? Author Type: [employer] Machine Operator Type: Progress Notes Filed: 06/07/2023 2:52 PM Note Text: Marie presents today for splint removal. Marie's splint was removed and skin cleansed. Marie tolerated this procedure well. Directed Marie and daughter to xray prior to appt w/ Dr. Santos. Mahendra Prajapati MA Splint was removed by Lorraine Yancey RN [facility] 06-07-2023 Note HNO ID: [id number] Author: Macario Santos DPM Service: ? Author [...] anxiety or eula (more content not included)... [facility] 06-07-2023 Note HNO ID: [id number] Author: Sudha Wadsworth RT(R) Service: ? Author [...] RT Rod(R) June 07, 2023 12:07 PM [facility] 06-03-2023 Miscellaneous Notes Message from [place]: Refills have been requested for the following medications: oxyCODONE-acetaminophen (PERCOCET) 5-325 mg tablet [Dr. Greg Santos] Preferred pharmacy: [facility] [address] [place], [place] [id number] [address] [facility] Delivery method: Pickup documented in this encounter [facility] 05-27-2023 Note HNO ID: [id number] Author: Regi Cherry Ma Service: ? Author [...] expressed thanks and understanding. Regi Cherry Ma [facility] 05-27-2023 History of Present illness Narrative [...] Regi Cherry Ma documented in this encounter [facility] 05-26-2023 Miscellaneous Notes Contacted patient and scheduled a Cast room appointment on 05/27/2023. Patient calling in stating that her cast is wet and she is trying to dry it with a blow mccann. She is asking what should she do? Please call patient can be reached at [phone] Thank you documented in this encounter [facility] 05-23-2023 Miscellaneous Notes Attempted to call pt to check on status of CADD pump. No answer, left detailed VM. Kaylyn London APRN.GERALDO documented in this encounter [facility] 05-19-2023 Miscellaneous Notes Pt is POD# 2. S/P Right Leg removal of deep hardware Right Ankle fusion Right subtalar joint fusion Fibular osteotomy right ankle Orrtanna of bone marrow autograft right leg with [...] Mara Stallworth RN Acute Pain Management Service [facility] documented in this encounter [facility] 05-18-2023 Note HNO ID: [id number] Author: Giselle Nguyen RN Service: Care Management [...] 18, 2023 TIME: 10:00 AM CONTACT #: [phone] [facility] 05-17-2023 Note HNO ID: [id number] Author: Simin Cervantes RPh Service: Pharmacy Author Type: Pharmacist Type: Plan of Care Filed: 05/17/2023 6:43 PM Note Text: PHARMACY MEDICATION REVIEW Patient Name: Marie Sexton : 1960 The following medications were updated within the KEY ACCOUNT REPRESENTATIVE medication list: Medications ADDED to KEY ACCOUNT REPRESENTATIVE medication list Oxycodone-acetaminophen Humalog mix 75-25 Medications CHANGED on KEY ACCOUNT REPRESENTATIVE medication list Gabapentin Fluoxetine Lantus Levothyroxine Medications REMOVED from KEY ACCOUNT REPRESENTATIVE medication list Trazodone Hydrocodone-acetaminophen Turmeric (duplicate) Symbicort [...] Yes Completed by: Simin Cervantes PharmD All KEY ACCOUNT REPRESENTATIVE medications addressed by LIP Patient interested in Bedside Delivery Services or using OP Pharmacy at discharge? Unable to assess Preferred outpatient pharmacy: [facility] [address] [place] [phone] [facility] [phone] Allergies: Codeine GI Upset Demerol [Meperidine* [...] Facility-Administered Medications: None Simin Cervantes RPh 05/17/2023 [facility] 05-17-2023 Note HNO ID: [id number] Author: Francesca Young RN Service: Nursing Author Type: Registered Nurse Type: Nursing Progress Note Filed: 05/17/2023 3:54 PM Note Text: Report to DEMI Jaffe resuming care of patient. [facility] 05-17-2023 Note HNO ID: [id number] Author: Carlos Barbour MD Service: Anesthesiology Author [...] May 17, 2023 TIME: 1:51 PM CSN: [id number] [facility] 05-17-2023 Note HNO ID: [id number] Author: Carlos Barbour MD Service: Anesthesiology Author [...] specimen collected. Minimal or no blood loss [id number]/transfer criteria are met upon discharge. SIGNATURE: Carlos Barbour MD PATIENT NAME: Marie Sexton DATE: May 17, 2023 TIME: 1:50 PM CSN: [id number] [facility] 05-17-2023 Note HNO ID: [id number] Author: Ramiro Smith MD Service: Anesthesiology Author [...] May 17, 2023 TIME: 8:19 AM CSN: [id number] [facility] 05-17-2023 Note HNO ID: [id number] Author: Ramiro Smith MD Service: Anesthesiology Author [...] May 17, 2023 TIME: 8:17 AM CSN: [id number] [facility] 05-17-2023 Note HNO ID: [id number] Author: SÁNCHEZ Junior Service: ? Author Type: Manager Ent Type: Anesthesia Procedure Notes Filed: 05/17/2023 8:16 [...] May 17, 2023 TIME: 8:15 AM CSN: [id number] [facility] 05-17-2023 Note HNO ID: [id number] Author: Brigette Stallworth RN Service: Pain Management Author Type: Registered Nurse Type: Nursing Progress Note Filed: 05/17/2023 7:40 AM Note Text: Patient tolerated procedure very well. Report to primary nurse. [facility] 05-14-2023 Note HNO ID: [id number] Author: RT Myesha(R) Service: Nuclear Medicine Author [...] STATUS: Discontinued PROCEDURE TYPE: NM Stress: 13.1mCi [id number]-[id number] was administered IV for Rest Imaging at 1145 by Juana BUTLER,RT(N). 33.3 mCi Ws86l-Pgphrai was administered IV for Stress Imaging at 1311 by RT Myesha(R). PATIENT DISCHARGED TO: Ambulatory patient, left NM department area. A Diagnostic radioactive procedure has taken place, with no further precautions necessary other than routine body substance precautions. More information regarding radiation safety can be found using this link: [email or web address] rotection %[email or web address]-%20Diagnostic%20Nuclear%20Med icine%20Procedures.pdf SIGNATURE: RT Genet(R) PATIENT NAME: Aprilrad DATE: May 14, 2023 TIME: 11:48 AM PAGER/CONTACT #: [facility] 05-14-2023 Note HNO ID: [id number] Author: Mai Valencia RN Service: Radiology Author [...] ALLERGIES: Reviewed and unchanged MEDICATIONS REVIEWED BY: Photo Mask Processor PROCEDURE TYPE: NM STRESS: 0.4 mg of [...] safety can be found using this link: [email or web address] [email or web address]%20P rotection %20-%20Diagnostic%20Nuclear%20Med icine%20Procedures.pdf SIGNATURE: Mai Valencia RN PATIENT NAME: April DATE: May 14, 2023 TIME: 1:04 PM PAGER/CONTACT #:[phone] [facility] 05-14-2023 History of Present illness Narrative [...] STATUS: Discontinued PROCEDURE TYPE: NM Stress: 13.1mCi Wk39b-Hxqgqfl was administered IV for Rest Imaging at 1145 by Juana BUTLER,RT(N). 33.3 mCi Mt95u-Jixdcjb was administered IV for Stress Imaging at 1311 by RT Myesha(R). PATIENT DISCHARGED TO: Ambulatory patient, left NM department area. A Diagnostic radioactive procedure has taken place, with no further precautions necessary other than routine body substance precautions. More information regarding radiation safety can be found using this link: [email or web address]%20P rotection%20-%20Diagnostic%20Nucl ear%20Medicine%20Procedures.pdf SIGNATURE: Lucero Cruz RT(R) [...] ALLERGIES: Reviewed and unchanged MEDICATIONS REVIEWED BY: Photo Mask Processor PROCEDURE TYPE: NM STRESS: 0.4 mg of [...] safety can be found using this link: [email or web address] [email or web address]-%20Diagnostic%20Nucl ear%20Medicine%20Procedures.pdf SIGNATURE: Mai Valencia RN PATIENT NAME: April Darshan DATE: May 14, 2023 TIME: 1:04 PM PAGER/CONTACT #:[phone] documented in this encounter [facility] 05-12-2023 Instructions Indiana Clemens PA-C - 05/12/2023 9:32 AM EDT PATIENT PREOPERATIVE INSTRUCTIONS Macario Santos* has scheduled you for your procedure at this surgery center: [facility]: [phone] --[id number] [id number]. Please check in on the 1st floor [...] coffee creamer - NO pulp juices (ex. [place] juice) Is Patient Diabetic:Yes Preoperative Instructions for [...] Procedures: - YOU MUST HAVE A RESPONSIBLE PAINTER ROUGH TAKE YOU HOME. A FRONT END ASSISTANT OR STAFF PHARMACIST CANNOT BE MADE A RESPONSIBLE PAINTER ROUGH. - We recommend that a responsible person [...] Advance Directive, please fax a copy to [phone] or email to for it to be [...] Indiana Clemens PA-C documented in this encounter [facility] 05-12-2023 History and physical note HISTORY AND [...] fevers. Neuro: No history of TIA's, stroke, MICROBIOLOGICAL LABORATORY TECHNICIAN tumor, impaired sensorium, hemiplegia, paraplegia or quadraplegia. No neurological symptoms or problems. + peripheral neuropathy Respiratory: No history of current cough or dyspnea, or pneumonia in the past 6 weeks. No history of respiratory/pulmonary symptoms or problems. + former smoker + asthma uses inhalers PRN Cardiovascular: No history of HTN requiring medication, no history of angina, CHF, [place], cardiac surgery or stents. Denies rest pain, gangrene or revascularization/amputation for PVD. No history of cardiovascular symptoms or problems. + swelling foot on HCTZ GI: No history of GI symptoms or problems. No history of esophageal varices, recent ascites, or ETOH greater than 2 drinks per day. : No difficulty urinating, nocturia > 1 time per night or hematuria TALENT PARTNER: Negative for abnormal vaginal bleeding, abnormal vaginal [...] TIME: 9:19 AM documented in this encounter [facility] 05-07-2023 Note HNO ID: [id number] Author: Dana Goyal MD Service: ? Author Type: Physician Type: Progress Notes Filed: 05/07/2023 3:11 PM Note Text: [facility] [place] Natalia Shrestha Department of Cardiovascular Medicine SECTION OF INTERVENTIONAL CARDIOLOGY OUTPATIENT VISIT DATE 05/07/2023 OUTPATIENT VISIT TYPE New PRIMARY CARE PHYSICIAN: Collins Andrews ([facility]) [address] [place] [address] REFERRING PHYSICIAN: No referring provider defined for [...] were not included. [facility] [place] Natalia Shrestha Department of Cardiovascular Medicine SECTION OF INTERVENTIONAL CARDIOLOGY OUTPATIENT VISIT DATE 05/07/2023 OUTPATIENT VISIT TYPE New PRIMARY CARE PHYSICIAN: Collins Andrews ([facility]) [address] [place], [place] [id number] REFERRING PHYSICIAN: No referring provider defined for [...] of Cardiovascular Medicine [facility] [place] [facility] Office Office Pager [phone] documented in this encounter [facility] 05-05-2023 Miscellaneous Notes interventional radiologist spoke to patient with her daughter(Jennifer) regarding 05/17/23 surgery with . Will also review on [employer]hart. documented in this encounter [facility] 05-03-2023 Note HNO ID: [id number] Author: Macario Santos DPM Service: ? Author [...] are palpable b (more content not included)... [facility] 05-03-2023 History of Present illness Narrative [...] the hindfoot and midfoot without complication identified. Intensive Care Unit Registered Nurse: SUBHASH Transcribe Date/Time: Apr 23 2023 4:47P... Last CT Foot - Impression Only No resulted procedures found. Last CT Ankle - Impression Only CT ANKLE WO IVCON RIGHT Exam End: 04/22/2023 3:55 PM (Final result) Impression: IMPRESSION: Intact postoperative changes of the right foot and ankle as described. Intensive Care Unit Registered Nurse: SUBHASH Transcribe Date/Time: Apr 22 2023 4:18P... Last MRI Ankle - Impression Only MRI ANKLE WO IVCON RT Exam End: 04/29/2021 11:40 AM (Final result) Impression: IMPRESSION: POSTERIOR TIBIALIS TENOSYNOVITIS. 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 ABNORMAL APPEARANCES OF THE SPRING LIGAMENT AND CALCANEOFIBULAR LIGAMENT. FINDINGS SUGGESTIVE OF MILD PLANTAR FASCIITIS. DIABETIC MUSCLE ATROPHY. Intensive Care Unit Registered Nurse: SUBHASH ... Last MRI Foot - [...] which included preparing to see the patient, [id number] patient care, completing clinical documentation, obtaining and/or reviewing separately obtained history, performing a medically appropriate examination, counseling and educating the patient/family/caregiver, and ordering medications, tests, or procedures. documented in this encounter [facility] 04-22-2023 Note HNO ID: [id number] Author: RT Moisés(Aristides) Service: ? Author Type: [...] RT Moisés(R) April 22, 2023 3:56 PM [facility] 04-22-2023 Note HNO ID: [id number] Author: RT Anup(R) Service: ? Author Type: [...] RT Anup(R) April 22, 2023 2:27 PM [facility] 04-22-2023 Note HNO ID: [id number] Author: Macario Santos DPM Service: ? Author [...] have confirmed an (more content not included)... [facility] 04-22-2023 History of Present illness Narrative [...] the hindfoot and midfoot without complication identified. Intensive Care Unit Registered Nurse: SUBHASH Transcribe Date/Time: Apr 23 2023 4:47P... Last CT Foot - Impression Only No resulted procedures found. Last CT Ankle - Impression Only CT ANKLE WO IVCON RIGHT Exam End: 04/22/2023 3:55 PM (Final result) Impression: IMPRESSION: Intact postoperative changes of the right foot and ankle as described. Intensive Care Unit Registered Nurse: SUBHASH Transcribe Date/Time: Apr 22 2023 4:18P... Last MRI Ankle - Impression Only MRI ANKLE WO IVCON RT Exam End: 04/29/2021 11:40 AM (Final result) Impression: IMPRESSION: POSTERIOR TIBIALIS TENOSYNOVITIS. 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 ABNORMAL APPEARANCES OF THE SPRING LIGAMENT AND CALCANEOFIBULAR LIGAMENT. FINDINGS SUGGESTIVE OF MILD PLANTAR FASCIITIS. DIABETIC MUSCLE ATROPHY. Intensive Care Unit Registered Nurse: SUBHASH ... Last MRI Foot - [...] which included preparing to see the patient, [id number] patient care, completing clinical documentation, obtaining and/or reviewing separately obtained history, performing a medically appropriate examination, counseling and educating the patient/family/caregiver, and ordering medications, tests, or procedures. documented in this encounter [facility] 03-22-2023 Note History & Physical R eviewed: [...] the note. I personally evaluated the patient [id number] Electronic Signatures: Sirena Oconnor (FLASH (Resident)) (Signed 22-Mar-2023 12:37) Authored: History & Physical Reviewed, ERAS, Consent, Note Completion Fang Rodriguez) (Signed 22-Mar-2023 13:06) Authored: Note Completion Co-Signer: History & Physical Reviewed, ERAS, Consent, Note Completion Last Updated: 22-Mar-2023 13:06 by Fang Rodriguez) [facility] 03-22-2023 History and physical note [...] Last Updated: 22-Mar-2023 13:06 by Fang Rodriguez) [facility] 03-22-2023 History and physical note History [...] Fang Rodriguez (FLASH) documented in this encounter [facility] Work Phone: 08-21-2022 Note History [...] the note. I personally evaluated the patient [id number] Electronic Signatures: Darin Myers (FLASH (Resident)) (Signed 21-Aug-2022 11:22) Authored: History & Physical Reviewed, ERAS, Consent, Note Completion Fang Rodriguez) (Signed 21-Aug-2022 12:39) Authored: Note Completion Co-Signer: History & Physical Reviewed, ERAS, Consent, Note Completion Last Updated: 21-Aug-2022 12:39 by Fang Rodriguez) [facility] 08-13-2022 Note History & Physical [...] the note. I personally evaluated the patient [id number] Electronic Signatures: Sirena Oconnor (DPM (Resident)) (Signed 13-Aug-2022 06:59) Authored: History & Physical Reviewed, ERAS, Consent, Note Completion Fang Rodriguez (FLASH) (Signed 13-Aug-2022 07:41) Authored: Note Completion Co-Signer: History & Physical Reviewed, ERAS, Consent, Note Completion Last Updated: 13-Aug-2022 07:41 by Fang Rodriguez (FLASH) [facility] 06-05-2022 Note History & Physical [...] the note. I personally evaluated the patient [id number] Electronic Signatures: Ly Sheikh (DPM (Resident)) (Signed 05-Jun-2022 06:50) Authored: History & Physical Reviewed, ERAS, Consent, Note Completion Fang Rodriguez (FLASH) (Signed 05-Jun-2022 09:32) Authored: Note Completion Co-Signer: History & Physical Reviewed, ERAS, Consent, Note Completion Last Updated: 05-Jun-2022 09:32 by Fang Rodriguez (FLASH) [facility] 05-06-2021 History of Past i llness Narrative Problem Noted Date Resolved Date Difficulty walking 05/06/2021 05/17/2023 diabetes 05/17/2023 Arthritis 05/17/2023 documented as of this encounter (statuses as of 05/20/2023) [facility] History of Past illness Narrative* Problem Noted Date Diagnosed Date Resolved Date Difficulty walking 05/06/2021 3 diabetes 05/17/2023 Arthritis 05/17/2023 documented as of this encounter (statuses as of 05/23/2023) [facility] History of Past illness Narrative* Problem Noted Date Diagnosed Date Resolved Date Difficulty walking 05/06/2021 3 diabetes 05/17/2023 Arthritis 05/17/2023 documented as of this encounter (statuses as of 05/27/2023) [facility] History of Past illness Narrative* Problem Noted Date Diagnosed Date Resolved Date Difficulty walking 05/06/2021 3 diabetes 05/17/2023 Arthritis 05/17/2023 documented as of this encounter (statuses as of 05/28/2023) [facility] History of Past illness Narrative* Problem Noted Date Diagnosed Date Resolved Date Difficulty walking 05/06/2021 3 diabetes 05/17/2023 Arthritis 05/17/2023 documented as of this encounter (statuses as of 06/03/2023) [facility] History of Past illness Narrative* Problem Noted Date Diagnosed Date Resolved Date Difficulty walking 05/06/2021 3 diabetes 05/17/2023 Arthritis 05/17/2023 documented as of this encounter (statuses as of 06/04/2023) [address]22-2021 History of Past illness Narrative* Problem Noted Date Diagnosed Date Resolved Date Difficulty walking 05/06/2021 3 diabetes 05/17/2023 Arthritis 05/17/2023 documented as of this encounter (statuses as of 06/21/2023) [facility] History of Past illness Narrative* Problem Noted Date Diagnosed Date Resolved Date Difficulty walking 05/06/2021 3 diabetes 05/17/2023 Arthritis 05/17/2023 documented as of this encounter (statuses as of 07/03/2023) [facility] History of Past illness Narrative* Problem Noted Date Diagnosed Date Resolved Date Difficulty walking 05/06/2021 3 diabetes 05/17/2023 Arthritis 05/17/2023 documented as of this encounter (statuses as of 07/05/2023) [facility] History of Past illness Narrative* Problem Noted Date Diagnosed Date Resolved Date Difficulty walking 05/06/2021 3 diabetes 05/17/2023 Arthritis 05/17/2023 documented as of this encounter (statuses as of 07/08/2023) [facility] History of Past illness Narrative* Problem Noted Date Diagnosed Date Resolved Date Difficulty walking 05/06/2021 3 diabetes 05/17/2023 Arthritis 05/17/2023 documented as of this encounter (statuses as of 07/21/2023) [facility] History of Past illness Narrative* Problem Noted Date Diagnosed Date Resolved Date Difficulty walking 05/06/2021 3 diabetes 05/17/2023 Arthritis 05/17/2023 documented as of this encounter (statuses as of 07/28/2023) [facility] History of Past illness Narrative* Problem Noted Date Diagnosed Date Resolved Date Difficulty walking 05/06/2021 3 diabetes 05/17/2023 Arthritis 05/17/2023 documented as of this encounter (statuses as of 08/06/2023) [facility] History of Past illness Narrative* Problem Noted Date Diagnosed Date Resolved Date Difficulty walking 05/06/2021 3 diabetes 05/17/2023 Arthritis 05/17/2023 documented as of this encounter (statuses as of 09/06/2023) [facility] History of Past illness Narrative* Problem Noted Date Diagnosed Date Resolved Date Difficulty walking 05/06/2021 3 diabetes 05/17/2023 Arthritis 05/17/2023 documented as of this encounter (statuses as of 09/07/2023) [facility] History of Past illness Narrative* Problem Noted Date Diagnosed Date Resolved Date Difficulty walking 05/06/2021 3 diabetes 05/17/2023 Arthritis 05/17/2023 documented as of this encounter (statuses as of 09/28/2023) [facility] History of Past illness Narrative* Problem Noted Date Diagnosed Date Resolved Date Difficulty walking 05/06/2021 3 diabetes 05/17/2023 Arthritis 05/17/2023 documented as of this encounter (statuses as of 09/30/2023) [facility] History of Past illness Narrative* Problem Noted Date Diagnosed Date Resolved Date Difficulty walking 05/06/2021 3 diabetes 05/17/2023 Arthritis 05/17/2023 documented as of this encounter (statuses as of 10/11/2023) [facility] History of Past illness Narrative* Problem Noted Date Diagnosed Date Resolved Date Difficulty walking 05/06/2021 3 diabetes 05/17/2023 Arthritis 05/17/2023 documented as of this encounter (statuses as of 10/27/2023) [facility] History of Past illness Narrative* Problem Noted Date Diagnosed Date Resolved Date Difficulty walking 05/06/2021 3 diabetes 05/17/2023 Arthritis 05/17/2023 documented as of this encounter (statuses as of 10/27/2023) [facility] History of Past illness Narrative* Problem Noted Date Diagnosed Date Resolved Date Difficulty walking 05/06/2021 3 Diabetic foot ulcer 12/21/2013 11/03/20 23 diabetes 05/17/2023 Arthritis 05/17/2023 documented as of this encounter (statuses as of 12/17/2023) [facility] History of Past illness Narrative* Problem Noted Date Diagnosed Date Resolved Date Difficulty walking 05/06/2021 3 Diabetic foot ulcer 12/21/2013 11/03/20 23 diabetes 05/17/2023 Arthritis 05/17/2023 documented as of this encounter (statuses as of 12/29/2023) [facility] History of Past illness Narrative* Problem Noted Date Diagnosed Date Resolved Date Difficulty walking 05/06/2021 3 Diabetic foot ulcer 12/21/2013 11/03/20 23 diabetes 05/17/2023 Arthritis 05/17/2023 documented as of this encounter (statuses as of 01/11/2024) [facility] History of Past illness Narrative* Problem Noted Date Diagnosed Date Resolved Date Difficulty walking 05/06/2021 3 Diabetic foot ulcer 12/21/2013 11/03/20 23 diabetes 05/17/2023 Arthritis 05/17/2023 documented as of this encounter (statuses as of 01/27/2024) [facility] History of Past illness Narrative* Problem Noted Date Diagnosed Date Resolved Date Difficulty walking 05/06/2021 3 Diabetic foot ulcer 12/21/2013 11/03/20 23 diabetes 05/17/2023 Arthritis 05/17/2023 documented as of this encounter (statuses as of 03/01/2024) [facility] Charcot's joint of right ankle- [...] ankle joint, right documented in this encounter [facility]* Diagnosis Charcot ankle, right- Primary Osteonecrosis (HCC) Aseptic necrosis of bone, site unspecified Charcot ankle, right Retained orthopedic hardware Other postprocedural status Deformity of ankle joint, right documented in this encounter [facility] note* Diagnosis PAD (peripheral artery disease) [...] ankle joint, right documented in this encounter [facility]* Diagnosis Pre-op exam- Primary Preoperative [...] ankle joint, right documented in this encounter [facility]* Diagnosis Preoperative cardiovascular examination Pre-operative cardiovascular examination Osteonecrosis (HCC) Aseptic necrosis of bone, site unspecified Charcot ankle, right Retained orthopedic hardware Other postprocedural status Deformity of ankle joint, right documented in this encounter [facility]* Diagnosis Charcot ankle, right- Primary documented in this encounter [facility]* Diagnosis Charcot ankle, right- Primary Arthritis Arthropathy, unspecified, site unspecified documented in this encounter [facility]* Diagnosis Charcot ankle, right- Primary documented in this encounter [facility]* Diagnosis Charcot ankle, right [facility]* Diagnosis Charcot ankle, right documented [facility] this encounter [facility]* Diagnosis Disorder of bone- Primary Disorder of bone and cartilage, unspecified Charcot ankle, right documented in this encounter [facility] note* Diagnosis Charcot ankle, right documented in this encounter [facility] note* Diagnosis Disease of bone- Primary Disorder of bone and cartilage, unspecified documented in this encounter 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 note* Diagnosis Post-op pain Other acute postoperative pain documented in this encounter [facility] note* Diagnosis Subluxation of right ankle joint, initial encounter Presence of other specified devices Valgus deformity, not elsewhere classified, right ankle Subluxation of right ankle joint, subsequent encounter Subluxation of left ankle joint, subsequent encounter Hyperlipidemia, unspecified Type 2 diabetes mellitus with diabetic peripheral angiopathy without gangrene ([facility]) Unspecified asthma, uncomplicated Type 2 diabetes mellitus with diabetic polyneuropathy ([facility]) Depression, unspecified Irritable bowel syndrome without diarrhea Hypothyroidism, unspecified Unspecified osteoarthritis, unspecified site Unspecified visual loss Unspecified hearing loss, unspecified ear Personal history of nicotine dependence [facility] (current) use of 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 drugs documented in this encounter [facility] Work Phone: Evaluation note* Diagnosis Post-op pain Other acute postoperative pain documented in this encounter [facility] note* Diagnosis Charcot ankle, right documented in this encounter [facility] note* Diagnosis Charcot ankle, right documented in this encounter [facility] note* Diagnosis Charcot ankle, right documented in this encounter [facility] noteNo assessment information availableL[facility] Work Phone: Reason for referral (narrative)* Diagnostic Procedure Only (Routine) - Authorized Specialty Diagnoses / Procedures Referred By Perla lyon Referred To Contact XR IMAGING Diagnoses Leg abscess Procedures XR TIBIA FIBULA 2V AP/LAT LEFT RADIOLOGIC EXAMINATION TIBIA & FIBULA 2 VIEWS Macario Santos DPM [address] [place] [address] Xr Imaging Referral ID Status Reason Start Date Expiration Date Visits Requested Visits Authorized [id number] Authorized Auto-Generat ed Referral 04/20/2023 05/19/2024 1 1 * Diagnostic Procedure Only (Routine) - Authorized Specialty Diagnoses / Procedures Referred By Contac t Referred To Contact XR IMAGING Diagnoses Charcot's joint of right ankle Procedures XR ANKLE GENERAL 3V AP/LAT/OBL RIGHT RADEX ANKLE COMPLETE MINIMUM 3 VIEWS Macario Santos DPM [address] [place] [address] Xr Imaging Referral ID Status Reason Start Date Expiration Date Visits Requested Visits Authorized [id number] Authorized Auto-Generat ed Referral 04/20/2023 05/19/2024 1 1 [facility] for referral (narrative)* Diagnostic Procedure Only (Routine) - Authorized Specialty Diagnoses / Procedures Referred By Contac t Referred To Contact MOLECULAR & FUNCTIONAL IMAGING Diagnoses Preoperative cardiovascular examination Procedures NM CARDIAC PERF STRESS/PHARM MYOCARDIAL [place] [address] [place] [address] Molecular & Functional Imaging [address] [place] [address] Referral ID Status Reason Start Date Expiration Date Visits Requested Visits Authorized [id number] Authorized Auto-Generat ed Referral 05/07/2023 06/05/2024 1 1 * Outpatient Procedure (Routine) - Authorized Specialty Diagnoses / Procedures Referred By Contac t Referred To Contact [facility] Diagnoses PAD (peripheral artery disease) (HCC) Procedures US LEG ARTERIAL PERIPH [facility] DUP-SCAN LXTR ART/ARTL [place] [address] [place] [address] [facility] [address] [place] [address] Referral ID Status Reason Start Date Expiration Date Visits Requested Visits Authorized [id number] Authorized Auto-Generat ed Referral 05/07/2023 05/06/2024 1 1 * Outpatient Procedure (Routine) - Authorized Specialty Diagnoses / Procedures Referred By Contac t Referred To Contact [facility] Diagnoses PAD (peripheral artery disease) (HCC) Procedures PVR LEG [facility] LAB NON-INVASIVE PHYSIOLOGIC STUDY EXTREMITY 3 [facility] [place] [address] [place] [address] [facility] [address] [place] [address] Referral ID Status Reason Start Date Expiration Date Visits Requested Visits Authorized [id number] Authorized Auto-Generat ed Referral 05/07/2023 05/06/2024 1 1 [facility] for referral (narrative)* Diagnostic Procedure Only (Routine) - Closed Specialty Diagnoses / Procedures Referred By Contac t Referred To Contact MOLECULAR & FUNCTIONAL IMAGING Diagnoses Preoperative cardiovascular examination Procedures NM CARDIAC PERF STRESS/PHARM MYOCARDIAL [place] [address] [place] [address] Molecular [facility] [address] [place] [address] Referral ID Status Reason Start Date Expiration Date V isits Requested Visits Authorized [id number] Closed Auto-Generate d Referral 05/07/2023 06/05/2024 1 1 [facility] for referral (narrative)* Diagnostic Procedure Only (Routine) - Authorized Specialty Diagnoses / Procedures Referred By Contac t Referred To Contact XR IMAGING Diagnoses Charcot ankle, right Procedures XR ANKLE GENERAL 3V AP/LAT/OBL RIGHT RADEX ANKLE COMPLETE MINIMUM 3 [place]IEWS Macario Santos DPM [address] [place] [address] Xr Imaging Referral ID Status Reason Start Date Expiration Date Visits Requested Visits Authorized [id number] Authorized Auto-Generat ed Referral 06/04/2023 07/03/2024 1 1 [facility] for referral (narrative)* Diagnostic Procedure Only (Routine) - Authorized Specialty Diagnoses / Procedures Referred By Contac t Referred To Contact XR IMAGING Diagnoses Disease of bone Procedures XR ANKLE GENERAL 3V AP/LAT/OBL RIGHT RADEX ANKLE COMPLETE MINIMUM 3 VIEWS Macario Santos DPM [address] [place] [phone] Xr Imaging [facility] Referral ID Status Reason Start Date Expiration Date Visits Requested Visits Authorized [id number] Authorized Auto-Generat ed Referral 07/28/2023 08/26/2024 1 1 [facility] for referral (narrative)* Diagnostic Procedure Only (Routine) - Pending Review Specialty Diagnoses / Procedures Referred By Contac t Referred To Contact XR IMAGING Diagnoses Diabetes mellitus due to underlying condition with diabetic autonomic neuropathy, with long-term current use of insulin (HCC) Procedures XR FOOT GENERAL 3V AP/LAT/OBL BILATERAL RADEX FOOT COMPLETE MINIMUM 3 VIEWS Macario Santos DPM [address] [place] [phone] [place] [address] Referral ID Status Reason Start Date Expiration Date Visits Requested Visits Authorized [id number] Pending Review Auto-Generat ed Referral 10/05/2024 1 1 * Diagnostic Procedure Only (Routine) - Closed Specialty Diagnoses / Procedures Referred By Contac t Referred To Contact XR IMAGING Diagnoses Diabetes mellitus due to underlying condition with diabetic autonomic neuropathy, with long-term current use of insulin (HCC) Procedures XR ANKLE GENERAL 3V AP/LAT/OBL RIGHT RADEX ANKLE COMPLETE MINIMUM 3 VIEWS Macario Santos DPM [address] [place] [address] [place] [address] Referral ID Status Reason Start Date Expiration Date V isits Requested Visits Authorized [id number] Closed Auto-Generate d Referral 08/30/2023 09/28/2024 1 1 [facility] for visit Narrative* Diagnostic Procedure Only (Routine) - Closed Specialty Diagnoses / Procedures Referred By Perla lyon Referred To Contact XR IMAGING Diagnoses Charcot ankle, right Procedures XR ANKLE GENERAL 3V AP/LAT/OBL RIGHT RADEX ANKLE COMPLETE MINIMUM 3 VIEWS Macario Santos DPM [address] [place] [phone] [place] [address] Referral ID Status Reason Start Date Expiration Date V isits Requested Visits Authorized [id number] Closed Auto-Generate d Referral 07/08/2023 07/06/2024 1 1 [facility] Summary Purpose Family History No Family History [...] EXTREMITY W/O CONTRAST MATERIAL Macario Santos DPM [address] [place] [address] Ct Imaging Referral ID Status Reason Start Date Expiration Date V isits Requested Visits Authorized [id number] Closed Auto-Generate d Referral 04/22/2023 05/21/2024 1 1 Specialty Diagnoses / Procedures Referred By Perla lyon Referred To Contact Cardiology Diagnoses Charcot ankle, right Procedures CONSULT TO CARDIOLOGY Macario Santos DPM [address] [place] [address] [place] [address] [place] [id number] Referral ID Status Reason Start Date Expiration Date Visits Requested Visits Authorized [id number] Ref Not Required PCP Requested Referral 05/05/2023 05/04/2024 1 1 Specialty Diagnoses / Procedures Referred By Contac t Referred To Contact MR IMAGING Diagnoses Disorder of bone Procedures MRI ANKLE WO IVCON LEFT MRI ANY JT LOWER EXTREM W/O CONTRAST MATRL Macario Santos DPM [address] [place] [phone] [facility] [place] [address] Referral ID Status Reason Start Date Expiration Date Visits Requested Visits Authorized [id number] Authorized Auto-Generat ed Referral 07/02/2023 07/31/2024 1 1 Specialty Diagnoses / Procedures Referred By Contac t Referred To Contact XR IMAGING Diagnoses Disorder of bone Procedures XR ANKLE GENERAL 3V AP/LAT/OBL LEFT RADEX ANKLE COMPLETE MINIMUM 3 VIEWS Macario Santos DPM [address] [place] [phone] X[facility] [place] [address] Referral ID Status Reason Start Date Expiration Date Visits Requested Visits Authorized [id number] Pending Review Auto-Generat ed Referral 07/02/2023 07/31/2024 1 1 Additional Source Comments INFORMATION SOURCE (unrecogn ized section and content) DATE CREATED AUTHOR 05/05/2018 [facility] DATE CREATED AUTHOR AUTHOR'S ORGANIZ ATION 02/23/2020 [facility] DATE CREATED AUTHOR AUTHOR'S ORGANIZ ATION 02/11/2021 [facility] DATE CREATED AUTHOR AUTHOR'S ORGANIZ ATION 03/29/2023 [facility] DATE CREATED AUTHOR AUTHOR'S ORGANIZ ATION 07/28/2023 [facility] DATE CREATED AUTHOR AUTHOR'S ORGANIZ ATION 12/07/2023 [facility] DATE CREATED AUTHOR AUTHOR'S ORGANIZ ATION 01/18/2024 [facility] DATE CREATED AUTHOR AUTHOR'S ORGANIZ ATION 03/18/2024 [facility] DATE CREATED AUTHOR AUTHOR'S ORGANIZ ATION 03/18/2024 [facility] Source Comments (unrecognize d section and content) In the event this informatio n is protected by the Federal Confidentiality of Alcohol and Drug Abuse Patient Records regulations: The Federal rules restrict any use of the information to criminally investigate or prosecute any alcohol or drug abuse patient.[facility] HealthIn the event this information is protected by the Federal Confidentiality of Alcohol and Drug Abuse Patient Records regulations: The Federal rules restrict any use of the information to criminally investigate or prosecute any alcohol or drug abuse patient.[facility] HealthIn the event this information is protected by the Federal Confidentiality of Alcohol and Drug Abuse Patient Records regulations: The Federal rules restrict any use of the information to criminally investigate or prosecute any alcohol or drug abuse patient.[facility] HealthIn the event this information is protected by the Federal Confidentiality of Alcohol and Drug Abuse Patient Records regulations: The Federal rules restrict any use of the information to criminally investigate or prosecute any alcohol or drug abuse patient.[facility] HealthIn the event this information is protected by the Federal Confidentiality of Alcohol and Drug Abuse Patient Records regulations: The Federal rules restrict any use of the information to criminally investigate or prosecute any alcohol or drug abuse patient.[facility] HealthIn the event this information is protected by the Federal Confidentiality of Alcohol and Drug Abuse Patient Records regulations: The Federal rules restrict any use of the information to criminally investigate or prosecute any alcohol or drug abuse patient.[facility] HealthIn the event this information is protected by the Federal Confidentiality of Alcohol and Drug Abuse Patient Records regulations: The Federal rules restrict any use of the information to criminally investigate or prosecute any alcohol or drug abuse patient.[facility] HealthIn the event this information is protected by the Federal Confidentiality of Alcohol and Drug Abuse Patient Records regulations: The Federal rules restrict any use of the information to criminally investigate or prosecute any alcohol or drug abuse patient.[facility] HealthIn the event this information is protected by the Federal Confidentiality of Alcohol and Drug Abuse Patient Records regulations: The Federal rules restrict any use of the information to criminally investigate or prosecute any alcohol or drug abuse patient.[facility] HealthIn the event this information is protected by the Federal Confidentiality of Alcohol and Drug Abuse Patient Records regulations: The Federal rules restrict any use of the information to criminally investigate or prosecute any alcohol or drug abuse patient.[facility] HealthIn the event this information is protected by the Federal Confidentiality of Alcohol and Drug Abuse Patient Records regulations: The Federal rules restrict any use of the information to criminally investigate or prosecute any alcohol or drug abuse patient.[facility] HealthIn the event this information is protected by the Federal Confidentiality of Alcohol and Drug Abuse Patient Records regulations: The Federal rules restrict any use of the information to criminally investigate or prosecute any alcohol or drug abuse patient.[facility] HealthIn the event this information is protected by the Federal Confidentiality of Alcohol and Drug Abuse Patient Records regulations: The Federal rules restrict any use of the information to criminally investigate or prosecute any alcohol or drug abuse patient.[facility] HealthIn the event this information is protected by the Federal Confidentiality of Alcohol and Drug Abuse Patient Records regulations: The Federal rules restrict any use of the information to criminally investigate or prosecute any alcohol or drug abuse patient.[facility] HealthIn the event this information is protected by the Federal Confidentiality of Alcohol and Drug Abuse Patient Records regulations: The Federal rules restrict any use of the information to criminally investigate or prosecute any alcohol or drug abuse patient.[facility] HealthIn the event this information is protected by the Federal Confidentiality of Alcohol and Drug Abuse Patient Records regulations: The Federal rules restrict any use of the information to criminally investigate or prosecute any alcohol or drug abuse patient.[facility] HealthIn the event this information is protected by the Federal Confidentiality of Alcohol and Drug Abuse Patient Records regulations: The Federal rules restrict any use of the information to criminally investigate or prosecute any alcohol or drug abuse patient.[facility] HealthIn the event this information is protected by the Federal Confidentiality of Alcohol and Drug Abuse Patient Records regulations: The Federal rules restrict any use of the information to criminally investigate or prosecute any alcohol or drug abuse patient.[facility] HealthIn the event this information is protected by the Federal Confidentiality of Alcohol and Drug Abuse Patient Records regulations: The Federal rules restrict any use of the information to criminally investigate or prosecute any alcohol or drug abuse patient.[facility] HealthIn the event this information is protected by the Federal Confidentiality of Alcohol and Drug Abuse Patient Records regulations: The Federal rules restrict any use of the information to criminally investigate or prosecute any alcohol or drug abuse patient.[facility] HealthIn the event this information is protected by the Federal Confidentiality of Alcohol and Drug Abuse Patient Records regulations: The Federal rules restrict any use of the information to criminally investigate or prosecute any alcohol or drug abuse patient.[facility] HealthIn the event this information is protected by the Federal Confidentiality of Alcohol and Drug Abuse Patient Records regulations: The Federal rules restrict any use of the information to criminally investigate or prosecute any alcohol or drug abuse patient.[facility] HealthIn the event this information is protected by the Federal Confidentiality of Alcohol and Drug Abuse Patient Records regulations: The Federal rules restrict any use of the information to criminally investigate or prosecute any alcohol or drug abuse patient.[facility] HealthIn the event this information is protected by the Federal Confidentiality of Alcohol and Drug Abuse Patient Records regulations: The Federal rules restrict any use of the information to criminally investigate or prosecute any alcohol or drug abuse patient.[facility] HealthIn the event this information is protected by the Federal Confidentiality of Alcohol and Drug Abuse Patient Records regulations: The Federal rules restrict any use of the information to criminally investigate or prosecute any alcohol or drug abuse patient.[facility] HealthIn the event this information is protected by the Federal Confidentiality of Alcohol and Drug Abuse Patient Records regulations: The Federal rules restrict any use of the information to criminally investigate or prosecute any alcohol or drug abuse patient.[facility] HealthIn the event this information is protected by the Federal Confidentiality of Alcohol and Drug Abuse Patient Records regulations: The Federal rules restrict any use of the information to criminally investigate or prosecute any alcohol or drug abuse patient.[facility] HealthIn the event this information is protected by the Federal Confidentiality of Alcohol and Drug Abuse Patient Records regulations: The Federal rules restrict any use of the information to criminally investigate or prosecute any alcohol or drug abuse patient.[facility] HealthIn the event this information is protected by the Federal Confidentiality of Alcohol and Drug Abuse Patient Records regulations: The Federal rules restrict any use of the information to criminally investigate or prosecute any alcohol or drug abuse patient.[facility] HealthIn the event this information is protected by the Federal Confidentiality of Alcohol and Drug Abuse Patient Records regulations: The Federal rules restrict any use of the information to criminally investigate or prosecute any alcohol or drug abuse patient.[facility] HealthIn the event this information is protected by the Federal Confidentiality of Alcohol and Drug Abuse Patient Records regulations: The Federal rules restrict any use of the information to criminally investigate or prosecute any alcohol or drug abuse patient.[facility] HealthIn the event this information is protected by the Federal Confidentiality of Alcohol and Drug Abuse Patient Records regulations: The Federal rules restrict any use of the information to criminally investigate or prosecute any alcohol or drug abuse patient.[facility] HealthIn the event this information is protected by the Federal Confidentiality of Alcohol and Drug Abuse Patient Records regulations: The Federal rules restrict any use of the information to criminally investigate or prosecute any alcohol or drug abuse patient.[facility] HealthIn the event this information is protected by the Federal Confidentiality of Alcohol and Drug Abuse Patient Records regulations: The Federal rules restrict any use of the information to criminally investigate or prosecute any alcohol or drug abuse patient.[facility] HealthIn the event this information is protected by the Federal Confidentiality of Alcohol and Drug Abuse Patient Records regulations: The Federal rules restrict any use of the information to criminally investigate or prosecute any alcohol or drug abuse patient.[facility] Teams (unrecognized sec tion and content) Water [employer] Relationship Specialty Start Date End Date Collins Savage Jr., DO PCP - General Family Medicine 12/21/13 Water [employer] Operator Relationship Specialty Start Date End Date Collins Savage Jr., DO PCP - General Family Medicine 12/21/13 Water Gas Operator Relationship Specialty Start Date End Date Collins Savage Jr., DO PCP - General Family Medicine 12/21/13 Water Gas Operator Relationship Specialty Start Date End Date Collins Savage Jr., DO PCP - General Family Medicine 12/21/13 Water Gas Operator Relationship Specialty Start Date End Date Collins Savage Jr., DO PCP - General Family Medicine 12/21/13 Water Gas Operator Relationship Specialty Start Date End Date Collins Savage Jr., DO PCP - General Family Medicine 12/21/13 Water Gas Operator Relationship Specialty Start Date End Date Collins Andrews MD [address] [place] [id number] PCP - General Internal Medicine 05/06/23 Water Gas Operator Relationship Specialty Start Date End Date Collins Andrews MD [address] [place] [id number] PCP - General Internal Medicine 05/06/23 Water Gas Operator Relationship Specialty Start Date End Date Collins Andrews MD [address] [place] [address] [id number] PCP - General Internal Medicine 05/06/23 Water Gas Operator Relationship Specialty Start Date End Date Collins Andrews MD [address] [place] [address]512 PCP - General Internal Medicine 05/06/23 Water Gas Operator Relationship Specialty Start Date End Date Collins Andrews MD [address] [place] [address] 17192 PCP - General Internal Medicine 05/06/23 Water Gas Operator Relationship Specialty Start Date End Date Collins Andrews MD [address] [place] [address] [id number] PCP - General Internal Medicine 05/06/23 Water Gas Operator Relationship Specialty Start Date End Date Collins Andrews MD [address] [place] [id number] PCP - General Internal Medicine 05/06/23 Water Gas Operator Relationship Specialty Start Date End Date Collins Andrews MD [address] [place] [address] 46043 PCP - General Internal Medicine 05/06/23 Water Gas Operator Relationship Specialty Start Date End Date Collins Andrews MD [address] [place] [address] [phone] PCP - General Internal Medicine 05/06/23 Water Gas Operator Relationship Specialty Start Date End Date Collins Andrews MD [address] [place] [address] 17156 PCP - General Internal Medicine 05/06/23 Water Gas Operator Relationship Specialty Start Date End Date Collins Andrews MD [address] [place] [address] [id number] PCP - General Internal Medicine 05/06/23 Water Gas Operator Relationship Specialty Start Date End Date Collins Andrews MD [address] [place] [address] PCP - General Internal Medicine 05/06/23 Water Gas Operator Relationship Specialty Start Date End Date Collins Andrews MD [address] [place] [id number] PCP - General Internal Medicine 05/06/23 Water Gas Operator Relationship Specialty Start Date End Date Collins Andrews MD [address] [place] [id number] PCP - General Internal Medicine 05/06/23 Water Gas Operator Relationship Specialty Start Date End Date Collins Andrews MD [address] [place] [id number] PCP - General 02/13/21 Water Gas Operator Relationship Specialty Start Date End Date Collins Andrews MD PCP - General Internal Medicine 05/06/23 Water Gas Operator Relationship Specialty Start Date End Date Collins Andrews MD PCP - General Internal 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 [facility]. provides no warranty or guarantee of the accuracy or completeness of information in this document.
== END 2024-06-21 12:18 | disposition home or self-care (01) ==
LOC: RAD 12:20
PROVIDERS: Visit Provider Podiatrist Foot & Ankle Surgery
DX: M79.671 Pain in right foot (principal); A52.16 Charcot's arthropathy (tabetic)
CPT/HCPCS: 73630; 73700

== ENCOUNTER 2024-08-09 10:23 | Outpatient (OUT) | payer MEDICARE, MEDICAID, SELFPAY ==
--- NOTE | 2024-08-09 | XR_ITS ---
The [address] [address] Patient Name: BILLY SEXTON MRN: [id number] date: 1960 Sex: F Assigned Patient Location: Current Patient Location: Accession/Order Number: [id number] Exam Date: 08/09/2024 10:25 Report Date: 08/10/2024 06:55 At the request of: BROOKS GONZALES Procedure: XR ankle RT min 3V PROCEDURE: XR ankle RT min 3V, XR foot RT min 3V HISTORY: RIGHT ANKLE PAIN ; right foot pain COMPARISON: XR right ankle and foot 05/23/2024 FINDINGS: BONES:Mechanical fusion of the ankle joint and hindfoot via intramedullary jennifer and locking screws. The medullary jennifer protrudes through the plantar surface of the calcaneus; unchanged. Metallic plate traversing the plantar aspect of the midfoot with fracture of the 2 anterior most screws. Multiple remnant fractured screw fragments within the midfoot. Prior resection of the lateral malleolus. Mechanical fusion of the first toe interphalangeal joint via a single lag screw. Remote fracture and healing of the 5th metatarsal. Prior calcaneal osteotomy. SOFT TISSUES:No visible soft tissue swelling. EFFUSION:None visible. OTHER: Negative. XR/XR ankle RT min 3V IMPRESSION: 1. Prior surgical changes without new hardware fracture or change in alignment. Electronically authenticated by: JOHN RAUSCH Date: 08/10/2024 06:55
--- NOTE | 2024-08-09 | XR_ITS ---
[address] [address] Patient Name: BILLY SEXTON MRN: [id number] date: 1960 Sex: F Assigned Patient Location: Current Patient Location: Accession/Order Number: [id number] Exam Date: 08/09/2024 10:25 Report Date: 08/10/2024 06:55 At the request of: BROOKS GONZALES Procedure: XR foot RT min 3V PROCEDURE: XR ankle RT min 3V, XR foot RT min 3V HISTORY: RIGHT ANKLE PAIN ; right foot pain COMPARISON: XR right ankle and foot 05/23/2024 FINDINGS: BONES:Mechanical fusion of the ankle joint and hindfoot via intramedullary jennifer and locking screws. The medullary jennifer protrudes through the plantar surface of the calcaneus; unchanged. Metallic plate traversing the plantar aspect of the midfoot with fracture of the 2 anterior most screws. Multiple remnant fractured screw fragments within the midfoot. Prior resection of the lateral malleolus. Mechanical fusion of the first toe interphalangeal joint via a single lag screw. Remote fracture and healing of the 5th metatarsal. Prior calcaneal osteotomy. SOFT TISSUES:No visible soft tissue swelling. EFFUSION:None visible. OTHER: Negative. XR/XR foot RT min 3V IMPRESSION: 1. Prior surgical changes without new hardware fracture or change in alignment. Electronically authenticated by: JOHN RAUSCH Date: 08/10/2024 06:55
== END 2024-08-09 10:24 | disposition home or self-care (01) ==
LOC: EC 10:23
PROVIDERS: Visit Provider Podiatrist Foot & Ankle Surgery
DX: M25.571 Pain in right ankle and joints of right foot (principal); M79.671 Pain in right foot; M24.671 Ankylosis, right ankle; Z98.890 Other specified postprocedural states
CPT/HCPCS: 73610; 73630

== ENCOUNTER 2024-09-06 10:04 | Outpatient (OUT) | payer MEDICARE, MEDICAID, SELFPAY ==
--- NOTE | 2024-09-06 | XR_ITS ---
The [address] [address] Patient Name: BILLY SEXTON MRN: [id number] date: 1960 Sex: F Assigned Patient Location: [facility] Current Patient Location: RAD Accession/Order Number: [id number] Exam Date: 09/06/2024 10:11 Report Date: 09/10/2024 07:16 At the request of: BROOKS GONZALES Procedure: XR ankle RT min 3V PROCEDURE: XR foot RT min 3V, XR ankle RT min 3V HISTORY: RIGHT FOOT PAIN COMPARISON: None. FINDINGS: BONES:Stable mechanical fusion of the ankle joint and hindfoot via intramedullary jennifer and locking screws. Grossly stable extension of the jennifer below the plantar surface of the calcaneus. Stable plantar plate along the medial midfoot with fracture of the anterior most screw. Numerous remnant screw fragments within the midfoot and hindfoot. Stable single screw fusion of the first toe interphalangeal joint. Old healed fracture of 5th metatarsal. SOFT TISSUES:Soft tissue swelling surrounding the ankle and proximal foot. Prior resection of the lateral malleolus. EFFUSION:None visible. OTHER: Negative. XR/XR ankle RT min 3V IMPRESSION: 1. Stable surgical changes and known fractured screw and fractured screw remnants. 2. No new findings. Electronically authenticated by: JOHN RAUSCH Date: 09/10/2024 07:16
--- NOTE | 2024-09-06 | XR_ITS ---
The [address] [address] Patient Name: BILLY SEXTON MRN: [id number] date: 1960 Sex: F Assigned Patient Location: [facility] Current Patient Location: RAD Accession/Order Number: [id number] Exam Date: 09/06/2024 10:10 Report Date: 09/10/2024 07:16 At the request of: BROOKS GONZALES Procedure: XR foot RT min 3V PROCEDURE: XR foot RT min 3V, XR ankle RT min 3V HISTORY: RIGHT FOOT PAIN COMPARISON: None. FINDINGS: BONES:Stable mechanical fusion of the ankle joint and hindfoot via intramedullary jennifer and locking screws. Grossly stable extension of the jennifer below the plantar surface of the calcaneus. Stable plantar plate along the medial midfoot with fracture of the anterior most screw. Numerous remnant screw fragments within the midfoot and hindfoot. Stable single screw fusion of the first toe interphalangeal joint. Old healed fracture of 5th metatarsal. SOFT TISSUES:Soft tissue swelling surrounding the ankle and proximal foot. Prior resection of the lateral malleolus. EFFUSION:None visible. OTHER: Negative. XR/XR foot RT min 3V IMPRESSION: 1. Stable surgical changes and known fractured screw and fractured screw remnants. 2. No new findings. Electronically authenticated by: JONH RAUSCH Date: 09/10/2024 07:16
--- OUTSIDE RECORDS SUMMARY | 2024-09-06 10:11 | XMS_ITS | CCD ---
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 Fang Santos Attending U navailable Razzante, Dr. Fang Santos Referring U navailable Debs, Dr. Collins Orellana Primary Care Unavaila ble Razzante, Dr. Fang Santos Admitting U navailable Razzante, Dr. Fang Santos Attending U navailable Giulianazarudy, Dr. Fang Santos Referring U navailable Debs, Dr. Collins Orellana Primary Care Unavaila ble Razzantrebecca, Dr. Fang Santos Admitting U navailable Razzante, Dr. Fang Santos Attending U navailable Debs, Dr. Collins Orellana Primary Care Unavaila ble Razzantrebecca, Dr. Fang Santos Attending U navailable Debs, Dr. Collins Orellana Primary Care Unavaila ble Razzantrebecca, Dr. Fang Santos Attending U navailable Debs, Dr. Collins Orellana Primary Care Unavaila ble Razzantrebecca, Dr. Fang Santos Attending U navailable Debs, Dr. Collins Orellana Primary Care Unavaila ble Razzantrebecca, Dr. Fang Santos Attending U navailable Jennifer, Dr. Fang Santos Referring U navailable Debs, Dr. Collins Orellana Primary Care Unavaila ble Razzantrebecca, Dr. Fang Santos Admitting U navailable Razzante, [...] ilable DEBS, COLLINS E Primary Care Unavailable CLOCARLY, MACARIO VENCESR Referring Unava ilable DEBS, COLLINS E Primary Care Unavailable ANA LILIA, MACARIO VENCESR Referring Unava ilable CLOMACARIO CARROLLR Attending Unava ilable DEBS, COLLINS E Primary Care Unavailable GOYAL, DANA Referring Unavailable DEBS, COLLINS E Primary Care Unavailable GOYAL, DANA Referring Unavailable DEBS, COLLINS E Primary Care Unavailable CLOUGHERTYMACARIOR Attending Unava ilable CLOJALENERTYMACARIOR Referring Unava ilable DEBS, COLLINS E Primary Care Unavailable GOYAL, DANA Referring Unavailable DEBS, COLLINS E Primary Care Unavailable GOYAL, DANA Referring Unavailable DEBS, COLLINS E Primary Care Unavailable CLOUGHERTY, MACARIO VENCESR Attending Unava ilable CLOJALENERTYMACARIOR Referring Unava ilable DEBS, COLLINS E Primary Care Unavailable CLOUGHERTY, MACARIO VENCESR Referring Unava ilable DEBS, COLLINS E Primary Care Unavailable CLOUGHERTY, MACARIO VENCESR Referring Unava ilable DEBS, COLLINS E Primary Care Unavailable CLOUGHERTY, MACARIO VENCESR Attending Unava ilable JULIANA, COLLINS E Primary Care Unavailable Collins Andrews MD Primary Care Provider MACARIO SANTOS Attending Unava ilable CLOUGHERTY, MACARIO VENCESR Admitting Unava ilable COLLINS SAVAGE JR Primary Care Unavaila ble MANAS [employer] Consulting Unavailable COLLINS ANDREWS Primary Care Unavailable CLOUGHERTY, MACARIO VENCESR Referring Unava ilable CLOUGHERTY, MACARIO VENCESR Attending Unava ilable JULIANA, COLLINS E Primary Care Unavailable DEBS, COLLINS E Primary Care Unavailable CLOUGHERTYMACARIOR Attending Unava ilable MACARIO SANTOSR Referring Unava ilable COLLINS SAVAGE JR Primary Care Unavaila ble CLOCARLY, MACARIO VENCESR Referring Unava ilable CLOUGHERTY, MACARIO VENCESR Attending Unava ilable JULIANA, COLLINS E Primary Care Unavailable DEBLake, COLLINS E Primary Care Unavailable CLOUGHERTY, MACARIO VENCESR Referring Unava ilable CLOJALENERTY, MACARIO VENCESR Attending Unava ilable COLLINS ANDREWS E Primary Care Unavailable CLOUGHERTY, MACARIO VENCESR Admitting Unava ilable CLOUGHERTY, SORTO ODELL Attending Unava ilable FLASH Grubbs Attending Provider Zuhair Grubbs Admitting Unavailable Zuhair Grubbs Attending Unavailable Collins Andrews MD Primary Care Provider COLLINS ANDREWS Referring Unavailable COLLINS ANDREWS Primary Care Unavailable COLLINS ANDREWS Primary Care Unavailable COLLINS ANDREWS Primary Care Unavailable COLLINS ANDREWS Primary Care Unavailable COLLINS ANDREWS Referring Unavailable COLLINS ANDREWS Primary Care Unavailable Janette El DO, Michael E Primary Care Provid er Allergies Allergy Classification Reported Allergen(s) Allergy Type Date of Onset Reaction(s) Facility (20 sources) Codeine Drug Allergy 8 GI Upset [facility] 1057 Work Phone: (9 sources) Meperidine Drug Allergy [facility] 1059 Work Phone: (20 sources) Meperidine; Translations: [MEPERIDINE (PF)] Drug Allergy 8 Other: See Comments [facility] (20 sources) Morphine; Translations: [MORPHINE] Drug Allergy 1 Itching [facility] (14 sources) Amoxicillin / Clavulanate; Translations: [AMOXICILLIN-PO T CLAVULANATE] Drug Allergy 3 GI Upset [facility] (14 sources) Doxycycline; Translations: [DOXYCYCLINE] Drug Allergy 3 GI Upset [facility] (2 sources) Codeine; Translations: [CODEINE] Drug Allergy 8 [facility] Repository (2 sources) ALLERGIES NOT ON FILE; Translations: [ALLERGIES NOT ON FILE] Propensity to adverse reactions (disorder) [facility] Repository Medications Current Medications Medication Drug Class(es) Dates [...] for pain for up to 7 days. biotin 10 mg oral capsule (20 sources) Biotin 10,000 mc g cap Take by mouth. Active Biotin CAPS Refi lls: 0 DO Active Biotin CAPS Refi lls: 0 Active Comment on above: Take by mouth. cholecalciferol 0.025 mg oral capsule (20 sources) Vitamin D take 1 capsule by mouth once daily Cholecalciferol, Vitamin D3, 25 mcg (1,000 unit) cap Take 1,000 Units by mouth once daily. Active Cholecalciferol, Vitamin D3, (VITAMIN D) 25 mcg (1,000 unit) cap Take 1,000 Units by mouth once daily. 0 Active Comment on above: Take 1,000 Units by mouth once daily. CINNAMON BARK-CHROMIUM PICOLIN ORAL (20 sources) take 2000 mg by mouth twice daily CINNAMON BARK-CHROMIUM PICOLIN ORAL Take 2,000 mg by mouth twice daily. Active take 2000 mg by mouth twice gina y CINNAMON BARK-CHROMIUM PICOLIN ORAL Take 2,000 mg by mouth twice daily. 0 Active Comment on above: Take 2,000 mg by destiney th twice daily. FLUoxetine 10 mg oral capsule (20 sources) Serotonin Reuptake Inhibitor Start: 07-05-2017 take 1 capsule by mouth once daily FLUoxetine (PROZAC) 10 mg capsule Take 10 mg by mouth once daily. 07/05/2017 Active Start: 07-05-2017 FLUoxetine (VT OZAC) 40 mg capsule Take by mouth. 0 07/05/2017 Active Comment on above: Take by mouth. Take 10 mg by mouth once daily. gabapentin 800 mg oral tablet (20 sources) Anti-epileptic Agent Start: 02-24-2021 take 2 tablets by mouth at bedtime gabapentin (NEURONTIN) 800 mg tablet Indications: neuropathic pain Take 800 mg by mouth. 1 tablet in the morning, 1 tablet in the afternoon, and 2 tablets at bedtime 02/24/2021 Active Start: 02-24-2021 gabapentin 300 mg [...] Active Start: 04-12-2014 take 4 capsules by out twice daily in the evening gabapentin 300 [...] the afternoon, and 2 tablets at bedtime insulin lispro protamin/lispro (HUMALOG MIX 75-25,U-100,INSULN SUBCUTANEOUS) (20 sources) insulin lispro p rotamin/lispro (HUMALOG MIX 75-25,U-100,INSULN SUBCUTANEOUS) Inject 20 Units subcutaneously three times daily with meals. Active insulin lispro p rotamin/lispro (HUMALOG MIX 75-25,U-100,INSULN SUBCUTANEOUS) Inject 20 Units subcutaneously three times daily with meals. 0 Active Comment on above: Inject 20 Units subc utaneously three times daily with meals. INSULIN SYRINGE-NEEDLE U-100 1 mL 29 x 1/2 syrg (20 sources) Start: 10-25-2013 INSULIN SYRINGE-NEEDLE U-100 1 mL 29 x 1/2 syrg 10/25/2013 Active Start: 10-25-2013 INSULIN SYRING E-NEEDLE U-100 1 mL 29 x 1/2 syrg levothyroxine sodium 0.1 mg oral tablet (20 sources) l-Thyroxine Start: 12-11-2013 LEVOTHYROXINE 100 mcg tablet 100 mcg daily before breakfast. 12/11/2013 Active Comment on above: 100 mcg daily before breakfast. omega-3 acid ethyl esters (penitentiary) 1000 mg oral capsule (20 sources) omega-3 acid eth yl esters (LOVAZA) 1 gram capsule Take 1 g by mouth twice daily. Active omega-3 acid eth yl esters (LOVAZA) 1 gram capsule Take by mouth. 0 Active Comment on above: Take by mouth. Take 1 g by mouth tw ice daily. turmeric extract 500 mg oral capsule (20 sources) TURMERIC ORAL Ta ke 500 mg by mouth. Active TURMERIC ORAL Ta ke 500 mg by mouth. 0 Active turmeric ([facility] Comment on above: Take 500 mg by mouth . vit B complex no.12/niacin,B 3, (VITAMIN B COMPLEX NO.12-NIACIN ORAL) (20 sources) vit B complex no.12/niacin,B3, (VITAMIN B COMPLEX NO.12-NIACIN ORAL) Take 2,500 mg by mouth. Active vit B complex no .12/niacin,B3, (VITAMIN B COMPLEX NO.12-NIACIN ORAL) Take 2,500 mg by mouth. 0 Active Comment on above: Take 2,500 mg by destiney th. zolpidem tartrate 5 mg oral tablet (20 sources) gamma-Aminobutyric Acid-ergic Agonist Start: 04-24-2014 take 1 tablet by mouth every twenty-four hours as needed zolpidem (AMBIEN) 5 mg tablet Take 1 tablet by mouth at bedtime as needed (for insomnia.). 7 tablet 0 04/24/2014 Active Start: 12-11-2013 End: 11-03-2023 take 1 tablet by mouth once daily at bedtime ZOLPIDEM 10 mg tab Take 10 mg by mouth daily at bedtime. 12/11/2013 11/03/2023 Discontinued Comment on above: Take 10 mg by mouth daily at bedtime. Take 1 tablet by destiney th at bedtime as needed (for insomnia.). Completed/Discontinued Medications Medication Drug Class(es) Dates Sig (Normalized) Sig (Original) acetaminophen 300 mg / HYDROcodone bitartrate 7.5 mg oral tablet (10 sources) Opioid Agonist Start: 04-24-2014 HYDROCODONE-ACETA MINOPHEN 7.5-300 mg tab [id number] 200 actuat albuterol 0.09 mg/actuat metered dose inhaler (20 sources) beta2-Adrenergic Agonist Start: 09-13-2023 take 1-2 puff(s) by mouth every four hours as needed albuterol HFA (PROVENTIL HFA, VENTOLIN HFA) 90 mcg/actuation inhaler inhale 1 to 2 puffs by mouth every 4 hours as needed 0 09/13/2023 Active Start: 02-22-2015 take 2 puff(s) by mo [facility] four times daily as needed Ventolin [...] aspirin 81 mg delayed release oral tablet (16 sources) Platelet Aggregation Inhibitor, Nonsteroidal Anti-inflammatory Drug Start: 05-17-20 End: 11-03-20 23 take 1 tablet by mouth once daily aspirin, enteric coated (ADULT LOW DOSE ASPIRIN) 81 mg EC tablet Take 1 tablet by mouth once daily. 30 tablet 05/17/2023 11/03/2023 Discontinued Comment on above: Take 1 tablet by [facility] once daily. azithromycin 250 mg oral tablet (4 sources) Macrolide Antimicrobial Start: 11-20-19 20 Azithromycin 250 MG Oral Tablet Take 2 tablets today, then 1 tablet daily for 4 days Quantity: 1 Refills: 0 Collins Savage DO Start : 20-Nov-2019 Active 6 Tablet Pack 60 actuat budesonide 0.16 mg/actuat / formoterol fumarate 0.0045 mg/actuat metered dose inhaler (20 sources) Corticosteroid, beta2-Adrenergic Agonist Start: 02-23-20 15 take 2 puff(s) by mouth twice daily [...] oral capsule (14 sources) Cephalosporin Antibacterial Start: 014 End: take 1 capsule by mouth three times daily cephALEXin 500 mg capsule Take 1 capsule by mouth three times daily. 21 capsule 0 04/24/2014 05/12/2023 Discontinued Comment on above: Take 1 capsule by [facility] three times daily. cinnamon bark 500 mg oral capsule (1 source) take 1 capsule by mouth four times daily Cinnamon 500 MG Oral Capsule TAKE 1 CAPSULE 4 TIMES DAILY Refills: 0 Active cyclobenzaprine hydrochloride 10 mg oral tablet (14 sources) Muscle Relaxant Start: 023 End: 023 take 0.5 tablet by mouth three times [...] three times daily. Disability Placard (9 sources) Star t: 05-0 7-20 15 Disability Placard Disability Placard 5 year term Quantity: 1 Refills: 0 Collins Savage DO Start : 21-Mar-2015 Active fenofibrate 145 mg oral tablet (5 sources) Peroxisome Proliferator Receptor alpha Agonist Star t: 10-15 2- 23 take 1 tablet by mouth once fenofibrate nanocrystallized (TRICOR) 145 mg tablet Take 1 tablet by mouth every afternoon. 0 10/26/2023 Active Comment on above: Take 1 tablet by destiney th every afternoon. 30 actuat fluticasone furoate 0.2 mg/actuat / vilanterol 0.025 mg/actuat dry powder inhaler (3 sources) Corticosteroid, beta2-Adrenergic Agonist Star t: 02-14 8- 20 take 1 puff(s) by inhalation once daily Breo Ellipta 200-25 MCG/INH Inhalation Aerosol Powder Breath Activated INHALE 1 PUFFS Daily Quantity: 1 Refills: 9 Collins Savage DO Start : 12-Mar-2020 Active 60 Each Pack hydroCHLOROthiazide 25 mg oral tablet (20 sources) Thiazide Diuretic Star t: 05-15 14 take 1 tablet by mouth once daily hydroCHLOROthiazide 25 MG Oral Tablet take 1 tablet by mouth once daily Quantity: 30 Refills: Collins Goldberg DO Start : 01-Jun-2014 Active Comment on [...] suspension (9 sources) Insulin Analog Star t: 04-16- 21 insulin 70-30 aspart protamine-aspart (NOVOLOG MIX 70/30) 100 units/mL injection INJECT 26 UNITS TWICE DAILY SUBCUTANEOUSLY 0 05/08/2021 Active Comment on above: INJECT 26 UNITS TWIC E DAILY SUBCUTANEOUSLY insulin glargine 100 unt/ml injectable solution (20 sources) Insulin Analog Star t: 04-16- 14 inject 70 [IU] by subcutaneous injection once daily Lantus 100 UNIT/ML Subcutaneous Solution INJECT 70 UNITS SUBCUTANEOUSLY DAILY Quantity: 3 Refills: 10 Collins Savage DO Start : 10-May-2014 Active 10 ML Vial Start: 11-20-2013 LANTUS 100 uni t/mL injection Indications: diabetes mellitus 55 Units daily at bedtime. 11/20/2013 Active Start: 11-20-2013 LANTUS 100 uni t/mL injection Indications: diabetes mellitus 70 Units daily at bedtime. Indications: DIABETES MELLITUS 0 11/20/2013 Active Comment on above: 70 Units daily at be dtime. Indications: DIABETES MELLITUS 55 Units daily at be dtime. INSULIN REGULAR, HUMAN (HUMULIN R INJECTION) (10 sources) INSULIN REGULAR, HUMAN (HUMULIN R INJECTION) 20 Units by INJECTION(UNSPECIFIED PARENTERAL ROUTES) route three times daily with meals. 0 Active Comment on above: 20 Units by INJECTIO N(UNSPECIFIED PARENTERAL ROUTES) route three times daily with meals. insulin human, isophane 70 unt/ml / regular insulin, human 30 unt/ml injectable suspension (9 sources) Insulin Start: 014 inject 20 [IU] by subcutaneous injection three times daily, then inject 100 [IU] by subcutaneous injection HumuLIN 70/30 (70-30) 100 UNIT/ML Subcutaneous Suspension Inject 20 units subcutaneously three times daily Quantity: 3 Refills: 10 Collins Savage DO Start : 05-Jul-2014 Active 10 ML Vial meloxicam 15 mg oral tablet (20 sources) Nonsteroidal Anti-inflammatory Drug Start: 024 take 1 tablet by mouth once daily meloxicam (MOBIC) 15 mg tablet Take 1 tablet by mouth once daily 30 tablet 0 11/22/2023 Active Start: 08-05-2023 End: 10-26-2023 take 1 tablet by mouth once daily meloxicam (MOBIC) 15 mg tablet Take 1 tablet by mouth once daily. 30 tablet 2 08/05/2023 10/26/2023 Discontinued Start: 05-13-2021 End: 05-07-2023 take 1 tablet [...] mg by mouth twice daily with meals. Active Comment on above: Take 1,000 mg by destiney th twice daily with meals. QUEtiapine 50 mg oral tablet (9 sources) Atypical Antipsychotic Start: 03-21-20 take 2 tablets by mouth once daily [...] needed for pain. for pain. 35 tablet 10/11/2023 10/25/2023 Discontinued Start: 08-05-2023 End: 09-06-2023 take 1 [...] 50 mg by mouth daily at bedtime. VITAMIN A ORAL (5 sources) VITAMIN A ORAL Take by mouth. 0 Active Comment on above: Take by mouth. VITAMIN K2 ORAL (5 sources) VITAMIN K2 ORAL Take by mouth. 0 Active Comment on above: Take by mouth. Problems Active Problems Problem Classification Problem Date [...] initial encounter] Onset: 08-21-2022 Episodic Diabetes mellitus without complication (15 sources) Type 2 diabetes mellitus; Translations: [Type 2 diabetes mellitus without complications] Onset: 08-10-2022 11-03-2023 Chronic Disorders of lipid metabolism (18 sources) [...] [Vitamin D deficiency, unspecified] Onset: 11-26-2023 Chronic Other acquired deformities (3 sources) Contracture, right ankle; Translations: [Contracture, right ankle] Onset: 01-05-2023 Chronic Other acquired deformities (1 source) Ankle joint deformity; Translations: [Unspecified acquired deformity of right lower leg] Episodic Other aftercare (1 source) alf (current) use of 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 drugs; 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] Onset: 03-22-2023 Episodic Other aftercare (2 sources) alf (current) use of insulin; 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] Onset: 03-17-2023 Episodic Other aftercare (1 source) Other senior living (current) drug therapy; Translations: [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] Onset: 03-17-2023 Episodic Other [...] Chronic Other bone disease and musculoskeletal deformities (4 sources) Avascular necrosis of bone; Translations: [Osteonecrosis, unspecified] Onset: 11-25-2023 11-25-2023 Chronic Other bone disease and musculoskeletal deformities (2 sources) Disorder of bone; Translations: [Disorder of bone, unspecified] 07-02-2023 Episodic Other circulatory disease (9 sources) H/O: hypertension; Translations: [History of hypertension] Episodic Other connective tissue disease (9 sources) Foot pain; Translations: [Neuropathic pain of both feet] Episodic Other connective tissue disease (1 source) Right achilles tendonitis; Translations: [Achilles tendinitis, right leg] 04-29-2021 Episodic Other ear and sense organ disorders [...] Onset: 08-10-2022 Chronic Other nervous system disorders (3 sources) [...] [Osteophyte, right foot] Onset: 01-08-2023 Episodic Other non-traumatic joint disorders (1 source) Chronic ankle pain; Translations: [Pain in right ankle and joints of right foot] 04-29-2021 Episodic Other nutritional; endocrine; and metabolic disorders (9 sources) H/O: diabetes mellitus; Translations: [History of diabetes mellitus] Episodic Other nutritional; endocrine; and metabolic disorders (9 sources) H/O: raised blood lipids; Translations: [History of hyperlipidemia] Episodic Other screening for suspected conditions (not mental disorders or infectious disease) (18 sources) Thyroid function tests abnormal; Translations: [Cancer cervix - screening done] Onset: 08-02-2024 Episodic Other skin disorders (1 source) Hypertrophic [...] [Allergy status to penicillin] Onset: 08-21-2022 Episodic Diabetes mellitus with complications (20 sources) Type II diabetes mellitus uncontrolled; Translations: [Diabetic foot ulcer] Onset: 12-21-2013 Resolved: 11-03-2023 12-21-2013 Chronic Diabetes or abnormal glucose tolerance complicating ; childbirth; or the puerperium (12 sources) Diabetes mellitus of mother, complicating , childbirth, or the puerperium, unspecified as to episode of care or not applicable; Translations: [Diabetes mellitus of mother, complicating , childbirth, or the puerperium, unspecified as to episode of care(648.00)] Resolved: 05-17-2023 12-21-2013 Chronic Osteoarthritis (20 sources) Arthritis; Translations: [Unspecified osteoarthritis, unspecified site] Onset: 05-06-2021 Resolved: 05-17-2023 12-21-2013 Chronic Other acquired deformities (20 sources) Deformity of [...] unspecified leg] Onset: 05-06-2021 05-06-2021 Episodic Other nervous system disorders (10 sources) Difficulty walking; Translations: [Difficulty in walking, not elsewhere classified] Onset: 05-06-2021 Resolved: 05-17-2023 05-06-2021 Chronic Other non-traumatic joint disorders (3 sources) Pain [...] Test Name Value Interpretation Reference Range Facility BI TRANSFER OF OUTSIDE FILMS on 08-10-2024 BI TRANSFER OF OUTSIDE FILMS Outside images for comparison or treatment purposes, not interpreted by Radiologists. [facility] Comment on above: Order Comment: Outsi de images for comparison from [facility] BI MAMMO BILATERAL SCREENING TOMOSYNTHESISon 08-02-2024 BI MAMMO BILATERAL SCREENING TOMOSYNTHESIS Interpreted By: Jose Rafael Mancia, STUDY: BI MAMMO BILATERAL SCREENING TOMOSYNTHESIS; 08/02/2024 11:33 am ACCESSION NUMBER(S): [id number] ORDERING CLINICIAN: COLLINS ANDREWS INDICATION: Screening. History of benign left breast biopsy/duct removal. ,Z12.31 Encounter for screening mammogram for malignant neoplasm of breast COMPARISON: 2021 FINDINGS: 2D and tomosynthesis images were reviewed at 1 mm slice thickness. Density: The breasts are heterogeneously dense, which may obscure small masses. Nodular asymmetries lateral right breast probably superiorly located on the MLO projection and central slightly medial right breast nodule probably inferiorly located on the MLO projection. There is also symmetry more posteriorly and centrally in the right breast on the CC projection. Left breast asymmetry with suggestion of subtle distortion central slight medial left breast on the CC projection probably centrally located on the MLO projection, could be related to sequela postprocedural changes. No definite additional new suspicious masses or calcifications are otherwise identified. IMPRESSION: Bilateral asymmetries as described for which spot compression, exaggerated CC, and true lateral views recommended for further assessment and ultrasound may be obtained as indicated. Central slight medial inferior right breast nodule for which ultrasound recommended. BI-RADS CATEGORY: BI-RADS Category: 0 Incomplete; Need Additional Imaging Evaluation Recommendation: Additional Imaging. Recommended Date: Immediate. Laterality: Bilateral. For any future breast imaging appointments, please call [phone] ([phone]). MACRO: None Signed by: Jose Rafael Mancia 08/10/2024 4:07 PM Dictation workstation: [id number] Abnormal [facility] Comprehensive metabolic 2000 panelon 07-10-2024 Albumin BCP dye [Mass/Vol] 4.7 g/dL Normal 3.4-5.0 [facility] Comment on above: Performed By: #### 2 4323-8 #### ADAM CALDERON ([id number]) [facility] ([facility]) [address] [place] [address] ALP [Catalytic activity/Vol] 42 U/L Normal 33-136 [facility] Comment on above: Performed By: #### 2 4323-8 #### ADAM CALDERON ([id number]) [facility] ([facility]) [address] [place] [address] ALT With P-5'-P [Catalytic activity/Vol] 16 U/L Normal 7-45 [facility] Comment on above: Result Comment: Shaista ents treated with Sulfasalazine may generate falsely decreased results for ALT. Performed By: #### 2 4323-8 #### ADAM CALDERON ([id number]) [facility] ([facility]) [address] [place] [address] Anion gap [Moles/Vol] 13 mmol/L Normal 10-20 [facility] Comment on above: Performed By: #### 2 4323-8 #### ADAM CALDERON ([id number]) [facility] ([facility]) [address] [place] [address] AST With P-5'-P [Catalytic activity/Vol] 14 U/L Normal 9-39 [facility] Comment on above: Performed By: #### 2 4323-8 #### ADAM CALDERON ([id number]) [facility] ([facility]) [address] [place] [address] Bilirubin [Mass/Vol] 0.3 mg/dL Normal 0.0-1.2 [facility] Comment on above: Performed By: #### 2 4323-8 #### ADAM CALDERON ([id number]) [facility] ([facility]) [address] [place] [address] Calcium [Mass/Vol] 10.2 mg/dL Normal 8.6-10.3 [facility] Comment on above: Performed By: #### 2 4323-8 #### ADAM CALDERON ([id number]) [facility] ([facility]) [address] [place] [address] Chloride [Moles/Vol] 102 mmol/L Normal 98-107 [facility] Comment on above: Performed By: #### 2 4323-8 #### ADAM CALDERON ([id number]) [facility] ([facility]) [address] [place] [address] CO2 [Moles/Vol] 28 mmol/L Normal 21-32 [facility] Comment on above: Performed By: #### 2 4323-8 #### ADAM CALDERON ([id number]) [facility] ([facility]) [address] [place] [address] Creatinine [Mass/Vol] 1.05 mg/dL Normal 0.50-1.05 [facility] Comment on above: Performed By: #### 2 4323-8 #### ADAM CALDERON ([id number]) [facility] ([facility]) [address] [place] [address] Glomerular filtration rate/1.73 sq M.predicted 60 mL/min/1.73m*2 Low >60 [facility] Comment on above: Result Comment: Calc ulations of estimated GFR are performed using the 2020 CKD-EPI Study Refit equation without the race variable for the IDMS-Traceable creatinine methods. https://jasn.asnjournals.org/content//ASN.8064252 988 Performed By: #### 2 4323-8 #### ADAM CALDERON ([id number]) [facility] ([facility]) [address] [place] [address] Glucose [Mass/Vol] 125 mg/dL High 74-99 [facility] Comment on above: Performed By: #### 2 432-8 #### ADAM CALDERON ([id number]) [facility] ([facility]) [address] [place] [address] Potassium [Moles/Vol] 4.0 mmol/L Normal 3.5-5.3 [facility] Comment on above: Performed By: #### 2 432-8 #### ADAM CALDERON ([id number]) [facility] ([facility]) [address] [place] [address] Protein [Mass/Vol] 7.6 g/dL Normal 6.4-8.2 [facility] Comment on above: Performed By: #### 2 4323-8 #### ADAM CALDERON ([id number]) [facility] ([facility]) [address] [place] [address] Sodium [Moles/Vol] 139 mmol/L Normal 136-145 [facility] Comment on above: Performed By: #### 2 4323-8 #### ADAM CALDERON ([id number]) [facility] ([facility]) [address] [place] [address] Urea nitrogen [Mass/Vol] 19 mg/dL Normal 6-23 [facility] Comment on above: Performed By: #### 2 4323-8 #### ADAM CALDERON ([id number]) [facility] ([facility]) [address] [place] [address] HbA1c (Bld) [Mass fraction]o n 07-10-2024 Average glucose Estimated from glycated hemoglobin (Bld) [Mass/Vol] 137 mg/dL Normal Not Established [facility] Comment on above: Order Comment: Diagn osis of Foktvwvm-RmrnrgAtd-Scksukgz: < or = 5.6%Increased risk for developing diabetes: 5.7-6.4%Diagnostic of diabetes: > or = 6.5% Performed By: #### 2 4331-1 #### ADAM CALDERON ([id number]) [facility] ([facility]) [address] [place] [address] Hemoglobin A1c/Hemoglobin.to milan 07-10-2024 HbA1c (Bld) [Mass fraction] 6.4 % High see below [facility] Comment on above: Order Comment: Diagn osis of Ueuzbtpp-ZlyuuhMgt-Hcowqufy: < or = 5.6%Increased risk for developing diabetes: 5.7-6.4%Diagnostic of diabetes: > or = 6.5% Performed By: #### 2 4331-1 #### ADAM CALDERON ([id number]) [facility] ([facility]) [address] [place] [address] Thyrotropinon 07-10-2024 TSH Qn 1.63 m[IU]/L Normal 0.44-3.98 [facility] Comment on above: Order Comment: TSH t esting is performed using different testing methodology at [facility] than at other [facility]. Direct result comparisons should only be made within the same method. Performed By: #### 3 016-3 #### ADAM CALDERON ([id number]) [facility] ([facility]) [address] [place] [address] Comprehensive metabolic 2000 panelon 03-13-2024 Albumin BCP dye [Mass/Vol] 4.7 g/dL Normal 3.4-5.0 [facility] Comment on above: Performed By: #### 2 4323-8 #### ADAM CALDERON ([id number]) [facility] ([facility]) [address] [place] [address] ALP [Catalytic activity/Vol] 59 U/L Normal 33-136 [facility] Comment on above: Performed By: #### 2 4323-8 #### ADAM CALDERON ([id number]) [facility] ([facility]) [address] [place] [address] ALT With P-5'-P [Catalytic activity/Vol] 23 U/L Normal 7-45 [facility] Comment on above: Result Comment: Shaista ents treated with Sulfasalazine may generate falsely decreased results for ALT. Performed By: #### 2 4323-8 #### ADAM CALDERON ([id number]) [facility] ([facility]) [address] [place] [address] Anion gap [Moles/Vol] 17 mmol/L Normal 10-20 [facility] Comment on above: Performed By: #### 2 4323-8 #### ADAM CALDERON ([id number]) [facility] ([facility]) [address] [place] [address] AST With P-5'-P [Catalytic activity/Vol] 16 U/L Normal 9-39 [facility] Comment on above: Performed By: #### 2 4323-8 #### ADAM CALDERON ([id number]) [facility] ([facility]) [address] [place] [address] Bilirubin [Mass/Vol] 0.3 mg/dL Normal 0.0-1.2 [facility] Comment on above: Performed By: #### 2 4323-8 #### ADAM CALDERON ([id number]) [facility] ([facility]) [address] [facility] [place] [address] Calcium [Mass/Vol] 10.8 mg/dL High 8.6-10.3 [facility] Comment on above: Performed By: #### 2 4323-8 #### ADAM CALDERON ([id number]) [facility] ([facility]) [address] [place] [address] Chloride [Moles/Vol] 101 mmol/L Normal 98-107 [facility] Comment on above: Performed By: #### 2 4323-8 #### ADAM CALDERON ([id number]) [facility] ([facility]) [address] [place] [address] CO2 [Moles/Vol] 25 mmol/L Normal 21-32 [facility] Comment on above: Performed By: #### 2 4323-8 #### ADAM CALDERON ([id number]) [facility] ([facility]) [address] [place] [address] Creatinine [Mass/Vol] 1.09 mg/dL High 0.50-1.05 [facility] Comment on above: Performed By: #### 2 432-8 #### ADAM CALDERON ([id number]) [facility] ([facility]) [address] [place] [address] Glomerular filtration rate/1.73 sq M.predicted 57 mL/min/1.73m*2 Low >60 [facility] Comment on above: Result Comment: Calc ulations of estimated GFR are performed using the 2020 CKD-EPI Study Refit equation without the race variable for the IDMS-Traceable creatinine methods. https://jasn.asnjournals.org/content/early/ASN.5123298 988 Performed By: #### 2 432-8 #### ADAM ACLDERON ([id number]) [facility] ([facility]) [address] [place] [address] Glucose [Mass/Vol] 178 mg/dL High 74-99 [facility] Comment on above: Performed By: #### 2 432-8 #### ADAM CALDERON ([id number]) [facility] ([facility]) [address] [place] [address] Potassium [Moles/Vol] 4.7 mmol/L Normal 3.5-5.3 [facility] Comment on above: Performed By: #### 2 432-8 #### ADAM CALDERON ([id number]) [facility] ([facility]) [address] [place] [address] Protein [Mass/Vol] 7.4 g/dL Normal 6.4-8.2 [facility] Comment on above: Performed By: #### 2 432-8 #### ADAM CALDERON ([id number]) [facility] ([facility]) [address] [place] [address] Sodium [Moles/Vol] 138 mmol/L Normal 136-145 [facility] Comment on above: Performed By: #### 2 432-8 #### ADAM CALDERON ([id number]) [facility] ([facility]) [address] [place] [address] Urea nitrogen [Mass/Vol] 21 mg/dL Normal 6-23 [facility] Comment on above: Performed By: #### 2 4323-8 #### ADAM CALDERON ([id number]) [facility] ([facility]) [address] [place] [address] HbA1c (Bld) [Mass fraction]o n 03-13-2024 Average [...] Pediatrics: 13-18...................<7.5 Pediatrics: 7-12....................<8.0 Pediatrics: 0-6..................... 7.5-8.5 [employer]. Diabetes Care 33(S1)Nov 2009 Performed By: #### 4 548-4 #### ADAM CALDERON ([id number]) [facility] ([facility]) [address] [place] [address] Hemoglobin A1c/Hemoglobin.to milan 03-13-2024 HbA1c (Bld) [Mass fraction] 6.8 % High see below [facility] Comment on above: Order Comment: Diagn osis of Diabetes-Adults Non-Diabetic: < or = 5.6% Increased risk for developing diabetes: 5.7-6.4% Diagnostic of diabetes: > or = 6.5% Monitoring of Diabetes Age (y)....................... Therapeutic Goal (%) Adults: >18.........................<7.0 Pediatrics: 13-18...................<7.5 Pediatrics: 7-12....................<8.0 Pediatrics: 0-6..................... 7.5-8.5 [employer]. Diabetes Care 33(S1), Nov 2009 Performed By: #### 4 548-4 #### ADAM CALDERON ([id number]) [facility] ([facility]) [address] [place] [address] Thyrotropinon 03-13-2024 TSH Qn 0.79 m[IU]/L Normal 0.44-3.98 [facility] Comment on above: Order Comment: TSH t esting is performed using different testing methodology at [facility] than at other [facility]. Direct result comparisons should only be made within the same method. Performed By: #### 3 016-3 #### ADAM CALDERON ([id number]) [facility] ([facility]) [address] [place] [address] Edwin 03-09-2024 L Specimen: [id number] Received: 03/09/24 Status: KADIE Campbell Num: [id number] Spec Type: Surgical Subm Dr: Zuhair Grubbs DPM, MS Tissues: A Bone Biopsy/Currettings (BX RT TIBIA BONE) B Bone Biopsy/Currettings (RT TALUS BONE BX) C Bone Biopsy/Currettings (BX RT CALCANEOUS BONE) Procedures: HE/6, Gross/Micro L5/3, Decalcification/3 Age/ Patient Sex Location Account Attending Physician Darshan,April LABELL [id number] Zuhair Grubbs DPM, MS SPEC NUM: [id number] RECD: 03/09/24 STATUS: KADIE CAMPBELL NUM: [id number] TATIANNA: 03/09/[address]: Zuhair Grubbs,FLASH, MS ENTERED: 03/09/[address] [facility] DR: Carline Carlisle SPEC TYPE: Surgical DEPT: ATA FISHER ORDERED: [...] cm, entirely submitted in A1 following Specimen: [id number] Received: 03/09/24 Status: KADIE Ghazal Num: [id number] Spec Type: Surgical Subm Dr: Zuhair Grubbs DPM, MS Tissues: A Bone Biopsy/Currettings (BX RT TIBIA BONE) B Bone Biopsy/Currettings (RT TALUS BONE BX) C Bone Biopsy/Currettings (BX RT CALCANEOUS BONE) Procedures: HE/6, Gross/Micro L5/3, Decalcification/3 Patient: DarshanMarie [id number] (Continued) Specimen: [id number] Received: 03/09/24 (Continued) Gross Description (Continued) Signed (signature on file) Darci Castro MD 03/13/24 1653 Specimen: [id number] Received: 03/09/24 Status: KADIE Campbell Num: [id number] Spec Type: Surgical Subm Dr: Zuhair Grubbs,FLASH, MS Tissues: A Bone Biopsy/Currettings (BX RT TIBIA BONE) B Bone Biopsy/Currettings (RT TALUS BONE BX) C Bone Biopsy/Currettings (BX RT CALCANEOUS BONE) Procedures: HE/6, Gross/Micro L5/3, Decalcification/3 Patient: Darshan [id number] (Continued) Specimen: [id number] Received: 03/09/24 (Continued) Gross Description (Continued) decalcification. [...] joint right ankle and foot CPT Codes 33394b0, 47197m8 Specimen: [id number] Received: 03/09/24 Status: KADIE Campbell Num: [id number] Spec Type: Surgical Subm Dr: Zuhair Grubbs,DPM, MS Tissues: A Bone Biopsy/Currettings (BX RT TIBIA BONE) B Bone Biopsy/Currettings (RT TALUS BONE BX) C Bone Biopsy/Currettings (BX RT CALCANEOUS BONE) Procedures: HE/6, Gross/Micro L5/3, Decalcification/3 Patient: Darshan,Marie [id number] (Continued) Signed (signature on file) Darci Castro MD 03/13/24 1653 Normal [facility] Comprehensive metabolic 2000 panelon 11-26-2023 Albumin BCP dye [Mass/Vol] 4.6 g/dL Normal 3.4-5.0 [facility] Comment on above: Performed By: #### 2 8553-8 #### ADAM CALDERON ([id number]) [facility] ([facility]) [address] [place] [address] ALP [Catalytic activity/Vol] 52 U/L Normal 33-136 [facility] Comment on above: Performed By: #### 2 5303-8 #### ADAM CALDERON ([id number]) [facility] ([facility]) [address] [place] [address] ALT With P-5'-P [Catalytic activity/Vol] 17 U/L Normal 7-45 [facility] Comment on above: Result Comment: Shaista ents treated with Sulfasalazine may generate falsely decreased results for ALT. Performed By: #### 2 4323-8 #### ADMA CALDERON ([id number]) [facility] ([facility]) [address] [place] [address] Anion gap [Moles/Vol] 14 mmol/L Normal 10-20 [facility] Comment on above: Performed By: #### 2 432-8 #### ADAM CALDERON ([id number]) [facility] ([facility]) [address] [place] [address] AST With P-5'-P [Catalytic activity/Vol] 16 U/L Normal 9-39 [facility] Comment on above: Performed By: #### 2 432-8 #### ADAM CALDERON ([id number]) [facility] ([facility]) [address] [place] [address] Bilirubin [Mass/Vol] 0.6 mg/dL Normal 0.0-1.2 [facility] Comment on above: Performed By: #### 2 432-8 #### ADAM CALDERON ([id number]) [facility] ([facility]) [address] [place] [address] Calcium [Mass/Vol] 10.0 mg/dL Normal 8.6-10.3 [facility] Comment on above: Performed By: #### 2 432-8 #### ADAM CALDERON ([id number]) [facility] ([facility]) [address] [place] [address] Chloride [Moles/Vol] 99 mmol/L Normal 98-107 [facility] Comment on above: Performed By: #### 2 432-8 #### ADAM CALDERON ([id number]) [facility] ([facility]) [address] [place] [address] CO2 [Moles/Vol] 28 mmol/L Normal 21-32 [facility] Comment on above: Performed By: #### 2 432-8 #### ADAM CALDERON ([id number]) [facility] ([facility]) [address] [place] [address] Creatinine [Mass/Vol] 1.07 mg/dL High 0.50-1.05 [facility] Comment on above: Performed By: #### 2 4323-8 #### ADAM CALDERON ([id number]) [facility] ([facility]) [address] [place] [address] Glomerular filtration rate/1.73 sq M.predicted 59 mL/min/1.73m*2 Low >60 [facility] Comment on above: Result Comment: Calc ulations of estimated GFR are performed using the 2020 CKD-EPI Study Refit equation without the race variable for the IDMS-Traceable creatinine methods. https://jasn.asnjournals.org/content/early/ASN.6447406 988 Performed By: #### 2 432-8 #### ADAM CALDERON ([id number]) [facility] ([facility]) [address] [facility] [place] [address] Glucose [Mass/Vol] 92 mg/dL Normal 74-99 [facility] Comment on above: Performed By: #### 2 432-8 #### ADAM CALDERON ([id number]) [facility] ([facility]) [address] [place] [address] Potassium [Moles/Vol] 4.2 mmol/L Normal 3.5-5.3 [facility] Comment on above: Performed By: #### 2 432-8 #### ADAM CALDERON ([id number]) [facility] ([facility]) [address] [place] [address] Protein [Mass/Vol] 7.1 g/dL Normal 6.4-8.2 [facility] Comment on above: Performed By: #### 2 4323-8 #### ADAM CALDERON ([id number]) [facility] ([facility]) [address] [place] [address] Sodium [Moles/Vol] 137 mmol/L Normal 136-145 [facility] Comment on above: Performed By: #### 2 4323-8 #### ADAM CALDERON ([id number]) [facility] ([facility]) [address] [place] [address] Urea nitrogen [Mass/Vol] 20 mg/dL Normal 6-23 [facility] Comment on above: Performed By: #### 2 4323-8 #### ADAM CALDERON ([id number]) [facility] ([facility]) [address] [place] [address] HbA1c (Bld) [Mass fraction]o n 11-26-2023 Average [...] Pediatrics: 13-18...................<7.5 Pediatrics: 7-12....................<8.0 Pediatrics: 0-6..................... 7.5-8.5 [employer]. Diabetes Care 33(S1)Nov 2009 Performed By: #### 4 548-4 #### ADAM CALDERON ([id number]) [facility] ([facility]) [address] [place] [address] Hemoglobin A1c/Hemoglobin.to milan 11-26-2023 HbA1c (Bld) [Mass fraction] 7.3 % High see below [facility] Comment on above: Order Comment: Diagn osis of Diabetes-Adults Non-Diabetic: < or = 5.6% Increased risk for developing diabetes: 5.7-6.4% Diagnostic of diabetes: > or = 6.5% Monitoring of Diabetes Age (y)....................... Therapeutic Goal (%) Adults: >18.........................<7.0 Pediatrics: 13-18...................<7.5 Pediatrics: 7-12....................<8.0 Pediatrics: 0-6..................... 7.5-8.5 [employer]. Diabetes Care 33(S1), Nov 2009 Performed By: #### 4 548-4 #### ADAM CALDERON ([id number]) [facility] ([facility]) [address] [place] [address] Lipid 1996 panelon 4 Cholesterol [Mass/Vol] 185 [...] By: #### 2 4331-1 #### ADAM CALDERON ([id number]) [facility] ([facility]) [address] [place] [address] Cholesterol in HDL [Mass/Vol] 34.5 mg/dL Normal [facility] Comment on above: Result Comment: Age Very Low Low Normal High 0-19 Y < 35 < 40 40-45 ---- 20-24 Y ---- < 40 >45 ---- >24 Y ---- < 40 40-60 >60 Performed By: #### 2 4331-1 #### ADAM CALDERON ([id number]) [facility]) [address] [place] [address] Cholesterol in LDL [Mass/Vol] 95 mg/dL Normal <=99 [facility] Comment on above: Result Comment: Near Borderline AGE Desirable Optimal High High Very High 0-19 Y 0 - 109 --- 110-129 >/= 130 ---- 20-24 Y 0 - 119 --- 120-159 >/= 160 ---- >24 Y 0 - 99 100-129 130-159 160-189 >/=190 Performed By: #### 2 4331-1 #### ADAM CALDERON ([id number]) [facility] ([facility]) [address] [place] [address] Cholesterol in VLDL [Mass/Vol] 55 mg/dL High 0-40 [facility] Comment on above: Performed By: #### 2 4331-1 #### ADAM CALDERON ([id number]) [facility]) [address] [facility] [address] CHOLESTEROL/HDL RATIO 5.4 Normal [facility] Comment on above: Result Comment: Ref Values Desirable < 3.4 High Risk > 5.0 Performed By: #### 2 4331-1 #### ADAM CALDERON ([id number]) [facility]) [address] [place] [address] NON HDL CHOLESTEROL 151 mg/dL High 0-149 [facility] Comment on above: Result Comment: Age Desirable Borderline High High Very High 0-19 Y 0 - 119 120 - 144 >/= 145 >/= 160 20-24 Y 0 - 149 150 - 189 >/= 190 ---- >24 Y 30 mg/dL above LDL Cholesterol goal Performed By: #### 2 4331-1 #### ADAM CALDERON ([id number]) [facility]) [address] [place] [address] Triglyceride [Mass/Vol] 277 mg/dL High 0-149 [facility] [...] By: #### 2 4331-1 #### ADAM CALDERON ([id number]) [facility] ([facility]) [address] [place] [address] Thyrotropinon 11-26-2023 TSH Qn 0.72 m[IU]/L Normal 0.44-3.98 [facility] Comment on above: Order Comment: TSH t esting is performed using different testing methodology at [facility] than at other [facility]. Direct result comparisons should only be made within the same method. Performed By: #### 3 016-3 #### ADAM CALDERON ([id number]) [facility] ([facility]) [address] [place] [address] Thyroxine.freeon 11-26-2023 Free T4 [Mass/Vol] 1.24 ng/dL High 0.61-1.12 [facility] Comment on above: Order Comment: Thyro xine Free testing is performed using different testing methodology at [facility] than at other [facility]. Direct result comparisons should only [...] By: #### 3 024-7 #### ADAM CALDERON ([id number]) [facility]) [address] [place] [address] CNOVon 11-25-2023 CNOV Office Visit (ORTHLD ) MARIE SEXTON ([id number]) 1960 F Date Time Provider Department 11/25/23 [...] No di (more content not included)... 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, 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]) Surgeons: Macario Santos DPM Responsible Provider: Luc [...] November 10, 2023 TIME: 2:34 PM CSN: [id number] [facility] ANES PRE-OPon 11-10-2023 ANES PRE-OP HNO ID: [id number] Author: Serafin Partida MD Service: Anesthesiology Author Type: Anesthesiologist Type: Anesthesia Preprocedure Evaluation Filed: 11/10/2023 12:54 PM Note Text: ANESTHESIOLOGY DAY OF SURGERY NOTE : 1960 Procedure Information Date/Time: 11/10/23 1325 Procedures: REMOVAL HARDWARE FOOT (Right: Foot) - POPLITEAL BLOCK Adrian serrano aware of case - kf have available jan extraction set 1 and 2 ARTHRODESIS MIDTARSAL OR TARSOMETATARSAL, MULTIPLE OR TRANSVERSE (Right: Foot) ARTHRODESIS FOOT (Right: Foot) Location: OR / OR Surgeons: Macario Santos DPM Estimated [...] 2 puffs by (more content not included)... [facility] BRIEF OP NOTon 11-10-2023 BRIEF OP NOT HNO ID: [id number] Author: Macario Santos DPM Service: Podiatry Author Type: Physician Type: Brief Op Note Filed: 11/10/2023 2:08 PM Note Text: PODIATRIC SURGERY BRIEF OPERATIVE NOTE LOG ID: [id number] Surgery/Procedure Date: 11/10/2023 Incision/Procedure Start Time: 1:25 PM Incision Close/Procedure End Time: Surgeon(s)/Proceduralis t(s) and Financial Compliance Examiner(s): Surgeon(s) and Role: * Macario Santos DPM - Primary * Alek Mclaughlin DPM - Resident - Assisting Physician Financial Compliance Examiner: Rhoda Weston PA-C Procedure(s): Right removal of [...] SAME SIGNATURE: Macario Santos DPM PATIENT NAME: April DATE: November 10, 2023 TIME: 2:06 PM PAGER/CONTACT #: [phone] (Pager/Cell) Normal [facility] Bacteria Spec Anaerobe Culto n 11-10-2023 Bacteria identified Anaer cx Nom (Unsp spec) Negative Normal [facility] Comment on above: Performed By: #### 6 35-3, 79737-6, 25610-5 ####[facility] LABCLIA [id number] [place] [address] [place] Bacteria Tiss Culton 023 Bacteria identified Cx Nom (Tiss) CULTURE, TISSUE: No growth GRAM STAIN: No organisms seen No Polymorphonuclear Leukocytes Normal [facility] [facility] Comment on above: Performed By: #### 6 35-3, 70846-4, 51029-7 ####[facility] LABCLIA [id number] [address] [address] [place] Microorganism Spec Culton Microorganism identified Cx Nom (Unsp spec) CULTURE, FUNGAL: No Fungus isolated after 28 days FUNGAL SMEAR: No fungus seen Normal [facility] Comment on above: Performed By: #### 6 35-3, 92532-1, 84757-0 ####[facility] LABCLIA [id number] [place] [address] [place] Microorganism identified Cx Nom (Unsp spec) CULTURE, AFB: No Acid Fast Bacilli isolated after 42 days AFB STAIN: No acid fast bacilli seen by flurochrome stain [facility] Comment on above: Performed By: #### 6 35-3, 44657-3, 02596-8 ####[facility] LABCLIA [id number] [place] [address] [place] NURSING PROGon 11-10-2023 NURSING PROG HNO ID: [id number] Author: Blanca Tomas RN Service: ? Author [...] (RECOMMENDATION): None Electronically Signed By: Blanca Tomas [facility] NURSING PROG HNO ID: [id number] Author: Brigette Stallworth RN Service: Pain Management Author Type: Registered Nurse Type: Nursing Progress Note Filed: 11/10/2023 12:39 PM Note Text: RIGHT popliteal single shot nerve block and RIGHT adductor canal single shot nerve block Dr. Stanley and Dr. Rodrigues Patient verbalized understanding of nerve block procedure. Patient tolerated procedure very well; report given to primary nurse. [facility] NURSING PROG HNO ID: [id number] Author: Jenni Zarco, RN Service: ? Author Type: Registered Nurse [...] (RECOMMENDATION): None Electronically Signed By: Jenni Zarco [facility] OPERATIVE NOon 11-10-2023 OPERATIVE NO HNO ID: [id number] Author: Macario Santos DPM Service: Podiatry Author Type: Physician Type: Operative Report Filed: 11/12/2023 8:42 AM Note Text: SURGERY OPERATIVE NOTE LOG ID: [id number] Surgery/Procedure Date: 11/10/2023 Incision/Procedure Start Time: 1:25 PM Incision Close/Procedure End Time: 2:17 PM Surgeon(s)/Proceduralis t(s) and Financial Compliance Examiner(s): Surgeon(s) and Role: * Macario Santos DPM - Primary * Alek Mclaughlin DPM - Resident - Assisting Physician Financial Compliance Examiner: Rhoda Weston PA-C PRE-OP/PRE-PROCEDURE DIAGNOSIS: Right foot [...] impregnated cement was then prepared per the phy therapist's recommended technique and then placed into the [...] DPM SIGNATURE: Macario Santos DPM PATIENT NAME: April Darshan DATE: November 12, 2023 TIME: 8:37 AM PAGER/CONTACT #: [phone] (Pager/Cell) [facility] SURGICAL PATHOLOGYon 023 CASE REPORT [facility] Comment on above: Order Comment: Speci men Type: SPECIMEN FROM BONEOrdering Facility: [facility] Address: [address] [place] [address] Result Comment: Surg ical Pathology Report Case: [id number] Authorizing Provider: Macario Santos Collected: 11/10/2023 01:43 PM FLASH Zuniga Ordering Location: [facility] Received: 11/10/2023 02:35 PM Operating Room Pathologist: Laina Álvarez MD Specimen: BONE RESECTION, right non union talus Performed By: #### S ####[facility] LABCLIA [id number] [address] OF [facility] LABORATORYCLIA [id number] [address] [place] CLINICAL HISTORY POPLITEAL BLOCK Normal [facility] Comment on above: Order Comment: Speci men Type: SPECIMEN FROM BONEOrdering Facility: [facility] Address: [address] [place] [address] Result Comment: Pre-op diagnosis: Retained orthopedic hardware [Z96.9] Nonunion of foot fracture, 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 B one and soft tissue, right, nonunion talus bone, resection: - Soft tissue with reactive changes, chronic inflammation and foreign body-type giant cell reaction. - Fragments of necrotic bone. Performed By: #### S ####[facility] LABCLIA [id number] [address] LABORATORYCLIA [id number] [address] [place] FINAL PERFORMING LAB Normal [facility] Comment on above: Order Comment: Speci men Type: SPECIMEN FROM BONEOrdering Facility: [facility] Address: [address] [place] [address] Result Comment: Diag nostic interpretation performed at [facility], [address] [id number] CLIA# [id number] [employer] Analyst: Sarwat Enamorado M.D. Performed By: #### S ####[facility] LABCLIA [id number] [address] LABORATORYCLIA [id number] [address] STATES OF [facility] GROSS DESCRIPTION Normal [facility] Comment on above: Order Comment: Speci men Type: SPECIMEN FROM BONEOrdering Facility: [facility] Address: [address] [place] [address] Result Comment: A. 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 Totally submitted in 1 cassette following decalcification. MLG November 11, 2023 9:03 AM Gross examination performed at [facility], [address] [place] [address] Performed By: #### S ####[facility] LABCLIA [id number] [address] OF [facility] LABORATORYIA [id number] [address] [place] XR FOOT 2V AP/LAT RTon 11-10 XR [...] IMPRESSION: Please see operative note for details Juvenile Officer: SUBHASH Transcribe Date/Time: Nov 10 2023 3:22P Dictated by : ARLIN CRUZ MD This examination was interpreted and the report reviewed and electronically signed by: ARLIN CRUZ MD on Nov 10 2023 3:24PM EST [id number] Normal [facility] CBC W Auto Differential pane l (Bld)on 11-03-2023 Basophils (Bld) [#/Vol] 0.05 10*3/uL Normal <0.11 [facility] Comment on above: Order Comment: Speci men Type: BLOOD SPECIMENOrdering Facility: [facility] Address: [address] [place] [address] Performed By: #### 5 7021-8 ####[facility] LABIA [id number] [address] [id number] [address] [place] Basophils/100 WBC (Bld) 0.6 % Normal [facility] Comment on above: Order Comment: Speci men Type: BLOOD SPECIMENOrdering Facility: [facility] Address: [address] [place] [address] Performed By: #### 5 7021-8 ####[facility] LABCLIA [id number] [place] [address] [place] Differential cell count method Nom (Bld) Auto Normal [facility] Comment on above: Order Comment: Speci men Type: BLOOD SPECIMENOrdering Facility: [facility] Address: [address] [place] [address] Performed By: #### 5 7021-8 ####[facility] LABCLIA [id number] [place] [address] [place] Eosinophils (Bld) [#/Vol] 0.41 10*3/uL Normal <0.46 [facility] Comment on above: Order Comment: Speci men Type: BLOOD SPECIMENOrdering Facility: [facility] Address: [address] [place] [address] Performed By: #### 5 7021-8 ####[facility] LABCLIA [id number] [place] [address] [place] Eosinophils/100 WBC (Bld) 4.9 % Normal [facility] Comment on above: Order Comment: Speci men Type: BLOOD SPECIMENOrdering Facility: [facility] Address: [address] [place] [address] Performed By: #### 5 7021-8 ####[facility] LABCLIA [id number] [place] [address] [place] Erythrocyte distribution width (RBC) [Ratio] 12.8 % Normal 11.5-15.0 [facility] Comment on above: Order Comment: Speci men Type: BLOOD SPECIMENOrdering Facility: [facility] Address: [address] [place] [address] Performed By: #### 5 7021-8 ####[facility] LABCLIA [id number] [place] [address] [place] Hematocrit (Bld) [Volume fraction] 40.9 % Normal 36.0-46.0 [facility] Comment on above: Order Comment: Speci men Type: BLOOD SPECIMENOrdering Facility: [facility] Address: [address] [place] [address] Performed By: #### 5 7021-8 ####[facility] LABCLIA [id number] [place] [address] [place] Hemoglobin (Bld) [Mass/Vol] 12.9 g/dL Normal 11.5-15.5 [facility] Comment on above: Order Comment: Speci men Type: BLOOD SPECIMENOrdering Facility: [facility] Address: [address] [place] [address] Performed By: #### 5 7021-8 ####[facility] LABCLIA [id number] [place] [address] [place] Immature granulocytes (Bld) [#/Vol] 0.05 10*3/uL Normal <0.10 [facility] Comment on above: Order Comment: Speci men Type: BLOOD SPECIMENOrdering Facility: [facility] Address: [address] [place] [address] Performed By: #### 5 7021-8 ####[facility] LABCLIA [id number] [place] [address] [place] Immature granulocytes/100 WBC (Bld) 0.6 % Normal [facility] Comment on above: Order Comment: Speci men Type: BLOOD SPECIMENOrdering Facility: [facility] Address: [address] [place] [address] Performed By: #### 5 7021-8 ####[facility] LABCLIA [id number] [place] [address] [place] Lymphocytes (Bld) [#/Vol] 2.95 10*3/uL Normal 1.00-4.00 [facility] Comment on above: Order Comment: Speci men Type: BLOOD SPECIMENOrdering Facility: [facility] Address: [address] [place] [address] Performed By: #### 5 7021-8 ####[facility] LABCLIA [id number] [place] [address] [place] Lymphocytes/100 WBC (Bld) 35.2 % Normal [facility] Comment on above: Order Comment: Speci men Type: BLOOD SPECIMENOrdering Facility: [facility] Address: [address] [place] [address] Performed By: #### 5 7021-8 ####[facility] LABIA [id number] [place] [address] [place] MCH (RBC) [Entitic mass] 28.6 pg Normal 26.0-34.0 [facility] Comment on above: Order Comment: Speci men Type: BLOOD SPECIMENOrdering Facility: [facility] Address: [address] [place] [address] Performed By: #### 5 7021-8 ####[facility] LABIA [id number] [place] [address] [place] MCHC (RBC) [Mass/Vol] 31.5 g/dL Normal 30.5-36.0 [facility] Comment on above: Order Comment: Speci men Type: BLOOD SPECIMENOrdering Facility: [facility] Address: [address] [place] [address] Performed By: #### 5 7021-8 ####[facility] LABIA [id number] [place] [address] [place] MCV (RBC) [Entitic vol] 90.7 fL Normal 80.0-100.0 [facility] Comment on above: Order Comment: Speci men Type: BLOOD SPECIMENOrdering Facility: [facility] Address: [address] [place] [address] Performed By: #### 5 7021-8 ####[facility] LABCLIA [id number] [place] [address] [place] Monocytes (Bld) [#/Vol] 0.63 10*3/uL Normal <0.87 [facility] Comment on above: Order Comment: Speci men Type: BLOOD SPECIMENOrdering Facility: [facility] Address: [address] [place] [address] Performed By: #### 5 7021-8 ####[facility] LABCLIA [id number] [place] [address] [place] Monocytes/100 WBC (Bld) 7.5 % Normal [facility] Comment on above: Order Comment: Speci men Type: BLOOD SPECIMENOrdering Facility: [facility] Address: [address] [place] [address] Performed By: #### 5 7021-8 ####[facility] LABCLIA [id number] [place] [address] [place] Neutrophils (Bld) [#/Vol] 4.30 10*3/uL Normal 1.45-7.50 [facility] Comment on above: Order Comment: Speci men Type: BLOOD SPECIMENOrdering Facility: [facility] Address: [address] [place] [address] Performed By: #### 5 7021-8 ####[facility] LABCLIA [id number] [place] [address] [place] Neutrophils/100 WBC (Bld) 51.2 % Normal [facility] Comment on above: Order Comment: Speci men Type: BLOOD SPECIMENOrdering Facility: [facility] Address: [address] [place] [address] Performed By: #### 5 7021-8 ####[facility] LABCLIA [id number] [place] [address] [place] Nucleated RBC (Bld) [#/Vol] 10*3/uL Normal <0.01 [facility] Comment on above: Order Comment: Speci men Type: BLOOD SPECIMENOrdering Facility: [facility] Address: [address] [place] [address] Performed By: #### 5 7021-8 ####[facility] LABCLIA [id number] [place] [address] [place] Nucleated RBC/100 WBC (Bld) [Ratio] 0.0 /100 WBC Normal [facility] Comment on above: Order Comment: Speci men Type: BLOOD SPECIMENOrdering Facility: [facility] Address: [address] [place] [address] Performed By: #### 5 7021-8 ####[facility] LABCLIA [id number] [place] [address] [place] Platelet mean volume (Bld) [Entitic vol] 10.2 fL Normal 9.0-12.7 [facility] Comment on above: Order Comment: Speci men Type: BLOOD SPECIMENOrdering Facility: [facility] Address: [address] [place] [address] Performed By: #### 5 7021-8 ####[facility] LABIA [id number] [place] [address] [place] Platelets (Bld) [#/Vol] 315 10*3/uL Normal 150-400 [facility] Comment on above: Order Comment: Speci men Type: BLOOD SPECIMENOrdering Facility: [facility] Address: [address] [place] [address] Performed By: #### 5 7021-8 ####[facility] LABCLIA [id number] [place] [address] [place] RBC (Bld) [#/Vol] 4.51 10*6/uL Normal 3.90-5.20 [facility] Comment on above: Order Comment: Speci men Type: BLOOD SPECIMENOrdering Facility: [facility] Address: [address] [place] [address] Performed By: #### 5 7021-8 ####[facility] LABCLIA [id number] [place] [address] [place] WBC (Bld) [#/Vol] 8.39 10*3/uL Normal 3.70-11.00 [facility] Comment on above: Order Comment: Speci men Type: BLOOD SPECIMENOrdering Facility: [facility] Address: [address] [place] [address] Performed By: #### 5 7021-8 ####[facility] LABCLIA [id number] [place] [address] [facility] Comprehensive metabolic 2000 panelon 11-03-2023 Albumin [Mass/Vol] 4.8 g/dL Normal 3.9-4.9 [facility] Comment on above: Order Comment: Speci men Type: BLOOD SPECIMENOrdering Facility: [facility] Address: [address] [place] [address] Performed By: #### 2 4323-8 ####[facility] LABIA [id number] [place] [address] [place] ALP [Catalytic activity/Vol] 73 U/L Normal 34-123 [facility] Comment on above: Order Comment: Speci men Type: BLOOD SPECIMENOrdering Facility: [facility] Address: [address] [place] [address] Performed By: #### 2 4323-8 ####[facility] LABIA [id number] [place] [address] [place] ALT [Catalytic activity/Vol] 14 U/L Normal 7-38 [facility] Comment on above: Order Comment: Speci men Type: BLOOD SPECIMENOrdering Facility: [facility] Address: [address] [place] [address] Performed By: #### 2 4323-8 ####[facility] LABIA [id number] [id number] [place] [address] [place] Anion gap [Moles/Vol] 13 mmol/L Normal 9-18 [facility] Comment on above: Order Comment: Speci men Type: BLOOD SPECIMENOrdering Facility: [facility] Address: [address] [place] [address] Performed By: #### 2 4323-8 ####[facility] LABCLIA [id number] [place] [address] [place] AST [Catalytic activity/Vol] 17 U/L Normal 13-35 [facility] Comment on above: Order Comment: Speci men Type: BLOOD SPECIMENOrdering Facility: [facility] Address: [address] [place] [address] Performed By: #### 2 4323-8 ####[facility] LABCLIA [id number] [place] [address] [place] Bilirubin [Mass/Vol] 0.2 mg/dL Normal 0.2-1.3 [facility] Comment on above: Order Comment: Speci men Type: BLOOD SPECIMENOrdering Facility: [facility] Address: [address] [place] [address] Performed By: #### 2 4323-8 ####[facility] LABCLIA [id number] [place] [address] [place] Calcium [Mass/Vol] 10.7 mg/dL High 8.5-10.2 [facility] Comment on above: Order Comment: Speci men Type: BLOOD SPECIMENOrdering Facility: [facility] Address: [address] [place] [address] Performed By: #### 2 4323-8 ####[facility] LABCLIA [id number] [place] [address] [place] Chloride [Moles/Vol] 101 mmol/L Normal 97-105 [facility] Comment on above: Order Comment: Speci men Type: BLOOD SPECIMENOrdering Facility: [facility] Address: [address] [place] [address] Performed By: #### 2 4323-8 ####[facility] LABCLIA [id number] [place] [address] [place] CO2 [Moles/Vol] 28 mmol/L Normal 22-30 [facility] Comment on above: Order Comment: Speci men Type: BLOOD SPECIMENOrdering Facility: [facility] Address: [address] [place] [address] Performed By: #### 2 4323-8 ####[facility] LABCLIA [id number] [place] [address] [place] Creatinine [Mass/Vol] 0.92 mg/dL Normal 0.58-0.96 [facility] Comment on above: Order Comment: Speci men Type: BLOOD SPECIMENOrdering Facility: [facility] Address: [address] [place] [address] Performed By: #### 2 4323-8 ####[facility] LABCLIA [id number] [place] [address] [place] Creatinine and Glomerular filtration rate.predicted panel (S/P/Bld) 71 mL/min/1.73m??? Normal >=60 [facility] Comment on above: Order Comment: Speci men Type: BLOOD SPECIMENOrdering Facility: [facility] Address: [address] [place] [address] Result Comment: Luis mated Glomerular Filtration Rate [...] actual GFR. Performed By: #### 2 4323-8 ####[facility] LABCLIA [id number] [place] [address] [place] Glucose [Mass/Vol] 125 mg/dL High 74-99 [facility] Comment on above: Order Comment: Speci men Type: BLOOD SPECIMENOrdering Facility: [facility] Address: [address] [place] [address] Result Comment: The [place] Diabetes Association (ADA) provides guidance for cutoff [...] Standards of Medical Care in Diabetes 2016, [place] [employer] Association. Diabetes Care. 2016.39(Suppl 1). Performed By: #### 2 4323-8 ####[facility] LABCLIA [id number] [place] [address] [place] Potassium [Moles/Vol] 4.9 mmol/L Normal 3.7-5.1 [facility] Comment on above: Order Comment: Speci men Type: BLOOD SPECIMENOrdering Facility: [facility] Address: [address] [place] [address] Performed By: #### 2 4323-8 ####[facility] LABCLIA [id number] [place] [address] [place] Protein [Mass/Vol] 7.8 g/dL Normal 6.3-8.0 [facility] Comment on above: Order Comment: Speci men Type: BLOOD SPECIMENOrdering Facility: [facility] Address: [address] [place] [address] Performed By: #### 2 4323-8 ####[facility] LABCLIA [id number] [place] [address] [place] Sodium [Moles/Vol] 142 mmol/L Normal 136-144 [facility] Comment on above: Order Comment: Speci men Type: BLOOD SPECIMENOrdering Facility: [facility] Address: [address] [facility] [place] [id number] Performed By: #### 2 4323-8 ####[facility] LABCLIA [id number] [place] [address] [place] Urea nitrogen [Mass/Vol] 25 mg/dL High 7-21 [facility] Comment on above: Order Comment: Speci men Type: BLOOD SPECIMENOrdering Facility: [facility] Address: [address] [place] [id number] Performed By: #### 2 4323-8 ####[facility] LABCLIA [id number] [place] [address] [place] HISTORY PHYSICALon HISTORY PHYSICAL HNO ID: [id number] Author: Wiliam Daniels APRN.ROBOT OPERATOR Service: ? Author Type: Nurse Practitioner [...] large neck Non-male patient STOP-Bang Score: 2 [id number]-[id number] Score: Age: <65 Sex: Female CHF history: No Hypertension history: Yes Stroke/TIA/thromboembol ism history: No Diabetes history: Yes YYT5QM3-GRQh Score: 3 ANESTHESIA FINDINGS: Intubation History: No [...] dyspnea, pratik (more content not included)... Normal [facility] HbA1c (Bld)on 11-03-2023 Average glucose Estimated from glycated hemoglobin (Bld) [Mass/Vol] 126 mg/dL Normal [facility] Comment on above: Order Comment: Shlomo ghosh Type: BLOOD SPECIMENOrdering Facility: [facility] Address: [address] [place] [address] Result Comment: eAG: (Estimated average glucose) is a calculated value from HgbA1c and is district sales representative of the average blood glucose level in the last 2-3 month period. Performed By: #### 5 5454-3 ####[facility] LABCLIA [id number] [facility] [place] [address] [place] HbA1c (Bld) [Mass fraction] 6.0 % High 4.3-5.6 [facility] Comment on above: Order Comment: Shlomo ghosh Type: BLOOD SPECIMENOrdering Facility: [facility] Address: [address] [place] [address] Result Comment: [place] Diabetes Association guidelines indicate that patients with HgbA1c in the range 5.7-6.4% are at increased risk for development of diabetes, and intervention by lifestyle modification may be beneficial. HgbA1c greater or equal to 6.5% is considered diagnostic of diabetes. Performed By: #### 5 5454-3 ####[facility] GRECIA [id number] [place] [id number] [place] CT ANKLE WO IVCON RTon 10-14 CT ANKLE WO IVCON RT * * *Final Report* * * DATE OF EXAM: Oct 14 2023 12:19PM [facility] [place] 0061 - CT ANKLE WO IVCON RT [...] OF MULTIPLE SCREWS IN THE MIDFOOT DESCRIBED. Juvenile Officer: PSCScott Transcribe Date/Time: Oct 14 2023 12:22P Dictated by : LATRICIA LIN MD This examination was interpreted and the report reviewed and electronically signed by: LATRICIA LIN MD on Oct 14 2023 1:12PM EST [id number] Normal [facility] CT Ankle - right WO contrast on 10-14-2023 * * *Final Report* * * DATE OF EXAM: Oct 14 2023 12:19PM [facility] 0061 - CT ANKLE WO IVCON RT [...] OF MULTIPLE SCREWS IN THE MIDFOOT DESCRIBED. Juvenile Officer: SUBHASH Transcribe Date/Time: Oct 14 2023 12:22P Dictated by : LATRICIA LIN MD This examination was interpreted and the report reviewed and electronically signed by: LATRICIA LIN MD on Oct 14 2023 1:12PM [facility] DIVISION OF RADIOLOGY Provider, [facility] - 10/14/2023 * * *Final Report* * * DATE OF EXAM: Oct 14 2023 12:19PM [facility] [place] 0061 - CT ANKLE WO IVCON RT [...] OF MULTIPLE SCREWS IN THE [place] DESCRIBED. Juvenile Officer: SUBHASH Transcribe Date/Time: Oct 14 2023 12:22P Dictated by : LATRICIA LIN MD This examination was interpreted and the report reviewed and electronically signed by: LATRICIA LIN MD on Oct 14 2023 1:12PM EST [facility] Radiology Study observation (narrative) [facility] CT Ankle - right WO contrast Ordered By: Ccf Provider on 10-14-2023 [facility] CNOVon 10-11-2023 CNOV Office Visit (ORTHLD ) MARIE SEXTON ([id number]) 1960 F Date Time Provider Department 10/11/23 [...] OBJECTIVE: Patient (more content not included)... Normal [facility] XR FOOT 3V AP/LAT/OBL BILon 10-11-2023 [...] left foot, possibly due to Charcot arthropathy Juvenile Officer: SUBHASH Transcribe Date/Time: Oct 14 2023 9:07A Dictated by : REGI WOODS MD This examination was interpreted and the report reviewed and electronically signed by: REGI WOODS MD on Oct 14 2023 9:15AM EST [id number] Normal [facility] CNOVon 09-06-2023 CNOV Office Visit (JAE ) MARIE SEXTON ([id number]) 1960 F Date Time Provider Department 09/06/23 [...] peripheral weakness/ (more content not included)... Normal [facility] XR ANKLE 3V AP/LAT/OBL LTon 09-06-2023 [...] concern for Charcot foot. Please clinically correlate. Juvenile Officer: SUBHASH Transcribe Date/Time: Sep 09 2023 8:54A Dictated by : AGAPITO PINZON MD This examination was interpreted and the report reviewed and electronically signed by: AGAPITO PINZON MD on Sep 09 2023 9:15AM EST [id number] Normal [facility] XR ANKLE 3V AP/LAT/OBL RTon 09-06-2023 [...] concern for Charcot foot. Please clinically correlate. Juvenile Officer: SUBHASH Transcribe Date/Time: Sep 09 2023 8:54A Dictated by : AGAPITO PINZON MD This examination was interpreted and the report reviewed and electronically signed by: AGAPITO PINZON MD on Sep 09 2023 9:15AM EST [id number] Normal [facility] CNOVon 08-05-2023 CNOV Office Visit (ORTHLD ) DARSHANMARIE TRINIDAD ([id number]) 1960 F Date Time Provider Department 08/05/23 [...] to hips Nasal sinus congestion post nasa ip Neck pain stiffness Neuropathy diabetic neuropathy both [...] ROS obtain (more content not included)... Normal [facility] XR ANKLE 3V AP/LAT/OBL RTon 08-05-2023 [...] joints visible in the lateral projection only. Juvenile Officer: PSCB Transcribe Date/Time: Aug 09 2023 12:30P Dictated by : REGI WOODS MD This examination was interpreted and the report reviewed and electronically signed by: REGI WOODS MD on Aug 09 2023 12:34PM EST [id number] Normal [facility] ALBUMIN, URINE SPOTon 2022 ALBUMIN,URINE <7.0 Normal Not Established [facility] Comment on above: Performed By: #### A LBSP #### [facility] [address] [place] [address] ALBUMIN/CREAT RATIO SEE COMMENT Normal 0.0 - 30.0 [facility] Comment on above: Result Comment: One or more analytes used in this calculation is outside of the analytical measurement range. Calculation cannot be performed. Performed By: #### A LBSP #### [facility] [address] [place] [address] CREATININE,URINE 147.0 mg/dL Normal 20.0 - 320.0 [facility] Comment on above: Performed By: #### A LBSP #### [facility] [address] [place] [address] CBC AND DIFFERENTIALon 07-27 % AUTOMATED IMMATURE GRAN 0.3 % Normal 0.0 - 0.9 [facility] Comment on above: Result Comment: Coni ture Granulocyte Count (IG) includes promyelocytes, myelocytes and metamyelocytes but does not include bands. Percent differential counts (%) should be interpreted in the context of the absolute cell counts (cells/L). Performed By: #### C BCDF #### [address] [address] Basophils (Bld) [#/Vol] 0.06 10*3/uL Normal 0.00 - 0.10 [facility] Comment on above: Performed By: #### C BCDF #### [address] [place] [address] Basophils/100 WBC (Bld) 0.9 % Normal 0.0 - 2.0 [facility] Comment on above: Performed By: #### C BCDF #### [address] [address] Eosinophils (Bld) [#/Vol] 0.28 10*3/uL Normal 0.00 - 0.70 [facility] Comment on above: Performed By: #### C BCDF #### [address] [address] Eosinophils/100 WBC (Bld) 4.1 % Normal 0.0 - 6.0 [facility] Comment on above: Performed By: #### C BCDF #### [address] [address] Erythrocyte distribution width (RBC) [Ratio] 12.6 % Normal 11.5 - 14.5 [facility] Comment on above: Performed By: #### C BCDF #### [address] [address] Hematocrit (Bld) [Volume fraction] 40.3 % Normal 36.0 - 46.0 [facility] Comment on above: Performed By: #### C BCDF #### [address] [address] Hemoglobin (Bld) [Mass/Vol] 13.0 g/dL Normal 12.0 - 16.0 [facility] Comment on above: Performed By: #### C BCDF #### [address] [place] [address] Lymphocytes (Bld) [#/Vol] 2.95 10*3/uL Normal 1.20 - 4.80 [facility] Comment on above: Performed By: #### C BCDF #### [address] [address] Lymphocytes/100 WBC (Bld) 42.8 % Normal 13.0 - 44.0 [facility] Comment on above: Performed By: #### C BCDF #### [address] [address] MCHC (RBC) [Mass/Vol] 32.3 g/dL Normal 32.0 - 36.0 [facility] Comment on above: Performed By: #### C BCDF #### [address] [address] MCV (RBC) [Entitic vol] 91 fL Normal 80 - 100 [facility] Comment on above: Performed By: #### C BCDF #### [address] [address] Monocytes (Bld) [#/Vol] 0.54 10*3/uL Normal 0.10 - 1.00 [facility] Comment on above: Performed By: #### C BCDF #### [address] [address] Monocytes/100 WBC (Bld) 7.8 % Normal 2.0 - 10.0 [facility] Comment on above: Performed By: #### C BCDF #### [address] [address] Neutrophils (Bld) [#/Vol] 3.05 10*3/uL Normal 1.20 - 7.70 [facility] Comment on above: Performed By: #### C BCDF #### [address] [address] Neutrophils/100 WBC (Bld) 44.1 % Normal 40.0 - 80.0 [facility] Comment on above: Performed By: #### C BCDF #### [address] [address] NUCLEATED RBC 0.0 /100 WBC Normal 0.0 - 0.0 [facility] Comment on above: Performed By: #### C BCDF #### [address] [address] Platelets (Bld) [#/Vol] 358 10*3/uL Normal 150 - 450 [facility] Comment on above: Performed By: #### C BCDF #### [facility] [address] [place] [address] RBC 4.42 x10E12/L Normal 4.00 - 5.20 [facility] Comment on above: Performed By: #### C BCDF #### [facility] [address] [place] [address] WBC (Bld) [#/Vol] 6.9 10*3/uL Normal 4.4 - 11.3 [facility] Comment on above: Performed By: #### C BCDF #### [facility] [address] [place] [address] COMPREHENSIVE PANELon 2022 Albumin [Mass/Vol] 4.5 g/dL Normal 3.4 - 5.0 [facility] Comment on above: Performed By: #### C OVSC #### [facility] [address] [place] [address] ALP [Catalytic activity/Vol] 85 U/L Normal 33 - 136 [facility] Comment on above: Performed By: #### C OVSC #### [facility] [address] [place] [address] ALT [Catalytic activity/Vol] 14 U/L Normal 7 - 45 [facility] Comment on above: Result Comment: Shaista ents treated with Sulfasalazine may generate falsely decreased results for ALT. Performed By: #### C OVSC #### [facility] [address] [place] [address] Anion gap [Moles/Vol] 11 mmol/L Normal 10 - 20 [facility] Comment on above: Performed By: #### C OVSC #### [facility] [address] [place] [address] AST [Catalytic activity/Vol] 14 U/L Normal 9 - 39 [facility] Comment on above: Performed By: #### C OVSC #### [facility] [address] [place] [address] Bilirubin [Mass/Vol] 0.4 mg/dL Normal 0.0 - 1.2 [facility] Comment on above: Performed By: #### C OVSC #### [facility] [address] [place] [address] Calcium [Mass/Vol] 9.7 mg/dL Normal 8.6 - 10.3 [facility] Comment on above: Performed By: #### C OVSC #### [facility] [address] [place] [address] Chloride [Moles/Vol] 105 mmol/L Normal 98 - 107 [facility] Comment on above: Performed By: #### C OVSC #### [facility] [address] [place] [address] Creatinine [Mass/Vol] 1.06 mg/dL High 0.50 - 1.05 [facility] Comment on above: Performed By: #### C OVSC #### [facility] [address] [place] [address] GFR/1.73 sq M.predicted among non-blacks MDRD (S/P/Bld) [Vol rate/Area] 59 mL/min/{1.73_m2} Abnormal >90 [facility] Comment on above: Result Comment: CALC ULATIONS OF ESTIMATED GFR ARE PERFORMED USING THE 2020 CKD-EPI STUDY REFIT EQUATION WITHOUT THE RACE VARIABLE FOR THE IDMS-TRACEABLE CREATININE METHODS. https://jasn.asnjournals.org/content//ASN.6085693 988 Performed By: #### C OVSC #### [facility] [address] [place] [address] Glucose [Mass/Vol] 109 mg/dL High 74 - 99 [facility] Comment on above: Performed By: #### C OVSC #### [facility] [address] [place] [address] HCO3 (Bld) [Moles/Vol] 28 mmol/L Normal 21 - 32 [facility] Comment on above: Performed By: #### C OVSC #### [facility] [address] [place] [address] Potassium [Moles/Vol] 4.2 mmol/L Normal 3.5 - 5.3 [facility] Comment on above: Performed By: #### C OVSC #### [facility] [address] [place] [address] Protein [Mass/Vol] 7.7 g/dL Normal 6.4 - 8.2 [facility] Comment on above: Performed By: #### C OVSC #### [facility] [address] [place] [address] Sodium [Moles/Vol] 140 mmol/L Normal 136 - 145 [facility] Comment on above: Performed By: #### C OVSC #### [facility] [address] [place] [address] Urea nitrogen [Mass/Vol] 23 mg/dL Normal 6 - 23 [facility] Comment on above: Performed By: #### C OVSC #### [place] [address] [place] [address] HEMOGLOBIN A1Con 07-27-2023 Glucose [Mass/Vol] 128 mg/dL Normal [facility] Comment on above: Performed By: #### A LBSP #### [facility] [address] [place] [address] HbA1c (Bld) [Mass fraction] 6.1 % Abnormal [facility] Comment on above: Result Comment: Diag nosis of Diabetes-Adults Non-Diabetic: < or = 5.6% Increased risk for developing diabetes: 5.7-6.4% Diagnostic of diabetes: > or = 6.5% . Monitoring of Diabetes Age (y) Therapeutic Goal (%) Adults: >18 <7.0 Pediatrics: 13-18 <7.5 7-12 <8.0 0- 6 7.5-8.5 [employer]. Diabetes Care 33(S1), Nov 2009. Performed By: #### A LBSP #### [facility] [address] [place] [address] LDL, DIRECTon 07-27-2023 Cholesterol in LDL [Mass/Vol] 106 mg/dL Normal 0 - 129 [facility] Comment on above: Result Comment: Elev ated levels of LDL cholesterol are recognized as a fisher factor in the development of atherosclerosis and CHD. The direct LDL cholesterol test can be used to assess cardiovascular risk and monitor therapy as a follow up to a lipid profile when triglycerides are significantly elevated. Performed By: #### A LBSP #### [facility] [address] [place] [address] LIPID PANEL (CORONARY RISK 2 )on 07-27-2023 Cholesterol [Mass/Vol] 183 mg/dL Normal 0 - 199 [facility] Comment on above: Result Comment: . AGE [...] guidelines reference: NCEP ATPIII Guidelines, EMELI 2001, 258:6886-97 . Venipuncture immediately after or during the administration of Metamizole may lead to falsely low results. Testing should be performed immediately prior to Metamizole dosing. Performed By: #### C OVSC #### [facility] [address] [place] [address] Cholesterol in HDL [Mass/Vol] 33.1 mg/dL Abnormal [facility] Comment on above: Result Comment: . AGE VERY LOW LOW NORMAL HIGH 0-19 Y < 35 < 40 40-45 ---- 20-24 Y ---- < 40 >45 ---- >24 Y ---- < 40 40-60 >60 . Performed By: #### C OVSC #### [facility] [address] [place] [address] Cholesterol in LDL [Mass/Vol] 92 mg/dL Normal 0 - 99 [facility] Comment on above: Result Comment: . NEAR BORD AGE DESIRABLE OPTIMAL HIGH HIGH VERY HIGH 0-19 Y 0 - 109 --- 110-129 >/= 130 ---- 20-24 Y 0 - 119 --- 120-159 >/= 160 ---- >24 Y 0 - 99 100-129 130-159 160-189 >/=190 . Performed By: #### C OVSC #### [facility] [address] [place] [address] Cholesterol in VLDL [Mass/Vol] 58 mg/dL High 0 - 40 [facility] Comment on above: Performed By: #### C OVSC #### [facility] [address] [place] [address] Cholesterol.total/Ch olesterol in HDL [Mass ratio] 5.5 {ratio} Abnormal [facility] Comment on above: Result Comment: REF VALUES DESIRABLE < 3.4 HIGH RISK > 5.0 Performed By: #### C OVSC #### [facility] [address] [place] [address] NON-HDL CHOLESTEROL 150 mg/dL Normal [facility] Comment on above: Result Comment: AGE DESIRABLE BORDERLINE HIGH HIGH VERY HIGH 0-19 Y 0 - 119 120 - 144 >/= 145 >/= 160 20-24 Y 0 - 149 150 - 189 >/= 190 ---- >24 Y 30 MG/DL ABOVE LDL CHOLESTEROL GOAL . Performed By: #### C OVSC #### [facility] [address] [place] [address] Triglyceride [Mass/Vol] 288 mg/dL High 0 - 149 [facility] Comment on above: Result Comment: . AGE [...] dosing. Performed By: #### C OVSC #### [facility] [address] [place] [address] TSHon 07-27-2023 TSH Qn 0.61 m[IU]/L Normal 0.44 - 3.98 [facility] Comment on above: Result Comment: TSH testing is performed using different testing methodology at [facility] than at other [facility]. Direct result comparisons should only be made within the same method. Performed By: #### A LBSP #### [facility] [address] [place] [address] VITAMIN B12on 07-27-2023 Cobalamin (Vitamin B12) [Mass/Vol] 1408 pg/mL High 211 - 911 [facility] Comment on above: Performed By: #### V TB12 #### [facility] [address] [place] [address] VITAMIN D, 25-HYDROXYon 07-16 VITAMIN D, 25-HYDROXY 50 ng/mL Normal [facility] Comment on above: Result Comment: . DEFICIENCY: < 20 NG/ML INSUFFICIENCY: 20-29 NG/ML SUFFICIENCY: 30-100 NG/ML THIS ASSAY ACCURATELY QUANTIFIES THE SUM OF VITAMIN D3, 25-HYDROXY AND VIT D2,25-HYDROXY. Performed By: #### V TDOH #### [facility] [address] [place] [address] ALLIED HEALTHon 07-02-2023 [facility]IED [facility]ALTH HNO ID: [id number] Author: Francesca Kaur Service: Radiology Author Type: ? Type: Allied Health Filed: 07/02/2023 10:12 AM Note Text: RADIOLOGY SERVICE PROGRESS NOTE DATE OF SERVICE: July 02, 2023 TIME OF SERVICE: 10:03AM EVENT: ARRIVED IN WHEELCHAIR ADDITIONAL EVENT DETAILS: NA SIGNATURE: Francesca Kaur PATIENT NAME: Marie Sexton DATE: July 02, 2023 TIME: 10:12 AM PAGER/CONTACT #: [facility] CNOVon 07-02-2023 CNOV Office Visit (ORFWHP ) MARIE SEXTON ([id number]) 1960 F Date Time Provider Department 07/02/23 [...] No new joint (more content not included)... [facility] XR ANKLE 3V AP/LAT/OBL RTon 07-02-2023 [...] appears intact. Pes planus. IMPRESSION: Postsurgical changes. Juvenile Officer: SUBHASH Transcribe Date/Time: Jul 07 2023 7:59A Dictated by : SREE BUTTS MD This examination was interpreted and the report reviewed and electronically signed by: SREE BUTTS MD on Jul 07 2023 8:02AM EST [id number] [facility] CNOVon 06-07-2023 CNOV Office Visit (ORTHLD ) DARSHANApril ([id number]) 1960 F Date Time Provider Department 06/07/23 [...] habits, hematoche (more content not included)... Normal [facility] Office Visit (ORTHLD ) MARIE SEXTON ([id number]) 1960 F Date Time Provider Department 06/07/23 11:30 AM [facility] ORTHLD During your visit today, we recorded the following information about you: Mahendra Prajapati MA 06/07/2023 2:52 PM Signed Marie presents today for splint removal. Marie's splint was removed and skin cleansed. Marie tolerated this procedure well. Directed Marie and daughter to xray prior to appt w/ Dr. Santos. Mahendra Prajapati MA Splint was removed by Lorraine Yancey, DEMI Referring Provider: MACARIO SANTOS [[id number]] Allergies As of Date: 06/07/2023 Noted Allergy [...] As Of Date 06/07/2023 Noted Resolved diabetes [[id number]] 05/17/2023 Neuropathy [G62.9] Hallux extensus, acquired [M20.5X9] [...] Status:Closed by MAHENDRA PRAJAPATI on 06/07/23 Normal [facility] XR ANKLE 3V AP/LAT/OBL RTon 06-07-2023 [...] IMPRESSION: Postoperative findings as given the results. Juvenile Officer: SUBHASH Transcribe Date/Time: Jun 10 2023 11:03A Dictated by : FANG HOLLOWAY MD This examination was interpreted and the report reviewed and electronically signed by: FANG HOLLOWAY MD on Jun 10 2023 11:06AM EST [id number] Normal [facility] CNOVon 05-27-2023 CNOV Office Visit (ORFWHP ) MARIE SEXTON ([id number]) 1960 F Date Time Provider Department 05/27/23 [...] As Of Date 05/27/2023 Noted Resolved diabetes [[id number]] 05/17/2023 Neuropathy [G62.9] Hallux extensus, acquired [M20.5X9] [...] Status:Closed by REGI CHERRY MA on 05/27/23 [facility] Bimal 05-24-2023 CNPN Telephone (FVFOPR) MARIE SEXTON ([id number]) 1960 F Date Time Provider Department 05/24/23 [...] Mara Stallworth RN Acute Pain Management Service [facility] Allergies As of Date: 05/24/2023 Noted [...] As Of Date 05/24/2023 Noted Resolved diabetes [[id number]] 05/17/2023 Neuropathy [G62.9] Hallux extensus, acquired [M20.5X9] [...] Encounter Status:Closed by BRIGETTE STALLWORTH on 05/24/23 [facility] 05-23-2023 JOSE ALBERTO Telephone (MAHESH) MARIE SEXTON ([id number]) 1960 F Date Time Provider Department 05/23/23 KAYLYN LONDON During your visit today, we recorded the following information about you: Kaylyn London APRN.ROBOT OPERATOR 05/23/2023 9:41 AM Signed Attempted to call pt to check on status of CADD pump. No answer, left detailed VM. Kaylyn London APRN.ROBOT OPERATOR Allergies As of Date: 05/23/2023 Noted [...] As Of Date 05/23/2023 Noted Resolved diabetes [[id number]] 05/17/2023 Neuropathy [G62.9] Hallux extensus, acquired [M20.5X9] [...] Encounter Status:Closed by KAYLYN LONDON on 05/23/23 [facility] MARIE SEXT[facility] ([id number]) 1960 F Date Time Provider Department 05/19/23 BRIGETTE STALLWORTH FVFOPR During your visit today, we recorded the following information about you: Brigette Stallworth RN 05/19/2023 3:16 PM Signed Pt is POD# 2. S/P Right Leg removal of deep hardware Right Ankle fusion Right subtalar joint fusion Fibular osteotomy right ankle [place] of bone marrow autograft right leg with [...] Mara Stallworth RN Acute Pain Management Service [facility] Allergies As of Date: 05/19/2023 Noted [...] As Of Date 05/19/2023 Noted Resolved diabetes [[id number]] 05/17/2023 Neuropathy [G62.9] Hallux extensus, acquired [M20.5X9] [...] Encounter Status:Closed by BRIGETTE STALLWORTH on 05/19/23 [facility] CONSULT PROGon 05-18-2023 CONSULT PROG HNO ID: [id number] Author: Donell Khoury PA-C Service: Pain Management Author Type: Physician Financial Compliance Examiner Type: Consult Progress Note Filed: 05/18/2023 8:35 AM Note Text: PERIPHERAL NERVE CATHETER PROGRESS NOTE PATIENT NAME: Marie Sexton SERVICE DATE: 05/18/2023 SERVICE TIME: 7:28 AM ASSESSMENT Marie Sexton is a 63 year old female who is POD# 1 Right Leg removal of deep hardware Right Ankle fusion Right subtalar joint fusion Fibular osteotomy right ankle [place] of bone marrow autograft right leg Patient reports good pain control 6/[address]. Adductor canal and Popliteal PNC running per CADD 0.2% @ 04/18/30. Dilaudid PRN and Roxicodone on board minimal usage with PNC in place. PLAN Continue current pain regimen, will follow. Patient with CADD pumps in place patient may go home with PNC in place and [employer] will call patient daily. SUBJECTIVE CHIEF COMPLAINT: Marie Sexton is a 63 year old female who is POD# 1 Right Leg removal of deep hardware Right Ankle fusion Right subtalar joint fusion Fibular osteotomy right ankle [place] of bone marrow autograft right leg PRIMARY [...] which included preparing to see the patient, [id number] patient care, completing clinical documentation, obtaining and/or reviewing separately obtained history, performing a medically appropriate examination, counseling and educating the patient/family/caregive r, and communicating results to the patient/family/caregive r. SIGNATURE: Donell Khoury PA-C PATIENT NAME: Marie Sexton DATE: May 18, 2023 TIME: 7:28 AM PAGER/CONTACT #: [facility] [phone] [facility] HISTORY PHYSICALon HISTORY PHYSICAL HNO ID: [id number] Author: Alannah Whiteside MD Service: Hospital Medicine Author Type: Physician Type: HANDP Filed: 05/17/2023 10:51 PM Note Text: Hospital Medicine Consult History and Physical PRIMARY SERVICE: HOSPITAL MEDICINE Days: [facility] pager Evenings: [facility] pager [phone] PATIENT NAME: Marie Sexton DATE of SERVICE: [...] subtalar joint fusion Fibular osteotomy right ankle [place] of bone marrow autograft right leg SOCIAL [...] TIME: 10:50 PM Discussed with: Patient Normal [facility] ANES POSTPROC EVALon 023 ANES POSTPROC EVAL HNO ID: [id number] Author: Amelia Camara MD Service: Critical Care Author Type: Anesthesiologist Type: Anesthesia Postprocedure Evaluation Filed: 05/17/2023 3:32 PM Note Text: POST ANESTHESIA EVALUATION NOTE : 1960 Procedure Summary Date: 05/17/23 Room / Location: OR08 / [facility] OR Anesthesia Start: 0756 Anesthesia [...] May 17, 2023 TIME: 3:32 PM CSN: [id number] [facility] ANES PRE-OPon 05-17-2023 ANES PRE-OP HNO ID: [id number] Author: SÁNCHEZ Junior Service: Critical Care Author Type: Edge Inker Heels Type: Anesthesia Preprocedure Evaluation Filed: 05/17/2023 8:12 [...] Ankle) - POPLITEAL BLOCK Isto Bone graft; Marshall TTC Nail and headless 6.5 and 5.5 screws; [employer] Large screw removal (5.0, 6.5) Isto confirmed by José Miguel Bridges - kf 05/11 Marshall confirmed with Og Trevino - milena 05/11 [...] Units by INJECTION(UNSPECIFI (more content not included)... [facility] BRIEF OP NOTon 05-17-2023 BRIEF OP NOT HNO ID: [id number] Author: Macario Santos DPM Service: Podiatry Author Type: Physician Type: Brief Op Note Filed: 05/17/2023 10:59 AM Note Text: PODIATRIC SURGERY BRIEF OPERATIVE NOTE LOG ID: [id number] Surgery/Procedure Date: 05/17/2023 Incision/Procedure Start Time: 8:25 AM Incision Close/Procedure End Time: Surgeon(s)/Proceduralis t(s) and Financial Compliance Examiner(s): Surgeon(s) and Role: * Macario Santos DPM - Primary Physician Financial Compliance Examiner: Leslie Teresa PA-C Procedure(s): Right Leg removal of deep hardware Right Ankle fusion Right subtalar joint fusion Fibular osteotomy right ankle [place] of bone marrow autograft right leg Anesthesia: General Findings: Well aligned rearfoot Estimated Blood Loss: 100 mls Specimens: None Complications: NONE Pre-Op/Pre-Procedure Diagnosis: Right foot hardware failure Right ankle instability Right rearfoot arthritis Post-Op/Post-Procedure Diagnosis: SAME SIGNATURE: Macario Santos DPM PATIENT NAME: Marie Sexton DATE: May 17, 2023 TIME: 10:57 AM PAGER/CONTACT #: [phone] (Pager/Cell) [facility] NURSING PROGon 05-17-2023 NURSING PROG HNO ID: [id number] Author: Francesca Young RN Service: Nursing Author Type: Registered Nurse Type: Nursing Progress Note Filed: 05/17/2023 3:34 PM Note Text: This nurse helped patient to restroom. Took bed close to the bathroom and with assistance helped her to the bathroom with a walker (2 person assist). [facility] NURSING PROG HNO ID: [id number] Author: Francesca Young RN Service: Nursing Author [...] overnight. He is putting orders in now. [facility] NURSING PROG HNO ID: [id number] Author: Melodie Lorenzo RN Service: Nursing Author Type: Registered Nurse Type: Nursing Progress Note Filed: 05/17/2023 12:58 PM Note Text: Patient expressing concerns about going home since she lives alone. I spoke with her daughter Jennifer and she stated that between her, her sister Brigette and Marie sister they are available to help her. Jennifer also stated that Marie becomes very emotional after anesthesia and she is certain she will be okay at home. [facility] NURSING PROG HNO ID: [id number] Author: Brigette Stallworth RN Service: Pain Management Author Type: Registered Nurse Type: Nursing Progress Note Filed: 05/17/2023 7:24 AM Note Text: RIGHT popliteal nerve block with catheter RIGHT adductor nerve block with catheter Dr. Smith and Dr. Barbour Patient verbalized understanding of nerve block procedure. [facility] NURSING PROG HNO ID: [id number] Author: Gracie Abraham RN Service: Nursing Author Type: Registered Nurse Type: Nursing Progress Note Filed: 05/17/2023 6:24 AM Note Text: PATIENT EDUCATION TOPIC: PROCEDURE / SURGERY: Pre-op Teaching: Logistics Protocols PATIENT NAME: Marie Sextno PATIENT LOCATION: Room/bed info not found READINESS [...] (RECOMMENDATION): None Electronically Signed By: Gracie Abraham [facility] OPERATIVE NOon 05-17-2023 OPERATIVE NO HNO ID: [id number] Author: Macario Santos DPM Service: Podiatry Author Type: Physician Type: Operative Report Filed: 05/17/2023 1:58 PM Note Text: SURGERY OPERATIVE NOTE LOG ID: [id number] Surgery/Procedure Date: 05/17/2023 Incision/Procedure Start Time: 8:25 AM Incision Close/Procedure End Time: 11:33 AM Surgeon(s)/Proceduralis t(s) and Financial Compliance Examiner(s): Surgeon(s) and Role: * Macario Santos DPM - Primary Physician Financial Compliance Examiner: Leslie Teresa PA-C PRE-OP/PRE-PROCEDURE DIAGNOSIS: Right foot hardware failure Right ankle instability Right rearfoot arthritis POST-OP/POST-PROCEDURE DIAGNOSIS: Same as Pre-Op SURGERY/PROCEDURE(S): Right Leg removal of deep hardware Right Ankle fusion Right subtalar joint fusion Fibular osteotomy right ankle [place] of bone marrow autograft right leg Application of posterior splint right leg ANESTHESIA: General HEMOSTASIS: Thigh tourniquet set at 300 mmHg ESTIMATED BLOOD LOSS: 150 mls MATERIALS: Marshall tibial nail INDICATIONS: This 63 year old [...] then performed. Once this was completed the Marshall nail was placed into the leg and [...] available to assist. (more content not included)... [facility] XR ANKLE 2V AP/LAT RTon XR ANKLE 2V AP/LAT RT * * *Final Report* * * DATE OF EXAM: May 17 2023 10:49AM [facility] 5576 - XR ANKLE 2V AP/LAT [...] for right ankle arthrodesis performed by Dr. SORTO CLOUGHERTY. 2:55 minutes:seconds of fluoroscopy time was utilized. 6 images were obtained. Images demonstrate ankle and hindfoot arthrodesis in progress including talocalcaneal screw exchange, distal fibular resection, retrograde tibial-calcaneal locked medullary nail placement Please see procedure report for complete details. Juvenile Officer: SUBHASH Transcribe Date/Time: May 17 2023 2:29P Dictated by : MIGUEL HERNANDEZ MD This examination was interpreted and the report reviewed and electronically signed by: MIGUEL HERNANDEZ MD on May 17 2023 2:33PM EST [id number] [facility] NM CARDIAC PERF STRESS/PHARM on 05-14-2023 NM CARDIAC PERF STRESS/PHARM * * *Final Report* * * DATE OF EXAM: May 14 2023 2:02PM [facility] 0006 - NM CARDIAC PERF STRESS/PHARM / PROCEDURE REASON: Preoperative cardiovascular examination * * * * Physician Interpretation * * * * Stress Cross Tie Maker Report: [place] [address] Date of service: 05/14/2023 12:27:48 PM Supervising [...] later. See administered radiotracer and doses below. [facility] Date of service: 05/14/2023 12:27:48 PM [...] * * * ---- NM CTAC Report: [facility] Date of service: 05/14/2023 12:27:48 PM CTAC interpreting physician: Patrice Dalton MD PATIENT: Name: MARIE SEXTON Age: 63 years Gender: F 1. Incidental Findings from limited non-diagnostic CTAC: - Coronary calcifications visualized. * * * Final * * * ---- Stress ECG Report: [facility] Date of service: 05/14/2023 12:27:48 PM Ordering physician: DANA GOYAL senior talent acquisition specialist: Rosina Gonzalez Financial Compliance Examiner: Prem Shields Fellow: Annabelle Woodard MD and [...] 51% of (more content not included)... Normal [facility] PVR ANK/VILCHIS/TOE FRANCESCO VAS LAB on 05-14-2023 PVR ANK/VILCHIS/TOE FRANCESCO VAS LAB Non-Invasive Vascular Laboratory [facility] F30 Lower Extremity Arterial Physiology Study [...] physician: Casie Moore MD, CYNTHIA Final CC OrderWithMe Medical Image : [id number] oDynamicsSISUID See Link below for Image Normal [facility] LEG ARTERIAL PERIPH FRANCESCO V LABon 05-14-2023 LEG ARTERIAL PERIPH FRANCESCO VAS LAB Non-Invasive Vascular Laboratory [facility] F30 Lower Extremity Arterial Duplex Bilateral/Complete [...] T Ordering physician: DANA GOYAL Interpreting physician: Csaie Moore MD, RPJAMAICA Final CC [employer] Medical Image : [id number]. (more content not included)... Normal [facility] HISTORY PHYSICALon HISTORY PHYSICAL HNO ID: [id number] Author: Indiana Clemens PA-C Service: ? Author Type: Physician Financial Compliance Examiner Type: HANDP Filed: 05/14/2023 4:12 PM Note [...] 160-4.5 mcg/actuati (more content not included)... Normal [facility] CNOVon 05-07-2023 CNOV Office Visit (CARINF ) DARSHANMARIE Parks ([id number]) 1960 F Date Time Provider Department 05/07/23 2:00 PM DANA GOYAL During your visit today, we recorded the following information about you: Pulse Blood pressure 68/minute 120/66 Dana Goyal MD 05/07/2023 3:11 PM Signed Heart, Vascular and Thoracic [facility] Natalia Shrestha Department of Cardiovascular Medicine SECTION OF INTERVENTIONAL CARDIOLOGY OUTPATIENT VISIT DATE 05/07/2023 OUTPATIENT VISIT TYPE New PRIMARY CARE PHYSICIAN: Collins Andrews ([facility]) [address] [place] [address] REFERRING PHYSICIAN: No referring provider defined for [...] meals. hydrochlorothiazide (more content not included)... Normal [facility] [id number] 05-07-2023 ECG01 Ventricular Rate : 6 8 BPM Atrial Rate : 68 BPM P-R Interval : 156 ms QRS Duration : 74 ms Q-T Interval : 394 ms QTC Calculation(Bazett) : 418 ms Calculated P [place] : 55 degrees Calculated R [place] : 52 degrees Calculated T [place] : 64 degrees NORMAL SINUS RHYTHM NORMAL ECG Confirmed by MOIZ MAHER MD ([id number]) on 05/17/2023 10:36:53 AM NAME : MARIE SEXTON PID : [id number] : 1960 Gender : Female Race : [...] : , Acquired by : , Eusebio [facility] Bimal 05-05-2023 CNPN Telephone (ORFWHP) DARSHANMARIE TRINIDAD ([id number]) 1960 F Date Time Provider Department 05/05/23 [facility] During your visit today, we recorded the following information about you: Pennie Quezada Pss 05/05/2023 1:47 PM Signed supervisor shuttle veneering spoke to patient with her daughter(Jennifer) regarding [...] As Of Date 05/05/2023 Noted Resolved diabetes [ZOI3343] Neuropathy [G62.9] Hallux extensus, acquired [M20.5X9] HTN (hypertension) [I10] IBS (irritable bowel syndrome) [K58.9] Arthritis [M19.90] Diabetic foot ulcer [E11.621, L97.509] 12/21/2013 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 Normal [facility] 04-22-2023 CNOV Office Visit (JAE ) MARIE SEXTON ([id number]) 1960 F Date Time Provider Department 04/22/23 [...] numbness o (more content not included)... Normal [facility] CT ANKLE WO IVCON RIGHTon [facility] CT ANKLE WO IVCON RTon 04-22 CT ANKLE WO IVCON RT * * *Final Report* * * DATE OF EXAM: Apr 22 2023 3:55PM [facility] 0061 - CT ANKLE WO IVCON RT [...] the right foot and ankle as described. Juvenile Officer: PSCB Transcribe Date/Time: Apr 22 2023 4:18P Dictated by : COLLINS BENJAMIN MD This examination was interpreted and the report reviewed and electronically signed by: COLLINS BENJAMIN MD on Apr 22 2023 4:22PM EST [id number] Normal [facility] XR ANKLE 3V AP/LAT/OBL RTon 04-22-2023 [...] the hindfoot and midfoot without complication identified. Juvenile Officer: [facility]ITAL[facility] Transcribe Date/Time: Apr 23 2023 4:47P Dictated by : RAMIRO PAEZ MD This examination was interpreted and the report reviewed and electronically signed by: RAMIRO PAEZ MD on Apr 23 2023 6:26PM EST [id number] Normal [facility] XR TIBIA FIBULA 2V AP/LAT LT [...] for the characterization as clinically determined. . Juvenile Officer: SUBHASH Transcribe Date/Time: Apr 23 2023 4:49P Dictated by : RAMIRO PAEZ MD This examination was interpreted and the report reviewed and electronically signed by: RAMIRO PAEZ MD on Apr 23 2023 6:29PM EST [id number] Normal [facility] GLUCOSE-POCTon 03-22-2023 Glucose [Mass/Vol] 100 mg/dL High 74 - 99 [facility] Comment on above: Performed By: #### G JONATHAN #### [facility] [address] [place] [address] Glucose Test strip manual (B ld) [Mass/Vol]on 03-22-2023 Glucose [Mass/Vol] 100 mg/dL High 74 - 99 mg/dL [facility] Interpretation and review of laboratory results [facility] Order Reconciliationon 03-22 Order Reconciliation Page [...] continued as multivitamin Multiple Vitamins oral tablet [place]-3 1000 mg oral capsule 1 cap(s) oral twice a day 01-Jun-2022 11:21 [place]-3 1000 mg oral capsule 1 cap(s) oral twice a day 01-Jun-2022 11:21 [place]-3 1000 mg oral capsule is continued as [place]-3 1000 mg oral capsule turmeric 500 mg [...] gram/ D (more content not included)... Normal [facility] RF Unspecified body region L ess than 1 hour Views during surgeryon 03-22-2023 RIS LEGACY CONVERSIONS Conversion, Ge Radiology - 05/21/2023 [facility] Work Phone: Radiology Study observation (narrative) [facility] Work Phone: RF Unspecified body region L ess than 1 hour Views during surgeryOrdered By: Ge Conversion on 03-22-2023 [facility] Patient Profile - Preop v3on 03-19-2023 Patient Profile - Preop v3 Patient Profile - Preop: Initial Info: Patient DemographicsName: MARIE SEXTON Date: 1960 Address: [address] [place] [address] Date/Time [id number] 13:05 Primary Phone [phone] Instructions Givenappropriate clothing, bring responsible adult as the retail delivery driver (procedure may be cancelled if no retail delivery driver), center location, remove jewerly/piercings, time to [...] Reactionnot applicable Health Mgmt: [facility] Barriers to Managing Healthnone Relationship/Environ: Lives Withalone Living Arrangementshouse Resource/Environmental Concernsnone Anticipated Transition Topender Services Anticipated at Transitionnone Tobacco Use: Tobacco Useno Pre-op Checklist: Arrival [id number] Arrival Time11:24 Procedure TypeRIGHT ANKLE SUBLUXATION REPAIR/ HARDWARE REMOVAL/ CALCANEAL OSTEOTOMY/ SKIN FLAP CLOSURE WITH C-ARM NPOyes Last Food [id number] 21:00 Last Clear Fluid [id number] 10:00 ID Band On Patientpatient ID (name), [...] Updated: 22-Mar-2023 11:50 by Christopher Caceres) Normal [facility] CBC AND DIFFERENTIALon 03-17 % AUTOMATED IMMATURE GRAN 0.4 % Normal 0.0 - 0.9 [facility] Comment on above: Result Comment: Coni ture Granulocyte Count (IG) includes promyelocytes, myelocytes and metamyelocytes but does not include bands. Percent differential counts (%) should be interpreted in the context of the absolute cell counts (cells/L). Performed By: #### C BCDF ####[facility] [place] [address] Basophils (Bld) [#/Vol] 0.05 10*3/uL Normal 0.00 - 0.10 [facility] Comment on above: Performed By: #### C BCDF ####[facility] [place] [address] Basophils/100 WBC (Bld) 0.6 % Normal 0.0 - 2.0 [facility] Comment on above: Performed By: #### C BCDF ####[address] [place] [address] Eosinophils (Bld) [#/Vol] 0.23 10*3/uL Normal 0.00 - 0.70 [facility] Comment on above: Performed By: #### C BCDF ####[address] [place] [address] Eosinophils/100 WBC (Bld) 2.9 % Normal 0.0 - 6.0 [facility] Comment on above: Performed By: #### C BCDF ####[address] [address] Erythrocyte distribution width (RBC) [Ratio] 12.3 % Normal 11.5 - 14.5 [facility] Comment on above: Performed By: #### C BCDF ####[address] [address] Hematocrit (Bld) [Volume fraction] 40.1 % Normal 36.0 - 46.0 [facility] Comment on above: Performed By: #### C BCDF ####[address] [address] Hemoglobin (Bld) [Mass/Vol] 13.5 g/dL Normal 12.0 - 16.0 [facility] Comment on above: Performed By: #### C BCDF ####[address] [address] Lymphocytes (Bld) [#/Vol] 3.98 10*3/uL Normal 1.20 - 4.80 [facility] Comment on above: Performed By: #### C BCDF ####[address] [place] [address] Lymphocytes/100 WBC (Bld) 50.5 % Normal 13.0 - 44.0 [facility] Comment on above: Performed By: #### C BCDF ####[address] [address] MCHC (RBC) [Mass/Vol] 33.7 g/dL Normal 32.0 - 36.0 [facility] Comment on above: Performed By: #### C BCDF ####[address] [place] [address] MCV (RBC) [Entitic vol] 92 fL Normal 80 - 100 [facility] Comment on above: Performed By: #### C BCDF ####[address] [place] [address] Monocytes (Bld) [#/Vol] 0.53 10*3/uL Normal 0.10 - 1.00 [facility] Comment on above: Performed By: #### C BCDF ####[address] [place] [address] Monocytes/100 WBC (Bld) 6.7 % Normal 2.0 - 10.0 [facility] Comment on above: Performed By: #### C BCDF ####[address] [address] Neutrophils (Bld) [#/Vol] 3.06 10*3/uL Normal 1.20 - 7.70 [facility] Comment on above: Performed By: #### C BCDF ####[address] [place] [address] Neutrophils/100 WBC (Bld) 38.9 % Normal 40.0 - 80.0 [facility] Comment on above: Performed By: #### C BCDF ####[address] [address] NUCLEATED RBC 0.0 /100 WBC Normal 0.0 - 0.0 [facility] Comment on above: Performed By: #### C BCDF ####[address] [place] [address] Platelets (Bld) [#/Vol] 297 10*3/uL Normal 150 - 450 [facility] Comment on above: Performed By: #### C BCDF ####[address] [place] [address] RBC 4.36 x10E12/L Normal 4.00 - 5.20 [facility] Comment on above: Performed By: #### C BCDF ####[address] [place] [address] WBC (Bld) [#/Vol] 7.9 10*3/uL Normal 4.4 - 11.3 [facility] Comment on above: Performed By: #### C BCDF ####[facility] [place] [address] ALBUMIN, URINE SPOTon 2022 ALBUMIN,URINE <7.0 Normal Not Established [facility] Comment on above: Performed By: #### C OVSC #### [facility] [address] [place] [address] ALBUMIN/CREAT RATIO SEE COMMENT Normal 0.0 - 30.0 [facility] Comment on above: Result Comment: One or more analytes used in this calculation is outside of the analytical measurement range. Calculation cannot be performed. Performed By: #### C OVSC #### [facility] [address] [place] [address] CREATININE,URINE 56.3 mg/dL Normal 20.0 - 320.0 [facility] Comment on above: Performed By: #### C OVSC #### [facility] [address] [place] [address] ALBUMIN, URINE SPOTon 2022 ALBUMIN,URINE Canceled Normal [facility] Comment on above: Order Comment: TEST ALBUMIN, URINE SPOT WAS CANCELLED, 02/02/2023 10:27 not collected. Performed By: #### A LBSP #### [facility] [address] [place] [address] ALBUMIN/CREAT RATIO Canceled Normal [facility] Comment on above: Order Comment: TEST ALBUMIN, URINE SPOT WAS CANCELLED, 02/02/2023 10:27 not collected. Performed By: #### A LBSP #### [facility] [address] [place] [address] CREATININE,URINE Canceled Normal [facility] Comment on above: Order Comment: TEST ALBUMIN, URINE SPOT WAS CANCELLED, 02/02/2023 10:27 not collected. Performed By: #### A LBSP #### [facility] [address] [place] [address] COMPREHENSIVE PANELon 2022 Albumin [Mass/Vol] 4.6 g/dL Normal 3.4 - 5.0 [facility] Comment on above: Performed By: #### C MP #### [address] [address] ALP [Catalytic activity/Vol] 42 U/L Normal 33 - 136 [facility] Comment on above: Performed By: #### C MP #### [address] [address] ALT [Catalytic activity/Vol] 28 U/L Normal 7 - 45 [facility] Comment on above: Result Comment: Shaista ents treated with Sulfasalazine may generate falsely decreased results for ALT. Performed By: #### C MP #### [address] [address] Anion gap [Moles/Vol] 13 mmol/L Normal 10 - 20 [facility] Comment on above: Performed By: #### C MP #### [address] [address] AST [Catalytic activity/Vol] 20 U/L Normal 9 - 39 [facility] Comment on above: Performed By: #### C MP #### [address] [address] Bilirubin [Mass/Vol] 0.3 mg/dL Normal 0.0 - 1.2 [facility] Comment on above: Performed By: #### C MP #### [address] [address] Calcium [Mass/Vol] 10.0 mg/dL Normal 8.6 - 10.3 [facility] Comment on above: Performed By: #### C MP #### [address] [place] [address] Chloride [Moles/Vol] 103 mmol/L Normal 98 - 107 [facility] Comment on above: Performed By: #### C MP #### [address] [place] [address] Creatinine [Mass/Vol] 1.25 mg/dL High 0.50 - 1.05 [facility] Comment on above: Performed By: #### C MP #### [address] [place] [address] GFR/1.73 sq M.predicted among non-blacks MDRD (S/P/Bld) [Vol rate/Area] 49 mL/min/{1.73_m2} Abnormal >90 [facility] Comment on above: Result Comment: CALC ULATIONS OF ESTIMATED GFR ARE PERFORMED USING THE 2020 CKD-EPI STUDY REFIT EQUATION WITHOUT THE RACE VARIABLE FOR THE IDMS-TRACEABLE CREATININE METHODS. https://jasn.asnjournals.org/content/early//ASN.3017178 988 Performed By: #### C MP #### [address] [place] [address] Glucose [Mass/Vol] 76 mg/dL Normal 74 - 99 [facility] Comment on above: Performed By: #### C MP #### [address] [place] [address] HCO3 (Bld) [Moles/Vol] 28 mmol/L Normal 21 - 32 [facility] Comment on above: Performed By: #### C MP #### [address] [place] [address] Potassium [Moles/Vol] 3.9 mmol/L Normal 3.5 - 5.3 [facility] Comment on above: Performed By: #### C MP #### [address] [place] [address] Protein [Mass/Vol] 7.4 g/dL Normal 6.4 - 8.2 [facility] Comment on above: Performed By: #### C MP #### [address] [place] [address] Sodium [Moles/Vol] 140 mmol/L Normal 136 - 145 [facility] Comment on above: Performed By: #### C MP #### [address] [place] [address] Urea nitrogen [Mass/Vol] 24 mg/dL High 6 - 23 [facility] Comment on above: Performed By: #### C MP #### [address] [place] [address] HEMOGLOBIN A1Con 03-21-2023 Glucose [Mass/Vol] 137 mg/dL Normal [facility] Comment on above: Performed By: #### H BA1E #### [facility] [address] [place] [address] HbA1c (Bld) [Mass fraction] 6.4 % Abnormal [facility] Comment on above: Result Comment: Diag nosis of Diabetes-Adults Non-Diabetic: < or = 5.6% Increased risk for developing diabetes: 5.7-6.4% Diagnostic of diabetes: > or = 6.5% . Monitoring of Diabetes Age (y) Therapeutic Goal (%) Adults: >18 <7.0 Pediatrics: 13-18 <7.5 7-12 <8.0 0- 6 7.5-8.5 [employer]. Diabetes Care 33(S1), Nov 2009. Performed By: #### H BA1E #### [facility] [address] [place] [address] TSHon 02-02-2023 TSH Qn 1.56 m[IU]/L Normal 0.44 - 3.98 [facility] Comment on above: Result Comment: TSH testing is performed using different testing methodology at [facility] than at other [facility]. Direct result comparisons should only be made within the same method. Performed By: #### T SH2 #### [facility] [address] [place] [address] VITAMIN D, 25-HYDROXYon 01-14 VITAMIN D, 25-HYDROXY 49 ng/mL Normal [facility] Comment on above: Result Comment: . DEFICIENCY: < 20 NG/ML INSUFFICIENCY: 20-29 NG/ML SUFFICIENCY: 30-100 NG/ML THIS ASSAY ACCURATELY QUANTIFIES THE SUM OF VITAMIN D3, 25-HYDROXY AND VIT D2,25-HYDROXY. Performed By: #### C OVSC #### [facility] [address] [place] [address] GLUCOSE-POCTon 01-08-2023 Glucose [Mass/Vol] 92 mg/dL Normal 74 - 99 [facility] Comment on above: Performed By: #### G JONATHAN ####[facility] [place] [address] Operative Reports - Jing 01-08-2023 Operative Reports - Olivia SURGEON: Fang Rodriguez DPM LEGAL ANALYST: Buzz Dexter, PGY-3. PREOPERATIVE DIAGNOSES: 1. Hardware [...] LOSS: Less than 100 mL. MATERIALS USED: Engadine Vitoss and BIO4 bone graft substitute augment Jan dorsal 3.5 locking plate. 7-0 and 5-0 [...] Charcot neuroarthropat (more content not included)... Normal [facility] Order Reconciliationon 01-08 Order Reconciliation Page 1 Discharge Reconciliation Document Reconciliation Type: Discharge requested on behalf of Fang Rodriguez (Physician) done by Fang Rodriguez (DPMariam) Discharge - Reconciliation: 08-Jan-2023 12:56 by: Fang [...] continued as multivitamin Multiple Vitamins oral tablet [place]-3 1000 mg oral capsule 1 cap(s) oral twice a day 01-Jun-2022 11:21 [place]-3 1000 mg oral capsule 1 cap(s) oral twice a day 01-Jun-2022 11:21 [place]-3 1000 mg oral capsule is continued as [place]-3 1000 mg oral capsule turmeric 500 mg [...] tablet is (more content not included)... Normal [facility] Surgical Pathology Depar tmenton 01-08-2023 [facility] Surgical Pathology Department Name MARIE SEXTON. [...] reviewed this case. Diagnostic interpretation performed at [place] [address] Clinical History: Contracture of joint of both [...] largest piece is inscribed with MED[employer]APE REF [id number] 07MM X 80M. Additionally received is a blue-canales metal U-shaped piece of hardware with the inscription of [id number]. Soft tissue is not received the specimen. A photograph is been taken. The specimen is for gross examination only. MJR mjr/01/09/2023 [facility] Department of Pathology [address] [place] [address] Normal [facility] Comment on above: Performed By: #### C OVSC #### [place] [address] Patient Profile - Preop v3on 01-07-2023 Patient Profile - Preop v3 Patient Profile - Preop: Initial Info: Patient DemographicsName: DARSHAN MARIE A Date: 1960 Address: [facility] [place] [address] Date/Time [id number] 12:31 Primary Phone [phone] Call Attemptedattempt 1 Instructions Giventime to arrive [...] Reactionnot applicable Health Mgmt: [facility] Barriers to Managing Healthnone Relationship/Environ: Lives Withalone Living Arrangementshouse Resource/Environmental Concernsnone Anticipated Transition Topender Services Anticipated at Transitionnone Tobacco Use: Tobacco Useno Pre-op Checklist: Arrival [id number] Arrival Time08:58 Procedure TypeRIGHT GASTROCNEMIUS RECESSION/ SUBTALAR JOINT & MIDFOOT FUSION/ TIBIA PARTIAL EXCISION WITH C-ARM RIGHT FOOT DJO HARDWARE REMOVAL NPOyes Last Food [id number] 20:30 Last Clear Fluid [id number] 07:45 ID Band On Patientpatient ID (name), allergy, falls risk Consent Signedyes Anesthesia Assessment Completedyes EKG Performedsee results tab Chest X-Ray Performednot ordered Preop Antibioticssent to OR Beta-vita CommentN/A COVID 19 Results in Last 7 daysN/A Glucose Hcgrmg56 Type and Screen Resultedn/a HCG Urine TestN/A [...] 08-Jan-2023 09:18 by Christopher Caceres (RN) Normal [facility] BASIC METABOLIC PANELon 02-2 Anion gap [Moles/Vol] 11 mmol/L Normal 10 - 20 [facility] Comment on above: Performed By: #### B MP #### [address] [address] Calcium [Mass/Vol] 9.9 mg/dL Normal 8.6 - 10.3 [facility] Comment on above: Performed By: #### B MP #### [address] [address] Chloride [Moles/Vol] 103 mmol/L Normal 98 - 107 [facility] Comment on above: Performed By: #### B MP #### [address] [address] Creatinine [Mass/Vol] 1.01 mg/dL Normal 0.50 - 1.05 [facility] Comment on above: Performed By: #### B MP #### [address] [address] GFR/1.73 sq M.predicted among non-blacks MDRD (S/P/Bld) [Vol rate/Area] 63 mL/min/{1.73_m2} Normal >90 [facility] Comment on above: Result Comment: CALC ULATIONS OF ESTIMATED GFR ARE PERFORMED USING THE 2020 CKD-EPI STUDY REFIT EQUATION WITHOUT THE RACE VARIABLE FOR THE IDMS-TRACEABLE CREATININE METHODS. https://jasn.asnjournals.org/content/early/ASN.3049060 988 Performed By: #### B MP #### [address] [address] Glucose [Mass/Vol] 120 mg/dL High 74 - 99 [facility] Comment on above: Performed By: #### B MP #### [address] [address] HCO3 (Bld) [Moles/Vol] 30 mmol/L Normal 21 - 32 [facility] Comment on above: Performed By: #### B MP #### [facility] [address] [place] [address] Potassium [Moles/Vol] 4.7 mmol/L Normal 3.5 - 5.3 [facility] Comment on above: Performed By: #### B MP #### [address] [address] Sodium [Moles/Vol] 139 mmol/L Normal 136 - 145 [facility] Comment on above: Performed By: #### B MP #### [address] [address] Urea nitrogen [Mass/Vol] 23 mg/dL Normal 6 - 23 [facility] Comment on above: Performed By: #### B MP #### [address] [address] CBC AND DIFFERENTIALon 01-05 % AUTOMATED IMMATURE GRAN 0.2 % Normal 0.0 - 0.9 [facility] Comment on above: Result Comment: Coni ture Granulocyte Count (IG) includes promyelocytes, myelocytes and metamyelocytes but does not include bands. Percent differential counts (%) should be interpreted in the context of the absolute cell counts (cells/L). Performed By: #### C BCDF ####[address] [address] Basophils (Bld) [#/Vol] 0.05 10*3/uL Normal 0.00 - 0.10 [facility] Comment on above: Performed By: #### C BCDF ####[facility] [place] [address] Basophils/100 WBC (Bld) 0.6 % Normal 0.0 - 2.0 [facility] Comment on above: Performed By: #### C BCDF ####[address] [address] Eosinophils (Bld) [#/Vol] 0.24 10*3/uL Normal 0.00 - 0.70 [facility] Comment on above: Performed By: #### C BCDF ####[address] [place] [address] Eosinophils/100 WBC (Bld) 2.8 % Normal 0.0 - 6.0 [facility] Comment on above: Performed By: #### C BCDF ####[address] [place] [address] Erythrocyte distribution width (RBC) [Ratio] 12.8 % Normal 11.5 - 14.5 [facility] Comment on above: Performed By: #### C BCDF ####[address] [place] [address] Hematocrit (Bld) [Volume fraction] 41.1 % Normal 36.0 - 46.0 [facility] Comment on above: Performed By: #### C BCDF ####[address] [place] [address] Hemoglobin (Bld) [Mass/Vol] 13.8 g/dL Normal 12.0 - 16.0 [facility] Comment on above: Performed By: #### C BCDF ####[address] [address] Lymphocytes (Bld) [#/Vol] 3.56 10*3/uL Normal 1.20 - 4.80 [facility] Comment on above: Performed By: #### C BCDF ####[address] [place] [address] Lymphocytes/100 WBC (Bld) 41.4 % Normal 13.0 - 44.0 [facility] Comment on above: Performed By: #### C BCDF ####[address] [address] MCHC (RBC) [Mass/Vol] 33.6 g/dL Normal 32.0 - 36.0 [facility] Comment on above: Performed By: #### C BCDF ####[address] [place] [address] MCV (RBC) [Entitic vol] 90 fL Normal 80 - 100 [facility] Comment on above: Performed By: #### C BCDF ####[address] [address] Monocytes (Bld) [#/Vol] 0.61 10*3/uL Normal 0.10 - 1.00 [facility] Comment on above: Performed By: #### C BCDF ####[address] [address] Monocytes/100 WBC (Bld) 7.1 % Normal 2.0 - 10.0 [facility] Comment on above: Performed By: #### C BCDF ####[address] [address] Neutrophils (Bld) [#/Vol] 4.11 10*3/uL Normal 1.20 - 7.70 [facility] Comment on above: Performed By: #### C BCDF ####[address] [address] Neutrophils/100 WBC (Bld) 47.9 % Normal 40.0 - 80.0 [facility] Comment on above: Performed By: #### C BCDF ####[address] [address] NUCLEATED RBC 0.0 /100 WBC Normal 0.0 - 0.0 [facility] Comment on above: Performed By: #### C BCDF ####[address] [address] Platelets (Bld) [#/Vol] 287 10*3/uL Normal 150 - 450 [facility] Comment on above: Performed By: #### C BCDF ####[address] [address] RBC 4.58 x10E12/L Normal 4.00 - 5.20 [facility] Comment on above: Performed By: #### C BCDF ####[address] [address] WBC (Bld) [#/Vol] 8.6 10*3/uL Normal 4.4 - 11.3 [facility] Comment on above: Performed By: #### C BCDF ####[address] [address] Electrocardiogram 12 Leadon 01-05-2023 Electrocardiogram 12 Lead Ventricular Rate 69 Atrial Rate 69 P-R Interval 144 QRS Duration 70 Q-T Interval 396 QTC Calculation(Bazett) 424 P Virgilina 60 R Virgilina 41 T Virgilina 64 QRS Count 12 Q Onset 220 P Onset 148 P Offset 201 T Offset 418 QTC Fredericia 415 Diagnosis Class Normal Diagnosis Normal sinus rhythm Normal ECG When compared with ECG of 01-JUN-2022 11:38, No significant change was found Confirmed by Javed Bravo ([id number]) on 01/08/2023 3:39:12 PM Normal [facility] GLUCOSE-POCTon 08-21-2022 Glucose [Mass/Vol] 82 mg/dL Normal 74 - 99 [facility] Comment on above: Performed By: #### G JONATHAN #### [facility] [address] [place] [address] Operative Reports - [facility] 08-21-2022 Operative Reports - [place] SURGEON: Fang Rodriguez DPM LEGAL ANALYST: Darin Dawn, PGY-2. SECOND PLAY BACK OPERATOR: Sirena Oconnor, PGY-3. PREOPERATIVE DIAGNOSES: 1. [...] Adaptic, gauze, and a slightly compressive short-leg xgrdp-evq-hfel cast was then applied. The foot was held in dorsiflexed position at this time. The patient was then transferred to the PACU with vital signs stable and vascular status intact. COMPLICATIONS: Significant disease with tendon requiring cadaveric tendon to be used. SPECIMEN: None. Fang Rodriguez DPM EST EST DICTATION NUMBER: [id number] INTERNAL JOB NUMBER: [id number] Electronic Signatures: Fang Rodriguez) (Signed on 28-Aug-2022 08:37) Authored Unsigned, Draft (SYS GENERATED) (Entered on 22-Aug-2022 21:23) Entered Last Updated: 28-Aug-2022 08:37 by Fang Rodriguez) [facility] Order Reconciliationon 08-21 Order Reconciliation Page 1 [...] continued as multivitamin Multiple Vitamins oral tablet [place]-3 1000 mg oral capsule 1 cap(s) oral twice a day 01-Jun-2022 11:21 [place]-3 1000 mg oral capsule 1 cap(s) oral twice a day 01-Jun-2022 11:21 [place]-3 1000 mg oral capsule is continued as [place]-3 1000 mg oral capsule turmeric 500 mg [...] mg oral (more content not included)... Normal [facility] Patient Profile - Preop v3on 08-20-2022 Patient Profile - Preop v3 Patient Profile - Preop: Initial Info: Patient DemographicsName: DARSHAN April Date: 1960 Address: [address] [place] [address] [place] [address] Date/Time [id number] 11:43 Primary Phone [phone] Call Attemptedattempt 1 Instructions Giventime to arrive, insurance information, center location, bring responsible adult as the retail delivery driver (procedure may be cancelled if no retail delivery driver), remove jewerly/piercings, appropriate clothing Prep Instructions [...] Health: Weight in kg88 kilogram(s) Weight in dfa013 pound(s) Weight Methodstated Height in feet6 feet Height in inches0.95 inch(es) Height in cm185.2 centimeter(s) Height Methodstated BMI (kg/m2)25.656 square meter Patient or Family Member Reaction to Anesthesiano previous reaction Blood Avoidance/Restrictionsn one Previous Transfusion Reactionnot applicable Health Mgmt: [facility] Barriers to Managing Healthnone Relationship/Environ: Lives Withalone Living Arrangementshouse Resource/Environmental Concernsnone Anticipated Transition Topender Services Anticipated at Transitionnone Tobacco Use: Tobacco [...] 21-Aug-2022 10:45 by Sabrina Hopkins (RN) Normal [facility] CORONAVIRUS 2019, SCREEN ASY MPTOMATICon 08-13-2022 SARS-CoV-2 (COVID-19) RNA KING+probe Ql (Unsp spec) Not detected Normal Not Detected [facility] Comment on above: Result Comment: . This [...] patient management decisions. Fact sheet for providers: https://www.fda.gov/media/771591/download Fact sheet for patients: https://www.fda.gov/media/857706/download This test has received FDA Emergency Use Authorization (EUA) and has been verified by [facility] ([facility]). This test is only authorized for [...] complexity testing. Testing is performed in the [facility] laboratories located at [id number] [place] [address]. Performed By: #### C OVSC #### [facility] [id number] [place] [address]. [place] [id number] Covid 19 Resultson 2 SARS-CoV-2 (COVID-19) RNA [...] You may also be contacted by the [facility] to see if any of [...] or Naproxen (Aleve) can also be used. Yxjb-wec-uswdkoj cough and cold medicines can be used according to the instructions on the package. Some mggs-qhk-jjozopk medicines also contain acetaminophen. Make sure you [...] water are not available, use alcohol-based hand mechanical oxidizer. Avoid touching your eyes, nose, and mouth [...] chevy (more content not included)... Normal [facility] GLUCOSE-POCTon 08-13-2022 Glucose [Mass/Vol] 160 mg/dL High 74 - 99 [facility] Comment on above: Performed By: #### G JONATHAN #### [facility] [address] [place] [address] Operative Reports - [facility] 08-13-2022 Operative Reports - [place] SURGEON: Fang Rodriguez DPM PLAY BACK OPERATOR: Sirena Oconnor, PGY-3 PREOPERATIVE DIAGNOSES: 1. [...] identified and (more content not included)... Normal [facility] Order Reconciliationon 08-13 Order Reconciliation Page 1 Discharge Reconciliation Document Reconciliation Type: Discharge requested on behalf of Fang Rodriguez (Physician) done by Fang Rodriguez) Discharge - Partial Reconciliation: 13-Aug-2022 07:45 by: [...] disintegrating 1 cap(s) oral twice a day 18-Flaco-2022 11:18 biotin 5000 mcg oral tablet, disintegrating [...] continued as multivitamin Multiple Vitamins oral tablet [place]-3 1000 mg oral capsule 1 cap(s) oral twice a day 01-Jun-2022 11:21 [place]-3 1000 mg oral capsule 1 cap(s) oral twice a day 01-Jun-2022 11:21 [place]-3 1000 mg oral capsule is continued as [place]-3 1000 mg oral capsule turmeric 500 mg [...] tab(s) oral (more content not included)... Normal [facility] CORONAVIRUS 2019, SCREEN ASY MPTOMATICon 08-12-2022 Lab Specimen Source Nasal, Nasopharyngeal Normal [facility] Comment on above: Performed By: #### C OVSC #### [facility] [address] [address] [place] [id number] Patient Profile - Preop v3on 08-12-2022 Patient Profile - Preop v3 Patient Profile - Preop: Initial Info: Patient DemographicsName: MARIE SEXTON Date: 1960 Address: [address] [place] [address] [place] [address] Date/Time [id number]-[id number] 11:51 Primary Phone [phone] Call Attemptedattempt 1 Instructions Giventime to arrive [...] Reactionnot applicable Health Mgmt: [facility] Barriers to Managing Healthnone Relationship/Environ: Lives Withspouse Living Arrangementshouse Resource/Environmental Concernsnone Anticipated Transition Topender Services Anticipated at Transitionnone Tobacco Use: Tobacco Useno Pre-op Checklist: Arrival [id number] Arrival Time06:30 Procedure TypeRIGHT MIDFOOT FUSION/ REPAIR SUBLUXED TARSAL JOINT WITH C-ARM RIGHT FOOT HARDWARE REMOVAL NPOyes Last Food [id number] 22:30 Last Clear Fluid [id number] 22:30 ID Band On Patientpatient ID (name), [...] Updated: 13-Aug-2022 06:56 by Christopher Caceres) Normal [facility] CBC AND DIFFERENTIALon 08-10 % AUTOMATED IMMATURE GRAN 0.4 % Normal 0.0 - 0.9 [facility] Comment on above: Result Comment: Coni ture Granulocyte Count (IG) includes promyelocytes, myelocytes and metamyelocytes but does not include bands. Percent differential counts (%) should be interpreted in the context of the absolute cell counts (cells/L). Performed By: #### C BCDF #### [address] [address] Basophils (Bld) [#/Vol] 0.05 10*3/uL Normal 0.00 - 0.10 [facility] Comment on above: Performed By: #### C BCDF #### [address] [address] Basophils/100 WBC (Bld) 0.7 % Normal 0.0 - 2.0 [facility] Comment on above: Performed By: #### C BCDF #### [address] [address] Eosinophils (Bld) [#/Vol] 0.20 10*3/uL Normal 0.00 - 0.70 [facility] Comment on above: Performed By: #### C BCDF #### [address] [address] Eosinophils/100 WBC (Bld) 2.6 % Normal 0.0 - 6.0 [facility] Comment on above: Performed By: #### C BCDF #### [address] [address] Erythrocyte distribution width (RBC) [Ratio] 12.9 % Normal 11.5 - 14.5 [facility] Comment on above: Performed By: #### C BCDF #### [address] [address] Hematocrit (Bld) [Volume fraction] 38.5 % Normal 36.0 - 46.0 [facility] Comment on above: Performed By: #### C BCDF #### [address] [address] Hemoglobin (Bld) [Mass/Vol] 12.6 g/dL Normal 12.0 - 16.0 [facility] Comment on above: Performed By: #### C BCDF #### [address] [address] Lymphocytes (Bld) [#/Vol] 2.69 10*3/uL Normal 1.20 - 4.80 [facility] Comment on above: Performed By: #### C BCDF #### [address] [address] Lymphocytes/100 WBC (Bld) 35.6 % Normal 13.0 - 44.0 [facility] Comment on above: Performed By: #### C BCDF #### [address] [address] MCHC (RBC) [Mass/Vol] 32.7 g/dL Normal 32.0 - 36.0 [facility] Comment on above: Performed By: #### C BCDF #### [address] [address] MCV (RBC) [Entitic vol] 90 fL Normal 80 - 100 [facility] Comment on above: Performed By: #### C BCDF #### [address] [address] Monocytes (Bld) [#/Vol] 0.56 10*3/uL Normal 0.10 - 1.00 [facility] Comment on above: Performed By: #### C BCDF #### [address] [address] Monocytes/100 WBC (Bld) 7.4 % Normal 2.0 - 10.0 [facility] Comment on above: Performed By: #### C BCDF #### [address] [address] Neutrophils (Bld) [#/Vol] 4.02 10*3/uL Normal 1.20 - 7.70 [facility] Comment on above: Performed By: #### C BCDF #### [address] [address] Neutrophils/100 WBC (Bld) 53.3 % Normal 40.0 - 80.0 [facility] Comment on above: Performed By: #### C BCDF #### [address] [address] NUCLEATED RBC 0.0 /100 WBC Normal 0.0 - 0.0 [facility] Comment on above: Performed By: #### C BCDF #### [address] [address] Platelets (Bld) [#/Vol] 360 10*3/uL Normal 150 - 450 [facility] Comment on above: Performed By: #### C BCDF #### [facility] [address] [place] [address] RBC 4.27 x10E12/L Normal 4.00 - 5.20 [facility] Comment on above: Performed By: #### C BCDF #### [facility] [address] [place] [address] WBC (Bld) [#/Vol] 7.6 10*3/uL Normal 4.4 - 11.3 [facility] Comment on above: Performed By: #### C BCDF #### [facility] [address] [place] [address] COMPREHENSIVE PANELon 2021 Albumin [Mass/Vol] 4.2 g/dL Normal 3.4 - 5.0 [facility] Comment on above: Performed By: #### C MP #### [facility] [address] [place] [address] ALP [Catalytic activity/Vol] 77 U/L Normal 33 - 136 [facility] Comment on above: Performed By: #### C MP #### [facility] [address] [place] [address] ALT [Catalytic activity/Vol] 14 U/L Normal 7 - 45 [facility] Comment on above: Result Comment: Shaista ents treated with Sulfasalazine may generate falsely decreased results for ALT. Performed By: #### C MP #### [facility] [address] [place] [address] Anion gap [Moles/Vol] 13 mmol/L Normal 10 - 20 [facility] Comment on above: Performed By: #### C MP #### [facility] [address] [place] [address] AST [Catalytic activity/Vol] 18 U/L Normal 9 - 39 [facility] Comment on above: Performed By: #### C MP #### [facility] [address] [place] [address] Bilirubin [Mass/Vol] 0.3 mg/dL Normal 0.0 - 1.2 [facility] Comment on above: Performed By: #### C MP #### [facility] [address] [place] [address] Calcium [Mass/Vol] 10.0 mg/dL Normal 8.6 - 10.6 [facility] Comment on above: Performed By: #### C MP #### [facility] [address] [place] [address] Chloride [Moles/Vol] 105 mmol/L Normal 98 - 107 [facility] Comment on above: Performed By: #### C MP #### [facility] [address] [place] [address] Creatinine [Mass/Vol] 1.14 mg/dL High 0.50 - 1.05 [facility] Comment on above: Performed By: #### C MP #### [facility] [address] [place] [address] GFR/1.73 sq M.predicted among non-blacks MDRD (S/P/Bld) [Vol rate/Area] 55 mL/min/{1.73_m2} Abnormal >90 [facility] Comment on above: Result Comment: CALC ULATIONS OF ESTIMATED GFR ARE PERFORMED USING THE 2020 CKD-EPI STUDY REFIT EQUATION WITHOUT THE RACE VARIABLE FOR THE IDMS-TRACEABLE CREATININE METHODS. https://jasn.asnjournals.org/content//ASN.3712666 988 Performed By: #### C MP #### [facility] [address] [place] [address] Glucose [Mass/Vol] 87 mg/dL Normal 74 - 99 [facility] Comment on above: Performed By: #### C MP #### [facility] [address] [place] [address] HCO3 (Bld) [Moles/Vol] 28 mmol/L Normal 21 - 32 [facility] Comment on above: Performed By: #### C MP #### [facility] [address] [place] [address] Potassium [Moles/Vol] 4.0 mmol/L Normal 3.5 - 5.3 [facility] Comment on above: Performed By: #### C MP #### [facility] [address] [place] [address] Protein [Mass/Vol] 7.5 g/dL Normal 6.4 - 8.2 [facility] Comment on above: Performed By: #### C MP #### [facility] [address] [place] [address] Sodium [Moles/Vol] 142 mmol/L Normal 136 - 145 [facility] Comment on above: Performed By: #### C MP #### [facility] [address] [place] [address] Urea nitrogen [Mass/Vol] 21 mg/dL Normal 6 - 23 [facility] Comment on above: Performed By: #### C MP #### [facility] [address] [place] [address] HEMOGLOBIN A1Con 07-31-2022 Glucose [Mass/Vol] 105 mg/dL Normal [facility] Comment on above: Performed By: #### C OVSC #### [facility] [address] [place] [address] HbA1c (Bld) [Mass fraction] 5.3 % Normal [facility] Comment on above: Result Comment: Diag nosis of Diabetes-Adults Non-Diabetic: < or = 5.6% Increased risk for developing diabetes: 5.7-6.4% Diagnostic of diabetes: > or = 6.5% . Monitoring of Diabetes Age (y) Therapeutic Goal (%) Adults: >18 <7.0 Pediatrics: 13-18 <7.5 7-12 <8.0 0- 6 7.5-8.5 [employer]. Diabetes Care 33(S1), Nov 2009. Performed By: #### C OVSC #### [facility] [address] [place] [address] LDL, DIRECTon 07-31-2022 Cholesterol in LDL [Mass/Vol] 95 mg/dL Normal 0 - 129 [facility] Comment on above: Result Comment: Elev ated levels of LDL cholesterol are recognized as a fisher factor in the development of atherosclerosis and CHD. The direct LDL cholesterol test can be used to assess cardiovascular risk and monitor therapy as a follow up to a lipid profile when triglycerides are significantly elevated. Performed By: #### C OVSC #### [facility] [address] [place] [address] LIPID PANEL (CORONARY RISK 2 )on 07-31-2022 Cholesterol [Mass/Vol] 152 mg/dL Normal 0 - 199 [facility] Comment on above: Result Comment: . AGE [...] Performed By: #### C OVSC #### [facility] [address] [place] [address] Cholesterol in HDL [Mass/Vol] 36.6 mg/dL Abnormal [facility] Comment on above: Result Comment: . AGE VERY LOW LOW NORMAL HIGH 0-19 Y < 35 < 40 40-45 ---- 20-24 Y ---- < 40 >45 ---- >24 Y ---- < 40 40-60 >60 . Performed By: #### C OVSC #### [facility] [address] [place] [address] Cholesterol in LDL [Mass/Vol] 79 mg/dL Normal 0 - 99 [facility] Comment on above: Result Comment: . NEAR BORD AGE DESIRABLE OPTIMAL HIGH HIGH VERY HIGH 0-19 Y 0 - 109 --- 110-129 >/= 130 ---- 20-24 Y 0 - 119 --- 120-159 >/= 160 ---- >24 Y 0 - 99 100-129 130-159 160-189 >/=190 . Performed By: #### C OVSC #### [facility] [address] [place] [address] Cholesterol in VLDL [Mass/Vol] 37 mg/dL Normal 0 - 40 [facility] Comment on above: Performed By: #### C OVSC #### [facility] [address] [place] [address] Cholesterol.total/Ch olesterol in HDL [Mass ratio] 4.2 {ratio} Normal [facility] Comment on above: Result Comment: REF VALUES DESIRABLE < 3.4 HIGH RISK > 5.0 Performed By: #### C OVSC #### [facility] [address] [place] [address] Triglyceride [Mass/Vol] 183 mg/dL High 0 - 149 [facility] Comment on above: Result Comment: . AGE [...] dosing. Performed By: #### C OVSC #### [facility] [address] [place] [address] TSHon 07-31-2022 TSH Qn 1.32 m[IU]/L Normal 0.44 - 3.98 [facility] Comment on above: Result Comment: TSH testing is performed using different testing methodology at [facility] than at other [facility]. Direct result comparisons should only be made within the same method. Performed By: #### A LBSP #### [facility] [address] [place] [address] GLUCOSE-POCTon 06-05-2022 Glucose [Mass/Vol] 128 mg/dL High 74 - 99 [facility] Comment on above: Performed By: #### G JONATHAN #### [facility] [address] [place] [address] Operative Reports - Oliviaon 06-05-2022 Operative Reports - Olivia SURGEON: Fang Rodriguez, ALYSAM 1ST PLAY BACK OPERATOR: Josias Oliveros, PGY-3. 2ND PLAY BACK OPERATOR: Ly Sheikh, PGY-2. PREOPERATIVE DIAGNOSES: 1. [...] LOSS: Less than 100 cc. MATERIALS USED: Jan Iconix and ReelX anchor, C[employer] TissueMend, DJO SteriShield, DJO subtalar nail, MedShape [...] a tissue protector was inserted and a [employer] saber blade was utilized to transect the [...] joint was then distracted with a lamina talent sourcing specialist and the joint was prepared utilizing a combination of rongeur, osteotome, curette, subchondral drilling and fish scaling was performed until there was healthy bleeding bone. The incision was flushed. It was packed with bone graft substitute mixed with PRP and the joint was then closed in layers with Vicryl and Prolene suture. The subtalar joint nail was then inserted per phy therapist's recommended technique an 80 mm nail along [...] stressed under (more content not included)... Normal [facility] Order Reconciliationon 06-05 Order Reconciliation Page [...] continued as multivitamin Multiple Vitamins oral tablet [place]-3 1000 mg oral capsule 1 cap(s) oral twice a day 01-Jun-2022 11:21 [place]-3 1000 mg oral capsule 1 cap(s) oral twice a day 01-Jun-2022 11:21 [place]-3 1000 mg oral capsule is continued as [place]-3 1000 mg oral capsule turmeric 500 mg [...] mg oral (more content not included)... Normal [facility] Patient Profile - Preop v3on 06-04-2022 Patient Profile - Preop v3 Patient Profile - Preop: Initial Info: Patient DemographicsName: MARIE SEXTON Date: 1960 Address: [address] [place] [address] Date/Time [id number] 12:21 Primary Phone [phone] Instructions Givenappropriate clothing, bring responsible adult as the retail delivery driver (procedure may be cancelled if no retail delivery driver), center location, remove jewerly/piercings, time to arrive, arrival time of 0800 for 0930 surgery Prep Instructions Reviewedyes Prep Typeper office Instructed to Have No Fluids Aftermidnight How to be Addresseddtr Spoken Language PreferredEnglish Source of Informationpatient Stated Reason for Admissionright foot Primary Contact Name and Numberfamily Limitations on Visitors/Phone Callsnone Medications Brought to Hospitalno General Health: Weight in kg89.3 kilogram(s) Weight in gae534.8 pound(s) Weight Methodactual (measured) Scale Typestanding Height [...] child(mehul) Living Arrangementshouse Resource/Environmental Concernsnone Anticipated Transition Topender Services Anticipated at Transitionnone Tobacco Use: Tobacco Useyes Last Tobacco [id number] Number of Packs per Day1 Pre-op Checklist: Procedure Typeright foot NPOyes Last Food [id number] 19:00 Last Clear Fluid [id number] 07:00 ID Band On Patientpatient ID (name), [...] 05-Jun-2022 08:36 by Torrie Landaverde (RN) Normal [facility] BASIC METABOLIC PANELon 07- Anion gap [Moles/Vol] 12 mmol/L Normal 10 - 20 [facility] Comment on above: Performed By: #### B MP #### [address] [address] Calcium [Mass/Vol] 9.8 mg/dL Normal 8.6 - 10.3 [facility] Comment on above: Performed By: #### B MP #### [address] [address] Chloride [Moles/Vol] 103 mmol/L Normal 98 - 107 [facility] Comment on above: Performed By: #### B MP #### [address] [address] Creatinine [Mass/Vol] 0.94 mg/dL Normal 0.50 - 1.05 [facility] Comment on above: Performed By: #### B MP #### [address] [address] GFR/1.73 sq M.predicted among non-blacks MDRD (S/P/Bld) [Vol rate/Area] 69 mL/min/{1.73_m2} Normal >90 [facility] Comment on above: Result Comment: CALC ULATIONS OF ESTIMATED GFR ARE PERFORMED USING THE 2020 CKD-EPI STUDY REFIT EQUATION WITHOUT THE RACE VARIABLE FOR THE IDMS-TRACEABLE CREATININE METHODS. https://tonysn.asnjournals.org/content//ASN.9544374 988 Performed By: #### B MP #### [address] [address] Glucose [Mass/Vol] 129 mg/dL High 74 - 99 [facility] Comment on above: Performed By: #### B MP #### [address] [address] HCO3 (Bld) [Moles/Vol] 28 mmol/L Normal 21 - 32 [facility] Comment on above: Performed By: #### B MP #### [address] [address] Potassium [Moles/Vol] 4.2 mmol/L Normal 3.5 - 5.3 [facility] Comment on above: Performed By: #### B MP #### [address] [address] Sodium [Moles/Vol] 139 mmol/L Normal 136 - 145 [facility] Comment on above: Performed By: #### B MP #### [address] [address] Urea nitrogen [Mass/Vol] 22 mg/dL Normal 6 - 23 [facility] Comment on above: Performed By: #### B MP #### [address] [address] CBC AND DIFFERENTIALon 06-01 % AUTOMATED IMMATURE GRAN 0.4 % Normal 0.0 - 0.9 [facility] Comment on above: Result Comment: Coni ture Granulocyte Count (IG) includes promyelocytes, myelocytes and metamyelocytes but does not include bands. Percent differential counts (%) should be interpreted in the context of the absolute cell counts (cells/L). Performed By: #### C BCDF #### [address] [address] Basophils (Bld) [#/Vol] 0.05 10*3/uL Normal 0.00 - 0.10 [facility] Comment on above: Performed By: #### C BCDF #### [address] [address] Basophils/100 WBC (Bld) 0.7 % Normal 0.0 - 2.0 [facility] Comment on above: Performed By: #### C BCDF #### [facility] [address] [place] [address] Eosinophils (Bld) [#/Vol] 0.21 10*3/uL Normal 0.00 - 0.70 [facility] Comment on above: Performed By: #### C BCDF #### [facility] [address] [place] [address] Eosinophils/100 WBC (Bld) 2.9 % Normal 0.0 - 6.0 [facility] Comment on above: Performed By: #### C BCDF #### [address] [place] [address] Erythrocyte distribution width (RBC) [Ratio] 12.7 % Normal 11.5 - 14.5 [facility] Comment on above: Performed By: #### C BCDF #### [address] [place] [address] Hematocrit (Bld) [Volume fraction] 39.5 % Normal 36.0 - 46.0 [facility] Comment on above: Performed By: #### C BCDF #### [address] [place] [address] Hemoglobin (Bld) [Mass/Vol] 13.4 g/dL Normal 12.0 - 16.0 [facility] Comment on above: Performed By: #### C BCDF #### [address] [place] [address] Lymphocytes (Bld) [#/Vol] 3.00 10*3/uL Normal 1.20 - 4.80 [facility] Comment on above: Performed By: #### C BCDF #### [address] [place] [address] Lymphocytes/100 WBC (Bld) 41.3 % Normal 13.0 - 44.0 [facility] Comment on above: Performed By: #### C BCDF #### [facility] [address] [place] [address] MCHC (RBC) [Mass/Vol] 33.9 g/dL Normal 32.0 - 36.0 [facility] Comment on above: Performed By: #### C BCDF #### [address] [address] MCV (RBC) [Entitic vol] 88 fL Normal 80 - 100 [facility] Comment on above: Performed By: #### C BCDF #### [address] [address] Monocytes (Bld) [#/Vol] 0.52 10*3/uL Normal 0.10 - 1.00 [facility] Comment on above: Performed By: #### C BCDF #### [address] [address] Monocytes/100 WBC (Bld) 7.2 % Normal 2.0 - 10.0 [facility] Comment on above: Performed By: #### C BCDF #### [address] [address] Neutrophils (Bld) [#/Vol] 3.46 10*3/uL Normal 1.20 - 7.70 [facility] Comment on above: Performed By: #### C BCDF #### [address] [address] Neutrophils/100 WBC (Bld) 47.5 % Normal 40.0 - 80.0 [facility] Comment on above: Performed By: #### C BCDF #### [address] [address] NUCLEATED RBC 0.0 /100 WBC Normal 0.0 - 0.0 [facility] Comment on above: Performed By: #### C BCDF #### [address] [address] Platelets (Bld) [#/Vol] 266 10*3/uL Normal 150 - 450 [facility] Comment on above: Performed By: #### C BCDF #### [address] [address] RBC 4.49 x10E12/L Normal 4.00 - 5.20 [facility] Comment on above: Performed By: #### C BCDF #### [address] [address] WBC (Bld) [#/Vol] 7.3 10*3/uL Normal 4.4 - 11.3 [facility] Comment on above: Performed By: #### C BCDF #### [facility] [address] [place] [address] MR Ankle - right WO contrast on 04-29-2021 IMPRESSION: POSTERIO R TIBIALIS TENOSYNOVITIS. 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 ABNORMAL APPEARANCES OF THE SPRING LIGAMENT AND CALCANEOFIBULAR LIGAMENT. FINDINGS SUGGESTIVE OF MILD PLANTAR FASCIITIS. DIABETIC MUSCLE ATROPHY. Juvenile Officer: PSCB Transcribe Date/Time: Apr 29 2021 2:13P Dictated by : CARLOS LOZANO MD This examination was interpreted and the report reviewed and electronically signed by: CARLOS LOZANO MD on Apr 29 2021 2:25PM [facility] DIVISION OF RADIOLOGY * * *Final Report* * * DATE OF EXAM: Apr 29 2021 11:40AM [facility] 0164 - MRI ANKLE WO IVCON RT / PROCEDURE REASON: multiple diagnoses * * * * Physician Interpretation * * * * HISTORY: Achilles tendinitis of right lower extremity Chronic pain of right ankle Chronic pain of right ankle Posterior tibial tendon dysfunction Difficulty walking Valgus deformity hind gutierrez t Diabetic peripheral sensory neuropathy TECHNOLOGIST PROVIDED HISTORY (if applicable): TECHNIQUE: MRI ANKLE WO IVCON RT RESULT: RIGHT ankle MRI. Comparison is to radiographs 02/24/2021. The posterior tibialis tendon is markedly thickened with minimally increased signal consistent with chronic tendinosis. No tear. Mild distention of the tendon sheath. The flexor digitorum longus and flexor hallucis longus tendons are normal, as is the Achilles tendon. The lateral plantar flexors are normal as are the dorsiflexors. There is fairly diffuse fatty atrophy of the musculature. The anterior and posterolateral ankle ligaments are intact as is the deltoid ligament. The calcaneofibular ligament is thickened. The spring ligament is attenuated especially posteromedially. The plantar fascia is intact. Minimal adjacent subcutaneous edema posteriorly with additional edema along the myotendinous junction along the deep surface of the central band. No subjacent osseous signal abnormality. Mild distention of the ankle joint and posterior recess with evidence for mild synovitis. Advanced degenerative changes are present with anterior tibiotalar narrowing and small osteophytes and anterior joint body or bodies. Posterior tibial subchondral cyst. Thinning of the articular cartilage. The posterior subtalar joint shows minimal subchondral edema in the calcaneus with tiny cyst. More pronounced cystlike changes present on both sides of the angle of Gissane, and in the calcaneus along the floor of the sinus tarsi. Small ossification adjacent to the anterior process of the calcaneus likely a remote fracture although could be enthesopathic. The normal fat in the sinus Tarsi has been replaced by low to intermediate T1 and intermediate fluid weighted signal abnormality. A large area of cystlike change is present involving much of the sustentaculum talus. Small subchondral cyst in the proximal navicular at the talonavicular joint dorsally. No additional osseous abnormality. DIVISION OF RADIOLOGY Provider, [facility] - 04/29/2021 * * *Final Report* * * DATE OF EXAM: Apr 29 2021 11:40AM [facility] 0164 - MRI ANKLE WO IVCON RT / PROCEDURE REASON: multiple diagnoses * * * * Physician Interpretation * * * * HISTORY: Achilles tendinitis of right lower extremity Chronic pain of right ankle Chronic pain of right ankle Posterior tibial tendon dysfunction Difficulty walking Valgus deformity hind gutierrez t Diabetic peripheral sensory neuropathy TECHNOLOGIST PROVIDED HISTORY (if applicable): TECHNIQUE: MRI ANKLE WO IVCON RT RESULT: RIGHT ankle MRI. Comparison is to radiographs 02/24/2021. The posterior tibialis tendon is markedly thickened with minimally increased signal consistent with chronic tendinosis. No tear. Mild distention of the tendon sheath. The flexor digitorum longus and flexor hallucis longus tendons are normal, as is the Achilles tendon. The lateral plantar flexors are normal as are the dorsiflexors. There is fairly diffuse fatty atrophy of the musculature. The anterior and posterolateral ankle ligaments are intact as is the deltoid ligament. The calcaneofibular ligament is thickened. The spring ligament is attenuated especially posteromedially. The plantar fascia is intact. Minimal adjacent subcutaneous edema posteriorly with additional edema along the myotendinous junction along the deep surface of the central band. No subjacent osseous signal abnormality. Mild distention of the ankle joint and posterior recess with evidence for mild synovitis. Advanced degenerative changes are present with anterior tibiotalar narrowing and small osteophytes and anterior joint body or bodies. Posterior tibial subchondral cyst. Thinning of the articular cartilage. The posterior subtalar joint shows minimal subchondral edema in the calcaneus with tiny cyst. More pronounced cystlike changes present on both sides of the angle of Gissane, and in the calcaneus along the floor of the sinus tarsi. Small ossification adjacent to the anterior process of the calcaneus likely a remote fracture although could be enthesopathic. The normal fat in the sinus Tarsi has been replaced by low to intermediate T1 and intermediate fluid weighted signal abnormality. A large area of cystlike change is present involving much of the sustentaculum talus. Small subchondral cyst in the proximal navicular at the talonavicular joint dorsally. No additional osseous abnormality. IMPRESSION IMPRESSION: POSTERIOR TIBIALIS TENOSYNOVITIS. 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 ABNORMAL APPEARANCES OF THE SPRING LIGAMENT AND CALCANEOFIBULAR LIGAMENT. FINDINGS SUGGESTIVE OF MILD PLANTAR FASCIITIS. DIABETIC MUSCLE ATROPHY. Juvenile Officer: SUBHASH Transcribe Date/Time: Apr 29 2021 2:13P Dictated by : CARLOS LOZANO MD This examination was interpreted and the report reviewed and electronically signed by: CARLOS LOZANO MD on Apr 29 2021 2:25PM EST [facility] Radiology Study observation (narrative) [facility] MR Ankle - right WO contrast Ordered By: Ccf Provider on 04-29-2021 [facility] MAMM DIGITAL SCRN BILATERALo n 02-10-2021 MAMM [...] Armijo MD 02/10/2021 8:55 AM CDT Technologist: ELPIDIO Dictated By: ASHWIN ARMIJO MD Signed By: ASHWIN ARMIJO MD Signed Out: 02/10/21 18:21:51 Normal [facility] Hematologyon 03-20-2019 Hematocrit Volume Fraction (Bld) 40.5 % See Below [facility] [employer] Work Phone: Comment on above: Reference Range: 36. 0 - 46.0 Hemoglobin mass conc (Bld) 13.3 g/dL See Below [facility] [employer] Work Phone: Comment on above: Reference Range: 12. 0 - 16.0 MCV Entitic volume (RBC) 94 fL 80 - 100 [facility] [employer] Work Phone: Platelets #/vol (Bld) 252 {x10E9/L} 150 - 450 [facility] [employer] Work Phone: RBC #/vol (Bld) 4.33 {x10E12/L} See Below [facility] [employer] Work Phone: Comment on above: Reference Range: 4.0 0 - 5.20 WBC #/vol (Bld) 0.0 {/100_WBC} 0.0-0.0 [facility] [employer] Work Phone: WBC #/vol (Bld) 6.6 {x10E9/L} 4.4 - 11.3 [facility] [employer] Work Phone: IO Hgb A1Con 03-20-2019 HbA1c (Bld) [Mass fraction] 7.1 % 4.4-6.4% [facility] a 1057 Work Phone: Lipid Panelon 03-20-2019 Cholesterol in HDL mass conc 35.3 mg/dL Abnormal [facility] a 105 Work Phone: Comment on above: . AGE VERY LOW LOW N ORMAL HIGH 0-19 Y < 35 < 40 40-45 ---- 20- 24 Y ---- < 40 >45 ---- >24 Y ---- < 40 40-60 >60. Cholesterol in LDL mass conc 86 mg/dL 0 - 99 [facility] [address] 10[address] Work Phone: Comment on above: . NEAR BORD AGE JOHNATHON RABLE OPTIMAL HIGH HIGH VERY HIGH 0-19 Y 0 - 109 --- 110-129 >/= 130 ---- 20-24 Y 0 - 119 --- 120-159 >/= 160 ---- >24 Y 0 - 99 100-129 130-159 160-189 >/=190. Cholesterol mass conc 173 mg/dL 0 - 199 [facility] [address] 3193 Work Phone: Comment on above: . AGE [...] Cholesterol non HDL mass conc 138 mg/dL [facility] 74[address] Work Phone: Comment on above: AGE DESIRABLE BORDER LINE HIGH HIGH VERY HIGH 0-19 Y 0 - 119 120 - 144 >/= 145 >/= 160 20-24 Y 0 - 149 150 - 189 >/= 190 ---- >24 Y 30 MG/DL ABOVE LDL CHOLESTEROL GOAL. Cholesterol.total/Ch olesterol in HDL mass ratio 4.9 {ratio} [facility] [address] Work Phone: Comment on above: REF VALUESDESIRABLE < 3.4HIGH RISK > 5.0 Triglyceride mass conc 261 mg/dL above high threshold 0 - 149 [facility] [address] Work Phone: Comment on [...] mg/dL above high threshold 0 - 40 [facility] [address] Work Phone: Metabolic Panelon 03-20-2019 ALP enzyme act/vol 63 U/L 33 - 110 [facility] [address] 1050 Work Phone: Anion gap molar conc 13 mmol/L 10 - 20 [facility] [address] 10[address] Work Phone: Bilirubin mass conc 0.4 mg/dL 0.0 - 1.2 [facility] [address] 105 Work Phone: Calcium mass conc 9.8 mg/dL 8.6 - 10.6 [facility] a 1057 Work Phone: Chloride molar conc 99 mmol/L 98 - 107 - [facility] a 1057 Work Phone: CO2 molar conc 34 mmol/L above high threshold 21 - 32 - [facility] Work Phone: Creatinine mass conc 0.87 mg/dL See Below MP- [facility] Center[facility] a 1057 Work Phone: Comment on above: Reference Range: 0.5 0 - 1.05 Glucose mass conc 152 mg/dL above high threshold 74 - 99 [facility] [address] Work Phone: Potassium molar conc 3.7 mmol/L 3.5 - 5.3 [facility] 10[address] Work Phone: Protein mass conc 7.2 g/dL 6.4 - 8.2 [facility] a 1057 Work Phone: Sodium molar conc 142 mmol/L 136 - 145 [facility] [address] Work Phone: Urea nitrogen mass conc 18 mg/dL 6 - 23 [facility] [address] Work Phone: Otheron 03-20-2019 Albumin Bromocresol purple (BCP) dye binding method mass conc 4.3 g/dL 3.4 - 5.0 [facility] Centerre[facility] a 1057 Work Phone: ALT With P-5'-P enzyme act/vol 46 U/L above high threshold 7 - 45 [facility] [address] Work Phone: Comment on above: Patients treated wit h Sulfasalazine may generate falsely decreased results for ALT. AST With P-5'-P enzyme act/vol 32 U/L 9 - 39 [facility] [address] 1057 Work Phone: Erythrocyte distribution width Ratio (RBC) 13.2 % See Below [facility] [employer] Work Phone: Comment on above: Reference Range: 11. 5 - 14.5 MCHC mass conc (RBC) 32.8 g/dL See Below -[facility] [employer] Work Phone: Comment on above: Reference Range: 32. 0 - 36.0 >60 >60 [facility] a 1055 Work Phone: Comment on above: CALCULATIONS OF LUIS MATED GFR ARE PERFORMED USING THE MDRD STUDY EQUATION FOR THE IDMS-TRACEABLE CREATININE METHODS. CLIN CHEM 2007;53:766-72 T4 - Free Thyroxine, Serumon 03-20-2019 T4 free mass conc 1.08 ng/dL See Below [facility] [address]59 Work Phone: Comment on above: Reference Range: 0.7 8 - 1.48 Thyroxine Free testing is performed using different testing methodology at [facility] than at other [facility]. Direct result comparisons should only be made within the same method.. Patients receiving more than 5 mg/day of biotin may have interference in test results. A sample should be taken no sooner than eight hours after previous dose. Contact [phone] for additional information. TSH - Thyroid Stimulating Ho rmone, Serumon 03-20-2019 Thyrotropin Qn 3.22 {mIU/L} See Below [facility] a 16[address] Work Phone: Comment on above: Reference Range: 0.4 4 - 3.98 TSH testing is performed using different testing methodology at [facility] than at other [facility]. Direct result comparisons should only be made within the same method.. Patients receiving more than 5 mg/day of biotin may have interference in test results. A sample should be taken no sooner than eight hours after previous dose. Contact [phone] for additional information. Vital Signs Date Time Vital Sign Value Performing Clinician Jorge duong 05-12-2023 09:24-0400 Body height 185.4 cm Pacc 1 Work Phone: [facility] 05-12-2023 09:24-0400 Body temperature 98.2 [degF] Pacc 1 Work Phone: [facility] 05-12-2023 09:24-0400 Body weight 91.17 kg Pacc 1 Work Phone: [facility] 05-12-2023 09:24-0400 Diastolic blood pressure 79 mm[Hg] Pacc 1 Work Phone: [facility] 05-12-2023 09:24-0400 Heart rate 75 /min Pacc 1 Work Phone: [facility] 05-12-2023 09:24-0400 Respiratory rate 18 /min Pacc 1 Work Phone: [facility] 05-12-2023 09:24-0400 SaO2% (BldA) [Mass fraction] 95 % Pacc 1 Work Phone: [facility] 05-12-2023 09:24-0400 Systolic blood pressure 136 mm[Hg] Pacc 1 Work Phone: [facility] 05-07-2023 14:25-0400 Diastolic blood pressure 66 mm[Hg] Dana Goyal MD Work Phone: [facility] 05-07-2023 14:25-0400 Heart rate 68 /min Dana Goyal MD Work Phone: [facility] 05-07-2023 14:25-0400 Systolic blood pressure 120 mm[Hg] Dana oGyal MD Work Phone: [facility] 03-20-2019 11:15-0400 BMI (Body Mass Index) 25.46 kg/m2 Collins Savage [facility] Work Phone: 03-20-2019 11:15-0400 Body Temperature 98.7 [degF] Collins Savage [facility] Christak is [facility] Work Phone: 03-20-2019 11:15-0400 Body weight 87.54 kg Collins Savage [facility] [address] Work Phone: 03-20-2019 11:15-0400 BP Diastolic 84 mm[Hg] Collins Savage [facility] Work Phone: 03-20-2019 11:15-0400 BP Systolic 126 mm[Hg] Collins Savage [facility] Saridaki s [facility] Work Phone: 03-20-2019 11:15-0400 BSA (Body Surface Area) 2.12 m2 Collins Savage [facility] Janette & [facility]57 Work Phone: 03-20-2019 11:15-0400 Height 185.42 cm Collins Savage [facility] Sarjessicaki s [facility] 1057 Work Phone: 03-20-2019 11:15-0400 Pulse (Heart Rate) 71 /min Collins Savage [facility] Escobar sultanas & [facility] 1057 Work Phone: 03-20-2019 11:15-0400 Pulse Oximetry 96 % Collins Savage [facility] Sarjessicaki s [facility] 1057 Work Phone: 03-20-2019 11:15-0400 Respiratory Rate 14 /min Collins Monaenavin [facility] Ely is & [facility] 1057 Work Phone: 03-20-2019 11:150400 Weight 87.54 kg Collins Monaenavin [facility] Bulmaro s & [facility] 1057 Work Phone: Encounters Encounter Date Encounter Type Care Provider Facility Start: 08-10-2024 End: 08-10-2024 ambulatory [facility] Start: 08-02-2024 End: 08-02-2024 ambulatory [facility] Start: 07-10-2024 End: 07-10-2024 ambulatory [facility] Start: 03-13-2024 End: 03-13-2024 ambulatory [facility] Start: 03-09-2024 End: 03-09-2024 ambulatory Zuhair Fabio Melejuan miguel Facility:[facility] Start: 03-09-2024 End: 03-09-2024 ambulatory DPM Zuhair Grubbs Work Phone: [facility] Work Phone: Start: 03-09-2024 End: 03-09-2024 Departed Referred DPM Zuhair Grubbs Work Phone: [facility] Start: 02-28-2024 Refill Macario Santos DPM Work Phone: Orthopedics Comment on above: Refill Request Start: 01-25-2024 Refill Macario Armstrongerty DPM Work Phone: Orthopedics Comment on above: Refill Request Start: 01-17-2024 End: 01-17-2024 ambulatory MACARIO SANTOS Facility:[facility] Start: 01-10-2024 Refill Macario Santos DPM Work Phone: Orthopedics Comment on above: Refill Request Start: 12-29-2023 Refill Sortochandu Santos DPM Work Phone: Medical Records Comment on above: Refill Request Start: 12-08-2023 Refill Macario Santos DPM Work Phone: Medical Records Comment on above: Refill Request Start: 11-26-2023 End: 11-26-2023 ambulatory COLLINS ANDREWS [facility] Start: 11-25-2023 End: 11-25-2023 ambulatory MACARIO SANTOS Facility:[facility] Start: 11-10-2023 End: 11-10-2023 ambulatory BEASON Rebecca [facility] Facility:[facility] Start: 11-03-2023 Encounter for other preprocedural examination MACARIO SANTOS [facility] Start: 11-03-2023 End: 11-03-2023 ambulatory MACARIO SANTOS Facility:[facility] Start: 10-25-2023 Refill Macario Santos DPM Work Phone: Orthopedics Comment on above: Refill Request Start: 10-25-2023 Refill Macario Santos DPM Work Phone: Orthopedics Comment on above: Refill Request Start: 10-18-2023 End: 10-19-2023 ambulatory BEASON Rebecca ANDREWS Facility:[facility] Start: 10-14-2023 End: 10-14-2023 ambulatory MACARIO SANTOS Facility:[facility] Start: 10-14-2023 End: 10-14-2023 Subsequent hospital visit by physician [facility] Lonnie (I-Stat) CT Scan [facility] Comment on above: Osteonecrosis (HCC) [M87.9] Start: 10-11-2023 End: 10-11-2023 ambulatory Nikki Kearney RT(R) Radiology Comment on above: Radiology XR Start: 10-11-2023 Patient encounter procedure Nikki Kearney RT(R) [facility] Start: 09-29-2023 Refill Macario Santos DPM Work Phone: Orthopedics Comment on above: Refill Request Start: 09-27-2023 ambulatory Macario Santos DPM Work Phone: Orthopedics Comment on above: Updated X-rays Start: 09-27-2023 E-mail encounter fro m caregiver Macario Santos DPM Work Phone: [facility] Start: 09-06-2023 End: 09-06-2023 ambulatory Gia Becerra Jame RT(R) Radiology Comment on above: Radiology XR Start: 09-06-2023 End: 09-06-2023 Patient encounter procedure Gia Becerra Jame RT(R) [facility] Comment on above: Diabetes mellitus du e to underlying condition with diabetic autonomic neuropathy, with long-term current use of insulin (HCC) (Primary Dx); Post-op pain; Charcot ankle, right; Osteonecrosis (HCC) Start: 08-05-2023 End: 08-05-2023 ambulatory Rosie Elizondo RT(R) Radiology Comment on above: Radiology XR Start: 08-05-2023 Patient encounter procedure Rosie Elizondo RT(R) [facility] Start: 07-28-2023 Orders Only Macario Santos DPM Work Phone: [facility] Comment on above: Disease of bone (Rima teena Dx) Start: 07-21-2023 Refill Macario Santos DPM Work Phone: [facility] Adult Comment on above: Refill Request Start: 07-07-2023 Refill Macario Santos DPM Work Phone: Orthopedics Start: 07-02-2023 End: 07-02-2023 ambulatory MACARIO SANTOS Facility:[facility] Start: 07-02-2023 End: 07-02-2023 Patient encounter procedure Macario Santos DPM Work Phone: [facility] Comment on above: Disorder of bone (Pr imary Dx); Charcot ankle, right Start: 07-02-2023 End: 07-02-2023 Subsequent hospital visit by physician Xr [facility] Radiology Comment on above: Charcot ankle, right [M14.671] Start: 06-17-2023 Refill Macario Santos DPM Work Phone: Medical Records Comment on above: Refill Request Start: 06-07-2023 End: 06-07-2023 ambulatory MACARIO SANTOS Facility:[facility] Start: 06-07-2023 End: 06-07-2023 ambulatory MACARIO SANTOS Facility:[facility] Start: 06-04-2023 Refill Macario Santos DPM Work Phone: Orthopedics Start: 06-02-2023 Refill Macario Santos DPM Work Phone: Medical Records Comment on above: Refill Request Start: 05-27-2023 End: 05-27-2023 ambulatory COLLINS Rebecca ANDREWS Facility:[facility] Start: 05-27-2023 End: 05-27-2023 Patient encounter procedure Cast Tech Fairivew [facility] Comment on above: Charcot ankle, right (Primary Dx) Start: 05-26-2023 ambulatory Macario Santos DPM Work Phone: [facility] Comment on above: Cast is wet Start: 05-23-2023 Telephone encounter Kaylyn amin [employer].ROBOT OPERATOR Work Phone: [facility] Adult Comment on above: Follow Up Start: 05-19-2023 Telephone encounter Brigette parks RN [facility] Operating Room Comment on above: Follow Up Start: 05-17-2023 End: 05-18-2023 Evaluation and management of inpatient MACARIO SANTOS Facility:[facility] Start: 05-14-2023 Encounter for preprocedural cardiovascular examination MACARIO SANTOS [facility] Start: 05-14-2023 End: 05-14-2023 ambulatory DANA GOYAL Facility:[facility] Start: 05-14-2023 End: 05-14-2023 Patient encounter status Card Injection Molecular Imagi ng Start: 05-14-2023 End: 05-14-2023 Subsequent hospital visit by physician Card Injection Molecular Imaging Comment on above: Preoperative cardiov ascular examination [Z01.810] Start: 05-14-2023 End: 05-14-[address] [facility] Facility:[facility] Start: 05-12-2023 End: 05-12-2023 Evaluation and management of inpatient SORTO ODELL SANTOS Facility:[facility] Start: 05-12-2023 End: 05-12-2023 Admission to [facility] [place] 1 Work Phone: [facility] Start: 05-12-2023 End: 05-12-2023 ambulatory [facility] [place] 1 Work Phone: Pre Anesthesia Comment on above: Pre-op exam (Primary Dx); Diabetes mellitus type 2 with neurological manifestations (HCC); Former smoker; Intermittent asthma without complication, unspecified asthma severity Start: 05-12-2023 End: 05-12-2023 Preprocedural examination done [facility] [place] 1 Work Phone: Pre Anesthesia Start: 05-07-2023 End: 05-07-2023 ambulatory DANA GOYAL Facility:[facility] Start: 05-07-2023 End: 05-07-2023 Office outpatient new 45 minutes Dana Goyal MD Work Phone: Cardiology Comment on above: PAD (peripheral charity ry disease) (HCC) (Primary Dx); Preoperative cardiovascular examination; Diabetes mellitus type 2 with neurological manifestations (HCC); Former smoker Start: 05-07-2023 End: 05-07-2023 Patient encounter status Dana Goyal MD Work Phone: Cardiology Start: 05-05-2023 Orders Only Macario Santos DPM [facility] Comment on above: Osteonecrosis (HCC) (Primary Dx); Charcot ankle, right; Retained orthopedic hardware; Deformity of ankle joint, right Surgical Follow Up Refill Request Start: 05-03-2023 End: 05-03-2023 ambulatory MACARIO SANTOS Facility:[facility] Start: 05-03-2023 End: 05-03-2023 Patient encounter procedure Macario Santos DPM Work Phone: [facility] [place] Comment on above: Osteonecrosis (HCC) (Primary Dx); Charcot ankle, right; Retained orthopedic hardware Start: 04-22-2023 End: 04-22-2023 ambulatory MACARIO SANTOS Facility:[facility] Start: 04-22-2023 End: 04-22-2023 ambulatory MACARIO SANTOS Facility:[facility] Start: 04-22-2023 End: 04-22-2023 Patient encounter procedure Macario Santos DPM Work Phone: Orthopedics Comment on above: Osteonecrosis (HCC) (Primary Dx); Charcot ankle, right Start: 04-20-2023 Orders Only Macario Santos DPM [facility] Comment on above: Charcot's joint of r [...] for preprocedural laboratory examination Dr. Fang Rodriguez [facility] Start: 01-08-2023 End: 01-08-[address] Fang Rodriguez Facility:[id number] Start: 01-05-[address] Fang Rodriguez Facility:[id number] Start: 01-05-2023 Encounter for preprocedural cardiovascular examination Dr. Fang Rodriguez [facility] Start: 08-21-2022 End: 08-21-[address] Fang Rodriguez Facility:[id number] Start: 08-13-2022 End: 08-13-[address] Fang Rodriguez Facility:[id number] Start: 08-10-[address] Fang Rodriguez Facility:[id number] Start: 06-05-2022 End: 06-05-[address] Fang Rodriguez Facility:[id number] Start: 06-01-[address] Fang Rodriguez Facility:[id number] Start: 04-29-2021 End: 04-29-2021 Subsequent hospital visit by physician Mri Radio [facility] Stro (I-Stat/1.5t) Work Phone: Radiology Comment on above: Achilles tendinitis of right lower extremity [M76.61] Start: 02-04-2021 End: 02-04-2021 Orders Only Fang Fan Work Phone: [facility] [place] Comment on above: Pain (Primary Dx) Start: 02-23-2020 Patient encounter procedure Collins Savage [facility] Janette & [facility] 1057 Work Phone: Start: 11-20-2019 Patient encounter procedure Collins Savage [facility] Janette & [facility] 1057 Work Phone: Start: 08-16-2019 Patient encounter procedure Collins Savage [facility] Janette & [facility] 1057 Work Phone: Start: 06-22-2019 Patient encounter procedure Collins Savage [facility] Janette & [facility] 1057 Work Phone: Start: 03-20-2019 Patient encounter procedure Collins Savage [facility] Janette & [facility] 1057 Work Phone: Start: 01-26-2019 Nursing evaluation o f patient and report Collins Savage [facility] Janette & [facility] 1057 Work Phone: Start: 11-04-2018 Patient encounter procedure Collins Savage [facility] Janette & [facility] 1057 Work Phone: Start: 03-03-2018 Patient encounter procedure Collins Savage [facility] 1057 Work Phone: Start: 03-03-2018 Ambulatory Collins Christaobie Facil ity:[facility] Start: 07-05-2017 Patient encounter procedure Collins Savage [facility] 1057 Work Phone: Start: 03-25-2017 Patient encounter procedure Collins Savage [facility] 1057 Work Phone: Encounter for gynecological examination (general) (routine) without abnormal findings Collins Chamberlainlake [facility] 1057 Work Phone: Procedures Date Procedure Procedure Detail Performing Clinician Start: 03-13-2024 Comprehensive metabo lic 1999 panel - Serum or Plasma COLLINS ANDREWS Start: 03-13-2024 Hemoglobin A1c/Hemoglobin.total in Blood COLLINS ANDREWS Start: 03-13-2024 Thyrotropin [Units/v olume] in Serum or Plasma COLLINS ANDREWS Start: 11-26-2023 Comprehensive metabo lic 2000 panel - Serum or Plasma COLLINS ANDRWES Start: 11-26-2023 Hemoglobin A1c/Hemoglobin.total in Blood COLLINS ANDREWS Start: 11-26-2023 Lipid panel COLLINS ROWELL Start: 11-26-2023 Thyrotropin [Units/v olume] in Serum or Plasma COLLINS ANDREWS Start: 11-26-2023 THYROXINE, FREE COLLINS ANDREWS Start: 10-14-2023 Ct lower extremity w /o contrast material Macario Santos DPM Work Phone: Start: 07-27-2023 Lipid 1996 panel - S [...] Fang Garza Jennifer DPM Work Phone: Start: 04-29-2021 Mri any jt lower ext rem w/o contrast matrl Ramiro Pierre DPM Work Phone: Start: 02-23-2020 Follow-up visit [...] tony Start: 03-20-2019 MG Breast screening Keenan corbyradha Janette Start: 03-20-2019 Urine albumin quantitative Collins [...] 03-19-2025 Screening for malignant neoplasm of colon [facility] Start: 11-26-2024 Hepatitis B surface antibody level LDL Cholesterol [facility] Start: 07-27-2024 Hepatitis B screening Urine Albumin:Creatinine Ratio [facility] Start: 07-27-2024 Hepatitis B surface antibody level LDL Cholesterol [facility] Start: 07-27-2024 Lipid panel Lipid Panel [facility] Start: 07-27-2024 Thyroid stimulating hormone measurement TSH Level [facility] Start: 07-16-2024 Covid-19 Vaccine ( season) Covid-19 Vaccine ( season) [facility] Start: 07-16-2024 Covid-19 Vaccine ( season) Covid-19 Vaccine ( season) [facility] Start: 07-16-2024 [facility] Start: 05-26-2024 Hemoglobin A1c measurement HbA1C [facility] Start: 05-07-2024 BP CONTROLLED (<130/80) BP CONTROLLED (<130/80) [facility] Start: 05-04-2024 Hemoglobin A1c measurement HbA1C [facility] Start: 01-25-2024 Hemoglobin A1c measurement HbA1C [facility] Start: 11-15-2023 Behavioral Health Screening Behavioral Health Screening [facility] Start: 11-15-2023 Depression Assessment Depression Ass essment [facility] Start: 10-26-2023 Hemoglobin A1c measurement Diabetes: Hemoglobin A1C [facility] Start: 07-16-2023 Covid-19 Vaccine ( season) Covid-19 Vaccine ( season) [facility] Start: 07-16-2023 Influenza vaccination C [facility] Start: 05-07-2023 End: 06-05-2024 NM CARDIAC PERF STRESS/PHARM NM CARDIAC PERF STRESS/PHARM Radiology Routine Preoperative cardiovascular examination Expected: 05/07/2023, Expires: 06/05/2024 [facility] Work Phone: Comment on above: Expected: 05/07/2023 , Expires: 06/05/2024 Start: 05-07-2023 End: 05-07-2024 PVR [facility]G [facility] Vascular Lab Routine PAD (peripheral artery disease) (HCC) Expected: 05/07/2023, Expires: 05/07/2024 [facility] Work Phone: Comment on above: Expected: 05/07/2023 , Expires: 05/07/2024 Start: 05-07-2023 End: 05-07-2024 US LEG ARTERIAL PERIPH [facility] US LEG ARTERIAL PERIPH [facility] Vascular Lab Routine PAD (peripheral artery disease) (HCC) Expected: 05/07/2023, Expires: 05/07/2024 [facility] Work Phone: Comment on above: Expected: 05/07/2023 , Expires: 05/07/2024 Start: 11-15-2022 DEPRESSION ASSESSMENT DEPRESSION ASS ESSMENT [facility] Start: 2021 Hepatitis B Vaccine (1 of 3 - Risk 3-dose series) Hepatitis B Vaccine (1 of 3 - Risk 3-dose series) [facility] Start: 2021 RSV Vaccine (1 - 1-dose 60+ series) RSV Vaccine (1 - 1-dose 60+ series) [facility] Start: 2021 RSV Vaccine (1 - Ris k 60-74 years 1-dose series) RSV Vaccine (1 - Risk 60-74 years 1-dose series) [facility] Start: 07-16-2020 Influenza vaccination INFLUENZA (#1) [facility] Start: 03-25-2020 Screening for malignant neoplasm of cervix [facility] Start: 02-23-2020 [facility] Ilana tavares & [facility] 1052 Work Phone: Start: 09-20-2019 Hemoglobin A1c/Hemoglobin.total in Blood HBA1C [facility] Start: 03-20-2019 MG Breast screening Mamm - Scr eening Mammogram w/ Tomosynthesis [facility] 8881 Work Phone: Start: 03-20-2019 Xray Bone Dens ity, Dexa 1 or More Sites [facility] 1056 Work Phone: Start: 10-13-2014 HbA1c (Bld) [Mass fraction] HBA1C [facility] Start: 2011 Screening for malignant neoplasm of colon [facility] Start: 2011 SHINGRIX VACCINE (1 of 2) SHINGRIX VACCINE (1 of 2) [facility] Start: 2011 Zoster Vaccines (1 o f 2) Zoster Vaccines (1 of 2) [facility] Start: 2006 COLOGUARD (FIT-DNA) COLOGUARD (FIT-D NA) [facility] Start: 2006 Colonoscopy COLONOSCOPY [facility] Start: 2006 COLORECTAL CANCER SCREENING COLORECTAL CANCER SCREENING [facility] Start: [address] COLONOGRAPHY [facility] Start: 2006 FECAL OCCULT BLOOD FECAL OCCULT BLOO D [facility] Start: 2006 Screening for malignant neoplasm of colon [facility] Start: [address] [facility] Start: 2003 PAP TESTING PAP TESTING [facility] Start: 2001 Mammography [facility] Start: 2001 Screening for malignant neoplasm of breast [facility] Start: 1991 HPV TESTING HPV TESTING [facility] Start: 1991 Screening for malignant neoplasm of cervix HPV Testing [facility] Start: 1983 DTaP/Tdap/Td Vaccine s (1 - Tdap) DTaP/Tdap/Td Vaccines (1 - Tdap) [facility] Start: 1982 PAP TESTING PAP TESTING [facility] Start: 1982 Screening for malignant neoplasm of cervix [facility] Start: 02-08-1980 Urine microalbumin profile [facility] Start: 1979 ANNUAL PCP TEAM CHRONIC DISEASE VISIT ANNUAL PCP TEAM CHRONIC DISEASE VISIT [facility] Start: 1979 BP CONTROLLED (<130/80) BP CONTROLLED (<130/80) [facility] Start: 1979 Depression Screening Depression Scre ening [facility] Start: 1979 Hepatitis B surface antibody level LDL CHOLESTEROL [facility] Start: 1979 HEPATITIS [facility] Start: 1979 Hepatitis C screening Hepatitis C Sc [facility] Start: 1979 HIV SCREENING HIV SCREENING [facility] Start: 1979 HIV screening HIV Screening [facility] Start: 1979 SPIROMETRY SPIROMETRY [facility] Start: 1977 ONE PNEUMOVAX PRIOR TO AGE 65 ONE PNEUMOVAX PRIOR TO AGE 65 [facility] Start: 1973 Adult depression screening assessment DEPRESSION SCREENING [facility] Start: 1971 [object Object] DIABETIC FOOT EXAM C [facility] Start: 1971 Diabetic foot examination [facility] Start: 1971 Glaucoma screening [facility] Start: 1971 Hepatitis B screening URINE ALBUMIN:CREATININE RATIO [facility] Start: 1971 Hepatitis C antibody , confirmatory test DILATED RETINAL EXAM [facility] Start: 1967 PNEUMOCOCCAL (1 - PCV) PNEUMOCOCCAL (1 - PCV) [facility] Start: 1967 Pneumococcal vaccination [facility] Start: 1967 Pneumococcal Vaccine : Pediatrics (0 to 5 Years) and At-Risk Patients (6 to 64 Years) (1 - PCV) Pneumococcal Vaccine: Pediatrics (0 to 5 Years) and At-Risk Patients (6 to 64 Years) (1 - PCV) [facility] Start: 1962 MMR Vaccines (1 of 1 - Standard series) MMR Vaccines (1 of 1 - Standard series) [facility] Start: 1961 COVID-19 VACCINE (#1) COVID-19 VACCI NE (#1) [facility] Start: 1961 HIV screening HIV Screening [facility] Start: 1961 Screening for malignant neoplasm of colon [facility] Start: 1961 Yearly Adult Physical Yearly Adult P [facility] End: 07-31-2024 MRI ANKLE WO IVCON LEFT MRI ANKLE WO IVCON LEFT Radiology Routine Disorder of bone 1 Occurrences starting 07/02/2023 until 07/31/2024 [facility] Work Phone: Comment on above: 1 Occurrences starti ng 07/02/2023 until 07/31/2024 End: 03-06-2022 Radex ankle complete minimum 3 views XR ANKLE GENERAL 3V AP/LAT/OBL BILAT Radiology Routine Pain 1 Occurrences starting 02/05/2021 until 03/06/2022 [facility] Comment on above: 1 Occurrences starti ng 02/05/2021 until 03/06/2022 End: 03-06-2022 Radex foot complete minimum 3 views XR FOOT GENERAL 3V AP/LAT/OBL RT Radiology Routine Pain 1 Occurrences starting 02/05/2021 until 03/06/2022 [facility] Comment on above: 1 Occurrences starti ng 02/05/2021 until 03/06/2022 End: 07-31-2024 XR ANKLE GENERAL 3V AP/LAT/OBL LEFT XR ANKLE GENERAL 3V AP/LAT/OBL LEFT Radiology Routine Disorder of bone 1 Occurrences starting 07/02/2023 until 07/31/2024 [facility] Work Phone: Comment on above: 1 Occurrences starti ng 07/02/2023 until 07/31/2024 End: 05-19-2024 XR ANKLE GENERAL 3V AP/LAT/OBL RIGHT XR ANKLE GENERAL 3V AP/LAT/OBL RIGHT Radiology Routine Charcot's joint of right ankle 1 Occurrences starting 04/20/2023 until 05/19/2024 [facility] Work Phone: Comment on above: 1 Occurrences starti ng 04/20/2023 until 05/19/2024 End: 07-03-2024 XR ANKLE GENERAL 3V AP/LAT/OBL RIGHT XR ANKLE GENERAL 3V AP/LAT/OBL RIGHT Radiology Routine Charcot ankle, right 1 Occurrences starting 06/04/2023 until 07/03/2024 [facility] Work Phone: Comment on above: 1 Occurrences starti ng 06/04/2023 until 07/03/2024 XR ANKLE GENERAL 3V AP/LAT/OBL RIGHT XR ANKLE GENERAL 3V AP/LAT/OBL RIGHT Radiology Routine Charcot ankle, right 07/02/2023 10:35 AM EDT [facility] Work Phone: End: 08-26-2024 XR ANKLE GENERAL 3V AP/LAT/OBL RIGHT XR ANKLE GENERAL 3V AP/LAT/OBL RIGHT Radiology Routine Disease of bone 1 Occurrences starting 07/28/2023 until 08/26/2024 [facility] Work Phone: Comment on above: 1 Occurrences starti ng 07/28/2023 until 08/26/2024 End: 09-28-2024 XR ANKLE GENERAL 3V AP/LAT/OBL RIGHT XR ANKLE GENERAL 3V AP/LAT/OBL RIGHT Radiology Routine Diabetes mellitus due to underlying condition with diabetic autonomic neuropathy, with long-term current use of insulin ([facility]) 1 Occurrences starting 08/30/2023 until 09/28/2024 [facility] Work Phone: Comment on above: 1 Occurrences starti ng 08/30/2023 until 09/28/2024 XR ANKLE GENERAL 3V AP/LAT/OBL RIGHT XR ANKLE GENERAL 3V AP/LAT/OBL RIGHT Radiology Routine Diabetes mellitus due to underlying condition with diabetic autonomic neuropathy, with long-term current use of insulin (HCC) 09/06/2023 1:28 PM EDT [facility] Work Phone: End: 10-05-2024 XR FOOT GENERAL 3V AP/LAT/OBL BILATERAL XR FOOT GENERAL 3V AP/LAT/OBL BILATERAL Radiology Routine Diabetes mellitus due to underlying condition with diabetic autonomic neuropathy, with long-term current use of insulin (HCC) 1 Occurrences starting 09/06/2023 until 10/05/2024 [facility] Work Phone: Comment on above: 1 Occurrences starti ng 09/06/2023 until 10/05/2024 End: 05-19-2024 XR TIBIA FIBULA 2V AP/LAT LEFT XR TIBIA FIBULA 2V AP/LAT LEFT Radiology Routine Leg abscess 1 Occurrences starting 04/20/2023 until 05/19/2024 [facility] Work Phone: Comment on above: 1 Occurrences starti ng 04/20/2023 until 05/19/2024 [facility] 1057 Work Phone: [facility] NEGATED[facility] Highlighted row has been ruled out! Planned Goals not documented [facility] Work Phone: Payers Date Payer Category Payer Self-pay 2021 Unknown 2021 Unknown [id number] 2020 Medicaid MEDICAID [facility] MEDICAID [id number] 2020-Present Medicaid [id number] 2020 Medicaid MEDICAID [facility] MEDICAID [id number] 2020-Present [phone] [address] [place] [address] Medicaid [id number] 2020 Medicaid [id number] 2016 Medicare MEDICARE MEDICAR E A AND B [id number] 2016-Present [place], [place] Medicare [id number] 2016 Medicare [id number] 1961 Unknown [id number] 1961 Unknown [id number] [id number] 1961 Unknown [id number] [id number] 1961 Unknown [id number] [id number] 1961 Unknown [id number] 2.16.840.1.315125.3.579.2.1045 1961 Unknown [id number] 2.16.840.1.093667.3.579.2.1045 1961 Unknown [id number] [id number] 1961 Unknown [id number] 2.16.840.1.066909.3.579.2.1045 1961 Unknown [id number] 2.16.840.1.558744.3.579.2.1045 1961 Unknown [id number] [id number] 1961 Unknown [id number] [id number] 1961 Unknown [id number] 2.16.840.1.604201.3.579.2.1244 1961 Unknown [id number] [id number] 1961 Unknown [id number] Social History Date Type Detail Facility Start: 06-11-2011 End: 06-27-2014 Tobacco smoking status RIIS Former smoker [facility] Start: 04-24-1999 End: 04-24-2009 History of tobacco use Current smoker [facility] Start: 04-24-1999 End: 04-24-2009 History of tobacco use Cigarette Smoker [facility] Start: 06-27-2014 End: 02-24-2021 Cigarettes smoked current (pack per day) - Reported [facility] Start: 06-27-2014 End: 07-02-2023 Alcohol intake Current drinker of alcohol (finding) [facility] Start: 1960 Sex Assigned At Not on file [facility] Start: 03-11-2021 End: 04-10-2021 Exposure to SARS-CoV-2 (event) Not sure [facility] Start: 1960 Sex Assigned At Female C [facility] Start: 02-24-2021 End: 05-17-2023 Tobacco use panel [facility] National Score (1-100), lower number is lower risk 81 [facility] Start: 04-20-2023 Gender identity Identifies as female gender (finding) [facility] Tobacco smoking status NHIS Tobacco smoking consumption unknown [facility] Work Phone: Start: 11-03-2023 Alcohol Comment not on a weekly basi s [facility] NEGATED: Highlighted row - Former smoker [facility] Janette & Roberto [facility] [facility] [address] Work Phone: Medical Equipment Procedure Code Equipment Code Equipment Origin al Text Equipment Identifier Dates BD Insulin Syrin ge Ultrafine 29G X 1/2 1 ML FOUR TIMES DAILY. Quantity: 3 Refills: Collins Ruelas DO Active 200 Miscellaneous Box FreeStyle Lancet s test 3 times daily as instructed Quantity: 1 Refills: Collins Ruelas DO Start : 20-Mar-2019 Active 100 Unit [...] FOUR TIMES DAILY. Quantity: 2 Refills: Cynthia GoodwinalberCollins bethea DO Start : 08-Mar-2014 Active 100 Unit Box Start: 03-08-2014 BD Insulin Syrin ge Ultrafine 29G X 1/2 1 ML FOUR TIMES DAILY. Quantity: 3 Refills: Cynthia Janette VILLELA Collins Active 200 Miscellaneous Box FreeStyle Lancet s [...] daily as instructed Quantity: 1 Refills: Cynthia Savage Collins Start : 20-Mar-2019 Active 100 Unit Box Start: 03-20-2019 FreeStyle Lite T est In Vitro Strip TESTS 3 TIMES PER WEEK. Quantity: 1 Refills: Cynthia Savage DO Collins Start : 20-Mar-2019 Active 100 Strip Box Start: 03-20-2019 ReliOn Insulin Syringe 29G X 1/2 1 ML FOUR TIMES DAILY. Quantity: 2 Refills: Cynthia Goodwinalberlake VILLELA Collins Start : 08-Mar-2014 Active 100 Unit Box Start: 03-08-2014 BD Insulin Syrin ge Ultrafine 29G X 1/2 1 ML FOUR TIMES DAILY. Quantity: 3 Refills: Cynthia Collins Savage DO Active 200 Miscellaneous Box FreeStyle Lancet s test 3 times daily as instructed Quantity: 1 Refills: Cynthia Goodwinalberlake Collins Start : 20-Mar-2019 Active 100 Unit Box Start: 03-20-2019 FreeStyle Lite T est In Vitro Strip TESTS 3 TIMES PER WEEK. Quantity: 1 Refills: Cynthia Savage Collins Start : 20-Mar-2019 Active 100 Strip Box Start: 03-20-2019 ReliOn Insulin Syringe 29G X 1/2 1 ML FOUR TIMES DAILY. Quantity: 2 Refills: Cynthia Goodwinalberlake Collins Start : 08-Mar-2014 Active 100 Unit Box Start: 03-08-2014 Wti-Tx-I-Kind Implant - [id number] Start: 06-29-2011 Comment on above: Description: K-WIRE Xaq-Uv-H-Kind Implant - [id number] Start: 04-24-2014 Comment on above: Description: THREADE D GUIDE WIRE Screw Bn 2.4mm 3 0mm Ti Cmf Lag - [id number] Start: 06-29-2011 Comment on above: Description: OSTEOME D CANNULATED SCREW Screw Bn 4mm 44m m Lcp Ti St - [id number] Start: 04-24-2014 Phantom 2.0 Acti vcor Nil [id number] Start: 05-17-2023 Phantom Nail Crossing Screw 5.0mm X 26mm Length Headed [id number]_[facility] Start: 05-17-2023 Graft, Flexigraf t, Hamstring, Smi Tendinosus, Frozen Case [id number] Start: 12-09-2021 Comment on above: Description: Convert ed from [facility]. Please see archived information for full log information. Paste Mix Plus, 5cc Case [id number]_[facility] Start: 06-05-2022 Comment on above: Description: Convert ed from [facility]. Please see archived information for full log information. Bone, Cancellous , Crushed, .1-4mm 15cc, Freeze Dried Case [id number]_[facility] Start: 08-13-2022 Comment on above: Description: Convert ed from [facility]. Please see archived information for full log information. Graft, Flexigraf t, Hamstring, Smi Tendinosus, Frozen Case [id number]_[facility] Start: 08-21-2022 Comment on above: Description: Convert ed from [facility]. Please see archived information for full log information. 22 Mm Concave Re amer Case [id number]_[facility] Start: 12-09-2021 Comment on above: Description: Convert ed from [facility]. Please see archived information for full log information. Dynaclip Procedu re Pack Case [id number]_[facility] Start: 06-05-2022 Comment on above: Description: Convert ed from [facility]. Please see archived information for full log information. 2.7 Overdrill Ca se [id number] Start: 08-13-2022 Comment on above: Description: Convert ed from [facility]. Please see archived information for full log information. Quick Whip Stitc h Case [id number]_[facility] Start: 08-21-2022 Comment on above: Description: Convert ed from [facility]. Please see archived information for full log information. Cement Simplex Gentamicin Bone High Viscosity 20ml Sterile 40gm - [id number] Start: 11-10-2023 Phantom Nail Crossing Screw 5.0mm X 32mm [id number] Start: 05-17-2023 Phantom Nail Calcaneus Screw Headless 7.2mm X 80mm [id number] Start: 05-17-2023 Phantom Nail Calcaneus Screw 7.2mm 85mm [id number] Start: 05-17-2023 Phantom Nail Crossing Screw Headed 5.0mm X 34mm Ns [id number] Start: 05-17-2023 Functional Status Date Assessment Result Facility NEGATED: Highlighted row Functional performance Functional status health issues are not documented Disease [facility] 1057 Work Phone: Mental Status Date Assessment Result Facility NEGATED: Highlighted row Cognitive function [Interpretation] Cognitive status health issues are not documented [facility] 1057 Work Phone: Clinical Notes 05-06-2021 to 11-25-2023 Cleo Aragon, RT(R) - 10/14/2023 11:30 AM Nikki Vidal, RT(R) - 10/11/2023 12:28 PM Macario Sykes DPM - 09/06/2023 2:17 PM Gia Pinzon RT(R) - 09/06/2023 1:31 PM EDT Note Date & Type Note Facility 11-25-2023 Note HNO ID: [id number] Author: MACARIO SANTOS DPM Service: ? Author [...] reflux, constipation, diarrhea, (more content not included)... [facility] 11-10-2023 Note HNO ID: [id number] Author: Donell Boateng Service: Pharmacy Author Type: ? Type: Plan of Care Filed: 11/11/2023 10:18 AM Note Text: PHARMACY BEDSIDE DELIVERY SERVICE Patient Name: Marie Sexton The marked outpatient medications were filled at [facility] pharmacy and picked up at the [...] your Primary Care Provider. Donell Boateng PAGER: [phone] November 11, 2023 10:18 AM [facility] 11-10-2023 Note HNO ID: [id number] Author: Olivia Faulkner APRN.BRUSH WASHER Service: Anesthesiology Author Type: Nurse Analyst Sales Type: Anesthesia Procedure Notes Filed: 11/10/2023 1:12 PM Note Text: ANESTHESIOLOGY PROCEDURE NOTE Airway General Information Procedure Start Time/Medication Administration: 11/10/2023 1:06 PM Patient location during procedure: OR Patient identity confirmed: arm band and patient Staffing BRUSH WASHER: Olivia Faulkner APRN.BRUSH WASHER Performed by: LYDIA Indications and Patient Condition [...] no Airway not difficult SIGNATURE: Olivia Faulkner APRN.BRUSH WASHER PATIENT NAME: Marie Sexton DATE: November 10, 2023 TIME: 1:11 PM CSN: [id number] [facility] 11-10-2023 Note HNO ID: [id number] Author: Dheeraj Rodrigues DO Service: Pain Management [...] Marie Sexton DATE: November 10, 2023 TIME: 1:00 PM CSN: [id number] [facility] 11-10-2023 Note HNO ID: [id number] Author: Dheeraj Rodrigues DO Service: Pain Management [...] November 10, 2023 TIME: 12:57 PM CSN: [id number] [facility] 10-14-2023 Note HNO ID: [id number] Author: Cleo Aragon RT(Aristides) Service: ? Author Type: Psychologist Chief Type: Progress Notes Filed: 10/14/2023 11:46 AM [...] IV DATA: Not applicable SIGNED BY: RT Dev(Aristides) October 14, 2023 11:44 AM [facility] 10-14-2023 History of Present illness Narrative Radiology Service [...] RT Dev(R) October 14, 2023 11:44 AM documented in this encounter [facility] 10-11-2023 Note HNO ID: [id number] Author: Macario Santos DPM Service: ? Author [...] bilateral. Capillary r (more content not included)... [facility] 10-11-2023 Note HNO ID: [id number] Author: iNkki Kearney RT(R) Service: ? Author Type: Technologist [...] RT Amelia(R) October 11, 2023 12:28 PM [facility] 10-11-2023 History of Present illness Narrative [...] 2023 12:28 PM documented in this encounter [facility] 09-06-2023 Note HNO ID: [id number] Author: Macario Santos DPM Service: ? Author [...] problems, peripheral weakness/paresthesias or numbness of concern. [facility]: No new joint pain, swelling, or erythema. PSY: No concerns regarding depression, anxiety or panic. INTEGUMENTARY: Skin changes as noted below. (more content not included)... [facility] 09-06-2023 Note HNO ID: [id number] Author: Gia Kilgore RT(R) Service: ? Author [...] RT Marivel(R) September 06, 2023 1:31 PM [facility] 09-06-2023 History of Present illness Narrative [...] the right foot and ankle as described. Juvenile Officer: SUBHASH Transcribe Date/Time: Apr 22 2023 4:18P... Last MRI Ankle - Impression Only MRI ANKLE WO IVCON RT Exam End: 04/29/2021 11:40 AM (Final result) Impression: IMPRESSION: POSTERIOR TIBIALIS TENOSYNOVITIS. 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 ABNORMAL APPEARANCES OF THE SPRING LIGAMENT AND CALCANEOFIBULAR LIGAMENT. FINDINGS SUGGESTIVE OF MILD PLANTAR FASCIITIS. DIABETIC MUSCLE ATROPHY. Juvenile Officer: SUBHASH ... Last MRI Foot - Impression [...] which included preparing to see the patient, [id number] patient care, completing clinical documentation, obtaining and/or reviewing separately obtained history, performing a medically appropriate examination, counseling and educating the patient/family/caregiver, and ordering medications, tests, or procedures. documented in this encounter [facility] 09-06-2023 History of Present illness Narrative [...] 2023 1:31 PM documented in this encounter [facility] 08-05-2023 Note HNO ID: [id number] Author: Macario Santos DPM Service: ? Author [...] Tibial pulses ar (more content not included)... [facility] 08-05-2023 Note HNO ID: [id number] Author: Rosie Elizondo RT(R) Service: ? Author [...] RT Anup(R) August 05, 2023 2:15 PM [facility] 08-05-2023 History of Present illness Narrative [...] 2023 2:15 PM documented in this encounter [facility] 07-02-2023 Note HNO ID: [id number] Author: Macario Santos DPM Service: ? Author [...] and ROS ob (more content not included)... [facility] 07-02-2023 Note HNO ID: [id number] Author: Omayra Padgett, RT(R) Service: ? Author Type: Technologist Type: [...] RT Radhames(R) July 02, 2023 10:42 AM [facility] 07-02-2023 History of Present illness Narrative [...] the right foot and ankle as described. Juvenile Officer: SUBHASH Transcribe Date/Time: Apr 22 2023 4:18P... Last MRI Ankle - Impression Only MRI ANKLE WO IVCON RT Exam End: 04/29/2021 11:40 AM (Final result) Impression: IMPRESSION: POSTERIOR TIBIALIS TENOSYNOVITIS. 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 ABNORMAL APPEARANCES OF THE SPRING LIGAMENT AND CALCANEOFIBULAR LIGAMENT. FINDINGS SUGGESTIVE OF MILD PLANTAR FASCIITIS. DIABETIC MUSCLE ATROPHY. Juvenile Officer: SUBHASH ... Last MRI Foot - Impression [...] which included preparing to see the patient, [id number] patient care, completing clinical documentation, obtaining and/or reviewing separately obtained history, performing a medically appropriate examination, counseling and educating the patient/family/caregiver, and ordering medications, tests, or procedures. documented in this encounter [facility] 07-02-2023 History of Present illness Narrative [...] 2023 10:42 AM documented in this encounter [facility] 07-02-2023 Miscellaneous Notes RADIOLOGY SERVICE PROGRESS NOTE DATE OF SERVICE: July 02, 2023 TIME OF SERVICE: 10:03AM EVENT: ARRIVED IN WHEELCHAIR ADDITIONAL EVENT DETAILS: NA SIGNATURE: Francesca Kaur PATIENT NAME: Marie Sexton DATE: July 02, 2023 TIME: 10:12 AM PAGER/CONTACT #: documented in this encounter [facility] 06-07-2023 Note HNO ID: [id number] Author: Mahendra Prajapati MA Service: ? Author Type: Basic Sciences Professor Type: Progress Notes Filed: 06/07/2023 2:52 PM Note Text: Marie presents today for splint removal. Marie's splint was removed and skin cleansed. Marie tolerated this procedure well. Directed Marie and daughter to xray prior to appt w/ Dr. Santos. Mahendra Prajapati MA Splint was removed by Lorraine Yancey RN [facility] 06-07-2023 Note HNO ID: [id number] Author: Macario Santos DPM Service: ? Author [...] anxiety or eula (more content not included)... [facility] 06-07-2023 Note HNO ID: [id number] Author: Sudha Wadsworth RT(R) Service: ? Author [...] RT Rod(R) June 07, 2023 12:07 PM [facility] 06-03-2023 Miscellaneous Notes Message from Milk: Refills have been requested for the following medications: oxyCODONE-acetaminophen (PERCOCET) 5-325 mg tablet [Dr. Greg Santos] Preferred pharmacy: [facility] BEDS AT [facility] [address] [place], [place] [id number] - [address] [place] [phone] Delivery method: Pickup documented in this encounter [facility] 05-27-2023 Note HNO ID: [id number] Author: Regi Cherry Ma Service: ? Author [...] expressed thanks and understanding. Regi Cherry Ma [facility] 05-27-2023 History of Present illness Narrative [...] Regi Cherry Ma documented in this encounter [facility] 05-26-2023 Miscellaneous Notes Contacted patient and scheduled a Cast room appointment on 05/27/2023. Patient calling in stating that her cast is wet and she is trying to dry it with a blow mccann. She is asking what should she do? Please call patient can be reached at [phone] Thank you documented in this encounter [facility] 05-23-2023 Miscellaneous Notes Attempted to call pt to check on status of CADD pump. No answer, left detailed VM. Kaylyn London APRN.GERALDO documented in this encounter [facility] 05-19-2023 Miscellaneous Notes Pt is POD# 2. S/P Right Leg removal of deep hardware Right Ankle fusion Right subtalar joint fusion Fibular osteotomy right ankle [place] of bone marrow autograft right leg with [...] Mara Stallworth RN Acute Pain Management Service [facility] documented in this encounter [facility] 05-18-2023 Note HNO ID: [id number] Author: Giselle Nguyen RN Service: Care Management [...] 18, 2023 TIME: 10:00 AM CONTACT #: [phone] [facility] 05-17-2023 Note HNO ID: [id number] Author: Simin Cervantes RPh Service: Pharmacy Author Type: Pharmacist Type: Plan of Care Filed: 05/17/2023 6:43 PM Note Text: PHARMACY MEDICATION REVIEW Patient Name: Marie Sexton : 1960 The following medications were updated within the [facility] medication list: Medications ADDED to [facility] medication list Oxycodone-acetaminophen Humalog mix 75-25 Medications CHANGED on [facility] medication list Gabapentin Fluoxetine Lantus Levothyroxine Medications REMOVED from [facility] medication list Trazodone Hydrocodone-acetaminophen Turmeric (duplicate) Symbicort [...] Yes Completed by: Simin Cervantes PharmD All [facility] medications addressed by LIP Patient interested in Bedside Delivery Services or using OP Pharmacy at discharge? Unable to assess Preferred outpatient pharmacy: [facility] [address] [place] [id number] [address] [facility] [phone] Allergies: Codeine GI Upset Demerol [Meperidine* [...] Facility-Administered Medications: None Simin Cervantes RPh 05/17/2023 [facility] 05-17-2023 Note HNO ID: [id number] Author: Francesca Young RN Service: Nursing Author Type: Registered Nurse Type: Nursing Progress Note Filed: 05/17/2023 3:54 PM Note Text: Report to DEMI Jaffe resuming care of patient. [facility] 05-17-2023 Note HNO ID: [id number] Author: Carlos Barbour MD Service: Anesthesiology Author [...] May 17, 2023 TIME: 1:51 PM CSN: [id number] [facility] 05-17-2023 Note HNO ID: [id number] Author: Carlos Barbour MD Service: Anesthesiology Author [...] specimen collected. Minimal or no blood loss Zcjxbema2d/transfer criteria are met upon discharge. SIGNATURE: Carlos Barbour MD PATIENT NAME: Marie Sexton DATE: May 17, 2023 TIME: 1:50 PM CSN: [id number] [facility] 05-17-2023 Note HNO ID: [id number] Author: Ramiro Smith MD Service: Anesthesiology Author [...] May 17, 2023 TIME: 8:19 AM CSN: [id number] [facility] 05-17-2023 Note HNO ID: [id number] Author: Ramiro Smith MD Service: Anesthesiology Author [...] SIGNATURE: Ramiro Smith MD PATIENT NAME: April Darshan DATE: May 17, 2023 TIME: 8:17 AM CSN: [id number] [facility] 05-17-2023 Note HNO ID: [id number] Author: SÁNCHEZ Junior Service: ? Author Type: Edge Inker Heels Type: Anesthesia Procedure Notes Filed: 05/17/2023 8:16 AM Note Text: ANESTHESIOLOGY PROCEDURE NOTE Airway General Information Procedure Start Time/Medication Administration: 05/17/2023 8:03 AM Patient location during procedure: OR Staffing Anesthesiologist: Amelia Camara MD CAA: SÁNCHEZ Junior Performed by: CAA student Indications and Patient Condition Indications for [...] May 17, 2023 TIME: 8:15 AM CSN: [id number] [facility] 05-17-2023 Note HNO ID: [id number] Author: Brigette Stallworth RN Service: Pain Management Author Type: Registered Nurse Type: Nursing Progress Note Filed: 05/17/2023 7:40 AM Note Text: Patient tolerated procedure very well. Report to primary nurse. [facility] 05-14-2023 Note HNO ID: [id number] Author: RT Myesha(R) Service: Nuclear Medicine Author [...] STATUS: Discontinued PROCEDURE TYPE: NM Stress: 13.1mCi [id number] was administered IV for Rest Imaging at 1145 by Juana BUTLERRT(N). 33.3 mCi Xj54b-[id number] was administered IV for Stress Imaging at 1311 by RT Myesha(R). PATIENT DISCHARGED TO: Ambulatory patient, left NM department area. A Diagnostic radioactive procedure has taken place, with no further precautions necessary other than routine body substance precautions. More information regarding radiation safety can be found using this link: [email or web address]%20P rotection %20-%20Diagnostic%20Nuclear%20Med icine%20Procedures.pdf SIGNATURE: RT Genet(R) PATIENT NAME: Marie Sexton DATE: May 14, 2023 TIME: 11:48 AM PAGER/CONTACT #: [facility] 05-14-2023 Note HNO ID: [id number] Author: Mai Valencia RN Service: Radiology Author [...] ALLERGIES: Reviewed and unchanged MEDICATIONS REVIEWED BY: Kitchen Clerk PROCEDURE TYPE: NM STRESS: 0.4 mg of [...] safety can be found using this link: [email or web address] rotection %20-%20Diagnostic%20Nuclear%20Med icine%20Procedures.pdf SIGNATURE: Mai Valencia RN PATIENT NAME: Marie Sexton DATE: May 14, 2023 TIME: 1:04 PM PAGER/CONTACT #:[phone] [facility] 05-14-2023 History of Present illness Narrative [...] STATUS: Discontinued PROCEDURE TYPE: NM Stress: 13.1mCi [id number]-Lfaspuj was administered IV for Rest Imaging at 1145 by Juana BUTLERRT(N). 33.3 mCi Ve45t-Wikrras was administered IV for Stress Imaging at 1311 by RT Myesha(R). PATIENT DISCHARGED TO: Ambulatory patient, left [place] department area. A Diagnostic radioactive procedure has taken place, with no further precautions necessary other than routine body substance precautions. More information regarding radiation safety can be found using this link: [email or web address] rotection%20-%20Diagnostic%20Nucl ear%20Medicine%20Procedures.pdf SIGNATURE: RT Genet(R) PATIENT NAME: Marie Sexton DATE: May 14, 2023 TIME: 11:48 AM PAGER/CONTACT #: RADIOLOGY SERVICE PROGRESS NOTE SERVICE DATE: 05/14/2023 SERVICE TIME: 1:04 PM PATIENT IDENTITY VERIFICATION COMPLETED USING TWO (2) STANDARD IDENTIFIERS: Name and Date of confirmed by patient verbally and Name and Date of confirmed by identification band PATIENT GENDER DATA: female ALLERGIES: Reviewed and unchanged MEDICATIONS REVIEWED BY: Kitchen Clerk PROCEDURE TYPE: NM STRESS: 0.4 mg of [...] safety can be found using this link: [email or web address]%[email or web address] rotection%20-%20Diagnostic%20Nucl ear%20Medicine%20Procedures.pdf SIGNATURE: Mai Valencia RN PATIENT NAME: Marie Sexton DATE: May 14, 2023 TIME: 1:04 PM PAGER/CONTACT #:[phone] documented in this encounter [facility] 05-12-2023 Instructions Indiana Clemens PA-C - 05/12/2023 9:32 AM EDT PATIENT PREOPERATIVE INSTRUCTIONS Macario Santos* has scheduled you for your procedure at this surgery center: [facility]: [phone] --[id number] [id number]. Please check in on the 1st floor [...] coffee creamer - NO pulp juices (ex. Huerfano juice) Is Patient Diabetic:Yes Preoperative Instructions for [...] Procedures: - YOU MUST HAVE A RESPONSIBLE PASTRY BAKER TAKE YOU HOME. A RAIL CREW MEMBER OR OFFICE EQUIPMENT MECHANIC CANNOT BE MADE A RESPONSIBLE PASTRY BAKER. - We recommend that a responsible person [...] Advance Directive, please fax a copy to [phone] or email to for it to be [...] Indiana Clemens PA-C documented in this encounter [facility] 05-12-2023 History and physical note HISTORY [...] fevers. Neuro: No history of TIA's, stroke, [employer] tumor, impaired sensorium, hemiplegia, paraplegia or quadraplegia. No neurological symptoms or problems. + peripheral neuropathy Respiratory: No history of current cough or dyspnea, or pneumonia in the past 6 weeks. No history of respiratory/pulmonary symptoms or problems. + former smoker + asthma uses inhalers PRN Cardiovascular: No history of HTN requiring medication, no history of angina, CHF, MO, cardiac surgery or stents. Denies rest pain, gangrene or revascularization/amputation for PVD. No history of cardiovascular symptoms or problems. + swelling foot on HCTZ GI: No history of GI symptoms or problems. No history of esophageal varices, recent ascites, or ETOH greater than 2 drinks per day. : No difficulty urinating, nocturia > 1 time per night or hematuria BILINGUAL BRANCH MANAGER: Negative for abnormal vaginal bleeding, abnormal vaginal [...] TIME: 9:19 AM documented in this encounter [facility] 05-07-2023 Note HNO ID: [id number] Author: Dana Goyal MD Service: ? Author Type: Physician Type: Progress Notes Filed: 05/07/2023 3:11 PM Note Text: Heart, Vascular and Thoracic [place] Natalia Shrestha Department of Cardiovascular Medicine SECTION OF INTERVENTIONAL CARDIOLOGY OUTPATIENT VISIT DATE 05/07/2023 OUTPATIENT VISIT TYPE New PRIMARY CARE PHYSICIAN: Collins Andrews ([facility]) [address] [place], [place] [id number] REFERRING PHYSICIAN: No referring provider defined for [...] (SYMBICORT) 160-4.5 mcg/actuatio (more content not included)... [facility] 05-07-2023 History of Present illness Narrative Images from the original note were not included. Heart, Vascular and Thoracic [place] Natal[facility] Shrestha Department of Cardiovascular Medicine SECTION OF INTERVENTIONAL CARDIOLOGY OUTPATIENT VISIT DATE 05/07/2023 OUTPATIENT VISIT TYPE New PRIMARY CARE PHYSICIAN: Collins Andrews ([facility]) [id number] [id number] REFERRING PHYSICIAN: No referring provider defined for [...] Diabetes mellitus type 2 with neurological manifestations ([facility]) PLAN AND RECOMMENDATIONS: -Nuclear stress test - [...] of Cardiovascular Medicine Heart, Vascular and Thoracic [place] [facility] Office Office Pager [phone] documented in this encounter [facility] 05-05-2023 Miscellaneous Notes 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 [facility] documented in this encounter [facility] 05-03-2023 Note HNO ID: [id number] Author: Macario Santos DPM Service: ? Author [...] are palpable b (more content not included)... [facility] 05-03-2023 History of Present illness Narrative [...] the hindfoot and midfoot without complication identified. Juvenile Officer: SUBHASH Transcribe Date/Time: Apr 23 2023 4:47P... Last CT Foot - Impression Only No resulted procedures found. Last CT Ankle - Impression Only CT ANKLE WO IVCON RIGHT Exam End: 04/22/2023 3:55 PM (Final result) Impression: IMPRESSION: Intact postoperative changes of the right foot and ankle as described. Juvenile Officer: SUBHASH Transcribe Date/Time: Apr 22 2023 4:18P... Last MRI Ankle - Impression Only MRI ANKLE WO IVCON RT Exam End: 04/29/2021 11:40 AM (Final result) Impression: IMPRESSION: POSTERIOR TIBIALIS TENOSYNOVITIS. 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 ABNORMAL APPEARANCES OF THE SPRING LIGAMENT AND CALCANEOFIBULAR LIGAMENT. FINDINGS SUGGESTIVE OF MILD PLANTAR FASCIITIS. DIABETIC MUSCLE ATROPHY. Juvenile Officer: SUBHASH ... Last MRI Foot - Impression [...] which included preparing to see the patient, [id number] patient care, completing clinical documentation, obtaining and/or reviewing separately obtained history, performing a medically appropriate examination, counseling and educating the patient/family/caregiver, and ordering medications, tests, or procedures. documented in this encounter [facility] 04-22-2023 Note HNO ID: [id number] Author: RT Moisés(R) Service: ? Author Type: Technologist Type: Progress [...] RT Moisés(R) April 22, 2023 3:56 PM [facility] 04-22-2023 Note HNO ID: [id number] Author: RT Anup(R) Service: ? Author Type: [...] RT Anup(R) April 22, 2023 2:27 PM [facility] 04-22-2023 Note HNO ID: [id number] Author: Macario Santos DPM Service: ? Author [...] have confirmed an (more content not included)... [facility] 04-22-2023 History of Present illness Narrative [...] the hindfoot and midfoot without complication identified. Juvenile Officer: SUBHASH Transcribe Date/Time: Apr 23 2023 4:47P... Last CT Foot - Impression Only No resulted procedures found. Last CT Ankle - Impression Only CT ANKLE WO IVCON RIGHT Exam End: 04/22/2023 3:55 PM (Final result) Impression: IMPRESSION: Intact postoperative changes of the right foot and ankle as described. Juvenile Officer: SUBHASH Transcribe Date/Time: Apr 22 2023 4:18P... Last MRI Ankle - Impression Only MRI ANKLE WO IVCON RT Exam End: 04/29/2021 11:40 AM (Final result) Impression: IMPRESSION: POSTERIOR TIBIALIS TENOSYNOVITIS. 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 ABNORMAL APPEARANCES OF THE SPRING LIGAMENT AND CALCANEOFIBULAR LIGAMENT. FINDINGS SUGGESTIVE OF MILD PLANTAR FASCIITIS. DIABETIC MUSCLE ATROPHY. Juvenile Officer: SUBHASH ... Last MRI Foot - Impression [...] which included preparing to see the patient, [id number] patient care, completing clinical documentation, obtaining and/or reviewing separately obtained history, performing a medically appropriate examination, counseling and educating the patient/family/caregiver, and ordering medications, tests, or procedures. documented in this encounter [facility] 03-22-2023 Note History & Physical R [...] the note. I personally evaluated the patient [id number] Electronic Signatures: Sirena Oconnor (DPM (Resident)) (Signed 22-Mar-2023 12:37) Authored: History & Physical Reviewed, ERAS, Consent, Note Completion Fang Rodriguez (DPM) (Signed 22-Mar-2023 13:06) Authored: Note Completion Co-Signer: History & Physical Reviewed, ERAS, Consent, Note Completion Last Updated: 22-Mar-2023 13:06 by Fang Rodriguez (DPM) [facility] 03-22-2023 History and physical note History [...] Last Updated: 22-Mar-2023 13:06 by Fang Rodriguez) [facility] 03-22-2023 History and physical note History [...] by Fang Rodriguez) documented in this encounter [facility] Work Phone: 08-21-2022 Note History & [...] the note. I personally evaluated the patient [id number] Electronic Signatures: Darin Myers (FLASH (Resident)) (Signed 21-Aug-2022 11:22) Authored: History & Physical Reviewed, ERAS, Consent, Note Completion Fang Rodriguez) (Signed 21-Aug-2022 12:39) Authored: Note Completion Co-Signer: History & Physical Reviewed, ERAS, Consent, Note Completion Last Updated: 21-Aug-2022 12:39 by Fang Rodriguez) [facility] 08-13-2022 Note History & Physical R [...] the note. I personally evaluated the patient [id number] Electronic Signatures: Sirena Oconnor (DPM (Resident)) (Signed 13-Aug-2022 06:59) Authored: History & Physical Reviewed, ERAS, Consent, Note Completion Fang Rodriguez (DP) (Signed 13-Aug-2022 07:41) Authored: Note Completion Co-Signer: History & Physical Reviewed, ERAS, Consent, Note Completion Last Updated: 13-Aug-2022 07:41 by Fang Rodriguez ([facility]) [facility] 06-05-2022 Note History & Physical R [...] the note. I personally evaluated the patient [id number] Electronic Signatures: Ly Sheikh (DP (Resident)) (Signed 05-Jun-2022 06:50) Authored: History & Physical Reviewed, ERAS, Consent, Note Completion Fang Rodriguez (FLASH) (Signed 05-Jun-2022 09:32) Authored: Note Completion Co-Signer: History & Physical Reviewed, ERAS, Consent, Note Completion Last Updated: 05-Jun-2022 09:32 by Fang Rodriguez (FLASH) [facility] 05-06-2021 History of Past i llness Narrative Problem Noted Date Resolved Date Difficulty walking 05/06/2021 05/17/2023 diabetes 05/17/2023 Arthritis 05/17/2023 documented as of this encounter (statuses as of 05/20/2023) [facility] History of Past illness Narrative* Problem Noted Date Diagnosed Date Resolved Date Difficulty walking 05/06/2021 3 diabetes 05/17/2023 Arthritis 05/17/2023 documented as of this encounter (statuses as of 05/23/2023) [facility] History of Past illness Narrative* Problem Noted Date Diagnosed Date Resolved Date Difficulty walking 05/06/2021 3 diabetes 05/17/2023 Arthritis 05/17/2023 documented as of this encounter (statuses as of 05/27/2023) [facility] History of Past illness Narrative* Problem Noted Date Diagnosed Date Resolved Date Difficulty walking 05/06/2021 3 diabetes 05/17/2023 Arthritis 05/17/2023 documented as of this encounter (statuses as of 05/28/2023) [facility] History of Past illness Narrative* Problem Noted Date Diagnosed Date Resolved Date Difficulty walking 05/06/2021 3 diabetes 05/17/2023 Arthritis 05/17/2023 documented as of this encounter (statuses as of 06/03/2023) [facility] History of Past illness Narrative* Problem Noted Date Diagnosed Date Resolved Date Difficulty walking 05/06/2021 3 diabetes 05/17/2023 Arthritis 05/17/2023 documented as of this encounter (statuses as of 06/04/2023) [facility] History of Past illness Narrative* Problem Noted Date Diagnosed Date Resolved Date Difficulty walking 05/06/2021 3 diabetes 05/17/2023 Arthritis 05/17/2023 documented as of this encounter (statuses as of 06/21/2023) [facility] History of Past illness Narrative* Problem Noted Date Diagnosed Date Resolved Date Difficulty walking 05/06/2021 3 diabetes 05/17/2023 Arthritis 05/17/2023 documented as of this encounter (statuses as of 07/03/2023) [facility] History of Past illness Narrative* Problem Noted Date Diagnosed Date Resolved Date Difficulty walking 05/06/2021 3 diabetes 05/17/2023 Arthritis 05/17/2023 documented as of this encounter (statuses as of 07/05/2023) [facility] History of Past illness Narrative* Problem Noted Date Diagnosed Date Resolved Date Difficulty walking 05/06/2021 3 diabetes 05/17/2023 Arthritis 05/17/2023 documented as of this encounter (statuses as of 07/08/2023) [facility] History of Past illness Narrative* Problem Noted Date Diagnosed Date Resolved Date Difficulty walking 05/06/2021 3 diabetes 05/17/2023 Arthritis 05/17/2023 documented as of this encounter (statuses as of 07/21/2023) [facility] History of Past illness Narrative* Problem Noted Date Diagnosed Date Resolved Date Difficulty walking 05/06/2021 3 diabetes 05/17/2023 Arthritis 05/17/2023 documented as of this encounter (statuses as of 07/28/2023) [facility] History of Past illness Narrative* Problem Noted Date Diagnosed Date Resolved Date Difficulty walking 05/06/2021 3 diabetes 05/17/2023 Arthritis 05/17/2023 documented as of this encounter (statuses as of 08/06/2023) [facility] History of Past illness Narrative* Problem Noted Date Diagnosed Date Resolved Date Difficulty walking 05/06/2021 3 diabetes 05/17/2023 Arthritis 05/17/2023 documented as of this encounter (statuses as of 09/06/2023) [facility] History of Past illness Narrative* Problem Noted Date Diagnosed Date Resolved Date Difficulty walking 05/06/2021 3 diabetes 05/17/2023 Arthritis 05/17/2023 documented as of this encounter (statuses as of 09/07/2023) [facility] History of Past illness Narrative* Problem Noted Date Diagnosed Date Resolved Date Difficulty walking 05/06/2021 3 diabetes 05/17/2023 Arthritis 05/17/2023 documented as of this encounter (statuses as of 09/28/2023) [facility] History of Past illness Narrative* Problem Noted Date Diagnosed Date Resolved Date Difficulty walking 05/06/2021 3 diabetes 05/17/2023 Arthritis 05/17/2023 documented as of this encounter (statuses as of 09/30/2023) [facility] History of Past illness Narrative* Problem Noted Date Diagnosed Date Resolved Date Difficulty walking 05/06/2021 3 diabetes 05/17/2023 Arthritis 05/17/2023 documented as of this encounter (statuses as of 10/11/2023) [facility] History of Past illness Narrative* Problem Noted Date Diagnosed Date Resolved Date Difficulty walking 05/06/2021 3 diabetes 05/17/2023 Arthritis 05/17/2023 documented as of this encounter (statuses as of 10/27/2023) [facility] History of Past illness Narrative* Problem Noted Date Diagnosed Date Resolved Date Difficulty walking 05/06/2021 3 diabetes 05/17/2023 Arthritis 05/17/2023 documented as of this encounter (statuses as of 10/27/2023) [facility] of Past illness Narrative* Problem Noted Date Diagnosed Date Resolved Date Difficulty walking 05/06/2021 3 Diabetic foot ulcer 12/21/2013 11/03/20 23 diabetes 05/17/2023 Arthritis 05/17/2023 documented as of this encounter (statuses as of 12/17/2023) [facility] History of Past illness Narrative* Problem Noted Date Diagnosed Date Resolved Date Difficulty walking 05/06/2021 3 Diabetic foot ulcer 12/21/2013 11/03/20 23 diabetes 05/17/2023 Arthritis 05/17/2023 documented as of this encounter (statuses as of 12/29/2023) [facility] History of Past illness Narrative* Problem Noted Date Diagnosed Date Resolved Date Difficulty walking 05/06/2021 3 Diabetic foot ulcer 12/21/2013 11/03/20 23 diabetes 05/17/2023 Arthritis 05/17/2023 documented as of this encounter (statuses as of 01/11/2024) [facility] History of Past illness Narrative* Problem Noted Date Diagnosed Date Resolved Date Difficulty walking 05/06/2021 3 Diabetic foot ulcer 12/21/2013 11/03/20 23 diabetes 05/17/2023 Arthritis 05/17/2023 documented as of this encounter (statuses as of 01/27/2024) [facility] History of Past illness Narrative* Problem Noted Date Diagnosed Date Resolved Date Difficulty walking 05/06/2021 3 Diabetic foot ulcer 12/21/2013 11/03/20 23 diabetes 05/17/2023 Arthritis 05/17/2023 documented as of this encounter (statuses as of 03/01/2024) [facility] [place] [facility] Diagnosis Charcot's joint of right ankle- Primary Leg abscess Cellulitis and abscess of leg, except foot [facility] Osteonecrosis (HCC)- Primary Aseptic necrosis of bone, site unspecified Charcot ankle, right [facility] Diagnosis Osteonecrosis (HCC)- Primary Aseptic necrosis of bone, site unspecified Charcot ankle, right Retained orthopedic hardware Other postprocedural status [facility]* Diagnosis Osteonecrosis (HCC)- Primary Aseptic necrosis of bone, site unspecified Charcot ankle, right Retained orthopedic hardware Other postprocedural status Deformity of ankle joint, right Osteonecrosis (HCC) Aseptic necrosis of bone, site unspecified Charcot ankle, right Retained orthopedic hardware Other postprocedural status Deformity of ankle joint, right [facility] [place] [facility]* Diagnosis Charcot ankle, right- Primary Osteonecrosis (HCC) Aseptic necrosis of bone, site unspecified Charcot ankle, right Retained orthopedic hardware Other postprocedural status Deformity of ankle joint, right [facility] [place] [facility]* Diagnosis PAD (peripheral artery disease) (HCC)- [...] ankle joint, right [facility] [place] [facility]* Diagnosis Pre-op exam- Primary Preoperative examination, [...] ankle joint, right [facility] [place] [facility]* Diagnosis Preoperative cardiovascular examination Pre-operative cardiovascular examination Osteonecrosis (HCC) Aseptic necrosis of bone, site unspecified Charcot ankle, right Retained orthopedic hardware Other postprocedural status Deformity of ankle joint, right [facility] [place] [facility]* Diagnosis Charcot ankle, right- Primary [facility] [place] [facility]* Diagnosis Charcot ankle, right- Primary Arthritis Arthropathy, unspecified, site unspecified [facility] [place] [facility]* Diagnosis Charcot ankle, right- Primary [facility] [place] [facility]* Diagnosis Charcot ankle, right [facility] [place] [facility]* Diagnosis Charcot ankle, right [facility] [place] [facility]* Diagnosis Disorder of bone- Primary Disorder of bone and cartilage, unspecified Charcot ankle, right [facility] [place] [facility]* Diagnosis Charcot ankle, right [facility] [place] [facility]* Diagnosis Disease of bone- Primary Disorder of bone and cartilage, unspecified documented in this encounter [facility] note* Diagnosis Diabetes mellitus due to underlying condition with diabetic autonomic neuropathy, with long-term current use of insulin (HCC)- Primary Post-op pain Other acute postoperative pain Charcot ankle, right Osteonecrosis (HCC) Aseptic necrosis of bone, site unspecified documented in this encounter [facility] note* Diagnosis Post-op pain Other acute postoperative pain documented in this encounter [facility] note* Diagnosis Subluxation of right ankle joint, initial encounter Presence of other specified devices Valgus deformity, not elsewhere classified, right ankle Subluxation of right ankle joint, subsequent encounter Subluxation of left ankle joint, subsequent encounter Hyperlipidemia, unspecified Type 2 diabetes mellitus with diabetic peripheral angiopathy without gangrene (CMS/HCC) Unspecified asthma, uncomplicated Type 2 diabetes mellitus with diabetic polyneuropathy (CMS/HCC) Depression, unspecified Irritable bowel syndrome without diarrhea Hypothyroidism, unspecified Unspecified osteoarthritis, unspecified site Unspecified visual loss Unspecified hearing loss, unspecified ear Personal history of nicotine dependence 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 documented in this encounter [facility] Work Phone: Evaluation note* Diagnosis Post-op pain Other acute postoperative pain documented in this encounter [facility] note* Diagnosis Charcot ankle, right documented in this encounter [facility] note* Diagnosis Charcot ankle, right documented in this encounter [facility] note* Diagnosis Charcot ankle, right documented in this encounter [facility] noteNo assessment information availableOhio[facility] Work Phone: Evaluation note* Diagnosis Pre-op exam- Primary Preoperative examination, unspecified Diabetes mellitus type 2 with neurological manifestations (HCC) Type II or unspecified type diabetes mellitus with neurological manifestations, not stated as uncontrolled Former smoker Personal history of tobacco use, presenting hazards to health Intermittent asthma without complication, unspecified asthma severity Osteonecrosis (HCC) Aseptic necrosis of bone, site unspecified Pre-op evaluation- Primary Preoperative examination, unspecified Neuropathy Mononeuritis of unspecified site Recent URI Anxiety Anxiety state, unspecified Acquired hypothyroidism Unspecified hypothyroidism Intermittent asthma without complication, unspecified asthma severity Hypertension, unspecified type Hyperlipidemia, unspecified hyperlipidemia type Diabetes mellitus type 2, insulin dependent (HCC) Type II or unspecified type diabetes mellitus without mention of complication, not stated as uncontrolled documented [facility] this encounter [facility] Diagnosis Achilles tendinitis of right lower extremity Achilles bursitis or tendinitis Chronic pain of right ankle Pre-op exam- Primary Preoperative examination, unspecified Diabetes mellitus type 2 with neurological manifestations (HCC) Type II or unspecified type diabetes mellitus with neurological manifestations, not stated as uncontrolled Former smoker Personal history of tobacco use, presenting hazards to health Intermittent asthma without complication, unspecified asthma severity Pre-op evaluation- Primary Preoperative examination, unspecified Neuropathy Mononeuritis of unspecified site Recent URI Anxiety Anxiety state, unspecified Acquired hypothyroidism Unspecified hypothyroidism Intermittent asthma without complication, unspecified asthma severity Hypertension, unspecified type Hyperlipidemia, unspecified hyperlipidemia type Diabetes mellitus type 2, insulin dependent (HCC) Type II or unspecified type diabetes mellitus without mention of complication, not stated as uncontrolled documented in this encounter [facility] (narrative)* Diagnostic Procedure Only (Routine) - Authorized Specialty Diagnoses / Procedures Referred By Contac t Referred To Contact XR IMAGING Diagnoses Leg abscess Procedures XR TIBIA FIBULA 2V AP/LAT LEFT RADIOLOGIC EXAMINATION TIBIA & FIBULA 2 VIEWS Macario Santos DPM [address] [place] [address] Xr Imaging Referral ID Status Reason Start Date Expiration Date Visits Requested Visits Authorized [id number] Authorized Auto-Generat ed Referral 04/20/2023 05/19/2024 1 1 * Diagnostic Procedure Only (Routine) - Authorized Specialty Diagnoses / Procedures Referred By Contac t Referred To Contact XR IMAGING Diagnoses Charcot's joint of right ankle Procedures XR ANKLE GENERAL 3V AP/LAT/OBL RIGHT RADEX ANKLE COMPLETE MINIMUM 3 VIEWS Macario Santos DPM [address] [place] [id number] Xr Imaging Referral ID Status Reason Start Date Expiration Date Visits Requested Visits Authorized [id number] Authorized Auto-Generat ed Referral 04/20/2023 05/19/2024 1 1 [facility] for referral (narrative)* Diagnostic Procedure Only (Routine) - Authorized Specialty Diagnoses / Procedures Referred By [facility] Referred To Contact MOLECULAR & FUNCTIONAL IMAGING Diagnoses Preoperative cardiovascular examination Procedures NM CARDIAC PERF STRESS/PHARM MYOCARDIAL SPECT MULTIPLE STUDIES Dana Goyal MD [id number] [place] [address]. [place] [address] Molecular & Functional Imaging [address] [place] [address] Referral ID Status Reason Start Date Expiration Date Visits Requested Visits Authorized [id number] Authorized Auto-Generat ed Referral 05/07/2023 06/05/2024 1 1 * Outpatient Procedure (Routine) - Authorized Specialty Diagnoses / Procedures Referred By [facility] Referred To Contact [facility] [place] Diagnoses PAD (peripheral artery disease) (HCC) Procedures US LEG ARTERIAL PERIPH [facility] DUP-SCAN LXTR ART/ARTL BPGS COMPL BI STUDY Dana Goyal [place] [id number] [place] [address]. [place] [address] [facility] [address] [address] Referral ID Status Reason Start Date Expiration Date Visits Requested Visits Authorized [id number] Authorized Auto-Generat ed Referral 05/07/2023 05/06/2024 1 1 * Outpatient Procedure (Routine) - Authorized Specialty Diagnoses / Procedures Referred By [facility] Referred To Contact [facility] [place] Diagnoses PAD (peripheral artery disease) (HCC) Procedures PVR LEG [facility] NON-INVASIVE PHYSIOLOGIC STUDY EXTREMITY 3 LEVLS Dana Goyal MD [id number] [place] [address]. [place] [address] [facility] [address] [address] Referral ID Status Reason Start Date Expiration Date Visits Requested Visits Authorized [id number] Authorized Auto-Generat ed Referral 05/07/2023 05/06/2024 1 1 [facility] for referral (narrative)* Diagnostic Procedure Only (Routine) - Closed Specialty Diagnoses / Procedures Referred By Contac t Referred To Contact MOLECULAR & FUNCTIONAL IMAGING Diagnoses Preoperative cardiovascular examination Procedures NM CARDIAC PERF STRESS/PHARM MYOCARDIAL [place] [address] [place] [address] Molecular & Functional Imaging [address] [place] [address] Referral ID Status Reason Start Date Expiration Date V isits Requested Visits Authorized [id number] Closed Auto-Generate d Referral 05/07/2023 06/05/2024 1 1 [facility] for referral (narrative)* Diagnostic Procedure Only (Routine) - Authorized Specialty Diagnoses / Procedures Referred By Contac t Referred To Contact XR IMAGING Diagnoses Charcot ankle, right Procedures XR ANKLE GENERAL 3V AP/LAT/OBL RIGHT RADEX ANKLE COMPLETE MINIMUM 3 VIEWS Macario Santos DPM [address] [place] [address] Xr Imaging Referral ID Status Reason Start Date Expiration Date Visits Requested Visits Authorized [id number] Authorized Auto-Generat ed Referral 06/04/2023 07/03/2024 1 1 [facility] for referral (narrative)* Diagnostic Procedure Only (Routine) - Authorized Specialty Diagnoses / Procedures Referred By Contac t Referred To Contact XR IMAGING Diagnoses Disease of bone Procedures XR ANKLE GENERAL 3V AP/LAT/OBL RIGHT RADEX ANKLE COMPLETE MINIMUM 3 VIEWS Macario Santos DPM [address] [place] [address] [place] [address] Referral ID Status Reason Start Date Expiration Date Visits Requested Visits Authorized [id number] Authorized Auto-Generat ed Referral 07/28/2023 08/26/2024 1 1 [facility] for referral (narrative)* Diagnostic Procedure Only (Routine) - Pending Review Specialty Diagnoses / Procedures Referred By Contac t Referred To Contact XR IMAGING Diagnoses Diabetes mellitus due to underlying condition with diabetic autonomic neuropathy, with long-term current use of insulin (HCC) Procedures XR FOOT GENERAL 3V AP/LAT/OBL BILATERAL RADEX FOOT COMPLETE MINIMUM 3 VIEWS Macario Santos DPM [address] [place] [phone] Xr Imaging [facility] Referral ID Status Reason Start Date Expiration Date Visits Requested Visits Authorized [id number] Pending Review Auto-Generat ed Referral 10/05/2024 1 1 * Diagnostic Procedure Only (Routine) - Closed Specialty Diagnoses / Procedures Referred By Contac t Referred To Contact XR IMAGING Diagnoses Diabetes mellitus due to underlying condition with diabetic autonomic neuropathy, with long-term current use of insulin (HCC) Procedures XR ANKLE GENERAL 3V AP/LAT/OBL RIGHT RADEX ANKLE COMPLETE MINIMUM 3 VIEWS Macario Santos DPM [address] [place] [address] Xr Imaging [facility] Referral ID Status Reason Start Date Expiration Date V isits Requested Visits Authorized [id number] Closed Auto-Generate d Referral 08/30/2023 09/28/2024 1 1 [facility] for visit Narrative* Diagnostic Procedure Only (Routine) - Closed Specialty Diagnoses / Procedures Referred By Contac t Referred To Contact XR IMAGING Diagnoses Charcot ankle, right Procedures XR ANKLE GENERAL 3V AP/LAT/OBL RIGHT RADEX ANKLE COMPLETE MINIMUM 3 VIEWS Macario Santos DPM [address] [place] [address] [place] [address] Referral ID Status Reason Start Date Expiration Date V isits Requested Visits Authorized [id number] Closed Auto-Generate d Referral 07/08/2023 07/06/2024 1 1 [facility] Summary Purpose Family History Mother Name Dates Details Family history of [...] Z82.49) Status:Active Family history of diabetes m harmanitus(V18.0, Z83.3) Status:Active Advance Directives No Advanced Directives Records FoundNo Advanced Directives Records FoundNo Advanced Directives Records FoundNo Advanced Directives Records FoundNo Advanced Directives Records FoundNo Advanced Directives Records FoundNo Advanced Directives Records FoundNo Advanced Directives Records FoundNo Advanced Directives Records FoundNo Advanced Directives Records Found Assessments Diagnosis Pain- Primary Generalized pain Reason for Referral Specialty Diagnoses / Procedures Referred By Contac t Referred To Contact CT IMAGING Diagnoses Osteonecrosis (HCC) Procedures CT ANKLE WO IVCON RIGHT CT LOWER EXTREMITY W/O CONTRAST MATERIAL Macario Santos DPM [phone] Imaging Referral ID Status Reason Start Date Expiration Date V isits Requested Visits Authorized [id number] Closed Auto-Generate d Referral 04/22/2023 05/21/2024 1 1 Specialty Diagnoses / Procedures Referred By Contac t Referred To Contact Cardiology Diagnoses Charcot ankle, right Procedures CONSULT TO CARDIOLOGY Macario Santos DPM [address] [place] [phone] [place] [address] [place] [id number] Referral ID Status Reason Start Date Expiration Date Visits Requested Visits Authorized [id number] Ref Not Required PCP Requested Referral 05/05/2023 05/04/2024 1 1 Specialty Diagnoses / Procedures Referred By Contac t Referred To Contact MR IMAGING Diagnoses Disorder of bone Procedures MRI ANKLE WO IVCON LEFT MRI ANY JT LOWER EXTREM W/O CONTRAST MATRL Macario Santos DPM [address] [place] [address] Mr Imaging [facility] Referral ID Status Reason Start Date Expiration Date Visits Requested Visits Authorized [id number] Authorized Auto-Generat ed Referral 07/02/2023 07/31/2024 1 1 Specialty Diagnoses / Procedures Referred By Contac t Referred To Contact XR IMAGING Diagnoses Disorder of bone Procedures XR ANKLE GENERAL 3V AP/LAT/OBL LEFT RADEX ANKLE COMPLETE MINIMUM 3 VIEWS Macario Santos, FLASH [address] [place] [address] [place] [address] Referral ID Status Reason Start Date Expiration Date Visits Requested Visits Authorized [id number] Pending Review Auto-Generat ed Referral 07/02/2023 07/31/2024 1 1 Specialty Diagnoses / Procedures Referred By Contac t Referred To Contact CT IMAGING Diagnoses Osteonecrosis (HCC) Procedures CT ANKLE WO IVCON RIGHT CT LOWER EXTREMITY W/O CONTRAST MATERIAL Macario Santos, FLASH [address] [address] [place] [phone] Ct Imaging [facility] Referral ID Status Reason Start Date Expiration Date V isits Requested Visits Authorized [id number] Closed Auto-Generate d Referral 10/11/2023 11/09/2024 1 1 Additional Source Comments INFORMATION SOURCE (unrecogn ized section and content) DATE CREATED AUTHOR 05/05/2018 [facility] DATE CREATED AUTHOR AUTHOR'S ORGANIZ ATION 02/23/2020 [facility] DATE CREATED AUTHOR AUTHOR'S ORGANIZ ATION 02/11/2021 [facility] DATE CREATED AUTHOR AUTHOR'S ORGANIZ ATION 03/29/2023 [facility] DATE CREATED AUTHOR AUTHOR'S ORGANIZ ATION 07/28/2023 [facility] DATE CREATED AUTHOR AUTHOR'S ORGANIZ ATION 12/07/2023 [facility] DATE CREATED AUTHOR AUTHOR'S ORGANIZ ATION 01/18/2024 [facility] DATE CREATED AUTHOR AUTHOR'S ORGANIZ ATION 03/18/2024 [facility] DATE CREATED AUTHOR AUTHOR'S ORGANIZ ATION 08/12/2024 [facility] DATE CREATED AUTHOR AUTHOR'S ORGANIZ ATION 08/17/2024 [facility] Source Comments (unrecognize d section and content) In the event this informatio n is protected by the Federal Confidentiality of Alcohol and Drug Abuse Patient Records regulations: The Federal rules restrict any use of the information to criminally investigate or prosecute any alcohol or drug abuse patient.[facility] Hospital[facility] the event this information is protected by the Federal Confidentiality of Alcohol and Drug Abuse Patient Records regulations: The Federal rules restrict any use of the information to criminally investigate or prosecute any alcohol or drug abuse patient.[facility] HospitalIn the event this information is protected by the Federal Confidentiality of Alcohol and Drug Abuse Patient Records regulations: The Federal rules restrict any use of the information to criminally investigate or prosecute any alcohol or drug abuse patient.[facility] HospitalIn the event this information is protected by the Federal Confidentiality of Alcohol and Drug Abuse Patient Records regulations: The Federal rules restrict any use of the information to criminally investigate or prosecute any alcohol or drug abuse patient.[facility] HospitalIn the event this information is protected by the Federal Confidentiality of Alcohol and Drug Abuse Patient Records regulations: The Federal rules restrict any use of the information to criminally investigate or prosecute any alcohol or drug abuse patient.[facility] HospitalIn the event this information is protected by the Federal Confidentiality of Alcohol and Drug Abuse Patient Records regulations: The Federal rules restrict any use of the information to criminally investigate or prosecute any alcohol or drug abuse patient.[facility] HospitalIn the event this information is protected by the Federal Confidentiality of Alcohol and Drug Abuse Patient Records regulations: The Federal rules restrict any use of the information to criminally investigate or prosecute any alcohol or drug abuse patient.[facility] HospitalIn the event this information is protected by the Federal Confidentiality of Alcohol and Drug Abuse Patient Records regulations: The Federal rules restrict any use of the information to criminally investigate or prosecute any alcohol or drug abuse patient.[facility] HospitalIn the event this information is protected by the Federal Confidentiality of Alcohol and Drug Abuse Patient Records regulations: The Federal rules restrict any use of the information to criminally investigate or prosecute any alcohol or drug abuse patient.[facility] HospitalIn the event this information is protected by the Federal Confidentiality of Alcohol and Drug Abuse Patient Records regulations: The Federal rules restrict any use of the information to criminally investigate or prosecute any alcohol or drug abuse patient.[facility] HospitalIn the event this information is protected by the Federal Confidentiality of Alcohol and Drug Abuse Patient Records regulations: The Federal rules restrict any use of the information to criminally investigate or prosecute any alcohol or drug abuse patient.[facility] HospitalIn the event this information is protected by the Federal Confidentiality of Alcohol and Drug Abuse Patient Records regulations: The Federal rules restrict any use of the information to criminally investigate or prosecute any alcohol or drug abuse patient.[facility] HospitalIn the event this information is protected by the Federal Confidentiality of Alcohol and Drug Abuse Patient Records regulations: The Federal rules restrict any use of the information to criminally investigate or prosecute any alcohol or drug abuse patient.[facility] HospitalIn the event this information is protected by the Federal Confidentiality of Alcohol and Drug Abuse Patient Records regulations: The Federal rules restrict any use of the information to criminally investigate or prosecute any alcohol or drug abuse patient.[facility] HospitalIn the event this information is protected by the Federal Confidentiality of Alcohol and Drug Abuse Patient Records regulations: The Federal rules restrict any use of the information to criminally investigate or prosecute any alcohol or drug abuse patient.[facility] HospitalIn the event this information is protected by the Federal Confidentiality of Alcohol and Drug Abuse Patient Records regulations: The Federal rules restrict any use of the information to criminally investigate or prosecute any alcohol or drug abuse patient.[facility] HospitalIn the event this information is protected by the Federal Confidentiality of Alcohol and Drug Abuse Patient Records regulations: The Federal rules restrict any use of the information to criminally investigate or prosecute any alcohol or drug abuse patient.[facility] HospitalIn the event this information is protected by the Federal Confidentiality of Alcohol and Drug Abuse Patient Records regulations: The Federal rules restrict any use of the information to criminally investigate or prosecute any alcohol or drug abuse patient.[facility] HospitalIn the event this information is protected by the Federal Confidentiality of Alcohol and Drug Abuse Patient Records regulations: The Federal rules restrict any use of the information to criminally investigate or prosecute any alcohol or drug abuse patient.[facility] HospitalIn the event this information is protected by the Federal Confidentiality of Alcohol and Drug Abuse Patient Records regulations: The Federal rules restrict any use of the information to criminally investigate or prosecute any alcohol or drug abuse patient.[facility] HospitalIn the event this information is protected by the Federal Confidentiality of Alcohol and Drug Abuse Patient Records regulations: The Federal rules restrict any use of the information to criminally investigate or prosecute any alcohol or drug abuse patient.[facility] HospitalIn the event this information is protected by the Federal Confidentiality of Alcohol and Drug Abuse Patient Records regulations: The Federal rules restrict any use of the information to criminally investigate or prosecute any alcohol or drug abuse patient.[facility] HospitalIn the event this information is protected by the Federal Confidentiality of Alcohol and Drug Abuse Patient Records regulations: The Federal rules restrict any use of the information to criminally investigate or prosecute any alcohol or drug abuse patient.[facility] HospitalIn the event this information is protected by the Federal Confidentiality of Alcohol and Drug Abuse Patient Records regulations: The Federal rules restrict any use of the information to criminally investigate or prosecute any alcohol or drug abuse patient.[facility] HospitalIn the event this information is protected by the Federal Confidentiality of Alcohol and Drug Abuse Patient Records regulations: The Federal rules restrict any use of the information to criminally investigate or prosecute any alcohol or drug abuse patient.[facility] HospitalIn the event this information is protected by the Federal Confidentiality of Alcohol and Drug Abuse Patient Records regulations: The Federal rules restrict any use of the information to criminally investigate or prosecute any alcohol or drug abuse patient.[facility] HospitalIn the event this information is protected by the Federal Confidentiality of Alcohol and Drug Abuse Patient Records regulations: The Federal rules restrict any use of the information to criminally investigate or prosecute any alcohol or drug abuse patient.[facility] HospitalIn the event this information is protected by the Federal Confidentiality of Alcohol and Drug Abuse Patient Records regulations: The Federal rules restrict any use of the information to criminally investigate or prosecute any alcohol or drug abuse patient.[facility] HospitalIn the event this information is protected by the Federal Confidentiality of Alcohol and Drug Abuse Patient Records regulations: The Federal rules restrict any use of the information to criminally investigate or prosecute any alcohol or drug abuse patient.[facility] HospitalIn the event this information is protected by the Federal Confidentiality of Alcohol and Drug Abuse Patient Records regulations: The Federal rules restrict any use of the information to criminally investigate or prosecute any alcohol or drug abuse patient.[facility] HospitalIn the event this information is protected by the Federal Confidentiality of Alcohol and Drug Abuse Patient Records regulations: The Federal rules restrict any use of the information to criminally investigate or prosecute any alcohol or drug abuse patient.[facility] HospitalIn the event this information is protected by the Federal Confidentiality of Alcohol and Drug Abuse Patient Records regulations: The Federal rules restrict any use of the information to criminally investigate or prosecute any alcohol or drug abuse patient.[facility] HospitalIn the event this information is protected by the Federal Confidentiality of Alcohol and Drug Abuse Patient Records regulations: The Federal rules restrict any use of the information to criminally investigate or prosecute any alcohol or drug abuse patient.[facility] HospitalIn the event this information is protected by the Federal Confidentiality of Alcohol and Drug Abuse Patient Records regulations: The Federal rules restrict any use of the information to criminally investigate or prosecute any alcohol or drug abuse patient.[facility] HospitalIn the event this information is protected by the Federal Confidentiality of Alcohol and Drug Abuse Patient Records regulations: The Federal rules restrict any use of the information to criminally investigate or prosecute any alcohol or drug abuse patient.[facility] HospitalIn the event this information is protected by the Federal Confidentiality of Alcohol and Drug Abuse Patient Records regulations: The Federal rules restrict any use of the information to criminally investigate or prosecute any alcohol or drug abuse patient.[facility] HospitalIn the event this information is protected by the Federal Confidentiality of Alcohol and Drug Abuse Patient Records regulations: The Federal rules restrict any use of the information to criminally investigate or prosecute any alcohol or drug abuse patient.[facility] Care Teams (unrecognized sec tion and content) [employer] Relationship Specialty Start Date End Date Collins Savage Jr., DO PCP - General Family Medicine 12/21/13 [employer] Relationship Specialty Start Date End Date Collins Savage Jr., DO PCP - General Family Medicine 12/21/13 [employer] Relationship Specialty Start Date End Date Collins Savage Jr., DO PCP - General Family Medicine 12/21/13 [employer] Relationship Specialty Start Date End Date Collins Savage Jr., DO PCP - General Family Medicine 12/21/13 [employer] Relationship Specialty Start Date End Date Collins Savage Jr., DO PCP - General Family Medicine 12/21/13 [employer] Relationship Specialty Start Date End Date Collins Savage Jr., DO PCP - General Family Medicine 12/21/13 [employer] Relationship Specialty Start Date End Date Collins Andrews MD [address] [place] [id number] PCP - General Internal Medicine 05/06/23 [employer] Relationship Specialty Start Date End Date Collins Andrews MD [address] [place] [address] [id number] PCP - General Internal Medicine 05/06/23 [employer] Relationship Specialty Start Date End Date Collins Andrews MD [address] [place] [address] [id number] PCP - General Internal Medicine 05/06/23 [employer] Relationship Specialty Start Date End Date Collins Andrews MD [address] [place] [address] [id number] PCP - General Internal Medicine 05/06/23 [employer] Relationship Specialty Start Date End Date Collins Andrews MD [address] [place] [address] [id number] PCP - General Internal Medicine 05/06/23 [employer] Relationship Specialty Start Date End Date Collins Andrews MD [address] [place] [address] [id number] PCP - General Internal Medicine 05/06/23 [employer] Relationship Specialty Start Date End Date Collins Andrews MD [address] [place] [address] [id number] PCP - General Internal Medicine 05/06/23 [employer] Relationship Specialty Start Date End Date Collins Andrews MD [address] [place] [address] [id number] PCP - General Internal Medicine 05/06/23 [employer] Relationship Specialty Start Date End Date Collins Andrews MD [address] [place] [address] [id number] PCP - General Internal Medicine 05/06/23 [employer] Relationship Specialty Start Date End Date Collins Andrews MD [address] [place] [address] [id number] PCP - General Internal Medicine 05/06/23 [employer] Relationship Specialty Start Date End Date Collins Andrews MD [address] [place] [address] [id number] PCP - General Internal Medicine 05/06/23 [employer] Relationship Specialty Start Date End Date Collins Andrews MD [address] [place] [address] [id number] PCP - General Internal Medicine 05/06/23 [employer] Relationship Specialty Start Date End Date Collins Andrews MD [address] [place] [address] [id number] PCP - General Internal Medicine 05/06/23 [employer] Relationship Specialty Start Date End Date Collins Andrews MD [address] [place] [address] [id number] PCP - General Internal Medicine 05/06/23 [employer] Relationship Specialty Start Date End Date Collins Andrews MD [address] [place] [address] [id number] PCP - General 02/13/21 [employer] Relationship Specialty Start Date End Date Collins Andrews MD PCP - General Internal Medicine 05/06/23 [employer] Relationship Specialty Start Date End Date Collins Andrews MD PCP - General Internal Medicine 05/06/23 [employer] Relationship Specialty Start Date End Date Collins Andrews MD PCP - General Internal Medicine 05/06/23 Team Status: Inactive Member Role Status Dates Zuhair Grubbs DPM MS Attending Provider Active Start: March 09, 2024 End: March 09, 2024 [employer] Relationship Specialty Start Date End Date Collins Andrews MD PCP - General Internal Medicine 05/06/23 [employer] Relationship Specialty Start Date End Date Collins Savage Jr., DO PCP - General Family Medicine 12/21/13 05/05/23 Reason for Visit (unrecogniz ed section and [...] MYOCARDIAL [place] [id number] [place] [address] Molecular & Functional Imaging [address] [place], [place] [id number] Referral ID Status Reason Start Date Expiration Date V isits Requested Visits Authorized [id number] Closed Auto-Generate d Referral 05/07/2023 06/05/2024 1 [...] Reason Onset Date Comments Refill Request 02/28/[address] Specialty Diagnoses / Procedures Referred By Perla t Referred To Contact CT IMAGING Diagnoses Osteonecrosis (HCC) Procedures CT ANKLE WO IVCON RIGHT CT LOWER EXTREMITY W/O CONTRAST MATERIAL Macario Santos DPM [id number] [place] [id number] [place] [id number] Referral ID Status Reason Start Date Expiration Date V isits Requested Visits Authorized [id number] Closed Auto-Generate d Referral 10/11/2023 11/09/2024 1 1 Reason Comments Radiology MRI Goals (unrecognized section and content) Goals may [...] BE BASED ON THE PRIMARY CLINICAL RECORDS. [employer] provides no warranty or guarantee of the accuracy or completeness of information in this document.
== END 2024-09-06 10:05 | disposition home or self-care (01) ==
PROVIDERS: Visit Provider Podiatrist Foot & Ankle Surgery
DX: M25.571 Pain in right ankle and joints of right foot (principal); M79.671 Pain in right foot; M24.674 Ankylosis, right foot
CPT/HCPCS: 73610; 73630

== ENCOUNTER 2024-10-24 09:59 | Outpatient (OUT) | payer MEDICARE, MEDICAID, SELFPAY ==
--- NOTE | 2024-10-24 10:05 | CT_ITS ---
The [address] [address] Patient Name: BILLY SEXTON MRN: [id number] date: 1960 Sex: F Assigned Patient Location: CT Current Patient Location: Accession/Order Number: [id number] Exam Date: 10/24/2024 10:32 Report Date: 10/25/2024 05:42 At the request of: BROOKS GONZALES Procedure: CT ankle RT wo con EXAMINATION: CT ankle RT wo con HISTORY: [place] COMPARISON: No relevant comparison available. TECHNIQUE: Multi-planar CT images were created without and/or with IV contrast according to examination type. Dose reduction techniques were achieved by using automated exposure control and/or adjustment of mA and/or kV according to patient size and/or use of iterative reconstruction technique. FINDINGS: BONES: XR ankle and hindfoot fusion via intramedullary jennifer and locking screws. The jennifer extends below the plantar surface of the calcaneus; unchanged. Multiple fractured screws within the hindfoot and midfoot; unchanged. Increased lucency around the remaining screws within the ankle and hindfoot suggesting movement. Plate and screws along the plantar surface of the midfoot are stable without evidence of loosening, with stable prior fracture of the most distal screw. 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 Masslike opacity dorsal to the proximal midfoot; possibly representing a bone graft. SOFT TISSUES: Prominent soft tissue swelling surrounding the foot and ankle. EFFUSION: None visible. OTHER: Negative. CT/CT ankle RT wo con IMPRESSION: 1. Stable advanced degenerative changes. 2. Increased lucency surrounding the larger screws within the ankle joint and hindfoot compatible with movement. Otherwise stable surgical changes and known hardware fractures. Electronically authenticated by: JOHN RAUSCH Date: 10/25/2024 05:42
== END 2024-10-24 10:00 | disposition home or self-care (01) ==
LOC: CT 10:00
PROVIDERS: Visit Provider Podiatrist Foot & Ankle Surgery
DX: M14.671 Charcot's joint, right ankle and foot (principal); M24.671 Ankylosis, right ankle
CPT/HCPCS: 73700

== ENCOUNTER 2024-12-13 10:04 | Outpatient (OUT) | payer MEDICARE, MEDICAID, SELFPAY ==
--- NOTE | 2024-12-13 10:20 | XR_ITS ---
The [place] [id number] Patient Name: BILLY SEXTON MRN: [id number] date: 1960 Sex: F Assigned Patient Location: [facility] Current Patient Location: Accession/Order Number: [id number] Exam Date: 12/13/2024 10:08 Report Date: 12/15/2024 06:37 At the request of: BROOKS GONZALES Procedure: XR tibia fibula RT 2V PROCEDURE: XR tibia fibula RT 2V, XR ankle RT min 3V HISTORY: Right Lower Extremity Pain COMPARISON: None. FINDINGS: BONES:Advanced degenerative changes ankle joint and midfoot with prior medullary jennifer placement and locking screws; jennifer extends below the calcaneus; slightly greater than previously seen. Plate and screws along the plantar surface of the midfoot with fracture of the most anterior screw, unchanged. Numerous screw fragments within the midfoot. Lucency surrounding the tibial component of the 2 lag screws fixating the tibial-talar joint. Mild lucency surrounding the distal tibial component of the medullary jennifer. Complete loss of plantar arch. Resection of lateral malleolus. SOFT TISSUES:Soft tissue swelling surrounding the foot and ankle. EFFUSION:None visible. OTHER: Negative. XR/XR tibia fibula RT 2V IMPRESSION: 1. 1. Extensive surgical changes and degenerative changes of the foot and ankle with findings suspicious for hardware movement. Electronically authenticated by: JOHN RAUSCH Date: 12/15/2024 06:37
--- NOTE | 2024-12-13 10:20 | XR_ITS ---
The [place] [id number] Patient Name: BILLY SEXTON MRN: [id number] date: 1960 Sex: F Assigned Patient Location: [facility] Current Patient Location: Accession/Order Number: [id number] Exam Date: 12/13/2024 10:08 Report Date: 12/15/2024 06:37 At the request of: BROOKS GONZALES Procedure: XR ankle RT min 3V PROCEDURE: XR tibia fibula RT 2V, XR ankle RT min 3V HISTORY: Right Lower Extremity Pain COMPARISON: None. FINDINGS: BONES:Advanced degenerative changes ankle joint and midfoot with prior medullary jennifer placement and locking screws; jennifer extends below the calcaneus; slightly greater than previously seen. Plate and screws along the plantar surface of the midfoot with fracture of the most anterior screw, unchanged. Numerous screw fragments within the midfoot. Lucency surrounding the tibial component of the 2 lag screws fixating the tibial-talar joint. Mild lucency surrounding the distal tibial component of the medullary jennifer. Complete loss of plantar arch. Resection of lateral malleolus. SOFT TISSUES:Soft tissue swelling surrounding the foot and ankle. EFFUSION:None visible. OTHER: Negative. XR/XR ankle RT min 3V IMPRESSION: 1. 1. Extensive surgical changes and degenerative changes of the foot and ankle with findings suspicious for hardware movement. Electronically authenticated by: JOHN RAUSCH Date: 12/15/2024 06:37
== END 2024-12-13 10:05 | disposition home or self-care (01) ==
LOC: RAD 10:04
PROVIDERS: Visit Provider Podiatrist Foot & Ankle Surgery
DX: M25.571 Pain in right ankle and joints of right foot (principal); Z96.7 Presence of other bone and tendon implants
CPT/HCPCS: 73590; 73610